=== PATIENT | male | born 1940 | race Caucasian/White ===

== ENCOUNTER → 2023-02-26 | Outpatient (CLI) | payer MEDICARE, SELFPAY ==
[2023-02-26 12:13] LABS: Absolute Lymphocyte Count 1.07 X10^3/uL (0.83-4.51); Absolute Neutrophil Count 5.6 X10^3/uL (2.0-7.7); Basophil# 0.02 X10^3/uL; Basophil% 0.3 % (0-1); Eosinophil# 0.11 X10^3/uL; Eosinophils% 1.5 % (0-5); Hematocrit 45.6 % (40-54); Hemoglobin 14.5 g/dL (13.0-16.5); Lymphocyte # 1.07 X10^3/ul (0.83-4.51); Lymphocyte % 14.2 % (19-41); Mean Corp Hgb Conc 31.8 g/dL (32-36); Mean Corpuscular Hgb 31.5 pg (27.0-32.0); Mean Corpuscular Volume 99.1 fL (80-94); Mean Platelet Vol. 10.2 fl (6.2-12.0); Monocyte# 0.78 X10^3/uL; Monocyte% 10.3 % (0-10); NRBC Flagged by Analyzer 0 % (0-5); Neutrophil # 5.55 X10^3/uL (2.7-7.7); Neutrophil % 73.4 % (47-70); POSITIVE COUNT YES; Platelet Count 98 K/mm3 (150-450); RBC Distribution Width CV 13.1 % (11.6-14.6); RBC Distribution Width SD 47.4 fl (35.1-43.9); White Blood Count 7.6 K/mm3 (4.4-11.0)
[2023-02-26 12:15] LABS: Differential Indicated SCAN CRITERIA MET
[2023-02-26 12:55] LABS: AST(SGOT) 17 U/L (15-37); Alanine Aminotransfer ALT/SGPT 24 U/L (16-61); Albumin, Serum 3.7 g/dL (3.2-5.0); Alkaline Phosphatase 75 U/L (45-117); Anion Gap 9 (5-15); BUN 17 mg/dL (7-18); BUN/Creat Ratio 13.1 RATIO (10-20); Calcium,Total 9.7 mg/dL (8.5-10.1); Chloride 105 mmol/L (98-107); Cholesterol 109 mg/dL (200); EST Glomerular Filtration Rate 56 mL/min (>60); Est Glom Filt Rate - Afr Amer 68 mL/min (>60); Globulin 3.6 g/dL (2.2-4.2); Glucose 128 mg/dL (74-106); High Density Lipoprotein 36 mg/dL; Potassium 3.7 mmol/L (3.5-5.1); Protein, Total 7.3 g/dL (6.4-8.2); Sodium Level 140 mmol/L (136-145); Thyroid Stim Hormone (TSH) 1.01 uIU/mL (0.358-3.74); Triglycerides 119 mg/dL; Very Low Density Lipoprotein 24 mg/dL (5-40)
[2023-02-26 13:26] LABS: Hemoglobin A1c 6.1 % (3.8-5.6)
[2023-02-26 13:35] LABS: Differential Comment SCANNED; Platelet Estimate MOD DEC (ADEQ)
== END | disposition home or self-care (01) ==
LOC: BIMLAB 08:33
PROVIDERS: PCP Internal Medicine; Referring Provider Nurse Practitioner; Visit Provider Nurse Practitioner
DX: E03.9 Hypothyroidism, unspecified (principal); E11.9 Type 2 diabetes mellitus without complications
CPT/HCPCS: 36415; 80053; 80061; 83036; 84443; 85025

== ENCOUNTER → 2023-04-12 | Outpatient (CLI) | payer MEDICARE, SELFPAY ==
[2023-04-12 15:08] LABS: Bacteria 0 SEEN /hpf (None Seen); Mucous, Urine 0 SEEN /hpf (<or=2+); Red Blood Cells-Urine 0 SEEN /hpf (0-5); Squamous Epithelial Cells - UA 0 SEEN /hpf (0-5)
[2023-04-12 16:53] LABS: Color, Urine Yellow (Yellow); Glucose, Dipstick Normal (Normal); Ketone-Dipstick 5 mg/dl (Negative); Leukocyte Esterase-Dipstick Negative /ul (Negative); Nitrite-Dipstick Negative (Negative); Occult Blood-Urine Negative /ul (Negative); Protein-Dipstick 30 mg/dl (Negative); Specific Gravity, Urine 1.025 (1.002-1.030); Urine Bilirubin Dipstick Negative (Negative); Urine Clarity Sl. Cloudy (Clear); Urine Urobilinogen 1 mg/dl (Normal)
[2023-04-12 17:14] LABS: White Blood Cells 0-5 SEEN /hpf (0-5)
== END | disposition home or self-care (01) ==
LOC: LABSPEC 15:07
PROVIDERS: PCP Internal Medicine; Visit Provider Internal Medicine
DX: E11.9 Type 2 diabetes mellitus without complications (principal)
CPT/HCPCS: 81001; 82043; 82570

== ENCOUNTER → 2023-05-24 | Outpatient (CLI) | payer MEDICARE, SELFPAY ==
[2023-05-24 15:25] LABS: Absolute Lymphocyte Count 1.12 X10^3/uL (0.83-4.51); Absolute Neutrophil Count 5.2 X10^3/uL (2.0-7.7); Basophil# 0.03 X10^3/uL; Basophil% 0.4 % (0-1); Eosinophil# 0.15 X10^3/uL; Hematocrit 43.7 % (40-54); Hemoglobin 14.2 g/dL (13.0-16.5); Lymphocyte # 1.12 X10^3/ul (0.83-4.51); Lymphocyte % 14.9 % (19-41); Mean Corp Hgb Conc 32.5 g/dL (32-36); Mean Corpuscular Hgb 31.5 pg (27.0-32.0); Mean Corpuscular Volume 96.9 fL (80-94); Mean Platelet Vol. 10.2 fl (6.2-12.0); Monocyte# 0.96 X10^3/uL; Monocyte% 12.7 % (0-10); NRBC Flagged by Analyzer 0 % (0-5); Neutrophil # 5.23 X10^3/uL (2.7-7.7); Neutrophil % 69.5 % (47-70); Platelet Count 115 K/mm3 (150-450); RBC Distribution Width CV 12.9 % (11.6-14.6); RBC Distribution Width SD 46.1 fl (35.1-43.9); Red Blood Count 4.51 M/mm3 (4.6-6.2); White Blood Count 7.5 K/mm3 (4.4-11.0)
[2023-05-24 15:41] LABS: Magnesium 1.8 mg/dL (1.6-2.6); PSA,Total- Diagnostic 6.69 ng/mL (0.0-4.0)
[2023-05-24 16:07] LABS: Vitamin D,25 Hydroxy 41.6 ng/mL
== END | disposition home or self-care (01) ==
LOC: BIMLAB 13:59
PROVIDERS: PCP Internal Medicine; Referring Provider Internal Medicine; Visit Provider Internal Medicine
DX: E55.9 Vitamin D deficiency, unspecified (principal); E11.9 Type 2 diabetes mellitus without complications; N40.0 Benign prostatic hyperplasia without lower urinary tract symptoms
CPT/HCPCS: 36415; 82306; 83735; 84153; 85025

== ENCOUNTER → 2023-08-23 | Outpatient (CLI) | payer MEDICARE, SELFPAY ==
[2023-08-23 15:11] LABS: PSA,Total- Diagnostic 6.91 ng/mL (0.0-4.0)
== END | disposition home or self-care (01) ==
LOC: BIMLAB 14:08
PROVIDERS: PCP Internal Medicine; Referring Provider Internal Medicine; Visit Provider Internal Medicine
DX: N40.0 Benign prostatic hyperplasia without lower urinary tract symptoms (principal)
CPT/HCPCS: 36415; 84153

== ENCOUNTER → 2023-11-24 | Outpatient (CLI) | payer MEDICARE, SELFPAY ==
[2023-11-24 15:16] LABS: Absolute Lymphocyte Count 0.87 X10^3/uL (0.83-4.51); Absolute Neutrophil Count 5.8 X10^3/uL (2.0-7.7); Basophil# 0.02 X10^3/uL; Basophil% 0.3 % (0-1); Eosinophil# 0.06 X10^3/uL; Eosinophils% 0.8 % (0-5); Hematocrit 45.1 % (40-54); Lymphocyte # 0.87 X10^3/ul (0.83-4.51); Lymphocyte % 11.3 % (19-41); Mean Corp Hgb Conc 33.3 g/dL (32-36); Mean Corpuscular Hgb 31.9 pg (27.0-32.0); Monocyte# 0.89 X10^3/uL; Monocyte% 11.6 % (0-10); NRBC Flagged by Analyzer 0 % (0-5); Neutrophil # 5.82 X10^3/uL (2.7-7.7); Neutrophil % 75.6 % (47-70); Platelet Count 109 K/mm3 (150-450); RBC Distribution Width CV 12.7 % (11.6-14.6); RBC Distribution Width SD 45.1 fl (35.1-43.9); White Blood Count 7.7 K/mm3 (4.4-11.0)
[2023-11-24 16:06] LABS: ALB/GLOB Ratio 1.1 RATIO (0.9-2.4); AST(SGOT) 14 U/L (15-37); Alanine Aminotransfer ALT/SGPT 20 U/L (16-61); Albumin, Serum 3.9 g/dL (3.2-5.0); Alkaline Phosphatase 69 U/L (45-117); Anion Gap 7 (5-15); BUN 18 mg/dL (7-18); BUN/Creat Ratio 14.5 RATIO (10-20); Calcium,Total 9.7 mg/dL (8.5-10.1); Chloride 105 mmol/L (98-107); Cholesterol 111 mg/dL (200); Creatinine, Serum 1.24 mg/dL (0.70-1.30); EST Glomerular Filtration Rate 59 mL/min (>60); Est Glom Filt Rate - Afr Amer 72 mL/min (>60); Globulin 3.4 g/dL (2.2-4.2); Glucose 113 mg/dL (74-106); High Density Lipoprotein 45 mg/dL; Potassium 4.3 mmol/L (3.5-5.1); Protein, Total 7.3 g/dL (6.4-8.2); Sodium Level 139 mmol/L (136-145); Triglycerides 109 mg/dL; Very Low Density Lipoprotein 22 mg/dL (5-40)
== END | disposition home or self-care (01) ==
LOC: BIMLAB 14:15
PROVIDERS: PCP Internal Medicine; Referring Provider Physician Assistant; Visit Provider Physician Assistant
DX: E11.9 Type 2 diabetes mellitus without complications (principal); E03.9 Hypothyroidism, unspecified
CPT/HCPCS: 36415; 80053; 80061; 84443; 85025

== ENCOUNTER → 2024-02-24 | Outpatient (CLI) | payer MEDICARE, SELFPAY ==
[2024-02-24 17:08] LABS: Hemoglobin A1c 6.4 % (3.8-5.6)
== END | disposition home or self-care (01) ==
LOC: BIMLAB 14:08
PROVIDERS: PCP Internal Medicine; Referring Provider Internal Medicine; Visit Provider Internal Medicine
DX: E11.9 Type 2 diabetes mellitus without complications (principal)
CPT/HCPCS: 36415; 83036; 84443

== ENCOUNTER → 2024-05-11 | Outpatient (CLI) | payer MEDICARE, SELFPAY ==
[2024-05-11 13:12] LABS: PSA,Total- Diagnostic 7.86 ng/mL (0.00-4.00)
== END | disposition home or self-care (01) ==
LOC: MTLAB 11:00
PROVIDERS: PCP Internal Medicine; Referring Provider Nurse Practitioner; Visit Provider Nurse Practitioner
DX: R97.20 Elevated prostate specific antigen [PSA] (principal)
CPT/HCPCS: 36415; 84153

== ENCOUNTER → 2024-05-24 | Outpatient (CLI) | payer MEDICARE, SELFPAY ==
[2024-05-24 17:08] LABS: Thyroid Stim Hormone (TSH) 0.369 uIU/mL (0.300-4.200)
== END | disposition home or self-care (01) ==
LOC: BIMLAB 14:36
PROVIDERS: PCP Internal Medicine; Referring Provider Internal Medicine; Visit Provider Internal Medicine
DX: E03.9 Hypothyroidism, unspecified (principal)
CPT/HCPCS: 36415; 84443

== ENCOUNTER → 2024-05-29 | Outpatient (CLI) | payer MEDICARE, SELFPAY ==
--- NOTE | 2024-05-29 13:00 | PROSBIL_PTH ---
PATIENT: DAMIAN BERMUDEZ LOC: [facility] U#:[id number] AGE/SX: 83/M ROOM: RE05/29/[address]: Dr. Uriel Harvey MD : 1940 BED: DIS: 05/29/2024 SPEC #: [id number] RECD: 05/29/24 16:04 STATUS: BRETT REMI #: [id number] BRITANY: 05/29/24 13:[address]: Uriel Harvey DEPT: SURGICAL PATHOLOGY RECD BY: Danny Harris ENTERED: 05/29/24 16:04 SP TYPE: PROST BX COLLIN DR: Dr. Loni Reeder MD Tissues: A - PROSTATE RIGHT B - PROSTATE RIGHT C - PROSTATE RIGHT D - PROSTATE LEFT E - PROSTATE LEFT F - PROSTATE LEFT Procedures: PROSTATE BX Immunohistochemical Stains HEADER OPERATION: Prostate biopsy PRE-OP DIAGNOSIS: Elevated PSA TISSUE SUBMITTED: A - Right apex, B - Right mid, C - Right base, D - Left apex, E - Left mid, F - Left base MICROSCOPIC DIAGNOSIS A. Prostate, right apex, biopsy: - Benign prostate tissue with atrophy. B. Prostate, right mid, biopsy: - Benign prostate tissue with atrophy C. 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 D. Prostate, left apex, biopsy: - Adenocarcinoma [place] 3+3=6, 1/1 core, involving 15% of the tissue - see Comment. E. Prostate, left mid, biopsy: - Benign prostate tissue with atrophy and mild acute inflammation - IHC for [id number] supports the diagnosis. F. Prostate, left base, biopsy: - Benign prostate tissue COMMENT C, D) The container and block/slide labeling was confirmed. MICROSCOPIC DESCRIPTION Slides are reviewed. All matched controls reacted appropriately. These tests were developed and their performance characteristics determined by [facility]. They may not have been cleared or approved by the [place]. Food and Drug Administration. The FDA has determined that such clearance or approval is not necessary. The above immunohistochemical/dualISH markers are ordered and reviewed by the Pathologist. GROSS DESCRIPTION A. Received in formalin in a container labeled with the patient's name, date of , and RA is a 0.6 x 0.1 cm white and wispy core biopsy of soft tissue. Submitted in toto in A1. B. Received in formalin in a container labeled with the patient's name, date of , and RM is a 1.0 x 0.1 cm white and wispy core biopsy of soft tissue. Submitted in toto in B1. C. Received in formalin in a container labeled with the patient's name, date of , and RB is a 0.7 x 0.1 cm white and wispy core biopsy of soft tissue. Submitted in toto in C1. D. Received in formalin in a container labeled with the patient's name, date of , and LA is a 0.7 x 0.1 cm white and wispy core biopsy of soft tissue. Submitted in toto in D1. E. Received in formalin in a container labeled with the patient's name, date of , and LM is a 1.5 x 0.1 cm white and wispy core biopsy of soft tissue. Submitted in toto in E1. F. Received in formalin in a container labeled with the patient's name, date of , and LB is a 1.7 x 0.1 cm white and wispy core biopsy of soft tissue. Submitted in toto in F1. [facility] 06/02/2024 CPT:[id number]
== END | disposition home or self-care (01) ==
LOC: LABSPEC 15:37
PROVIDERS: PCP Internal Medicine; Referring Provider Urology; Visit Provider Urology
DX: R97.20 Elevated prostate specific antigen [PSA] (principal)
CPT/HCPCS: 88305; 88342; G0416

== ENCOUNTER 2024-07-04 10:30 | Outpatient (RCR) | payer MEDICARE, SELFPAY ==
--- NOTE | 2024-06-06 14:23 | HP.PTEVAL_ITS ---
Patient's Visit Information Visit Information Visit Information: DAMIAN BERMUDEZ is a 83 year old M referred to Physical Therapy by Dr. Loni Reeder MD with a diagnosis of WEAKNESS , FALL. Date of Evaluation: 06/06/24 Physical Therapist: Israel Lobato, PT, Cert MDT, OCS Visit Plan Frequency: 2x /Week Duration: 4 Weeks Plan: OKAY TO USE W/C TO BRING BACK TO DEPT PT INTERVENTIONS BALANCE TRAINING ,GAIT TRAINING , ENDURANCE EX'S ,STRENGTHENING EX'S,AND FUNCTIONAL STRENGTHENING Subjective Subjective: This 83 y/o male presents to physical therapy with weakness and falls. Patient seen DR and recommended PT .Patient has multiple comorbities with h/o CVA last year and Alzheimer's . Patient also recently diagnosed with Prostate. Patient has dizziness but no recent falls. Patient walked backed and became weak thus needed w/c .Patient uses FWW at home. Patient has tub shower set up 2 story home 2 steps rails. Patient has assist with ADL's and bathing. Patient is able to dress self. Patient has some memory deficit. Patient denies paresthesia/tingling in legs. Patient condition affects QOL and function /gait. SOCIAL: Objective Objective: POSTURE: mild forward posture hips/knees /flexed GAIT : 2 point gait unsteady gait became ( stopped and gait w/c due to patient weak when walking back thus discussed with patient and spouse using w/c to come back to Dept) NEURO: denies paresthesia/tingling BALANCE: fair with cane FLEXABILITY: hamstrings min tight MMT: quads/hams 4/5 ,hip flexion 4-/5,ankle 4/5 Balance/Special Test Scores CATSIB Score (Max score 120 seconds): 53 Lower Extremity Functional Score: 16 Goals Goal 1:: Patient to be I with HEP for strengthening Goal Time Frame: 4-6 Weeks Goal 2:: Patient to improve CTSIBE by 5-10 points to improve balance Goal Time Frame: 4-6 Weeks Goal 3:: Patient to improve LFES score by 5 points to improve QOL Goal Time Frame: 4-6 Weeks Goal 4:: Patient be able to walk 150 ft with fww/cane to promote functional endurance Goal Time Frame: 4-6 Weeks Goal 5:: Patient jacob demonstrate 40 % improvement with function and agit Goal Time Frame: 4-6 Weeks Rehabilitation Potential Physical Therapy Diagnosis: This patient has multiple complexity issues with h/o CVA and Alzheimer's with weakness ,falls ,decrease balance impairs ADL and needs some assist at home thus will benefit from skilled PT Rehabilitation Potential: Good Anticipated Interventions Patient/Client Instruction: Educate patient on: Condition and Plan of Care For the Purpose of:: To decrease pain, To improve muscle performance and motor function, To improve ability to perform ADL's, To increase tolerance to activity/condition/position, To improve ability of physical actions for home/community/work/leisure, To improve gait and locomotor functions, To improve endurance, To improve balance, To improve safety with gait, To assume or resume ADL's, To reduce risk of recurrence and To improve tolerance to ADL's Therapeutic Exercise to Include: Strength training, Endurance training, Balance training, Gait and locomotor training and Active ROM Comment: QUADS/HAMS/HIP For the Purpose of:: To improve muscle performance and motor function, To improve ability to perform ADL's, To increase tolerance to activity/condition/position, To improve ability of physical actions for home/community/work/leisure, To improve gait and locomotor functions, To improve endurance, To improve balance, To reduce risk of recurrence and To improve tolerance to ADL's Text: Thank you for the opportunity to evaluate your patient. For Medicare and Medicare HMO plans, please review the plan of care and approve it. It will need to be FAXED BACK to us at [phone] for Medicare purposes. For Medicare only, by signing this I certify the plan of care. Please let me know if there are questions or concerns regarding this plan of care. Physician Signature:_ Date:
--- NOTE | 2024-10-23 16:29 | HP.PTDCNRP_ITS ---
Patient Information Patient Information: DAMIAN BERMUDEZ was seen in my office for initial evaluation on 06/06/24. The following Plan of Care was established for this patient: POC Established Initial Frequency: 2x /Week Initial Duration: 4 Weeks Anticipated Interventions Patient/Client Instruction: Educate patient on: Condition and Plan of Care For the Purpose of:: To decrease pain, To improve muscle performance and motor function, To improve ability to perform ADL's, To increase tolerance to activity/condition/position, To improve ability of physical actions for home/com munity/work/leisure, To improve gait and locomotor functions, To improve endurance, To improve balance, To improve safety with gait, To assume or resume ADL's, To reduce risk of recurrence and To improve tolerance to ADL's Therapeutic Exercise to Include: Strength training, Endurance training, Balance training, Gait and locomotor training and Active ROM For the Purpose of:: To improve muscle performance and motor function, To improve ability to perform ADL's, To increase tolerance to activity/condition/position, To improve ability of physical actions for home/community/work/leisure, To improve gait and locomotor functions, To improve endurance, To improve balance, To reduce risk of recurrence and To improve tolerance to ADL's Last Seen Last Seen: This patient was last seen in our office . Pertinent comments regarding their Physical therapy will appear below: Patient seen for PT for weakness and balance thus is d/c after 8 visits At this point I will be discontinuing this patient from physical therapy. I would be happy to see this patient again in the future if found appropriate by the physician. Thank you! Israel Lobato, PT, Cert MDT, OCS Balance/Gait/Functional tests Balance/Special Test Scores Functional Gait Assessment Score: 16 % Disability: 46.6700 CATSIB Score (Max score 120 seconds): 53 Lower Extremity Functional Score: 16 TUG Test Time Seconds: 11.21 Tug Test: <20 sec.=mostly independent 30 Second Chair Rise Test Seconds: 12
== END 2024-07-04 19:00 | disposition home or self-care (01) ==
LOC: PT 10:30
PROVIDERS: PCP Internal Medicine; Referring Provider Internal Medicine; Visit Provider Internal Medicine
DX: R53.1 Weakness (principal)
CPT/HCPCS: 97110; 97162; 97530

== ENCOUNTER 2024-08-13 12:15 | Inpatient (IN) | payer MEDICARE, SELFPAY ==
[2024-08-13 12:20] VITALS: BP 144/70; PULSE 46; RESP 16; TEMP 36.3; O2SAT 97
--- OUTSIDE RECORDS SUMMARY | 2024-08-13 12:24 | XMS RPT_ITS | CCD ---
Author Organization [facility] Care Team Providers Care Thread Trimmer Name Role Phone Naveen Rasmussen Unavailable Naveen Rasmussen Unavailable Naveen Rasmussen Unavailable Unavailable Naveen Rasmussen MD Primary Care Provider [phone] Naveen Rasmussen Yoseph Davis Unavailable Unavailable Naveen Rasmussen MD Primary Care Provider Naveen Rasmussen Primary Care Provider Grady, Dr. Naveen Griffiths Attending Unavaila ble Grady, Dr. Naveen Griffiths Primary Care Unavaila ble Luis Beasley Attending Unavaila ble Grady, Dr. Naveen Griffiths Primary Care Unavaila ble Luis Beasley Attending Unavaila ble Grady, Dr. Naveen Griffiths Primary Care Unavaila ble Grady, Dr. Naveen Griffiths Primary Care Unavaila ble Luis Beasley Attending Unavaila ble Grady, Dr. Naveen Griffiths Primary Care Unavaila ble Luis Beasley Attending Unavaila ble Grady, Dr. Naveen Griffiths Primary Care Unavaila ble Luis Beasley Attending Unavaila ble Grady, Dr. Naveen Griffiths Primary Care Unavaila ble Yoseph Davis Attending Unavailable Grady, Dr. Naveen Griffiths Primary Care Unavaila ble Luis Beasley Attending Unavaila ble Grady, Dr. Naveen Griffiths Primary Care Unavaila ble Luis Beasley Attending Unavaila ble Luis Beasley Attending Unavaila ble [place]luke, Dr. Naveen Griffiths Primary Care Unavaila ble Luis Beasley Attending Unavaila ble [place], Dr. Naveen Griffiths Primary Care Unavaila ble Luis Beasley Attending Unavaila ble [place], Dr. Naveen Griffiths Primary Care Unavailguillermina Rasmussen MD, Naveen Griffiths Primary Care Provider [phone] Naveen Rasmussen Primary Care Provider Arthur PAT, Moi Norwood Primary Care Provider Grady PAT, Naveen Griffiths Primary Care Provider [facility], [facility] Consulting Unav breann GIBSON, MOI NORWOOD Primary Care Unavailable KAMILAH RAMOS Referring Unavailable KAYLA, ELLEN BRADLEY Admitting Unavailable ISHAN, SARAH WALKER Attending Unavaillita ROSE, AZAM HANLEY Consulting Unavai itzel [facility]L ZHANG Attending Unavaillita GIBSON, MOI NORWOOD Primary Care Unavailable KEITH Mckee Attending Provider [phone] Dr. Moi Gibson Primary Care Provider Dr. Moi Gibson Attending Provider [phone] Dr. Moi Gibson Referring Provider [phone] KEITH Mckee Attending Provider [phone] Dr. Moi Gibson Primary Care Provider Dr. Moi Gibson Attending Provider [phone] Dr. Moi Gibson Referring Provider [phone] Moi Gibson Primary Care Provider [phone] [place] PharmD, Ellen Unavailable Shukri PAT, Juan Barnett Unavailable Dr. Moi Gibson MD Primary Care Provider [phone] Dr. Moi Gibson MD Attending Provider Dr. Moi Gibson MD Referring Provider Tammy Epstein Attending Provider Tammy Epstein Referring Provider Candice PAT, Dr. Uriel Dockery Attending Provider Candice PAT, Dr. Uriel Dockery Referring Provider Arthur PAT, Moi Mills Primary Care Provider COOPERRIDER II, SILVANA H Referring Unavailabl e COOPERRIDER II, SILVANA H Attending Unavailabl e Pierson, Moi Primary Care Unavailable Uriel Harvey Attending Unavailable CandiceUriel Referring Unavailable Arthur, Moi Attending Unavailable Arthur, Moi Referring Unavailable Pierson, Moi Primary Care Unavailable Pierson, Moi Primary Care Unavailable Pierson, Moi Attending Unavailable Arthur, Moi Referring Unavailable Arthur, Moi Primary Care Unavailable Marcio Gastelum Attending Unavailable Marcio Gastelum Referring Unavailable Arthur, Moi Attending Unavailable Pierson, Moi Referring Unavailable Arthur, Moi Primary Care Unavailable Arthur, Moi Attending Unavailable Pierson, Moi Referring Unavailable Arthur, Moi Primary Care Unavailable Pierson, Moi Primary Care Unavailable Arthur, Moi Attending Unavailable Pierson, Moi Referring Unavailable Arthur, Moi Primary Care Unavailable Marcio Gastelum Attending Unavailable Pierson, Moi Referring Unavailable Pierson, Moi Primary Care Unavailable Arthur, Moi Attending Unavailable Arthur, Moi Referring Unavailable Tammy Epstein Attending Unavailable [place] Referring Unavailable Arthur, Moi Primary Care Unavailable Arthur, Moi Primary Care Unavailable Arthur, Moi Attending Unavailable Pierson, Moi Referring Unavailable Pierson, Moi Attending Unavailable Pierson, Moi Referring Unavailable Arthur, Moi Primary Care Unavailable Arthur PAT, Moi Enma Primary Care Provider IRA RICCI Attending Unavailab le ARTHUR, MOI ENMA Primary Care Unavailable PENNIE GALVEZ Attending Unavailab le ARTHUR, MOI ENMA Primary Care Unavailable DAPHNE FISCHER Attending Unavailable ARTHUR, MOI ENMA Primary Care Unavailable MIKO COX Attending Unavailable ARTHUR, MOI NEMA Primary Care Unavailable NO, PHYSICIAN Primary Care Unavailable ALONZO AGUERO Attending Unavaila ble ARTHUR, MOI ENMA Primary Care Unavailable ASHLEY TOWNSEND Referring Unavailabl e ARTHUR, MOI ENMA Primary Care Unavailable PENNIE GALVEZ Attending Unavailab le MIKI, PENNIE BORDEN Referring Unavailab le ARTHUR, MOI ENMA Primary Care Unavailable URADU, VANDA CARTER Attending Unavailable URADU, VANDA CARTER Referring Unavailable ARTHUR, MOI ENMA Primary Care Unavailable URADU, VANDA CARTER Attending Unavailable URADU, VANDA CARTER Referring Unavailable [facility] Consulting Adelaide MCCARTNEYLAY, MOI ENMA Primary Care Unavailable TACO RAYMOND Attending Unavailable WARD CRUZ Admitting Unavailable Medications Current Medications Medication Drug Class(es) Dates Sig (Normalized) Sig (Original) amoxicillin 875 mg / clavulanate 125 mg oral tablet (1 source) Penicillin-class Antibacterial Start: 03-31-2021 End: 04-04-2021 take 1 tablet by mouth twice daily at mealtime amoxicillin-clavul anate 875 mg-125 mg oral tablet ; 1 tab(s) orally 2 times a day x 5 days . Take with food. Quantity: 10 Refills: 0 Ordered: 31-Mar-2021 Yoseph Davis Start: 31-Mar-2021 End: 04-Apr-2021 Generic Substitution Allowed Comments: Finish all this medication unless otherwise directed by prescriber.Take with food or milk. Comment on above: Finish all this medi cation unless otherwise directed by prescriber.Take with food or milk. azithromycin 250 mg oral tablet (1 source) Macrolide Antimicrobial Start: 03-31-2021 End: 04-04-2021 azithromycin 250 mg oral tablet ; 2 tab(s) orally once a day on day 1, then 1 tablet orally on days 2-5 Quantity: 1 Refills: 0 Ordered: 31-Mar-2021 Yoseph Davis Start: 31-Mar-2021 End: 04-Apr-2021 Generic Substitution Allowed Comments: Do not take dairy products, antacids, or iron preparations within one hour of this medication.Finish all this medication unless otherwise directed by prescriber. Comment on above: Do not take dairy pr oducts, antacids, or iron preparations within one hour of this medication.Finish all this medication unless otherwise directed by prescriber. benoxinate hydrochloride 4 mg/ml / fluorescein sodium 3 mg/ml ophthalmic solution (2 sources) Diagnostic Dye Start: 06-21-2024 End: 06-21-2024 fluorescein-benoxi jordan 0.3-0.4 % 1 drop (FLURESS) Start: 06-21-2024 End: 06-21-2024 1 drop, BOTH EYES, DIRECT ED, Starting on Wed06/21/24 at 1200, Until Wed06/21/24 at 2359, Administer for applanation tonometry. In the event of a Fluress shortage, administer [place]-Fluor 1 drop into both eyes as directed for applanation tonometry benzonatate 100 mg oral capsule (1 source) Non-narcotic Antitussive Start: 07-17-2024 End: 07-28-2024 take 1 capsule by mouth three times daily as needed for cough benzonatate (TESSALON) 100 MG capsule Take 1 (one) capsule (100 mg total) by mouth 3 (three) times a day as needed for cough . 20 capsule 07/17/2024 07/28/2024 Active dofetilide 0.25 mg oral capsule (20 sources) Antiarrhythmic Start: 02-26-2023 End: 02-24-2024 take 1 capsule by mouth every twelve hours dofetilide (TIKOSYN) 250 mcg capsule Take 1 capsule by mouth every 12 hours. 04/17/2023 Active Start: 02-26-2023 Dofetilide Act afia MCG PO February 26, 2023 1:00am Start: 01-15-2023 End: 01-25-2023 250 mcg, Oral, Every 12 hour s scheduled, First dose (after last modification) on Wed01/15/23 at 2100 If QTc is greater than 500 msec or CrCl is less than 20 mL/min, hold dofetilide and contact prescriber, unless otherwise directed. Provide Tikosyn Education Guide with first dose (see link). Ensure doses are at least 10 hours apart Select One: Continuation of Ongoing Treatment Ordering restricted to cardiology prescriber: OTHER Provide rationale for ordering outside of [facility] approved prescriber restrictions: Home medication for patient that was admitted to [facility] Start: 01-06-2023 End: 01-15-2023 250 mcg, Oral, Every 12 hour s scheduled, First dose on Wed01/06/23 at 1000 If QTc is greater than 500 msec or CrCl is less than 20 mL/min, hold dofetilide and contact prescriber, unless otherwise directed. Provide Tikosyn Education Guide with first dose (see link). Ensure doses are at least 10 hours apart Select One: Continuation of Ongoing Treatment Ordering restricted to cardiology prescriber: OTHER Provide rationale for ordering outside of [facility] approved prescriber restrictions: Home medication for patient that was admitted to [facility] Start: 06-25-2022 End: 01-21-2024 take 1 capsule by mouth every twelve hours dofetilide (TIKOSYN) 250 MCG capsule Take 1 (one) capsule (250 mcg total) by mouth every 12 (twelve) hours . 180 capsule 1 07/06/2023 01/21/2024 Discontinued Start: 03-30-2022 take 1 capsule by [facility] every twelve hours dofetilide (TIKOSYN) 250 MCG capsule Take 1 (one) capsule (250 mcg total) by mouth every 12 (twelve) hours . 180 capsule 1 03/30/2022 Active Start: 03-13-2022 End: 03-13-2022 take 1 capsule by mouth every twelve hours dofetilide (TIKOSYN) 250 MCG capsule Take 1 (one) capsule (250 mcg total) by mouth every 12 (twelve) hours . 180 capsule 1 03/13/2022 Active Start: 03-12-2022 End: 03-13-2022 dofetilide (TIKOSYN) capsule 250 mcg Start: 03-09-2022 End: 03-11-2022 dofetilide (TIKOSYN) capsule 500 mcg esomeprazole 40 mg delayed release oral capsule (20 sources) Proton Pump Inhibitor Start: 05-22-2023 take 1 capsule by mouth once esomeprazole (NEXIUM) 40 mg capsule Take 1 capsule by mouth every afternoon. 05/22/2023 Active Start: 02-26-2023 End: 05-25-2023 Esomeprazole Magnesium Disco ntinued MG PO February 26, 2023 1:00am May 25, 2023 10:53am Start: 02-26-2023 Esomeprazole M agnesium Active MG PO February 26, 2023 12:00am FLUoxetine 40 mg oral capsule (20 sources) Serotonin Reuptake Inhibitor Start: 05-24-2024 take 1 capsule by mouth once daily Fluoxetine 40 mg capsule Active 40 mg PO DAILY 90 May 24, 2024 1:52pm Start: 01-15-2023 End: 05-24-2024 take 1 capsule by mouth once daily FLUoxetine (PROZAC) 20 MG capsule Take 1 (one) capsule (20 mg total) by mouth daily Start: 01/26/23. 30 capsule 01/26/2023 Active furosemide 20 mg oral tablet (20 sources) Loop Diuretic Start: 12-29-2023 End: 03-28-2024 furosemide (Lasix) 20 MG tablet Indications: Leg swelling Take 1 (one) tablet (20 mg total) by mouth daily as needed Worsening leg swelling, weight gain of more than 5 pounds overnight, or shortness of breath . 90 tablet 12/29/2023 Active Start: 01-15-2023 End: 01-25-2023 take 20 mg by mouth once daily 20 mg, Oral, Daily, [facility] dose (after last modification) on 01/16/23 at 0900 Start: 01-07-2023 End: 01-14-2023 take 40 mg by mouth once daily 40 mg, Oral, Daily, [facility]ir [facility] dose on Susie 01/07/23 at 1130 Start: 03-10-2022 End: 03-13-2022 take 40 mg by mouth once daily 40 mg, Oral, Daily, [facility]ir [facility] dose on 03/10/22 at 0900 Start: 09-25-2021 End: 01-15-2023 take 2 tablets by mouth once daily furosemide (LASIX) 20 MG tablet Take 2 (two) tablets (40 mg total) by mouth daily . 60 tablet 2 09/25/2021 01/15/2023 Discontinued (Reorder (Suppress CancelRx Message to Pharmacy)) Start: 08-20-2016 furosemide (LA SIX) 20 mg tablet every 48 hours. 08/20/2016 Active take 1 tablet by tip th once daily furosemide (LASIX) 20 MG tablet Take 20 mg by mouth daily . 0 Active Comment on above: every 48 hours. lisinopril 10 mg oral tablet (20 sources) Angiotensin Converting Enzyme Inhibitor Start: 02-26-2023 Lisinopril Active MG PO February 26, 2023 1:00am Start: 01-07-2023 End: 01-15-2023 take 10 mg by mouth once daily at lunch 10 mg, Oral, Daily with lunch, First dose on Susie 01/07/23 at 1200 Start: 08-25-2021 End: 05-24-2024 take 1 tablet by mouth once lisinopril (ZESTRIL) 10 mg tablet Take 1 tablet by mouth every afternoon. 06/04/2023 Active magnesium oxide 400 mg oral tablet (20 sources) Start: 01-06-2023 End: 07-06-2023 take 1 tablet by mouth once daily magnesium oxide (MAG-OX) 400 mg (241.3 mg magnesium) tablet Take 1 (one) tablet (400 mg total) by mouth daily . 30 tablet 0 01/25/2023 02/24/2023 Active magoxide (3 sources) Start: 02-26-2023 magoxide Activ e PO February 26, 2023 1:00am Start: 02-26-2023 magoxide Activ e PO February 26, 2023 12:00am magoxide 400 mg (3 sources) Start: 02-26-2023 magoxide 400 m g Active PO February 26, 2023 1:00am mecobalamin 1 mg sublingual tablet (6 sources) Start: 02-26-2023 Mecobalamin (V itamin B12) 1,000 mcg tablet,disintegrating Active 1000 ug SL DAILY February 26, 2023 1:[address]am place tablet under tongue and allow to dissolve for at least30 secs before swallowing Start: 02-26-2023 Mecobalamin (V itamin B12) Active 1000 MCG SL DAILY February 26, 2023 1:[address]am place tablet under tongue and allow to dissolve for at least30 secs before swallowing 24 hr metFORMIN hydrochloride 500 mg extended release oral tablet (20 sources) Biguanide Start: 11-24-2023 End: 05-24-2024 take 1 tablet by mouth twice daily Metformin 500 mg tablet extended release 24 hr Active 500 mg PO TWICE A DAY 180 90 May 24, 2024 1:52pm Start: 02-26-2023 Metformin Acti ve MG PO February 26, 2023 1:00am Start: 07-01-2021 End: 01-06-2023 metFORMIN (GLUCOPHAGE) 500 M G tablet Take 1 (one) tablet (500 mg total) by mouth 2 (two) times a day with meals Hold until repeat chem 7 . 60 tablet 0 07/01/2021 01/06/2023 Discontinued (Error) Start: 10-21-2016 End: 11-24-2023 metFORMIN ER (GLUCOPHAGE XR) 500 mg 24 hr tablet 10/21/2016 Active End: 06-12-2021 take 1 tablet by mouth twice daily at mealtime metFORMIN (GLUCOPHAGE) 1000 MG tablet Take 1,000 mg by mouth 2 (two) times a day with meals . 0 06/12/2021 Discontinued Multivitamin (Daily Multi-Vitamin) tablet (6 sources) Start: 02-26-2023 Multivitamin ( Daily Multi-Vitamin) tablet Active 1 {tbl} PO DAILY February 26, 2023 1:00am Start: 02-26-2023 take 1 tablet by tip th once daily Multivitamin (Daily Multi-Vitamin) tablet Active 1 TABLET PO DAILY February 26, 2023 1:00am Start: 02-26-2023 take 1 tablet by tip th once daily Multivitamin (Daily Multi-Vitamin) tablet Active 1 TABLET PO DAILY February 26, 2023 12:00am 24 hr oxybutynin chloride 10 mg extended release oral tablet (7 sources) Cholinergic Muscarinic Antagonist Start: 11-24-2023 take 1 tablet by mouth once daily Oxybutynin Chloride 10 mg tablet extended release 24hr Active 10 mg PO daily November 24, 2023 12:00am Start: 09-27-2023 oxyBUTYnin (DI TROPAN-XL) 10 MG 24 hr tablet 09/27/2023 Active pantoprazole 40 mg delayed release oral tablet (20 sources) Proton Pump Inhibitor Start: 05-25-2023 End: 05-22-2024 take 1 tablet by mouth once daily pantoprazole DR (PROTONIX) 40 mg tablet Take 1 tablet by mouth once daily. 05/22/2024 Active Start: 01-07-2023 End: 01-25-2023 take 40 mg by mouth once daily 40 mg, Oral, Daily, Fir [facility] dose (after last modification) on 01/16/23 at 0900 DO NOT CRUSH OR CHEW. Start: 01-06-2023 End: 01-07-2023 pantoprazole (PROTONIX) inje ction 40 mg Start: 03-10-2022 End: 03-13-2022 take 40 mg by mouth once daily 40 mg, Oral, Daily, Fir st dose on Tu03/10/22 at 0900 DO NOT CRUSH OR CHEW. phenylephrine hydrochloride 25 mg/ml ophthalmic solution (1 source) alpha-1 Adrenergic Agonist Start: 05-07-2022 End: 05-07-2022 PHENYLephrine 2.5 % 1 Drop (AK-DILATE, MIRIAM-SYNEPHRINE) proparacaine hydrochloride 5 mg/ml ophthalmic solution (1 source) Local Anesthetic Start: 05-07-2022 End: 05-07-2022 proparacaine 0.5 % 1 Drop (ALCAINE) therapeutic multivitamin (THERAGRAN) tablet (20 sources) take 1 tablet by mouth once daily therapeutic multivitamin (THERAGRAN) tablet Take 1 (one) tablet by mouth daily . Active take 1 tablet by mouth once lily y therapeutic multivitamin (THERAGRAN) tablet Take 1 (one) tablet by mouth daily . 0 Suspended take 1 tablet by mouth once lily y therapeutic multivitamin (THERAGRAN) tablet Take 1 (one) tablet by mouth daily . 0 Active take 1 tablet by mouth once lily y therapeutic multivitamin (THERAGRAN) tablet Take 1 (one) tablet by mouth daily . 0 take 1 tablet by mouth once lily y therapeutic multivitamin (THERAGRAN) tablet Take 1 tablet by mouth daily . 0 Active tropicamide 10 mg/ml ophthalmic solution (3 sources) Anticholinergic Start: 06-21-2024 End: 06-21-2024 tropicamide 1 % 1 drop (MYDRIACYL) Start: 06-21-2024 End: 06-21-2024 1 drop, BOTH EYES, DIRECT ED, Starting on Wed06/21/24 at 1200, Until Wed06/21/24 at 2359, Administer for dilation Start: 05-07-2022 End: 05-07-2022 tropicamide 1 % 1 Drop (MYDR IACYL) Completed/Discontinued Medications Medication Drug Class(es) Dates Sig (Normalized) Sig (Original) acetaminophen 325 mg oral tablet (12 sources) Start: 01-15-2023 End: 01-25-2023 take 1 tablet by mouth every six hours as needed for pain and headache 975 mg, Oral, Every 6 hours PRN, mild pain, fever 100.4 F or greater, headaches, Starting on Wed01/15/23 at 1606 Start: 01-06-2023 End: 01-15-2023 take 1 tablet by mouth every four hours as needed for pain acetaminophen (TYLENOL) tablet 650 mg Start: 03-09-2022 End: 03-13-2022 take 1 tablet by mouth every four hours as needed for pain and headache acetaminophen (TYLENOL) tablet 650 mg Start: 08-24-2021 End: 03-09-2022 take 2 tablets by mouth every four hours as needed acetaminophen (TYLENOL) 325 MG tablet Take 2 (two) tablets (650 mg total) by mouth every 4 (four) hours as needed . 30 tablet 0 08/24/2021 03/09/2022 Discontinued (Error) albuterol 0.83 mg/ml inhalation solution (3 sources) beta2-Adrenergic Agonist Start: 01-15-2023 End: 01-25-2023 take 2.5 mg by inhalation every four hours as needed for wheezing 2.5 mg, Nebulization, Every 4 hours PRN (RT), wheezing, shortness of breath, Starting on Wed01/15/23 at 1604 Start: 01-06-2023 End: 01-15-2023 take 2.5 mg by inhalation every four hours as needed for wheezing albuterol (PROVENTIL) 2.5 mg /3 mL (0.083 %) nebulizer solution 2.5 mg Start: 03-31-2021 take 2 puff(s) by in halation twice daily as needed for cough albuterol 90 mcg/inh inhalation aerosol ; 2 puff(s) inhaled 2 times a day as needed for cough. PT STATES TAKES NEEDED. Quantity: 8.5 Refills: 0 Ordered: 31-Mar-2021 Yoseph Davis Start: 31-Mar-2021 Generic Substitution Allowed Comments: For inhalation only.It is very important that you take or use this exactly as directed. Do not skip doses or discontinue unless directed by your doctor.Obtain medical advice before taking any non-prescription drugs as some may affect the action of this medication.Shake well before use. Comment on above: For inhalation only. It is very important that you take or use this exactly as directed. Do not skip doses or discontinue unless directed by your doctor.Obtain medical advice before taking any non-prescription drugs as some may affect the action of this medication.Shake well before use. aluminum hydroxide 40 mg/ml / magnesium hydroxide 40 mg/ml / simethicone 4 mg/ml oral suspension (1 source) Start: 2022 End: 2022 take 30 mL by mouth three times daily as needed for gastroesophageal reflux disease 30 mL, Oral, 3 times daily PRN, heartburn, Starting on Wed01/15/23 at 1606 amiodarone hydrochloride 200 mg oral tablet (9 sources) Antiarrhythmic Start: 2021 End: 2022 take 1 tablet by mouth once daily amiodarone (CORDARONE) 200 MG tablet Take 1 (one) tablet (200 mg total) by mouth daily . 30 tablet 0 08/24/2021 03/09/2022 Discontinued (Error) amLODIPine 5 mg oral tablet (20 sources) Dihydropyridine Calcium Channel Fredy Start: 2023 End: 2024 take 1 tablet by mouth once daily Amlodipine 5 mg tablet Discontinued 5 mg PO DAILY 90 April 14, 2023 1:23pm May 24, 2024 2:17pm Start: 02-26-2023 End: 04-14-2023 Amlodipine Discontinued MG P O February 26, 2023 1:00am April 14, 2023 1:24pm Start: 01-06-2023 End: 01-25-2023 take 10 mg by mouth once daily 10 mg, Oral, Daily, Fir [facility] dose (after last modification) on 01/16/23 at 0900 Start: 03-10-2022 End: 03-13-2022 take 10 mg by mouth once daily 10 mg, Oral, Daily, Fir [facility] dose on 03/10/22 at 0900 Start: 08-25-2021 End: 02-07-2023 take 1 tablet by mouth once daily amLODIPine (NORVASC) 10 MG tablet Take 1 (one) tablet (10 mg total) by mouth daily . 30 tablet 01/08/2023 Active Start: 08-25-2021 End: 06-12-2021 take 1 tablet by mouth once daily amLODIPine (NORVASC) 10 MG tablet Take 1 (one) tablet (10 mg total) by mouth daily Start: 08/25/21. 30 tablet 1 08/25/2021 Active take 10 mg by mouth once daily A MLODIPINE BESYLATE (AMLODIPINE ORAL) Take 10 mg by mouth once daily. Active End: 08-24-2021 take 1 tablet by mouth once daily amLODIPine (NORVASC) 5 MG tablet Take 5 mg by mouth daily . 0 08/24/2021 Discontinued (Stop Taking at Discharge) Comment on above: Take 10 mg by mouth once daily. apixaban 5 mg oral tablet (20 sources) Factor Xa Inhibitor Start: 9 End: 5 take 1 tablet by mouth twice daily apixaban (ELIQUIS) 5 mg Tab Take 1 (one) tablet (5 mg total) by mouth 2 (two) times a day A fib . 60 tablet 01/25/2023 07/28/2024 Discontinued (Discontinued by another clinician) aspirin 81 mg delayed release oral tablet (20 sources) Platelet Aggregation Inhibitor, Nonsteroidal Anti-inflammatory Drug Start: 3 End: 3 take 1 tablet by mouth once daily aspirin 81 MG EC tablet Take 1 (one) tablet (81 mg total) by mouth daily for 2 doses Start: 01/09/23. 2 tablet 0 01/09/2023 01/15/2023 Discontinued (Stop Taking at Discharge) Start: 03-13-2022 End: 04-12-2022 aspirin 81 mg chewable table t Chew and Swallow 1 (one) tablet (81 mg total) daily . 30 tablet 0 03/13/2022 04/12/2022 Active Start: 08-25-2021 End: 03-13-2022 aspirin 81 mg chewable table t Chew and Swallow 2 (two) tablets (162 mg total) daily Start: 08/25/21. 60 tablet 3 08/25/2021 03/13/2022 Discontinued (Reorder (Suppress CancelRx Message to Pharmacy)) Start: 07-30-2021 End: 08-24-2021 take 1 tablet by mouth once daily aspirin 81 MG EC tablet Indications: Coronary artery disease involving [place] coronary artery of [place] heart, unspecified whether angina present Take 1 (one) tablet (81 mg total) by mouth daily . 30 tablet 1 07/30/2021 08/24/2021 Discontinued (Stop Taking at Discharge) take 1 tablet by tip th once daily Aspirin, Buffered 81 mg tab Take 1 tablet by mouth once daily. Active take 1 tablet by tip th once daily aspirin 325 MG tablet Take 325 mg by mouth daily . 0 Active aspirin 81 mg or al tablet Quantity: 0 Refills: 0 Ordered: 31-Mar-2021 Luz Maria Powell Generic Substitution Allowed Comment on above: Take 1 tablet by tip th once daily. atorvastatin 40 mg oral tablet (8 sources) HMG-CoA Reductase Inhibitor Start: 01-06-2023 End: 01-25-2023 take 40 mg by mouth once daily 40 mg, Oral, Nightly, First dose (after last modification) on Wed01/15/23 at 2100 Start: 03-10-2022 End: 03-13-2022 take 40 mg by mouth once daily 40 mg, Oral, Nightly, F irst dose on Wed03/10/22 at 2100 Start: 08-24-2021 End: 09-25-2021 take 1 tablet by mouth once daily atorvastatin (LIPITOR) 40 MG tablet Take 1 (one) tablet (40 mg total) by mouth nightly . 30 tablet 3 08/24/2021 09/25/2021 Discontinued (Discontinued by another clinician) barium sulfate (VARIBAR NECTAR) 40 % (w/v) oral suspension 1 Dose (1 source) Start: 01-06-2023 End: 01-06-2023 barium sulfate (VARIBAR NECTAR) 40 % (w/v) oral suspension 1 Dose barium sulfate (VARIBAR PUDDING) 40 % (w/v), 30% (w/w) oral paste 1 Dose (1 source) Start: 01-06-2023 End: 01-06-2023 barium sulfate (VARIBAR PUDDING) 40 % (w/v), 30% (w/w) oral paste 1 Dose barium sulfate (VARIBAR THIN LIQUID) 81 % (w/w) solution 1 Dose (1 source) Start: 01-06-2023 End: 01-06-2023 barium sulfate (VARIBAR THIN LIQUID) 81 % (w/w) solution 1 Dose bisacodyl 10 mg rectal suppository (1 source) Stimulant Laxative Start: 01-15-2023 End: 01-25-2023 take 10 mg rectal route once daily as needed for constipation 10 mg, Rectal, Daily PRN, constipation, 2nd line for constipation, if no Bowel movement within 48 hours, Starting on Wed01/15/23 at 1606 casirivimab 600 mg-imdevimab 600 mg (LISA-COV) 1200 mg total in sodium chloride 0.9% (NS) 110 mL IVPB (1 source) Start: 01-06-2021 End: 01-06-2021 casirivimab 600 mg-imdevimab 600 mg (LISA-COV) 1200 mg total in sodium chloride 0.9% (NS) 110 mL IVPB docusate sodium 50 mg / sennosides, half-way 8.6 mg oral tablet (2 sources) Start: 01-15-2023 End: 01-25-2023 take 1 tablet by mouth twice daily 1 tablet, Oral, 2 times daily, First dose (after last modification) on Wed01/15/23 at 2100 NOT for abdominal surgery patients. &nbs p;Hold for loose stools. Do Not Crush or Chew if administering orally due to bitter taste. May be crushed if given via tube. Start: 01-06-2023 End: 01-15-2023 senna-docusate (SENNA-S) 8.6 -50 mg per tablet 1 tablet Esomeprazole Magnesium 40 mg capsule,delayed release(DR/EC) (3 sources) Start: 02-26-2023 End: 05-25-2023 Esomeprazole Magnesium 40 mg capsule,delayed release(DR/EC) Discontinued mg PO February 26, 2023 1:00am May 25, 2023 10:53am 1 ml heparin sodium, porcine 5000 unt/ml injection (1 source) Unfractionated Heparin, Anti-coagulant Start: 01-07-2023 End: 01-10-2023 inject 5000 [IU] by subcutaneous injection every eight hours 5,000 Units, Subcutaneous, Every 8 hours scheduled, First dose on Susie 01/07/23 at 1400, For 11 doses Notify physician if patient refuses. hydrALAZINE hydrochloride 25 mg oral tablet (2 sources) Arteriolar Vasodilator Start: 01-15-2023 End: 01-25-2023 take 1 tablet by mouth every eight hours as needed 25 mg, Oral, Every 8 hours PRN, other, Systolic BP greater than 180, Starting on 01/15/23 at 1606 Hold if heart rate is greater than 95 Start: 01-06-2023 End: 01-15-2023 take 10 mg intravenously every two hours as needed hydrALAZINE (APRESOLINE) injection 10 mg 3 ml insulin glargine 100 unt/ml pen injector (20 sources) Insulin Analog Start: 02-26-2023 End: 02-26-2023 Insulin Glargine (Lantus Solostar U-100 Insulin) 100 unit/mL (3 mL) insulin pen Discontinued U SC February 26, 2023 1:00am February 26, 2023 8:35am Start: 02-26-2023 End: 02-26-2023 Insulin Glargine (Lantus Joy ostar U-100 Insulin) 100 unit/mL (3 mL) insulin pen Discontinued UNIT SC February 26, 2023 1:00am February 26, 2023 8:35am Start: 01-08-2023 End: 01-15-2023 inject 5 [IU] by subcutaneous injection once daily insulin glargine (Lantus Solostar U-100 Insulin) 100 unit/mL (3 mL) InPn Inject 5 (five) Units under the skin nightly . 1.5 mL 0 01/08/2023 01/15/2023 Discontinued (Stop Taking at Discharge) Start: 03-09-2022 End: 03-13-2022 inject 20 [IU] by subcutaneous injection once daily 20 Units, Subcutaneous, Nightly, First dose on 03/09/22 at 2100 Do not mix with other insulins in a syringe. Do NOT hold basal insulin without notifying physician Start: 08-24-2021 insulin glargi ne (Lantus Solostar U-100 Insulin) 100 unit/mL (3 mL) InPn Inject 22 (twenty two) Units under the skin daily with dinner . 6.6 mL 1 08/24/2021 Active Start: 08-24-2021 End: 01-08-2023 insulin glargine (Lantus Joy ostar U-100 Insulin) 100 unit/mL (3 mL) InPn Inject 22 (twenty two) Units under the skin daily with dinner . 6.6 mL 1 08/24/2021 01/08/2023 Discontinued (Reorder (Suppress CancelRx Message to Pharmacy)) insulin lispro 100 unt/ml injectable solution (11 sources) Insulin Analog Start: 01-15-2023 End: 01-25-2023 inject 1 dose by subcutaneous injection once daily 0-15 Units, Subcutaneous, At bedtime, First dose (after last modification) on Wed01/15/23 at 2100 Type 2 DM For Nightly Insulin Dose Coverage, use: CORRECTIVE (Only) for BG greater than 300 Nightly CORRECTIVE Dose Method: Specific Corrective Dose Nightly Specific CORRECTIVE dose (units of insulin): 2 For Downtime Calculator, use: Insulin SC NIGHTtime Start: 01-15-2023 End: 01-25-2023 inject 1 dose by subcutaneous injection three times daily before mealtime 0-30 Units, Subcutaneous, 3 times daily before meals, First dose (after last modification) on Wed01/15/23 at 1700 Type 2 DM Dose should be given 10-15 minutes before a meal. If poor oral intake, nausea or blood glucose value < 80 before meal, give of the dose (rounded up to nearest unit) immediately after meal completed. If patient skipping meal, hold base prandial dose and continue to use corrective insulin as ordered. Once diet resumed, total base prandial + corrective doses may be given. Prandial Insulin Dosing Method: NO Prandial Dose - Corrective Scale ONLY Corrective Insulin Regimen (select desired scale to cover BG result): Normal Sensitivity Scale For Downtime Calculator, use: Insulin SC MEALtime PREprandial Start: 01-06-2023 End: 01-15-2023 insulin lispro (AdmeLOG,Janice LOG) injection 0-15 Units Start: 03-09-2022 End: 03-13-2022 insulin lispro (AdmeLOG,Janice LOG) injection 0-15 Units Start: 08-24-2021 End: 09-25-2021 insulin lispro 100 unit/mL I nPn Humalog to be taken before each meal according to blood sugar reading before meal: 140-180:1 unit. 181-220:2 units. 221-260:3 units. 261-300:4 units. 301-340:5 units. 341-380:6 units. >381:7 units . 3 mL 1 08/24/2021 09/25/2021 Discontinued iopamidoL (ISOVUE-370) 370 mg iodine /mL (76 %) injection 75 mL (1 source) Start: 01-06-2023 End: 01-06-2023 iopamidoL (ISOVUE-370) 370 mg iodine /mL (76 %) injection 75 mL 4 ml labetalol hydrochloride 5 mg/ml cartridge (1 source) beta-Adrenerg ic Fredy Start: 01-06-2023 End: 01-15-2023 take 10 mg intravenously every two hours as needed labetaloL (NORMODYNE) injection 10 mg levothyroxine sodium 0.175 mg oral tablet (20 sources) l-Thyroxine Start: 02-26-2023 End: 10-05-2023 Levothyroxine 175 mcg tablet Discontinued ug PO February 26, 2023 1:00am October 05, 2023 2:54pm Start: 02-26-2023 Levothyroxine Active MCG PO February 26, 2023 1:00am Start: 01-16-2023 End: 01-25-2023 take 175 ug by mouth once daily 175 mcg, Oral, Daily, First dose (after last modification) on 01/16/23 at 0600 For patients on continuous tube feed: Hold TF from 1 hr before until 1 hr after each dose. TF rate may need adjustment to meet caloric needs. Start: 01-07-2023 End: 01-15-2023 take 175 ug by mouth once daily 175 mcg, Oral, Daily, First dose on Susie 01/07/23 at 1015 For patients on continuous tube feed: Hold TF from 1 hr before until 1 hr after each dose. TF rate may need adjustment to meet caloric needs. Start: 03-10-2022 End: 03-13-2022 take 175 ug by mouth once daily 175 mcg, Oral, Daily, First dose on 03/10/22 at 0600 For patients on continuous tube feed: Hold TF from 1 hr before until 1 hr after each dose. TF rate may need adjustment to meet caloric needs. Start: 01-06-2014 End: 03-21-2024 levothyroxine (SYNTHROID) 17 5 mcg tablet 1 tablet once daily. 01/06/2014 Active take 1 tablet by tip th once daily Levoxyl 175 mcg (0.175 mg) oral tablet ; 1 tab(s) orally once a day Quantity: 0 Refills: 0 Ordered: 31-Mar-2021 Luz Maria Powell Generic Substitution Allowed Comment on above: 1 tablet once daily. lidocaine hydrochloride 0.02 mg/mg topical gel (1 source) Antiarrhythmic, Amide Local Anesthetic Start: 01-16-20 End: 01-26-20 1 application., Topical, As needed, for isc, Starting on Wed01/15/23 at 1606 as needed for mild pain/discomfort associated with digital rectal stimulation, up to a maximum of 4 doses per day 50 ml magnesium sulfate 40 mg/ml injection (1 source) Start: 01-07-20 End: 01-07-20 take 2 g intravenously every four hours magnesium sulfate 2 g in sterile water (SW) 50 mL IVPB melatonin 5 mg oral tablet (2 sources) Start: 01-16-20 End: 01-26-20 melatonin Tab 5 mg Start: 03-09-2022 End: 03-13-2022 melatonin tablet 3 mg metoprolol tartrate 25 mg oral tablet (16 sources) beta-Adrenergic Fredy Start: 03-12-2022 End: 03-13-2022 metoprolol tartrate (LOPRESSOR) tablet 12.5 mg Start: 07-30-2021 End: 03-13-2022 take 0.5 tablet by mouth twice daily metoprolol tartrate (LOPRESSOR) 25 MG tablet Take 0.5 (one-half) tablet (12.5 mg total) by mouth 2 (two) times a day . 30 tablet 3 08/24/2021 03/13/2022 Discontinued (Stop Taking at Discharge) Start: 12-15-2013 metoprolol suc cinate XL, long acting, (TOPROL XL) 50 mg 24 hr tablet 1 tablet once daily. 12/15/2013 Active End: 08-30-2020 take 1 tablet by mouth once daily metoprolol succinate (TOPROL-XL) 25 MG 24 hr tablet Take 25 mg by mouth daily . 0 08/30/2020 Discontinued Comment on above: 1 tablet once daily. multivitamin (THERAGRAN) per tablet 1 tablet (3 sources) Start: 01-16-2023 End: 01-25-2023 take 1 tablet by mouth once daily 1 tablet, Oral, Daily, First dose (after last modification) on 01/16/23 at 0900 Start: 01-07-2023 End: 01-15-2023 take 1 tablet by mouth once daily 1 tablet, Oral, Lily y, First dose on Susie 01/07/23 at 1015 Start: 03-10-2022 End: 03-13-2022 take 1 tablet by mouth once daily 1 tablet, Oral, Lily y, First dose on 03/10/22 at 0900 naloxone (NARCAN) injection 0.1 mg (1 source) Start: 01-06-2023 End: 01-15-2023 naloxone (NARCAN) injection 0.1 mg nitroglycerin 0.4 mg sublingual tablet (20 sources) Nitrate Vasodilator End: 08-24-2021 nitroGLYCERIN (NITROSTAT) 0.[address] 0.4 mg under the tongue every 5 (five) minutes as needed for chest pain , if no relief after 3 doses call 911 . 0 08/24/2021 Discontinued (Stop Taking at Discharge) nystatin 173129 unt/ml oral suspension (1 source) Polyene Antifungal Start: 01-15-2023 End: 01-20-2023 nystatin (MYCOSTATIN) 100,000 unit/mL suspension 500,000 Units ondansetron 4 mg disintegrating oral tablet (2 sources) Serotonin-3 Receptor Antagonist Start: 01-15-2023 End: 01-25-2023 take 1 tablet by mouth every six hours as needed for nausea and vomiting 4 mg, Oral, Every 6 hours PRN, nausea, vomiting, Starting on 01/15/23 at 1606 Orally disintegrating tablet: Open blister pack and place tablet on the tongue; tablet is formulated to dissolve on the tongue without water; do not split tablet. Formul ation requires tablet remain in sealed package until immediately prior to dose being administered. Start: 01-06-2023 End: 01-15-2023 take 4 mg intravenously every six hours as needed for nausea and vomiting ondansetron (ZOFRAN) injection 4 mg ondansetron (ZOFRAN-ODT) disintegrating tablet 4 mg (1 source) Start: 03-09-2022 End: 03-13-2022 take 1 tablet by mouth every six hours as needed for nausea and vomiting ondansetron (ZOFRAN-ODT) disintegrating tablet 4 mg perflutren lipid microspheres (DEFINITY) 0.143 mg/mL solution 0-10 mL of mixture (1 source) Start: 01-06-2023 End: 01-06-2023 perflutren lipid microspheres (DEFINITY) 0.143 mg/mL solution 0-10 mL of mixture polyethylene glycol 3350 34516 mg powder for oral solution (4 sources) Osmotic Laxative Start: 01-16-2023 End: 01-25-2023 17 g, Oral, Daily, First dose (after last modification) on 01/16/23 at 0900 Start: 01-09-2023 End: 01-25-2023 17 g, Oral, 2 times daily MA N, constipation, 1st line for constipation, if no Bowel movement within 24 hours, Starting on 01/15/23 at 1606 microencapsulated potassium chloride 20 meq extended release oral tablet (20 sources) Start: 09-25-2021 End: 01-25-2023 take 1 tablet by mouth once daily potassium chloride SA (K-DUR,KLOR-CON) 20 MEQ tablet Take 1 (one) tablet (20 mEq total) by mouth daily . 30 tablet 0 01/15/2023 01/25/2023 Discontinued (Stop Taking at Discharge) End: 09-25-2021 potassium chloride (MICRO-K) 10 MEQ CR capsule Take 10 mEq by mouth every evening . 0 09/25/2021 Discontinued 10 ml propofol 10 mg/ml injection (1 source) General Anesthetic Start: 03-10-2022 End: 03-10-2022 propofoL (DIPRIVAN) injection rosuvastatin calcium 20 mg oral tablet (20 sources) HMG-CoA Reductase Inhibitor Start: 02-26-2023 Rosuvastatin Active MG PO February 26, 2023 1:00am Start: 10-21-2016 End: 05-24-2024 take 1 tablet by mouth once daily Rosuvastatin 20 mg tablet Discontinued 20 mg PO daily 90 May 22, 2024 8:29am May 24, 2024 2:17pm take 0.5 tablet by m outh once daily rosuvastatin (CRESTOR) 40 MG tablet Take 0.5 (one-half) tablet (20 mg total) by mouth daily . 0 Active take 1 tablet by tip th once daily rosuvastatin (CRESTOR) 40 MG tablet Take 40 mg by mouth daily . 0 Active sennosides, half-way 8.6 mg oral tablet (2 sources) Start: 01-10-2023 End: 01-15-2023 senna (SENOKOT) tablet 8.6 m g Start: 03-09-2022 End: 03-13-2022 senna (SENOKOT) tablet 8.6 m g Sodium Chloride (6 sources) Start: 01-15-2023 End: 01-25-2023 sodium chloride (PF) (NS) fl ush 5 mL Start: 01-14-2023 End: 01-15-2023 sodium chloride 0.9% (NS) Start: 01-06-2023 End: 01-07-2023 sodium chloride 0.9% (NS) Start: 01-06-2023 End: 01-15-2023 sodium chloride (PF) (NS) fl ush 5 mL Start: 03-09-2022 End: 03-13-2022 sodium chloride (PF) (NS) fl ush 5 mL Start: 01-06-2021 End: 01-06-2021 sodium chloride 0.9% (NS) tamsulosin hydrochloride 0.4 mg oral capsule (20 sources) alpha-Adrenergic Fredy Start: 05-25-2023 End: 05-24-2024 take 2 capsules by mouth once daily Tamsulosin 0.4 mg capsule Discontinued 0.8 mg PO DAILY 180 April 25, 2024 10:28am May 24, 2024 2:17pm Start: 05-25-2023 take 0.8 mg by mouth once lily y Tamsulosin Active 0.8 MG PO DAILY 180 May 25, 2023 10:53am Start: 12-04-2020 End: 05-25-2023 take 1 capsule by mouth once daily Tamsulosin 0.4 mg capsule Discontinued 0.4 mg PO DAILY February 26, 2023 1:00am May 25, 2023 10:53am Comment on above: TAKE 1 CAPSULE BY [facility] ONCE DAILY 1-2 HOURS FOLLOWING THE SAME MEAL EACH DAY traZODone hydrochloride 50 mg oral tablet (20 sources) Serotonin Reuptake Inhibitor Start: 10-05-2023 End: 05-24-2024 Trazodone 50 mg tablet Discontinued 25 mg PO AT BEDTIME as needed for insomnia 90 October 05, 2023 2:54pm May 24, 2024 1:38pm Start: 06-04-2023 End: 07-28-2024 take 0.5 tablet by mouth once daily at bedtime as needed traZODone (DESYREL) 50 mg tablet TAKE 1/2 (ONE-HALF) TABLET BY MOUTH EVERY DAY AT BEDTIME NEEDED 06/04/2023 Active Start: 02-26-2023 End: 10-05-2023 Trazodone 50 mg tablet Disco ntinued mg PO February 26, 2023 1:00am October 05, 2023 2:54pm Start: 02-26-2023 Trazodone Acti ve MG PO February 26, 2023 1:00am Start: 01-15-2023 End: 01-25-2023 take 50 mg by mouth once daily as needed for sleep 50 mg, Oral, Nightly PRN, sleep, Starting on Wed01/15/23 at 1606 To be administered 1 hour after melatonin if still awake, May repeat in 20 minutes if still awake Start: 03-09-2022 End: 03-13-2022 take 50 mg by mouth once daily as needed for sleep 50 mg, Oral, Nightly PRN, sleep, Starting on Wed03/09/22 at 1448 vitamin b12 1 mg oral tablet (20 sources) Vitamin B12 Start: 01-07-2023 End: 01-25-2023 take 1000 ug by mouth once daily 1,000 mcg, Oral, Daily, First dose (after last modification) on 01/16/23 at 0900 Start: 03-10-2022 End: 03-13-2022 take 1000 ug by mouth once daily 1,000 mcg, Oral, Lily y, First dose on Tu03/10/22 at 0900 warfarin sodium 5 mg oral tablet (18 sources) Vitamin K Antagonist Start: 02-26-2023 End: 04-12-2023 Warfarin 5 mg tablet Discontinued mg PO February 26, 2023 1:00am April 12, 2023 3:23pm Start: 02-26-2023 End: 04-12-2023 Warfarin Discontinued MG PO February 26, 2023 1:00am April 12, 2023 3:23pm Start: 03-13-2022 End: 03-13-2022 warfarin (COUMADIN) tablet 5 mg Start: 03-11-2022 End: 03-11-2022 warfarin (COUMADIN) tablet 5 mg Start: 03-10-2022 End: 03-10-2022 warfarin (COUMADIN) tablet 5 mg Start: 03-09-2022 End: 03-09-2022 warfarin (COUMADIN) tablet 5 mg Start: 11-29-2013 End: 04-15-2022 warfarin (COUMADIN) 5 mg tab let 5 mg once daily. 11/29/2013 Active Comment on above: 5 mg once daily. Problems Active Problems Problem Classification Problem Date Documented Date Episodic/Chronic Acute cerebrovascular disease (20 sources) Ischemic stroke; Translations: [Cerebral infarction, unspecified] Onset: 01-06-2023 01-06-2023 Chronic Administrative/social admission (11 sources) Repeated prescription; Translations: [Encounter for issue of repeat prescription] 02-26-2023 Episodic Anxiety disorders (8 sources) Anxiety disorder, unspecified; Translations: [Anxiety state, unspecified] 04-12-2023 Chronic Cardiac dysrhythmias (20 sources) Longstanding persistent atrial fibrillation; Translations: [Longstanding persistent atrial fibrillation] Onset: 08-30-2020 Chronic Cataract (10 sources) Bilateral pseudophakia; Translations: [Presence of intraocular lens] Onset: 02-21-2014 Resolved: 05-06-2020 03-10-2017 Chronic Coagulation and hemorrhagic disorders (8 sources) Thrombocytopenia, unspecified; Translations: [Thrombocytopenia, unspecified] 04-12-2023 Chronic Conditions associated with dizziness or vertigo (2 sources) Dizziness; Translations: [Dizziness and giddiness] Episodic Coronary atherosclerosis and other heart disease (20 sources) Atherosclerotic heart disease of [place] coronary artery without angina pectoris; Translations: [Coronary atherosclerosis of unspecified type of vessel, [place] or graft] Onset: 08-30-2020 Chronic Delirium, dementia, and amnestic and other cognitive disorders (9 sources) Alzheimer's disease; Translations: [Alzheimer's disease, unspecified] 02-01-2023 Chronic Diabetes mellitus with complications (1 source) Type 2 diabetes mellitus; Translations: [Type 2 diabetes mellitus with other specified complication] Chronic Diabetes mellitus without complication (20 sources) Diabetes mellitus; Translations: [Type 2 diabetes mellitus without complications] Onset: 03-10-2017 08-30-2020 Chronic Disorders of lipid metabolism (20 sources) Hyperlipidemia; Translations: [Hyperlipidemia, unspecified] Onset: 08-30-2020 Chronic E Codes: Fall (3 sources) Fall; Translations: [Unspecified fall, initial encounter] Onset: 07-04-2024 05-24-2024 Episodic E Codes: Fall (2 sources) Fall Essential hypertension (20 sources) Essential hypertension; Translations: [Essential (primary) hypertension] Onset: 09-16-2016 Chronic Heart valve disorders (20 sources) Aortic valve disorder; Translations: [Nonrheumatic aortic valve disorder, unspecified] Onset: 07-29-2021 Chronic Hyperplasia of prostate (18 sources) Benign prostatic hyperplasia; Translations: [Benign prostatic hyperplasia without lower urinary tract symptoms] Onset: 09-01-2023 02-26-2023 Chronic Inflammation; infection of eye (except that caused by tuberculosis or sexually transmitteddisease) (1 source) Ulcerative blepharitis; 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, upper and lower eyelids] 06-17-2023 Episodic Malaise and fatigue (9 sources) Other fatigue; Translations: [Fatigue] Onset: 03-31-2021 02-24-2024 Episodic Mood disorders (3 sources) Depressive disorder; Translations: [Depression] 12-09-2023 Chronic Other aftercare (2 sources) Patient encounter status; Translations: [Other shelter (current) drug therapy] Episodic Other circulatory disease (18 sources) History of cerebrovascular accident; Translations: [Personal history of transient ischemic attack (TIA), and cerebral infarction without residual deficits] Onset: 09-16-2016 09-16-2016 Episodic Other circulatory disease (1 source) Elevated blood pressure; Translations: [Elevated blood-pressure reading, without diagnosis of hypertension] 01-06-2023 Episodic Other circulatory disease (2 sources) Elevated blood-pressure reading, without diagnosis of hypertension; Translations: [Elevated blood-pressure reading, without diagnosis of hypertension] Onset: 01-06-2023 Episodic Other connective tissue disease (2 sources) Swelling of lower limb; Translations: [Other specified soft tissue disorders] 12-31-2023 Episodic Other eye disorders (7 sources) Bilateral vitreous floaters; Translations: [Other vitreous opacities, bilateral] Onset: 03-18-2016 03-18-2016 Chronic Other eye disorders (1 source) Other vitreous opacities, bilateral; Translations: [Vitreous floaters of both eyes] Onset: 03-18-2016 Chronic Other eye disorders (6 sources) Corneal scar; Translations: [Unspecified corneal scar and opacity] Onset: 10-05-2016 10-05-2016 Episodic Other lower respiratory disease (1 source) Dyspnea on exertion; Translations: [Shortness of breath] Episodic Other nervous system disorders (20 sources) Anomic aphasia; Translations: [Aphasia] Onset: 01-27-2023 01-27-2023 Chronic Other nervous system disorders (20 sources) Cognitive deficit in communication skills; Translations: [Cognitive communication deficit] Onset: 01-27-2023 01-27-2023 Chronic Other nervous system disorders (3 sources) Paresthesia of hand ; Translations: [Anesthesia of skin] 02-24-2024 Episodic Other screening for suspected conditions (not mental disorders or infectious disease) (1 source) Elevated prostate specific antigen [PSA]; Translations: [Elevated prostate specific antigen [PSA]] Onset: 06-02-2024 Episodic Other upper respiratory infections (2 sources) Acute upper respiratory infection, unspecified; Translations: [Acute upper respiratory infection, unspecified] Onset: 07-17-2024 Episodic Residual codes; unclassified (20 sources) Obstructive sleep apnea syndrome; Translations: [Obstructive sleep apnea (adult) (pediatric)] Onset: 08-30-2020 Chronic Residual codes; unclassified (8 sources) Obstructive sleep apnea (adult) (pediatric); Translations: [Obstructive sleep apnea (adult)(pediatric)] Onset: 08-30-2020 Chronic Spondylosis; intervertebral disc disorders; other back problems (3 sources) Chronic low back pain; Translations: [Chronic lumbosacral pain] 04-12-2023 Episodic Syncope (2 sources) Near syncope; Translations: [Syncope and collapse] Episodic Thyroid disorders (18 sources) Acquired hypothyroidism; Translations: [Hypothyroidism, unspecified] Onset: 05-29-2024 02-01-2023 Chronic Unclassified (2 sources) COUGH SORE THROAT SINUS 03-31-2021 Comment on above: COUGH SORE THROAT SI NUS Unclassified (3 sources) Cough, unspecified; Translations: [Cough, unspecified] Onset: 02-13-2022 Unclassified (2 sources) W19.XXXA - Unspecified fall, initial encounter,R53.1 - Weakness Viral infection (2 sources) COVID-19; Translations: [COVID-19] Onset: 01-05-2021 Past or Other Problems Problem Classification Problem Date Documented Da te Episodic/Chronic Blindness and vision defects (18 sources) Hypermetropia; Translations: [Hypermetropia, unspecified eye] Onset: 03-21-2015 03-21-2015 Episodic Coronary atherosclerosis and other heart disease (3 sources) Presence of aortocoronary bypass graft; Translations: [Presence of aortocoronary bypass graft] Onset: 10-10-2021 Episodic Fever of unknown origin (1 source) Fever, unspecified; Translations: [Fever, unspecified] Onset: 03-31-2021 Episodic Immunizations and screening for infectious disease (1 source) Encounter for immunization; Translations: [Encounter for immunization] Onset: 11-24-2023 Episodic Mood disorders (1 source) Mood disorders Onset: 01-25-2023 01-25-2023 Other aftercare (13 sources) Long-term current use of drug therapy; Translations: [Other shelter (current) drug therapy] Onset: 07-06-2023 01-04-2023 Episodic Other aftercare (4 sources) 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; Translations: [Other shelter (current) drug therapy] Onset: 07-06-2023 Episodic Other circulatory disease (5 sources) Personal history of transient ischemic attack (TIA), and cerebral infarction without residual deficits; Translations: [Personal history of transient ischemic attack (TIA), and cerebral infarction without residual deficits] Onset: 01-21-2024 04-12-2023 Episodic Other connective tissue disease (4 sources) Other specified soft tissue disorders; Translations: [Other specified soft tissue disorders] Onset: 12-29-2023 Episodic Other eye disorders (2 sources) Vitreous opacities; Translations: [Other vitreous opacities, unspecified eye] Onset: 02-21-2014 Resolved: 03-18-2016 03-18-2016 Chronic Other eye disorders (1 source) Unspecified corneal scar and opacity; Translations: [Corneal scarring] Onset: 10-05-2016 Episodic Other gastrointestinal disorders (20 sources) Oropharyngeal dysphagia; Translations: [Dysphagia, oropharyngeal phase] Onset: 01-27-2023 01-27-2023 Episodic Other nervous system disorders (20 sources) Unsteady when standing; Translations: [Unsteadiness on feet] Onset: 01-27-2023 01-27-2023 Episodic Other nervous system disorders (2 sources) Paresthesia of skin; Translations: [Paresthesia of skin] Onset: 02-24-2024 Episodic Other nervous system disorders (2 sources) Anesthesia of skin; Translations: [Anesthesia of skin] Onset: 02-24-2024 Episodic Other upper respiratory disease (1 source) Nasal congestion; Translations: [Nasal congestion] Onset: 03-31-2021 Episodic Pneumonia (except that caused by tuberculosis or sexually transmitted disease) (3 sources) Pneumonia; Translations: [Pneumonia, organism unspecified] Onset: 03-31-2021 03-31-2021 Episodic Residual codes; unclassified (20 sources) Memory impairment; Translations: [Other amnesia] Onset: 01-27-2023 01-27-2023 Episodic Residual codes; unclassified (20 sources) Activity of daily living (ADL) alteration; Translations: [Other specified health status] Onset: 01-27-2023 01-27-2023 Episodic Unclassified (1 source) Cough, unspecified; Translations: [Cough, unspecified] Onset: 02-13-2022 Unclassified (1 source) Aortic valve stenosis, severe 12-31-2023 Viral infection (20 sources) Disease caused by 2019-nCoV; Translations: [COVID-19] Onset: 01-05-2021 Episodic Results Test Name Value Interpretation Reference Range Facility APTT HEPARIN COVERAGEon 07-17 aPTT Coag (Bld) [Time] 91 s High 23-34 [facility] Comment on above: Order Comment: Thera peutic range for APTT's is 68 - 104 seconds Performed By: #### L [id number] #### [facility] [address] [address] Azam Pickering M.D. [id number] [facility] Glucose [Mass/Vol] 145 mg/dL High [address] [place] [address] Comment on above: Performed By: #### 4 [id number] #### LAB [address] [address] Azam Pickering M.D. [id number] Glucose [Mass/Vol] 166 mg/dL [address] Comment on above: Performed By: #### 4 5033 #### [facility] [address] [address] Azam Pickering M.D. [id number] Glucose [Mass/Vol] 133 mg/dL [address] Comment on above: Performed By: #### 4 5033 #### LAB [address] [address] Azam Pickering M.D. [id number] Glucose [Mass/Vol] 126 mg/dL [address] Comment on above: Performed By: #### 4 [id number] #### LAB [address] [address] Azam Pickering M.D. [id number] PT/INRon 08-12-2024 INR Coag (PPP) [Relative time] 2.1 {INR} High 0.8-1.1 [facility] Comment on above: Order Comment: Jesus mills the induction phase of oral anticoagulation, the INR may not reflect the anticoagulation status of the patient. Therapeutic ranges for INR's are: Most clinical situations: INR 2.0-3.0 Mechanical Prosthetic Valve: INR 2.5-3.5 Critical: INR >5.0 Performed By: #### 4 [id number] #### LAB [address] [address] Azam Pickering M.D. [id number] PT Coag (PPP) [Time] 23.8 s High 11.8-14.3 [facility] Comment on above: Order Comment: Jesus mills the induction phase of oral anticoagulation, the INR may not reflect the anticoagulation status of the patient. Therapeutic ranges for INR's are: Most clinical situations: INR 2.0-3.0 Mechanical Prosthetic Valve: INR 2.5-3.5 Critical: INR >5.0 Performed By: #### 4 [id number] #### LAB [address] [address] Azam Pickering M.D. [id number] APTT HEPARIN COVERAGE 07-17 aPTT Coag (Bld) [Time] 82 s High [facility]34 [facility] Comment on above: Order Comment: Hepar inTherapeutic range for APTT's is 68 - 104 seconds Performed By: #### L [id number] #### [facility] [address] [address] Azam Pickering M.D. [id number] aPTT Coag (Bld) [Time] 106 s High [address] [place] [address] Comment on above: Order Comment: Hepar in drawTherapeutic range for APTT's is 68 - 104 seconds Performed By: #### L [id number] #### [facility] LAB [address] [address] Azam Pickering M.D. [id number] POC GLUCOSE [facility] 025 Glucose [Mass/Vol] 121 mg/dL [address] Comment on above: Performed By: #### L [id number] #### LAB [address] [address] Azam Pickering M.D. [id number] Glucose [Mass/Vol] 125 mg/dL [address] Comment on above: Performed By: #### 4 5033 #### [facility] [address] [address] Azam Pickering M.D. [id number] Glucose [Mass/Vol] 136 mg/dL [address] Comment on above: Performed By: #### 4 6932 #### [facility] LAB [address] [address] Azam Pickering M.D. [id number] Glucose [Mass/Vol] 122 mg/dL High 65-99 [facility] Comment on above: Performed By: #### L [id number] #### LAB [address] [address] Azam Pickering M.D. [id number] PT/INRon 08-11-2024 INR Coag (PPP) [Relative time] 1.5 {INR} High 0.8-1.1 [facility] Comment on above: Order Comment: Jesus g the induction phase of oral anticoagulation, the INR may not reflect the anticoagulation status of the patient. Therapeutic ranges for INR's are:Most clinical situations: INR 2.0-3.0Mechanical Prosthetic Valve: INR 2.5-3.5Critical: INR >5.0 Performed By: #### L [id number] #### [facility] [address] [address] Azam Pickering M.D. [id number] PT Coag (PPP) [Time] 18.6 s High 11.8-14.3 [facility] Comment on above: Order Comment: Jesus mills the induction phase of oral anticoagulation, the INR may not reflect the anticoagulation status of the patient. Therapeutic ranges for INR's are:Most clinical situations: INR 2.0-3.0Mechanical Prosthetic Valve: INR 2.5-3.5Critical: INR >5.0 Performed By: #### L [id number] #### LAB [address] [address] Azam Pickering M.D. [id number] APTTon 08-10-2024 aPTT Coag (Bld) [Time] 71 s High 23-34 [facility] Comment on above: Order Comment: Thera peutic range for APTT's is 68 - 104 seconds Performed By: #### L [id number] #### [facility] [address] [address] Azam Pickering M.D. [id number] aPTT Coag (Bld) [Time] 44 s High 23-34 [facility] Comment on above: Order Comment: Thera peutic range for APTT's is 68 - 104 seconds Performed By: #### L [id number] #### [facility] [address] [address] Azam Pickering M.D. [id number] aPTT Coag (Bld) [Time] 160 s Off scale high 23-34 [facility] Comment on above: Order Comment: Thera peutic range for APTT's is 68 - 104 seconds Performed By: #### L [id number] #### [facility] [address] [address] Azam Pickering M.D. [id number] aPTT Coag (Bld) [Time] 100 s High 2334 [facility] Comment on above: Order Comment: hepar inTherapeutic range for APTT's is 68 - 104 seconds Performed By: #### L [id number] #### [facility] [address] [address] Azam Pickering M.D. [id number] BASIC METABOLIC PANEL - Anion gap [Moles/Vol] 12 mmol/L Normal 10-20 [facility] Comment on above: Order Comment: [facility] has implemented the eGFR calculation approach that does not have a coefficient for race that conforms to the NKF-ASN Task Force Recommendations. Performed By: #### L [id number] #### [facility] [address] [address] Azam Pickering M.D. [id number] Calcium [Mass/Vol] 9.2 mg/dL Normal 8.4-10.2 [facility] Comment on above: Order Comment: [facility] has implemented the eGFR calculation approach that does not have a coefficient for race that conforms to the NKF-ASN Task Force Recommendations. Performed By: #### L [id number] #### [facility] [address] [address] Azam Pickering M.D. [id number] Chloride [Moles/Vol] 109 mmol/L High 98-108 [facility] Comment on above: Order Comment: [facility] has implemented the eGFR calculation approach that does not have a coefficient for race that conforms to the NKF-ASN Task Force Recommendations. Performed By: #### L [id number] #### [facility] [address] [address] Azam Pickering M.D. [id number] Creatinine [Mass/Vol] 0.97 mg/dL Normal 0.80-1.30 [facility] Comment on above: Order Comment: [facility] has implemented the eGFR calculation approach that does not have a coefficient for race that conforms to the NKF-ASN Task Force Recommendations. Performed By: #### L [id number] #### [facility] [address] [address] Azam Pickering M.D. [id number] EGFR 78 mL/min/1.73 m2 Normal >=60 [facility] Comment on above: Order Comment: [facility] has implemented the eGFR calculation approach that does not have a coefficient for race that conforms to the NKF-ASN Task Force Recommendations. Result Comment: Isabell mated GFR was calculated using the 2020 CKD-EPI creatinine equation. Performed By: #### L [id number] #### [facility] [address] [address] Azam Pickering M.D. [id number] Glucose [Mass/Vol] 117 mg/dL High 65-99 [facility] Comment on above: Order Comment: [facility] has implemented the eGFR calculation approach that does not have a coefficient for race that conforms to the NKF-ASN Task Force Recommendations. Performed By: #### L [id number] #### [facility] [address] [address] Azam Pickering M.D. [id number] HCO3 (Bld) [Moles/Vol] 27 mmol/L Normal 21-32 [facility] Comment on above: Order Comment: [facility] has implemented the eGFR calculation approach that does not have a coefficient for race that conforms to the NKF-ASN Task Force Recommendations. Performed By: #### L [id number] #### [facility] [address] [address] Azam Pickering M.D. [id number] Potassium [Moles/Vol] 4.2 mmol/L Normal 3.5-5.1 [facility] Comment on above: Order Comment: [facility] has implemented the eGFR calculation approach that does not have a coefficient for race that conforms to the NKF-ASN Task Force Recommendations. Performed By: #### L [id number] #### [facility] [address] [address] Azam Pickering M.D. [id number] Sodium [Moles/Vol] 144 mmol/L Normal 135-145 [facility] Comment on above: Order Comment: [facility] has implemented the eGFR calculation approach that does not have a coefficient for race that conforms to the NKF-ASN Task Force Recommendations. Performed By: #### L [id number] #### [facility] [address] [address] Azam Pickering M.D. [id number] Urea nitrogen [Mass/Vol] 8 mg/dL Normal 8-25 [facility] Comment on above: Order Comment: [facility] has implemented the eGFR calculation approach that does not have a coefficient for race that conforms to the NKF-ASN Task Force Recommendations. Performed By: #### L [id number] #### [facility] [address] [address] Azam Pickering M.D. [id number] Urea nitrogen/Creatinine [Mass ratio] 8.2 mg/mg Low 10.0-20.0 [facility] Comment on above: Order Comment: [facility] has implemented the eGFR calculation approach that does not have a coefficient for race that conforms to the NKF-ASN Task Force Recommendations. Performed By: #### L [id number] #### [facility] [address] [address] Azam Pickering M.D. [id number] CBCon 08-10-2024 AUTO NRBC 0.3 % Normal [facility] Comment on above: Order Comment: While on heparin Performed By: #### L [id number] #### [facility] [address] [address] Azam Pickering M.D. [id number] AUTO NRBC ABS COUNT 0.02 K/mcL High 0.00-0.00 [facility] Comment on above: Order Comment: While on heparin Performed By: #### L [id number] #### LAB [address] [address] Azam Pickering M.D. [id number] Erythrocyte distribution width (RBC) [Ratio] 13.0 % Normal 11.6-14.8 [facility] Comment on above: Order Comment: While on heparin Performed By: #### L [id number] #### LAB [address] [address] Azam Pickering M.D. [id number] Hematocrit (Bld) [Volume fraction] 42.3 % Normal 41.0-53.0 [facility] Comment on above: Order Comment: While on heparin Performed By: #### L [id number] #### LAB [address] [address] Azam Pickering M.D. [id number] Hemoglobin (Bld) [Mass/Vol] 14.2 g/dL Normal 13.5-17.5 [facility] Comment on above: Order Comment: While on heparin Performed By: #### L [id number] #### LAB [address] [address] Azam Pickering M.D. [id number] MCH (RBC) [Entitic mass] 32.2 pg Normal 26.0-34.0 [facility] Comment on above: Order Comment: While on heparin Performed By: #### L [id number] #### LAB [address] [address] Azam Pickering M.D. [id number] MCV (RBC) [Entitic vol] 95.9 fL Normal 80.0-100.0 [facility] Comment on above: Order Comment: While on heparin Performed By: #### L [id number] #### LAB [address] [place] [address] Azam Pickering M.D. [id number] MEAN CORPUSCULAR HEMOGLOBIN CONC 33.6 g/dL Normal 31.0-37.0 [facility] Comment on above: Order Comment: While on heparin Performed By: #### L [id number] #### LAB [address] [address] Azam Pickering M.D. [id number] Platelet mean volume (Bld) [Entitic vol] 10.2 fL Normal 9.4-12.4 [facility] Comment on above: Order Comment: While on heparin Performed By: #### L [id number] #### LAB [address] [address] Azam Pickering M.D. [id number] Platelets (Bld) [#/Vol] 90 10*3/uL Low 150-400 [facility] Comment on above: Order Comment: While on heparin Performed By: #### L [id number] #### [facility] LAB [address] [address] Azam Pickering M.D. [id number] RBC (Bld) [#/Vol] 4.41 10*6/uL Low 4.50-5.90 [facility] Comment on above: Order Comment: While on heparin Performed By: #### L [id number] #### LAB [address] [address] Azam Pickering M.D. [id number] WBC (Bld) [#/Vol] 6.40 10*3/uL Normal 4.50-11.00 [facility] Comment on above: Order Comment: While on heparin Performed By: #### L [id number] #### [facility] [address] [address] Azam Pickering M.D. [id number] CBC WITH AUTO DIFFERENTIALon 08-10-2024 AUTO NRBC 0.0 % Normal [facility] Comment on above: Performed By: #### L [id number] #### [facility] [address] [place] [address] Azam Pickering M.D. [id number] AUTO NRBC ABS COUNT 0.00 K/mcL Normal 0.00-0.00 [facility] Comment on above: Performed By: #### L [id number] #### LAB [address] [address] Azam Pickering M.D. [id number] BASOPHILS ABSOLUTE COUNT 0.03 K/mcL Normal 0.00-0.30 [facility] Comment on above: Performed By: #### L [id number] #### LAB [address] [address] Azam Pickering M.D. [id number] Basophils/100 WBC (Bld) 0.5 % Normal [facility] Comment on above: Performed By: #### L [id number] #### LAB [address] [address] Azam Pickering M.D. [id number] Eosinophils (Bld) [#/Vol] 0.27 10*3/uL Normal 0.00-0.50 [facility] Comment on above: Performed By: #### L [id number] #### LAB [address] [place] [address] Azam Pickering M.D. [id number] Eosinophils/100 WBC (Bld) 4.1 % Normal [facility] Comment on above: Performed By: #### L [id number] #### LAB [address] [place] [address] Azam Pickering M.D. [id number] Erythrocyte distribution width (RBC) [Ratio] 12.8 % Normal 11.6-14.8 [facility] Comment on above: Performed By: #### L [id number] #### LAB [address] [address] Azam Pickering M.D. [id number] Hematocrit (Bld) [Volume fraction] 41.8 % Normal 41.0-53.0 [facility] Comment on above: Performed By: #### L [id number] #### LAB [address] [place] [address] Azam Pickering M.D. [id number] Hemoglobin (Bld) [Mass/Vol] 14.0 g/dL Normal 13.5-17.5 [facility] Comment on above: Performed By: #### L [id number] #### LAB [address] [address] Azam Pickering M.D. [id number] IG ABSOLUTE 0.04 K/mcL Normal 0.00-0.30 [facility] Comment on above: Performed By: #### L [id number] #### LAB [address] [address] Azam Pickering M.D. [id number] IG PERCENT 0.60 % Normal [facility] Comment on above: Result Comment: The IG parameter is the percentage of metamyelocytes, myelocytes and promyelocytes. An immature granulocyte count (IG) of 1% or more suggests the possibility of infection, an IG count of 3% is very likely related to an infection. Performed By: #### L [id number] #### LAB [address] [address] Azam Pickering M.D. [id number] Lymphocytes (Bld) [#/Vol] 0.73 10*3/uL Low 0.90-4.00 [facility] Comment on above: Performed By: #### L [id number] #### LAB [address] [address] Azam Pickering M.D. [id number] Lymphocytes/100 WBC (Bld) 11.0 % Normal [facility] Comment on above: Performed By: #### L [id number] #### LAB [address] [address] Azam Pickering M.D. [id number] MCH (RBC) [Entitic mass] 32.3 pg Normal 26.0-34.0 [facility] Comment on above: Performed By: #### L [id number] #### LAB [address] [address] Azam Pickering M.D. [id number] MCV (RBC) [Entitic vol] 96.5 fL Normal 80.0-100.0 [facility] Comment on above: Performed By: #### L [id number] #### LAB [address] [address] Azam Pickering M.D. [id number] MEAN CORPUSCULAR HEMOGLOBIN CONC 33.5 g/dL Normal 31.0-37.0 [facility] Comment on above: Performed By: #### L [id number] #### LAB [address] [address] Azam Pickering M.D. [id number] Monocytes (Bld) [#/Vol] 1.01 10*3/uL High 0.30-0.90 [facility] Comment on above: Performed By: #### L [id number] #### LAB [address] [address] Azam Pickering M.D. [id number] Monocytes/100 WBC (Bld) 15.2 % Normal [facility] Comment on above: Performed By: #### L [id number] #### LAB [address] [address] Azam Pickering M.D. [id number] NEUTROPHILS ABSOLUTE COUNT 4.56 K/mcL Normal 1.70-7.00 [facility] Comment on above: Performed By: #### L [id number] #### LAB [address] [place] [address] Azam Pickering M.D. [id number] Neutrophils/100 WBC (Bld) 68.6 % Normal [facility] Comment on above: Performed By: #### L [id number] #### [facility] [address] [address] Azam Pickering M.D. [id number] Platelet mean volume (Bld) [Entitic vol] 9.8 fL Normal 9.4-12.4 [facility] Comment on above: Performed By: #### L [id number] #### LAB [address] [place] [address] Azam Pickering M.D. [id number] Platelets (Bld) [#/Vol] 85 10*3/uL Low 150-400 [facility] Comment on above: Performed By: #### L [id number] #### [facility] LAB [address] [address] Azam Pickering M.D. [id number] RBC (Bld) [#/Vol] 4.33 10*6/uL Low 4.50-5.90 [facility] Comment on above: Performed By: #### L [id number] #### [facility] LAB [address] [address] Azam Pickering M.D. [id number] WBC (Bld) [#/Vol] 6.64 10*3/uL Normal 4.50-11.00 [facility] Comment on above: Performed By: #### L [id number] #### LAB [address] [address] Azam Pickering M.D. [id number] [facility] GLUCOSE [facility] 025 Glucose [Mass/Vol] 196 mg/dL [address] Comment on above: Performed By: #### [id number] #### [facility] [address] [address] Azam Pickering M.D. [id number] Glucose [Mass/Vol] 128 mg/dL [address] Comment on above: Performed By: #### 4 [id number] #### LAB [address] [address] Azam Pickering M.D. [id number] Glucose [Mass/Vol] 171 mg/dL [address] Comment on above: Performed By: #### 4 5033 #### [facility] [address] [address] Azam Pickering M.D. [id number] Glucose [Mass/Vol] 131 mg/dL [address] Comment on above: Performed By: #### 4 [id number] #### [facility] [address] [address] Azam Pickering M.D. [id number] PT/INRon 08-10-2024 INR Coag (PPP) [Relative time] 1.3 {INR} High 0.8-1.1 [facility] Comment on above: Order Comment: Jesus g the induction phase of oral anticoagulation, the INR may not reflect the anticoagulation status of the patient. Therapeutic ranges for INR's are:Most clinical situations: INR 2.0-3.0Mechanical Prosthetic Valve: INR 2.5-3.5Critical: INR >5.0 Performed By: #### L [id number] #### [facility] [address] [address] Azam Pickering M.D. [id number] PT Coag (PPP) [Time] 16.4 s High 11.8-14.3 [facility] Comment on above: Order Comment: Jesus g the induction phase of oral anticoagulation, the INR may not reflect the anticoagulation status of the patient. Therapeutic ranges for INR's are:Most clinical situations: INR 2.0-3.0Mechanical Prosthetic Valve: INR 2.5-3.5Critical: INR >5.0 Performed By: #### L [id number] #### [facility] [address] [address] Azam Pickering M.D. [id number] APTTon 08-09-2024 aPTT Coag (Bld) [Time] 64 s High 23-34 [facility] Comment on above: Order Comment: Thera peutic range for APTT's is 68 - 104 seconds Performed By: #### 4 [id number] #### [facility] LAB [address] [address] Azam Pickering M.D. [id number] aPTT Coag (Bld) [Time] 97 s High 23-34 [facility] Comment on above: Order Comment: Thera peutic range for APTT's is 68 - 104 seconds Performed By: #### L [id number] #### [facility] LAB [address] [place] [address] Azam Pickering M.D. [id number] aPTT Coag (Bld) [Time] 106 s High 23-34 [facility] Comment on above: Order Comment: Hepar in drawTherapeutic range for APTT's is 68 - 104 seconds Performed By: #### L [id number] #### [facility] LAB [address] [place], [place] [address] Azam Pickering M.D. [id number] BASIC METABOLIC PANELon 06-2 Anion gap [Moles/Vol] 12 mmol/L Normal 10-20 [facility] Comment on above: Order Comment: [facility] has implemented the eGFR calculation approach that does not have a coefficient for race that conforms to the NKF-ASN Task Force Recommendations. Performed By: #### L [id number] #### [facility] LAB [address] [place], [place] [address] Azam Pickering M.D. [id number] Calcium [Mass/Vol] 8.8 mg/dL Normal 8.4-10.2 [facility] Comment on above: Order Comment: [facility] has implemented the eGFR calculation approach that does not have a coefficient for race that conforms to the NKF-ASN Task Force Recommendations. Performed By: #### L [id number] #### [facility] LAB [address] [place], [place] [address] Azam Pickering M.D. [id number] Chloride [Moles/Vol] 106 mmol/L Normal 98-108 [facility] Comment on above: Order Comment: [facility] has implemented the eGFR calculation approach that does not have a coefficient for race that conforms to the NKF-ASN Task Force Recommendations. Performed By: #### L [id number] #### [facility] LAB [address] [place], [place] [address] Azam Pickering M.D. [id number] Creatinine [Mass/Vol] 1.03 mg/dL Normal 0.80-1.30 [facility] Comment on above: Order Comment: [facility] has implemented the eGFR calculation approach that does not have a coefficient for race that conforms to the NKF-ASN Task Force Recommendations. Performed By: #### L [id number] #### [facility] [address] [address] Azam Pickering M.D. [id number] EGFR 73 mL/min/1.73 m2 Normal >=60 [facility] Comment on above: Order Comment: [facility] has implemented the eGFR calculation approach that does not have a coefficient for race that conforms to the NKF-ASN Task Force Recommendations. Result Comment: Isabell mated GFR was calculated using the 2020 CKD-EPI creatinine equation. Performed By: #### L [id number] #### [facility] [address] [address] Azam Pickering M.D. [id number] Glucose [Mass/Vol] 117 mg/dL High 65-99 [facility] Comment on above: Order Comment: [facility] has implemented the eGFR calculation approach that does not have a coefficient for race that conforms to the NKF-ASN Task Force Recommendations. Performed By: #### L [id number] #### [facility] [address] [address] Azam Pickering M.D. [id number] HCO3 (Bld) [Moles/Vol] 25 mmol/L Normal 21-32 [facility] Comment on above: Order Comment: [facility] has implemented the eGFR calculation approach that does not have a coefficient for race that conforms to the NKF-ASN Task Force Recommendations. Performed By: #### L [id number] #### [facility] [address] [address] Azam Pickering M.D. [id number] Potassium [Moles/Vol] 4.0 mmol/L Normal 3.5-5.1 [facility] Comment on above: Order Comment: [facility] has implemented the eGFR calculation approach that does not have a coefficient for race that conforms to the NKF-ASN Task Force Recommendations. Performed By: #### L [id number] #### [facility] LAB [address] [place] [address] Azam Pickering M.D. [id number] Sodium [Moles/Vol] 139 mmol/L Normal 135-145 [facility] Comment on above: Order Comment: [facility] has implemented the eGFR calculation approach that does not have a coefficient for race that conforms to the NKF-ASN Task Force Recommendations. Performed By: #### L [id number] #### LAB [address] [place] [address] Azam Pickering M.D. [id number] Urea nitrogen [Mass/Vol] 10 mg/dL Normal 8- [facility] Comment on above: Order Comment: [facility] has implemented the eGFR calculation approach that does not have a coefficient for race that conforms to the NKF-ASN Task Force Recommendations. Performed By: #### L [id number] #### LAB [address] [place] [address] Azam Pickering M.D. [id number] Urea nitrogen/Creatinine [Mass ratio] 9.7 mg/mg Low 10.0-20.0 [facility] Comment on above: Order Comment: [facility] has implemented the eGFR calculation approach that does not have a coefficient for race that conforms to the NKF-ASN Task Force Recommendations. Performed By: #### L [id number] #### LAB [address] [place] [address] Azam Pickering M.D. [id number] CBC WITH AUTO DIFFERENTIALon 08-09-2024 AUTO NRBC 0.0 % Normal [facility] Comment on above: Performed By: #### L [id number] #### MH LAB [address] [place] [address] Azam Pickering M.D. [id number] AUTO NRBC ABS COUNT 0.00 K/mcL Normal 0.00-0.00 [facility] Comment on above: Performed By: #### L [id number] #### MH LAB [address] [place] [address] Azam Pickering M.D. [id number] BASOPHILS ABSOLUTE COUNT 0.02 K/mcL Normal 0.00-0.30 [facility] Comment on above: Performed By: #### L [id number] #### MH LAB [address] [place] [address] Azam Pickering M.D. [id number] Basophils/100 WBC (Bld) 0.3 % Normal [facility] Comment on above: Performed By: #### L [id number] #### LAB [address] [place] [address] Azam Pickering M.D. [id number] Eosinophils (Bld) [#/Vol] 0.24 10*3/uL Normal 0.00-0.50 [facility] Comment on above: Performed By: #### L [id number] #### LAB [address] [place] [address] Azam Pickering M.D. [id number] Eosinophils/100 WBC (Bld) 4.1 % Normal [facility] Comment on above: Performed By: #### L [id number] #### LAB [address] [place] [address] Azam Pickering M.D. [id number] Erythrocyte distribution width (RBC) [Ratio] 12.9 % Normal 11.6-14.8 [facility] Comment on above: Performed By: #### L [id number] #### LAB [address] [place] [address] Azam Pickering M.D. [id number] Hematocrit (Bld) [Volume fraction] 39.4 % Low 41.0-53.0 [facility] Comment on above: Performed By: #### L [id number] #### LAB [address] [place] [address] Azam Pickering M.D. [id number] Hemoglobin (Bld) [Mass/Vol] 13.2 g/dL Low 13.5-17.5 [facility] Comment on above: Performed By: #### L [id number] #### LAB [address] [place] [address] Azam Pickering M.D. [id number] IG ABSOLUTE 0.04 K/mcL Normal 0.00-0.30 [facility] Comment on above: Performed By: #### L [id number] #### MH LAB [address] [place] [address] Azam Pickering M.D. [id number] IG PERCENT 0.70 % [facility] Comment on above: Result Comment: The IG parameter is the percentage of metamyelocytes, myelocytes and promyelocytes. An immature granulocyte count (IG) of 1% or more suggests the possibility of infection, an IG count of 3% is very likely related to an infection. Performed By: #### L [id number] #### LAB [address] [place] [address] Azam Pickering M.D. [id number] Lymphocytes (Bld) [#/Vol] 0.58 10*3/uL Low 0.90-4.00 [facility] Comment on above: Performed By: #### L [id number] #### LAB [address] [place] [address] Azam Pickering M.D. [id number] Lymphocytes/100 WBC (Bld) 9.9 % Normal [facility] Comment on above: Performed By: #### L [id number] #### LAB [address] [place] [address] Azam Pickering M.D. [id number] MCH (RBC) [Entitic mass] 31.7 pg Normal 26.0-34.0 [facility] Comment on above: Performed By: #### L [id number] #### LAB [address] [place] [address] Azam Pickering M.D. [id number] MCV (RBC) [Entitic vol] 94.7 fL Normal 80.0-100.0 [facility] Comment on above: Performed By: #### L [id number] #### LAB [address] [place] [address] Azam Pickering M.D. [id number] MEAN CORPUSCULAR HEMOGLOBIN CONC 33.5 g/dL Normal 31.0-37.0 [facility] Comment on above: Performed By: #### L [id number] #### LAB [address] [place] [address] Azam Pickering M.D. [id number] Monocytes (Bld) [#/Vol] 0.85 10*3/uL Normal 0.30-0.90 [facility] Comment on above: Performed By: #### L [id number] #### LAB [address] [place] [address] Azam Pickering M.D. [id number] Monocytes/100 WBC (Bld) 14.6 % Normal [facility] Comment on above: Performed By: #### L [id number] #### LAB [address] [place] [address] Azam Pickering M.D. [id number] NEUTROPHILS ABSOLUTE COUNT 4.11 K/mcL Normal 1.70-7.00 [facility] Comment on above: Performed By: #### L [id number] #### LAB [address] [place] [address] Azam Pickering M.D. [id number] Neutrophils/100 WBC (Bld) 70.4 % Normal [facility] Comment on above: Performed By: #### L [id number] #### LAB [address] [place] [address] Azam Pickering M.D. [id number] Platelet mean volume (Bld) [Entitic vol] 9.7 fL Normal 9.4-12.4 [facility] Comment on above: Performed By: #### L [id number] #### LAB [address] [place] [address] Azam Pickering M.D. [id number] Platelets (Bld) [#/Vol] 82 10*3/uL Low 150-400 [facility] Comment on above: Performed By: #### L [id number] #### LAB [address] [place] [address] Azam Pickering M.D. [id number] RBC (Bld) [#/Vol] 4.16 10*6/uL Low 4.50-5.90 [facility] Comment on above: Performed By: #### L [id number] #### LAB [address] [place] [id number] Azam Pickering M.D. [id number] WBC (Bld) [#/Vol] 5.84 10*3/uL Normal 4.50-11.00 [facility] Comment on above: Performed By: #### L [id number] #### LAB [address] [place] [address] Azam Pickering M.D. [id number] [facility] Glucose [Mass/Vol] 133 mg/dL High [address] [place] [address] Comment on above: Performed By: #### 4 [id number] #### LAB [address] [place] [address] Azam Pickering M.D. [id number] Glucose [Mass/Vol] 121 mg/dL [address] Comment on above: Performed By: #### 4 [id number] #### LAB [address] [place] [address] Azam Pickering M.D. [id number] Glucose [Mass/Vol] 102 mg/dL [address] Comment on above: Performed By: #### 4 [id number] #### LAB [address] [place] [address] Azam Pickering M.D. [id number] PT/INRon 08-09-2024 INR Coag (PPP) [Relative time] 1.2 {INR} High 0.8-1.1 [facility] Comment on above: Order Comment: Jesus mills the induction phase of oral anticoagulation, the INR may not reflect the anticoagulation status of the patient. Therapeutic ranges for INR's are:Most clinical situations: INR 2.0-3.0Mechanical Prosthetic Valve: INR 2.5-3.5Critical: INR >5.0 Performed By: #### L [id number] #### LAB [address] [place] [address] Azam Pickering M.D. [id number] PT Coag (PPP) [Time] 15.8 s High 11.8-14.3 [facility] Comment on above: Order Comment: Jesus mills the induction phase of oral anticoagulation, the INR may not reflect the anticoagulation status of the patient. Therapeutic ranges for INR's are:Most clinical situations: INR 2.0-3.0Mechanical Prosthetic Valve: INR 2.5-3.5Critical: INR >5.0 Performed By: #### L [id number] #### LAB [address] [place] [address] Azam Pickering M.D. [id number] APTTon 08-08-2024 aPTT Coag (d) [Time] 59 s High 23-34 [facility] Comment on above: Order Comment: For gale meraz dripTherapeutic range for APTT's is 68 - 104 seconds Performed By: #### L [id number] #### IVONE LAB [address] [place] [address] Azam Pickering M.D. [id number] BASIC METABOLIC PANELon 07-17 Anion gap [Moles/Vol] 14 mmol/L Normal 10-20 [facility] Comment on above: Order Comment: [facility] has implemented the eGFR calculation approach that does not have a coefficient for race that conforms to the NKF-ASN Task Force Recommendations. Performed By: #### L [id number] #### LAB [address] [place] [address] Azam Pickering M.D. [id number] Calcium [Mass/Vol] 9.1 mg/dL Normal 8.4-10.2 [facility] Comment on above: Order Comment: [facility] has implemented the eGFR calculation approach that does not have a coefficient for race that conforms to the NKF-ASN Task Force Recommendations. Performed By: #### L [id number] #### LAB [address] [place] [address] Azam Pickering M.D. [id number] Chloride [Moles/Vol] 106 mmol/L Normal 98-108 [facility] Comment on above: Order Comment: [facility] has implemented the eGFR calculation approach that does not have a coefficient for race that conforms to the NKF-ASN Task Force Recommendations. Performed By: #### L [id number] #### MH LAB [address] [place] [address] Azam Pickering M.D. [id number] Creatinine [Mass/Vol] 1.12 mg/dL Normal 0.80-1.30 [facility] Comment on above: Order Comment: [facility] has implemented the eGFR calculation approach that does not have a coefficient for race that conforms to the NKF-ASN Task Force Recommendations. Performed By: #### L [id number] #### MH LAB [address] [place] [address] Azam Pickering M.D. [id number] EGFR 66 mL/min/1.73 m2 Normal >=60 [facility] Comment on above: Order Comment: [facility] has implemented the eGFR calculation approach that does not have a coefficient for race that conforms to the NKF-ASN Task Force Recommendations. Result Comment: Isabell mated GFR was calculated using the 2020 CKD-EPI creatinine equation. Performed By: #### L [id number] #### MH LAB [address] [place] [address] Azam Pickering M.D. [id number] Glucose [Mass/Vol] 125 mg/dL High 65-99 [facility] Comment on above: Order Comment: [facility] has implemented the eGFR calculation approach that does not have a coefficient for race that conforms to the NKF-ASN Task Force Recommendations. Performed By: #### L [id number] #### MH LAB [address] [place] [address] Azam Pickering M.D. [id number] HCO3 (Bld) [Moles/Vol] 25 mmol/L Normal 21-32 [facility] Comment on above: Order Comment: [facility] has implemented the eGFR calculation approach that does not have a coefficient for race that conforms to the NKF-ASN Task Force Recommendations. Performed By: #### L [id number] #### MH LAB [address] [place] [address] Azam Pickering M.D. [id number] Potassium [Moles/Vol] 3.8 mmol/L Normal 3.5-5.1 [facility] Comment on above: Order Comment: [facility] has implemented the eGFR calculation approach that does not have a coefficient for race that conforms to the NKF-ASN Task Force Recommendations. Performed By: #### L [id number] #### MH LAB [address] [place] [address] Azam Pickering M.D. [id number] Sodium [Moles/Vol] 141 mmol/L Normal 135-145 [facility] Comment on above: Order Comment: [facility] has implemented the eGFR calculation approach that does not have a coefficient for race that conforms to the NKF-ASN Task Force Recommendations. Performed By: #### L [id number] #### MH LAB [address] [place] [address] Azam Pickering M.D. [id number] Urea nitrogen [Mass/Vol] 14 mg/dL Normal 8-25 [facility] Comment on above: Order Comment: [facility] has implemented the eGFR calculation approach that does not have a coefficient for race that conforms to the NKF-ASN Task Force Recommendations. Performed By: #### L [id number] #### MH LAB [address] [place] [address] Azam Pickering M.D. [id number] Urea nitrogen/Creatinine [Mass ratio] 12.5 mg/mg Normal 10.0-20.0 [facility] Comment on above: Order Comment: [facility] has implemented the eGFR calculation approach that does not have a coefficient for race that conforms to the NKF-ASN Task Force Recommendations. Performed By: #### L [id number] #### MH LAB [address] [place] [address] Azam Pickering M.D. [id number] CBCon 08-08-2024 AUTO NRBC 0.0 % Normal [facility] Comment on above: Order Comment: While on heparin Performed By: #### L [id number] #### MH LAB [address] [place] [address] Azam Pickering M.D. [id number] AUTO NRBC ABS COUNT 0.00 K/mcL Normal 0.00-0.00 [facility] Comment on above: Order Comment: While on heparin Performed By: #### L [id number] #### LAB [address] [place] [address] Azam Pickering M.D. [id number] Erythrocyte distribution width (RBC) [Ratio] 12.9 % Normal 11.6-14.8 [facility] Comment on above: Order Comment: While on heparin Performed By: #### L [id number] #### IVONE LAB [address] [place] [address] Azam Pickering M.D. [id number] Hematocrit (Bld) [Volume fraction] 39.8 % Low 41.0-53.0 [facility] Comment on above: Order Comment: While on heparin Performed By: #### L [id number] #### LAB [address] [place] [address] Azam Pickering M.D. [id number] Hemoglobin (Bld) [Mass/Vol] 13.3 g/dL Low 13.5-17.5 [facility] Comment on above: Order Comment: While on heparin Performed By: #### L [id number] #### LAB [address] [place] [address] Azam Pickering M.D. [id number] MCH (RBC) [Entitic mass] 32.1 pg Normal 26.0-34.0 [facility] Comment on above: Order Comment: While on heparin Performed By: #### L [id number] #### LAB [address] [place] [address] Azam Pickering M.D. [id number] MCV (RBC) [Entitic vol] 96.1 fL Normal 80.0-100.0 [facility] Comment on above: Order Comment: While on heparin Performed By: #### L [id number] #### IVONE LAB [address] [place] [address] Azam Pickering M.D. [id number] MEAN CORPUSCULAR HEMOGLOBIN CONC 33.4 g/dL Normal 31.0-37.0 [facility] Comment on above: Order Comment: While on heparin Performed By: #### L [id number] #### LAB [address] [place] [address] Azam Pickering M.D. [id number] Platelet mean volume (Bld) [Entitic vol] 9.6 fL Normal 9.4-12.4 [facility] Comment on above: Order Comment: While on heparin Performed By: #### L [id number] #### MH LAB [address] [place] [address] Azam Pickering M.D. [id number] Platelets (Bld) [#/Vol] 78 10*3/uL Low 150-400 [facility] Comment on above: Order Comment: While on heparin Performed By: #### L [id number] #### MH LAB [address] [place] [address] Azam Pickering M.D. [id number] RBC (Bld) [#/Vol] 4.14 10*6/uL Low 4.50-5.90 [facility] Comment on above: Order Comment: While on heparin Performed By: #### L [id number] #### LAB [address] [place] [address] Azam Pickering M.D. [id number] WBC (Bld) [#/Vol] 5.58 10*3/uL Normal 4.50-11.00 [facility] Comment on above: Order Comment: While on heparin Performed By: #### L [id number] #### MH LAB [address] [place] [address] Azam Pickering M.D. [id number] CBC WITH AUTO DIFFERENTIALon 08-08-2024 AUTO NRBC 0.0 % Normal [facility] Comment on above: Performed By: #### L [id number] #### MH LAB [address] [place] [address] Azam Pickering M.D. [id number] AUTO NRBC ABS COUNT 0.00 K/mcL Normal 0.00-0.00 [facility] Comment on above: Performed By: #### L [id number] #### LAB [address] [place] [address] Azam Pickering M.D. [id number] BASOPHILS ABSOLUTE COUNT 0.03 K/mcL Normal 0.00-0.30 [facility] Comment on above: Performed By: #### L [id number] #### LAB [address] [place] [address] Azam Pickering M.D. [id number] Basophils/100 WBC (Bld) 0.5 % Normal [facility] Comment on above: Performed By: #### L [id number] #### LAB [address] [place] [address] Azam Pickering M.D. [id number] Eosinophils (Bld) [#/Vol] 0.12 10*3/uL Normal 0.00-0.50 [facility] Comment on above: Performed By: #### L CF2587 #### LAB [address] [place] [address] Azam Pickering M.D. [id number] Eosinophils/100 WBC (Bld) 2.1 % Normal [facility] Comment on above: Performed By: #### L [id number] #### LAB [address] [place] [address] Azam Pickering M.D. [id number] Erythrocyte distribution width (RBC) [Ratio] 12.8 % Normal 11.6-14.8 [facility] Comment on above: Performed By: #### L [id number] #### LAB [address] [place] [address] Azam Pickering M.D. [id number] Hematocrit (Bld) [Volume fraction] 41.4 % Normal 41.0-53.0 [facility] Comment on above: Performed By: #### L [id number] #### LAB [address] [place] [address] Azam Pickering M.D. [id number] Hemoglobin (Bld) [Mass/Vol] 13.7 g/dL Normal 13.5-17.5 [facility] Comment on above: Performed By: #### L [id number] #### LAB [address] [place] [address] Azam Pickering M.D. [id number] IG ABSOLUTE 0.02 K/mcL Normal 0.00-0.30 [facility] Comment on above: Performed By: #### L [id number] #### LAB [address] [place] [address] Azam Pickering M.D. [id number] IG PERCENT 0.30 % [facility] Comment on above: Result Comment: The IG parameter is the percentage of metamyelocytes, myelocytes and promyelocytes. An immature granulocyte count (IG) of 1% or more suggests the possibility of infection, an IG count of 3% is very likely related to an infection. Performed By: #### L [id number] #### LAB [address] [place] [address] Azam Pickering M.D. [id number] Lymphocytes (Bld) [#/Vol] 0.78 10*3/uL Low 0.90-4.00 [facility] Comment on above: Performed By: #### L [id number] #### LAB [address] [place] [address] Azam Pickering M.D. [id number] Lymphocytes/100 WBC (Bld) 13.4 % Normal [facility] Comment on above: Performed By: #### L [id number] #### LAB [address] [place] [address] Azam Pickering M.D. [id number] MCH (RBC) [Entitic mass] 32.2 pg Normal 26.0-34.0 [facility] Comment on above: Performed By: #### L BX9201 #### LAB [address] [place] [address] Azam Pickering M.D. [id number] MCV (RBC) [Entitic vol] 97.2 fL Normal 80.0-100.0 [facility] Comment on above: Performed By: #### L [id number] #### LAB [address] [place] [address] Azam Pickering M.D. [id number] MEAN CORPUSCULAR HEMOGLOBIN CONC 33.1 g/dL Normal 31.0-37.0 [facility] Comment on above: Performed By: #### L [id number] #### LAB [address] [place] [address] Azam Pickering M.D. [id number] Monocytes (Bld) [#/Vol] 0.88 10*3/uL Normal 0.30-0.90 [facility] Comment on above: Performed By: #### L XC5762 #### LAB [address] [place] [address] Azam Pickering M.D. [id number] Monocytes/100 WBC (Bld) 15.1 % Normal [facility] Comment on above: Performed By: #### L IJ1032 #### LAB [address] [place] [address] Azam Pickering M.D. [id number] NEUTROPHILS ABSOLUTE COUNT 4.01 K/mcL Normal 1.70-7.00 [facility] Comment on above: Performed By: #### L QV1204 #### LAB [address] [place] [address] Azam Pickering M.D. [id number] Neutrophils/100 WBC (Bld) 68.6 % Normal [facility] Comment on above: Performed By: #### L ZQ4106 #### LAB [address] [place] [address] Azam Pickering M.D. [id number] Platelet mean volume (Bld) [Entitic vol] 10.1 fL Normal 9.4-12.4 [facility] Comment on above: Performed By: #### L [id number] #### LAB [address] [place] [address] Azam Pickering M.D. [id number] Platelets (Bld) [#/Vol] 79 10*3/uL Low 150-400 [facility] Comment on above: Performed By: #### L ZT3025 #### MH LAB [address] [place], [place] [address] Azam Pickering M.D. [id number] RBC (Bld) [#/Vol] 4.26 10*6/uL Low 4.50-5.90 [facility] Comment on above: Performed By: #### L [id number] #### MH LAB [address] [place] [address] Azam Pickering M.D. [id number] WBC (Bld) [#/Vol] 5.84 10*3/uL Normal 4.50-11.00 [facility] Comment on above: Performed By: #### L [id number] #### MH LAB [address] [place], [place] [address] Azam Pickering M.D. 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 Patient's LKW was 2130 on 08/06. Neurology was consulted due to concern for stroke. MRI brain confirmed subacute infarction in right superior cerebellar hemisphere. CTA head/neck and echo are pending. Patient's vascular risk factors include hypertension, advanced age, atrial fibrillation, and untreated NAJMA. Patient's reports that she stopped Eliquis a month ago as it was too expensive, and someone from cardiology office told her that he needn't be on it. PLAN: - CTA head/neck and echo ordered - [employer] consulted for dysphagia - Patient stopped taking Eliquis a month ago as it was expensive. Continue home aspirin 81 mg daily. Checked with Dr. Cox who is okay with resuming anticoagulation, will do Coumadin instead of Eliquis due to cost. - Pharmacy consulted for assistance with Coumadin.Will bridge with heparin stroke nomogram, no boluses. - Continue Lipitor 40 mg daily - Target normotension as LKW was >24 hours ago - PT/OT consult - Outpatient sleep medicine referral for untreated NAJMA - Outpatient follow-up with stroke clinic Soren Mackenzie MD Staff Neurologist [facility] Admitted with these risk variables:Cerebral Infarction NIHSS = 4. Please see assessment and plan for further details. DIAGNOSTIC TESTING SUMMARY: Pending Lab and Radiology Results Order Current Status Lipid Panel In process Resulted Testing: (MRI/CT/XR, EEG, EMG, CSF, Cardiac, Labs) CBC-within normal limits CMP-within normal limits Urine drug screen-negative [id number] Lipid panel: LDL-48 MRI brain w/o contrast- Subacute infarction in right superior cerebellar hemisphere without any surrounding mass effect. Chronic infarction in right posterior frontal lobe and bilateral cerebellar hemispheres noted. SUBJECTIVE: Chief Complaint/Reason for Consult: Stroke Informant(s): Patient and History of Present Illness: Kevin White is a 83 y.o. 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 Patient's LKW was 2130 on 08/06. Neurology was consulted due to concern for stroke. Patient was reportedly in his usual state of health when he went to bed at 9:30 PM on 08/06. Patient woke up the next morning with generalized weakness where he felt like he could not walk. noticed that he was slurring his words and he also had trouble swallowing which prompted the hospital admission. He denies any associated numbness, vision loss, dizziness. 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 Review of Systems: All systems reviewed and negative except pertinent positives and negatives documented in the History of Present Illness (HPI). History: Past Medical History: Diagnosis Date Arthritis Back pain CHF (congestive heart failure) (HCC) COPD (chronic obstructive pulmonary disease) (HCC) Coronary artery disease Diabetes mellitus (HCC) Diabetes mellitus, type 2 (HCC) Disease of thyroid gland GERD (gastroesophageal reflux disease) Hernia of abdominal wall Hyperlipidemia Hypertension Myocardial infarction (HCC) Sleep apnea, obstructive refuses to use c-pap Stroke (HCC) Past Surgical History: Procedure Laterality Date CABG AVR W/ MAZE Bilateral 08/12/2021 Procedure: CORONARY ARTERY BYPASS GRAFT TIMES THREE (krueger-lad, svg-d1, svg-drca)WITH ENDOVEIN HARVEST, Aortic valve replacement (27mm Paul Inspiris), full LA MAZE (Encompass RFA box, RFA HEATHER, cryo RA caval and RAA line), LEFT ATRIAL APPENDAGE LIGATION (40mm AtriCLIP), TRANSESOPHAGEAL ECHOCARDIOGRAM; Surgeon: Luis Beasley MD; Location: [facility]; Service: Cardiothoracic CARDIAC CATHETERIZATION CARDIAC CATHETERIZATION Bilateral 07/01/2021 No intervention, right radial CARDIAC CATHETERIZATION N/A 07/01/2021 Procedure: Coronary Angiogram; Surgeon: Shmuel Villalpando MD; Location: [facility]; Service: Cardiovascular CARDIAC CATHETERIZATION N/A 07/01/2021 Procedure: Right Heart Cath; Surgeon: Shmuel Villalpando MD; Location: [facility]; Service: Cardiovascul (more content not included)... Normal [facility] CT ANGIOGRAM HEAD NECKon CT ANGIOGRAM HEAD NECK EXAMINATION: CT ANGIOGRAM HEAD NECK, 08/08/2024 1:55 pm TECHNIQUE: Routine protocol multiplanar reformatted axial CTA acquisition following uneventful intravenous administration of nonionic iodinated contrast media. MIP and 3D VR reconstructions. Source data reviewed on an independent 3-D workstation. Preliminary multiplanar reformatted noncontrast head CT. IOPAMIDOL 370 MG IODINE/ML (76 %) INTRAVENOUS SOLUTION - 75 mL, At least one of the following dose reduction techniques was utilized: Iterative reconstruction, and/or Automatic Exposure Control, and/or mA/kV adjustment based on body size. INDICATION: Stroke/TIA, determine embolic source Injury/Trauma or Illness?:Illness/Othe r How long have you had these symptoms (acute/chronic)?:Acut e Reason for exam?:dysphagia, ams, weakness Type of Exam?:Initial Additional signs and symptoms?:. I63.9 Cerebrovascular accident (CVA), unspecified mechanism (HCC) COMPARISON: 08/07/[address], 08/07/2024 brain MRI, 01/06/2023 craniocervical CTA FINDINGS: Head CT: Stable small acute superior right cerebellar cortical infarct. Small chronic right frontal opercular MCA territory infarct. Small chronic anterior superior right LILI territory infarct. Small chronic posterior cerebellar infarcts. Moderate generalized cerebral volume loss. Brain and CSF spaces are not otherwise remarkable. Cranial CTA: 1 no significant intracranial arterial occlusive change. No aneurysm or vascular malformation defined. Unremarkable intracranial venous opacification. Cervical CTA: Left aortic arch. Moderate calcific plaque burden at carotid bifurcations. Approximate 50% proximal and mid cervical left ICA stenosis by NASCET criteria. Dominant right vertebral artery. Moderate proximal right vertebral arterial stenosis.. Extracranial carotid and vertebral arterial course, caliber and luminal contour not otherwise remarkable. OTHER: Moderate C3-4 and C6-7 spondylosis. Notable left uncovertebral osteophyte foraminal encroachment. C3-4 posterior disc osteophyte appears to impinge upon ventral cord. Coarse reticulonodular posterior right upper lobe infiltrate. Few additional scattered left upper lobe nodular densities, + more likely postinflammatory. CABG. IMPRESSION: Stable small acute superior right cerebellar cortical infarct No emergent thrombotic large vessel occlusion See additional anatomic observations above Workstation ID: [id number] Dictated by: CEE SULLIVAN on WedAug 08, 2024 3:37:48 PM EDT Transcribed by: CEE SULLIVAN on WedAug 08, 2024 3:37:48 PM EDT Finalized by: CEE SULLIVAN on WedAug 08, 2024 3:37:48 PM EDT Normal [facility] Comment on above: Order Comment: Injur y/Trauma or Illness?:Illness/OtherHow long have you had these symptoms (acute/chronic)?:AcuteReason for exam?:dysphagia, ams, weaknessType of Exam?:InitialAdditional signs and symptoms?:. ECHOCARDIOGRAM COMPLETE W CO NTRASTon 08-08-2024 ECHOCARDIOGRAM COMPLETE W CONTRAST Patient Info Name: KEVIN WHITE Age: 83 years : 1940 Gender: Male Ht: 183 cm Wt: 88 kg BSA: 2.13 m2 HR: 73 bpm BP: 148 / 81 mmHg Heart Rhythm: Atrial Fibrillation Technical Quality: Fair Exam Date: 08/08/2024 10:21 AM Patient Status: Inpatient Upscale Security Officer: Asuncion Vieyra RDCS Exam Type: ECHOCARDIOGRAM COMPLETE W CONTRAST Study Info Indications G45.9 - Transient cerebral ischemic attack, unspecified Referring Physician: JAG Yu; [id number] BMI: 26.45 kg/m2 Summary 1. This study was technically limited, Definity IV contrast was used to enhance endocardial definition. 2. Left ventricular systolic function is mildly reduced with an ejection fraction by Biplane Method of Discs of 41 %. 3. There is moderate left ventricular concentric hypertrophy. 4. Normal RV size, reduced RV function. 5. Status post aortic valve replacement with a 27 mm Inspiris bioprosthetic. V-max 2.9 m/s, mean gradient of 22 mmHg. Dimensionless index of 0.3. Overall gradients are increased from previous echo, but leaflets appear freely mobile. AV acceleration time 91 ms not suggestive of severe prosthetic stenosis. . 6. There is mild tricuspid valve regurgitation. 7. There is no pulmonary hypertension, estimated right ventricle systolic pressure is 36 mmHg. History/Risk Factors Hypertension: Yes Dyslipidemia: Yes Diabetic Therapy: Oral Myocardial Infarction (TN): Yes Chronic Lung Disease: Yes Coronary Artery Disease (CAD) Yes Diabetes Mellitus: Yes COPD: Not Treated Tobacco Use: Never Cerebrovascular Disease: CVA Family History: Coronary Artery Disease Valve Disease - AV: Severe History/Risk Factors Obstructive sleep apnea. Patient has prior CABG on 08/12/2021. Prior Interventions PCI: Yes CABG: Yes Valve Surgery: Yes Type of Valve Surgery: AV Bioprosthetic Replacement Date of CAB08/12/2021 Most Recent Valve Surgery: 08/12/2021 Transcatheter Intervention: HEATHER Closure Replacement Valve Size: 27 mm Inspiris Replacement Valve Size: 40mm atriclip Procedure(s): Complete two-dimensional, color flow and Doppler transthoracic echocardiogram is performed with contrast. Definity explained to patient. Patient verbalizes understanding and agrees to proceed. Definity 1.3ml/8.7ml normal sterile saline 1 ml total given IV over 30-60 seconds. Left Ventricle Left ventricular chamber dimension is normal. Left ventricular systolic function is mildly reduced with an ejection fraction by Biplane Method of Discs of 41 %. There is moderate left ventricular concentric hypertrophy. Left ventricular segmental wall motion is normal. The left ventricular diastolic function is indeterminate. Right Ventricle Normal RV size, reduced RV function. Left Atria Left atrial chamber is severely enlarged with a left atrial volume index of 54 ml/m2 by BP MOD. Right Atria Right atrial chamber dimension is normal. Aortic Valve Status post aortic valve replacement with a 27 mm Inspiris bioprosthetic. V-max 2.9 m/s, mean gradient of 22 mmHg. Dimensionless index of 0.3. Overall gradients are increased from previous echo, but leaflets appear freely mobile. AV acceleration time 91 ms not suggestive of severe prosthetic stenosis. . There is no aortic valve regurgitation. Pulmonic Valve The pulmonic valve is normal. There is no pulmonic valve stenosis. There is no pulmonic regurgitation. Mitral Valve The mitral valve has normal leaflets and calcified annulus. There is no mitral valve stenosis. There is trace mitral valve regurgitation. Tricuspid Valve The tricuspid valve leaflets are normal. There is no significant tricuspid valve stenosis. There is mild tricuspid valve regurgitation. There is no pulmonary hypertension, estimated right ventricle systolic pressure is 36 mmHg. Pericardium/Pleural There is no pericardial effusion. Inferior Vena Cava Normal inferior vena cava with >50% collapse upon inspiration consistent with normal right atrial pressure. Aorta The aortic measurements are indexed to age and body surface area. The aortic root is normal measuring 3.6 cm with an index of 1.7 cm/m2. The proximal ascending aorta is normal measuring 3.5 cm with an index of 1.7 cm/m2. Wall Motion Scoring Wall Motion Scoring Index: 1.00 Left Ventricular Outflow Tract ------- Name Value Normal ------- LVOT 2D ------- LVOT Diameter 2.1 cm LVOT Doppler ------- LVOT Peak Velocity 0.9 m/s LVOT Peak Gradient 2 mmHg LVOT Mean Gradient 1 mmHg LVOT VTI 15 cm LVOT VTI/AV VTI Ratio 0.3 LVOT Stroke Volume 52 ml LVOT Stroke Index (more content not included)... Normal [facility] HEMOGLOBIN A1Con 08-08-2024 Glucose [Mass/Vol] 126 mg/dL High 74-114 [facility] Comment on above: Performed By: #### L [id number] #### [facility] [address] [address] Azam Pickering M.D. [id number] HbA1c (Bld) [Mass fraction] 6.0 % High 4.2-5.6 [facility] Comment on above: Performed By: #### L [id number] #### [facility] [address] [place], [place] [address] Azam Pickering M.D. [id number] LIPID PANELon 08-08-2024 Cholesterol [Mass/Vol] 106 mg/dL Normal 100-199 [facility] Comment on above: Order Comment: FASTI NG - patient should be NPO beginning 8pm night before lab draw Result Comment: [place] on[place] Cholesterol Education Program Guidelines: Cholesterol Desirable: <200 mg/dL Borderline High: 200-239 mg/dL High: greater than or equal to 240 mg/dL Performed By: #### L [id number] #### [facility] [address] [place], [place] [address] Azam Pickering M.D. [id number] Cholesterol in HDL [Mass/Vol] 35 mg/dL Low 40-59 [facility] Comment on above: Order Comment: FASTI NG - patient should be NPO beginning 8pm night before lab draw Performed By: #### L [id number] #### LAB [address] [place], [place] [address] Azam Pickering M.D. [id number] Cholesterol.total/Choles terol in HDL [Mass ratio] 3.0 {ratio} Normal [facility] Comment on above: Order Comment: FASTI NG - patient should be NPO beginning 8pm night before lab draw Result Comment: Male s Cholesterol/HDL Ratio: Average risk: 5.0 1/2 average risk: 3.4 2 x average risk: 9.6 Performed By: #### L [id number] #### [facility] [address] [place], [place] [address] Azam Pickering M.D. [id number] LDL CHOLESTEROL CALCULATED 48 mg/dL Normal 10-130 [facility] Comment on above: Order Comment: FASTI NG - patient should be NPO beginning 8pm night before lab draw Result Comment: [place] Cholesterol Education Program Guidelines: LDL Cholesterol Optimal: <100 mg/dL Near Optimal/above Optimal: 100-129 mg/dL Borderline High: 130-159 mg/dL High: 160-189 mg/dL Very High: greater than or equal to 190 mg/dL Performed By: #### L [id number] #### LAB [address] [place], [place] [address] Azam Pickering M.D. [id number] NON HDL CHOL 71 mg/dL Normal [facility] Comment on above: Order Comment: FASTI NG - patient should be NPO beginning 8pm night before lab draw Result Comment: [place] Cholesterol Education Program Guidelines: NON HDL Cholesterol Desirable: <130 mg/dL Borderline High: 130-159 mg/dL High: 160-189 mg/dL Very High: > or = 190 mg/dL Performed By: #### L [id number] #### [facility] [address] [place], [place] [address] Azam Pickering M.D. [id number] Triglyceride [Mass/Vol] 114 mg/dL Normal 30-150 [facility] Comment on above: Order Comment: FASTI NG - patient should be NPO beginning 8pm night before lab draw Result Comment: [place] Cholesterol Education Program Guidelines: Triglyceride Normal: <150 mg/dL Borderline High: 150-199 mg/dL High: 200-499 mg/dL Very High: greater than or equal to 500 mg/dL Performed By: #### L [id number] #### LAB [address] [address] Azam Pickering M.D. [id number] POC GLUCOSE - [facility] 025 Glucose [Mass/Vol] 121 mg/dL High [address] [place] [address] Comment on above: Performed By: #### [id number] #### [facility] [address] [place] [address] Azam Pickering M.D. [id number] Glucose [Mass/Vol] 155 mg/dL [address] Comment on above: Performed By: #### 4 [id number] #### LAB [address] [place] [address] Azam Pickering M.D. [id number] Glucose [Mass/Vol] 123 mg/dL [address] Comment on above: Performed By: #### [id number] #### LAB [address] [place] [address] Azam Pickering M.D. [id number] Glucose [Mass/Vol] 120 mg/dL [address] Comment on above: Performed By: #### 4 [id number] #### [facility] [address] [place] [address] Azam Pickering M.D. [id number] ALCOHOL, MEDICALon ALCOHOL MEDICAL < Normal <10.0 [facility] Comment on above: Result Comment: Alco hol cutoff: <10.00 mg/dL = None Detected Performed By: #### 4 [id number] #### [facility] [address] [address] Azam Pickering M.D. [id number] APTTon 08-07-2024 aPTT Coag (Bld) [Time] 22 s Low 23-34 [facility] Comment on above: Order Comment: Thera peutic range for APTT's is 68 - 104 seconds Performed By: #### L [id number] #### LAB [address] [place] [address] Azam Pickering M.D. [id number] CBC WITH AUTO DIFFERENTIALon 08-07-2024 AUTO NRBC 0.0 % Normal [facility] Comment on above: Performed By: #### L [id number] #### LAB [address] [address] Azam Pickering M.D. [id number] AUTO NRBC ABS COUNT 0.00 K/mcL Normal 0.00-0.00 [facility] Comment on above: Performed By: #### L [id number] #### LAB [address] [place] [address] Azam Pickering M.D. [id number] BASOPHILS ABSOLUTE COUNT 0.01 K/mcL Normal 0.00-0.30 [facility] Comment on above: Performed By: #### L [id number] #### LAB [address] [place] [address] Azam Pickering M.D. [id number] Basophils/100 WBC (Bld) 0.1 % Normal [facility] Comment on above: Performed By: #### L [id number] #### LAB [address] [place] [address] Azam Pickering M.D. [id number] Eosinophils (Bld) [#/Vol] 0.02 10*3/uL Normal 0.00-0.50 [facility] Comment on above: Performed By: #### L [id number] #### LAB [address] [place] [address] Azam Pickering M.D. [id number] Eosinophils/100 WBC (Bld) 0.2 % [facility] Comment on above: Performed By: #### L [id number] #### LAB [address] [place] [address] Azam Pickering M.D. [id number] Erythrocyte distribution width (RBC) [Ratio] 12.6 % Normal 11.6-14.8 [facility] Comment on above: Performed By: #### L [id number] #### LAB [address] [address] Azam Pickering M.D. [id number] Hematocrit (Bld) [Volume fraction] 43.3 % Normal 41.0-53.0 [facility] Comment on above: Performed By: #### L [id number] #### LAB [address] [address] Azam Pickering M.D. [id number] Hemoglobin (Bld) [Mass/Vol] 14.6 g/dL Normal 13.5-17.5 [facility] Comment on above: Performed By: #### L [id number] #### LAB [address] [place] [address] Azam Pickering M.D. [id number] IG ABSOLUTE 0.05 K/mcL Normal 0.00-0.30 [facility] Comment on above: Performed By: #### L [id number] #### LAB [address] [address] Azam Pickering M.D. [id number] IG PERCENT 0.50 % Normal [facility] Comment on above: Result Comment: The IG parameter is the percentage of metamyelocytes, myelocytes and promyelocytes. An immature granulocyte count (IG) of 1% or more suggests the possibility of infection, an IG count of 3% is very likely related to an infection. Performed By: #### L [id number] #### LAB [address] [place] [address] Azam Pickering M.D. [id number] Lymphocytes (Bld) [#/Vol] 0.59 10*3/uL Low 0.90-4.00 [facility] Comment on above: Performed By: #### L [id number] #### LAB [address] [place] [address] Azam Pickering M.D. [id number] Lymphocytes/100 WBC (Bld) 6.2 % Normal [facility] Comment on above: Performed By: #### L [id number] #### LAB [address] [address] Azam Pickering M.D. [id number] MCH (RBC) [Entitic mass] 31.9 pg Normal 26.0-34.0 [facility] Comment on above: Performed By: #### L [id number] #### LAB [address] [address] Azam Pickering M.D. [id number] MCV (RBC) [Entitic vol] 94.5 fL Normal 80.0-100.0 [facility] Comment on above: Performed By: #### L [id number] #### LAB [address] [address] Azam Pickering M.D. [id number] MEAN CORPUSCULAR HEMOGLOBIN CONC 33.7 g/dL Normal 31.0-37.0 [facility] Comment on above: Performed By: #### L [id number] #### LAB [address] [place] [address] Azam Pickering M.D. [id number] Monocytes (Bld) [#/Vol] 1.01 10*3/uL High 0.30-0.90 [facility] Comment on above: Performed By: #### L [id number] #### LAB [address] [address] Azam Pickering M.D. [id number] Monocytes/100 WBC (Bld) 10.5 % Normal [facility] Comment on above: Performed By: #### L [id number] #### [facility] [address] [address] Azam Pickering M.D. [id number] NEUTROPHILS ABSOLUTE COUNT 7.90 K/mcL High 1.70-7.00 [facility] Comment on above: Performed By: #### L [id number] #### LAB [address] [address] Azam Pickering M.D. [id number] Neutrophils/100 WBC (Bld) 82.5 % Normal [facility] Comment on above: Result Comment: Genie pheral smear reviewed manually Performed By: #### L [id number] #### [facility] [address] [address] Azam Pickering M.D. [id number] Platelet mean volume (Bld) [Entitic vol] 10.0 fL Normal 9.4-12.4 [facility] Comment on above: Performed By: #### L [id number] #### [facility] [address] [address] Azam Pickering M.D. [id number] Platelets (Bld) [#/Vol] 90 10*3/uL Low 150-400 [facility] Comment on above: Performed By: #### L [id number] #### [facility] [address] [address] Azam Pickering M.D. [id number] RBC (Bld) [#/Vol] 4.58 10*6/uL Normal 4.50-5.90 [facility] Comment on above: Performed By: #### L [id number] #### [facility] [address] [address] Azam Pickering M.D. [id number] WBC (Bld) [#/Vol] 9.58 10*3/uL Normal 4.50-11.00 [facility] Comment on above: Performed By: #### L [id number] #### LAB [address] [address] Azam Pickering M.D. [id number] COMPREHENSIVE METABOLIC PANE Juan Jose 08-07-2024 Albumin [Mass/Vol] 4.2 g/dL Normal 3.2-5.2 [facility] Comment on above: Order Comment: [facility] has implemented the eGFR calculation approach that does not have a coefficient for race that conforms to the NKF-ASN Task Force Recommendations. Performed By: #### L [id number] #### [facility] [address] [address] Azam Pickering M.D. [id number] ALP [Catalytic activity/Vol] 66 U/L Normal 40-150 [facility] Comment on above: Order Comment: [facility] has implemented the eGFR calculation approach that does not have a coefficient for race that conforms to the NKF-ASN Task Force Recommendations. Performed By: #### L [id number] #### LAB [address] [address] Azam Pickering M.D. [id number] ALT [Catalytic activity/Vol] 12 U/L Normal 0-50 U/L [facility] Comment on above: Order Comment: [facility] has implemented the eGFR calculation approach that does not have a coefficient for race that conforms to the NKF-ASN Task Force Recommendations. Performed By: #### L [id number] #### LAB [address] [address] Azam Pickering M.D. [id number] Anion gap [Moles/Vol] 15 mmol/L Normal 10-20 [facility] Comment on above: Order Comment: [facility] has implemented the eGFR calculation approach that does not have a coefficient for race that conforms to the NKF-ASN Task Force Recommendations. Performed By: #### L [id number] #### LAB [address] [address] Azam Pickering M.D. [id number] AST [Catalytic activity/Vol] 17 U/L Normal 0-50 U/L [facility] Comment on above: Order Comment: [facility] has implemented the eGFR calculation approach that does not have a coefficient for race that conforms to the NKF-ASN Task Force Recommendations. Performed By: #### L [id number] #### [facility] [address] [address] Azam Pickering M.D. [id number] Bilirubin [Mass/Vol] 0.7 mg/dL Normal 0.0-1.3 [facility] Comment on above: Order Comment: [facility] has implemented the eGFR calculation approach that does not have a coefficient for race that conforms to the NKF-ASN Task Force Recommendations. Performed By: #### L [id number] #### [facility] [address] [address] Azam Pickering M.D. [id number] Calcium [Mass/Vol] 9.4 mg/dL Normal 8.4-10.2 [facility] Comment on above: Order Comment: [facility] has implemented the eGFR calculation approach that does not have a coefficient for race that conforms to the NKF-ASN Task Force Recommendations. Performed By: #### L [id number] #### [facility] [address] [address] Azam Pickering M.D. [id number] Chloride [Moles/Vol] 102 mmol/L Normal 98-108 [facility] Comment on above: Order Comment: [facility] has implemented the eGFR calculation approach that does not have a coefficient for race that conforms to the NKF-ASN Task Force Recommendations. Performed By: #### L [id number] #### [facility] [address] [place] [address] Azam Pickering M.D. [id number] Creatinine [Mass/Vol] 1.10 mg/dL Normal 0.80-1.30 [facility] Comment on above: Order Comment: [facility] has implemented the eGFR calculation approach that does not have a coefficient for race that conforms to the NKF-ASN Task Force Recommendations. Performed By: #### L [id number] #### [facility] [address] [address] Azam Pickering M.D. [id number] EGFR 67 mL/min/1.73 m2 Normal >=60 [facility] Comment on above: Order Comment: [facility] has implemented the eGFR calculation approach that does not have a coefficient for race that conforms to the NKF-ASN Task Force Recommendations. Result Comment: Isabell mated GFR was calculated using the 2020 CKD-EPI creatinine equation. Performed By: #### L [id number] #### [facility] [address] [place] [address] Azam Pickering M.D. [id number] Glucose [Mass/Vol] 164 mg/dL High 65-99 [facility] Comment on above: Order Comment: [facility] has implemented the eGFR calculation approach that does not have a coefficient for race that conforms to the NKF-ASN Task Force Recommendations. Performed By: #### L [id number] #### [facility] [address] [address] Azam Pickering M.D. [id number] HCO3 (Bld) [Moles/Vol] 24 mmol/L Normal 21-32 [facility] Comment on above: Order Comment: [facility] has implemented the eGFR calculation approach that does not have a coefficient for race that conforms to the NKF-ASN Task Force Recommendations. Performed By: #### L [id number] #### [facility] [address] [address] Azam Pickering M.D. [id number] Potassium [Moles/Vol] 3.9 mmol/L Normal 3.5-5.1 [facility] Comment on above: Order Comment: [facility] has implemented the eGFR calculation approach that does not have a coefficient for race that conforms to the NKF-ASN Task Force Recommendations. Performed By: #### L [id number] #### [facility] [address] [address] Azam Pickering M.D. [id number] Protein [Mass/Vol] 6.3 g/dL Normal 6.0-8.0 [facility] Comment on above: Order Comment: [facility] has implemented the eGFR calculation approach that does not have a coefficient for race that conforms to the NKF-ASN Task Force Recommendations. Performed By: #### L [id number] #### [facility] [address] [address] Azam Pickering M.D. [id number] Sodium [Moles/Vol] 137 mmol/L Normal 135-145 [facility] Comment on above: Order Comment: [facility] has implemented the eGFR calculation approach that does not have a coefficient for race that conforms to the NKF-ASN Task Force Recommendations. Performed By: #### L [id number] #### LAB [address] [place], [place] [address] Azam Pickering M.D. [id number] Urea nitrogen [Mass/Vol] 17 mg/dL Normal 8-25 [facility] Comment on above: Order Comment: [facility] has implemented the eGFR calculation approach that does not have a coefficient for race that conforms to the NKF-ASN Task Force Recommendations. Performed By: #### L [id number] #### LAB [address] [address] Azam Pickering M.D. [id number] Urea nitrogen/Creatinine [Mass ratio] 15.5 mg/mg Normal 10.0-20.0 [facility] Center Comment on above: Order Comment: [facility] Laboratory Services has implemented the eGFR calculation approach that does not have a coefficient for race that conforms to the NKF-ASN Task Force Recommendations. Performed By: #### L [id number] #### LAB [address] [address] Azam Pickering M.D. [id number] CT HEAD WITHOUT CONTRAST (ST RO)on 08-07-2024 CT HEAD WITHOUT CONTRAST (STROKE) EXAMINATION: CT HEAD WITHOUT CONTRAST (STROKE) HISTORY: Injury/Trauma or Illness?:Illness/Othe r How long have you had these symptoms (acute/chronic)?:Acut e Reason for exam?:ams, dysphagia, weakness Type of Exam?:Initial Additional signs and symptoms?:NOT a stroke alert, ordering provider wants a stroke protocol COMPARISON: CT head 01/07/2023 TECHNIQUE: CT examination of the head without IV contrast. Total DLP: mGy.cm . Dose reduction techniques were achieved by using automated exposure control and/or adjustment of mA and/or kV according to patient size and/or use of iterative reconstruction technique. FINDINGS: Study Quality: Adequate. There is a prominence of the brain sulci and ventricle consistent with volume loss. There are patchy low-density changes in the periventricular deep white matter centrum semiovale which are nonspecific in appearance but likely represent chronic microvascular ischemic changes. There is a focal chronic infarction changes in the right frontal opercular associated with expected dilatation of the adjacent ventricle.. There is focal area of low-density changes with mild local mass effect in the right cerebellum superiorly concerning for acute infarction series 301 image 25. No other definite acute infarctions within limitations study. No definite other acute infarctions or intracranial hemorrhage within limitations study. Soft Tissues: No significant soft tissue swelling is present. Skull: There are no calvarial destructive lesions or fractures. Sinuses and Mastoids: The visualized portions of the paranasal sinuses and mastoid air cells are clear . IMPRESSION: 1. Focal acute infarction in the right cerebellum superiorly series 301, image 25. 2. 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 3. Cerebral volume loss with chronic microvascular ischemic changes. Workstation ID: [id number] Dictated by: CHLOE THOMAS on WedAug 07, 2024 12:35:50 PM EDT Transcribed by: CHLOE THOMAS on WedAug 07, 2024 12:35:50 PM EDT Finalized by: CHLOE THOMAS on WedAug 07, 2024 12:35:50 PM EDT Normal [facility] Comment on above: Order Comment: Injur y/Trauma or Illness?:Illness/OtherHow long have you had these symptoms (acute/chronic)?:AcuteReason for exam?:ams, dysphagia, weaknessType of Exam?:InitialAdditional signs and symptoms?:NOT a stroke alert, ordering provider wants a stroke protocol DRUGS OF ABUSE SCREEN, URINE on 08-07-2024 AMPHETAMINE SCREEN, URINE Not detected Normal None Detected [facility] Comment on above: Order Comment: Scree n results should be used for treatment purposes only. Result Comment: Urin e Amphetamine Cutoff: < 1000 ng/mL = None Detected Performed By: #### L [id number] #### MH LAB [address], [place] [address] Azam Pickering M.D. [id number] BARBITURATE SCREEN URINE Not detected Normal Non e Detected [facility] Comment on above: Order Comment: Scree n results should be used for treatment purposes only. Result Comment: Urin e Barbiturates Cutoff: < 200 ng/mL = None Detected Performed By: #### L [id number] #### MH LAB [address] [address] Azam Pickering M.D. [id number] BENZODIAZEPINE SCREEN, URINE Not detected Normal None Detected [facility] Comment on above: Order Comment: Scree n results should be used for treatment purposes only. Result Comment: Urin e Benzodiazepine Cutoff: < 200 ng/mL = None Detected Performed By: #### L [id number] #### LAB [address] [place] [address] Azam Pickering M.D. [id number] BUPRENORPHINE, URINE Not detected Normal None Detected [facility] Comment on above: Order Comment: Scree n results should be used for treatment purposes only. Result Comment: Urin e Buprenorphine Cutoff: < 5 ng/mL = None Detected Performed By: #### L [id number] #### LAB [address] [place] [address] Azam Pickering M.D. [id number] CANNABINOID SCREEN URINE Not detected Normal Non e Detected [facility] Comment on above: Order Comment: Scree n results should be used for treatment purposes only. Result Comment: Urin e Cannabinoids Cutoff: < 50 ng/mL = None Detected Performed By: #### L [id number] #### LAB [address] [place] [address] Azam Pickering M.D. [id number] COCAINE, SCREEN URINE Not detected Normal [facility] Detected [facility] Comment on above: Order Comment: Scree n results should be used for treatment purposes only. Result Comment: Urin e Cocaine Cutoff: < 300 ng/mL = None Detected Performed By: #### L [id number] #### LAB [address] [place] [address] Azam Pickering M.D. [id number] FENTANYL, URINE Not detected Normal None Detected [facility] Comment on above: Order Comment: Scree n results should be used for treatment purposes only. Result Comment: Urin e Fentanyl Cutoff: < 1 ng/mL = None Detected Performed By: #### L [id number] #### LAB [address] [place] [address] Azam Pickering M.D. [id number] METHADONE SCREEN, URINE Not detected Normal None Detected [facility] Comment on above: Order Comment: Scree n results should be used for treatment purposes only. Result Comment: Urin e Methadone Cutoff: < 300 ng/mL = None Detected Performed By: #### L [id number] #### MH LAB [address] [address] Azam Pickering M.D. [id number] OPIATE SCREEN URINE Not detected Normal None Detected [facility] Comment on above: Order Comment: Scree n results should be used for treatment purposes only. Result Comment: Urin e Opiates Cutoff: < 300 ng/mL = None Detected Performed By: #### L [id number] #### MH LAB [address] [address] Azam Pickering M.D. [id number] OXYCODONE SCREEN, URINE Not detected Normal None Detected [facility] Comment on above: Order Comment: Scree n results should be used for treatment purposes only. Result Comment: Urin e Oxycodone Cutoff: < 100 ng/mL = None Detected Performed By: #### L [id number] #### [facility] LAB [address] [address] Azam Pickering M.D. [id number] ED Prov Noteon 08-07-2024 ED Prov Note [facility] EMERGENCY DEPARTMENT - Emergency Medicine Attending Note: NAME: Kevin White 83 y.o. CSN: [id number] PCP: Moi Gibson MD History: Chief Complaint: Altered Mental Status, Dysphagia, and Weakness HPI: The history was obtained from the spouse. Kevin is a 83 y.o. male who presents with a chief complaint of Altered Mental Status, Dysphagia, and Weakness. Altered Mental Status This is an 83-year-old male, presenting today for evaluation of altered mentation. believes that the patient has had another TIA. Started yesterday, at around 8 AM. He has been having some trouble swallowing, and having some new onset generalized weakness. Of note as well, patient has new right facial droop that the patient's spouse stated also started yesterday at around 8 AM. Patient is having a lot of trouble with speech. ROS: Review of Systems Unable to perform ROS: Mental status change Positives and pertinent negatives as per HPI. All other systems were reviewed and are negative. Physical Exam: Patient Vitals for the past 24 hrs: BP Temp Temp src Pulse Resp SpO2 Height Weight 08/07/24 1330 (!) 158/83 -- -- 80 (!) 23 95 % -- -- 08/07/24 1230 (!) 194/98 -- -- 73 (!) 21 96 % -- -- 08/07/24 1200 (!) 153/86 -- -- 74 16 96 % -- -- 08/07/24 1121 136/67 98 degrees F (36.7 degrees C) Oral 67 18 94 % 6' 81.6 kg (180 lb) Physical Exam Constitutional: General: He is not in acute distress. Appearance: He is ill-appearing (Patient is ill-appearing, but in no acute distress.). He is not diaphoretic. HENT: Head: Normocephalic and atraumatic. Comments: Right-sided facial droop is noted. Right Ear: External ear normal. Left Ear: External ear normal. Eyes: General: No scleral icterus. Neck: Vascular: No JVD. Trachea: No tracheal deviation. Cardiovascular: Rate and Rhythm: Normal rate and regular rhythm. Pulses: Normal pulses. Heart sounds: Normal heart sounds. No murmur heard. No friction rub. No gallop. Pulmonary: Effort: Pulmonary effort is normal. No respiratory distress. Breath sounds: Normal breath sounds. No wheezing or rales. Chest: Chest wall: No tenderness. Abdominal: General: There is no distension. Palpations: Abdomen is soft. There is no mass. Tenderness: There is no abdominal tenderness. There is no rebound. Musculoskeletal: General: No deformity. Comments: All major muscle groups are tested in the upper and lower extremities, strength grossly 5/5 throughout. Neurological: Mental Status: He is alert. He is disoriented and confused. Psychiatric: Behavior: Behavior normal. Laboratory & Radiological Imaging (if done): Labs Reviewed COMPREHENSIVE METABOLIC PANEL - Abnormal; Notable for the following components: Result Value Glucose 164 (*) All other components within normal limits Narrative: [facility] Services has implemented the eGFR calculation approach that does not have a coefficient for race that conforms to the NKF-ASN Task Force Recommendations. TROPONIN (ONCE) - Abnormal; Notable for the following components: Troponin T 42 (*) All other components within normal limits PT/INR - Abnormal; Notable for the following components: Protime (PT) 14.7 (*) All other components within normal limits Narrative: During the induction phase of oral anticoagulation, the INR may not reflect the anticoagulation status of the patient. Therapeutic ranges for INR's are: Most clinical situations: INR 2.0-3.0 Mechanical Prosthetic Valve: INR 2.5-3.5 Critical: INR >5.0 APTT - Abnormal; Notable for the following components: APTT 22 (*) All other components within normal limits Narrative: Therapeutic range for APTT's is 68 - 104 seconds POC GLUCOSE - RALS - Abnormal; Notable for the following components: Glucose 151 (*) All other components within normal limits CBC WITH AUTO DIFFERENTIAL - Abnormal; Notable for the following components: Platelets 90 (*) Neutrophils Abs 7.90 (*) Lymphocytes Abs 0.59 (*) Monocytes Abs 1.01 (*) All other components within normal limits MORPHOLOGY - Abnormal; Notable for the following components: Platelet Estimate Decreased (*) All other components within normal limits ALCOHOL, MEDICAL - Normal CBC AND DIFFERENTIAL Narrative: The following orders were created for panel order CBC and Differential. Procedure Abnormality Status --------- ------ CBC Auto Differential[[id number]] Abnormal Final result CBC and Diff Morphology[[id number]] Abnormal Final result Please view results for these tests on the individual orders. DRUGS OF ABUSE SCREEN, URINE POC INR POC GLUCOSE CT Head Without Contrast (Stroke) Final Result 1. Focal acute infarction in the right cerebellum superiorly series 301, image 25. 2. 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 3. Cerebral volume loss with chronic microvascular ischemic change (more content not included)... Normal [facility] MORPHOLOGYon 08-07-2024 OVAL SCAN Few Normal [facility] Comment on above: Performed By: #### L [id number] #### MH LAB [address], [place] [address] Azam Pickering M.D. [id number] PLATELET ESTIMATE Decreased Abnormal Normal [facility] Comment on above: Performed By: #### L [id number] #### MH LAB [address], [place] [address] Azam Pickering M.D. [id number] POLY SCAN Few Normal [facility] Comment on above: Performed By: #### L [id number] #### MH LAB [address], [place] [address] Azam Pickering M.D. [id number] RBC MORPH SCAN See Comment Normal [facility] Comment on above: Result Comment: RBC Indices confirmed with manual peripheral smear review. Performed By: #### L [id number] #### MH LAB [address], [place] [address] Azam Pickering M.D. [id number] MR BRAIN WITHOUT CONTRASTon 08-07-2024 MR BRAIN WITHOUT CONTRAST EXAMINATION: MR BRAIN WITHOUT CONTRAST HISTORY: ORDERING SYSTEM PROVIDED HISTORY: Neuro deficit, acute, stroke suspected, TECHNOLOGIST PROVIDED HISTORY: Illness/Other Reason for exam: Dysphagia, and Weakness. Encounter Type: Initial Additional signs and symptoms: na ORDERING SYSTEM PROVIDED DIAGNOSIS CODES: I63.9 Cerebrovascular accident (CVA), unspecified mechanism (HCC) COMPARISON: CT head, 08/07/2024. TECHNIQUE: Multiplanar, multisequence MRI imaging of the brain without contrast. FINDINGS: The paranasal sinuses are clear. Mastoid air cells are clear. Nasopharynx normal. Professional Development Manager spaces are normal. Prior cataract surgery. Large amount of brain atrophy. No hydrocephalus. No subdural fluid collection. No mass effect. No shift of midline. There are multiple small chronic infarcts throughout the cerebellum. The diffusion images show diffusion restriction superiorly in the right cerebellar hemisphere, consistent with subacute infarction. This can be seen on the prior CT of the head. This measures approximately 2 cm. No mass effect or hemorrhage. No acute infarction in the cerebral hemispheres. There are areas of chronic infarction in the right superior frontal gyrus as well as posteriorly in the right frontal lobe. There are areas of chronic infarction in the left parietal lobe white matter. No evidence of acute hemorrhage. There is some hemosiderin staining posteriorly in the right frontal lobe from prior hemorrhagic infarction. IMPRESSION: 1. Subacute infarction with diffusion restriction superiorly in the right cerebellar hemisphere measures 2 cm. No mass effect or hemorrhage. 2. Multiple areas of chronic infarction in both cerebral hemispheres. 3. Brain atrophy. No hydrocephalus. 4. No masses. DMG/ads Workstation ID: [id number] Dictated by: BRIGIDO WETZEL on WedAug 07, 2024 4:54:12 PM EDT Transcribed by: JOSE FONTENOT on WedAug 07, 2024 5:22:24 PM EDT Finalized by: BRIGIDO WETZEL on WedAug 07, 2024 5:52:20 PM EDT Normal [facility] Comment on above: Order Comment: Repea tInjury/Trauma or Illness?:Illness/OtherHow long have you had these symptoms (acute/chronic)?:AcuteReason for exam?:Dysphagia, and Weakness.Type of Exam?:InitialAdditional signs and symptoms?:na POC GLUCOSE - [facility] 025 Glucose [Mass/Vol] 113 mg/dL [address] Comment on above: Performed By: #### [id number] #### MH LAB [address] [address] Azam Pickering M.D. [id number] Glucose [Mass/Vol] 114 mg/dL [address] Comment on above: Performed By: #### [id number] #### MH LAB [address] [address] Azam Pickering M.D. [id number] Glucose [Mass/Vol] 151 mg/dL [address] Comment on above: Performed By: #### 4 [id number] #### LAB [address] [address] Azam Pickering M.D. [id number] PT/INRon 08-07-2024 INR Coag (PPP) [Relative time] 1.1 {INR} Normal 0.8-1.1 [facility] Comment on above: Order Comment: Jesus g the induction phase of oral anticoagulation, the INR may not reflect the anticoagulation status of the patient. Therapeutic ranges for INR's are:Most clinical situations: INR 2.0-3.0Mechanical Prosthetic Valve: INR 2.5-3.5Critical: INR >5.0 Performed By: #### L [id number] #### MH LAB [address] [address] Azam Pickering M.D. [id number] PT Coag (PPP) [Time] 14.7 s High 11.8-14.3 [facility] Comment on above: Order Comment: Jesus mills the induction phase of oral anticoagulation, the INR may not reflect the anticoagulation status of the patient. Therapeutic ranges for INR's are:Most clinical situations: INR 2.0-3.0Mechanical Prosthetic Valve: INR 2.5-3.5Critical: INR >5.0 Performed By: #### L [id number] #### MH LAB [address], [place] [address] Azam Pickering M.D. [id number] TROPONIN (ONCE)on 08-07-2024 BASELINE TROPONIN T NG/L 42 ng/L Off scale high <=22 [facility] Comment on above: Performed By: #### L [id number] #### MH LAB [address], [place] [address] Azam Pickering M.D. [id number] TROPONIN T INTERPRETATION Possible acute cardiac injury. Normal [facility] Comment on above: Performed By: #### L [id number] #### MH LAB [address], [place] [address] Azam Pickering M.D. [id number] ED Prov Noteon 07-17-2024 ED Prov Note ED PROVIDER NOTE [facility] EMERGENCY [facility] NAME: Kevin White AGE: 83 y.o. : 1940 VISIT DATE: 07/17/[address] [facility]: [id number] PCP: Moi Gibson MD Chief Complaint Patient presents with Cough 83-year-old male patient presents for uncomplicated URI symptoms, patient endorsed cough congestion weakness for approximately a week, no fevers, no chest pain, no difficulty breathing. Past Medical History: Diagnosis Date Arthritis Back pain CHF (congestive heart failure) (HCC) COPD (chronic obstructive pulmonary disease) (HCC) Coronary artery disease Diabetes mellitus (HCC) Diabetes mellitus, type 2 (HCC) Disease of thyroid gland GERD (gastroesophageal reflux disease) Hernia of abdominal wall Hyperlipidemia Hypertension Myocardial infarction (HCC) Sleep apnea, obstructive refuses to use c-pap Stroke (HCC) Past Surgical History: Procedure Laterality Date CABG AVR W/ MAZE Bilateral 08/12/2021 Procedure: CORONARY ARTERY BYPASS GRAFT TIMES THREE (krueger-lad, svg-d1, svg-drca)WITH ENDOVEIN HARVEST, Aortic valve replacement (27mm Paul Inspiris), full LA MAZE ([employer]compass RFA box, RFA HEATHER, cryo RA caval and RAA line), LEFT ATRIAL APPENDAGE LIGATION (40mm AtriCLIP), TRANSESOPHAGEAL ECHOCARDIOGRAM; Surgeon: Luis Beasley MD; Location: [facility]; Service: Cardiothoracic CARDIAC CATHETERIZATION CARDIAC CATHETERIZATION Bilateral 07/01/2021 No intervention, right radial CARDIAC CATHETERIZATION N/A 07/01/2021 Procedure: Coronary Angiogram; Surgeon: Shmuel Villalpando MD; Location: [facility]; Service: Cardiovascular CARDIAC CATHETERIZATION N/A 07/01/2021 Procedure: Right Heart Cath; Surgeon: Shmuel Villalpando MD; Location: [facility]; Service: Cardiovascular CARDIAC CATHETERIZATION N/A 07/01/2021 Procedure: Left Ventriculogram; Surgeon: Shmuel Villalpando MD; Location: [facility]; Service: Cardiovascular CARDIAC CATHETERIZATION N/A 07/01/2021 Procedure: Left Heart Cath; Surgeon: Shmuel Villalpando MD; Location: [facility]; Service: Cardiovascular cataracts removed Bilateral CORONARY STENT PLACEMENT EP - INTERVENTION N/A 08/24/2021 Procedure: Cardioversion/CTA; Surgeon: Abhishek Lauren MD; Location: [facility] EP LAB; Service: Cardiovascular HERNIA REPAIR W/HYDROCELE Right Family History Problem Relation Age of Onset Heart disease Father Social History [1] Previous Medications Medication Sig amLODIPine (NORVASC) 10 MG tablet Take 1 (one) tablet (10 mg total) by mouth daily . apixaban (ELIQUIS) 5 mg Tab Take 1 (one) tablet (5 mg total) by mouth 2 (two) times a day A fib . cyanocobalamin (B-12) 1000 MCG tablet Take 1 (one) tablet (1,000 mcg total) by mouth daily . esomeprazole (NEXIUM) 40 MG capsule Take 1 (one) capsule (40 mg total) by mouth every morning before breakfast . FLUoxetine (PROZAC) 20 MG capsule Take 1 (one) capsule (20 mg total) by mouth daily Start: 01/26/23. furosemide (Lasix) 20 MG tablet Take 1 (one) tablet (20 mg total) by mouth daily as needed Worsening leg swelling, weight gain of more than 5 pounds overnight, or shortness of breath . levothyroxine (SYNTHROID, LEVOTHROID) 175 MCG tablet Take 1 (one) tablet (175 mcg total) by mouth daily . lisinopriL (PRINIVIL,ZESTRIL) 10 MG tablet Take 1 (one) tablet (10 mg total) by mouth daily with lunch Start: 08/25/21. metFORMIN (GLUCOPHAGE-XR) 500 MG 24 hr tablet Take 1 (one) tablet (500 mg total) by mouth 2 (two) times a day . oxyBUTYnin (DITROPAN-XL) 10 MG 24 hr tablet rosuvastatin (CRESTOR) 20 MG tablet Take 1 (one) tablet (20 mg total) by mouth nightly . tamsulosin (FLOMAX) 0.4 mg capsule Take 2 (two) capsules (0.8 mg total) by mouth daily . therapeutic multivitamin (THERAGRAN) tablet Take 1 (one) tablet by mouth daily . traZODone (DESYREL) 50 MG tablet Take 0.5 (one-half) tablet (25 mg total) by mouth nightly as needed . Allergies[2] Review of Systems All other systems reviewed and are negative. Patient Vitals for the past 24 hrs: BP Temp Temp src Pulse Resp SpO2 Weight 07/17/24 1223 (!) 154/73 99 degrees F (37.2 degrees C) Temporal 89 18 97 % 91.6 kg (202 lb) Physical Exam Vitals reviewed. Constitutional: Appearance: Normal appearance. HENT: Head: Normocephalic and atraumatic. Right Ear: Tympanic membrane and external ear normal. Left Ear: Tympanic membrane and external ear normal. Nose: Nose normal. Mouth/Throat: Mouth: Mucous membranes are moist. Pharynx: Oropharynx is clear. Eyes: Extraocular Movements: Extraocular movements intact. Pupils: Pupils are equal, round, and reactive to light. Cardiovascular: Rate and Rhythm: Normal rate and regular rhythm. Pulses: Normal pulses. Heart sounds: Normal heart sounds. Musculoskeletal: Cervical back: Normal range of motion and neck supple. Pulmonary: Effort: Pulmonary effort is normal. Breath so (more content not included)... Normal [facility] XR CHEST PA/APon 07-17-2024 XR CHEST PA/AP EXAMINATION: XR CHEST PA/AP 07/17/2024 12:36 pm HISTORY: ORDERING SYSTEM PROVIDED HISTORY: pna, TECHNOLOGIST PROVIDED HISTORY: Illness/Other Reason for exam: cough, phelgm Cancer History: unk Surgery, RadiationHistory: unk Encounter Type: Initial Additional signs and symptoms: n ORDERING SYSTEM PROVIDED DIAGNOSIS CODES: COMPARISON: 01/06/2023 FINDINGS: Heart is slightly enlarged. Valvular prosthesis and atrial appendage clip is noted. Vascularity is unremarkable. Lungs are free of focal infiltrates. There is slight elevation of the right hemidiaphragm when compared to left which is unchanged. Atherosclerotic changes of the thoracic aorta are noted. Median sternotomy sutures are noted. IMPRESSION: 1. Cardiac enlargement with valvular prosthesis and atrial appendage clip. 2. No infiltrates. 3. Mild elevation of the right hemidiaphragm which is chronic. Workstation ID: [id number] Dictated by: NAVEEN KIRBY on WedJul 17, 2024 12:49:01 PM EDT Transcribed by: NAVEEN KIRBY on WedJul 17, 2024 12:49:01 PM EDT Finalized by: NAVEEN KIRBY on WedJul 17, 2024 12:49:01 PM EDT [facility] Comment on above: Order Comment: Injur y/Trauma or Illness?:Illness/Other How long have you had these symptoms (acute/chronic)?:Acute Reason for exam?:cough, phelgm History of cancer?:unk Surgeries, chemotherapy, or radiation?:unk Type of Exam?:Initial Additional signs and symptoms?:n Inital Evaluation (1) - PTon 06-06-2024 Inital Evaluation (1) - PT [facility] [address] [place] [address]. [address] [place] [address] / REHABILITATION SERVICES INITIAL EVALUATION MR#: [id number] Acct: [id number] Name: KEVIN WHITE Rep #: [id number] : 1940 83 From: Raciel Lobato PT, Cert. T, OCS Referring Dr.: Dr. Moi Gibson MD Status: R EG RCR Insurance: [facility] 12/16/17 SELF PAY INSURANCE Patient's Visit Information Visit Information Visit Information: KEVIN WHITE is a 83 year old M referred to Physical Therapy by Dr. Moi Gibson MD with a diagnosis of WEAKNESS , FALL. Date of Evaluation: 06/06/24 Physical Therapist: Raciel Lobato, PT, Cert MDT, OCS Visit Plan Frequency: 2x /Week Duration: 4 Weeks Plan: OKAY TO USE W/C TO BRING BACK TO DEPT PT INTERVENTIONS BALANCE TRAINING ,GAIT TRAINING , ENDURANCE EX'S ,STRENGTHENING EX'S,AND FUNCTIONAL STRENGTHENING Subjective Subjective: This 83 y/o male presents to physical therapy with weakness and falls. Patient seen DR and recommended PT .Patient has multiple comorbities with h/o CVA last year and Alzheimer's . Patient also recently diagnosed with Prostate. Patient has dizziness but no recent falls. Patient walked backed and became weak thus needed w/c .Patient uses [facility] at home. Patient has tub shower set up 2 story home 2 steps rails. Patient has assist with ADL's and bathing. Patient is able to dress self. Patient has some memory deficit. Patient denies paresthesia/tingling in legs. Patient condition affects QOL and function /gait. SOCIAL: Objective Objective: POSTURE: mild forward posture hips/knees /flexed GAIT : 2 point gait unsteady gait became ( stopped and gait w/c due to patient weak when walking back thus discussed with patient and spouse using w/c to come back to Dept) NEURO: denies paresthesia/tingling BALANCE: fair with cane FLEXABILITY: hamstrings min tight MMT: quads/hams 4/5 ,hip flexion 4-/5,ankle 4/5 Balance/Special Test Scores CATSIB Score (Max score 120 seconds): 53 Lower Extremity Functional Score: 16 Goals Goal 1:: Patient to be I with HEP for strengthening Goal Time Frame: 4-6 Weeks Goal 2:: Patient to improve CTSIBE by 5-10 points to improve balance Goal Time Frame: 4-6 Weeks Goal 3:: Patient to improve LFES score by 5 points to improve QOL Goal Time Frame: 4-6 Weeks Goal 4:: Patient be able to walk 150 ft with fww/cane to promote functional endurance Goal Time Frame: 4-6 Weeks Goal 5:: Patient will demonstrate 40 % improvement with function and agit Goal Time Frame: 4-6 Weeks Rehabilitation Potential Physical Therapy Diagnosis: This patient has multiple complexity issues with h/o CVA and Alzheimer's with weakness ,falls ,decrease balance impairs ADL and needs some assist at home thus will benefit from skilled PT Rehabilitation Potential: Good Anticipated Interventions Patient/Client Instruction: Educate patient on: Condition and Plan of Care For the Purpose of:: To decrease pain, To improve muscle performance and motor function, To improve ability to perform ADL's, To increase tolerance to activity/condition/po sition, To improve ability of physical actions for home/community/work/l eisure, To improve gait and locomotor functions, To improve endurance, To improve balance, To improve safety with gait, To assume or resume ADL's, To reduce risk of recurrence and To improve tolerance to ADL's Therapeutic Exercise to Include: Strength training, Endurance training, Balance training, Gait and locomotor training and Active ROM Comment: QUADS/HAMS/HIP For the Purpose of:: To improve muscle performance and motor function, To improve ability to perform ADL's, To increase tolerance to activity/condition/po sition, To improve ability of physical actions for home/community/work/l eisure, To improve gait and locomotor functions, To improve endurance, To improve balance, To reduce risk of recurrence and To improve tolerance to ADL's Text: Thank you for the opportunity to evaluate your patient. For Medicare and Medicare HMO plans, please review the plan of care and approve it. It will need to be FAXED BACK to us at [phone] for Medicare purposes. For Medicare only, by signing this I certify the plan of care. Please let me know if there are questions or concerns regarding this plan of care. Physician Signature: Date : 06/07/24 1428 CC: Dr. Moi Gibson MD MATHEW Signed Normal [facility] Immunohistochemical Stainson 05-29-2024 Immunohistochemical Stains -------- Patient Age/Sex Location Account Attending Physician -------- KEVIN WHITE 83/M LABSPEC [id number] Dr. Uriel Harvey MD -------- Specimen: [id number] Received: 05/29/24 Status: BRETT Carjean claude Num: [id number] Spec Type: PROST BX Subm Dr: Dr. Uriel Harvey MD HEADER OPERATION: Prostate biopsy PRE-OP DIAGNOSIS: Elevated PSA TISSUE SUBMITTED: A - Right apex, B - Right mid, C - Right base, D - Left apex, E - Left mid, F - Left base -------- MICROSCOPIC DIAGNOSIS A. Prostate, right apex, biopsy: - Benign prostate tissue with atrophy. B. Prostate, right mid, biopsy: - Benign prostate tissue with atrophy C. 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 D. Prostate, left apex, biopsy: - Adenocarcinoma Keldron 3+3=6, 1/1 core, involving 15% of the tissue - see Comment. E. Prostate, left mid, biopsy: - Benign prostate tissue with atrophy and mild acute inflammation - IHC for [id number] supports the diagnosis. F. Prostate, left base, biopsy: - Benign prostate tissue COMMENT C, D) The container and block/slide labeling was confirmed. MICROSCOPIC DESCRIPTION Slides are reviewed. All matched controls reacted appropriately. These tests were developed and their performance characteristics determined by [facility]. They may not have been cleared or approved by the U.S. Food and Drug Administration. The FDA has determined that such clearance or approval is not necessary. The above immunohistochemical/d ualISH markers are ordered and reviewed by the Pathologist. -------- Patient Age/Sex Location Account Attending Physician -------- KEVIN WHITE 83/M LABSPEC [id number] Dr. Uriel Harvey MD -------- GROSS DESCRIPTION A. Received in formalin in a container labeled with the patient's name, date of , and RA is a 0.6 x 0.1 cm white and wispy core biopsy of soft tissue. Submitted in toto in A1. B. Received in formalin in a container labeled with the patient's name, date of , and RM is a 1.0 x 0.1 cm white and wispy core biopsy of soft tissue. Submitted in toto in B1. C. Received in formalin in a container labeled with the patient's name, date of , and RB is a 0.7 x 0.1 cm white and wispy core biopsy of soft tissue. Submitted in toto in C1. D. Received in formalin in a container labeled with the patient's name, date of , and LA is a 0.7 x 0.1 cm white and wispy core biopsy of soft tissue. Submitted in toto in D1. E. Received in formalin in a container labeled with the patient's name, date of , and LM is a 1.5 x 0.1 cm white and wispy core biopsy of soft tissue. Submitted in toto in E1. F. Received in formalin in a container labeled with the patient's name, date of , and LB is a 1.7 x 0.1 cm white and wispy core biopsy of soft tissue. Submitted in toto in F1. [facility] 06/02/2024 CPT:19220i6,97471 -------- Patient Age/Sex Location Account Attending Physician -------- KEVIN WHITE 83/M LABSPEC [id number] Dr. Uriel Harvey MD -------- Signed (signature on file) Dr. Padmaja Pereyra MD 06/02/24 1221 -------- Normal [facility] Comment on above: Performed By: #### P ESTRELLA ####[facility] [address] [place], [address] Laboratory - Hematology and Cell countsOrdered By: Moi Gibson on 05-24-2024 HbA1c (Bld) [Mass fraction] 6.2 % 4.2-6.3 [facility] TSH DL <= 0.005 mIU/L QnOrde red By: Moi Gibson on 05-24-2024 Thyroid Stimulating Hormone (TSH) 0.369 uIU/mL 0.300-4.200 [facility] Thyroid Stim Hormone (TSH)on 05-24-2024 TSH 0.369 uIU/mL Normal 0.300-4.200 [facility] Comment on above: Performed By: #### L [id number] #### [facility] [address] [place], [address] Internal Medicine Office Vis tammie 05-23-2024 Internal Medicine Office Visit [facility] [address] [place] [address] [place] [address] OFFICE VISIT Date of Service: 05/24/24 MR#: [id number] Acct: [id number] Name: KEVIN WHITE Rep #: [id number] : 1940 Provider: Dr. Moi santos MD Age/Sex: 83/M Location: [facility] [place].[facility] Status: Signed Intake Vital Signs 02/24/24 12:52 05/24/24 13:43 Height 6 ft 6 ft Weight: 202 lb BMI 27.3 BP 110/60 Blood Pressure Location Lt brachial Position Sitting Respiration 16 Pulse 80 Pulse Source Monitor Temp 98.7 F Temp Source Temporal Pulse Oximetry (%) 96 Oxygen Delivery Method room air Intake Visit Reasons: 3 M FU Chief Complaint: 3m fu [employer] Required: No Accompanied by: Is patient in pain?: No Allergies No Known Allergies Allergy (Unverified 05/24/24 13:21) Medications ???Medication ???Instructions ???Recorded ???Confirmed ???Type magoxide PO 02/26/23 05/24/24 History mecobalamin (vitamin B12) 1,000 1,000 mcg sublingual DAILY 4 05/24/24 History mcg disintegrating tablet,sublingual multivitamin (Daily Multi-Vitamin 1 tab PO DAILY 02/26/23 05/24/24 History tablet) oxybutynin chloride 10 mg 10 mg PO QDAY 11/24/23 05/24/24 Hi story tablet,extended release 24 hr apixaban 5 mg tablet (Eliquis) 5 mg PO BID #180 TABLETS 12/27/23 05/24/24 Rx levothyroxine 175 mcg tablet 175 mcg PO DAILY #90 tabs 03/21/24 05/24/24 Rx pantoprazole 40 mg tablet,delayed 40 mg PO DAILY #90 TABLETS 05/24/24 Rx release amlodipine 5 mg tablet 5 mg PO DAILY #90 tabs 05/24/24 Rx fluoxetine 40 mg capsule 40 mg PO DAILY #90 caps 05/24/24 0 05/24/24 Rx lisinopril 10 mg tablet 10 mg PO DAILY #90 tabs 05/24/24 0 05/24/24 Rx metformin 500 mg tablet,extended 500 mg PO BID 3 months #180 tabs 0 05/24/24 05/24/24 Rx release 24 hr rosuvastatin 20 mg tablet 20 mg PO QDAY #90 tabs 05/24/24 Rx tamsulosin 0.4 mg capsule 0.8 mg (2 x 0.4 mg) PO DAILY #180 05/24/24 05/24/24 Rx caps Have you fallen in the past year?: Yes (04/2024) Nurse's Note: needs fluoxetine,synthroid, lasix,norvasc,crestor ,metformin,and flomax refilled. Has a prostate biopsy scheduled for 05/29/24 for possible prostate CA. 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 1. Little interest or pleasure in doing things: nearly every day 2. Feeling down, depressed, or hopeless: not at all 3. Trouble falling or staying asleep, or sleeping too much: nearly every day 4. Feeling tired or having little energy: nearly every day 5. Poor appetite or overeating: nearly every day 6. Feeling bad about yourself - or that you are a failure or have let yourself and your family down: not at all 7. Trouble concentrating on things, such as reading the newspaper or watching television: nearly every day 8. Moving or speaking so slowly that other people could have noticed? - Or the opposite - being so fidgety or restless that you have been moving around a lot more than usual: several days 9. Thoughts that you would be better off or of hurting yourself in some way: not at all Total score: 16 If you checked off any problems, how difficult have these problems made it for you to do your work, take care of things at home, or get along with other people?: somewhat difficult Source: Developed by Drs. Abelino Mcgraw, Izabella Tobias, Mal Dill and colleagues, with an educational everardo from [employer]. THEODORE-7 BMS THEODORE-7 Feeling nervous, anxious, or on edge: 1 = Several days Not being able to stop or control worryin = Nearly every day Worrying too much about different things: 3 = Nearly every day Trouble relaxin (more content not included)... Normal [facility] Diagnostic total prostate sp ecific antigen (PSA) measurementOrdered By: Tammy Epstein on 05-11-2024 Prostate Specific Antigen Total 7.86 ng/mL High 0.00-4.00 [facility] Comment on above: This test was perfor med using the [employer] tPSA method. Measured values of a patient sample can vary depending on the testing procedure used. PSA values determined on patient samples by different testing procedures cannot be used interchangeably. If there is a change in PSA assays while monitoring therapy, sequential testing should be performed to confirm baseline values. PSA,Total- Diagnosticon 04-16 PSA, DIAGNOSTIC 7.86 ng/mL High 0.00-4.00 [facility] Comment on above: Result Comment: This test was performed using the [employer] tPSA method. Measured values of a patient??sample can vary depending on the testing procedure used. PSA values determined on patient samples by different testing procedures cannot be used interchangeably. If there is a change in PSA assays while monitoring therapy, sequential testing should be performed to confirm baseline values. Performed By: #### L 501.9940 #### [facility] [address] [place], [address] Hemoglobin A1con 02-24-2024 HbA1c (Bld) [Mass fraction] 6.4 % High 3.8-5.6 [facility] Comment on above: Result Comment: Norm al < 5.7 % Prediabetic 5.7 - 6.4 % Diabetic >or= 6.5 % Please note range changes. Performed By: #### L 501.9985, L501.9520 ####[facility] [address] [facility] [place], [address] Hemoglobin A1c percentageOrd ered By: Moi Gibson on 02-24-2024 HbA1c (Bld) [Mass fraction] 6.4 % High 3.8-5.6 [facility] Comment on above: Normal < 5.7 % Predi abetic 5.7 - 6.4 % Diabetic >or= 6.5 % Please note range changes. TSH QnOrdered By: Moi jimenez on 02-24-2024 Thyroid Stimulating Hormone (TSH) 0.280 uIU/mL Low 0.358-3.740 [facility] Thyroid Stim Hormone (TSH)on 02-24-2024 TSH 0.280 uIU/mL Low 0.358-3.740 [facility] Comment on above: Performed By: #### L 501.9985, L501.9520 ####[facility] [address] [place], [address] Internal Medicine Office Vis iton 02-23-2024 Internal Medicine Office Visit [facility] [address] [place], [place] [address] OFFICE VISIT Date of Service: 02/24/24 MR#: [id number] Acct: [id number] Name: KEVIN WHITE Rep #: [id number] : 1940 Provider: Dr. Moi santos MD Age/Sex: 83/M Location: [facility] [place].[facility] Status: Signed Intake Vital Signs 11/24/23 13:08 02/24/24 12:52 Height 6 ft 6 ft Weight: 210 lb BMI 28.5 BP 120/62 Blood Pressure Location Lt brachial Position Sitting Respiration 16 Pulse 70 Pulse Source Monitor Temp 98.0 F Temp Source Temporal Pulse Oximetry (%) 98 Oxygen Delivery Method room air Intake Visit Reasons: 3 M FU Chief Complaint: 3m fu [employer] Required: No Accompanied by: Is patient in pain?: No Allergies No Known Allergies Allergy (Unverified 02/24/24 12:44) Medications ???Medication ???Instructions ???Recorded ???Confirmed ???Type magoxide PO 02/26/23 02/24/24 History mecobalamin (vitamin B12) 1,000 1,000 mcg sublingual DAILY 02/26/23 02/24/24 History mcg disintegrating tablet,sublingual multivitamin (Daily Multi-Vitamin 1 tab PO DAILY 02/26/23 02/24/24 History tablet) amlodipine 5 mg tablet 5 mg PO DAILY #90 tabs 04/14/23 02/24/24 Rx trazodone 50 mg tablet 25 mg (1/2 x 50 mg) PO QHS PRN 10/05/23 02/24/24 Rx insomnia #90 tabs metformin 500 mg tablet,extended 500 mg PO BID 3 months #180 tabs 11/24/23 02/24/24 Rx release 24 hr oxybutynin chloride 10 mg 10 mg PO QDAY 11/24/23 02/24/24 History tablet,extended release 24 hr rosuvastatin 20 mg tablet 20 mg PO QDAY #90 tabs 11/24/23 02/24/24 Rx apixaban 5 mg tablet (Eliquis) 5 mg PO BID #180 TABLETS 12/27/23 02/24/24 Rx tamsulosin 0.4 mg capsule 0.8 mg (2 x 0.4 mg) PO DAILY #180 12/30/23 02/24/24 Rx caps levothyroxine 175 mcg tablet 175 mcg PO DAILY #90 tabs 01/03/24 02/24/24 Rx lisinopril 10 mg tablet 10 mg PO DAILY #90 tabs 01/03/24 02/24/24 Rx fluoxetine 20 mg capsule 20 mg PO DAILY #90 caps 01/31/24 02/24/24 Rx pantoprazole 40 mg tablet,delayed 40 mg PO DAILY #90 TABLETS 02/18/24 02/24/24 Rx release Have you fallen in the past year?: No PFSH Medical History Low calcium levels Hearing problem Cataract GERD (gastroesophageal reflux disease) Surgical History History of left heart catheterization H/O hernia repair Hx of chest tube placement H/O aortic valve replacement History of cardioversion Hx of CABG Family History Father Myocardial infarction Diabetes Mother Hypertension Myocardial infarction Brother Suicide Brother Diabetes Social History household members: spouse current occupational status: retired 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 He is due for a follow TSH and A1c. He is otherwise up to date on his labs and is up to date on his screening. He isn't due for any immunizations. He doesn't smoke and does not need refills. He reports he is eating healthy and isn't very active. He does check his blood pressure at home occasionally and when he does, it is similar to today's reading. He is taking his medication as prescribed without problems. He does try to monitor his salt intake. He has a history of CAD and Afib and follows with cardiology and saw them a couple of months ago. At that time, his dofetilide was discontinued. His reports they spoke about doing another cardioversion, but he declined as it wasn't helpful previously. He denies any current symptoms of chest pain or palpitations. He feels that his shortness of breath is about the same. He is taking his medication as prescribed without problems. He hasn't been checking his sugars at home recently. He is taking his medication as prescribed without problems. He does try to monitor his carbohydrate and sugar intake. He is up to date on his diabetic eye exam and does see podiatry, Dr. Villafana. He takes his synthroid with breakfast every day. He denies any problems with the medication. 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 He is taking his medications as prescribed without problems. He last saw neurology in June 2023 and was told no further follow up was needed. He denies any ongoing problems. Post CVA, the patient did develop some (more content not included)... Normal [facility] ECHOCARDIOGRAM COMPLETE W CO NTRASTon 02-01-2024 ECHOCARDIOGRAM COMPLETE W CONTRAST Patient Info Name: KEVIN WHITE Age: 83 years : 1940 Gender: Male Ht: 183 cm Wt: 96 kg BSA: 2.22 m2 HR: 81 bpm BP: 127 / 80 mmHg Heart Rhythm: Atrial Fibrillation Technical Quality: Technically difficult Exam Date: 02/01/2024 12:55 PM Patient Status: Outpatient [employer]ps[employer] Security Officer: Matilde Simpson, AIDE, RVT Exam Type: ECHOCARDIOGRAM COMPLETE W CONTRAST Study Info Indications - Valve disease/murmur - Dyspnea Attending Physician: PENNIE GALVEZ Referring Physician: PENNIE GALVEZ ; [id number] BMI: 28.62 kg/m2 Summary 1. Normal LV chamber size. There is moderate concentric left ventricular hypertrophy. Systolic function is normal with no regional wall motion abnormalities. Estimated ejection fraction of 55 to 60%. 2. Right ventricular chamber dimension is enlarged. Right ventricular systolic function is normal. 3. Status post aortic valve replacement with a 27 mm Inspiris bioprosthetic valve. The leaflets are thin and mobile. There is normal valve function with peak aortic valve velocity of 2.1 m/s, mean gradient of 9 mmHg, DVI of 0.45. There is no valvular or paravalvular regurgitation.. 4. There is no pulmonary hypertension, estimated right ventricle systolic pressure is 35 mmHg. History/Risk Factors Hypertension: Yes Dyslipidemia: Yes Diabetic Therapy: Oral Myocardial Infarction (TN): Yes Chronic Lung Disease: Yes Coronary Artery Disease (CAD) Yes Diabetes Mellitus: Yes COPD: Not Treated Tobacco Use: Never Cerebrovascular Disease: CVA Family History: Coronary Artery Disease Valve Disease - AV: Severe History/Risk Factors murmur, dyspnea, NAJMA. Patient has prior CABG on 08/12/2021. Prior Interventions Pacemaker: No PCI: Yes CABG: Yes Valve Surgery: Yes Type of Valve Surgery: AV Bioprosthetic Replacement ICD: No Date of CAB08/12/2021 Most Recent Valve Surgery: 08/12/2021 Transcatheter Intervention: HEATHER Closure Replacement Valve Size: 27 mm Inspiris Replacement Valve Size: 40mm atriclip Procedure(s): Complete two-dimensional, color flow and Doppler transthoracic echocardiogram is performed with contrast. Definity explained to patient. Patient verbalizes understanding and agrees to proceed. Definity 1.3ml/8.7ml normal sterile saline 1 ml total given IV over 30-60 seconds. Left Ventricle Normal LV chamber size. There is moderate concentric left ventricular hypertrophy. Systolic function is normal with no regional wall motion abnormalities. Estimated ejection fraction of 55 to 60%. The left ventricular diastolic function is indeterminate. Right Ventricle Right ventricular chamber dimension is enlarged. Right ventricular systolic function is normal. Left Atria Left atrial chamber is moderately enlarged with a left atrial volume index of 44 ml/m2 by BP MOD. Right Atria Right atrial chamber dimension is normal. Aortic Valve Status post aortic valve replacement with a 27 mm Inspiris bioprosthetic valve. The leaflets are thin and mobile. There is normal valve function with peak aortic valve velocity of 2.1 m/s, mean gradient of 9 mmHg, DVI of 0.45. There is no valvular or paravalvular regurgitation.. Pulmonic Valve The pulmonic valve is not well visualized. There is no pulmonic valve stenosis. There is trace pulmonic regurgitation. Mitral Valve The mitral valve has normal leaflets. There is no mitral valve stenosis. There is no mitral valve regurgitation. Tricuspid Valve The tricuspid valve leaflets are normal. There is no significant tricuspid valve stenosis. There is trace tricuspid valve regurgitation. There is no pulmonary hypertension, estimated right ventricle systolic pressure is 35 mmHg. Pericardium/Pleural There is no pericardial effusion. Inferior Vena Cava Normal inferior vena cava with >50% collapse upon inspiration consistent with normal right atrial pressure. Aorta The aortic measurements are indexed to age and body surface area. The aortic root is normal measuring 3.3 cm with an index of 1.5 cm/m2. The proximal ascending aorta is normal measuring 3.5 cm with an index of 1.6 cm/m2. Wall Motion Scoring Wall Motion Scoring Index: 1.00 Left Ventricular Outflow Tract ------- Name Value Normal ------- LVOT 2D ------- LVOT Diameter 2.2 cm LVOT Doppler ------- LVOT Peak Velocity 1.0 m/s LVOT Mean Gradient 2 mmHg LVOT VTI 15 cm LVOT VTI/AV VTI Ratio 0.5 LVOT Stroke Volume 59 ml LVOT Stroke Index 26.36 ml/m2 Pulmonic Valve ------- Name Value Normal - (more content not included)... Normal [facility] CBC W/Diff, Automatedon 10-0 Absolute Lymph 0.87 X10 3/uL Normal 0.83-4.51 [facility] Comment on above: Performed By: #### L 501.9520, L500.4050, L100.0100, L500.4100 #### [facility] [address] [place], [address] Absolute Neut 5.8 X10 3/uL Normal 2.0-7.7 [facility] Comment on above: Performed By: #### L [id number], L500.4050, L100.0100, L500.4100 #### [facility] [address] [place], [address] Basophils/100 WBC (Bld) 0.3 % Normal 0-1 [facility] Comment on above: Performed By: #### L 501.9520, L500.4050, L100.0100, L500.4100 #### [facility] [address] [place], [address] Eosinophils/100 WBC (Bld) 0.8 % Normal 0-5 [facility] Comment on above: Performed By: #### L 501.9520, L500.4050, L100.0100, L500.4100 #### [facility] [facility] [address] [place], [address] Erythrocyte distribution width (RBC) [Ratio] 12.7 % Normal 11.6-14.6 [facility] Comment on above: Performed By: #### L 501.9520, L500.4050, L100.0100, L500.4100 #### [facility] [address] [place], [address] Hematocrit (Bld) [Volume fraction] 45.1 % Normal 40-54 [facility] Comment on above: Performed By: #### L 501.9520, L500.4050, L100.0100, L500.4100 #### [facility] [address] [place], [address] Hemoglobin (Bld) [Mass/Vol] 15.0 g/dL Normal 13.0-16.5 [facility] Comment on above: Performed By: #### L 501.9520, L500.4050, L100.0100, L500.4100 #### [facility] [address] [place], [address] IG% 0.400 Normal 0.0-0.9 [facility] Comment on above: Result Comment: IG% - Immature Granulocytes (promyelocytes, myelocytes and metamyelocytes) > 1% indicates that a LEFT SHIFT is Present. Performed By: #### L 501.9520, L500.4050, L100.0100, L500.4100 #### [facility] [address] [place], [address] Lymphocytes/100 WBC (Bld) 11.3 % Low 19-41 [facility] Comment on above: Performed By: #### L 501.9520, L500.4050, L100.0100, L500.4100 #### [facility] [address] [place], [address] MCH (RBC) [Entitic mass] 31.9 pg Normal 27.0-32.0 [facility] Comment on above: Performed By: #### L 501.9520, L500.4050, L100.0100, L500.4100 #### [facility] [address] [place], [address] MCHC (RBC) [Mass/Vol] 33.3 g/dL Normal 32-36 [facility] Comment on above: Performed By: #### L 501.9520, L500.4050, L100.0100, L500.4100 #### [facility] [address] [place], [address] MCV (RBC) [Entitic vol] 96.0 fL High 80-94 [facility] Comment on above: Performed By: #### L 501.9520, L500.4050, L100.0100, L500.4100 #### [facility] [address] [place], [address] Monocytes/100 WBC (Bld) 11.6 % High 0-10 [facility] Comment on above: Performed By: #### L 501.9520, L500.4050, L100.0100, L500.4100 #### [facility] [address] [place], [address] Neutrophils/100 WBC (Bld) 75.6 % High 47-70 [facility] Comment on above: Performed By: #### L 501.9520, L500.4050, L100.0100, L500.4100 #### [facility] [address] [place], [address] Nucleated RBC (Bld) [#/Vol] 0 10*3/uL Normal 0-5 [facility] Comment on above: Performed By: #### L 501.9520, L500.4050, L100.0100, L500.4100 #### [facility] [address] [place], [address] Platelet mean volume (Bld) [Entitic vol] 10.0 fL Normal 6.2-12.0 [facility] Comment on above: Performed By: #### L 501.9520, L500.4050, L100.0100, L500.4100 #### [facility] [address] [place], [address] Platelets (Bld) [#/Vol] 109 10*3/uL Low 150-450 [facility] Comment on above: Performed By: #### L 501.9520, L500.4050, L100.0100, L500.4100 #### [facility] [address] [place], [address] RBC (Bld) [#/Vol] 4.70 10*6/uL Normal 4.6-6.2 [facility] Comment on above: Performed By: #### L 501.9520, L500.4050, L100.0100, L500.4100 #### [facility] [address] [place], [address] RDW SD 45.1 fl High 35.1-43.9 [facility] Comment on above: Performed By: #### L 501.9520, L500.4050, L100.0100, L500.4100 #### [facility] [address] [place], [address] WBC (Bld) [#/Vol] 7.7 10*3/uL Normal 4.4-11.0 [facility] Comment on above: Performed By: #### L 501.9520, L500.4050, L100.0100, L500.4100 #### [facility] [address] [place], [address] Comprehensive Metabolic [facility] 11-24-2023 Albumin [Mass/Vol] 3.9 g/dL Normal 3.2-5.0 [facility] Comment on above: Performed By: #### L 501.9520, L500.4050, L100.0100, L500.4100 #### [facility] [address] [place], [address] Albumin/Globulin [Mass ratio] 1.1 {ratio} Normal 0.9-2.4 [facility] Comment on above: Performed By: #### L 501.9520, L500.4050, L100.0100, L500.4100 #### [facility] [address] [place], [address] ALK P 69 U/L Normal 45-117 [facility] Comment on above: Performed By: #### L 501.9520, L500.4050, L100.0100, L500.4100 #### [facility] [address] [place], [address] ALT [Catalytic activity/Vol] 20 U/L Normal 16-61 [facility] Comment on above: Performed By: #### L 501.9520, L500.4050, L100.0100, L500.4100 #### [facility] [address] [place], [address] AST [Catalytic activity/Vol] 14 U/L Low 15-37 [facility] Comment on above: Performed By: #### L 501.9520, L500.4050, L100.0100, L500.4100 #### [facility] [address] [place], [address] Bilirubin [Mass/Vol] 0.50 mg/dL Normal 0.20-1.00 [facility] Comment on above: Result Comment: For patients on eltrombopag therapy, use of Dimension [place] TBIL is not recommended. Performed By: #### L 501.9520, L500.4050, L100.0100, L500.4100 #### [facility] [address] [place], [address] BUN/CRE 14.5 RATIO Normal 10-20 [facility] Comment on above: Performed By: #### L 501.9520, L500.4050, L100.0100, L500.4100 #### [facility] [address] [place], [address] CA,Total 9.7 mg/dL Normal 8.5-10.1 [facility] Comment on above: Performed By: #### L 501.9520, L500.4050, L100.0100, L500.4100 #### [facility] [address] [place], [address] Chloride [Moles/Vol] 105 mmol/L Normal 98-107 [facility] Comment on above: Performed By: #### L 501.9520, L500.4050, L100.0100, L500.4100 #### [facility] [address] [place], [address] CO2 [Moles/Vol] 28.0 mmol/L Normal 21.0-32.0 [facility] Comment on above: Performed By: #### L 501.9520, L500.4050, L100.0100, L500.4100 #### [facility] [address] [place], [address] Creatinine [Mass/Vol] 1.24 mg/dL Normal 0.70-1.30 [facility] Comment on above: Result Comment: The validity of the calculated GFR GFRAA in patients over 70 years has not been determined. Clinical correlation is essential. Performed By: #### L 501.9520, L500.4050, L100.0100, L500.4100 #### [facility] [address] [place], [address] EST GFR - AA 72 mL/min Normal >60 [facility] Comment on above: Result Comment: Afri can [place] GFR Calc Performed By: #### L 501.9520, L500.4050, L100.0100, L500.4100 #### [facility] [address] [place], [address] GAP 7 Normal 5-15 [facility] Comment on above: Performed By: #### L 501.9520, L500.4050, L100.0100, L500.4100 #### [facility] [address] [place], [address] GFR/1.73 sq M.predicted among non-blacks MDRD (S/P/Bld) [Vol rate/Area] 59 mL/min/{1.73_m2} Low >60 [facility] Comment on above: Result Comment: Non- GFR Calc Performed By: #### L 501.9520, L500.4050, L100.0100, L500.4100 #### [facility] [address] [place], [address] Globulin (S) [Mass/Vol] 3.4 g/dL Normal 2.2-4.2 [facility] Comment on above: Performed By: #### L 501.9520, L500.4050, L100.0100, L500.4100 #### [facility] [address] [place], [address] Glucose [Mass/Vol] 113 mg/dL High 74-106 [facility] Comment on above: Result Comment: Fast ing Glucose result from 100 to 125 mg/dL suggests IMPAIRED HOMEOSTASIS per A.D.A. criteria. Performed By: #### L 501.9520, L500.4050, L100.0100, L500.4100 #### [facility] [address] [place], [address] Potassium [Moles/Vol] 4.3 mmol/L Normal 3.5-5.1 [facility] Comment on above: Performed By: #### L 501.9520, L500.4050, L100.0100, L500.4100 #### [facility] [address] [place], [address] Sodium [Moles/Vol] 139 mmol/L Normal 136-145 [facility] Comment on above: Performed By: #### L 501.9520, L500.4050, L100.0100, L500.4100 #### [facility] [address] [place], [address] T PROT 7.3 g/dL Normal 6.4-8.2 [facility] Comment on above: Performed By: #### L 501.9520, L500.4050, L100.0100, L500.4100 #### [facility] [address] [place], [address] Urea nitrogen [Mass/Vol] 18 mg/dL Normal 7-18 [facility] Comment on above: Performed By: #### L 501.9520, L500.4050, L100.0100, L500.4100 #### [facility] [address] [place], [address] Internal Medicine Office Vis iton 11-24-2023 Internal Medicine Office Visit [facility] [address] [place], [place] [address] OFFICE VISIT Date of Service: 11/24/23 MR#: [id number] Acct: [id number] Name: KEVIN WHITE Rep #: [id number] : 1940 Provider: TIM Bright Age/Sex: 83/M Location: [facility] [place] Status: Signed Intake Vital Signs 08/23/23 13:13 11/24/23 13:08 Height 6 ft 6 ft Weight: 220 lb 213 lb BMI 29.8 28.8 BP 108/62 110/62 Blood Pressure Location Lt brachial Lt brachial Position Sitting Sitting Respiration 16 18 Pulse 75 56 L Pulse Source Monitor Monitor Temp 98.3 F 99.8 F H Temp Source Temporal Temporal Pulse Oximetry (%) 95 96 Oxygen Delivery Method room air room air Intake Visit Reasons: 3 M FU Chief Complaint: needs medication refills [employer] Required: No Is patient in pain?: No Allergies No Known Allergies Allergy (Unverified 11/24/23 12:45) Medications ???Medication ???Instructions ???Recorded ???Confirmed ???Type dofetilide 250 mcg capsule mcg PO 02/26/23 11/24/23 History magoxide PO 02/26/23 11/24/23 History mecobalamin (vitamin B12) 1,000 1,000 mcg sublingual DAILY 02/26/23 11/24/23 History mcg disintegrating tablet,sublingual multivitamin (Daily Multi-Vitamin 1 tab PO DAILY 01/12/24 10/09/24 History tablet) amlodipine 5 mg tablet 5 mg PO DAILY #90 tabs 04/14/23 11/24/23 Rx pantoprazole 40 mg tablet,delayed 40 mg PO DAILY #90 tabs 08/24/23 11/24/23 Rx release apixaban 5 mg tablet (Eliquis) 5 mg PO BID #180 TABLETS 10/05/23 11/24/23 Rx fluoxetine 20 mg capsule 20 mg PO DAILY #90 caps 10/05/23 11/24/23 Rx levothyroxine 175 mcg tablet 175 mcg PO DAILY #90 tabs 10/05/23 11/24/23 Rx lisinopril 10 mg tablet 10 mg PO DAILY #90 tabs 10/05/23 11/24/23 Rx tamsulosin 0.4 mg capsule 0.8 mg (2 x 0.4 mg) PO DAILY #180 10/05/23 11/24/23 Rx caps trazodone 50 mg tablet 25 mg (1/2 x 50 mg) PO QHS PRN 10/05/23 11/24/23 Rx insomnia #90 tabs metformin 500 mg tablet,extended 500 mg PO BID 3 months #180 tabs 11/24/23 11/24/23 Rx release 24 hr oxybutynin chloride 10 mg 10 mg PO QDAY 11/24/23 11/24/23 History tablet,extended release 24 hr rosuvastatin 20 mg tablet 20 mg PO QDAY #90 tabs 11/24/23 11/24/23 Rx Have you fallen in the past year?: No PFSH Medical History Low calcium levels Hearing problem Cataract GERD (gastroesophageal reflux disease) Surgical History History of left heart catheterization H/O hernia repair Hx of chest tube placement H/O aortic valve replacement History of cardioversion Hx of CABG Family History Father Myocardial infarction Diabetes Mother Hypertension Myocardial infarction Brother Suicide Brother Diabetes Social History household members: spouse current occupational status: retired 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 He takes metformin daily (his makes sure he gets it). She states that every time he stops it the sugars shoot way up. He does not check his sugars his occasionally will) He does see Nephrology every 6 months to manage his kidney disease. They state that they recently started him on another medication for his kidneys. He also manages his prostate medications (flomax and oxybutynin.) Patient also sees cardiology every 3 months for management of his A-fib and his CAD. No recent changes in medication or management. His doesn't check his blood pressure ever at home. When he does have it checked at his appointments, it is always very good. Patient does see eye doctor annually HE does see dentist annually (due for his annual) Patient has no concerns with his depression Patient states that his GERD is well controlled on the pantoprazole. He has no concerns or complaints at this time. ROS Const Constitutional: No body ache, chills, excessive sweating, fatigue, fever(s), frequent falls, headache(s), snoring, weakness, sleep problems or change in appetite Eyes Eyes: No blurry vision, change in vision, eye pain or Light sensitivity ENT ENT: No abnormal hearing, ear or mastoid pain, tinnitus, nasal congestion, headache(s), neck pain or (more content not included)... Normal [facility] Lipid Profileon 11-24-2023 Cholesterol [Mass/Vol] 111 mg/dL Normal 200 [facility] Comment on above: Result Comment: <200 mg/dL Desirable 200-240 mg/dL Borderline >240 mg/dL High Risk Performed By: #### L 501.8178, L500.4050, L100.0100, L500.4100 #### [facility] [address] [place], [address] Cholesterol in HDL [Mass/Vol] 45 mg/dL Normal [facility] Comment on above: Result Comment: The drugs N-Acetylcysteine and Metamizole may falsely depress this assay. Reference Range HDL <40 mg/dL Low HDL Cholesterol HDL >or= 60 mg/dL High HDL Cholesterol Performed By: #### L 501.9520, L500.4050, L100.0100, L500.4100 #### [facility] [address] [place], [address] Cholesterol in LDL [Mass/Vol] 44 mg/dL Normal 0-130 [facility] Comment on above: Performed By: #### L 501.9520, L500.4050, L100.0100, L500.4100 #### [facility] [address] [place], [address] Cholesterol in VLDL [Mass/Vol] 22 mg/dL Normal 5-40 [facility] Comment on above: Performed By: #### L 501.9520, L500.4050, L100.0100, L500.4100 #### [facility] [address] [place], [address] Triglyceride [Mass/Vol] 109 mg/dL Normal [facility] Comment on above: Result Comment: The drugs N-Acetylcysteine and Metamizole may falsely depress this assay. Serum Triglycerides Reference Interval Normal <150 mg/dL Borderline high 150 - 199 mg/dL High 200 - 499 mg/dL Very High > or = 500 mg/dL Performed By: #### L 501.9520, L500.4050, L100.0100, L500.4100 #### [facility] [address] [place], [address] Thyroid Stim Hormone (TSH)on 11-24-2023 TSH 0.240 uIU/mL Low 0.358-3.740 [facility] Comment on above: Performed By: #### L 501.9520, L500.4050, L100.0100, L500.4100 #### [facility] [address] [place], [address] CBC WITH AUTO DIFFERENTIALon 10-15-2023 AUTO NRBC 0.0 % Normal [facility] Comment on above: Performed By: #### L [id number] #### LAB [address] [address] Azam Pickering M.D. [id number] AUTO NRBC ABS COUNT 0.00 K/mcL Normal 0.00-0.00 [facility] Comment on above: Performed By: #### L [id number] #### LAB [address] [address] Azam Pickering M.D. [id number] BASOPHILS ABSOLUTE COUNT 0.02 K/mcL Normal 0.00-0.30 [facility] Comment on above: Performed By: #### L [id number] #### LAB [address] [address] Azam Pickering M.D. [id number] Basophils/100 WBC (Bld) 0.3 % Normal [facility] Comment on above: Performed By: #### L [id number] #### LAB [address] [address] Azam Pickering M.D. [id number] Eosinophils (Bld) [#/Vol] 0.15 10*3/uL Normal 0.00-0.50 [facility] Comment on above: Performed By: #### L [id number] #### LAB [address] [address] Azam Pickering M.D. [id number] Eosinophils/100 WBC (Bld) 2.0 % Normal [facility] Comment on above: Performed By: #### L [id number] #### LAB [address] [place] [address] Aazm Pickering M.D. [id number] Erythrocyte distribution width (RBC) [Ratio] 12.7 % Normal 11.6-14.8 [facility] Comment on above: Performed By: #### L [id number] #### LAB [address] [address] Azam Pickering M.D. [id number] Hematocrit (Bld) [Volume fraction] 41.3 % Normal 41.0-53.0 [facility] Comment on above: Performed By: #### L [id number] #### LAB [address] [address] Azam Pickering M.D. [id number] Hemoglobin (Bld) [Mass/Vol] 13.7 g/dL Normal 13.5-17.5 [facility] Comment on above: Performed By: #### L [id number] #### LAB [address] [address] Azam Pickering M.D. [id number] IG ABSOLUTE 0.03 K/mcL Normal 0.00-0.30 [facility] Comment on above: Performed By: #### L [id number] #### LAB [address] [place] [address] Azam Pickering M.D. [id number] IG PERCENT 0.40 % Normal [facility] Comment on above: Result Comment: The IG parameter is the percentage of metamyelocytes, myelocytes and promyelocytes. An immature granulocyte count (IG) of 1% or more suggests the possibility of infection, an IG count of 3% is very likely related to an infection. Performed By: #### L [id number] #### LAB [address] [place] [address] Azam Pickering M.D. [id number] Lymphocytes (Bld) [#/Vol] 0.77 10*3/uL Low 0.90-4.00 [facility] Comment on above: Performed By: #### L [id number] #### LAB [address] [place] [address] Azam Pickering M.D. [id number] Lymphocytes/100 WBC (Bld) 10.1 % [facility] Comment on above: Performed By: #### L [id number] #### LAB [address] [place] [address] Azam Pickering M.D. [id number] MCH (RBC) [Entitic mass] 32.0 pg Normal 26.0-34.0 [facility] Comment on above: Performed By: #### L [id number] #### LAB [address] [address] Azam Pickering M.D. [id number] MCV (RBC) [Entitic vol] 96.5 fL Normal 80.0-100.0 [facility] Comment on above: Performed By: #### L [id number] #### LAB [address] [address] Azam Pickering M.D. [id number] MEAN CORPUSCULAR HEMOGLOBIN CONC 33.2 g/dL Normal 31.0-37.0 [facility] Comment on above: Performed By: #### L [id number] #### LAB [address] [address] Azam Pickering M.D. [id number] Monocytes (Bld) [#/Vol] 0.91 10*3/uL High 0.30-0.90 [facility] Comment on above: Performed By: #### L [id number] #### LAB [address] [address] Azam Pickering M.D. [id number] Monocytes/100 WBC (Bld) 11.9 % Normal [facility] Comment on above: Performed By: #### L [id number] #### LAB [address] [address] Azam Pickering M.D. [id number] NEUTROPHILS ABSOLUTE COUNT 5.77 K/mcL Normal 1.70-7.00 [facility] Comment on above: Performed By: #### L [id number] #### [facility] [address] [address] Azam Pickering M.D. [id number] Neutrophils/100 WBC (Bld) 75.3 % Normal [facility] Comment on above: Performed By: #### L [id number] #### LAB [address] [address] Azam Pickering M.D. [id number] Platelet mean volume (Bld) [Entitic vol] 9.7 fL Normal 9.4-12.4 [facility] Comment on above: Performed By: #### L [id number] #### [facility] [address] [address] Azam Pickering M.D. [id number] Platelets (Bld) [#/Vol] 111 10*3/uL Low 150-400 [facility] Comment on above: Performed By: #### L [id number] #### [facility] [address] [address] Azam Pickering M.D. [id number] RBC (Bld) [#/Vol] 4.28 10*6/uL Low 4.50-5.90 [facility] Comment on above: Performed By: #### L [id number] #### [facility] [address] [address] Azam Pickering M.D. [id number] WBC (Bld) [#/Vol] 7.65 10*3/uL Normal 4.50-11.00 [facility] Comment on above: Performed By: #### L [id number] #### [facility] [address] [id number] Azam Pickering M.D. [id number] POC GLUCOSE - [facility] 024 Glucose [Mass/Vol] 135 mg/dL High 65-99 [facility] Comment on above: Performed By: #### [id number] #### [facility] [address] [address] Azam Pickering M.D. [id number] CT [facility] HEART (TAP BUILDER READ)on 10-13-2023 CT [facility]A HEART (TAP BUILDER READ) Cardiac Morphology CTA for Assessment of Left Atrial Appendage Patient Name: Kevin White Age: 83 y.o. Requesting Physician: Vanda Muir MD Interpreting Duplicating Machine Mechanic:Pily Schwartz MD Primary Care Physician: Moi Gibson Clinical Indication: Left atrial appendage assessment Gender: male Race/Ethnicity: White Procedure: Computed tomographic, heart with contrast for evaluation of cardiac structure and morphology and evaluation of venous structures. Second 25 sec delayed limited field of view obtained to evaluate for left atrial appendage thrombus. BMI: 30.5 kg/msq Acquisition mode: Prospectively ECG triggered Complications: None Image Quality: Good. No significant artifacts. Scanner: Dada DLP: 234.02 mGy Radiation dose reduction was achieved by using automated exposure control and or adjustments of mA and/or kV according to patient size and/or use of iterative reconstruction techniques. Contrast: 100 cc Isovue 370. Pulmonary Vein and Left Atrial Appendage Anatomy Pulmonary Veins: Normal pulmonary venous drainage. There are four pulmonary veins identified. Two on the right and two on the left. Left Atrial Appendage: S/P clipping. No residual left atrial appendage tissue noted. Left atrium: Left atrial size is Enlarged. Left Ventricle: The ventricular cavity size is within normal limits. There is no abnormal filling defects. Pericardium: Normal thickness with no significant effusion or calcification present. Cardiac valves: Well-seated bioprosthetic aortic valve. Mitral annular calcification. Aorta: Normal caliber thoracic aorta with the following measurements at the PA bifurcation: AAo 35 x 33 mm; Haily 32 x 31 mm. Mild calcification. PLEASE SEE SEPARATE RADIOLOGY REPORT FOR THE NONCARDIAC FINDINGS IMPRESSION S/P left atrial appendage clipping. No residual left atrial appendage tissue noted. Dictated by: PILY SCHWARTZ on WedOct 13, 2023 1:46:41 PM EDT Transcribed by: PILY SCHWARTZ on WedOct 13, 2023 1:46:41 PM EDT Finalized by: PILY SCHWARTZ on WedOct 13, 2023 1:46:41 PM EDT Normal [facility] CT PULMONARY VEIN WITH RECON STRUCTIONS 3Don 10-13-2023 CT PULMONARY VEIN WITH RECONSTRUCTIONS 3D EXAMINATION: CT PULMONARY VEIN WITH RECONSTRUCTIONS 3D HISTORY: ORDERING SYSTEM PROVIDED HISTORY: rule out HEATHER thrombus for DCCV, TECHNOLOGIST PROVIDED HISTORY: Illness/Other Reason for exam: f/u thrombus prior to DCCV. supplemental read Encounter Type: Initial Additional signs and symptoms: . ORDERING SYSTEM PROVIDED DIAGNOSIS CODES: I48.91 Atrial fibrillation, unspecified type (HCC) COMPARISON: CT TAVR 07/08/2021. TECHNIQUE: CT imaging from the base of the heart to the apex before and after the administration of intravenous contrast. CT pulmonary vein protocol was utilized. Duplicating Machine Mechanic will interpret the pulmonary vein portion of the examination. Radiologist will interpret the extracardiac portion of the examination. Dose reduction techniques were achieved by using automated exposure control and/or adjustment of mA and/or kV according to patient size and/or use of iterative reconstruction technique. CONTRAST: IOPAMIDOL 370 MG IODINE/ML (76 %) INTRAVENOUS SOLUTION - 100 mL, FINDINGS: MEDIASTINUM: Visualized airways are patent. Cardiomegaly. No pericardial effusion. Postoperative changes of median sternotomy, aortic valve replacement left atrial appendage ligation. The visualized thoracic aorta is normal in caliber without dissection. Mild atherosclerotic changes of the descending aorta. Main pulmonary artery is normal in caliber. No large central pulmonary embolus. Multiple prominent, partially calcified mediastinal and hilar lymph nodes. PLEURAL CAVITY: No pleural effusion. LUNGS: No focal airspace consolidation. Mild dependent atelectasis of the lower lobes. VISUALIZED UPPER ABDOMEN: No acute findings. BONES: No destructive lesions. Diffuse idiopathic skeletal hyperostosis. IMPRESSION: No focal airspace consolidation. Mildly enlarged mediastinal and hilar nodes with partial calcification, similar to 07/08/2021. Findings likely relate to sequela of prior healed granulomatous infection. Please refer to separate report for dedicated cardiac evaluation. /[facility] Workstation ID: [id number] Dictated by: REDD MACDONALD on WedOct 13, 2023 1:12:56 PM EDT Transcribed by: ARI BLUM on WedOct 13, 2023 1:20:43 PM EDT Finalized by: REDD MACDONALD on WedOct 13, 2023 4:44:59 PM EDT Normal [facility] Comment on above: Order Comment: Injur y/Trauma or Illness?:Illness/OtherHow long have you had these symptoms (acute/chronic)?:AcuteReason for exam?:f/u thrombus prior to DCCV. supplemental readType of Exam?:InitialAdditional signs and symptoms?:. BASIC METABOLIC PANELon 09-16 Anion gap [Moles/Vol] 17 mmol/L Normal -20 [facility] Comment on above: Order Comment: [facility] has implemented the eGFR calculation approach that does not have a coefficient for race that conforms to the NKF-ASN Task Force Recommendations. Performed By: #### L [id number] #### [facility] [address] [place], [place] [address] Azam Pickering M.D. [id number] Calcium [Mass/Vol] 9.2 mg/dL Normal 8.4-10.2 [facility] Comment on above: Order Comment: [facility] has implemented the eGFR calculation approach that does not have a coefficient for race that conforms to the NKF-ASN Task Force Recommendations. Performed By: #### L [id number] #### [facility] [address] [place] [id number] Azam Pickering M.D. [id number] Chloride [Moles/Vol] 102 mmol/L Normal 98-108 [facility] Comment on above: Order Comment: [facility] has implemented the eGFR calculation approach that does not have a coefficient for race that conforms to the NKF-ASN Task Force Recommendations. Performed By: #### L [id number] #### [facility] [address] [place] [address] Azam Pickering M.D. [id number] Creatinine [Mass/Vol] 1.21 mg/dL Normal 0.80-1.30 [facility] Comment on above: Order Comment: [facility] has implemented the eGFR calculation approach that does not have a coefficient for race that conforms to the NKF-ASN Task Force Recommendations. Performed By: #### L [id number] #### [facility] [address] [place] [address] Azam Pickering M.D. [id number] EGFR 60 mL/min/1.73 m2 Normal >=60 [facility] Comment on above: Order Comment: [facility] has implemented the eGFR calculation approach that does not have a coefficient for race that conforms to the NKF-ASN Task Force Recommendations. Result Comment: Isabell mated GFR was calculated using the 2020 CKD-EPI creatinine equation. Performed By: #### L [id number] #### [facility] [address] [place] [address] Azam Pickering M.D. [id number] Glucose [Mass/Vol] 174 mg/dL High 65-99 [facility] Comment on above: Order Comment: [facility] has implemented the eGFR calculation approach that does not have a coefficient for race that conforms to the NKF-ASN Task Force Recommendations. Performed By: #### L [id number] #### [facility] [address] [place], [place] [address] Azam Pickering M.D. [id number] HCO3 (Bld) [Moles/Vol] 24 mmol/L Normal 21-32 [facility] Comment on above: Order Comment: [facility] has implemented the eGFR calculation approach that does not have a coefficient for race that conforms to the NKF-ASN Task Force Recommendations. Performed By: #### L [id number] #### [facility] [address] [place] [address] Azam Pickering M.D. [id number] Potassium [Moles/Vol] 4.1 mmol/L Normal 3.5-5.1 [facility] Comment on above: Order Comment: [facility] has implemented the eGFR calculation approach that does not have a coefficient for race that conforms to the NKF-ASN Task Force Recommendations. Performed By: #### L [id number] #### [facility] [address] [place] [address] Azam Pickering M.D. [id number] Sodium [Moles/Vol] 139 mmol/L Normal 135-145 [facility] Comment on above: Order Comment: [facility] has implemented the eGFR calculation approach that does not have a coefficient for race that conforms to the NKF-ASN Task Force Recommendations. Performed By: #### L [id number] #### [facility] [address] [place], [place] [address] Azam Pickering M.D. [id number] Urea nitrogen [Mass/Vol] 19 mg/dL Normal 8-25 [facility] Comment on above: Order Comment: [facility] has implemented the eGFR calculation approach that does not have a coefficient for race that conforms to the NKF-ASN Task Force Recommendations. Performed By: #### L [id number] #### [facility] [address] [place], [place] [address] Azam Pickering M.D. [id number] Urea nitrogen/Creatinine [Mass ratio] 15.7 mg/mg Normal 10.0-20.0 [facility] Comment on above: Order Comment: [facility] has implemented the eGFR calculation approach that does not have a coefficient for race that conforms to the NKF-ASN Task Force Recommendations. Performed By: #### L [id number] #### [facility] [address] [place], [place] [address] Azam Pickering M.D. [id number] MAGNESIUM LEVELon 10-07-2023 Magnesium [Mass/Vol] 1.7 mg/dL Normal 1.6-2.4 [facility] Comment on above: Performed By: #### L [id number] #### LAB [address] [place], [place] [address] Azam Pickering M.D. [id number] PSA,Total- Diagnosticon 07-0 PSA, DIAGNOSTIC 6.91 ng/mL High 0.0-4.0 [facility] Comment on above: Result Comment: This test was performed using the TPSA assay method for the Joyride chemistry system. Values obtained with different assay methods cannot be used interchangably. When changing PSA assays in the course of monitoring a patient, additional sequential testing should be carried out to confirm baseline values. Performed By: #### L [id number] #### [facility] [address] [place], [address] Internal Medicine Office Vis iton 08-20-2023 Internal Medicine Office Visit [facility] [address] [place] [address] [place] [address] OFFICE VISIT Date of Service: 08/23/23 MR#: [id number] Acct: [id number] Name: KEVIN WHITE Rep #: [id number] : 1940 Provider: Dr. Moi santos MD Age/Sex: 82/M Location: [facility] [place] Status: Signed Intake Vital Signs 05/24/23 12:57 08/23/23 13:13 Height 6 ft 6 ft Weight: 220 lb BMI 29.8 BP 108/62 Blood Pressure Location Lt brachial Position Sitting Respiration 16 Pulse 75 Pulse Source Monitor Temp 98.3 F Temp Source Temporal Pulse Oximetry (%) 95 Oxygen Delivery Method room air Intake Visit Reasons: 3 M FU [employer] Required: No Is patient in pain?: No Allergies No Known Allergies Allergy (Unverified 08/23/23 13:05) Medications ???Medication ???Instructions ???Recorded ???Confirmed ???Type dofetilide 250 mcg capsule mcg PO 02/26/23 08/23/23 History levothyroxine 175 mcg tablet mcg PO 02/26/23 08/23/23 History lisinopril 10 mg tablet mg PO 02/26/23 08/23/23 History magoxide PO 02/26/23 08/23/23 History mecobalamin (vitamin B12) 1,000 1,000 mcg sublingual DAILY 02/26/23 08/23/23 History mcg disintegrating tablet,sublingual metformin 500 mg tablet,extended mg PO 02/26/23 08/23/23 History release 24 hr multivitamin (Daily Multi-Vitamin 1 tab PO DAILY 02/26/23 08/23/23 History tablet) rosuvastatin 20 mg tablet mg PO 02/26/23 08/23/23 History trazodone 50 mg tablet mg PO 02/26/23 08/23/23 History amlodipine 5 mg tablet 5 mg PO DAILY #90 tabs 04/14/23 08/23/23 Rx fluoxetine 20 mg capsule 20 mg PO DAILY #90 caps 04/14/23 08/23/23 Rx apixaban 5 mg tablet (Eliquis) 5 mg PO BID #180 tabs 05/24/23 08/23/23 Rx pantoprazole 40 mg tablet,delayed 40 mg PO DAILY #90 tabs 05/25/23 08/23/23 Rx release tamsulosin 0.4 mg capsule 0.8 mg (2 x 0.4 mg) PO DAILY #180 05/25/23 08/23/23 Rx caps Have you fallen in the past year?: No PFSH Medical History Cataract GERD (gastroesophageal reflux disease) Hearing problem Low calcium levels Surgical History H/O aortic valve replacement H/O hernia repair History of cardioversion History of left heart catheterization Hx of CABG Hx of chest tube placement Family History Father Myocardial infarction Diabetes Mother Hypertension Myocardial infarction Brother Suicide Brother Diabetes Social History household members: spouse current occupational status: retired current occupation: [employer] Smoking Status: Former smoker Electronic Cigarette Use: not used how long ago did patient quit smoking: smoked an occasional cigar more than 50 years ago alcohol intake: never substance use type: does not use what type of physical activity do you participate in: none do you feel safe at home: Yes HPI HPI Details: KEVIN WHITE, is a 82 M who presents to the office today for a follow up. He is up to date on his routine blood work and is up to date on his screening. He last had a colonoscopy last year and doesn't need any further. He isn't due for any immunizations. He doesn't smoke and does not need refills. He reports he is eating healthy and isn't very active. He does check his blood pressure at home occasionally and when he does, it is in normal range. He is taking his medication as prescribed without problems. He does try to monitor his salt intake. He has a history of CAD and Afib and follows with cardiology. He denies any current symptoms of chest pain or palpitations. He does think his shortness of breath has been doing better recently. He is taking his medication as prescribed without problems. He hasn't been checking his sugars at home recently. He is taking his medication as prescribed without problems. He does try to monitor his carbohydrate and sugar intake. He is up to date on his diabetic eye exam and does see podiatry, Dr. Villafana. He takes his synthroid first thing in the morning before anything else. He denies any problems with the medication. 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 He is taking his medications as prescribed without problems. He last saw neurology in June and was told no further follow up was needed. He denies any ongoing problems. Post CVA, the patient did develop some depression and anxiety due to his new limitations. He does feel his medications are helping without problems. He denies any thoughts of suicide. He has a history of NAJMA. He doesn't wear a CPAP stating he doesn't like it. He uses an adjustable bed and seems to do better with that. RADHA Pierce (more content not included)... Normal [facility] Absolute lymphocyte countOrd ered By: Moi Gibson on 05-24-2023 Lymphocytes Auto (Unsp spec) [#/Vol] 1.12 10*3/uL 0.83-4.51 [facility] Automated lymphocyte count a s percentage of total leukocytesOrdered By: Moi Gibson on 05-24-2023 Lymphocytes/100 WBC Auto (Unsp spec) 14.9 % 19-41 [facility] Basophil percentageOrdered B y: Moi Gibson on 05-24-2023 Basophil percentage 6.69 ng/mL 0.0-4.0 [facility] Comment on above: This test was perfor med using the TPSA assay method for theJoyride chemistry system. Values obtained with differentassay methods cannot be used interchangably.When changing PSA assays in the course of monitoring apatient, additional sequential testing should be carriedout to confirm baseline values. Basophils/100 WBC (Bld) 0.4 % 0-1 [facility] Eosinophils/100 WBC (Bld) 2.0 % 0-5 [facility] Hemoglobin (Bld) [Mass/Vol] 14.2 g/dL 13.0-16.5 [facility] Monocytes/100 WBC (Bld) 12.7 % 0-10 [facility] Neutrophils (Bld) [#/Vol] 5.2 10*3/uL 2.0-7.7 [facility] Neutrophils/100 WBC (Bld) 69.5 % 47-70 [facility] WBC (Bld) [#/Vol] 7.5 10*3/uL 4.4-11.0 [facility] Determination of erythrocyte mean corpuscular volume (MCV)Ordered By: Moi Gibson on 05-24-2023 MCV (RBC) [Entitic vol] 96.9 fL 80-94 [facility] Erythrocyte distribution wid th ratioOrdered By: Moi Gibson on 05-24-2023 Erythrocyte distribution width (RBC) [Ratio] 12.9 % 11.6-14.6 [facility] Erythrocyte distribution wid th standard deviationOrdered By: Moi Gibson on 05-24-2023 Erythrocyte distribution width (RBC) [Entitic vol] 46.1 fL 35.1-43.9 [facility] Hematocrit Auto (Bld) [Volum e fraction]Ordered By: Moi Gibson on 05-24-2023 Hematocrit (Bld) [Volume fraction] 43.7 % 40-54 [facility] Immature granulocytes/100 WB C Auto (Bld)Ordered By: Moi Gibson on 05-24-2023 Immature granulocytes/100 WBC (Bld) 0.500 % 0.0-0.9 [facility] Comment on above: IG% - Immature Granu locytes (promyelocytes, myelocytes and metamyelocytes) > 1% indicates that a LEFT SHIFT is Present. Laboratory - Chemistry and C hemistry - challengeOrdered By: Moi Gibson on 05-24-2023 Magnesium [Mass/Vol] 1.8 mg/dL 1.6-2.6 [facility] - Hematology and Cell countsOrdered By: Moi Gibson on 05-24-2023 MCH (RBC) [Entitic mass] 31.5 pg 27.0-32.0 [facility] MCHC (RBC) [Mass/Vol] 32.5 g/dL 32-36 [facility] Nucleated RBC/100 WBC (Bld) [Ratio] 0 % 0-5 [facility] Platelet mean volume (Bld) [Entitic vol] 10.2 fL 6.2-12.0 [facility] Platelets (Bld) [#/Vol] 115 10*3/uL 150-450 [facility] Laboratory - Hematology and Cell countson 05-24-2023 HbA1c (Bld) [Mass fraction] 6.4 % 4.2-6.3 [facility] No Panel InformationOrdered By: Moi Gibson on 05-24-2023 Vitamin D 25-Hydroxy 41.6 ng/mL [facility] Comment on above: Vitamin D 25(OH) Sta tus Range Deficiency <20 ng/mL (50nmol/L) Insufficiency 20 - 30 ng/mL (50 - 75 nmol/L) Sufficiency 30 - 100 ng/mL (75 - 250 nmol/L) Toxicity >100 ng/mL (>250 nmol/L) RBC Auto (Bld) [#/Vol]Ordere d By: Moi Mccartneylay on 05-24-2023 RBC (Bld) [#/Vol] 4.51 10*6/uL 4.6-6.2 [facility] Basic metabolic 2000 panelon 04-13-2023 Anion gap [Moles/Vol] 7 mmol/L Low 10 - 2 0 mmol/L [facility] Calcium [Mass/Vol] 9.4 mg/dL 8.4 - 10. 2 mg/dL [facility] Chloride [Moles/Vol] 108 mmol/L 98 - 10 8 mmol/L [facility] Creatinine [Mass/Vol] 1.10 mg/dL 0.80 - 1.30 mg/dL [facility] GFR/1.73 sq M.predicted CKD-EPI (S/P/Bld) [Vol rate/Area] 67 - PINF [facility] Comment on above: Estimated GFR was ca lculated using the 2020 CKD-EPI creatinine equation. Glucose [Mass/Vol] 120 mg/dL High 65 - 99 mg/dL [facility] HCO3 [Moles/Vol] 29 mmol/L 21 - 32 mmol/L [facility] Interpretation and review of laboratory results Abnormal [facility] Potassium [Moles/Vol] 4.1 mmol/L 3.5 - 5.1 mmol/L [facility] Sodium [Moles/Vol] 140 mmol/L 135 - 145 mmol/L [facility] Urea nitrogen [Mass/Vol] 16 mg/dL 8 - 25 mg/d L [facility] Urea nitrogen/Creatinine [Mass ratio] 14.5 mg/mg 10.0 - 20.0 [facility] has implemented the eGFR calculation approach that does not have a coefficient for race that conforms to the NKF-ASN Task Force Recommendations. [facility] Magnesium Levelon 04-13-2023 Magnesium [Mass/Vol] 1.8 mg/dL 1.6 - 2 .4 mg/dL [facility] Magnesium [Mass/Vol]on 02-27 -2024 Interpretation and review of laboratory results Normal [facility] No Panel Informationon 04-13 [facility] Basophil percentageOrdered B y: Moi Gibson on 04-12-2023 Basophil percentage 0-5 SEEN /hpf 0-5 [facility] Bilirubin Test strip Ql (U)O rdered By: Moi Gibson on 04-12-2023 Bilirubin Ql (U) Negative Negative [facility] Ketones Test strip Ql (U)Ord ered By: Moi Gibson on 04-12-2023 Ketones Ql (U) 5 mg/dl Negative [facility] Mucus LM Ql (Urine sed)Order ed By: Moi Gibson on 04-12-2023 Mucus Ql (Urine sed) 0 SEEN /hpf [facility] Nitrite Test strip Ql (U)Ord ered By: Moi Gibson on 04-12-2023 Nitrite Ql (U) Negative Negative [facility] No Panel InformationOrdered By: Moi Gibson on 04-12-2023 Urine Microalbumin/Creatinine Ratio 60.0 mg/g CRE <30 [facility] Urine RBC 0 SEEN /hpf 0-5 [facility] Protein Test strip Ql (U)Ord ered By: Moi Gibson on 04-12-2023 Protein Ql (U) 30 mg/dl Negative [facility] Squamous epithelial cells de tection in urine sediment by light microscopyOrdered By: Moi Gibson on 04-12-2023 Epithelial cells.squamous LM Ql (Urine sed) 0 SEEN /hpf 0-5 [facility] Thin prep Papanicolaou smear with manual screeningOrdered By: Moi Gibson on 04-12-2023 Thin prep Papanicolaou smear with manual screening 108.0 mg/L NO RANGE EST. [facility] Urine blood detectionOrdered By: Moi Gibson on 04-12-2023 RBC Ql (U) Negative Negative [facility] Urine clarityOrdered By: Al Gibson on 04-12-2023 Clarity (U) Sl. Cloudy Clear [facility] Urine color determinationOrd ered By: Moi Gibson on 04-12-2023 Color (U) Yellow Yellow [facility] Urine creatinine measurement (mass/volume)Ordered By: oMi Gibson on 04-12-2023 Creatinine (U) [Mass/Vol] 180.00 mg/dL NO RANGE EST. [facility] Urine glucose detectionOrder ed By: Moi Gibson on 04-12-2023 Glucose Ql (U) Normal mg/dl Normal [facility] Urine leukocyte esterase det ection by dipstickOrdered By: Moi Gibson on 04-12-2023 Leukocyte esterase Test strip Ql (U) Negative Negative [facility] Urine pHOrdered By: Moi F indrudy on 04-12-2023 pH (U) 5.0 [pH] 5.0 - 8.0 [facility] Urine sediment bacteria coun t by microscopy (number/high power field)Ordered By: Moi Gibson on 04-12-2023 Bacteria LM.HPF (Urine sed) [#/Area] 0 /[HPF] None Seen [facility] Urine specific gravity measu rementOrdered By: Moi Gibson on 04-12-2023 Specific gravity (U) [Rel density] 1.025 1.002-1.030 [facility] Urine urobilinogen measureme ntOrdered By: Moi Gibson on 04-12-2023 Urobilinogen Ql (U) 1 mg/dl Normal [facility] Absolute lymphocyte countOrd ered By: Daphne Rylee on 02-26-2023 Lymphocytes Auto (Unsp spec) [#/Vol] 1.07 10*3/uL 0.83-4.51 [facility] Basophil percentageOrdered B y: Daphne Rylee on 02-26-2023 Basophils/100 WBC (Bld) 0.3 % 0-1 [facility] Bilirubin [Mass/Vol] 0.60 mg/dL 0.20-1.00 [facility] Comment on above: For patients on eltr ombopag therapy, use of Dimension [place] TBIL is not recommended. Chloride [Moles/Vol] 105 mmol/L 98-107 [facility] Cholesterol [Mass/Vol] 109 mg/dL <200 [facility] Comment on above: <200 mg/dL Desirable 200-240 mg/dL Borderline >240 mg/dL High Risk Eosinophils/100 WBC (Bld) 1.5 % 0-5 [facility] Glucose [Mass/Vol] 128 mg/dL 74-106 [facility] Comment on above: Fasting Glucose resu lt greater than or equal to 126 mg/dL suggests DIABETES MELLITUS per A.D.A. criteria. Neutrophils (Bld) [#/Vol] 5.6 10*3/uL 2.0-7.7 [facility] Neutrophils/100 WBC (Bld) 73.4 % 47-70 [facility] Potassium [Moles/Vol] 3.7 mmol/L 3.5-5.1 [facility] Protein [Mass/Vol] 7.3 g/dL 6.4-8.2 [facility] Sodium [Moles/Vol] 140 mmol/L 136-145 [facility] Triglyceride [Mass/Vol] 119 mg/dL <199 [facility] Comment on above: The drugs N-Acetylcy steine and Metamizole may falsely depress this assay.Serum Triglycerides Reference Interval Normal <150 mg/dL Borderline high 150 - 199 mg/dL High 200 - 499 mg/dL Very High > or = 500 mg/dL WBC (Bld) [#/Vol] 7.6 10*3/uL 4.4-11.0 [facility] Blood erythrocytes count (nu mber/volume)Ordered By: Daphne Mckee on 02-26-2023 RBC (Bld) [#/Vol] 4.60 10*6/uL 4.6-6.2 [facility] Blood hemoglobin measurement (mass/volume)Ordered By: Daphne Mckee on 02-26-2023 Hemoglobin (Bld) [Mass/Vol] 14.5 g/dL 13.0-16.5 [facility] Blood lymphocytes/100 leukoc ytesOrdered By: Daphne Mckee on 02-26-2023 Lymphocytes/100 WBC (Bld) 14.2 % 19-41 [facility] Blood manual differential co mment interpretation (narrative result)Ordered By: Daphne Mckee on 02-26-2023 Manual differential comment Willem (Bld) [Interp] SCANNED [facility] Blood monocytes/100 leukocyt esOrdered By: Daphne Mckee on 02-26-2023 Monocytes/100 WBC (Bld) 10.3 % 0-10 [facility] Blood platelet adequacy dete ction by light microscopyOrdered By: Daphne Mckee on 02-26-2023 Platelets LM Ql (Bld) MOD DEC ADEQ [facility] Blood platelet mean volumeOr dered By: Daphne Mckee on 02-26-2023 Platelet mean volume (Bld) [Entitic vol] 10.2 fL 6.2-12.0 [facility] Determination of erythrocyte mean corpuscular volume (MCV)Ordered By: Daphne Mckee on 02-26-2023 MCV (RBC) [Entitic vol] 99.1 fL 80-94 [facility] Hematocrit Auto (Bld) [Volum e fraction]Ordered By: Daphne Mckee on 02-26-2023 Hematocrit (Bld) [Volume fraction] 45.6 % 40-54 [facility] Laboratory - Chemistry and C hemistry - challengeOrdered By: Daphne Mckee on 02-26-2023 ALP [Catalytic activity/Vol] 75 U/L 45-117 [facility] ALT [Catalytic activity/Vol] 24 U/L 16-61 [facility] CO2 [Moles/Vol] 26.0 mmol/L 21.0-32.0 [facility] Globulin (S) [Mass/Vol] 3.6 g/dL 2.2-4.2 [facility] Urea nitrogen/Creatinine [Mass ratio] 13.1 mg/mg 10-20 [facility] Laboratory - Hematology and Cell countsOrdered By: Daphne Mckee on 02-26-2023 Erythrocyte distribution width (RBC) [Entitic vol] 47.4 fL 35.1-43.9 [facility] Erythrocyte distribution width (RBC) [Ratio] 13.1 % 11.6-14.6 [facility] Immature granulocytes/100 WBC (Bld) 0.300 % 0.0-0.9 [facility] Comment on above: IG% - Immature Granu locytes (promyelocytes, myelocytes and metamyelocytes) > 1% indicates that a LEFT SHIFT is Present. MCH (RBC) [Entitic mass] 31.5 pg 27.0-32.0 [facility] Nucleated RBC/100 WBC (Bld) [Ratio] 0 % 0-5 [facility] MCHC Auto (RBC) [Mass/Vol]Or dered By: Daphne Mckee on 02-26-2023 MCHC (RBC) [Mass/Vol] 31.8 g/dL 32-36 [facility] No Panel InformationOrdered By: Daphne Mckee on 02-26-2023 Estimated GFR (MDRD) Amer 68 mL/min >60 [facility] Comment on above: GFR Calc Estimated GFR (MDRD) Non-Af Amer 56 mL/min >60 [facility] Comment on above: Non- GFR Calc Thyroid Stimulating Hormone (TSH) 1.01 uIU/mL 0.358-3.74 [facility] Platelets bldOrdered By: Aspen Mckee on 02-26-2023 Platelets (Bld) [#/Vol] 98 10*3/uL 150-450 [facility] Serum or plasma albumin pam urement (mass/volume)Ordered By: Daphne Mckee on 02-26-2023 Albumin [Mass/Vol] 3.7 g/dL 3.2-5.0 [facility] Serum or plasma albumin/glob ulin mass ratioOrdered By: Daphne Mckee on 02-26-2023 Albumin/Globulin [Mass ratio] 1.0 {ratio} 0.9-2.4 [facility] Serum or plasma calcium pam urement (mass/volume)Ordered By: Daphne Mckee on 02-26-2023 Calcium [Mass/Vol] 9.7 mg/dL 8.5-10.1 [facility] Serum or plasma cholesterol in HDL measurement (mass/volume)Ordered By: Daphne Mckee on 02-26-2023 Cholesterol in HDL [Mass/Vol] 36 mg/dL >40 [facility] Comment on above: The drugs N-Acetylcy steine and Metamizole may falsely depress this assay. Reference Range HDL <40 mg/dL Low HDL Cholesterol HDL >or= 60 mg/dL High HDL Cholesterol Serum or plasma cholesterol in VLDL measurement (mass/volume)Ordered By: Daphne Mckee on 02-26-2023 Cholesterol in VLDL [Mass/Vol] 24 mg/dL 5-40 [facility] Serum or plasma creatinine m easurement (mass/volume)Ordered By: Daphne Mckee on 02-26-2023 Creatinine [Mass/Vol] 1.30 mg/dL 0.70-1.30 [facility] Comment on above: The validity of the calculated GFR & GFRAA in patients over 70 years has not been determined. Clinical correlation is essential. Serum or plasma low density lipoprotein (LDL) cholesterol measurement (mass/volume)Ordered By: Daphne Mckee on 02-26-2023 Cholesterol in LDL [Mass/Vol] 49 mg/dL 0-130 [facility] Serum or plasma urea nitroge n measurement (mass/volume)Ordered By: Daphne Mckee on 02-26-2023 Urea nitrogen [Mass/Vol] 17 mg/dL 7-18 [facility] Thin prep Papanicolaou smear with manual screeningOrdered By: Daphne Mckee on 02-26-2023 Thin prep Papanicolaou smear with manual screening 17 U/L 15-37 [facility] Thin prep Papanicolaou smear with manual screening 9 5-15 [facility] Whole blood hemoglobin A1c/t otal hemoglobin ratio (mass fraction)Ordered By: Daphne Mckee on 02-26-2023 HbA1c (Bld) [Mass fraction] 6.1 % 3.8-5.6 [facility] Comment on above: Normal < 5.7 % Predi abetic 5.7 - 6.4 % Diabetic >or= 6.5 % Please note range changes. Basic metabolic 2000 panelon 01-25-2023 Anion gap [Moles/Vol] 8 mmol/L Low 10 - 2 0 mmol/L [facility] Calcium [Mass/Vol] 8.6 mg/dL 8.4 - 10. 2 mg/dL [facility] Chloride [Moles/Vol] 108 mmol/L 98 - 10 8 mmol/L [facility] Creatinine [Mass/Vol] 1.23 mg/dL 0.80 - 1.30 mg/dL [facility] GFR/1.73 sq M.predicted CKD-EPI (S/P/Bld) [Vol rate/Area] 59 Low - PINF [facility] Comment on above: Estimated GFR was ca lculated using the 2020 CKD-EPI creatinine equation. Glucose [Mass/Vol] 127 mg/dL High 65 - 99 mg/dL [facility] HCO3 [Moles/Vol] 26 mmol/L 21 - 32 mmol/L [facility] Interpretation and review of laboratory results Abnormal [facility] Potassium [Moles/Vol] 4.4 mmol/L 3.5 - 5.1 mmol/L [facility] Sodium [Moles/Vol] 138 mmol/L 135 - 145 mmol/L [facility] Urea nitrogen [Mass/Vol] 20 mg/dL 8 - 25 mg/d L [facility] Urea nitrogen/Creatinine [Mass ratio] 16.3 mg/mg 10.0 - 20.0 [facility] has implemented the eGFR calculation approach that does not have a coefficient for race that conforms to the NKF-ASN Task Force Recommendations. [facility] CBC panel Auto (Bld)on 01-25 Erythrocyte distribution width (RBC) [Entitic vol] 13.2 % 11.6 - 14.8 % [facility] Hematocrit (Bld) [Volume fraction] 39.4 % Low 41.0 - 53.0 % [facility] Hemoglobin (Bld) [Mass/Vol] 12.9 g/dL Low 13.5 - 17.5 g/dL [facility] Interpretation and review of laboratory results Abnormal [facility] MCH (RBC) [Entitic mass] 32.5 pg 26. 0 - 34.0 pg [facility] MCHC (RBC) [Mass/Vol] 32.7 g/dL 31.0 - 37.0 g/dL [facility] MCV (RBC) [Entitic vol] 99.2 fL 80.0 - 100.0 fL [facility] Nucleated RBC (Bld) [#/Vol] 0.00 10*3/uL [facility] Nucleated RBC/100 WBC (Bld) [Ratio] 0.0 % [facility] Platelet mean volume (Bld) [Entitic vol] 9.7 fL 9.4 - 12.4 fL [facility] Platelets (Bld) [#/Vol] 106 10*3/uL Low [facility] RBC (Bld) [#/Vol] 3.97 10*6/uL Low [facility] WBC (Bld) [#/Vol] 7.36 10*3/uL [facility] Glucose (Bld) [Mass/Vol]on 1 03-28-2022 Glucose [Mass/Vol] 184 mg/dL High 65 - 99 mg/dL [facility] Interpretation and review of laboratory results Abnormal [facility] Basic metabolic 1999 panelon 01-24-2023 Anion gap [Moles/Vol] 9 mmol/L Low 10 - 2 0 mmol/L [facility] Calcium [Mass/Vol] 8.8 mg/dL 8.4 - 10. 2 mg/dL [facility] Chloride [Moles/Vol] 107 mmol/L 98 - 10 8 mmol/L [facility] Creatinine [Mass/Vol] 1.39 mg/dL High 0.80 - 1.30 mg/dL [facility] GFR/1.73 sq M.predicted CKD-EPI (S/P/Bld) [Vol rate/Area] 51 Low - PINF [facility] Comment on above: Estimated GFR was ca lculated using the 2020 CKD-EPI creatinine equation. Glucose [Mass/Vol] 145 mg/dL High 65 - 99 mg/dL [facility] HCO3 [Moles/Vol] 26 mmol/L 21 - 32 mmol/L [facility] Interpretation and review of laboratory results Abnormal [facility] Potassium [Moles/Vol] 4.3 mmol/L 3.5 - 5.1 mmol/L [facility] Sodium [Moles/Vol] 138 mmol/L 135 - 145 mmol/L [facility] Urea nitrogen [Mass/Vol] 22 mg/dL 8 - 25 mg/d L [facility] Urea nitrogen/Creatinine [Mass ratio] 15.8 mg/mg 10.0 - 20.0 [facility] has implemented the eGFR calculation approach that does not have a coefficient for race that conforms to the NKF-ASN Task Force Recommendations. [facility] Glucose (Bld) [Mass/Vol]on 03-27-2022 Glucose [Mass/Vol] 203 mg/dL High 65 - 99 mg/dL [facility] Interpretation and review of laboratory results Abnormal [facility] Glucose [Mass/Vol] 100 mg/dL High 65 - 99 mg/dL [facility] Interpretation and review of laboratory results Abnormal [facility] Glucose [Mass/Vol] 182 mg/dL High 65 - 99 mg/dL [facility] Interpretation and review of laboratory results Abnormal [facility] Glucose [Mass/Vol] 130 mg/dL High 65 - 99 mg/dL [facility] Interpretation and review of laboratory results Abnormal [facility] Basic metabolic 1999 panelon 01-23-2023 Anion gap [Moles/Vol] 10 mmol/L 10 - 2 0 mmol/L [facility] Calcium [Mass/Vol] 8.6 mg/dL 8.4 - 10. 2 mg/dL [facility] Chloride [Moles/Vol] 105 mmol/L 98 - 10 8 mmol/L [facility] Creatinine [Mass/Vol] 1.32 mg/dL High 0.80 - 1.30 mg/dL [facility] GFR/1.73 sq M.predicted CKD-EPI (S/P/Bld) [Vol rate/Area] 54 Low - PINF [facility] Comment on above: Estimated GFR was ca lculated using the 2020 CKD-EPI creatinine equation. Glucose [Mass/Vol] 148 mg/dL High 65 - 99 mg/dL [facility] HCO3 [Moles/Vol] 28 mmol/L 21 - 32 mmol/L [facility] Interpretation and review of laboratory results Abnormal [facility] Potassium [Moles/Vol] 4.7 mmol/L 3.5 - 5.1 mmol/L [facility] Sodium [Moles/Vol] 138 mmol/L 135 - 145 mmol/L [facility] Urea nitrogen [Mass/Vol] 22 mg/dL 8 - 25 mg/d L [facility] Urea nitrogen/Creatinine [Mass ratio] 16.7 mg/mg 10.0 - 20.0 [facility] has implemented the eGFR calculation approach that does not have a coefficient for race that conforms to the NKF-ASN Task Force Recommendations. [facility] Glucose (Bld) [Mass/Vol]on 03-26-2022 Glucose [Mass/Vol] 204 mg/dL High 65 - 99 mg/dL [facility] Interpretation and review of laboratory results Abnormal [facility] Glucose [Mass/Vol] 125 mg/dL High 65 - 99 mg/dL [facility] Interpretation and review of laboratory results Abnormal [facility] Glucose [Mass/Vol] 187 mg/dL High 65 - 99 mg/dL [facility] Interpretation and review of laboratory results Abnormal [facility] Glucose [Mass/Vol] 142 mg/dL High 65 - 99 mg/dL [facility] Interpretation and review of laboratory results Abnormal [facility] Basic metabolic 2000 panelon 01-22-2023 Anion gap [Moles/Vol] 10 mmol/L 10 - 2 0 mmol/L [facility] Calcium [Mass/Vol] 8.7 mg/dL 8.4 - 10. 2 mg/dL [facility] Chloride [Moles/Vol] 106 mmol/L 98 - 10 8 mmol/L [facility] Creatinine [Mass/Vol] 1.47 mg/dL High 0.80 - 1.30 mg/dL [facility] GFR/1.73 sq M.predicted CKD-EPI (S/P/Bld) [Vol rate/Area] 48 Low - PINF [facility] Comment on above: Estimated GFR was ca lculated using the 2020 CKD-EPI creatinine equation. Glucose [Mass/Vol] 125 mg/dL High 65 - 99 mg/dL [facility] HCO3 [Moles/Vol] 26 mmol/L 21 - 32 mmol/L [facility] Interpretation and review of laboratory results Abnormal [facility] Potassium [Moles/Vol] 4.6 mmol/L 3.5 - 5.1 mmol/L [facility] Sodium [Moles/Vol] 137 mmol/L 135 - 145 mmol/L [facility] Urea nitrogen [Mass/Vol] 22 mg/dL 8 - 25 mg/d L [facility] Urea nitrogen/Creatinine [Mass ratio] 15.0 mg/mg 10.0 - 20.0 [facility] has implemented the eGFR calculation approach that does not have a coefficient for race that conforms to the NKF-ASN Task Force Recommendations. [facility] Glucose (Bld) [Mass/Vol]on 03-25-2022 Glucose [Mass/Vol] 144 mg/dL High 65 - 99 mg/dL [facility] Interpretation and review of laboratory results Abnormal [facility] Glucose [Mass/Vol] 125 mg/dL High 65 - 99 mg/dL [facility] Interpretation and review of laboratory results Abnormal [facility] Glucose [Mass/Vol] 132 mg/dL High 65 - 99 mg/dL [facility] Interpretation and review of laboratory results Abnormal [facility] Glucose [Mass/Vol] 123 mg/dL High 65 - 99 mg/dL [facility] Interpretation and review of laboratory results Abnormal [facility] Basic metabolic 2000 panelon 01-21-2023 Anion gap [Moles/Vol] 10 mmol/L 10 - 2 0 mmol/L [facility] Calcium [Mass/Vol] 8.8 mg/dL 8.4 - 10. 2 mg/dL [facility] Chloride [Moles/Vol] 107 mmol/L 98 - 10 8 mmol/L [facility] Creatinine [Mass/Vol] 1.37 mg/dL High 0.80 - 1.30 mg/dL [facility] GFR/1.73 sq M.predicted CKD-EPI (S/P/Bld) [Vol rate/Area] 52 Low - PINF [facility] Comment on above: Estimated GFR was ca lculated using the 2020 CKD-EPI creatinine equation. Glucose [Mass/Vol] 139 mg/dL High 65 - 99 mg/dL [facility] HCO3 [Moles/Vol] 27 mmol/L 21 - 32 mmol/L [facility] Interpretation and review of laboratory results Abnormal [facility] Potassium [Moles/Vol] 4.7 mmol/L 3.5 - 5.1 mmol/L [facility] Sodium [Moles/Vol] 139 mmol/L 135 - 145 mmol/L [facility] Urea nitrogen [Mass/Vol] 22 mg/dL 8 - 25 mg/d L [facility] Urea nitrogen/Creatinine [Mass ratio] 16.1 mg/mg 10.0 - 20.0 [facility] has implemented the eGFR calculation approach that does not have a coefficient for race that conforms to the NKF-ASN Task Force Recommendations. [facility] Glucose (Bld) [Mass/Vol]on 03-24-2022 Glucose [Mass/Vol] 154 mg/dL High 65 - 99 mg/dL [facility] Interpretation and review of laboratory results Abnormal [facility] Glucose [Mass/Vol] 118 mg/dL High 65 - 99 mg/dL [facility] Interpretation and review of laboratory results Abnormal [facility] Glucose [Mass/Vol] 162 mg/dL High 65 - 99 mg/dL [facility] Interpretation and review of laboratory results Abnormal [facility] Glucose [Mass/Vol] 150 mg/dL High 65 - 99 mg/dL [facility] Interpretation and review of laboratory results Abnormal [facility] Basic metabolic 2000 panelon 01-20-2023 Anion gap [Moles/Vol] 9 mmol/L Low 10 - 2 0 mmol/L [facility] Calcium [Mass/Vol] 8.5 mg/dL 8.4 - 10. 2 mg/dL [facility] Chloride [Moles/Vol] 106 mmol/L 98 - 10 8 mmol/L [facility] Creatinine [Mass/Vol] 1.55 mg/dL High 0.80 - 1.30 mg/dL [facility] GFR/1.73 sq M.predicted CKD-EPI (S/P/Bld) [Vol rate/Area] 45 Low - PINF [facility] Comment on above: Estimated GFR was ca lculated using the 2020 CKD-EPI creatinine equation. Glucose [Mass/Vol] 132 mg/dL High 65 - 99 mg/dL [facility] HCO3 [Moles/Vol] 27 mmol/L 21 - 32 mmol/L [facility] Interpretation and review of laboratory results Abnormal [facility] Potassium [Moles/Vol] 4.9 mmol/L 3.5 - 5.1 mmol/L [facility] Sodium [Moles/Vol] 137 mmol/L 135 - 145 mmol/L [facility] Urea nitrogen [Mass/Vol] 25 mg/dL 8 - 25 mg/d L [facility] Urea nitrogen/Creatinine [Mass ratio] 16.1 mg/mg 10.0 - 20.0 [facility] has implemented the eGFR calculation approach that does not have a coefficient for race that conforms to the NKF-ASN Task Force Recommendations. [facility] Glucose (Bld) [Mass/Vol]on 03-23-2022 Glucose [Mass/Vol] 172 mg/dL High 65 - 99 mg/dL [facility] Interpretation and review of laboratory results Abnormal [facility] Glucose [Mass/Vol] 105 mg/dL High 65 - 99 mg/dL [facility] Interpretation and review of laboratory results Abnormal [facility] Glucose [Mass/Vol] 174 mg/dL High 65 - 99 mg/dL [facility] Interpretation and review of laboratory results Abnormal [facility] Glucose [Mass/Vol] 156 mg/dL High 65 - 99 mg/dL [facility] Interpretation and review of laboratory results Abnormal [facility] Basic metabolic 2000 panelon 01-19-2023 Anion gap [Moles/Vol] 11 mmol/L 10 - 2 0 mmol/L [facility] Calcium [Mass/Vol] 9.0 mg/dL 8.4 - 10. 2 mg/dL [facility] Chloride [Moles/Vol] 104 mmol/L 98 - 10 8 mmol/L [facility] Creatinine [Mass/Vol] 1.60 mg/dL High 0.80 - 1.30 mg/dL [facility] GFR/1.73 sq M.predicted CKD-EPI (S/P/Bld) [Vol rate/Area] 43 Low - PINF [facility] Comment on above: Estimated GFR was ca lculated using the 2020 CKD-EPI creatinine equation. Glucose [Mass/Vol] 158 mg/dL High 65 - 99 mg/dL [facility] HCO3 [Moles/Vol] 26 mmol/L 21 - 32 mmol/L [facility] Interpretation and review of laboratory results Abnormal [facility] Potassium [Moles/Vol] 4.5 mmol/L 3.5 - 5.1 mmol/L [facility] Sodium [Moles/Vol] 136 mmol/L 135 - 145 mmol/L [facility] Urea nitrogen [Mass/Vol] 25 mg/dL 8 - 25 mg/d L [facility] Urea nitrogen/Creatinine [Mass ratio] 15.6 mg/mg 10.0 - 20.0 [facility] has implemented the eGFR calculation approach that does not have a coefficient for race that conforms to the NKF-ASN Task Force Recommendations. [facility] Glucose (Bld) [Mass/Vol]on 03-22-2022 Glucose [Mass/Vol] 198 mg/dL High 65 - 99 mg/dL [facility] Interpretation and review of laboratory results Abnormal [facility] Glucose [Mass/Vol] 91 mg/dL 65 - 99 mg/dL [facility] Interpretation and review of laboratory results Normal [facility] Glucose [Mass/Vol] 207 mg/dL High 65 - 99 mg/dL [facility] Interpretation and review of laboratory results Abnormal [facility] Glucose [Mass/Vol] 137 mg/dL High 65 - 99 mg/dL [facility] Interpretation and review of laboratory results Abnormal [facility] US Kidney - bilateral and Ur inary bladderon 01-19-2023 Left renal cyst but no acute renal finding or hydronephrosis. Bladder not fully distended limiting assessment. Ureteral jets could not be identified. Patient reported urgency to void despite bladder not being distended. Prevoid and postvoid calculated bladder volumes are essentially unchanged, approximately 8 mL. Workstation ID: [id number] [facility] [facility] EXAMINATION: US RENAL AND BLADDER HISTORY: ORDERING SYSTEM PROVIDED HISTORY: AJAY, TECHNOLOGIST PROVIDED HISTORY: Illness/Other Reason for exam: AJAY Cancer History: unk Surgery, RadiationHistory: unk Encounter Type: Subsequent/Follow-up Additional signs and symptoms: none ORDERING SYSTEM PROVIDED DIAGNOSIS CODES: COMPARISON: 01/06/2023 TECHNIQUE: Renal and bladder ultrasound FINDINGS: Right kidney 11 x 6 x 4.5 cm. No hydronephrosis or shadowing stone. Left kidney 10.7 x 6.5 x 5.1 cm. No hydronephrosis or shadowing stone. A 1.4 cm cyst. Bladder is not fully distended likely accounting for wall prominence. Ureteral jets could not be identified. Patient reported some urgency despite the bladder not being distended and the post void images show essentially unchanged bladder volume of 8 mL. Winston Carrizales MD - 01/19/2023 EXAMINATION: US RENAL AND BLADDER HISTORY: ORDERING SYSTEM PROVIDED HISTORY: AJAY, TECHNOLOGIST PROVIDED HISTORY: Illness/Other Reason for exam: AJAY Cancer History: unk Surgery, RadiationHistory: unk Encounter Type: Subsequent/Follow-up Additional signs and symptoms: none ORDERING SYSTEM PROVIDED DIAGNOSIS CODES: COMPARISON: 01/06/2023 TECHNIQUE: Renal and bladder ultrasound FINDINGS: Right kidney 11 x 6 x 4.5 cm. No hydronephrosis or shadowing stone. Left kidney 10.7 x 6.5 x 5.1 cm. No hydronephrosis or shadowing stone. A 1.4 cm cyst. Bladder is not fully distended likely accounting for wall prominence. Ureteral jets could not be identified. Patient reported some urgency despite the bladder not being distended and the post void images show essentially unchanged bladder volume of 8 mL. IMPRESSION: Left renal cyst but no acute renal finding or hydronephrosis. Bladder not fully distended limiting assessment. Ureteral jets could not be identified. Patient reported urgency to void despite bladder not being distended. Prevoid and postvoid calculated bladder volumes are essentially unchanged, approximately 8 mL. Workstation ID: [id number] [facility] Radiology Study observation (narrative) [facility] US Kidney - bilateral and Ur inary bladderOrdered By: Winston Levy on 01-19-2023 [facility] Work Phone: UrinalysisOrdered By: Carolina Robbins on 01-19-2023 Bacteria Auto Ql (U) None Seen None Se en /hpf [facility] Bilirubin Ql (U) Negative Negative [facility] Clarity Refractometry automated (U) Cloudy Abnormal Clear [facility] Color (U) Yellow Colorless, Yellow [facility] Crystals.amorphous Computer assisted (U) [#/Area] Few Abnormal None Seen, Rare /hpf [facility] Epithelial cells.squamous Auto (Urine sed) [#/Area] 3 [facility] Glucose Auto test strip (U) [Mass/Vol] 50 mg/dL Abnormal Negative [facility] Hemoglobin Auto test strip Ql (U) Negative Negative [facility] Hyaline casts Auto (Urine sed) [#/Area] 6-10 Abnormal [facility] Interpretation and review of laboratory results Abnormal [facility] Ketones (U) [Mass/Vol] Trace Abnormal Negat afia mg/dL [facility] Leukocyte esterase Auto test strip Ql (U) Negative Negative [facility] Mucus Auto (Urine sed) [#/Area] Rare None Seen, Rare /lpf [facility] Nitrite Auto test strip Ql (U) Negative Negative [facility] pH (U) 5.0 [pH] 5.0 - 7.0 [facility] Protein (U) [Mass/Vol] 30 mg/dL Abnormal Negative [facility] Comment on above: False positive resul ts may occur in urines with large amounts of hemoglobin, pH greater than 8.0, contrast medium, or disinfectants including ammonium compounds. RBC Auto (Urine sed) [#/Area] 7 High [facility] Specific gravity (U) [Rel density] 1.027 High 1.005 - 1.025 [facility] Transitional cells Computer assisted (U) [#/Area] 1 [facility] Urobilinogen (U) [Mass/Vol] 2.0 mg/dL Abnormal NINF - 2.0 mg/dL [facility] WBC Auto (Urine sed) [#/Area] 12 High [facility] Microscopic examination is performed on all urinalysis samples and only positive findings are reported. The test for blood on the chemical analytic portion of urinalysis may also be positive due to hemoglobinuria and myoglobinuria and if red blood cells are present they are quantified by microscopic examination. [facility] Basic metabolic 2000 panelon 01-18-2023 Anion gap [Moles/Vol] 9 mmol/L Low 10 - 2 0 mmol/L [facility] Calcium [Mass/Vol] 8.8 mg/dL 8.4 - 10. 2 mg/dL [facility] Chloride [Moles/Vol] 105 mmol/L 98 - 10 8 mmol/L [facility] Creatinine [Mass/Vol] 1.45 mg/dL High 0.80 - 1.30 mg/dL [facility] GFR/1.73 sq M.predicted CKD-EPI (S/P/Bld) [Vol rate/Area] 48 Low - PINF [facility] Comment on above: Estimated GFR was ca lculated using the 2020 CKD-EPI creatinine equation. Glucose [Mass/Vol] 134 mg/dL High 65 - 99 mg/dL [facility] HCO3 [Moles/Vol] 27 mmol/L 21 - 32 mmol/L [facility] Interpretation and review of laboratory results Abnormal [facility] Potassium [Moles/Vol] 4.8 mmol/L 3.5 - 5.1 mmol/L [facility] Sodium [Moles/Vol] 136 mmol/L 135 - 145 mmol/L [facility] Urea nitrogen [Mass/Vol] 22 mg/dL 8 - 25 mg/d L [facility] Urea nitrogen/Creatinine [Mass ratio] 15.2 mg/mg 10.0 - 20.0 [facility] has implemented the eGFR calculation approach that does not have a coefficient for race that conforms to the NKF-ASN Task Force Recommendations. [facility] CBC panel Auto (Bld)on 01-18 Erythrocyte distribution width (RBC) [Entitic vol] 13.2 % 11.6 - 14.8 % [facility] Hematocrit (Bld) [Volume fraction] 41.5 % 41.0 - 53.0 % [facility] Hemoglobin (Bld) [Mass/Vol] 13.4 g/dL Low 13.5 - 17.5 g/dL [facility] Interpretation and review of laboratory results Abnormal [facility] MCH (RBC) [Entitic mass] 32.3 pg 26. 0 - 34.0 pg [facility] MCHC (RBC) [Mass/Vol] 32.3 g/dL 31.0 - 37.0 g/dL [facility] MCV (RBC) [Entitic vol] 100.0 fL 80.0 - 100.0 fL [facility] Nucleated RBC (Bld) [#/Vol] 0.00 10*3/uL [facility] Nucleated RBC/100 WBC (Bld) [Ratio] 0.0 % [facility] Platelet mean volume (Bld) [Entitic vol] 9.4 fL 9.4 - 12.4 fL [facility] Platelets (Bld) [#/Vol] 172 10*3/uL [facility] RBC (Bld) [#/Vol] 4.15 10*6/uL Low [facility] WBC (Bld) [#/Vol] 6.08 10*3/uL [facility] Glucose (Bld) [Mass/Vol]on 1 03-21-2022 Glucose [Mass/Vol] 217 mg/dL High 65 - 99 mg/dL [facility] Interpretation and review of laboratory results Abnormal [facility] Glucose [Mass/Vol] 123 mg/dL High 65 - 99 mg/dL [facility] Interpretation and review of laboratory results Abnormal [facility] Glucose [Mass/Vol] 158 mg/dL High 65 - 99 mg/dL [facility] Interpretation and review of laboratory results Abnormal [facility] Glucose [Mass/Vol] 154 mg/dL High 65 - 99 mg/dL [facility] Interpretation and review of laboratory results Abnormal [facility] Bacteria identified Aer cx N om (Unsp spec)Ordered By: Daphne Estrada on 01-17-2023 [facility] Glucose (Bld) [Mass/Vol]on 1 03-20-2022 Glucose [Mass/Vol] 217 mg/dL High 65 - 99 mg/dL [facility] Interpretation and review of laboratory results Abnormal [facility] Glucose [Mass/Vol] 139 mg/dL High 65 - 99 mg/dL [facility] Interpretation and review of laboratory results Abnormal [facility] Glucose [Mass/Vol] 131 mg/dL High 65 - 99 mg/dL [facility] Interpretation and review of laboratory results Abnormal [facility] Glucose [Mass/Vol] 143 mg/dL High 65 - 99 mg/dL [facility] Interpretation and review of laboratory results Abnormal [facility] Urine Aerobic CultureOrdered By: Daphne Estrada on 01-17-2023 Bacteria identified Aer cx Nom (Unsp spec) < 10,000 CFU/mL of normal urogenital microbiota [facility] CBC panel Auto (Bld)on 01-16 Erythrocyte distribution width (RBC) [Entitic vol] 13.1 % 11.6 - 14.8 % [facility] Hematocrit (Bld) [Volume fraction] 40.5 % Low 41.0 - 53.0 % [facility] Hemoglobin (Bld) [Mass/Vol] 13.1 g/dL Low 13.5 - 17.5 g/dL [facility] Interpretation and review of laboratory results Abnormal [facility] MCH (RBC) [Entitic mass] 32.1 pg 26. 0 - 34.0 pg [facility] MCHC (RBC) [Mass/Vol] 32.3 g/dL 31.0 - 37.0 g/dL [facility] MCV (RBC) [Entitic vol] 99.3 fL 80.0 - 100.0 fL [facility] Nucleated RBC (Bld) [#/Vol] 0.00 10*3/uL [facility] Nucleated RBC/100 WBC (Bld) [Ratio] 0.0 % [facility] Platelet mean volume (Bld) [Entitic vol] 9.7 fL 9.4 - 12.4 fL [facility] Platelets (Bld) [#/Vol] 184 10*3/uL [facility] RBC (Bld) [#/Vol] 4.08 10*6/uL Low [facility] ealth WBC (Bld) [#/Vol] 6.83 10*3/uL [facility] Comprehensive metabolic 2000 panelOrdered By: Lulu Bennett on 01-16-2023 Albumin [Mass/Vol] 3.2 g/dL 3.2 - 5.2 g/dL [facility] ALP [Catalytic activity/Vol] 68 U/L 40 - 150 U/L [facility] ALT [Catalytic activity/Vol] 27 U/L 14 - 65 U/L [facility] Anion gap [Moles/Vol] 7 mmol/L Low 10 - 2 0 mmol/L [facility] AST [Catalytic activity/Vol] 18 U/L 0-50 U/L [facility] Bilirubin [Mass/Vol] 0.7 mg/dL 0.0 - 1 .3 mg/dL [facility] Calcium [Mass/Vol] 8.6 mg/dL 8.4 - 10. 2 mg/dL [facility] Chloride [Moles/Vol] 107 mmol/L 98 - 10 8 mmol/L [facility] Creatinine [Mass/Vol] 1.42 mg/dL High 0.80 - 1.30 mg/dL [facility] GFR/1.73 sq M.predicted CKD-EPI (S/P/Bld) [Vol rate/Area] 50 Low - PINF [facility] Comment on above: Estimated GFR was ca lculated using the 2020 CKD-EPI creatinine equation. Glucose [Mass/Vol] 135 mg/dL High 65 - 99 mg/dL [facility] HCO3 [Moles/Vol] 29 mmol/L 21 - 32 mmol/L [facility] Interpretation and review of laboratory results Abnormal [facility] Potassium [Moles/Vol] 5.0 mmol/L 3.5 - 5.1 mmol/L [facility] Protein [Mass/Vol] 6.4 g/dL 6.0 - 8.0 g/dL [facility] Sodium [Moles/Vol] 138 mmol/L 135 - 145 mmol/L [facility] Urea nitrogen [Mass/Vol] 23 mg/dL 8 - 25 mg/d L [facility] Urea nitrogen/Creatinine [Mass ratio] 16.2 mg/mg 10.0 - 20.0 [facility] has implemented the eGFR calculation approach that does not have a coefficient for race that conforms to the NKF-ASN Task Force Recommendations. [facility] Glucose (Bld) [Mass/Vol]on 1 03-19-2022 Glucose [Mass/Vol] 158 mg/dL High 65 - 99 mg/dL [facility] Interpretation and review of laboratory results Abnormal [facility] Glucose [Mass/Vol] 120 mg/dL High 65 - 99 mg/dL [facility] Interpretation and review of laboratory results Abnormal [facility] Glucose [Mass/Vol] 133 mg/dL High 65 - 99 mg/dL [facility] Interpretation and review of laboratory results Abnormal [facility] Glucose [Mass/Vol] 167 mg/dL High 65 - 99 mg/dL [facility] Interpretation and review of laboratory results Abnormal [facility] Vitamin D, Total, 25-OHon 25-hydroxyvitamin D [Mass/Vol] 42 ng/mL 30 - 100 ng/mL [facility] Comment on above: Vitamin D status: Deficiency: <20 ng/mL Insufficiency: 20-30 ng/mL Sufficiency: 30-100 ng/mL Toxicity: >100 ng/mL Please note that Fluorescein which is used in angiography has been shown to falsely elevate the results of Vitamin D with our current assay. Evidence suggests that patients undergoing fluorescein dye angiography can retain small amounts of fluorescein in the body for up to 48 to 72 hours post-treatment. In the cases of patients with renal insufficiency, retention could be much longer. Samples should be resubmitted post fluorescein clearance to ensure there is no interference with the Vitamin D test result. Interpretation and review of laboratory results Normal [facility] Assay performed rupali Milligan's chemiluminescence methodology. [facility] Basic metabolic 2000 panelon 01-15-2023 Anion gap [Moles/Vol] 13 mmol/L 10 - 2 0 mmol/L [facility] Calcium [Mass/Vol] 8.8 mg/dL 8.4 - 10. 2 mg/dL [facility] Chloride [Moles/Vol] 102 mmol/L 98 - 10 8 mmol/L [facility] Creatinine [Mass/Vol] 1.52 mg/dL High 0.80 - 1.30 mg/dL [facility] GFR/1.73 sq M.predicted CKD-EPI (S/P/Bld) [Vol rate/Area] 46 Low - PINF [facility] Comment on above: Estimated GFR was ca lculated using the 2020 CKD-EPI creatinine equation. Glucose [Mass/Vol] 143 mg/dL High 65 - 99 mg/dL [facility] HCO3 [Moles/Vol] 27 mmol/L 21 - 32 mmol/L [facility] Interpretation and review of laboratory results Abnormal [facility] Potassium [Moles/Vol] 4.8 mmol/L 3.5 - 5.1 mmol/L [facility] Sodium [Moles/Vol] 137 mmol/L 135 - 145 mmol/L [facility] Urea nitrogen [Mass/Vol] 33 mg/dL High 8 - 25 mg/d L [facility] Urea nitrogen/Creatinine [Mass ratio] 21.7 mg/mg High 10.0 - 20.0 [facility] has implemented the eGFR calculation approach that does not have a coefficient for race that conforms to the NKF-ASN Task Force Recommendations. [facility] Glucose (Bld) [Mass/Vol]on 03-18-2022 Glucose [Mass/Vol] 129 mg/dL High 65 - 99 mg/dL [facility] Interpretation and review of laboratory results Abnormal [facility] Glucose [Mass/Vol] 107 mg/dL High 65 - 99 mg/dL [facility] Interpretation and review of laboratory results Abnormal [facility] Glucose [Mass/Vol] 206 mg/dL High 65 - 99 mg/dL [facility] Interpretation and review of laboratory results Abnormal [facility] UrinalysisOrdered By: Cece santos on 01-15-2023 Bacteria Auto Ql (U) None Seen None Se en /hpf [facility] Bilirubin Ql (U) Negative Negative [facility] Clarity Refractometry automated (U) Clear Clear [facility] Color (U) Colorless Colorless, Yellow [facility] Epithelial cells.squamous Auto (Urine sed) [#/Area] [facility] Glucose Auto test strip (U) [Mass/Vol] Negative Negative mg/dL [facility] Hemoglobin Auto test strip Ql (U) Negative Negative [facility] Interpretation and review of laboratory results Normal [facility] Ketones (U) [Mass/Vol] Negative Negat afia mg/dL [facility] Leukocyte esterase Auto test strip Ql (U) Negative Negative [facility] Nitrite Auto test strip Ql (U) Negative Negative [facility] pH (U) 6.5 [pH] 5.0 - 7.0 [facility] Protein (U) [Mass/Vol] Negative Negat afia mg/dL [facility] RBC Auto (Urine sed) [#/Area] 1 [facility] Specific gravity (U) [Rel density] 1.010 1.005 - 1.025 [facility] Urobilinogen (U) [Mass/Vol] mg/dL NINF - 2.0 mg/dL [facility] WBC Auto (Urine sed) [#/Area] [facility] Microscopic examination is performed on all urinalysis samples and only positive findings are reported. The test for blood on the chemical analytic portion of urinalysis may also be positive due to hemoglobinuria and myoglobinuria and if red blood cells are present they are quantified by microscopic examination. [facility] Basic metabolic 1998 panelon 01-14-2023 Anion gap [Moles/Vol] 16 mmol/L 10 - 2 0 mmol/L [facility] Chloride [Moles/Vol] 101 mmol/L 98 - 10 8 mmol/L [facility] Creatinine [Mass/Vol] 1.60 mg/dL High 0.80 - 1.30 mg/dL [facility] GFR/1.73 sq M.predicted CKD-EPI (S/P/Bld) [Vol rate/Area] 43 Low - PINF [facility] Comment on above: Estimated GFR was ca lculated using the 2020 CKD-EPI creatinine equation. Glucose [Mass/Vol] 134 mg/dL High 65 - 99 mg/dL [facility] HCO3 [Moles/Vol] 27 mmol/L 21 - 32 mmol/L [facility] Interpretation and review of laboratory results Abnormal [facility] Potassium [Moles/Vol] 4.7 mmol/L 3.5 - 5.1 mmol/L [facility] Sodium [Moles/Vol] 139 mmol/L 135 - 145 mmol/L [facility] Urea nitrogen [Mass/Vol] 32 mg/dL High 8 - 25 mg/d L [facility] Urea nitrogen/Creatinine [Mass ratio] 20.0 mg/mg 10.0 - 20.0 [facility] has implemented the eGFR calculation approach that does not have a coefficient for race that conforms to the NKF-ASN Task Force Recommendations. [facility] Glucose (Bld) [Mass/Vol]on 03-16-2022 Glucose [Mass/Vol] 154 mg/dL High 65 - 99 mg/dL [facility] Interpretation and review of laboratory results Abnormal [facility] Glucose [Mass/Vol] 166 mg/dL High 65 - 99 mg/dL [facility] Interpretation and review of laboratory results Abnormal [facility] Glucose [Mass/Vol] 129 mg/dL High 65 - 99 mg/dL [facility] Interpretation and review of laboratory results Abnormal [facility] Glucose [Mass/Vol] 145 mg/dL High 65 - 99 mg/dL [facility] Interpretation and review of laboratory results Abnormal [facility] Basic metabolic 1998 panelon 01-13-2023 Anion gap [Moles/Vol] 16 mmol/L 10 - 2 0 mmol/L [facility] Chloride [Moles/Vol] 98 mmol/L 98 - 10 8 mmol/L [facility] Creatinine [Mass/Vol] 1.39 mg/dL High 0.80 - 1.30 mg/dL [facility] GFR/1.73 sq M.predicted CKD-EPI (S/P/Bld) [Vol rate/Area] 51 Low - PINF [facility] Comment on above: Estimated GFR was ca lculated using the 2020 CKD-EPI creatinine equation. Glucose [Mass/Vol] 179 mg/dL High 65 - 99 mg/dL [facility] HCO3 [Moles/Vol] 26 mmol/L 21 - 32 mmol/L [facility] Interpretation and review of laboratory results Abnormal [facility] Potassium [Moles/Vol] 5.0 mmol/L 3.5 - 5.1 mmol/L [facility] Sodium [Moles/Vol] 135 mmol/L 135 - 145 mmol/L [facility] Urea nitrogen [Mass/Vol] 25 mg/dL 8 - 25 mg/d L [facility] Urea nitrogen/Creatinine [Mass ratio] 18.0 mg/mg 10.0 - 20.0 [facility] has implemented the eGFR calculation approach that does not have a coefficient for race that conforms to the NKF-ASN Task Force Recommendations. [facility] Glucose (Bld) [Mass/Vol]on 03-15-2022 Glucose [Mass/Vol] 177 mg/dL High 65 - 99 mg/dL [facility] Interpretation and review of laboratory results Abnormal [facility] Glucose [Mass/Vol] 166 mg/dL High 65 - 99 mg/dL [facility] Interpretation and review of laboratory results Abnormal [facility] Glucose [Mass/Vol] 129 mg/dL High 65 - 99 mg/dL [facility] Interpretation and review of laboratory results Abnormal [facility] Glucose [Mass/Vol] 150 mg/dL High 65 - 99 mg/dL [facility] Interpretation and review of laboratory results Abnormal [facility] Magnesium Levelon 01-13-2023 Magnesium [Mass/Vol] 2.4 mg/dL 1.6 - 2 .4 mg/dL [facility] Magnesium [Mass/Vol]on 01-13 Interpretation and review of laboratory results Normal [facility] Glucose (Bld) [Mass/Vol]on 03-14-2022 Glucose [Mass/Vol] 140 mg/dL High 65 - 99 mg/dL [facility] Interpretation and review of laboratory results Abnormal [facility] Glucose [Mass/Vol] 124 mg/dL High 65 - 99 mg/dL [facility] Interpretation and review of laboratory results Abnormal [facility] Glucose [Mass/Vol] 142 mg/dL High 65 - 99 mg/dL [facility] Interpretation and review of laboratory results Abnormal [facility] Glucose [Mass/Vol] 131 mg/dL High 65 - 99 mg/dL [facility] Interpretation and review of laboratory results Abnormal [facility] Glucose [Mass/Vol] 121 mg/dL High 65 - 99 mg/dL [facility] Interpretation and review of laboratory results Abnormal [facility] Basic metabolic 1998 panelOr dered By: Rosa Elena Casey on 01-11-2023 Anion gap [Moles/Vol] 16 mmol/L 10 - 2 0 mmol/L [facility] Chloride [Moles/Vol] 99 mmol/L 98 - 10 8 mmol/L [facility] Creatinine [Mass/Vol] 1.06 mg/dL 0.80 - 1.30 mg/dL [facility] GFR/1.73 sq M.predicted CKD-EPI (S/P/Bld) [Vol rate/Area] 71 - PINF [facility] Comment on above: Estimated GFR was ca lculated using the 2020 CKD-EPI creatinine equation. Glucose [Mass/Vol] 163 mg/dL High 65 - 99 mg/dL [facility] HCO3 [Moles/Vol] 26 mmol/L 21 - 32 mmol/L [facility] Interpretation and review of laboratory results Abnormal [facility] Potassium [Moles/Vol] 5.0 mmol/L 3.5 - 5.1 mmol/L [facility] Comment on above: Slightly Hemolyzed Sodium [Moles/Vol] 136 mmol/L 135 - 145 mmol/L [facility] Urea nitrogen [Mass/Vol] 19 mg/dL 8 - 25 mg/d L [facility] Urea nitrogen/Creatinine [Mass ratio] 17.9 mg/mg 10.0 - 20.0 [facility] has implemented the eGFR calculation approach that does not have a coefficient for race that conforms to the NKF-ASN Task Force Recommendations. [facility] Glucose (Bld) [Mass/Vol]on 03-13-2022 Glucose [Mass/Vol] 147 mg/dL High 65 - 99 mg/dL [facility] Interpretation and review of laboratory results Abnormal [facility] Glucose [Mass/Vol] 145 mg/dL High 65 - 99 mg/dL [facility] Interpretation and review of laboratory results Abnormal [facility] Glucose [Mass/Vol] 126 mg/dL High 65 - 99 mg/dL [facility] Interpretation and review of laboratory results Abnormal [facility] Glucose [Mass/Vol] 190 mg/dL High 65 - 99 mg/dL [facility] Interpretation and review of laboratory results Abnormal [facility] Magnesium Levelon 01-11-2023 Magnesium [Mass/Vol] 2.3 mg/dL 1.6 - 2 .4 mg/dL [facility] Magnesium [Mass/Vol]on 01-11 Interpretation and review of laboratory results Normal [facility] Glucose (Bld) [Mass/Vol]on 03-12-2022 Glucose [Mass/Vol] 161 mg/dL High 65 - 99 mg/dL [facility] Interpretation and review of laboratory results Abnormal [facility] Glucose [Mass/Vol] 136 mg/dL High 65 - 99 mg/dL [facility] Interpretation and review of laboratory results Abnormal [facility] Glucose [Mass/Vol] 177 mg/dL High 65 - 99 mg/dL [facility] Interpretation and review of laboratory results Abnormal [facility] Glucose [Mass/Vol] 122 mg/dL High 65 - 99 mg/dL [facility] Interpretation and review of laboratory results Abnormal [facility] Basic metabolic 2000 panelOr dered By: Meka May on 01-09-2023 Anion gap [Moles/Vol] 11 mmol/L 10 - 2 0 mmol/L [facility] Calcium [Mass/Vol] 9.0 mg/dL 8.4 - 10. 2 mg/dL [facility] Chloride [Moles/Vol] 104 mmol/L 98 - 10 8 mmol/L [facility] Creatinine [Mass/Vol] 1.02 mg/dL 0.80 - 1.30 mg/dL [facility] GFR/1.73 sq M.predicted CKD-EPI (S/P/Bld) [Vol rate/Area] 74 - PINF [facility] Comment on above: Estimated GFR was ca lculated using the 2020 CKD-EPI creatinine equation. Glucose [Mass/Vol] 129 mg/dL High 65 - 99 mg/dL [facility] HCO3 [Moles/Vol] 28 mmol/L 21 - 32 mmol/L [facility] Interpretation and review of laboratory results Abnormal [facility] Potassium [Moles/Vol] 4.4 mmol/L 3.5 - 5.1 mmol/L [facility] Comment on above: Slightly Hemolyzed Sodium [Moles/Vol] 139 mmol/L 135 - 145 mmol/L [facility] Urea nitrogen [Mass/Vol] 20 mg/dL 8 - 25 mg/d L [facility] Urea nitrogen/Creatinine [Mass ratio] 19.6 mg/mg 10.0 - 20.0 [facility] has implemented the eGFR calculation approach that does not have a coefficient for race that conforms to the NKF-ASN Task Force Recommendations. [facility] CBC panel Auto (Bld)on 01-09 Erythrocyte distribution width (RBC) [Entitic vol] 12.7 % 11.6 - 14.8 % [facility] Hematocrit (Bld) [Volume fraction] 36.2 % Low 41.0 - 53.0 % [facility] Hemoglobin (Bld) [Mass/Vol] 12.2 g/dL Low 13.5 - 17.5 g/dL [facility] Interpretation and review of laboratory results Abnormal [facility] MCH (RBC) [Entitic mass] 31.1 pg 26. 0 - 34.0 pg [facility] MCHC (RBC) [Mass/Vol] 33.7 g/dL 31.0 - 37.0 g/dL [facility] MCV (RBC) [Entitic vol] 92.3 fL 80.0 - 100.0 fL [facility] Nucleated RBC (Bld) [#/Vol] 0.00 10*3/uL [facility] Nucleated RBC/100 WBC (Bld) [Ratio] 0.0 % [facility] Platelet mean volume (Bld) [Entitic vol] 10.2 fL 9.4 - 12.4 fL [facility] Platelets (Bld) [#/Vol] 134 10*3/uL Low [facility] RBC (Bld) [#/Vol] 3.92 10*6/uL Low [facility] WBC (Bld) [#/Vol] 7.49 10*3/uL [facility] Glucose (Bld) [Mass/Vol]on 03-11-2022 Glucose [Mass/Vol] 164 mg/dL High 65 - 99 mg/dL [facility] Interpretation and review of laboratory results Abnormal [facility] Glucose [Mass/Vol] 130 mg/dL High 65 - 99 mg/dL [facility] Interpretation and review of laboratory results Abnormal [facility] Glucose [Mass/Vol] 147 mg/dL High 65 - 99 mg/dL [facility] Interpretation and review of laboratory results Abnormal [facility] Glucose [Mass/Vol] 157 mg/dL High 65 - 99 mg/dL [facility] Interpretation and review of laboratory results Abnormal [facility] Basic metabolic 2000 panelon 01-08-2023 Anion gap [Moles/Vol] 9 mmol/L Low 10 - 2 0 mmol/L [facility] Calcium [Mass/Vol] 8.5 mg/dL 8.4 - 10. 2 mg/dL [facility] Chloride [Moles/Vol] 105 mmol/L 98 - 10 8 mmol/L [facility] Creatinine [Mass/Vol] 0.99 mg/dL 0.80 - 1.30 mg/dL [facility] GFR/1.73 sq M.predicted CKD-EPI (S/P/Bld) [Vol rate/Area] 77 - PINF [facility] Comment on above: Estimated GFR was ca lculated using the 2020 CKD-EPI creatinine equation. Glucose [Mass/Vol] 121 mg/dL High 65 - 99 mg/dL [facility] HCO3 [Moles/Vol] 28 mmol/L 21 - 32 mmol/L [facility] Interpretation and review of laboratory results Abnormal [facility] Potassium [Moles/Vol] 4.2 mmol/L 3.5 - 5.1 mmol/L [facility] Sodium [Moles/Vol] 138 mmol/L 135 - 145 mmol/L [facility] Urea nitrogen [Mass/Vol] 17 mg/dL 8 - 25 mg/d L [facility] Urea nitrogen/Creatinine [Mass ratio] 17.2 mg/mg 10.0 - 20.0 [facility] has implemented the eGFR calculation approach that does not have a coefficient for race that conforms to the NKF-ASN Task Force Recommendations. [facility] CBC panel Auto (Bld)on 01-08 Erythrocyte distribution width (RBC) [Entitic vol] 12.4 % 11.6 - 14.8 % [facility] Hematocrit (Bld) [Volume fraction] 35.7 % Low 41.0 - 53.0 % [facility] Hemoglobin (Bld) [Mass/Vol] 11.7 g/dL Low 13.5 - 17.5 g/dL [facility] Interpretation and review of laboratory results Abnormal [facility] MCH (RBC) [Entitic mass] 31.0 pg 26. 0 - 34.0 pg [facility] MCHC (RBC) [Mass/Vol] 32.8 g/dL 31.0 - 37.0 g/dL [facility] MCV (RBC) [Entitic vol] 94.7 fL 80.0 - 100.0 fL [facility] Nucleated RBC (Bld) [#/Vol] 0.00 10*3/uL [facility] Nucleated RBC/100 WBC (Bld) [Ratio] 0.0 % [facility] Platelet mean volume (Bld) [Entitic vol] 10.6 fL 9.4 - 12.4 fL [facility] Platelets (Bld) [#/Vol] 104 10*3/uL Low [facility] RBC (Bld) [#/Vol] 3.77 10*6/uL Low [facility] WBC (Bld) [#/Vol] 6.38 10*3/uL [facility] Glucose (Bld) [Mass/Vol]on 03-10-2022 Glucose [Mass/Vol] 125 mg/dL High 65 - 99 mg/dL [facility] Interpretation and review of laboratory results Abnormal [facility] Glucose [Mass/Vol] 153 mg/dL High 65 - 99 mg/dL [facility] Interpretation and review of laboratory results Abnormal [facility] Glucose [Mass/Vol] 121 mg/dL High 65 - 99 mg/dL [facility] Interpretation and review of laboratory results Abnormal [facility] Glucose [Mass/Vol] 133 mg/dL High 65 - 99 mg/dL [facility] Interpretation and review of laboratory results Abnormal [facility] Glucose [Mass/Vol] 131 mg/dL High 65 - 99 mg/dL [facility] Interpretation and review of laboratory results Abnormal [facility] Basic metabolic 2000 panelon 01-07-2023 Anion gap [Moles/Vol] 11 mmol/L 10 - 2 0 mmol/L [facility] Calcium [Mass/Vol] 8.6 mg/dL 8.4 - 10. 2 mg/dL [facility] Chloride [Moles/Vol] 110 mmol/L High 98 - 10 8 mmol/L [facility] Creatinine [Mass/Vol] 1.08 mg/dL 0.80 - 1.30 mg/dL [facility] GFR/1.73 sq M.predicted CKD-EPI (S/P/Bld) [Vol rate/Area] 69 - PINF [facility] Comment on above: Estimated GFR was ca lculated using the 2020 CKD-EPI creatinine equation. Glucose [Mass/Vol] 118 mg/dL High 65 - 99 mg/dL [facility] HCO3 [Moles/Vol] 26 mmol/L 21 - 32 mmol/L [facility] Interpretation and review of laboratory results Abnormal [facility] Potassium [Moles/Vol] 4.7 mmol/L 3.5 - 5.1 mmol/L [facility] Sodium [Moles/Vol] 142 mmol/L 135 - 145 mmol/L [facility] Urea nitrogen [Mass/Vol] 17 mg/dL 8 - 25 mg/d L [facility] Urea nitrogen/Creatinine [Mass ratio] 15.7 mg/mg 10.0 - 20.0 [facility] has implemented the eGFR calculation approach that does not have a coefficient for race that conforms to the NKF-ASN Task Force Recommendations. [facility] CBC panel Auto (Bld)on 01-07 Erythrocyte distribution width (RBC) [Entitic vol] 12.8 % 11.6 - 14.8 % [facility] Hematocrit (Bld) [Volume fraction] 35.3 % Low 41.0 - 53.0 % [facility] Hemoglobin (Bld) [Mass/Vol] 12.1 g/dL Low 13.5 - 17.5 g/dL [facility] Interpretation and review of laboratory results Abnormal [facility] MCH (RBC) [Entitic mass] 32.2 pg 26. 0 - 34.0 pg [facility] MCHC (RBC) [Mass/Vol] 34.3 g/dL 31.0 - 37.0 g/dL [facility] MCV (RBC) [Entitic vol] 93.9 fL 80.0 - 100.0 fL [facility] Nucleated RBC (Bld) [#/Vol] 0.00 10*3/uL [facility] Nucleated RBC/100 WBC (Bld) [Ratio] 0.0 % [facility] Platelet mean volume (Bld) [Entitic vol] 10.4 fL 9.4 - 12.4 fL [facility] Platelets (Bld) [#/Vol] 91 10*3/uL [facility] RBC (Bld) [#/Vol] 3.76 10*6/uL Low [facility] WBC (Bld) [#/Vol] 6.62 10*3/uL [facility] CT HEAD OR BRAIN WITHOUT CON TRASTon 01-07-2023 CT HEAD OR BRAIN WITHOUT CONTRAST EXAMINATION: CT HEAD OR BRAIN WITHOUT CONTRAST HISTORY: F/U stroke, ? petechial hemorrhage Injury/Trauma or Illness?:Illness/Othe r How long have you had these symptoms (acute/chronic)?:Acut e Reason for exam?:F/U stroke, ? petechial hemorrhage Type of Exam?:Subsequent/Foll ow-up Additional signs and symptoms?:F/U stroke, ? petechial hemorrhage I63.9 Acute ischemic stroke (HCC)Injury/Trauma or Illness?:Illness/Othe r How long have you had these symptoms (acute/chronic)?:Acut eF/U stroke, ? petechial hemorrhage COMPARISON: Head CT dated 01/06/2023 at 8:54 p.m.. CONTRAST: None. TECHNIQUE CT Head with axial, coronal and sagittal reformats. Dose reduction techniques were achieved by using automated exposure control and/or adjustment of mA and/or kV according to patient size and/or use of iterative reconstruction technique. FINDINGS: FINDINGS: POSTOPERATIVE CHANGES: None. BRAIN PARENCHYMA: There is low density now appreciated consistent with an evolving infarction in the region of the posterior right frontal lobe and associated operculum. There is subtle hyperdensity within the cortex consistent with petechial hemorrhage. This is consistent with laminar necrosis. No midline shift or herniation is seen. There is patchy low-density in the white matter consistent with small vessel ischemic change in old lacunar infarctions are present in the centrum semiovale bilaterally. VENTRICLES/EXTRA-AXIA L SPACES: Ventricles and extraventricular spaces are within normal limits for patient's age. VESSELS: No hyperdense intraluminal thrombus. Vascular SINUSES/MASTOIDS:Thic kening with cyst or polyp formation in the base of the left maxillary sinus. Erika bullosa bilaterally. S-shaped nasal septal deviation. Mastoids and middle ears are clear. MSK: No displaced or depressed calvarial fracture. OTHER: IMPRESSION: 1. Continued evolution of the area of infarction in the right posterior frontal and temporal lobe involving the operculum with findings consistent with petechial hemorrhage as noted on the prior examination consistent with laminar necrosis. A telephone call regarding the findings in the study was made to and acknowledged by Esha, the nurse practitioner, in the, in the [facility] at 6:20 a.m. on 01/07/2023. Workstation ID: [id number] Dictated by: SALAS GOLDSTEIN on WedJan 07, 2023 6:25:31 AM EST Transcribed by: SALAS GOLDSTEIN on WedJan 07, 2023 6:25:31 AM EST Finalized by: SALAS GOLDSTEIN on WedJan 07, 2023 6:25:31 AM EST Normal [facility] Comment on above: Order Comment: Injur y/Trauma or Illness?:Illness/Other How long have you had these symptoms (acute/chronic)?:Acute Reason for exam?:F/U stroke, ? petechial hemorrhage Type of Exam?:Subsequent/Follow-up Additional signs and symptoms?:F/U stroke, ? petechial hemorrhage CT Head WO contraston 2022 1. Continued evolution of the area of infarction in the right posterior frontal and temporal lobe involving the operculum with findings consistent with petechial hemorrhage as noted on the prior examination consistent with laminar necrosis. A telephone call regarding the findings in the study was made to and acknowledged by Esha the nurse practitioner, in the, in the [facility] at 6:20 a.m. on 01/07/2023. Workstation ID: [id number] [facility] EXAMINATION: CT HEAD OR BRAIN WITHOUT CONTRAST HISTORY: F/U stroke, ? petechial hemorrhage Injury/Trauma or Illness?:Illness/Othe r How long have you had these symptoms (acute/chronic)?:Acut e Reason for exam?:F/U stroke, ? petechial hemorrhage Type of Exam?:Subsequent/Foll ow-up Additional signs and symptoms?:F/U stroke, ? petechial hemorrhage I63.9 Acute ischemic stroke (HCC)Injury/Trauma or Illness?:Illness/Othe r How long have you had these symptoms (acute/chronic)?:Acut eF/U stroke, ? petechial hemorrhage COMPARISON: Head CT dated 01/06/2023 at 8:54 p.m.. CONTRAST: None. TECHNIQUE CT Head with axial, coronal and sagittal reformats. Dose reduction techniques were achieved by using automated exposure control and/or adjustment of mA and/or kV according to patient size and/or use of iterative reconstruction technique. FINDINGS: FINDINGS: POSTOPERATIVE CHANGES: None. BRAIN PARENCHYMA: There is low density now appreciated consistent with an evolving infarction in the region of the posterior right frontal lobe and associated operculum. There is subtle hyperdensity within the cortex consistent with petechial hemorrhage. This is consistent with laminar necrosis. No midline shift or herniation is seen. There is patchy low-density in the white matter consistent with small vessel ischemic change in old lacunar infarctions are present in the centrum semiovale bilaterally. VENTRICLES/EXTRA-AXIA L SPACES: Ventricles and extraventricular spaces are within normal limits for patient's age. VESSELS: No hyperdense intraluminal thrombus. Vascular SINUSES/MASTOIDS:Thic kening with cyst or polyp formation in the base of the left maxillary sinus. Erika bullosa bilaterally. S-shaped nasal septal deviation. Mastoids and middle ears are clear. MSK: No displaced or depressed calvarial fracture. OTHER: [facility] Salas Goldstein MD - 01/07/2023 EXAMINATION: CT HEAD OR BRAIN WITHOUT CONTRAST HISTORY: F/U stroke, ? petechial hemorrhage Injury/Trauma or Illness?:Illness/Othe r How long have you had these symptoms (acute/chronic)?:Acut e Reason for exam?:F/U stroke, ? petechial hemorrhage Type of Exam?:Subsequent/Foll ow-up Additional signs and symptoms?:F/U stroke, ? petechial hemorrhage I63.9 Acute ischemic stroke (HCC)Injury/Trauma or Illness?:Illness/Othe r How long have you had these symptoms (acute/chronic)?:Acut eF/U stroke, ? petechial hemorrhage COMPARISON: Head CT dated 01/06/2023 at 8:54 p.m.. CONTRAST: None. TECHNIQUE CT Head with axial, coronal and sagittal reformats. Dose reduction techniques were achieved by using automated exposure control and/or adjustment of mA and/or kV according to patient size and/or use of iterative reconstruction technique. FINDINGS: FINDINGS: POSTOPERATIVE CHANGES: None. BRAIN PARENCHYMA: There is low density now appreciated consistent with an evolving infarction in the region of the posterior right frontal lobe and associated operculum. There is subtle hyperdensity within the cortex consistent with petechial hemorrhage. This is consistent with laminar necrosis. No midline shift or herniation is seen. There is patchy low-density in the white matter consistent with small vessel ischemic change in old lacunar infarctions are present in the centrum semiovale bilaterally. VENTRICLES/EXTRA-AXIA L SPACES: Ventricles and extraventricular spaces are within normal limits for patient's age. VESSELS: No hyperdense intraluminal thrombus. Vascular SINUSES/MASTOIDS:Thic kening with cyst or polyp formation in the base of the left maxillary sinus. Erika bullosa bilaterally. S-shaped nasal septal deviation. Mastoids and middle ears are clear. MSK: No displaced or depressed calvarial fracture. OTHER: IMPRESSION: 1. Continued evolution of the area of infarction in the right posterior frontal and temporal lobe involving the operculum with findings consistent with petechial hemorrhage as noted on the prior examination consistent with laminar necrosis. A telephone call regarding the findings in the study was made to and acknowledged by Esha, the nurse practitioner, in the, in the [facility] at 6:20 a.m. on 01/07/2023. Workstation ID: [id number] [facility] Radiology Study observation (narrative) [facility] Glucose (Bld) [Mass/Vol]on 03-09-2022 Glucose [Mass/Vol] 123 mg/dL High 65 - 99 mg/dL [facility] Interpretation and review of laboratory results Abnormal [facility] Glucose [Mass/Vol] 185 mg/dL High 65 - 99 mg/dL [facility] Interpretation and review of laboratory results Abnormal [facility] Glucose [Mass/Vol] 125 mg/dL High 65 - 99 mg/dL [facility] Interpretation and review of laboratory results Abnormal [facility] Glucose [Mass/Vol] 163 mg/dL High 65 - 99 mg/dL [facility] Interpretation and review of laboratory results Abnormal [facility] Glucose [Mass/Vol] 121 mg/dL High 65 - 99 mg/dL [facility] Interpretation and review of laboratory results Abnormal [facility] Glucose [Mass/Vol] 114 mg/dL High 65 - 99 mg/dL [facility] Interpretation and review of laboratory results Abnormal [facility] Magnesium Levelon 01-07-2023 Magnesium [Mass/Vol] 2.5 mg/dL High 1.6 - 2 .4 mg/dL [facility] Magnesium [Mass/Vol]on 01-07 Interpretation and review of laboratory results Abnormal [facility] Phosphate [Mass/Vol]on 01-07 Interpretation and review of laboratory results Normal [facility] Phosphoruson 01-07-2023 Phosphate [Mass/Vol] 3.5 mg/dL 2.3 - 3 .7 mg/dL [facility] CT ANGIOGRAM BRAIN WITH PERF USIONon 01-06-2023 CT ANGIOGRAM BRAIN WITH PERFUSION EXAMINATION: CT ANGIOGRAM BRAIN WITH PERFUSION HISTORY: r mca syndrome Injury/Trauma or Illness?:Illness/Othe r How long have you had these symptoms (acute/chronic)?:Acut e Reason for exam?:r mca syndrome Type of Exam?:Initial Additional signs and symptoms?:r mca syndrome I63.9 Acute ischemic stroke (HCC)Injury/Trauma or Illness?:Illness/Othe r How long have you had these symptoms (acute/chronic)?:Acut er mca syndrome COMPARISON: Head CT and CT angiogram performed at [facility] dent dated 01/06/2023 at 2:[address] dated 01/06/2023 at 4:39 a.m.. TECHNIQUE: CT angiogram of the head was performed. Coronal, sagittal and 3-D reformats were created and reviewed. Dose reduction techniques were achieved by using automated exposure control and/or adjustment of mA and/or kV according to patient size and/or use of iterative reconstruction technique CONTRAST: Isovue 370 FINDINGS: BRAIN: Perfusion images demonstrate 0 mL volume of hypoperfusion with T-max greater than 6 seconds and 0 mL volume of core infarction with cerebral of flow less than 30%. ANTERIOR CIRCULATION:The intra petrous, intra cavernous, and supraclinoid ICA are patent. LILI patent bilaterally. MCA patent bilaterally. No large vessel occlusion or thrombus. No aneurysm. Distal distributions now appear symmetric. POSTERIOR CIRCULATION: Dominant right V4 segment demonstrates calcific plaque without flow-limiting stenosis. 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 No distal V4 segment is seen. This is hypoplastic or occluded. Basilar artery is patent. Basilar tip is patent. SCA and [employer] patent. Distal [employer] distributions are symmetric. 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 This is better visualized as compared to the prior study. OTHER: No pathologic enhancing lesions are seen. IMPRESSION: 1. Improvement in the appearance of the intracranial vessels. Previously noted abnormality in the M2 segment of the right MCA is no longer visualized with patent appearance of the MCA bilaterally. Distal distributions appear symmetric. 2. Better visualization of the posterior circulation. Dominant V4 on the right with calcific plaque without flow-limiting stenosis. 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 The distal V4 segment on the left is not visualized. A telephone call regarding the findings in the examination was made to and acknowledged by Dr. Baltazar from neurology at 5:30 a.m. on 01/06/2023. Workstation ID: [id number] Dictated by: SALAS GOLDSTEIN on WedJan 06, 2023 5:31:39 AM EST Transcribed by: SALAS GOLDSTEIN on WedJan 06, 2023 5:31:39 AM EST Finalized by: SALAS GOLDSTEIN on WedJan 06, 2023 5:31:39 AM EST Normal [facility] Comment on above: Order Comment: Injur y/Trauma or Illness?:Illness/Other How long have you had these symptoms (acute/chronic)?:Acute Reason for exam?:r mca syndrome Type of Exam?:Initial Additional signs and symptoms?:r mca syndrome CT HEAD OR BRAIN WITHOUT CON TRASTon 01-06-2023 CT HEAD OR BRAIN WITHOUT CONTRAST EXAMINATION: CT Head without Contrast HISTORY: Stroke, follow up ?? To be completed 18-30 hours after thrombolytic (alteplase, tenecteplase) initiated or intervention complete ?? Radiology to call Neurology on-call with critical results. COMPARISON: CT head, 01/06/2023 TECHNIQUE: Multiple axial noncontrast images of the brain were obtained and reformatted according to the standard protocol. QPP DOCUMENTATION: At least one of the following dose reduction techniques was utilized: Iterative reconstruction, and/or Automatic Exposure Control, and/or mA/kV adjustment based on body size. FINDINGS: Infarct/Vascular: There is a small area of evolving infarction within the posterolateral right frontal lobe and involving a portion of the posterior right insula. There is a small area of very subtle hyperdensity within the subinsular region which may represent a small area of petechial hemorrhage. Patchy areas of decreased attenuation throughout the supratentorial white matter are nonspecific but commonly associated chronic small vessel ischemic disease. Intracranial Mass: No evidence of intracranial mass. CSF Spaces: Mild generalized parenchymal atrophy. No change since prior exam. Calvarium and Scalp: Unremarkable. Mastoid Air Cells: Clear. Paranasal Sinuses and Orbits: Mild lobulated mucosal thickening along the alveolar recess of the left maxillary sinus. The orbits are unremarkable. IMPRESSION: There is a small evolving infarction within the posterolateral right frontal lobe and adjacent posterior right insula. There is very subtle hyperdensity within the subinsular region which may represent minimal petechial hemorrhage. Continued follow-up recommended. Workstation ID: [id number] Dictated by: RACIEL POLLARD on WedJan 06, 2023 11:16:08 PM EST Transcribed by: RACIEL POLLARD on WedJan 06, 2023 11:16:08 PM EST Finalized by: RACIEL POLLRAD on WedJan 06, 2023 11:16:08 PM EST Normal [facility] Comment on above: Order Comment: ?? To be completed 18-30 hours after thrombolytic (alteplase, tenecteplase) initiated or intervention complete ?? Radiology to call Neurology on-call with critical results. ?? NOTE: CT may not be nesessary if MRI of brain in previous 6 hours negative for intracranial hemorrhage. Injury/Trauma or Illness?:Illness/Other How long have you had these symptoms (acute/chronic)?:Acute Reason for exam?:Stroke, follow up Type of Exam?:Initial Additional signs and symptoms?:Stroke, follow up CT HEAD WITHOUT CONTRAST ([facility])on 01-06-2023 CT HEAD WITHOUT CONTRAST (STROKE) EXAMINATION: CT HEAD WITHOUT CONTRAST (STROKE) HISTORY: r mca syndrome Injury/Trauma or Illness?:Illness/Othe r How long have you had these symptoms (acute/chronic)?:Acut e Reason for exam?:r mca syndrome Type of Exam?:Initial Additional signs and symptoms?:r mca syndrome Injury/Trauma or Illness?:Illness/Othe r How long have you had these symptoms (acute/chronic)?:Acut er mca syndrome COMPARISON: Head CT dated 01/06/2023 at 1:[address] angiogram of the head and neck dated 01/06/2023 at 2:33 a.m.. CONTRAST: None. TECHNIQUE CT Head with axial, coronal and sagittal reformats. Dose reduction techniques were achieved by using automated exposure control and/or adjustment of mA and/or kV according to patient size and/or use of iterative reconstruction technique. FINDINGS: FINDINGS: POSTOPERATIVE CHANGES: None. BRAIN PARENCHYMA: There is very subtle hypodensity present within the llamas radiata on the right, image 31/series 7. No intraparenchymal or extra-axial hemorrhage. No mass effect. No midline shift or herniation. Patchy low-density in the white matter also noted consistent with small vessel ischemic change. VENTRICLES/EXTRA-AXIA L SPACES: Enlarged, consistent with atrophy. VESSELS: The subtle hyperdensity previously noted in the right MCA is less conspicuous, image 18/series 7. Vascular calcifications are noted. Please refer to the CT angiogram report. SINUSES/MASTOIDS:Visu alized sinuses are clear. Erika bullosa bilaterally. Nasal septal deviation to the right with spur formation. Mastoids and middle ears are clear. MSK: No displaced or depressed calvarial fracture. OTHER: IMPRESSION: 1. Subtle low-density within the llamas radiata on the right. Early area of infarction not excluded. 2. Hyperdensity within the distal right MCA not as conspicuous as on the prior study. 3. Small vessel ischemic changes. 4. Atrophy. Workstation ID: [id number] Dictated by: SALAS GOLDSTEIN on WedJan 06, 2023 5:10:12 AM EST Transcribed by: SALAS GOLDSTEIN on WedJan 06, 2023 5:10:12 AM EST Finalized by: SALAS GOLDSTEIN on WedJan 06, 2023 5:10:12 AM EST Normal [facility] Comment on above: Order Comment: Injur y/Trauma or Illness?:Illness/Other How long have you had these symptoms (acute/chronic)?:Acute Reason for exam?:r mca syndrome Type of Exam?:Initial Additional signs and symptoms?:r mca syndrome CT Head WO contraston 2022 There is a small evolving infarction within the posterolateral right frontal lobe and adjacent posterior right insula. There is very subtle hyperdensity within the subinsular region which may represent minimal petechial hemorrhage. Continued follow-up recommended. Workstation ID: [id number] [employer] EXAMINATION: CT Head without Contrast HISTORY: Stroke, follow up To be completed 18-30 hours after thrombolytic (alteplase, tenecteplase) initiated or intervention complete Radiology to call Neurology on-call with critical results. COMPARISON: CT head, 01/06/2023 TECHNIQUE: Multiple axial noncontrast images of the brain were obtained and reformatted according to the standard protocol. QPP DOCUMENTATION: At least one of the following dose reduction techniques was utilized: Iterative reconstruction, and/or Automatic Exposure Control, and/or mA/kV adjustment based on body size. FINDINGS: Infarct/Vascular: There is a small area of evolving infarction within the posterolateral right frontal lobe and involving a portion of the posterior right insula. There is a small area of very subtle hyperdensity within the subinsular region which may represent a small area of petechial hemorrhage. Patchy areas of decreased attenuation throughout the supratentorial white matter are nonspecific but commonly associated chronic small vessel ischemic disease. Intracranial Mass: No evidence of intracranial mass. CSF Spaces: Mild generalized parenchymal atrophy. No change since prior exam. Calvarium and Scalp: Unremarkable. Mastoid Air Cells: Clear. Paranasal Sinuses and Orbits: Mild lobulated mucosal thickening along the alveolar recess of the left maxillary sinus. The orbits are unremarkable. [employer] Raciel Pollard MD - 01/06/2023 EXAMINATION: CT Head without Contrast HISTORY: Stroke, follow up To be completed 18-30 hours after thrombolytic (alteplase, tenecteplase) initiated or intervention complete Radiology to call Neurology on-call with critical results. COMPARISON: CT head, 01/06/2023 TECHNIQUE: Multiple axial noncontrast images of the brain were obtained and reformatted according to the standard protocol. QPP DOCUMENTATION: At least one of the following dose reduction techniques was utilized: Iterative reconstruction, and/or Automatic Exposure Control, and/or mA/kV adjustment based on body size. FINDINGS: Infarct/Vascular: There is a small area of evolving infarction within the posterolateral right frontal lobe and involving a portion of the posterior right insula. There is a small area of very subtle hyperdensity within the subinsular region which may represent a small area of petechial hemorrhage. Patchy areas of decreased attenuation throughout the supratentorial white matter are nonspecific but commonly associated chronic small vessel ischemic disease. Intracranial Mass: No evidence of intracranial mass. CSF Spaces: Mild generalized parenchymal atrophy. No change since prior exam. Calvarium and Scalp: Unremarkable. Mastoid Air Cells: Clear. Paranasal Sinuses and Orbits: Mild lobulated mucosal thickening along the alveolar recess of the left maxillary sinus. The orbits are unremarkable. IMPRESSION: There is a small evolving infarction within the posterolateral right frontal lobe and adjacent posterior right insula. There is very subtle hyperdensity within the subinsular region which may represent minimal petechial hemorrhage. Continued follow-up recommended. Workstation ID: [id number] [facility] Radiology Study observation (narrative) [facility] 1. Subtle low-density within the llamas radiata on the right. Early area of infarction not excluded. 2. Hyperdensity within the distal right MCA not as conspicuous as on the prior study. 3. Small vessel ischemic changes. 4. Atrophy. Workstation ID: [id number] [facility] EXAMINATION: CT HEAD WITHOUT CONTRAST (STROKE) HISTORY: r mca syndrome Injury/Trauma or Illness?:Illness/Othe r How long have you had these symptoms (acute/chronic)?:Acut e Reason for exam?:r mca syndrome Type of Exam?:Initial Additional signs and symptoms?:r mca syndrome Injury/Trauma or Illness?:Illness/Othe r How long have you had these symptoms (acute/chronic)?:Acut er mca syndrome COMPARISON: Head CT dated 01/06/2023 at 1:[address] angiogram of the head and neck dated 01/06/2023 at 2:33 a.m.. CONTRAST: None. TECHNIQUE CT Head with axial, coronal and sagittal reformats. Dose reduction techniques were achieved by using automated exposure control and/or adjustment of mA and/or kV according to patient size and/or use of iterative reconstruction technique. FINDINGS: FINDINGS: POSTOPERATIVE CHANGES: None. BRAIN PARENCHYMA: There is very subtle hypodensity present within the llamas radiata on the right, image 31/series 7. No intraparenchymal or extra-axial hemorrhage. No mass effect. No midline shift or herniation. Patchy low-density in the white matter also noted consistent with small vessel ischemic change. VENTRICLES/EXTRA-AXIA L SPACES: Enlarged, consistent with atrophy. VESSELS: The subtle hyperdensity previously noted in the right MCA is less conspicuous, image 18/series 7. Vascular calcifications are noted. Please refer to the CT angiogram report. SINUSES/MASTOIDS:Visu alized sinuses are clear. Erika bullosa bilaterally. Nasal septal deviation to the right with spur formation. Mastoids and middle ears are clear. MSK: No displaced or depressed calvarial fracture. OTHER: Salas Prajapati MD - 01/06/2023 EXAMINATION: CT HEAD WITHOUT CONTRAST (STROKE) HISTORY: r mca syndrome Injury/Trauma or Illness?:Illness/Othe r How long have you had these symptoms (acute/chronic)?:Acut e Reason for exam?:r mca syndrome Type of Exam?:Initial Additional signs and symptoms?:r mca syndrome Injury/Trauma or Illness?:Illness/Othe r How long have you had these symptoms (acute/chronic)?:Acut er mca syndrome COMPARISON: Head CT dated 01/06/2023 at 1:[address] angiogram of the head and neck dated 01/06/2023 at 2:33 a.m.. CONTRAST: None. TECHNIQUE CT Head with axial, coronal and sagittal reformats. Dose reduction techniques were achieved by using automated exposure control and/or adjustment of mA and/or kV according to patient size and/or use of iterative reconstruction technique. FINDINGS: FINDINGS: POSTOPERATIVE CHANGES: None. BRAIN PARENCHYMA: There is very subtle hypodensity present within the llamas radiata on the right, image 31/series 7. No intraparenchymal or extra-axial hemorrhage. No mass effect. No midline shift or herniation. Patchy low-density in the white matter also noted consistent with small vessel ischemic change. VENTRICLES/EXTRA-AXIA L SPACES: Enlarged, consistent with atrophy. VESSELS: The subtle hyperdensity previously noted in the right MCA is less conspicuous, image 18/series 7. Vascular calcifications are noted. Please refer to the CT angiogram report. SINUSES/MASTOIDS:Visu alized sinuses are clear. Erika bullosa bilaterally. Nasal septal deviation to the right with spur formation. Mastoids and middle ears are clear. MSK: No displaced or depressed calvarial fracture. OTHER: IMPRESSION: 1. Subtle low-density within the llamas radiata on the right. Early area of infarction not excluded. 2. Hyperdensity within the distal right MCA not as conspicuous as on the prior study. 3. Small vessel ischemic changes. 4. Atrophy. Workstation ID: [id number] [facility] Radiology Study observation (narrative) CT Head WO contrastOrdered B y: Raciel Pollard on 01-06-2023 [facility] Work Phone: CT Head WO contrastOrdered B y: Salas Goldstein on 01-06-2023 [facility] Work Phone: CT Head WO contrast and CT B rain for perfusion W contrast IV and CT angiogram Head and neck vessels W contrast Coleen 01-06-2023 1. Improvement in the appearance of the intracranial vessels. Previously noted abnormality in the M2 segment of the right MCA is no longer visualized with patent appearance of the MCA bilaterally. Distal distributions appear symmetric. 2. Better visualization of the posterior circulation. Dominant V4 on the right with calcific plaque without flow-limiting stenosis. 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 The distal V4 segment on the left is not visualized. A telephone call regarding the findings in the examination was made to and acknowledged by Dr. Baltazar from neurology at 5:30 a.m. on 01/06/2023. Workstation ID: [id number] [facility] EXAMINATION: CT ANGIOGRAM BRAIN WITH PERFUSION HISTORY: r mca syndrome Injury/Trauma or Illness?:Illness/Othe r How long have you had these symptoms (acute/chronic)?:Acut e Reason for exam?:r mca syndrome Type of Exam?:Initial Additional signs and symptoms?:r mca syndrome I63.9 Acute ischemic stroke (HCC)Injury/Trauma or Illness?:Illness/Othe r How long have you had these symptoms (acute/chronic)?:Acut er mca syndrome COMPARISON: Head CT and CT angiogram performed at [facility] dated 01/06/2023 at 2:[address] dated 01/06/2023 at 4:39 a.m.. TECHNIQUE: CT angiogram of the head was performed. Coronal, sagittal and 3-D reformats were created and reviewed. Dose reduction techniques were achieved by using automated exposure control and/or adjustment of mA and/or kV according to patient size and/or use of iterative reconstruction technique CONTRAST: Isovue 370 FINDINGS: BRAIN: Perfusion images demonstrate 0 mL volume of hypoperfusion with T-max greater than 6 seconds and 0 mL volume of core infarction with cerebral of flow less than 30%. ANTERIOR CIRCULATION:The intra petrous, intra cavernous, and supraclinoid ICA are patent. LILI patent bilaterally. MCA patent bilaterally. No large vessel occlusion or thrombus. No aneurysm. Distal distributions now appear symmetric. POSTERIOR CIRCULATION: Dominant right V4 segment demonstrates calcific plaque without flow-limiting stenosis. 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 No distal V4 segment is seen. This is hypoplastic or occluded. Basilar artery is patent. Basilar tip is patent. SCA and [employer] patent. Distal [employer] distributions are symmetric. 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 This is better visualized as compared to the prior study. OTHER: No pathologic enhancing lesions are seen. [facility] Salas Goldstein MD - 01/06/2023 EXAMINATION: CT ANGIOGRAM BRAIN WITH PERFUSION HISTORY: r mca syndrome Injury/Trauma or Illness?:Illness/Othe r How long have you had these symptoms (acute/chronic)?:Acut e Reason for exam?:r mca syndrome Type of Exam?:Initial Additional signs and symptoms?:r mca syndrome I63.9 Acute ischemic stroke (HCC)Injury/Trauma or Illness?:Illness/Othe r How long have you had these symptoms (acute/chronic)?:Acut er mca syndrome COMPARISON: Head CT and CT angiogram performed at [facility] dent dated 01/06/2023 at 2:[address] dated 01/06/2023 at 4:39 a.m.. TECHNIQUE: CT angiogram of the head was performed. Coronal, sagittal and 3-D reformats were created and reviewed. Dose reduction techniques were achieved by using automated exposure control and/or adjustment of mA and/or kV according to patient size and/or use of iterative reconstruction technique CONTRAST: Isovue 370 FINDINGS: BRAIN: Perfusion images demonstrate 0 mL volume of hypoperfusion with T-max greater than 6 seconds and 0 mL volume of core infarction with cerebral of flow less than 30%. ANTERIOR CIRCULATION:The intra petrous, intra cavernous, and supraclinoid ICA are patent. LILI patent bilaterally. MCA patent bilaterally. No large vessel occlusion or thrombus. No aneurysm. Distal distributions now appear symmetric. POSTERIOR CIRCULATION: Dominant right V4 segment demonstrates calcific plaque without flow-limiting stenosis. 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 No distal V4 segment is seen. This is hypoplastic or occluded. Basilar artery is patent. Basilar tip is patent. SCA and [employer] patent. Distal [employer] distributions are symmetric. 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 This is better visualized as compared to the prior study. OTHER: No pathologic enhancing lesions are seen. IMPRESSION: 1. Improvement in the appearance of the intracranial vessels. Previously noted abnormality in the M2 segment of the right MCA is no longer visualized with patent appearance of the MCA bilaterally. Distal distributions appear symmetric. 2. Better visualization of the posterior circulation. Dominant V4 on the right with calcific plaque without flow-limiting stenosis. 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 The distal V4 segment on the left is not visualized. A telephone call regarding the findings in the examination was made to and acknowledged by Dr. Baltazar from neurology at 5:30 a.m. on 01/06/2023. Workstation ID: [id number] [facility] Radiology Study observation (narrative) [facility] Cal[facility], IonizedOrdered By: Nena Horn on 01-06-2023 Calcium.ionized [Mass/Vol] 4.9 mg/dL 4.5 - 5.3 mg/dL [facility] Calcium.ionized [Mass/Vol]Or dered By: Nena Horn on 01-06-2023 Interpretation and review of laboratory results Normal [facility] Critical Careon 01-06-2023 Jeffry Arreaga MD 01/06/2023 5:18 AM Critical Care Performed by: Jeffry Arreaga MD Authorized by: Jeffry Arreaga MD Total critical care time: 35 minutes Critical care time was exclusive of separately billable procedures and treating other patients and teaching time. 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 Critical care was time spent personally by me on the following activities: development of treatment plan with patient or surrogate, discussions with consultants, interpretation of cardiac output measurements, evaluation of patient's response to treatment, examination of patient, obtaining history from patient or surrogate, ordering and performing treatments and interventions, ordering and review of radiographic studies, pulse oximetry, re-evaluation of patient's condition and review of old charts. [facility] ECHOCARDIOGRAM COMPLETE W CO NTRASTon 01-06-2023 ECHOCARDIOGRAM COMPLETE W CONTRAST Patient Info Name: KEVIN WHITE Age: 82 years : 1940 Gender: Male Ht: 183 cm Wt: 112 kg BSA: 2.41 m2 HR: 69 bpm BP: 165 / 64 mmHg Technical Quality: Poor Exam Date: 01/06/2023 8:38 AM Patient Status: Inpatient Upscale Security Officer: Sheryl Smith RDCS, RVT Exam Type: ECHOCARDIOGRAM COMPLETE W CONTRAST Study Info Indications G45.9 - Transient cerebral ischemic attack, unspecified Attending Physician: ELLEN SOTO Referring Physician: KAMILAH RAMOS ; [id number] Primary Nurse: MINGLER OPERATOR BMI: 33.36 kg/m2 Summary 1. This study was technically limited, Definity IV contrast was used to enhance endocardial definition. 2. Left ventricular systolic function is normal with an ejection fraction by Biplane Method of Discs of 59 %. 3. And aortic bioprosthesis (27 mm Inspiris) appears well-seated, but is not well visualized. 4. There is no bioprosthetic aortic valve stenosis with a peak velocity of 2.1 m/s, mean gradient of 10 mmHg, and aortic valve area of 1.8 cm2. 5. Left atrial chamber is mildly enlarged with a left atrial volume index of 41 ml/m2 by BP MOD. 6. Compared to the prior study from 11/13/2021, there is no significant interval change. 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 Prior Interventions Pacemaker: No PCI: Yes CABG: Yes Valve Surgery: Yes Type of Valve Surgery: AV Bioprosthetic Replacement ICD: No Date of CAB08/12/2021 Most Recent Valve Surgery: 08/12/2021 Transcatheter Intervention: HEATHER Closure Replacement Valve Size: 27 mm Inspiris Replacement Valve Size: 40mm atriclip Procedure(s): Complete two-dimensional, color flow and Doppler transthoracic echocardiogram is performed with contrast. Definity explained to patient. Patient verbalizes understanding and agrees to proceed. Definity 1.3ml/8.7ml normal sterile saline 2 ml total given IV over 30-60 seconds. Left Ventricle Left ventricular chamber dimension is normal. Left ventricular systolic function is normal with an ejection fraction by Biplane Method of Discs of 59 %. Normal left ventricular mass. Left ventricular segmental wall motion is normal. There is normal diastolic function. E/e' average 11.9 is not elevated consistent with normal LA pressure. Right Ventricle Right ventricular chamber dimension is normal. Right ventricular systolic function is normal. Left Atria Left atrial chamber is mildly enlarged with a left atrial volume index of 41 ml/m2 by BP MOD. Right Atria Right atrial chamber dimension is normal. Aortic Valve And aortic bioprosthesis (27 mm Inspiris) appears well-seated, but is not well visualized. There is no sclerosis of the bioprosthetic aortic valve leaflets. There is no regurgitation of the bioprosthetic aortic valve. There is no bioprosthetic aortic valve stenosis with a peak velocity of 2.1 m/s, mean gradient of 10 mmHg, and aortic valve area of 1.8 cm2. Pulmonic Valve The pulmonic valve is normal. There is no pulmonic valve stenosis. There is trace pulmonic regurgitation. Mitral Valve The mitral valve has normal leaflets. There is no mitral valve stenosis. Moderate mitral annular calcification. There is trace mitral valve regurgitation. Tricuspid Valve The tricuspid valve leaflets are normal. There is no significant tricuspid valve stenosis. There is trace tricuspid valve regurgitation. There is no pulmonary hypertension, estimated right ventricle systolic pressure is 37 mmHg. Pericardium/Pleural The pericardium appears normal. There is no pericardial effusion. Inferior Vena Cava Normal inferior vena cava with >50% collapse upon inspiration consistent with normal right atrial pressure. Aorta The aortic measurements are indexed to age and body surface area. The aortic root is normal measuring 3.5 cm with an index of 1.4 cm/m2. The proximal ascending aorta is normal measuring 3.5 cm with an index of 1.4 cm/m2. Left Ventricular Outflow Tract ------- Name Value Normal ------- LVOT 2D ------- LVOT Diameter 2.2 cm LVOT Doppler ------- LVOT Peak Velocity 1.1 m/s LVOT Mean Gradient 1 mmHg LVOT VTI 20 cm LVOT VTI/AV VTI Ratio 0.5 LVOT Stroke Volume 78 ml LVOT Stroke Index 32.10 ml/m2 Pulmonic Valve - (more content not included)... Normal [facility] Echocardiogram complete w co ntrastOrdered By: Dara Hallal on 01-06-2023 Aortic valve area 1.7827 cm [facility] Work Phone: AV mean gradient 10 mmHg [facility] Work Phone: EF [phone] % [facility] Work Phone: [facility] Work Phone: Echocardiogram complete w co ntraston 01-06-2023 Patient Info Name: KEVIN WHITE Age: 82 years : 1940 Gender: Male Ht: 183 cm Wt: 112 kg BSA: 2.41 m2 HR: 69 bpm BP: 165 / 64 mmHg Technical Quality: Poor Exam Date: 01/06/2023 8:38 AM Patient Status: Inpatient Upscale Security Officer: Sheryl Smith RDCS, RVT Exam Type: ECHOCARDIOGRAM COMPLETE W CONTRAST Study Info Indications G45.9 - Transient cerebral ischemic attack, unspecified Attending Physician: ELLEN SOTO Referring Physician: KAMILAH RAMOS ; [id number] Primary Nurse: MINGLER OPERATOR BMI: 33.36 kg/m2 Summary 1. This study was technically limited, Definity IV contrast was used to enhance endocardial definition. 2. Left ventricular systolic function is normal with an ejection fraction by Biplane Method of Discs of 59 %. 3. And aortic bioprosthesis (27 mm Inspiris) appears well-seated, but is not well visualized. 4. There is no bioprosthetic aortic valve stenosis with a peak velocity of 2.1 m/s, mean gradient of 10 mmHg, and aortic valve area of 1.8 cm2. 5. Left atrial chamber is mildly enlarged with a left atrial volume index of 41 ml/m2 by BP MOD. 6. Compared to the prior study from 11/13/2021, there is no significant interval change. 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 Prior Interventions Pacemaker: No PCI: Yes CABG: Yes Valve Surgery: Yes Type of Valve Surgery: AV Bioprosthetic Replacement ICD: No Date of CAB08/12/2021 Most Recent Valve Surgery: 08/12/2021 Transcatheter Intervention: HEATHER Closure Replacement Valve Size: 27 mm Inspiris Replacement Valve Size: 40mm atriclip Procedure(s): Complete two-dimensional, color flow and Doppler transthoracic echocardiogram is performed with contrast. Definity explained to patient. Patient verbalizes understanding and agrees to proceed. Definity 1.3ml/8.7ml normal sterile saline 2 ml total given IV over 30-60 seconds. Left Ventricle Left ventricular chamber dimension is normal. Left ventricular systolic function is normal with an ejection fraction by Biplane Method of Discs of 59 %. Normal left ventricular mass. Left ventricular segmental wall motion is normal. There is normal diastolic function. E/e' average 11.9 is not elevated consistent with normal LA pressure. Right Ventricle Right ventricular chamber dimension is normal. Right ventricular systolic function is normal. Left Atria Left atrial chamber is mildly enlarged with a left atrial volume index of 41 ml/m2 by BP MOD. Right Atria Right atrial chamber dimension is normal. Aortic Valve And aortic bioprosthesis (27 mm Inspiris) appears well-seated, but is not well visualized. There is no sclerosis of the bioprosthetic aortic valve leaflets. There is no regurgitation of the bioprosthetic aortic valve. There is no bioprosthetic aortic valve stenosis with a peak velocity of 2.1 m/s, mean gradient of 10 mmHg, and aortic valve area of 1.8 cm2. Pulmonic Valve The pulmonic valve is normal. There is no pulmonic valve stenosis. There is trace pulmonic regurgitation. Mitral Valve The mitral valve has normal leaflets. There is no mitral valve stenosis. Moderate mitral annular calcification. There is trace mitral valve regurgitation. Tricuspid Valve The tricuspid valve leaflets are normal. There is no significant tricuspid valve stenosis. There is trace tricuspid valve regurgitation. There is no pulmonary hypertension, estimated right ventricle systolic pressure is 37 mmHg. Pericardium/Pleural The pericardium appears normal. There is no pericardial effusion. Inferior Vena Cava Normal inferior vena cava with >50% collapse upon inspiration consistent with normal right atrial pressure. Aorta The aortic measurements are indexed to age and body surface area. The aortic root is normal measuring 3.5 cm with an index of 1.4 cm/m2. The proximal ascending aorta is normal measuring 3.5 cm with an index of 1.4 cm/m2. Left Ventricular Outflow Tract ------- Name Value Normal ------- LVOT 2D ------- LVOT Diameter (more content not included)... FUJI SYNAPSE Dara Stanton MD - 01/06/2023 Patient Info Name: KEVIN WHITE Age: 82 years : 1940 Gender: Male Ht: 183 cm Wt: 112 kg BSA: 2.41 m2 HR: 69 bpm BP: 165 / 64 mmHg Technical Quality: Poor Exam Date: 01/06/2023 8:38 AM Patient Status: Inpatient Upscale Security Officer: Sheryl Smith RDCS, RVT Exam Type: ECHOCARDIOGRAM COMPLETE W CONTRAST Study Info Indications G45.9 - Transient cerebral ischemic attack, unspecified Attending Physician: ELLEN SOTO Referring Physician: KAMILAH RAMOS ; [id number] Primary Nurse: MINGLER OPERATOR BMI: 33.36 kg/m2 Summary 1. This study was technically limited, Definity IV contrast was used to enhance endocardial definition. 2. Left ventricular systolic function is normal with an ejection fraction by Biplane Method of Discs of 59 %. 3. And aortic bioprosthesis (27 mm Inspiris) appears well-seated, but is not well visualized. 4. There is no bioprosthetic aortic valve stenosis with a peak velocity of 2.1 m/s, mean gradient of 10 mmHg, and aortic valve area of 1.8 cm2. 5. Left atrial chamber is mildly enlarged with a left atrial volume index of 41 ml/m2 by BP MOD. 6. Compared to the prior study from 11/13/2021, there is no significant interval change. 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 Prior Interventions Pacemaker: No PCI: Yes CABG: Yes Valve Surgery: Yes Type of Valve Surgery: AV Bioprosthetic Replacement ICD: No Date of CAB08/12/2021 Most Recent Valve Surgery: 08/12/2021 Transcatheter Intervention: HEATHER Closure Replacement Valve Size: 27 mm Inspiris Replacement Valve Size: 40mm atriclip Procedure(s): Complete two-dimensional, color flow and Doppler transthoracic echocardiogram is performed with contrast. Definity explained to patient. Patient verbalizes understanding and agrees to proceed. Definity 1.3ml/8.7ml normal sterile saline 2 ml total given IV over 30-60 seconds. Left Ventricle Left ventricular chamber dimension is normal. Left ventricular systolic function is normal with an ejection fraction by Biplane Method of Discs of 59 %. Normal left ventricular mass. Left ventricular segmental wall motion is normal. There is normal diastolic function. E/e' average 11.9 is not elevated consistent with normal LA pressure. Right Ventricle Right ventricular chamber dimension is normal. Right ventricular systolic function is normal. Left Atria Left atrial chamber is mildly enlarged with a left atrial volume index of 41 ml/m2 by BP MOD. Right Atria Right atrial chamber dimension is normal. Aortic Valve And aortic bioprosthesis (27 mm Inspiris) appears well-seated, but is not well visualized. There is no sclerosis of the bioprosthetic aortic valve leaflets. There is no regurgitation of the bioprosthetic aortic valve. There is no bioprosthetic aortic valve stenosis with a peak velocity of 2.1 m/s, mean gradient of 10 mmHg, and aortic valve area of 1.8 cm2. Pulmonic Valve The pulmonic valve is normal. There is no pulmonic valve stenosis. There is trace pulmonic regurgitation. Mitral Valve The mitral valve has normal leaflets. There is no mitral valve stenosis. Moderate mitral annular calcification. There is trace mitral valve regurgitation. Tricuspid Valve The tricuspid valve leaflets are normal. There is no significant tricuspid valve stenosis. There is trace tricuspid valve regurgitation. There is no pulmonary hypertension, estimated right ventricle systolic pressure is 37 mmHg. Pericardium/Pleural The pericardium appears normal. There is no pericardial effusion. Inferior Vena Cava Normal inferior vena cava with >50% collapse upon inspiration consistent with normal right atrial pressure. Aorta The aortic measurements are indexed to age and body surface area. The aortic root is normal measuring 3.5 cm with an index of 1.4 cm/m2. The proximal ascending aorta is normal measuring 3.5 cm with an index of 1.4 cm/m2. Left Ventricular Outflow Tract ------- Name Value Normal ------- LVOT 2D ------- LVOT Diameter 2.2 cm LVOT Doppler ------- LVOT Peak Velocity 1.1 m/s LVOT Mean Gradient 1 mmHg LVOT VTI 20 cm LVOT VTI/AV VTI (more content not included)... [facility] Glucose (Bld) [Mass/Vol]on 03-08-2022 Glucose [Mass/Vol] 111 mg/dL High 65 - 99 mg/dL [facility] Interpretation and review of laboratory results Abnormal [facility] Glucose [Mass/Vol] 170 mg/dL High 65 - 99 mg/dL [facility] Interpretation and review of laboratory results Abnormal [facility] Glucose [Mass/Vol] 120 mg/dL High 65 - 99 mg/dL [facility] Interpretation and review of laboratory results Abnormal [facility] Glucose [Mass/Vol] 128 mg/dL High 65 - 99 mg/dL [facility] Interpretation and review of laboratory results Abnormal [facility] Glucose [Mass/Vol] 133 mg/dL High 65 - 99 mg/dL [facility] Interpretation and review of laboratory results Abnormal [facility] HbA1c (Bld) [Mass fraction]o n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 MCV (RBC) [Entitic vol] 95.8 fL 80.0 - 100.0 fL [facility] Nucleated RBC (Bld) [#/Vol] 0.00 10*3/uL [facility] Nucleated RBC/100 WBC (Bld) [Ratio] 0.0 % [facility] Platelet mean volume (Bld) [Entitic vol] 9.0 fL Low 9.4 - 12.4 fL [facility] Platelets (Bld) [#/Vol] 158 10*3/uL [facility] RBC (Bld) [#/Vol] 4.29 10*6/uL Low [facility] WBC (Bld) [#/Vol] 5.90 10*3/uL [facility] Comprehensive metabolic 2000 panelon 03-10-2022 Albumin [Mass/Vol] 3.4 g/dL 3.2 - 5.2 g/dL [facility] ALP [Catalytic activity/Vol] 64 U/L 40 - 150 U/L [facility] ALT [Catalytic activity/Vol] 23 U/L 14 - 65 U/L [facility] Anion gap [Moles/Vol] 10 mmol/L 10 - 2 0 mmol/L [facility] AST [Catalytic activity/Vol] 13 U/L 0 - 45 U/L [facility] Bilirubin [Mass/Vol] 0.5 mg/dL 0.0 - 1 .3 mg/dL [facility] Calcium [Mass/Vol] 8.6 mg/dL 8.4 - 10. 2 mg/dL [facility] Chloride [Moles/Vol] 106 mmol/L 98 - 10 8 mmol/L [facility] Creatinine [Mass/Vol] 1.01 mg/dL 0.80 - 1.30 mg/dL [facility] GFR/1.73 sq M.predicted CKD-EPI (S/P/Bld) [Vol rate/Area] 75 - PINF [facility] Comment on above: Estimated GFR was ca lculated using the 2020 CKD-EPI creatinine equation. Glucose [Mass/Vol] 102 mg/dL High 65 - 99 mg/dL [facility] HCO3 [Moles/Vol] 29 mmol/L 21 - 32 mmol/L [facility] Interpretation and review of laboratory results Abnormal [facility] Potassium [Moles/Vol] 4.2 mmol/L 3.5 - 5.1 mmol/L [facility] Protein [Mass/Vol] 6.2 g/dL 6.0 - 8.0 g/dL [facility] Sodium [Moles/Vol] 141 mmol/L 135 - 145 mmol/L [facility] Urea nitrogen [Mass/Vol] 23 mg/dL 8 - 25 mg/d L [facility] Urea nitrogen/Creatinine [Mass ratio] 22.8 mg/mg High 10.0 - 20.0 [facility] has implemented the eGFR calculation approach that does not have a coefficient for race that conforms to the NKF-ASN Task Force Recommendations. [facility] ECG 12 Leadon 03-10-2022 Atrial Rate 59 BPM [facility] P Winston 96 degrees [facility] P-R Interval 262 ms [facility] Q-T Interval 470 ms [facility] QRS Duration 98 ms [facility] QTC Calculation (Bezet) 465 ms [facility] R [place] 66 degrees [facility] T [place] 96 degrees [facility] Ventricular Rate 59 BPM [facility] Sinus bradycardia with 1st degree AV block with occasional Premature ventricular complexes Nonspecific T wave abnormality Abnormal ECG Confirmed by Raciel Loyola MD ([id number]) on 03/10/2022 4:09:37 PM MUSE [facility] Atrial Rate 500 BPM [facility] Q-T Interval 438 ms [facility] QRS Duration 98 ms [facility] QTC Calculation (Bezet) 438 ms [facility] R [place] 63 degrees [facility] T [place] 74 degrees [facility] Ventricular Rate 60 BPM [facility] Atrial fibrillation Abnormal ECG Confirmed by Raciel Loyola MD ([id number]) on 03/10/2022 7:17:23 AM MUSE [facility] Atrial Rate 84 BPM [facility] Q-T Interval 482 ms [facility] QRS Duration 96 ms [facility] QTC Calculation (Bezet) 448 ms [facility] R [place] 70 degrees [facility] T [place] 79 degrees [facility] Ventricular Rate 52 BPM [facility] Atrial fibrillation with slow ventricular response Nonspecific T wave abnormality Abnormal ECG Confirmed by Raciel Loyola MD ([id number]) on 03/10/2022 7:16:28 AM [facility] Glucose (Bld) [Mass/Vol]on 0 03-10-2022 Glucose [Mass/Vol] 152 mg/dL High 65 - 99 mg/dL [facility] Interpretation and review of laboratory results Abnormal [facility] Glucose [Mass/Vol] 121 mg/dL High 65 - 99 mg/dL [facility] Interpretation and review of laboratory results Abnormal [facility] Glucose [Mass/Vol] 103 mg/dL High 65 - 99 mg/dL [facility] Interpretation and review of laboratory results Abnormal [facility] Glucose [Mass/Vol] 96 mg/dL 65 - 99 mg/dL [facility] Interpretation and review of laboratory results Normal [facility] HbA1c (Bld) [Mass fraction]o n 03-10-2022 Average glucose Estimated from glycated hemoglobin (Bld) [Mass/Vol] 151 mg/dL High 68 - 114 mg/dL [facility] Interpretation and review of laboratory results Abnormal [facility] Normal: 4.0% - 5.6% Increased risk for diabetes: 5.7% - 6.4% Diabetes: >= 6.5% Pediatrics: No established reference range Estimated average glucose: 68-114 mg/dL [facility] Hemoglobin A1con 03-10-2022 HbA1c (Bld) [Mass fraction] 6.9 % High 4.0 - 5.6 % [facility] INR Coag (PPP) [Relative janet e]on 03-10-2022 Interpretation and review of laboratory results Abnormal [facility] PT Coag (PPP) [Time] 26.3 s High [facility] [place] During the induction phase of oral anticoagulation, the INR may not reflect the anticoagulation status of the patient. Therapeutic ranges for INR's are: Most clinical situations: INR 2.0-3.0 Mechanical Prosthetic Valve: INR 2.5-3.5 Critical: INR >5.0 [facility] Magnesium Levelon 03-10-2022 Magnesium [Mass/Vol] 2.2 mg/dL 1.6 - 2 .4 mg/dL [facility] Magnesium [Mass/Vol]on 03-10 Interpretation and review of laboratory results Normal [facility] PT/INRon 03-10-2022 INR Coag (PPP) [Relative time] 2.4 {INR} High 0.8 - 1.1 [facility] Basic metabolic 2000 panelon 03-09-2022 Anion gap [Moles/Vol] 12 mmol/L 10 - 2 0 mmol/L [facility] Calcium [Mass/Vol] 9.2 mg/dL 8.4 - 10. 2 mg/dL [facility] Chloride [Moles/Vol] 107 mmol/L 98 - 10 8 mmol/L [facility] Creatinine [Mass/Vol] 1.29 mg/dL 0.80 - 1.30 mg/dL [facility] GFR/1.73 sq M.predicted CKD-EPI (S/P/Bld) [Vol rate/Area] 56 Low - PINF [facility] Comment on above: Estimated GFR was ca lculated using the 2020 CKD-EPI creatinine equation. Glucose [Mass/Vol] 123 mg/dL High 65 - 99 mg/dL [facility] HCO3 [Moles/Vol] 25 mmol/L 21 - 32 mmol/L [facility] Interpretation and review of laboratory results Abnormal [facility] Potassium [Moles/Vol] 4.7 mmol/L 3.5 - 5.1 mmol/L [facility] Sodium [Moles/Vol] 139 mmol/L 135 - 145 mmol/L [facility] Urea nitrogen [Mass/Vol] 24 mg/dL 8 - 25 mg/d L [facility] Urea nitrogen/Creatinine [Mass ratio] 18.6 mg/mg 10.0 - 20.0 [facility] has implemented the eGFR calculation approach that does not have a coefficient for race that conforms to the NKF-ASN Task Force Recommendations. [facility] CBC panel Auto (Bld)on 03-09 Erythrocyte distribution width (RBC) [Entitic vol] 15.0 % High 11.6 - 14.8 % [facility] Hematocrit (Bld) [Volume fraction] 44.2 % 41.0 - 53.0 % [facility] Hemoglobin (Bld) [Mass/Vol] 14.5 g/dL 13.5 - 17.5 g/dL [facility] Interpretation and review of laboratory results Abnormal [facility] MCH (RBC) [Entitic mass] 31.7 pg 26. 0 - 34.0 pg [facility] MCHC (RBC) [Mass/Vol] 32.8 g/dL 31.0 - 37.0 g/dL [facility] MCV (RBC) [Entitic vol] 96.5 fL 80.0 - 100.0 fL [facility] Nucleated RBC (Bld) [#/Vol] 0.00 10*3/uL [facility] Nucleated RBC/100 WBC (Bld) [Ratio] 0.0 % [facility] Platelet mean volume (Bld) [Entitic vol] 9.3 fL Low 9.4 - 12.4 fL [facility] Platelets (Bld) [#/Vol] 160 10*3/uL [facility] RBC (Bld) [#/Vol] 4.58 10*6/uL [facility] ealth WBC (Bld) [#/Vol] 6.96 10*3/uL [facility], IonizedOrdered By: Anai Littlejohn on 03-09-2022 Calcium.ionized [Mass/Vol] 4.8 mg/dL 4.5 - 5.3 mg/dL [facility] Calcium.ionized [Mass/Vol]Or dered By: Anai Littlejohn on 03-09-2022 Interpretation and review of laboratory results Normal [facility] Glucose (Bld) [Mass/Vol]on 0 03-09-2022 Glucose [Mass/Vol] 133 mg/dL High 65 - 99 mg/dL [facility] Interpretation and review of laboratory results Abnormal [facility] Glucose [Mass/Vol] 108 mg/dL High 65 - 99 mg/dL [facility] Interpretation and review of laboratory results Abnormal [facility] Glucose [Mass/Vol] 112 mg/dL High 65 - 99 mg/dL [facility] Interpretation and review of laboratory results Abnormal [facility] INR Coag (PPP) [Relative janet e]on 03-09-2022 Interpretation and review of laboratory results Abnormal [facility] PT Coag (PPP) [Time] 24.4 s [facility] During the induction phase of oral anticoagulation, the INR may not reflect the anticoagulation status of the patient. Therapeutic ranges for INR's are: Most clinical situations: INR 2.0-3.0 Mechanical Prosthetic Valve: INR 2.5-3.5 Critical: INR >5.0 [facility] Magnesiumon 03-09-2022 Magnesium [Mass/Vol] 2.1 mg/dL 1.6 - 2 .4 mg/dL [facility] Magnesium [Mass/Vol]on 03-09 Interpretation and review of laboratory results Normal [facility] No Panel Informationon 03-09 Interpretation and review of laboratory results Normal [facility] PT/INRon 03-09-2022 INR Coag (PPP) [Relative time] 2.2 {INR} High 0.8 - 1.1 [facility] T4, Freeon 03-09-2022 Free T4 [Mass/Vol] 1.6 ng/dL 0.7 - 1.7 ng/dL [facility] [facility] TSH DL <= 0.005 mIU/L Qnon 0 03-09-2022 TSH Qn 0.85 m[IU]/L [facility] CHEST 2 VIEW PA AND LATon CHEST 2 VIEW PA AND LAT Patient Name: KEVIN WHITE STUDY: CHEST 2 VIEW PA AND LAT; 02/13/2022 3:46 pm INDICATION: COUGH, UNSPECIFIED. COMPARISON: 03/31/2021 ACCESSION NUMBER(S): [id number] ORDERING CLINICIAN: NAVEEN RASMUSSEN FINDINGS: PA and lateral views of the chest were obtained. Sternal wires and mediastinal surgical clips are present. Mild diffuse interstitial infiltrates are seen throughout the lungs bilaterally, and may represent fibrosis, edema and/or pneumonia. No pleural effusion or pneumothorax is identified. The cardiac silhouette is within normal limits for size. Foru-bj-qsgyxjsx discogenic degenerative changes are seen throughout the thoracic spine. IMPRESSION: Diffuse interstitial infiltrates bilaterally, as above. Clinical correlation and continued follow-up until clearing is recommended. Electronically signed by: AARON STARKS MD [facility] ECG 12 LeadOrdered By: Kulwinder Miller on 12-24-2021 Atrial Rate [facility] P [place] [facility] P-R Interval [facility] Q-T Interval [facility] Q-T Interval (corrected) [facility] QRS Duration [facility] QTC Calculation (Bezet) [facility] R [facility] T [place] [facility] Ventricular Rate [facility] ECG 12 Leadon 10-17-2021 Atrial Rate [facility] P [place] [facility] P-R Interval [facility] Q-T Interval [facility] Q-T Interval (corrected) [facility] QRS Duration [facility] QTC Calculation (Bezet) O [facility] [place] [facility] T Winston [facility] Ventricular Rate [facility] Comprehensive metabolic 2000 panelon 06-16-2021 Albumin [Mass/Vol] 4.0 g/dL 3.2 - 5.2 g/dL [facility] ALP [Catalytic activity/Vol] 93 U/L 40 - 150 U/L [facility] ALT [Catalytic activity/Vol] 35 U/L 14 - 65 U/L [facility] Anion gap [Moles/Vol] 13 mmol/L 10 - 2 0 mmol/L [facility] AST [Catalytic activity/Vol] 21 U/L 0 - 45 U/L [facility] Bilirubin [Mass/Vol] 0.5 mg/dL 0.0 - 1 .3 mg/dL [facility] Calcium [Mass/Vol] 9.5 mg/dL 8.4 - 10. 2 mg/dL [facility] Chloride [Moles/Vol] 105 mmol/L 98 - 10 8 mmol/L [facility] Creatinine [Mass/Vol] 0.98 mg/dL 0.80 - 1.30 [facility] GFR/1.73 sq M.predicted CKD-EPI (S/P/Bld) [Vol rate/Area] 73 >=60 mL/min/1.73 m2 [facility] Glucose [Mass/Vol] 171 mg/dL High 65 - 99 mg/dL [facility] HCO3 [Moles/Vol] 26 mmol/L 21 - 32 mmol/L [facility] Interpretation and review of laboratory results Abnormal [facility] Potassium [Moles/Vol] 4.0 mmol/L 3.5 - 5.1 mmol/L [facility] Protein [Mass/Vol] 7.4 g/dL 6.0 - 8.0 g/dL [facility] Sodium [Moles/Vol] 140 mmol/L 135 - 145 mmol/L [facility] Urea nitrogen [Mass/Vol] 18 mg/dL 8 - 25 mg/d L [facility] Urea nitrogen/Creatinine [Mass ratio] 18.4 mg/mg [facility] The eGFR should be used for monitoring renal function only and not for medication dosing. [facility] ECG 12 leadon 06-16-2021 Atrial Rate [facility] P [place] [facility] P-R Interval [facility] Q-T Interval [facility] Q-T Interval (corrected) [facility] QRS Duration [facility] QTC Calculation (Bezet) [facility] [place] [facility] T [place] [facility] Ventricular Rate [facility] ECG 12 leadOrdered By: Alejandra Shirley on 06-16-2021 Atrial Rate [facility] P [place] [facility] P-R Interval [facility] Q-T Interval [facility] Q-T Interval (corrected) [facility] QRS Duration [facility] QTC Calculation (Bezet) [facility] R [place] [facility] T [place] [facility] Ventricular Rate [facility] CHEST 2 VIEW PA AND LATon CHEST 2 VIEW PA AND LAT Patient Name: KEVIN WHITE STUDY: CHEST 2 VIEW PA AND LAT; 03/31/2021 3:17 pm INDICATION: shortness of breath and cough . COMPARISON: 05/12/2019 ACCESSION NUMBER(S): [id number] ORDERING CLINICIAN: YOSEPH DAVIS FINDINGS: PA and lateral views of the chest were obtained. Hazy airspace opacities are seen at the lung bases bilaterally, and may represent atelectasis and/or pneumonia. No pleural effusion or pneumothorax is identified. The cardiac silhouette is within normal limits for size. Vkvt-cb-pveamati discogenic degenerative changes are seen throughout the thoracic spine. IMPRESSION: Bibasilar airspace opacities, as above. Clinical correlation and continued follow-up until clearing is recommended. Electronically signed by: AARON STARKS MD [facility] Provider Note - ED v3on 03-18 Provider Note - ED v3 Provider Note: Chart Review: HISTORY OF PRESENTING ILLNESS KEVIN is a 80 year old Male and was seen by me at 31-Mar-2021 14:22. Triage Information: Most recent Vital Sign Value Date PAST MEDICAL HISTORY CURRENT OR FORMER SUBSTANCE USE: Tobacco/Nicotine Use: never smoker Alcohol Use: denies ALLERGIES/INTOLERANCE S: No Known Allergies HEALTH HISTORY: No documented data. OUTPATIENT MEDICATIONS: Home Medications Review Status for Reconciliation: Complete Med Status: Patient Currently Takes Medications Drug Name: Levoxyl 175 mcg (0.175 mg) oral tablet Instructions: 1 tab(s) orally once a day Drug Name: amLODIPine 10 mg oral tablet Instructions: 1 tab(s) orally once a day Drug Name: aspirin 81 mg oral tablet Instructions: null Drug Name: metFORMIN 1000 mg oral tablet Instructions: 1 tab(s) orally 2 times a day Drug Name: rosuvastatin 20 mg oral tablet Instructions: 1 tab(s) orally once a day Drug Name: Eliquis 5 mg oral tablet Instructions: 1 tab(s) orally 2 times a day Drug Name: tamsulosin 0.4 mg oral capsule Instructions: 1 cap(s) orally once a day Drug Name: esomeprazole 40 mg oral delayed release capsule Instructions: 1 cap(s) orally once a day Drug Name: azithromycin 250 mg oral tablet Instructions: 2 tab(s) orally once a day on day 1, then 1 tablet orally on days 2-5 Drug Name: amoxicillin-clavulana te 875 mg-125 mg oral tablet Instructions: 1 tab(s) orally 2 times a day x 5 days . Take with food. Drug Name: albuterol 90 mcg/inh inhalation aerosol Instructions: 2 puff(s) inhaled 2 times a day as needed for cough. PT STATES TAKES NEEDED. SIGNIFICANT EVENTS: No documented data. CRITICAL CARE RESULTS: Radiology Results: Xray Chest 2 View PA + Lateral [Mar 31 2021 3:25PM] FINAL REPORT Interpreted by: AARON STARKS CHRISTOPHER, MD 03/31/21 15:22 Facility: [facility] Patient Name: KEVIN WHITE STUDY: TH CHEST 2 VIEW PA AND LAT; 03/31/2021 3:17 pm INDICATION: shortness of breath and cough . COMPARISON: 05/12/2019 ACCESSION NUMBER(S): [id number] ORDERING CLINICIAN: YOSEPH DAVIS FINDINGS: PA and lateral views of the chest were obtained. Hazy airspace opacities are seen at the lung bases bilaterally, and may represent atelectasis and/or pneumonia. No pleural effusion or pneumothorax is identified. The cardiac silhouette is within normal limits for size. Rrqn-sh-smmzlrme discogenic degenerative changes are seen throughout the thoracic spine. IMPRESSION: Bibasilar airspace opacities, as above. Clinical correlation and continued follow-up until clearing is recommended. Transcribed By: Interface, User Electronically Signed By: AARON STARKS CHRISTOPHER 03/31/21 15:22 VITAL SIGNS: T PRBP SpO2O2(LPM) %FiO2 Method 31-Mar-2021 14:44:[id number]/ 84 95 MDM MDM/ED COURSE: This note was dictated using Dragon Dictation there may be errors in spelling, grammar, formatting, and misrecognization of what was dictated. Chief Complaint: ``congestion HPI: Historian Patient and States that symptoms started -3 days ago. Complains of see ROS. Denies see ROS Has tried taking tylenol, and otc cough medication, and albuterol inhaler- with some relief. Factors that aggravate symptoms include laying down. Patient was recently exposed to sick contact- has similar. symptoms Patient has had similar symptoms like this before-yearly with URI. Recent Travel Denies History of COVID infection: December 2020- Had MAB infusion Vaccination for COVID: x3 Review of Systems (+)=Complains of (-)= Denies General: : (+)Weakness, (+)Fatigue,(+)Headach e and (+)Fever (-) Chills (+) Loss of Taste (-) Loss of Smell Mouth/Throat: (+) Sore Throat, (+ )Hoarseness, (+)Post nasal drip Eyes:(-) Eye pain, (-)change in vision,( -)flashing lights. Neck:(-) Swollen Glands, (-)Stiffness, Nose/Sinuses:(+) Nasal Stuffiness, , (+)Discharge, (+)Sinus Pressure. Ears: (-) Pain, (-) Fullness (-)Discharge, (-)Ringing, (-) Dizziness. Skin: (-) itching,(-) change to hair and nails,( -)rash Pulmonary: (+) Cough(,productive), (+) Dyspnea, (+)Wheezing. Cardiac: (+ with coughing) Chest pain, (+) Chest Congestion, (-)Edema. Gastrointestinal: (-) Nausea,(-) Vomiting,( -)Diarrhea( -)Abdominal Pain. Psychological: (-) Anxiety, (-) Depression, (-) Thoughts of self-harm. PHYSICAL EXAM Patient in seated position. Appearance fatigue with shortness of breath audible wheezes from across the room well groomed, alert and orientated, cooperative Head: Normocephalic Ear: External pinna skin intact with no mases, lesions, or discharge. no tenderness with manipulation of tragus and pinna. no tenderness, erythema, or swelling over mastoid. Otoscopic: Landmarks external canals clear with no redness swelling, lesions, discharge. T (more content not included)... Normal [facility] ECG 12-LEADOrdered By: Vu Villalpando on 08-30-2020 Atrial Rate [facility] P [place] [facility] P-R Interval [facility] Q-T Interval [facility] Q-T Interval (corrected) [facility] QRS Duration [facility] QTC Calculation (Bezet) [facility] [place] [facility] T [place] [facility] DOPPLER CAROTIDOrdered By : Naveen Rasmussen on 08-30-2020 Patient Info Name: KEVIN WHITE Age: 79 years : 1940 Gender: Male Exam Date: 08/30/2020 1:38 PM Patient Status: Outpatient Cash Application Clerk: Erendira Fairchild RDMS, RVT Referring Physician: NAVEEN RASMUSSEN ; Indications R42 - Dizziness and giddiness Procedure Description 42744 Duplex examination using B-mode, color and spectral Doppler of extracranial arteries; complete bilateral study. NASCET criteria is used when performing imaging correlation with carotid duplex interpretation. Conclusions * Right. * Minimal (1-19%) stenosis in the right internal carotid artery. * No evidence of stenosis in the right common carotid, external carotid and subclavian arteries. * Right vertebral artery is patent with antegrade flow. * Left. * Mild (20-49%) stenosis in the left internal carotid artery. * No evidence of stenosis in the left common carotid, external carotid and subclavian arteries. * Left vertebral artery is patent with antegrade flow. Measurements ------- Name Value ------- Right PSV ------- Right Prox CCA PSV 88 cm/s Right Mid CCA PSV 107 cm/s Right Distal CCA PSV 75 cm/s Right Prox ICA PSV 75 cm/s Right Mid ICA PSV 64 cm/s Right Distal ICA PSV 68 cm/s Right ECA PSV 65 cm/s Right Vert PSV 55 cm/s Right Prox SCA PSV 97 cm/s Rt ICA/CCA Ratio 1.0 Measurements ------- Name Value ------- Right EDV ------- Right Prox CCA EDV 14 cm/s Right Mid CCA EDV 21 cm/s Right Distal CCA EDV 11 cm/s Right Prox ICA EDV 14 cm/s Right Mid ICA EDV 17 cm/s Right Distal ICA EDV 22 cm/s Right ECA EDV 11 cm/s Right Vert EDV 16 cm/s BC EDV 1 cm/s Right Prox SCA EDV 1 cm/s Measurements ------- Name Value ------- Left PSV ------- Left Prox CCA PSV 110 cm/s Left Mid CCA PSV 87 cm/s Left Distal CCA PSV 81 cm/s Left Prox ICA PSV 143 cm/s Left Mid ICA PSV 74 cm/s Left Distal ICA PSV 92 cm/s Left ECA PSV 59 cm/s Left Vert PSV 56 cm/s Left Prox SCA PSV 139 cm/s Lt ICA/CCA Ratio 1.8 Measurements ------- Name Value ------- Left EDV ------- Left Prox CCA EDV 21 cm/s Left Mid CCA EDV 18 cm/s Left Distal CCA EDV 16 cm/s Left Prox ICA EDV 24 cm/s Left Mid ICA EDV 25 cm/s Left Distal ICA EDV 24 cm/s Left ECA EDV 1 cm/s Left Vert EDV 8 cm/s Left Prox SCA EDV 1 cm/s Right Findings * No plaque noted in the right common carotid artery. * Calcific plaque noted in the right internal carotid artery. * Calcific plaque noted in the right external carotid artery. Left Findings * No plaque noted in the left common carotid artery. * Heterogeneous plaque noted in the left internal carotid artery. * Heterogeneous plaque noted in the left external carotid artery. Risk Factors Patient has a history of hypertension, hyperlipidemia, diabetes, CAD, obesity and stroke. . Report Signatures Finalized by Abelino Brannon MD, RPVI on 08/30/2020 02:42 PM [facility] Interface, Rad In [facility] - 08/30/2020 2:43 PM EDT Patient Info Name: KEVIN WHITE Age: 79 years : 1940 Gender: Male Exam Date: 08/30/2020 1:38 PM Patient Status: Outpatient Cash Application Clerk: Erendira Fairchild RDMS, T Referring Physician: NAVEEN RASMUSSEN ; Indications R42 - Dizziness and giddiness Procedure Description 59042 Duplex examination using B-mode, color and spectral Doppler of extracranial arteries; complete bilateral study. NASCET criteria is used when performing imaging correlation with carotid duplex interpretation. Conclusions * Right. * Minimal (1-19%) stenosis in the right internal carotid artery. * No evidence of stenosis in the right common carotid, external carotid and subclavian arteries. * Right vertebral artery is patent with antegrade flow. * Left. * Mild (20-49%) stenosis in the left internal carotid artery. * No evidence of stenosis in the left common carotid, external carotid and subclavian arteries. * Left vertebral artery is patent with antegrade flow. Measurements ------- Name Value ------- Right PSV ------- Right Prox CCA PSV 88 cm/s Right Mid CCA PSV 107 cm/s Right Distal CCA PSV 75 cm/s Right Prox ICA PSV 75 cm/s Right Mid ICA PSV 64 cm/s Right Distal ICA PSV 68 cm/s Right ECA PSV 65 cm/s Right Vert PSV 55 cm/s Right Prox SCA PSV 97 cm/s Rt ICA/CCA Ratio 1.0 Measurements ------- Name Value ------- Right EDV ------- Right Prox CCA EDV 14 cm/s Right Mid CCA EDV 21 cm/s Right Distal CCA EDV 11 cm/s Right Prox ICA EDV 14 cm/s Right Mid ICA EDV 17 cm/s Right Distal ICA EDV 22 cm/s Right ECA EDV 11 cm/s Right Vert EDV 16 cm/s BC EDV 1 cm/s Right Prox SCA EDV 1 cm/s Measurements ------- Name Value ------- Left PSV ------- Left Prox CCA PSV 110 cm/s Left Mid CCA PSV 87 cm/s Left Distal CCA PSV 81 cm/s Left Prox ICA PSV 143 cm/s Left Mid ICA PSV 74 cm/s Left Distal ICA PSV 92 cm/s Left ECA PSV 59 cm/s Left Vert PSV 56 cm/s Left Prox SCA PSV 139 cm/s Lt ICA/CCA Ratio 1.8 Measurements ------- Name Value ------- Left EDV ------- Left Prox CCA EDV 21 cm/s Left Mid CCA EDV 18 cm/s Left Distal CCA EDV 16 cm/s Left Prox ICA EDV 24 cm/s Left Mid ICA EDV 25 cm/s Left Distal ICA EDV 24 cm/s Left ECA EDV 1 cm/s Left Vert EDV 8 cm/s Left Prox SCA EDV 1 cm/s Right Findings * No plaque noted in the right common carotid artery. * Calcific plaque noted in the right internal carotid artery. * Calcific plaque noted in the right external carotid artery. Left Findings * No plaque noted in the left common carotid artery. * Heterogeneous plaque noted in the left internal carotid artery. * Heterogeneous plaque noted in the left external carotid artery. Risk Factors Patient has a history of hypertension, hyperlipidemia, diabetes, CAD, obesity and stroke. . Report Signatures Finalized by Abelino Brannon MD, RPVI on 08/30/2020 02:42 PM [facility]/INR Capillaryon 8 INR Coag RelTime (Bld) 1.6 {INR} High 1.0-1.2 [facility] Comment on above: Result Comment: Sour ce Capillary Performed By: #### 8 [id number] ####SUNIL POC [id number] [place] [address] PT POC 19.0 second(s) High 8.0-11.0 [facility] Comment on above: Performed By: #### 8 [id number] ####SUNIL POC [id number] [place] [address] PT/INR POC Orderon 8 INR Coag RelTime (Bld) Collected Normal [facility] Comment on above: Performed By: #### 8 [id number] ####SUNIL POC [id number] [place] [address] PT/INR POC Orderon 8 INR Coag RelTime (Bld) Collected Normal [facility] Comment on above: Performed By: #### 8 [id number] ####SUNIL POC [address] [place] [address] PT/INR Capillaryon 8 INR Coag RelTime (Bld) 1.9 {INR} High 1.0-1.2 [facility] Comment on above: Result Comment: Sour ce Capillary Performed By: #### 8 [id number] ####SUNIL POC [id number] [place] [address] PT POC 23.0 second(s) High 8.0-11.0 [facility] Comment on above: Performed By: #### 8 [id number] ####SUNIL POC [id number] [place] [address] PT/INR POC Orderon 8 INR Coag RelTime (Bld) Collected Normal [facility] Comment on above: Performed By: #### 8 [id number] ####SUNIL POC [address] [place] [address] PT/INR Capillaryon 8 INR Coag RelTime (Bld) 1.6 {INR} High 1.0-1.2 [facility] Comment on above: Result Comment: Sour ce Capillary Performed By: #### 8 [id number] ####SUNIL POC [address] [place] [address] PT POC 19.0 second(s) High 8.0-11.0 [facility] Comment on above: Performed By: #### 8 [id number] ####SUNIL POC [address] [place] [address] PT/INR Capillaryon 8 INR Coag RelTime (Bld) 2.5 {INR} High 1.0-1.2 [facility] Comment on above: Result Comment: Sour ce Capillary Performed By: #### 8 [id number] ####SUNIL POC [address] [place] [address] PT POC 28.0 second(s) High 8.0-11.0 [facility] Comment on above: Performed By: #### 8 [id number] ####SUNIL POC [address] [place] [address] PT/INR POC Orderon 8 INR Coag RelTime (Bld) Collected Normal [facility] Comment on above: Performed By: #### 8 [id number] ####SUNIL POC [address] [place] [address] PT/INR POC Orderon 8 INR Coag RelTime (Bld) Collected Normal [facility] Comment on above: Performed By: #### 8 [id number] ####SUNIL POC [address] [place] [address] PT/INR Capillaryon 8 INR Coag RelTime (Bld) 1.6 {INR} High 1.0-1.2 [facility] Comment on above: Result Comment: Sour ce Capillary Performed By: #### 8 [id number] ####SUNIL POC [address] [place] [address] PT POC 19.0 second(s) High 8.0-11.0 [facility] Comment on above: Performed By: #### 8 [id number] ####SUNIL POC [address] [place] [address] PTon 10-27-2017 INR Coag RelTime (PPP) 3.0 {INR} High 1.0-1.2 [facility] Comment on above: Result Comment: INR Recommended Therapeuptic Ranges: Prophylaxis/treatment of DVT and PE?2.0-3.0 Prevention of systemic embolism?.2.0-3.0 Mechanical prosthetic values?2.5-3.5 CRITICAL VALUES?.>4.0 Performed By: #### 2 [id number] ####SUNIL [facility] [address] [place] [address] Prothrombin time (PT) Coag time (PPP) 29.3 second(s) High 11.6-14.6 [facility] Comment on above: Performed By: #### 2 [id number] ####SUNIL [facility] [employer] [address] [place] [address] PTon 09-22-2017 INR Coag RelTime (PPP) 2.3 {INR} High 1.0-1.2 [facility] Comment on above: Result Comment: INR Recommended Therapeuptic Ranges: Prophylaxis/treatment of DVT and PE?2.0-3.0 Prevention of systemic embolism?.2.0-3.0 Mechanical prosthetic values?2.5-3.5 CRITICAL VALUES?.>4.0 Performed By: #### 2 [id number] ####SUNIL [facility] [employer] [address] [place] [address] Prothrombin time (PT) Coag time (PPP) 23.6 second(s) High 11.6-14.6 [facility] Comment on above: Performed By: #### 2 [id number] ####SUNIL [facility] [employer] [address] [place] [address] PT/INR Capillaryon 8 INR Coag RelTime (Bld) 2.2 {INR} High 1.0-1.2 [facility] Comment on above: Result Comment: Sour ce Capillary Performed By: #### 8 [id number] ####SUNIL POC [address] [place] [address] PT POC 25.0 second(s) High 8.0-11.0 [facility] Comment on above: Performed By: #### 8 [id number] ####SUNIL POC [address] [place] [address] PT/INR POC Orderon 8 INR Coag RelTime (Bld) Collected Normal [facility] Comment on above: Performed By: #### 8 [id number] ####SUNIL POC [address] [place] [address] PT/INR POCon 03-17-2017 INR Coag RelTime (Bld) 2.4 {INR} High 1.0-1.2 [facility] Comment on above: Performed By: #### 8 [id number] ####SUNIL POC [address] [place] [address] PT POC 28.0 second(s) High 8.0-11.0 [facility] Comment on above: Performed By: #### 8 [id number] ####SUNIL POC [address] [place] [address] PT/INR POC Orderon 8 INR Coag RelTime (Bld) Collected Normal [facility] Comment on above: Performed By: #### 8 [id number] ####SUNIL POC [address] [place] [address] PT/INR POCon 02-02-2017 INR Coag RelTime (Bld) 2.8 {INR} High 1.0-1.2 [facility] Comment on above: Performed By: #### 8 [id number] ####SUNIL POC [address] [place] [address] PT POC 32.0 second(s) High 8.0-11.0 [facility] Comment on above: Performed By: #### 8 [id number] ####SUNIL POC [address] [place] [address] PT/INR POC Orderon 7 INR Coag RelTime (Bld) Collected Normal [facility] Comment on above: Performed By: #### 8 [id number] ####SUNIL POC [address] [place] [address] Vital Signs Date Time Vital Sign Value Performing Clinician Facility 07-28-2024 12:13-0400 Body height 182.9 cm Miko Cox MD Work Phone: [facility] 07-28-2024 12:13-0400 Body mass index (BMI) [Ratio] 26.18 kg/m2 Miko Cox MD Work Phone: [facility] 07-28-2024 12:13-0400 Body weight 87.54 kg Miko Cox MD Work Phone: [facility] 07-28-2024 12:13-0400 Diastolic blood pressure 72 mm[Hg] Miko Cox MD Work Phone: [facility] 07-28-2024 12:13-0400 Heart rate 71 /min Miko Cox MD Work Phone: [facility] 07-28-2024 12:13-0400 SaO2% (BldA) [Mass fraction] 96 % Miko Cox MD Work Phone: [facility] 07-28-2024 12:13-0400 Systolic blood pressure 116 mm[Hg] Miko Cox MD Work Phone: [facility] 05-24-2024 13:43-0400 Body height 182.[address] Moi Gibson MD Work Phone: [facility] 05-24-2024 13:43-0400 Body mass index (BMI) [Ratio] 27.3 kg/m2 Dr. Moi Gibson MD Work Phone: [facility] 05-24-2024 13:43-0400 Body temperature 98.7 [degF] Dr. Moi Gibson MD Work Phone: [facility] 05-24-2024 13:43-0400 Body weight 91.[address] Moi Gibson MD Work Phone: [facility] 05-24-2024 13:43-0400 Diastolic blood pressure 60 mm[Hg] Dr. Moi Gibson MD Work Phone: [facility] 05-24-2024 13:43-0400 Heart rate 80 /min Dr. Moi Gibson MD Work Phone: [facility] 05-24-2024 13:43-0400 Respiratory rate 16 /min Dr. Moi Gibson MD Work Phone: [facility] 05-24-2024 13:43-0400 SaO2% (BldA) [Mass fraction] 96 % Dr. Moi Gibson MD Work Phone: [facility] 05-24-2024 13:43-0400 Systolic blood pressure 110 mm[Hg] Dr. Moi Gibson MD Work Phone: [facility] 02-24-2024 12:52-0500 Body height 182.[address] Moi Gibson MD Work Phone: [facility] 02-24-2024 12:52-0500 Body mass index (BMI) [Ratio] 28.5 kg/m2 Dr. Moi Gibson MD Work Phone: [facility] 02-24-2024 12:52-0500 Body temperature 98 [degF] Dr. Moi Gibson MD Work Phone: [facility] 02-24-2024 12:52-0500 Body weight 95.[address] Moi Gibson MD Work Phone: [facility] 02-24-2024 12:52-0500 Diastolic blood pressure 62 mm[Hg] Dr. Moi Gibson MD Work Phone: [facility] 02-24-2024 12:52-0500 Heart rate 70 /min Dr. Moi Gibson MD Work Phone: [facility] 02-24-2024 12:52-0500 Respiratory rate 16 /min Dr. Moi Gibson MD Work Phone: [facility] 02-24-2024 12:52-0500 SaO2% (BldA) [Mass fraction] 98 % Dr. Moi Gibson MD Work Phone: [facility] 02-24-2024 12:52-0500 Systolic blood pressure 120 mm[Hg] Dr. Moi Gibson MD Work Phone: [facility] 01-21-2024 08:06-0500 Body height 182.9 cm Iraenma Pearsoner [employer] Work Phone: [facility] 01-21-2024 08:06-0500 Body mass index (BMI) [Ratio] 28.62 kg/m2 Ira Keiry [employer] Work Phone: [facility] 01-21-2024 08:06-0500 Body weight 95.71 kg Ira Keiry [employer] Work Phone: [facility] 01-21-2024 08:06-0500 Diastolic blood pressure 80 mm[Hg] Ira Keiry [employer] Work Phone: [facility] 01-21-2024 08:06-0500 Heart rate 78 /min Ira Keiry [employer] Work Phone: [facility] 01-21-2024 08:06-0500 SaO2% (BldA) [Mass fraction] 96 % Ira Keiry [employer] Work Phone: [facility] 01-21-2024 08:06-0500 Systolic blood pressure 127 mm[Hg] Ira Keiry [employer] Work Phone: [facility] 12-29-2023 12:57-0500 Diastolic blood pressure 72 mm[Hg] Pennie Galvez [employer] Work Phone: [facility] 12-29-2023 12:57-0500 Systolic blood pressure 135 mm[Hg] Pennie Galvez [employer] Work Phone: [facility] 12-29-2023 12:53-0500 Body height 182.9 cm Pennie Galvez [employer] Work Phone: [facility] 12-29-2023 12:53-0500 Body mass index (BMI) [Ratio] 28.62 kg/m2 Pennie Galvez [employer] Work Phone: [facility] 12-29-2023 12:53-0500 Body weight 95.71 kg Pennie Galvez [employer] Work Phone: [facility] 12-29-2023 12:53-0500 Heart rate 72 /min Pennie Galvez [employer] Work Phone: [facility] 12-29-2023 12:53-0500 SaO2% (BldA) [Mass fraction] 98 % Pennie Galvez [employer] Work Phone: [facility] 07-22-2023 09:14-0400 Body height 182.9 cm Christina Branham [employer] Work Phone: [facility] 07-22-2023 09:14-0400 Body mass index (BMI) [Ratio] 30.45 kg/m2 Christina Branham [employer] Work Phone: [facility] 07-22-2023 09:14-0400 Body weight 101.83 kg Christina Branham [employer] Work Phone: [facility] 07-22-2023 09:14-0400 Diastolic blood pressure 79 mm[Hg] Christina Branham [employer] Work Phone: [facility] 07-22-2023 09:14-0400 Heart rate 80 /min Christinamatilde Branham [employer] Work Phone: [facility] 07-22-2023 09:14-0400 Respiratory rate 16 /min Christina Branham [employer] Work Phone: [facility] 06-06-2024 09:14-0400 SaO2% (BldA) [Mass fraction] 94 % Christina Branham [employer] Work Phone: [facility] 07-22-2023 09:14-0400 Systolic blood pressure 150 mm[Hg] Christina Branham [employer] Work Phone: [facility] 07-06-2023 15:30-0400 Diastolic blood pressure 79 mm[Hg] Ashley Ream [employer] Work Phone: [facility] 07-06-2023 15:30-0400 Heart rate 76 /min Ashley Ream [employer] Work Phone: [facility] 07-06-2023 15:30-0400 Systolic blood pressure 162 mm[Hg] Ashley Ream [employer] Work Phone: [facility] 07-06-2023 15:24-0400 Body height 182.9 cm Ashley Ream [employer] Work Phone: [facility] 07-06-2023 15:24-0400 Body mass index (BMI) [Ratio] 29.7 kg/m2 Ashley Ream [employer] Work Phone: [facility] 07-06-2023 15:24-0400 Body weight 99.34 kg Ashley Ream [employer] Work Phone: [facility] 07-06-2023 15:24-0400 SaO2% (BldA) [Mass fraction] 95 % Ashley Ream [employer] Work Phone: [facility] 05-24-2023 12:57-0400 Body height 182.[address] Moi Gibson Work Phone: [facility] 05-24-2023 12:57-0400 Body mass index (BMI) [Ratio] 29.9 kg/m2 Dr. Moi Gibson Work Phone: [facility] 05-24-2023 12:57-0400 Body temperature 99.3 [degF] Dr. Moi Gibson Work Phone: [facility] 05-24-2023 12:57-0400 Body weight 100.[address] Moi Gibson Work Phone: [facility] 05-24-2023 12:57-0400 Diastolic blood pressure 76 mm[Hg] Dr. Moi Gibson Work Phone: [facility] 05-24-2023 12:57-0400 Heart rate 73 /min Dr. Moi Gibson Work Phone: [facility] 05-24-2023 12:57-0400 Respiratory rate 14 /min Dr. Moi Gibson Work Phone: [facility] 05-24-2023 12:57-0400 SaO2% (BldA) [Mass fraction] 96 % Dr. Moi Gibson Work Phone: [facility] 05-24-2023 12:57-0400 Systolic blood pressure 124 mm[Hg] Dr. Moi Gibson Work Phone: [facility] 04-12-2023 13:37-0500 Body height 182.[address] Moi Gibson Work Phone: [facility] 04-12-2023 13:37-0500 Body mass index (BMI) [Ratio] 30.7 kg/m2 Dr. Moi Gibson Work Phone: [facility] 04-12-2023 13:37-0500 Body temperature 99.2 [degF] Dr. Moi Gibson Work Phone: [facility] 04-12-2023 13:37-0500 Body weight 102.[address] Moi Gibson Work Phone: [facility] 04-12-2023 13:37-0500 Diastolic blood pressure 72 mm[Hg] Dr. Moi Gibson Work Phone: [facility] 04-12-2023 13:37-0500 Heart rate 64 /min Dr. Moi Gibson Work Phone: [facility] 04-12-2023 13:37-0500 Respiratory rate 14 /min Dr. Moi Gibson Work Phone: [facility] 04-12-2023 13:37-0500 SaO2% (BldA) [Mass fraction] 97 % Dr. Moi Gibson Work Phone: [facility] 04-12-2023 13:37-0500 Systolic blood pressure 126 mm[Hg] Dr. Moi Gibson Work Phone: [facility] 02-26-2023 07:32-0500 Body temperature 97.6 [degF] COLLISION REPAIRER-C Daphne Ferullo Work Phone: [facility] 02-26-2023 07:32-0500 Body weight 103.98 kg [employer]LLISION REPAIRER-C Daphne Ferullo Work Phone: [facility] 02-26-2023 07:32-0500 Diastolic blood pressure 62 mm[Hg] COLLISION REPAIRER[employer]C Daphne Ferullo Work Phone: [facility] 02-26-2023 07:32-0500 Heart rate 83 /min COLLISION REPAIRER-C Daphne Ferullo Work Phone: [facility] 02-26-2023 07:32-0500 Respiratory rate 16 /min COLLISION REPAIRER[employer]C Daphne Ferullo Work Phone: [facility] 02-26-2023 07:32-0500 SaO2% (BldA) [Mass fraction] 96 % COLLISION REPAIRER-C Daphne Ferullo Work Phone: [facility] 02-26-2023 07:32-0500 Systolic blood pressure 118 mm[Hg] COLLISION REPAIRER-C Daphne Ferullo Work Phone: [facility] 02-01-2023 14:34-0500 Body height 182.9 cm Christina Branham CNP Work Phone: [facility] 02-01-2023 14:34-0500 Body mass index (BMI) [Ratio] 31.33 kg/m2 Christina Branham [employer] Work Phone: [facility] 02-01-2023 14:34-0500 Body weight 104.78 kg Christina Branham [employer] Work Phone: [facility] 02-01-2023 14:34-0500 Diastolic blood pressure 78 mm[Hg] Christina Branham [employer] Work Phone: [facility] 02-01-2023 14:34-0500 Heart rate 65 /min Christina rBanham [employer] Work Phone: [facility] 02-01-2023 14:34-0500 Respiratory rate 16 /min Christina Branham [employer] Work Phone: [facility] 02-01-2023 14:34-0500 SaO2% (BldA) [Mass fraction] 98 % Christina Branham [employer] Work Phone: [facility] 02-01-2023 14:34-0500 Systolic blood pressure 145 mm[Hg] Christina Branham [employer] Work Phone: [facility] 01-25-2023 11:36-0500 Body temperature 97.59 [degF] Shahrzad Stillwagon DO Work Phone: [facility] 01-25-2023 11:36-0500 Diastolic blood pressure 66 mm[Hg] Shahrzad Stillwagon DO Work Phone: [facility] 01-25-2023 11:36-0500 Heart rate 73 /min Shahrzad Stillwagon DO Work Phone: [facility] 01-25-2023 11:36-0500 Respiratory rate 16 /min Shahrzad Stillwagon DO Work Phone: [facility] 01-25-2023 11:36-0500 SaO2% (BldA) [Mass fraction] 94 % Shahrzad Stillwagon DO Work Phone: [facility] 01-25-2023 11:36-0500 Systolic blood pressure 136 mm[Hg] Shahrzad Stillwagon DO Work Phone: [facility] 01-25-2023 03:00-0500 Body mass index (BMI) [Ratio] 31.45 kg/m2 Shahrzad Stillwagon DO Work Phone: [facility] 01-25-2023 03:00-0500 Body weight 105.2 kg Shahrzad Lambn DO Work Phone: [facility] 01-15-2023 16:53-0500 Body height 182.9 cm Shahrzad Lambn DO Work Phone: [facility] 01-15-2023 11:21-0500 Body temperature 97.7 [degF] Sarah Ondecker DO Work Phone: [facility] 01-15-2023 11:21-0500 Diastolic blood pressure 72 mm[Hg] Sarah Ondecker DO Work Phone: [facility] 01-15-2023 11:21-0500 Heart rate 58 /min Sarah Ondecker DO Work Phone: [facility] 01-15-2023 11:21-0500 Respiratory rate 16 /min Sarah Ondecker DO Work Phone: [facility] 01-15-2023 11:21-0500 SaO2% (BldA) [Mass fraction] 95 % Sarah Ondecker DO Work Phone: [facility] 01-15-2023 11:21-0500 Systolic blood pressure 156 mm[Hg] Sarah Ondecker DO Work Phone: [facility] 01-12-2023 04:00-0500 Body mass index (BMI) [Ratio] 31.35 kg/m2 Sarah Ondecker DO Work Phone: [facility] 01-12-2023 04:00-0500 Body weight 107.8 kg Sarah Ondecker DO Work Phone: [facility] 01-06-2023 06:00-0500 Body height 185.4 cm Sarah Ondecker DO Work Phone: [facility] 01-05-2023 13:27-0500 Diastolic blood pressure 83 mm[Hg] Ira Ricci CNP Work Phone: [facility] 01-05-2023 13:27-0500 Heart rate 66 /min Ira Ricci CNP Work Phone: [facility] 01-05-2023 13:27-0500 Systolic blood pressure 154 mm[Hg] Ira Ricci CNP Work Phone: [facility] 01-05-2023 13:18-0500 Body height 182.9 cm Ira Ricci CNP Work Phone: [facility] 01-05-2023 13:18-0500 Body mass index (BMI) [Ratio] 33.36 kg/m2 Ira Ricci CNP Work Phone: [facility] 01-05-2023 13:18-0500 Body weight 111.58 kg Ira Ricci CNP Work Phone: [facility] 01-05-2023 13:18-0500 SaO2% (BldA) [Mass fraction] 95 % Ira Ricci CNP Work Phone: [facility] 04-15-2022 09:32-0500 Diastolic blood pressure 76 mm[Hg] Shmuel Villalpando MD Work Phone: [facility] 04-15-2022 09:32-0500 Systolic blood pressure 145 mm[Hg] Shmuel Villalpando MD Work Phone: [facility] 04-15-2022 09:29-0500 Body mass index (BMI) [Ratio] 34.42 kg/m2 Shmuel Villalpando MD Work Phone: [facility] 04-15-2022 09:29-0500 Body weight 115.12 kg Shmuel Villalpando MD Work Phone: [facility] 04-15-2022 09:29-0500 Heart rate 85 /min Shmuel Villalpando MD Work Phone: [facility] 04-15-2022 09:29-0500 SaO2% (BldA) [Mass fraction] 94 % Shmuel Villalpando MD Work Phone: [facility] 03-13-2022 07:54-0500 Body temperature 97.7 [degF] Young Eid MD Work Phone: [facility] 03-13-2022 07:54-0500 Diastolic blood pressure 88 mm[Hg] Young Eid MD Work Phone: [facility] 03-13-2022 07:54-0500 Heart rate 68 /min Young Eid MD Work Phone: [facility] 03-13-2022 07:54-0500 Respiratory rate 18 /min Young Eid MD Work Phone: [facility] 03-13-2022 07:54-0500 SaO2% (BldA) [Mass fraction] 96 % Young Eid MD Work Phone: [facility] 03-13-2022 07:54-0500 Systolic blood pressure 153 mm[Hg] Young Eid MD Work Phone: [facility] 03-09-2022 14:13-0500 Body height 182.9 cm Young Eid MD Work Phone: [facility] 03-09-2022 14:13-0500 Body mass index (BMI) [Ratio] 34.2 kg/m2 Young Eid MD Work Phone: [facility] 03-09-2022 14:13-0500 Body weight 114.4 kg Young Eid MD Work Phone: [facility] 12-24-2021 11:43-0500 Body height 182.9 cm Vanda Muir MD Work Phone: [facility] 12-24-2021 11:43-0500 Body mass index (BMI) [Ratio] 33.5 kg/m2 Vanda Muir MD Work Phone: [facility] 12-24-2021 11:43-0500 Body weight 112.04 kg Vanda Muir MD Work Phone: [facility] 12-24-2021 11:43-0500 Diastolic blood pressure 79 mm[Hg] Vanda Muir MD Work Phone: [facility] 12-24-2021 11:43-0500 Heart rate 50 /min Vanda Muir MD Work Phone: [facility] 12-24-2021 11:43-0500 SaO2% (BldA) [Mass fraction] 97 % Vanda Muir MD Work Phone: [facility] 12-24-2021 11:43-0500 Systolic blood pressure 130 mm[Hg] Vanda Muir MD Work Phone: [facility] 10-17-2021 09:29-0400 Diastolic blood pressure 75 mm[Hg] Shmuel Villalpando MD Work Phone: [facility] 10-17-2021 09:29-0400 Heart rate 60 /min Shmuel Villalpando MD Work Phone: [facility] 10-17-2021 09:29-0400 Systolic blood pressure 154 mm[Hg] Shmuel Villalpando MD Work Phone: [facility] 10-17-2021 09:18-0400 Body height 182.9 cm Shmuel Villalpando MD Work Phone: [facility] 10-17-2021 09:18-0400 Body mass index (BMI) [Ratio] 33.5 kg/m2 Shmuel Villalpando MD Work Phone: [facility] 10-17-2021 09:18-0400 Body weight 112.04 kg Shmuel Villalpando MD Work Phone: [facility] 10-17-2021 09:18-0400 SaO2% (BldA) [Mass fraction] 96 % Shmuel Villalpando MD Work Phone: [facility] 09-25-2021 12:34-0400 Body height 182.9 cm Ira Meyers [employer] Work Phone: [facility] 09-25-2021 12:34-0400 Body mass index (BMI) [Ratio] 33.77 kg/m2 Ira Meyers [employer] Work Phone: [facility] 09-25-2021 12:34-0400 Body temperature 98.1 [degF] Ira Meyers [employer] Work Phone: [facility] 09-25-2021 12:34-0400 Body weight 112.95 kg Ira Meyers [employer] Work Phone: [facility] 09-25-2021 12:34-0400 Diastolic blood pressure 67 mm[Hg] Ira Meyers [employer] Work Phone: [facility] 09-25-2021 12:34-0400 Heart rate 52 /min Ira Meyers [employer] Work Phone: [facility] 09-25-2021 12:34-0400 Respiratory rate 12 /min Ira Meyers [employer] Work Phone: [facility] 09-25-2021 12:34-0400 SaO2% (BldA) [Mass fraction] 95 % Ira Meyers [employer] Work Phone: [facility] 09-25-2021 12:34-0400 Systolic blood pressure 114 mm[Hg] Ira Meyers [employer] Work Phone: [facility] 09-02-2021 12:40-0400 Body mass index (BMI) [Ratio] 34.99 kg/m2 Ira Meyers [employer] Work Phone: [facility] 09-02-2021 12:40-0400 Body temperature 97.3 [degF] Ira Meyers [employer] Work Phone: [facility] 09-02-2021 12:40-0400 Body weight 117.03 kg Ira Meyers [employer] Work Phone: [facility] 09-02-2021 12:40-0400 Diastolic blood pressure 67 mm[Hg] Ira Meyers [employer] Work Phone: [facility] 09-02-2021 12:40-0400 Heart rate 59 /min Ira Meyers [employer] Work Phone: [facility] 09-02-2021 12:40-0400 SaO2% (BldA) [Mass fraction] 93 % Ira Meyers [employer] Work Phone: [facility] 09-02-2021 12:40-0400 Systolic blood pressure 123 mm[Hg] Ira Meyers [employer] Work Phone: [facility] 07-24-2021 09:58-0400 Body height 182.9 cm Luis Beasley MD Work Phone: [facility] 07-24-2021 09:58-0400 Body mass index (BMI) [Ratio] 34.86 kg/m2 Luis Beasley MD Work Phone: [facility] 07-24-2021 09:58-0400 Body temperature 97.81 [degF] Luis Beasley MD Work Phone: [facility] 07-24-2021 09:58-0400 Body weight 116.57 kg Luis Beasley MD Work Phone: [facility] 07-24-2021 09:58-0400 Diastolic blood pressure 87 mm[Hg] Luis Beasley MD Work Phone: [facility] 07-24-2021 09:58-0400 Heart rate 65 /min Luis Beasley MD Work Phone: [facility] 07-24-2021 09:58-0400 Respiratory rate 12 /min Luis Beasley MD Work Phone: [facility] 07-24-2021 09:58-0400 SaO2% (BldA) [Mass fraction] 94 % Luis Beasley MD Work Phone: [facility] 07-24-2021 09:58-0400 Systolic blood pressure 117 mm[Hg] Luis Beasley MD Work Phone: [facility] 07-07-2021 10:57-0400 Body height 182.9 cm Kyle Mccarthy MD Work Phone: [facility] 07-07-2021 10:57-0400 Body mass index (BMI) [Ratio] 34.86 kg/m2 Kyle Mccarthy MD Work Phone: [facility] 07-07-2021 10:57-0400 Body weight 116.57 kg Kyle Mccarthy MD Work Phone: [facility] Comment on above: [employer] 07-07-2021 10:57-0400 Diastolic blood pressure 77 mm[Hg] Kyle Mccarthy MD Work Phone: [facility] 07-07-2021 10:57-0400 Heart rate 69 /min Kyle Mccarthy MD Work Phone: [facility] 07-07-2021 10:57-0400 SaO2% (BldA) [Mass fraction] 96 % Kyle Mccarthy MD Work Phone: [facility] 07-07-2021 10:57-0400 Systolic blood pressure 134 mm[Hg] Kyle Mccarthy MD Work Phone: [facility] 06-16-2021 10:50-0400 Diastolic blood pressure 91 mm[Hg] Shmuel Villalpando MD Work Phone: [facility] 06-16-2021 10:50-0400 Heart rate 62 /min Shmuel Villalpando MD Work Phone: [facility] 06-16-2021 10:50-0400 Systolic blood pressure 155 mm[Hg] Shmuel Villalpando MD Work Phone: [facility] 06-16-2021 10:49-0400 Body mass index (BMI) [Ratio] 36.16 kg/m2 Shmuel Villalpando MD Work Phone: [facility] 06-16-2021 10:49-0400 Body weight 121.11 kg Shmuel Villalpando MD Work Phone: [facility] 06-16-2021 10:49-0400 SaO2% (BldA) [Mass fraction] 97 % Shmuel Villalpando MD Work Phone: [facility] 03-31-2021 16:44-0500 Body height 182.8 cm Naveen Rasmussen Other Phone: [facility] 03-31-2021 16:44-0500 Body temperature 99.14 [degF] Naveen Jangfamilia Other Phone: [facility] 03-31-2021 16:44-0500 Diastolic blood pressure 84 mm[Hg] Naveen Lainefamilia Other Phone: [facility] 03-31-2021 16:44-0500 Heart rate 86 /min Naveen Lainefamilia Other Phone: [facility] 03-31-2021 16:44-0500 Respiratory rate 16 /min Naveen Willluke Other Phone: [facility] 03-31-2021 16:44-0500 SaO2% (BldA) [Mass fraction] 95 % Naveen Solisluke Other Phone: [facility] 03-31-2021 16:44-0500 Systolic blood pressure 162 mm[Hg] Naveen Willluke Other Phone: [facility] 01-06-2021 16:17-0500 Body temperature 97.9 [degF] Chair Spec Inf [facility] 01-06-2021 16:17-0500 Diastolic blood pressure 92 mm[Hg] Chair [facility] Inf [facility] 01-06-2021 16:17-0500 Heart rate 76 /min Chair [facility] 01-06-2021 16:17-0500 SaO2% (BldA) [Mass fraction] 95 % [facility] 01-06-2021 16:17-0500 Systolic blood pressure 180 mm[Hg] Chair [facility] Inf [facility] 08-30-2020 14:27-0400 Diastolic blood pressure 78 mm[Hg] Shmuel Villalpando MD Work Phone: [facility] 08-30-2020 14:27-0400 Systolic blood pressure 140 mm[Hg] Shmuel Villalpando MD Work Phone: [facility] 08-30-2020 13:27-0400 Body weight 121.11 kg Shmuel Villalpando MD Work Phone: [facility] 08-30-2020 13:27-0400 Heart rate 56 /min Shmuel Villalpando MD Work Phone: [facility] 08-30-2020 13:27-0400 SaO2% (BldA) [Mass fraction] 94 % Shmuel Villalpando MD Work Phone: [facility] Encounters Encounter Date Encounter Type Care Provider Facility Start: 08-07-2024 Evaluation and management of inpatient [facility] Start: 07-28-2024 End: 07-28-2024 Office outpatient visit 25 minutes Miko Cox MD Work Phone: [facility] Comment on above: S/P AVR (aortic valv e replacement) (Primary Dx); PAF (paroxysmal atrial fibrillation) (HCC); History of CVA (cerebrovascular accident); Type 2 diabetes mellitus without complication, without long-term current use of insulin (HCC); Coronary artery disease involving [place] coronary artery of [place] heart, unspecified whether angina present Start: 07-28-2024 End: 07-28-2024 ambulatory MIKO COX [facility] Start: 07-17-2024 End: 07-17-2024 Emergency department patient visit PHYSICIAN [facility] Start: 07-04-2024 ambulatory Moi Gibson Facility :[facility] Start: 06-21-2024 End: 06-21-2024 ambulatory SILVANA CABALLERO II Facility:[facility] Start: 06-21-2024 End: 06-21-2024 Patient encounter procedure Silvana Caballero OD Work Phone: Optometry Comment on above: Type 2 diabetes tac[place] itus without retinopathy (HCC) (Primary Dx); Vitreous floaters of both eyes; Corneal scarring; Pseudophakia, both eyes; Hyperopia of both eyes; Regular astigmatism of both eyes; Presbyopia Start: 05-29-2024 End: 05-29-[address] Moi Gibson MD Work Phone: [facility] Work Phone: Start: 05-29-2024 End: 05-29-[address] Uriel Harvey MD -Laboratory, Specimen Work Phone: Start: 05-29-2024 End: 05-29-2024 ambulatory Moi Gibson Facility:[facility] Start: 05-24-2024 End: 05-24-[address] Moi Gibson MD Work Phone: [facility] Work Phone: Start: 05-24-2024 End: 05-24-[address] Moi Gibson MD -Laboratory, [facility] Start: 05-24-2024 End: 05-24-[address] Moi Gibson MD -[facility] Work Phone: Start: 05-24-2024 End: 05-24-2024 ambulatory Moi Gibson Facility:[facility] Start: 05-24-2024 End: 05-24-2024 ambulatory Moi Gibson Facility:[facility] Start: 05-11-2024 End: 05-11-[address] Moi Gibson MD Work Phone: [facility] Work Phone: Start: 05-11-2024 End: 05-11-2024 Patient encounter procedure Tammy Epstein -Laboratory, [place] Work Phone: Start: 05-11-2024 End: 05-11-2024 ambulatory Tammy Epstein Facility:[facility] Start: 04-19-2024 ambulatory Moi Gibson Facility :[facility] Start: 02-24-2024 End: 02-24-[address] Moi Gibson MD -Laboratory, [facility] Start: 02-24-2024 End: 02-24-[address] 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 Start: 01-21-2024 ambulatory IRA BUSTAMANTE KEIRY [facility] Start: 01-20-2024 End: 01-20-2024 Orders Only Vanda Muir MD Work Phone: [facility] Comment on above: Atrial fibrillation, unspecified type (HCC) (Primary Dx) Start: 12-29-2023 End: 12-29-2023 Office outpatient visit 25 minutes Pennie Galvez DRAFTER TOPOGRAPHICAL Work Phone: [facility] Comment on above: Leg swelling (Primar y Dx); Aortic valve stenosis, severe Start: 12-29-2023 End: 12-29-2023 ambulatory PENNIE GALVEZ [facility] [place] [facility] Start: 11-24-2023 End: 11-24-20[facility] Start: 11-24-2023 End: 11-24-2023 ambulatory Moi Pierson Facility:[facility] Start: 10-15-2023 End: 10-15-2023 ambulatory [facility] Start: 10-13-2023 End: 10-13-2023 ambulatory [facility] Start: 10-07-2023 End: 10-11-2023 ambulatory [facility] Start: 10-07-2023 End: 10-07-2023 Clinical Support Daphne Fischer RN [facility] Comment on above: Atrial fibrillation, unspecified type (HCC) (Primary Dx); 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 Start: 08-23-2023 End: 08-23-2023 ambulatory Moi Gibson Facility:[facility] Start: 08-23-2023 End: 08-23-2023 ambulatory Moi Gibson Facility:[facility] Start: 07-22-2023 End: 07-22-2023 Office outpatient visit 25 minutes Christina Branham DRAFTER TOPOGRAPHICAL Work Phone: [facility] Neurological Physicians Comment on above: Ischemic stroke (HCC ) (Primary Dx) Start: 07-06-2023 End: 07-06-2023 Office outpatient visit 15 minutes Ashley Townsend DRAFTER TOPOGRAPHICAL Work Phone: [facility] Comment on above: Paroxysmal atrial fi brillation (HCC) (Primary Dx); 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 Moi Gibson Work Phone: [facility] Work Phone: Start: 05-24-2023 End: 05-24-[address] Moi Gibson Work Phone: [facility], [facility] Start: 05-24-2023 End: 05-24-[address] Moi Gibson Work Phone: [facility] Work Phone: Start: 04-13-2023 End: 04-13-2023 Clinical Support Mireille Narvaez RN [facility] Comment on above: group home current us e of antiarrhythmic drug Start: 04-12-2023 End: 04-12-[address] Moi Gibson Work Phone: [facility] Work Phone: Start: 04-12-2023 End: 04-12-[address] [facility] Start: 04-12-2023 End: 04-12-[address] Moi Gibson Work Phone: [facility] Work Phone: Start: 02-26-2023 End: 02-26-2023 ambulatory COLLISION REPAIRER-C Daphne Mckee Work Phone: [facility] Work Phone: Start: 02-26-2023 End: 02-26-2023 Patient encounter procedure COLLISION REPAIRER-C Daphne Mckee [facility] Start: 02-26-2023 End: 02-26-2023 Patient encounter procedure COLLISION REPAIRER-C Daphnejose Tancarloso Work Phone: [facility] Work Phone: Start: 02-17-2023 Documentation procedure Constantin Ramirez PT [facility] Comment on above: Physical Therapy; Ne uro Start: 02-03-2023 End: 02-03-2023 ambulatory Vidhi Maldonado CREATIVE INTERN [facility] Comment on above: Acute cerebrovascula r accident (CVA) (HCC) (Primary Dx); 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); Anomic aphasia; Cognitive communication deficit; Memory deficit; Oropharyngeal dysphagia Start: 02-03-2023 End: 02-03-2023 Coordination of care plan Shahrzad Odom DO Work Phone: [facility] Comment on above: Ischemic stroke (HCC ) (Primary Dx); Lack of coordination due to acute cerebrovascular accident (CVA) (HCC); Unsteadiness on feet Lack of coordination due to acute cerebrovascular accident (CVA) (HCC) (Primary Dx); Unsteadiness on feet; Alteration in performance of activities of daily living Start: 02-02-2023 Documentation procedure Destin leonardo OT [facility] Occupational [facility] Comment on above: Occupational Therapy ; Neuro Start: 02-01-2023 End: 02-01-2023 Office outpatient visit 40 minutes Christina Branham CNP Work Phone: [facility]rological Phys[facility] Comment on above: Ischemic stroke (HCC ) (Primary Dx); Paroxysmal atrial fibrillation (HCC) Start: 01-27-2023 End: 01-27-2023 ambulatory Shahrzad Odom DO Work Phone: [facility] Speech Therapy Comment on above: Acute cerebrovascula r accident (CVA) (HCC) (Primary Dx); 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); Anomic aphasia; Cognitive communication deficit; Memory deficit; Oropharyngeal dysphagia Ischemic stroke (HCC ) (Primary Dx); Acute cerebrovascular accident (CVA) (HCC); Unsteadiness on feet Start: 01-27-2023 End: 01-27-2023 Coordination of care plan Shahrzad Odom DO Work Phone: [facility] Occupational Therapy Comment on above: Lack of coordination due to acute cerebrovascular accident (CVA) (HCC) (Primary Dx); Acute cerebrovascular accident (CVA) (HCC); Unsteadiness on feet; Alteration in performance of activities of daily living Start: 01-15-2023 End: 01-25-2023 Evaluation and management of inpatient Shahrzad Odom DO Work Phone: [facility] Start: 01-06-2023 ambulatory RAÚL BALTAZAR [facility] Start: 01-06-2023 End: 01-15-2023 Evaluation and management of inpatient [facility] Start: 01-06-2023 Critical care ill/injured patient init 30-74 min Jeffry Arreaga MD Work Phone: [facility] Work Phone: Start: 01-06-2023 End: 01-15-2023 Evaluation and management of inpatient Jeffry Arreaga MD Work Phone: [facility] Integrated Stroke [facility] Start: 01-05-2023 End: 01-05-2023 Office outpatient visit 15 minutes Ira Bustamante Keiry HALL Work Phone: [facility] Comment on above: Paroxysmal atrial fi brillation (HCC) Start: 01-04-2023 Orders Only Leonidas Nunes RN [facility] Comment on above: 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 (Primary Dx) Start: 10-01-2022 End: 10-01-2022 Clinical Support Leonidas Nunes RN [facility] Comment on above: PAF (paroxysmal atri al fibrillation) (HCC) group home current us e of antiarrhythmic drug (Primary Dx) Start: 05-07-2022 End: 05-07-2022 Patient encounter procedure Gerardo Roe MD Work Phone: Ophthalmology Comment on above: Type 2 diabetes tac[place] itus without retinopathy (HCC) (Primary Dx); Vitreous floaters of both eyes; Pseudophakia of both eyes Start: 04-15-2022 End: 04-15-2022 Office outpatient visit 25 minutes Shmuel Villalpando MD Work Phone: [facility] Comment on above: Paroxysmal atrial fi brillation (HCC) (Primary Dx); Primary hypertension; Hyperlipidemia, unspecified hyperlipidemia type; Coronary artery disease involving [place] coronary artery of [place] heart, unspecified whether angina present; Nonrheumatic aortic valve stenosis; Aortic stenosis, severe; Type 2 diabetes mellitus without complication, without long-term current use of insulin (HCC); NAJMA (obstructive sleep apnea); Visit for monitoring Tikosyn therapy Start: 03-13-2022 Refill Leonidas Nunes RN [facility] Comment on above: Medication Refill Start: 03-09-2022 End: 03-13-2022 Evaluation and management of inpatient Young Eid MD Work Phone: [facility] Intermediate Start: 02-13-[address] Naveen Rasmussen Facility:[id number] Start: 12-24-2021 End: 12-24-2021 Office outpatient visit 40 minutes Shmuel Villalpando MD Work Phone: [facility] Comment on above: Paroxysmal atrial fi brillation (HCC); PAF (paroxysmal atrial fibrillation) (HCC) Start: 12-22-2021 Orders Only Leonidas Nunes RN [facility] Comment on above: PAF (paroxysmal atri al fibrillation) (HCC) (Primary Dx) Start: 11-17-2021 Orders Only Juliana Bethea RN [facility] Phys[facility] Comment on above: Paroxysmal atrial fi brillation (HCC) (Primary Dx) Start: 11-05-[address] Naveen Rasmussen Facility:[id number] Start: 11-03-[address] Naveen Rasmussen Facility:[id number] Start: 10-31-[address] Naveen Rasmussen Facility:[id number] Start: 10-29-[address] Naveen Rasmussen Facility:[id number] Start: 10-27-[address] Naveen Rasmussen Facility:[id number] Start: 10-24-2021 ambulatory Luis Mort on Beasley Facility:[id number] Start: 10-22-2021 ambulatory Luis Mort on Beasley Facility:[id number] Start: 10-17-2021 End: 10-17-2021 Office outpatient visit 40 minutes Shmuel Villalpando MD Work Phone: [facility] Comment on above: Paroxysmal atrial fi brillation (HCC) (Primary Dx); S/P AVR; Coronary artery disease involving [place] coronary artery of [place] heart, unspecified whether angina present; Aortic stenosis, severe Start: 10-15-2021 ambulatory Luis Mort on Beasley Facility:[id number] Start: 10-13-2021 ambulatory Luis Mort on Beasley Facility:[id number] Start: 10-10-2021 ambulatory Luis Mort on Beasley Facility:[id number] Start: 09-25-2021 End: 09-25-2021 Postop follow up visit related to original px Ira Meyers CNP Work Phone: [facility] V[facility] Sur[facility] Comment on above: Aortic stenosis, sev ere (Primary Dx); Coronary artery disease involving [place] coronary artery of [place] heart, unspecified whether angina present; Type 2 diabetes mellitus without complication, without long-term current use of insulin (HCC) Start: 09-22-2021 Documentation procedure Jessica Daniel RN [facility] Pulmonary Rehab Comment on above: Phase II Cardiac Cecily ab Start: 09-02-2021 End: 09-02-2021 Postop follow up visit related to original px Ira Meyers DRAFTER TOPOGRAPHICAL Work Phone: [facility] Comment on above: Coronary artery dise ase involving [place] coronary artery of [place] heart, unspecified whether angina present (Primary Dx); Status post coronary artery bypass graft; S/P aortic valve replacement Start: 08-25-2021 Documentation procedure Rosa Robins [facility] Start: 08-25-2021 Patient encounter procedure Charan Russ Work Phone: [facility] Start: 08-25-2021 Progress Note Charan Russ Work Phone: [employer] Start: 08-18-2021 Refill Shmuel Villalpando MD Work Phone: [facility] Comment on above: Medication Refill Start: 07-29-2021 Orders Only Ashley Watkins RN [facility] Comment on above: Coronary artery dise ase involving [place] coronary artery of [place] heart, unspecified whether angina present (Primary Dx); Atrial fibrillation, unspecified type (HCC); Nonrheumatic aortic valve stenosis Start: 07-24-2021 Documentation procedure Ashley celis RN [facility] Start: 07-24-2021 End: 07-24-2021 Office outpatient new 45 minutes Luis Beasley MD Work Phone: [facility], [facility] Sur[facility] Comment on above: Coronary artery dise ase involving [place] coronary artery of [place] heart, unspecified whether angina present (Primary Dx); Aortic valve stenosis, etiology of cardiac valve disease unspecified; Longstanding persistent atrial fibrillation (HCC); Primary hypertension Start: 07-09-2021 Orders Only Mireya Randall RN [facility] Comment on above: Aortic valve stenosi s, etiology of cardiac valve disease unspecified (Primary Dx); Coronary artery disease involving [place] coronary artery of [place] heart, unspecified whether angina present Start: 07-07-2021 End: 07-07-2021 Office outpatient new 45 minutes Kyle Mccarthy MD Work Phone: [facility] Comment on above: Aortic valve stenosi s, etiology of cardiac valve disease unspecified Start: 06-27-2021 Orders Only Anastacia otero MD [facility] Start: 06-24-2021 Orders Only Mireya Randall RN [facility] Comment on above: Drug therapy (Primar y Dx) Start: 06-23-2021 Orders Only Mireya Randall RN [facility] Comment on above: Aortic valve stenosi s, etiology of cardiac valve disease unspecified (Primary Dx) Start: 06-16-2021 Orders Only Mireya Randall RN [facility] Comment on above: Aortic valve disease (Primary Dx); Aortic valve stenosis, etiology of cardiac valve disease unspecified Start: 06-16-2021 End: 06-16-2021 Office outpatient visit 40 minutes Shmuel Villalpando MD Work Phone: [facility] Comment on above: Aortic valve disease (Primary Dx) Start: 06-12-2021 Chart abstracting Jo Schrader MA [facility] Start: 06-12-2021 Documentation procedure Mireya son RN [facility] Start: 03-31-2021 End: 03-31-2021 Emergency department patient visit Yoseph Davis [facility] Start: 01-06-2021 End: 01-06-2021 ambulatory Naveen Rasmussen MD Work Phone: [facility] Comment on above: COVID-19 (Primary Dx ) Start: 01-05-2021 Evaluation and management of inpatient Cami Watkins [facility],PharmD [facility] Comment on above: COVID-19 Start: 08-30-2020 End: 08-30-2020 Office outpatient new 60 minutes Naveen Rasmussen MD Work Phone: [facility] Comment on above: SOB (shortness of br eath) on exertion (Primary Dx); Coronary artery disease, unspecified vessel or lesion type, unspecified whether angina present, unspecified whether [place] or transplanted heart; Dizziness; Essential hypertension; Hyperlipidemia, unspecified hyperlipidemia type; Coronary artery disease involving [place] coronary artery of [place] heart, unspecified whether angina present; Type 2 diabetes mellitus with other specified complication, unspecified whether shelter insulin use (HCC); Longstanding persistent atrial fibrillation (HCC); NAJMA (obstructive sleep apnea); Near syncope Start: 08-30-2020 End: 08-30-2020 Subsequent hospital visit by physician Shmuel Villalpando MD Work Phone: [facility] Comment on above: Arrived Start: 06-24-2017 Patient encounter procedure Naveen Rasmussen Facility:[facility] Procedures Date Procedure Procedure Detail Performing Clinician Start: 01-21-2024 Ecg routine ecg w/least 12 lds w/i&r Vanda Muir MD Work Phone: Start: 10-07-2023 Ecg routine ecg w/least 12 lds w/i&r Vanda Muir MD Work Phone: Start: 07-06-2023 Ecg routine ecg w/least 12 lds w/i&r Vanda Muir MD Work Phone: Start: 04-13-2023 Ecg routine ecg w/least 12 lds w/i&r Vanda Muir MD Work Phone: Start: 01-25-2023 Glucose measurement Shahrzad Stillwagon DO Work Phone: Start: 01-25-2023 Basic metabolic panel calcium total Asuncion Haile PA-C Work Phone: Start: 01-24-2023 Glucose measurement Shahrzad Stillwagon DO Work Phone: Start: 01-24-2023 Glucose measurement Shahrzad Stillwagon DO Work Phone: Start: 01-24-2023 Glucose measurement Shahrzad Stillwagon DO Work Phone: Start: 01-24-2023 Basic metabolic panel calcium total Asuncion Haile PA-C Work Phone: Start: 01-24-2023 Glucose measurement Shahrzad Stillwagon DO Work Phone: Start: 01-23-2023 Glucose measurement Shahrzad Stillwagon DO Work Phone: Start: 01-23-2023 Glucose measurement Shahrzad Stillwagon DO Work Phone: Start: 01-23-2023 Glucose measurement Shahrzad Stillwagon DO Work Phone: Start: 01-23-2023 Glucose measurement Shahrzad Stillwagon DO Work Phone: Start: 01-23-2023 Basic metabolic panel calcium total Asuncion Haile PA-C Work Phone: Start: 01-22-2023 Glucose measurement Shahrzad Stillwagon DO Work Phone: Start: 01-22-2023 Glucose measurement Shahrzad Stillwagon DO Work Phone: Start: 01-22-2023 Glucose measurement Shahrzad Stillwagon DO Work Phone: Start: 01-22-2023 Glucose measurement Shahrzad Stillwagon DO Work Phone: Start: 01-22-2023 Basic metabolic panel calcium total Asuncion DUMONT-Alaina Work Phone: Start: 01-21-2023 Glucose measurement Shahrzad Stillwagon DO Work Phone: Start: 01-21-2023 Glucose measurement Shahrzad Stillwagon DO Work Phone: Start: 01-21-2023 Glucose measurement Shahrzad Stillwagon DO Work Phone: Start: 01-21-2023 Glucose measurement Shahrzad Stillwagon DO Work Phone: Start: 01-21-2023 Basic metabolic panel calcium total Asuncion Haile PA-C Work Phone: Start: 01-20-2023 Glucose measurement Shahrzad Stillwagon DO Work Phone: Start: 01-20-2023 Glucose measurement Shahrzad Stillwagon DO Work Phone: Start: 01-20-2023 Glucose measurement Shahrzad Stillwagon DO Work Phone: Start: 01-20-2023 Glucose measurement Shahrzad Stillwagon DO Work Phone: Start: 01-20-2023 Basic metabolic panel calcium total Asuncion Haile PA-C Work Phone: Start: 01-19-2023 Glucose measurement Shahrzad Stillanikagon DO Work Phone: Start: 01-19-2023 Glucose measurement Shahrzad Doragon DO Work Phone: Start: 01-19-2023 Urnls dip stick/tablet reagent auto microscopy Asuncion Haile PA-C Work Phone: Start: 01-19-2023 Us retroperitoneal real time w/image complete Asuncion Haile PA-C Work Phone: Start: 01-19-2023 Glucose measurement Shahrzad Chengwagon DO Work Phone: Start: 01-19-2023 Glucose measurement Shahrzad Stillwagon DO Work Phone: Start: 01-19-2023 Basic metabolic panel calcium total Asuncion Haile PA-C Work Phone: Start: 01-19-2023 Adult depression screening assessment Cheyanne Domingo JAIN Start: 01-18-2023 Glucose measurement Shahrzad Stillwagon DO Work Phone: Start: 01-18-2023 Glucose measurement Shahrzad Stillwagon DO Work Phone: Start: 01-18-2023 End: 01-18-2023 Glucose measurement Shahrzad Stillwagon DO Work Phone: Start: 01-18-2023 Basic metabolic panel calcium total Shahrzad Doragon DO Work Phone: Start: 01-17-2023 Glucose measurement Shahrzad Stillwagon DO Work Phone: Start: 01-17-2023 Glucose measurement Shahrzad Stillwagon DO Work Phone: Start: 01-17-2023 Glucose measurement Shahrzad Stillwagon DO Work Phone: Start: 01-17-2023 Glucose measurement Shahrzad Stillwagon DO Work Phone: Start: 01-16-2023 Glucose measurement Shahrzad Doragon DO Work Phone: Start: 01-16-2023 Glucose measurement Shahrzad Chengwagon DO Work Phone: Start: 01-16-2023 Glucose measurement Shahrzad Doragon DO Work Phone: Start: 01-16-2023 Blood count complete automated Shahrzad Doragon DO Work Phone: Start: 01-16-2023 Glucose measurement Shahrzad Doragon DO Work Phone: Start: 01-16-2023 Comprehensive metabolic panel Shahrzad Doragon DO Work Phone: Start: 01-15-2023 Glucose measurement Shahrzad Doragon DO Work Phone: Start: 01-15-2023 End: 01-15-2023 Culture bacterial quanttative colony count urine Shahrzad Doragon DO Work Phone: Start: 01-15-2023 Glucose measurement Ellen Srinivasan Work Phone: Start: 01-15-2023 Glucose measurement [facility] Work Phone: Start: 01-15-2023 Basic metabolic panel calcium total Sarah Mabry DO Work Phone: Start: 01-14-2023 Glucose measurement [facility] Work Phone: Start: 01-14-2023 Glucose measurement [facility] Work Phone: Start: 01-14-2023 Glucose measurement [facility] Work Phone: Start: 01-14-2023 Glucose measurement [facility] Work Phone: Start: 01-14-2023 Glucose quantitative blood xcpt reagent strip Jonathon Dugan RPh,PharmD Start: 01-14-2023 Adult depression screening assessment Leonidas Nunes RN Start: 01-13-2023 Glucose measurement [facility] Work Phone: Start: 01-13-2023 Glucose measurement [facility] Work Phone: Start: 01-13-2023 Glucose measurement [facility] Work Phone: Start: 01-13-2023 Assay of magnesium Elijah Fairchild RPh, mD Start: 01-13-2023 Glucose measurement [facility] Work Phone: Start: 01-12-2023 Glucose measurement [facility] Work Phone: Start: 01-12-2023 Glucose measurement [facility] Work Phone: Start: 01-12-2023 Glucose measurement [facility] Work Phone: Start: 01-12-2023 End: 01-12-2023 Glucose measurement [facility] Work Phone: Start: 01-11-2023 Glucose measurement [facility] Work Phone: Start: 01-11-2023 Glucose measurement [facility] Work Phone: Start: 01-11-2023 Glucose measurement [facility] Work Phone: Start: 01-11-2023 Glucose measurement [facility] Work Phone: Start: 01-11-2023 Assay of magnesium Elijah Fairchild RPh, mD Start: 01-10-2023 Glucose measurement [facility] Work Phone: Start: 01-10-2023 Glucose measurement [facility] Work Phone: Start: 01-10-2023 Glucose measurement [facility] Work Phone: Start: 01-10-2023 Glucose measurement [facility] Work Phone: Start: 01-09-2023 Glucose measurement [facility] Work Phone: Start: 01-09-2023 Glucose measurement [facility] Work Phone: Start: 01-09-2023 Glucose measurement [facility] Work Phone: Start: 01-09-2023 Glucose measurement [facility] Work Phone: Start: 01-09-2023 Basic metabolic panel calcium total Sussy Newby PA-C Work Phone: Start: 01-08-2023 Glucose measurement [facility] Work Phone: Start: 01-08-2023 Glucose measurement [facility] Work Phone: Start: 01-08-2023 Glucose measurement [facility] Work Phone: Start: 01-08-2023 Glucose measurement [facility] Work Phone: Start: 01-08-2023 Basic metabolic panel calcium total Sussy DUMONT-Alaina Work Phone: Start: 01-08-2023 Glucose measurement [facility] Work Phone: Start: 01-07-2023 Glucose measurement [facility] Work Phone: Start: 01-07-2023 Glucose measurement [facility] Work Phone: Start: 01-07-2023 Glucose measurement [facility] Work Phone: Start: 01-07-2023 Glucose measurement Ellen Srinivasan Work Phone: Start: 01-07-2023 Glucose measurement Ellen Srinivasan Work Phone: Start: 01-07-2023 Ct head/brain w/o contrast material Blake Ackerman [employer] Work Phone: Start: 01-07-2023 Glucose measurement Ellen Srinivasan Work Phone: Start: 01-07-2023 Basic metabolic panel calcium total Sussy Newby PA-C Work Phone: Start: 01-06-2023 Glucose measurement Ellen Srinivasan Work Phone: Start: 01-06-2023 Ct head/brain w/o contrast material Vanda Ramos CNP Work Phone: Start: 01-06-2023 Glucose measurement Ellen Srinivasan Work Phone: Start: 01-06-2023 Glucose measurement Ellen Srinivasan Work Phone: Start: 01-06-2023 Radiologic exam swallow function contrast study Vanda Ramos [employer] Work Phone: Start: 01-06-2023 Glucose measurement Ellen Srinivasan Work Phone: Start: 01-06-2023 Us retroperitoneal real time w/image limited Mirtha Horton [employer] Work Phone: Start: 01-06-2023 TTE w or wo fol wcon,Doppler Vanda Ramos [employer] Work Phone: Start: 01-06-2023 Glucose measurement Ellen Srinivasan Work Phone: Start: 01-06-2023 Calcium ionized Sussy engel PA-C Work Phone: Start: 01-06-2023 MOON TOP Triage Protocol Emergency MD Start: 01-06-2023 LIGHT BLUE TOP Triage Protocol Emergency MD Start: 01-06-2023 LIGHT GREEN TOP Triage Protocol Emergency MD Start: 01-06-2023 Lipid panel Vanda Foley COLLISION REPAIRER Work Phone: Start: 01-06-2023 PINK TOP Triage Protocol Emergency MD Start: 01-06-2023 RAINBOW DRAW Triage Protocol Emergency MD Start: 01-06-[address] w/blood flow&volume Vanda Ramos [employer] Work Phone: Start: 01-06-2023 Ct head/brain w/o contrast material Vanda Ramos [employer] Work Phone: Start: 01-05-2023 Ecg routine ecg w/least 12 lds w/i&r Shmuel Villalpando MD Work Phone: Start: 10-01-2022 Ecg routine ecg w/least 12 lds w/i&r Vanda Muir MD Work Phone: Start: 04-15-2022 Ecg routine ecg w/least 12 lds w/i&r Shmuel Villalpando MD Work Phone: Start: 03-13-2022 Glucose measurement Adriano Hawley MD Work Phone: Start: 03-13-2022 Ecg routine ecg w/least 12 lds trcg only w/o i&r Ira Ricci [employer] Work Phone: Start: 03-13-2022 Glucose measurement Adriano Hawley MD Work Phone: Start: 03-13-2022 Comprehensive metabolic panel Adriano Hawley MD Work Phone: Start: 03-12-2022 Glucose measurement Adriano Hawley MD Work Phone: Start: 03-12-2022 Glucose measurement Adriano Hawley MD Work Phone: Start: 03-12-2022 Ecg routine ecg w/least 12 lds trcg only w/o i&r Ira Darren Ricci [employer] Work Phone: Start: 03-12-2022 Glucose measurement Adriano Hawley MD Work Phone: Start: 03-12-2022 Ecg routine ecg w/least 12 lds trcg only w/o i&r [facility] [employer] Work Phone: Start: 03-12-2022 Glucose measurement Adriano Hawley MD Work Phone: Start: 03-12-2022 Comprehensive metabolic panel Adriano Hawley MD Work Phone: Start: 03-11-2022 Ecg routine ecg w/least 12 lds trcg only w/o i&r [facility] Work Phone: Start: 03-11-2022 Glucose measurement Adriano Hawley MD Work Phone: Start: 03-11-2022 Glucose measurement Adriano Hawley MD Work Phone: Start: 03-11-2022 Glucose measurement Adriano Hawley MD Work Phone: Start: 03-11-2022 Ecg routine ecg w/least 12 lds trcg only w/o i&r [facility] Work Phone: Start: 03-11-2022 Glucose measurement Adriano Hawley MD Work Phone: Start: 03-11-2022 Comprehensive metabolic panel Adriano Hawley MD Work Phone: Start: 03-10-2022 Glucose measurement Adriano Hawley MD Work Phone: Start: 03-10-2022 Glucose measurement Adriano Hawley MD Work Phone: Start: 03-10-2022 Glucose measurement Adriano Hawley MD Work Phone: Start: 03-10-2022 Ecg routine ecg w/least 12 lds trcg only w/o i&r Ira Ricci [employer] Work Phone: Start: 03-10-2022 Glucose measurement Adriano Hawley MD Work Phone: Start: 03-10-2022 Comprehensive metabolic panel Adriano Hawley MD Work Phone: Start: 03-09-2022 Ecg routine ecg w/least 12 lds trcg only w/o i&r Ira Ricci [employer] Work Phone: Start: 03-09-2022 Glucose measurement Adriano Hawley MD Work Phone: Start: 03-09-2022 Glucose measurement Adriano Hawley MD Work Phone: Start: 03-09-2022 Ecg routine ecg w/least 12 lds trcg only w/o i&r Ira Ricci [employer] Work Phone: Start: 03-09-2022 End: 03-09-2022 Basic metabolic panel calcium total Ira Ricci [employer] Work Phone: Start: 03-09-2022 Glucose measurement Adriano Hawley MD Work Phone: Start: 12-24-2021 Ecg routine ecg w/least 12 lds w/i&r Vanda Muir MD Work Phone: Start: 10-17-2021 Ecg routine ecg w/least 12 lds w/i&r Shmuel Villalpando MD Work Phone: Start: 06-27-2021 CARDIOLOGY SCANS Anastacia Randle MD Start: 06-16-2021 Ecg routine ecg w/least 12 lds w/i&r Shmuel Villalpando MD Work Phone: Start: 06-16-2021 Ecg routine ecg w/least 12 lds w/i&r Shmuel Villalpando MD Work Phone: Start: 08-30-2020 Ecg routine ecg w/least 12 lds w/i&r Shmuel Villalpando MD Work Phone: Start: 08-30-2020 Referral to cardiology service External Transcribed Start: 08-30-2020 Duplex scan extracranial art compl bi study External Transcribed Start: 09-16-2016 Ophthalmic examination and evaluation Jo Watts MA History of coronary artery bypass grafting Status post coronary artery bypass graft Ira Meyers RAFAEL Work Phone: Plan of Treatment Date Care Activity Detail Author Start: 04-13-2026 Diabetes Screening Diabetes Screening [facility] Start: 06-27-2025 End: 06-27-2025 Patient encounter procedure 06/27/2025 1:30 PM EDT Office Visit [facility] [address] [place] [address] Silvana Caballero II, OD [address] [place] [address] Diabetic Eye exam/[facility] Comment on above: Diabetic Eye exam[facility] Start: 06-21-2025 Glaucoma screening Dilated Retinal Exam [facility] Start: 10-06-2024 eGFR Diabetes eGFR Diabetes [facility] Start: 10-06-2024 Urine screening for protein eGFR Diabetes [facility] Start: 08-28-2024 End: 08-28-2024 Patient encounter procedure 08/28/2024 9:20 AM EDT Office Visit [facility] [address] [place] [address] Simon Hardy, [address] [place] [address] [facility] Start: 08-23-2024 Hemoglobin A1c measurement A1C [facility] Start: 07-21-2024 CLASS III : EKG CLASS III : EKG [facility] Start: 07-21-2024 CLASS III : OFFICE VISIT CLASS III : OFFICE VISIT [facility] Start: 07-21-2024 End: 07-21-2024 Patient encounter procedure [facility] Start: 06-27-2024 CLASS III : OFFICE VISIT CLASS III : OFFICE VISIT [facility] Start: 06-21-2024 End: 06-21-2024 Patient encounter procedure 06/21/2024 11:00 AM EDT Office Visit [facility] [address] [place] [address] Silvana Caballero II, OD [address] [place] [address] Diabetic Eye exam Optometry Comment on above: Diabetic Eye exam Start: 06-16-2024 Glaucoma screening Diabetic Eye Exam [facility] Start: 05-24-2024 Patient referral [facility] Work Phone: Start: 04-30-2024 CLASS III : EKG CLASS III : EKG [facility] Start: 04-08-2024 CLASS III : EKG CLASS III : EKG [facility] Start: 02-23-2024 Hemoglobin A1c measurement A1C [facility] Start: 02-16-2024 Advance Directive Discussion Advance Directive Discussion [facility] Start: 02-01-2024 End: 02-01-2024 Patient encounter procedure 02/01/2024 1:00 PM EST Appointment [facility] [address] [place] [address] Pennie Galvez, RAFAEL [address] [place] [address] [facility] Start: 01-21-2024 CLASS III : OFFICE VISIT CLASS III : OFFICE VISIT [facility] Start: 01-21-2024 End: 01-21-2024 Patient encounter procedure 01/21/2024 8:00 AM EST Office Visit [facility] [address] 3[address] floor [place] [address] Ira Ricci, [employer]TER [employer]GRAPHICAL [address] [place] [address] [facility] Start: 01-20-2024 Depression screening using PHQ-9 (Patient Health Questionnaire 9) score [facility] Start: 01-15-2024 Depression screening using PHQ-9 (Patient Health Questionnaire 9) score Depression Screening (PHQ-2/9) [facility] Start: 01-07-2024 CLASS III : POTASSIUM CLASS III : POTASSIUM [facility] Start: 01-07-2024 Class III: Magnesium Class III: Magnesium [facility] Start: 01-07-2024 Creatinine measurement CLASS III : CREATININE [facility] Start: 01-07-2024 Hepatitis B surface antibody level LDL Cholesterol [facility] Start: 01-06-2024 CLASS III : EKG CLASS III : EKG [facility] Start: 01-06-2024 CLASS III : OFFICE VISIT CLASS III : OFFICE VISIT [facility] Start: 12-29-2023 End: 12-29-2023 Patient encounter procedure 12/29/2023 1:00 PM EST Office Visit [facility] [address] [facility] 3[address] [facility] Medical [place] [phone] Pennie Galvez CNP [address] [place] [address] [facility] Start: 10-17-2023 COVID-19 Vaccine ( season) COVID-19 Vaccine ( season) [facility] Start: 10-17-2023 Influenza vaccination Influenza Vaccine (#1) [facility] Start: 10-07-2023 End: 10-07-2023 Clinical Support 10/07/2023 1:30 PM EDT Clinical Support [facility] [address] [facility] Medical [place] [address] [facility] Start: 10-06-2023 CLASS III : POTASSIUM CLASS III : [facility]SIUM [facility] Start: 10-06-2023 Class III: Magnesium Class III: Magnesium [facility] Start: 10-06-2023 Creatinine measurement CLASS III : CREATININE [facility] Start: 08-03-2023 CLASS III : OFFICE VISIT CLASS III : OFFICE VISIT [facility] Start: 07-22-2023 End: 07-22-2023 Patient encounter procedure 07/22/2023 9:30 AM EDT Office Visit [facility] [address] [facility] Medical Office Building, 2nd [place] [address] Christina Branham, [employer] [address] [address] [facility] Start: 07-12-2023 CLASS III : POTASSIUM CLASS III : POTASSIUM [facility] Start: 07-12-2023 Class III: Magnesium Class III: Magnesium [facility] Start: 07-12-2023 Creatinine measurement CLASS III : CREATININE [facility] Start: 07-07-2023 Hemoglobin A1c measurement [facility] Start: 07-06-2023 End: 07-06-2023 Patient encounter procedure 07/06/2023 3:30 PM EDT Office Visit [facility] [address] [place] [address] [place] [address] Ashley Townsend, D[employer]TER [employer]GRAPHICAL [address] [place] [address] [facility] Start: 07-06-2023 CLASS III : OFFICE VISIT CLASS III : OFFICE VISIT [facility] Start: 05-08-2023 Glaucoma screening Diabetic Eye Exam [facility] Start: 05-08-2023 Hepatitis C antibody, confirmatory test DILATED RETINAL EXAM [facility] Start: 04-26-2023 Creatinine measurement CLASS III : CREATININE [facility] Start: 04-16-2023 Creatinine measurement CLASS III : CREATININE [facility] Start: 04-15-2023 Class III: Magnesium Class III: Magnesium [facility] Start: 04-13-2023 End: 04-13-2023 Clinical Support 04/13/2023 2:00 PM EST Clinical Support [facility] [address] [facility] [place] [phone] [facility] Start: 03-19-2023 End: 03-19-2023 Patient encounter procedure 03/19/2023 11:15 AM EST Office Visit [facility] [address] [place] [address] Juan Watt MD [address] [address] [facility] Start: 02-26-2023 Evaluation of diagnostic study results [facility] Start: 02-15-2023 Advance Directive Discussion Advance Directive Discussion [facility] Start: 02-15-2023 Behavioral Health Screening Behavioral Health Screening [facility] Start: 02-12-2023 End: 02-12-2023 ambulatory [facility] Start: 02-11-2023 End: 02-11-2023 ambulatory [facility] Start: 02-03-2023 End: 02-03-2023 ambulatory 02/03/2023 3:30 PM EST Treatment [facility] [address] [place] [phone] Shahrzad Odom DO [address] [place] [address] SLP [facility] Start: 02-01-2023 End: 02-01-2023 Patient encounter procedure 02/01/2023 2:30 PM EST Office Visit [facility] [address] [place] [address] Medical Office Building, 2nd [place] [address] Christina Branham CNP [address] [place] [address] [address] [place] [address] [facility] Start: 01-27-2023 End: 01-27-2023 ambulatory 01/27/2023 10:15 AM EST Evaluation [facility] [address] [place] [address] Shahrzad Odom DO [address] [place] [address] Mukesh Ramirez, LUZ [facility] Start: 01-27-2023 End: 01-27-2023 ambulatory [facility] Start: 01-18-2023 Evaluation and management of inpatient 01/18/2023 Hospital Encounter [facility] [address] [place] [address] Shahrzad Odom DO [address] [place] [address] [facility] Start: 01-18-2023 End: 01-18-2023 ambulatory 01/18/2023 11:15 AM EST Treatment [facility] [address] [place] [phone] Dorothy Quijano, PT [facility] Start: 01-18-2023 End: 01-18-2023 ambulatory [facility] Start: 01-16-2023 End: 01-16-2023 ambulatory [facility] Start: 01-16-2023 End: 01-16-2023 ambulatory 01/16/2023 7:30 AM EST Treatment [facility] [address] [place] [phone] Kassidy Pierre OT [facility] Start: 01-05-2023 End: 01-05-2023 Patient encounter procedure 01/05/2023 1:30 PM EST Office Visit [facility] [place] [address] Ira Ricci CNP [address] [place] [address] [facility] Start: 01-01-2023 Class III: Magnesium Class III: Magnesium [facility] Start: 01-01-2023 Creatinine measurement CLASS III : CREATININE [facility] Start: 12-26-2022 CLASS III : OFFICE VISIT CLASS III : OFFICE VISIT [facility] Start: 10-17-2022 CLASS III : OFFICE VISIT CLASS III : OFFICE VISIT [facility] Start: 10-16-2022 CLASS III : OFFICE VISIT CLASS III : OFFICE VISIT [facility] Start: 10-16-2022 COVID-19 Vaccine () COVID-19 Vaccine () [facility] Start: 10-16-2022 Influenza vaccination Sequential Influenza Vaccine (#1) [facility] Start: 10-08-2022 Administration of herpes zoster vaccine Zoster Vaccines (2 of 2) [facility] Start: 09-06-2022 Hemoglobin A1c measurement A1C [facility] Start: 09-06-2022 Hemoglobin A1c/Hemoglobin.total in Blood HBA1C [facility] Start: 07-24-2022 CLASS III : OFFICE VISIT CLASS III : OFFICE VISIT [facility] Start: 06-25-2022 End: 06-25-2022 Patient encounter procedure 06/25/2022 Office Visit Cardiology Ira Ricci CNP [address] [place] [address] [facility] Start: 06-23-2022 CLASS III : OFFICE VISIT CLASS III : OFFICE VISIT [facility] Start: 06-11-2022 Class III: Magnesium Class III: Magnesium [facility] Start: 06-11-2022 Creatinine measurement CLASS III : CREATININE [facility] Start: 04-24-2022 Hepatitis C antibody, confirmatory test DILATED RETINAL EXAM [facility] Start: 04-21-2022 History and physical examination, annual for health maintenance Wellness Visit [facility] Start: 04-21-2022 Medicare Wellness Visit Medicare Wellness Visit [facility] Start: 04-03-2022 End: 04-03-2022 Patient encounter procedure 04/03/2022 Office Visit Cardiology Shmuel Villalpando MD [address] [place] [address] [facility] Start: 03-26-2022 End: 03-26-2022 Patient encounter procedure 03/26/2022 Office Visit Cardiology Shmuel Villalpando MD [address] [place] [address] Vanda Muir MD [address] [place] [address] [facility] Start: 02-15-2022 ADVANCE DIRECTIVE DISCUSSION ADVANCE DIRECTIVE DISCUSSION [facility] Start: 02-15-2022 DEPRESSION ASSESSMENT DEPRESSION ASSESSMENT [facility] Start: 12-24-2021 End: 12-24-2021 Patient encounter procedure 12/24/2021 Office Visit Cardiology Shmuel Villalpando MD [address] [place] [address] Vanda Muir MD [address] [place] [address] [facility] Start: 11-13-2021 End: 11-13-2021 Patient encounter procedure 11/13/2021 Appointment Cardiology Shmuel Villalpando MD [address] [place] [address] [facility] Start: 11-11-2021 Hemoglobin A1c measurement A1C [facility] Start: 10-17-2021 End: 10-17-2021 Patient encounter procedure 10/17/2021 Office Visit Cardiology Shmuel Villalpando MD [address] [place] [address] [facility] Start: 10-16-2021 Influenza vaccination [facility] Start: 09-25-2021 End: 09-25-2021 Follow-up encounter 09/25/2021 Follow-Up Cardiothoracic Surgery Ira Meyers CNP [address] [place] [address] [facility] Start: 08-12-2021 End: 08-12-2021 Admission to same day surgery center 08/12/2021 Surgery Luis Beasley MD [address] [facility] [address] [place] [address] CORONARY ARTERY BYPASS GRAFT WITH ENDOVEIN HARVEST AND MAZE AND AORTIC VLAVE REPAIR / REPLACE AND ENCOMPASS CLAMP/ATRICURE REP [facility] Comment on above: CORONARY ARTERY BYPASS GRAFT WITH ENDOVE IN HARVEST AND MAZE AND AORTIC VLAVE REPAIR / REPLACE AND ENCOMPASS CLAMP/ATRICURE REP Start: 08-12-2021 End: 08-12-2021 CORONARY ARTERY BYPASS GRAFT WITH REPAIR/REPLACE AORTIC VALVE WITH MAZE CORONARY ARTERY BYPASS GRAFT WITH REPAIR/REPLACE AORTIC VALVE WITH MAZE Coronary artery disease involving [place] coronary artery of [place] heart, unspecified whether angina present Atrial fibrillation, unspecified type (HCC) Nonrheumatic aortic valve stenosis 08/12/2021 7:10 AM EDT [facility] Start: 08-12-2021 Subsequent hospital visit by physician 08/12/2021 Hospital Encounter Luis Beasley MD [address] [facility] [address] [place] [address] [facility] Start: 08-11-2021 End: 08-11-2021 Admission to establishment 08/11/2021 Clinical Support [facility] [facility] Preadmission Testing Start: 08-05-2021 End: 08-05-2021 Patient encounter procedure 08/05/2021 Appointment Pulmonology Luis Beasley MD [address] [facility] [address] [place] [address] [facility] Pulmonary Lab Start: 08-01-2021 End: 08-01-2021 Patient encounter procedure [facility] Pulmonary Lab Start: 07-31-2021 End: 07-31-2021 Patient encounter procedure 07/31/2021 Appointment Cardiology Luis Beasley MD [address] [facility] [address] [place] [address] [facility] Start: 07-10-2021 End: 06-24-2022 Creatinine [Mass/volume] in Serum or Plasma Creatinine, serum Lab Routine Drug therapy Expected: 07/10/2021, Expires: 06/24/2022 [facility] Comment on above: Expected: 07/10/2021, Expires: Start: 07-10-2021 End: 06-24-2022 Urea nitrogen [Mass/volume] in Serum or Plasma BUN Lab Routine Drug therapy Expected: 07/10/2021, Expires: 06/24/2022 [facility] Comment on above: Expected: 07/10/2021, Expires: 3 Start: 07-08-2021 End: 07-08-2021 Patient encounter procedure 07/08/2021 Appointment Radiology Shmuel Villalpando MD [address] [place] [address] [facility] CT Scan Start: 07-07-2021 End: 07-07-2021 Patient encounter procedure 07/07/2021 Initial consult Cardiology Kyle Mccarthy MD [address] [place] [address] [facility] Start: 07-03-2021 End: 06-24-2022 Creatinine [Mass/volume] in Serum or Plasma Creatinine, serum Lab Routine Drug therapy Expected: 07/03/2021, Expires: 06/24/2022 [facility] Comment on above: Expected: 07/03/2021, Expires: 3 Start: 07-03-2021 End: 06-24-2022 Urea nitrogen [Mass/volume] in Serum or Plasma BUN Lab Routine Drug therapy Expected: 07/03/2021, Expires: 06/24/2022 [facility] Work Phone: Comment on above: Expected: 07/03/2021, Expires: 3 Start: 07-01-2021 End: 07-01-2021 Admission to same day surgery center 07/01/2021 Surgery Cardiology Shmuel Villlapando MD [address] [place] [address] Left and Right Heart Cath [facility] Cardiovascular Lab Comment on above: Left and Right Heart Cath Start: 07-01-2021 Subsequent hospital visit by physician 07/01/2021 Hospital Encounter Cardiology Shmuel Villalpando MD [address] [place] [address] [facility] Procedural Care Unit Start: 06-19-2021 End: 08-16-2022 Transesophageal echocardiography Echocardiogram transesophageal Echocardiography Routine Aortic valve disease Aortic valve stenosis, etiology of cardiac valve disease unspecified Expected: 06/19/2021, Expires: 08/16/2022 [facility] Work Phone: Comment on above: Expected: 06/19/2021, Expires: Start: 06-19-2021 End: 06-19-2021 Patient encounter procedure 06/19/2021 Appointment Cardiology Shmuel Villalpando MD [address] [place] [address] [facility] Cardiac Non-Invasive Lab Start: 06-16-2021 End: 06-16-2021 Patient encounter procedure 06/16/2021 Office Visit Cardiology Shmuel Villalpando MD [address] [place] [address] [facility] Start: 05-27-2021 COVID-19 Vaccine (4 - Booster for Moderna series) COVID-19 Vaccine (4 - Booster for Moderna series) [facility] Start: 03-23-2021 COVID-19 Vaccine (4 - Booster for Moderna series) COVID-19 Vaccine (4 - Booster for Moderna series) [facility] Start: 02-15-2021 ADVANCE DIRECTIVE DISCUSSION ADVANCE DIRECTIVE DISCUSSION [facility] Start: 11-16-2020 COVID-19 Vaccine (3 - Booster for Moderna series) COVID-19 Vaccine (3 - Booster for Moderna series) [facility] Start: 10-16-2020 Influenza vaccination Sequential Influenza Vaccine (#1) [facility] Start: 10-21-2017 Pneumococcal Vaccine: 50+ (2 of 2 - PCV) Pneumococcal Vaccine: 50+ (2 of 2 - PCV) [facility] Start: 10-21-2017 Pneumococcal Vaccine: 65+ (2 of 2 - PCV) Pneumococcal Vaccine: 65+ (2 of 2 - PCV) [facility] Start: 10-21-2017 Pneumococcal Vaccine: Age 50+ (2 of 2 - PCV) Pneumococcal Vaccine: Age 50+ (2 of 2 - PCV) [facility] Start: 10-21-2017 Pneumococcal Vaccine: Age 65+ (2 - PCV) Pneumococcal Vaccine: Age 65+ (2 - PCV) [facility] Start: 10-21-2017 Pneumococcal Vaccine: Age 65+ (2 of 2 - PCV) Pneumococcal Vaccine: Age 65+ (2 of 2 - PCV) [facility] Start: 09-16-2017 Glaucoma screening [facility] Start: 09-16-2017 Ophthalmic examination and evaluation Ophthalmology Exam [facility] Start: 2016 Respiratory Syncytial Virus Immunization: Risk, 60-74 Risk, or 75+ (1 - 1-dose 75+ series) Respiratory Syncytial Virus Immunization: Risk, 60-74 Risk, or 75+ (1 - 1-dose 75+ series) [facility] Start: 2016 RSV Vaccine (1 - 1-dose 75+ series) RSV Vaccine (1 - 1-dose 75+ series) [facility] Start: 2006 Fall risk assessment Falls Risk Assessment [facility] Start: 2006 PNEUMOCOCCAL: 65+ (1 - PCV) PNEUMOCOCCAL: 65+ (1 - PCV) [facility] Start: 2001 RSV Vaccine (1 - 1-dose 60+ series) RSV Vaccine (1 - 1-dose 60+ series) [facility] Start: 10-03-1991 Administration of herpes zoster vaccine Zoster Vaccines (1 of 2) [facility] Start: 10-03-1991 SHINGRIX VACCINE (1 of 2) SHINGRIX VACCINE (1 of 2) [facility] Start: 1960 Urine microalbumin profile [facility] Start: 10-03-1959 ANNUAL PCP TEAM CHRONIC DISEASE VISIT ANNUAL PCP TEAM CHRONIC DISEASE VISIT [facility] Start: 10-03-1959 Anxiety Screening Anxiety Screening [facility] Start: 10-03-1959 BP CONTROLLED (<130/80) BP CONTROLLED (<130/80) [facility] Start: 10-03-1959 Depression Screening Depression Screening [facility] Start: 10-03-1959 Hepatitis B surface antibody level LDL CHOLESTEROL [facility] Start: 10-03-1959 Hepatitis C screening Hepatitis C Screening [facility] Start: 1953 Depression screening using PHQ-9 (Patient Health Questionnaire 9) score [facility] Start: 10-03-1951 3 comp foot exam completed DIABETIC FOOT EXAM [facility] Start: 10-03-1951 Diabetic foot examination [facility] Start: 10-03-1951 Hepatitis B screening URINE ALBUMIN:CREATININE RATIO [facility] Start: 10-03-1951 Microalbumin measurement, urine, quantitative Urine Microalbumin [facility] Start: 10-03-1951 Ophthalmic examination and evaluation Ophthalmology Exam [facility] Start: 10-03-1951 Urine screening for protein [facility] Start: 10-03-1947 Pneumococcal Vaccine: Age 65+ (1 - PCV) Pneumococcal Vaccine: Age 65+ (1 - PCV) [facility] Start: 10-03-1947 Pneumococcal Vaccine: Age 65+ (1 of 2 - PCV) Pneumococcal Vaccine: Age 65+ (1 of 2 - PCV) [facility] Start: 10-03-1947 Pneumococcal Vaccine: Age 65+ (1 of 2 - PPSV23) Pneumococcal Vaccine: Age 65+ (1 of 2 - PPSV23) [facility] Start: 10-03-1947 PNEUMOCOCCAL: 65+ (1 - PCV) PNEUMOCOCCAL: 65+ (1 - PCV) [facility] Start: 1946 Hemoglobin A1c/Hemoglobin.total in Blood HBA1C [facility] Start: 1944 History and physical examination, annual for health maintenance Wellness Visit [facility] Start: 1941 Alanine aminotransferase measurement CLASS III : ALT [facility] Start: 1941 CLASS III : ALT CLASS III : ALT [facility] Start: 1941 CLASS III : AST CLASS III : AST [facility] Start: 1941 CLASS III : CXR CLASS III : CXR [facility] Start: 1941 CLASS III : EKG CLASS III : EKG [facility] Start: 1941 CLASS III : PFT CLASS III : PFT [facility] Start: 1941 CLASS III : POTASSIUM CLASS III : POTASSIUM [facility] Start: 1941 Class III : TSH Class III : TSH [facility] Start: 1941 Hemoglobin A1c measurement A1C [facility] Start: 1941 Tetanus vaccination Tetanus: Every 10yrs [facility] Start: 1941 Thyroid stimulating hormone measurement Class III : TSH [facility] End: 12-23-2022 12 lead ECG ECG 12 Lead ECG Routine PAF (paroxysmal atrial fibrillation) (HCC) 15 Occurrences starting 12/22/2021 until 12/23/2022 [employer] Work Phone: Comment on above: 15 Occurrences starting 12/22/2021 until 12/23/2022 End: 04-16-2023 12 lead ECG ECG 12 Lead ECG Routine Paroxysmal atrial fibrillation (HCC) 1 Occurrences starting 04/15/2022 until 04/16/2023 [employer] Work Phone: Comment on above: 1 Occurrences starting 04/15/2022 until 04/16/2023 End: 01-05-2024 12 lead ECG [employer] Work Phone: Comment on above: 15 Occurrences starting 01/04/2023 until 01/05/2024 12 lead ECG ECG 12 Lead ECG Routine group home current use of antiarrhythmic drug 04/13/2023 2:09 PM EST [employer] Work Phone: 12 lead ECG ECG 12 Lead ECG 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 07/06/2023 3:22 PM EDT [employer] Work Phone: 12 lead ECG ECG 12 Lead ECG Routine group home current use of antiarrhythmic drug 10/07/2023 1:16 PM EDT [employer] Work Phone: End: 01-19-2025 12 lead ECG ECG 12 Lead ECG Routine Atrial fibrillation, unspecified type (HCC) 15 Occurrences starting 01/20/2024 until 01/19/2025 [employer] Work Phone: Comment on above: 15 Occurrences starting 01/20/2024 until 01/19/2025 End: 12-17-2022 24 Hour ECG Holter monitor- up to 48 hour Cardiac Services Routine Paroxysmal atrial fibrillation (HCC) 1 Occurrences starting 10/17/2021 until 12/17/2022 [employer] Comment on above: 1 Occurrences starting 10/17/2021 until 12/17/2022 End: 04-13-2024 Basic metabolic 2000 panel - Serum or Plasma Basic metabolic panel Lab Routine group home current use of antiarrhythmic drug 4 Occurrences starting 04/13/2023 until 04/13/2024, 1 completed [employer] Work Phone: Comment on above: 4 Occurrences starting 04/13/2023 until 04/13/2024, 1 completed End: 08-31-2021 Cardiac event recording Cardiac event monitor Cardiac Services Routine Near syncope 1 Occurrences starting 08/30/2020 until 08/31/2021 [facility] Comment on above: 1 Occurrences starting 08/30/2020 until 08/31/2021 End: 08-30-2020 Cardiac event recording Cardiac event monitor Cardiac Services Routine Near syncope Once for 1 Occurrences starting 08/30/2020 until 08/30/2020 [facility] Comment on above: Once for 1 Occurrences starting 08/31/19 21 until 08/30/2020 End: 09-23-2022 Carotid artery doppler assessment Carotid Duplex Vascular Ultrasound Routine Aortic valve stenosis, etiology of cardiac valve disease unspecified Coronary artery disease involving [place] coronary artery of [place] heart, unspecified whether angina present 1 Occurrences starting 07/24/2021 until 09/23/2022 [facility] Work Phone: Comment on above: 1 Occurrences starting 07/24/2021 until 09/23/2022 CBC W Auto Different ial panel - Blood [facility] End: 06-16-2022 Complete blood count with white cell differential, manual CBC and differential Lab Routine Aortic valve disease 1 Occurrences starting 06/16/2021 until 06/16/2022 [facility] Work Phone: Comment on above: 1 Occurrences starting 06/16/2021 until 06/16/2022 End: 06-16-2022 Comprehensive metabolic 2000 panel - Serum or Plasma Comprehensive metabolic panel Lab Routine Aortic valve disease 1 Occurrences starting 06/16/2021 until 06/16/2022 [facility] Comment on above: 1 Occurrences starting 06/16/2021 until 06/16/2022 End: 06-23-2022 CT TAVR Chest Abdomen Pelvis without hydration CT TAVR Chest Abdomen Pelvis without hydration Imaging Routine Aortic valve stenosis, etiology of cardiac valve disease unspecified 1 Occurrences starting 06/23/2021 until 06/23/2022 [facility] Work Phone: Comment on above: 1 Occurrences starting 06/23/2021 until 06/23/2022 End: 08-31-2021 Echocardiography Echocardiogram complete Echocardiography Routine SOB (shortness of breath) on exertion 1 Occurrences starting 08/30/2020 until 08/31/2021 [facility] Comment on above: 1 Occurrences starting 08/30/2020 until 08/31/2021 End: 10-18-2022 Echocardiography Echocardiogram complete Echocardiography Routine S/P AVR 1 Occurrences starting 10/17/2021 until 10/18/2022 [facility] Work Phone: Comment on above: 1 Occurrences starting 10/17/2021 until 10/18/2022 End: 02-27-2025 Echocardiography Echocardiogram complete Echocardiography Routine Leg swelling Aortic valve stenosis, severe 1 Occurrences starting 12/29/2023 until 02/27/2025 [facility] Work Phone: Comment on above: 1 Occurrences starting 12/29/2023 until 02/27/2025 End: 03-09-2022 External electrode cardioversion [facility] Work Phone: Comment on above: Once for 1 Occurrences starting 03/09/19 until 03/09/2022 LEFT AND RIGHT HEART CATH LEFT AND RIGHT HEART CATH severe [facility] End: 04-13-2024 Magnesium [Mass/volume] in Serum or Plasma Magnesium Level Lab Routine group home current use of antiarrhythmic drug 4 Occurrences starting 04/13/2023 until 04/13/2024, 1 completed [facility] Comment on above: 4 Occurrences starting 04/13/2023 until 04/13/2024, 1 completed Magnesium [Mass/volu me] in Serum or Plasma [facility] Patient referral [facility] Work Phone: Prostate specific antigen measurement [facility] End: 08-31-2021 Radionuclide myocardial perfusion study NM Myocardial Perfusion Multiple SPECT Imaging Routine SOB (shortness of breath) on exertion 1 Occurrences starting 08/30/2020 until 08/31/2021 [facility] Comment on above: 1 Occurrences starting 08/30/2020 until 08/31/2021 End: 07-24-2022 Spirometry PFT spirometry (only) PFT Routine Aortic valve stenosis, etiology of cardiac valve disease unspecified Coronary artery disease involving [place] coronary artery of [place] heart, unspecified whether angina present 1 Occurrences starting 07/24/2021 until 07/24/2022 [facility] Comment on above: 1 Occurrences starting 07/24/2021 until 07/24/2022 [facility] Immunizations Immunization Date Immunization Notes Care Provider [facility] 11-24-2023 Seasonal trivalent influenza vaccine, adjuvanted, preservative free Dr. Moi Gibson MD Work Phone: [facility] 11-13-2022 influenza, injectabl e, quadrivalent, preservative free Dr. Moi Gibson Work Phone: [facility] 11-13-[address] Moi Gibson Work Phone: [facility] 11-13-2022 influenza virus vacc ine, unspecified formulation Daphne Fischer RN [facility] 08-13-[address] Moi Gibson Work Phone: [facility] 06-07-2022 Covid Pfizer Bivalen t Booster Dr. Moi Gibson Work Phone: [facility] 11-25-2021 Influenza High-Dose Quadrivalent Dr. Moi Gibson Work Phone: [facility] 01-26-2021 Covid (Pfizer) Dr. Moi mendez Work Phone: [facility] 11-26-2020 influenza, injectabl e, quadrivalent, preservative free Dr. Moi Gibson Work Phone: [facility] 05-17-2020 Covid (Moderna) Dr. Moi kinsey Work Phone: [facility] 04-17-2020 Covid (Moderna) Dr. Moi kinsey Work Phone: [facility] 11-14-2019 influenza, injectabl e, quadrivalent, preservative free Dr. Moi Gibson Work Phone: [facility] 11-29-2018 influenza, injectabl e, quadrivalent, preservative free Dr. Moi Gibson Work Phone: [facility] 11-29-2017 influenza, injectabl e, quadrivalent, preservative free Dr. Moi Gibson Work Phone: [facility] 11-25-2016 influenza, injectabl e, quadrivalent, preservative free Dr. Moi Gibson Work Phone: [facility] 10-21-2016 pneumococcal polysaccharide vaccine, [address] Moi Gibson Work Phone: [facility] 12-11-2015 influenza, injectabl e, quadrivalent, preservative free Dr. Moi Gibson Work Phone: [facility] 12-12-2014 influenza, injectabl e, quadrivalent, preservative free Dr. Moi Gibson Work Phone: [facility] 11-23-2012 influenza, injectabl e, quadrivalent, preservative free Dr. Moi Gibson Work Phone: [facility] Payers Date Payer Category Payer Self-pay 2023 Medicare (Managed Care) [employer] [id number] 2023 Medicare [facility] [id number] 2018 Medicare [id number]. [id number] 2018 Medicare [id number]. [id number] 2017 Private Health Insurance 2011 Private Health Insurance [id number] 1941 Unknown [id number] 2.16.840.1.887210.3.579. 2.7 1941 Unknown [id number] 2.16.840.1.765471.3.579. 2.1068 1941 Unknown [id number] 2.16.840.1.698455.3.579. 2.1068 1941 Unknown [id number] 2.16.840.1.617454.3.579. 2.1068 1941 Unknown [id number] 2.16.840.1.671828.3.579. 2.1068 1941 Unknown [id number] 2.16.840.1.920203.3.579. 2.1068 1941 Unknown [id number] 2.16.840.1.336334.3.579. 2.1068 1941 Unknown [id number] 2.16.840.1.336939.3.579. 2.1068 1941 Unknown [id number] 2.16.840.1.780232.3.579. 2.1068 1941 Unknown [id number] 2.16.840.1.629723.3.579. 2.1068 1941 Unknown [id number] 2.16.840.1.362863.3.579. 2.1068 1941 Unknown [id number] 2.16.840.1.476576.3.579. 2.1069 1941 Unknown [id number] 2.16.840.1.028477.3.579. 2.1069 1941 Unknown [id number] 2.16.840.1.728497.3.579. 2.900 1941 Unknown [id number] 2.16.840.1.337853.3.579. 2.900 1941 Unknown [id number] 2.16.840.1.442039.3.579. 2.900 1941 Unknown [id number] 2.16.840.1.569294.3.579. 2.90 1941 Unknown [id number] 2.16.840.1.123769.3.579. 2. 1941 Unknown [id number] 2.16.840.1.267813.3.579. 2.90 1941 Unknown [id number] 2.16.840.1.766749.3.579. 2.90 1941 Unknown [id number] 2.16.840.1.189362.3.579. 2.902 1941 Unknown [id number] 2.16.840.1.244280.3.579. 2.90 1941 Unknown [id number] 2.16.840.1.079268.3.579. 2.90 1941 Unknown [id number] 2.16.840.1.072564.3.579. 2.90 1941 Unknown [id number] 2.16.840.1.941253.3.579. 2.903 1941 Unknown [id number] 2.16.840.1.577668.3.579. 2.903 Medicare [employer]ARE [employer] [place] [id number] Unknown Unknown [id number] 2.16.840.1.922710.3.579. 2.462 Unknown [id number] 2.16.840.1.816945.3.579. 2.462 Unknown [id number] 2.16.840.1.488212.3.579. 2.462 Unknown [id number] 2.16.840.1.228002.3.579. 2.462 Unknown [id number] 2.16.840.1.075809.3.579. 2.462 Unknown [id number] 2.16.840.1.585727.3.579. 2.462 Unknown [id number] 2.16.840.1.913698.3.579. 2.462 Unknown [id number] 2.16.840.1.961225.3.579. 2.462 Unknown [id number] 2.16.840.1.176647.3.579. 2.462 Unknown [id number] 2.16.840.1.843889.3.579. 2.462 Unknown [id number] 2.16.840.1.518208.3.579. 2.462 Unknown [id number] 2.16.840.1.467357.3.579. 2.462 Social History Date Type Detail Facility Start: 08-30-2020 End: 07-01-2021 Tobacco smoking status WIIS Never smoker [facility] Start: 08-30-2020 End: 07-01-2021 Tobacco use and exposure Never used [facility] Start: 08-30-2020 End: 07-28-2024 Alcohol intake Ex-drinker (finding) [facility] Start: 1940 Sex Assigned At Not on file [facility] Start: 05-23-2021 End: 04-15-2022 Exposure to SARS-CoV-2 (event) Not sure [facility] Start: 02-26-2023 End: 05-20-2023 Tobacco smoking consumption unknown [facility] Start: 08-30-2020 End: 01-25-2023 Cigarette pack-years [facility] Start: 05-06-2020 End: 06-21-2024 Alcohol intake Current non-drinker of alcohol (finding) [facility] Start: 06-25-2022 End: 01-25-2023 Tobacco use panel [facility] Start: 08-30-2020 Gender identity Identifies as male gender (finding) [facility] Start: 08-30-2020 Sexual orientation Heterosexual (finding) [facility] Adult Depression Screening Assessment 0 [facility] Start: 01-15-2023 Alcohol Comment beer occasionally [facility] Start: 1940 Sex Assigned At Male [facility] Start: 05-20-2023 Tobacco smoking status NHIS Ex-smoker (finding) [facility] Start: 05-16-2024 End: 06-02-2024 Sex Male (finding) [facility] Medical Equipment Procedure Code Equipment Code Equipment Origin al Text Equipment Identifier Dates Syringe 4ml Pre-Filled Sealant Preveleak - [id number] Start: 08-12-2021 Comment on above: Description: CHARGE ONLY System 40mm Heather Exclusion Flex Atriclip - [id number] Start: 08-12-2021 Inspiris - Aorti c Valve 27mm [id number] Start: 08-12-2021 Clinical Notes 02-21-2014 to 08-12-2024 Miko Cox MD - 07/28/2024 12:12 PM EDTPatient InstructionsPatient InstructionsCoSilvana cobb II, OD - 06/21/2024 11:59 AM EDT Note Date & Type Note Facility 08-12-2024 Note [facility] DISCHARGE [facility] -- [facility] Kevin White : 1940 Admitted: 08/07/2024 Discharge Date: 08/12/24 PCP Handoff Recommended Outpatient Testing None Results Pending At Discharge none Clinical Summary Kevin White is a 83 y.o. male patient of Moi Gibson MD with history of CVA, chronic heart failure preserved ejection fraction, coronary artery disease with CABG, atrial fibrillation, hyperlipidemia, hypothyroidism, diabetes mellitus presented to [facility] on 08/07/2024 with slurred speech, and dysphagia more than 24-hour before presentation, admitted for stroke rule out. Right superior cerebellar subacute infarction Presented with slurred speech, facial droop and dysphagia CT head no acute intracranial bleeding MRI brain with subacute infarction as mentioned above. Patient stopped taking Eliquis about a month ago as it was expensive. Neurology Dr. Mackenzie rechecked with Dr. Cox from cardiology and [place] with resuming anticoagulation. Aspirin, Coumadin, statin. A1c 6.0. [facility]charge to [facility]. Chronic diastolic heart failure Chronic Atrial fibrillation S/p MAZE/LA clipping 07/23/21 Coronary artery disease status post CABG x 3 in 2021 Hypertension, EKG reviewed in A-fib with normal rate. Discussed with Dr Mackenzie, who spoke with Dr Cox, will restart AC. Per neurology will switch to Coumadin. Telemetry reviewed remains in A-fib but rate controlled. Diabetes mellitus type 2 A1C6, on metformin. Sliding scale insulin NAJMA Not on CPAP GERD PPI. Discharge Medications Discharge Medications New Medications Details atorvastatin 40 MG tablet Commonly known as: LIPITOR Take 1 (one) tablet (40 mg total) by mouth nightly . Quantity: 30 tablet warfarin 2 MG tablet Commonly known as: COUMADIN Take 1 tablet daily . Quantity: 30 tablet Modified Medications Details amLODIPine 10 MG tablet Commonly known as: NORVASC What changed: Another medication with the same name was removed. Continue taking this medication, and follow the directions you see here. Take 1 (one) tablet (10 mg total) by mouth daily . Quantity: 30 tablet FLUoxetine 40 MG capsule Commonly known as: PROZAC What changed: Another medication with the same name was removed. Continue taking this medication, and follow the directions you see here. Take 1 (one) capsule (40 mg total) by mouth daily . lisinopriL 20 MG tablet Commonly known as: PRINIVIL,ZESTRIL What changed: medication strength how much to take Take 1 (one) tablet (20 mg total) by mouth daily with lunch . Quantity: 30 tablet Medications To Continue Details aspirin 81 MG EC tablet Take 1 (one) tablet (81 mg total) by mouth daily . cyanocobalamin 1000 MCG tablet Commonly known as: B-12 Take 1 (one) tablet (1,000 mcg total) by mouth daily . furosemide 20 MG tablet Commonly known as: Lasix Take 1 (one) tablet (20 mg total) by mouth daily as needed Worsening leg swelling, weight gain of more than 5 pounds overnight, or shortness of breath . Quantity: 90 tablet levothyroxine 175 MCG tablet Commonly known as: SYNTHROID, LEVOTHROID Take 1 (one) tablet (175 mcg total) by mouth daily . metFORMIN 500 MG 24 hr tablet Commonly known as: GLUCOPHAGE-XR Take 1 (one) tablet (500 mg total) by mouth 2 (two) times a day . oxyBUTYnin 10 MG 24 hr tablet Commonly known as: DITROPAN-XL pantoprazole 40 MG tablet Commonly known as: PROTONIX Take 1 (one) tablet (40 mg total) by mouth daily . tamsulosin 0.4 mg capsule Commonly known as: FLOMAX Take 2 (two) capsules (0.8 mg total) by mouth daily . therapeutic multivitamin tablet Commonly known as: THERAGRAN Take 1 (one) tablet by mouth daily . Stopped Medications amLODIPine 5 MG tablet Commonly known as: NORVASC You also have another medication with the same name that you need to continue taking as instructed. esomeprazole 40 MG capsule Commonly known as: NEXIUM FLUoxetine 20 MG capsule Commonly known as: PROZAC You also have another medication with the same name that you need to continue taking as instructed. rosuvastatin 20 MG tablet Commonly known as: CRESTOR Physician(s) Follow Up: Christina Branham, [employer] [address] [phone] Follow up You will receive a call to schedule an appointment Condition at Discharge: Stable Disposition: SNF I reviewed discharge recommendations with the patient in person. Patient instructions, including activity, were given to the patient/family at discharge. On day of discharge I saw Kevin White and spent: > 30 minutes on discharge. Completed by: Taco Raymond MD on 08/12/24, 11:40 AM AUTHENTICATED BY TACO RAYMOND, ON 08/12/2024 11:41:26 [facility] 08-11-2024 Note HMS PROGRESS NOTE Patient Name: Kevin White : 1940 Assessment and Plan Kevin White is a 83 y.o. male patient of Moi iGbson MD with history of CVA, chronic heart failure preserved ejection fraction, coronary artery disease with CABG, atrial fibrillation, hyperlipidemia, hypothyroidism, diabetes mellitus presented to [facility] on 08/07/2024 with slurred speech, and dysphagia more than 24-hour before presentation, admitted for stroke rule out. Right superior cerebellar subacute infarction Presented with slurred speech, facial droop and dysphagia CT head no acute intracranial bleeding MRI brain with subacute infarction as mentioned above. Patient stopped taking Eliquis about a month ago as it was expensive. Neurology Dr. Mackenzie rechecked with Dr. Cox from cardiology and okay with resuming anticoagulation. Aspirin, Coumadin, statin. A1c 6.0. 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 Case management for placement. Discussed with case management, had a surgery yesterday and could not get hold of her yesterday. Referrals have been sent to [facility] and then [facility] as her second choice. Chronic diastolic heart failure Chronic Atrial fibrillation S/p MAZE/LA clipping 07/23/21 Coronary artery disease status post CABG x 3 in 2021 Hypertension, EKG reviewed in A-fib with normal rate. Discussed with Dr Mackenzie, who spoke with Dr Cox, will restart AC. Per neurology will switch to Coumadin. Telemetry reviewed remains in A-fib but rate controlled. Diabetes mellitus type 2 A1C6 Sliding scale insulin NAJMA Not on CPAP Resolved acute medical issues Discharge Planning Patient Medically Ready for Discharge: no Patient requires continued hospitalization due to: Therapies Expected Date of Discharge: 2-3 days Expected Discharge Location: [facility] Quality Measures DVT Prophylaxis: lovenox Adame Catheter: absent Code Status Full Code Primary Contact Information Subjective Remains clinically stable. [facility] pending [facility]. Objective BP 136/81 Pulse 68 Temp 97.8 degrees F (36.6 degrees C) (Oral) Resp 18 Ht 6' Wt 88.5 kg (195 lb 1.7 oz) SpO2 94% BMI 26.46 kg/m Physical Examination General Appearance: alert; acute on chronically ill appearing; in mild acute distress HEENT: Head- normocephalic; Eyes- EOMI, sclera anicteric; Throat- mucous membranes moist Cardiovascular: regular rate and rhythm; normal S1, S2; no murmurs, rubs, clicks or gallops; peripheral edema absent Respiratory: lungs clear to auscultation; without wheezes, rales or rhonchi; on room air Abdomen: soft, non-tender, non-distended Neurological: oriented x 1; strength appears equal bilaterally. Minimal left-sided droop noted. Musculoskeletal: no significant deformity or tenderness to palpation Skin: normal coloration Psych: normal mood and affect AUTHENTICATED BY TACO RAYMOND, ON 08/11/2024 12:31:27 [facility] 08-10-2024 Note HMS PROGRESS NOTE Patient Name: Kevin White : 1940 Assessment and Plan Kevin White is a 83 y.o. male patient of Moi Gibson MD with history of CVA, chronic heart failure preserved ejection fraction, coronary artery disease with CABG, atrial fibrillation, hyperlipidemia, hypothyroidism, diabetes mellitus presented to [facility] on 08/07/2024 with slurred speech, and dysphagia more than 24-hour before presentation, admitted for stroke rule out. Right superior cerebellar subacute infarction Presented with slurred speech, facial droop and dysphagia CT head no acute intracranial bleeding MRI brain with subacute infarction as mentioned above. Patient stopped taking Eliquis about a month ago as it was expensive. Neurology Dr. Mackenzie rechecked with Dr. Cox from cardiology and stephenson with resuming anticoagulation. Aspirin, Coumadin, statin. A1c 6.0. 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 Case management for placement. Discussed with case management, had a surgery yesterday and could not get hold of her yesterday. Referrals have been sent to [facility] and then [facility] as her second choice. Chronic diastolic heart failure Chronic Atrial fibrillation S/p MAZE/LA clipping 07/23/21 Coronary artery disease status post CABG x 3 in 2021 Hypertension, EKG reviewed in A-fib with normal rate. Discussed with Dr Mackenzie, who spoke with Dr Cox, will restart AC. Per neurology will switch to Coumadin. Telemetry reviewed remains in A-fib today. Continue Aspirin. Diabetes mellitus type 2 A1C6 Sliding scale insulin NAJMA Not on CPAP Resolved acute medical issues Discharge Planning Patient Medically Ready for Discharge: no Patient requires continued hospitalization due to: Therapies Expected Date of Discharge: 2-3 days Expected Discharge Location: [facility] Quality Measures DVT Prophylaxis: lovenox Adame Catheter: absent Code Status Full Code Primary Contact Information Subjective Patient is feeling better eating breakfast. Oriented x 1. Speech is better. Objective BP 115/73 Pulse 67 Temp 98.2 degrees F (36.8 degrees C) (Oral) Resp 16 Ht 6' Wt 88.5 kg (195 lb 1.7 oz) SpO2 95% BMI 26.46 kg/m Physical Examination General Appearance: alert; acute on chronically ill appearing; in mild acute distress HEENT: Head- normocephalic; Eyes- EOMI, sclera anicteric; Throat- mucous membranes moist Cardiovascular: regular rate and rhythm; normal S1, S2; no murmurs, rubs, clicks or gallops; peripheral edema absent Respiratory: lungs clear to auscultation; without wheezes, rales or rhonchi; on room air Abdomen: soft, non-tender, non-distended Neurological: oriented x 1; strength appears equal bilaterally. Minimal left-sided droop noted. Musculoskeletal: no significant deformity or tenderness to palpation Skin: normal coloration Psych: normal mood and affect AUTHENTICATED BY TACO RAYMOND ON 08/10/2024 12:25:06 [facility] 08-09-2024 Note HMS PROGRESS NOTE Patient Name: Kevin White : 1940 Assessment and Plan Kevin White is a 83 y.o. male patient of Moi Gibson MD with history of CVA, chronic heart failure preserved ejection fraction, coronary artery disease with CABG, atrial fibrillation, hyperlipidemia, hypothyroidism, diabetes mellitus presented to [facility] on 08/07/2024 with slurred speech, and dysphagia more than 24-hour before presentation, admitted for stroke rule out. Right superior cerebellar subacute infarction Presented with slurred speech, facial droop and dysphagia CT head no acute intracranial bleeding MRI brain with subacute infarction as mentioned above. Patient stopped taking Eliquis about a month ago as it was expensive. Neurology Dr. Mackenzie rechecked with Dr. Cox from cardiology and okay with resuming anticoagulation. Aspirin, Coumadin, statin. A1c 6.0. 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 Case management for placement. Chronic diastolic heart failure Chronic Atrial fibrillation S/p MAZE/LA clipping 07/23/21 Coronary artery disease status post CABG x 3 in 2021 Hypertension, Remains in A-fib. Has not been on anticoagulation according to his . Outpatient cardiology note still mentioning continue Eliquis? EKG reviewed in A-fib with normal rate. Discussed with Dr Mackenzie, who spoke with Dr Cox, will restart AC. Per neurology will switch to Coumadin. Continue Aspirin. Diabetes mellitus type 2 A1C6 Sliding scale insulin NAJMA Not on CPAP Resolved acute medical issues Discharge Planning Patient Medically Ready for Discharge: no Patient requires continued hospitalization due to: Therapies Expected Date of Discharge: 2-3 days Expected Discharge Location: [facility] Quality Measures DVT Prophylaxis: lovenox Adame Catheter: absent Code Status Full Code Primary Contact Information Subjective Eating breakfast. Has no complaints today. Objective BP (!) 175/92 Pulse 60 Temp 97.6 degrees F (36.4 degrees C) (Oral) Resp 16 Ht 6' Wt 88.5 kg (195 lb 1.7 oz) SpO2 95% BMI 26.46 kg/m Physical Examination General Appearance: alert; acute on chronically ill appearing; in mild acute distress HEENT: Head- normocephalic; Eyes- EOMI, sclera anicteric; Throat- mucous membranes moist Cardiovascular: regular rate and rhythm; normal S1, S2; no murmurs, rubs, clicks or gallops; peripheral edema absent Respiratory: lungs clear to auscultation; without wheezes, rales or rhonchi; on room air Abdomen: soft, non-tender, non-distended Neurological: oriented x 1; strength appears equal bilaterally. Minimal left-sided droop noted. Musculoskeletal: no significant deformity or tenderness to palpation Skin: normal coloration Psych: normal mood and affect AUTHENTICATED BY TACO RAYMOND ON 08/09/2024 12:30:56 [facility] 08-09-2024 Note Neurology Inpatient Follow-up [facility] 08/09/2024 Patient: Kevin White Date of : 1940 (83 y.o.) Referring Provider: Refer to consult order in electronic medical record PCP: Moi Gibson MD ASSESSMENT: Right superior cerebellar subacute infarction Atrial fibrillation s/p MAZE procedure Hypertension Hyperlipidemia DM-II NAJMA, not compliant with CPAP 83 y.o. 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 Patient's LKW was 2130 on 08/06. Neurology was consulted due to concern for stroke. MRI brain confirmed subacute infarction in right superior cerebellar hemisphere. Etiology of stroke is likely embolic in etiology. Patient's reports that he stopped Eliquis a month ago as it was too expensive, and someone from cardiology office told her that he needn't be on it. Patient's other vascular risk factors include hypertension, advanced age, and untreated NAJMA. PLAN: - Continue home aspirin 81 mg daily. - Patient stopped taking Eliquis a month ago as it was expensive. Checked with Dr. Cox who is okay with resuming anticoagulation, will do Coumadin instead of Eliquis due to cost. - Pharmacy consulted for assistance with Coumadin. Will bridge with heparin stroke nomogram, no boluses. - Continue Lipitor 40 mg daily - Target normotension - PT/OT/ACADEMIC SERVICES PROFESSIONAL consult - Recommend outpatient sleep medicine referral for untreated NAJMA - Outpatient follow-up with stroke clinic, referral sent I will keep following up on results of INR. No further inpatient workup. Please contact if you have any questions or concerns. Soren Mackenzie MD Staff Neurologist [facility] Admitted with these risk variables:Cerebral Infarction NIHSS = 4. Please see assessment and plan for further details. DIAGNOSTIC TESTING SUMMARY: Resulted Testing: (MRI/CT/XR, EEG, EMG, CSF, Cardiac, Labs) CBC-within normal limits CMP-within normal limits Urine drug screen-negative [id number] Lipid panel: LDL-48 CTA head/neck- No LVO, proximal right VA stenosis, Echo- EF of 41%, mild TVR, severely enlarged LA, 50% mid cervical left ICA stenosis. MRI brain w/o contrast- Subacute infarction in right superior cerebellar hemisphere without any surrounding mass effect. Chronic infarction in right posterior frontal lobe and bilateral cerebellar hemispheres noted. SUBJECTIVE: Chief Complaint/Reason for Consult: Stroke Informant(s): Patient and History of Present Illness: Kevin White is a 83 y.o. 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 Patient's LKW was 2130 on 08/06. Neurology was consulted due to concern for stroke. Patient was reportedly in his usual state of health when he went to bed at 9:30 PM on 08/06. Patient woke up the next morning with generalized weakness where he felt like he could not walk. noticed that he was slurring his words and he also had trouble swallowing which prompted the hospital admission. He denies any associated numbness, vision loss, dizziness. 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 Interval History 08/09: No acute events overnight. Patient denies any new neurological deficits. INR today is 1.2 Review of Systems: All systems reviewed and negative except pertinent positives and negatives documented in the History of Present Illness (HPI). History: Past Medical History: Diagnosis Date Arthritis Back pain CHF (congestive heart failure) (HCC) COPD (chronic obstructive pulmonary disease) (HCC) Coronary artery disease Diabetes mellitus (HCC) Diabetes mellitus, type 2 (HCC) Disease of thyroid gland GERD (gastroesophageal reflux disease) Hernia of abdominal wall Hyperlipidemia Hypertension Myocardial infarction (HCC) Sleep apnea, obstructive refuses to use c-pap Stroke (HCC) Past Surgical History: Procedure Laterality Date CABG AVR W/ MAZE Bilateral 08/12/2021 Procedure: CORONARY ARTERY BYPASS GRAFT TIMES THREE (krueger-lad, svg-d1, svg-drca)WITH ENDOVEIN HARVEST, Aortic valve replacement (27mm Paul Inspiris), full LA MAZE ([employer]compass RFA box, RFA HEATHER, cryo RA caval and RAA line), LEFT ATRIAL APPENDAGE LIGATION (40mm AtriCLIP), TRANSESOPHAGEAL ECHOCARDIOGRAM; Surgeon: Luis Beasley MD; Location: [facility]; Service: Cardiothoracic CARDIAC CATHETERIZATION CARDIAC CATHETERIZATION Bilateral 07/01/2021 No intervention, right radial CARDIAC CATHETERIZATION N/A 07/01/2021 Procedure: Coronary Angiogram; Vital (more content not included)... [facility] 08-08-2024 [place] [facility] Patient Name: Kevin White : 1940 Assessment and Plan Kevin White is a 83 y.o. male patient of Moi Gibson MD with history of CVA, chronic heart failure preserved ejection fraction, coronary artery disease with CABG, atrial fibrillation, hyperlipidemia, hypothyroidism, diabetes mellitus presented to [facility] on 08/07/2024 with slurred speech, and dysphagia more than 24-hour before presentation, admitted for stroke rule out. Right superior cerebellar subacute infarction Presented with slurred speech, facial droop and dysphagia CT head no acute intracranial bleeding MRI brain with subacute infarction as mentioned above. 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 Aspirin. Coumadin as below. Statin. A1c 6.0. Neurology evaluation. Likely needs placement. Case management following. Chronic diastolic heart failure Chronic Atrial fibrillation S/p MAZE/LA clipping 07/23/21 Coronary artery disease status post CABG x 3 in 2021 Hypertension, Remains in A-fib. Has not been on anticoagulation according to his . Outpatient cardiology note still mentioning continue Eliquis? EKG reviewed in A-fib with normal rate. Discussed with Dr Mackenzie, who spoke with Dr Cox, will restart AC. Per neurology will switch to Coumadin. Continue Aspirin. Diabetes mellitus type 2 A1C6 Sliding scale insulin NAJMA Not on CPAP Resolved acute medical issues Discharge Planning Patient Medically Ready for Discharge: no Patient requires continued hospitalization due to: Therapies Expected Date of Discharge: 2-3 days Expected Discharge Location: [facility] Quality Measures DVT Prophylaxis: lovenox Adame Catheter: absent Code Status Full Code Primary Contact Information Subjective Patient oriented to person only. Objective BP (!) 168/79 (BP Location: Right arm, Patient Position: Lying) Pulse 63 Temp 97.7 degrees F (36.5 degrees C) (Oral) Resp 18 Ht 6' Wt 88.5 kg (195 lb 1.7 oz) SpO2 95% BMI 26.46 kg/m Physical Examination General Appearance: alert; acute on chronically ill appearing; in mild acute distress HEENT: Head- normocephalic; Eyes- EOMI, sclera anicteric; Throat- mucous membranes moist Cardiovascular: regular rate and rhythm; normal S1, S2; no murmurs, rubs, clicks or gallops; peripheral edema absent Respiratory: lungs clear to auscultation; without wheezes, rales or rhonchi; on room air Abdomen: soft, non-tender, non-distended Neurological: oriented x 1; strength appears equal bilaterally. Minimal left-sided droop noted. Musculoskeletal: no significant deformity or tenderness to palpation Skin: normal coloration Psych: normal mood and affect AUTHENTICATED BY TACO RAYMOND, ON 08/08/2024 15:37:40 [facility] 08-07-2024 Note HMS HISTORY AND PHYS ICAL -- [facility] Patient Name: Kevin White : 1940 MR #: [id number] Admit Date: 08/07/2024 Physicians: Moi Gibson MD (Family); No ref. provider found (Referring) Kevin White is a 83 y.o. male patient of Moi Gibson MD with history of CVA, chronic heart failure preserved ejection fraction, coronary artery disease with CABG, atrial fibrillation, hyperlipidemia, hypothyroidism, diabetes mellitus presented to [facility] on 08/07/2024 with slurred speech, and dysphagia more than 24-hour before presentation, admitted for stroke rule out. Slurred speech, facial droop and dysphagia Stroke ruled out Presenting more than [address] head no acute intracranial bleeding Keep n.p.o. given high risk for aspiration Aspirin rectal Speech evaluation, PT/OT Lipid panel, A1c Brain MRI Permissive hypertension Neurology consult Chronic diastolic heart failure Atrial fibrillation S/p MAZE/LA clipping 07/23/21 Coronary artery disease status post CABG x 3 in 2021 Hypertension, hold antihypertensive medications Diabetes mellitus type 2 Hemoglobin A1c morning Sliding scale insulin Residence prior to admission: house or apartment Was patient transferred from outlying hospital or ED no Quality Measures DVT Prophylaxis: lovenox Adame Catheter: absent Medication Reconciliation: Verified Admitted with these risk variables:Hypovolemia and Encephalopathy structural. Please see assessment and plan for further details. Estimated Date of Discharge greater than 2 midnights Code Status Full Code; code status verified on 08/07/2024 with next of kin Chief Complaint dysphagia, slurred speech History of Present Illness Kevin White is a 83 y.o. male patient of Moi Gibson MD with history of CVA, chronic heart failure preserved ejection fraction, coronary artery disease with CABG, atrial fibrillation, hyperlipidemia, hypothyroidism, diabetes mellitus presented to [facility] on 08/07/2024 with slurred speech, and dysphagia more than 24-hour before presentation, admitted for stroke rule out. Symptoms started on Wednesday, patient had imbalance and weakness previously able to walk independently, on Wednesday patient developed facial droop, slurred speech and was not able to eat anything, he had progressive dysphagia, he denies upper extremity weakness, no facial numbness or tingling, no seizure-like activity. Past Medical History Past Medical History: Diagnosis Date Arthritis Back pain CHF (congestive heart failure) (HCC) COPD (chronic obstructive pulmonary disease) (HCC) Coronary artery disease Diabetes mellitus (HCC) Diabetes mellitus, type 2 (HCC) Disease of thyroid gland GERD (gastroesophageal reflux disease) Hernia of abdominal wall Hyperlipidemia Hypertension Myocardial infarction (HCC) Sleep apnea, obstructive refuses to use c-pap Stroke (HCC) Past Surgical History Past Surgical History: Procedure Laterality Date CABG AVR W/ MAZE Bilateral 08/12/2021 Procedure: CORONARY ARTERY BYPASS GRAFT TIMES THREE (krueger-lad, svg-d1, svg-drca)WITH ENDOVEIN HARVEST, Aortic valve replacement (27mm Paul Inspiris), full LA MAZE ([employer] RFA box, RFA HEATHER, cryo RA caval and RAA line), LEFT ATRIAL APPENDAGE LIGATION (40mm AtriCLIP), TRANSESOPHAGEAL ECHOCARDIOGRAM; Surgeon: Luis Beasley MD; Location: [facility]; Service: Cardiothoracic CARDIAC CATHETERIZATION CARDIAC CATHETERIZATION Bilateral 07/01/2021 No intervention, right radial CARDIAC CATHETERIZATION N/A 07/01/2021 Procedure: Coronary Angiogram; Surgeon: Shmuel Villalpando MD; Location: [facility]; Service: Cardiovascular CARDIAC CATHETERIZATION N/A 07/01/2021 Procedure: Right Heart Cath; Surgeon: Shmuel Villalpando MD; Location: [facility]; Service: Cardiovascular CARDIAC CATHETERIZATION N/A 07/01/2021 Procedure: Left Ventriculogram; Surgeon: Shmuel Villalpando MD; Location: [facility]; Service: Cardiovascular CARDIAC CATHETERIZATION N/A 07/01/2021 Procedure: Left Heart Cath; Surgeon: Shmuel Villalpando MD; Location: [facility]; Service: Cardiovascular cataracts removed Bilateral CORONARY STENT PLACEMENT EP - INTERVENTION N/A 08/24/2021 Procedure: Cardioversion/CTA; Surgeon: Abhishek Lauren MD; Location: [facility]; Service: Cardiovascular HERNIA REPAIR W/HYDROCELE Right Family History Family History Problem Relation Age of Onset Heart disease Father Social History Tobacco Use History[1] Social History Substance and Sexual Activity Alcohol Use Not Currently Comment: beer occasionally Social History Substance and Sexual Activity Drug Use Never Allergy Information I have reviewed the patient's allergies. Patient has no known allergies. Home Medications Home medications were reviewed. Review Of Systems All releva (more content not included)... [facility] 07-28-2024 Note Interventional cardi ology Returning Patient Clinic Visit [facility], Heart & Vascular 07/28/2024 Miko Cox MD [address], 3rd Floor Medical Office Building [facility] [id number] [facility], physician's office 07/28/2024 Patient: Kevin White Date of : 1940 (83 y.o.) Referring Provider: No ref. provider found PCP: No, Physician Chief Complaint: No chief complaint on file. Date of Service: 07/28/2024 Assessment and Plan: 1. CAD status post three-vessel CABG (KRUEGER to LAD, SVG to D1, SVG to distal RCA) with full HEATHER maze, left atrial appendage ligation/atrial clip, denies chest pain, continue aspirin, statin, LEANDRA 2. Severe aortic stenosis status post aortic valve replacement with 27 mm Inspiris valve, no stenosis on last echo RAMON 1.8 cm December 2022 3. Paroxysmal A-fib, currently normal sinus rhythm, continue Tikosyn, [id number] over 2, continue Eliquis 4. Hypertension, blood pressure currently controlled, continue norvasc, lisinopril, low-sodium diet 5. Hyperlipidemia, continue statin 6. 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 Diabetes, managed per PCP, recommend keep hemoglobin A1c below 7 Plan Continue amlodipine 10 mg daily lisinopril 10 mg daily for blood pressure control Continue aspirin 81 mg daily Continue Crestor 20 mg daily Follow-up: No follow-ups on file. ------ History of Present Illness: Kevin White is a 83 y.o. man with a past medical history of CAD status post CABG (KRUEGER to LAD, SVG to first diagonal, SVG to distal right conduit) July 2021, aortic valve replacement for severe with 27 mm Paul Inspiris pericardial valve, paroxysmal A-fib status post left atrial maze with an encompass RF box lesion, RF left atrial appendage lesion, cryo right atrial Dianelys lesion, and cryo R atrial appendage line/ligation left atrial pended with 40 mm atrial clip with Dr. 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 Since last in the clinic has been stable overall. Denies any anginal chest pain or shortness of breath. No orthopnea no PND no leg swelling. No history of palpitations presyncope syncope. Main complaints to be his fatigue and tiredness and tendency to fall. He was in rehab for some time which really helped him but when he came back home he continues to have issues with his walking and falling. Still his keeps him active try to make him walk more often as much as he could Previous cardiac testing, recent cardiology notes, PCP notes, and labs reviewed. Objective Review of Systems: All systems were reviewed and noted to be negative unless otherwise stated in HPI. Past Medical History: Diagnosis Date Arthritis Back pain CHF (congestive heart failure) (HCC) COPD (chronic obstructive pulmonary disease) (HCC) Coronary artery disease Diabetes mellitus (HCC) Diabetes mellitus, type 2 (HCC) Disease of thyroid gland GERD (gastroesophageal reflux disease) Hernia of abdominal wall Hyperlipidemia Hypertension Myocardial infarction (HCC) Sleep apnea, obstructive refuses to use c-pap Stroke (HCC) Past Surgical History: Procedure Laterality Date CABG AVR W/ MAZE Bilateral 08/12/2021 Procedure: CORONARY ARTERY BYPASS GRAFT TIMES THREE (krueger-lad, svg-d1, svg-drca)WITH ENDOVEIN HARVEST, Aortic valve replacement (27mm Paul Inspiris), full LA MAZE (Encompass RFA box, RFA HEATHER, cryo RA caval and RAA line), LEFT ATRIAL APPENDAGE LIGATION (40mm AtriCLIP), TRANSESOPHAGEAL ECHOCARDIOGRAM; Surgeon: Luis Beasley MD; Location: [facility]; Service: Cardiothoracic CARDIAC CATHETERIZATION CARDIAC CATHETERIZATION Bilateral 07/01/2021 No intervention, right radial CARDIAC CATHETERIZATION N/A 07/01/2021 Procedure: Coronary Angiogram; Surgeon: Shmuel Villalpando MD; Location: [facility]; Service: Cardiovascular CARDIAC CATHETERIZATION N/A 07/01/2021 Procedure: Right Heart Cath; Surgeon: Shmuel Villalpando MD; [facility]; Service: Cardiovascular CARDIAC CATHETERIZATION N/A 07/01/2021 Procedure: Left Ventriculogram; Surgeon: Shmuel Villalpando MD; Location: [facility]; Service: Cardiovascular CARDIAC CATHETERIZATION N/A 07/01/2021 Procedure: Left Heart Cath; Surgeon: Shmuel Villalpando MD; Location: [facility]; Service: Cardiovascular cataracts removed Bilateral CORONARY STENT PLACEMENT EP - INTERVENTION N/A 08/24/2021 Procedure: Cardioversion/CTA; Surgeon: Abhishek Lauren MD; Location: [facility]; Service: Cardiovascular HERNIA REPAIR W/HYDROCELE Right Family History Problem Relation Age of Onset Heart disease Father Social History Tobacco Use Smoking Status Never Smokeless Tobacco Never Al (more content not included)... [facility] 07-28-2024 History of Present illness Narrative Images from the original note were not included. Interventional cardiology Returning Patient Clinic Visit [facility] Heart [facility] Vascular 07/28/2024 Miko Cox MD [facility] [address], 3rd Floor Medical Office [facility] [phone] [facility], physician's office 07/28/2024 Patient: Kevin White Date of : 1940 (83 y.o.) Referring Provider: No ref. provider found PCP: No, Physician Chief Complaint: No chief complaint on file. Date of Service: 07/28/2024 Assessment and Plan: 1. CAD status post three-vessel CABG (KRUEGER to LAD, SVG to D1, SVG to distal RCA) with full HEATHER maze, left atrial appendage ligation/atrial clip, denies chest pain, continue aspirin, statin, LEANDRA 2. Severe aortic stenosis status post aortic valve replacement with 27 mm Inspiris valve, no stenosis on last echo RAMON 1.8 cm December 2022 3. Paroxysmal A-fib, currently normal sinus rhythm, continue Tikosyn, [id number] over 2, continue Eliquis 4. Hypertension, blood pressure currently controlled, continue norvasc, lisinopril, low-sodium diet 5. Hyperlipidemia, continue statin 6. 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 Diabetes, managed per PCP, recommend keep hemoglobin A1c below 7 Plan Continue amlodipine 10 mg daily lisinopril 10 mg daily for blood pressure control Continue aspirin 81 mg daily Continue Crestor 20 mg daily Follow-up: No follow-ups on file. History of Present Illness: Kevin White is a 83 y.o. man with a past medical history of CAD status post CABG (KRUEGER to LAD, SVG to first diagonal, SVG to distal right conduit) July 2021, aortic valve replacement for severe with 27 mm Paul Inspiris pericardial valve, paroxysmal A-fib status post left atrial maze with an encompass RF box lesion, RF left atrial appendage lesion, cryo right atrial Dianelys lesion, and cryo R atrial appendage line/ligation left atrial pended with 40 [address] clip [address] Dr. 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 Since last in the clinic has been stable overall. Denies any anginal chest pain or shortness of breath. No orthopnea no PND no leg swelling. No history of palpitations presyncope syncope. Main complaints to be his fatigue and tiredness and tendency to fall. He was in rehab for some time which really helped him but when he came back home he continues to have issues with his walking and falling. Still his keeps him active try to make him walk more often as much as he could Previous cardiac testing, recent cardiology notes, PCP notes, and labs reviewed. Objective Review of Systems: All systems were reviewed and noted to be negative unless otherwise stated in HPI. Past Medical History: Diagnosis Date Arthritis Back pain CHF (congestive heart failure) (HCC) COPD (chronic obstructive pulmonary disease) (HCC) Coronary artery disease Diabetes mellitus (HCC) Diabetes mellitus, type 2 (HCC) Disease of thyroid gland GERD (gastroesophageal reflux disease) Hernia of abdominal wall Hyperlipidemia Hypertension Myocardial infarction (HCC) Sleep apnea, obstructive refuses to use c-pap Stroke (HCC) Past Surgical History: Procedure Laterality Date CABG AVR W/ MAZE Bilateral 08/12/2021 Procedure: CORONARY ARTERY BYPASS GRAFT TIMES THREE (krueger-lad, svg-d1, svg-drca)WITH ENDOVEIN HARVEST, Aortic valve replacement (27mm Paul Inspiris), full LA MAZE (Encompass RFA box, RFA HEATHER, cryo RA caval and RAA line), LEFT ATRIAL APPENDAGE LIGATION (40mm AtriCLIP), TRANSESOPHAGEAL ECHOCARDIOGRAM; Surgeon: Luis Beasley MD; Location: [facility]; Service: Cardiothoracic CARDIAC CATHETERIZATION CARDIAC CATHETERIZATION Bilateral 07/01/2021 No intervention, right radial CARDIAC CATHETERIZATION N/A 07/01/2021 Procedure: Coronary Angiogram; Surgeon: Shmuel Villalpando MD; Location: [facility]; Service: Cardiovascular CARDIAC CATHETERIZATION N/A 07/01/2021 Procedure: Right Heart Cath; Surgeon: Shmuel Villalpando MD; Location: [facility]; Service: Cardiovascular CARDIAC CATHETERIZATION N/A 07/01/2021 Procedure: Left Ventriculogram; Surgeon: Shmuel Villalpando MD; Location: [facility]; Service: Cardiovascular CARDIAC CATHETERIZATION N/A 07/01/2021 Procedure: Left Heart Cath; Surgeon: Shmuel Villalpando MD; Location: [facility]; Service: Cardiovascular cataracts removed Bilateral CORONARY STENT PLACEMENT EP - INTERVENTION N/A 08/24/2021 Procedure: Cardioversion/CTA; Surgeon: Abhishek Lauren MD; Location: [facility]; Service: Cardiovascular HERNIA REPAIR W/HYDROCELE Right Family History Problem Relation Age of Onset Heart disease Father Social History Tobacco Use Smoking Status Never Smokeless Tobacco Never Allergies: Patient has no known allergies. All of the above information has been reviewed at today's visit and modified if necessary. Home Medications: Current Outpatient Medications: amLODIPine (NORVASC) 10 MG tablet, Take 1 (one) tablet (10 mg total) by mouth daily ., Disp: 30 tablet, Rfl: 0 aspirin 81 MG EC tablet, Take 1 (one) tablet (81 mg total) by mouth daily ., Disp: , Rfl: esomeprazole (NEXIUM) 40 MG capsule, Take 1 (one) capsule (40 mg total) by mouth every morning before breakfast ., Disp: , Rfl: FLUoxetine (PROZAC) 20 MG capsule, Take 1 (one) capsule (20 mg total) by mouth daily Start: 01/26/23., Disp: 30 capsule, Rfl: 0 levothyroxine (SYNTHROID, LEVOTHROID) 175 MCG tablet, Take 1 (one) tablet (175 mcg total) by mouth daily ., Disp: , Rfl: lisinopriL (PRINIVIL,ZESTRIL) 10 MG tablet, Take 1 (one) tablet (10 mg total) by mouth daily with lunch Start: 08/25/21., Disp: 30 tablet, Rfl: 3 metFORMIN (GLUCOPHAGE-XR) 500 MG 24 hr tablet, Take 1 (one) tablet (500 mg total) by mouth 2 (two) times a day ., Disp: , Rfl: oxyBUTYnin (DITROPAN-XL) 10 MG 24 hr tablet, , Disp: , Rfl: rosuvastatin (CRESTOR) 20 MG tablet, Take 1 (one) tablet (20 mg total) by mouth nightly ., Disp: , Rfl: tamsulosin (FLOMAX) 0.4 mg capsule, Take 2 (two) capsules (0.8 mg total) by mouth daily ., Disp: , Rfl: cyanocobalamin (B-12) 1000 MCG tablet, Take 1 (one) tablet (1,000 mcg total) by mouth daily ., Disp: , Rfl: furosemide (Lasix) 20 MG tablet, Take 1 (one) tablet (20 mg total) by mouth daily as needed Worsening leg swelling, weight gain of more than 5 pounds overnight, or shortness of breath ., Disp: 90 tablet, Rfl: 0 therapeutic multivitamin (THERAGRAN) tablet, Take 1 (one) tablet by mouth daily ., Disp: , Rfl: Physical Exam: There were no vitals taken for this visit. Constitutional: Alert, no acute distress Eyes: Conjunctivae are normal, no discharge noted Respiratory: Lungs clear to auscultation bilaterally Cardiovascular: Controlled rate and regular rhythm, + murmurs appreciated on today's exam, normal S1 and S2, no rubs or gallops Musculoskeletal: Moves all extremities. No cyanosis. Mild ankle edema bilaterally Abdomen: Soft, bowel sounds positive Neurological: Alert and oriented x 3 Skin: Skin is warm and dry Psychiatric: Normal mood and affect, appropriate conversation Cardiovascular Studies: EKG September 2023 A-fib with slow ventricular response, nonspecific ST probably, heart rate 55 CCTA September 2023 Pulmonary Vein and Left Atrial Appendage Anatomy Pulmonary Veins: Normal pulmonary venous drainage. There are four pulmonary veins identified. Two on the right and two on the left. Left Atrial Appendage: S/P clipping. No residual left atrial appendage tissue noted. Left atrium: Left atrial size is Enlarged. Left Ventricle: The ventricular cavity size is within normal limits. There is no abnormal filling defects. Pericardium: Normal thickness with no significant effusion or calcification present. Cardiac valves: Well-seated bioprosthetic aortic valve. Mitral annular calcification. Aorta: Normal caliber thoracic aorta with the following measurements at the PA bifurcation: AAo 35 x 33 mm; Haily 32 x 31 mm. Mild calcification. PLEASE SEE SEPARATE RADIOLOGY REPORT FOR THE NONCARDIAC FINDINGS IMPRESSION S/P left atrial appendage clipping. No residual left atrial appendage tissue noted. Echo December 2022 Summary 1. This study was technically limited, Definity IV contrast was used to enhance endocardial definition. 2. Left ventricular systolic function is normal with an ejection fraction by Biplane Method of Discs of 59 %. 3. And aortic bioprosthesis (27 mm Inspiris) appears well-seated, but is not well visualized. 4. There is no bioprosthetic aortic valve stenosis with a peak velocity of 2.1 m/s, mean gradient of 10 mmHg, and aortic valve area of 1.8 cm2. 5. Left atrial chamber is mildly enlarged with a left atrial volume index of 41 ml/m2 by BP MOD. 6. Compared to the prior study from 11/13/2021, there is no significant interval change. [facility] November 2021 [facility] REPORT INDICATIONS: PAROXYSMAL ATRIAL FIBRILLATION Summary: Baseline atrial fibrillation, average heart rate 56 bpm No patient triggered events Cardiac cath June 2021 Impression: Normal left ventricular systolic function with an estimated LV ejection fraction of 65%. 2. Normal left ventricular end-diastolic pressure 3. Severe aortic valve stenosis with a calculated valve area 0.83 cm 4. Normal resting right heart pressures with no shunting by oximetry 5. Severe triple-vessel coronary disease Recommendations: Target LDL<70 mg/dL with a high-intensity statin Optimal lifestyle habits including smoking cessation, adopting a Mediterranean diet, and regular moderate-intensity exercise (>3 hours weekly) Optimal BP <120/80 mm Hg Patient will be reviewed at the structural heart team meeting for shared decision making regarding transcatheter versus surgical aortic valve replacement and coronary revascularization. Right Heart Catheterization The right heart filling pressure was normal and Baseline: RA mean 2. RV 28/2. PA 26/6 with a mean of 9. Wedge mean 4. Oxygen saturations(%): Ao 96. PA 68. RV 67. RA 68. Predicted O2 consumption to 68 mL/min SVR 1958 PVR 169. Normal cardiac output/index by Summer. Estimated Summer cardiac output 4.25 L/min Cardiac index 1.8 L/min/m The pulmonary artery pressure index was normal. Coronary Findings Diagnostic Dominance: Right Left Main Mid LM lesion is 50% stenosed. IGOR flow is 3. The lesion is not complex (non high-C). Left Anterior Descending Ost LAD lesion is 80% stenosed. IGOR flow is 3. The lesion is type C, eccentric and serial. The lesion is moderately calcified. Dist LAD lesion is 60% stenosed. IGOR flow is 3. The lesion is not complex (non high-C). Left Circumflex Ost Cx lesion is 80% stenosed. IGOR flow is 3. The lesion is type C. The lesion is moderately calcified. Mid Cx lesion is 40% stenosed. IGOR flow is 3. The lesion is not complex (non high-C). The lesion was previously treated using a drug-eluting stent. Previous treatment took place >2 years ago. The lesion has no restenosis. First Obtuse Marginal Branch 1st Mrg lesion is 70% stenosed. IGOR flow is 3. The lesion is not complex (non high-C). Small caliber vessel Right Coronary Artery The vessel is severely calcified. Ost RCA lesion is 70% stenosed. IGOR flow is 3. The lesion is type C and eccentric. The lesion is severely calcified. Angiographically hazy Prox RCA lesion is 70% stenosed. IGOR flow is 3. The lesion is type C. The lesion is moderately calcified. Prox RCA to Mid RCA lesion is 40% stenosed. IGOR flow is 3. The lesion is not complex (non high-C). The lesion was previously treated using a drug-eluting stent. Previous treatment took place >2 years ago. The lesion has no restenosis. Intervention No interventions have been documented. Wall Motion Left Heart Findings Left Ventricle Ejection Fraction: 65%.The left ventricular size is normal. The left ventricular systolic function is normal. LV systolic pressure is normal. Baseline aortic pressure 150/70 LV end diastolic pressure is elevated/hypertensive. Based on LV pressure 190/10 There are no wall motion abnormalities in the left ventricle. Aortic Valve There is severe aortic valve stenosis. Aortic valve area 0.83 cm Aortic valve area index 0.35 cm /m2 Peak to peak gradient 40 Mean gradient 32 The aortic valve is calcified. NM myocardial perfusion multi SPECT September 2020 Summary 1. Abnormal stress nuclear perfusion study consistent with small inferolateral infarct. Ischemia is not demonstrated. 2. Ventricular couplets and triplets with stress. 3. Nondiagnostic ECG portion of stress nuclear perfusion study. Resting ST segment changes. Adequate workload achieved. No chest discomfort. Normal hemodynamic response to exercise. 4. Average exercise tolerance for age. 5. Overall left ventricular systolic function was normal without regional wall motion abnormalities. Gated SPECT imaging reveals normal myocardial wall thickening. Post stress left ventricular ejection fraction is normal, 66 %. Resting left ventricular ejection fraction is normal, 66 %. Left ventricular cavity size is normal. Labs: Lab Results Component Value Date GLUCOSE 174 (H) 10/07/2023 CALCIUM 9.2 10/07/2023 NA 139 10/07/2023 K 4.1 10/07/2023 CL 102 10/07/2023 BUN 19 10/07/2023 CREATININE 1.21 10/07/2023 Lab Results Component Value Date ALT 27 01/16/2023 AST 18 01/16/2023 ALKPHOS 68 01/16/2023 BILITOT 0.7 01/16/2023 Lab Results Component Value Date WBC 7.65 10/15/2023 HGB 13.7 10/15/2023 HCT 41.3 10/15/2023 MCV 96.5 10/15/2023 PLT 111 (L) 10/15/2023 RBC 4.28 (L) 10/15/2023 Lab Results Component Value Date CHOL 125 01/06/2023 LDLCALC 66 01/06/2023 TRIG 110 01/06/2023 HDL 37 (L) 01/06/2023 Lab Results Component Value Date HGBA1C 6.6 (H) 01/06/2023 Lab Results Component Value Date ALT 27 01/16/2023 AST 18 01/16/2023 ALKPHOS 68 01/16/2023 BILITOT 0.7 01/16/2023 The ASCVD Risk score (Sonia DK, et al., 2019) failed to calculate for the following reasons: The 2019 ASCVD risk score is only valid for ages 40 to 79 Risk score cannot be calculated because patient has a medical history suggesting prior/existing ASCVD Please excuse any typographical errors as dictation software was used documented in this encounter [facility] 07-21-2024 Instructions Catarino Colby RN - 07/21/2024 11:58 AM EDT Summary of today's visit with us: Please call if you have any questions. A recall has been placed for your next appointment to alert the Scheduling team to reach out to you- If you have not received a call please reach out to us. No changes in plan of care today. How to contact your Care Team: Provider: Miko Cox MD Nurse: DHIRAJ DouglasN RN Intramural Director: Isaura Hanley MA In case of an emergency please call 911. REFILLS: When in need for refills please call your care team or the office at [phone]. Please include medication name, pharmacy name, and specify 30-day or 90-day supply. Please check with your pharmacy within 24 hours of request for your refill. You must follow up as directed to continue current refills. Thank you! Please note: If you had bloodwork completed today, we will only call you with abnormal results. Please let us know if you would like to be notified otherwise. documented in this encounter [facility] 06-21-2024 Instructions Silvana Caballero II, OD - 06/21/2024 12:01 PM EDT Assessment and Plan E11.9 Type 2 diabetes mellitus without retinopathy (HCC) (primary encounter diagnosis) Comment: Examination shows no ocular diabetic complications today. Discussed need for optimal diabetes control to minimize chance of ocular complications. Advise patient to immediately report worsening in status or additional symptoms. Continue yearly dilated eye examinations. H43.393 Vitreous floaters of both eyes Comment: Vitreal floaters stable both eyes. Retinas flat and intact with no apparent retinal tear or traction. Monitor yearly. 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 Monitor. Z96.1 Pseudophakia, both eyes Comment: Posterior chamber intraocular lenses are well positioned and clear. H52.03 Hyperopia of both eyes H52.223 Regular astigmatism of both eyes H52.4 Presbyopia Comment: Patient happy with vision without glasses at distance and near since cataract surgery. I have confirmed and edited as necessary the relevant HPI, ophthalmic history, ROS, and the neuro exam findings as obtained by others. I have seen and examined Kevin White. I have discussed the case and the management of this patient's care with the Resident/Fellow, if applicable. I also have reviewed and agree with the assessment and plan as stated above and agree with all of its relevant components. documented in this encounter [facility] 06-21-2024 Note HNO ID: [id number] Author: SILVANA CABALLERO II, OD Service: ? Author Type: SWEAT BOX ATTENDANT Type: Progress Notes Filed: 06/21/2024 17:04 Note Text: Assessment and Plan E11.9 Type 2 diabetes mellitus without retinopathy (HCC) (primary encounter diagnosis) Comment: Examination shows no ocular diabetic complications today. Discussed need for optimal diabetes control to minimize chance of ocular complications. Advise patient to immediately report worsening in status or additional symptoms. Continue yearly dilated eye examinations. H43.393 Vitreous floaters of both eyes Comment: Vitreal floaters stable both eyes. Retinas flat and intact with no apparent retinal tear or traction. Monitor yearly. 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 Monitor. Z96.1 Pseudophakia, both eyes Comment: Posterior chamber intraocular lenses are well positioned and clear. H52.03 Hyperopia of both eyes H52.223 Regular astigmatism of both eyes H52.4 Presbyopia Comment: Patient happy with vision without glasses at distance and near since cataract surgery. I have confirmed and edited as necessary the relevant HPI, ophthalmic history, ROS, and the neuro exam findings as obtained by others. I have seen and examined Kvein White. I have discussed the case and the management of this patient's care with the Resident/Fellow, if applicable. I also have reviewed and agree with the assessment and plan as stated above and agree with all of its relevant components. [facility] 06-21-2024 History of Present illness Narrative Assessment and Plan E11.9 Type 2 diabetes mellitus without retinopathy (HCC) (primary encounter diagnosis) Comment: Examination shows no ocular diabetic complications today. Discussed need for optimal diabetes control to minimize chance of ocular complications. Advise patient to immediately report worsening in status or additional symptoms. Continue yearly dilated eye examinations. H43.393 Vitreous floaters of both eyes Comment: Vitreal floaters stable both eyes. Retinas flat and intact with no apparent retinal tear or traction. Monitor yearly. 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 Monitor. Z96.1 Pseudophakia, both eyes Comment: Posterior chamber intraocular lenses are well positioned and clear. H52.03 Hyperopia of both eyes H52.223 Regular astigmatism of both eyes H52.4 Presbyopia Comment: Patient happy with vision without glasses at distance and near since cataract surgery. I have confirmed and edited as necessary the relevant HPI, ophthalmic history, ROS, and the neuro exam findings as obtained by others. I have seen and examined Kevin Vignesh White. I have discussed the case and the management of this patient's care with the Resident/Fellow, if applicable. I also have reviewed and agree with the assessment and plan as stated above and agree with all of its relevant components. documented in this encounter [facility] 02-24-2024 Evaluation note Diagnosis Onset Date Resolution Acquired hypothyroidism acute J anuary 2024 12:43pm BPH (benign prostatic hyperplasia) acute February 23 12:43pm CAD (coronary artery disease) acute February 23 12:43pm Essential hypertension acute [facility] 2024 12:43pm History of CVA (cerebrovascular accident) acute February 23 12:43pm Obstructive sleep apnea acute J anuary 2024 12:43pm Type 2 diabetes mellitus acute February 24, 2024 12:43pm Chronic atrial fibrillation chronic February 23 12:43pm Fatigue noneactive February 23 12:43pm Low platelet count noneactive 2024 12:43pm Anxiety and depression noneactive [facility] 2024 12:43pm Numbness and tingling in left hand noneactive February 23 12:43pm [facility] Work Phone: 1(320) 635-595501-09-2025 Evaluation note* Diagnosis Onset Date Resolution Status Admit Date Acquired hypothyroidism acute J anuary 2024 12:43pm BPH (benign prostatic hyperplasia) acute February 23 12:43pm CAD (coronary artery disease) acute February 24, 2024 12:43pm Essential hypertension acute [facility] 2024 12:43pm History of CVA (cerebrovascular accident) acute 2024 12:43pm Obstructive sleep apnea acute J anuary 2024 12:43pm Type 2 diabetes mellitus acute February 24, 2024 12:43pm Chronic atrial fibrillation chronic February 24, 2024 12:43pm Fatigue noneactive February 23 025 12:43pm Low platelet count noneactive Manan mcdermott 2024 12:43pm Anxiety and depression noneactive Ricardo daugherty 2024 12:43pm Numbness and tingling in lef t hand noneactive February 23 12:43pm Acquired hypothyroidism acute A pril 2024 1:13pm BPH (benign prostatic hyperplasia) acute May 24, 2024 1:13pm CAD (coronary artery disease) acute May 24, 2024 1:13pm Essential hypertension acute Ap ril 2024 1:13pm History of CVA (cerebrovascular accident) acute May 24, 2024 1:13pm Obstructive sleep apnea acute A pril 2024 1:13pm Type 2 diabetes mellitus acute May 24, 2024 1:13pm Chronic atrial fibrillation chronic May 24, 2024 1:13pm Fatigue noneactive May 24 1:13pm Low platelet count noneactive May 24, 2024 1:13pm Anxiety and depression noneactive Ap ril 2024 1:13pm Fall noneactive May 24 1:13pm [facility] Work Phone: [phone]) 950-766212-06-2024 History of Present illness Narrative* Ira Ricci CNP - 01/21/2024 8:00 AM EST Electrophysiology Clinic Note Patient Name: Kevin White MR #: [id number] : 1940 Physicians: Moi Gibson MD (Family); No ref. provider found (Referring) Assessment/Problem List: Atrial fibrillation History of amiodarone use, discontinued 12/2021. Initiated on dofetilide 12/2022, remains on 250 mcg every 12 hours Underwent DCCV 02/2022, 08/2021, most recently 09/2023 S\p of full left atrial maze with an encompass RF box lesion, RF left atrial appendage lesion, cryoright atrial caval lesion, and cryo R atrial appendage line/ligation left atrial appendage with [address] Beasley 6/8/22 CCTA obtained 09/2023 shows no residual HEATHER appendage tissue LA mildly enlarged 2. History of Mobitz I during sleep hours 3. Atrial valve repair 4. CAD s\p CABG 5. History of TIA Plan: Patient is unfortunately in atrial fibrillation today. He was in AF over the summer at his last nurse visit for class III antiarrhythmic monitoring and underwent DCCV September 2023. He reports being asymptomatic however does report he is fatigued. He is rate controlled. Given Tikosyn is clearly not working for him, I discussed pursuing PVI with him today. Patient and decline I did discuss it does not make sense to continue dofetilide since it is not working so will discontinue today. He will continue on rate control plan for now. Heart rate 78 today. Encouraged him if hebecomes symptomatic or has issues, changes his mind about rhythm control to please notify our office. He continues to take Eliquis on a daily basis. He does have an atrial clip that was placed in 2021 and a CCTA obtained September of this year shows no residual HEATHER appendage tissue. He had a CVA in December 2022 and has never followed up with neurology afterwards. Will place a neurology referral and see if he needs to continue Eliquis long-term for CVA prevention. Will see him back in 6 months to assess his symptoms being in AF Chief complaint/reason for visit: AF History of Present Illness: Kevin White is a 83 y.o. y/o male who presents today for follow up regarding AF. Today, patient reports he is doing well. He is mostly quiet and is at bedside speaking for him. She reports he has been fatigued but denies dyspnea. EKG: Atrial fibrillation heart rate 73 bpm QRS 116 ms QTc 468 ms Cardiac studies: Reviewed History: Past Medical History: Diagnosis Date Arthritis Back pain CHF (congestive heart failure) (HCC) COPD (chronic obstructive pulmonary disease) (HCC) Coronary artery disease Diabetes mellitus (HCC) Diabetes mellitus, type 2 (HCC) Disease of thyroid gland GERD (gastroesophageal reflux disease) Hernia of abdominal wall Hyperlipidemia Hypertension Myocardial infarction (HCC) Sleep apnea, obstructive refuses to use c-pap Stroke (HCC) Past Surgical History: Procedure Laterality Date CABG AVR W/ MAZE Bilateral 08/12/2021 Procedure: CORONARY ARTERY BYPASS GRAFT TIMES THREE (krueger-lad, svg-d1, svg- drca)WITH ENDOVEIN HARVEST, Aortic valve replacement (27mm Paul Inspiris), full LA MAZE (Encompass RFA box, RFA HEATHER, cryoRA caval and RAA line), LEFT ATRIAL APPENDAGE LIGATION (40mm AtriCLIP), TRANSESOPHAGEAL ECHOCARDIOGRAM; Surgeon: Luis Beasley MD; Location: [facility]; Service: Cardiothoracic CARDIAC CATHETERIZATION CARDIAC CATHETERIZATION Bilateral 07/01/2021 No intervention, right radial CARDIAC CATHETERIZATION N/A 07/01/2021 Procedure: Coronary Angiogram; Surgeon: Shmuel Villalpando MD; [facility]; Service: Cardiovascular CARDIAC CATHETERIZATION N/A 07/01/2021 Procedure: Right Heart Cath; Surgeon: Shmuel Villalpando MD; Location[facility]; Service: Cardiovascular CARDIAC CATHETERIZATION N/A 07/01/2021 Procedure: Left Ventriculogram; Surgeon: Shmuel Villalpando MD; [facility]; Service: Cardiovascular CARDIAC CATHETERIZATION N/A 07/01/2021 Procedure: Left Heart Cath; Surgeon: Shmuel Villalpando MD; Location: [facility]; Service: Cardiovascular cataracts removed Bilateral CORONARY STENT PLACEMENT EP - INTERVENTION N/A 08/24/2021 Procedure: Cardioversion/CTA; Surgeon: Abhishek Lauren MD; Location: [facility]; Service: Cardiovascular HERNIA REPAIR W/HYDROCELE Right Family History Problem Relation Age of Onset Heart disease Father Social History Socioeconomic History Marital status: Spouse name: Antonella Occupational History Employer: OTHER- Occupation: Retired from [employer] Tobacco Use Smoking status: Never Smokeless tobacco: Never Vaping Use Vaping status: Never Used Substance and Sexual Activity Alcohol use: Not Currently Comment: beer occasionally Drug use: Never Sexual activity: Not Currently Social Drivers of Health Transportation Needs: No Transportation Needs (01/25/2023) PRAPARE - Transportation Lack of Transportation (Medical): No Lack of Transportation (Non-Medical): No Allergy Information I have reviewed the patient's allergies. Patient has no known allergies. Home Medications: Outpatient Medications as of 01/21/2024 Medication Sig amLODIPine (NORVASC) 10 MG tablet Take 1 (one) tablet (10 mg total) by mouth daily . apixaban (ELIQUIS) 5 mg Tab Take 1 (one) tablet (5 mg total) by mouth 2 (two) times a day A fib . cyanocobalamin (B-12) 1000 MCG tablet Take 1 (one) tablet (1,000 mcg total) by mouth daily . esomeprazole (NEXIUM) 40 MG capsule Take 1 (one) capsule (40 mg total) by mouth every morning before breakfast . FLUoxetine (PROZAC) 20 MG capsule Take 1 (one) capsule (20 mg total) by mouth daily Start: 01/26/23. furosemide (Lasix) 20 MG tablet Take 1 (one) tablet (20 mg total) by mouth daily as needed Worsening leg swelling, weight gain of more than 5 pounds overnight, or shortness of breath . levothyroxine (SYNTHROID, LEVOTHROID) 175 MCG tablet Take 1 (one) tablet (175 mcg total) by mouth daily . lisinopriL (PRINIVIL,ZESTRIL) 10 MG tablet Take 1 (one) tablet (10 mg total) by mouth daily with lunch Start: 08/25/21. metFORMIN (GLUCOPHAGE-XR) 500 MG 24 hr tablet Take 1 (one) tablet (500 mg total) by mouth 2 (two) times a day . oxyBUTYnin (DITROPAN-XL) 10 MG 24 hr tablet rosuvastatin (CRESTOR) 20 MG tablet Take 1 (one) tablet (20 mg total) by mouth nightly . tamsulosin (FLOMAX) 0.4 mg capsule Take 2 (two) capsules (0.8 mg total) by mouth daily . therapeutic multivitamin (THERAGRAN) tablet Take 1 (one) tablet by mouth daily . traZODone (DESYREL) 50 MG tablet Take 0.5 (one-half) tablet (25 mg total) by mouth nightly as needed . Review of Systems All system(s) were reviewed. Pertinent positive and negative findings are noted in the HPI. All system negative unless otherwise noted in the HPI Physical Examination: Vital Signs: BP 127/80 (BP Location: Left arm, Patient Position: Sitting) Pulse 78 Ht 6' Wt 95.7 kg (211 lb) SpO2 96% BMI 28.62 kg/m Physical Exam: General: No acute distress, alert, and oriented x3. HEENT: Normocephalic Cardiovascular: Irregular rate and rhythm. Respiratory: Regular rate, non labored breathing. Abdominal: Soft, nontender, non distended. Extremities : No peripheral edema noted. Skin: Intact, no rashes noted. Psych: Normal mood and affect. Ira Ricci, [place], [employer] documented in this [id number] NoteElectrophysiology Clinic Note Patient Name: Kevin White MR #: [id number] : 1940 Physicians: Moi Gibson MD (Family); No ref. provider found (Referring) Assessment/Problem List: Atrial fibrillation History of amiodarone use, discontinued 12/2021. Initiated on dofetilide 12/2022, remains on 250 mcg every 12 hours Underwent DCCV 02/2022, 08/2021, most recently 09/2023 S\p of full left atrial maze with an encompass RF box lesion, RF left atrial appendage lesion, cryo right atrial caval lesion, and cryo R atrial appendage line/ligation left atrial appendage with [address] Beasley 07/23/21 CCTA obtained 09/2023 shows no residual HEATHER appendage tissue LA mildly enlarged 2. History of Mobitz I during sleep hours 3. Atrial valve repair 4. CAD s\p CABG 5. History of TIA Plan: Patient is unfortunately in atrial fibrillation today. He was in AF over the summer at his last nurse visit for class III antiarrhythmic monitoring and underwent DCCV September 2023. He reports being asymptomatic however does report he is fatigued. He is rate controlled. Given Tikosyn is clearly not working for him, I discussed pursuing PVI with him today. Patient and decline I did discuss it does not make sense to continue dofetilide since it is not working so will discontinue today. He will continue on rate control plan for now. Heart rate 78 today. Encouraged him if he becomes symptomatic or has issues, changes his mind about rhythm control to please notify our office. He continues to take Eliquis on a daily basis. He does have an atrial clip that was placed in 2021 and a CCTA obtained September of this year shows no residual HEATHER appendage tissue. He had a CVA in December 2022 and has never followed up with neurology afterwards. Will place a neurology referral and see if he needs to continue Eliquis long-term for CVA prevention. Will see him back in 6 months to assess his symptoms being in AF Chief complaint/reason for visit: AF History of Present Illness: Kevin White is a 83 y.o. y/o male who presents today for follow up regarding AF. Today, patient reports he is doing well. He is mostly quiet and is at bedside speaking for him. She reports he has been fatigued but denies dyspnea. EKG: Atrial fibrillation heart rate 73 bpm QRS 116 ms QTc 468 ms Cardiac studies: Reviewed History: Past Medical History: Diagnosis Date Arthritis Back pain CHF (congestive heart failure) (HCC) COPD (chronic obstructive pulmonary disease) (HCC) Coronary artery disease Diabetes mellitus (HCC) Diabetes mellitus, type 2 (HCC) Disease of thyroid gland GERD (gastroesophageal reflux disease) Hernia of abdominal wall Hyperlipidemia Hypertension Myocardial infarction (HCC) Sleep apnea, obstructive refuses to use c-pap Stroke (HCC) Past Surgical History: Procedure Laterality Date CABG AVR W/ MAZE Bilateral 08/12/2021 Procedure: CORONARY ARTERY BYPASS GRAFT TIMES THREE (krueger-lad, svg-d1, svg-drca)WITH ENDOVEIN HARVEST, Aortic valve replacement (27mm Paul Inspiris), full LA MAZE (Encompass RFA box, RFA HEATHER, cryo RA caval and RAA line), LEFT ATRIAL APPENDAGE LIGATION (40mm AtriCLIP), TRANSESOPHAGEAL ECHOCARDIOGRAM; Surgeon: Luis Beasley MD; Location: [facility]; Service: Cardiothoracic CARDIAC CATHETERIZATION CARDIAC CATHETERIZATION Bilateral 07/01/2021 No intervention, right radial CARDIAC CATHETERIZATION N/A 07/01/2021 Procedure: Coronary Angiogram; Surgeon: Shmuel Villalpando MD; Location: [facility]; Service: Cardiovascular CARDIAC CATHETERIZATION N/A 07/01/2021 Procedure: Right Heart Cath; Surgeon: Shmuel Villalpando MD; Location: [facility]; Service: Cardiovascular CARDIAC CATHETERIZATION N/A 07/01/2021 Procedure: Left Ventriculogram; Surgeon: Shmuel Villalpando MD; Location: [facility]; Service: Cardiovascular CARDIAC CATHETERIZATION N/A 07/01/2021 Procedure: Left Heart Cath; Surgeon: Shmuel Villalpando MD; Location: [facility]; Service: Cardiovascular cataracts removed Bilateral CORONARY STENT PLACEMENT EP - INTERVENTION N/A 08/24/2021 Procedure: Cardioversion/CTA; Surgeon: Abhishek Lauern MD; Location: [facility]; Service: Cardiovascular HERNIA REPAIR W/HYDROCELE Right Family History Problem Relation Age of Onset Heart disease Father Social History Socioeconomic History Marital status: Spouse name: Antonella Occupational History Employer: OTHER- Occupation: Retired from [employer] Tobacco Use Smoking status: Never Smokeless tobacco: Never Vaping Use Vaping status: Never Used Substance and Sexual Activity Alcohol use: Not Currently Comment: beer occasionally Drug use: Never Sexual activity: Not Currently Social Drivers of Health Transportation Needs: No Transportation Needs (01/25/2023) PRAPARE - Transportation Lack of Transp (more content not included)...[facility]11-20-2024 Instructions* Patient Instructions* Lauren Reynoso MA - 01/05/2024 2:33 PM EST It was our pleasure to see you in EP Clinic today. Please contact: TAI Smart at [phone] TAI Hurd at [phone] MICHELLE Grande RMA with questions, concerns, or if you need prescription refills before your next appointment. documented in this [id number] NoteGeneral Cardiology Returning Patient Clinic Visit [facility] Heart & Vascular 12/29/2023 Pennie Galvez, [employer]TER [employer]OGRAPHICAL [address] [facility], 3rd Floor Medical Office [facility] [address] [facility]ician [facility], physician's office 12/29/2023 Patient: Kevin White Date of : 1940 (83 y.o.) Referring Provider: No ref. provider found PCP: Moi Gibson MD Chief Complaint: Follow-up (Overdue/ DR. Villalpando ) Date of Service: 12/29/2023 Assessment and Plan: 1. CAD status post three-vessel CABG (KRUEGER to LAD, SVG to D1, SVG to distal RCA) with full HEATHER maze, left atrial appendage ligation/atrial clip, denies chest pain, continue aspirin, statin, LEANDRA 2. Severe aortic stenosis status post aortic valve replacement with 27 mm Inspiris valve, no stenosis on last echo RAMON 1.8 cm December 2022 3. Paroxysmal A-fib, currently normal sinus rhythm, continue Tikosyn, [id number] over 2, continue Eliquis 4. Hypertension, blood pressure currently controlled, continue norvasc, lisinopril, low-sodium diet 5. Hyperlipidemia, continue statin 6. 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 Diabetes, managed per PCP, recommend keep hemoglobin A1c below 7 Plan -Add Lasix 20 mg as needed for leg swelling -Update echo -low sodium diet and moderate exercise encouraged -Update lipid panel, patient planning on getting that with PCP It has been a pleasure caring for this patient. Please don't hesitate to reach out to my office directly with any questions or concerns. Follow-up: Return in about 6 months (around 06/27/2024) for Dr. Cox . Pennie Galvez CNP [facility] P:[phone] F:[phone] History of Present Illness: Kevin White is a 83 y.o. man with a past medical history of CAD status post CABG (KRUEGER to LAD, SVG to first diagonal, SVG to distal right conduit) July 2021, aortic valve replacement for severe with 27 mm Paul Inspiris pericardial valve, paroxysmal A-fib status post left atrial maze with an encompass RF box lesion, RF left atrial appendage lesion, cryo right atrial Dianelys lesion, and cryo R atrial appendage line/ligation left atrial pended with [address] 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 Patient accompanied by and uses a cane. Previous patient of Dr. Villalpando. Patient reports episode of dizziness that lastedabout 10 minutes and resolved on its own, he reports that he was at rest, denies syncope. He denies recurrence. He reports intermittent lower extremity swelling around the ankles especially over the last several months, denies other cardiac symptoms. He reports They have eaten out quite a bit recently. Counseled on low sodium diet. He denies chest pain, SOB, syncope. Previous cardiac testing, recent cardiology notes, PCP notes, and labs reviewed. Objective Review of Systems: All systems were reviewed and noted to be negative unless otherwise stated in HPI. Past Medical History: Diagnosis Date Arthritis Back pain CHF (congestive heart failure) (HCC) COPD (chronic obstructive pulmonary disease) (HCC) Coronary artery disease Diabetes mellitus (HCC) Diabetes mellitus, type 2 (HCC) Disease of thyroid gland GERD (gastroesophageal reflux disease) Hernia of abdominal wall Hyperlipidemia Hypertension Myocardial infarction (HCC) Sleep apnea, obstructive refuses to use c-pap Stroke (HCC) Past Surgical History: Procedure Laterality Date CABG AVR W/ MAZE Bilateral 08/12/2021 Procedure: CORONARY ARTERY BYPASS GRAFT TIMES THREE (krueger-lad, svg-d1, svg-drca)WITH ENDOVEIN HARVEST, Aortic valve replacement (27mm Paul Inspiris), full LA MAZE (Encompass RFA box, RFA HEATHER, cryo RA caval and RAA line), LEFT ATRIAL APPENDAGE LIGATION (40mm AtriCLIP), TRANSESOPHAGEAL ECHOCARDIOGRAM; Surgeon: Luis Beasley MD; Location: [facility]; Service: Cardiothoracic CARDIAC CATHETERIZATION CARDIAC CATHETERIZATION Bilateral 07/01/2021 No intervention, right radial CARDIAC CATHETERIZATION N/A 07/01/2021 Procedure: Coronary Angiogram; Surgeon: Shmuel Villalpando MD; Location: [facility]; Service: Cardiovascular CARDIAC CATHETERIZATION N/A 07/01/2021 Procedure: Right Heart Cath; Surgeon: Shmuel Villalpando MD; Location: [facility]; Service: Cardiovascular CARDIAC CATHETERIZATION N/A 07/01/2021 Procedure: Left Ventriculogram; Surgeon: Shmuel Villalpando MD; Location: [facility]; Service: Cardiovascular CARDIAC CATHETERIZATION N/A 07/01/2021 Procedure: Left Heart Cath; Surgeon: Shmuel Villalpando MD; Location: [facility]; Service: Cardiovascular cataracts removed Bilateral CORONARY STENT P (more content not included)...[facility] [id number] History of Present illness Narrative* Pennie Galvez CNP - 12/29/2023 12:48 PM EST Images from the original note were not included. General Cardiology Returning Patient Clinic Visit [facility], Heart [facility] Vascular 12/29/2023 Pennie Galvez CNP [address] [facility], 3rd Floor Medical Office Building [facility] [address] [facility]ician Group, physician's office 12/29/2023 Patient: Kevin White Date of : 1940 (83 y.o.) Referring Provider: No ref. provider found PCP: Moi Gibson MD Chief Complaint: Follow-up (Overdue/ DR. Villalpando ) Date of Service: 12/29/2023 Assessment and Plan: 1. CAD status post three-vessel CABG (KRUEGER to LAD, SVG to D1, SVG to distal RCA) with full HEATHER maze, left atrial appendage ligation/atrial clip, denies chest pain, continue aspirin, statin, LEANDRA 2. Severe aortic stenosis status post aortic valve replacement with 27 mm Inspiris valve, no stenosis on last echo RAMON 1.8 cm December 2022 3. Paroxysmal A-fib, currently normal sinus rhythm, continue Tikosyn, [id number] VASc over 2, continueEliquis 4. Hypertension, blood pressure currently controlled, continue norvasc, lisinopril, low-sodium diet 5. Hyperlipidemia, continue statin 6. 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 Diabetes, managed per PCP, recommend keep hemoglobin A1c below 7 Plan -Add Lasix 20 mg as needed for leg swelling -Update echo -low sodium diet and moderate exercise encouraged -Update lipid panel, patient planning on getting that with PCP It has been a pleasure caring for this patient. Please don't hesitate to reach out to my office directly with any questions or concerns. Follow-up: Return in about 6 months (around 06/27/2024) for Dr. Cox . Pennie Galvez CNP [facility] P:[phone] F:[phone] History of Present Illness: Kevin White is a 83 y.o. man with a past medical history of CAD status post CABG (KRUEGER to LAD, SVG to first diagonal, SVG to distal right conduit) July 2021, aortic valve replacement for severe with 27 mm Paul Inspiris pericardial valve, paroxysmal A-fib status post left atrial maze with an encompass RF box lesion, RF left atrial appendage lesion, cryo right atrial Dianelys lesion, and cryo R atrial appendage line/ligation left atrial pended with 40 mm atrial clip [address] Dr. 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 Patient accompanied by and uses a cane. Previous patient of Dr. Villalpando. Patient reports episode of dizziness that lasted about 10 minutes and resolved on its own, he reports that he was at rest, denies syncope. He denies recurrence. He reports intermittent lower extremity swelling around the ankles especially over the last several months, denies other cardiac symptoms. He reports They have eaten out quite a bit recently. Counseled on low sodium diet. He denies chest pain, SOB, syncope. Previous cardiac testing, recent cardiology notes, PCP notes, and labs reviewed. Objective Review of Systems: All systems were reviewed and noted to be negative unless otherwise stated in HPI. Past Medical History: Diagnosis Date Arthritis Back pain CHF (congestive heart failure) (HCC) COPD (chronic obstructive pulmonary disease) (HCC) Coronary artery disease Diabetes mellitus (HCC) Diabetes mellitus, type 2 (HCC) Disease of thyroid gland GERD (gastroesophageal reflux disease) Hernia of abdominal wall Hyperlipidemia Hypertension Myocardial infarction (HCC) Sleep apnea, obstructive refuses to use c-pap Stroke ([facility]) Past Surgical History: Procedure Laterality Date CABG AVR W/ MAZE Bilateral 08/12/2021 Procedure: CORONARY ARTERY BYPASS GRAFT TIMES THREE (krueger-lad, svg-d1, svg- drca)WITH ENDOVEIN HARVEST, Aortic valve replacement (27mm Paul Inspiris), full LA MAZE (Encompass RFA box, RFA HEATHER, cryoRA caval and RAA line), LEFT ATRIAL APPENDAGE LIGATION (40mm AtriCLIP), TRANSESOPHAGEAL ECHOCARDIOGRAM; Surgeon: Luis Beasley MD; Location: [facility] OR; Service: Cardiothoracic CARDIAC CATHETERIZATION CARDIAC CATHETERIZATION Bilateral 07/01/2021 No intervention, right radial CARDIAC CATHETERIZATION N/A 07/01/2021 Procedure: Coronary Angiogram; Surgeon: Shmuel Villalpando MD; Location: [facility]; Service: Cardiovascular CARDIAC CATHETERIZATION N/A 07/01/2021 Procedure: Right Heart Cath; Surgeon: Shmuel Villalpando MD; Location: [facility]; Service: Cardiovascular CARDIAC CATHETERIZATION N/A 07/01/2021 Procedure: Left Ventriculogram; Surgeon: Shmuel Villalpando MD; Location: [facility]; Service: Cardiovascular CARDIAC CATHETERIZATION N/A 07/01/2021 Procedure: Left Heart Cath; Surgeon: Shmuel Villalpando MD; Location: [facility]; Service: Cardiovascular cataracts removed Bilateral CORONARY STENT PLACEMENT EP - INTERVENTION N/A 08/24/2021 Procedure: Cardioversion/CTA; Surgeon: Abhishek Lauren MD; Location: [facility] EP LAB; Service: Cardiovascular HERNIA REPAIR W/HYDROCELE Right Family History Problem Relation Age of Onset Heart disease Father Social History Tobacco Use Smoking Status Never Smokeless Tobacco Never Allergies: Patient has no known allergies. All of the above information has been reviewed at today's visit and modified if necessary. Home Medications: Current Outpatient Medications: amLODIPine (NORVASC) 10 MG tablet, Take 1 (one) tablet (10 mg total) by mouth daily ., Disp: 30 tablet, Rfl: 0 apixaban (ELIQUIS) 5 mg Tab, Take 1 (one) tablet (5 mg total) by mouth 2 (two) times a day A fib .,Disp: 60 tablet, Rfl: 0 cyanocobalamin (B-12) 1000 MCG tablet, Take 1 (one) tablet (1,000 mcg total) by mouth daily ., Disp: , Rfl: dofetilide (TIKOSYN) 250 MCG capsule, Take 1 (one) capsule (250 mcg total) by mouth every 12 (twelve) hours ., Disp: 180 capsule, Rfl: 1 esomeprazole (NEXIUM) 40 MG capsule, Take 1 (one) capsule (40 mg total) by mouth every morning before breakfast ., Disp: , Rfl: FLUoxetine (PROZAC) 20 MG capsule, Take 1 (one) capsule (20 mg total) by mouth daily Start: 01/26/23., Disp: 30 capsule, Rfl: 0 levothyroxine (SYNTHROID, LEVOTHROID) 175 MCG tablet, Take 1 (one) tablet (175 mcg total) by mouth daily ., Disp: , Rfl: lisinopriL (PRINIVIL,ZESTRIL) 10 MG tablet, Take 1 (one) tablet (10 mg total) by mouth daily with lunch Start: 08/25/21., Disp: 30 tablet, Rfl: 3 metFORMIN (GLUCOPHAGE-XR) 500 MG 24 hr tablet, Take 1 (one) tablet (500 mg total) by mouth 2 (two) times a day ., Disp: , Rfl: oxyBUTYnin (DITROPAN-XL) 10 MG 24 hr tablet, , Disp: , Rfl: pantoprazole (PROTONIX) 40 MG tablet, Take 1 (one) tablet (40 mg total) by mouth Not taking ., Disp: , Rfl: rosuvastatin (CRESTOR) 20 MG tablet, Take 1 (one) tablet (20 mg total) by mouth nightly ., Disp: , Rfl: tamsulosin (FLOMAX) 0.4 mg capsule, Take 2 (two) capsules (0.8 mg total) by mouth daily ., Disp: , Rfl: therapeutic multivitamin (THERAGRAN) tablet, Take 1 (one) tablet by mouth daily ., Disp: , Rfl: traZODone (DESYREL) 50 MG tablet, Take 0.5 (one-half) tablet (25 mg total) by mouth nightly as needed ., Disp: , Rfl: furosemide (Lasix) 20 MG tablet, Take 1 (one) tablet (20 mg total) by mouth daily as needed Worsening leg swelling, weight gain of more than 5 pounds overnight, or shortness of breath ., Disp: 90 tablet, Rfl: 0 Physical Exam: BP 135/72 (BP Location: Left arm) Pulse 72 Ht 6' Wt 95.7 kg (211 lb) SpO2 98% BMI 28.62 kg/m Constitutional: Alert, no acute distress Eyes: Conjunctivae are normal, no discharge noted Respiratory: Lungs clear to auscultation bilaterally Cardiovascular: Controlled rate and regular rhythm, + murmurs appreciated on today's exam, normal S1 and S2, no rubs or gallops Musculoskeletal: Moves all extremities. No cyanosis. Mild ankle edema bilaterally Abdomen: Soft, bowel sounds positive Neurological: Alert and oriented x 3 Skin: Skin is warm and dry Psychiatric: Normal mood and affect, appropriate conversation Cardiovascular Studies: EKG September 2023 A-fib with slow ventricular response, nonspecific ST probably, heart rate 55 CCTA September 2023 Pulmonary Vein and Left Atrial Appendage Anatomy Pulmonary Veins: Normal pulmonary venous drainage. There are four pulmonary veins identified. Two on the right and two on the left. Left Atrial Appendage: S/P clipping. No residual left atrial appendage tissue noted. Left atrium: Left atrial size is Enlarged. Left Ventricle: The ventricular cavity size is within normal limits. There is no abnormal filling defects. Pericardium: Normal thickness with no significant effusion or calcification present. Cardiac valves: Well-seated bioprosthetic aortic valve. Mitral annular calcification. Aorta: Normal caliber thoracic aorta with the following measurements at the PA bifurcation: AAo 35 x 33 mm; Haily 32 x 31 mm. Mild calcification. PLEASE SEE SEPARATE RADIOLOGY REPORT FOR THE NONCARDIAC FINDINGS IMPRESSION S/P left atrial appendage clipping. No residual left atrial appendage tissue noted. Echo December 2022 Summary 1. This study was technically limited, Definity IV contrast was used to enhance endocardial definition. 2. Left ventricular systolic function is normal with an ejection fraction by Biplane Method of Discs of 59 %. 3. And aortic bioprosthesis (27 mm Inspiris) appears well-seated, but is not well visualized. 4. There is no bioprosthetic aortic valve stenosis with a peak velocity of 2.1 m/s, mean gradient of 10 mmHg, and aortic valve area of 1.8 cm2. 5. Left atrial chamber is mildly enlarged with a left atrial volume index of 41 ml/m2 by BP MOD. 6. Compared to the prior study from 11/13/2021, there is no significant interval change. [facility] November 2021 [place] REPORT INDICATIONS: PAROXYSMAL ATRIAL FIBRILLATION Summary: Baseline atrial fibrillation, average heart rate 56 bpm No patient triggered events Cardiac cath June 2021 Impression: Normal left ventricular systolic function with an estimated LV ejection fraction of 65%. 2. Normal left ventricular end-diastolic pressure 3. Severe aortic valve stenosis with a calculated valve area 0.83 cm 4. Normal resting right heart pressures with no shunting by oximetry 5. Severe triple-vessel coronary disease Recommendations: Target LDL<70 mg/dL with a high-intensity statin Optimal lifestyle habits including smoking cessation, adopting a Mediterranean diet, and regular moderate-intensity exercise (>3 hours weekly) Optimal BP <120/80 mm Hg Patient will be reviewed at the structural heart team meeting for shared decision making regarding transcatheter versus surgical aortic valve replacement and coronary revascularization. Right Heart Catheterization The right heart filling pressure was normal and Baseline: RA mean 2. RV 28/2. PA 26/6 with a mean of 9. Wedge mean 4. Oxygen saturations(%): Ao 96. PA 68. RV 67. RA 68. Predicted O2 consumption to 68 mL/min SVR 1958 PVR 169. Normal cardiac output/index by Summer. Estimated Summer cardiac output 4.25 L/min Cardiac index 1.8 L/min/m The pulmonary artery pressure index was normal. Coronary Findings Diagnostic Dominance: Right Left Main Mid LM lesion is 50% stenosed. IGOR flow is 3. The lesion is not complex (non high-C). Left Anterior Descending Ost LAD lesion is 80% stenosed. IGOR flow is 3. The lesion is type C, eccentric and serial. The lesion is moderately calcified. Dist LAD lesion is 60% stenosed. IGOR flow is 3. The lesion is not complex (non high-C). Left Circumflex Ost Cx lesion is 80% stenosed. IGOR flow is 3. The lesion is type C. The lesion is moderately calcified. Mid Cx lesion is 40% stenosed. IGOR flow is 3. The lesion is not complex (non high-C). The lesion was previously treated using a drug-eluting stent. Previous treatment took place >2 years ago. Thelesion has no restenosis. First Obtuse Marginal Branch 1st Mrg lesion is 70% stenosed. IGOR flow is 3. The lesion is not complex (non high-C). Small caliber vessel Right Coronary Artery The vessel is severely calcified. Ost RCA lesion is 70% stenosed. IGOR flow is 3. The lesion is type C and eccentric. The lesion is severely calcified. Angiographically hazy Prox RCA lesion is 70% stenosed. IGOR flow is 3. The lesion is type C. The lesion is moderately calcified. Prox RCA to Mid RCA lesion is 40% stenosed. IGOR flow is 3. The lesion is not complex (non high-C).The lesion was previously treated using a drug-eluting stent. Previous treatment took place >2 years ago. The lesion has no restenosis. Intervention No interventions have been documented. Wall Motion Left Heart Findings Left Ventricle Ejection Fraction: 65%.The left ventricular size is normal. The left ventricular systolic function is normal. LV systolic pressure is normal. Baseline aortic pressure 150/70 LV end diastolic pressure is elevated/hypertensive. Based on LV pressure 190/10 There are no wall motion abnormalities in the left ventricle. Aortic Valve There is severe aortic valve stenosis. Aortic valve area 0.83 cm Aortic valve area index 0.35 cm /m2 Peak to peak gradient 40 Mean gradient 32 The aortic valve is calcified. NM myocardial perfusion multi SPECT September 2020 Summary 1. Abnormal stress nuclear perfusion study consistent with small inferolateral infarct. Ischemia is not demonstrated. 2. Ventricular couplets and triplets with stress. 3. Nondiagnostic ECG portion of stress nuclear perfusion study. Resting ST segment changes. Adequate workload achieved. No chest discomfort. Normal hemodynamic response to exercise. 4. Average exercise tolerance for age. 5. Overall left ventricular systolic function was normal without regional wall motion abnormalities. Gated SPECT imaging reveals normal myocardial wall thickening. Post stress left ventricular ejection fraction is normal, 66 %. Resting left ventricular ejection fraction is normal, 66 %. Left ventricular cavity size is normal. Labs: Lab Results Component Value Date GLUCOSE 174 (H) 10/07/2023 CALCIUM 9.2 10/07/2023 NA 139 10/07/2023 K 4.1 10/07/2023 CL 102 10/07/2023 BUN 19 10/07/2023 CREATININE 1.21 10/07/2023 Lab Results Component Value Date ALT 27 01/16/2023 AST 18 01/16/2023 ALKPHOS 68 01/16/2023 BILITOT 0.7 01/16/2023 Lab Results Component Value Date WBC 7.65 10/15/2023 HGB 13.7 10/15/2023 HCT 41.3 10/15/2023 MCV 96.5 10/15/2023 PLT 111 (L) 10/15/2023 RBC 4.28 (L) 10/15/2023 Lab Results Component Value Date CHOL 125 01/06/2023 LDLCALC 66 01/06/2023 TRIG 110 01/06/2023 HDL 37 (L) 01/06/2023 Lab Results Component Value Date HGBA1C 6.6 (H) 01/06/2023 Lab Results Component Value Date ALT 27 01/16/2023 AST 18 01/16/2023 ALKPHOS 68 01/16/2023 BILITOT 0.7 01/16/2023 The ASCVD Risk score (Sonia ROSALES, et al., 2019) failed to calculate for the following reasons: The 2019 ASCVD risk score is only valid for ages 40 to 79 Risk score cannot be calculated because patient has a medical history suggesting prior/existing ASCVD Please excuse any typographical errors as dictation software was used documented in this [id number] History of Present illness Narrative* Daphne Fischer RN - 10/07/2023 1:54 PM EDT Patient here for a nurse visit. EKG shows atrial fibrillation, Qtc <500. Unfortunately, patient reports being more fatigued and short of breath over the past few days. Reports he missed 2 doses ofEliquis on Wednesday 10/04. Let him know that I would need to discuss with Dr. Muir and call him withher recommendations. Sent to the lab to get lab work drawn. Patient verbalizes understanding and has no further questions at this time. documented in this [id number] Instructions* Patient Instructions* Lauren Reynoso MA - 09/09/2023 10:01 AM EDT It was our pleasure to see you in EP Clinic today. Please contact: TAI Kendrick at [phone] TAI Smart at [phone] TAI Hurd [employer]IED [employer] with questions, concerns, or if you need prescription refills before your next appointment. documented in this [id number] Evaluation + Plan note* Assessment & Plan Note - Christina Branham CNP - 07/22/2023 1:17 PM EDT Associated Problem(s): Ischemic stroke (HCC) Stable since previous follow-up with no new issues or concerns from a stroke standpoint. 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 TPA given in [place] and transferred to [place] with updated imaging at that time showing recanalization of M2 occlusion. Not a candidate for thrombectomy and exam continued to improve. Discharged from [facility] on 01/25/2023. Previously on Coumadin for atrial fibrillation but was off for 1.5 years following cardioversion and LA clipping. CONTINUE Eliquis 5 mg BID. Also continue aspirin 81 mg daily and Lipitor 40 mg daily for CAD and stroke prevention. Blood pressure is mildly elevated today. BP goal less than 130/80. Encouraged to continue to monitor closely at home. Hemoglobin A1c 01/06/2023: 6.6% Lipid panel 01/06/2023: Cholesterol 125, Triglycerides 110, HDL 37, and LDL 66. Continue with therapy and therapy exercises at home as well. Encouraged to keep mentally and physically active. Monitor for changes in memory or mood. Stroke signs and symptoms discussed along with lifestyle changes with stroke education placed in AVS. All questions were answered prior to completion of OV today. Follow-up as needed. [id number] Miscellaneous Notes* Assessment & Plan Note - Christina Branham CNP - 07/22/2023 1:17 PM EDTAssociated Problem(s): Ischemic stroke (HCC) Stable since previous follow-up with no new issues or concerns from a stroke standpoint. 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 TPA given in [place] and transferred to [place] with updated imaging at that time showing recanalization of M2 occlusion. Not a candidate for thrombectomy and exam continued to improve. Discharged from [facility] on 01/25/2023. Previously on Coumadin for atrial fibrillation but was off for 1.5 years following cardioversion and LA clipping. CONTINUE Eliquis 5 mg BID. Also continue aspirin 81 mg daily and Lipitor 40 mg daily for CAD and stroke prevention. Blood pressure is mildly elevated today. BP goal less than 130/80. Encouraged to continue to monitor closely at home. Hemoglobin A1c 01/06/2023: 6.6% Lipid panel 01/06/2023: Cholesterol 125, Triglycerides 110, HDL 37, and LDL 66. Continue with therapy and therapy exercises at home as well. Encouraged to keep mentally and physically active. Monitor for changes in memory or mood. Stroke signs and symptoms discussed along with lifestyle changes with stroke education placed in AVS. All questions were answered prior to completion of OV today. Follow-up as needed. documented in this [id number] Instructions* Patient Instructions* Christina Branham CNP - 07/22/2023 9:34 AM EDT Continue Eliquis and aspirin 81 mg daily Continue Lipitor 40 mg daily. Continue to monitor blood pressure at home. Goal blood pressure less than 130/80. Keep mentally and physically active. Continue to do therapy exercises at home. Be cautious with any falls or injuries where you hit your head due to being on a blood thinner. Call with any further questions, concerns, or new changes. Follow-up as needed. Stroke Signs and Symptoms - FAST: Facial drooping, arm weakness, speech difficulty, and time to call 911. - Weakness or numbness in the face, arms, or legs; especially when it is on one side of the body. - Confusion, trouble speaking or understanding. - Changes in vision such as blurry vision or partial or complete loss of vision in one or both eyes. - Trouble walking, dizziness, loss of balance, or coordination. - Severe headache with no reason or explanation. Stroke Lifestyle Changes - Stop smoking, if you smoke. - Get regular exercise. At least 30 minutes a day on most days of the week is recommended. - Lose weight, if you are overweight. - Mediterranean diet is recommended. This diet is rich in fruits, vegetables, and low-fat dairy products. Low amounts of meat, sweets, and refined grains (such as white bread or white rice) should beconsumed. - Monitor sodium intake. Do no add salt to foods. Read food labels, canned foods and processed foods are high in sodium and should be avoided. - Limit alcohol consumption documented in this [id number] History of Present illness Narrative* Christina Branham CNP - 07/22/2023 9:29 AM EDT Patient ID: Kevin White is a 82 y.o. male. Assessment/Plan: Problem List Ischemic stroke (HCC) - Primary Stable since previous follow-up with no new issues or concerns from a stroke standpoint. 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 TPA given in [place] and transferred to [place] with updated imaging at that time showing recanalization of M2 occlusion. Not a candidate for thrombectomy and exam continued to improve. Discharged from [facility] on 01/25/2023. Previously on Coumadin for atrial fibrillation but was off for 1.5 years following cardioversion and LA clipping. CONTINUE Eliquis 5 mg BID. Also continue aspirin 81 mg daily and Lipitor 40 mg daily for CAD and stroke prevention. Blood pressure is mildly elevated today. BP goal less than 130/80. Encouraged to continue to monitor closely at home. Hemoglobin A1c 01/06/2023: 6.6% Lipid panel 01/06/2023: Cholesterol 125, Triglycerides 110, HDL 37, and LDL 66. Continue with therapy and therapy exercises at home as well. Encouraged to keep mentally and physically active. Monitor for changes in memory or mood. Stroke signs and symptoms discussed along with lifestyle changes with stroke education placed in AVS. All questions were answered prior to completion of OV today. Follow-up as needed. Follow-up as needed. Time statement: A total of 30 minutes were spent on this encounter, which includes the time reviewing the patient's diagnostic tests, seeing the patient, speaking with nursing staff, and documenting in the record. Christina Branham, [place], [employer] [facility] Neurology Subjective HPI Update 07/22/2023: Patient returns for stroke follow-up accompanied by . He reports things are going well. He states he had a slight dizzy spell last night. states he gets these on occasion and feels this occurs when he has had too much sugar. She states last night he had a little too much ice cream. They do not routinely check blood sugars at home. He is going to be getting a hearing aid soon. No concerns with memory or confusion. He reports one fall a few weeks ago when he was walking out to feed the birds. He states the uneven ground and getting his feet tangled up lead him to fall. He does not use assistive device. He is compliant with Eliquis, aspirin, and Lipitor 40 mg daily for stroke prevention. Blood pressure was initially elevated today but recheck was within normal limits. Denies any concerns regarding anxiety or depression. No further issues or concerns reported at this time. Office visit 02/01/2023: Kevin White is an 82 year old male who is here for follow-up on his hospitalization for stroke. He fell going to the restroom on 01/06/2023 and was found on his knees by his with noted confusion and left sided weakness. He has a history of HTN, CAD, DM, and atrial fibrillation but had not been on anticoagulation s/p cardioversions and LA clipping. He was on Coumadin prior to those procedures. He was given tPA and transferred to [facility] from [facility] for possible thrombectomy. Imaging prior to transfer showed distal right [facility] occlusion[facility] and his exam was improving upon arrival to [place]. He was not considered a candidate for YOVANY due to lack of vascular target and previously noted occlusion recanalized on the imaging. Atrial fibrillation was considered for possible etiology of stroke. He was started on anticoagulation with Eliquis 5 mg BID on 01/11/2023. He also continues Lipitor 40 mg daily and aspirin 81 mg daily for CAD and stroke. He is continuing to do outpatient therapy and states he is doing well since discharge. He was discharged from [facility] on 01/25/2023. No further issues with memory or confusion. He still has some weakness in his left arm and left leg but this is improving. He has a slight left facial droop and reports he will drool out of the left side of his mouth on occasion. Occasionally he will stumble over his words and speech will slur but this is all still improving. He denies any fall or injuries since discharge. He denies any issues or concerns with anxiety or depression. No further issues or concerns reported at this time. Review of patients current medication list along with allergies, past medical history, surgical history, family history, and social history was reviewed and updated as appropriate. Review of Systems Constitutional: Negative for activity change, appetite change, chills, fatigue, fever and unexpected weight change. HENT: Negative for trouble swallowing. Eyes: Negative for visual disturbance. Respiratory: Negative for cough, shortness of breath and wheezing. Cardiovascular: Negative for chest pain and palpitations. Gastrointestinal: Negative for abdominal pain, nausea and vomiting. Endocrine: Negative for polydipsia, polyphagia and polyuria. Genitourinary: Negative for difficulty urinating. Musculoskeletal: Negative for arthralgias, back pain and neck pain. Skin: Negative for rash. Neurological: Positive for facial asymmetry (left facial droop), speech difficulty and weakness (left arm and left leg). Negative for dizziness, tremors, seizures, syncope, light-headedness and headaches. Psychiatric/Behavioral: Negative for confusion, decreased concentration, dysphoric mood and sleep disturbance. The patient is not nervous/anxious. Objective BP (P) 117/76 (BP Location: Left arm, Patient Position: Sitting, BP Cuff Size: X-large Adult) Pulse (P) 60 Resp 16 Ht 6' Wt 101.8 kg (224 lb 8 oz) SpO2 94% BMI 30.45 kg/m Neurologic Exam Mental Status Oriented to person, place, and time. Attention: normal. Concentration: normal. Speech: slurred (Mild slurring of speech but overall speech is clear and fluent.) Level of consciousness: alert Knowledge: good. Cranial Nerves Cranial nerves II through XII intact. CN III, IV, Pupils are equal, round, and reactive to light. Extraocular motions are normal. Right pupil: Size: 2 mm. Consensual response: intact. Accommodation: intact. Left pupil: Size: 2 mm. Consensual response: intact. Accommodation: intact. CN III: no CN III palsy CN : no CN palsy Nystagmus: none Diplopia: none Ophthalmoparesis: none Upgaze: normal Downgaze: normal Conjugate gaze: present CN VII Left facial weakness: peripheral (left facial droop) Motor Exam Muscle bulk: normal Overall muscle tone: normal Right arm pronator drift: absent Left arm pronator drift: absent Strength Strength 5/5 except as noted. Slight weakness noted to left arm and left leg in comparison to rightside. Sensory Exam Light touch normal. Gait, Coordination, and Reflexes Gait Gait: (Gait is relatively steady. Ambulates without assistive device.) Coordination Finger to nose coordination: normal Tandem walking coordination: normal Tremor Resting tremor: absent Intention tremor: absent Action tremor: absent Reflexes Reflexes 2+ except as noted. Physical Exam Vitals and nursing note reviewed. Constitutional: Appearance: He is well-developed. Comments: Patient is very pleasant and cooperative for exam. He is well groomed and dressed appropriate for season. HENT: Head: Normocephalic and atraumatic. Eyes: Extraocular Movements: EOM normal. Pupils: Pupils are equal, round, and reactive to light. Cardiovascular: Rate and Rhythm: Normal rate and regular rhythm. Heart sounds: No murmur heard. Pulmonary: Effort: Pulmonary effort is normal. No respiratory distress. Breath sounds: Normal breath sounds. No wheezing. Abdominal: General: Bowel sounds are normal. There is no distension. Palpations: Abdomen is soft. Musculoskeletal: General: Normal range of motion. Cervical back: Normal range of motion and neck supple. Skin: General: Skin is warm and dry. Findings: No rash. Neurological: Mental Status: He is alert and oriented to person, place, and time. Cranial Nerves: Cranial nerves 2-12 are intact. No cranial nerve deficit. Coordination: Bmrskr-Furj-Zmbvzf Test normal. Gait: Tandem walk normal. Deep Tendon Reflexes: Reflexes are normal and symmetric. Psychiatric: Speech: Speech is slurred. Behavior: Behavior normal. Thought Content: Thought content normal. Judgment: Judgment normal. documented in this [id number] History of Present illness Narrative* Ashley Townsend CNP - 07/06/2023 3:30 PM EDT Electrophysiology Clinic Follow up Heart & Vascular [facility] 07/06/2023 Ashley Townsend, DRAFTER TOPOGRAPHICAL [address] [facility] Medical Office [facility] [address] Patient: Kevin White Date of : 1940 (82 y.o.) PCP: Moi Gibson MD Chief Complaint: Tikosyn follow up History of Present Illness: Kevin White is a 82 y.o. male with a past medical history of atrial fibrillation on Tikosyn, AVR, CAD status post CABG, TIA who is being seen today for follow- up in regards to his A-fib management. Today in the office patient presents alone reports doing fairly well from cardiovascular standpoint. Denies lightheadedness/dizziness, syncope, palpitations or tachycardia. Spouse reports patient at times seems to have chest pain for he grabs his left chest and has become increasingly SOB lately. No edema on exam. Assessment & Plan Atrial fibrillation Previous antiarrhythmic drugs: Amiodarone, discontinued December 2021. Started on Tikosyn February 2022, remains on 250 mcg every 12 hours Previous cardioversions: 03/10/22, 08/24/21 Previous ablations: History of full left atrial maze with an encompass RF box lesion, RF left atrial appendage lesion, cryo right atrial caval lesion, and cryo R atrial appendage line/ligation left atrial appendage with [address] Beasley 07/23/21 [id number] score: 7 (see above, has Atriclip), CCTA 08/23/21 shows appropriate appendage occlusion LA Size: Severely enlarged per echo October 2021 EKG today reviewed and shows normal sinus rhythm with PVC heart rate 72 bpm, QTc 441 MS Other: +Mobitz I during sleep hours +s\p AVR +CAD s\p CABG +TIA +EF 59% per latest ECHO Plan 07/06/23: -QTC today remains less than 500 MS -Will update BMP + Mag level today. -Continue Tikosyn 250 mcg p.o. twice daily -Continue Eliquis 5 mg p.o. twice daily -Given patient concerns of increased SOB and occasional CP encouraged follow up with general cardiology for possible need to update testing. Last SPECT 2020. ECHO Dec 2022 stable. EKG without acute ischemic changes -Follow up with EP RN in 3 months for EKG & lab work. Follow up with EP provider in 6 months. Review of Systems: All systems reviewed and are negative except for the pertinent positives stated above Physical Examination: BP (!) 162/79 (BP Location: Left arm, Patient Position: Sitting) Pulse 76 Ht 6' Wt 99.3 kg (219 lb) SpO2 95% BMI 29.70 kg/m Constitutional: Alert in no distress Head: Normocephalic and atraumatic. Eyes: Conjunctivae and EOM are normal. No scleral icterus. Neck: Normal range of motion. Cardiovascular: Normal rate and regular rhythm. No peripheral edema Pulmonary/Chest: Effort normal and breath sounds diminished no wheezes or rhonchi Abdominal: Soft Musculoskeletal: Normal range of motion. Neurological: AOx3, moving all ext. Skin: Skin is warm and dry. No rash noted. Psychiatric: Normal mood and affect. Past Medical History: Diagnosis Date Arthritis Back pain CHF (congestive heart failure) (HCC) COPD (chronic obstructive pulmonary disease) (HCC) Coronary artery disease Diabetes mellitus (HCC) Diabetes mellitus, type 2 (HCC) Disease of thyroid gland GERD (gastroesophageal reflux disease) Hernia of abdominal wall Hyperlipidemia Hypertension Myocardial infarction (HCC) Sleep apnea, obstructive refuses to use c-pap Stroke (HCC) Past Surgical History: Procedure Laterality Date CABG AVR W/ MAZE Bilateral 08/12/2021 Procedure: CORONARY ARTERY BYPASS GRAFT TIMES THREE (krueger-lad, svg-d1, svg- drca)WITH ENDOVEIN HARVEST, Aortic valve replacement (27mm Paul Inspiris), full LA MAZE ([employer]compass RFA box, RFA HEATHER, cryoRA caval and RAA line), LEFT ATRIAL APPENDAGE LIGATION (40mm AtriCLIP), TRANSESOPHAGEAL ECHOCARDIOGRAM; Surgeon: Luis Beasley MD; Location: [facility]; Service: Cardiothoracic CARDIAC CATHETERIZATION CARDIAC CATHETERIZATION Bilateral 07/01/2021 No intervention, right radial CARDIAC CATHETERIZATION N/A 07/01/2021 Procedure: Coronary Angiogram; Surgeon: Shmuel Villalpando MD; Location: [facility]; Service: Cardiovascular CARDIAC CATHETERIZATION N/A 07/01/2021 Procedure: Right Heart Cath; Surgeon: Shmuel Villalpando MD; Location: [facility]; Service: Cardiovascular CARDIAC CATHETERIZATION N/A 07/01/2021 Procedure: Left Ventriculogram; Surgeon: Shmuel Villalpando MD; Location: [facility]; Service: Cardiovascular CARDIAC CATHETERIZATION N/A 07/01/2021 Procedure: Left Heart Cath; Surgeon: Shmuel Villalpando MD; Location: [facility]; Service: Cardiovascular cataracts removed Bilateral CORONARY STENT PLACEMENT EP - INTERVENTION N/A 08/24/2021 Procedure: Cardioversion/CTA; Surgeon: Abhishek Lauren MD; Location: [facility] EP LAB; Service: Cardiovascular HERNIA REPAIR W/HYDROCELE Right Family History Problem Relation Age of Onset Heart disease Father Social History Tobacco Use Smoking Status Never Smokeless Tobacco Never Allergies: Patient has no known allergies. HOME Medications: Current Outpatient Medications on File Prior to Visit Medication Sig amLODIPine (NORVASC) 10 MG tablet Take 1 (one) tablet (10 mg total) by mouth daily . apixaban (ELIQUIS) 5 mg Tab Take 1 (one) tablet (5 mg total) by mouth 2 (two) times a day A fib . cyanocobalamin (B-12) 1000 MCG tablet Take 1 (one) tablet (1,000 mcg total) by mouth daily . esomeprazole (NEXIUM) 40 MG capsule Take 1 (one) capsule (40 mg total) by mouth every morning before breakfast . FLUoxetine (PROZAC) 20 MG capsule Take 1 (one) capsule (20 mg total) by mouth daily Start: 01/26/23. levothyroxine (SYNTHROID, LEVOTHROID) 175 MCG tablet Take 1 (one) tablet (175 mcg total) by mouth daily . lisinopriL (PRINIVIL,ZESTRIL) 10 MG tablet Take 1 (one) tablet (10 mg total) by mouth daily with lunch Start: 08/25/21. metFORMIN (GLUCOPHAGE-XR) 500 MG 24 hr tablet Take 1 (one) tablet (500 mg total) by mouth 2 (two) times a day . rosuvastatin (CRESTOR) 20 MG tablet Take 1 (one) tablet (20 mg total) by mouth nightly . tamsulosin (FLOMAX) 0.4 mg capsule Take 2 (two) capsules (0.8 mg total) by mouth daily . therapeutic multivitamin (THERAGRAN) tablet Take 1 (one) tablet by mouth daily . traZODone (DESYREL) 50 MG tablet Take 0.5 (one-half) tablet (25 mg total) by mouth nightly as needed . [DISCONTINUED] dofetilide (TIKOSYN) 250 MCG capsule Take 1 (one) capsule (250 mcg total) by mouth every 12 (twelve) hours . [DISCONTINUED] magnesium oxide (MAG-OX) 400 mg (241.3 mg magnesium) tablet Take 1 (one) tablet (400mg total) by mouth daily . No current facility-administered medications on file prior to visit. documented in this [id number] Instructions* Patient Instructions* Christiane Puckett MA - 06/25/2023 2:13 PM EDT It was our pleasure to see you in EP Clinic today. Please contact: TAI Kendrick at [phone] TAI Lauren at [phone] TAI Smart at [phone] with questions, concerns, or if you need prescription refills before your next appointment. documented in this [id number] Instructions* Patient Instructions* Silvana Caballero II, OD - 06/17/2023 12:12 PM EDT Assessment and Plan E11.9 Type 2 diabetes mellitus without retinopathy (HCC) (primary encounter diagnosis) Comment: Examination shows no ocular diabetic complications today. Discussed need for optimal diabetes control to minimize chance of ocular complications. Advise patient to immediately report worsening in status or additional symptoms. Continue yearly dilated eye examinations. Z96.1 Pseudophakia, both eyes Comment: Posterior chamber intraocular lenses are well positioned and clear. 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 Monitor. H43.393 Vitreous floaters of both eyes Comment: Vitreal floaters stable both eyes. Retinas flat and intact with no apparent retinal tear or traction. Monitor yearly. 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 Comment: Ocusoft lid wipes daily recommended. Monitor C/D left eye for enlargement at next yearly exam. I have confirmed and edited as necessary the relevant HPI, ophthalmic history, ROS, and the neuro exam findings as obtained by others. I have seen and examined Kevin White. I have discussed the case and the management of this patient's care with the Resident/Fellow, if applicable. I also have reviewed and agree with the assessment and plan as stated above and agree withall of its relevant components. [facility] History of Present illness Narrative* Silvana Caballero II, OD - 06/17/2023 12:10 PM EDT Assessment and Plan E11.9 Type 2 diabetes mellitus without retinopathy (HCC) (primary encounter diagnosis) Comment: Examination shows no ocular diabetic complications today. Discussed need for optimal diabetes control to minimize chance of ocular complications. Advise patient to immediately report worsening in status or additional symptoms. Continue yearly dilated eye examinations. Z96.1 Pseudophakia, both eyes Comment: Posterior chamber intraocular lenses are well positioned and clear. 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 Monitor. H43.393 Vitreous floaters of both eyes Comment: Vitreal floaters stable both eyes. Retinas flat and intact with no apparent retinal tear or traction. Monitor yearly. 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 Comment: Ocusoft lid wipes daily recommended. Monitor C/D left eye for enlargement at next yearly exam. I have confirmed and edited as necessary the relevant HPI, ophthalmic history, ROS, and the neuro exam findings as obtained by others. I have seen and examined Kevin White. I have discussed the case and the management of this patient's care with the Resident/Fellow, if applicable. I also have reviewed and agree with the assessment and plan as stated above and agree withall of its relevant components. documented in this [facility] History of Present illness Narrative* Mireille Narvaez RN - 04/13/2023 2:23 PM EST Patient here for a nurse visit. EKG shows Sinus Qtc<500. Patient states doing well on tikosyn. Sent to the lab to get lab work drawn. Patient verbalizes understanding and has no further questions at this time. documented in this [id number] Instructions* Patient Instructions* Christiane Puckett MA - 04/01/2023 9:11 AM EST It was our pleasure to see you in EP Clinic today. Please contact: Mireille RN at [phone] Leonidas RN at [phone] TAI Smart with questions, concerns, or if you need prescription refills before your next appointment. documented in this [id number] Evaluation + Plan note* Assessment & Plan Note - Christina Branham CNP - 02/18/2023 9:34 AM EST Associated Problem(s): Ischemic stroke (HCC) RIGHT MCA stroke with distal right MCA occlusion. TPA given in [place] and transferred to [place] with updated imaging at that time showing recanalization of M2 occlusion. Not a candidate for thrombectomy and exam continued to improve. Discharged from [facility] on 01/25/2023. Previously on Coumadin for atrial fibrillation but was off for 1.5 years following cardioversion and LA clipping. CONTINUE Eliquis 5 mg BID. Also continue aspirin 81 mg daily and Lipitor 40 mg daily for CAD and stroke prevention. Blood pressure is mildly elevated today. BP goal less than 130/80. Encouraged to continue to monitor closely at home. Hemoglobin A1c 01/06/2023: 6.6% Lipid panel 01/06/2023: Cholesterol 125, Triglycerides 110, HDL 37, and LDL 66. Continue with therapy and therapy exercises at home as well. Encouraged to keep mentally and physically active. Monitor for changes in memory or mood. Stroke signs and symptoms discussed along with lifestyle changes with stroke education placed in AVS. All questions were answered prior to completion of OV today. Follow-up in 6 months, or sooner as needed. [id number] Miscellaneous Notes* Assessment & Plan Note - Christina Branham CNP - 02/18/2023 9:34 AM ESTAssociated Problem(s): Ischemic stroke (HCC) RIGHT MCA stroke with distal right MCA occlusion. TPA given in [place] and transferred to [place] with updated imaging at that time showing recanalization of M2 occlusion. Not a candidate for thrombectomy and exam continued to improve. Discharged from [facility] on 01/25/2023. Previously on Coumadin for atrial fibrillation but was off for 1.5 years following cardioversion and LA clipping. CONTINUE Eliquis 5 mg BID. Also continue aspirin 81 mg daily and Lipitor 40 mg daily for CAD and stroke prevention. Blood pressure is mildly elevated today. BP goal less than 130/80. Encouraged to continue to monitor closely at home. Hemoglobin A1c 01/06/2023: 6.6% Lipid panel 01/06/2023: Cholesterol 125, Triglycerides 110, HDL 37, and LDL 66. Continue with therapy and therapy exercises at home as well. Encouraged to keep mentally and physically active. Monitor for changes in memory or mood. Stroke signs and symptoms discussed along with lifestyle changes with stroke education placed in AVS. All questions were answered prior to completion of OV today. Follow-up in 6 months, or sooner as needed. * Assessment & Plan Note - Christina Branham CNP - 02/18/2023 9:26 AM EST Associated Problem(s): Atrial fibrillation (HCC) On Coumadin in the past. Continue Eliquis 5 mg BID. Fall precautions and bleeding precautions discussed. No fall or injuries reported. documented in this [id number] Evaluation + Plan note* Assessment & Plan Note - Christina Branham CNP - 02/18/2023 9:26 AM EST Associated Problem(s): Atrial fibrillation (HCC) On Coumadin in the past. Continue Eliquis 5 mg BID. Fall precautions and bleeding precautions discussed. No fall or injuries reported. [id number] History of Present illness Narrative* Mukesh Ramirez PT - 02/17/2023 3:02 PM EST DC summary written documented in this [id number] History of Present illness Narrative* Cheyanne Lane SLP - 02/03/2023 3:30 PM EST [facility] DAILY TREATMENT NOTE Today's Date 02/03/2023 Patient Name: Kevin White Date of : 1940 Current Visit #: 2 Authorized Visits: 11 Case Name: ST-CVA History: Pre-Treatment Pain Scale: 0 Symptoms: stabilized Functional Diagnosis: 1. Acute cerebrovascular accident (CVA) (HCC) 2. 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 Cognitive communication deficit 5. Memory deficit 6. Oropharyngeal dysphagia Clinical Information: Subjective: Patient pleasant during the session. No new medical changes reported. Objective Goal Targeted Task % Correct Cues needed 4 Oral motor exercises Labial suction via straw with occlusion for 30 second duration to target labial strengthening- x5 Speech production with vowels to target labial ROM x10 Mod verbal cues 3 Picking item that belongs to a category Naming additional item in a category 80% 70% 100% Ind. Ind. Min verbal cues 5 Over articulation at the word level 80% Ind. More difficulty with multi syllabic words Goals: Speech Therapy: Comprehension: LTG 1: Patient will demonstrate functional expressive and receptive language skills for improved communication with known and unknown listeners and completion of daily tasks/hobbies by 04/27/2023. 1. Patient will read basic word to phrase level text and answer questions with 80% accuracy to improve functional reading ability during word searches, ads, etc. Expression: 2. Patient will be instructed on word finding compensatory strategies and be able to utilize for improved word retrieval at the conversational level without cues. 3. Patient will complete a variety of expressive language tasks targeting word- finding with 80% of opportunities and independence. (BL: generative namin items, responsive naming 80%, confrontational namin%) Motor Speech: LTG 2: Patient will produce conversational speech with 90% intelligibility or greaterwith no cues for improved communication with use of strategies by 04/27/2023. 4. Patient will complete oral motor exercises with no cues, including but not limited to IOPI for improved lingual and labial strengthening and ROM. 5. Patient will overarticulate consistently initial and final syllables/consonants with no cues. Cognition: LTG 3: Patient will demonstrate improved cognitive skills for recall of functional information with use of strategies by 04/27/2023. 6. Patient will be educated to implement memory strategies to improve recall of functional information with independence and 80% accuracy. Swallowing: LTG 4:Patient will utilize designated swallow strategies during consumption of least restrictive diet with no cues with no overt s/s of aspiration by 04/27/2023. 7. Patient will complete tongue strength/endurance training with use of IOPI device to maximize tongue strength/endurance for swallow and airway protection with no cues to follow evidence based protocol guidelines at a target pressure 80% of max kpa for 10-15 second duration over series of trials. 8. Patient to improve laryngeal elevation/strength/movement and pharyngeal constriction to facilitate increased oropharyngeal transfer and bolus control via therapeutic exercises. Patient Education: Verbal HEP with patient verbalized understanding. Post-Treatment Pain Scale: 0 Assessment: Patient had an expected response to treatment. Skilled Intervention demonstrated by modifications of treatment per exercise log including assessment of patient's response and modalities as indicated and safety interventions per exercise log. Progress towards goals as expected. Plan for Next Visit: Treatment Visit with focus on speech intelligibility, word finding, and memorystrategies. [id number] documented in this [id number] History of Present illness Narrative* Destin Christiansen OT - 02/03/2023 2:45 PM EST [facility] DAILY TREATMENT NOTE Today's Date 02/03/2023 Patient Name: Kevin White Date of : 1940 Current Visit #: 2 Authorized Visits: 11 Case Name: OT-CVA History: Pre-Treatment Pain Scale: 0 Symptoms: stabilized Functional Diagnosis: 1. Lack of coordination due to acute cerebrovascular accident (CVA) (HCC) 2. Unsteadiness on feet 3. Alteration in performance of activities of daily living Clinical Information: Subjective: No new changes reported since previous session. Objective Treatments: Occupational Therapy Exercise Log - 02/03/23 1706 OTHER Precautions/Contraindications OT visit 2 Notes Total treatment time: 1329-8763. LTG 1 and 3 addressed during the session with both goals ongoing. Therapeutic Exercise (08828) Intervention Review of Thera-Band HEP determine accuracy of retained information and to address reaction time and functional strengthening of LUE. OT Treatment Times Therex Total Time 40 Direct Treatment Time 40 Total Treatment Time 40 Goals: Occupational Therapy Neuro goals: 1. Actively participate in upper body home exercise program to help increase activity tolerance, core stability and UB functional strengthening and pt will demonstrate understanding by completing this program without verbal cues. 2. Improve fine motor skills of left UE to resume dominant hand skills with left UE to resume writing, feeding and grooming skills as demonstrated by an improvement in the 9 hole peg test of at least20%. 3. Improve speed and efficiency for left UE object transporting functions as demonstrated by improvement on the box and blocks test by at least 20%. 4. Tolerate up to 12-15 minutes of sustained dynamic standing/functional mobility incorporating functional reaching/carrying while engaged in ADL/therapeutic activities/exercises with modified independence in preparation for ADL's. Patient Education: Quality of movement, Written HEP, and Diagnosis and recovery specific education with patient written information provided . Post-Treatment Pain Scale: 0 Assessment: Patient had an unexpected response to treatment due to Higher than anticipated complexity. Skilled Intervention demonstrated by modifications of treatment per exercise log including increased cueing and increased assistance and safety interventions per exercise log. Progress towards goals unexpected due to higher than anticipated complexity. Plan for Next Visit: Treatment Visit with focus on Theraputty HEP education to address left hand strengthening and FMC. Destin Christiansen, OTR/L STATE LICENSE, [id number] documented in this [id number] History of Present illness Narrative* Vidhi Maldonado PTA - 02/03/2023 2:00 PM EST [facility] DAILY TREATMENT NOTE Today's Date 02/03/2023 Patient Name: Kevin White Date of : 1940 Current Visit #: 2 Authorized Visits: 11 Case Name: PT-CVA History: Pre-Treatment Pain Scale: 0 Symptoms: gradually improved Functional Diagnosis: 1. Ischemic stroke (HCC) 2. Lack of coordination due to acute cerebrovascular accident (CVA) (HCC) 3. Unsteadiness on feet Clinical Information: Subjective: Pt. And ([facility]) states that they would like to see patient be less wobbly upon initially standing up out of a chair. Pt. states pt. Does not do much activity at home and is usually sitting. Denies any recent falls since being home from the hospital. Pt. Often uses an electric cart when grocery shopping. Objective Treatments: Physical Therapy Exercise Log - 02/03/23 1400 OTHER Precautions/Contraindications CVA Notes Visit 2: 14:00-14:40 Vitals Eval: 01/27. POC 2x wk x 8 wks (16 visits) PN due on 02/26 or by 10th visit Therapeutic Exercise (62750) Intervention Access Code: [email or web address] URL: [email or web address] Date: 02/03/2023 Prepared by: Vidhi Maldonado Exercises - Standing March with Counter Support - 2 x daily - 7 x weekly - 1 sets - 15 reps - Standing Hip Abduction with Unilateral Counter Support - 2 x daily - 7 x weekly - 1 sets - 15reps - Standing Knee Flexion with Unilateral Counter Support - 2 x daily - 7 x weekly - 1 sets - 15reps - Heel Toe Raises with Unilateral Counter Support - 2 x daily - 7 x weekly - 1 sets - 15 reps - Standing Hip Extension with Unilateral Counter Support - 2 x daily - 7 x weekly - 1 sets - 15 reps- Standing Partial Squat - 2 x daily - 7 x weekly - 1 sets - 15 reps - Standing Hip Flexion with Counter Support - 2 x daily - 7 x weekly - 1 sets - 15 reps - Sideways Step Touch - 2 x daily - 7 x weekly - 1 sets - 15 reps - Forward Step Touch - 2 x daily - 7 x weekly - 1 sets - 15 reps Neuro Re-Ed (39453) Intervention -- Additional Exercises Add more exercises? Yes Gait Training (40509) Intervention Ambulation 170 ft/170 ft cues for increased LE foot clearance and arm swing to increase safe and functional gait pattern. PT Treatment Times Therex Total Time 30 Gait Training Total Time 10 Direct Treatment Time 40 Total Treatment Time 40 Goals: Physical Therapy Neuro Goals: Patient will achieve unlimited community ambulator status: with ability to independently navigate firm terrain, uneven terrain, thresholds and curbs using no AD with independence in 8 weeks. Patient will ascend/descend 6 steps with reciprocal pattern and outdoor curb with no AD in 6 weeks. Pt will ambulate with minimal imbalance or path deviation in gait over level surfaces for >200 feet including direction changes and turns in 4 weeks. Pt will ambulate demonstrating ability to scan environment during gait over even and uneven terrainwith maintenance of adequate speed, and no path deviations or LOB in 4 weeks. Patient will be able to achieve distance on 2 minute walk test to >300 feet to show improved functional endurance and promote return to community ambulation in 4 weeks. Patient will be able to participate in and achieve distance on 6 minute walk test to >1500 feet to show improved functional endurance and promote return to community ambulation in 8 weeks. Patient will be able to improve TUG score to <10 seconds to demonstrate improved dynamic gait and balance and demonstrate decreased risk for falls in 4 weeks. Patient will be able to perform 5-time [id number]-ty-[id number] test in <12 sec to demonstrate improved functional LE strength in 4 weeks. The patient will safely, correctly, and independently demonstrate the ability to perform a progressive HEP to assist with the rehabilitation program in 2 weeks. The patient will increase LE strength by one-third manual muscle grade in deficit areas to improve elevating from multiple surfaces and ambulation without compensations in 4 weeks. Patient Education: Quality of movement with patient demonstrated understanding and verbalized understanding. Post-Treatment Pain Scale: 0 Assessment: Patient had an expected response to treatment. Skilled Intervention demonstrated by modifications of treatment per exercise log including increased load, increased intensity, and assessment of patient's response and safety interventions per exercise log. Progress towards goals as expected. Plan for Next Visit: Treatment Visit with focus on increasing balance reactions with standing dot taps, use of air ex mat, and continued education for proper gait pattern with arm swing Vidhi Maldonado PTA State License, [id number] documented in this [id number] History of Present illness Narrative* Destin Christiansen OT - 02/02/2023 11:59 PM EST This note is to serve as documentation for today's session cancellation. Information obtained through outpatient registration staff. Per report, Patient's spouse called to cancel due to inclement weather conditions affecting travel. documented in this [id number] Instructions* Patient Instructions* Christina Branham CNP - 02/01/2023 2:49 PM EST Continue Eliquis and aspirin 81 mg daily Continue Lipitor 40 mg daily. Continue to monitor blood pressure at home. Goal blood pressure less than 130/80. Keep mentally and physically active. Continue to do therapy exercises at home. Be cautious with any falls or injuries where you hit your head due to being on a blood thinner. Call with any further questions, concerns, or new changes. Follow-up in 6 months or sooner as needed. Stroke Signs and Symptoms - FAST: Facial drooping, arm weakness, speech difficulty, and time to call 911. - Weakness or numbness in the face, arms, or legs; especially when it is on one side of the body. - Confusion, trouble speaking or understanding. - Changes in vision such as blurry vision or partial or complete loss of vision in one or both eyes. - Trouble walking, dizziness, loss of balance, or coordination. - Severe headache with no reason or explanation. Stroke Lifestyle Changes - Stop smoking, if you smoke. - Get regular exercise. At least 30 minutes a day on most days of the week is recommended. - Lose weight, if you are overweight. - Mediterranean diet is recommended. This diet is rich in fruits, vegetables, and low-fat dairy products. Low amounts of meat, sweets, and refined grains (such as white bread or white rice) should beconsumed. - Monitor sodium intake. Do no add salt to foods. Read food labels, canned foods and processed foods are high in sodium and should be avoided. - Limit alcohol consumption documented in this [id number] History of Present illness Narrative* Christina Branham CNP - 02/01/2023 2:39 PM EST Patient ID: Kevin White is a 82 y.o. male. Assessment/Plan: Problem List Ischemic stroke (HCC) - Primary RIGHT MCA stroke with distal right MCA occlusion. TPA given in [place] and transferred to [place] with updated imaging at that time showing recanalization of M2 occlusion. Not a candidate for thrombectomy and exam continued to improve. Discharged from [facility] on 01/25/2023. Previously on Coumadin for atrial fibrillation but was off for 1.5 years following cardioversion and LA clipping. CONTINUE Eliquis 5 mg BID. Also continue aspirin 81 mg daily and Lipitor 40 mg daily for CAD and stroke prevention. Blood pressure is mildly elevated today. BP goal less than 130/80. Encouraged to continue to monitor closely at home. Hemoglobin A1c 01/06/2023: 6.6% Lipid panel 01/06/2023: Cholesterol 125, Triglycerides 110, HDL 37, and LDL 66. Continue with therapy and therapy exercises at home as well. Encouraged to keep mentally and physically active. Monitor for changes in memory or mood. Stroke signs and symptoms discussed along with lifestyle changes with stroke education placed in AVS. All questions were answered prior to completion of OV today. Follow-up in 6 months, or sooner as needed. Atrial fibrillation (HCC) On Coumadin in the past. Continue Eliquis 5 mg BID. Fall precautions and bleeding precautions discussed. No fall or injuries reported. Follow-up in 6 months, or sooner as needed. Time statement: A total of 40 minutes were spent on this encounter, which includes the time reviewing the patient's diagnostic tests, seeing the patient, speaking with nursing staff, and documenting in the record. Christina Branham, [place], DRAFTER [employer] [facility] Neurology Subjective HPI Kevin White is an 82 year old male who is here for follow-up on his hospitalization for stroke. He fell going to the restroom on 01/06/2023 and was found on his knees by his with noted confusionand left sided weakness. He has a history of HTN, CAD, DM, and atrial fibrillation but had not beenon anticoagulation s/p cardioversions and LA clipping. He was on Coumadin prior to those procedures. He was given tPA and transferred to [facility] from [facility] for possible thrombectomy. Imaging prior to transfer showed distal right MCA occlusion. CTA at [place] showed recanalization of right M2 occlusion and his exam was improving upon arrival to [place]. He was not considered a candidate for YOVANY due to lack of vascular target and previously noted occlusion recanalized on the imaging. Atrial fibrillation was considered for possible etiology of stroke. He was started on anticoagulation with Eliquis 5 mg BID on 01/11/2023. He also continues Lipitor 40 mg daily and aspirin 81 mg daily for CAD and stroke. He is continuing to do outpatient therapy and states he is doing well since discharge. He was discharged from [facility] on 01/25/2023. No further issues with memory or confusion. He still has some weakness in his left arm and left leg but this is improving. He has a slight left facial droop and reports he will drool out of the left side of his mouth on occasion. Occasionally he will stumble over his words and speech will slur but this is all still improving. He denies any fall or injuries since discharge. He denies any issues or concerns with anxiety or depression. No further issues or concerns reported at this time. Review of patients current medication list along with allergies, past medical history, surgical history, family history, and social history was reviewed and updated as appropriate. Review of Systems Constitutional: Negative for activity change, appetite change, chills, fatigue, fever and unexpected weight change. HENT: Negative for trouble swallowing. Eyes: Negative for visual disturbance. Respiratory: Negative for cough, shortness of breath and wheezing. Cardiovascular: Negative for chest pain and palpitations. Gastrointestinal: Negative for abdominal pain, nausea and vomiting. Endocrine: Negative for polydipsia, polyphagia and polyuria. Genitourinary: Negative for difficulty urinating. Musculoskeletal: Negative for arthralgias, back pain and neck pain. Skin: Negative for rash. Neurological: Positive for facial asymmetry (left facial droop), speech difficulty and weakness (left arm and left leg). Negative for dizziness, tremors, seizures, syncope, light-headedness and headaches. Psychiatric/Behavioral: Negative for confusion, decreased concentration, dysphoric mood and sleep disturbance. The patient is not nervous/anxious. Objective BP (!) 145/78 (BP Location: Right arm, Patient Position: Sitting, BP Cuff Size: Adult) Pulse 65 Resp 16 Ht 6' Wt 104.8 kg (231 lb) SpO2 98% BMI 31.33 kg/m Neurologic Exam Mental Status Oriented to person, place, and time. Attention: normal. Concentration: normal. Speech: slurred (Mild slurring of speech but overall speech is clear and fluent.) Level of consciousness: alert Knowledge: good. Cranial Nerves Cranial nerves II through XII intact. CN III, IV, Pupils are equal, round, and reactive to light. Extraocular motions are normal. Right pupil: Size: 2 mm. Consensual response: intact. Accommodation: intact. Left pupil: Size: 2 mm. Consensual response: intact. Accommodation: intact. CN III: no CN III palsy CN : no CN palsy Nystagmus: none Diplopia: none Ophthalmoparesis: none Upgaze: normal Downgaze: normal Conjugate gaze: present CN VII Left facial weakness: peripheral (left facial droop) Motor Exam Muscle bulk: normal Overall muscle tone: normal Right arm pronator drift: absent Left arm pronator drift: absent Strength Strength 5/5 except as noted. Slight weakness noted to left arm and left leg in comparison to rightside. Sensory Exam Light touch normal. Gait, Coordination, and Reflexes Gait Gait: (Gait is relatively steady. Ambulates without assistive device.) Coordination Finger to nose coordination: normal Tandem walking coordination: normal Tremor Resting tremor: absent Intention tremor: absent Action tremor: absent Reflexes Reflexes 2+ except as noted. Physical Exam Vitals and nursing note reviewed. Constitutional: Appearance: He is well-developed. Comments: Patient is very pleasant and cooperative for exam. He is well groomed and dressed appropriate for season. HENT: Head: Normocephalic and atraumatic. Eyes: Extraocular Movements: EOM normal. Pupils: Pupils are equal, round, and reactive to light. Cardiovascular: Rate and Rhythm: Normal rate and regular rhythm. Heart sounds: No murmur heard. Pulmonary: Effort: Pulmonary effort is normal. No respiratory distress. Breath sounds: Normal breath sounds. No wheezing. Abdominal: General: Bowel sounds are normal. There is no distension. Palpations: Abdomen is soft. Musculoskeletal: General: Normal range of motion. Cervical back: Normal range of motion and neck supple. Skin: General: Skin is warm and dry. Findings: No rash. Neurological: Mental Status: He is alert and oriented to person, place, and time. Cranial Nerves: Cranial nerves 2-12 are intact. No cranial nerve deficit. Coordination: Skneyo-Gvak-Ithesz Test normal. Gait: Tandem walk normal. Deep Tendon Reflexes: Reflexes are normal and symmetric. Psychiatric: Speech: Speech is slurred. Behavior: Behavior normal. Thought Content: Thought content normal. Judgment: Judgment normal. documented in this [id number] History of Present illness Narrative* Cheyanne Lane, SUSY - 01/27/2023 9:30 AM EST Images from the original note were not included. [facility] Speech Therapy Evaluation Today's Date 01/27/2023 Patient Name: Kevin White Date of : 1940 Case Name: ST-CVA Functional Diagnosis: 1. Acute cerebrovascular accident (CVA) (HCC) 2. 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 Cognitive communication deficit 5. Memory deficit 6. Oropharyngeal dysphagia Clinical Information: Subjective Referring Diagnosis: R MCA CVA Follow-up with physician: 02/01/2023 Patient accompanied by: spouse (Anamaria) History of Present Illness Date of Onset: 01/05/2023 Contemporary Medical History: [facility] [place] 01/06, Oral Preparation/Oral Phase Oral Phase: Moderate Lipseal: Anterior leak left, Profuse spillage Lingual Control: Bolus to floor of mouth Lingual Coordination: Slow A-P transit Lingual Strength: Oral stasis, Diffuse Residue Clearance: Cued repeat swallow, Iiquid rinse needed, Partial clearance Mastication: Extended time Pharyngeal Phase: Pharyngeal Phase: Mild-Moderate (per CARLOS) Delay Swallow Inititated at: Pyriforms Tongue Base Retraction: Mild, Moderate, Partial epiglottic movement, Valleculae residue Vallecular Residue Flow to Pyriforms: Stasis flow to Pyriforms, Cued repeat swallow, Complete clearance Laryngeal Elevation: Mild, Partial epiglottic movement Supraglottic Closure: Penetration during Swallow, Laryngeal vestibule residue Vocal Cord Closure: Aspiration During Swallow Pharyngeal Sensation: Delayed pharyngeal swallow Laryngeal Sensation: Silent aspiration Aspiration of thin continuous cup, penetration of thin continuous cup, nectar cup and nectar straw. Recommendations PO Recommendations: Pureed, Thin liquid, NO STRAWS, SMALL SIPS Strategies: Check pocketing left Food Presentation: Small bites, Food placement right Liquid Presentation: No straws, Small sips, Liquids by cup Medication Presentation: Whole in puree Subjective History: Patient is a 82 y/o male referred by Dr. Odom d/t R [facility] CVA. Patient received skilled speech therapy on [facility] from 01/16 to 01/26.Reported changes impact the patient's ability to effectively communicate, complete daily tasks and hobbies. Changes began in January 05, 2023. P lashaunient's relevant medical history includes: HTN, CAD, CVA. Patient's chief complaint is: pocketing food on left side and labial spillage, word finding and slurred speech. Patient states, tongue feels swollen. Patient and spouse report difficulty reading and spelling at baseline. Patient enjoys completing word searches. Patient's prior level of function: Patient is retired and enjoys wood working and word searches. Patient lives at home with spouse who manages most IADL's at baseline. Previous Treatment for this condition: Yes Therapy type: inpatient rehab and acute care Patient reports status as: improving Pain Scale Average Pain: 0/10 Social Support: Patient lives with others. Additional Social Support: lives with spouse Activities of Daily Living: independent with all Instrumental Activities of Daily Living Medication management: spouse assists with recalling when to take pills. Meal Preparation - Low Complexity: does not perform Meal Preparation - Moderate Complexity: does not perform Meal Preparation - High Complexity: does not perform Yardwork: Mowing: was completing at baseline. Basic Stock Speculator: does not perform (spouse manages) Complex Stock Speculator: does not perform Reading: difficult at baseline. 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 Prior Avocational Participation (community involvement, hobbies, volunteer): word searches, work working Red Flags: None Comments: Barriers to Care: None Cognitive Evaluation Orientation: Oriented to time: Mild (75-95%) Oriented to self: WFL Oriented to situation: WFL Oriented to place: WFL Memory Immediate Verbal memory: WFL Short-term verbal memory: Moderate (50-74%) (1/3) Assisted Memory: WFL Verbal Expression Verbal Expression Impression - Severity: Mild and Moderate Expressing Basic Needs/ Wants: WFL Expressing Complex wants/needs: Mild (75-95%) Confrontational naming: Mild (75-95%) (85%, with min cues 100%) Divergent Naming - [place]: Moderate (50-74%) Responsive naming: Mild (75-95%) (80%) Picture Description: Mild (75-95%) and Moderate (50-74%) Auditory Comprehension Auditory Comprehension Impression - Severity Scale: WFL Yes/No Questions: Within Functional Limits Basic Questions: Independent/WFL Complex Questions: Mod ind/ ext time One Step Basic Commands: Independent/WFL Two Step Basic Commands: Independent/WFL Paragraph Comprehension: Mod assist 50-74% (suspect exacerbated by memory changes) Written Expression Dominant Hand: Left Tracing/ Copying: spelling difficult at baseline, returned to baseline Reading Comprehension Reading Comprehension Impression - Severity: Mild (reading was difficult at baseline) Motor Speech Method of assessment: Informal measures Dysarthria: Yes Type and Severity: Flaccid, Mild and Moderate Characterized by:: decreased intelligibility, decreased breath support, phonation/respiration incoordination and imprecise articulation Words Intelligibility: 80% % Conversation Intelligibility: 70-80% % Bedside Swallow Eval - 01/27/23 0944 Prior Function Dysphagia Onset 01/05/2023 Patient Complaint Yes Date of Previous MBS 01/06/2023 Results of Previous MBS mild-moderate oropharyngeal dysphagia , penetration of thin continuous cup,nectar cup and nectar straw, aspiration of thin continuous cup Baseline Assessment Respiratory Status Room air Behavior/Cognition Alert;Cooperative;Pleasant mood Dentition Permanent Vision Functional for self-feeding Patient Positioning Upright in chair Baseline Vocal Quality Normal now a lower pitch Volitional Cough Weak;Dry Baseline Cough Dry Volitional Swallow Present Oral/Motor Oral Motor Impression-Severity Scale Mild Labial ROM Reduced left Labial Symmetry at Rest Abnormal symmetry left Lingual ROM Reduced left Lingual Strength Reduced Velum WFL Mandible WFL Facial ROM Reduced left Facial Symmetry at Rest Left lower paresis Facial Sensation WFL Apraxia None present Consistencies Assessed Consistencies Assessed NDD Diet Risk for Aspiration Yes Puree Presentation [employer] fed Oral WFL Pharyngeal WFL usually left labial escape Thin Presentation Cup Oral WFL Pharyngeal WFL Soft Presentation Self Fed Oral Pocketing Left;Spillage Left Pharyngeal Multiple swallows per bolus;WFL Impressions-Severity Oral Severity Scale Mild Per MBS Pharyngeal Severity Scale Suspect mild Per MBS Recommendations Recommendations Dysphagia treatment;Other (Comment) repeat MBS as warranted Diet Solids Recommendation General consistency Solids Presentation Small Bites Diet Liquids Recommendations Thin Liquid Presentation Small sips;Cup Compensatory Swallowing Strategies Upright as possible for all oral intake;Remain upright for 20-30minutes after meals;Lingual sweep;Alternate solids and liquids Medication Presentation Whole;With liquid;With puree per patient preference Amount of Supervision Not required Treatment Plan: Frequency of Visits: twice per week Duration: 10 weeks Interventions: cognitive training (initial/ additional) ([id number]), complex speech treatment (34359), and swallow/ oral function complex treatment (80094) Rehab Potential: good Goals: Speech Therapy: Comprehension: LTG 1: Patient will demonstrate functional expressive and receptive language skills for improved communication with known and unknown listeners and completion of daily tasks/hobbies by 04/27/2023. 1. Patient will read basic word to phrase level text and answer questions with 80% accuracy to improve functional reading ability during word searches, ads, etc. Expression: 2. Patient will be instructed on word finding compensatory strategies and be able to utilize for improved word retrieval at the conversational level without cues. 3. Patient will complete a variety of expressive language tasks targeting word- finding with 80% of opportunities and independence. (BL: generative namin items, responsive naming 80%, confrontational namin%) Motor Speech: LTG 2: Patient will produce conversational speech with 90% intelligibility or greaterwith no cues for improved communication with use of strategies by 04/27/2023. 4. Patient will complete oral motor exercises with no cues, including but not limited to IOPI for improved lingual and labial strengthening and ROM. 5. Patient will overarticulate consistently initial and final syllables/consonants with no cues. Cognition: LTG 3: Patient will demonstrate improved cognitive skills for recall of functional information with use of strategies by 04/27/2023. 6. Patient will be educated to implement memory strategies to improve recall of functional information with independence and 80% accuracy. Swallowing: LTG 4:Patient will utilize designated swallow strategies during consumption of least restrictive diet with no cues with no overt s/s of aspiration by 04/27/2023. 7. Patient will complete tongue strength/endurance training with use of IOPI device to maximize tongue strength/endurance for swallow and airway protection with no cues to follow evidence based protocol guidelines at a target pressure 80% of max kpa for 10-15 second duration over series of trials. 8. Patient to improve laryngeal elevation/strength/movement and pharyngeal constriction to facilitate increased oropharyngeal transfer and bolus control via therapeutic exercises. Patient Education provided: Discussed Plan of care frequency and duration, treatment plan, importance of attendance for recovery, team concept, and diagnosis/pathophysiology/prognosis. Pt is in agreement with plan, and all questions at this time were answered. Clinical Impression: Kevin White presents to [facility] outpatient neurological rehab services on01/27/2023 for a clinical dysphagia evaluation and an informal speech language cognitive evaluations/p CVA. Pt's chief complaints include: slurred speech, word finding, pocketing food on left cheek,memory changes. Upon assessment, pt exhibited mild to moderate cognitive-linguistic impairments in the areas of delayed visual recall, delayed verbal recall, and language. Per patient and patient's spouse, patient had difficulties with reading and spelling at baseline, with patient reading only functional items such as scanning ads and completing word searches. Patient reports reading is mildly more difficult now but spelling abilities remain the same. Patient's auditory comprehension is relatively intact. Patient demonstrates cognitive deficits in areas of memory. Patient reports baseline memory changes, however, now has increased difficulty, as evidenced by short term recall of word list and paragraph. In addition, patient presents with expressive language deficits characterized by 2-3 word utterances,frequent pauses, word finding difficulty. Patient presents with aphasia most consistent with anomicaphasia. Upon speech evaluation, patient presents with mild-moderate flaccid dysarthria characterized by reduced respiratory control for speech, imprecise articulation, and frequent consonant errors resulting in repetition. Clinical dysphagia evaluation completed this date. Trials assessed included: thin liquid via cup, puree via teaspoon, and regular consistency. Mild to moderate oral phase dysphagia characterized by anterior spillage of the bolus, prolonged mastication, pocketing left, poor bolus formation, spillageleft, impaired bolus control, and oral residue. Suspect mild pharyngeal phase dysphagia characterized by reduced hyolaryngeal elevation via manual palpation. Pt exhibited no overt s/s of aspiration noted with trials this date. Per MBS on 01/06, oral phase characterized by left anterior leakage, reduced lingual control, coordination, strength, extended mastication and diffuse oral residue. Pharyngeal phase characterized by mildly reduced base of tongue retraction, epiglottic inversion, supraglottic closure, and laryngeal elevation. PO Recommendations: regular/softer diet with thin liquids, Strategies: lingual sweep, alternate solids and liquids, Posture: upright by 90 degrees, Food Presentation: small bites/sips, Liquid Presentation: small sips via cup, no straws, Medication Presentation: whole with liquids or puree, and Amount of Supervision: set up assistance as needed. The documented impairments result in the following functional limitations: return to driving, medication management, quality of life, increase caregiver support, reduced intelligibility, increase risk of aspiration, reduced ability to communicate complex wants/needs, and social isolation. Potential barriers to rehab include: none. The patient would benefit from skilled ST services focused on the above listed impairments and limitations in order to safely progress patient to desired level of function. and achieve the goals as noted above. Plan of care to be revised as needed based on response to therapeutic intervention. Thank you for allowing me to participate in this patient's care. Please contact me with any questions at the above number. Cheyanne Lane, ACADEMIC SERVICES PROFESSIONAL State License, [phone] This co-signature is to electronically certify that the above named patient, who is under my care, requires skilled therapy services as described in the above treatment plan. I further certify that the services outlined in this plan are skilled and medically necessary. I have reviewed this plan of care for rehabilitation services and recommend that these services continue from 01/27/2023 to 04/27/2023. documented in this [id number] History of Present illness Narrative* Destin Christiansen, OT - 01/27/2023 8:45 AM EST Images from the original note were not included. [facility] Occupational Therapy Evaluation Today's Date 01/27/2023 Patient Name: Kevin White Date of : 1940 Case Name: OT-CVA Functional Diagnosis: 1. Lack of coordination due to acute cerebrovascular accident (CVA) (HCC) 2. Acute cerebrovascular accident (CVA) (HCC) 3. Unsteadiness on feet 4. Alteration in performance of activities of daily living Clinical Information: Subjective Referring Diagnosis: I63.9 (ICD-10-CM) - Acute cerebrovascular accident (CVA) (HCC) Patient accompanied by: spouse History of Present Illness Date of Onset: 01/06/2023 Contemporary Medical History: Past Medical History: Diagnosis Date Arthritis Back pain CHF (congestive heart failure) (HCC) COPD (chronic obstructive pulmonary disease) (HCC) Coronary artery disease Diabetes mellitus (HCC) Diabetes mellitus, type 2 (HCC) Disease of thyroid gland GERD (gastroesophageal reflux disease) Hernia of abdominal wall Hyperlipidemia Hypertension Myocardial infarction (HCC) Sleep apnea, obstructive refuses to use c-pap Stroke (HCC) Past Surgical History: Procedure Laterality Date CABG AVR W/ MAZE Bilateral 08/12/2021 Procedure: CORONARY ARTERY BYPASS GRAFT TIMES THREE (krueger-lad, svg-d1, svg- drca)WITH ENDOVEIN HARVEST, Aortic valve replacement (27mm Paul Inspiris), full LA MAZE (Encompass RFA box, RFA HEATHER, cryoRA caval and RAA line), LEFT ATRIAL APPENDAGE LIGATION (40mm AtriCLIP), TRANSESOPHAGEAL ECHOCARDIOGRAM; Surgeon: Luis Beasley MD; Location: [facility]; Service: Cardiothoracic CARDIAC CATHETERIZATION CARDIAC CATHETERIZATION Bilateral 07/01/2021 No intervention, right radial CARDIAC CATHETERIZATION N/A 07/01/2021 Procedure: Coronary Angiogram; Surgeon: Shmuel Villalpando MD; Location: [facility]; Service: Cardiovascular CARDIAC CATHETERIZATION N/A 07/01/2021 Procedure: Right Heart Cath; Surgeon: Shmuel Villalpando MD; Location: [facility]; Service: Cardiovascular CARDIAC CATHETERIZATION N/A 07/01/2021 Procedure: Left Ventriculogram; Surgeon: Shmuel Villalpando MD; Location: [facility]; Service: Cardiovascular CARDIAC CATHETERIZATION N/A 07/01/2021 Procedure: Left Heart Cath; Surgeon: Shmuel Villalpando MD; Location: [facility]; Service: Cardiovascular cataracts removed Bilateral CORONARY STENT PLACEMENT EP - INTERVENTION N/A 08/24/2021 Procedure: Cardioversion/CTA; Surgeon: Abhishek Lauren MD; Location: [facility] EP LAB; Service: Cardiovascular HERNIA REPAIR W/HYDROCELE Right Subjective History: Pt present this date w/ his spouse for an OP OT evaluation following his recentIPR LOS to address deficits from his recent CVA. Per report, patient presented to [facility] on 01/06/2023from [facility] with left sided weakness and garbled speech, s/p OL tPA. Admitted to [facility] & found to have acute R MCA CVA. Patient was able to receive OT/PT/ST in his acute care setting and was able to transfer to [facility]PR program on 01/15/2023. Patient was able to successfully complete program and was discharged home on 01/25/2023 with his spouse. Currently, both patient and spouse sharethat he has been able to complete his own self-care close to baseline level. However, patient is cur rently having difficulty managing 5 steps to get into the home, has ongoing speech concerns, and isdisplaying difficulty with managing secretions during the session. Patient also displaying notable deficits in rate of performance of his left (dominant) side affecting efficiency of ADL performance. Previous Treatment for this condition: Yes Therapy type: inpatient rehab Patient reports status as: improving Hand dominance: left Pain Scale Pain location: No pain reported Average Pain: 0/10 Personal Goals: Both patient and his spouse shared that they are focused on his speech concerns currently. Functional Mobility Status patient reported and caregiver reported Recent change in functional mobility status: No Current Mobility Status: Home: no device Community: no device Bed Transfer: modified independent Toilet Transfer: modified independent Shower/Tub: modified independent Car Transfer: modified independent Comments: Both the patient and his spouse's report vacillated on patient's current difficulty with dynamic balance. Patient completing functional mobility and OT treatment area without AD but with wide-based shuffling pattern. The patient spouse also shared that patient has been having difficulty managing the 5 steps to get into their home. Current Activity Level: sedentary Premorbid Activity Level: low active Prior to this incident, patient was independent with all B ADLs/IADLs, which included driving. Patient also enjoyed doing word searches, crossword's, attending yazdanism, and making a lot of things inhis basement, such as model cars/trucks/semi-'s. Social Support: Patient lives with others. Additional Social Support: Patient lives in a single-story home with his spouse and son. Zoroastrian, social, or cultural considerations to be made aware of before starting treatment: No Home Environment Current Home Environment: unchanged Setup: single story house First floor: bedroom and full bath Animals in the home: no Anticipated Home Environment at Discharge: unchanged Do you feel safe at home? Yes Activities of Daily Living: patient reported, caregiver reported and independent with all Instrumental Activities of Daily Livingpatient reported, caregiver reported and to be assessed Sleep Assessment Sleep disturbance: no Sleep Disturbance Red Flags: None Comments: Barriers to Care: Cognition Fall risk screening Fallen 2 or more times in the last 12 months: No Injured as a result of a fall in the last 12 months: No Zoroastrian, social, or cultural considerations to be made aware of before starting treatment: No Objective General Observations: Box and Blocks Test: R: 45 completions (29% IMP), L: 38 completions (38% IMP); Nine Hole Peg Test: R: 31 seconds (20% IMP), L: 42 seconds (62% IMP.) Lateral Pinch: R: 15 lbs, L:15 lbs. Saroj Jaw Pinch: R: 18 lbs, L: 17 lbs. Hand dominance: left Affected side: left Cognition/ Mental Status Oriented X 4 TBA: Difficult to accurately assess due to communication deficits. Follows commands: 1-step Attention: Therapist observation :Intact: Benefited from min verbal redirection for sustained attention to task in quiet environment. Sequencing: Therapist observation :Intact: Inconsistent with sequencing 2-3 steps. Problem solving simple: Therapist observation : intact Problem solving complex: Therapist observation : impaired Safety & Judgement/Insight: Therapist observation : impaired Intact: Difficult to accurately assess at this time due to communication deficits. Vision/ Perceptual Skills Subjective symptoms: Patient not reporting any changes in functional vision at this time. However, patient displaying potential visual spatial changes during functional ability due to drifting towards door frames and wall while walking in OT area. Visual Juarez: Pass Shoulder Right Shoulder Range of Motion: WFL Left Shoulder Range of Motion: WFL Elbow Right Elbow WFL Left Elbow Range of Motion: WFL Grasping and Prehension Skill Gross Grasp Right: intact Left: intact Gross Extension Right: intact Left: intact Skilled prehensions Right: partial Left: partial Rapid Drum Sprayer Strength - 01/27/23 0907 Right Rapid Drum Sprayer Strength Drum Sprayer #1: 74.52 Average: 0% IMP #2: 76.67 #3: 53.1 Average: 68.1 Left Rapid Drum Sprayer Strength: Drum Sprayer #1: 65.95 Average: 0% IMP #2: 63.1 #3: 65.71 Average: 64.92 Treatment Plan: Frequency of Visits: twice per week Duration: 4 weeks Interventions: Therapeutic Exercise (11241), Neuromuscular Re-Education (17716), Therapeutic/ Functional Activities (93372), and Self Care (99946) Rehab Potential: fair Occupational Therapy Neuro goals: 1. Actively participate in upper body home exercise program to help increase activity tolerance, core stability and UB functional strengthening and pt will demonstrate understanding by completing this program without verbal cues. 2. Improve fine motor skills of left UE to resume dominant hand skills with left UE to resume writing, feeding and grooming skills as demonstrated by an improvement in the 9 hole peg test of at least20%. 3. Improve speed and efficiency for left UE object transporting functions as demonstrated by improvement on the box and blocks test by at least 20%. 4. Tolerate up to 12-15 minutes of sustained dynamic standing/functional mobility incorporating functional reaching/carrying while engaged in ADL/therapeutic activities/exercises with modified independence in preparation for ADL's. Patient Education provided: Discussed Plan of care frequency and duration, treatment plan, importance of attendance for recovery, team concept, and diagnosis/pathophysiology/prognosis. Pt is in agreement with plan, and all questions at this time were answered Occupational Profile/Client History High Complexity - Occupational Profile and medical history includes review history of medical and/or therapy records and includes extensive additional review of physical, cognitive, or psychosocial history. Patient Assessment: Number of performance deficits causing inability to complete activities due to the lack of skills relating to physical, cognitive, or psychosocial skills) Performance deficits include: Balance impairments, Mobility impairments, Endurance impairments, Fine motor coordination impairments, and Gross motor coordination impairments 3-5 (Moderate) performance deficits identified which result in limitations and/or participation restriction. Clinical Decision Making: Moderate Complexity - moderate complexity of clinical decision making including occupational profile/data from detailed assessments; consideration of several treatment options; may present with comorbidities that affect occupation performance; minimal or moderate modification of tasks or assistance is required.. Patients comorbidities affecting occupational performance include: cardiac history Clinical Impression: Kevin White presents to [facility] on 01/27/2023 for an occupational therapy assessment with c/o Communication concerns. Upon assessment Patient displaying deficits in left hand coordination, dynamic balance, activity tolerance, sustained attention, and active problem-solving. These performance deficits impact Kevin White's ability to participate in the following performance in areas of ADLs/IADLs, functional mobility, stairs, carrying, reaching, and FMC tasks. Potential barriers to rehabilitation include chronicity or severity of the current condition. The patient would benefit from skilled Occupational Therapy services focused on the above listed performance deficits in order to achieve the goals as noted. Plan of care to be revised as needed based on response to therapeutic intervention. Thank you for allowing me to participate in this patient's care. Please contact me with any questions at the above number. XAVI Simpson/Vignesh STATE LICENSE, [id number] documented in this [id number] Miscellaneous Notes* Plan of Care - Kassidy Pierre OT - 01/25/2023 1:27 PM EST [facility] Occupational Therapy Notes Problem: Self-care Deficit Goal: OT- LTG feeding Description: OT - Patient will complete self-feeding with modified independence to improve self care function. Outcome: Met Goal: OT- LTG grooming Description: OT - Patient will complete grooming standing at the sink with modified independence toimprove self care function. Outcome: Partially Met Note: Cues for L side scanning/attention, standing at sink with Mod Ind. Goal: OT- LTG UB dressing Description: OT - Patient will complete UB/LB dressing, which would include gathering clothing fromcloset, with modified independence to improve self care function. Outcome: Partially Met Note: Supervision/setup Goal: OT- LTG UB bathing Description: OT - Patient will complete UB/LB showering with modified independence to improve self care function. Outcome: Partially Met Note: Supervision/setup with minimal cues Goal: OT- LTG home management Description: OT - Patient will tolerate at least 8-10 minutes of static standing to complete home management with modified independence to improve self care function. Outcome: Not Addressed Note: Spouse and family will assist with all IADL's at home. Problem: Mobility - Impaired Goal: OT- LTG toilet transfer Description: OT - Patient will complete toileting and toilet transfer with modified independence inpreparation for ADL's. Outcome: Partially Met Note: SBA Goal: OT- LTG tub transfer Description: OT - Patient will complete shower transfer with modified independence in preparation for ADL's. Outcome: Partially Met Note: SBA Problem: Impaired Strength Goal: OT- LTG Strength Other Description: OT- Patient will tolerate at least 5-8 minutes of sustained UB AROM/ strengthening therapeutic exercises seated/standing to improve functional strength for safe DME management and ADL performance. Outcome: Met Problem: Cognition - Impaired Goal: OT- LTG sequencing Description: OT - Patient will sequence 3 or more step task with modified independence in preparation for ADL's. Outcome: Partially Met Note: Supervision Problem: Impaired Neurologic Function Goal: OT- LTG dynamic sitting balance Description: OT - Patient will complete sustained dynamic sitting balance activity for at least 15 minutes with modified independence in preparation for ADL's. Outcome: Met Goal: OT- LTG dynamic standing balance Description: OT - Patient will tolerate at least 8-10 minutes of sustained dynamic standing/functional mobility while engaged in ADL/therapeutic activities/exercises with modified independence in preparation for ADL's. Outcome: Partially Met Note: CGA-Min A for dynamic standing balance depending on task, standing for up to 9 minutes Goal: OT- LTG in-hand manipulation/coordination Description: OT - Patient will participate in various neuromuscular reeducation/therapeutic activity/exercises to improve bimanual coordination which would include reaction time and functional strength to improve efficiency with ADL performance as evidenced by at least making 10% improvement in hand function outcome measures. Outcome: Partially Met * Plan of Care - Anisa Luther SLP - 01/25/2023 1:27 PM [facility] Notes Problem: Communication - Impaired Goal: ST- STG Expressive- verbal description Description: ST Expressive - Patient will describe object function, pictures, and tasks with 90% accuracy and minimal cues. Outcome: Partially Met Note: Pt completed expressive language task via identifying letters in words with 90% accuracy independently. Pt benefited from larger print to increase accuracy. Pt able to read 50% of words in wordbank this date independently. Pt copied written message with 100% accuracy for letter identification and 75% accuracy for word identification. Pt noted with 3-4 word utterances. Pt reporting increased difficulty with word finding this date, however no anomia or circumlocution observed in unstructured conversation. Pt does benefit from increased processing time. Goal: ST- STG Motor speech- speech intelligibility strategies Description: ST Motor Speech - Patient will use speech intelligibility strategies at conversation level with 90% accuracy and minimal cues. Outcome: Partially Met Note: Reviewed SOS strategies this date. Pt noted with low intensity speech throughout session and benefited from mod verbal reminders to speak up. Pt endorsing naturally quiet at baseline, however voiced awareness of need to speak up. Pt remained 100% intelligible in unstructured conversation. Goal: ST- STG Voice- strengthening/breath support Description: ST Voice - Patient will perform breath support exercises for improved functional phonation with 90% accuracy and minimal cues. Outcome: Partially Met Note: Educated to use of diaphragmatic breathing vs clavicular breathing. Pt completed diaphragmatic breathing x7 with visual model and tactile cue of hands of diaphragm to feel expansion and contraction. Goal: ST- G Motor speech- speech intelligibility strategies Description: ST Motor Speech - Patient will use speech intelligibility strategies at conversation level with no cues. Outcome: Partially Met Problem: Swallowing - Impaired Goal: ST- STG Oral Swallowing- oral motor function Description: ST Oral Swallowing - Patient will perform oral motor exercises to improve strength, coordination and function of oral musculature x 15 repetitions with minimal cues. Outcome: Partially Met Note: Pt completed oral motor exercises via alternating smile/pucker x15 with visual model. Pt benefited from use of mirror for visual feedback. Goal: ST- STG Oral Swallowing- lingual strength Description: ST Swallowing - Patient will complete isometric lingual strengthening exercises x 15 repetitions with minimal cues. Outcome: Partially Met Note: Pt completed isometric lingual strengthening exercises to target lingual strengthening x15. Pt benefited from visual model and mod verbal cues for tongue placement. Goal: ST- STG Swallow Strategies/Postures- safe swallowing strategies Description: ST Swallow Strategies/Postures - Patient will demonstrate use of safe swallowing strategies with minimal cues. Outcome: Partially Met Note: Educated pt to use of lingual sweep following bites given continued pocketing on left. Pt verbalized understanding and demonstrated lingual sweep without bolus. Pt accepted po trials of thin liquids via large bore straw with no overt signs/symptoms concerning for laryngeal penetration or aspiration. Goal: ST- STG Diet Tolerance- tolerate upgraded solids Description: ST - Diet Tolerance - Patient will tolerate upgrade of solid trials to NDD4 without overt or clinical signs or symptoms of aspiration via clinical assessment. Outcome: Not Addressed Goal: ST- LTG Swallow Strategies/Postures- safe swallowing strategies Description: ST Swallow Strategies/Postures - Patient will tolerate least restrictive diet with no overt signs/symptoms concerning for laryngeal penetration or aspiration or change in pulmonary status. Outcome: Partially Met Problem: Cognition - Impaired Goal: - STG O-Log Description: ST O-Log - Patient will score a 25 or above on two separate administrations of the O-Log. Outcome: Partially Met Note: The Orientation Log (O-Log) is designed to be a quick quantitative measure of orientational status for use at bedside with rehabilitation inpatients. Place, time, and situational (Etiology/Event + Pathology/Deficits) domains are assessed. Patient responses are scored according to the following criteria: 3 = correct spontaneously or upon first free recall attempt; 2 = correct upon logical cueing (e.g., That was yesterday, so today must be ); 1 = correct upon multiple choice or phonemic cuing; and 0 = incorrect despite cueing, inappropriate response, or unable to respond. Patient /30 this date with deficits in day of the week and date and benefited from logical cueing to incre ase accuracy. Goal: - [facility] Memory- memory strategies Description: ST Memory - Patient will complete memory tasks with the use of memory strategies with 90% accuracy and minimal cues. Outcome: Partially Met Note: Educated pt to use of WRAP-G memory strategies and use of a calendar to keep track of important doctors appointments following discharge, however pt report his will manage all of that. Goal: [facility] Problem Solving- verbal problem solving Description: ST Problem Solving - Patient will complete basic progressing to complex verbal problemsolving and tasks with 90% accuracy and minimal cues. Outcome: Partially Met Note: Pt completed basic problem solving via identifying problems in pictures with 20% accuracy independently. Pt benefited from logical, semantic, and multiple choice cues to increase accuracy to 60%. Pt identified solutions for stated problems with 40% accuracy give mod I. Goal: ST- STG Executive Function- sequencing/organization/planning Description: ST Executive Function - Patient will complete basic sequencing, organizing, and planning tasks with 90% accuracy and minimal cues. Outcome: Partially Met Note: Pt completed sequencing, organizing, planning, and visual scanning task via word search with 90% accuracy with mod I. Pt benefited from logical cues to scan from left to right. Pt noted to [place] extra letters x2 and benefited from logical cues to cross words out from word bank. Pt additionally benefited from increased processing time and logical cues for start of word. Problem: Cognition - Impaired Goal: ST- LTG Executive Function- sequencing/organization/planning Description: ST Executive Function - Patient will demonstrate baseline cognitive linguistic abilities to aid in safe return to independence w/ADLs/iADLs and return to prior level of function. Outcome: Partially Met * Quick Note - Kiana Rodriguez RN - 01/25/2023 1:26 PM EST Patient discharged home with . * Plan of Care - Dorothy Quijano, PT - 01/25/2023 11:13 AM EST [facility] Physical Therapy Notes Problem: Mobility - Impaired Goal: PT- LTG bed mobility Description: PT - Patient will perform bed mobility with modified independence to improve functional mobility and safety. Outcome: Met Note: TN with or without HR. Pt with increased safety with HR Goal: PT- LTG sit to stand transfer Description: PT - Patient will perform sit to/from stand transfer with modified independence to improve functional mobility and safety. Outcome: Partially Met Note: SBA with RW Goal: PT- LTG stand-pivot transfer Description: PT - Patient will perform stand-pivot transfer with modified independence , supervision with or without appropriate device to improve functional mobility and safety. Outcome: Met Note: Pt is supervision with RW Goal: PT- LTG car transfer Description: PT - Patient will perform car transfer with modified independence , supervision to improve functional mobility and safety. Outcome: Met Note: SBA with RW and safety cues Goal: PT- LTG dynamic balance Description: PT - Patient will improve MARSHALL score from 31/56 to >45/56 to improve functional mobility and safety and decrease fall risk. Outcome: Partially Met Goal: PT- LTG ambulation Description: PT - Patient will ambulate 300 feet with or without appropriate device with modified independence , supervision to improve functional mobility and safety. Outcome: Met Note: Pt can walk up to 300 ft with RW on multiple surfaces Goal: PT- LTG stair climbing Description: PT - Patient will ascend and descend 7 stairs with reciprocal technique with 2 rails with supervision to improve functional mobility and safety. Outcome: Met Note: 12 with 2 HR and SBA Goal: PT- LTG mobility other Description: PT- Patient will be able to complete TUG in < 12 seconds with supervision/ modifiedindependence with or without appropriate device to decrease fall risk with functional mobility. Outcome: Met Problem: Impaired Strength Goal: PT- STG strengthening Description: PT - Patient will complete left hip knee ankle home strengthening exercise program independently in preparation for function. Outcome: Met Note: Pt can perform indp in seated for LE HEP Problem: Mobility - Impaired Goal: PT- LTG wheelchair management Description: PT - Patient will propel and manage wheelchair 150 feet on even and uneven surfaces with independence to improve functional mobility and safety. Outcome: Met * Plan of Care - Kiana Rodriguez RN - 01/25/2023 10:28 AM EST [facility] Nurse Notes Problem: Actual or potential alteration in health Goal: Absence of healthcare acquired conditions Outcome: Completed Goal: Knowledge of Interdisciplinary Plan of Care Outcome: Completed Goal: Knowledge of Enviroment Outcome: Completed Problem: Pressure Ulcer - Risk of Goal: Absence of pressure ulcer Outcome: Completed Problem: Pain Goal: Manage acute pain Outcome: Completed Goal: Manage chronic pain Outcome: Completed Goal: Reduced pain sensation Outcome: Completed Goal: Achievement of comfort function goal Outcome: Completed Problem: Falls, Risk of Goal: Absence of falls Outcome: Completed No falls to date. Fall precautions implemented and maintained. * Plan of Care - Marissa Glasgow RN - 01/25/2023 2:25 AM EST [facility] Nurse Notes Problem: Actual or potential alteration in health Goal: Absence of healthcare acquired conditions Outcome: Partially Met Goal: Knowledge of Interdisciplinary Plan of Care Outcome: Partially Met Goal: Knowledge of Enviroment Outcome: Partially Met Problem: Pressure Ulcer - Risk of Goal: Absence of pressure ulcer Outcome: Partially Met Problem: Pain Goal: Manage acute pain Outcome: Partially Met Goal: Manage chronic pain Outcome: Partially Met Goal: Reduced pain sensation Outcome: Partially Met Goal: Achievement of comfort function goal Outcome: Partially Met Problem: Falls, Risk of Goal: Absence of falls Outcome: Partially Met * Plan of Care - Ludin Stock RN - 01/23/2023 11:06 PM EST Problem: Actual or potential alteration in health Goal: Absence of healthcare acquired conditions Outcome: Partially Met Goal: Knowledge of Interdisciplinary Plan of Care Outcome: Partially Met Goal: Knowledge of Enviroment Outcome: Partially Met Problem: Pressure Ulcer - Risk of Goal: Absence of pressure ulcer Outcome: Partially Met Problem: Pain Goal: Manage acute pain Outcome: Partially Met Goal: Manage chronic pain Outcome: Partially Met Goal: Reduced pain sensation Outcome: Partially Met Goal: Achievement of comfort function goal Outcome: Partially Met Problem: Falls, Risk of Goal: Absence of falls Outcome: Partially Met * Plan of Care - Ludin Stock RN - 01/23/2023 2:00 AM EST Problem: Actual or potential alteration in health Goal: Absence of healthcare acquired conditions Outcome: Partially Met Goal: Knowledge of Interdisciplinary Plan of Care Outcome: Partially Met Goal: Knowledge of Enviroment Outcome: Partially Met Problem: Pressure Ulcer - Risk of Goal: Absence of pressure ulcer Outcome: Partially Met Problem: Pain Goal: Manage acute pain Outcome: Partially Met Goal: Manage chronic pain Outcome: Partially Met Goal: Reduced pain sensation Outcome: Partially Met Goal: Achievement of comfort function goal Outcome: Partially Met Problem: Falls, Risk of Goal: Absence of falls Outcome: Partially Met * Plan of Care - Kiana Rodriguez RN - 01/21/2023 1:41 PM EST [facility] Nurse Notes Problem: Actual or potential alteration in health Goal: Absence of healthcare acquired conditions Outcome: Partially Met Goal: Knowledge of Interdisciplinary Plan of Care Outcome: Partially Met Goal: Knowledge of Enviroment Outcome: Partially Met Problem: Pressure Ulcer - Risk of Goal: Absence of pressure ulcer Outcome: Partially Met Problem: Pain Goal: Manage acute pain Outcome: Partially Met Goal: Manage chronic pain Outcome: Partially Met Goal: Reduced pain sensation Outcome: Partially Met Goal: Achievement of comfort function goal Outcome: Partially Met Problem: Falls, Risk of Goal: Absence of falls Outcome: Partially Met * Plan of Care - Izabella Powell RN - 01/21/2023 1:49 AM EST [facility] Nurse Notes Problem: Actual or potential alteration in health Goal: Absence of healthcare acquired conditions Outcome: Partially Met Goal: Knowledge of Interdisciplinary Plan of Care Outcome: Partially Met Goal: Knowledge of Enviroment Outcome: Partially Met Problem: Pressure Ulcer - Risk of Goal: Absence of pressure ulcer Outcome: Partially Met Problem: Pain Goal: Manage acute pain Outcome: Partially Met Goal: Manage chronic pain Outcome: Partially Met Goal: Reduced pain sensation Outcome: Partially Met Goal: Achievement of comfort function goal Outcome: Partially Met Problem: Falls, Risk of Goal: Absence of falls Outcome: Partially Met * Plan of Care - Chelo Riddle RN - 01/19/2023 10:55 PM EST Problem: Actual or potential alteration in health Goal: Absence of healthcare acquired conditions Outcome: Partially Met Goal: Knowledge of Interdisciplinary Plan of Care Outcome: Partially Met Goal: Knowledge of Enviroment Outcome: Partially Met Problem: Pressure Ulcer - Risk of Goal: Absence of pressure ulcer Outcome: Partially Met Problem: Pain Goal: Manage acute pain Outcome: Partially Met Goal: Manage chronic pain Outcome: Partially Met Goal: Reduced pain sensation Outcome: Partially Met Goal: Achievement of comfort function goal Outcome: Partially Met Problem: Falls, Risk of Goal: Absence of falls Outcome: Partially Met * Plan of Care - Marissa Glasgow RN - 01/19/2023 2:14 AM EST [facility] Nurse Notes Problem: Actual or potential alteration in health Goal: Absence of healthcare acquired conditions Outcome: Partially Met Goal: Knowledge of Interdisciplinary Plan of Care Outcome: Partially Met Goal: Knowledge of Enviroment Outcome: Partially Met Problem: Pressure Ulcer - Risk of Goal: Absence of pressure ulcer Outcome: Partially Met Problem: Pain Goal: Manage acute pain Outcome: Partially Met Goal: Manage chronic pain Outcome: Partially Met Goal: Reduced pain sensation Outcome: Partially Met Goal: Achievement of comfort function goal Outcome: Partially Met * Plan of Care - Dorothy Quijano PT - 01/18/2023 4:26 PM EST [facility] Physical Therapy Notes Problem: Mobility - Impaired Goal: PT- LTG bed mobility Description: PT - Patient will perform bed mobility with modified independence to improve functional mobility and safety. Outcome: Not Met Note: Supervision with cues Goal: PT- LTG stand-pivot transfer Description: PT - Patient will perform stand-pivot transfer with modified independence , supervision with or without appropriate device to improve functional mobility and safety. Outcome: Partially Met Note: SBA/CGA with rollator or RW with cues for hand placement and safety with rollator brakes Goal: PT- LTG car transfer Description: PT - Patient will perform car transfer with modified independence , supervision to improve functional mobility and safety. Outcome: Not Met Note: Superviison/ CGA Goal: PT- LTG dynamic balance Description: PT - Patient will improve MARSHALL score from 31/56 to >45/56 to improve functional mobility and safety and decrease fall risk. Outcome: Not Addressed Note: NT since eval Goal: PT- LTG ambulation Description: PT - Patient will ambulate 300 feet with or without appropriate device with modified independence , supervision to improve functional mobility and safety. Outcome: Not Met Note: 270 ft with RW and SBA/CGA with RW/ rollator with increased cues for technique Goal: PT- LTG stair climbing Description: PT - Patient will ascend and descend 7 stairs with reciprocal technique with 2 rails with supervision to improve functional mobility and safety. Outcome: Not Met Note: 12 steps with 1-2 HR and CGA and cues for safety. Goal: PT- LTG mobility other Description: PT- Patient will be able to complete TUG in < 12 seconds with supervision/ modifiedindependence with or without appropriate device to decrease fall risk with functional mobility. Outcome: Not Addressed Problem: Impaired Strength Goal: PT- STG strengthening Description: PT - Patient will complete left hip knee ankle home strengthening exercise program independently in preparation for function. Outcome: Partially Met Note: Pt with supervision and cues for technique. Problem: Mobility - Impaired Goal: PT- LTG wheelchair management Description: PT - Patient will propel and manage wheelchair 150 feet on even and uneven surfaces with independence to improve functional mobility and safety. Outcome: Not Addressed Note: NT since eval going 252 ft with supervision. Pt has made minimal progress towards his goals due to just being evaluated, but is partially meeting them. he has gained strength and independence in all areas of mobility. Pt is limited at this timedue to pain, strength, and endurance. he will need to work more on his stairs for home going. Family/caregiver training will need completed. he will need to also work on his standing balance for tasks at home. Cont with PT POC. * Plan of Care - Kassidy Pierre OT - 01/18/2023 4:01 PM EST [facility] Occupational Therapy Notes Problem: Self-care Deficit Goal: OT- LTG feeding Description: OT - Patient will complete self-feeding with modified independence to improve self care function. Outcome: Not Addressed Goal: OT- LTG grooming Description: OT - Patient will complete grooming standing at the sink with modified independence toimprove self care function. Outcome: Not Addressed Goal: OT- LTG UB dressing Description: OT - Patient will complete UB/LB dressing, which would include gathering clothing fromcloset, with modified independence to improve self care function. Outcome: Partially Met Note: SBA for UBD, CGA for LBD Goal: OT- LTG UB bathing Description: OT - Patient will complete UB/LB showering with modified independence to improve self care function. Outcome: Not Addressed Goal: OT- LTG home management Description: OT - Patient will tolerate at least 8-10 minutes of static standing to complete home management with modified independence to improve self care function. Outcome: Not Addressed Problem: Impaired Strength Goal: OT- LTG Strength Other Description: OT- Patient will tolerate at least 5-8 minutes of sustained UB AROM/ strengthening therapeutic exercises seated/standing to improve functional strength for safe DME management and ADL performance. Outcome: Partially Met Note: Theraband exercises Problem: Cognition - Impaired Goal: OT- LTG sequencing Description: OT - Patient will sequence 3 or more step task with modified independence in preparation for ADL's. Outcome: Partially Met Problem: Impaired Neurologic Function Goal: OT- LTG dynamic sitting balance Description: OT - Patient will complete sustained dynamic sitting balance activity for at least 15 minutes with modified independence in preparation for ADL's. Outcome: Partially Met Goal: OT- LTG dynamic standing balance Description: OT - Patient will tolerate at least 8-10 minutes of sustained dynamic standing/functional mobility while engaged in ADL/therapeutic activities/exercises with modified independence in preparation for ADL's. Outcome: Partially Met Note: 5 minutes with CGA for static standing balance Goal: OT- LTG in-hand manipulation/coordination Description: OT - Patient will participate in various neuromuscular reeducation/therapeutic activity/exercises to improve bimanual coordination which would include reaction time and functional strength to improve efficiency with ADL performance as evidenced by at least making 10% improvement in hand function outcome measures. Outcome: Not Met Summary: Pt is making fair progress towards OT goals. Pt has demonstrated improvements in ADL's andtransfers. Barriers to discharge include balance deficits. Plan to address caregiver training priorto date of discharge for improved safety at home. Also need to prioritize balance and IADL's in therapy sessions. Continue to address goals in POC. * Plan of Care - Cesia Poon SLP - 01/18/2023 3:[address] [facility] Speech Language Pathology Notes Problem: Communication - Impaired Goal: ST- STG Expressive- verbal description Description: ST Expressive - Patient will describe object function, pictures, and tasks with 90% accuracy and minimal cues. Outcome: Not Addressed Goal: ST- STG Motor speech- speech intelligibility strategies Description: ST Motor Speech - Patient will use speech intelligibility strategies at conversation level with 90% accuracy and minimal cues. Outcome: Not Addressed Goal: ST- STG Voice- strengthening/breath support Description: ST Voice - Patient will perform breath support exercises for improved functional phonation with 90% accuracy and minimal cues. Outcome: Not Addressed Goal: ST- LTG Motor speech- speech intelligibility strategies Description: ST Motor Speech - Patient will use speech intelligibility strategies at conversation level with no cues. Outcome: Not Addressed Problem: Swallowing - Impaired Goal: ST- STG Oral Swallowing- oral motor function Description: ST Oral Swallowing - Patient will perform oral motor exercises to improve strength, coordination and function of oral musculature x 15 repetitions with minimal cues. Outcome: Not Addressed Goal: ST- STG Oral Swallowing- lingual strength Description: ST Swallowing - Patient will complete isometric lingual strengthening exercises x 15 repetitions with minimal cues. Outcome: Not Addressed Goal: ST- STG Swallow Strategies/Postures- safe swallowing strategies Description: ST Swallow Strategies/Postures - Patient will demonstrate use of safe swallowing strategies with minimal cues. Outcome: Not Addressed Goal: ST- STG Diet Tolerance- tolerate upgraded solids Description: ST - Diet Tolerance - Patient will tolerate upgrade of solid trials to NDD4 without overt or clinical signs or symptoms of aspiration via clinical assessment. Outcome: Not Addressed Goal: ST- LTG Swallow Strategies/Postures- safe swallowing strategies Description: ST Swallow Strategies/Postures - Patient will tolerate least restrictive diet with no overt signs/symptoms concerning for laryngeal penetration or aspiration or change in pulmonary status. Outcome: Not Addressed Problem: Cognition - Impaired Goal: ST- STG O-Log Description: ST O-Log - Patient will score a 25 or above on two separate administrations of the O-Log. Outcome: Partially Met Note: Patient scored 25/30 with noted difficulty in the areas of orientation to place, date, JESSICA, time and was noted to benefit from semantic and MC cues. Goal: ST- STG Memory- memory strategies Description: ST Memory - Patient will complete memory tasks with the use of memory strategies with 90% accuracy and minimal cues. Outcome: Not Addressed Goal: ST- STG Problem Solving- verbal problem solving Description: ST Problem Solving - Patient will complete basic progressing to complex verbal problemsolving and tasks with 90% accuracy and minimal cues. Outcome: Not Addressed Goal: ST- STG Executive Function- sequencing/organization/planning Description: ST Executive Function - Patient will complete basic sequencing, organizing, and planning tasks with 90% accuracy and minimal cues. Outcome: Partially Met Note: Pt completed sequencing, reasoning, attention and organizing via sequencing 4 step written tasks w/25% acc w/mod I and benefited from min-mod A semantic and logical cueing to increase acc to 100% * Plan of Care - Ludin Stock RN - 01/18/2023 12:22 AM EST Problem: Actual or potential alteration in health Goal: Absence of healthcare acquired conditions 01/18/202321 by Ludin Stock RN Outcome: Partially Met 01/18/202310 by Ludin Stock RN Outcome: Partially Met Goal: Knowledge of Interdisciplinary Plan of Care 01/18/202321 by Ludin Stock RN Outcome: Partially Met 01/18/202310 by Ludin Stock RN Outcome: Partially Met Goal: Knowledge of Enviroment 01/18/202321 by Ludin Stock RN Outcome: Partially Met 01/18/202310 by Ludin Stock RN Outcome: Partially Met Problem: Pressure Ulcer - Risk of Goal: Absence of pressure ulcer 01/18/202321 by Ludin Stock RN Outcome: Partially Met 01/18/202310 by Ludin Stock RN Outcome: Partially Met Problem: Pain Goal: Manage acute pain 01/18/202321 by Ludin Stock RN Outcome: Partially Met 01/18/202310 by Ludin Stock RN Outcome: Partially Met Goal: Manage chronic pain 01/18/202321 by Ludin Stock RN Outcome: Partially Met 01/18/202310 by Ludin Stock RN Outcome: Partially Met Goal: Reduced pain sensation 01/18/2023 002 by Ludin Stock RN Outcome: Partially Met 01/18/202310 by Ludin Stock RN Outcome: Partially Met Goal: Achievement of comfort function goal 01/18/2023 002 by Ludin Stock RN Outcome: Partially Met 01/18/202310 by Ludin Stock RN Outcome: Partially Met * Plan of Care - Ludin Stock RN - 01/18/2023 12:11 AM EST Problem: Actual or potential alteration in health Goal: Absence of healthcare acquired conditions Outcome: Partially Met Goal: Knowledge of Interdisciplinary Plan of Care Outcome: Partially Met Goal: Knowledge of Enviroment Outcome: Partially Met Problem: Pressure Ulcer - Risk of Goal: Absence of pressure ulcer Outcome: Partially Met Problem: Pain Goal: Manage acute pain Outcome: Partially Met Goal: Manage chronic pain Outcome: Partially Met Goal: Reduced pain sensation Outcome: Partially Met Goal: Achievement of comfort function goal Outcome: Partially Met * Plan of Care - Mayra Hogue RN - 01/17/2023 11:16 AM EST [facility] Nurse Notes Problem: Actual or potential alteration in health Goal: Absence of healthcare acquired conditions Outcome: Partially Met Goal: Knowledge of Interdisciplinary Plan of Care Outcome: Partially Met Goal: Knowledge of Enviroment Outcome: Partially Met Problem: Pressure Ulcer - Risk of Goal: Absence of pressure ulcer Outcome: Partially Met Problem: Pain Goal: Manage acute pain Outcome: Partially Met Goal: Manage chronic pain Outcome: Partially Met Goal: Reduced pain sensation Outcome: Partially Met Goal: Achievement of comfort function goal Outcome: Partially Met * Plan of Care - Ludin Stock RN - 01/17/2023 3:10 AM EST Problem: Actual or potential alteration in health Goal: Absence of healthcare acquired conditions Outcome: Partially Met Goal: Knowledge of Interdisciplinary Plan of Care Outcome: Partially Met Goal: Knowledge of Enviroment Outcome: Partially Met Problem: Pressure Ulcer - Risk of Goal: Absence of pressure ulcer Outcome: Partially Met Problem: Pain Goal: Manage acute pain Outcome: Partially Met Goal: Manage chronic pain Outcome: Partially Met Goal: Reduced pain sensation Outcome: Partially Met Goal: Achievement of comfort function goal Outcome: Partially Met * Plan of Care - Mayra Hogue RN - 01/16/2023 10:13 AM EST [facility] Nurse Notes Problem: Actual or potential alteration in health Goal: Absence of healthcare acquired conditions Outcome: Partially Met Goal: Knowledge of Interdisciplinary Plan of Care Outcome: Partially Met Goal: Knowledge of Enviroment Outcome: Partially Met Problem: Pressure Ulcer - Risk of Goal: Absence of pressure ulcer Outcome: Partially Met Problem: Pain Goal: Manage acute pain Outcome: Partially Met Goal: Manage chronic pain Outcome: Partially Met Goal: Reduced pain sensation Outcome: Partially Met Goal: Achievement of comfort function goal Outcome: Partially Met * Plan of Care - Christin Mendez PT - 01/16/2023 9:33 AM EST [facility] Physical Therapy Notes Problem: Mobility - Impaired Goal: PT- LTG bed mobility Description: PT - Patient will perform bed mobility with modified independence to improve functional mobility and safety. Outcome: Not Addressed Goal: PT- LTG sit to stand transfer Description: PT - Patient will perform sit to/from stand transfer with modified independence to improve functional mobility and safety. Outcome: Not Addressed Goal: PT- LTG stand-pivot transfer Description: PT - Patient will perform stand-pivot transfer with modified independence , supervision with or without appropriate device to improve functional mobility and safety. Outcome: Not Addressed Goal: PT- LTG car transfer Description: PT - Patient will perform car transfer with modified independence , supervision to improve functional mobility and safety. Outcome: Not Addressed Goal: PT- LTG dynamic balance Description: PT - Patient will improve MARSHALL score from 31/56 to >45/56 to improve functional mobility and safety and decrease fall risk. Outcome: Not Addressed Goal: PT- LTG ambulation Description: PT - Patient will ambulate 300 feet with or without appropriate device with modified independence , supervision to improve functional mobility and safety. Outcome: Not Addressed Goal: PT- LTG stair climbing Description: PT - Patient will ascend and descend 7 stairs with reciprocal technique with 2 rails with supervision to improve functional mobility and safety. Outcome: Not Addressed Goal: PT- LTG mobility other Description: PT- Patient will be able to complete TUG in < 12 seconds with supervision/ modifiedindependence with or without appropriate device to decrease fall risk with functional mobility. Outcome: Not Addressed Problem: Impaired Strength Goal: PT- STG strengthening Description: PT - Patient will complete left hip knee ankle home strengthening exercise program independently in preparation for function. Outcome: Not Addressed Problem: Mobility - Impaired Goal: PT- LTG wheelchair management Description: PT - Patient will propel and manage wheelchair 150 feet on even and uneven surfaces with independence to improve functional mobility and safety. Outcome: Not Addressed * Plan of Care - Anisa Luther SLP - 01/16/2023 9:[address] [facility] Speech Language Pathology Notes Problem: Communication - Impaired Goal: ST- STG Expressive- verbal description Description: ST Expressive - Patient will describe object function, pictures, and tasks with 90% accuracy and minimal cues. Outcome: Not Addressed Goal: ST- STG Motor speech- speech intelligibility strategies Description: ST Motor Speech - Patient will use speech intelligibility strategies at conversation level with 90% accuracy and minimal cues. Outcome: Not Addressed Goal: ST- STG Voice- strengthening/breath support Description: ST Voice - Patient will perform breath support exercises for improved functional phonation with 90% accuracy and minimal cues. Outcome: Not Addressed Goal: ST- LTG Motor speech- speech intelligibility strategies Description: ST Motor Speech - Patient will use speech intelligibility strategies at conversation level with no cues. Outcome: Not Addressed Problem: Swallowing - Impaired Goal: ST- STG Oral Swallowing- oral motor function Description: ST Oral Swallowing - Patient will perform oral motor exercises to improve strength, coordination and function of oral musculature x 15 repetitions with minimal cues. Outcome: Not Addressed Goal: ST- STG Oral Swallowing- lingual strength Description: Patient will complete isometric lingual strengthening exercises x 15 repetitions with minimal cues. Outcome: Not Addressed Goal: ST- STG Swallow Strategies/Postures- safe swallowing strategies Description: ST Swallow Strategies/Postures - Patient will demonstrate use of safe swallowing strategies with minimal cues. Outcome: Not Addressed Goal: ST- STG Diet Tolerance- tolerate upgraded solids Description: ST - Diet Tolerance - Patient will tolerate upgrade of solid trials to NDD4 without overt or clinical signs or symptoms of aspiration via clinical assessment. Outcome: Not Addressed Goal: ST- LTG Swallow Strategies/Postures- safe swallowing strategies Description: ST Swallow Strategies/Postures - Patient will tolerate least restrictive diet with no overt signs/symptoms concerning for laryngeal penetration or aspiration or change in pulmonary status. Outcome: Not Addressed Problem: Cognition - Impaired Goal: ST- STG O-Log Description: ST O-Log - Patient will score a 25 or above on two separate administrations of the O-Log. Outcome: Not Addressed Goal: ST- STG Memory- memory strategies Description: ST Memory - Patient will complete memory tasks with the use of memory strategies with 90% accuracy and minimal cues. Outcome: Not Addressed Goal: ST- STG Problem Solving- verbal problem solving Description: ST Problem Solving - Patient will complete basic progressing to complex verbal problemsolving and tasks with 90% accuracy and minimal cues. Outcome: Not Addressed Goal: ST- STG Executive Function- sequencing/organization/planning Description: ST Executive Function - Patient will complete basic sequencing, organizing, and planning tasks with 90% accuracy and minimal cues. Outcome: Not Addressed Problem: Cognition - Impaired Goal: ST- LTG Executive Function- sequencing/organization/planning Description: ST Executive Function - Patient will demonstrate baseline cognitive linguistic abilities to aid in safe return to independence w/ADLs/iADLs and return to prior level of function. Outcome: Not Addressed * Plan of Care - Destin Christiansen OT - 01/16/2023 7:34 AM EST [facility] Occupational Therapy Notes Problem: Self-care Deficit Goal: OT- LTG feeding Description: OT - Patient will complete self-feeding with modified independence to improve self care function. Outcome: Not Met Goal: OT- LTG grooming Description: OT - Patient will complete grooming standing at the sink with modified independence toimprove self care function. Outcome: Not Met Goal: OT- LTG UB dressing Description: OT - Patient will complete UB/LB dressing, which would include gathering clothing fromcloset, with modified independence to improve self care function. Outcome: Not Met Goal: OT- LTG UB bathing Description: OT - Patient will complete UB/LB showering with modified independence to improve self care function. Outcome: Not Met Goal: OT- LTG home management Description: OT - Patient will tolerate at least 8-10 minutes of static standing to complete home management with modified independence to improve self care function. Outcome: Not Met Problem: Mobility - Impaired Goal: OT- LTG toilet transfer Description: OT - Patient will complete toileting and toilet transfer with modified independence inpreparation for ADL's. Outcome: Not Met Goal: OT- LTG tub transfer Description: OT - Patient will complete shower transfer with modified independence in preparation for ADL's. Outcome: Not Met Problem: Impaired Strength Goal: OT- LTG Strength Other Description: OT- Patient will tolerate at least 5-8 minutes of sustained UB AROM/ strengthening therapeutic exercises seated/standing to improve functional strength for safe DME management and ADL performance. Outcome: Not Met Problem: Cognition - Impaired Goal: OT- LTG sequencing Description: OT - Patient will sequence 3 or more step task with modified independence in preparation for ADL's. Outcome: Not Met Problem: Impaired Neurologic Function Goal: OT- LTG dynamic sitting balance Description: OT - Patient will complete sustained dynamic sitting balance activity for at least 15 minutes with modified independence in preparation for ADL's. Outcome: Not Met Goal: OT- LTG dynamic standing balance Description: OT - Patient will tolerate at least 8-10 minutes of sustained dynamic standing/functional mobility while engaged in ADL/therapeutic activities/exercises with modified independence in preparation for ADL's. Outcome: Not Met Goal: OT- LTG in-hand manipulation/coordination Description: OT - Patient will participate in various neuromuscular reeducation/therapeutic activity/exercises to improve bimanual coordination which would include reaction time and functional strength to improve efficiency with ADL performance as evidenced by at least making 10% improvement in hand function outcome measures. Outcome: Not Met documented in this [id number] Note* Plan of Care - Kassidy Pierre OT - 01/25/2023 1:27 PM EST [facility] Occupational Therapy Notes Problem: Self-care Deficit Goal: OT- LTG feeding Description: OT - Patient will complete self-feeding with modified independence to improve self care function. Outcome: Met Goal: OT- LTG grooming Description: OT - Patient will complete grooming standing at the sink with modified independence toimprove self care function. Outcome: Partially Met Note: Cues for L side scanning/attention, standing at sink with Mod Ind. Goal: OT- LTG UB dressing Description: OT - Patient will complete UB/LB dressing, which would include gathering clothing fromcloset, with modified independence to improve self care function. Outcome: Partially Met Note: Supervision/setup Goal: OT- LTG UB bathing Description: OT - Patient will complete UB/LB showering with modified independence to improve self care function. Outcome: Partially Met Note: Supervision/setup with minimal cues Goal: OT- LTG home management Description: OT - Patient will tolerate at least 8-10 minutes of static standing to complete home management with modified independence to improve self care function. Outcome: Not Addressed Note: Spouse and family will assist with all IADL's at home. Problem: Mobility - Impaired Goal: OT- LTG toilet transfer Description: OT - Patient will complete toileting and toilet transfer with modified independence inpreparation for ADL's. Outcome: Partially Met Note: SBA Goal: OT- LTG tub transfer Description: OT - Patient will complete shower transfer with modified independence in preparation for ADL's. Outcome: Partially Met Note: SBA Problem: Impaired Strength Goal: OT- LTG Strength Other Description: OT- Patient will tolerate at least 5-8 minutes of sustained UB AROM/ strengthening therapeutic exercises seated/standing to improve functional strength for safe DME management and ADL performance. Outcome: Met Problem: Cognition - Impaired Goal: OT- LTG sequencing Description: OT - Patient will sequence 3 or more step task with modified independence in preparation for ADL's. Outcome: Partially Met Note: Supervision Problem: Impaired Neurologic Function Goal: OT- LTG dynamic sitting balance Description: OT - Patient will complete sustained dynamic sitting balance activity for at least 15 minutes with modified independence in preparation for ADL's. Outcome: Met Goal: OT- LTG dynamic standing balance Description: OT - Patient will tolerate at least 8-10 minutes of sustained dynamic standing/functional mobility while engaged in ADL/therapeutic activities/exercises with modified independence in preparation for ADL's. Outcome: Partially Met Note: CGA-Min A for dynamic standing balance depending on task, standing for up to 9 minutes Goal: OT- LTG in-hand manipulation/coordination Description: OT - Patient will participate in various neuromuscular reeducation/therapeutic activity/exercises to improve bimanual coordination which would include reaction time and functional strength to improve efficiency with ADL performance as evidenced by at least making 10% improvement in hand function outcome measures. Outcome: Partially Met [id number] Note* Plan of Care - Anisa Luther SLP - 01/25/2023 1:[address] [facility] Speech Language Pathology Notes Problem: Communication - Impaired Goal: ST- STG Expressive- verbal description Description: ST Expressive - Patient will describe object function, pictures, and tasks with 90% accuracy and minimal cues. Outcome: Partially Met Note: Pt completed expressive language task via identifying letters in words with 90% accuracy independently. Pt benefited from larger print to increase accuracy. Pt able to read 50% of words in wordbank this date independently. Pt copied written message with 100% accuracy for letter identification and 75% accuracy for word identification. Pt noted with 3-4 word utterances. Pt reporting increased difficulty with word finding this date, however no anomia or circumlocution observed in unstructured conversation. Pt does benefit from increased processing time. Goal: ST- STG Motor speech- speech intelligibility strategies Description: ST Motor Speech - Patient will use speech intelligibility strategies at conversation level with 90% accuracy and minimal cues. Outcome: Partially Met Note: Reviewed SOS strategies this date. Pt noted with low intensity speech throughout session and benefited from mod verbal reminders to speak up. Pt endorsing naturally quiet at baseline, however voiced awareness of need to speak up. Pt remained 100% intelligible in unstructured conversation. Goal: ST- STG Voice- strengthening/breath support Description: ST Voice - Patient will perform breath support exercises for improved functional phonation with 90% accuracy and minimal cues. Outcome: Partially Met Note: Educated to use of diaphragmatic breathing vs clavicular breathing. Pt completed diaphragmatic breathing x7 with visual model and tactile cue of hands of diaphragm to feel expansion and contraction. Goal: ST- LTG Motor speech- speech intelligibility strategies Description: ST Motor Speech - Patient will use speech intelligibility strategies at conversation level with no cues. Outcome: Partially Met Problem: Swallowing - Impaired Goal: ST- STG Oral Swallowing- oral motor function Description: ST Oral Swallowing - Patient will perform oral motor exercises to improve strength, coordination and function of oral musculature x 15 repetitions with minimal cues. Outcome: Partially Met Note: Pt completed oral motor exercises via alternating smile/pucker x15 with visual model. Pt benefited from use of mirror for visual feedback. Goal: ST- STG Oral Swallowing- lingual strength Description: ST Swallowing - Patient will complete isometric lingual strengthening exercises x 15 repetitions with minimal cues. Outcome: Partially Met Note: Pt completed isometric lingual strengthening exercises to target lingual strengthening x15. Pt benefited from visual model and mod verbal cues for tongue placement. Goal: ST- STG Swallow Strategies/Postures- safe swallowing strategies Description: ST Swallow Strategies/Postures - Patient will demonstrate use of safe swallowing strategies with minimal cues. Outcome: Partially Met Note: Educated pt to use of lingual sweep following bites given continued pocketing on left. Pt verbalized understanding and demonstrated lingual sweep without bolus. Pt accepted po trials of thin liquids via large bore straw with no overt signs/symptoms concerning for laryngeal penetration or aspiration. Goal: ST- STG Diet Tolerance- tolerate upgraded solids Description: ST - Diet Tolerance - Patient will tolerate upgrade of solid trials to NDD4 without overt or clinical signs or symptoms of aspiration via clinical assessment. Outcome: Not Addressed Goal: ST- LTG Swallow Strategies/Postures- safe swallowing strategies Description: ST Swallow Strategies/Postures - Patient will tolerate least restrictive diet with no overt signs/symptoms concerning for laryngeal penetration or aspiration or change in pulmonary status. Outcome: Partially Met Problem: Cognition - Impaired Goal: ST- STG O-Log Description: ST O-Log - Patient will score a 25 or above on two separate administrations of the O-Log. Outcome: Partially Met Note: The Orientation Log (O-Log) is designed to be a quick quantitative measure of orientational status for use at bedside with rehabilitation inpatients. Place, time, and situational (Etiology/Event + Pathology/Deficits) domains are assessed. Patient responses are scored according to the following criteria: 3 = correct spontaneously or upon first free recall attempt; 2 = correct upon logical cueing (e.g., That was yesterday, so today must be ); 1 = correct upon multiple choice or phonemic cuing; and 0 = incorrect despite cueing, inappropriate response, or unable to respond. Patient [id number] this date with deficits in day of the week and date and benefited from logical cueing to incre ase accuracy. Goal: ST- STG Memory- memory strategies Description: ST Memory - Patient will complete memory tasks with the use of memory strategies with 90% accuracy and minimal cues. Outcome: Partially Met Note: Educated pt to use of WRAP-G memory strategies and use of a calendar to keep track of important doctors appointments following discharge, however pt report his will manage all of that. Goal: ST- STG Problem Solving- verbal problem solving Description: ST Problem Solving - Patient will complete basic progressing to complex verbal problemsolving and tasks with 90% accuracy and minimal cues. Outcome: Partially Met Note: Pt completed basic problem solving via identifying problems in pictures with 20% accuracy independently. Pt benefited from logical, semantic, and multiple choice cues to increase accuracy to 60%. Pt identified solutions for stated problems with 40% accuracy give mod I. Goal: ST- STG Executive Function- sequencing/organization/planning Description: ST Executive Function - Patient will complete basic sequencing, organizing, and planning tasks with 90% accuracy and minimal cues. Outcome: Partially Met Note: Pt completed sequencing, organizing, planning, and visual scanning task via word search with 90% accuracy with mod I. Pt benefited from logical cues to scan from left to right. Pt noted to [place] extra letters x2 and benefited from logical cues to cross words out from word bank. Pt additionally benefited from increased processing time and logical cues for start of word. Problem: Cognition - Impaired Goal: ST- LTG Executive Function- sequencing/organization/planning Description: ST Executive Function - Patient will demonstrate baseline cognitive linguistic abilities to aid in safe return to independence w/ADLs/iADLs and return to prior level of function. Outcome: Partially Met [id number]* Quick Note - Kiana Rodriguez RN - 01/25/2023 1:26 PM EST Patient discharged home with . [id number] Note* Plan of Care - Dorothy Quijano, PT - 01/25/2023 11:13 AM EST [facility] Physical Therapy Notes Problem: Mobility - Impaired Goal: PT- LTG bed mobility Description: PT - Patient will perform bed mobility with modified independence to improve functional mobility and safety. Outcome: Met Note: TN with or without HR. Pt with increased safety with HR Goal: PT- LTG sit to stand transfer Description: PT - Patient will perform sit to/from stand transfer with modified independence to improve functional mobility and safety. Outcome: Partially Met Note: SBA with RW Goal: PT- LTG stand-pivot transfer Description: PT - Patient will perform stand-pivot transfer with modified independence , supervision with or without appropriate device to improve functional mobility and safety. Outcome: Met Note: Pt is supervision with RW Goal: PT- LTG car transfer Description: PT - Patient will perform car transfer with modified independence , supervision to improve functional mobility and safety. Outcome: Met Note: SBA with RW and safety cues Goal: PT- LTG dynamic balance Description: PT - Patient will improve MARSHALL score from 31/56 to >45/56 to improve functional mobility and safety and decrease fall risk. Outcome: Partially Met Goal: PT- LTG ambulation Description: PT - Patient will ambulate 300 feet with or without appropriate device with modified independence , supervision to improve functional mobility and safety. Outcome: Met Note: Pt can walk up to 300 ft with RW on multiple surfaces Goal: PT- LTG stair climbing Description: PT - Patient will ascend and descend 7 stairs with reciprocal technique with 2 rails with supervision to improve functional mobility and safety. Outcome: Met Note: 12 with 2 HR and SBA Goal: PT- LTG mobility other Description: PT- Patient will be able to complete TUG in < 12 seconds with supervision/ modifiedindependence with or without appropriate device to decrease fall risk with functional mobility. Outcome: Met Problem: Impaired Strength Goal: PT- STG strengthening Description: PT - Patient will complete left hip knee ankle home strengthening exercise program independently in preparation for function. Outcome: Met Note: Pt can perform indp in seated for LE HEP Problem: Mobility - Impaired Goal: PT- LTG wheelchair management Description: PT - Patient will propel and manage wheelchair 150 feet on even and uneven surfaces with independence to improve functional mobility and safety. Outcome: Met [id number] Note* Plan of Care - Kiana Rodriguez RN - 01/25/2023 10:28 AM EST [facility] Nurse Notes Problem: Actual or potential alteration in health Goal: Absence of healthcare acquired conditions Outcome: Completed Goal: Knowledge of Interdisciplinary Plan of Care Outcome: Completed Goal: Knowledge of Enviroment Outcome: Completed Problem: Pressure Ulcer - Risk of Goal: Absence of pressure ulcer Outcome: Completed Problem: Pain Goal: Manage acute pain Outcome: Completed Goal: Manage chronic pain Outcome: Completed Goal: Reduced pain sensation Outcome: Completed Goal: Achievement of comfort function goal Outcome: Completed Problem: Falls, Risk of Goal: Absence of falls Outcome: Completed No falls to date. Fall precautions implemented and maintained. [place] [id number] History of Present illness Narrative* Katie Cuellar RN - 01/25/2023 10:22 AM EST Care Management Progress Note Date: 01/25/2023 Time: 10:23 AM Patient Name: Kevin White Date of : 1940 Discharge Plan: D/C Disposition: Home Agency/Destination: [facility] [place] Out-Patient Rehabilitation Post-Acute Patient Choice 1: OP therapy - [facility] How did you provide the Post Acute Choices: (verbal discussion) Options Reviewed: Possible expense, Explained services/benefits Reason for Choice: Patient/Family preference Regulatory Documentation: Medicare IM (copy of letter given) Regulatory Documentation Status: Certified Discharging Transportation Plan: Transportation Type: Auto () Discharge Plan Status: complete Plan for pt to dc to home today with his . Pt has attended therapy sessions with pt for family training/teaching. Recommendations for continued skilled services/ therapies & home going HME discussed with pt , referrals have been madeas discussed & recommended HME will be provided at [place] ( or delivered if applicable ). Follow up appointments ( including referral if applicable) scheduled for pt. Spoke with pt about need for a new PCP has his previous provider office had closed. Pt is agreeableto becoming established at a new office. Will make appointment as discussed No other needs identified, case will close at [place]. * Dorothy Quijano, PT - 01/25/2023 10:15 AM EST Inpatient Rehab Physical Therapy Discharge Summary PT Time Calculation: Start time: 1014 Stop time: 1114 Time calculation: 60 PT Individual Minutes: 60 min Discharge Destination: home with Date of Discharge: 01-25-23 Marshall Balance Index Sit to Stand: Able to stand without using hands and stabilize independently Standing Unsupported: Able to stand safely for 2 minutes Sitting Unsupported But Feet Supported on Floor or Stool: Able to sit safely and securely for 2 minutes Standing to Sitting: Sits safely with minimal use of hands Transfers: Able to transfer safely with minor use of hands Standing Unsupported With Eyes Closed: Able to stand 10 seconds with supervision Standing Unsupported With Feet Together: Able to place feet together independently and stand 1 minute with supervision Reaching Forward with Outstretched Arms while Standing: Can reach forward 5 inches Forensic Nurse Object From The Floor From a Standing Position: Able to mushroom picker object but needs supervision Turning to Look Behind Over Left and Right Shoulders While Standing: Looks behind from both sides and weight shifts well Turn 360 Degrees: Needs close supervision or verbal cuing Place Alternate Foot on Step or Stool While Standing Unsupported: Able to complete greater than 2 steps needs minimal assist Standing Unsupported One Foot Infront: Needs help to step but can hold 15 seconds Standing on One Leg: Tries to lift leg unable to hold 3 seconds but remaints standing independently Marshall Balance Scale Score: 40 Out of a Possible 56 Sit Stand Walk Up Go Timed Up and Go: 14 Seconds (with RW and SBA) Therapy Precautions Orthotic Devices: No Weight Bearing Status: WFL General Rehab Precautions: Fall risk (aspiration precautions) Balance Sitting Balance - Static: Modified independent Sitting Balance - Dynamic: Modified independent Standing Balance - Static: Modified independent Documentation Nurse - Standing Static: wheeled walker Standing Balance - Dynamic: Supervision Documentation Nurse - Standing Dynamic: wheeled walker Skilled Intervention: maker up folding object: SBA with maintenance groundman and 1 UE support on RW. Bed Mobility Rolling: Modified independent, Head of bed flat Supine to Sit: Modified independent, Head of bed flat Sit to Supine: Modified independent, Head of bed flat Documentation Nurse: (none) Skilled Intervention Provided: monitoring patient response with activity For: LE management, LE positioning, energy conservation Resulting in: improved activity tolerance, improved balance, improved functional independence, improved performance Transfers Transfers Sit to Stand: Supervision Bed to Chair: Supervision Stand Pivot Transfers: Supervision Documentation Nurse: wheeled walker Skilled Intervention Provided: verbal cues, facilitation, graded task by elevating height of sitting surface For: LE management, LE positioning, controlled descent Resulting in: improved activity tolerance, improved balance, improved safety, improved functional independence Skilled Intervention: safety cues to not pull up on walker Functional Transfers Car Transfers: Supervision Documentation Nurse: wheeled walker Skilled Intervention Provided: verbal cues, facilitation, graded task by elevating height of sitting surface For: LE management, LE positioning, controlled descent Resulting in: improved activity tolerance, improved balance, improved functional independence, improved safety, improved performance Gait/Locomotion Gait Assistance: Stand by assist Assistive Device: wheeled walker Distance: 250 Feet (on even surfaces with 2 turns, 10 ft over carpeting, another 150 ft with with 2turns.) Rest Breaks: Yes Rest Break Position: seated Rest Break Duration: 3 minutes Additional Gait Trial 2: Yes Gait Assistance Trial 2: Stand by assist, Contact guard assist Assistive Device Trial 2: (none) Distance Trial 2: 175 (x 2) Rest Breaks Trial 2: Yes Rest Break Position Trial 2: seated Rest Break Duration Trial 2: 4 minutes Pattern: step through, R impaired heel strike, L impaired heel strike, R decreased step length, L decreased step length, narrow base of support, over reliance on upper extremities, forward flexed, shuffle Gait Loss(es) of Balance: intermittent, with dual tasks or distractions Stair Management Technique: two rails, step-to pattern, alternating pattern Stair Management Assistance: Stand by assist Number of Stairs: 12 (6 inch) Wheelchair Mobility: (NT due to pt ambulatory) Skilled Intervention Provided: verbal cues, monitoring patient response with activity For: attention to task, device management and safe use of device, gait technique, improved posture Resulting in: improved activity tolerance, improved functional independence, increased insight intodeficits Exercise Seated Exercises: x 20 reps for bilat LEs exercises with review of HEP. pt can perform INPD. Skilled Intervention Provided: instruction on proper technique/alignment, written instructions/handout provided and reviewed, monitoring patient response with exercise For: achieving full ROM as tolerated, fall prevention, frequency of exercise(s) Resulting in: efficient movement, improved attention, improved awareness Home Living Obtained Home Living and PLOF info from: Patient, Review of patient s medical record Unable to obtain Home Living and PLOF info on initial eval: Patient is a questionable historian Lives With: Spouse, Son (son works 5 days a week and is unable to assist pt when working. pt reports in good health and can assist pt with needs after discharge.) Type of Home: House Home Layout: One level, Full bath on main level, Bed on main level, Stairs between floors, Work area in basement (laundry on main. house has basement and 1st floor. 1/2 bath in basement) Rails on inside stairs: 2 rails Number of stairs inside home: 7 Steps to enter home: Yes Rails to enter home: 2 rails Number of stairs to enter home: 5 Bathroom Shower/Tub: Walk-in shower, Main level Bathroom Toilet: Standard Bathroom Equipment: Grab bars in shower, Shower chair, Hand-held showerhead, Grab bars around toilet Bathroom Accessibility: Accessible via walker Mobility Equipment: Wheeled walker Additional Objective Details - Home Living: Pt reports that he likes to make lots of things in the basement ( model cars/trucks/semi's). Pt with expressive aphasia. Pt inconsistant with responses provided during PT evaluation versus previous consult. Pt is questionable historian. Prior Level of Function Receives Help From: Family ( and son ( son assists when not at work, as needed).) Level of Bishop - Transfers/Ambulation/Mobility: Independent with functional transfers, Independent with household ambulation, Independent with community ambulation (no device utilized) Level of Bishop - ADLs: Independent Level of Bishop - Homemaking: Independent Driving: Patient drives Vocational: Retired Leisure: Patient enjoys word Badge, [employer], and is a consistent churchgoer. Goals: Problem: Mobility - Impaired Goal: PT- LTG bed mobility Description: PT - Patient will perform bed mobility with modified independence to improve functional mobility and safety. Outcome: Met Note: TN with or without HR. Pt with increased safety with HR Goal: PT- LTG sit to stand transfer Description: PT - Patient will perform sit to/from stand transfer with modified independence to improve functional mobility and safety. Outcome: Partially Met Note: SBA with RW Goal: PT- LTG stand-pivot transfer Description: PT - Patient will perform stand-pivot transfer with modified independence , supervision with or without appropriate device to improve functional mobility and safety. Outcome: Met Note: Pt is supervision with RW Goal: PT- LTG car transfer Description: PT - Patient will perform car transfer with modified independence , supervision to improve functional mobility and safety. Outcome: Met Note: SBA with RW and safety cues Goal: PT- LTG dynamic balance Description: PT - Patient will improve MARSHALL score from 31/56 to >45/56 to improve functional mobility and safety and decrease fall risk. Outcome: Partially Met pt scored 40/56 Goal: PT- LTG ambulation Description: PT - Patient will ambulate 300 feet with or without appropriate device with modified independence , supervision to improve functional mobility and safety. Outcome: Met Note: Pt can walk up to 300 ft with RW on multiple surfaces Goal: PT- LTG stair climbing Description: PT - Patient will ascend and descend 7 stairs with reciprocal technique with 2 rails with supervision to improve functional mobility and safety. Outcome: Met Note: 12 with 2 HR and SBA Goal: PT- LTG mobility other Description: PT- Patient will be able to complete TUG in < 12 seconds with supervision/ modifiedindependence with or without appropriate device to decrease fall risk with functional mobility. Outcome: Partially met pt scored 14 sec with RW and Supervision Problem: Impaired Strength Goal: PT- STG strengthening Description: PT - Patient will complete left hip knee ankle home strengthening exercise program independently in preparation for function. Outcome: Met Note: Pt can perform indp in seated for LE HEP Problem: Mobility - Impaired Goal: PT- LTG wheelchair management Description: PT - Patient will propel and manage wheelchair 150 feet on even and uneven surfaces with independence to improve functional mobility and safety. Outcome: Met Pt progressed well towards all goals and met or partially met them with increasing independence in all areas of mobility. Pt will need to use RW as main mode of mobility. He will need at least supervision for all mobility especially stairs. Pt's caregiver has been in for training for transfers, gait and stairs, and was able to state and provide cues independently. Recommend 24 hour assist available and continued PT to continue to work on strengthening and balance for home and community mobility. Skilled Therapy Needs After Discharge Are Skilled Therapy Services Needed After Discharge: Yes Intensity of Skilled Therapy: 2-3 days per week DME Recommendation: Wheeled Walker (bed transfer assist bar) DME Rationale: Patient's condition prevents him/her from accomplishing ADL without recommended equipment, Patient's condition creates an increased risk of safety hazard without recommended equipment,Unreasonable time frame to complete ADL without recommended equipment, Patient will require increased level of care without recommended equipment Rehab Potential: Good I have collaborated with the CREATIVE INTERN regarding the patient s progess towards goals and response to treatment. Pt then developed the required changes to the POC and determined justification or continuation of therapy. For complete objective data, detailed plan of care and patient education refer to: PT EVALUATION flow sheet, PT TREATMENT flow sheet, patient Plan of Care, Plan of Care progress note, and Patient Education. Handoff given to primary RN. Exit Protocol Followed: Yes * Anisa Luther SLP - 01/25/2023 9:16 AM EST Inpatient Rehab Speech Pathology Daily Note [facility] [employer] Time Calculation: Start time: 915 Stop time: 1015 Time calculation: 60 [employer] [employer] Individual Minutes: 60 min Recommendations: Recommendations PO Recommendations: NDD diet NDD diet recommendation: Chopped/ NDD3, chopped meats, Thin liquids Barriers Returning to Prior Level of Function: Body Structure and Function: Neurologic impairment Explain Impairments: R MCA CVA Activities and Participation: Communication limitation, Swallowing limitation, Executive function limitation Explain Limitations: dysarthria, dysphagia, cognitive deficits Environmental Factors: Home situation, Family/caregiver support Explain Environmental Factors: lives at home with spouse Skilled Therapy Needs: Skilled Therapy Needs: Are Skilled Therapy Services Needed After Discharge: Yes Functional Limitations: communication deficits, decreased sequencing, decreased problem solving, impaired memory, decreased attention, dysphagia Intensity of Skilled Therapy: 2-3 days per week Anticipated Duration of Skilled Therapy: Duration 10 - 30 days Subjective Pt participated in skilled speech and cognitive tx this date (60 min). Pt was seen sitting upright in wheelchair in the speech office, pt was cooperative and pleasant throughout session, no family/friends present Objective Please see Plan of Care for current status of patient goals 1. ST Expressive - Patient will describe object function, pictures, and tasks with 90% accuracy andminimal cues 2. ST Motor Speech - Patient will use speech intelligibility strategies at conversation level with 90% accuracy and minimal cues. 3. ST Voice - Patient will perform breath support exercises for improved functional phonation with 90% accuracy and minimal cues 4. ST Oral Swallowing - Patient will perform oral motor exercises to improve strength, coordinationand function of oral musculature x 15 repetitions with minimal cues. 5. ST Swallowing - Patient will complete isometric lingual strengthening exercises x 15 repetitionswith minimal cues. 6. ST Swallow Strategies/Postures - Patient will demonstrate use of safe swallowing strategies withminimal cues. 7. ST - Diet Tolerance - Patient will tolerate upgrade of solid trials to NDD4 without overt or clinical signs or symptoms of aspiration via clinical assessment. 8. ST O-Log - Patient will score a 25 or above on two separate administrations of the O-Log. 9. ST Memory - Patient will complete memory tasks with the use of memory strategies with 90% accuracy and minimal cues. 10. ST Problem Solving - Patient will complete basic progressing to complex verbal problem solving and tasks with 90% accuracy and minimal cues. 11. ST Executive Function - Patient will complete basic sequencing, organizing, and planning tasks with 90% accuracy and minimal cues. Assessment 1. Pt completed expressive language task via identifying letters in words with 90% accuracy independently. Pt benefited from larger print to increase accuracy. Pt able to read 50% of words in word bank this date independently. Pt copied written message with 100% accuracy for letter identification and 75% accuracy for word identification. Pt noted with 3-4 word utterances. Pt reporting increased difficulty with word finding this date, however no anomia or circumlocution observed in unstructured conversation. Pt does benefit from increased processing time. 2. Reviewed SOS strategies this date. Pt noted with low intensity speech throughout session and benefited from mod verbal reminders to speak up. Pt endorsing naturally quiet at baseline, however voiced awareness of need to speak up. Pt remained 100% intelligible in unstructured conversation. 3. Educated to use of diaphragmatic breathing vs clavicular breathing. Pt completed diaphragmatic breathing x7 with visual model and tactile cue of hands of diaphragm to feel expansion and contraction. 4. Pt completed oral motor exercises via alternating smile/pucker x15 with visual model. Pt benefited from use of mirror for visual feedback. 5. Pt completed isometric lingual strengthening exercises to target lingual strengthening x15. Pt benefited from visual model and mod verbal cues for tongue placement. 6. Educated pt to use of lingual sweep following bites given continued pocketing on left. Pt verbalized understanding and demonstrated lingual sweep without bolus. Pt accepted po trials of thin liquids via large bore straw with no overt signs/symptoms concerning for laryngeal penetration or aspiration. 8. The Orientation Log (O-Log) is designed to be a quick quantitative measure of orientational status for use at bedside with rehabilitation inpatients. Place, time, and situational (Etiology/Event +Pathology/Deficits) domains are assessed. Patient responses are scored according to the following criteria: 3 = correct spontaneously or upon first free recall attempt; 2 = correct upon logical cueing (e.g., That was yesterday, so today must be ); 1 = correct upon multiple choice or phonemic cuing; and 0 = incorrect despite cueing, inappropriate response, or unable to respond. Patient scored / this date with deficits in day of the week and date and benefited from logical cueing to increase accuracy. 9. Educated pt to use of WRAP-G memory strategies and use of a calendar to keep track of important doctors appointments following discharge, however pt report his will manage all of that. 11. Pt completed sequencing, organizing, planning, and visual scanning task via word search with 90% accuracy with mod I. Pt benefited from logical cues to scan from left to right. Pt noted to circleextra letters x2 and benefited from logical cues to cross words out from word bank. Pt additionallybenefited from increased processing time and logical cues for start of word. Plan Continue per POC Handoff given to primary RN. [facility]ESSIONAL Visit [facility] Visit Date: 01/25/23 Exit Protocol Followed: Yes Anisa Luther M.Ed [facility] * Anisa Luther SLP - 01/25/2023 9:16 AM EST Inpatient Rehab Speech Language Pathology Discharge Summary Discharge Destination: home Date of Discharge: 01/25/2023 functional skills tutor Goals: Problem: Communication - Impaired Goal: ST- STG Expressive- verbal description Description: ST Expressive - Patient will describe object function, pictures, and tasks with 90% accuracy and minimal cues. Outcome: Partially Met Note: Pt completed expressive language task via identifying letters in words with 90% accuracy independently. Pt benefited from larger print to increase accuracy. Pt able to read 50% of words in wordbank this date independently. Pt copied written message with 100% accuracy for letter identification and 75% accuracy for word identification. Pt noted with 3-4 word utterances. Pt reporting increased difficulty with word finding this date, however no anomia or circumlocution observed in unstructured conversation. Pt does benefit from increased processing time. Goal: ST- STG Motor speech- speech intelligibility strategies Description: ST Motor Speech - Patient will use speech intelligibility strategies at conversation level with 90% accuracy and minimal cues. Outcome: Partially Met Note: Reviewed SOS strategies this date. Pt noted with low intensity speech throughout session and benefited from mod verbal reminders to speak up. Pt endorsing naturally quiet at baseline, however voiced awareness of need to speak up. Pt remained 100% intelligible in unstructured conversation. Goal: ST- STG Voice- strengthening/breath support Description: ST Voice - Patient will perform breath support exercises for improved functional phonation with 90% accuracy and minimal cues. Outcome: Partially Met Note: Educated to use of diaphragmatic breathing vs clavicular breathing. Pt completed diaphragmatic breathing x7 with visual model and tactile cue of hands of diaphragm to feel expansion and contraction. Goal: ST- LTG Motor speech- speech intelligibility strategies Description: ST Motor Speech - Patient will use speech intelligibility strategies at conversation level with no cues. Outcome: Partially Met Problem: Swallowing - Impaired Goal: ST- STG Oral Swallowing- oral motor function Description: ST Oral Swallowing - Patient will perform oral motor exercises to improve strength, coordination and function of oral musculature x 15 repetitions with minimal cues. Outcome: Partially Met Note: Pt completed oral motor exercises via alternating smile/pucker x15 with visual model. Pt benefited from use of mirror for visual feedback. Goal: ST- STG Oral Swallowing- lingual strength Description: ST Swallowing - Patient will complete isometric lingual strengthening exercises x 15 repetitions with minimal cues. Outcome: Partially Met Note: Pt completed isometric lingual strengthening exercises to target lingual strengthening x15. Pt benefited from visual model and mod verbal cues for tongue placement. Goal: ST- STG Swallow Strategies/Postures- safe swallowing strategies Description: ST Swallow Strategies/Postures - Patient will demonstrate use of safe swallowing strategies with minimal cues. Outcome: Partially Met Note: Educated pt to use of lingual sweep following bites given continued pocketing on left. Pt verbalized understanding and demonstrated lingual sweep without bolus. Pt accepted po trials of thin liquids via large bore straw with no overt signs/symptoms concerning for laryngeal penetration or aspiration. Goal: ST- STG Diet Tolerance- tolerate upgraded solids Description: ST - Diet Tolerance - Patient will tolerate upgrade of solid trials to NDD4 without overt or clinical signs or symptoms of aspiration via clinical assessment. Outcome: Not Addressed Goal: ST- LTG Swallow Strategies/Postures- safe swallowing strategies Description: ST Swallow Strategies/Postures - Patient will tolerate least restrictive diet with no overt signs/symptoms concerning for laryngeal penetration or aspiration or change in pulmonary status. Outcome: Partially Met Problem: Cognition - Impaired Goal: ST- STG O-Log Description: ST O-Log - Patient will score a 25 or above on two separate administrations of the O-Log. Outcome: Partially Met Note: The Orientation Log (O-Log) is designed to be a quick quantitative measure of orientational status for use at bedside with rehabilitation inpatients. Place, time, and situational (Etiology/Event + Pathology/Deficits) domains are assessed. Patient responses are scored according to the following criteria: 3 = correct spontaneously or upon first free recall attempt; 2 = correct upon logical cueing (e.g., That was yesterday, so today must be ); 1 = correct upon multiple choice or phonemic cuing; and 0 = incorrect despite cueing, inappropriate response, or unable to respond. Patient [id number]/30 this date with deficits in day of the week and date and benefited from logical cueing to incre ase accuracy. Goal: ST- STG Memory- memory strategies Description: ST Memory - Patient will complete memory tasks with the use of memory strategies with 90% accuracy and minimal cues. Outcome: Partially Met Note: Educated pt to use of WRAP-G memory strategies and use of a calendar to keep track of important doctors appointments following discharge, however pt report his will manage all of that. Goal: ST- STG Problem Solving- verbal problem solving Description: ST Problem Solving - Patient will complete basic progressing to complex verbal problemsolving and tasks with 90% accuracy and minimal cues. Outcome: Partially Met Note: Pt completed basic problem solving via identifying problems in pictures with 20% accuracy independently. Pt benefited from logical, semantic, and multiple choice cues to increase accuracy to 60%. Pt identified solutions for stated problems with 40% accuracy give mod I. Goal: ST- STG Executive Function- sequencing/organization/planning Description: ST Executive Function - Patient will complete basic sequencing, organizing, and planning tasks with 90% accuracy and minimal cues. Outcome: Partially Met Note: Pt completed sequencing, organizing, planning, and visual scanning task via word search with 90% accuracy with mod I. Pt benefited from logical cues to scan from left to right. Pt noted to [place] extra letters x2 and benefited from logical cues to cross words out from word bank. Pt additionally benefited from increased processing time and logical cues for start of word. Problem: Cognition - Impaired Goal: ST- LTG Executive Function- sequencing/organization/planning Description: ST Executive Function - Patient will demonstrate baseline cognitive linguistic abilities to aid in safe return to independence w/ADLs/iADLs and return to prior level of function. Outcome: Partially Met Note: Pt admitted to [facility] s/p CVA. Pt participated in skilled speech, cognitive, dysphagia, and voice tx throughout admission. At DC, pt presents w/expressive aphasia, dysphagia, and cognitive deficits. At [place], rx intermittent supervision, max and total assist w/meds/finances, refrain from driving, and continuation of skilled speech, cognitive, and dysphagia therapy to address ongoing deficits via [facility] oroutpatient services. QI CARE Score - Eatin CARE Score - Oral Hygiene: 4 Past Medical History: Diagnosis Date Arthritis Back pain CHF (congestive heart failure) (HCC) COPD (chronic obstructive pulmonary disease) (HCC) Coronary artery disease Diabetes mellitus (HCC) Diabetes mellitus, type 2 (HCC) Disease of thyroid gland GERD (gastroesophageal reflux disease) Hernia of abdominal wall Hyperlipidemia Hypertension Myocardial infarction (HCC) Sleep apnea, obstructive refuses to use c-pap Stroke (HCC) Past Surgical History: Procedure Laterality Date CABG AVR W/ MAZE Bilateral 08/12/2021 Procedure: CORONARY ARTERY BYPASS GRAFT TIMES THREE (krueger-lad, svg-d1, svg- drca)WITH ENDOVEIN HARVEST, Aortic valve replacement (27mm Paul Inspiris), full LA MAZE ([employer] RFA box, RFA HEATHER, cryoRA caval and RAA line), LEFT ATRIAL APPENDAGE LIGATION (40mm AtriCLIP), TRANSESOPHAGEAL ECHOCARDIOGRAM; Surgeon: Luis Beasley MD; Location: [facility]; Service: Cardiothoracic CARDIAC CATHETERIZATION CARDIAC CATHETERIZATION Bilateral 07/01/2021 No intervention, right radial CARDIAC CATHETERIZATION N/A 07/01/2021 Procedure: Coronary Angiogram; Surgeon: Shmuel Villalpando MD; Location: [facility]; Service: Cardiovascular CARDIAC CATHETERIZATION N/A 07/01/2021 Procedure: Right Heart Cath; Surgeon: Shmuel Villalpando MD; Location: [facility]; Service: Cardiovascular CARDIAC CATHETERIZATION N/A 07/01/2021 Procedure: Left Ventriculogram; Surgeon: Shmuel Villalpando MD; Location: [facility]; Service: Cardiovascular CARDIAC CATHETERIZATION N/A 07/01/2021 Procedure: Left Heart Cath; Surgeon: Shmuel Villalpando MD; Location: [facility]; Service: Cardiovascular cataracts removed Bilateral CORONARY STENT PLACEMENT EP - INTERVENTION N/A 08/24/2021 Procedure: Cardioversion/CTA; Surgeon: Abhishek Lauren MD; Location: [facility] EP LAB; Service: Cardiovascular HERNIA REPAIR W/HYDROCELE Right For complete objective data, detailed plan of care, and education refer to: Speech Comm/COG flow sheets, Bedside Study Evaluation flow sheets, [facility] Navigator, as well as patient Plan of Care and Education documentation. * Kassidy Pierre OT - 01/25/2023 7:05 AM EST IP REHAB OCCUPATIONAL THERAPY DISCHARGE SUMMARY OT Time Calculation: Start time: 7:05 Stop time: 7:50 Time calculation: 45 OT Individual Minutes: 45 min Discharge Destination: home with spouse Date of Discharge: 01/25/23 Skilled Therapy Needs After Discharge Are Skilled Therapy Services Needed After Discharge: Yes Intensity of Skilled Therapy: 2-3 days per week Anticipated Duration of Skilled Therapy: Duration 10 - 30 days DME Recommendation: (already has AE at home) Rehab Potential: Good Therapy Precautions Orthotic Devices: No Weight Bearing Status: WFL General Rehab Precautions: Fall risk (aspiration precautions) Cognition Overall Cognitive Status: Impaired Arousal/Alertness: Delayed responses to stimuli Orientation Level: Oriented X4 Executive functioning: Insight, Min impairment Safety Judgment: Decreased awareness of need for safety, Decreased awareness of need for assistance Problem Solving: Assistance required to identify errors made Attention: Attends to quiet environment Hearing Status: Hard of hearing Social Interaction: Expressive deficit, Cooperative ADL Feeding: Modified independent Grooming: Supervision (standing) Grooming - Skilled Intervention Provided: monitored patient's safety and tolerance Grooming - For: fall prevention, visual scanning Grooming - Resulting In: improved functional independence, improved initiation Upper Body Bathing: Stand by assist, Use of adaptive equipment (seated) Upper Body Bathing - Skilled Intervention Provided: monitored patient's safety & tolerance, verbal cues Upper Body Bathing - For: efficient movement, safe bathing techniques Upper Body Bathing - Resulting In: improved functional independence Lower Body Bathing: Stand by assist, Use of adaptive equipment (seated) Lower Body Bathing - Skilled Intervention Provided: monitored patient's safety & tolerance, verbal cues Lower Body Bathing - For: efficient movement, safe bathing techniques Lower Body Bathing - Resulting In: improved functional independence Upper Body Dressing: Set-up Upper Body Dressing - Skilled Intervention Provided: monitored patient's safety & tolerance Upper Body Dressing - For: efficient movement Upper Body Dressing - Resulting In: improved functional independence Lower Body Dressing: Stand by assist Lower Body Dressing - Skilled Intervention Provided: monitored patient's safety & tolerance Lower Body Dressing - For: fall prevention Lower Body Dressing - Resulting In: improved functional independence Toileting: Stand by assist Toileting - Skilled Intervention Provided: monitored patient's safety and tolerance Toileting - For: fall prevention Toileting - Resulting In: improved functional independence Functional Mobility: Stand by assist (no AD) Functional Mobility - Skilled Intervention Provided: monitoring patient response with activity Functional Mobility - For: fall prevention, safety during functional task(s), increased participation in mobility task, initiation of task Functional Mobility - Resulting In: improved performance, improved balance, improved functional independence Footwear: Setup for socks and shoes Skilled Intervention: Pt participated in ADL's for OT session. Cues for L side attention, task initiation/sequencing, safety, and attention during all ADL's. Increased time for bathing while seated. Pt stood at toilet for toileting. Pt was able to perform figure 4 technique for LB dressing/footwear. No assist to tie shoelaces. Standing at sink for oral hygiene and shaving. Pt performed functionalmobility without an AD in room, no LOB. No c/o pain. Bed Mobility Supine to Sit: Supervision Documentation Nurse: bedrails Skilled Intervention Provided: monitoring patient response with activity For: efficient movement Resulting In: improved functional independence Functional Transfers Sit to Stand: Stand by assist Bed to Chair Transfers: Stand by assist Toilet Transfers: Stand by assist, to/from toilet Shower Transfers: Stand by assist, Grab bars, Adaptive equipment Documentation Nurse: (none) Skilled Intervention Provided: monitoring patient response with activity, verbal cues For: fall prevention, safety during functional task(s) Resulting In: improved performance, improved balance, improved activity tolerance Skilled Intervention: SBA for cues/safety. Interventions Education on DC recommendations. Home Living Obtained Home Living and PLOF info from: Patient, Review of patient s medical record Unable to obtain Home Living and PLOF info on initial eval: Patient is a questionable historian Lives With: Spouse, Son (son works 5 days a week and is unable to assist pt when working. pt reports in good health and can assist pt with needs after discharge.) Type of Home: House Home Layout: One level, Full bath on main level, Bed on main level, Stairs between floors, Work area in basement (laundry on main. house has basement and 1st floor. 1/2 bath in basement) Rails on inside stairs: 2 rails Number of stairs inside home: 7 Steps to enter home: Yes Rails to enter home: 2 rails Number of stairs to enter home: 5 Bathroom Shower/Tub: Walk-in shower, Main level Bathroom Toilet: Standard Bathroom Equipment: Grab bars in shower, Shower chair, Hand-held showerhead, Grab bars around toilet Bathroom Accessibility: Accessible via walker Mobility Equipment: Wheeled walker Additional Objective Details - Home Living: Pt reports that he likes to make lots of things in the basement ( model cars/trucks/semi's). Pt with expressive aphasia. Pt inconsistant with responses provided during PT evaluation versus previous consult. Pt is questionable historian. Prior Level of Function Receives Help From: Family ( and son ( son assists when not at work, as needed).) Level of Bishop - Transfers/Ambulation/Mobility: Independent with functional transfers, Independent with household ambulation, Independent with community ambulation (no device utilized) Level of Bishop - ADLs: Independent Level of Bishop - Homemaking: Independent Driving: Patient drives Vocational: Retired Leisure: Patient enjoys word searches, [employer], and is a consistent churchgoer. LTGs: Problem: Self-care Deficit Goal: OT- LTG feeding Description: OT - Patient will complete self-feeding with modified independence to improve self care function. Outcome: Met Goal: OT- LTG grooming Description: OT - Patient will complete grooming standing at the sink with modified independence toimprove self care function. Outcome: Partially Met Note: Cues for L side scanning/attention, standing at sink with Mod Ind. Goal: OT- LTG UB dressing Description: OT - Patient will complete UB/LB dressing, which would include gathering clothing fromcloset, with modified independence to improve self care function. Outcome: Partially Met Note: Supervision/setup Goal: OT- LTG UB bathing Description: OT - Patient will complete UB/LB showering with modified independence to improve self care function. Outcome: Partially Met Note: Supervision/setup with minimal cues Goal: OT- LTG home management Description: OT - Patient will tolerate at least 8-10 minutes of static standing to complete home management with modified independence to improve self care function. Outcome: Not Addressed Note: Spouse and family will assist with all IADL's at home. Problem: Mobility - Impaired Goal: OT- LTG toilet transfer Description: OT - Patient will complete toileting and toilet transfer with modified independence inpreparation for ADL's. Outcome: Partially Met Note: SBA Goal: OT- LTG tub transfer Description: OT - Patient will complete shower transfer with modified independence in preparation for ADL's. Outcome: Partially Met Note: SBA Problem: Impaired Strength Goal: OT- LTG Strength Other Description: OT- Patient will tolerate at least 5-8 minutes of sustained UB AROM/ strengthening therapeutic exercises seated/standing to improve functional strength for safe DME management and ADL performance. Outcome: Met Problem: Cognition - Impaired Goal: OT- LTG sequencing Description: OT - Patient will sequence 3 or more step task with modified independence in preparation for ADL's. Outcome: Partially Met Note: Supervision Problem: Impaired Neurologic Function Goal: OT- LTG dynamic sitting balance Description: OT - Patient will complete sustained dynamic sitting balance activity for at least 15 minutes with modified independence in preparation for ADL's. Outcome: Met Goal: OT- LTG dynamic standing balance Description: OT - Patient will tolerate at least 8-10 minutes of sustained dynamic standing/functional mobility while engaged in ADL/therapeutic activities/exercises with modified independence in preparation for ADL's. Outcome: Partially Met Note: CGA-Min A for dynamic standing balance depending on task, standing for up to 9 minutes Goal: OT- LTG in-hand manipulation/coordination Description: OT - Patient will participate in various neuromuscular reeducation/therapeutic activity/exercises to improve bimanual coordination which would include reaction time and functional strength to improve efficiency with ADL performance as evidenced by at least making 10% improvement in hand function outcome measures. Outcome: Partially Met Summary: Pt has demo'ed good progress towards all OT goals. Pt is at SBA level for all ADL's and functional mobility/transfers. Pt has been educated regarding HEP, AE, safety, fall prevention, and returning to driving. Family were not present for family education. Recommend 24/7 supervision upon D/C to home. Pt will continue with C or OP therapy 2-3x/week. Discharge recommendations: Recommend 24/7 supervision upon D/C to home initially. Supervision levelassistance for ADLs, IADLs, and functional mobility. No driving. Continue with UE exercises daily. Exit Protocol Followed: Yes For complete objective data, detailed plan of care and patient education refer to: OT EVALUATION flow sheet, OT TREATMENT flow sheet, patient Plan of Care, Plan of Care progress note, and Patient Education. * Katie Cuellar RN - 01/22/2023 1:30 PM EST Care Management Progress Note Date: 01/22/2023 Time: 1330 Patient Name: Kevin White Date of : 1940 Discharge Plan: D/C Disposition: Home Agency/Destination: [facility] [place] [facility] Post-Acute Patient Choice 1: OP therapy - [facility] How did you provide the Post Acute Choices: (verbal discussion) Options Reviewed: Possible expense, Explained services/benefits Reason for Choice: Patient/Family preference Discharging Transportation Plan: Transportation Type: Auto () Discharge Plan Status: in progress Call made to pt , as discussed with pt . This RN spoke with rehab staff related to home going recommendations for pt. as part of the discharge planning process. Discussed recommendations to continue skilled services upon discharge to home with the pt. Options explained HHC vs OP, information given on what both services would provide upon discharge. Provider list offered. Pt / would like OP for skilled services upon dc, list declined, they would like [facility] as provider . Will make referral as discussed. No voiced concern for dc to home , my or pt. * Munir Shabazz CREATIVE INTERN - 01/22/2023 1:00 PM EST PHYSICAL THERAPY Daily Progress Note PT Time Calculation: Start time: 1300 Stop time: 1400 Time calculation: 60 PT Individual Minutes: 60 min Therapy Precautions Therapy Precautions Orthotic Devices: No Weight Bearing Status: WFL General Rehab Precautions: Fall risk (aspiration) Balance Balance Treatment Standing Balance - Static: Stand by assist, Contact guard assist Documentation Nurse - Standing Static: (None) Standing Balance - Dynamic: Contact guard assist, Minimal assist Documentation Nurse - Standing Dynamic: (None) Loss of Balance- Standing Dynamic: intermittent Skilled Intervention Provided: neuromuscular re-education For: balance recovery, fall prevention Resulting in: improved activity tolerance, improved balance reactions Skilled Intervention: Pt ambulates w/o AD to chellenge dynamic standing balance. Pt is more unsteady w/o device needing CGA-min for balance. Pt performs backwards walking w/o AD to challenge dynamic standing balance. Pt needing intermittent min for balance with backwards walking. Pt performs alt cone taps to improve SLS balance. Min needed for balance with cone taps. Pt performs alt step ups on AIREX to improve negotiation of unstable surface. Pt needing frequent min for balance recovery with AIREX step ups. Verbal cues for increae step height to clear 3 inch rise on AIREX. Transfers Transfers Sit to Stand: Stand by assist Documentation Nurse: wheeled walker Skilled Intervention Provided: verbal cues For: controlled descent, safety during functional tasks Resulting in: improved activity tolerance, improved performance, improved functional independence Skilled Intervention: Verbal cues for slow descent with stand to sit transfers for safety. Gait/Locomotion Gait / Locomotion Gait Assistance: Stand by assist Assistive Device: wheeled walker Distance: (200+ feet) Pattern: R impaired heel strike, L impaired heel strike, R decreased step length, L decreased step length Gait Loss(es) of Balance: intermittent Environment/Terrain: open/community environment, multiple distractions Skilled Intervention Provided: verbal cues For: gait technique, improved posture Resulting in: improved activity tolerance, improved functional independence, improved performance Skilled Intervention: Verbal cues for posture and step length with gait training. Exercise Exercises Standing Exercises: Heel raises, toe raises, marching, hip abd/add, hip flex/ext, HS curls, and mini squats x15 reps each to increase LE strength. Pt has miryam UE support for exercises. Pt takes x2 seated rest breaks. Skilled Intervention Provided: verbal cues, instruction on proper technique/alignment For: achieving full ROM as tolerated, frequency of exercise(s), muscle activation, number of repetitions Resulting in: improved activity tolerance, improved functional strength/ROM Skilled Intervention: Recumbent bike for 10 min on level 1 resistance to improve LE strength, LE reciprocal motion, and functional activity tolerance. Home Living Home Living Obtained Home Living and PLOF info from: Patient, Review of patient s medical record Unable to obtain Home Living and PLOF info on initial eval: Patient is a questionable historian Lives With: Spouse, Son (son works 5 days a week and is unable to assist pt when working. pt reports in good health and can assist pt with needs after discharge.) Type of Home: House Home Layout: One level, Full bath on main level, Bed on main level, Stairs between floors, Work area in basement (laundry on main. house has basement and 1st floor. 1/2 bath in basement) Rails on inside stairs: 2 rails Number of stairs inside home: 7 Steps to enter home: Yes Rails to enter home: 2 rails Number of stairs to enter home: 5 Bathroom Shower/Tub: Walk-in shower, Main level Bathroom Toilet: Standard Bathroom Equipment: Grab bars in shower, Shower chair, Hand-held showerhead, Grab bars around toilet Bathroom Accessibility: Accessible via walker Mobility Equipment: Wheeled walker Additional Objective Details - Home Living: Pt reports that he likes to make lots of things in the basement ( model cars/trucks/semi's). Pt with expressive aphasia. Pt inconsistant with responses provided during PT evaluation versus previous consult. Pt is questionable historian. Prior Level of Function Receives Help From: Family ( and son ( son assists when not at work, as needed).) Level of Bishop - Transfers/Ambulation/Mobility: Independent with functional transfers, Independent with household ambulation, Independent with community ambulation (no device utilized) Level of Bishop - ADLs: Independent Level of Bishop - Homemaking: Independent Driving: Patient drives Vocational: Retired Leisure: Patient enjoys word searches, [employer]'s, and is a consistent churchgoer. Exit Protocol Followed: Yes For complete objective data, detailed plan of care and patient education refer to: PT EVALUATION flow sheet, PT TREATMENT flow sheet, patient Plan of Care, Plan of Care progress note, and Patient Education. * Danny Boo OTA - 01/22/2023 11:15 AM EST OCCUPATIONAL THERAPY Daily Progress Note OT Time Calculation: Start time: 1115 Stop time: 1215 Time calculation: 60 OT Individual Minutes: 60 min Therapy Precautions Orthotic Devices: No Weight Bearing Status: WFL General Rehab Precautions: Fall risk (aspiration) Cognition Overall Cognitive Status: Within Functional Limits Arousal/Alertness: Delayed responses to stimuli Orientation Level: Oriented X4 Executive functioning: Insight Safety Judgment: Decreased awareness of need for assistance Problem Solving: Assistance required to identify errors made Attention: Attends to quiet environment Hearing Status: WFL Social Interaction: Expressive deficit ADL Toileting: Contact guard assist (Standing to urinate, with CGA for clothing management and balance with unilateral support on grab bar.) Toileting - Skilled Intervention Provided: verbal cues, facilitation Toileting - For: efficient movement, fall prevention Toileting - Resulting In: improved activity tolerance Functional Mobility: Contact guard assist (CGA w/ use of FWW from room to therapy gym) Functional Mobility - Skilled Intervention Provided: facilitation, monitoring patient response withactivity Functional Mobility - For: efficient movement, fall prevention Functional Mobility - Resulting In: improved activity tolerance, increased initiation/participationin mobility task(s), improved performance Bed Mobility Supine to Sit: Supervision Skilled Intervention Provided: verbal cues, facilitation, monitoring patient response with activity For: efficient movement, fall prevention Resulting In: improved activity tolerance, improved performance Functional Transfers Sit to Stand: Contact guard assist Stand Pivot Transfers: Contact guard assist (<> EOM) Documentation Nurse: wheeled walker Skilled Intervention Provided: verbal cues, facilitation, monitoring patient response with activity For: efficient movement, fall prevention Resulting In: improved activity tolerance, increased initiation/participation in mobility task(s), improved performance Exercise Seated Exercises: Pt. sat unsupported on EOM, provided patient with UE HEP with moderate resistancetheraband x15 in shoulder flexion, abduction/adduction, elbow flexion/extension, tricep extension, and chest press. Pt. completed at a slow pace with moderate cueing for UE placement to improve overall technqiue with fair carryover. Patient reports low back pain following completion of exercises secondary to sitting unsupported. Patient reports that he had back pain before hospital stay. Skilled intervention provided: verbal cues, facilitation, instruction on proper technique/alignment For: achieving full ROM as tolerated, efficient movement, fall prevention Resulting In: efficient movement, improved functional strength/ROM Interventions Visual/Perceptual Training: Eye-hand coordination Skilled Intervention Provided: verbal cues, facilitation, monitoring patient response with activity For: efficient movement, increased participation Resulting In: improved activity tolerance, increased initiation/participation in mobility task(s), improved performance Skilled Intervention: Static standing- standing at elevated table top to engage in coordination task by placing PVC pipe in a sequence while following a pictorial guide and handout with moderate assistance with increased amount of time. Patient required cueing to rotate pieces and utilized correct pieces with ~50% accuracy. Pt. tolerated standing for 11:07 first attempt and 2:07 second attempt with seated RB secondary to low back pain and overall fatigue. Home Living Obtained Home Living and PLOF info from: Patient, Review of patient s medical record Unable to obtain Home Living and PLOF info on initial eval: Patient is a questionable historian Lives With: Spouse, Son (son works 5 days a week and is unable to assist pt when working. pt reports in good health and can assist pt with needs after discharge.) Type of Home: House Home Layout: One level, Full bath on main level, Bed on main level, Stairs between floors, Work area in basement (laundry on main. house has basement and 1st floor. 1/2 bath in basement) Rails on inside stairs: 2 rails Number of stairs inside home: 7 Steps to enter home: Yes Rails to enter home: 2 rails Number of stairs to enter home: 5 Bathroom Shower/Tub: Walk-in shower, Main level Bathroom Toilet: Standard Bathroom Equipment: Grab bars in shower, Shower chair, Hand-held showerhead, Grab bars around toilet Bathroom Accessibility: Accessible via walker Mobility Equipment: Wheeled walker Additional Objective Details - Home Living: Pt reports that he likes to make lots of things in the basement ( model cars/trucks/semi's). Pt with expressive aphasia. Pt inconsistant with responses provided during PT evaluation versus previous consult. Pt is questionable historian. Prior Level of Function Receives Help From: Family ( and son ( son assists when not at work, as needed).) Level of Bishop - Transfers/Ambulation/Mobility: Independent with functional transfers, Independent with household ambulation, Independent with community ambulation (no device utilized) Level of Bishop - ADLs: Independent Level of Bishop - Homemaking: Independent Driving: Patient drives Vocational: Retired Leisure: Patient enjoys word searches, [employer]'s, and is a consistent churchgoer. Handoff given to primary RN. Exit Protocol Followed: Yes For complete objective data, detailed plan of care and patient education refer to: OT EVALUATION flow sheet, OT TREATMENT flow sheet, patient Plan of Care, Plan of Care progress note, and Patient Education. 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 -01/06 VIANEY: normal EF 59%, well-seated AVR, LA dilation. -01/07 CTH: evolution of acute R MCA CVA with petechial hemorrhage -LDL 66, A1c 6.6 -Neurology followed on medical floor -Started ASA and transitioned to eliquis 01/11/23 -Transferred to [facility] on 01/15/23 -Atorvastatin 40mg daily -Eliquis 5mg BID - Eliquis covered with a $47/month copay. Pharm can get first month free . 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 Fibrillation s/p cardioversion/MAZE/LA clipping -Norvasc 10mg daily -Eliquis 5mg BID -Tikosyn 250mcg q12 -Lasix 20mg daily -Lisinopril 10mg daily -01/19 Hospitalist team: Dc'd Lasix. Hyperlipidemia -Home med: Crestor 20mg daily -Atorvastatin 40mg daily Hypothyroidism -Levothyroxine 175mcg daily Type 2 DM with hyperglycemia -Home med: Glucophage XR 500mg BID -A1c 6.6 -Carb controlled diet -Accuchecks QID -Insulin SSI for coverage AJAY on CKD -Unclear stage. Admission on medical floor C 1.4 ->0.9 -01/14 Cr 1.6. s/p gentle hydration -01/19 Renal US: Right kidney 11 x 6 x 4.5 cm. No hydronephrosis or shadowing stone. Left kidney 10.7 x 6.5 x 5.1 cm. No hydronephrosis or shadowing stone. A 1.4 cm cyst. Prevoid and postvoid calculated bladder volumes are essentially unchanged, approximately 8 mL. -01/20 Nephrology signed off. Avoid NSAIDs. No need for diuretics; appears euvolemic. Follow up in [place]. Thrombocytopenia -Baseline plts low-normal ~150 -01/07 Plts 91 -Bleeding risk Pain management -PRN Tylenol Bladder BPH -Admission UA/cx: Neg -Bladder scans and ISC if indicated. Scans 48,33,6. -Flomax 0.4mg daily Bowels -Monitor for regular BMS -Senna-s 1 tab BID -Miralax daily H/o NAJMA -Refuses CPAP DVT prophylaxis -Eliquis 5mg BID GI prophylaxis GERD -Home med: Nexium 40mg daily -Protonix 40mg daily Nutrition -Mag Ox 400mg daily -B-12 1000mcg daily -MVI daily -Vit D 42 Obesity -BMI: 31.69 -Encourage diet modification, active lifestyle, and weight reduction. Follow-ups - [facility] - Nephrology - PCP ELOS: 01/25/2023 Equipment: Walker, rollator Time spent on counseling/coordination of care: 25 minutes Time spent with the patient: 10 minutes SUBJECTIVE: Patient denies any acute overnight events. Pt doing well. No acute issues. Sleeping well. Eating fair. No CP, SOB, N/V. Denies pain VSS Labs reviewed No recent imaging LBM 01/20 Bladder: continent Scheduled meds last 24hrs: All meds taken PRN meds last 24hrs: None Temp: [97.4 F (36.3 C)-97.7 F (36.5 C)] 97.4 F (36.3 C) Heart Rate: [55-63] 60 Resp: [14-16] 16 BP: (136-154)/(68-79) 154/79 Physical Exam: General Appearance: In no apparent distress, well nourished L facial asymmetry HEENT: AT/NC EOMI Respiratory: No labored breathing. Cardiovascular: Well perfused. Abdomen: Nontender, nondistended. Soft Musculoskeletal: No acute injury or gross deformity Skin: No rashes visualized Psychiatric: Normal mood. Flat affect Therapy Assessments: Home Living RETIRED Type of Home: (not recorded) Home Layout: One level, Full bath on main level, Bed on main level, Stairs between floors, Work area in basement (laundry on main. house has basement and 1st floor. 1/2 bath in basement) (01/16/23 1292) RETIRED Bathroom Shower/Tub: (not recorded) RETIRED Bathroom Toilet: (not recorded) Bathroom Equipment: Grab bars in shower, Shower chair, Hand-held showerhead, Grab bars around toilet (01/16/23932) Bathroom Accessibility: Accessible via walker (01/16/23932) Mobility Equipment: Wheeled walker (01/16/23932) Additional Objective Details - Home Living: Pt reports that he likes to make lots of things in the basement ( model cars/trucks/semi's). Pt with expressive aphasia. Pt inconsistant with responses provided during PT evaluation versus previous consult. Pt is questionable historian. (01/16/23932) Prior Level of Function Level of Bishop - Transfers/Ambulation/Mobility: Independent with functional transfers, Independent with household ambulation, Independent with community ambulation (no device utilized) (01/16/23932) Lives With: Spouse, Son (son works 5 days a week and is unable to assist pt when working. pt reports in good health and can assist pt with needs after discharge.) (01/16/23932) Receives Help From: Family ( and son ( son assists when not at work, as needed).) (01/16/23932) Level of Bishop - Homemaking: Independent (01/16/23932) Retired: Vocational: (not recorded) RETIRED Leisure: (not recorded) Subjective Impression - Prior Function: Pt denies any falls in last 6 months. (01/16/23932) Current Level of Function Balance: RETIRED Sitting Balance - Static: (not recorded) RETIRED Sitting Balance - Dynamic: (not recorded) RETIRED Standing Balance - Static: (not recorded) RETIRED Standing Balance - Dynamic: (not recorded) Bed Mobility: Rolling: Modified independent, Head of bed flat (01/20/23 1020) Supine to Sit: Modified independent, Head of bed flat (01/20/23 1020) Sit to Supine: Modified independent, Head of bed flat (01/20/23 1020) Transfers: Sit to Stand: Stand by assist (01/21/23 1405) Bed to Chair: Contact guard assist (01/16/23932) Stand Pivot Transfers: Stand by assist, Contact guard assist (01/21/23 1405) Squat Pivot Transfers: (not recorded) Documentation Nurse: wheeled walker (and no AD) (01/21/23 1405) Gait/Locomotion: Gait Assistance: Stand by assist (01/21/231404) Assistive Device: wheeled walker (01/21/231404) Distance: 150 Feet (then another 180ft on even surfaces with 2 turns, 20 ft over carpeting) (01/21/23 140) Pattern: step through, R impaired heel strike, L impaired heel strike, forward flexed, shuffle (01/21/231404) Weight Bearing Status: able to maintain (01/16/23932) ADL & IADL Feeding: Set-up (01/16/23729) Meal Prep: (not recorded) Grooming: Set-up, Stand by assist (Benefiting from verbal cues to locate items.) (01/16/23729) Upper Body Bathing: Stand by assist (01/16/23729) Lower Body Bathing: Stand by assist (Patient incontinent of bowel during showering. Nursing informed.) (01/16/23729) Upper Body Dressing: Stand by assist, Set-up (SBA to don overhead shirt, after set up seated at chair level.) (01/18/23732) Lower Body Dressing: Contact guard assist (SBA to thread brief and elastic pants seated with figurefour technique. CGA to stand to manage over hips with unilateral support on FWW.) (01/18/23732) Toileting: Contact guard assist (CGA standing to urinate, CGA for clothing management.) (01/19/23 130) Speech Therapy Speech Functional Diagnosis: CVA: (not recorded) Speech/Language (Unrelated to CVA): (not recorded) Cognition (Unrelated to CVA): (not recorded) Dysphagia (Unrelated to CVA): (not recorded) Voice (Unrelated to CVA): (not recorded) * Caty Lancaster RD - 01/22/2023 8:49 AM EST Nutrition Care Follow Up Monitoring and Evaluation: PO intake was 50% or greater at most meals Nutrition Diagnosis: Predicted inadequate energy intake related to pt report of decreased appetite as evidenced by assume intakes will not meet EEN's. Resolving, appetite appears improved. Nutrition Intervention/Prescription: Continue Medical Food Supplement Diet: CHO consistent 75gm CHO/meal, Per ST- Chopped/NDD3 Oral nutrition supplement: NSA Mighty Shakes TID (vary flavors) Nutrition Goals: PO intake > 75% most meals, supplements Start Date:01/22/2023 Expected End Date:01/28/2023 Nutrition Education: No needs at this time Assessment: Pertinent clinical information: continues in IPR s/p CVA Current weight: 102.2 kg (225 lb 6.4 oz) Body mass index is 30.57 kg/m . Weight: was 233#, 01/18/23 Current diet order: GUILLERMO 75 gm/meal, NDD3/chopped Recent intake: 50-100%. Current intake Likely does not meet estimated needs. 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 Labs: Recent Labs 01/22/23 0542 NA 137 K 4.6 BICARB 26 CL 106 GLUCOSE 125* BUN 22 CREATININE 1.47* Scheduled Meds: amLODIPine 10 mg Oral Daily apixaban 5 mg Oral BID atorvastatin 40 mg Oral Nightly cyanocobalamin 1,000 mcg Oral Daily dofetilide 250 mcg Oral Q12H GENIE FLUoxetine 20 mg Oral Daily lispro insulin 0-15 Units Subcutaneous at bedtime insulin lispro 0-30 Units Subcutaneous TID AC levothyroxine 175 mcg Oral Daily lisinopriL 10 mg Oral Daily with lunch magnesium oxide 400 mg Oral Daily melatonin 5 mg Oral Nightly multivitamin 1 tablet Oral Daily pantoprazole 40 mg Oral Daily polyethylene glycol 17 g Oral Daily senna-docusate 1 tablet Oral BID sodium chloride (PF) 5 mL Intravenous Q8H GENIE tamsulosin 0.4 mg Oral After evening meal Continuous Infusions: sodium chloride 0.9 % Estimated Energy Needs Total Energy Estimated Needs: 2300kcals Method for Estimating Needs: (25kcals/kg). adjbw Total Protein Estimated Needs: 90gms Method for Estimating Needs: (1gm/kg). adjbw Will follow-up , as needed while in-house. Caty Lancaster RDN, LD Office [phone] * Anisa Luther, SUSY - 01/22/2023 7:30 AM EST Inpatient Rehab Speech Pathology Daily Note AC[employer]IC SERVICES PROFESSIONAL Time Calculation: Start time: 729 Stop time: 829 Time calculation: 60 ACADEMIC SERVICES PROFESSIONAL Individual Minutes: 60 min Recommendations: Recommendations PO Recommendations: NDD diet NDD diet recommendation: Chopped/ NDD3, chopped meats, Thin liquids Barriers Returning to Prior Level of Function: Body Structure and Function: Neurologic impairment Explain Impairments: R MCA CVA Activities and Participation: Communication limitation, Swallowing limitation, Executive function limitation Explain Limitations: dysarthria, dysphagia, cognitive deficits Environmental Factors: Home situation, Family/caregiver support Explain Environmental Factors: lives at home with spouse Skilled Therapy Needs: Skilled Therapy Needs: Are Skilled Therapy Services Needed After Discharge: Yes Functional Limitations: communication deficits, decreased sequencing, decreased problem solving, impaired memory, decreased attention, dysphagia Intensity of Skilled Therapy: 2-3 days per week Anticipated Duration of Skilled Therapy: Duration 10 - 30 days Subjective Pt participated in skilled speech and cognitive tx this date (60 min). Pt was seen sitting upright in chair at bedside, pt was cooperative and pleasant throughout session, no family/friends present Objective Please see Plan of Care for current status of patient goals 1. ST Expressive - Patient will describe object function, pictures, and tasks with 90% accuracy andminimal cues 2. ST Motor Speech - Patient will use speech intelligibility strategies at conversation level with 90% accuracy and minimal cues. 3. ST Voice - Patient will perform breath support exercises for improved functional phonation with 90% accuracy and minimal cues 4. ST Oral Swallowing - Patient will perform oral motor exercises to improve strength, coordinationand function of oral musculature x 15 repetitions with minimal cues. 5. ST Swallowing - Patient will complete isometric lingual strengthening exercises x 15 repetitionswith minimal cues. 6. ST Swallow Strategies/Postures - Patient will demonstrate use of safe swallowing strategies withminimal cues. 7. ST - Diet Tolerance - Patient will tolerate upgrade of solid trials to NDD4 without overt or clinical signs or symptoms of aspiration via clinical assessment. 8. ST O-Log - Patient will score a 25 or above on two separate administrations of the O-Log. 9. ST Memory - Patient will complete memory tasks with the use of memory strategies with 90% accuracy and minimal cues. 10. ST Problem Solving - Patient will complete basic progressing to complex verbal problem solving and tasks with 90% accuracy and minimal cues. 11. ST Executive Function - Patient will complete basic sequencing, organizing, and planning tasks with 90% accuracy and minimal cues. Assessment 1. Pt completed expressive language task via identifying letters in words with 90% accuracy independently. Pt benefited from larger print to increase accuracy. Pt read [facility] words with 69% accuracy independently. Pt with 100% accuracy in spelling remaining words aloud, however unable to produce letter sounds in isolation or blend words. Pt unable to read words in word search bank and benefited frommax A. Pt completed object description task via describing object function with 75% accuracy and benefited from mod semantic and logical cueing to increase accuracy to 85%. Pt completed expressive language task via sentence completion (ie. Up and __?) with 79% accuracy independently and benefited from mod semantic and logical cueing to increase accuracy to 96%. 2. Educated pt to use of SOS strategies this date. Pt noted with low intensity speech throughout session and benefited from mod verbal reminders to speak up. 11. Pt completed sequencing, organizing, planning, and visual scanning task via word search with 90% accuracy with mod I. Pt benefited from logical cues to scan from left to right. Pt endorsing feeling scrambled and disorganized this morning. He was noted to [place] extra letters for two words andthe wrong sequence of letters for one word. Pt benefited from verbal cues and directional cues to increase accuracy and word finding. Plan Continue per POC Handoff given to primary RN. ACADEMIC SERVICES PROFESSIONAL Visit ACAD[employer]IC SERVICES PROFESSIONAL Visit Date: 01/22/23 Exit Protocol Followed: Yes Anisa Luther M.Ed CCC-ACADEMIC SERVICES PROFESSIONAL * Katie Cuellar RN - 01/21/2023 3:30 PM EST Spoke with in his room, his was gone for the day, he states he felt his therapy session went well his attended. Pt thinks he will want [facility] [place] for skilled services. He is unsure if his is coming in again tomorrow. Will contact his in the am , if she does not come into visit. * Dorothy Quijano, PT - 01/21/2023 2:05 PM EST PHYSICAL THERAPY Daily Progress Note PT Time Calculation: Start time: 1405 Stop time: 1305 Time calculation: 60 PT Individual Minutes: 60 min , Anamaria, here for observation/training this date. She will be able to provide safety cues for transfers, gait and stairs. Therapy Precautions Therapy Precautions Orthotic Devices: No Weight Bearing Status: WFL General Rehab Precautions: Fall risk (aspiration) Balance Balance Treatment Standing Balance - Static: Stand by assist Documentation Nurse - Standing Static: wheeled walker Standing Balance - Dynamic: Contact guard assist, Minimal assist Documentation Nurse - Standing Dynamic: (none) Skilled Intervention Provided: verbal cues, tactile cues, facilitation, neuromuscular re-education For: LE management, LE positioning, attention to affected UE/LE, balance recovery Resulting in: improved activity tolerance, improved awareness, improved balance reactions, improvedcaregiver/family awareness Skilled Intervention: Pt worked on standing ring toss while standing on blue airex pad and CGA/min assist with cues for more upright posture. Pt then worked on walking over red floor mat with moving objects under it with RW and min assist. Pt then worked on walking around cones without AD and CGA with cues for foot placement. He also worked on stepping over 6 inch hurdles going forwards and sidestepping with CGA to min assist. Bed Mobility Bed Mobility Skilled Intervention: PT went over with spouse that pt does better with use of bed transfer assist bar for increased safety and independence. stated that she was going to get an adjustable bed for pt's breathing for home. Transfers Transfers Sit to Stand: Stand by assist Stand Pivot Transfers: Stand by assist, Contact guard assist Documentation Nurse: wheeled walker (and no AD) Skilled Intervention Provided: verbal cues, tactile cues, facilitation, graded task by elevating height of sitting surface For: LE management, LE positioning, controlled descent, energy conservation Resulting in: improved activity tolerance, improved balance, improved caregiver/family awareness, improved functional independence, improved safety Skilled Intervention: PT went over with spouse pt's cues needed for hand placement for trnsfers. Spouse able to provide cues for technique well. Functional Transfers Car Transfers: Stand by assist, Contact guard assist Documentation Nurse: wheeled walker Skilled Intervention Provided: verbal cues, tactile cues, facilitation, monitoring patient responsewith activity For: LE management, LE positioning, controlled descent Resulting in: improved activity tolerance, improved balance, improved caregiver/family awareness, improved caregiver/family safety Gait/Locomotion Gait / Locomotion Gait Assistance: Stand by assist Assistive Device: wheeled walker Distance: 150 Feet (then another 180ft on even surfaces with 2 turns, 20 ft over carpeting) Rest Breaks: Yes Rest Break Position: seated Rest Break Duration: 3 minutes Additional Gait Trial 2: Yes Pattern: step through, R impaired heel strike, L impaired heel strike, forward flexed, shuffle Gait Loss(es) of Balance: intermittent, with dual tasks or distractions Stair Management Technique: two rails, alternating pattern, step-to pattern Stair Management Assistance: Stand by assist, Contact guard assist Number of Stairs: 12 (6 inch) Skilled Intervention Provided: verbal cues, tactile cues, facilitation, monitoring patient responsewith activity For: attention to task, device management and safe use of device, fall prevention, gait sequence, stairs sequence/technique Resulting in: improved activity tolerance, improved caregiver/family awareness, improved caregiver/family safety Exercise Exercises Skilled Intervention Provided: verbal cues, monitoring patient response with exercise For: achieving full ROM as tolerated, energy conservation, efficient movement, frequency of exercise(s) Resulting in: efficient movement, improved awareness, improved functional strength/ROM, improved independence with HEP Skilled Intervention: recumbent bike for 8 minutes on level 1 with bilat UEs and LEs. PT went over with spouse that he has a seated LE HEP that he can perform with inpd at home. Home Living Home Living Obtained Home Living and PLOF info from: Patient, Review of patient s medical record Unable to obtain Home Living and PLOF info on initial eval: Patient is a questionable historian Lives With: Spouse, Son (son works 5 days a week and is unable to assist pt when working. pt reports in good health and can assist pt with needs after discharge.) Type of Home: House Home Layout: One level, Full bath on main level, Bed on main level, Stairs between floors, Work area in basement (laundry on main. house has basement and 1st floor. 1/2 bath in basement) Rails on inside stairs: 2 rails Number of stairs inside home: 7 Steps to enter home: Yes Rails to enter home: 2 rails Number of stairs to enter home: 5 Bathroom Shower/Tub: Walk-in shower, Main level Bathroom Toilet: Standard Bathroom Equipment: Grab bars in shower, Shower chair, Hand-held showerhead, Grab bars around toilet Bathroom Accessibility: Accessible via walker Mobility Equipment: Wheeled walker Additional Objective Details - Home Living: Pt reports that he likes to make lots of things in the basement ( model cars/trucks/semi's). Pt with expressive aphasia. Pt inconsistant with responses provided during PT evaluation versus previous consult. Pt is questionable historian. Prior Level of Function Receives Help From: Family ( and son ( son assists when not at work, as needed).) Level of Bishop - Transfers/Ambulation/Mobility: Independent with functional transfers, Independent with household ambulation, Independent with community ambulation (no device utilized) Level of Bishop - ADLs: Independent Level of Bishop - Homemaking: Independent Driving: Patient drives Vocational: Retired Leisure: Patient enjoys word searches, crossword's, and is a consistent churchgoer. Handoff given to primary RN. Exit Protocol Followed: Yes For complete objective data, detailed plan of care and patient education refer to: PT EVALUATION flow sheet, PT TREATMENT flow sheet, patient Plan of Care, Plan of Care progress note, and Patient Education. 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 -01/06 VIANEY: normal EF 59%, well-seated AVR, LA dilation. -01/07 CTH: evolution of acute R MCA CVA with petechial hemorrhage -LDL 66, A1c 6.6 -Neurology followed on medical floor -Started ASA and transitioned to eliquis 01/11/23 -Transferred to [facility] on 01/15/23 -Atorvastatin 40mg daily -Eliquis 5mg BID - Eliquis covered with a $47/month copay. Pharm can get first month free . 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 Fibrillation s/p cardioversion/MAZE/LA clipping -Norvasc 10mg daily -Eliquis 5mg BID -Tikosyn 250mcg q12 -Lasix 20mg daily -Lisinopril 10mg daily -01/19 Hospitalist team: Dc'd Lasix. Hyperlipidemia -Home med: Crestor 20mg daily -Atorvastatin 40mg daily Hypothyroidism -Levothyroxine 175mcg daily Type 2 DM with hyperglycemia -Home med: Glucophage XR 500mg BID -A1c 6.6 -Carb controlled diet -Accuchecks QID -Insulin SSI for coverage AJAY on CKD -Unclear stage. Admission on medical floor C 1.4 ->0.9 -01/14 Cr 1.6. s/p gentle hydration -01/19 Renal US: Right kidney 11 x 6 x 4.5 cm. No hydronephrosis or shadowing stone. Left kidney 10.7 x 6.5 x 5.1 cm. No hydronephrosis or shadowing stone. A 1.4 cm cyst. Prevoid and postvoid calculated bladder volumes are essentially unchanged, approximately 8 mL. -01/20 Nephrology signed off. Avoid NSAIDs. No need for diuretics; appears euvolemic. Follow up in [place]. Thrombocytopenia -Baseline plts low-normal ~150 -01/07 Plts 91 -Bleeding risk Pain management -PRN Tylenol Bladder BPH -Admission UA/cx: Neg -Bladder scans and ISC if indicated. Scans 48,33,6. -Flomax 0.4mg daily Bowels -Monitor for regular BMS -Senna-s 1 tab BID -Miralax daily H/o NAJMA -Refuses CPAP DVT prophylaxis -Eliquis 5mg BID GI prophylaxis GERD -Home med: Nexium 40mg daily -Protonix 40mg daily Nutrition -Mag Ox 400mg daily -B-12 1000mcg daily -MVI daily -Vit D 42 Obesity -BMI: 31.69 -Encourage diet modification, active lifestyle, and weight reduction. Follow-ups - [facility] - Nephrology - PCP ELOS: 01/25/2023 Equipment: Walker, rollator Time spent on counseling/coordination of care: 25 minutes Time spent with the patient: 10 minutes SUBJECTIVE: Patient denies any acute overnight events. Pt seen in therapy. Family member present for session. Pt was working in walking on uneven surfaceswith WW. He did well. No LOB. Needs reminders to slow down especially when sitting. No pain, RAMSEY, change in vision, CP, SOB, N/V VSS Labs reviewed No recent imaging LBM 12 Bladder: continent Scheduled meds last 24hrs: Refused Miralax. Remaining meds taken PRN meds last 24hrs: None Temp: [97.4 F (36.3 C)-97.9 F (36.6 C)] 97.4 F (36.3 C) Heart Rate: [63-68] 63 Resp: [14-16] 16 BP: (148-157)/(71-77) 148/71 Physical Exam: General Appearance: NAD L facial asymmetry HEENT: EOMI Respiratory: On room air, no respiratory distress Cardiovascular: Well perfused. Abdomen: Nontender, nondistended. Soft Musculoskeletal: No acute injury or gross deformity Skin: No rashes visualized Psychiatric: Normal mood. Flat affect Therapy Assessments: Home Living RETIRED Type of Home: (not recorded) Home Layout: One level, Full bath on main level, Bed on main level, Stairs between floors, Work area in basement (laundry on main. house has basement and 1st floor. 1/2 bath in basement) (01/16/23932) RETIRED Bathroom Shower/Tub: (not recorded) RETIRED Bathroom Toilet: (not recorded) Bathroom Equipment: Grab bars in shower, Shower chair, Hand-held showerhead, Grab bars around toilet (01/16/23932) Bathroom Accessibility: Accessible via walker (01/16/23932) Mobility Equipment: Wheeled walker (01/16/23932) Additional Objective Details - Home Living: Pt reports that he likes to make lots of things in the basement ( model cars/trucks/semi's). Pt with expressive aphasia. Pt inconsistant with responses provided during PT evaluation versus previous consult. Pt is questionable historian. (01/16/23932) Prior Level of Function Level of Bishop - Transfers/Ambulation/Mobility: Independent with functional transfers, Independent with household ambulation, Independent with community ambulation (no device utilized) (01/16/23932) Lives With: Spouse, Son (son works 5 days a week and is unable to assist pt when working. pt reports in good health and can assist pt with needs after discharge.) (01/16/23932) Receives Help From: Family ( and son ( son assists when not at work, as needed).) (01/16/23932) Level of Bishop - Homemaking: Independent (01/16/23932) Retired: Vocational: (not recorded) RETIRED Leisure: (not recorded) Subjective Impression - Prior Function: Pt denies any falls in last 6 months. (01/16/23932) Current Level of Function Balance: RETIRED Sitting Balance - Static: (not recorded) RETIRED Sitting Balance - Dynamic: (not recorded) RETIRED Standing Balance - Static: (not recorded) RETIRED Standing Balance - Dynamic: (not recorded) Bed Mobility: Rolling: Modified independent, Head of bed flat (01/20/23 1020) Supine to Sit: Modified independent, Head of bed flat (01/20/23 1020) Sit to Supine: Modified independent, Head of bed flat (01/20/23 1020) Transfers: Sit to Stand: Stand by assist (01/20/23 1020) Bed to Chair: Contact guard assist (01/16/23932) Stand Pivot Transfers: Stand by assist, Contact guard assist (01/20/23 102) Squat Pivot Transfers: (not recorded) Documentation Nurse: (none) (01/20/23 102) Gait/Locomotion: Gait Assistance: Contact guard assist (01/20/23 102) Assistive Device: (none) (01/20/23 102) Distance: 200 Feet (x2 on even surfaces with 2 turns.) (01/20/23 102) Pattern: step to, step through, R impaired heel strike, L impaired heel strike, R decreased step length, L decreased step length, over reliance on upper extremities, forward flexed, shuffle, R flexedknee, L flexed knee (01/20/231019) Weight Bearing Status: able to maintain (01/16/23932) ADL & IADL Feeding: Set-up (01/16/23729) Meal Prep: (not recorded) Grooming: Set-up, Stand by assist (Benefiting from verbal cues to locate items.) (01/16/23729) Upper Body Bathing: Stand by assist (01/16/23729) Lower Body Bathing: Stand by assist (Patient incontinent of bowel during showering. Nursing informed.) (01/16/23729) Upper Body Dressing: Stand by assist, Set-up (SBA to don overhead shirt, after set up seated at chair level.) (01/18/23732) Lower Body Dressing: Contact guard assist (SBA to thread brief and elastic pants seated with figurefour technique. CGA to stand to manage over hips with unilateral support on FWW.) (01/18/23732) Toileting: Contact guard assist (CGA standing to urinate, CGA for clothing management.) (01/19/23 1301) Speech Therapy Speech Functional Diagnosis: CVA: (not recorded) Speech/Language (Unrelated to CVA): (not recorded) Cognition (Unrelated to CVA): (not recorded) Dysphagia (Unrelated to CVA): (not recorded) Voice (Unrelated to CVA): (not recorded) Katie George RN - 01/21/2023 12:00 PM EST Care Management Progress Note Date: 01/21/2023 Time: 1200 Patient Name: Kevin White Date of : 1940 Discharge Plan: Home with Discharging Transportation Plan: TBD Discharge Plan Status: in progress Spoke with pt when she arrived to unit, taken to OT area, pt already has his sister & nephew present for therapies with him. Explained role of CM, discharge planning process , target dc date of 01/25/23 discussed & encouraged family involvement in rehab process. DC date to be written on white board in pt room Therapy scheduling /times explained to pt , she is agreeable to stay for pt 2 pm therapy session today. Reviewed importance of attending therapies so that family/visitor can see the amount of assistance pt needs & will be able to confirm that this support can be given at home upon dc. Discussed at this time it is anticipate pt will be recommended to have 24/ supervision/assistance available initially upon dc. Discussed with pt continued therapies at dc are recommended HHC vs OP, will discuss further after she goes to therapies with pt. Will continue to follow & assist to develop appropriate discharge plan to meet patient needs asIP Rehab admit progresses. * Abida Guzman COTA - 01/21/2023 11:15 AM EST OCCUPATIONAL THERAPY Daily Progress Note OT Time Calculation: Start time: 1115 Stop time: 1215 Time calculation: 60 OT Individual Minutes: 60 min Therapy Precautions Orthotic Devices: No Weight Bearing Status: WFL General Rehab Precautions: Fall risk (aspiration) Cognition Overall Cognitive Status: Within Functional Limits Arousal/Alertness: Delayed responses to stimuli Orientation Level: Oriented X4 Executive functioning: Insight Safety Judgment: Decreased awareness of need for assistance Problem Solving: Assistance required to identify errors made Attention: Attends to quiet environment, Attends to distracted environment Hearing Status: WFL Social Interaction: Expressive deficit, Cooperative ADL Functional Mobility: Contact guard assist (gate belt, no AE with no LOB in perez) Functional Mobility - Skilled Intervention Provided: verbal cues, facilitation, monitoring patient response with activity Functional Mobility - For: efficient movement, fall prevention, increased participation in mobilitytask Functional Mobility - Resulting In: improved activity tolerance, increased initiation/participationin mobility task(s), increased upright tolerance for functional task(s) Functional Transfers Sit to Stand: Contact guard assist Bed to Chair Transfers: Contact guard assist Documentation Nurse: wheeled walker Skilled Intervention Provided: verbal cues, facilitation, monitoring patient response with activity For: LE positioning, UE positioning, efficient movement, fall prevention Resulting In: improved activity tolerance, increased initiation/participation in mobility task(s), increased upright tolerance for functional task(s) Skilled Intervention: Pt continues to benefit from cues for UE placement with transfers Exercise Seated Exercises: Pt engages in B UE exercises using 2# dowel tyler to address UE strength, ROM, and activity tolerance for increased safety and performance with ADL tasks and functional transfers. Pt completes x5 exercises, [id number] reps each with rest prn. Demo provided and vcs for counting reps as pt has difficulty multi-tasking. Skilled intervention provided: verbal cues, instruction on proper technique/alignment, patient education For: achieving full ROM as tolerated, efficient movement, fall prevention Resulting In: efficient movement, improved activity tolerance, improved performance, improved safety Interventions Skilled Intervention: Static/dynamic standing balance and visual motor: BITS Single target, user paced 3 min 96.32% accuracy 1.37 sec reaction time 131 hits Complex array, sequence results Uppercase Letters A-Z 3:24 min 78.79% accuracy 7.84 sec reaction time Vcs for sequencing as pt becomes confused after first 6 letters. With therapist providing prompts for next letter, pt able to select correct letter for 24/26 letters (unsure of 'Q' and 'X') Complex array, verbal results Words 4:09 min 20 words 80% accuracy 12.46 sec reaction time Mod cues for scanning and selecting correct word. Pt attempts to spell out words and frequently stops at wrong word and asks is this it? Figure ground find the bells 2:55 min 26 correct, 9 missed 0 distractor hits Home Living Obtained Home Living and PLOF info from: Patient, Review of patient s medical record Unable to obtain Home Living and PLOF info on initial eval: Patient is a questionable historian Lives With: Spouse, Son (son works 5 days a week and is unable to assist pt when working. pt reports in good health and can assist pt with needs after discharge.) Type of Home: House Home Layout: One level, Full bath on main level, Bed on main level, Stairs between floors, Work area in basement (laundry on main. house has basement and 1st floor. 1/2 bath in basement) Rails on inside stairs: 2 rails Number of stairs inside home: 7 Steps to enter home: Yes Rails to enter home: 2 rails Number of stairs to enter home: 5 Bathroom Shower/Tub: Walk-in shower, Main level Bathroom Toilet: Standard Bathroom Equipment: Grab bars in shower, Shower chair, Hand-held showerhead, Grab bars around toilet Bathroom Accessibility: Accessible via walker Mobility Equipment: Wheeled walker Additional Objective Details - Home Living: Pt reports that he likes to make lots of things in the basement ( model cars/trucks/semi's). Pt with expressive aphasia. Pt inconsistant with responses provided during PT evaluation versus previous consult. Pt is questionable historian. Prior Level of Function Receives Help From: Family ( and son ( son assists when not at work, as needed).) Level of Bishop - Transfers/Ambulation/Mobility: Independent with functional transfers, Independent with household ambulation, Independent with community ambulation (no device utilized) Level of Bishop - ADLs: Independent Level of Bishop - Homemaking: Independent Driving: Patient drives Vocational: Retired Leisure: Patient enjoys word searches, crossword's, and is a consistent churchgoer. Handoff given to primary RN. Exit Protocol Followed: Yes For complete objective data, detailed plan of care and patient education refer to: OT EVALUATION flow sheet, OT TREATMENT flow sheet, patient Plan of Care, Plan of Care progress note, and Patient Education. * Anisa Luther SLP - 01/21/2023 7:31 AM EST Inpatient Rehab Speech Pathology Daily Note [employer] Time Calculation: Start time: 730 Stop time: 830 Time calculation: 60 [employer]IC SERVICES PROFESSIONAL Individual Minutes: 60 min Recommendations: Recommendations PO Recommendations: NDD diet NDD diet recommendation: Chopped/ NDD3, chopped meats, Thin liquids Barriers Returning to Prior Level of Function: Body Structure and Function: Neurologic impairment Explain Impairments: R MCA CVA Activities and Participation: Communication limitation, Swallowing limitation, Executive function limitation Explain Limitations: dysarthria, dysphagia, cognitive deficits Environmental Factors: Home situation, Family/caregiver support Explain Environmental Factors: lives at home with spouse Skilled Therapy Needs: Skilled Therapy Needs: Are Skilled Therapy Services Needed After Discharge: Yes Functional Limitations: communication deficits, decreased sequencing, decreased problem solving, impaired memory, decreased attention, dysphagia Intensity of Skilled Therapy: 2-3 days per week Anticipated Duration of Skilled Therapy: Duration 10 - 30 days Subjective Pt participated in skilled speech and cognitive tx this date (60 min). Pt was seen sitting upright in chair at bedside, pt was cooperative and pleasant throughout session, no family/friends present Objective Please see Plan of Care for current status of patient goals 1. ST Expressive - Patient will describe object function, pictures, and tasks with 90% accuracy andminimal cues 2. ST Motor Speech - Patient will use speech intelligibility strategies at conversation level with 90% accuracy and minimal cues. 3. ST Voice - Patient will perform breath support exercises for improved functional phonation with 90% accuracy and minimal cues 4. ST Oral Swallowing - Patient will perform oral motor exercises to improve strength, coordinationand function of oral musculature x 15 repetitions with minimal cues. 5. ST Swallowing - Patient will complete isometric lingual strengthening exercises x 15 repetitionswith minimal cues. 6. ST Swallow Strategies/Postures - Patient will demonstrate use of safe swallowing strategies withminimal cues. 7. ST - Diet Tolerance - Patient will tolerate upgrade of solid trials to NDD4 without overt or clinical signs or symptoms of aspiration via clinical assessment. 8. ST O-Log - Patient will score a 25 or above on two separate administrations of the O-Log. 9. ST Memory - Patient will complete memory tasks with the use of memory strategies with 90% accuracy and minimal cues. 10. ST Problem Solving - Patient will complete basic progressing to complex verbal problem solving and tasks with 90% accuracy and minimal cues. 11. ST Executive Function - Patient will complete basic sequencing, organizing, and planning tasks with 90% accuracy and minimal cues. Assessment 1. Pt completed expressive language task via identifying letters in isolation with 100% accuracy independently. Pt wrote letters in isolation with 81% accuracy given mod I. Pt benefited from visual aid of written alphabet. Pt able to read 40% of words in word search word bank independently. Pt noted to state letters individually prior to reading whole word. Pt benefited from mod-max verbal and semantic cues to increase reading accuracy at word level to 60%. Pt noted with increase in word finding difficulties this date characterized by semantic paraphasias in conversation. Pt noted with 1-3 word utterances this date. 10. Pt completed basic problem solving via identifying problems in pictures with 20% accuracy independently. Pt benefited from logical, semantic, and multiple choice cues to increase accuracy to 60%.Pt identified solutions for stated problems with 40% accuracy give mod I. 11. Pt completed sequencing, organizing, planning, and visual scanning task via word search with 80% accuracy given mod-max A. Pt benefited from logical cues to scan from left to right, however pt noted to be perseverative on specific letter locations. Pt did not benefit from verbal cues ie. The a in x word is the beginning of x word. Plan Continue per POC Handoff given to primary RN. 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 -01/06 VIANEY: normal EF 59%, well-seated AVR, LA dilation. -01/07 CTH: evolution of acute R MCA CVA with petechial hemorrhage -LDL 66, A1c 6.6 -Neurology followed on medical floor -Started ASA and transitioned to eliquis 01/11/23 -Transferred to [facility] on 01/15/23 -Atorvastatin 40mg daily -Eliquis 5mg BID - Eliquis covered with a $47/month copay. Pharm can get first month free . 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 Fibrillation s/p cardioversion/MAZE/LA clipping -Norvasc 10mg daily -Eliquis 5mg BID -Tikosyn 250mcg q12 -Lasix 20mg daily -Lisinopril 10mg daily -01/19 Hospitalist team: Dc'd Lasix. Hyperlipidemia -Home med: Crestor 20mg daily -Atorvastatin 40mg daily Hypothyroidism -Levothyroxine 175mcg daily Type 2 DM with hyperglycemia -Home med: Glucophage XR 500mg BID -A1c 6.6 -Carb controlled diet -Accuchecks QID -Insulin SSI for coverage AJAY on CKD -Unclear stage. Admission on medical floor C 1.4 ->0.9 -01/14 Cr 1.6. s/p gentle hydration -01/19 Renal US: Right kidney 11 x 6 x 4.5 cm. No hydronephrosis or shadowing stone. Left kidney 10.7 x 6.5 x 5.1 cm. No hydronephrosis or shadowing stone. A 1.4 cm cyst. Prevoid and postvoid calculated bladder volumes are essentially unchanged, approximately 8 mL. -01/20 Nephrology signed off. Avoid NSAIDs. No need for diuretics; appears euvolemic. Follow up in [place]. Thrombocytopenia -Baseline plts low-normal ~150 -01/07 Plts 91 -Bleeding risk Pain management -PRN Tylenol Bladder BPH -Admission UA/cx: Neg -Bladder scans and ISC if indicated. Scans 48,33,6. -Flomax 0.4mg daily Bowels -Monitor for regular BMS -Senna-s 1 tab BID -Miralax daily H/o NAJMA -Refuses CPAP DVT prophylaxis -Eliquis 5mg BID GI prophylaxis GERD -Home med: Nexium 40mg daily -Protonix 40mg daily Nutrition -Mag Ox 400mg daily -B-12 1000mcg daily -MVI daily -Vit D 42 Obesity -BMI: 31.69 -Encourage diet modification, active lifestyle, and weight reduction. Follow-ups - [facility] - Nephrology - PCP ELOS: 01/25/2023 Equipment: Walker, rollator Time spent on counseling/coordination of care: 25 minutes Time spent with the patient: 10 minutes SUBJECTIVE: Patient denies any acute overnight events. Pt doing well. No acute issues. Eating and sleeping well. Denies pain. Therapies are going well. VSS Labs reviewed No recent imaging LBM 01/19 Bladder: continent Scheduled meds last 24hrs: Refused Miralax. Refused senna-s last night. Remaining meds taken PRN meds last 24hrs: Tylenol Temp: [97.2 F (36.2 C)-97.9 F (36.6 C)] 97.9 F (36.6 C) Heart Rate: [65-81] 81 Resp: [12-16] 16 BP: (132-147)/(54-74) 147/54 Physical Exam: General Appearance: In no apparent distress, well nourished + dysarthria. L facial asymmetry HEENT: EOMI Respiratory: No labored breathing Cardiovascular: Well perfused. Abdomen: Nontender, nondistended. Soft Musculoskeletal: No acute injury or gross deformity Skin: No rashes visualized Psychiatric: Normal mood and affect Therapy Assessments: Home Living RETIRED Type of Home: (not recorded) Home Layout: One level, Full bath on main level, Bed on main level, Stairs between floors, Work area in basement (laundry on main. house has basement and 1st floor. 1/2 bath in basement) (01/16/23932) RETIRED Bathroom Shower/Tub: (not recorded) RETIRED Bathroom Toilet: (not recorded) Bathroom Equipment: Grab bars in shower, Shower chair, Hand-held showerhead, Grab bars around toilet (01/16/23932) Bathroom Accessibility: Accessible via walker (01/16/23932) Mobility Equipment: Wheeled walker (01/16/23932) Additional Objective Details - Home Living: Pt reports that he likes to make lots of things in the basement ( model cars/trucks/semi's). Pt with expressive aphasia. Pt inconsistant with responses provided during PT evaluation versus previous consult. Pt is questionable historian. (01/16/23932) Prior Level of Function Level of Bishop - Transfers/Ambulation/Mobility: Independent with functional transfers, Independent with household ambulation, Independent with community ambulation (no device utilized) (01/16/23932) Lives With: Spouse, Son (son works 5 days a week and is unable to assist pt when working. pt reports in good health and can assist pt with needs after discharge.) (01/16/23932) Receives Help From: Family ( and son ( son assists when not at work, as needed).) (01/16/23932) Level of Bishop - Homemaking: Independent (01/16/23932) Retired: Vocational: (not recorded) RETIRED Leisure: (not recorded) Subjective Impression - Prior Function: Pt denies any falls in last 6 months. (01/16/23932) Current Level of Function Balance: RETIRED Sitting Balance - Static: (not recorded) RETIRED Sitting Balance - Dynamic: (not recorded) RETIRED Standing Balance - Static: (not recorded) RETIRED Standing Balance - Dynamic: (not recorded) Bed Mobility: Rolling: Modified independent, Head of bed flat (01/20/23 102) Supine to Sit: Modified independent, Head of bed flat (01/20/23 102) Sit to Supine: Modified independent, Head of bed flat (01/20/23 102) Transfers: Sit to Stand: Stand by assist (01/20/23 102) Bed to Chair: Contact guard assist (01/16/23932) Stand Pivot Transfers: Stand by assist, Contact guard assist (01/20/231019) Squat Pivot Transfers: (not recorded) Documentation Nurse: (none) (01/20/23 102) Gait/Locomotion: Gait Assistance: Contact guard assist (01/20/23 102) Assistive Device: (none) (01/20/231019) Distance: 200 Feet (x2 on even surfaces with 2 turns.) (01/20/231019) Pattern: step to, step through, R impaired heel strike, L impaired heel strike, R decreased step length, L decreased step length, over reliance on upper extremities, forward flexed, shuffle, R flexedknee, L flexed knee (01/20/23 1020) Weight Bearing Status: able to maintain (01/16/23932) ADL & IADL Feeding: Set-up (01/16/23729) Meal Prep: (not recorded) Grooming: Set-up, Stand by assist (Benefiting from verbal cues to locate items.) (01/16/23729) Upper Body Bathing: Stand by assist (01/16/23729) Lower Body Bathing: Stand by assist (Patient incontinent of bowel during showering. Nursing informed.) (01/16/23729) Upper Body Dressing: Stand by assist, Set-up (SBA to don overhead shirt, after set up seated at chair level.) (01/18/23732) Lower Body Dressing: Contact guard assist (SBA to thread brief and elastic pants seated with figurefour technique. CGA to stand to manage over hips with unilateral support on FWW.) (01/18/23732) Toileting: Contact guard assist (CGA standing to urinate, CGA for clothing management.) (01/19/23 1301) Speech Therapy Speech Functional Diagnosis: CVA: (not recorded) Speech/Language (Unrelated to CVA): (not recorded) Cognition (Unrelated to CVA): (not recorded) Dysphagia (Unrelated to CVA): (not recorded) Voice (Unrelated to CVA): (not recorded) * Asuncion Haile PA-C - 01/20/2023 10:32 AM EST [facility] [place] Assessment and Plan Kevin White is a 82 y.o. male patient of Moi Gibson MD with history of arthritis, back pain, CHF, COPD, coronary artery disease, diabetes, thyroid disease, GERD, anemia, hyperlipidemia, hypertension, myocardial infarction, sleep apnea, stroke. Patient initially presented with stroke likesymptoms 01/06/23, was transferred to [facility] found to have had an acute R MCACVA. Patient presented on 01/15/2023 to inpatient rehab with debility and decreased ability to complete ADLs following prolonged hospitalization. [facility] [place] by Shahrzad Odom DO for medical management. Debility Decreased ability to complete ADLs Dysphagia PT/OT/ST eval and treat Management per primary team Care management consult for discharge planning Acute R MCA CVA s/p TPA Evaluated and treated at [facility], s/p TPA Neurology recommending BP goals less than 130/80, avoid hypotension, Eliquis 5 mg BID, Lipitor 40 mg, follow up with Neurology 02/01/23 Hypertension CAD Atrial fibrillation Chronic HFpEF S/p Cardioversion 03/06/22 Continue Norvasc, lisinopril, Tikosyn, Eliquis Resume Lasix as able NIDDM2 Hemoglobin A1c 6.6 on 01/06/2023 Continue Lantus Sliding scale insulin as needed Anemia Baseline hemoglobin normal Hemoglobin currently stable at 13.4 No need for transfusion at this time, transfuse if hemoglobin drops below 8 Impaired renal function Worsened over last ~10 days, appears that kidney function was normal prior to this Unremarkable renal bladder US Holding Lasix for now Consult Nephrology BPH Continue Flomax Code Status: Full Code - Unverified Quality Measures DVT Prophylaxis: - apixaban (ELIQUIS) tablet 5 mg Adame Catheter: No Subjective No acute events noted overnight. Afebrile. Saturating well on room air. Denies complaints or needs. Review of Systems All relevant systems have been reviewed and are negative except as noted in HPI or below Objective BP 137/69 Pulse 65 Temp 97.9 F (36.6 C) (Oral) Resp 16 Ht 6' Wt 107.4 kg (236 lb 12.4 oz) SpO2 95% BMI 32.11 kg/m Physical Examination General Appearance: alert; well appearing; in no acute distress HEENT: Head- normocephalic; Eyes- EOMI, sclera anicteric; Ears- hearing intact; Nose- no nasal discharge; Throat- mucous membranes moist Cardiovascular: irregular rate and rhythm Respiratory: respirations are unlabored, on room air Neurological: normal speech; no focal findings or movement disorder noted Musculoskeletal: no significant deformity or tenderness to palpation Skin: normal coloration; no obvious rashes, lesions or skin breakdown Psych: normal mood and affect Results/Medications Reviewed 01/20/2023 10:32 AM Laboratory, Microbiology, Radiology, Cardiology, Medications, and Transcriptions * Dorothy Quijano, PT - 01/20/2023 10:20 AM EST PHYSICAL THERAPY Daily Progress Note PT Time Calculation: Start time: 1020 Stop time: 1120 Time calculation: 60 PT Individual Minutes: 60 min Therapy Precautions Therapy Precautions Orthotic Devices: No Weight Bearing Status: WFL General Rehab Precautions: Fall risk (aspiration) Balance Balance Treatment Standing Balance - Static: Stand by assist, Contact guard assist Documentation Nurse - Standing Static: (none) Standing Balance - Dynamic: Contact guard assist, Minimal assist Documentation Nurse - Standing Dynamic: (none to 1 UE support) Skilled Intervention Provided: verbal cues, tactile cues, facilitation, neuromuscular re-education For: LE management, LE positioning, attention to affected UE/LE, balance recovery Resulting in: improved activity tolerance, improved attention, improved awareness Skilled Intervention: Pt worked on stepping over 6 inch hurdles with 1-0 UE support with CGA to occasional min assist. Pt went forwards and sidestepping. pt with increased difficulty with righting reactions with higher obstacles this date. Bed Mobility Bed Mobility Rolling: Modified independent, Head of bed flat Supine to Sit: Modified independent, Head of bed flat Sit to Supine: Modified independent, Head of bed flat Documentation Nurse: bedrails Skilled Intervention Provided: monitoring patient response with activity For: LE management, LE positioning, efficient movement Resulting in: improved activity tolerance, improved balance, improved awareness Skilled Intervention: pt was also tested on moveo tilt table Transfers Transfers Sit to Stand: Stand by assist Stand Pivot Transfers: Stand by assist, Contact guard assist Documentation Nurse: (none) Skilled Intervention Provided: verbal cues, tactile cues, facilitation For: LE management, LE positioning, controlled descent Resulting in: improved activity tolerance, improved balance, improved functional independence, improved performance Functional Transfers Car Transfers: Stand by assist, Contact guard assist Skilled Intervention Provided: verbal cues, tactile cues For: LE management, LE positioning, controlled descent Resulting in: improved activity tolerance, improved balance, improved functional independence, improved performance Skilled Intervention: pt steps into vehicle Gait/Locomotion Gait / Locomotion Gait Assistance: Contact guard assist Assistive Device: (none) Distance: 200 Feet (x2 on even surfaces with 2 turns.) Rest Breaks: Yes Rest Break Position: seated Rest Break Duration: 3 minutes Additional Gait Trial 2: Yes Pattern: step to, step through, R impaired heel strike, L impaired heel strike, R decreased step length, L decreased step length, over reliance on upper extremities, forward flexed, shuffle, R flexedknee, L flexed knee Gait Loss(es) of Balance: intermittent, with dual tasks or distractions Skilled Intervention Provided: verbal cues, tactile cues, facilitation, monitoring patient responsewith activity For: attention to task, gait sequence, fall prevention Resulting in: improved activity tolerance, improved functional independence, increased insight intodeficits Exercise Exercises Skilled Intervention Provided: verbal cues, facilitation, instruction on proper technique/alignment For: achieving full ROM as tolerated, fall prevention, frequency of exercise(s) Resulting in: efficient movement, improved awareness Skilled Intervention: moveo tilt table at 15 degrees x 20 reps x 3 with bilat LEs with 2 minute restbreaks. Home Living Home Living Obtained Home Living and PLOF info from: Patient, Review of patient s medical record Unable to obtain Home Living and PLOF info on initial eval: Patient is a questionable historian Lives With: Spouse, Son (son works 5 days a week and is unable to assist pt when working. pt reports in good health and can assist pt with needs after discharge.) Type of Home: House Home Layout: One level, Full bath on main level, Bed on main level, Stairs between floors, Work area in basement (laundry on main. house has basement and 1st floor. 1/2 bath in basement) Rails on inside stairs: 2 rails Number of stairs inside home: 7 Steps to enter home: Yes Rails to enter home: 2 rails Number of stairs to enter home: 5 Bathroom Shower/Tub: Walk-in shower, Main level Bathroom Toilet: Standard Bathroom Equipment: Grab bars in shower, Shower chair, Hand-held showerhead, Grab bars around toilet Bathroom Accessibility: Accessible via walker Mobility Equipment: Wheeled walker Additional Objective Details - Home Living: Pt reports that he likes to make lots of things in the basement ( model cars/trucks/semi's). Pt with expressive aphasia. Pt inconsistant with responses provided during PT evaluation versus previous consult. Pt is questionable historian. Prior Level of Function Receives Help From: Family ( and son ( son assists when not at work, as needed).) Level of Bishop - Transfers/Ambulation/Mobility: Independent with functional transfers, Independent with household ambulation, Independent with community ambulation (no device utilized) Level of Bishop - ADLs: Independent Level of Bishop - Homemaking: Independent Driving: Patient drives Vocational: Retired Leisure: Patient enjoys word searches, [employer], and is a consistent churchgoer. Handoff given to primary RN. Exit Protocol Followed: Yes For complete objective data, detailed plan of care and patient education refer to: PT EVALUATION flow sheet, PT TREATMENT flow sheet, patient Plan of Care, Plan of Care progress note, and Patient Education. * Ani Monsivais OTA - 01/20/2023 9:15 AM EST OCCUPATIONAL THERAPY Daily Progress Note OT Time Calculation: Start time: 915 Stop time: 1015 Time calculation: 60 OT Individual Minutes: 60 min Therapy Precautions Orthotic Devices: No Weight Bearing Status: WFL General Rehab Precautions: Fall risk (aspiration) Cognition Overall Cognitive Status: Within Functional Limits Arousal/Alertness: Delayed responses to stimuli Orientation Level: Oriented X4 Executive functioning: Insight Safety Judgment: Decreased awareness of need for assistance Problem Solving: Assistance required to identify errors made Attention: Attends to quiet environment Hearing Status: WFL Social Interaction: Expressive deficit, Cooperative Functional Transfers Sit to Stand: Contact guard assist Stand Pivot Transfers: Contact guard assist (<> EOM) Documentation Nurse: wheeled walker Skilled Intervention Provided: verbal cues, facilitation, monitoring patient response with activity For: LE management, UE positioning, efficient movement, fall prevention Resulting In: improved activity tolerance, improved performance Skilled Intervention: Cues for UE placement to increase safety awareness with transfers Exercise Seated Exercises: Seated EOB with back unsupported to engage in BUE exercises with use of red theraband x15-20 reps each to increase strength and activity tolerance for ease with ADLs and functional mobility. Pt completes shoulder flexion, chest press, elbow flexion, horizontal abduciton/adduction and shoulder diagonals. Pt benefits from short rest breaks. Skilled intervention provided: verbal cues, instruction on proper technique/alignment, monitoring patient response with exercise For: achieving full ROM as tolerated, proper positioning of extremity Resulting In: efficient movement, improved functional strength/ROM Interventions Visual/Perceptual Training: Eye-hand coordination Fine Motor Training: Manipulating objects Skilled Intervention Provided: verbal cues, monitoring patient response with activity For: efficient movement, safe use of AD and/or equipment Resulting In: improved activity tolerance, improved performance Skilled Intervention: Static standing: Pt stands at raised table top with unilateral UE support to complete placing small pegs into holes to increase coordination in LUE and overall standing tolerance. Pt tolerates standing for 6:21 minutes and another 5:42 minutes. Pt picks up pegs with RUE and places with LUE with min droppage noted but overall good control with pegs. Dynamic standing: Pt stood to engage in balloon bat activity with unilateral support on fww and CGA-min A for balance. Pt tolerated standing for 1:47 and 2:05 minutes with minor LOB but CGA-Min A to correct. Pt reaches across midline and outside REGAN with poor safety awareness but benefits from verbal cues for safety with fair carryover. Home Living Obtained Home Living and PLOF info from: Patient, Review of patient s medical record Unable to obtain Home Living and PLOF info on initial eval: Patient is a questionable historian Lives With: Spouse, Son (son works 5 days a week and is unable to assist pt when working. pt reports in good health and can assist pt with needs after discharge.) Type of Home: House Home Layout: One level, Full bath on main level, Bed on main level, Stairs between floors, Work area in basement (laundry on main. house has basement and 1st floor. 1/2 bath in basement) Rails on inside stairs: 2 rails Number of stairs inside home: 7 Steps to enter home: Yes Rails to enter home: 2 rails Number of stairs to enter home: 5 Bathroom Shower/Tub: Walk-in shower, Main level Bathroom Toilet: Standard Bathroom Equipment: Grab bars in shower, Shower chair, Hand-held showerhead, Grab bars around toilet Bathroom Accessibility: Accessible via walker Mobility Equipment: Wheeled walker Additional Objective Details - Home Living: Pt reports that he likes to make lots of things in the basement ( model cars/trucks/semi's). Pt with expressive aphasia. Pt inconsistant with responses provided during PT evaluation versus previous consult. Pt is questionable historian. Prior Level of Function Receives Help From: Family ( and son ( son assists when not at work, as needed).) Level of Bishop - Transfers/Ambulation/Mobility: Independent with functional transfers, Independent with household ambulation, Independent with community ambulation (no device utilized) Level of Bishop - ADLs: Independent Level of Bishop - Homemaking: Independent Driving: Patient drives Vocational: Retired Leisure: Patient enjoys word searches, [employer], and is a consistent churchgoer. Handoff given to primary RN. Exit Protocol Followed: Yes For complete objective data, detailed plan of care and patient education refer to: OT EVALUATION flow sheet, OT TREATMENT flow sheet, patient Plan of Care, Plan of Care progress note, and Patient Education. * Anisa Luther, SUSY - 01/20/2023 7:30 AM EST Inpatient Rehab Speech Pathology Daily Note ACADEMIC SERVICES PROFESSIONAL Time Calculation: Start time: 729 Stop time: 829 Time calculation: 60 ACADEMIC SERVICES PROFESSIONAL Individual Minutes: 60 min Recommendations: Recommendations PO Recommendations: NDD diet NDD diet recommendation: Chopped/ NDD3, chopped meats, Thin liquids Barriers Returning to Prior Level of Function: Body Structure and Function: Neurologic impairment Explain Impairments: R MCA CVA Activities and Participation: Communication limitation, Swallowing limitation, Executive function limitation Explain Limitations: dysarthria, dysphagia, cognitive deficits Environmental Factors: Home situation, Family/caregiver support Explain Environmental Factors: lives at home with spouse Skilled Therapy Needs: Skilled Therapy Needs: Are Skilled Therapy Services Needed After Discharge: Yes Functional Limitations: communication deficits, decreased sequencing, decreased problem solving, impaired memory, decreased attention, dysphagia Intensity of Skilled Therapy: 2-3 days per week Anticipated Duration of Skilled Therapy: Duration 10 - 30 days Subjective Pt participated in skilled speech tx this date (60 min). Pt was seen sitting upright in chair at bedside, pt was cooperative and pleasant throughout session, no family/friends present. Objective Please see Plan of Care for current status of patient goals 1. ST Expressive - Patient will describe object function, pictures, and tasks with 90% accuracy andminimal cues 2. ST Motor Speech - Patient will use speech intelligibility strategies at conversation level with 90% accuracy and minimal cues. 3. ST Voice - Patient will perform breath support exercises for improved functional phonation with 90% accuracy and minimal cues 4. ST Oral Swallowing - Patient will perform oral motor exercises to improve strength, coordinationand function of oral musculature x 15 repetitions with minimal cues. 5. ST Swallowing - Patient will complete isometric lingual strengthening exercises x 15 repetitionswith minimal cues. 6. ST Swallow Strategies/Postures - Patient will demonstrate use of safe swallowing strategies withminimal cues. 7. ST - Diet Tolerance - Patient will tolerate upgrade of solid trials to NDD4 without overt or clinical signs or symptoms of aspiration via clinical assessment. 8. ST O-Log - Patient will score a 25 or above on two separate administrations of the O-Log. 9. ST Memory - Patient will complete memory tasks with the use of memory strategies with 90% accuracy and minimal cues. 10. ST Problem Solving - Patient will complete basic progressing to complex verbal problem solving and tasks with 90% accuracy and minimal cues. 11. ST Executive Function - Patient will complete basic sequencing, organizing, and planning tasks with 90% accuracy and minimal cues. Assessment 1. Pt completed expressive language task via writing the alphabet with 73% accuracy given max A. Ptnoted with backwards letters for D, J, P, and Z, and noted with upside down letter for V, and switched order of M and N. Pt benefited from visual cue of ACADEMIC SERVICES PROFESSIONAL written alphabet. Pt able to state names of letters with 50% accuracy and unable to identify sounds in isolation. Pt wrote name independently.Pt wrote CVC words with 80% accuracy given max verbal cues for spelling. Pt errors characterized bybackwards letters and incorrect vowels. Pt read CVC words in isolation with 100% accuracy independently, however pt unable to read 3-4 word sentences with same CVC words despite max A. Pt noted to spell words vs read them. Pt described object function with 100% accuracy given mod I and benefited from cues for elaboration and logical cueing. Pt completed divergent naming task via naming three items per category with 86% accuracy independently. Pt benefited from semantic cueing to increase accuracy to 100%. Plan Continue per POC Handoff given to primary RN. ACADEMIC SERVICES PROFESSIONAL Visit AC[employer] SERVICES PROFESSIONAL Visit Date: 01/20/23 Exit Protocol Followed: Yes Anisa Luther M.Ed [facility]-[employer] [employer] PROFESSION[facility] * Katie Cuellar RN - 01/19/2023 5:30 PM EST Spoke with pt at bedside, no family present. Pt sates it is ok to call his Anamaria to discuss dc planning. He confirms he lives home withhis , who drives and with his son Phoenix, who does work day shift - 5 hr shifts. He states his son will help as needed when he is not working. Encouraged pt to have family come in for therapies with him if [possible , prior to his planned dc date of 01/25/23. * Katie Cuellar RN - 01/19/2023 1:58 PM EST To to room to speak with pt about dc planning. Pt currently out of the room, no family present Target dc date of 01/25/23 written on white board in pt room * Danny Boo OTA - 01/19/2023 1:01 PM EST OCCUPATIONAL THERAPY Daily Progress Note OT Time Calculation: Start time: 1301 Stop time: 1401 Time calculation: 60 OT Individual Minutes: 60 min Therapy Precautions Orthotic Devices: No Weight Bearing Status: WFL General Rehab Precautions: Fall risk (aspiration) Cognition Overall Cognitive Status: Within Functional Limits Arousal/Alertness: Delayed responses to stimuli Orientation Level: Oriented X4 Executive functioning: Insight Safety Judgment: Decreased awareness of need for assistance Problem Solving: Assistance required to identify errors made Attention: Attends to quiet environment Hearing Status: WFL Social Interaction: Expressive deficit ADL Toileting: Contact guard assist (CGA standing to urinate, CGA for clothing management.) Toileting - Skilled Intervention Provided: facilitation, monitored patient's safety and tolerance Toileting - For: efficient movement, fall prevention Toileting - Resulting In: improved activity tolerance, improved overall self care Functional Mobility: Contact guard assist (CGA w/ use of FWW with no LOB.) Functional Mobility - Skilled Intervention Provided: facilitation, monitoring patient response withactivity Functional Mobility - For: efficient movement, fall prevention Functional Mobility - Resulting In: improved activity tolerance, increased initiation/participationin mobility task(s), improved performance Bed Mobility Sit to Supine: Stand by assist, Head of bed elevated Skilled Intervention Provided: verbal cues, facilitation For: efficient movement, fall prevention Resulting In: improved activity tolerance, improved performance Functional Transfers Sit to Stand: Contact guard assist Bed to Chair Transfers: Contact guard assist Stand Pivot Transfers: Contact guard assist Documentation Nurse: wheeled walker Skilled Intervention Provided: verbal cues, facilitation For: efficient movement, fall prevention Resulting In: improved activity tolerance, increased initiation/participation in mobility task(s), improved performance Interventions Visual/Perceptual Training: Scanning / Tracking Fine Motor Training: Manipulating objects Skilled Intervention Provided: verbal cues, facilitation For: efficient movement, increased participation Resulting In: improved activity tolerance, improved performance Skilled Intervention: Static standing- Bionees BITS Visual scanning; single target- user paced results with 87. 84% accuracy, with 1.38 reaction time, standing for 3 minutes. Second attempt- pt. completed visual scanning; complex array- sequencing numbers 1-65 with 92.86% accuracy, with 10.93 reaction time, standing for 8:57 minutes and then 3:09 minutes with CGA without UE support with prolong seated RB in between each attempt. Pt. reports low back pain/fatigue following prolong standing. Static standing- Static standing at elevated table top to engage in functional card game while sequencing cards by alternating from red to black in order with increased amount of time to increase independence with ADL's. Pt. Completed with increased time with ~50% accuracy. Pt. Tolerated standing for 10:42 minutes with SBA with no LOB with moderate fatigue noted. Home Living Obtained Home Living and PLOF info from: Patient, Review of patient s medical record Unable to obtain Home Living and PLOF info on initial eval: Patient is a questionable historian Lives With: Spouse, Son (son works 5 days a week and is unable to assist pt when working. pt reports in good health and can assist pt with needs after discharge.) Type of Home: House Home Layout: One level, Full bath on main level, Bed on main level, Stairs between floors, Work area in basement (laundry on main. house has basement and 1st floor. 1/2 bath in basement) Rails on inside stairs: 2 rails Number of stairs inside home: 7 Steps to enter home: Yes Rails to enter home: 2 rails Number of stairs to enter home: 5 Bathroom Shower/Tub: Walk-in shower, Main level Bathroom Toilet: Standard Bathroom Equipment: Grab bars in shower, Shower chair, Hand-held showerhead, Grab bars around toilet Bathroom Accessibility: Accessible via walker Mobility Equipment: Wheeled walker Additional Objective Details - Home Living: Pt reports that he likes to make lots of things in the basement ( model cars/trucks/semi's). Pt with expressive aphasia. Pt inconsistant with responses provided during PT evaluation versus previous consult. Pt is questionable historian. Prior Level of Function Receives Help From: Family ( and son ( son assists when not at work, as needed).) Level of Bishop - Transfers/Ambulation/Mobility: Independent with functional transfers, Independent with household ambulation, Independent with community ambulation (no device utilized) Level of Bishop - ADLs: Independent Level of Bishop - Homemaking: Independent Driving: Patient drives Vocational: Retired Leisure: Patient enjoys word searches, [employer], and is a consistent churchgoer. Handoff given to primary RN. Exit Protocol Followed: Yes For complete objective data, detailed plan of care and patient education refer to: OT EVALUATION flow sheet, OT TREATMENT flow sheet, patient Plan of Care, Plan of Care progress note, and Patient Education. 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 -01/06 VIANEY: normal EF 59%, well-seated AVR, LA dilation. -01/07 CTH: evolution of acute R MCA CVA with petechial hemorrhage -LDL 66, A1c 6.6 -Neurology followed on medical floor -Started ASA and transitioned to eliquis 01/11/23 -Transferred to [facility] on 01/15/23 -Atorvastatin 40mg daily -Eliquis 5mg BID - Eliquis covered with a $47/month copay. Pharm can get first month free . 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 Fibrillation s/p cardioversion/MAZE/LA clipping -Norvasc 10mg daily -Eliquis 5mg BID -Tikosyn 250mcg q12 -Lasix 20mg daily -Lisinopril 10mg daily -01/19 Hospitalist team: Guevara'michael Lasix. Hyperlipidemia -Home med: Crestor 20mg daily -Atorvastatin 40mg daily Hypothyroidism -Levothyroxine 175mcg daily Type 2 DM with hyperglycemia -Home med: Glucophage XR 500mg BID -A1c 6.6 -Carb controlled diet -Accuchecks QID -Insulin SSI for coverage AJAY on CKD -Unclear stage. Admission on medical floor C 1.4 ->0.9 -01/14 Cr 1.6. s/p gentle hydration -01/19 Renal US: Right kidney 11 x 6 x 4.5 cm. No hydronephrosis or shadowing stone. Left kidney 10.7 x 6.5 x 5.1 cm. No hydronephrosis or shadowing stone. A 1.4 cm cyst. Prevoid and postvoid calculated bladder volumes are essentially unchanged, approximately 8 mL. Thrombocytopenia -Baseline plts low-normal ~150 -01/07 Plts 91 -Bleeding risk Pain management -PRN Tylenol Bladder BPH -Admission UA/cx: Neg -Bladder scans and ISC if indicated. Scans 48,33,6. -Flomax 0.4mg daily Bowels -Monitor for regular BMS -Senna-s 1 tab BID -Miralax daily H/o NAJMA -Refuses CPAP DVT prophylaxis -Eliquis 5mg BID GI prophylaxis GERD -Home med: Nexium 40mg daily -Protonix 40mg daily Nutrition -Mag Ox 400mg daily -B-12 1000mcg daily -MVI daily -Vit D 42 Obesity -BMI: 31.69 -Encourage diet modification, active lifestyle, and weight reduction. ELOS: 01/25/2023 Equipment: Walker, rollator Time spent on counseling/coordination of care: 25 minutes Time spent with the patient: 10 minutes SUBJECTIVE: Patient denies any acute overnight events. VSS Labs reviewed No recent imaging LBM 01/17- incontinent Bladder: Scans 48,33,6. continent Scheduled meds last 24hrs: All meds taken PRN meds last 24hrs: Tylenol Team Conference today PT: Bed mobility standby assist. Transfers standby assist to contact-guard. Try to wear later but had issues with break management. Prefer regular walker. Ambulated 270 feet with standby to contact-guard assist. OT: Standby assist to contact-guard for self-care. Transfers contact-guard assist. More issues withbalance and safety. Speech: Hard time with writing. Continues on chopped meats with thin liquids. Tends to pocket food. RN: Continent of bowel and bladder Medical: See above CM: Discussed DC plan and date ELOS: 01/25/2023 Equipment: Walker, rollator Temp: [97.3 F (36.3 C)-97.8 F (36.6 C)] 97.8 F (36.6 C) Heart Rate: [55-76] 76 Resp: [16] 16 BP: (121-163)/(67-78) 121/70 Physical Exam: General Appearance: NAD HEENT: Normocephalic, atraumatic, EOMI Respiratory: On room air, no respiratory distress Cardiovascular: Well perfused. No BLE edema Abdomen: Nontender, nondistended. Soft Musculoskeletal: No acute injury or gross deformity Skin: No rashes visualized Psychiatric: Normal mood and affect Therapy Assessments: Home Living RETIRED Type of Home: (not recorded) Home Layout: One level, Full bath on main level, Bed on main level, Stairs between floors, Work area in basement (laundry on main. house has basement and 1st floor. 1/2 bath in basement) (01/16/23 0538) RETIRED Bathroom Shower/Tub: (not recorded) RETIRED Bathroom Toilet: (not recorded) Bathroom Equipment: Grab bars in shower, Shower chair, Hand-held showerhead, Grab bars around toilet (01/16/23932) Bathroom Accessibility: Accessible via walker (01/16/23932) Mobility Equipment: Wheeled walker (01/16/23932) Additional Objective Details - Home Living: Pt reports that he likes to make lots of things in the basement ( model cars/trucks/semi's). Pt with expressive aphasia. Pt inconsistant with responses provided during PT evaluation versus previous consult. Pt is questionable historian. (01/16/23932) Prior Level of Function Level of Bishop - Transfers/Ambulation/Mobility: Independent with functional transfers, Independent with household ambulation, Independent with community ambulation (no device utilized) (01/16/23932) Lives With: Spouse, Son (son works 5 days a week and is unable to assist pt when working. pt reports in good health and can assist pt with needs after discharge.) (01/16/23932) Receives Help From: Family ( and son ( son assists when not at work, as needed).) (01/16/23932) Level of Bishop - Homemaking: Independent (01/16/23932) Retired: Vocational: (not recorded) RETIRED Leisure: (not recorded) Subjective Impression - Prior Function: Pt denies any falls in last 6 months. (01/16/23932) Current Level of Function Balance: RETIRED Sitting Balance - Static: (not recorded) RETIRED Sitting Balance - Dynamic: (not recorded) RETIRED Standing Balance - Static: (not recorded) RETIRED Standing Balance - Dynamic: (not recorded) Bed Mobility: Rolling: Supervision, Head of bed flat (01/16/23932) Supine to Sit: Supervision, Head of bed flat (01/16/23932) Sit to Supine: Supervision, Head of bed flat (01/16/23932) Transfers: Sit to Stand: Stand by assist (01/19/23 102) Bed to Chair: Contact guard assist (01/16/23932) Stand Pivot Transfers: Stand by assist (01/19/23 102) Squat Pivot Transfers: (not recorded) Documentation Nurse: wheeled walker (and no AD) (01/19/23 102) Gait/Locomotion: Gait Assistance: Contact guard assist (01/19/231021) Assistive Device: (none) (01/19/231021) Distance: 200 Feet (x 2) (01/19/23 102) Pattern: step to, step through, L decreased stance time (01/19/231021) Weight Bearing Status: able to maintain (01/16/23932) ADL & IADL Feeding: Set-up (01/16/23729) Meal Prep: (not recorded) Grooming: Set-up, Stand by assist (Benefiting from verbal cues to locate items.) (01/16/23729) Upper Body Bathing: Stand by assist (01/16/23729) Lower Body Bathing: Stand by assist (Patient incontinent of bowel during showering. Nursing informed.) (01/16/23729) Upper Body Dressing: Stand by assist, Set-up (SBA to don overhead shirt, after set up seated at chair level.) (01/18/23732) Lower Body Dressing: Contact guard assist (SBA to thread brief and elastic pants seated with figurefour technique. CGA to stand to manage over hips with unilateral support on FWW.) (01/18/23732) Toileting: Contact guard assist (CGA to stand to urinate with unilateral support on grab bar, CGA for clothing management.) (01/18/23732) Speech Therapy Speech Functional Diagnosis: CVA: (not recorded) Speech/Language (Unrelated to CVA): (not recorded) Cognition (Unrelated to CVA): (not recorded) Dysphagia (Unrelated to CVA): (not recorded) Voice (Unrelated to CVA): (not recorded) * Dorothy Quijano, PT - 01/19/2023 10:22 AM EST PHYSICAL THERAPY Daily Progress Note PT Time Calculation: Start time: 1022 Stop time: 1122 Time calculation: 60 PT Individual Minutes: 60 min Therapy Precautions Therapy Precautions Orthotic Devices: No Weight Bearing Status: WFL General Rehab Precautions: Fall risk (aspiration) Balance Balance Treatment Standing Balance - Dynamic: Contact guard assist, Minimal assist Documentation Nurse - Standing Dynamic: (none) Skilled Intervention Provided: verbal cues, neuromuscular re-education For: LE management, LE positioning, balance recovery, attention to affected UE/LE Resulting in: improved activity tolerance, improved balance reactions, improved awareness, improvedfunctional independence Skilled Intervention: Pt stood for 3 minute intervals for ring toss with no UE support with good reaching in REGAN. Pt then worked on stepping over 1 inch hurdles with min assist with LOB multiple directions going forwards and sidestepping. Pt with increased LOB going sideways. Pt then worked on standing ball bounce with large ball with static stance and then performed with alternating LEs while bouncing ball. Pt worked on cone taps with min assist with 1-0 UE support with difficulty with left LE. Bed Mobility Bed Mobility Sit to Supine: Supervision, Head of bed elevated Documentation Nurse: (none) Skilled Intervention Provided: verbal cues, facilitation, monitoring patient response with activity For: LE management, LE positioning, energy conservation Resulting in: improved performance, improved awareness, improved balance, improved safety Skilled Intervention: pt needed back in bed for bladder scan Transfers Transfers Sit to Stand: Stand by assist Stand Pivot Transfers: Stand by assist Documentation Nurse: wheeled walker (and no AD) Skilled Intervention Provided: verbal cues, tactile cues For: LE management, LE positioning, controlled descent Resulting in: improved awareness, improved balance Skilled Intervention: cues to get close to chair before sitting and for hand placement. Pt tries topull up on walker Gait/Locomotion Gait / Locomotion Gait Assistance: Contact guard assist Assistive Device: (none) Distance: 200 Feet (x 2) Rest Breaks: Yes Rest Break Position: seated Rest Break Duration: 2 minutes Pattern: step to, step through, L decreased stance time Gait Loss(es) of Balance: intermittent, with dual tasks or distractions, multidirectional Skilled Intervention Provided: verbal cues, tactile cues, facilitation, monitoring patient responsewith activity For: attention to task, device management and safe use of device, gait technique, improved posture,weight shifting Resulting in: improved activity tolerance, improved functional independence Exercise Exercises Skilled Intervention Provided: verbal cues, instruction on proper technique/alignment For: achieving full ROM as tolerated, compensatory strategies, frequency of exercise(s) Resulting in: efficient movement, improved awareness, improved attention Skilled Intervention: Pt was on recumbent bike for 2 minutes and needed to go back to room for test. Home Living Home Living Obtained Home Living and PLOF info from: Patient, Review of patient s medical record Unable to obtain Home Living and PLOF info on initial eval: Patient is a questionable historian Lives With: Spouse, Son (son works 5 days a week and is unable to assist pt when working. pt reports in good health and can assist pt with needs after discharge.) Type of Home: House Home Layout: One level, Full bath on main level, Bed on main level, Stairs between floors, Work area in basement (laundry on main. house has basement and 1st floor. 1/2 bath in basement) Rails on inside stairs: 2 rails Number of stairs inside home: 7 Steps to enter home: Yes Rails to enter home: 2 rails Number of stairs to enter home: 5 Bathroom Shower/Tub: Walk-in shower, Main level Bathroom Toilet: Standard Bathroom Equipment: Grab bars in shower, Shower chair, Hand-held showerhead, Grab bars around toilet Bathroom Accessibility: Accessible via walker Mobility Equipment: Wheeled walker Additional Objective Details - Home Living: Pt reports that he likes to make lots of things in the basement ( model cars/trucks/semi's). Pt with expressive aphasia. Pt inconsistant with responses provided during PT evaluation versus previous consult. Pt is questionable historian. Prior Level of Function Receives Help From: Family ( and son ( son assists when not at work, as needed).) Level of Bishop - Transfers/Ambulation/Mobility: Independent with functional transfers, Independent with household ambulation, Independent with community ambulation (no device utilized) Level of Bishop - ADLs: Independent Level of Bishop - Homemaking: Independent Driving: Patient drives Vocational: Retired Leisure: Patient enjoys word searches, [employer], and is a consistent churchgoer. Handoff given to primary RN. Exit Protocol Followed: Yes For complete objective data, detailed plan of care and patient education refer to: PT EVALUATION flow sheet, PT TREATMENT flow sheet, patient Plan of Care, Plan of Care progress note, and Patient Education. * Asuncion Haile PA-C - 01/19/2023 10:12 AM EST [facility] [place] Assessment and Plan Kevin White is a 82 y.o. male patient of Moi Gibson MD with history of arthritis, back pain, CHF, COPD, coronary artery disease, diabetes, thyroid disease, GERD, anemia, hyperlipidemia, hypertension, myocardial infarction, sleep apnea, stroke. Patient initially presented with stroke likesymptoms 01/06/23, was transferred to [facility] found to have had an acute R MCACVA. Patient presented on 01/15/2023 to inpatient rehab with debility and decreased ability to complete ADLs following prolonged hospitalization. [facility] [place] by Shahrzad Odom DO for medical management. Debility Decreased ability to complete ADLs Dysphagia PT/OT/ST eval and treat Management per primary team Care management consult for discharge planning Acute R MCA CVA s/p TPA Evaluated and treated at [facility], s/p TPA Neurology recommending BP goals less than 130/80, avoid hypotension, ASA 81 mg daily, Eliquis 5 mg BID, Lipitor 40 mg, follow up with Neurology 02/01/23 Hypertension CAD Atrial fibrillation Chronic HFpEF S/p Cardioversion 03/06/22 Continue Norvasc, Lasix, lisinopril, Tikosyn, Eliquis Will send order to pharmacy at [place] to verify coverage of Eliquis Diabetes Hemoglobin A1c 6.6 on 01/06/2023 Continue Lantus Sliding scale insulin as needed Anemia Baseline hemoglobin normal Hemoglobin currently stable at 13.4 No need for transfusion at this time, transfuse if hemoglobin drops below 8 Impaired renal function Worsened over last ~10 days, appears that kidney function was normal prior to this Check renal/bladder US and urinalysis Continue to trend Hold Lasix today Consider Nephrology consult if worsening BPH Continue Flomax Code Status: Full Code - Unverified Quality Measures DVT Prophylaxis: - apixaban (ELIQUIS) tablet 5 mg Adame Catheter: No Subjective No acute events noted overnight. Afebrile. Saturating well on room air. Denies complaints or needs. Review of Systems All relevant systems have been reviewed and are negative except as noted in HPI or below Objective BP 121/70 Pulse 76 Temp 97.8 F (36.6 C) (Oral) Resp 16 Ht 6' Wt 106 kg (233 lb 11 oz) SpO2 95% BMI 31.69 kg/m Physical Examination General Appearance: alert; well appearing; in no acute distress HEENT: Head- normocephalic; Eyes- EOMI, sclera anicteric; Ears- hearing intact; Nose- no nasal discharge; Throat- mucous membranes moist Cardiovascular: irregular rate and rhythm Respiratory: lungs clear to auscultation; without wheezes, rales or rhonchi; on room air Neurological: normal speech; no focal findings or movement disorder noted Musculoskeletal: no significant deformity or tenderness to palpation Skin: normal coloration Psych: normal mood and affect Results/Medications Reviewed 01/19/2023 10:12 AM Laboratory, Microbiology, Radiology, Cardiology, Medications, and Transcriptions * Anisa Luther SLP - 01/19/2023 9:15 AM EST Inpatient Rehab Speech Pathology Daily Note [employer]IC SERVICES [employer]ESSIONAL Time Calculation: Start time: 914 Stop time: 1020 Time calculation: 65 AC[employer]IC SERVICES PROFESSIONAL Individual Minutes: 65 min Recommendations: Recommendations PO Recommendations: NDD diet NDD diet recommendation: Chopped/ NDD3, chopped meats, Thin liquids Barriers Returning to Prior Level of Function: Body Structure and Function: Neurologic impairment Explain Impairments: R MCA CVA Activities and Participation: Communication limitation, Swallowing limitation, Executive function limitation Explain Limitations: dysarthria, dysphagia, cognitive deficits Environmental Factors: Home situation, Family/caregiver support Explain Environmental Factors: lives at home with spouse Skilled Therapy Needs: Skilled Therapy Needs: Are Skilled Therapy Services Needed After Discharge: Yes Functional Limitations: communication deficits, decreased sequencing, decreased problem solving, impaired memory, decreased attention, dysphagia Intensity of Skilled Therapy: 2-3 days per week Anticipated Duration of Skilled Therapy: Duration 10 - 30 days Subjective Pt participated in skilled speech, dysphagia, and cognitive tx this date (60 min). Pt was seen sitting upright in chair at bedside, pt was cooperative and pleasant throughout session, no family/friends present. Objective Please see Plan of Care for current status of patient goals 1. ST Expressive - Patient will describe object function, pictures, and tasks with 90% accuracy andminimal cues 2. ST Motor Speech - Patient will use speech intelligibility strategies at conversation level with 90% accuracy and minimal cues. 3. ST Voice - Patient will perform breath support exercises for improved functional phonation with 90% accuracy and minimal cues 4. ST Oral Swallowing - Patient will perform oral motor exercises to improve strength, coordinationand function of oral musculature x 15 repetitions with minimal cues. 5. ST Swallowing - Patient will complete isometric lingual strengthening exercises x 15 repetitionswith minimal cues. 6. ST Swallow Strategies/Postures - Patient will demonstrate use of safe swallowing strategies withminimal cues. 7. ST - Diet Tolerance - Patient will tolerate upgrade of solid trials to NDD4 without overt or clinical signs or symptoms of aspiration via clinical assessment. 8. ST O-Log - Patient will score a 25 or above on two separate administrations of the O-Log. 9. ST Memory - Patient will complete memory tasks with the use of memory strategies with 90% accuracy and minimal cues. 10. ST Problem Solving - Patient will complete basic progressing to complex verbal problem solving and tasks with 90% accuracy and minimal cues. 11. ST Executive Function - Patient will complete basic sequencing, organizing, and planning tasks with 90% accuracy and minimal cues. Assessment 1. Pt completed verbal expression task via writing name and names of family members with 100% accuracy given max A. Pt benefited from verbal cues of written letters and cues for spelling of names. Ptnoted with difficulty identifying letters individually, but able to identify letters in words. 6. Pt seen with breakfast tray this date. Pt noted with pocketing on L of chopped solids and benefited from cue for lingual sweep to clear residue. Pt with no overt signs/symptoms concerning for laryngeal penetration or aspiration with thin liquids via single or consecutive sips. Pt accepted pills whole, one at a time with pudding with no overt signs/symptoms concerning for laryngeal penetration or aspiration. Pt noted with increased anterior loss of secretions this date as compared to date of evaluation. 11. Pt completed organization tasks via organizing grouping words into 6 categories with 25% given mod I. Pt benefited from max logical and multiple choice cues to increase accuracy to 75% accuracy. Pt noted with difficulty reading ~50% of words, however pt reporting he does not wear glasses. Pt able to verbally identify category and category member with 75% accuracy, however noted with difficulty identifying and locating category on paper. Pt demonstrated difficulty writing category member in correct location and used an x instead. Pt completed visual scanning task with 100% accuracy independently. Pt completed sequencing, planning, and organizing via transfer from chair to toilet and shantel let to chair with 100% accuracy given mod I and benefited from cues for foot placement and hand placement on chair. Plan Continue per POC Handoff given to primary RN. ACADEMIC SERVICES PROFESSIONAL Visit AC[employer]IC SERVICES PROFESSIONAL Visit Date: 01/19/23 Exit Protocol Followed: Yes Anisa Luther M.Ed [facility]-ACADEMIC SERVICES PROFESSIONAL * Cesia Poon SLP - 01/18/2023 3:32 PM EST Inpatient Rehab Speech Language Pathology Weekly Note Week Endin01/21/23 Justification of Medical Necessity and Intensity of Service: Pt admitted to Inpatient Rehab status post CVA. Intensive speech therapy is warranted to address deficits in the areas of cognition, dysphagia, communication to aid in return to independence with ADL's upon discharge. Speech Language Pathology Care Plan Goals: Problem: Communication - Impaired Goal: ST- STG Expressive- verbal description Description: ST Expressive - Patient will describe object function, pictures, and tasks with 90% accuracy and minimal cues. Outcome: Not Addressed Goal: ST- STG Motor speech- speech intelligibility strategies Description: ST Motor Speech - Patient will use speech intelligibility strategies at conversation level with 90% accuracy and minimal cues. Outcome: Not Addressed Goal: ST- STG Voice- strengthening/breath support Description: ST Voice - Patient will perform breath support exercises for improved functional phonation with 90% accuracy and minimal cues. Outcome: Not Addressed Goal: ST- LTG Motor speech- speech intelligibility strategies Description: ST Motor Speech - Patient will use speech intelligibility strategies at conversation level with no cues. Outcome: Not Addressed Problem: Swallowing - Impaired Goal: ST- STG Oral Swallowing- oral motor function Description: ST Oral Swallowing - Patient will perform oral motor exercises to improve strength, coordination and function of oral musculature x 15 repetitions with minimal cues. Outcome: Not Addressed Goal: ST- STG Oral Swallowing- lingual strength Description: ST Swallowing - Patient will complete isometric lingual strengthening exercises x 15 repetitions with minimal cues. Outcome: Not Addressed Goal: ST- STG Swallow Strategies/Postures- safe swallowing strategies Description: ST Swallow Strategies/Postures - Patient will demonstrate use of safe swallowing strategies with minimal cues. Outcome: Not Addressed Goal: ST- STG Diet Tolerance- tolerate upgraded solids Description: ST - Diet Tolerance - Patient will tolerate upgrade of solid trials to NDD4 without overt or clinical signs or symptoms of aspiration via clinical assessment. Outcome: Not Addressed Goal: ST- LTG Swallow Strategies/Postures- safe swallowing strategies Description: ST Swallow Strategies/Postures - Patient will tolerate least restrictive diet with no overt signs/symptoms concerning for laryngeal penetration or aspiration or change in pulmonary status. Outcome: Not Addressed Problem: Cognition - Impaired Goal: ST- STG O-Log Description: ST O-Log - Patient will score a 25 or above on two separate administrations of the O-Log. Outcome: Partially Met Note: Patient scored 25/30 with noted difficulty in the areas of orientation to place, date, JESSICA, time and was noted to benefit from semantic and MC cues. Goal: ST- STG Memory- memory strategies Description: ST Memory - Patient will complete memory tasks with the use of memory strategies with 90% accuracy and minimal cues. Outcome: Not Addressed Goal: ST- STG Problem Solving- verbal problem solving Description: ST Problem Solving - Patient will complete basic progressing to complex verbal problemsolving and tasks with 90% accuracy and minimal cues. Outcome: Not Addressed Goal: ST- STG Executive Function- sequencing/organization/planning Description: ST Executive Function - Patient will complete basic sequencing, organizing, and planning tasks with 90% accuracy and minimal cues. Outcome: Partially Met Note: Pt completed sequencing, reasoning, attention and organizing via sequencing 4 step written tasks w/25% acc w/mod I and benefited from min-mod A semantic and logical cueing to increase acc to 100% Will continue per POC Cesia Poon MA CCC-ACADEMIC SERVICES PROFESSIONAL * Shahrzad Odom DO - 01/18/2023 2:10 PM EST PM&R Progress note ASSESSMENT/PLAN: A: Kevin White continues to demonstrate impairments and medical need appropriate for comprehensive acute inpt rehab Debility 2/2 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 -01/06 VIANEY: normal EF 59%, well-seated AVR, LA dilation. -01/07 CTH: evolution of acute R MCA CVA with petechial hemorrhage -LDL 66, A1c 6.6 -Neurology followed on medical floor -Started ASA and transitioned to eliquis 01/11/23 -Transferred to [facility] on 01/15/23 -Atorvastatin 40mg daily -Eliquis 5mg BID - Eliquis covered with a $47/month copay. Pharm can get first month free . 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 Fibrillation s/p cardioversion/MAZE/LA clipping -Norvasc 10mg daily -Eliquis 5mg BID -Tikosyn 250mcg q12 -Lasix 20mg daily -Lisinopril 10mg daily Hyperlipidemia -Home med: Crestor 20mg daily -Atorvastatin 40mg daily Hypothyroidism -Levothyroxine 175mcg daily Type 2 DM with hyperglycemia -Home med: Glucophage XR 500mg BID -A1c 6.6 -Carb controlled diet -Accuchecks QID -Insulin SSI for coverage AJAY on CKD -Unclear stage. Admission on medical floor C 1.4 ->0.9 -01/14 Cr 1.6. s/p gentle hydration -Continue to monitor Thrombocytopenia -Baseline plts low-normal ~150 -01/07 Plts 91 -Bleeding risk Pain management -PRN Tylenol Bladder BPH -Admission UA/cx: Neg -Bladder scans and ISC if indicated. Scans 48,33,6. -Flomax 0.4mg daily Bowels -Monitor for regular BMS -Senna-s 1 tab BID -Miralax daily H/o NAJMA -Refuses CPAP DVT prophylaxis -Eliquis 5mg BID GI prophylaxis GERD -Home med: Nexium 40mg daily -Protonix 40mg daily Nutrition -Mag Ox 400mg daily -B-12 1000mcg daily -MVI daily -Vit D 42 Obesity -BMI: 31.69 -Encourage diet modification, active lifestyle, and weight reduction. Time spent on counseling/coordination of care: 25 minutes Time spent with the patient: 10 minutes SUBJECTIVE: Patient denies any acute overnight events. Pt is doing well. No complaints. Denies RAMSEY, CP, SOB, N/V. States decrease appetite. Sleeping well. Reports therapies went well today and over the weekend. VSS Labs reviewed No recent imaging LBM 12- incontinent Bladder: Scans 48,33,6. continent Scheduled meds last 24hrs: Refused Miralax yesterday. Remaining meds taken PRN meds last 24hrs: Tylenol Temp: [97.3 F (36.3 C)-98.4 F (36.9 C)] 97.8 F (36.6 C) Heart Rate: [59-67] 67 Resp: [16] 16 BP: (116-138)/(60-67) 138/67 Physical Exam: General Appearance: NAD HEENT: Normocephalic, atraumatic, EOMI Respiratory: On room air, no respiratory distress Cardiovascular: Well perfused. No BLE edema Abdomen: Nontender, nondistended. Soft Musculoskeletal: No acute injury or gross deformity Skin: No rashes visualized Psychiatric: Normal mood and affect Therapy Assessments: Home Living RETIRED Type of Home: (not recorded) Home Layout: One level, Full bath on main level, Bed on main level, Stairs between floors, Work area in basement (laundry on main. house has basement and 1st floor. 1/2 bath in basement) (01/16/23932) RETIRED Bathroom Shower/Tub: (not recorded) RETIRED Bathroom Toilet: (not recorded) Bathroom Equipment: Grab bars in shower, Shower chair, Hand-held showerhead, Grab bars around toilet (01/16/23932) Bathroom Accessibility: Accessible via walker (01/16/23932) Mobility Equipment: Wheeled walker (01/16/23932) Additional Objective Details - Home Living: Pt reports that he likes to make lots of things in the basement ( model cars/trucks/semi's). Pt with expressive aphasia. Pt inconsistant with responses provided during PT evaluation versus previous consult. Pt is questionable historian. (01/16/23932) Prior Level of Function Level of Bishop - Transfers/Ambulation/Mobility: Independent with functional transfers, Independent with household ambulation, Independent with community ambulation (no device utilized) (01/16/23932) Lives With: Spouse, Son (son works 5 days a week and is unable to assist pt when working. pt reports in good health and can assist pt with needs after discharge.) (01/16/23932) Receives Help From: Family ( and son ( son assists when not at work, as needed).) (01/16/23932) Level of Bishop - Homemaking: Independent (01/16/23932) Retired: Vocational: (not recorded) RETIRED Leisure: (not recorded) Subjective Impression - Prior Function: Pt denies any falls in last 6 months. (01/16/23932) Current Level of Function Balance: RETIRED Sitting Balance - Static: (not recorded) RETIRED Sitting Balance - Dynamic: (not recorded) RETIRED Standing Balance - Static: (not recorded) RETIRED Standing Balance - Dynamic: (not recorded) Bed Mobility: Rolling: Supervision, Head of bed flat (01/16/23932) Supine to Sit: Supervision, Head of bed flat (01/16/23932) Sit to Supine: Supervision, Head of bed flat (01/16/23932) Transfers: Sit to Stand: Contact guard assist (01/16/23932) Bed to Chair: Contact guard assist (01/16/23932) Stand Pivot Transfers: Contact guard assist (01/16/23932) Squat Pivot Transfers: (not recorded) Documentation Nurse: (gait belt) (01/16/23932) Gait/Locomotion: Gait Assistance: Contact guard assist (01/18/231121) Assistive Device: wheeled walker (01/18/231121) Distance: 270 Feet (on even surfaces with 2 turns.) (01/18/231121) Pattern: R decreased step length, L decreased step length, L impaired heel strike, decreased arm swing, trendelenburg (intermittant shuffling to left le) (01/16/23932) Weight Bearing Status: able to maintain (01/16/23932) ADL & IADL Feeding: Set-up (01/16/23729) Meal Prep: (not recorded) Grooming: Set-up, Stand by assist (Benefiting from verbal cues to locate items.) (01/16/23729) Upper Body Bathing: Stand by assist (01/16/23729) Lower Body Bathing: Stand by assist (Patient incontinent of bowel during showering. Nursing informed.) (01/16/23729) Upper Body Dressing: Stand by assist, Set-up (SBA to don overhead shirt, after set up seated at chair level.) (01/18/23732) Lower Body Dressing: Contact guard assist (SBA to thread brief and elastic pants seated with figurefour technique. CGA to stand to manage over hips with unilateral support on FWW.) (01/18/23732) Toileting: Contact guard assist (CGA to stand to urinate with unilateral support on grab bar, CGA for clothing management.) (01/18/23732) Speech Therapy Speech Functional Diagnosis: CVA: (not recorded) Speech/Language (Unrelated to CVA): (not recorded) Cognition (Unrelated to CVA): (not recorded) Dysphagia (Unrelated to CVA): (not recorded) Voice (Unrelated to CVA): (not recorded) * Cesia Poon, SUSY - 01/18/2023 1:00 PM EST Inpatient Rehab Speech Pathology Daily Note [employer]IC SERVICES PROFESSIONAL Time Calculation: Start time: 1300 Stop time: 1400 Time calculation: 60 ACADEMIC SERVICES PROFESSIONAL Individual Minutes: 60 min Recommendations: Recommendations PO Recommendations: NDD diet NDD diet recommendation: Chopped/ NDD3, chopped meats, Thin liquids Barriers Returning to Prior Level of Function: Body Structure and Function: Neurologic impairment Explain Impairments: R MCA CVA Activities and Participation: Communication limitation, Swallowing limitation, Executive function limitation Explain Limitations: dysarthria, dysphagia, cognitive deficits Environmental Factors: Home situation, Family/caregiver support Explain Environmental Factors: lives at home with spouse Skilled Therapy Needs: Skilled Therapy Needs: Are Skilled Therapy Services Needed After Discharge: Yes Functional Limitations: communication deficits, decreased sequencing, decreased problem solving, impaired memory, decreased attention, dysphagia Intensity of Skilled Therapy: 2-3 days per week Anticipated Duration of Skilled Therapy: Duration 10 - 30 days Subjective Pt participated in skilled cognitive tx this date (60 min). Pt was seen sitting upright in WC in the speech room, pt was cooperative and pleasant throughout session, no family/friends present. Objective Please see Plan of Care for current status of patient goals 1. ST Expressive - Patient will describe object function, pictures, and tasks with 90% accuracy andminimal cues 2. ST Motor Speech - Patient will use speech intelligibility strategies at conversation level with 90% accuracy and minimal cues. 3. ST Voice - Patient will perform breath support exercises for improved functional phonation with 90% accuracy and minimal cues 4. ST Oral Swallowing - Patient will perform oral motor exercises to improve strength, coordinationand function of oral musculature x 15 repetitions with minimal cues. 5. ST Swallowing - Patient will complete isometric lingual strengthening exercises x 15 repetitionswith minimal cues. 6. ST Swallow Strategies/Postures - Patient will demonstrate use of safe swallowing strategies withminimal cues. 7. ST - Diet Tolerance - Patient will tolerate upgrade of solid trials to NDD4 without overt or clinical signs or symptoms of aspiration via clinical assessment. 8. ST O-Log - Patient will score a 25 or above on two separate administrations of the O-Log. 9. ST Memory - Patient will complete memory tasks with the use of memory strategies with 90% accuracy and minimal cues. 10. ST Problem Solving - Patient will complete basic progressing to complex verbal problem solving and tasks with 90% accuracy and minimal cues. 11. ST Executive Function - Patient will complete basic sequencing, organizing, and planning tasks with 90% accuracy and minimal cues. Assessment 8. The Cognitive Log (Cog-Log) is designed to be a quick quantitative measure of cognition for use at bedside with rehabilitation patients. It is intended for individuals who have achieved consistentaccurate orientation, such as measured by the Orientation Log (O-Log). The Cog-Log can be used to document cognitive progress on a daily basis, in the areas of immediate memory, reasoning, thought organization and attention. All items are scored from 0 to 3 for a total possible score of 30, which can be graphed for quick reference. Patient scored 25/30 this date. Patient with noted difficulty in the areas of orientation to place, date, JESSICA, time and was noted to benefit from semantic and MC cues. 11. Pt completed sequencing, reasoning, attention and organizing via sequencing 4 step written tasks w/25% acc w/mod I and benefited from min-mod A semantic and logical cueing to increase acc to 100% Remainder of CLQT completed, results are as follows: The Cognitive Linguistic Quick Test (CLQT) assesses the relative status of five cognitive domains, (attention, memory, language, executive functions, and visuospatial skills in adults with known or suspected neurological dysfunction. The CLQT provide an overall measure of cognitive-linguistic function and may be used to identify an individual's cognitive strengths and weaknesses. The tests yieldsinformation that can identify domain-specific strengths that may be used to compensate for compromised cognitive areas. Attention: score 54/215, severity rating Moderate Memory: score 95/185, severity rating Moderate Executive Functioning: score 8/40, severity rating Moderate Language: score 22/37, severity rating Moderate Visuospatial Skills: score 24/105, severity rating Moderate Clock Drawing: score 11/13, severity rating WFL Composite Severity Score: score 2.4/4.0, severity rating Moderate Plan Will continue per POC Handoff given to primary RN. ACADEMIC SERVICES PROFESSIONAL Visit AC[employer]IC SERVICES PROFESSIONAL Visit Date: 01/16/23 Exit Protocol Followed: Yes Cesia Poon MA [facility]-ACADEMIC SERVICES PROFESSIONAL * Asuncion Haile PA-C - 01/18/2023 11:43 AM EST [facility] [place] Assessment and Plan Kevin White is a 82 y.o. male patient of Moi Gibson MD with history of arthritis, back pain, CHF, COPD, coronary artery disease, diabetes, thyroid disease, GERD, anemia, hyperlipidemia, hypertension, myocardial infarction, sleep apnea, stroke. Patient initially presented with stroke likesymptoms 01/06/23, was transferred to [facility] found to have had an acute R MCACVA. Patient presented on 01/15/2023 to inpatient rehab with debility and decreased ability to complete ADLs following prolonged hospitalization. [facility] [place] by Shahrzad Odom DO for medical management. Debility Decreased ability to complete ADLs Dysphagia PT/OT/ST eval and treat Management per primary team Care management consult for discharge planning Acute R MCA CVA s/p TPA Evaluated and treated at [facility], s/p TPA Neurology recommending BP goals less than 130/80, avoid hypotension, ASA 81 mg daily, Eliquis 5 mg BID, Lipitor 40 mg, follow up with Neurology 02/01/23 Hypertension CAD Atrial fibrillation Chronic HFpEF S/p Cardioversion 03/06/22 Continue Norvasc, Lasix, lisinopril, Tikosyn, Eliquis Will send order to pharmacy at [place] to verify coverage of Eliquis Diabetes Hemoglobin A1c 6.6 on 01/06/2023 Continue Lantus Sliding scale insulin as needed Anemia Baseline hemoglobin normal Hemoglobin currently stable at 13.4 No need for transfusion at this time, transfuse if hemoglobin drops below 8 CKD Baseline creatinine around 1.4 Currently at baseline BPH Continue Flomax Code Status: Full Code - Unverified Quality Measures DVT Prophylaxis: - apixaban (ELIQUIS) tablet 5 mg Adame Catheter: No Subjective No acute events noted overnight. Afebrile. Saturating well on room air. Denies complaints or needs. Review of Systems All relevant systems have been reviewed and are negative except as noted in HPI or below Objective BP 138/67 Pulse 67 Temp 97.8 F (36.6 C) (Oral) Resp 16 Ht 6' Wt 106 kg (233 lb 11 oz) SpO2 96% BMI 31.69 kg/m Physical Examination General Appearance: alert; well appearing; in no acute distress HEENT: Head- normocephalic; Eyes- EOMI, sclera anicteric; Ears- hearing intact; Nose- no nasal discharge; Throat- mucous membranes moist Cardiovascular: regular rate and rhythm Respiratory: lungs clear to auscultation; without wheezes, rales or rhonchi; on room air Abdomen: soft, non-tender, non-distended; positive bowel sounds Neurological: normal speech; no focal findings or movement disorder noted Musculoskeletal: no significant deformity or tenderness to palpation Skin: normal coloration; left elbow wound Psych: normal mood and affect Results/Medications Reviewed 01/18/2023 11:43 AM Laboratory, Microbiology, Radiology, Cardiology, Medications, and Transcriptions * Dorothy Quijano, PT - 01/18/2023 11:22 AM EST PHYSICAL THERAPY Weekly Progress Note PT Time Calculation: Start time: 1122 Stop time: 1222 Time calculation: 60 PT Individual Minutes: 60 min Goals: Problem: Mobility - Impaired Goal: PT- LTG bed mobility Description: PT - Patient will perform bed mobility with modified independence to improve functional mobility and safety. Outcome: Not Met Note: Supervision with cues Goal: PT- LTG stand-pivot transfer Description: PT - Patient will perform stand-pivot transfer with modified independence , supervision with or without appropriate device to improve functional mobility and safety. Outcome: Partially Met Note: SBA/CGA with rollator or RW with cues for hand placement and safety with rollator brakes Goal: PT- LTG car transfer Description: PT - Patient will perform car transfer with modified independence , supervision to improve functional mobility and safety. Outcome: Not Met Note: Superviison/ CGA Goal: PT- LTG dynamic balance Description: PT - Patient will improve MARSHALL score from 31/56 to >45/56 to improve functional mobility and safety and decrease fall risk. Outcome: Not Addressed Note: NT since eval Goal: PT- LTG ambulation Description: PT - Patient will ambulate 300 feet with or without appropriate device with modified independence , supervision to improve functional mobility and safety. Outcome: Not Met Note: 270 ft with RW and SBA/CGA with RW/ rollator with increased cues for technique Goal: PT- LTG stair climbing Description: PT - Patient will ascend and descend 7 stairs with reciprocal technique with 2 rails with supervision to improve functional mobility and safety. Outcome: Not Met Note: 12 steps with 1-2 HR and CGA and cues for safety. Goal: PT- LTG mobility other Description: PT- Patient will be able to complete TUG in < 12 seconds with supervision/ modifiedindependence with or without appropriate device to decrease fall risk with functional mobility. Outcome: Not Addressed Problem: Impaired Strength Goal: PT- STG strengthening Description: PT - Patient will complete left hip knee ankle home strengthening exercise program independently in preparation for function. Outcome: Partially Met Note: Pt with supervision and cues for technique. Problem: Mobility - Impaired Goal: PT- LTG wheelchair management Description: PT - Patient will propel and manage wheelchair 150 feet on even and uneven surfaces with independence to improve functional mobility and safety. Outcome: Not Addressed Note: NT since eval going 252 ft with supervision. Pt has made minimal progress towards his goals due to just being evaluated, but is partially meeting them. he has gained strength and independence in all areas of mobility. Pt is limited at this timedue to pain, strength, and endurance. he will need to work more on his stairs for home going. Family/caregiver training will need completed. he will need to also work on his standing balance for tasks at home. Cont with PT POC. Therapy Precautions Therapy Precautions Orthotic Devices: No Weight Bearing Status: WFL General Rehab Precautions: Fall risk (aspiration) Balance Bed Mobility Transfers Transfers Sit to Stand: Stand by assist, Contact guard assist Stand Pivot Transfers: Stand by assist, Contact guard assist Documentation Nurse: wheeled walker Skilled Intervention Provided: verbal cues, tactile cues, facilitation, graded task by elevating height of sitting surface For: LE management, LE positioning, controlled descent Resulting in: improved activity tolerance, improved balance, improved functional independence, improved performance Gait/Locomotion Gait / Locomotion Gait Assistance: Contact guard assist Assistive Device: wheeled walker Distance: 270 Feet (on even surfaces with 2 turns.) Rest Breaks: Yes Rest Break Position: seated Rest Break Duration: 2 minutes Additional Gait Trial 2: Yes Gait Assistance Trial 2: Contact guard assist, Minimal assist Assistive Device Trial 2: (none) Distance Trial 2: 100 Rest Breaks Trial 2: Yes Rest Break Position Trial 2: seated Additional Gait Trial 3: Yes Gait Assistance Trial 3: Stand by assist, Contact guard assist Assistive Device Trial 3: rollator Distance Trial 3: 200 Stair Management Technique: two rails, L rail up/R rail down, step-to pattern, forwards Stair Management Assistance: Contact guard assist Number of Stairs: 12 (6 inch) Skilled Intervention Provided: verbal cues, tactile cues, monitoring patient response with activity, facilitation For: attention to task, device management and safe use of device, fall prevention, gait sequence, improved posture Resulting in: improved activity tolerance, improved functional independence, increased insight intodeficits Skilled Intervention: Pt was 98% on room after walk without AD Exercise Exercises Seated Exercises: x 20 reps with 2# and use of green T-band with review of HEP. pictorial HEP given. pt will need supervision for these Skilled Intervention Provided: tactile cues, verbal cues, facilitation, instruction on proper technique/alignment For: achieving full ROM as tolerated, fall prevention, frequency of exercise(s) Resulting in: efficient movement, improved awareness, improved functional strength/ROM, improved independence with HEP Home Living Home Living Obtained Home Living and PLOF info from: Patient, Review of patient s medical record Unable to obtain Home Living and PLOF info on initial eval: Patient is a questionable historian Lives With: Spouse, Son (son works 5 days a week and is unable to assist pt when working. pt reports in good health and can assist pt with needs after discharge.) Type of Home: House Home Layout: One level, Full bath on main level, Bed on main level, Stairs between floors, Work area in basement (laundry on main. house has basement and 1st floor. 1/2 bath in basement) Rails on inside stairs: 2 rails Number of stairs inside home: 7 Steps to enter home: Yes Rails to enter home: 2 rails Number of stairs to enter home: 5 Bathroom Shower/Tub: Walk-in shower, Main level Bathroom Toilet: Standard Bathroom Equipment: Grab bars in shower, Shower chair, Hand-held showerhead, Grab bars around toilet Bathroom Accessibility: Accessible via walker Mobility Equipment: Wheeled walker Additional Objective Details - Home Living: Pt reports that he likes to make lots of things in the basement ( model cars/trucks/semi's). Pt with expressive aphasia. Pt inconsistant with responses provided during PT evaluation versus previous consult. Pt is questionable historian. Prior Level of Function Receives Help From: Family ( and son ( son assists when not at work, as needed).) Level of Bishop - Transfers/Ambulation/Mobility: Independent with functional transfers, Independent with household ambulation, Independent with community ambulation (no device utilized) Level of Bishop - ADLs: Independent Level of Bishop - Homemaking: Independent Driving: Patient drives Vocational: Retired Leisure: Patient enjoys word searches, [employer]'s, and is a consistent churchgoer. Handoff given to primary RN. Exit Protocol Followed: Yes For complete objective data, detailed plan of care and patient education refer to: PT EVALUATION flow sheet, PT TREATMENT flow sheet, patient Plan of Care, Plan of Care progress note, and Patient Education. * Aaron Jailene Veronica, RD - 01/18/2023 10:54 AM EST Nutrition Care Initial Assessment Reason for visit: Nursing Referral for decreased po intakes Nutrition Diagnosis: Predicted inadequate energy intake related to pt report of decreased appetite as evidenced by assume intakes will not meet EEN's. Nutrition Intervention/Prescription: Continue Diet Modify Oral Nutrition Supplement Diet: CHO consistent 75gm CHO/meal, Per ST- Chopped/NDD3 Oral nutrition supplement: NSA Mighty Shakes TID (vary flavors) Nutrition Goals: PO intake > 75% most meals x next 6 days Nutrition Education: RDN encouraged po Assessment: Admit dx/Pertinent clinical information: Pt admitted to [facility]. [facility]. Past Medical History: Diagnosis Date Arthritis Back pain CHF (congestive heart failure) (HCC) COPD (chronic obstructive pulmonary disease) (HCC) Coronary artery disease Diabetes mellitus (HCC) Diabetes mellitus, type 2 (HCC) Disease of thyroid gland GERD (gastroesophageal reflux disease) Hernia of abdominal wall Hyperlipidemia Hypertension Myocardial infarction (HCC) Sleep apnea, obstructive refuses to use c-pap Stroke (HCC) Height: 6' Current weight: 106 kg (233 lb 11 oz) BMI Body mass index is 31.69 kg/m . Edema (documented by nursing): non-pitting generalized and B/L LE Weight hx: Pt thinks has lost 3# recently. Wt Readings from Last 5 Encounters: 01/17/23 106 kg (233 lb 11 oz) 01/12/23 107.8 kg (237 lb 10.5 oz) 01/05/23 111.6 kg (246 lb) 06/25/22 112.9 kg (249 lb) 04/15/22 115.1 kg (253 lb 12.8 oz) Current diet order: CHO consistent 75gm CHO/meal, Per ST- Chopped/NDD3 Current oral nutrition supplement: NSA Mighty Shakes once daily (vanilla) Recent intake: fair/good overall. Current intake Likely does not meet estimated needs. Patient/family comments: Per pt- does not have a good appetite, is not hungry. Likes the supplement, agrees to receive TID. Difficulty Chewing/Swallowing: Speech following Skin Integrity: wound on elbow GI Function: LBM 01/17 Physical Appearance: no signs or symptoms of malnutrition Labs: Recent Labs 01/18/23 0718 NA 136 K 4.8 BICARB 27 CL 105 GLUCOSE 134* BUN 22 CREATININE 1.45* A1C 6.6 this month Scheduled Meds: amLODIPine 10 mg Oral Daily apixaban 5 mg Oral BID atorvastatin 40 mg Oral Nightly cyanocobalamin 1,000 mcg Oral Daily dofetilide 250 mcg Oral Q12H GENIE FLUoxetine 20 mg Oral Daily furosemide 20 mg Oral Daily lispro insulin 0-15 Units Subcutaneous at bedtime insulin lispro 0-30 Units Subcutaneous TID AC levothyroxine 175 mcg Oral Daily lisinopriL 10 mg Oral Daily with lunch magnesium oxide 400 mg Oral Daily melatonin 5 mg Oral Nightly multivitamin 1 tablet Oral Daily nystatin 500,000 Units Oral 4x daily pantoprazole 40 mg Oral Daily polyethylene glycol 17 g Oral Daily senna-docusate 1 tablet Oral BID sodium chloride (PF) 5 mL Intravenous Q8H GENIE tamsulosin 0.4 mg Oral After evening meal Continuous Infusions: sodium chloride 0.9 % Needs- 2300kcals (25kcals/kg). adjbw Protein- 90gms (1gm/kg). adjbw Will continue to follow. Jailene Walker RDN, LD Dietitian's Office [phone] * Danny Boo OTA - 01/18/2023 7:33 AM EST OCCUPATIONAL THERAPY weekly Progress Note OT Time Calculation: Start time: 732 Stop time: 832 Time calculation: 60 OT Individual Minutes: 60 min Therapy Precautions Orthotic Devices: No Weight Bearing Status: WFL General Rehab Precautions: Fall risk (aspiration) Cognition Overall Cognitive Status: Within Functional Limits Arousal/Alertness: Delayed responses to stimuli Orientation Level: Oriented X4 Executive functioning: Insight Safety Judgment: Decreased awareness of need for assistance Problem Solving: Assistance required to identify errors made Attention: Attends to quiet environment Hearing Status: WFL Social Interaction: Expressive deficit ADL Upper Body Dressing: Stand by assist, Set-up (SBA to don overhead shirt, after set up seated at chair level.) Upper Body Dressing - Skilled Intervention Provided: verbal cues, facilitation, monitored patient'ssafety & tolerance Upper Body Dressing - For: efficient movement, fall prevention Upper Body Dressing - Resulting In: improved activity tolerance, improved overall self care Lower Body Dressing: Contact guard assist (SBA to thread brief and elastic pants seated with figurefour technique. CGA to stand to manage over hips with unilateral support on FWW.) Lower Body Dressing - Skilled Intervention Provided: verbal cues, facilitation, monitored patient'ssafety & tolerance Lower Body Dressing - For: efficient movement, fall prevention Lower Body Dressing - Resulting In: improved activity tolerance, improved overall self care Toileting: Contact guard assist (CGA to stand to urinate with unilateral support on grab bar, CGA for clothing management.) Toileting - Skilled Intervention Provided: facilitation, monitored patient's safety and tolerance Toileting - For: efficient movement, fall prevention Toileting - Resulting In: improved activity tolerance, improved participation in ADL task Functional Mobility: Contact guard assist (CGA within a short household distance with use of FWW kayley fast pace with cueing to decrease pace to improve safety awareness.) Functional Mobility - Skilled Intervention Provided: facilitation, monitoring patient response withactivity Functional Mobility - For: efficient movement, fall prevention Functional Mobility - Resulting In: improved activity tolerance, improved performance Skilled Intervention: Footwear: SBA to don/doff bilateral socks with increased time with figure four technique. Functional Transfers Sit to Stand: Contact guard assist Stand Pivot Transfers: Contact guard assist (<> EOM) Documentation Nurse: wheeled walker Skilled Intervention Provided: verbal cues, facilitation For: efficient movement, fall prevention Resulting In: improved activity tolerance, increased initiation/participation in mobility task(s), improved performance Skilled Intervention: Cueing for UE placement to increase safety awareness. Exercise Seated Exercises: Patient sat unsupported on EOM to engage in BUE strengthening exercises with moderate (red) theraband x10 in shoulder flexion, abduction/adduction, elbow flexion/extension, tricep extension and chest press. Pt. required mod-max verbal and visual cueing to complete each exericses to ensure proper technique with poor carryover. Will provide patient with HEP at a later date. Skilled intervention provided: verbal cues, facilitation For: efficient movement, fall prevention Resulting In: efficient movement, improved functional strength/ROM Interventions Fine Motor Training: Manipulating objects Skilled Intervention Provided: verbal cues, facilitation, monitoring patient response with activity For: efficient movement, increased participation Resulting In: improved activity tolerance, increased initiation/participation in mobility task(s), improved performance Skilled Intervention: Static standing- static standing at elevated table top to engage in functional coordination task, bilaterally engage in nut/bolt activity with increased time secondary to difficulty sequencing task. Pt. Tolerated standing for 5:26 minutes with CGA with no LOB, pt. Does report minimal low back fatigue/pain following prolong standing. Home Living Obtained Home Living and PLOF info from: Patient, Review of patient s medical record Unable to obtain Home Living and PLOF info on initial eval: Patient is a questionable historian Lives With: Spouse, Son (son works 5 days a week and is unable to assist pt when working. pt reports in good health and can assist pt with needs after discharge.) Type of Home: House Home Layout: One level, Full bath on main level, Bed on main level, Stairs between floors, Work area in basement (laundry on main. house has basement and 1st floor. 1/2 bath in basement) Rails on inside stairs: 2 rails Number of stairs inside home: 7 Steps to enter home: Yes Rails to enter home: 2 rails Number of stairs to enter home: 5 Bathroom Shower/Tub: Walk-in shower, Main level Bathroom Toilet: Standard Bathroom Equipment: Grab bars in shower, Shower chair, Hand-held showerhead, Grab bars around toilet Bathroom Accessibility: Accessible via walker Mobility Equipment: Wheeled walker Additional Objective Details - Home Living: Pt reports that he likes to make lots of things in the basement ( model cars/trucks/semi's). Pt with expressive aphasia. Pt inconsistant with responses provided during PT evaluation versus previous consult. Pt is questionable historian. Prior Level of Function Receives Help From: Family ( and son ( son assists when not at work, as needed).) Level of Bishop - Transfers/Ambulation/Mobility: Independent with functional transfers, Independent with household ambulation, Independent with community ambulation (no device utilized) Level of Bishop - ADLs: Independent Level of Bishop - Homemaking: Independent Driving: Patient drives Vocational: Retired Leisure: Patient enjoys word searches, crossword's, and is a consistent churchgoer. Justification of Medical Necessity and Intensity of Service: Pt would benefit from skilled OT services in this inpatient rehabilitation facility with a multidisciplinary team approach to address the above-listed deficits/education needs in order to maximize independence with ADLs/IADLs upon discharge home. Pt wants to return home with family assist and has good potential for success in this environment to increase independence, safety, and quality of life after participating in intense OT. Handoff given to primary RN. Exit Protocol Followed: Yes For complete objective data, detailed plan of care and patient education refer to: OT EVALUATION flow sheet, OT TREATMENT flow sheet, patient Plan of Care, Plan of Care progress note, and Patient Education. Associated attestation - Kassidy Pierre OT - 01/18/2023 4:05 PM EST Goals Problem: Self-care Deficit Goal: OT- LTG feeding Description: OT - Patient will complete self-feeding with modified independence to improve self care function. Outcome: Not Addressed Goal: OT- LTG grooming Description: OT - Patient will complete grooming standing at the sink with modified independence toimprove self care function. Outcome: Not Addressed Goal: OT- LTG UB dressing Description: OT - Patient will complete UB/LB dressing, which would include gathering clothing fromcloset, with modified independence to improve self care function. Outcome: Partially Met Note: SBA for UBD, CGA for LBD Goal: OT- LTG UB bathing Description: OT - Patient will complete UB/LB showering with modified independence to improve self care function. Outcome: Not Addressed Goal: OT- LTG home management Description: OT - Patient will tolerate at least 8-10 minutes of static standing to complete home management with modified independence to improve self care function. Outcome: Not Addressed Problem: Impaired Strength Goal: OT- LTG Strength Other Description: OT- Patient will tolerate at least 5-8 minutes of sustained UB AROM/ strengthening therapeutic exercises seated/standing to improve functional strength for safe DME management and ADL performance. Outcome: Partially Met Note: Theraband exercises Problem: Cognition - Impaired Goal: OT- LTG sequencing Description: OT - Patient will sequence 3 or more step task with modified independence in preparation for ADL's. Outcome: Partially Met Problem: Impaired Neurologic Function Goal: OT- LTG dynamic sitting balance Description: OT - Patient will complete sustained dynamic sitting balance activity for at least 15 minutes with modified independence in preparation for ADL's. Outcome: Partially Met Goal: OT- LTG dynamic standing balance Description: OT - Patient will tolerate at least 8-10 minutes of sustained dynamic standing/functional mobility while engaged in ADL/therapeutic activities/exercises with modified independence in preparation for ADL's. Outcome: Partially Met Note: 5 minutes with CGA for static standing balance Goal: OT- LTG in-hand manipulation/coordination Description: OT - Patient will participate in various neuromuscular reeducation/therapeutic activity/exercises to improve bimanual coordination which would include reaction time and functional strength to improve efficiency with ADL performance as evidenced by at least making 10% improvement in hand function outcome measures. Outcome: Not Met Summary: Pt is making fair progress towards OT goals. Pt has demonstrated improvements in ADL's andtransfers. Barriers to discharge include balance deficits. Plan to address caregiver training priorto date of discharge for improved safety at home. Also need to prioritize balance and IADL's in therapy sessions. Continue to address goals in POC. * Tammy Cadena, DRAFTER TOPOGRAPHICAL - 01/17/2023 11:16 AM EST [facility] Assessment and Plan Kevin White is a 82 y.o. male patient of Moi Gibson MD with history of arthritis, back pain, CHF, COPD, coronary artery disease, diabetes, thyroid disease, GERD, anemia, hyperlipidemia, hypertension, myocardial infarction, sleep apnea, stroke. Patient initially presented with stroke likesymptoms 01/06/23, was transferred to [facility] found to have had an acute R MCACVA. Patient presented on 01/15/2023 to inpatient rehab with debility and decreased ability to complete ADLs following prolonged hospitalization. [facility] by Shahrzad Odom DO for medical management. Debility Decreased ability to complete ADLs Dysphagia PT/OT/ST eval and treat Management per primary team Care management consult for discharge planning Acute R MCA CVA s/p TPA Evaluated and treated at [facility], s/p TPA Neurology recommending BP goals less than 130/80, avoid hypotension, ASA 81 mg daily, Eliquis 5 mg BID, Lipitor 40 mg, follow up with Neurology 02/01/23 Hypertension CAD Atrial fibrillation Chronic HFpEF S/p Cardioversion 03/06/22 Continue Norvasc, Lasix, lisinopril, Tikosyn, Eliquis Will need order sent to pharmacy Wednesday to verify coverage of Eliquis Diabetes Hemoglobin A1c 6.6 on 01/06/2023 Continue Lantus Sliding scale insulin as needed Anemia Baseline hemoglobin normal Hemoglobin currently stable at 13.1 No need for transfusion at this time, transfuse if hemoglobin drops below 8 CKD Baseline creatinine around 1.4 Currently at baseline BPH Continue Flomax Quality Measures DVT Prophylaxis: eliquis Adame Catheter: absent Subjective Patient reports some mild shortness of breath. Denies any cough, oxygen saturations 95% on room air. Objective BP (!) 117/49 Pulse 61 Temp 98.2 F (36.8 C) Resp 14 Ht 6' Wt 106 kg (233 lb 11 oz) BnI842% BMI 31.69 kg/m Physical Examination General Appearance: alert; chronically ill appearing; in no acute distress HEENT: Head- normocephalic; Eyes- EOMI, sclera anicteric; Throat- mucous membranes moist Cardiovascular: regular rate and rhythm; normal S1, S2; no murmurs, rubs, clicks or gallops; peripheral edema present Respiratory: lungs clear to auscultation; without wheezes, rales or rhonchi; on room air Abdomen: soft, non-tender, non-distended Neurological: oriented x 3; normal speech; no focal findings or movement disorder noted Musculoskeletal: no significant deformity or tenderness to palpation Skin: normal coloration Psych: normal mood and affect Daisy France 01/17/2023 10:03 AM EST Spiritual Care Progress Note Completed by: Daisy Rivers Person(s) Present During this Visit: Patient Time Spent in Direct Patient Care: 15 Narrative: Follow-up visit. Met with the ptKevin Souza. Introduced self and role. He did not express any emotional/spiritual needs at this time but appreciated business analysis consultant support. This business analysis consultant provided information about Pastoral Care services and how to contact a business analysis consultant. Pastoral Care team will remain availableto support patient and family PRN. 01/17/23 1003 Visit Background Visit With Patient Visit By Staff Broadcast Maintenance Engineer Visit Progression Follow-Up Visit Requested By Broadcast Maintenance Engineer Initiated Visit Source Broadcast Maintenance Engineer Initiated (Handoff list) Visit Type Inpatient Visit Circumstances and Events Routine Visit Visit Length (minutes) 15 Patient's Response to Pastoral Care Appeared to be well-engaged;Expressed Gratitude for Visit Visit Planning PRN;Pt aware to contact Broadcast Maintenance Engineer as needed Spiritual Assessment Not assessed during visit Zoroastrian Assessment Not assessed during this visit Family assessment provided? Unable to asess during this visit Signature: Daisy Rivers MDiv Staff Broadcast Maintenance Engineer [facility] 24hr On-Call /Reji On-Call Broadcast Maintenance Engineer She/Her/Hers NEE * Jordyn Kearns 01/16/2023 7:31 PM EST Spiritual Care Progress Note Completed by: Jordyn Kearns Person(s) Present During this Visit: Patient Time Spent in Direct Patient Care: 30 Narrative: EPIC referral for patient who is a little bit depressed. He is up watching football this evening. He is proud of his 55 year marriage. His spouse is at home. He is unable to express himself well but able to answer questions and say a few words fluently. He is slightly labile and tearing while business analysis consultant ask him about his mood. Broadcast Maintenance Engineer watched the end of the football game with him which seemed to please him. Blessings and compassionate words were well received and imitated back to business analysis consultant. Pastoral care will follow for emotional/spiritual support. For a requested pastoral care follow-up please, reji On-call day business analysis consultant or call . Thank you, for your collaborative care. Patients Response to Pastoral Care: Appeared to be well-engaged Planning for Future Visits: PRN, Pt aware to contact Broadcast Maintenance Engineer as needed 01/16/23 1900 Visit Background Visit With Patient Visit By Staff Broadcast Maintenance Engineer Visit Progression Introduction Visit Requested By Nurse Visit Source EPIC Consult Visit Type Inpatient Visit Circumstances and Events Emotional/Spiritual Assessment Visit Length (minutes) 30 Patient's Response to Pastoral Care Appeared to be well-engaged Visit Planning PRN;Pt aware to contact Broadcast Maintenance Engineer as needed Spiritual Assessment Not assessed during visit Zoroastrian Assessment Not assessed during this visit Family assessment provided? Unable to asess during this visit Jordyn Kearns MDiv. Broadcast Maintenance Engineer [address] [address] Office: * Jackie Patterson RN - 01/15/2023 10:28 AM EST Images from the original note were not included. Inpatient Rehabilitation Pre-Admission Screen Patient Name:Kevin White Date of : 1940 Patient Location: Room/bed info not found Gender:male Age: 82 y.o. 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 Professional needed: Address: [address] [place] [address] Demographics Is the patient of , /a, or Luxembourgish origin?: No, not of , /a, or Spanishorigin What is the patient's race?: White Pre Hospital Living Setting: Home Pre-Hospital Lives With: Family/Relatives Pre-Hospital Vocation Category: Retired for Age Pre-Hospital Activity Status: Driving Support System Family/Caregiver Contact Information Family/Caregiver Contact: Anamaria Santa Relationship: spouse Contact Support Support System: Spouse Type of Support Available: 07/09 Patient/Family Rehab Goal: Home No Zoroastrian Preference Referral/Payer Payer/Plan Subscriber Name Rel Member # Group # [employer] MA[employer]ED [employer]* KEVIN WHITE [id number] [address] [id number] Referral Date of Referral: 01/11/23 Referring Source Information: [facility] Referral Source: [facility] Referring Facility Admit Date: 01/06/23 Contact Name: [facility] Referring Facility Contact's Number: alan gonzalez Referring Physician: Lisbeth Referring Physician Contact Number: rosa gonzalez Current Status Current Status Rehab Impairement Code (ANTOINE): Stroke Stroke IGC: .1 - Left Body Involvement (Right Brain) Primary Dx (ICD): I63.9 Onset Date: 01/06/23 Hx Present Illness: 82 y.o. male with a history of CAD, AFIB s/p cardioversion/MAZE/LA clipping, CHF, IDDM type 2, who presented to [facility] 01/06/2023 from [facility] with left sided weakness and garbled speech, s/p [facility] tPA. Admitted to [facility] & found to have acute R MCA CVA. Hospital Course : Acute R MCA CVA s/p TPA Musculoskeletal impairments: Strength, Functional Endurance Neurologic Impairments: Coordination, Balance, Cognition Cardiopulmonary Impairments: Activity Tolerance. These impairments result in limitations of Gait, Functional Transfers, Stair-Climbing, Activity Tolerance, Insight, Safety Awareness. These impairments result in restrictions of Household mobility, Community mobility, Leisure activities. Will require neuro therapy from PT OT ST rehab nursing and PM&R forabove mentioned deficits . Dysphagia NDD diet recommendation: Chopped/ NDD3, chopped meats, Thin liquids Compensatory Strategies: Eat/feed slowly, Alternate solids and liquids, Lingual sweep, Check for pocketing of food on the left Postures: Sit as upright as possible for all oral intake Food Presentation: Small bites Liquid Presentation: Average sips Medication Presentation: Whole with thins, Whole in puree Amount of Supervision: Nursing staff supervision, Intermittent Treatment Techniques: Train swallowing strategies, continued training and education with patient and family from ST rehab nursing and PM&R Nutrition Diagnosis: Predicted inadequate energy intake related to dysphagia, neuro deficits as evidenced by need for modified diet. Rehab nursing to monitor and record intakes, PM&R and medicineto monitor , manage and consult nutrition if needed. Hypertension Rehab nursing to assess an monitor ,PM&R and medicine to monitor manage and adjustmedications as needed. Cognitive - Communication Mild to mod , O-Log 17 out of 30 Will need continued cognitive therapy from ST rehab nursing and PM&R while in rehab A Fib Rehab nursing to assess an monitor .PM&R and medicine to monitor manage and adjust medications as needed. AJAY on CKD .PM&R and medicine to monitor ,manage , consult Nephrology if needed. Chronic HFpEF: Rehab nursing to assess an monitor , daily weight check and education to patient andfamily on CHF , PM&R and medicine to monitor manage and adjust medications as needed. Diabetic A1c 6.6 Rehab nursing for diabetic education review with patient and family, including skin checks, diet, blood sugar monitoring and medication administration. PM&R and medicine to monitor , manage , adjust medications,and consult Endocrinology if needed. Bowel Last documented bowel movement 01/12 will benefit from bowel program from rehab nursing and PM&R Bladder Will benefit from bladder program for rehab nursing and PM&R including post void bladder scans for check post void retention Pain May benefit from pain management from PM&R and rehab nursing to manage for best benefit from intensive therapies Skin Patient has wound on left elbow and abrasions , rehab nursing to assess and monitor skin for signs of infection or bleeding, dressing changes to be completed per orders, PM&R and medicine tomonitor and manage sites. Abnormal labs PM&R and medicine to monitor and manage Thrombocytopenia: baseline plts low-normal ~150, Plts 91 on 01/07/23. PM&R and medicine to monitor and manage Home Living Obtained Home Living and PLOF info from: Patient Lives With: Spouse Type of Home: House Home Layout: Two level, Bed and full bath upstairs, 1/2 bath on main level Steps to enter home: Yes Rails to enter home: 2 rails Number of stairs to enter home: 5 Bathroom Shower/Tub: Walk-in shower Bathroom Toilet: Standard Bathroom Equipment: Shower chair, Grab bars in shower Mobility Equipment: Wheeled walker, Cane Additional Objective Details - Home Livin) AD used at baseline Prior Level of Function Level of Bishop - Transfers/Ambulation/Mobility: Independent with functional transfers, Independent with household ambulation, Independent with community ambulation Level of Bishop - ADLs: Independent Level of Bishop - Homemaking: Independent Driving: Patient drives Barriers to discharge home: Patient unable to navigate stairs to enter home, Patient needs assistance with functional mobility, Patient needs assistance with IADLs, Patient needs assistance with medication management, Lack of supervision necessary to mitigate fall risk, Assistance needed to ensure precautions are maintained, Cognitive impairments that impact safety, Unsafe home environment given patient's current status Supporting Factors (would benefit from skilled therapy services): Patient status is anticipated to be appropriate to tolerate inpatient rehab therapy requirements at time of discharge from acute care, Impaired functional status, Decreased strength, Impaired balance, Decreased endurance necessitating skilled therapy services, but able to tolerate therapy requirements for inpatient rehab, Impaired self-care abilities, Fall risk, Patient has appropriate assistance and setup at home for ultimate discharge to home once patient has progressed functionally following inpatient rehab Patient is High Risk For: Falls, Skin breakdown, Dehydration and malnourishment, Atelectasis, Bleeding, Constipation/ileus, Urinary retention with acute kidney injury, Hypotension/hypertension, DVT/PE, infection, acute neurological decline, and Cardiac or Pulmonary Event Discharge Barriers: Functional deficits and medical stability Requires rehab nursing for neuro, bowel and bladder, dysphagia, weakness, cardiac and respiratory monitoring. Will need close monitoring in these areas especially during intensive rehab. Requires Close Medical Supervision for brain hemorrhage, cardiac (a-fib and bradycardia) monitoring, pain management, dysphagia, and bowel and bladder assessment. It has been determined that he can tolerate 3 hours therapy per day/minimum 5 days per week and he has the ability to meet his goals in a timely manner. Discharge plan: home with the assistance of his family. He is willing to participate in the program. Discharge needs: FU with neurology , PCP, Cardiology, Electrophysiology. HHC vs Outpatient therapies, DME to be determined in rehab. Rehabilitation nursing to ensure and prevent skin breakdown, promote progressive independence whileensuring safety, ensure adequate pain control, and provide education regarding medications and management of bowel and bladder function. Past Medical History: Diagnosis Date Arthritis Back pain CHF (congestive heart failure) (HCC) COPD (chronic obstructive pulmonary disease) (HCC) Coronary artery disease Diabetes mellitus (HCC) Diabetes mellitus, type 2 (HCC) Disease of thyroid gland GERD (gastroesophageal reflux disease) Hernia of abdominal wall Hyperlipidemia Hypertension Myocardial infarction (HCC) Sleep apnea, obstructive refuses to use c-pap Stroke ([facility]) Past Surgical History: Procedure Laterality Date CABG AVR W/ MAZE Bilateral 08/12/2021 Procedure: CORONARY ARTERY BYPASS GRAFT TIMES THREE (krueger-lad, svg-d1, svg- drca)WITH ENDOVEIN HARVEST, Aortic valve replacement (27mm Paul Inspiris), full LA MAZE ([employer] RFA box, RFA HEATHER, cryoRA caval and RAA line), LEFT ATRIAL APPENDAGE LIGATION (40mm AtriCLIP), TRANSESOPHAGEAL ECHOCARDIOGRAM; Surgeon: Luis Beasley MD; Location: [facility] NEURO OR; Service: Cardiothoracic CARDIAC CATHETERIZATION CARDIAC CATHETERIZATION Bilateral 07/01/2021 No intervention, right radial CARDIAC CATHETERIZATION N/A 07/01/2021 Procedure: Coronary Angiogram; Surgeon: Shmuel Villalpando MD; Location: [facility]; Service: Cardiovascular CARDIAC CATHETERIZATION N/A 07/01/2021 Procedure: Right Heart Cath; Surgeon: Shmuel Villalpando MD; Location: [facility]; Service: Cardiovascular CARDIAC CATHETERIZATION N/A 07/01/2021 Procedure: Left Ventriculogram; Surgeon: Shmuel Villalpando MD; Location: [facility]; Service: Cardiovascular CARDIAC CATHETERIZATION N/A 07/01/2021 Procedure: Left Heart Cath; Surgeon: Shmuel Villalpando MD; Location: [facility]; Service: Cardiovascular cataracts removed Bilateral CORONARY STENT PLACEMENT EP - INTERVENTION N/A 08/24/2021 Procedure: Cardioversion/CTA; Surgeon: Abhishek Lauren MD; Location: [facility] EP LAB; Service: Cardiovascular HERNIA REPAIR W/HYDROCELE Right Medications: acetaminophen (TYLENOL) tablet 650 mg 650 mg Oral Q4H PRN Or acetaminophen (TYLENOL) suppository 650 mg 650 mg Rectal Q4H PRN Or acetaminophen (TYLENOL) solution 650 mg 650 mg Tube Q4H PRN albuterol (PROVENTIL) 2.5 mg /3 mL (0.083 %) nebulizer solution 2.5 mg 2.5 mg Nebulization Q4H PRN amLODIPine (NORVASC) tablet 10 mg 10 mg Oral Daily apixaban (ELIQUIS) tablet 5 mg 5 mg Oral BID atorvastatin (LIPITOR) tablet 40 mg 40 mg Oral Nightly cyanocobalamin (B-12) tablet 1,000 mcg 1,000 mcg Oral Daily dofetilide (TIKOSYN) capsule 250 mcg 250 mcg Oral Q12H GENIE furosemide (LASIX) tablet 20 mg 20 mg Oral Daily hydrALAZINE (APRESOLINE) injection 10 mg 10 mg Intravenous Q2H PRN insulin lispro (AdmeLOG,HumaLOG) injection 0-15 Units 0-15 Units Subcutaneous at bedtime insulin lispro (AdmeLOG,HumaLOG) injection 0-30 Units 0-30 Units Subcutaneous TID AC labetaloL (NORMODYNE) injection 10 mg 10 mg Intravenous Q2H PRN levothyroxine (SYNTHROID, LEVOTHROID) tablet 175 mcg 175 mcg Oral Daily lisinopriL (PRINIVIL,ZESTRIL) tablet 10 mg 10 mg Oral Daily with lunch magnesium oxide (MAG-OX) tablet 400 mg 400 mg Oral Daily multivitamin (THERAGRAN) per tablet 1 tablet 1 tablet Oral Daily naloxone (NARCAN) injection 0.1 mg 0.1 mg Intravenous PRN And naloxone (NARCAN) injection 0.4 mg 0.4 mg Intravenous PRN ondansetron (ZOFRAN) injection 4 mg 4 mg Intravenous Q6H PRN pantoprazole (PROTONIX) EC tablet 40 mg 40 mg Oral Daily polyethylene glycol (MIRALAX) powder 17 g 17 g Oral Daily polyethylene glycol (MIRALAX) powder 17 g 17 g Oral Daily PRN senna (SENOKOT) tablet 8.6 mg 1 tablet Oral Daily PRN senna-docusate (SENNA-S) 8.6-50 mg per tablet 1 tablet 1 tablet Oral BID sodium chloride (PF) (NS) flush 5 mL 5 mL Intravenous PRN And sodium chloride (PF) (NS) flush 5 mL 5 mL Intravenous Q8H GENIE And sodium chloride 0.9% (NS) 0-150 mL/hr Intravenous PRN tamsulosin (FLOMAX) 24 hr capsule 0.4 mg 0.4 mg Oral After evening meal Immunization History Administered Date(s) Administered Moderna SARS-CoV-2 Vaccination 04/17/2020, 05/17/2020 PFIZER-BIONTECH COVID-19 VACCINE BIVALENT BOOSTER (12+) 06/07/2022 Pfizer SARS-CoV-2 Vaccination 01/26/2021 Immunizations from Immunization Registries [facility] Immunizations as of 01/07/2023 at 5:19 AM Administered On COVID-19, mRNA, LNP-S, PF, 100 mcg/0.5mL dose or 50 mcg/0.25mL dose (Moderna SARS-CoV-2 Vaccination) 05/17/2020, 04/17/2020 COVID-19, mRNA, LNP-S, PF, 30 mcg/0.3 mL dose (Pfizer SARS-CoV-2 Vaccination) 01/26/2021 COVID-19, mRNA, LNP-S, bivalent, PF, 30 mcg/0.3 mL dose (PFIZER-BIONTECH COVID- 19 VACCINE BIVALENT BOOSTER (12+)) 06/07/2022 Influenza vaccine, quadrivalent, adjuvanted (INFLUENZA IIV4 FLUAD [id number]) 11/13/2022 Influenza, seasonal, injectable 12/12/2014, 11/23/2012 influenza, high-dose, quadrivalent (Influenza IIV4 high dose 65 and Older) 11/25/2021 influenza, injectable, quadrivalent 12/11/2015 influenza, injectable, quadrivalent, preservative free 11/26/2020, 11/14/2019, 11/29/2018, 11/29/2017, 11/25/2016 pneumococcal polysaccharide PPV23 (Pneumococcal Polysaccharide (Pneumovax 23)) 10/21/2016 zoster recombinant (Zoster (Shingrix)) 11/13/2022, 08/13/2022 Recommended immunizations as of 01/07/2023 at 5:19 AM The following recommendations are calculated by the immunization registry and might not match your organization's recommended schedule. Recommended Due Date TDAP 1947 HepB (Hep B, Unspecified) 02/15/1985 HepA (Hep A, Unspecified) 02/15/1995 FLU (Influenza, Unspecified) 08/16/2023 PneumoPCV (Pneumococcal Conjugate 13-Valent (Prevnar 13)) 08/16/2023 Required Medicare Questions Major surgery during 100 days prior to adm: No Has the patient had two or more falls in the past year or any fall with injury in the past year?: Unknown Vitals Date Measured: 01/15/23 Height: 6' 1 Weight: 107.8 kg (237 lb 10.5 oz) Blood Pressure: 127/77 Temperature: 97.4 Pulse: 61 Respirations: 15 O2 Sat: 96 Pain Scale: None Food and Nutrition Special Diet: Diabetic National Dysphagia Diets: NDD III (advanced) Liquid Specific Limitations: Thin Liquids Infection Current Infection: No MRSA/Site: no C-Diff: no VRE: no Other/Site: no IV Antibiotics: no Current Acute Care Therapy Therapy: Physical, Occupational, Speech Review of Systems No Known Allergies Review of Systems Vision: Negative Hearing: Negative Cardiovascular: Edema (CHF A Fib) Pulmonary: diminihed Gastrointestional: Negative Genitourinary: WNL Musculoskeletal: limited all etrm Integumentary: Wound (wound to left elbow, abrasions) Psychosocial: Negative Renal Function: abnormal labs Endocrine: Diabetes Precautions: Aspiration, Falls Isolation Precautions: no Bariatric Needs: no Dialysis: no Oxygen: no Special Equipment: TBD on rehab Weight Bearing Status: full Neuro Cognitive: Alert (with cues and choices) Motor: Follows 1 or 2 Step Directions Verbal: Appropriate Labs Blood Work/Labs Lab Results Component Value Date ALBUMIN 3.7 01/06/2023 ALT 21 01/06/2023 AST 20 01/06/2023 BUN 33 (H) 01/15/2023 CALCIUM 8.8 01/15/2023 CL 102 01/15/2023 CHOL 125 01/06/2023 CREATININE 1.52 (H) 01/15/2023 GLUCOSE 143 (H) 01/15/2023 HDL 37 (L) 01/06/2023 HCT 36.2 (L) 01/09/2023 HGB 12.2 (L) 01/09/2023 HGBA1C 6.6 (H) 01/06/2023 MG 2.4 01/13/2023 PHOS 3.5 01/07/2023 PLT 134 (L) 01/09/2023 K 4.8 01/15/2023 NA 137 01/15/2023 TRIG 110 01/06/2023 WBC 7.49 01/09/2023 Recent MRI & CT Studies: No orders to display Radiology Results (last 7 days) No results found for the last 168 hours. Functional Assessment Bladder Continence Pre-Hospital Bladder Continence: (presumed continent) Current Bladder Continence: (presumed ontinent) Medication: Yes Medication Type: Flomax Bowel Continence Date of Last BM: 01/12/23 Pre-Hospital Bowel Continence: (presumed continent) Current Bowel Continence: (presumed Coninent) Bowel Medication: Yes Medication Type: Miralax, Senna S Prior Functioning Everyday Activities Self Care: 3 - Independent Indoor Mobility (Ambulation): 3 - Independent Stairs: 3 - Independent Functional Cognition: 3 - Independent Prior Device Use Manual W/C: No Motorized W/C or Scooter: No Mechanical Lift: No Walker: No Orthotics/Prosthetics: No Functional Issues Balance: sitting static and dynamic - supervision , standing static SB dynamic CG Strength: moderate Range of Motion: limited all ectrm Non-FIM Functional Assessment Eating Pre-Morb: Independent Now: Min. Assist/Contact Guard Goal: Independent Grooming/Hygiene Pre-Morb: Independent Now: Min Assist/Contact Guard Goal: Independent Upper Ext Dressing Pre-Morb: Independent Now: Not Evaluated Goal: Independent Lower Ext Dressing Pre-Morb: Independent Now: Min Assist/Contact Guard Goal: Independent Bladder Management Pre-Morb: Independent Now: Min Assist/Contact Guard Goal: Independent Bowel Management Pre-Morb: Independent Now: Min Assist/Contact Guard Goal: Independent Bed Mobility Pre-Morb: Independent Now: Supervision (hand rails) Goal: Independent Supine-Sit Pre-Morb: Independent Now: Supervision (hand rails) Goal: Independent Sit-Stand Pre-Morb: Independent Now: Min Assist/Contact Guard Goal: Independent Transfer Pre-Morb: Independent Now: Min Assist/Contact Guard Goal: Independent Toilet Transfer Pre-Morb: Independent Now: Min Assist/Contact Guard Goal: Independent Ambulation Pre-Morb: Independent Now: Min Assist/Contact Guard Goal: Independent Expression Pre-Morb: Independent Now: Independent Goal: Independent Memory Pre-Morb: Independent Now: Min Assist/Contact Guard Goal: Independent Completed Therapy Evaluations Therapy: PT, OT, ACADEMIC SERVICES PROFESSIONAL Admission Justification Date/Time: 01/15/23 11:27 AM Sisal Picker: Jackie Patterson RN Screening Method: Through a review of the patient's acute care hospital medical records Screening Recommendations: 1. Rehabilitation Admission: Yes 2. Therapy assessment projects patient able to tolerate relatively intense therapy: Yes 3. Rehabilitation Prognosis: good 4. Patient is willing to participate in an intensive rehabilitation program: Yes ELOS 7-10 Days Anticipated Discharge Setting: Home Jackie Patterson Physician Admission Justification Patient demonstrates potential for significant practical improvement and there is a reasonable expectation for measurable improvement of functional capacity or adaptation to impairments as demonstrated by: Sufficiently Stable: Yes Patient's condition is sufficiently stable at the time of admission to allow the patient to actively participate in an intensive rehabilitation program. Intensive Rehabilitation Nursing: The patient demonstrates the need for 24-hour rehabilitation nursing care for active management of the following medical and functional deficits: ADLs, Bladder Mgmt., Bowel Mgmt., Cognition, Communication, Diabetes Mgmt., Disease Mgmt., Family Training/Edu., Medications Admin., Nutritional Deficits, Pain Mgmt., Patient Education, Positioning, Safety, Skin Integrity, Nutri., and Transfers Appropriate Therapy Needs: The patient requires the active and ongoing therapeutic intervention of at least two therapy disciplines (physical therapy, occupational therapy, speech- language pathology, or prosthetics/orthotics therapy), one of which must be physical or occupational therapy. Requires 2 or more therapies: PT, OT, and ACADEMIC SERVICES PROFESSIONAL Intensive Therapy: Yes Patient requires and is reasonably expected to actively participate in at least 3 hours of therapy per day at least 5 days per week, and be expected to make measurable improvement that will be of practical value to improve the patient's functional capacity or adaptation to impairments. In addition,therapy treatments will begin within 36 hours from midnight of the day of the patient's admission to the IRF. Expected duration and frequency of therapy: 180 minutes/day, 5 days/week Interdisciplinary Team: Patient demonstrated the need for an interdisciplinary team for active management of the following medical and functional deficits: Balance, Cognition, Disease Management, Elimination, Endurance, Family Training/Education, Independent ADLs, Pain Management, Precautions, ROM,Safety, Skin Care / Wound Mgmt., Speech, Strength, Swallowing, and Transfers Associated attestation - Shahrzad Odom DO - 01/15/2023 11:31 AM EST Patient would benefit from 3 hours of therapy 5 days a week for strengthening, balance training, gait training, ADL training, motor skills training, cognitive remediation and family training. Pt would benefit from interdisciplinary rehab to adapt to this new impairments and improve functional independence in the home environment. Shahrzad Odom DO 01/15/2023 documented in this [id number] Hospital course Narrative* Shahrzad Odom DO - 01/25/2023 10:16 AM EST DISCHARGE SUMMARY Physical Medicine & Rehabilitation [facility] Acute Inpatient Rehabilitation 01/25/2023 Patient Name: Kevin White Date of : 1940 (82 y.o.) Primary Care Physician: Moi Gibson MD Date of Admission: 01/15/2023 Discharge Date & Time 01/25/23 Disposition Home with family Condition Good Discharge Diet Diet Orders (From admission, onward) Start Ordered 01/15/23 1605 Diet Special; Diabetic, Food Consistency, Liquid Consistency; Carbohydrate [id number]/meal (>2000 kCal equivalent); Chopped/NDD3 (chopped meats); Thin Liquids Diet effective now 01/15/23 1609 Discharge Diagnoses & Plan Principal Problem: Acute cerebrovascular accident (CVA) (HCC) Debility 2/2 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 -01/06 VIANEY: normal EF 59%, well-seated AVR, LA dilation. -01/07 CTH: evolution of acute R MCA CVA with petechial hemorrhage -LDL 66, A1c 6.6 -Neurology followed on medical floor -Started ASA and transitioned to eliquis 01/11/23 -Transferred to [facility] on 01/15/23 -Atorvastatin 40mg daily -Eliquis 5mg BID - Eliquis covered with a $47/month copay. Pharm can get first month free . Pt stated he was on Eliquis CREATIVE INTERN -Completed comprehensive rehab plan to include PT/OT/ACADEMIC SERVICES PROFESSIONAL -Discharged with outpatient PT, OT, Speech. 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 Fibrillation s/p cardioversion/MAZE/LA clipping -Norvasc 10mg daily -Eliquis 5mg BID -Tikosyn 250mcg q12 -Lasix 20mg daily -Lisinopril 10mg daily -01/19 Hospitalist team: Dc'd Lasix. -At discharge continue Norvasc 10mg daily, Eliquis 5mg BID, Tikosyn 250mcg q12 and Lisinopril 10mg daily Hyperlipidemia -Home med: Crestor 20mg daily -Atorvastatin 40mg daily -At discharge restart Crestor 20mg daily Hypothyroidism -Levothyroxine 175mcg daily - continue at discharge Type 2 DM with hyperglycemia -Home med: Glucophage XR 500mg BID -A1c 6.6 -Carb controlled diet -Accuchecks QID -Insulin SSI for coverage -At discharge resume Metformin XR 500mg BID AJAY on CKD -Unclear stage. Admission on medical floor C 1.4 ->0.9 -01/14 Cr 1.6. s/p gentle hydration -01/19 Renal US: Right kidney 11 x 6 x 4.5 cm. No hydronephrosis or shadowing stone. Left kidney 10.7 x 6.5 x 5.1 cm. No hydronephrosis or shadowing stone. A 1.4 cm cyst. Prevoid and postvoid calculated bladder volumes are essentially unchanged, approximately 8 mL. -01/20 Nephrology signed off. Avoid NSAIDs. No need for diuretics; appears euvolemic. Follow up in [place]. Thrombocytopenia -Baseline plts low-normal ~150 -01/07 Plts 91 -Bleeding risk -01/25 Plts 106 -Stable on dc. Pain management -PRN Tylenol Bladder BPH -Admission UA/cx: Neg -Bladder scans and ISC if indicated. Scans 48,33,6. -Continent of bladder -Flomax 0.4mg daily - continue at discharge Bowels -Monitor for regular BMS -Senna-s 1 tab BID -Miralax daily -Continent of bladder H/o NAJMA -Refuses CPAP DVT prophylaxis -Eliquis 5mg BID GI prophylaxis GERD -Home med: Nexium 40mg daily -Protonix 40mg daily -At discharge resume Nexium 40mg daily Nutrition -Mag Ox 400mg daily - continue at discharge -B-12 1000mcg daily - continue at discharge -MVI daily - continue at discharge -Vit D 42 Obesity -BMI: 31.69 -Encourage diet modification, active lifestyle, and weight reduction. Follow-ups - Stroke [facility] - Nephrology - PCP Of note, this patient was admitted to the acute inpatient rehab program following the declaration of a National State of Emergency due to the COVID-19 pandemic, as issued by the containers sales representative on 04/28/2019. No medication issues were identified since admission. Discharge Medications Current Discharge Medication List CONTINUE these medications which have NOT CHANGED Details amLODIPine (NORVASC) 10 MG tablet Take 1 (one) tablet (10 mg total) by mouth daily . Qty: 30 tablet, Refills: 0 apixaban (ELIQUIS) 5 mg Tab Take 1 (one) tablet (5 mg total) by mouth 2 (two) times a day . Qty: 60 tablet, Refills: 0 cyanocobalamin (B-12) 1000 MCG tablet Take 1 (one) tablet (1,000 mcg total) by mouth daily . dofetilide (TIKOSYN) 250 MCG capsule Take 1 (one) capsule (250 mcg total) by mouth every 12 (twelve) hours . Qty: 180 capsule, Refills: 1 esomeprazole (NEXIUM) 40 MG capsule Take 1 (one) capsule (40 mg total) by mouth every morning before breakfast . furosemide (LASIX) 20 MG tablet Take 1 (one) tablet (20 mg total) by mouth daily . Qty: 30 tablet, Refills: 0 levothyroxine (SYNTHROID, LEVOTHROID) 175 MCG tablet Take 1 (one) tablet (175 mcg total) by mouth daily . lisinopriL (PRINIVIL,ZESTRIL) 10 MG tablet Take 1 (one) tablet (10 mg total) by mouth daily with lunch Start: 08/25/21. Qty: 30 tablet, Refills: 3 magnesium oxide (MAG-OX) 400 mg (241.3 mg magnesium) tablet Take 1 (one) tablet (400 mg total) by mouth daily Start: 01/09/23. Qty: 30 tablet, Refills: 0 metFORMIN (GLUCOPHAGE-XR) 500 MG 24 hr tablet Take 1 (one) tablet (500 mg total) by mouth 2 (two) times a day . potassium chloride SA (K-DUR,KLOR-CON) 20 MEQ tablet Take 1 (one) tablet (20 mEq total) by mouth daily . Qty: 30 tablet, Refills: 0 rosuvastatin (CRESTOR) 20 MG tablet Take 1 (one) tablet (20 mg total) by mouth nightly . tamsulosin (FLOMAX) 0.4 mg capsule Take 1 (one) capsule (0.4 mg total) by mouth daily . therapeutic multivitamin (THERAGRAN) tablet Take 1 (one) tablet by mouth daily . traZODone (DESYREL) 50 MG tablet Take 0.5 (one-half) tablet (25 mg total) by mouth nightly as needed . Allergies Patient has no known allergies. Physical Exam BP (!) 164/80 Pulse 60 Temp 98 F (36.7 C) (Oral) Resp 16 Ht 6' Wt 105.2 kg (231 lb 14.8 oz) SpO2 96% BMI 31.45 kg/m General Appearance: Alert, well appearing, and in no acute distress. HEENT: Head - Normocephalic, atraumatic. Eyes - EOMI. Ears - normal external appearance, hearing intact. Nose - normal, no erythema. Neck: Trachea midline. Cardiovascular: Well perfused. No significant pedal edema. Respiratory: On room air, no respiratory distress Abdomen: Soft, non-tender, non-distended, no masses or organomegaly appreciated. Neurological: Grossly normal motor and sensory exam. No focal deficits.+ Dysarthria Musculoskeletal: No joint tenderness, deformity or swelling. Skin: No rashes. Psych: Alert, oriented x 3. Normal mood. Flat affect. Laboratory and Additional Data Reviewed: Results/Medications Reviewed 01/25/23 10:16 AM: Results from last 7 days Lab Units 01/25/23 0651 01/24/23 0809 01/23/23 0634 SODIUM mmol/L 138 138 138 POTASSIUM mmol/L 4.4 4.3 4.7 CHLORIDE mmol/L 108 107 105 BUN mg/dL 20 22 22 CREATININE mg/dL 1.23 1.39* 1.32* GLUCOSE mg/dL 127* 145* 148* CALCIUM mg/dL 8.6 8.8 8.6 Results from last 7 days Lab Units 01/25/23 0651 WBC K/mcL 7.36 HGB g/dL 12.9* HCT % 39.4* PLT K/mcL 106* Invalid input(s): LABALBU Functional History Therapy Assessments: Home Living RETIRED Type of Home: (not recorded) Home Layout: One level, Full bath on main level, Bed on main level, Stairs between floors, Work area in basement (laundry on main. house has basement and 1st floor. 1/2 bath in basement) (01/16/23932) RETIRED Bathroom Shower/Tub: (not recorded) RETIRED Bathroom Toilet: (not recorded) Bathroom Equipment: Grab bars in shower, Shower chair, Hand-held showerhead, Grab bars around toilet (01/16/23932) Bathroom Accessibility: Accessible via walker (01/16/23932) Mobility Equipment: Wheeled walker (01/16/23932) Additional Objective Details - Home Living: Pt reports that he likes to make lots of things in the basement ( model cars/trucks/semi's). Pt with expressive aphasia. Pt inconsistant with responses provided during PT evaluation versus previous consult. Pt is questionable historian. (01/16/23932) Prior Level of Function Level of Bishop - Transfers/Ambulation/Mobility: Independent with functional transfers, Independent with household ambulation, Independent with community ambulation (no device utilized) (01/16/23932) Lives With: Spouse, Son (son works 5 days a week and is unable to assist pt when working. pt reports in good health and can assist pt with needs after discharge.) (01/16/23932) Receives Help From: Family ( and son ( son assists when not at work, as needed).) (01/16/23932) Level of Bishop - Homemaking: Independent (01/16/23932) Retired: Vocational: (not recorded) RETIRED Leisure: (not recorded) Subjective Impression - Prior Function: Pt denies any falls in last 6 months. (01/16/23932) Current Level of Function Balance: RETIRED Sitting Balance - Static: (not recorded) RETIRED Sitting Balance - Dynamic: (not recorded) RETIRED Standing Balance - Static: (not recorded) RETIRED Standing Balance - Dynamic: (not recorded) Bed Mobility: Rolling: Modified independent, Head of bed flat (01/20/23 1020) Supine to Sit: Modified independent, Head of bed flat (01/20/23 1020) Sit to Supine: Modified independent, Head of bed flat (01/20/23 1020) Transfers: Sit to Stand: Stand by assist (01/22/23 1300) Bed to Chair: Contact guard assist (01/16/23932) Stand Pivot Transfers: Stand by assist, Contact guard assist (01/21/23 1405) Squat Pivot Transfers: (not recorded) Documentation Nurse: wheeled walker (01/22/23 1300) Gait/Locomotion: Gait Assistance: Stand by assist (01/22/23 1300) Assistive Device: wheeled walker (01/22/23 1300) Distance: (200+ feet) (01/22/23 1300) Pattern: R impaired heel strike, L impaired heel strike, R decreased step length, L decreased step length (01/22/23 1300) Weight Bearing Status: able to maintain (01/16/23 0933) ADL & IADL Feeding: Modified independent (01/25/23704) Meal Prep: (not recorded) Grooming: Supervision (standing) (01/25/23704) Upper Body Bathing: Stand by assist, Use of adaptive equipment (seated) (01/25/23704) Lower Body Bathing: Stand by assist, Use of adaptive equipment (seated) (01/25/23704) Upper Body Dressing: Set-up (01/25/23704) Lower Body Dressing: Stand by assist (01/25/23704) Toileting: Stand by assist (01/25/23704) Speech Therapy Speech Functional Diagnosis: CVA: (not recorded) Speech/Language (Unrelated to CVA): (not recorded) Cognition (Unrelated to CVA): (not recorded) Dysphagia (Unrelated to CVA): (not recorded) Voice (Unrelated to CVA): (not recorded) Consults: Procedures Inpatient consult to Hospitalist Inpatient consult to Care Management Inpatient consult to Spiritual Care Inpatient consult to Nephrology Procedures: None US Renal and Bladder Result Date: 01/19/2023 EXAMINATION: US RENAL AND BLADDER HISTORY: ORDERING SYSTEM PROVIDED HISTORY: AJAY, TECHNOLOGIST PROVIDED HISTORY: Illness/Other Reason for exam: AJAY Cancer History: unk Surgery, RadiationHistory: unk Encounter Type: Subsequent/Follow-up Additional signs and symptoms: none ORDERING SYSTEM PROVIDED DIAGNOSIS CODES: COMPARISON: 01/06/2023 TECHNIQUE: Renal and bladder ultrasound FINDINGS: Right [id number] x 6 x 4.5 cm. No hydronephrosis or shadowing stone. Left kidney 10.7 x 6.5 x 5.1 cm. No hydronephrosis or shadowing stone. A 1.4 cm cyst. Bladder is not fully distended likely accounting for wall prominence. Ureteral jets could not be identified. Patient reported some urgency despite the bladdernot being distended and the post void images show essentially unchanged bladder volume of 8 mL. Left renal cyst but no acute renal finding or hydronephrosis. Bladder not fully distended limiting assessment. Ureteral jets could not be identified. Patient reported urgency to void despite bladder not being distended. Prevoid and postvoid calculated bladder volumes are essentially unchanged, approximately 8 mL. Workstation ID: [id number] ECG 12 Lead Result Date: 01/11/2023 Sinus rhythm with 1st degree AV block with occasional Premature ventricular complexes and Prematureatrial complexes Nonspecific ST abnormality Prolonged QT Abnormal ECG ECG Cart Interpretation - seephysician note for interpretation. Confirmed by Mahnaz Morales ([id number]) on 01/11/2023 3:04:[address] Head Or Brain Without Contrast Result Date: 01/07/2023 EXAMINATION: CT HEAD OR BRAIN WITHOUT CONTRAST HISTORY: F/U stroke, ? petechial hemorrhage Injury/Trauma or Illness?:Illness/Other How long have you had these symptoms (acute/chronic)?:Acute Reason for exam?:F/U stroke, ? petechial hemorrhage Type of Exam?:Subsequent/Follow-up Additional signs and symptoms?:F/U stroke, ? petechial hemorrhage I63.9 Acute ischemic stroke (HCC)Injury/Trauma or Illness?:Illness/Other How long have you had these symptoms (acute/chronic)?:AcuteF/U stroke, ? petechialhemorrhage COMPARISON: Head CT dated 01/06/2023 at 8:54 p.m.. CONTRAST: None. TECHNIQUE CT Head with axial, coronal and sagittal reformats. Dose reduction techniques were achieved by using automated exposure control and/or adjustment of mA and/or kV according to patient size and/or use of iterativereconstruction technique. FINDINGS: FINDINGS: POSTOPERATIVE CHANGES: None. BRAIN PARENCHYMA: There is low density now appreciated consistent with an evolving infarction in the region of the posteriorright frontal lobe and associated operculum. There is subtle hyperdensity within the cortex consistent with petechial hemorrhage. This is consistent with laminar necrosis. No midline shift or herniation is seen. There is patchy low-density in the white matter consistent with small vessel ischemic change in old lacunar infarctions are present in the centrum semiovale bilaterally. VENTRICLES/EXTRA-AXIAL SPACES: Ventricles and extraventricular spaces are within normal limits for patient's age. VESSELS: No hyperdense intraluminal thrombus. Vascular SINUSES/MASTOIDS:Thickening with cyst or polyp formation in the base of the left maxillary sinus. Erika bullosa bilaterally. S-shaped nasal septal deviation. Mastoids and middle ears are clear. MSK: No displaced or depressed calvarial fracture. OTHER: 1. Continued evolution of the area of infarction in the right posterior frontal and temporal lobe involving the operculum with findings consistent with petechial hemorrhage as noted on the prior examination consistent with laminar necrosis. A telephone call regarding the findings in the study was made to and acknowledged by Esha, the nurse practitioner, in the, in the [facility] at 6:20 a.m. on 01/07/2023. Workstation ID: [id number] CT Head Or Brain Without Contrast Result Date: 01/06/2023 EXAMINATION: CT Head without Contrast HISTORY: Stroke, follow up To be completed 18-30 hours after thrombolytic (alteplase, tenecteplase) initiated or intervention complete Radiology to call Neurology on-call with critical results. COMPARISON: CT head, 01/06/2023 TECHNIQUE: Multiple axial noncontrast images of the brain were obtained and reformatted according to the standard protocol. QPP DOCUMENTATION: At least one of the following dose reduction techniques was utilized: Iterative reconstruction, and/or Automatic Exposure Control, and/or mA/kV adjustment based on body size. FINDINGS: Infarct/Vascular: There is a small area of evolving infarction within the posterolateral right frontal lobe and involving a portion of the posterior right insula. There is a small area of very subtle hyperdensity within the subinsular region which may represent a small area of petechial hemorrhage. Patchy areas of decreased attenuation throughout the supratentorial white matter are nonspecific but commonly associated chronic small vessel ischemic disease. Intracranial Mass: No evidence of intracranial mass. CSF Spaces: Mild generalized parenchymal atrophy. No change since prior exam. Calvarium and Scalp: Unremarkable. Mastoid Air Cells: Clear. Paranasal Sinuses and Orbits: Mild lobulated mucosal thickening along the alveolar recess of the left maxillary sinus. The orbits are unremarkable. There is a small evolving infarction within the posterolateral right frontal lobe and adjacent posterior right insula. There is very subtle hyperdensity within the subinsular region which may represent minimal petechial hemorrhage. Continued follow-up recommended. Workstation ID: [id number] XR Modifed Barium Swallow Result Date: 01/06/2023 EXAMINATION: XR MODIFIED BARIUM SWALLOW HISTORY: dysphagia Dx: I63.9 (Acute ischemic stroke (HCC)) Injury/Trauma or Illness?:Illness/Other How long have you had these symptoms (acute/chronic)?:Unknown CONTRAST: BARIUM SULFATE 40 % (W/V), 30% (W/W) ORAL PASTE - 1 Dose, BARIUM SULFATE 40 % (W/V), 30 % (W/W) ORAL SUSPENSION - 1 Dose, BARIUM SULFATE 81 % (W/W) ORAL POWDER - 1 Dose, FLUOROSCOPY DOSE: Ka,r mGy: Fluoro dose in Ka,r mGy: 4.41 TECHNIQUE: Modified barium swallow performed with speech therapy. 372 fluoroscopic images obtained. FINDINGS: The prevertebral soft tissues are normal. Oral phase: Moderately impaired. Pharyngeal phase: Mild to moderately impaired. Penetration: During swallowing with thin liquid and nectar. Aspiration: Aspiration occurred during swallowing with thin liquid. Mild to moderately impaired pharyngeal phase of swallowing with penetration and aspiration of thin liquid. Please see speech therapy recommendations Workstation ID: [id number] US Renal Only Result Date: 01/06/2023 EXAMINATION: RENAL ULTRASOUND, 01/06/2023 HISTORY: Dx: I63.9 (Acute ischemic stroke (HCC)) Injury/Trauma or Illness?:Illness/Other How long have you had these symptoms (acute/chronic)?:Unknown eval, CKD COMPARISON FILMS: None. FINDINGS: Static images from real-time examination using grayscale, color Doppler sonography are provided. The study overall is slightly limited due to overlying bowel gas.The kidneys measure as follows: Right kidney: 11.5 x 6.2 x 5.7 cm, volume 213.0 mL. Left kidney: 12.4 x 7.2 x 5.5 cm, volume 256.3 mL. There is an anechoic lesion in the upper pole of the right kidney measuring 0.9 x 1.2 x 1.0 cm. There is an anechoic lesion in the mid pole of the left kidney measuring 1.4 x 1.4 x 1.4 cm. These have thin cedeño, good through transmission. No other mass, hydronephrosis, nephrolithiasis or perinephric fluid collections. 1. Except for a simple cyst in the right as well as left kidney no acute process such as hydronephrosis. The kidneys are essentially normal. LACHELLE/libiak Workstation ID: [id number] Echocardiogram complete w contrast Result Date: 01/06/2023 Patient Info Name: KEVIN WHITE Age: 82 years : 1940 Gender: Male Ht: 183 cm Wt: 112 kg BSA: 2.41 m2 HR: 69 bpm BP: 165 / 64 mmHg Technical Quality: Poor Exam Date: 01/06/2023 8:38 AM Patient Status: Inpatient Upscale Security Officer: Sheryl Smith RDCS, RVTExam Type: ECHOCARDIOGRAM COMPLETE W CONTRAST Study Info Indications G45.9 - Transient cerebral ischemic attack, unspecified Attending Physician: ELLEN SOTO Referring Physician: BRUCEG. GASTON ; [id number] Primary Nurse: MINGLER OPERATOR BMI: 33.36 kg/m2 Summary 1. This study was technically limited, Definity IV contrast was used to enhance endocardial definition. 2. Left ventricular systolic func tion is normal with an ejection fraction by Biplane Method of Discs of 59 %. 3. And aortic bioprosthesis (27 mm Inspiris) appears well-seated, but is not well visualized. 4. There is no bioprostheticaortic valve stenosis with a peak velocity of 2.1 m/s, mean gradient of 10 mmHg, and aortic valve area of 1.8 cm2. 5. Left atrial chamber is mildly enlarged with a left atrial volume index of 41 ml/m2 by BP MOD. 6. Compared to the prior study from 11/13/2021, there is no significant interval change.History/Risk Factors Hypertension: Yes Dyslipidemia: Yes Diabetic Therapy: Oral Myocardial Infarction (TN): Yes Chronic Lung Disease: Yes Coronary Artery Disease (CAD) Yes Diabetes Mellitus: Yes COPD: Not Treated Tobacco Use: Never Cerebrovascular Disease: CVA Family History: Coronary Artery Disease Valve Disease - AV: Severe History/Risk Factors Patient has prior CABG on 08/12/2021. Prior Interventions Pacemaker: No PCI: Yes CABG: Yes Valve Surgery: Yes Type of Valve Surgery: AV Bioprosthetic Replacement ICD: No Date of CAB08/12/2021 Most Recent Valve Surgery: 08/12/2021 Transcatheter Intervention: HEATHER Closure Replacement Valve Size: 27 mm Inspiris Replacement Valve Size: 40mm atriclip Procedure(s): Complete two-dimensional, color flow and Doppler transthoracic echocardiogram is performed with contrast. Definity explained to patient. Patient verbalizes understanding and agrees to proceed. Definity 1.3ml/8.7ml normal sterile saline 2 ml total given IV over 30-60 seconds. Left Ventricle Left ventricular chamber dimension is normal. Left ventricular systolic function is normal with anejection fraction by Biplane Method of Discs of 59 %. Normal left ventricular mass. Left ventricular segmental wall motion is normal. There is normal diastolic function. E/e' average 11.9 is not elevated consistent with normal LA pressure. Right Ventricle Right ventricular chamber dimension is normal. Right ventricular systolic function is normal. Left Atria Left atrial chamber is mildly enlargedwith a left atrial volume index of 41 ml/m2 by BP MOD. Right Atria Right atrial chamber dimension is normal. Aortic Valve And aortic bioprosthesis (27 mm Inspiris) appears well-seated, but is not well visualized. There is no sclerosis of the bioprosthetic aortic valve leaflets. There is no regurgitation of the bioprosthetic aortic valve. There is no bioprosthetic aortic valve stenosis with a peakvelocity of 2.1 m/s, mean gradient of 10 mmHg, and aortic valve area of 1.8 cm2. Pulmonic Valve Thepulmonic valve is normal. There is no pulmonic valve stenosis. There is trace pulmonic regurgitation. Mitral Valve The mitral valve has normal leaflets. There is no mitral valve stenosis. Moderate mitral annular calcification. There is trace mitral valve regurgitation. Tricuspid Valve The tricuspidvalve leaflets are normal. There is no significant tricuspid valve stenosis. There is trace tricuspid valve regurgitation. There is no pulmonary hypertension, estimated right ventricle systolic pressure is 37 mmHg. Pericardium/Pleural The pericardium appears normal. There is no pericardial effusion. Inferior Vena Cava Normal inferior vena cava with >50% collapse upon inspiration consistent with normal right atrial pressure. Aorta The aortic measurements are indexed to age and body surface area. The aortic root is normal measuring 3.5 cm with an index of 1.4 cm/m2. The proximal ascending aorta is normal measuring 3.5 cm with an index of 1.4 cm/m2. Left Ventricular Outflow Tract Name Value Normal LVOT 2D LVOT Diameter 2.2 cm LVOT Doppler LVOT Peak Velocity 1.1 m/s LVOT Mean Gradient 1 mmHg LVOT VTI 20 cm LVOT VTI/AV VTI Ratio 0.5 LVOT Stroke Volume 78 ml LVOT Stroke Index 32.10 ml/m2 Pulmonic Valve --- Name Value Normal PV 2D RVOT Diameter (2D) 2.7 cm 1.7-2.7 PV Regurgitation Doppler ------- MA Peak Velocity 92.60 cm/s Mitral Valve Name Value Normal ------ MV Doppler MV Decel [place] 643 cm/s2 MV PHT 43 ms MV Area (PHT) 5.2 cm2 4.0-5.0 MV Diastolic Function MV E Peak Velocity 0.95 m/s MV A Peak Velocity 0.85 m/s MV E/A 1.1 MV Decel Time 147 ms MV Annular TDI MV Septal e' Velocity 6.7 cm/s >=8.0 MV E/e' (Septal) 14.1 <=8.0 MV Lateral e' Velocity 9.8 cm/s >=10.0 MV E/e' (Lateral) 9.7 <=8.0 MV e' Average 8.25 cm/s MV E/e' (Average) 11.9 Tricuspid Valve Name Value Normal TV Regurgitation Doppler TR Peak Velocity 2.90 m/s TR Peak Gradient 34 mmHg Estimated PAP/RSVP RA Pressure 3mmHg <=5 PA Systolic Pressure 37 mmHg <=36 RV Systolic Pressure 37 mmHg <36 Aorta --------- Name Value Normal Ascending Aorta Ao Root Diameter (2D) 3.5 cm 3.1-3.7 Ao Root Diam Index (2D) 1.4 cm/m2 1.5-1.9 Prox Asc Ao Diameter 3.5 cm 2.6-3.4 Prox Asc Ao Diameter Index 1.4 cm/m2 1.3-1.7 Venous Name Value Normal ------ IVC/SVC IVC Diameter (Exp 2D) 2.0 cm <=2.1 Aortic Valve ----- Name Value Normal AV Doppler AV Peak Velocity 2.1 m/s AV Mean Gradient 10 mmHg AV VTI 44 cmAV Area (Cont Eq VTI) 1.8 cm2 AV Area Index (Cont Eq VTI) 1 cm2/m2 AV Area (Cont Eq Clemente) 1.9 cm2 AVArea Index (Cont Eq Clemente) 1 cm2/m2 LVOT Vmax/AV Vmax 0.50 LVOT VTI/AV VTI Ratio 0.5 AV [id number] LVOT Area 3.8 cm2 Ventricles Name Value Normal -------- LV Dimensions 2D/MM IVS Diastolic Thickness (2D) 1.8 cm 0.6-1.0 LVID Diastole (2D) 4.9 cm 4.2-5.8 LVIW Diastolic Thickness (2D) 1.3 cm 0.6-1.0 LVID Systole (2D) 4.0 cm 2.5-4.0 LVOT Diameter 2.2 cm LV Mass (2D Cubed) 328.70 g 88.00-224.00 LV Mass Index (2D Cubed) 136 g/m2 49-115 Relative Wall Thickness (2D) 0.53 <=0.42 LV Fractional Shortening/Ejection [id number]/MM LV Fractional Shortening (2D) 18 % 25-43 LV EF (2D Teicholz) 38 % 52-72 LV Diastolic Volume (4C MOD) 142 ml LV Systolic Volume (4C MOD) 61 ml LV EF (4C MOD) 57 % LV Diastolic Volume (2C MOD) 130 ml LV Systolic Volume (2C MOD) 50 ml LV EF (2C MOD) 61 % LV Diastolic Volume (BP MOD) 141 ml 62-150 LV Diastolic Volume Index (BP MOD) 58 ml/m2 34-74 LV Systolic Volume (BP MOD) 58 ml 21-61 LV Systolic Volume Index (BP MOD) 24 ml/m2 11-31 LV EF (BP MOD) 59 % 55-70 LV Diastolic Length (4C) 8.7 cm LV Systolic Length (4C) 7.9 cmLV End Diastolic Volume (BP A-L) 140 ml LV End Systolic Volume (BP A-L) 58 ml LV EF (BP A-L) 59 % LV Stroke Volume (4C MOD) 81 ml LV SI (4C MOD) 33.58 ml/m2 RV Dimensions 2D/MM RV Basal Diastolic Dimension 3.8 cm 2.5-4.1 RV Mid-Cavity Diastolic Dimension 3.4 cm 1.9- 3.5 RV Systolic Function RV s' Velocity 0.09 m/s 0.10-0.19 Atria Name Value Normal LA Dimensions LA Dimension (2D) 3.9 cm 3.0-4.1 LA Dimen Index (2D) 1.6 cm/m2 LA Area (4C) 29.1 c m2 LA Length (4C) 7.3 cm LA Area (2C) 24.7 cm2 LA Length (2C) 5.9 cm LA Volume (4C MOD) 95 ml LA Volume (2C MOD) 82 ml LA Volume (4C A-L) 98 ml LA Volume (2C A-L) 88 ml LA Volume (BP A-L) 103 ml LA Volume Index (BP A-L) 43 ml/m2 <=34 LA Volume (BP MOD) 98 ml LA Volume Index (BP MOD) 41 ml/m2 16-34 RA Dimensions RA Systolic Major Winston Length (4C) 5.93 cm <=5.30 RA Area (4C) 23.0 cm2 <=18.0 RA Area (4C) Index 10 cm2/m2 RA ESV (4C MOD) 71 ml 18-32 RA ESV Index (4C MOD) 29 ml/m2 <=32 Report Signatures Finalized by Radha Lawler MD on 01/06/2023 10:39 AM LA Pressure: normal CT Angiogram Brain With Perfusion Result Date: 01/06/2023 EXAMINATION: CT ANGIOGRAM BRAIN WITH PERFUSION HISTORY: r mca syndrome Injury/Trauma or Illness?:Illness/Other How long have you had these symptoms (acute/chronic)?:Acute Reason for exam?:r mca syndrome Type of Exam?:Initial Additional signs and symptoms?:r mca syndrome I63.9 Acute ischemic stroke ( HCC)Injury/Trauma or Illness?:Illness/Other How long have you had these symptoms (acute/chronic)?:Acuter mca syndrome COMPARISON: Head CT and CT angiogram performed at [facility] dent dated 01/06/2023 at 2:[address] dated 01/06/2023 at 4:39 a.m.. TECHNIQUE: CT angiogram of the head was performed. Coronal, sagittal and 3-D reformats were created and reviewed. Dose reduction techniques were achieved by using automated exposure control and/or adjustment of mA and/or kV according to patient size and/or use of iterative reconstruction technique CONTRAST: Isovue 370 FINDINGS: BRAIN: Perfusion images demonstrate 0 mL volume of hypoperfusion with T-max greater than 6 seconds and 0 mLvolume of core infarction with cerebral of flow less than 30%. ANTERIOR CIRCULATION:The intra petrous, intra cavernous, and supraclinoid ICA are patent. LILI patent bilaterally. MCA patent bilaterally. No large vessel occlusion or thrombus. No aneurysm. Distal distributions now appear symmetric. POSTERIOR CIRCULATION: Dominant right V4 segment demonstrates calcific plaque without flow-limiting stenosis. 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 No distal V4 segment is seen. This is hypoplastic or occluded. Basilar artery is patent. Basilar tip is patent. SCA and [employer] patent. Distal [employer] distributions are symmetric. 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 This is better visualized as compared to the prior study. OTHER: No pathologic enhancing lesions are seen. 1. Improvement in the appearance of the intracranial vessels. Previously noted abnormality in the M2 segment of the right MCA is no longer visualized with patent appearance of the MCA bilaterally. Distal distributions appear symmetric. 2. Better visualization of the posterior circulation. Dominant V4 on the right with calcific plaque without flow-limiting stenosis. 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 The distal V4 segment on the left is not visualized. A telephone call regarding the findings in the examination was made to and acknowledged by Dr. Baltazar from neurology at 5:30 a.m. on 01/06/2023. Workstation ID: [id number] CT Head Without Contrast (Stroke) Result Date: 01/06/2023 EXAMINATION: CT HEAD WITHOUT CONTRAST (STROKE) HISTORY: r mca syndrome Injury/Trauma or Illness?:Illness/Other How long have you had these symptoms (acute/chronic)?:Acute Reason for exam?:r mca syndrome Type of Exam?:Initial Additional signs and symptoms?:r mca syndrome Injury/Trauma or Illness?:Ill ness/Other How long have you had these symptoms (acute/chronic)?:Acuter mca syndrome COMPARISON: Head CT dated 01/06/2023 at 1:[address] angiogram of the head and neck dated 01/06/2023 at 2:33 a.m.. CONTRAST: None. TECHNIQUE CT Head with axial, coronal and sagittal reformats. Dose reduction techniques were achieved by using automated exposure control and/or adjustment of mA and/or kV according to patient size and/or use of iterative reconstruction technique. FINDINGS: FINDINGS: POSTOPERATIVE CHANGES: None. BRAIN PARENCHYMA: There is very subtle hypodensity present within the llamas radiata on the right, image 31/series 7. No intraparenchymal or extra-axial hemorrhage. No mass effect. No midline shift or herniation. Patchy low-density in the white matter also noted consistent with small vessel ischemic change. VENTRICLES/EXTRA-AXIAL SPACES: Enlarged, consistent with atrophy. VESSELS: The subtle hyperdensity previously noted in the right MCA is less conspicuous, image 18/series 7. Vascular calcifications are noted. Please refer to the CT angiogram report. SINUSES/MASTOIDS:Visualizedsinuses are clear. Erika bullosa bilaterally. Nasal septal deviation to the right with spur formation. Mastoids and middle ears are clear. MSK: No displaced or depressed calvarial fracture. OTHER: 1. Subtle low-density within the llamas radiata on the right. Early area of infarction not excluded. 2. Hyperdensity within the distal right MCA not as conspicuous as on the prior study. 3. Small vessel ischemic changes. 4. Atrophy. Workstation ID: [id number] XR Chest 1 View Result Date: 01/06/2023 EXAMINATION: XR CHEST PA/AP HISTORY: ORDERING SYSTEM PROVIDED HISTORY: Large stroke, mechanical fall, TECHNOLOGIST PROVIDED HISTORY: Illness/Other Reason for exam: stroke, mechanical fall Cancer History: u Surgery, RadiationHistory: u Encounter Type: Initial Additional signs and symptoms: . ORDERING SYSTEM PROVIDED DIAGNOSIS CODES: I63.9 Acute ischemic stroke (HCC) N28.9 Renal insufficiency COMPARISON: PA and lateral views of the chest dated 09/25/2021. TECHNIQUE: AP semi-erect portable chest radiograph performed. FINDINGS: Stable median sternotomy wires, mediastinal surgical clips, valve replacement and left atrial appendage clip. The trachea is midline. Stable mild prominence of the cardiomediastinal silhouette and stable mild atheromatous calcification at the aortic arch. Mild elevation of the right hemidiaphragm. There is no consolidation or infiltrates. There is no pleural effusionor pulmonary vascular congestion. There is no pneumothorax. The bony structures are osteopenic. There is no acute osseous abnormality. There is no acute cardiopulmonary process. Workstation ID: [id number] CT Angiogram Head Neck (STROKE) Result Date: 01/06/2023 EXAMINATION: CT ANGIOGRAM HEAD NECK (STROKE) HISTORY: LAMS of 5, appears to have a large clot. Toldby the stroke neurologist Dr. Raúl Baltazar to proceed with CTA at this time since there is a delay for ground transportation.; stroke alert, LAMS=5 Injury/Trauma or Illness?:Illness/Other How long have you had these symptoms (acute/chronic)?:Acute Reason for exam?:stroke alert, LAMS=5 Type of Exam?:Initial Additional signs and symptoms?:LKW: 0000 01/06/23 I63.9 Acute ischemic stroke (HCC)Injury/Trauma or Illness?:Illness/Other How long have you had these symptoms (acute/chronic)?:AcuteLAMS of5, appears to have a large clot. Told by the stroke neurologist Dr. Raúl Baltazar to proceed with CTA at this time since there is a delay for ground transportation.; stroke alert, LAMS=5 COMPARISON:Head CT dated 01/06/2023 at 1:46 a.m.. TECHNIQUE: CT angiogram of the head and neck was performed. Coronal, sagittal and 3-D reformats were created and reviewed. Carotid stenosis measurements were made according to the NASCET criteria. Dose reduction techniques were achieved by using automated exposure control and/or adjustment of mA and/or kV according to patient size and/or use of iterative reconstruction technique CONTRAST: 75 mL of Isovue 370 FINDINGS: NECK: AORTIC ARCH: Calcific plaque in the aortic arch. Allowing for streak artifacts, the origins the great vessels are patent. ANTERIOR CIRCULATION:Common carotid arteries are patent. There is calcific plaque in the carotid bifurcations.No flow-limiting stenosis is present on the right. On the left, there is approximately 45-50% stenosis. Cervical ICA are patent up to the skull base allowing for artifacts from dental work. POSTERIORCIRCULATION: There is diffuse calcific plaque noted in the origin, V1, and V2 segments of the right vertebral artery. There is moderate to severe stenosis present. The right vertebral artery is the dominant vessel. 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 DEVELOPMENTAL ANOMALIES: None. OTHER: No thyroid nodule or adenopathy. HEAD BRAIN: Please see the separate dictation of the head CT. ANTERIOR CIRCULATION: The intra petrous, intra cavernous, and supraclinoid ICA are patent with calcific plaque associated with mild to moderate stenosis in the intra cavernous and supraclinoid portions. Intracranial termini are patent. ACApatent bilaterally. Left MCA is patent. On the right, there is occlusion of the distal V2 segment of the superior division right MCA, image 54/series 12 and image 79/series 13. This is partially obscured on the axial images but appears to be present on image 40/series 14. Distal distributions appear symmetric. No large vessel occlusion or aneurysm. POSTERIOR CIRCULATION: Calcific plaque in the V4 segment of the right vertebral artery with short segment high-grade stenosis of the junction of V3 and V4 segments on the right. Calcific plaque is seen beyond the stenosis. Origin of the PICA is patent on the right. Left vertebral artery is occluded at the junction of V3 and V4 segments. Contrast is seen within the PICA on the right with fate contrast seen on the left. Basilar artery is patent. SCA patent. [employer] patent. Distal [employer] distributions are symmetric. No large vessel occlusion is seen involving the [employer]. There is mild stenosis in the P1 segment on the left. DEVELOPMENTAL ANOMALIES: None. OTHER: No pathologic enhancing lesions are seen. This study is not optimized for evaluation of theintracranial veins. 1. Calcific plaque in the carotid bifurcations bilaterally, worse on the left than the right. Thereis approximately 40-50% stenosis in the left carotid bifurcation. 2. Distal right MCA superior division occlusion as described above. 3. Right vertebral artery is dominant demonstrates diffuse calcific plaque with moderate to severe stenosis throughout the V1 and V2 segments. Additional high- grade stenosis with soft plaque is also seen in the proximal V4 segment. The left vertebral artery is diffusely hypoplastic. V4 segment on the left is occluded. There is faint contrast seen within the left PICA. A telephone call regarding the findings examination was made to and acknowledged by Dr. Baltazar from neurology at 3:20 a.m. on 01/06/2023. Workstation ID: [id number] CT Cervical Spine Without Contrast Result Date: 01/06/2023 EXAMINATION: CT CERVICAL SPINE WITHOUT CONTRAST HISTORY: Patient with unwitnessed mechanical fall into the bathtub. No complains of neck pain but elderly and with large stroke. Injury/Trauma or Illness?:Injury/Trauma How long have you had these symptoms (acute/chronic)?:Acute Reason for exam?:denies neck pain, fall from standing into bathtub Type of Exam?:Initial Mechanism of injury?:fall I63.9 Acute ischemic stroke (HCC)Injury/Trauma or Illness?:Injury/Trauma How long have you had these symptoms (acute/chronic)?:AcutePatient with unwitnessed mechanical fall into the bathtub. No complains of neck pain but elderly and with large stroke. COMPARISON: None available at time of dictation. TECHNIQUE: CT imaging of the cervical spine was performed. The patient is suboptimally positioned. Dose reduction techniques were achieved by using automated exposure control and/or adjustment of mA and/or kV according to patient size and/or use of iterative reconstruction technique. CONTRAST: None. FINDINGS: COMPRESSION FRACTURES: No fracture or vertebral body collapse. No bony displacement. No asymmetric widening of the facets. There is nonspecific straightening of the normal cervical curve. PREVERTEBRAL SOFT TISSUES: Normal. CRANIOCERVICAL JUNCTION:There is a normal relationship of the occipital condyles, lateral masses of C1, and articular surfaces of C2. The base of the dens and body of C2 are intact. There is narrowing of the predental space with sclerosis and spurring arising from the anterior arch of C1 and the dens. POSTERIOR FOSSA: Cerebellar tonsils are above the foramen magnum. Disc levels: C2-C3: No disc herniation. No spinal canal or foraminal narrowing. C3- C4: Disc space narrowing. Central disc osteophyte complex with moderate central canal stenosis. Uncovertebral joint degeneration and facet degeneration. Moderate bilateral foraminal stenosis. C4-C5: Disc space narrowing posteriorly. Central disc osteophyte complex. Mild central canal stenosis. Neural foramina patent. C5-C6: No focal disc herniation or bulging. Bilateral facet degeneration with uncovertebral joint degeneration worse on the left than the right. Moderate left foraminal stenosis. C6-C7: Disc space narrowing. Central and left- sided disc osteophyte complex with mild to moderate central canal stenosis. M oderate bilateral foraminal stenosis. C7-T1: Beam hardening artifacts. Bony canal is patent. There is subtle loss of height in concave appearance of the superior endplate of T1. No cortical disruption is seen. This is consistent with a indeterminate age mild superior endplate compression fracture. Correlation with MRI would be recommended. Central canal patent. Neural foramina patent. UPPER THORACIC SPINE: At T1-T2, central canal and neural foramina patent. Beam hardening artifacts are present.OTHER: No thyroid nodule or adenopathy. There is dense calcific plaque noted throughout the visualized portion of the right vertebral artery. 1. Examination limited by patient positioning. 2. No gross evidence of fracture. 3. Multilevel cervical spondylosis. 4. Dense calcific plaque with stenosis in the visualized portion of the right vertebral artery. Workstation ID: [id number] CT Head Without Contrast (Stroke) Result Date: 01/06/2023 EXAMINATION: CT HEAD WITHOUT CONTRAST (STROKE) HISTORY: ORDERING SYSTEM PROVIDED HISTORY: Acute ischemic stroke (HCC), TECHNOLOGIST PROVIDED HISTORY: Illness/Other Reason for exam: left facial droop,left arm weakness Encounter Type: Initial Additional signs and symptoms: LKW: 0000 01/06/23 ORDERING SYSTEM PROVIDED DIAGNOSIS CODES: I63.9 Acute ischemic stroke (HCC) COMPARISON: None TECHNIQUE: CT examination of the head without IV contrast. Dose reduction techniques were achieved by using automated exposure control and/or adjustment of mA and/or kV according to patient size and/or use of iterative reconstruction technique. FINDINGS: Hyperattenuation is noted in the M2 segment of the right MCA, suspicious for thrombus. The ventricles, sulci, and basilar cisterns are mildly prominent, consistent with mild generalized cerebral volume loss/atrophy, appropriate for the patient's age. Mild hypoattenuation is noted in the periventricular white matter of the frontal lobes, consistent with chronic small vessel ischemic changes. A couple of small old lacunar infarcts are also suspected in the bilateral centrum semiovale white matter (axial series 5, image 37). The brain parenchyma appears otherwise normal. Atherosclerotic calcifications are noted in the distal internal carotid arteries. Nointracranial hemorrhage, abnormal mass effect, or definite CT signs of acute infarct. The visualized paranasal sinuses and mastoid air cells are clear. No acute fracture is seen. The impression was called to Dr. Kamilah Ramos at the time dictation on 01/06/2023 at 2:01 a.m. 1. Hyperattenuation in the M2 segment of the right MCA, suspicious for thrombus. 2. No other acute intracranial abnormality is seen. MRI is more sensitive than CT for the detection of acute infarct. 3. Mild chronic small vessel ischemic changes in the periventricular white matter, and a couple small old lacunar infarcts. Workstation ID: [id number] Follow-Ups: Christina Branham, DRAFTER [employer]OGR[employer] [address] [address] Go on 02/01/2023 Office Visit with Vignesh Branham CNP Wednesday 2:30 PM [facility] [address] Medical Office [facility] [phone] Go on 04/13/2023 Nurse Visit Wednesday 2:00 PM [facility] [address] [place] [id number] Schedule an appointment as soon as possible for a visit in 1 week(s) The office will be making a follow up appointment for you If you are not contacted,please call to schedule. Attestation: Patient was appropriate to participate in an inpatient rehabilitation program. A multidisciplinary team approach was necessary including rehab physician, consulting physicians, rehab nursing, PT OT, ACADEMIC SERVICES PROFESSIONAL, TR and social work for medication management, bowel and bladder care, skin care, respiratory care, strengthening, endurance, mobility, ROM, gait and balance training, ADLs, patient and family training, cognition, swallow evaluation and therapy, coping, community re-entry, functional skills retraining, and other services to maximize functional independence that was best served with acute inpatient rehabilitation as opposed to lower level of care. Rehabilitation goals were met. Patient instructions, including activity, were given to the patient/family at discharge. Please seethe After Visit Summary in the electronic medical record for details. Time spent on discharge: > 30 minutes, I reviewed the medication list at length with the patient, including indications for medications, duration of treatment, and potential side effects, as well as the various upcoming follow-up appointments. Signed: Shahrzad Odom DO Physical Medicine & Rehabilitation documented in this [id number] Hospital Discharge instructions * Discharge Instr - Care Coordination* Katie Cuellar RN - 01/25/2023 8:36 AM EST If you have any question related to Payment concerns or Financial aide applications you can call Financial Assistance at [facility] : Contact phone numbers : [phone] To apply Free Copies of the Financial Assistance Policy and Applications for Financial Assistance may be obtained by: Visiting an [facility] main registration or emergency department desk. Calling [facility] s Customer Call Centers Downloading it from [email or web address] ce/ Mail completed applications to address on page or deliver it to the main registration desk at an [facility]. Questions regarding the Financial Assistance Policy or the Application form (including assistance completing the form) may be addressed by calling or going to one of the [facility] financial counselor s office . It is important for you to keep all of the follow up appointments as scheduled. If you have a conflict or are unable to keep the appointment you will need to call to reschedule . Recommended to continue skilled services upon discharge : Physical Therapy , Occupational Therapy Speech Therapy Out patient therapy has been scheduled to start on 01/27/2023 starting at 845 for PT/OT/ST at [facility] . Please arrive 15 mins prior to scheduled start time , you will need to go to patient registration (front desk receptionist can give directions) prior to going to therapy area , you will only have to do this for the first visit. Recommend: 24 hour supervision/assistance available initially upon discharge to home , assist with medications Recommended : No driving, use of firearms, drinking or drug use. Refrain from driving/operating equipment/machinery and returning to work at this time( if applicable) . May/Will : Need assistance with ADL's (activities of daily living) dressing , grooming/hygiene & bathroom care ( toileting) May/Will : Need cues/reminders to complete task/sequences for safety ,for daily activities & tomaintain any precautions or restrictions you may have. May/Will need reminders related to neglect /weakness on affected side & to promote weak side awareness. Support weak side/neglect side arm with pillow while in bed and or with an arm tray while in wheelchair Kitchen safety -recommend to preform activities in kitchen with assist for safety initially. Recommended diabetic diet, chopped meat Ambulation/mobility/transfers: Use assistive device recommended by therapy staff at discharge. Can be at a wheelchair /chair/bed level when assistance is not available for mobility/tasks. Recommended to initially have a caregiver at your side to help reduce risk of falls. Caregiver should use gait belt being sent home with you, will need to have a hand on you when stand/transfer/walk initially. Caregiver should stay close by your side during mobility due to weakness/fatigue/balance . Recommend first floor set up for bedroom/bathroom to avoid stairs in home. Will need assistance on steps to go up & down, should not attempt alone. Should not attempt steps or curb step alone Install handrails / grab bars on stairs if not already in place. ( inside home & to enter home ) Do not attempt steps for laundry if located off main floor or in basement area at this time, recommended you have family member do laundry for you. Use caution when ambulating , going up & down stairs or on uneven surfaces , your balance has not yet returned to normal and you are still at risk for falls Nonskid foot wear when up. Always have shoes or non skid socks on before you start walking. Sit at edge of bed to make sure you are not dizzy before getting up to stand/transfer/walk May fatigue easily/quickly with actives/mobility and require frequent rest breaks due to weakness/fatigue. Recommended: Monitor Blood glucose at home as instructed. Keep a log of recordings to share with your Primary care doctor at follow up appointment. Shift position every 20 minutes when sitting in chair and every 2 hours when in bed to prevent pressure wounds (bed sores). Monitor skin daily for signs of redness or breakdown. Keep skin clean & dry. Monitor skin to Buttock ( sacrum /coccyx ) skin folds, elbows & heels daily for redness or breakdown . May use barrier cream or protective barrier dressing if needed. Reposition every 2 hrs and as needed. Offload bilateral heels at all times as tolerated. Monitor incisions/wounds; Left elbow- open to air Notify doctor : If you have symptoms of infection, such as: Increased pain, swelling, warmth, or redness around the area Red streaks leading from the area Pus/drainage from the area A fever. * Attachments The following attachments cannot be sent through Care Everywhere. * Direct Oral Anticoagulants: Non-Vitamin K Antagonist (Sol[place] Islander) * Fall Prevention ([place] Islander) documented in this [id number] Note* Plan of Care - Marissa Glasgow RN - 01/25/2023 2:25 AM EST [facility] Nurse Notes Problem: Actual or potential alteration in health Goal: Absence of healthcare acquired conditions Outcome: Partially Met Goal: Knowledge of Interdisciplinary Plan of Care Outcome: Partially Met Goal: Knowledge of Enviroment Outcome: Partially Met Problem: Pressure Ulcer - Risk of Goal: Absence of pressure ulcer Outcome: Partially Met Problem: Pain Goal: Manage acute pain Outcome: Partially Met Goal: Manage chronic pain Outcome: Partially Met Goal: Reduced pain sensation Outcome: Partially Met Goal: Achievement of comfort function goal Outcome: Partially Met Problem: Falls, Risk of Goal: Absence of falls Outcome: Partially Met [id number] Note* Plan of Care - Ludin Stock RN - 01/23/2023 11:06 PM EST Problem: Actual or potential alteration in health Goal: Absence of healthcare acquired conditions Outcome: Partially Met Goal: Knowledge of Interdisciplinary Plan of Care Outcome: Partially Met Goal: Knowledge of Enviroment Outcome: Partially Met Problem: Pressure Ulcer - Risk of Goal: Absence of pressure ulcer Outcome: Partially Met Problem: Pain Goal: Manage acute pain Outcome: Partially Met Goal: Manage chronic pain Outcome: Partially Met Goal: Reduced pain sensation Outcome: Partially Met Goal: Achievement of comfort function goal Outcome: Partially Met Problem: Falls, Risk of Goal: Absence of falls Outcome: Partially Met [id number] Note* Plan of Care - Ludin Stock RN - 01/23/2023 2:00 AM EST Problem: Actual or potential alteration in health Goal: Absence of healthcare acquired conditions Outcome: Partially Met Goal: Knowledge of Interdisciplinary Plan of Care Outcome: Partially Met Goal: Knowledge of Enviroment Outcome: Partially Met Problem: Pressure Ulcer - Risk of Goal: Absence of pressure ulcer Outcome: Partially Met Problem: Pain Goal: Manage acute pain Outcome: Partially Met Goal: Manage chronic pain Outcome: Partially Met Goal: Reduced pain sensation Outcome: Partially Met Goal: Achievement of comfort function goal Outcome: Partially Met Problem: Falls, Risk of Goal: Absence of falls Outcome: Partially Met [place] [id number] Note* Plan of Care - Kiana Rodriguez RN - 01/21/2023 1:41 PM EST [facility] Nurse Notes Problem: Actual or potential alteration in health Goal: Absence of healthcare acquired conditions Outcome: Partially Met Goal: Knowledge of Interdisciplinary Plan of Care Outcome: Partially Met Goal: Knowledge of Enviroment Outcome: Partially Met Problem: Pressure Ulcer - Risk of Goal: Absence of pressure ulcer Outcome: Partially Met Problem: Pain Goal: Manage acute pain Outcome: Partially Met Goal: Manage chronic pain Outcome: Partially Met Goal: Reduced pain sensation Outcome: Partially Met Goal: Achievement of comfort function goal Outcome: Partially Met Problem: Falls, Risk of Goal: Absence of falls Outcome: Partially Met [place] [id number] Note* Plan of Care - Izabella Powell RN - 01/21/2023 1:49 AM EST [facility] Nurse Notes Problem: Actual or potential alteration in health Goal: Absence of healthcare acquired conditions Outcome: Partially Met Goal: Knowledge of Interdisciplinary Plan of Care Outcome: Partially Met Goal: Knowledge of Enviroment Outcome: Partially Met Problem: Pressure Ulcer - Risk of Goal: Absence of pressure ulcer Outcome: Partially Met Problem: Pain Goal: Manage acute pain Outcome: Partially Met Goal: Manage chronic pain Outcome: Partially Met Goal: Reduced pain sensation Outcome: Partially Met Goal: Achievement of comfort function goal Outcome: Partially Met Problem: Falls, Risk of Goal: Absence of falls Outcome: Partially Met [place] [id number] Consult note* Kishore Ventura MD - 01/20/2023 5:02 PM EST NEPHROLOGY CONSULTATION NOTE [facility] Patient Name: Kevin White [facility] [id number] [id number] 1940 Requesting physician: Hospitalist Reason for consult: AJAY vs CKD Impression/Plan : Acute kidney injury due to hemodynamic mediated changes in the setting of renal hypoperfusion; has had hospitalization from 01/06-01/15 due to stroke. UA showed 30mg protein and Hyaline casts. -renal US showed no hydronephrosis. Showed simple cyst. -creatinine 1.6mg/dL. not far from baseline which is ~1.1-1.3mg/dL -likely has CKD stage III with baseline creatinine as noted above due to hypertension, CAD, long standing diabetes, and microvascular disease. -Avoid NSAIDs. No need for diuretics; appears euvolemic -We will sign off at this time. We will set up follow up with our office in [place]. 2. S/p MCA CVA s/p TPA -hospitalized at [facility] 01/06-01/15 -currently in Inpatient rehab -on aspirin and eliquis 3. Hypertension: Blood pressures stable 4. Afib: -on tikosyn History of Presenting Illness: Kevin White is a 82 y.o. 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 CKD stage II/III with baseline creatinine ~1.1-1.3mg/dL presented to the inpatient rehab from [facility] after experiencing a stroke where he was hospitalized from 01/06/23-01/15/23. He was admitted to [facility] and found to haveacute right MCA CVA s/p TPA. He was started on ASA and elquis in [facility]. -We are being consulted for creatinine of 1.3-1.6mg/dL. -appears over review that baseline creatinine is ~1.1-1.3mg/dL. He has never followed with nephrology in the past. Renal US showed right kidney 11x6x4.5cm no hydronephrosis, left kidney 10.7x6.5x5.1cm no hydronephrosis.. a 1.4cm cyst is noted. -UA showed cloudy appearance, 30mg protein, 6-10 hyaline casts. -echo showed EF 59%, aortic bioprosthesis appears well-seated not well visualized. -left atrial chamber mildly enlarged with a left atrium. History: Past Medical History: Diagnosis Date Arthritis Back pain CHF (congestive heart failure) (HCC) COPD (chronic obstructive pulmonary disease) (HCC) Coronary artery disease Diabetes mellitus (HCC) Diabetes mellitus, type 2 (HCC) Disease of thyroid gland GERD (gastroesophageal reflux disease) Hernia of abdominal wall Hyperlipidemia Hypertension Myocardial infarction (HCC) Sleep apnea, obstructive refuses to use c-pap Stroke (HCC) Past Surgical History: Procedure Laterality Date CABG AVR W/ MAZE Bilateral 08/12/2021 Procedure: CORONARY ARTERY BYPASS GRAFT TIMES THREE (krueger-lad, svg-d1, svg- drca)WITH ENDOVEIN HARVEST, Aortic valve replacement (27mm Paul Inspiris), full LA MAZE (Encompass RFA box, RFA HEATHER, cryoRA caval and RAA line), LEFT ATRIAL APPENDAGE LIGATION (40mm AtriCLIP), TRANSESOPHAGEAL ECHOCARDIOGRAM; Surgeon: Luis Beasley MD; Location: [facility]; Service: Cardiothoracic CARDIAC CATHETERIZATION CARDIAC CATHETERIZATION Bilateral 07/01/2021 No intervention, right radial CARDIAC CATHETERIZATION N/A 07/01/2021 Procedure: Coronary Angiogram; Surgeon: Shmuel Villalpando MD; Location: [facility]; Service: Cardiovascular CARDIAC CATHETERIZATION N/A 07/01/2021 Procedure: Right Heart Cath; Surgeon: Shmuel Villalpando MD; Location: [facility]; Service: Cardiovascular CARDIAC CATHETERIZATION N/A 07/01/2021 Procedure: Left Ventriculogram; Surgeon: Shmuel Villalpando MD; Location: [facility]; Service: Cardiovascular CARDIAC CATHETERIZATION N/A 07/01/2021 Procedure: Left Heart Cath; Surgeon: Shmuel Villalpando MD; Location: [facility]; Service: Cardiovascular cataracts removed Bilateral CORONARY STENT PLACEMENT EP - INTERVENTION N/A 08/24/2021 Procedure: Cardioversion/CTA; Surgeon: Abhishek Lauren MD; Location: [facility] EP LAB; Service: Cardiovascular HERNIA REPAIR W/HYDROCELE Right Family History: Family History Problem Relation Age of Onset Heart disease Father [] Unable to obtain due to ventilated and/or neurologic status Social History Socioeconomic History Marital status: Spouse name: Antonella Occupational History Employer: OTHER- Occupation: Retired from [employer] Tobacco Use Smoking status: Never Smokeless tobacco: Never Vaping Use Vaping Use: Never used Substance and Sexual Activity Alcohol use: Not Currently Comment: beer occasionally Drug use: Never Sexual activity: Not Currently Social Determinants of Health Transportation Needs: No Transportation Needs (01/16/2023) PRAPARE - Transportation Lack of Transportation (Medical): No Lack of Transportation (Non-Medical): No [] Unable to obtain due to ventilated and/or neurologic status Living Arrangements: Spouse/significant other Support Systems: Spouse/significant other, Children, Family members Home Medications: Outpatient Medications as of 01/20/2023 Medication Sig amLODIPine (NORVASC) 10 MG tablet Take 1 (one) tablet (10 mg total) by mouth daily . apixaban (ELIQUIS) 5 mg Tab Take 1 (one) tablet (5 mg total) by mouth 2 (two) times a day . furosemide (LASIX) 20 MG tablet Take 1 (one) tablet (20 mg total) by mouth daily . magnesium oxide (MAG-OX) 400 mg (241.3 mg magnesium) tablet Take 1 (one) tablet (400 mg total) by mouth daily Start: 01/09/23. potassium chloride SA (K-DUR,KLOR-CON) 20 MEQ tablet Take 1 (one) tablet (20 mEq total) by mouth daily . Current Hospital Medications: Scheduled Meds: amLODIPine 10 mg Oral Daily apixaban 5 mg Oral BID atorvastatin 40 mg Oral Nightly cyanocobalamin 1,000 mcg Oral Daily dofetilide 250 mcg Oral Q12H GENIE FLUoxetine 20 mg Oral Daily lispro insulin 0-15 Units Subcutaneous at bedtime insulin lispro 0-30 Units Subcutaneous TID AC levothyroxine 175 mcg Oral Daily lisinopriL 10 mg Oral Daily with lunch magnesium oxide 400 mg Oral Daily melatonin 5 mg Oral Nightly multivitamin 1 tablet Oral Daily pantoprazole 40 mg Oral Daily polyethylene glycol 17 g Oral Daily senna-docusate 1 tablet Oral BID sodium chloride (PF) 5 mL Intravenous Q8H GENIE tamsulosin 0.4 mg Oral After evening meal Continuous Infusions: sodium chloride 0.9 % PRN Meds:.acetaminophen, albuterol, aluminum-magnesium hydroxide-simethicone, bisacodyL, hydrALAZINE, lidocaine HCL, ondansetron, polyethylene glycol, Saline lock IV AND sodium chloride (PF) AND sodium chloride (PF) AND sodium chloride 0.9 %, traZODone sodium chloride 0.9 % Allergies: I have reviewed the patient's allergies. Patient has no known allergies. Review of Systems: [x] CV, Resp, GI, Neuro, and all other systems reviewed and negative other than listed in HPI. [] Unable to obtain due to intubation and/or neurologic status. Objective Findings: Vitals:BP (!) 147/54 Pulse 81 Temp 97.9 F (36.6 C) (Oral) Resp 16 Ht 6' Wt 107.4 kg (236 lb 12.4 oz) SpO2 95% BMI 32.11 kg/m Intake/Output last 3 shifts: Intake/Output Summary (Last 24 hours) at 01/20/2023 1702 Last data filed at 01/20/2023 1324 Gross per 24 hour Intake 960 ml Output -- Net 960 ml I/O last 3 completed shifts: In: 720 [P.O.:720] Out: 253 [Urine:253] Physical Examination: General: Age appropriate, NAD. HEENT: Normocephalic, no scleral icterus. Neck: No JVD. Heart: Regular, no murmur, no rub/gallop. Lungs: Clear to ascultation, no rales/wheezing/rhonchi. Abdomen: Soft, nontender, no supra-public fullness or tenderness. Extremities: No clubbing/cyanosis, no edema. Skin: Warm, dry, normal turgor, no rash, no bruise, no petichiae. Neuro: No myoclonus or tremor. Psych: Normal affect. : [] Adame present [x] Adame not present Results/Medications Reviewed: 01/20/23 5:02 PM: Laboratory, Microbiology, Pathology, Radiology, Cardiology, Medications and Transcriptions Laboratory: Results from last 7 days Lab Units 01/18/23 0718 01/16/23 0921 WBC K/mcL 6.08 6.83 HGB g/dL 13.4* 13.1* HCT % 41.5 40.5* PLT K/mcL 172 184 Results from last 7 days Lab Units 01/20/23 0600 01/19/23 0703 01/18/23 0718 SODIUM mmol/L 137 136 136 POTASSIUM mmol/L 4.9 4.5 4.8 CHLORIDE mmol/L 106 104 105 BICARB mmol/L 27 26 27 BUN mg/dL 25 25 22 CREATININE mg/dL 1.55* 1.60* 1.45* EGFR mL/min/1.73 m2 45* 43* 48* GLUCOSE mg/dL 132* 158* 134* CALCIUM mg/dL 8.5 9.0 8.8 Urinalysis Results from last 7 days Lab Units 01/19/23 1154 COLOR, UR Yellow CLARITY, UR Cloudy* SPEC GRAV 1.027* PH, UR 5.0 GLUCOSE, UR mg/dL 50* KETONES, UR mg/dL Trace* BILIRUBIN, UR Negative UROBILINOGEN, UR mg/dL 2.0* BLOOD, UR Negative NITRITE, UR Negative LEUK RAFAELA, UR Negative MUCUS, UR /lpf Rare WBC, UR /hpf 12* BACTERIA, UR /hpf None Seen HYALINE CASTS /lpf 6-10* Comments: Thank you for allowing us to participate in the care of this patient. We will continue to follow. Please call if questions or concerns arise. [employer] Work Phone: [phone] 295-192012-06-2023 Consult note* Kishore Ventura MD - 01/20/2023 5:02 PM EST NEPHROLOGY CONSULTATION NOTE [facility] Patient Name: Kevin White MR #: [id number] : 1940 Requesting physician: Hospitalist Reason for consult: AJAY vs CKD Impression/Plan : Acute kidney injury due to hemodynamic mediated changes in the setting of renal hypoperfusion; has had hospitalization from 01/06-01/15 due to stroke. UA showed 30mg protein and Hyaline casts. -renal US showed no hydronephrosis. Showed simple cyst. -creatinine 1.6mg/dL. not far from baseline which is ~1.1-1.3mg/dL -likely has CKD stage III with baseline creatinine as noted above due to hypertension, CAD, long standing diabetes, and microvascular disease. -Avoid NSAIDs. No need for diuretics; appears euvolemic -We will sign off at this time. We will set up follow up with our office in [place]. 2. S/p MCA CVA s/p TPA -hospitalized at [facility] 01/06-01/15 -currently in Inpatient rehab -on aspirin and eliquis 3. Hypertension: Blood pressures stable 4. Afib: -on tikosyn History of Presenting Illness: Kevin White is a 82 y.o. 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 CKD stage II/III with baseline creatinine ~1.1-1.3mg/dL presented to the inpatient rehab from [facility] after experiencing a stroke where he was hospitalized from 01/06/23-01/15/23. He was admitted to [facility] and found to haveacute right MCA CVA s/p TPA. He was started on ASA and elquis in [facility]. -We are being consulted for creatinine of 1.3-1.6mg/dL. -appears over review that baseline creatinine is ~1.1-1.3mg/dL. He has never followed with nephrology in the past. Renal US showed right kidney 11x6x4.5cm no hydronephrosis, left kidney 10.7x6.5x5.1cm no hydronephrosis.. a 1.4cm cyst is noted. -UA showed cloudy appearance, 30mg protein, 6-10 hyaline casts. -echo showed EF 59%, aortic bioprosthesis appears well-seated not well visualized. -left atrial chamber mildly enlarged with a left atrium. History: Past Medical History: Diagnosis Date Arthritis Back pain CHF (congestive heart failure) (HCC) COPD (chronic obstructive pulmonary disease) (HCC) Coronary artery disease Diabetes mellitus (HCC) Diabetes mellitus, type 2 (HCC) Disease of thyroid gland GERD (gastroesophageal reflux disease) Hernia of abdominal wall Hyperlipidemia Hypertension Myocardial infarction (HCC) Sleep apnea, obstructive refuses to use c-pap Stroke (HCC) Past Surgical History: Procedure Laterality Date CABG AVR W/ MAZE Bilateral 08/12/2021 Procedure: CORONARY ARTERY BYPASS GRAFT TIMES THREE (krueger-lad, svg-d1, svg- drca)WITH ENDOVEIN HARVEST, Aortic valve replacement (27mm Paul Inspiris), full LA MAZE (Encompass RFA box, RFA HEATHER, cryoRA caval and RAA line), LEFT ATRIAL APPENDAGE LIGATION (40mm AtriCLIP), TRANSESOPHAGEAL ECHOCARDIOGRAM; Surgeon: Luis Beasley MD; Location: [facility]; Service: Cardiothoracic CARDIAC CATHETERIZATION CARDIAC CATHETERIZATION Bilateral 07/01/2021 No intervention, right radial CARDIAC CATHETERIZATION N/A 07/01/2021 Procedure: Coronary Angiogram; Surgeon: Shmuel Villalpando MD; Location: [facility]; Service: Cardiovascular CARDIAC CATHETERIZATION N/A 07/01/2021 Procedure: Right Heart Cath; Surgeon: Shmuel Villalpando MD; Location: [facility]; Service: Cardiovascular CARDIAC CATHETERIZATION N/A 07/01/2021 Procedure: Left Ventriculogram; Surgeon: Shmuel Villalpando MD; Location: [facility]; Service: Cardiovascular CARDIAC CATHETERIZATION N/A 07/01/2021 Procedure: Left Heart Cath; Surgeon: Shmuel Villalpando MD; Location: [facility]; Service: Cardiovascular cataracts removed Bilateral CORONARY STENT PLACEMENT EP - INTERVENTION N/A 08/24/2021 Procedure: Cardioversion/CTA; Surgeon: Abhishek Lauren MD; Location: [facility]; Service: Cardiovascular HERNIA REPAIR W/HYDROCELE Right Family History: Family History Problem Relation Age of Onset Heart disease Father [] Unable to obtain due to ventilated and/or neurologic status Social History Socioeconomic History Marital status: Spouse name: Antonella Occupational History Employer: OTHER- Occupation: Retired from [employer] Tobacco Use Smoking status: Never Smokeless tobacco: Never Vaping Use Vaping Use: Never used Substance and Sexual Activity Alcohol use: Not Currently Comment: beer occasionally Drug use: Never Sexual activity: Not Currently Social Determinants of Health Transportation Needs: No Transportation Needs (01/16/2023) PRAPARE - Transportation Lack of Transportation (Medical): No Lack of Transportation (Non-Medical): No [] Unable to obtain due to ventilated and/or neurologic status Living Arrangements: Spouse/significant other Support Systems: Spouse/significant other, Children, Family members Home Medications: Outpatient Medications as of 01/20/2023 Medication Sig amLODIPine (NORVASC) 10 MG tablet Take 1 (one) tablet (10 mg total) by mouth daily . apixaban (ELIQUIS) 5 mg Tab Take 1 (one) tablet (5 mg total) by mouth 2 (two) times a day . furosemide (LASIX) 20 MG tablet Take 1 (one) tablet (20 mg total) by mouth daily . magnesium oxide (MAG-OX) 400 mg (241.3 mg magnesium) tablet Take 1 (one) tablet (400 mg total) by mouth daily Start: 01/09/23. potassium chloride SA (K-DUR,KLOR-CON) 20 MEQ tablet Take 1 (one) tablet (20 mEq total) by mouth daily . Current Hospital Medications: Scheduled Meds: amLODIPine 10 mg Oral Daily apixaban 5 mg Oral BID atorvastatin 40 mg Oral Nightly cyanocobalamin 1,000 mcg Oral Daily dofetilide 250 mcg Oral Q12H GENIE FLUoxetine 20 mg Oral Daily lispro insulin 0-15 Units Subcutaneous at bedtime insulin lispro 0-30 Units Subcutaneous TID AC levothyroxine 175 mcg Oral Daily lisinopriL 10 mg Oral Daily with lunch magnesium oxide 400 mg Oral Daily melatonin 5 mg Oral Nightly multivitamin 1 tablet Oral Daily pantoprazole 40 mg Oral Daily polyethylene glycol 17 g Oral Daily senna-docusate 1 tablet Oral BID sodium chloride (PF) 5 mL Intravenous Q8H GENIE tamsulosin 0.4 mg Oral After evening meal Continuous Infusions: sodium chloride 0.9 % PRN Meds:.acetaminophen, albuterol, aluminum-magnesium hydroxide-simethicone, bisacodyL, hydrALAZINE, lidocaine HCL, ondansetron, polyethylene glycol, Saline lock IV AND sodium chloride (PF) AND sodium chloride (PF) AND sodium chloride 0.9 %, traZODone sodium chloride 0.9 % Allergies: I have reviewed the patient's allergies. Patient has no known allergies. Review of Systems: [x] CV, Resp, GI, Neuro, and all other systems reviewed and negative other than listed in HPI. [] Unable to obtain due to intubation and/or neurologic status. Objective Findings: Vitals:BP (!) 147/54 Pulse 81 Temp 97.9 F (36.6 C) (Oral) Resp 16 Ht 6' Wt 107.4 kg (236 lb 12.4 oz) SpO2 95% BMI 32.11 kg/m Intake/Output last 3 shifts: Intake/Output Summary (Last 24 hours) at 01/20/2023 1702 Last data filed at 01/20/2023 1324 Gross per 24 hour Intake 960 ml Output -- Net 960 ml I/O last 3 completed shifts: In: 720 [P.O.:720] Out: 253 [Urine:253] Physical Examination: General: Age appropriate, NAD. HEENT: Normocephalic, no scleral icterus. Neck: No JVD. Heart: Regular, no murmur, no rub/gallop. Lungs: Clear to ascultation, no rales/wheezing/rhonchi. Abdomen: Soft, nontender, no supra-public fullness or tenderness. Extremities: No clubbing/cyanosis, no edema. Skin: Warm, dry, normal turgor, no rash, no bruise, no petichiae. Neuro: No myoclonus or tremor. Psych: Normal affect. : [] Adame present [x] Adame not present Results/Medications Reviewed: 01/20/23 5:02 PM: Laboratory, Microbiology, Pathology, Radiology, Cardiology, Medications and Transcriptions Laboratory: Results from last 7 days Lab Units 01/18/23 0718 01/16/23 0921 WBC K/mcL 6.08 6.83 HGB g/dL 13.4* 13.1* HCT % 41.5 40.5* PLT K/mcL 172 184 Results from last 7 days Lab Units 01/20/23 0600 01/19/23 0703 01/18/23 0718 SODIUM mmol/L 137 136 136 POTASSIUM mmol/L 4.9 4.5 4.8 CHLORIDE mmol/L 106 104 105 BICARB mmol/L 27 26 27 BUN mg/dL 25 25 22 CREATININE mg/dL 1.55* 1.60* 1.45* EGFR mL/min/1.73 m2 45* 43* 48* GLUCOSE mg/dL 132* 158* 134* CALCIUM mg/dL 8.5 9.0 8.8 Urinalysis Results from last 7 days Lab Units 01/19/23 1154 COLOR, UR Yellow CLARITY, UR Cloudy* SPEC GRAV 1.027* PH, UR 5.0 GLUCOSE, UR mg/dL 50* KETONES, UR mg/dL Trace* BILIRUBIN, UR Negative UROBILINOGEN, UR mg/dL 2.0* BLOOD, UR Negative NITRITE, UR Negative LEUK RAFAELA, UR Negative MUCUS, UR /lpf Rare WBC, UR /hpf 12* BACTERIA, UR /hpf None Seen HYALINE CASTS /lpf 6-10* Comments: Thank you for allowing us to participate in the care of this patient. We will continue to follow. Please call if questions or concerns arise. * Bethany Marroquin CNP - 01/20/2023 11:13 AM ESTAssociated Order(s): IP CONSULT TO NEPHROLOGY NEPHROLOGY CONSULTATION NOTE [facility] Patient Name: Kevin White MR #: [id number] : 1940 Requesting physician: Hospitalist Reason for consult: AJAY vs CKD Impression/Plan : Acute kidney injury due to hemodynamic mediated changes in the setting of renal hypoperfusion; has had hospitalization from 01/06-01/15 due to stroke. UA showed 30mg protein and Hyaline casts. -renal US showed no hydronephrosis. Showed simple cyst. -creatinine 1.6mg/dL. not far from baseline which is ~1.1-1.3mg/dL -likely has CKD stage III with baseline creatinine as noted above due to hypertension, CAD, long standing diabetes, and microvascular disease. -Avoid NSAIDs. No need for diuretics; appears euvolemic -We will sign off at this time. We will set up follow up with our office in [place]. 2. S/p MCA CVA s/p TPA -hospitalized at [facility] 01/06-01/15 -currently in Inpatient rehab -on aspirin and eliquis 3. Hypertension: Blood pressures stable 4. Afib: -on tikosyn History of Presenting Illness: Kevin White is a 82 y.o. 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 CKD stage II/III with baseline creatinine ~1.1-1.3mg/dL presented to the inpatient rehab from [facility] after experiencing a stroke where he was hospitalized from 01/06/23-01/15/23. He was admitted to [facility] and found to haveacute right MCA CVA s/p TPA. He was started on ASA and elquis in [facility]. -We are being consulted for creatinine of 1.3-1.6mg/dL. -appears over review that baseline creatinine is ~1.1-1.3mg/dL. He has never followed with nephrology in the past. Renal US showed right kidney 11x6x4.5cm no hydronephrosis, left kidney 10.7x6.5x5.1cm no hydronephrosis.. a 1.4cm cyst is noted. -UA showed cloudy appearance, 30mg protein, 6-10 hyaline casts. -echo showed EF 59%, aortic bioprosthesis appears well-seated not well visualized. -left atrial chamber mildly enlarged with a left atrium. History: Past Medical History: Diagnosis Date Arthritis Back pain CHF (congestive heart failure) (HCC) COPD (chronic obstructive pulmonary disease) (HCC) Coronary artery disease Diabetes mellitus (HCC) Diabetes mellitus, type 2 (HCC) Disease of thyroid gland GERD (gastroesophageal reflux disease) Hernia of abdominal wall Hyperlipidemia Hypertension Myocardial infarction (HCC) Sleep apnea, obstructive refuses to use c-pap Stroke (HCC) Past Surgical History: Procedure Laterality Date CABG AVR W/ MAZE Bilateral 08/12/2021 Procedure: CORONARY ARTERY BYPASS GRAFT TIMES THREE (krueger-lad, svg-d1, svg- drca)WITH ENDOVEIN HARVEST, Aortic valve replacement (27mm Paul Inspiris), full LA MAZE (Encompass RFA box, RFA HEATHER, cryoRA caval and RAA line), LEFT ATRIAL APPENDAGE LIGATION (40mm AtriCLIP), TRANSESOPHAGEAL ECHOCARDIOGRAM; Surgeon: Luis Beasley MD; Location: [facility]; Service: Cardiothoracic CARDIAC CATHETERIZATION CARDIAC CATHETERIZATION Bilateral 07/01/2021 No intervention, right radial CARDIAC CATHETERIZATION N/A 07/01/2021 Procedure: Coronary Angiogram; Surgeon: Shmuel Villalpando MD; Location: [facility]; Service: Cardiovascular CARDIAC CATHETERIZATION N/A 07/01/2021 Procedure: Right Heart Cath; Surgeon: Shmuel Villalpando MD; Location: [facility]; Service: Cardiovascular CARDIAC CATHETERIZATION N/A 07/01/2021 Procedure: Left Ventriculogram; Surgeon: Shmuel Villalpando MD; Location: [facility]; Service: Cardiovascular CARDIAC CATHETERIZATION N/A 07/01/2021 Procedure: Left Heart Cath; Surgeon: Shmuel Villalpando MD; Location: [facility]; Service: Cardiovascular cataracts removed Bilateral CORONARY STENT PLACEMENT EP - INTERVENTION N/A 08/24/2021 Procedure: Cardioversion/CTA; Surgeon: Abhishek Lauren MD; Location: [facility] EP LAB; Service: Cardiovascular HERNIA REPAIR W/HYDROCELE Right Family History: Family History Problem Relation Age of Onset Heart disease Father [] Unable to obtain due to ventilated and/or neurologic status Social History Socioeconomic History Marital status: Spouse name: Antonella Occupational History Employer: OTHER- Occupation: Retired from [employer] Tobacco Use Smoking status: Never Smokeless tobacco: Never Vaping Use Vaping Use: Never used Substance and Sexual Activity Alcohol use: Not Currently Comment: beer occasionally Drug use: Never Sexual activity: Not Currently Social Determinants of Health Transportation Needs: No Transportation Needs (01/16/2023) PRAPARE - Transportation Lack of Transportation (Medical): No Lack of Transportation (Non-Medical): No [] Unable to obtain due to ventilated and/or neurologic status Living Arrangements: Spouse/significant other Support Systems: Spouse/significant other, Children, Family members Home Medications: Outpatient Medications as of 01/20/2023 Medication Sig amLODIPine (NORVASC) 10 MG tablet Take 1 (one) tablet (10 mg total) by mouth daily . apixaban (ELIQUIS) 5 mg Tab Take 1 (one) tablet (5 mg total) by mouth 2 (two) times a day . furosemide (LASIX) 20 MG tablet Take 1 (one) tablet (20 mg total) by mouth daily . magnesium oxide (MAG-OX) 400 mg (241.3 mg magnesium) tablet Take 1 (one) tablet (400 mg total) by mouth daily Start: 01/09/23. potassium chloride SA (K-DUR,KLOR-CON) 20 MEQ tablet Take 1 (one) tablet (20 mEq total) by mouth daily . Current Hospital Medications: Scheduled Meds: amLODIPine 10 mg Oral Daily apixaban 5 mg Oral BID atorvastatin 40 mg Oral Nightly cyanocobalamin 1,000 mcg Oral Daily dofetilide 250 mcg Oral Q12H GENIE FLUoxetine 20 mg Oral Daily lispro insulin 0-15 Units Subcutaneous at bedtime insulin lispro 0-30 Units Subcutaneous TID AC levothyroxine 175 mcg Oral Daily lisinopriL 10 mg Oral Daily with lunch magnesium oxide 400 mg Oral Daily melatonin 5 mg Oral Nightly multivitamin 1 tablet Oral Daily nystatin 500,000 Units Oral 4x daily pantoprazole 40 mg Oral Daily polyethylene glycol 17 g Oral Daily senna-docusate 1 tablet Oral BID sodium chloride (PF) 5 mL Intravenous Q8H GENIE tamsulosin 0.4 mg Oral After evening meal Continuous Infusions: sodium chloride 0.9 % PRN Meds:.acetaminophen, albuterol, aluminum-magnesium hydroxide-simethicone, bisacodyL, hydrALAZINE, lidocaine HCL, ondansetron, polyethylene glycol, Saline lock IV AND sodium chloride (PF) AND sodium chloride (PF) AND sodium chloride 0.9 %, traZODone sodium chloride 0.9 % Allergies: I have reviewed the patient's allergies. Patient has no known allergies. Review of Systems: [x] CV, Resp, GI, Neuro, and all other systems reviewed and negative other than listed in HPI. [] Unable to obtain due to intubation and/or neurologic status. Objective Findings: Vitals:BP 137/69 Pulse 65 Temp 97.9 F (36.6 C) (Oral) Resp 16 Ht 6' Wt 107.4 kg (236 lb 12.4 oz) SpO2 95% BMI 32.11 kg/m Intake/Output last 3 shifts: Intake/Output Summary (Last 24 hours) at 01/20/2023 1113 Last data filed at 01/20/2023 0940 Gross per 24 hour Intake 840 ml Output 250 ml Net 590 ml I/O last 3 completed shifts: In: 720 [P.O.:720] Out: 253 [Urine:253] Physical Examination: General: Age appropriate, NAD. HEENT: Normocephalic, no scleral icterus. Neck: No JVD. Heart: Regular, no murmur, no rub/gallop. Lungs: Clear to ascultation, no rales/wheezing/rhonchi. Abdomen: Soft, nontender, no supra-public fullness or tenderness. Extremities: No clubbing/cyanosis, no edema. Skin: Warm, dry, normal turgor, no rash, no bruise, no petichiae. Neuro: No myoclonus or tremor. Psych: Normal affect. : [] Adame present [x] Adame not present Results/Medications Reviewed: 01/20/23 11:13 AM: Laboratory, Microbiology, Pathology, Radiology, Cardiology, Medications and Transcriptions Laboratory: Results from last 7 days Lab Units 01/18/23 0718 01/16/23 0921 WBC K/mcL 6.08 6.83 HGB g/dL 13.4* 13.1* HCT % 41.5 40.5* PLT K/mcL 172 184 Results from last 7 days Lab Units 01/20/23 0600 01/19/23 0703 01/18/23 0718 SODIUM mmol/L 137 136 136 POTASSIUM mmol/L 4.9 4.5 4.8 CHLORIDE mmol/L 106 104 105 BICARB mmol/L 27 26 27 BUN mg/dL 25 25 22 CREATININE mg/dL 1.55* 1.60* 1.45* EGFR mL/min/1.73 m2 45* 43* 48* GLUCOSE mg/dL 132* 158* 134* CALCIUM mg/dL 8.5 9.0 8.8 Urinalysis Results from last 7 days Lab Units 01/19/23 1154 COLOR, UR Yellow CLARITY, UR Cloudy* SPEC GRAV 1.027* PH, UR 5.0 GLUCOSE, UR mg/dL 50* KETONES, UR mg/dL Trace* BILIRUBIN, UR Negative UROBILINOGEN, UR mg/dL 2.0* BLOOD, UR Negative NITRITE, UR Negative LEUK RAFAELA, UR Negative MUCUS, UR /lpf Rare WBC, UR /hpf 12* BACTERIA, UR /hpf None Seen HYALINE CASTS /lpf 6-10* Comments: Thank you for allowing us to participate in the care of this patient. We will continue to follow. Please call if questions or concerns arise. * Tammy Cadena CNP - 01/16/2023 11:51 AM ESTAssociated Order(s): IP CONSULT TO [facility] [facility] [place] Patient Name: Kevin White : 1940 MR #: [id number] Admit Date: 01/15/2023 Physicians: Moi Gibson MD (Family); No ref. provider found (Referring) Kevin White is a 82 y.o. male patient of Moi Gibson MD with history of arthritis, back pain, CHF, COPD, coronary artery disease, diabetes, thyroid disease, GERD, anemia, hyperlipidemia, hypertension, myocardial infarction, sleep apnea, stroke. Patient initially presented with stroke likesymptoms 01/06/23, was transferred to [facility] found to have had an acute R MCACVA. Patient presented on 01/15/2023 to inpatient rehab with debility and decreased ability to complete ADLs following prolonged hospitalization. [facility] [place] Shahrzad Odom DO for medical management. Debility Decreased ability to complete ADLs Dysphagia PT/OT/ST eval and treat Management per primary team Care management consult for discharge planning Acute R MCA CVA s/p TPA Evaluated and treated at [facility], s/p TPA Neurology recommending BP goals less than 130/80, avoid hypotension, ASA 81 mg daily, Eliquis 5 mg BID, Lipitor 40 mg, follow up with Neurology 02/01/23 Hypertension CAD Atrial fibrillation Chronic HFpEF S/p Cardioversion 03/06/22 Continue Norvasc, Lasix, lisinopril, Tikosyn, Eliquis Will need order sent to pharmacy Wednesday to verify coverage of Eliquis Diabetes Hemoglobin A1c 6.6 on 01/06/2023 Continue Lantus Sliding scale insulin as needed Anemia Baseline hemoglobin normal Hemoglobin currently stable at 13.1 No need for transfusion at this time, transfuse if hemoglobin drops below 8 CKD Baseline creatinine around 1.4 Currently at baseline BPH Continue Flomax Quality Measures DVT Prophylaxis: eliquis Adame Catheter: absent Medication Reconciliation: Verified Chief Complaint debility and decreased ability to complete ADLs History of Present Illness Kevin White is a 82 y.o. male patient of Moi Gibson MD with history of arthritis, back pain, CHF, COPD, coronary artery disease, diabetes, thyroid disease, GERD, anemia, hyperlipidemia, hypertension, myocardial infarction, sleep apnea, stroke. Patient initially presented with stroke likesymptoms 01/06/23, was transferred to [facility] found to have had an acute R MCACVA. Patient presented on 01/15/2023 to inpatient rehab with debility and decreased ability to complete ADLs following prolonged hospitalization. [facility] [place] by hSahrzad Odom DO for medical management. Past Medical History Past Medical History: Diagnosis Date Arthritis Back pain CHF (congestive heart failure) (HCC) COPD (chronic obstructive pulmonary disease) (HCC) Coronary artery disease Diabetes mellitus (HCC) Diabetes mellitus, type 2 (HCC) Disease of thyroid gland GERD (gastroesophageal reflux disease) Hernia of abdominal wall Hyperlipidemia Hypertension Myocardial infarction (HCC) Sleep apnea, obstructive refuses to use c-pap Stroke (HCC) Past Surgical History Past Surgical History: Procedure Laterality Date CABG AVR W/ MAZE Bilateral 08/12/2021 Procedure: CORONARY ARTERY BYPASS GRAFT TIMES THREE (krueger-lad, svg-d1, svg- drca)WITH ENDOVEIN HARVEST, Aortic valve replacement (27mm Paul Inspiris), full LA MAZE ([employer]compass RFA box, RFA HEATHER, cryoRA caval and RAA line), LEFT ATRIAL APPENDAGE LIGATION (40mm AtriCLIP), TRANSESOPHAGEAL ECHOCARDIOGRAM; Surgeon: Luis Beasley MD; Location: [facility]; Service: Cardiothoracic CARDIAC CATHETERIZATION CARDIAC CATHETERIZATION Bilateral 07/01/2021 No intervention, right radial CARDIAC CATHETERIZATION N/A 07/01/2021 Procedure: Coronary Angiogram; Surgeon: Shmuel Villalpando MD; Location: [facility]; Service: Cardiovascular CARDIAC CATHETERIZATION N/A 07/01/2021 Procedure: Right Heart Cath; Surgeon: Shmuel Villalpando MD; Location: [facility]; Service: Cardiovascular CARDIAC CATHETERIZATION N/A 07/01/2021 Procedure: Left Ventriculogram; Surgeon: Shmuel Villalpando MD; Location: [facility]; Service: Cardiovascular CARDIAC CATHETERIZATION N/A 07/01/2021 Procedure: Left Heart Cath; Surgeon: Shmuel Villalpando MD; Location: [facility]; Service: Cardiovascular cataracts removed Bilateral CORONARY STENT PLACEMENT EP - INTERVENTION N/A 08/24/2021 Procedure: Cardioversion/CTA; Surgeon: Abhishek Lauren MD; Location: [facility] EP [facility]; Service: Cardiovascular HERNIA REPAIR W/HYDROCELE Right Family History Family History Problem Relation Age of Onset Heart disease Father Social History Social History Tobacco Use Smoking Status Never Smokeless Tobacco Never Social History Substance and Sexual Activity Alcohol Use Not Currently Comment: beer occasionally Social History Substance and Sexual Activity Drug Use Never Allergy Information I have reviewed the patient's allergies. Patient has no known allergies. Home Medications Home medications were reviewed. Review Of Systems All relevant systems have been reviewed and are negative except as noted in HPI or below Physical Examination BP (!) 152/94 Pulse 77 Temp 97.5 F (36.4 C) (Oral) Resp 16 Ht 6' Wt 84.6 kg (186 lb 8.2 oz) SpO2 95% BMI 25.30 kg/m Physical Examination General Appearance: alert; chronically ill appearing; in no acute distress HEENT: Head- normocephalic; Eyes- EOMI, sclera anicteric; Throat- mucous membranes moist Cardiovascular: regular rate and rhythm; normal S1, S2; no murmurs, rubs, clicks or gallops; peripheral edema present Respiratory: lungs clear to auscultation; without wheezes, rales or rhonchi; on room air Abdomen: soft, non-tender, non-distended Neurological: oriented x 3; normal speech; no focal findings or movement disorder noted Musculoskeletal: no significant deformity or tenderness to palpation Skin: normal coloration Psych: normal mood and affect Associated attestation - Taco Raymond MD - 01/16/2023 1:34 PM EST Patient seen, evaluated and managed by [facility] [employer] independently. I was not involved in the care of this patient, but was readily available for consultation if needed by [facility] [employer]. * Christin Mendez, PT - 01/16/2023 9:33 AM EST PHYSICAL THERAPY EVALUATION NOTE PT Time Calculation: Start time: 9:33 am Stop time: 11:00am Time calculation: 87 PT Individual Minutes: 87 min Dx: 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 CT of head01/07 with evolution of R MCA CVA with petechial hemorrhage Hx: left atrial appendage occlusion, recurrent cardioembolic event Pt denies having hearing aids. Unsure of delay in responses due in some part to both [id number] and cognitive processing delays. Pt with left facial droop and drooling out of left side of mouth noted to increase as pt fatigued. Pt with left neglect as he often requires cues for utilizing left ue for transfer safety and wc propulsion. Pt with much right left confusion and questions is that right? When asked to utilizes specific leg for task performance or for directional changes. Pt incorrect with left/right choice 75% of trials this date. Pt very motivated and cooperative in participation of therapy interventions and assessment. Problem List / Diagnosis Patient Active Problem List Diagnosis Hypertension Hyperlipidemia CAD (coronary artery disease) Type 2 diabetes mellitus without complication, without long-term current use of insulin (HCC) Atrial fibrillation (HCC) NAJMA (obstructive sleep apnea) COVID-19 Nonrheumatic aortic valve stenosis Aortic stenosis, severe A-fib (HCC) Ischemic stroke (HCC) Acute cerebrovascular accident (CVA) ([facility]) Marshall Balance Index Sit to Stand: Able to stand using hands after several tries Standing Unsupported: Able to stand 2 minutes with supervision Sitting Unsupported But Feet Supported on Floor or Stool: Able to sit safely and securely for 2 minutes Standing to Sitting: Controls descent by using hands Transfers: Able to transfer safely definite need of hands Standing Unsupported With Eyes Closed: Able to stand 10 seconds with supervision Standing Unsupported With Feet Together: Needs help to attain position but able to stand 15 secondsfeet together Reaching Forward with Outstretched Arms while Standing: Can reach forward 5 inches Forensic Nurse Object From The Floor From a Standing Position: Able to mushroom picker object but needs supervision Turning to Look Behind Over Left and Right Shoulders While Standing: Looks behind from both sides and weight shifts well Turn 360 Degrees: Needs close supervision or verbal cuing Place Alternate Foot on Step or Stool While Standing Unsupported: Able to complete greater than 2 steps needs minimal assist Standing Unsupported One Foot Infront: Loses balance while stepping or standing Standing on One Leg: Unable to try or needs assist to prevent fall Marshall Balance Scale Score: 31 Out of a Possible 56 TU.8sec; cga no device, gait belt Physical Therapy Assessment History: The following factors influence the patient's participation in the PT plan of care: Personal factors: decreased insight and impulsive behavior Environmental factors: steps to enter home and likes to work in basement building models - 7 steps with miryam rail The following co-morbidities (from this admission or prior) influence the patient's participation in this plan of care: See H & P Number of History elements affecting this patient's PT plan of care: 3 or more Examination of Body Systems: The patient presents with impairments of strength, functional endurance, coordination, balance, sensation, perception/neglect, cognition, activity tolerance. These impairments result in limitations of gait, functional transfers, stair- climbing, safety, safety awareness, activity tolerance, and insight. These impairments result in restrictions of household mobility, community mobility, and leisure activities. Number of Body Systems elements affecting this patient's PT plan of care: 3 or more Clinical Presentation: The patient's clinical presentation for this PT evaluation is evolving as evidenced by current PT documentation. Therapy Precautions Orthotic Devices: No Weight Bearing Status: WFL General Rehab Precautions: Fall risk (aspiration) Strength Assessment Strength RLE R Hip Flexion: 4+/5 R Knee Flexion: 4+/5 R Knee Extension: 4+/5 R Ankle Dorsiflexion: 4+/5 R Ankle Plantar Flexion: 4+/5 Strength LLE L Hip Flexion: 4/5 L Knee Flexion: 4/5 L Knee Extension: 4+/5 L Ankle Dorsiflexion: 4/5 L Ankle Plantar Flexion: 4/5 Vision Vision-Basic Assessment Current Vision: (pt reports that he has not noticed any visual changes since stroke.) Coordination Coordination RLE Assessment: X supine heel on jaquez: normal performance DADA (Rapid Alternating Movement)-reciprocal toe tapping on floor: normal performance LLE Assessment: X supine heel on jaquez: slight difficulty with movement accomplished DADA (Rapid Alternating Movement)-reciprocal toe tapping on floor: slight difficulty with movement accomplished Balance Balance Assessment Sitting Balance - Static: Supervision Sitting Balance - Dynamic: Stand by assist (due to impaired safety awareness) Standing Balance - Static: Stand by assist, without UE support Documentation Nurse - Standing Static: (gait belt) Loss of Balance- Standing Static: (mild postural sway with prolonged standing) Standing Balance - Dynamic: Contact guard assist, without UE support Documentation Nurse - Standing Dynamic: (gait belt) Loss of Balance- Standing Dynamic: intermittent Skilled Intervention: SHIRT CREASER BLOCK: cga for safety when picking up item at ground level from standing position, x4 trials due to impulsivity, and impaired safety awareness. Mild unsteadiness noted with grasping item from floor with left hand with item positioned on left side requiring more left weight shifting. cga for balance recovery. MARSHALL/56 indicating increased risk for fall without use of assistive device for functional mobility. TUG : 15.8, cga without device with mild impulsivity with directional change and mild unsteadiness; indicates increase fall risk Bed Mobility Bed Mobility Rolling: Supervision, Head of bed flat Supine to Sit: Supervision, Head of bed flat Sit to Supine: Supervision, Head of bed flat Documentation Nurse: (no rails) Skilled Intervention: Pt denies dizziness with positional changes. Pt does report mild SOB with bedmobility - SpO2 93% on RA. Transfers Transfers Sit to Stand: Contact guard assist Bed to Chair: Contact guard assist Stand Pivot Transfers: Contact guard assist Documentation Nurse: (gait belt) Skilled Intervention: X5 STS from EOB without ue support performed in 26.59 seconds with cga for safety as pt mildly impulsive with movements. X3 LOB posterior with initial stand from sit , improved with cues for pt to slow transitional movements. Pt does utilizes posterior aspect of miryam le's for vital pport on bed for balance. Pt able to complete consecutive 11 reps STS without ue support from EOB before requesting seated rest due to fatigue. Pt reports modified JAQUI of 5/10. Pt often requires cues for improving awereness to utilize left ue for support during transfers and to reach back prior tositting to better control stand to sit transfer, for safety. Functional Transfers Car Transfers: Contact guard assist, Supervision (CGA for STS; sba for mobilizing miryam le's in/out of car. on 2nd trial, pt does require x2 attempts to get left le into car) Documentation Nurse: BUE Skilled Intervention: Pt impulsive with movement, attempting to enter car before properly positioned at car seat for safety. Requires cues for proper hand placement for controlled transfer. Gait/Locomotion Gait / Locomotion Gait Assistance: Contact guard assist Assistive Device: (gait belt) Distance: 270 Feet (; 150 with mulitple turns; 12 ft on carpet with x1 turn) Rest Breaks: Yes Rest Break Position: seated Rest Break Duration: 1-2 min (between distance trials) Pattern: R decreased step length, L decreased step length, L impaired heel strike, decreased arm swing, trendelenburg (intermittant shuffling to left le) Weight Bearing Status: able to maintain Gait Loss(es) of Balance: intermittent (unsteadiness with directional changes and head movements during ambulation) Environment/Terrain: open/community environment, multiple distractions Stair Management Technique: two rails, step-to pattern, alternating pattern, forwards Stair Management Assistance: Contact guard assist Number of Stairs: 12 (6 inch steps) Wheelchair Mobility: Supervision Wheelchair distance: 252 Feet Wheelchair Environment/Terrain: open/community environment, multiple distractions Skilled Intervention: Pt demonstrates much left/ right confusion with cues provided for ascending steps with right le and descend leading with left le, as well as difficulting dicerning right and left during directional changes, requiring multiple cues for correct determination. Assistive device most likely to improve safety and stability of functional mobility. Home Living Obtained Home Living and PLOF info from: Patient, Review of patient s medical record Unable to obtain Home Living and PLOF info on initial eval: Patient is a questionable historian Lives With: Spouse, Son (son works 5 days a week and is unable to assist pt when working. pt reports in good health and can assist pt with needs after discharge.) Type of Home: House Home Layout: One level, Full bath on main level, Bed on main level, Stairs between floors, Work area in basement (laundry on main. house has basement and 1st floor. 1/2 bath in basement) Rails on inside stairs: 1 rail Number of stairs inside home: 7 Steps to enter home: Yes Rails to enter home: 2 rails Number of stairs to enter home: 5 Bathroom Shower/Tub: Walk-in shower, Main level Bathroom Toilet: Standard Bathroom Equipment: Grab bars in shower, Shower chair, Hand-held showerhead, Grab bars around toilet Bathroom Accessibility: Accessible via walker Mobility Equipment: Wheeled walker Additional Objective Details - Home Living: Pt reports that he likes to make lots of things in the basement ( model cars/trucks/semi's). Pt with expressive aphasia. Pt inconsistant with responses provided during PT evaluation versus previous consult. Pt is questionable historian. Prior Level of Function Receives Help From: Family ( and son ( son assists when not at work, as needed).) Level of Bishop - Transfers/Ambulation/Mobility: Independent with functional transfers, Independent with household ambulation, Independent with community ambulation (no device utilized) Level of Bishop - ADLs: Independent Level of Bishop - Homemaking: Independent Driving: Patient drives Vocational: Retired Leisure: Patient enjoys word searches, crossword's, and is a consistent churchgoer. Physical Therapy Goals Problem: Mobility - Impaired Goal: PT- LTG bed mobility Description: PT - Patient will perform bed mobility with modified independence to improve functional mobility and safety. Outcome: Not Addressed Goal: PT- LTG sit to stand transfer Description: PT - Patient will perform sit to/from stand transfer with modified independence to improve functional mobility and safety. Outcome: Not Addressed Goal: PT- LTG stand-pivot transfer Description: PT - Patient will perform stand-pivot transfer with modified independence , supervision with or without appropriate device to improve functional mobility and safety. Outcome: Not Addressed Goal: PT- LTG car transfer Description: PT - Patient will perform car transfer with modified independence , supervision to improve functional mobility and safety. Outcome: Not Addressed Goal: PT- LTG dynamic balance Description: PT - Patient will improve MARSHALL score from 31/56 to >45/56 to improve functional mobility and safety and decrease fall risk. Outcome: Not Addressed Goal: PT- LTG ambulation Description: PT - Patient will ambulate 300 feet with or without appropriate device with modified independence , supervision to improve functional mobility and safety. Outcome: Not Addressed Goal: PT- LTG stair climbing Description: PT - Patient will ascend and descend 7 stairs with reciprocal technique with 2 rails with supervision to improve functional mobility and safety. Outcome: Not Addressed Goal: PT- LTG mobility other Description: PT- Patient will be able to complete TUG in < 12 seconds with supervision/ modifiedindependence with or without appropriate device to decrease fall risk with functional mobility. Outcome: Not Addressed Problem: Impaired Strength Goal: PT- STG strengthening Description: PT - Patient will complete left hip knee ankle home strengthening exercise program independently in preparation for function. Outcome: Not Addressed Problem: Mobility - Impaired Goal: PT- LTG wheelchair management Description: PT - Patient will propel and manage wheelchair 150 feet on even and uneven surfaces with independence to improve functional mobility and safety. Outcome: Not Addressed Signs and symptoms of abuse / neglect: No Describe: Justification of medical necessity and intensity of service: Pt will need PT to increase strength and endurance to safely complete transfers and ambulate longerdistances. Pt also lacks sufficient balance to carry out ADLs and mobility and to be safe with ambulation and transfers to be able to return to their PLOF. Pt has decreased sitting and standing balance which puts pt at high fall risk. Pt is somewhat impulsive at times putting pt at higher fall risk and needs cues for safety. PT will also work on core strengthening to assist with trunk support andoverall activity tolerance. Pt is limited by weakness of bilateral UE and LE that interferes with independence with bed mobility, transfers, gait, and overall daily tasks due to CVA. Staff will also be monitoring vitals and skin integrity risks due to decreased mobility. Pt will need to be able to increase their activity tolerance and mobility to return to PLOF. Pt is expected to need at least three hours per day, at least five days a week of physical and occupational therapy and will be seen, by social service for discharge planning and coordination of family meetings and by recreational therapy for leisure needs and to increase endurance. Pt has decreased strength, balance, decreased transfers, and decreased gait abilities. They lack safety awareness into their deficits. Status is evolving requiring a moderate complexity PT eval. Handoff given to primary RN. Exit Protocol Followed: Yes Past Medical History: Diagnosis Date Arthritis Back pain CHF (congestive heart failure) (HCC) COPD (chronic obstructive pulmonary disease) (HCC) Coronary artery disease Diabetes mellitus (HCC) Diabetes mellitus, type 2 (HCC) Disease of thyroid gland GERD (gastroesophageal reflux disease) Hernia of abdominal wall Hyperlipidemia Hypertension Myocardial infarction (HCC) Sleep apnea, obstructive refuses to use c-pap Stroke (HCC) Past Surgical History: Procedure Laterality Date CABG AVR W/ MAZE Bilateral 08/12/2021 Procedure: CORONARY ARTERY BYPASS GRAFT TIMES THREE (krueger-lad, svg-d1, svg- drca)WITH ENDOVEIN HARVEST, Aortic valve replacement (27mm Paul Inspiris), full LA MAZE (Encompass RFA box, RFA HEATHER, cryoRA caval and RAA line), LEFT ATRIAL APPENDAGE LIGATION (40mm AtriCLIP), TRANSESOPHAGEAL ECHOCARDIOGRAM; Surgeon: Luis Beasley MD; Location: [facility]; Service: Cardiothoracic CARDIAC CATHETERIZATION CARDIAC CATHETERIZATION Bilateral 07/01/2021 No intervention, right radial CARDIAC CATHETERIZATION N/A 07/01/2021 Procedure: Coronary Angiogram; Surgeon: Shmuel Villalpando MD; [facility]; Service: Cardiovascular CARDIAC CATHETERIZATION N/A 07/01/2021 Procedure: Right Heart Cath; Surgeon: Shmuel Villalpando MD; [facility]; Service: Cardiovascular CARDIAC CATHETERIZATION N/A 07/01/2021 Procedure: Left Ventriculogram; Surgeon: Shmuel Villalpando MD; [facility]: [facility]; Service: Cardiovascular CARDIAC CATHETERIZATION N/A 07/01/2021 Procedure: Left Heart Cath; Surgeon: Shmuel Villalpando MD; Location: [facility]; Service: Cardiovascular cataracts removed Bilateral CORONARY STENT PLACEMENT EP - INTERVENTION N/A 08/24/2021 Procedure: Cardioversion/CTA; Surgeon: Abhishek Lauren MD; Location: [facility]; Service: Cardiovascular HERNIA REPAIR W/HYDROCELE Right For complete objective data, detailed plan of care and patient education refer to: PT EVALUATION flow sheet, PT TREATMENT flow sheet, patient Plan of Care, Plan of Care progress note, and Patient Education. * Anisa Luther ACADEMIC SERVICES PROFESSIONAL - 01/16/2023 8:57 AM EST Speech Pathology Communication / Cognition Eval Note ACADEMIC SERVICES PROFESSIONAL Time Calculation: Start time: 856 Stop time: 931 Time calculation: 35 ACADEMIC SERVICES PROFESSIONAL Individual Minutes: 35 Discharge Recommendations: Factors for Returning to Prior Level of Function Body Structure and Function: Neurologic impairment Explain Impairments: R MCA CVA Activities and Participation: Communication limitation, Swallowing limitation, Executive function limitation Explain Limitations: dysarthria, dysphagia, cognitive deficits Environmental Factors: Home situation, Family/caregiver support Explain Environmental Factors: lives at home with spouse Skilled Therapy Needs: Are Skilled Therapy Services Needed After Discharge: Yes Functional Limitations: dysphagia, communication deficits, decreased environmental safety awareness, impaired insight Intensity of Skilled Therapy: 2-3 days per week Anticipated Duration of Skilled Therapy: Duration 10 - 30 days Impressions: Kevinviv White was admitted to [facility] s/p R MCA CVA. Per H&P: Kevin White is a 82 y.o. male witha history of CAD, AFIB s/p cardioversion/MAZE/LA clipping, CHF, IDDM type 2, who presented to [facility] 01/06/2023 from [facility] with left sided weakness and garbled speech, s/p [facility] tPA. Admitted to [facility] & found to have acuteR MCA CVA. . Pt's chief complaints include: decreased strength and slurred speech. an informal speech language cognitive evaluation was completed this date to determine need for skilled speech services while in [facility]. Pt completed O-Log and CLQT+, results are as follows: The Orientation Log (O-Log) is designed to be a quick quantitative measure of orientational status for use at bedside with rehabilitation inpatients. Place, time, and situational (Etiology/Event + Pathology/Deficits) domains are assessed. Patient responses are scored according to the following criteria: 3 = correct spontaneously or upon first free recall attempt; 2 = correct upon logical cueing (e.g., That was yesterday, so today must be ); 1 = correct upon multiple choice or phonemic cuing; and 0 = incorrect despite cueing, inappropriate response, or unable to respond. Patient scored this date with deficits in the areas of city, type of place, month, date, day of the week, and etiologies and was noted to benefit from logical and semantic cues. The Cognitive Linguistic Quick Test (CLQT) was developed for the use with [place] Islander or Luxembourgish speaking adults with aquired neurological dysfunction, ages 18-89. The test is criterion- referenced and yields severity ratings for five cognitive domains, A Total Composite Severity Rating, and a Clock Drawing Severity Rating. All ratings are provided for two age categories: ages 18-69 and 70-89 years. The CLQT quickly assesses the relative status of five cognitive domains. Task Patient's scores Criterion Cut- off scores 70-89 Personal Facts 8 8 Symbol Cancellation 3 10 Confrontation Naming 10 10 Clock Drawing 11 11 Story Retelling 5 Symbol Trails 6 Generative Naming 4 Design Memory 4 Mazes 4 Design Generation 5 Cognitive Domain Ages 70-89 scores: Attention: (Normal range 215-160) Memory: (Normal range 185-141) Executive Function: ( Normal range 40-19) Language: (Normal 37-28) Visuospatial: (Normal 105-62) Clock Drawing: (Normal 13-11) Composite Severity Rating: Composite Severity Rating Range: Unable to complete CLQT+ due to time restraints. Will plan to complete during next treatment session with additional goals added as clinically indicated. Pt presents w/mild-moderate expressive language deficits characterized by dysarthria with imprecisearticulation, low intensity of speech, poor breath support, impairments in sentence completion, andword finding in conversation. Pt presents w/supervision receptive language deficits characterized by impairments with multi step commands, complex yes/no questions, and conversation, however suspect related to conversation vs true receptive aphasia. Pt presents w/moderate cognitive linguistic deficits characterized by impairments in orientation, attention, insight to deficits, memory, sequencing, and organization. Full cognitive evaluation not completed due to time restraints. The documented impairments result in the following functional limitations: ADLS/IADLS, performance while driving, return to driving, communication skills, safety awareness, quality of life, householdchores, increase caregiver support, reduced intelligibility, increase risk of aspiration, and reduced independence. Potential barriers to rehab include: cognitive endurance, cognitive limitations, and reduced insight. The patient would benefit from skilled ST services focused on the above listed impairments and limitations in order to safely progress patient to desired level of function., safely progress patientto desired level of function, to safely eat least restrictive diet without s/s of aspiration or pulmonary compromise and while maintaining adequate nutrition/hydration., improve receptive/expressive language skills for ability to communicate basic needs, wants, and ideas for increased safety, independence, and enjoyment of activities of daily living., and improve speech precision, respiratory support and vocal loudness for improved speech communication skills, and fluency enhancement for improved speech performance for social interaction needs. Oral/Motor: Oral Motor Impression-Severity Scale: Moderate Labial ROM: Reduced left Labial Symmetry at Rest: Abnormal symmetry left Labial Strength: Reduced Lingual ROM: Reduced coordination Lingual Symmetry: Deviates to Right Lingual Strength: Reduced Velum: Within Functional Limits Mandible: Reduced Strength Facial ROM: Reduced left Facial Symmetry at Rest: Left lower paresis, Left upper paresis Facial Sensation: Reduced Left Apraxia: None present Auditory Comprehension: Auditory Comp Impression-Severity Scale: 90-100% (Supervision, Occasional Cues) Commands: Exceptions to WFL One Step Basic Commands: No Impairment Two Step Basic Commands: 90-100% (Supervision, Occasional Assist) Identification Tasks: Within Functional Limits Yes/No Questions: Within Functional Limits Conversational Speech: Exceptions to WFL Simple Conversation: 75-90% (Mild) Hearing: Hard of hearing/hearing concerns Interfering Components: Hearing, Auditory Processing Difficulty Recommended Auditory Comprehension Strategies: Increase your volume, Rephrase, Repeat questions/requests, Allow for increased response time Visual Recognition: Visual Perception: No acute visual changes Reading Comprehension: Reading Comp Impression-Severity: Requires further assessment Expressive Language: Expressive Language Impression-Severity: 90-100% (Supervision, Occasional Cues) Primary Mode of Expression: Verbal Repetition: WFL Automatic Speech: Exceptions to WFL Counting: No Impairment Days of the week: No Impairment Months of the year: 75-90% (Mild) Sentence Completion: Exceptions to WFL Simple sentence completion: 75-90% (Mild) Naming: Exceptions to WFL Confrontational: 90-100% (Supervision, Occasional Assist) Narrative: Exceptions to WFL Conversation: 75-90% (Mild) Written Expression: Written Expression Impression-Severity: Requires further assessment Dominant Hand: Left Interfering Components: Upper extremity mobility limitations Speech Cognition: Speech Cognition Impression-Severity: 50-75% (Moderate) Orientation Level: Oriented to time, Oriented to person Attention: Exceptions to WFL Sustained Attention: 75-90% (Mild) Selective Attention: 75-90% (Mild) Memory: Unable to assess Verbal Problem Solving: Exceptions to WFL Simple Functional Tasks: 50-75% (Moderate) Verbal Reasoning Skills: 50-75% (Moderate) Safety/Judgement: Exceptions to WFL Behavioral Observations: fall risk Insight: Decreased awareness of impairment, Decreased insight into impact of injury/deficits Task Initiation: Delayed initiation Flexibility of Thought: Reduced flexibility Auditory Processing Difficulty: Min delay, Mod delay Pragmatics: No overt deficits Recommended general cognitive strategies: Limit background environmental noise, Gain and re-gain attention, Allow for increased response time, Repeat questions/requests, Clear/concise statements Prior Level of Function: Prior Function Reason for Referral: Stroke / neuro Primary Language: [place] Islander Employment Status: Retired Education Level: High school grad or equivalent Living Situation: With others Prior Speech Deficit: Dysarthria, Prior Speech Therapy services (from acute care) Prior Language Deficit: Word-finding, Per patient report, Prior Speech Therapy services (from acute) Prior Cognitive Deficit: Suspected cognitive deficits, Prior Speech Therapy services (from acute) Other pertinent diagnoses affecting cog/comm/voice: CVA QI CARE Score - Eatin CARE Score - Oral Hygiene: 4 Past Medical History: Diagnosis Date Arthritis Back pain CHF (congestive heart failure) (HCC) COPD (chronic obstructive pulmonary disease) (HCC) Coronary artery disease Diabetes mellitus (HCC) Diabetes mellitus, type 2 (HCC) Disease of thyroid gland GERD (gastroesophageal reflux disease) Hernia of abdominal wall Hyperlipidemia Hypertension Myocardial infarction (HCC) Sleep apnea, obstructive refuses to use c-pap Stroke (HCC) Past Surgical History: Procedure Laterality Date CABG AVR W/ MAZE Bilateral 08/12/2021 Procedure: CORONARY ARTERY BYPASS GRAFT TIMES THREE (krueger-lad, svg-d1, svg- drca)WITH ENDOVEIN HARVEST, Aortic valve replacement (27mm Paul Inspiris), full LA MAZE (Encompass RFA box, RFA HEATHER, cryoRA caval and RAA line), LEFT ATRIAL APPENDAGE LIGATION (40mm AtriCLIP), TRANSESOPHAGEAL ECHOCARDIOGRAM; Surgeon: Luis Beasley MD; Location: [facility]; Service: Cardiothoracic CARDIAC CATHETERIZATION CARDIAC CATHETERIZATION Bilateral 07/01/2021 No intervention, right radial CARDIAC CATHETERIZATION N/A 07/01/2021 Procedure: Coronary Angiogram; Surgeon: Shmuel Villalpando MD; Location: [facility]; Service: Cardiovascular CARDIAC CATHETERIZATION N/A 07/01/2021 Procedure: Right Heart Cath; Surgeon: Shmuel Villalpando MD; Location: [facility]; Service: Cardiovascular CARDIAC CATHETERIZATION N/A 07/01/2021 Procedure: Left Ventriculogram; Surgeon: Shmuel Villalpando MD; Location: [facility]; Service: Cardiovascular CARDIAC CATHETERIZATION N/A 07/01/2021 Procedure: Left Heart Cath; Surgeon: Shmuel Villalpando MD; Location: [facility]; Service: Cardiovascular cataracts removed Bilateral CORONARY STENT PLACEMENT EP - INTERVENTION N/A 08/24/2021 Procedure: Cardioversion/CTA; Surgeon: Abhishek Lauren MD; Location: [facility]; Service: Cardiovascular HERNIA REPAIR W/HYDROCELE Right For complete objective data, detailed plan of care, and education refer to: Speech Comm/Cog Eval flow sheet, as well as patient Plan of Care and Education documentation. This note stands as the current Discharge Summary upon patient discharge from the hospital or completion of Speech Pathology Plan of Care * Anisa Luther SLP - 01/16/2023 8:32 AM EST Speech Pathology Bedside Swallow Evaluation ACADEMIC SERVICES PROFESSIONAL Time Calculation: Start time: 831 Stop time: 856 Time calculation: 25 ACADEMIC SERVICES PROFESSIONAL Individual Minutes: 25 min Recommendations: PO Recommendations: NDD diet NDD diet recommendation: Chopped/ NDD3, chopped meats, Thin liquids Compensatory Strategies: Eat/feed slowly, Alternate solids and liquids, Check for pocketing of foodon the left, Lingual sweep Postures: Sit as upright as possible for all oral intake Food Presentation: Small bites Liquid Presentation: Average sips Medication Presentation: Whole with thins, Whole in puree, Per Patient Preference Amount of Supervision: Nursing staff supervision, Set up assistance with tray Treatment Techniques: Train swallowing strategies Further Recommendations: Oral care TID, Assess for diet tolerance, Assess for diet upgrade Discharge Recommendations: Skilled Therapy Needs: Are Skilled Therapy Services Needed After Discharge: Yes Functional Limitations: dysphagia, communication deficits, decreased environmental safety awareness, impaired insight Intensity of Skilled Therapy: 2-3 days per week Anticipated Duration of Skilled Therapy: Duration 10 - 30 days Prior Function: Reason for Referral: Stroke / neuro Prior Swallow Deficit: Per chart review (pt seen on acute) Swallow Complaint: Pocketing food (pt endorses continued L sided weakness) Previous instrumental date: 01/06/23 Previous BSE date : 01/06/23 Other Pertinent Diagnoses Affecting Swallow: CVA Diet Prior to BSE: Chopped/mechanical, Thin liquid Primary Language: Solomon Islander Baseline Assessment: Subjective Impression: Alert, Cooperative, Pleasant Mood Respiratory Status: Room air Dentition: Permanent, Some missing teeth Self-Feeding Barriers: Functional for self-feeding Patient Positioning: Upright in chair Volitional Cough: Strong Baseline Cough: Dry Secretion Management: Adequate Volitional Swallow: Present Oral Motor: Oral Motor Impression-Severity Scale: Moderate Labial ROM: Reduced left Labial Symmetry at Rest: Abnormal symmetry left Labial Strength: Reduced Lingual ROM: Reduced coordination Lingual Symmetry: Deviates to Right Lingual Strength: Reduced Velum: Within Functional Limits Mandible: Reduced Strength Facial ROM: Reduced left Facial Symmetry at Rest: Left lower paresis, Left upper paresis Facial Sensation: Reduced Left Apraxia: None present Voice: Breath Support: WFL Vocal Quality: Weak Vocal Intensity: Mildly decreased, Moderately decreased Consistencies Assessed: CONSISTENCY PRESENTATION ORAL (SIGNS / SYMPTOMS) PHARYNGEAL (SIGNS / SYMPTOMS) ICE THIN Cup, Self Fed, Continuous drinks Spillage Left (no overt signs/symptoms concerning for laryngeal penetration/aspiration) NECTAR HONEY PUREE Self fed, Spoon Spillage Left (no overt signs/symptoms concerning for laryngeal penetration/aspiration) SOFT Self Fed Pocketing Left, Increased Anterior to Posterior Transit, Poor bolus formation (no overt signs/symptoms concerning for laryngeal penetration/aspiration) SOLID Per chart review, Kevin White is a 82 y.o. male with a history of CAD, AFIB s/p cardioversion/MAZE/LA clipping, CHF, IDDM type 2, who presented to [facility] 01/06/2023 from [facility] with left sided weakness and garbled speech, s/p OL tPA. Admitted to [facility] & found to have acute R MCA CVA. Kevin White presents with known oropharyngeal dysphagia per [facility] completed 01/06/23 which revealedsilent aspiration of thin liquids with continuous cup sip. Pt continues to endorse difficulty with mastication and pocketing on left. He does recall lingual sweep to ensure complete clearance. Pt additionally endorsing anterior loss of bolus on L. [facility] Pt seen with breakfast tray this date. He accepted po trials of thin liquids via single and consecutive cup sip with no overt signs/symptoms concerning for laryngeal penetration or aspiration, however unable to rule out silent aspiration seen on imaging. Pt accepted po trials of puree with adequate oral transit and clearance. Pt noted with L pocketing with trials of soft solids, however independently utilized lingual sweep and liquid wash to clear. Pt with anterior loss of bolus on L with all trials. Given above, recommend continuing with chopped solids, thin liquids, and medications perpt preference (preferred with applesauce on date of evaluation). Pt does benefit from cues to slow down and single sips. Impressions-Severity Level: Oral Severity Scale: Mild, Moderate Pharyngeal Severity Scale: (known impairments from [facility] completed 01/06) Factors for Returning to PLOF: Body Structure and Function: Neurologic impairment Explain Impairments: R MCA CVA Activities and Participation: Communication limitation, Swallowing limitation, Executive function limitation Explain Limitations: dysarthria, dysphagia, cognitive deficits Environmental Factors: Home situation, Family/caregiver support Explain Environmental Factors: lives at home with spouse Speech Plan: Role of ST Discussed: With patient Risk/Benefits of ST Discussed: With patient Patient Goal for Treatment: To go home Rehab Potential: Good For complete objective data, detailed plan of care, and education refer to: Speech Bedside Swallow Evaluation flow sheet, as well as patient Plan of Care and Education documentation. This note stands as the current Discharge Summary upon patient discharge from the hospital or completion of Speech Pathology Plan of Care. * Destin Christiansen OT - 01/16/2023 7:30 AM EST OCCUPATIONAL THERAPY EVALUATION NOTE OT Time Calculation: Start time: 07:30 Stop time: 08:30 Time calculation: 60 OT Individual Minutes: 60 min Problem List / Diagnosis Patient Active Problem List Diagnosis Hypertension Hyperlipidemia CAD (coronary artery disease) Type 2 diabetes mellitus without complication, without long-term current use of insulin (HCC) Atrial fibrillation (HCC) NAJMA (obstructive sleep apnea) COVID-19 Nonrheumatic aortic valve stenosis Aortic stenosis, severe A-fib (HCC) Ischemic stroke (HCC) Acute cerebrovascular accident (CVA) ([facility]) Occupational Therapy Assessment The patient presents with neurological impairment(s) in generalized debility left upper extremity which create performance deficits including strength, balance, dexterity, coordination, and activity tolerance, initiation, problem solving, sequencing, attention, insight, and safety, and knowledge deficit. These performance impairments limit participation in feeding, grooming, UE dressing, LE dressing, bathing, toileting, medication management, home management, and functional mobility in the chosen occupational roles of premorbid level individual, parent, and spouse. The patient's co morbidities do affect patient performance in the above activities and roles. 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 The patient's awareness of own capacity and performance is a barrier to return to prior level of function. During the assessment, minimal to moderate modification of task was required and several treatment options were identified in the plan of care. This consultation required extensive review of the medical and therapy history. Therapy Precautions Orthotic Devices: No Weight Bearing Status: WFL General Rehab Precautions: Fall risk (aspiration) UE Functioning RUE Assessment RUE Assessment: Exceptions to WFL RUE Strength RUE Overall Strength: 4+/5 LUE Assessment LUE Assessment: Exceptions to WFL LUE Strength LUE Overall Strength: 4/5 Vision Vision-Basic Assessment Current Vision: (Would benefit from further screening of functional vision due to observable behaviors suggestive of potential VFD.) Coordination Coordination RUE Assessment: (Benefiting from additional time for bimanual coordination task.) LUE Assessment: (Mild periods of decreased coordination on left side compared to right.) Box and Blocks Test: R: 50 completions (37% IMP), L: 39 completions (36% IMP); Nine Hole Peg Test: R: 33 seconds (28% IMP), L: 41 seconds (58% IMP.) Cognition Arousal/Alertness: Appropriate responses to stimuli Orientation Level: Oriented X4 Executive functioning: Insight, Sequencing, Planning / Organizing, Min impairment Safety Judgment: Decreased awareness of need for safety, Decreased awareness of need for assistance Problem Solving: Assistance required to identify errors made Attention: Attends to quiet environment Hearing Status: [facility] Social Interaction: Dysarthric, Flat affect, Cooperative Comments: Patient pleasant and controlled throughout the session. Acute care documentation from OT reported periods of tearfulness during treatment sessions, but patient did not display this behaviorduring this OT evaluation. Patient benefited from min verbal cues for problem solving and location of ADL items to complete showering and dressing as well as for initiation of task. ADL Feeding: Set-up Grooming: Set-up, Stand by assist (Benefiting from verbal cues to locate items.) Upper Body Bathing: Stand by assist Lower Body Bathing: Stand by assist (Patient incontinent of bowel during showering. Nursing informed.) Upper Body Dressing: Stand by assist (Increased difficulty with managing buttons. Moderate verbal cues for sequencing of task and initiation of task.) Lower Body Dressing: Stand by assist, Increased time to complete (SBA while standing to manage clothing.) Toileting: Stand by assist (Verbal cues for hygiene.) Functional Mobility: Contact guard assist IADL Bed Mobility Rolling: Modified independent Supine to Sit: Stand by assist, Head of bed flat Functional Transfers Sit to Stand: Contact guard assist Bed to Chair Transfers: Contact guard assist (Periods of instability with direction changes.) Toilet Transfers: Contact guard assist (Periods of instability with direction changes.) Shower Transfers: Contact guard assist Documentation Nurse: (Perform functional mobility without AD) Exercise Interventions Home Living Obtained Home Living and PLOF info from: Patient, Review of patient s medical record Unable to obtain Home Living and PLOF info on initial eval: Patient is a questionable historian Lives With: Spouse, Son (son works 5 days a week and is unable to assist pt when working. pt reports in good health and can assist pt with needs after discharge.) Type of Home: House Home Layout: One level, Full bath on main level, Bed on main level, Stairs between floors, Work area in basement (laundry on main. house has basement and 1st floor. 1/2 bath in basement) Rails on inside stairs: 1 rail Number of stairs inside home: 7 Steps to enter home: Yes Rails to enter home: 2 rails Number of stairs to enter home: 5 Bathroom Shower/Tub: Walk-in shower, Main level Bathroom Toilet: Standard Bathroom Equipment: Grab bars in shower, Shower chair, Hand-held showerhead, Grab bars around toilet Bathroom Accessibility: Accessible via walker Mobility Equipment: Wheeled walker Additional Objective Details - Home Living: Pt reports that he likes to make lots of things in the basement ( model cars/trucks/semi's). Pt with expressive aphasia. Pt inconsistant with responses provided during PT evaluation versus previous consult. Pt is questionable historian. Prior Level of Function Receives Help From: Spouse, Family Level of Bishop - Transfers/Ambulation/Mobility: Independent with community ambulation Level of Bishop - ADLs: Independent Level of Bishop - Homemaking: Independent Driving: Patient drives Vocational: Retired Leisure: Patient enjoys word searches, [employer], and is a consistent churchgoer. Subjective Impression - Prior Function: Prior to this incident, patient was independent with all BADLs/IADLs. The patient stated that his son works from home and would be available to help during theday if needed. Patient had a significant cardiac event in February of this year, but comments that he was able to recover to independent ADL status. Occupational Therapy Goals Problem: Self-care Deficit Goal: OT- LTG feeding Description: OT - Patient will complete self-feeding with modified independence to improve self care function. Outcome: Not Met Goal: OT- LTG grooming Description: OT - Patient will complete grooming standing at the sink with modified independence toimprove self care function. Outcome: Not Met Goal: OT- LTG UB dressing Description: OT - Patient will complete UB/LB dressing, which would include gathering clothing fromcloset, with modified independence to improve self care function. Outcome: Not Met Goal: OT- LTG UB bathing Description: OT - Patient will complete UB/LB showering with modified independence to improve self care function. Outcome: Not Met Goal: OT- LTG home management Description: OT - Patient will tolerate at least 8-10 minutes of static standing to complete home management with modified independence to improve self care function. Outcome: Not Met Problem: Mobility - Impaired Goal: OT- LTG toilet transfer Description: OT - Patient will complete toileting and toilet transfer with modified independence inpreparation for ADL's. Outcome: Not Met Goal: OT- LTG tub transfer Description: OT - Patient will complete shower transfer with modified independence in preparation for ADL's. Outcome: Not Met Problem: Impaired Strength Goal: OT- LTG Strength Other Description: OT- Patient will tolerate at least 5-8 minutes of sustained UB AROM/ strengthening therapeutic exercises seated/standing to improve functional strength for safe DME management and ADL performance. Outcome: Not Met Problem: Cognition - Impaired Goal: OT- LTG sequencing Description: OT - Patient will sequence 3 or more step task with modified independence in preparation for ADL's. Outcome: Not Met Problem: Impaired Neurologic Function Goal: OT- LTG dynamic sitting balance Description: OT - Patient will complete sustained dynamic sitting balance activity for at least 15 minutes with modified independence in preparation for ADL's. Outcome: Not Met Goal: OT- LTG dynamic standing balance Description: OT - Patient will tolerate at least 8-10 minutes of sustained dynamic standing/functional mobility while engaged in ADL/therapeutic activities/exercises with modified independence in preparation for ADL's. Outcome: Not Met Goal: OT- LTG in-hand manipulation/coordination Description: OT - Patient will participate in various neuromuscular reeducation/therapeutic activity/exercises to improve bimanual coordination which would include reaction time and functional strength to improve efficiency with ADL performance as evidenced by at least making 10% improvement in hand function outcome measures. Outcome: Not Met Justification of Medical Necessity and Intensity of Service: Pt would benefit from skilled OT services in this inpatient rehabilitation facility with a multidisciplinary team approach to address the above-listed deficits/education needs in order to maximize independence with ADLs/IADLs upon discharge home. Pt wants to return home with family assist and has good potential for success in this environment to increase independence, safety, and quality of life after participating in intense OT. Signs and symptoms of abuse / neglect: No Describe: Past Medical History: Diagnosis Date Arthritis Back pain CHF (congestive heart failure) (HCC) COPD (chronic obstructive pulmonary disease) (HCC) Coronary artery disease Diabetes mellitus (HCC) Diabetes mellitus, type 2 (HCC) Disease of thyroid gland GERD (gastroesophageal reflux disease) Hernia of abdominal wall Hyperlipidemia Hypertension Myocardial infarction (HCC) Sleep apnea, obstructive refuses to use c-pap Stroke (HCC) Past Surgical History: Procedure Laterality Date CABG AVR W/ MAZE Bilateral 08/12/2021 Procedure: CORONARY ARTERY BYPASS GRAFT TIMES THREE (krueger-lad, svg-d1, svg- drca)WITH ENDOVEIN HARVEST, Aortic valve replacement (27mm Paul Inspiris), full LA MAZE (Encompass RFA box, RFA HEATHER, cryoRA caval and RAA line), LEFT ATRIAL APPENDAGE LIGATION (40mm AtriCLIP), TRANSESOPHAGEAL ECHOCARDIOGRAM; Surgeon: Luis Beasley MD; Location: [facility]; Service: Cardiothoracic CARDIAC CATHETERIZATION CARDIAC CATHETERIZATION Bilateral 07/01/2021 No intervention, right radial CARDIAC CATHETERIZATION N/A 07/01/2021 Procedure: Coronary Angiogram; Surgeon: Shmuel Villalpando MD; Location: [facility]; Service: Cardiovascular CARDIAC CATHETERIZATION N/A 07/01/2021 Procedure: Right Heart Cath; Surgeon: Shmuel Villalpando MD; [facility]: [facility]; Service: Cardiovascular CARDIAC CATHETERIZATION N/A 07/01/2021 Procedure: Left Ventriculogram; Surgeon: Shmuel Villalpando MD; [facility]: [facility]; Service: Cardiovascular CARDIAC CATHETERIZATION N/A 07/01/2021 Procedure: Left Heart Cath; Surgeon: Shmuel Villalpando MD; Location: [facility]; Service: Cardiovascular cataracts removed Bilateral CORONARY STENT PLACEMENT EP - INTERVENTION N/A 08/24/2021 Procedure: Cardioversion/CTA; Surgeon: Abhishek Lauren MD; Location: [facility]; Service: Cardiovascular HERNIA REPAIR W/HYDROCELE Right Handoff given to primary RN. Exit Protocol Followed: Yes For complete objective data, detailed plan of care and patient education refer to: OT EVALUATION flow sheet, OT TREATMENT flow sheet, patient Plan of Care, Plan of Care progress note, and Patient Education. * Katie Cuellra RN - 01/15/2023 5:59 PM ESTAssociated Order(s): IP CONSULT TO CARE MANAGEMENT Care Management Consult Note Date: 01/15/2023 Time: 5:59 PM Patient Name: Kevin White Date of : 1940 Reason for Consult: Discharge Needs Community, Mental Health, Additional Resources Discharge Plan: Home with spouse Discharging Transportation Plan: TBD Discharge Plan Status: in progress Assessment and Background Information: Living Arrangements: Spouse/significant other Support Systems: Spouse/significant other, Children, Family members Assistance Needed: yes (indpt CREATIVE INTERN) Type of Residence: Private residence, Multi-level (stairs) (2 level home 5-8 MADI, 2 hR Bed /bath 2nd floor, 1/2 bath on main floor Walk in shower) Prior to Admission Home Care Services: No Patient expects to be discharged to:: home Does the patient need discharge transport arranged?: (TBD) Current Home Equipment: Wheeled walker, Cane, Tub/Shower chair Holistic Assessment Medication adherence problem:: No History of falls in last 6 months:: (!) Yes Family aware of the patient's advance care planning wishes:: Yes (has ACP doc on file) Do you have any cultural/spiritual connections or beliefs that would impact how we deliver your care?: No Chronic pain:: (!) Yes Location of chronic pain:: Back Care Management , assessment Chart has been reviewed, see H&P for relevant medical history. will see pt to complete face to face assessment at later time Living Arrangements & listed support systems as: per chart : Lives With: Spouse Type of Home: House Home Layout: Two level, Bed and full bath upstairs, 1/2 bath on main level Steps to enter home: Yes Rails to enter home: 2 rails Number of stairs to enter home: 5 Bathroom Shower/Tub: Walk-in shower Bathroom Toilet: Standard Bathroom Equipment: Shower chair, Grab bars in shower Mobility Equipment: Wheeled walker, Cane Level of function prior to admit: per chart : Level of Bishop - Transfers/Ambulation/Mobility: Independent with functional transfers, Independent with household ambulation, Independent with community ambulation Level of Bishop - ADLs: Independent Level of Bishop - Homemaking: Independent Driving: Patient drives Will continue to follow & assist to develop appropriate discharge plan to meet patient needs asIP Rehab admit progresses. documented in this [id number] Consult note* Bethany Marroquin CNP - 01/20/2023 11:13 AM ESTAssociated Order(s): IP CONSULT TO NEPHROLOGY NEPHROLOGY CONSULTATION NOTE [facility] Patient Name: Kevin White MR #: [id number] : 1940 Requesting physician: Hospitalist Reason for consult: AJAY vs CKD Impression/Plan : Acute kidney injury due to hemodynamic mediated changes in the setting of renal hypoperfusion; has had hospitalization from 01/06-01/15 due to stroke. UA showed 30mg protein and Hyaline casts. -renal US showed no hydronephrosis. Showed simple cyst. -creatinine 1.6mg/dL. not far from baseline which is ~1.1-1.3mg/dL -likely has CKD stage III with baseline creatinine as noted above due to hypertension, CAD, long standing diabetes, and microvascular disease. -Avoid NSAIDs. No need for diuretics; appears euvolemic -We will sign off at this time. We will set up follow up with our office in [place]. 2. S/p MCA CVA s/p TPA -hospitalized at [facility] 01/06-01/15 -currently in Inpatient rehab -on aspirin and eliquis 3. Hypertension: Blood pressures stable 4. Afib: -on tikosyn History of Presenting Illness: Kevin White is a 82 y.o. 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 CKD stage II/III with baseline creatinine ~1.1-1.3mg/dL presented to the inpatient rehab from [facility] after experiencing a stroke where he was hospitalized from 01/06/23-01/15/23. He was admitted to [facility] and found to haveacute right MCA CVA s/p TPA. He was started on ASA and elquis in [facility]. -We are being consulted for creatinine of 1.3-1.6mg/dL. -appears over review that baseline creatinine is ~1.1-1.3mg/dL. He has never followed with nephrology in the past. Renal US showed right kidney 11x6x4.5cm no hydronephrosis, left kidney 10.7x6.5x5.1cm no hydronephrosis.. a 1.4cm cyst is noted. -UA showed cloudy appearance, 30mg protein, 6-10 hyaline casts. -echo showed EF 59%, aortic bioprosthesis appears well-seated not well visualized. -left atrial chamber mildly enlarged with a left atrium. History: Past Medical History: Diagnosis Date Arthritis Back pain CHF (congestive heart failure) (HCC) COPD (chronic obstructive pulmonary disease) (HCC) Coronary artery disease Diabetes mellitus (HCC) Diabetes mellitus, type 2 (HCC) Disease of thyroid gland GERD (gastroesophageal reflux disease) Hernia of abdominal wall Hyperlipidemia Hypertension Myocardial infarction (HCC) Sleep apnea, obstructive refuses to use c-pap Stroke (HCC) Past Surgical History: Procedure Laterality Date CABG AVR W/ MAZE Bilateral 08/12/2021 Procedure: CORONARY ARTERY BYPASS GRAFT TIMES THREE (krueger-lad, svg-d1, svg- drca)WITH ENDOVEIN HARVEST, Aortic valve replacement (27mm Paul Inspiris), full LA MAZE (Encompass RFA box, RFA HEATHER, cryoRA caval and RAA line), LEFT ATRIAL APPENDAGE LIGATION (40mm AtriCLIP), TRANSESOPHAGEAL ECHOCARDIOGRAM; Surgeon: Luis Beasley MD; Location: [facility]; Service: Cardiothoracic CARDIAC CATHETERIZATION CARDIAC CATHETERIZATION Bilateral 07/01/2021 No intervention, right radial CARDIAC CATHETERIZATION N/A 07/01/2021 Procedure: Coronary Angiogram; Surgeon: Shmuel Villalpando MD; Location: [facility]; Service: Cardiovascular CARDIAC CATHETERIZATION N/A 07/01/2021 Procedure: Right Heart Cath; Surgeon: Shmuel Villalpando MD; Location: [facility]; Service: Cardiovascular CARDIAC CATHETERIZATION N/A 07/01/2021 Procedure: Left Ventriculogram; Surgeon: Shmuel Villalpando MD; Location: [facility]; Service: Cardiovascular CARDIAC CATHETERIZATION N/A 07/01/2021 Procedure: Left Heart Cath; Surgeon: Shmuel Villalpando MD; Location: [facility]; Service: Cardiovascular cataracts removed Bilateral CORONARY STENT PLACEMENT EP - INTERVENTION N/A 08/24/2021 Procedure: Cardioversion/CTA; Surgeon: Abhishek Lauren MD; Location: [facility]; Service: Cardiovascular HERNIA REPAIR W/HYDROCELE Right Family History: Family History Problem Relation Age of Onset Heart disease Father [] Unable to obtain due to ventilated and/or neurologic status Social History Socioeconomic History Marital status: Spouse name: Antonella Occupational History Employer: OTHER- Occupation: Retired from [employer] Tobacco Use Smoking status: Never Smokeless tobacco: Never Vaping Use Vaping Use: Never used Substance and Sexual Activity Alcohol use: Not Currently Comment: beer occasionally Drug use: Never Sexual activity: Not Currently Social Determinants of Health Transportation Needs: No Transportation Needs (01/16/2023) PRAPARE - Transportation Lack of Transportation (Medical): No Lack of Transportation (Non-Medical): No [] Unable to obtain due to ventilated and/or neurologic status Living Arrangements: Spouse/significant other Support Systems: Spouse/significant other, Children, Family members Home Medications: Outpatient Medications as of 01/20/2023 Medication Sig amLODIPine (NORVASC) 10 MG tablet Take 1 (one) tablet (10 mg total) by mouth daily . apixaban (ELIQUIS) 5 mg Tab Take 1 (one) tablet (5 mg total) by mouth 2 (two) times a day . furosemide (LASIX) 20 MG tablet Take 1 (one) tablet (20 mg total) by mouth daily . magnesium oxide (MAG-OX) 400 mg (241.3 mg magnesium) tablet Take 1 (one) tablet (400 mg total) by mouth daily Start: 01/09/23. potassium chloride SA (K-DUR,KLOR-CON) 20 MEQ tablet Take 1 (one) tablet (20 mEq total) by mouth daily . Current Hospital Medications: Scheduled Meds: amLODIPine 10 mg Oral Daily apixaban 5 mg Oral BID atorvastatin 40 mg Oral Nightly cyanocobalamin 1,000 mcg Oral Daily dofetilide 250 mcg Oral Q12H GENIE FLUoxetine 20 mg Oral Daily lispro insulin 0-15 Units Subcutaneous at bedtime insulin lispro 0-30 Units Subcutaneous TID AC levothyroxine 175 mcg Oral Daily lisinopriL 10 mg Oral Daily with lunch magnesium oxide 400 mg Oral Daily melatonin 5 mg Oral Nightly multivitamin 1 tablet Oral Daily nystatin 500,000 Units Oral 4x daily pantoprazole 40 mg Oral Daily polyethylene glycol 17 g Oral Daily senna-docusate 1 tablet Oral BID sodium chloride (PF) 5 mL Intravenous Q8H GENIE tamsulosin 0.4 mg Oral After evening meal Continuous Infusions: sodium chloride 0.9 % PRN Meds:.acetaminophen, albuterol, aluminum-magnesium hydroxide-simethicone, bisacodyL, hydrALAZINE, lidocaine HCL, ondansetron, polyethylene glycol, Saline lock IV AND sodium chloride (PF) AND sodium chloride (PF) AND sodium chloride 0.9 %, traZODone sodium chloride 0.9 % Allergies: I have reviewed the patient's allergies. Patient has no known allergies. Review of Systems: [x] CV, Resp, GI, Neuro, and all other systems reviewed and negative other than listed in HPI. [] Unable to obtain due to intubation and/or neurologic status. Objective Findings: Vitals:BP 137/69 Pulse 65 Temp 97.9 F (36.6 C) (Oral) Resp 16 Ht 6' Wt 107.4 kg (236 lb 12.4 oz) SpO2 95% BMI 32.11 kg/m Intake/Output last 3 shifts: Intake/Output Summary (Last 24 hours) at 01/20/2023 1113 Last data filed at 01/20/2023 0940 Gross per 24 hour Intake 840 ml Output 250 ml Net 590 ml I/O last 3 completed shifts: In: 720 [P.O.:720] Out: 253 [Urine:253] Physical Examination: General: Age appropriate, NAD. HEENT: Normocephalic, no scleral icterus. Neck: No JVD. Heart: Regular, no murmur, no rub/gallop. Lungs: Clear to ascultation, no rales/wheezing/rhonchi. Abdomen: Soft, nontender, no supra-public fullness or tenderness. Extremities: No clubbing/cyanosis, no edema. Skin: Warm, dry, normal turgor, no rash, no bruise, no petichiae. Neuro: No myoclonus or tremor. Psych: Normal affect. : [] Adame present [x] Adame not present Results/Medications Reviewed: 01/20/23 11:13 AM: Laboratory, Microbiology, Pathology, Radiology, Cardiology, Medications and Transcriptions Laboratory: Results from last 7 days Lab Units 01/18/23 0718 01/16/23 0921 WBC K/mcL 6.08 6.83 HGB g/dL 13.4* 13.1* HCT % 41.5 40.5* PLT K/mcL 172 184 Results from last 7 days Lab Units 01/20/23 0600 01/19/23 0703 01/18/23 0718 SODIUM mmol/L 137 136 136 POTASSIUM mmol/L 4.9 4.5 4.8 CHLORIDE mmol/L 106 104 105 BICARB mmol/L 27 26 27 BUN mg/dL 25 25 22 CREATININE mg/dL 1.55* 1.60* 1.45* EGFR mL/min/1.73 m2 45* 43* 48* GLUCOSE mg/dL 132* 158* 134* CALCIUM mg/dL 8.5 9.0 8.8 Urinalysis Results from last 7 days Lab Units 01/19/23 1154 COLOR, UR Yellow CLARITY, UR Cloudy* SPEC GRAV 1.027* PH, UR 5.0 GLUCOSE, UR mg/dL 50* KETONES, UR mg/dL Trace* BILIRUBIN, UR Negative UROBILINOGEN, UR mg/dL 2.0* BLOOD, UR Negative NITRITE, UR Negative LEUK RAFAELA, UR Negative MUCUS, UR /lpf Rare WBC, UR /hpf 12* BACTERIA, UR /hpf None Seen HYALINE CASTS /lpf 6-10* Comments: Thank you for allowing us to participate in the care of this patient. We will continue to follow. Please call if questions or concerns arise. [facility] [employer] Work Phone: [phone] 595-811812-05-2023 Note* Plan of Care - Prochaska, Chelo A, RN - 01/19/2023 10:55 PM EST Problem: Actual or potential alteration in health Goal: Absence of healthcare acquired conditions Outcome: Partially Met Goal: Knowledge of Interdisciplinary Plan of Care Outcome: Partially Met Goal: Knowledge of Enviroment Outcome: Partially Met Problem: Pressure Ulcer - Risk of Goal: Absence of pressure ulcer Outcome: Partially Met Problem: Pain Goal: Manage acute pain Outcome: Partially Met Goal: Manage chronic pain Outcome: Partially Met Goal: Reduced pain sensation Outcome: Partially Met Goal: Achievement of comfort function goal Outcome: Partially Met Problem: Falls, Risk of Goal: Absence of falls Outcome: Partially Met [id number]* Plan of Care - Marissa Glasgwo RN - 01/19/2023 2:14 AM EST [facility] Nurse Notes Problem: Actual or potential alteration in health Goal: Absence of healthcare acquired conditions Outcome: Partially Met Goal: Knowledge of Interdisciplinary Plan of Care Outcome: Partially Met Goal: Knowledge of Enviroment Outcome: Partially Met Problem: Pressure Ulcer - Risk of Goal: Absence of pressure ulcer Outcome: Partially Met Problem: Pain Goal: Manage acute pain Outcome: Partially Met Goal: Manage chronic pain Outcome: Partially Met Goal: Reduced pain sensation Outcome: Partially Met Goal: Achievement of comfort function goal Outcome: Partially Met [id number] Note* Plan of Care - Dorothy Quijano PT - 01/18/2023 4:26 PM EST [facility] Physical Therapy Notes Problem: Mobility - Impaired Goal: PT- LTG bed mobility Description: PT - Patient will perform bed mobility with modified independence to improve functional mobility and safety. Outcome: Not Met Note: Supervision with cues Goal: PT- LTG stand-pivot transfer Description: PT - Patient will perform stand-pivot transfer with modified independence , supervision with or without appropriate device to improve functional mobility and safety. Outcome: Partially Met Note: SBA/CGA with rollator or RW with cues for hand placement and safety with rollator brakes Goal: PT- LTG car transfer Description: PT - Patient will perform car transfer with modified independence , supervision to improve functional mobility and safety. Outcome: Not Met Note: Superviison/ CGA Goal: PT- LTG dynamic balance Description: PT - Patient will improve MARSHALL score from 31/56 to >45/56 to improve functional mobility and safety and decrease fall risk. Outcome: Not Addressed Note: NT since eval Goal: PT- LTG ambulation Description: PT - Patient will ambulate 300 feet with or without appropriate device with modified independence , supervision to improve functional mobility and safety. Outcome: Not Met Note: 270 ft with RW and SBA/CGA with RW/ rollator with increased cues for technique Goal: PT- LTG stair climbing Description: PT - Patient will ascend and descend 7 stairs with reciprocal technique with 2 rails with supervision to improve functional mobility and safety. Outcome: Not Met Note: 12 steps with 1-2 HR and CGA and cues for safety. Goal: PT- LTG mobility other Description: PT- Patient will be able to complete TUG in < 12 seconds with supervision/ modifiedindependence with or without appropriate device to decrease fall risk with functional mobility. Outcome: Not Addressed Problem: Impaired Strength Goal: PT- STG strengthening Description: PT - Patient will complete left hip knee ankle home strengthening exercise program independently in preparation for function. Outcome: Partially Met Note: Pt with supervision and cues for technique. Problem: Mobility - Impaired Goal: PT- LTG wheelchair management Description: PT - Patient will propel and manage wheelchair 150 feet on even and uneven surfaces with independence to improve functional mobility and safety. Outcome: Not Addressed Note: NT since eval going 252 ft with supervision. Pt has made minimal progress towards his goals due to just being evaluated, but is partially meeting them. he has gained strength and independence in all areas of mobility. Pt is limited at this timedue to pain, strength, and endurance. he will need to work more on his stairs for home going. Family/caregiver training will need completed. he will need to also work on his standing balance for tasks at home. Cont with PT POC. [id number] Note* Plan of Care - Kassidy Pierre OT - 01/18/2023 4:01 PM EST [facility] Occupational Therapy Notes Problem: Self-care Deficit Goal: OT- LTG feeding Description: OT - Patient will complete self-feeding with modified independence to improve self care function. Outcome: Not Addressed Goal: OT- LTG grooming Description: OT - Patient will complete grooming standing at the sink with modified independence toimprove self care function. Outcome: Not Addressed Goal: OT- LTG UB dressing Description: OT - Patient will complete UB/LB dressing, which would include gathering clothing fromcloset, with modified independence to improve self care function. Outcome: Partially Met Note: SBA for UBD, CGA for LBD Goal: OT- LTG UB bathing Description: OT - Patient will complete UB/LB showering with modified independence to improve self care function. Outcome: Not Addressed Goal: OT- LTG home management Description: OT - Patient will tolerate at least 8-10 minutes of static standing to complete home management with modified independence to improve self care function. Outcome: Not Addressed Problem: Impaired Strength Goal: OT- LTG Strength Other Description: OT- Patient will tolerate at least 5-8 minutes of sustained UB AROM/ strengthening therapeutic exercises seated/standing to improve functional strength for safe DME management and ADL performance. Outcome: Partially Met Note: Theraband exercises Problem: Cognition - Impaired Goal: OT- LTG sequencing Description: OT - Patient will sequence 3 or more step task with modified independence in preparation for ADL's. Outcome: Partially Met Problem: Impaired Neurologic Function Goal: OT- LTG dynamic sitting balance Description: OT - Patient will complete sustained dynamic sitting balance activity for at least 15 minutes with modified independence in preparation for ADL's. Outcome: Partially Met Goal: OT- LTG dynamic standing balance Description: OT - Patient will tolerate at least 8-10 minutes of sustained dynamic standing/functional mobility while engaged in ADL/therapeutic activities/exercises with modified independence in preparation for ADL's. Outcome: Partially Met Note: 5 minutes with CGA for static standing balance Goal: OT- LTG in-hand manipulation/coordination Description: OT - Patient will participate in various neuromuscular reeducation/therapeutic activity/exercises to improve bimanual coordination which would include reaction time and functional strength to improve efficiency with ADL performance as evidenced by at least making 10% improvement in hand function outcome measures. Outcome: Not Met Summary: Pt is making fair progress towards OT goals. Pt has demonstrated improvements in ADL's andtransfers. Barriers to discharge include balance deficits. Plan to address caregiver training priorto date of discharge for improved safety at home. Also need to prioritize balance and IADL's in therapy sessions. Continue to address goals in POC. [id number] Note* Plan of Care - Cesia Poon, ACADEMIC SERVICES PROFESSIONAL - 01/18/2023 3:[address] [facility] Speech Language Pathology Notes Problem: Communication - Impaired Goal: ST- STG Expressive- verbal description Description: ST Expressive - Patient will describe object function, pictures, and tasks with 90% accuracy and minimal cues. Outcome: Not Addressed Goal: ST- STG Motor speech- speech intelligibility strategies Description: ST Motor Speech - Patient will use speech intelligibility strategies at conversation level with 90% accuracy and minimal cues. Outcome: Not Addressed Goal: ST- STG Voice- strengthening/breath support Description: ST Voice - Patient will perform breath support exercises for improved functional phonation with 90% accuracy and minimal cues. Outcome: Not Addressed Goal: ST- LTG Motor speech- speech intelligibility strategies Description: ST Motor Speech - Patient will use speech intelligibility strategies at conversation level with no cues. Outcome: Not Addressed Problem: Swallowing - Impaired Goal: ST- STG Oral Swallowing- oral motor function Description: ST Oral Swallowing - Patient will perform oral motor exercises to improve strength, coordination and function of oral musculature x 15 repetitions with minimal cues. Outcome: Not Addressed Goal: ST- STG Oral Swallowing- lingual strength Description: ST Swallowing - Patient will complete isometric lingual strengthening exercises x 15 repetitions with minimal cues. Outcome: Not Addressed Goal: ST- STG Swallow Strategies/Postures- safe swallowing strategies Description: ST Swallow Strategies/Postures - Patient will demonstrate use of safe swallowing strategies with minimal cues. Outcome: Not Addressed Goal: ST- STG Diet Tolerance- tolerate upgraded solids Description: ST - Diet Tolerance - Patient will tolerate upgrade of solid trials to NDD4 without overt or clinical signs or symptoms of aspiration via clinical assessment. Outcome: Not Addressed Goal: ST- LTG Swallow Strategies/Postures- safe swallowing strategies Description: ST Swallow Strategies/Postures - Patient will tolerate least restrictive diet with no overt signs/symptoms concerning for laryngeal penetration or aspiration or change in pulmonary status. Outcome: Not Addressed Problem: Cognition - Impaired Goal: ST- STG O-Log Description: ST O-Log - Patient will score a 25 or above on two separate administrations of the O-Log. Outcome: Partially Met Note: Patient scored 25/30 with noted difficulty in the areas of orientation to place, date, JESSICA, time and was noted to benefit from semantic and MC cues. Goal: ST- STG Memory- memory strategies Description: ST Memory - Patient will complete memory tasks with the use of memory strategies with 90% accuracy and minimal cues. Outcome: Not Addressed Goal: ST- STG Problem Solving- verbal problem solving Description: ST Problem Solving - Patient will complete basic progressing to complex verbal problemsolving and tasks with 90% accuracy and minimal cues. Outcome: Not Addressed Goal: ST- STG Executive Function- sequencing/organization/planning Description: ST Executive Function - Patient will complete basic sequencing, organizing, and planning tasks with 90% accuracy and minimal cues. Outcome: Partially Met Note: Pt completed sequencing, reasoning, attention and organizing via sequencing 4 step written tasks w/25% acc w/mod I and benefited from min-mod A semantic and logical cueing to increase acc to 100% [id number] Note* Plan of Care - Ludin Stock RN - 01/18/2023 12:22 AM EST Problem: Actual or potential alteration in health Goal: Absence of healthcare acquired conditions 01/18/202321 by Ludin Stock RN Outcome: Partially Met 01/18/202310 by Ludin Stock, RN Outcome: Partially Met Goal: Knowledge of Interdisciplinary Plan of Care 01/18/202321 by Ludin Stock RN Outcome: Partially Met 01/18/202310 by Ludin Stock, RN Outcome: Partially Met Goal: Knowledge of Enviroment 01/18/202321 by Ludin Stock, RN Outcome: Partially Met 01/18/202310 by Ludin Stock, RN Outcome: Partially Met Problem: Pressure Ulcer - Risk of Goal: Absence of pressure ulcer 01/18/202321 by Ludin Stock RN Outcome: Partially Met 01/18/202310 by Ludin Stock RN Outcome: Partially Met Problem: Pain Goal: Manage acute pain 01/18/202321 by Ludin Stock RN Outcome: Partially Met 01/18/202310 by Ludin Stock RN Outcome: Partially Met Goal: Manage chronic pain 01/18/202321 by Ludin Stock RN Outcome: Partially Met 01/18/202310 by Ludin Stock RN Outcome: Partially Met Goal: Reduced pain sensation 01/18/202321 by Ludin Stock RN Outcome: Partially Met 01/18/202310 by Ludin Stock RN Outcome: Partially Met Goal: Achievement of comfort function goal 01/18/202321 by Ludin Stock RN Outcome: Partially Met 01/18/202310 by Ludin Stock RN Outcome: Partially Met [id number] Note* Plan of Care - Ludin Stock RN - 01/18/2023 12:11 AM EST Problem: Actual or potential alteration in health Goal: Absence of healthcare acquired conditions Outcome: Partially Met Goal: Knowledge of Interdisciplinary Plan of Care Outcome: Partially Met Goal: Knowledge of Enviroment Outcome: Partially Met Problem: Pressure Ulcer - Risk of Goal: Absence of pressure ulcer Outcome: Partially Met Problem: Pain Goal: Manage acute pain Outcome: Partially Met Goal: Manage chronic pain Outcome: Partially Met Goal: Reduced pain sensation Outcome: Partially Met Goal: Achievement of comfort function goal Outcome: Partially Met [place] [id number] Note* Plan of Care - Mayra Hgoue RN - 01/17/2023 11:16 AM EST [facility] Nurse Notes Problem: Actual or potential alteration in health Goal: Absence of healthcare acquired conditions Outcome: Partially Met Goal: Knowledge of Interdisciplinary Plan of Care Outcome: Partially Met Goal: Knowledge of Enviroment Outcome: Partially Met Problem: Pressure Ulcer - Risk of Goal: Absence of pressure ulcer Outcome: Partially Met Problem: Pain Goal: Manage acute pain Outcome: Partially Met Goal: Manage chronic pain Outcome: Partially Met Goal: Reduced pain sensation Outcome: Partially Met Goal: Achievement of comfort function goal Outcome: Partially Met [place] [id number] Note* Plan of Care - Ludin Stock RN - 01/17/2023 3:10 AM EST Problem: Actual or potential alteration in health Goal: Absence of healthcare acquired conditions Outcome: Partially Met Goal: Knowledge of Interdisciplinary Plan of Care Outcome: Partially Met Goal: Knowledge of Enviroment Outcome: Partially Met Problem: Pressure Ulcer - Risk of Goal: Absence of pressure ulcer Outcome: Partially Met Problem: Pain Goal: Manage acute pain Outcome: Partially Met Goal: Manage chronic pain Outcome: Partially Met Goal: Reduced pain sensation Outcome: Partially Met Goal: Achievement of comfort function goal Outcome: Partially Met [place] [id number] Consult note* Tammy Cadena CNP - 01/16/2023 11:51 AM ESTAssociated Order(s): [place] [facility] Patient Name: Kevin White : 1940 MR #: [id number] Admit Date: 01/15/2023 Physicians: Moi Gibson MD (Family); No ref. provider found (Referring) Kevin White is a 82 y.o. male patient of Moi Gibson MD with history of arthritis, back pain, CHF, COPD, coronary artery disease, diabetes, thyroid disease, GERD, anemia, hyperlipidemia, hypertension, myocardial infarction, sleep apnea, stroke. Patient initially presented with stroke likesymptoms 01/06/23, was transferred to [facility] found to have had an acute R MCACVA. Patient presented on 01/15/2023 to inpatient rehab with debility and decreased ability to complete ADLs following prolonged hospitalization. [facility] Shahrzad Odom DO for medical management. Debility Decreased ability to complete ADLs Dysphagia PT/OT/ST eval and treat Management per primary team Care management consult for discharge planning Acute R MCA CVA s/p TPA Evaluated and treated at [facility], s/p TPA Neurology recommending BP goals less than 130/80, avoid hypotension, ASA 81 mg daily, Eliquis 5 mg BID, Lipitor 40 mg, follow up with Neurology 02/01/23 Hypertension CAD Atrial fibrillation Chronic HFpEF S/p Cardioversion 03/06/22 Continue Norvasc, Lasix, lisinopril, Tikosyn, Eliquis Will need order sent to pharmacy Wednesday to verify coverage of Eliquis Diabetes Hemoglobin A1c 6.6 on 01/06/2023 Continue Lantus Sliding scale insulin as needed Anemia Baseline hemoglobin normal Hemoglobin currently stable at 13.1 No need for transfusion at this time, transfuse if hemoglobin drops below 8 CKD Baseline creatinine around 1.4 Currently at baseline BPH Continue Flomax Quality Measures DVT Prophylaxis: eliquis Adame Catheter: absent Medication Reconciliation: Verified Chief Complaint debility and decreased ability to complete ADLs History of Present Illness Kevin White is a 82 y.o. male patient of Moi Gibson MD with history of arthritis, back pain, CHF, COPD, coronary artery disease, diabetes, thyroid disease, GERD, anemia, hyperlipidemia, hypertension, myocardial infarction, sleep apnea, stroke. Patient initially presented with stroke likesymptoms 01/06/23, was transferred to [facility] found to have had an acute R MCACVA. Patient presented on 01/15/2023 to inpatient rehab with debility and decreased ability to complete ADLs following prolonged hospitalization. [facility] [place] Shahrzad Odom DO for medical management. Past Medical History Past Medical History: Diagnosis Date Arthritis Back pain CHF (congestive heart failure) (HCC) COPD (chronic obstructive pulmonary disease) (HCC) Coronary artery disease Diabetes mellitus (HCC) Diabetes mellitus, type 2 (HCC) Disease of thyroid gland GERD (gastroesophageal reflux disease) Hernia of abdominal wall Hyperlipidemia Hypertension Myocardial infarction (HCC) Sleep apnea, obstructive refuses to use c-pap Stroke (HCC) Past Surgical History Past Surgical History: Procedure Laterality Date CABG AVR W/ MAZE Bilateral 08/12/2021 Procedure: CORONARY ARTERY BYPASS GRAFT TIMES THREE (krueger-lad, svg-d1, svg- drca)WITH ENDOVEIN HARVEST, Aortic valve replacement (27mm Paul Inspiris), full LA MAZE ([employer] RFA box, RFA HEATHER, cryoRA caval and RAA line), LEFT ATRIAL APPENDAGE LIGATION (40mm AtriCLIP), TRANSESOPHAGEAL ECHOCARDIOGRAM; Surgeon: Luis Beasley MD; Location: [facility]; Service: Cardiothoracic CARDIAC CATHETERIZATION CARDIAC CATHETERIZATION Bilateral 07/01/2021 No intervention, right radial CARDIAC CATHETERIZATION N/A 07/01/2021 Procedure: Coronary Angiogram; Surgeon: Shmuel Villalpando MD; Location: [facility]; Service: Cardiovascular CARDIAC CATHETERIZATION N/A 07/01/2021 Procedure: Right Heart Cath; Surgeon: Shmuel Villalpando MD; Location: [facility]; Service: Cardiovascular CARDIAC CATHETERIZATION N/A 07/01/2021 Procedure: Left Ventriculogram; Surgeon: Shmuel Villalpando MD; Location: [facility]; Service: Cardiovascular CARDIAC CATHETERIZATION N/A 07/01/2021 Procedure: Left Heart Cath; Surgeon: Shmuel Villalpando MD; Location: [facility]; Service: Cardiovascular cataracts removed Bilateral CORONARY STENT PLACEMENT EP - INTERVENTION N/A 08/24/2021 Procedure: Cardioversion/CTA; Surgeon: Abhishek Lauren MD; Location: [facility] EP LAB; Service: Cardiovascular HERNIA REPAIR W/HYDROCELE Right Family History Family History Problem Relation Age of Onset Heart disease Father Social History Social History Tobacco Use Smoking Status Never Smokeless Tobacco Never Social History Substance and Sexual Activity Alcohol Use Not Currently Comment: beer occasionally Social History Substance and Sexual Activity Drug Use Never Allergy Information I have reviewed the patient's allergies. Patient has no known allergies. Home Medications Home medications were reviewed. Review Of Systems All relevant systems have been reviewed and are negative except as noted in HPI or below Physical Examination BP (!) 152/94 Pulse 77 Temp 97.5 F (36.4 C) (Oral) Resp 16 Ht 6' Wt 84.6 kg (186 lb 8.2 oz) SpO2 95% BMI 25.30 kg/m Physical Examination General Appearance: alert; chronically ill appearing; in no acute distress HEENT: Head- normocephalic; Eyes- EOMI, sclera anicteric; Throat- mucous membranes moist Cardiovascular: regular rate and rhythm; normal S1, S2; no murmurs, rubs, clicks or gallops; peripheral edema present Respiratory: lungs clear to auscultation; without wheezes, rales or rhonchi; on room air Abdomen: soft, non-tender, non-distended Neurological: oriented x 3; normal speech; no focal findings or movement disorder noted Musculoskeletal: no significant deformity or tenderness to palpation Skin: normal coloration Psych: normal mood and affect Associated attestation - Taco Raymond MD - 01/16/2023 1:34 PM EST Patient seen, evaluated and managed by [employer] independently. I was not involved in the care of this patient, but was readily available for consultation if needed by [employer]. [id number] Note* Plan of Care - Mayra Hogue RN - 01/16/2023 10:13 AM EST [facility] Nurse Notes Problem: Actual or potential alteration in health Goal: Absence of healthcare acquired conditions Outcome: Partially Met Goal: Knowledge of Interdisciplinary Plan of Care Outcome: Partially Met Goal: Knowledge of Enviroment Outcome: Partially Met Problem: Pressure Ulcer - Risk of Goal: Absence of pressure ulcer Outcome: Partially Met Problem: Pain Goal: Manage acute pain Outcome: Partially Met Goal: Manage chronic pain Outcome: Partially Met Goal: Reduced pain sensation Outcome: Partially Met Goal: Achievement of comfort function goal Outcome: Partially Met [id number] Consult note* Christin Mendez, PT - 01/16/2023 9:33 AM EST PHYSICAL THERAPY EVALUATION NOTE PT Time Calculation: Start time: 9:33 am Stop time: 11:00am Time calculation: 87 PT Individual Minutes: 87 min Dx: 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 CT of head01/07 with evolution of R MCA CVA with petechial hemorrhage Hx: left atrial appendage occlusion, recurrent cardioembolic event Pt denies having hearing aids. Unsure of delay in responses due in some part to both EWIIAAPAAYP and cognitive processing delays. Pt with left facial droop and drooling out of left side of mouth noted to increase as pt fatigued. Pt with left neglect as he often requires cues for utilizing left ue for transfer safety and wc propulsion. Pt with much right left confusion and questions is that right? When asked to utilizes specific leg for task performance or for directional changes. Pt incorrect with left/right choice 75% of trials this date. Pt very motivated and cooperative in participation of therapy interventions and assessment. Problem List / Diagnosis Patient Active Problem List Diagnosis Hypertension Hyperlipidemia CAD (coronary artery disease) Type 2 diabetes mellitus without complication, without long-term current use of insulin (HCC) Atrial fibrillation (HCC) NAJMA (obstructive sleep apnea) COVID-19 Nonrheumatic aortic valve stenosis Aortic stenosis, severe A-fib (HCC) Ischemic stroke (HCC) Acute cerebrovascular accident (CVA) (HCC) Marshall Balance Index Sit to Stand: Able to stand using hands after several tries Standing Unsupported: Able to stand 2 minutes with supervision Sitting Unsupported But Feet Supported on Floor or Stool: Able to sit safely and securely for 2 minutes Standing to Sitting: Controls descent by using hands Transfers: Able to transfer safely definite need of hands Standing Unsupported With Eyes Closed: Able to stand 10 seconds with supervision Standing Unsupported With Feet Together: Needs help to attain position but able to stand 15 secondsfeet together Reaching Forward with Outstretched Arms while Standing: Can reach forward 5 inches Forensic Nurse Object From The Floor From a Standing Position: Able to mushroom picker object but needs supervision Turning to Look Behind Over Left and Right Shoulders While Standing: Looks behind from both sides and weight shifts well Turn 360 Degrees: Needs close supervision or verbal cuing Place Alternate Foot on Step or Stool While Standing Unsupported: Able to complete greater than 2 steps needs minimal assist Standing Unsupported One Foot Infront: Loses balance while stepping or standing Standing on One Leg: Unable to try or needs assist to prevent fall Marshlal Balance Scale Score: 31 Out of a Possible 56 TU.8sec; cga no device, gait belt Physical Therapy Assessment History: The following factors influence the patient's participation in the PT plan of care: Personal factors: decreased insight and impulsive behavior Environmental factors: steps to enter home and likes to work in basement building models - 7 steps with miryam rail The following co-morbidities (from this admission or prior) influence the patient's participation in this plan of care: See H & P Number of History elements affecting this patient's PT plan of care: 3 or more Examination of Body Systems: The patient presents with impairments of strength, functional endurance, coordination, balance, sensation, perception/neglect, cognition, activity tolerance. These impairments result in limitations of gait, functional transfers, stair- climbing, safety, safety awareness, activity tolerance, and insight. These impairments result in restrictions of household mobility, community mobility, and leisure activities. Number of Body Systems elements affecting this patient's PT plan of care: 3 or more Clinical Presentation: The patient's clinical presentation for this PT evaluation is evolving as evidenced by current PT documentation. Therapy Precautions Orthotic Devices: No Weight Bearing Status: WFL General Rehab Precautions: Fall risk (aspiration) Strength Assessment Strength RLE R Hip Flexion: 4+/5 R Knee Flexion: 4+/5 R Knee Extension: 4+/5 R Ankle Dorsiflexion: 4+/5 R Ankle Plantar Flexion: 4+/5 Strength LLE L Hip Flexion: 4/5 L Knee Flexion: 4/5 L Knee Extension: 4+/5 L Ankle Dorsiflexion: 4/5 L Ankle Plantar Flexion: 4/5 Vision Vision-Basic Assessment Current Vision: (pt reports that he has not noticed any visual changes since stroke.) Coordination Coordination RLE Assessment: X supine heel on jaquez: normal performance DADA (Rapid Alternating Movement)-reciprocal toe tapping on floor: normal performance LLE Assessment: X supine heel on jaquez: slight difficulty with movement accomplished DADA (Rapid Alternating Movement)-reciprocal toe tapping on floor: slight difficulty with movement accomplished Balance Balance Assessment Sitting Balance - Static: Supervision Sitting Balance - Dynamic: Stand by assist (due to impaired safety awareness) Standing Balance - Static: Stand by assist, without UE support Documentation Nurse - Standing Static: (gait belt) Loss of Balance- Standing Static: (mild postural sway with prolonged standing) Standing Balance - Dynamic: Contact guard assist, without UE support Documentation Nurse - Standing Dynamic: (gait belt) Loss of Balance- Standing Dynamic: intermittent Skilled Intervention: SHIRT CREASER BLOCK: cga for safety when picking up item at ground level from standing position, x4 trials due to impulsivity, and impaired safety awareness. Mild unsteadiness noted with grasping item from floor with left hand with item positioned on left side requiring more left weight shifting. cga for balance recovery. MARSHALL/56 indicating increased risk for fall without use of assistive device for functional mobility. TUG : 15.8, cga without device with mild impulsivity with directional change and mild unsteadiness; indicates increase fall risk Bed Mobility Bed Mobility Rolling: Supervision, Head of bed flat Supine to Sit: Supervision, Head of bed flat Sit to Supine: Supervision, Head of bed flat Documentation Nurse: (no rails) Skilled Intervention: Pt denies dizziness with positional changes. Pt does report mild SOB with bedmobility - SpO2 93% on RA. Transfers Transfers Sit to Stand: Contact guard assist Bed to Chair: Contact guard assist Stand Pivot Transfers: Contact guard assist Documentation Nurse: (gait belt) Skilled Intervention: X5 STS from EOB without ue support performed in 26.59 seconds with cga for safety as pt mildly impulsive with movements. X3 LOB posterior with initial stand from sit , improved with cues for pt to slow transitional movements. Pt does utilizes posterior aspect of miryam le's for vital pport on bed for balance. Pt able to complete consecutive 11 reps STS without ue support from EOB before requesting seated rest due to fatigue. Pt reports modified JAQUI of 5/10. Pt often requires cues for improving awereness to utilize left ue for support during transfers and to reach back prior tositting to better control stand to sit transfer, for safety. Functional Transfers Car Transfers: Contact guard assist, Supervision (CGA for STS; sba for mobilizing miryam le's in/out of car. on 2nd trial, pt does require x2 attempts to get left le into car) Documentation Nurse: BUE Skilled Intervention: Pt impulsive with movement, attempting to enter car before properly positioned at car seat for safety. Requires cues for proper hand placement for controlled transfer. Gait/Locomotion Gait / Locomotion Gait Assistance: Contact guard assist Assistive Device: (gait belt) Distance: 270 Feet (; 150 with mulitple turns; 12 ft on carpet with x1 turn) Rest Breaks: Yes Rest Break Position: seated Rest Break Duration: 1-2 min (between distance trials) Pattern: R decreased step length, L decreased step length, L impaired heel strike, decreased arm swing, trendelenburg (intermittant shuffling to left le) Weight Bearing Status: able to maintain Gait Loss(es) of Balance: intermittent (unsteadiness with directional changes and head movements during ambulation) Environment/Terrain: open/community environment, multiple distractions Stair Management Technique: two rails, step-to pattern, alternating pattern, forwards Stair Management Assistance: Contact guard assist Number of Stairs: 12 (6 inch steps) Wheelchair Mobility: Supervision Wheelchair distance: 252 Feet Wheelchair Environment/Terrain: open/community environment, multiple distractions Skilled Intervention: Pt demonstrates much left/ right confusion with cues provided for ascending steps with right le and descend leading with left le, as well as difficulting dicerning right and left during directional changes, requiring multiple cues for correct determination. Assistive device most likely to improve safety and stability of functional mobility. Home Living Obtained Home Living and PLOF info from: Patient, Review of patient s medical record Unable to obtain Home Living and PLOF info on initial eval: Patient is a questionable historian Lives With: Spouse, Son (son works 5 days a week and is unable to assist pt when working. pt reports in good health and can assist pt with needs after discharge.) Type of Home: House Home Layout: One level, Full bath on main level, Bed on main level, Stairs between floors, Work area in basement (laundry on main. house has basement and 1st floor. 1/2 bath in basement) Rails on inside stairs: 1 rail Number of stairs inside home: 7 Steps to enter home: Yes Rails to enter home: 2 rails Number of stairs to enter home: 5 Bathroom Shower/Tub: Walk-in shower, Main level Bathroom Toilet: Standard Bathroom Equipment: Grab bars in shower, Shower chair, Hand-held showerhead, Grab bars around toilet Bathroom Accessibility: Accessible via walker Mobility Equipment: Wheeled walker Additional Objective Details - Home Living: Pt reports that he likes to make lots of things in the basement ( model cars/trucks/semi's). Pt with expressive aphasia. Pt inconsistant with responses provided during PT evaluation versus previous consult. Pt is questionable historian. Prior Level of Function Receives Help From: Family ( and son ( son assists when not at work, as needed).) Level of Bishop - Transfers/Ambulation/Mobility: Independent with functional transfers, Independent with household ambulation, Independent with community ambulation (no device utilized) Level of Bishop - ADLs: Independent Level of Bishop - Homemaking: Independent Driving: Patient drives Vocational: Retired Leisure: Patient enjoys word searches, crossword's, and is a consistent churchgoer. Physical Therapy Goals Problem: Mobility - Impaired Goal: PT- LTG bed mobility Description: PT - Patient will perform bed mobility with modified independence to improve functional mobility and safety. Outcome: Not Addressed Goal: PT- LTG sit to stand transfer Description: PT - Patient will perform sit to/from stand transfer with modified independence to improve functional mobility and safety. Outcome: Not Addressed Goal: PT- LTG stand-pivot transfer Description: PT - Patient will perform stand-pivot transfer with modified independence , supervision with or without appropriate device to improve functional mobility and safety. Outcome: Not Addressed Goal: PT- LTG car transfer Description: PT - Patient will perform car transfer with modified independence , supervision to improve functional mobility and safety. Outcome: Not Addressed Goal: PT- LTG dynamic balance Description: PT - Patient will improve MARSHALL score from 31/56 to >45/56 to improve functional mobility and safety and decrease fall risk. Outcome: Not Addressed Goal: PT- LTG ambulation Description: PT - Patient will ambulate 300 feet with or without appropriate device with modified independence , supervision to improve functional mobility and safety. Outcome: Not Addressed Goal: PT- LTG stair climbing Description: PT - Patient will ascend and descend 7 stairs with reciprocal technique with 2 rails with supervision to improve functional mobility and safety. Outcome: Not Addressed Goal: PT- LTG mobility other Description: PT- Patient will be able to complete TUG in < 12 seconds with supervision/ modifiedindependence with or without appropriate device to decrease fall risk with functional mobility. Outcome: Not Addressed Problem: Impaired Strength Goal: PT- STG strengthening Description: PT - Patient will complete left hip knee ankle home strengthening exercise program independently in preparation for function. Outcome: Not Addressed Problem: Mobility - Impaired Goal: PT- LTG wheelchair management Description: PT - Patient will propel and manage wheelchair 150 feet on even and uneven surfaces with independence to improve functional mobility and safety. Outcome: Not Addressed Signs and symptoms of abuse / neglect: No Describe: Justification of medical necessity and intensity of service: Pt will need PT to increase strength and endurance to safely complete transfers and ambulate longerdistances. Pt also lacks sufficient balance to carry out ADLs and mobility and to be safe with ambulation and transfers to be able to return to their PLOF. Pt has decreased sitting and standing balance which puts pt at high fall risk. Pt is somewhat impulsive at times putting pt at higher fall risk and needs cues for safety. PT will also work on core strengthening to assist with trunk support andoverall activity tolerance. Pt is limited by weakness of bilateral UE and LE that interferes with independence with bed mobility, transfers, gait, and overall daily tasks due to CVA. Staff will also be monitoring vitals and skin integrity risks due to decreased mobility. Pt will need to be able to increase their activity tolerance and mobility to return to PLOF. Pt is expected to need at least three hours per day, at least five days a week of physical and occupational therapy and will be seen, by social service for discharge planning and coordination of family meetings and by recreational therapy for leisure needs and to increase endurance. Pt has decreased strength, balance, decreased transfers, and decreased gait abilities. They lack safety awareness into their deficits. Status is evolving requiring a moderate complexity PT eval. Handoff given to primary RN. Exit Protocol Followed: Yes Past Medical History: Diagnosis Date Arthritis Back pain CHF (congestive heart failure) (HCC) COPD (chronic obstructive pulmonary disease) (HCC) Coronary artery disease Diabetes mellitus (HCC) Diabetes mellitus, type 2 (HCC) Disease of thyroid gland GERD (gastroesophageal reflux disease) Hernia of abdominal wall Hyperlipidemia Hypertension Myocardial infarction (HCC) Sleep apnea, obstructive refuses to use c-pap Stroke (HCC) Past Surgical History: Procedure Laterality Date CABG AVR W/ MAZE Bilateral 08/12/2021 Procedure: CORONARY ARTERY BYPASS GRAFT TIMES THREE (krueger-lad, svg-d1, svg- drca)WITH ENDOVEIN HARVEST, Aortic valve replacement (27mm Paul [employer] Mediairis), full LA MAZE ([employer] RFA box, RFA HEATHER, cryoRA caval and RAA line), LEFT ATRIAL APPENDAGE LIGATION (40mm AtriCLIP), TRANSESOPHAGEAL ECHOCARDIOGRAM; Surgeon: Luis Beasley MD; Location: [facility]; Service: Cardiothoracic CARDIAC CATHETERIZATION CARDIAC CATHETERIZATION Bilateral 07/01/2021 No intervention, right radial CARDIAC CATHETERIZATION N/A 07/01/2021 Procedure: Coronary Angiogram; Surgeon: Shmuel Villalpando MD; Location[facility]; Service: Cardiovascular CARDIAC CATHETERIZATION N/A 07/01/2021 Procedure: Right Heart Cath; Surgeon: Shmuel Villalpando MD; Location: [facility]; Service: Cardiovascular CARDIAC CATHETERIZATION N/A 07/01/2021 Procedure: Left Ventriculogram; Surgeon: Shmuel Villalpando MD; Location: [facility]; Service: Cardiovascular CARDIAC CATHETERIZATION N/A 07/01/2021 Procedure: Left Heart Cath; Surgeon: Shmuel Villalpando MD; Location: [facility]; Service: Cardiovascular cataracts removed Bilateral CORONARY STENT PLACEMENT EP - INTERVENTION N/A 08/24/2021 Procedure: Cardioversion/CTA; Surgeon: Abhishek Lauren MD; Location: [facility]; Service: Cardiovascular HERNIA REPAIR W/HYDROCELE Right For complete objective data, detailed plan of care and patient education refer to: PT EVALUATION flow sheet, PT TREATMENT flow sheet, patient Plan of Care, Plan of Care progress note, and Patient Education. [id number] Note* Plan of Care - Christin Mendez PT - 01/16/2023 9:33 AM EST [facility] Physical Therapy Notes Problem: Mobility - Impaired Goal: PT- LTG bed mobility Description: PT - Patient will perform bed mobility with modified independence to improve functional mobility and safety. Outcome: Not Addressed Goal: PT- LTG sit to stand transfer Description: PT - Patient will perform sit to/from stand transfer with modified independence to improve functional mobility and safety. Outcome: Not Addressed Goal: PT- LTG stand-pivot transfer Description: PT - Patient will perform stand-pivot transfer with modified independence , supervision with or without appropriate device to improve functional mobility and safety. Outcome: Not Addressed Goal: PT- LTG car transfer Description: PT - Patient will perform car transfer with modified independence , supervision to improve functional mobility and safety. Outcome: Not Addressed Goal: PT- LTG dynamic balance Description: PT - Patient will improve MARSHALL score from 31/56 to >45/56 to improve functional mobility and safety and decrease fall risk. Outcome: Not Addressed Goal: PT- LTG ambulation Description: PT - Patient will ambulate 300 feet with or without appropriate device with modified independence , supervision to improve functional mobility and safety. Outcome: Not Addressed Goal: PT- LTG stair climbing Description: PT - Patient will ascend and descend 7 stairs with reciprocal technique with 2 rails with supervision to improve functional mobility and safety. Outcome: Not Addressed Goal: PT- LTG mobility other Description: PT- Patient will be able to complete TUG in < 12 seconds with supervision/ modifiedindependence with or without appropriate device to decrease fall risk with functional mobility. Outcome: Not Addressed Problem: Impaired Strength Goal: PT- STG strengthening Description: PT - Patient will complete left hip knee ankle home strengthening exercise program independently in preparation for function. Outcome: Not Addressed Problem: Mobility - Impaired Goal: PT- LTG wheelchair management Description: PT - Patient will propel and manage wheelchair 150 feet on even and uneven surfaces with independence to improve functional mobility and safety. Outcome: Not Addressed [id number] Note* Plan of Care - Anisa Luther SLP - 01/16/2023 9:[address] [facility] Speech Language Pathology Notes Problem: Communication - Impaired Goal: ST- STG Expressive- verbal description Description: ST Expressive - Patient will describe object function, pictures, and tasks with 90% accuracy and minimal cues. Outcome: Not Addressed Goal: ST- STG Motor speech- speech intelligibility strategies Description: ST Motor Speech - Patient will use speech intelligibility strategies at conversation level with 90% accuracy and minimal cues. Outcome: Not Addressed Goal: ST- STG Voice- strengthening/breath support Description: ST Voice - Patient will perform breath support exercises for improved functional phonation with 90% accuracy and minimal cues. Outcome: Not Addressed Goal: ST- LTG Motor speech- speech intelligibility strategies Description: ST Motor Speech - Patient will use speech intelligibility strategies at conversation level with no cues. Outcome: Not Addressed Problem: Swallowing - Impaired Goal: ST- STG Oral Swallowing- oral motor function Description: ST Oral Swallowing - Patient will perform oral motor exercises to improve strength, coordination and function of oral musculature x 15 repetitions with minimal cues. Outcome: Not Addressed Goal: ST- STG Oral Swallowing- lingual strength Description: Patient will complete isometric lingual strengthening exercises x 15 repetitions with minimal cues. Outcome: Not Addressed Goal: ST- STG Swallow Strategies/Postures- safe swallowing strategies Description: ST Swallow Strategies/Postures - Patient will demonstrate use of safe swallowing strategies with minimal cues. Outcome: Not Addressed Goal: ST- STG Diet Tolerance- tolerate upgraded solids Description: ST - Diet Tolerance - Patient will tolerate upgrade of solid trials to NDD4 without overt or clinical signs or symptoms of aspiration via clinical assessment. Outcome: Not Addressed Goal: ST- LTG Swallow Strategies/Postures- safe swallowing strategies Description: ST Swallow Strategies/Postures - Patient will tolerate least restrictive diet with no overt signs/symptoms concerning for laryngeal penetration or aspiration or change in pulmonary status. Outcome: Not Addressed Problem: Cognition - Impaired Goal: ST- STG O-Log Description: ST O-Log - Patient will score a 25 or above on two separate administrations of the O-Log. Outcome: Not Addressed Goal: ST- STG Memory- memory strategies Description: ST Memory - Patient will complete memory tasks with the use of memory strategies with 90% accuracy and minimal cues. Outcome: Not Addressed Goal: ST- STG Problem Solving- verbal problem solving Description: ST Problem Solving - Patient will complete basic progressing to complex verbal problemsolving and tasks with 90% accuracy and minimal cues. Outcome: Not Addressed Goal: ST- STG Executive Function- sequencing/organization/planning Description: ST Executive Function - Patient will complete basic sequencing, organizing, and planning tasks with 90% accuracy and minimal cues. Outcome: Not Addressed Problem: Cognition - Impaired Goal: ST- LTG Executive Function- sequencing/organization/planning Description: ST Executive Function - Patient will demonstrate baseline cognitive linguistic abilities to aid in safe return to independence w/ADLs/iADLs and return to prior level of function. Outcome: Not Addressed [id number] Consult note* Anisa Luther SLP - 01/16/2023 8:57 AM EST Speech Pathology Communication / Cognition Eval Note [employer] Time Calculation: Start time: 856 Stop time: 931 Time calculation: 35 [employer]ESSION[employer] Individual Minutes: 35 Discharge Recommendations: Factors for Returning to Prior Level of Function Body Structure and Function: Neurologic impairment Explain Impairments: R MCA CVA Activities and Participation: Communication limitation, Swallowing limitation, Executive function limitation Explain Limitations: dysarthria, dysphagia, cognitive deficits Environmental Factors: Home situation, Family/caregiver support Explain Environmental Factors: lives at home with spouse Skilled Therapy Needs: Are Skilled Therapy Services Needed After Discharge: Yes Functional Limitations: dysphagia, communication deficits, decreased environmental safety awareness, impaired insight Intensity of Skilled Therapy: 2-3 days per week Anticipated Duration of Skilled Therapy: Duration 10 - 30 days Impressions: Kevin White was admitted to [facility] s/p R MCA CVA. Per H&P: Kevin White is a 82 y.o. male witha history of CAD, AFIB s/p cardioversion/MAZE/LA clipping, CHF, IDDM type 2, who presented to [facility] 01/06/2023 from [facility] with left sided weakness and garbled speech, s/p [facility] tPA. Admitted to [facility] & found to have acuteR MCA CVA. . Pt's chief complaints include: decreased strength and slurred speech. an informal speech language cognitive evaluation was completed this date to determine need for skilled speech services while in [facility]. Pt completed O-Log and CLQT+, results are as follows: The Orientation Log (O-Log) is designed to be a quick quantitative measure of orientational status for use at bedside with rehabilitation inpatients. Place, time, and situational (Etiology/Event + Pathology/Deficits) domains are assessed. Patient responses are scored according to the following criteria: 3 = correct spontaneously or upon first free recall attempt; 2 = correct upon logical cueing (e.g., That was yesterday, so today must be ); 1 = correct upon multiple choice or phonemic cuing; and 0 = incorrect despite cueing, inappropriate response, or unable to respond. Patient scored this date with deficits in the areas of city, type of place, month, date, day of the week, and etiologies and was noted to benefit from logical and semantic cues. The Cognitive Linguistic Quick Test (CLQT) was developed for the use with [place] Islander or Luxembourgish speaking adults with aquired neurological dysfunction, ages 18-89. The test is criterion- referenced and yields severity ratings for five cognitive domains, A Total Composite Severity Rating, and a Clock Drawing Severity Rating. All ratings are provided for two age categories: ages 18-69 and 70-89 years. The CLQT quickly assesses the relative status of five cognitive domains. Task Patient's scores Criterion Cut- off scores 70-89 Personal Facts 8 8 Symbol Cancellation 3 10 Confrontation Naming 10 10 Clock Drawing 11 11 Story Retelling 5 Symbol Trails 6 Generative Naming 4 Design Memory 4 Mazes 4 Design Generation 5 Cognitive Domain Ages 70-89 scores: Attention: (Normal range 215-160) Memory: (Normal range 185-141) Executive Function: ( Normal range 40-19) Language: (Normal 37-28) Visuospatial: (Normal 105-62) Clock Drawing: (Normal 13-11) Composite Severity Rating: Composite Severity Rating Range: Unable to complete CLQT+ due to time restraints. Will plan to complete during next treatment session with additional goals added as clinically indicated. Pt presents w/mild-moderate expressive language deficits characterized by dysarthria with imprecisearticulation, low intensity of speech, poor breath support, impairments in sentence completion, andword finding in conversation. Pt presents w/supervision receptive language deficits characterized by impairments with multi step commands, complex yes/no questions, and conversation, however suspect related to conversation vs true receptive aphasia. Pt presents w/moderate cognitive linguistic deficits characterized by impairments in orientation, attention, insight to deficits, memory, sequencing, and organization. Full cognitive evaluation not completed due to time restraints. The documented impairments result in the following functional limitations: ADLS/IADLS, performance while driving, return to driving, communication skills, safety awareness, quality of life, householdchores, increase caregiver support, reduced intelligibility, increase risk of aspiration, and reduced independence. Potential barriers to rehab include: cognitive endurance, cognitive limitations, and reduced insight. The patient would benefit from skilled ST services focused on the above listed impairments and limitations in order to safely progress patient to desired level of function., safely progress patientto desired level of function, to safely eat least restrictive diet without s/s of aspiration or pulmonary compromise and while maintaining adequate nutrition/hydration., improve receptive/expressive language skills for ability to communicate basic needs, wants, and ideas for increased safety, independence, and enjoyment of activities of daily living., and improve speech precision, respiratory support and vocal loudness for improved speech communication skills, and fluency enhancement for improved speech performance for social interaction needs. Oral/Motor: Oral Motor Impression-Severity Scale: Moderate Labial ROM: Reduced left Labial Symmetry at Rest: Abnormal symmetry left Labial Strength: Reduced Lingual ROM: Reduced coordination Lingual Symmetry: Deviates to Right Lingual Strength: Reduced Velum: Within Functional Limits Mandible: Reduced Strength Facial ROM: Reduced left Facial Symmetry at Rest: Left lower paresis, Left upper paresis Facial Sensation: Reduced Left Apraxia: None present Auditory Comprehension: Auditory Comp Impression-Severity Scale: 90-100% (Supervision, Occasional Cues) Commands: Exceptions to WFL One Step Basic Commands: No Impairment Two Step Basic Commands: 90-100% (Supervision, Occasional Assist) Identification Tasks: Within Functional Limits Yes/No Questions: Within Functional Limits Conversational Speech: Exceptions to WFL Simple Conversation: 75-90% (Mild) Hearing: Hard of hearing/hearing concerns Interfering Components: Hearing, Auditory Processing Difficulty Recommended Auditory Comprehension Strategies: Increase your volume, Rephrase, Repeat questions/requests, Allow for increased response time Visual Recognition: Visual Perception: No acute visual changes Reading Comprehension: Reading Comp Impression-Severity: Requires further assessment Expressive Language: Expressive Language Impression-Severity: 90-100% (Supervision, Occasional Cues) Primary Mode of Expression: Verbal Repetition: WFL Automatic Speech: Exceptions to WFL Counting: No Impairment Days of the week: No Impairment Months of the year: 75-90% (Mild) Sentence Completion: Exceptions to WFL Simple sentence completion: 75-90% (Mild) Naming: Exceptions to WFL Confrontational: 90-100% (Supervision, Occasional Assist) Narrative: Exceptions to WFL Conversation: 75-90% (Mild) Written Expression: Written Expression Impression-Severity: Requires further assessment Dominant Hand: Left Interfering Components: Upper extremity mobility limitations Speech Cognition: Speech Cognition Impression-Severity: 50-75% (Moderate) Orientation Level: Oriented to time, Oriented to person Attention: Exceptions to WFL Sustained Attention: 75-90% (Mild) Selective Attention: 75-90% (Mild) Memory: Unable to assess Verbal Problem Solving: Exceptions to WFL Simple Functional Tasks: 50-75% (Moderate) Verbal Reasoning Skills: 50-75% (Moderate) Safety/Judgement: Exceptions to WFL Behavioral Observations: fall risk Insight: Decreased awareness of impairment, Decreased insight into impact of injury/deficits Task Initiation: Delayed initiation Flexibility of Thought: Reduced flexibility Auditory Processing Difficulty: Min delay, Mod delay Pragmatics: No overt deficits Recommended general cognitive strategies: Limit background environmental noise, Gain and re-gain attention, Allow for increased response time, Repeat questions/requests, Clear/concise statements Prior Level of Function: Prior Function Reason for Referral: Stroke / neuro Primary Language: [place] Islander Employment Status: Retired Education Level: High school grad or equivalent Living Situation: With others Prior Speech Deficit: Dysarthria, Prior Speech Therapy services (from acute care) Prior Language Deficit: Word-finding, Per patient report, Prior Speech Therapy services (from acute) Prior Cognitive Deficit: Suspected cognitive deficits, Prior Speech Therapy services (from acute) Other pertinent diagnoses affecting cog/comm/voice: CVA QI CARE Score - Eatin CARE Score - Oral Hygiene: 4 Past Medical History: Diagnosis Date Arthritis Back pain CHF (congestive heart failure) (HCC) COPD (chronic obstructive pulmonary disease) (HCC) Coronary artery disease Diabetes mellitus (HCC) Diabetes mellitus, type 2 (HCC) Disease of thyroid gland GERD (gastroesophageal reflux disease) Hernia of abdominal wall Hyperlipidemia Hypertension Myocardial infarction (HCC) Sleep apnea, obstructive refuses to use c-pap Stroke (HCC) Past Surgical History: Procedure Laterality Date CABG AVR W/ MAZE Bilateral 08/12/2021 Procedure: CORONARY ARTERY BYPASS GRAFT TIMES THREE (krueger-lad, svg-d1, svg- drca)WITH ENDOVEIN HARVEST, Aortic valve replacement (27mm Paul Inspiris), full LA MAZE (Encompass RFA box, RFA HEATHER, cryoRA caval and RAA line), LEFT ATRIAL APPENDAGE LIGATION (40mm AtriCLIP), TRANSESOPHAGEAL ECHOCARDIOGRAM; Surgeon: Luis Beasley MD; Location: [facility] NEURO OR; Service: Cardiothoracic CARDIAC CATHETERIZATION CARDIAC CATHETERIZATION Bilateral 07/01/2021 No intervention, right radial CARDIAC CATHETERIZATION N/A 07/01/2021 Procedure: Coronary Angiogram; Surgeon: Shmuel Villalpando MD; Location: [facility]; Service: Cardiovascular CARDIAC CATHETERIZATION N/A 07/01/2021 Procedure: Right Heart Cath; Surgeon: Shmuel Villalpando MD; Location: [facility]; Service: Cardiovascular CARDIAC CATHETERIZATION N/A 07/01/2021 Procedure: Left Ventriculogram; Surgeon: Shmuel Villalpando MD; Location: [facility]; Service: Cardiovascular CARDIAC CATHETERIZATION N/A 07/01/2021 Procedure: Left Heart Cath; Surgeon: Shmuel Villalpando MD; Location: [facility]; Service: Cardiovascular cataracts removed Bilateral CORONARY STENT PLACEMENT EP - INTERVENTION N/A 08/24/2021 Procedure: Cardioversion/CTA; Surgeon: Abhishek Lauren MD; Location: [facility] EP LAB; Service: Cardiovascular HERNIA REPAIR W/HYDROCELE Right For complete objective data, detailed plan of care, and education refer to: Speech Comm/Cog Eval flow sheet, as well as patient Plan of Care and Education documentation. This note stands as the current Discharge Summary upon patient discharge from the hospital or completion of Speech Pathology Plan of Care [id number] Consult note* Anisa Luther SLP - 01/16/2023 8:32 AM EST Speech Pathology Bedside Swallow Evaluation [employer] Time Calculation: Start time: 08 Stop time: 08 Time calculation: 25 [employer] PROFESSIONAL Individual Minutes: 25 min Recommendations: PO Recommendations: NDD diet NDD diet recommendation: Chopped/ NDD3, chopped meats, Thin liquids Compensatory Strategies: Eat/feed slowly, Alternate solids and liquids, Check for pocketing of foodon the left, Lingual sweep Postures: Sit as upright as possible for all oral intake Food Presentation: Small bites Liquid Presentation: Average sips Medication Presentation: Whole with thins, Whole in puree, Per Patient Preference Amount of Supervision: Nursing staff supervision, Set up assistance with tray Treatment Techniques: Train swallowing strategies Further Recommendations: Oral care TID, Assess for diet tolerance, Assess for diet upgrade Discharge Recommendations: Skilled Therapy Needs: Are Skilled Therapy Services Needed After Discharge: Yes Functional Limitations: dysphagia, communication deficits, decreased environmental safety awareness, impaired insight Intensity of Skilled Therapy: 2-3 days per week Anticipated Duration of Skilled Therapy: Duration 10 - 30 days Prior Function: Reason for Referral: Stroke / neuro Prior Swallow Deficit: Per chart review (pt seen on acute) Swallow Complaint: Pocketing food (pt endorses continued L sided weakness) Previous instrumental date: 01/06/23 Previous BSE date : 01/06/23 Other Pertinent Diagnoses Affecting Swallow: CVA Diet Prior to BSE: Chopped/mechanical, Thin liquid Primary Language: [place]er Baseline Assessment: Subjective Impression: Alert, Cooperative, Pleasant Mood Respiratory Status: Room air Dentition: Permanent, Some missing teeth Self-Feeding Barriers: Functional for self-feeding Patient Positioning: Upright in chair Volitional Cough: Strong Baseline Cough: Dry Secretion Management: Adequate Volitional Swallow: Present Oral Motor: Oral Motor Impression-Severity Scale: Moderate Labial ROM: Reduced left Labial Symmetry at Rest: Abnormal symmetry left Labial Strength: Reduced Lingual ROM: Reduced coordination Lingual Symmetry: Deviates to Right Lingual Strength: Reduced Velum: Within Functional Limits Mandible: Reduced Strength Facial ROM: Reduced left Facial Symmetry at Rest: Left lower paresis, Left upper paresis Facial Sensation: Reduced Left Apraxia: None present Voice: Breath Support: WFL Vocal Quality: Weak Vocal Intensity: Mildly decreased, Moderately decreased Consistencies Assessed: CONSISTENCY PRESENTATION ORAL (SIGNS / SYMPTOMS) PHARYNGEAL (SIGNS / SYMPTOMS) ICE THIN Cup, Self Fed, Continuous drinks Spillage Left (no overt signs/symptoms concerning for laryngeal penetration/aspiration) NECTAR HONEY PUREE Self fed, Spoon Spillage Left (no overt signs/symptoms concerning for laryngeal penetration/aspiration) SOFT Self Fed Pocketing Left, Increased Anterior to Posterior Transit, Poor bolus formation (no overt signs/symptoms concerning for laryngeal penetration/aspiration) SOLID Per chart review, Kevin White is a 82 y.o. male with a history of CAD, AFIB s/p cardioversion/MAZE/LA clipping, CHF, IDDM type 2, who presented to [facility] 01/06/2023 from [facility] with left sided weakness and garbled speech, s/p [facility] tPA. Admitted to [facility] & found to have acute R MCA CVA. Kevin White presents with known oropharyngeal dysphagia per MBS completed 01/06/23 which revealedsilent aspiration of thin liquids with continuous cup sip. Pt continues to endorse difficulty with mastication and pocketing on left. He does recall lingual sweep to ensure complete clearance. Pt additionally endorsing anterior loss of bolus on L. [facility] Pt seen with breakfast tray this date. He accepted po trials of thin liquids via single and consecutive cup sip with no overt signs/symptoms concerning for laryngeal penetration or aspiration, however unable to rule out silent aspiration seen on imaging. Pt accepted po trials of puree with adequate oral transit and clearance. Pt noted with L pocketing with trials of soft solids, however independently utilized lingual sweep and liquid wash to clear. Pt with anterior loss of bolus on L with all trials. Given above, recommend continuing with chopped solids, thin liquids, and medications perpt preference (preferred with applesauce on date of evaluation). Pt does benefit from cues to slow down and single sips. Impressions-Severity Level: Oral Severity Scale: Mild, Moderate Pharyngeal Severity Scale: (known impairments from MBS completed 01/06) Factors for Returning to PLOF: Body Structure and Function: Neurologic impairment Explain Impairments: R MCA CVA Activities and Participation: Communication limitation, Swallowing limitation, Executive function limitation Explain Limitations: dysarthria, dysphagia, cognitive deficits Environmental Factors: Home situation, Family/caregiver support Explain Environmental Factors: lives at home with spouse Speech Plan: Role of ST Discussed: With patient Risk/Benefits of ST Discussed: With patient Patient Goal for Treatment: To go home Rehab Potential: Good For complete objective data, detailed plan of care, and education refer to: Speech Bedside Swallow Evaluation flow sheet, as well as patient Plan of Care and Education documentation. This note stands as the current Discharge Summary upon patient discharge from the hospital or completion of Speech Pathology Plan of Care. [id number] Note* Plan of Care - Destin Christiansen OT - 01/16/2023 7:34 AM EST [facility] Occupational Therapy Notes Problem: Self-care Deficit Goal: OT- LTG feeding Description: OT - Patient will complete self-feeding with modified independence to improve self care function. Outcome: Not Met Goal: OT- LTG grooming Description: OT - Patient will complete grooming standing at the sink with modified independence toimprove self care function. Outcome: Not Met Goal: OT- LTG UB dressing Description: OT - Patient will complete UB/LB dressing, which would include gathering clothing fromcloset, with modified independence to improve self care function. Outcome: Not Met Goal: OT- LTG UB bathing Description: OT - Patient will complete UB/LB showering with modified independence to improve self care function. Outcome: Not Met Goal: OT- LTG home management Description: OT - Patient will tolerate at least 8-10 minutes of static standing to complete home management with modified independence to improve self care function. Outcome: Not Met Problem: Mobility - Impaired Goal: OT- LTG toilet transfer Description: OT - Patient will complete toileting and toilet transfer with modified independence inpreparation for ADL's. Outcome: Not Met Goal: OT- LTG tub transfer Description: OT - Patient will complete shower transfer with modified independence in preparation for ADL's. Outcome: Not Met Problem: Impaired Strength Goal: OT- LTG Strength Other Description: OT- Patient will tolerate at least 5-8 minutes of sustained UB AROM/ strengthening therapeutic exercises seated/standing to improve functional strength for safe DME management and ADL performance. Outcome: Not Met Problem: Cognition - Impaired Goal: OT- LTG sequencing Description: OT - Patient will sequence 3 or more step task with modified independence in preparation for ADL's. Outcome: Not Met Problem: Impaired Neurologic Function Goal: OT- LTG dynamic sitting balance Description: OT - Patient will complete sustained dynamic sitting balance activity for at least 15 minutes with modified independence in preparation for ADL's. Outcome: Not Met Goal: OT- LTG dynamic standing balance Description: OT - Patient will tolerate at least 8-10 minutes of sustained dynamic standing/functional mobility while engaged in ADL/therapeutic activities/exercises with modified independence in preparation for ADL's. Outcome: Not Met Goal: OT- LTG in-hand manipulation/coordination Description: OT - Patient will participate in various neuromuscular reeducation/therapeutic activity/exercises to improve bimanual coordination which would include reaction time and functional strength to improve efficiency with ADL performance as evidenced by at least making 10% improvement in hand function outcome measures. Outcome: Not Met [id number] Consult note* Destin Christiansen OT - 01/16/2023 7:30 AM EST OCCUPATIONAL THERAPY EVALUATION NOTE OT Time Calculation: Start time: 07:30 Stop time: 08:30 Time calculation: 60 OT Individual Minutes: 60 min Problem List / Diagnosis Patient Active Problem List Diagnosis Hypertension Hyperlipidemia CAD (coronary artery disease) Type 2 diabetes mellitus without complication, without long-term current use of insulin (HCC) Atrial fibrillation ([facility]) NAJMA (obstructive sleep apnea) COVID-19 Nonrheumatic aortic valve stenosis Aortic stenosis, severe A-fib ([facility]) Ischemic stroke ([facility]) Acute cerebrovascular accident (CVA) ([facility]) Occupational Therapy Assessment The patient presents with neurological impairment(s) in generalized debility left upper extremity which create performance deficits including strength, balance, dexterity, coordination, and activity tolerance, initiation, problem solving, sequencing, attention, insight, and safety, and knowledge deficit. These performance impairments limit participation in feeding, grooming, UE dressing, LE dressing, bathing, toileting, medication management, home management, and functional mobility in the chosen occupational roles of premorbid level individual, parent, and spouse. The patient's co morbidities do affect patient performance in the above activities and roles. 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 The patient's awareness of own capacity and performance is a barrier to return to prior level of function. During the assessment, minimal to moderate modification of task was required and several treatment options were identified in the plan of care. This consultation required extensive review of the medical and therapy history. Therapy Precautions Orthotic Devices: No Weight Bearing Status: WFL General Rehab Precautions: Fall risk (aspiration) UE Functioning RUE Assessment RUE Assessment: Exceptions to WFL RUE Strength RUE Overall Strength: 4+/5 LUE Assessment LUE Assessment: Exceptions to WFL LUE Strength LUE Overall Strength: 4/5 Vision Vision-Basic Assessment Current Vision: (Would benefit from further screening of functional vision due to observable behaviors suggestive of potential VFD.) Coordination Coordination RUE Assessment: (Benefiting from additional time for bimanual coordination task.) LUE Assessment: (Mild periods of decreased coordination on left side compared to right.) Box and Blocks Test: R: 50 completions (37% IMP), L: 39 completions (36% IMP); Nine Hole Peg Test: R: 33 seconds (28% IMP), L: 41 seconds (58% IMP.) Cognition Arousal/Alertness: Appropriate responses to stimuli Orientation Level: Oriented X4 Executive functioning: Insight, Sequencing, Planning / Organizing, Min impairment Safety Judgment: Decreased awareness of need for safety, Decreased awareness of need for assistance Problem Solving: Assistance required to identify errors made Attention: Attends to quiet environment Hearing Status: WFL Social Interaction: Dysarthric, Flat affect, Cooperative Comments: Patient pleasant and controlled throughout the session. Acute care documentation from OT reported periods of tearfulness during treatment sessions, but patient did not display this behaviorduring this OT evaluation. Patient benefited from min verbal cues for problem solving and location of ADL items to complete showering and dressing as well as for initiation of task. ADL Feeding: Set-up Grooming: Set-up, Stand by assist (Benefiting from verbal cues to locate items.) Upper Body Bathing: Stand by assist Lower Body Bathing: Stand by assist (Patient incontinent of bowel during showering. Nursing informed.) Upper Body Dressing: Stand by assist (Increased difficulty with managing buttons. Moderate verbal cues for sequencing of task and initiation of task.) Lower Body Dressing: Stand by assist, Increased time to complete (SBA while standing to manage clothing.) Toileting: Stand by assist (Verbal cues for hygiene.) Functional Mobility: Contact guard assist IADL Bed Mobility Rolling: Modified independent Supine to Sit: Stand by assist, Head of bed flat Functional Transfers Sit to Stand: Contact guard assist Bed to Chair Transfers: Contact guard assist (Periods of instability with direction changes.) Toilet Transfers: Contact guard assist (Periods of instability with direction changes.) Shower Transfers: Contact guard assist Documentation Nurse: (Perform functional mobility without AD) Exercise Interventions Home Living Obtained Home Living and PLOF info from: Patient, Review of patient s medical record Unable to obtain Home Living and PLOF info on initial eval: Patient is a questionable historian Lives With: Spouse, Son (son works 5 days a week and is unable to assist pt when working. pt reports in good health and can assist pt with needs after discharge.) Type of Home: House Home Layout: One level, Full bath on main level, Bed on main level, Stairs between floors, Work area in basement (laundry on main. house has basement and 1st floor. 1/2 bath in basement) Rails on inside stairs: 1 rail Number of stairs inside home: 7 Steps to enter home: Yes Rails to enter home: 2 rails Number of stairs to enter home: 5 Bathroom Shower/Tub: Walk-in shower, Main level Bathroom Toilet: Standard Bathroom Equipment: Grab bars in shower, Shower chair, Hand-held showerhead, Grab bars around toilet Bathroom Accessibility: Accessible via walker Mobility Equipment: Wheeled walker Additional Objective Details - Home Living: Pt reports that he likes to make lots of things in the basement ( model cars/trucks/semi's). Pt with expressive aphasia. Pt inconsistant with responses provided during PT evaluation versus previous consult. Pt is questionable historian. Prior Level of Function Receives Help From: Spouse, Family Level of Bishop - Transfers/Ambulation/Mobility: Independent with community ambulation Level of Bishop - ADLs: Independent Level of Bishop - Homemaking: Independent Driving: Patient drives Vocational: Retired Leisure: Patient enjoys word searches, crossword's, and is a consistent churchgoer. Subjective Impression - Prior Function: Prior to this incident, patient was independent with all BADLs/IADLs. The patient stated that his son works from home and would be available to help during theday if needed. Patient had a significant cardiac event in February of this year, but comments that he was able to recover to independent ADL status. Occupational Therapy Goals Problem: Self-care Deficit Goal: OT- LTG feeding Description: OT - Patient will complete self-feeding with modified independence to improve self care function. Outcome: Not Met Goal: OT- LTG grooming Description: OT - Patient will complete grooming standing at the sink with modified independence toimprove self care function. Outcome: Not Met Goal: OT- LTG UB dressing Description: OT - Patient will complete UB/LB dressing, which would include gathering clothing fromcloset, with modified independence to improve self care function. Outcome: Not Met Goal: OT- LTG UB bathing Description: OT - Patient will complete UB/LB showering with modified independence to improve self care function. Outcome: Not Met Goal: OT- LTG home management Description: OT - Patient will tolerate at least 8-10 minutes of static standing to complete home management with modified independence to improve self care function. Outcome: Not Met Problem: Mobility - Impaired Goal: OT- LTG toilet transfer Description: OT - Patient will complete toileting and toilet transfer with modified independence inpreparation for ADL's. Outcome: Not Met Goal: OT- LTG tub transfer Description: OT - Patient will complete shower transfer with modified independence in preparation for ADL's. Outcome: Not Met Problem: Impaired Strength Goal: OT- LTG Strength Other Description: OT- Patient will tolerate at least 5-8 minutes of sustained UB AROM/ strengthening therapeutic exercises seated/standing to improve functional strength for safe DME management and ADL performance. Outcome: Not Met Problem: Cognition - Impaired Goal: OT- LTG sequencing Description: OT - Patient will sequence 3 or more step task with modified independence in preparation for ADL's. Outcome: Not Met Problem: Impaired Neurologic Function Goal: OT- LTG dynamic sitting balance Description: OT - Patient will complete sustained dynamic sitting balance activity for at least 15 minutes with modified independence in preparation for ADL's. Outcome: Not Met Goal: OT- LTG dynamic standing balance Description: OT - Patient will tolerate at least 8-10 minutes of sustained dynamic standing/functional mobility while engaged in ADL/therapeutic activities/exercises with modified independence in preparation for ADL's. Outcome: Not Met Goal: OT- LTG in-hand manipulation/coordination Description: OT - Patient will participate in various neuromuscular reeducation/therapeutic activity/exercises to improve bimanual coordination which would include reaction time and functional strength to improve efficiency with ADL performance as evidenced by at least making 10% improvement in hand function outcome measures. Outcome: Not Met Justification of Medical Necessity and Intensity of Service: Pt would benefit from skilled OT services in this inpatient rehabilitation facility with a multidisciplinary team approach to address the above-listed deficits/education needs in order to maximize independence with ADLs/IADLs upon discharge home. Pt wants to return home with family assist and has good potential for success in this environment to increase independence, safety, and quality of life after participating in intense OT. Signs and symptoms of abuse / neglect: No Describe: Past Medical History: Diagnosis Date Arthritis Back pain CHF (congestive heart failure) (HCC) COPD (chronic obstructive pulmonary disease) (HCC) Coronary artery disease Diabetes mellitus (HCC) Diabetes mellitus, type 2 (HCC) Disease of thyroid gland GERD (gastroesophageal reflux disease) Hernia of abdominal wall Hyperlipidemia Hypertension Myocardial infarction (HCC) Sleep apnea, obstructive refuses to use c-pap Stroke (HCC) Past Surgical History: Procedure Laterality Date CABG AVR W/ MAZE Bilateral 08/12/2021 Procedure: CORONARY ARTERY BYPASS GRAFT TIMES THREE (krueger-lad, svg-d1, svg- drca)WITH ENDOVEIN HARVEST, Aortic valve replacement (27mm Paul [employer] Mediair[employer]), full LA MAZE (Encompass RFA box, RFA HEATHER, cryoRA caval and RAA line), LEFT ATRIAL APPENDAGE LIGATION (40mm AtriCLIP), TRANSESOPHAGEAL ECHOCARDIOGRAM; Surgeon: Luis Beasley MD; Location: [facility]; Service: Cardiothoracic CARDIAC CATHETERIZATION CARDIAC CATHETERIZATION Bilateral 07/01/2021 No intervention, right radial CARDIAC CATHETERIZATION N/A 07/01/2021 Procedure: Coronary Angiogram; Surgeon: Shmuel Villalpando MD; [facility]; Service: Cardiovascular CARDIAC CATHETERIZATION N/A 07/01/2021 Procedure: Right Heart Cath; Surgeon: Shmuel Villalpando MD; Location: [facility]; Service: Cardiovascular CARDIAC CATHETERIZATION N/A 07/01/2021 Procedure: Left Ventriculogram; Surgeon: Shmuel Villalpando MD; Location: [facility]; Service: Cardiovascular CARDIAC CATHETERIZATION N/A 07/01/2021 Procedure: Left Heart Cath; Surgeon: Shmuel Villalpando MD; Location: [facility]; Service: Cardiovascular cataracts removed Bilateral CORONARY STENT PLACEMENT EP - INTERVENTION N/A 08/24/2021 Procedure: Cardioversion/CTA; Surgeon: Abhishek Lauren MD; Location: [facility] EP [facility]; Service: Cardiovascular HERNIA REPAIR W/HYDROCELE Right Handoff given to primary RN. Exit Protocol Followed: Yes For complete objective data, detailed plan of care and patient education refer to: OT EVALUATION flow sheet, OT TREATMENT flow sheet, patient Plan of Care, Plan of Care progress note, and Patient Education. [id number] History and physical note* Shahrzad Odom DO - 01/15/2023 10:22 PM EST HISTORY & PHYSICAL Physical Medicine & Rehabilitation [facility] Acute Inpatient Rehabilitation H&P 01/18/2023 Patient Name: Kevin White Date of : 1940 (82 y.o.) Primary Care Physician: Moi Gibson MD Date of Admission: 01/15/2023 Assessment & Plan Debility 2/2 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 -01/06 VIANEY: normal EF 59%, well-seated AVR, LA dilation. -01/07 CTH: evolution of acute R MCA CVA with petechial hemorrhage -LDL 66, A1c 6.6 -Neurology followed on medical floor -Started ASA and transitioned to eliquis 01/11/23 -Transferred to [facility] on 01/15/23 -Atorvastatin 40mg daily -Eliquis 5mg BID -Initiate comprehensive rehab plan to include PT/OT/ACADEMIC SERVICES PROFESSIONAL Situational depression -01/15 Started Prozac 20mg daily titrate as tolerated Dysphagia -Chopped/ NDD3, chopped meats, Thin liquids -MBS when appropriate -Speech following Oral candidiasis -Nystatin swish and swallow Chronic HFpEF CAD s/p CABG x3 (07/2021) Hypertension A. Fibrillation s/p cardioversion/MAZE/LA clipping -Norvasc 10mg daily -Eliquis 5mg BID -Tikosyn 250mcg q12 -Lasix 20mg daily -Lisinopril 10mg daily Hyperlipidemia -Home med: Crestor 20mg daily -Atorvastatin 40mg daily Hypothyroidism -Levothyroxine 175mcg daily Type 2 DM with hyperglycemia -Home med: Glucophage XR 500mg BID -A1c 6.6 -Carb controlled diet -Accuchecks QID -Insulin SSI for coverage AJAY on CKD -Unclear stage. Admission on medical floor C 1.4 ->0.9 -01/14 Cr 1.6. s/p gentle hydration -Continue to monitor Thrombocytopenia -Baseline plts low-normal ~150 -01/07 Plts 91 -Bleeding risk Pain management -PRN Tylenol Bladder BPH -Admission UA/cx -Bladder scans and ISC if indicated -Flomax 0.4mg daily Bowels -Monitor for regular BMS -Senna-s 1 tab BID -Miralax daily H/o NAJMA -Refuses CPAP DVT prophylaxis -Eliquis 5mg BID GI prophylaxis GERD -Home med: Nexium 40mg daily -Protonix 40mg daily Nutrition -Mag Ox 400mg daily -B-12 1000mcg daily -MVI daily Obesity -BMI: 31.69 -Encourage diet modification, active lifestyle, and weight reduction. Discharge Barriers: Mobility, ADL, Self Care Impairment: Intensive PT/OT Decreased Endurance: Intensive PT/OT Skin: Turn every 2 hours, monitor for skin breakdown per rehabilitation nursing Nutritional Status: Nutrition Consult Pulmonary Rehabilitation: Encourage incentives spirometry and deep breathing exercises Left Hemiparesis: Intensive PT/OT Dysphagia, Dysarthria, Aphasia, and Cognitive Deficits: Speech evaluation Diet - The patient is asked to make an attempt to improve diet and exercise patterns to aid in medical management of this problem. DVT prophylaxis - Eliquis Precautions - fall, aspiration Follow-ups - Stroke Prevention Clinic - PCP Consulted internal medicine to monitor co-morbidities during rehab. Patient requires frequent management by consulting physicians not available in a lower level of care and frequent lab monitoring. On admission, I (inpatient rehabilitation facility physician) completed the medication reconciliation, and no issues were found. Description of Current Medical Status: Medical/Functional Exam: Please see below Rehabilitation Diagnosis: As above Current & Prior Comorbid Conditions: Please see problem list above Current and Prior Level of Function: Please see below Status Compared to Pre-Admission: There are no clinically significant differences between the patient's current medical and functional status as documented in the preadmission screen. Please see current functional status and hospital course/medical management. Treatment Plan: Disciplines Required: Physical Therapy, Occupational Therapy, Speech Therapy, Case Management/Social Work, and Nursing Specialized in Rehabilitation Intensity of Services: At least 3 hours per day, 5 days a week Functional Goals: improve independence with regard to mobility, ADLs, cognition, communication, andswallowing Medical Goals: Medically stable for home discharge Special/Safety Considerations: Fall risk and Bleeding precautions There are no special or safety considerations that would likely preclude immediate implementation of an intensive rehabilitation program (intensity as stated above) or substantially influence plan ofcare. Risk of Complications: Patient is High Risk For: Falls, Skin breakdown, Dehydration and malnourishment, Atelectasis, Bleeding, Constipation/ileus, Urinary retention with acute kidney injury, Hypotension/hypertension, DVT/PE, and Cardiac Event Discharge Barriers: Functional deficits and medical stability Patient requires medical monitoring and management of comorbidities and/or hospital complications Patient requires Nursing Specialized in Rehabilitation to Monitor: Bowel and Bladder Care, Neurologic Assessment, and Frequent Pain or Palliative Assessment Psychosocial Considerations: Safe home discharge plan Attestation: Considering all of the information above, it is my best judgment that this patient requires an intensive rehabilitation multidisciplinary program as previously described due to the necessity of medical management, rehabilitation needs, and complexity of nursing care under the supervision of a rehabilitation physician (patient requires at least 3 rehab physician visits per week). It can be reasonably expected that patient will participate in and benefit from a multidisciplinary team approach to maximize functional independence that is best served with acute inpatient rehabilitation as opposed to lower level of care. The teams needed are: Rehabilitation Nursing for medication management, bowel/bladder care, skin care, and respiratory care Physical Therapy for strengthening, endurance, mobility, gait and balance training, ROM, ADL's, andpatient/family training Occupational Therapy for strengthening, endurance, mobility, gait and balance training, ROM, ADL's,and patient/family training Speech Therapy for cognition, swallow evaluation and therapy, and communication Social Work for integrated social support and discharge planning Estimated Length of Stay: 10-14 days Discharge Destination: home Rehab Prognosis: Good Chief Complaint Weakness History of Present Illness Date of Admission: 01/15/2023 Informant(s): Patient, Care Team / Chart History of Present Illness: Kevin White is a 82 y.o. male with PMH of CAD, AFIB s/p cardioversion/MAZE/LA clipping, CHF, IDDM type 2, who presented to [facility] on 01/06/2023 from [facility] with left sided weakness and garbled speech, s/p OLH tPA. Admitted to [facility] & found to have acute R MCA CVA. 01/06 CTA H/N: distal R MCA occlusion s/p TPA. CT brain perfusion after TPA with improved perfusion, noted hypoplastic L V4. 12/17 2 VIANEY: normal EF 59%, well-seated AVR, LA dilation. 01/07 CTH: evolution of acute R MCA CVA with petechial hemorrhage. LDL 66, A1c 6.6 . Speech followed pt and rec Chopped/ NDD3, chopped meats, Thin liquids. Noted to have AJAY on CKD. Unclear stage. Admission on medical floor C 1.4 ->0.9.01/14 Cr1.6. s/p gentle hydration. Started ASA and transitioned to eliquis 01/11/23. Seen by PT, OT, Speechwho recommended IPR level rehab. Transferred to [facility] on 01/15/23 PT reports doing well. +Dysarthria but intelligible. Denies RAMSEY, change in vision, CP, SOB, N/V. He became tearful discussing deficits from CVA. Reports having a difficult time sleeping. Eating fair. Review of Systems General: - fever, - chills HEENT: - headache, - vision changes Resp: - shortness of breath, - cough Cardiac: - chest pain, - leg swelling GI: - constipation, - nausea : - urinary retention, - urinary incontinence MSK: - joint pain, - joint swelling Neuro: - confusion,+weakness Psychological: - depression, - anxiety Skin: - rashes, - wounds Allergies I have reviewed the patient's allergies. Patient has no known allergies. Medications I have reviewed the patient's medication list and performed a complete reconciliation. Home Medications: Prior to Admission medications Medication Sig Start Date End Date Taking? Authorizing Provider amLODIPine (NORVASC) 10 MG tablet Take 1 (one) tablet (10 mg total) by mouth daily . 01/08/23 02/07/23 Elier Mejia MD apixaban (ELIQUIS) 5 mg Tab Take 1 (one) tablet (5 mg total) by mouth 2 (two) times a day . 01/08/23 Elier Mejia MD cyanocobalamin (B-12) 1000 MCG tablet Take 1 (one) tablet (1,000 mcg total) by mouth daily . Anastacia Randle MD dofetilide (TIKOSYN) 250 MCG capsule Take 1 (one) capsule (250 mcg total) by mouth every 12 (twelve) hours . 01/05/23 Ira Ricci CNP esomeprazole (NEXIUM) 40 MG capsule Take 1 (one) capsule (40 mg total) by mouth every morning before breakfast . Anastacia Randle MD furosemide (LASIX) 20 MG tablet Take 1 (one) tablet (20 mg total) by mouth daily . 01/15/23 Sarah Mabry DO levothyroxine (SYNTHROID, LEVOTHROID) 175 MCG tablet Take 1 (one) tablet (175 mcg total) by mouth daily . Anastacia Randle MD lisinopriL (PRINIVIL,ZESTRIL) 10 MG tablet Take 1 (one) tablet (10 mg total) by mouth daily with lunch Start: 08/25/21. 08/25/21 Mary Monaco CNP magnesium oxide (MAG-OX) 400 mg (241.3 mg magnesium) tablet Take 1 (one) tablet (400 mg total) by mouth daily Start: 01/09/23. 01/09/23 02/08/23 Elier Mejia MD metFORMIN (GLUCOPHAGE-XR) 500 MG 24 hr tablet Take 1 (one) tablet (500 mg total) by mouth 2 (two) times a day . Anastacia Randle MD potassium chloride SA (K-DUR,KLOR-CON) 20 MEQ tablet Take 1 (one) tablet (20 mEq total) by mouth daily . 01/15/23 Sarah Mabry DO rosuvastatin (CRESTOR) 20 MG tablet Take 1 (one) tablet (20 mg total) by mouth nightly . Anastacia Randle MD tamsulosin (FLOMAX) 0.4 mg capsule Take 1 (one) capsule (0.4 mg total) by mouth daily . Anastacia Randle MD therapeutic multivitamin (THERAGRAN) tablet Take 1 (one) tablet by mouth daily . Anastacia Randle MD traZODone (DESYREL) 50 MG tablet Take 0.5 (one-half) tablet (25 mg total) by mouth nightly as needed . Aanstacia Randle MD aspirin 81 MG EC tablet Take 1 (one) tablet (81 mg total) by mouth daily for 2 doses Start: 01/09/23. 01/09/23 01/15/23 Elier Mejia MD atorvastatin (LIPITOR) 40 MG tablet Take 1 (one) tablet (40 mg total) by mouth nightly . 01/08/23 01/15/23 Elier Mejia MD furosemide (LASIX) 20 MG tablet Take 2 (two) tablets (40 mg total) by mouth daily . 09/25/21 01/15/23Ira Meyers CNP insulin glargine (Lantus Solostar U-100 Insulin) 100 unit/mL (3 mL) InPn Inject 5 (five) Units under the skin nightly . 01/08/23 01/15/23 Elier Mejia MD potassium chloride SA (K-DUR,KLOR-CON) 20 MEQ tablet Take 1 (one) tablet (20 mEq total) by mouth daily . 09/25/21 01/15/23 Ira Meyers CNP Current HOSPITAL Medications: Scheduled Meds: Continuous Infusions: PRN Meds: Past Medical History Past Medical History: Diagnosis Date Arthritis Back pain CHF (congestive heart failure) (HCC) COPD (chronic obstructive pulmonary disease) (HCC) Coronary artery disease Diabetes mellitus (HCC) Diabetes mellitus, type 2 (HCC) Disease of thyroid gland GERD (gastroesophageal reflux disease) Hernia of abdominal wall Hyperlipidemia Hypertension Myocardial infarction (HCC) Sleep apnea, obstructive refuses to use c-pap Stroke (HCC) Past Surgical History Past Surgical History: Procedure Laterality Date CABG AVR W/ MAZE Bilateral 08/12/2021 Procedure: CORONARY ARTERY BYPASS GRAFT TIMES THREE (krueger-lad, svg-d1, svg- drca)WITH ENDOVEIN HARVEST, Aortic valve replacement (27mm Paul Inspiris), full LA MAZE (Encompass RFA box, RFA HEATHER, cryoRA caval and RAA line), LEFT ATRIAL APPENDAGE LIGATION (40mm AtriCLIP), TRANSESOPHAGEAL ECHOCARDIOGRAM; Surgeon: Luis Beasley MD; Location: [facility]; Service: Cardiothoracic CARDIAC CATHETERIZATION CARDIAC CATHETERIZATION Bilateral 07/01/2021 No intervention, right radial CARDIAC CATHETERIZATION N/A 07/01/2021 Procedure: Coronary Angiogram; Surgeon: Shmuel Villalpando MD; Location: [facility]; Service: Cardiovascular CARDIAC CATHETERIZATION N/A 07/01/2021 Procedure: Right Heart Cath; Surgeon: Shmuel Villalpando MD; Location: [facility]; Service: Cardiovascular CARDIAC CATHETERIZATION N/A 07/01/2021 Procedure: Left Ventriculogram; Surgeon: Shmuel Villalpando MD; Location: [facility]; Service: Cardiovascular CARDIAC CATHETERIZATION N/A 07/01/2021 Procedure: Left Heart Cath; Surgeon: Shmuel Villalpando MD; Location: [facility]; Service: Cardiovascular cataracts removed Bilateral CORONARY STENT PLACEMENT EP - INTERVENTION N/A 08/24/2021 Procedure: Cardioversion/CTA; Surgeon: Abhishek Lauren MD; Location: [facility]; Service: Cardiovascular HERNIA REPAIR W/HYDROCELE Right Family History Family History Problem Relation Age of Onset Heart disease Father Social History Social History: Home Living Obtained Home Living and PLOF info from: Patient Lives With: Spouse Type of Home: House Home Layout: Two level, Bed and full bath upstairs, 1/2 bath on main level Steps to enter home: Yes Rails to enter home: 2 rails Number of stairs to enter home: 5 Bathroom Shower/Tub: Walk-in shower Bathroom Toilet: Standard Bathroom Equipment: Shower chair, Grab bars in shower Mobility Equipment: Wheeled walker, Cane Additional Objective Details - Home Livin) AD used at baseline Prior Level of Function Level of Bishop - Transfers/Ambulation/Mobility: Independent with functional transfers, Independent with household ambulation, Independent with community ambulation Level of Bishop - ADLs: Independent Level of Bishop - Homemaking: Independent Driving: Patient drives Functional History: Functional Assessment Bladder Continence Pre-Hospital Bladder Continence: (presumed continent) Current Bladder Continence: (presumed ontinent) Medication: Yes Medication Type: Flomax Bowel Continence Date of Last BM: 01/12/23 Pre-Hospital Bowel Continence: (presumed continent) Current Bowel Continence: (presumed Coninent) Bowel Medication: Yes Medication Type: Miralax, Senna S Prior Functioning Everyday Activities Self Care: 3 - Independent Indoor Mobility (Ambulation): 3 - Independent Stairs: 3 - Independent Functional Cognition: 3 - Independent Prior Device Use Manual W/C: No Motorized W/C or Scooter: No Mechanical Lift: No Walker: No Orthotics/Prosthetics: No Functional Issues Balance: sitting static and dynamic - supervision , standing static SB dynamic CG Strength: moderate Range of Motion: limited all ectrm Non-FIM Functional Assessment Eating Pre-Morb: Independent Now: Min. Assist/Contact Guard Goal: Independent Grooming/Hygiene Pre-Morb: Independent Now: Min Assist/Contact Guard Goal: Independent Upper Ext Dressing Pre-Morb: Independent Now: Not Evaluated Goal: Independent Lower Ext Dressing Pre-Morb: Independent Now: Min Assist/Contact Guard Goal: Independent Bladder Management Pre-Morb: Independent Now: Min Assist/Contact Guard Goal: Independent Bowel Management Pre-Morb: Independent Now: Min Assist/Contact Guard Goal: Independent Bed Mobility Pre-Morb: Independent Now: Supervision (hand rails) Goal: Independent Supine-Sit Pre-Morb: Independent Now: Supervision (hand rails) Goal: Independent Sit-Stand Pre-Morb: Independent Now: Min Assist/Contact Guard Goal: Independent Transfer Pre-Morb: Independent Now: Min Assist/Contact Guard Goal: Independent Toilet Transfer Pre-Morb: Independent Now: Min Assist/Contact Guard Goal: Independent Ambulation Pre-Morb: Independent Now: Min Assist/Contact Guard Goal: Independent Expression Pre-Morb: Independent Now: Independent Goal: Independent Memory Pre-Morb: Independent Now: Min Assist/Contact Guard Goal: Independent Completed Therapy Evaluations Therapy: PT, OT, ACADEMIC SERVICES PROFESSIONAL Physical Exam BP 116/60 Pulse (!) 59 Temp 98.4 F (36.9 C) (Oral) Resp 16 Ht 6' Wt 106 kg (233 lb 11 oz) SpO2 93% BMI 31.69 kg/m General: no acute distress, awake, conversant. + Dysarthria. Mild left facial droop HEENT: EOMI grossly, normal hearing Respiratory: normal respiratory effort, no respiratory distress Cardiovascular: extremities well-perfused Abdomen: non-tender, non-distended. Soft Musculoskeletal: No joint swelling Neuro: alert, Dysarthria & comprehensible, L hemiparesis Left side 4-4+/5. Right side 5/5. No ankle clonus Psychiatric: pleasant, cooperative. Tearful at times Skin: no rashes visualized MENTAL STATUS: Alertness, Attention & Concentration: Normal Communication: Normal Orientation: Normal Memory, Recent & Remote: Normal CRANIAL NERVES: II, III: Pupils: PER III, IV, : Eye Movements: Normal (EOMI, No ptosis, No nystagmus) V - Facial Sensation: Normal VII: Face Symmetry & Strength: Mild facial droop VIII - Hearing: Normal IX, X - Palate:: Normal XI - Shoulder Shrug: Normal XII - Tongue Protrusion: Normal GAIT: Unable to walk due to no assistance to safely evaluate Tone: Normal SENSATION: Light Touch: Normal Laboratory Data I have reviewed the patient's relevant labs. Lab Results Component Value Date ALBUMIN 3.2 01/16/2023 ALT 27 01/16/2023 AST 18 01/16/2023 BUN 22 01/18/2023 CALCIUM 8.8 01/18/2023 CL 105 01/18/2023 CHOL 125 01/06/2023 CREATININE 1.45 (H) 01/18/2023 GLUCOSE 134 (H) 01/18/2023 HDL 37 (L) 01/06/2023 HCT 41.5 01/18/2023 HGB 13.4 (L) 01/18/2023 HGBA1C 6.6 (H) 01/06/2023 MG 2.4 01/13/2023 PHOS 3.5 01/07/2023 PLT 172 01/18/2023 K 4.8 01/18/2023 NA 136 01/18/2023 TRIG 110 01/06/2023 WBC 6.08 01/18/2023 Diagnostic Studies I have reviewed the patient's relevant imaging. MRI & CT Studies: (last 6 months) CT Head Or Brain Without Contrast Final Result by Salas Goldstein MD (01/07/2023 0665) 1. Continued evolution of the area of infarction in the right posterior frontal and temporal lobe involving the operculum with findings consistent with petechial hemorrhage as noted on the prior examination consistent with laminar necrosis. A telephone call regarding the findings in the study was made to and acknowledged by Esha, the nurse practitioner, in the, in the [facility] at 6:20 a.m. on 01/07/2023. Workstation ID: [id number] CT Angiogram Brain With Perfusion Final Result by Salas Goldstein MD (01/06/2023 8131) 1. Improvement in the appearance of the intracranial vessels. Previously noted abnormality in the M2 segment of the right MCA is no longer visualized with patent appearance of the MCA bilaterally. Distal distributions appear symmetric. 2. Better visualization of the posterior circulation. Dominant V4 on the right with calcific plaquewithout flow-limiting stenosis. 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 The distal V4 segment on the left is not visualized. A telephone call regarding the findings in the examination was made to and acknowledged by Dr. Baltazar from neurology at 5:30 a.m. on 01/06/2023. Workstation ID: [id number] CT Head Without Contrast (Stroke) Final Result by Salas Goldstein MD (01/06/2023 3725) 1. Subtle low-density within the llamas radiata on the right. Early area of infarction not excluded. 2. Hyperdensity within the distal right MCA not as conspicuous as on the prior study. 3. Small vessel ischemic changes. 4. Atrophy. Workstation ID: [id number] CT Angiogram Head Neck (STROKE) Final Result by Salas Goldstein MD (01/06/2023 0327) 1. Calcific plaque in the carotid bifurcations bilaterally, worse on the left than the right. Thereis approximately 40-50% stenosis in the left carotid bifurcation. 2. Distal right MCA superior division occlusion as described above. 3. Right vertebral artery is dominant demonstrates diffuse calcific plaque with moderate to severe stenosis throughout the V1 and V2 segments. Additional high-grade stenosis with soft plaque is also seen in the proximal V4 segment.The left vertebral artery is diffusely hypoplastic. V4 segment on the left is occluded. There is faint contrast seen within the left PICA. A telephone call regarding the findings examination was made to and acknowledged by Dr. Baltazar from neurology at 3:20 a.m. on 01/06/2023. Workstation ID: [id number] CT Cervical Spine Without Contrast Final Result by Salas Goldstein MD (01/06/2023 0239) 1. Examination limited by patient positioning. 2. No gross evidence of fracture. 3. Multilevel cervical spondylosis. 4. Dense calcific plaque with stenosis in the visualized portion of the right vertebral artery. Workstation ID: [id number] ECG 12 Lead Result Date: 01/11/2023 Sinus rhythm with 1st degree AV block with occasional Premature ventricular complexes and Prematureatrial complexes Nonspecific ST abnormality Prolonged QT Abnormal ECG ECG Cart Interpretation - seephysician note for interpretation. Confirmed by Mahnaz Morales ([id number]) on 01/11/2023 3:04:[address] Head Or Brain Without Contrast Result Date: 01/07/2023 EXAMINATION: CT HEAD OR BRAIN WITHOUT CONTRAST HISTORY: F/U stroke, ? petechial hemorrhage Injury/Trauma or Illness?:Illness/Other How long have you had these symptoms (acute/chronic)?:Acute Reason for exam?:F/U stroke, ? petechial hemorrhage Type of Exam?:Subsequent/Follow-up Additional signs and symptoms?:F/U stroke, ? petechial hemorrhage I63.9 Acute ischemic stroke (HCC)Injury/Trauma or Illness?:Illness/Other How long have you had these symptoms (acute/chronic)?:AcuteF/U stroke, ? petechialhemorrhage COMPARISON: Head CT dated 01/06/2023 at 8:54 p.m.. CONTRAST: None. TECHNIQUE CT Head with axial, coronal and sagittal reformats. Dose reduction techniques were achieved by using automated exposure control and/or adjustment of mA and/or kV according to patient size and/or use of iterativereconstruction technique. FINDINGS: FINDINGS: POSTOPERATIVE CHANGES: None. BRAIN PARENCHYMA: There is low density now appreciated consistent with an evolving infarction in the region of the posteriorright frontal lobe and associated operculum. There is subtle hyperdensity within the cortex consistent with petechial hemorrhage. This is consistent with laminar necrosis. No midline shift or herniation is seen. There is patchy low-density in the white matter consistent with small vessel ischemic change in old lacunar infarctions are present in the centrum semiovale bilaterally. VENTRICLES/EXTRA-AXIAL SPACES: Ventricles and extraventricular spaces are within normal limits for patient's age. VESSELS: No hyperdense intraluminal thrombus. Vascular SINUSES/MASTOIDS:Thickening with cyst or polyp formation in the base of the left maxillary sinus. Erika bullosa bilaterally. S-shaped nasal septal deviation. Mastoids and middle ears are clear. MSK: No displaced or depressed calvarial fracture. OTHER: 1. Continued evolution of the area of infarction in the right posterior frontal and temporal lobe involving the operculum with findings consistent with petechial hemorrhage as noted on the prior examination consistent with laminar necrosis. A telephone call regarding the findings in the study was made to and acknowledged by Esha the nurse practitioner, in the, in the [facility] at 6:20 a.m. on 01/07/2023. Workstation ID: [id number] CT Head Or Brain Without Contrast Result Date: 01/06/2023 EXAMINATION: CT Head without Contrast HISTORY: Stroke, follow up To be completed 18-30 hours after thrombolytic (alteplase, tenecteplase) initiated or intervention complete Radiology to call Neurology on-call with critical results. COMPARISON: CT head, 01/06/2023 TECHNIQUE: Multiple axial noncontrast images of the brain were obtained and reformatted according to the standard protocol. Q DOCUMENTATION: At least one of the following dose reduction techniques was utilized: Iterative reconstruction, and/or Automatic Exposure Control, and/or mA/kV adjustment based on body size. FINDINGS: Infarct/Vascular: There is a small area of evolving infarction within the posterolateral right frontal lobe and involving a portion of the posterior right insula. There is a small area of very subtle hyperdensity within the subinsular region which may represent a small area of petechial hemorrhage. Patchy areas of decreased attenuation throughout the supratentorial white matter are nonspecific but commonly associated chronic small vessel ischemic disease. Intracranial Mass: No evidence of intracranial mass. CSF Spaces: Mild generalized parenchymal atrophy. No change since prior exam. Calvarium and Scalp: Unremarkable. Mastoid Air Cells: Clear. Paranasal Sinuses and Orbits: Mild lobulated mucosal thickening along the alveolar recess of the left maxillary sinus. The orbits are unremarkable. There is a small evolving infarction within the posterolateral right frontal lobe and adjacent posterior right insula. There is very subtle hyperdensity within the subinsular region which may represent minimal petechial hemorrhage. Continued follow-up recommended. Workstation ID: [id number] XR Modifed Barium Swallow Result Date: 01/06/2023 EXAMINATION: XR MODIFIED BARIUM SWALLOW HISTORY: dysphagia Dx: I63.9 (Acute ischemic stroke (HCC)) Injury/Trauma or Illness?:Illness/Other How long have you had these symptoms (acute/chronic)?:Unknown CONTRAST: BARIUM SULFATE 40 % (W/V), 30% (W/W) ORAL PASTE - 1 Dose, BARIUM SULFATE 40 % (W/V), 30 % (W/W) ORAL SUSPENSION - 1 Dose, BARIUM SULFATE 81 % (W/W) ORAL POWDER - 1 Dose, FLUOROSCOPY DOSE: Ka,r mGy: Fluoro dose in Ka,r mGy: 4.41 TECHNIQUE: Modified barium swallow performed with speech therapy. 372 fluoroscopic images obtained. FINDINGS: The prevertebral soft tissues are normal. Oral phase: Moderately impaired. Pharyngeal phase: Mild to moderately impaired. Penetration: During swallowing with thin liquid and nectar. Aspiration: Aspiration occurred during swallowing with thin liquid. Mild to moderately impaired pharyngeal phase of swallowing with penetration and aspiration of thin liquid. Please see speech therapy recommendations Workstation ID: [id number] US Renal Only Result Date: 01/06/2023 EXAMINATION: RENAL ULTRASOUND, 01/06/2023 HISTORY: Dx: I63.9 (Acute ischemic stroke (HCC)) Injury/Trauma or Illness?:Illness/Other How long have you had these symptoms (acute/chronic)?:Unknown eval, CKD COMPARISON FILMS: None. FINDINGS: Static images from real-time examination using grayscale, color Doppler sonography are provided. The study overall is slightly limited due to overlying bowel gas.The kidneys measure as follows: Right kidney: 11.5 x 6.2 x 5.7 cm, volume 213.0 mL. Left kidney: 12.4 x 7.2 x 5.5 cm, volume 256.3 mL. There is an anechoic lesion in the upper pole of the right kidney measuring 0.9 x 1.2 x 1.0 cm. There is an anechoic lesion in the mid pole of the left kidney measuring 1.4 x 1.4 x 1.4 cm. These have thin cedeño, good through transmission. No other mass, hydronephrosis, nephrolithiasis or perinephric fluid collections. 1. Except for a simple cyst in the right as well as left kidney no acute process such as hydronephrosis. The kidneys are essentially normal. [employer] Workstation ID: [id number] Echocardiogram complete w contrast Result Date: 01/06/2023 Patient Info Name: KEVIN WHITE Age: 82 years : 1940 Gender: Male Ht: 183 cm Wt: 112 kg BSA: 2.41 m2 HR: 69 bpm BP: 165 / 64 mmHg Technical Quality: Poor Exam Date: 01/06/2023 8:38 AM Patient Status: Inpatient Upscale Security Officer: Sheryl Smith [facility], RVTExam Type: ECHOCARDIOGRAM COMPLETE W CONTRAST Study Info Indications G45.9 - Transient cerebral ischemic attack, unspecified Attending Physician: ELLEN SOTO Referring Physician: BRUCEG. GASTON ; [id number] Primary Nurse: MINGLER OPERATOR BMI: 33.36 kg/m2 Summary 1. This study was technically limited, Definity IV contrast was used to enhance endocardial definition. 2. Left ventricular systolic func tion is normal with an ejection fraction by Biplane Method of Discs of 59 %. 3. And aortic bioprosthesis (27 mm Inspiris) appears well-seated, but is not well visualized. 4. There is no bioprostheticaortic valve stenosis with a peak velocity of 2.1 m/s, mean gradient of 10 mmHg, and aortic valve area of 1.8 cm2. 5. Left atrial chamber is mildly enlarged with a left atrial volume index of 41 ml/m2 by BP MOD. 6. Compared to the prior study from 11/13/2021, there is no significant interval change.History/Risk Factors Hypertension: Yes Dyslipidemia: Yes Diabetic Therapy: Oral Myocardial Infarction (TN): Yes Chronic Lung Disease: Yes Coronary Artery Disease (CAD) Yes Diabetes Mellitus: Yes COPD: Not Treated Tobacco Use: Never Cerebrovascular Disease: CVA Family History: Coronary Artery Disease Valve Disease - AV: Severe History/Risk Factors Patient has prior CABG on 08/12/2021. Prior Interventions Pacemaker: No PCI: Yes CABG: Yes Valve Surgery: Yes Type of Valve Surgery: AV Bioprosthetic Replacement ICD: No Date of CAB08/12/2021 Most Recent Valve Surgery: 08/12/2021 Transcatheter Intervention: HEATHER Closure Replacement Valve Size: 27 mm Inspiris Replacement Valve Size: 40mm atriclip Procedure(s): Complete two-dimensional, color flow and Doppler transthoracic echocardiogram is performed with contrast. Definity explained to patient. Patient verbalizes understanding and agrees to proceed. Definity 1.3ml/8.7ml normal sterile saline 2 ml total given IV over 30-60 seconds. Left Ventricle Left ventricular chamber dimension is normal. Left ventricular systolic function is normal with anejection fraction by Biplane Method of Discs of 59 %. Normal left ventricular mass. Left ventricular segmental wall motion is normal. There is normal diastolic function. E/e' average 11.9 is not elevated consistent with normal LA pressure. Right Ventricle Right ventricular chamber dimension is normal. Right ventricular systolic function is normal. Left Atria Left atrial chamber is mildly enlargedwith a left atrial volume index of 41 ml/m2 by BP MOD. Right Atria Right atrial chamber dimension is normal. Aortic Valve And aortic bioprosthesis (27 mm Inspiris) appears well-seated, but is not well visualized. There is no sclerosis of the bioprosthetic aortic valve leaflets. There is no regurgitation of the bioprosthetic aortic valve. There is no bioprosthetic aortic valve stenosis with a peakvelocity of 2.1 m/s, mean gradient of 10 mmHg, and aortic valve area of 1.8 cm2. Pulmonic Valve Thepulmonic valve is normal. There is no pulmonic valve stenosis. There is trace pulmonic regurgitation. Mitral Valve The mitral valve has normal leaflets. There is no mitral valve stenosis. Moderate mitral annular calcification. There is trace mitral valve regurgitation. Tricuspid Valve The tricuspidvalve leaflets are normal. There is no significant tricuspid valve stenosis. There is trace tricuspid valve regurgitation. There is no pulmonary hypertension, estimated right ventricle systolic pressure is 37 mmHg. Pericardium/Pleural The pericardium appears normal. There is no pericardial effusion. Inferior Vena Cava Normal inferior vena cava with >50% collapse upon inspiration consistent with normal right atrial pressure. Aorta The aortic measurements are indexed to age and body surface area. The aortic root is normal measuring 3.5 cm with an index of 1.4 cm/m2. The proximal ascending aorta is normal measuring 3.5 cm with an index of 1.4 cm/m2. Left Ventricular Outflow Tract Name Value Normal LVOT 2D LVOT Diameter 2.2 cm LVOT Doppler LVOT Peak Velocity 1.1 m/s LVOT Mean Gradient 1 mmHg LVOT VTI 20 cm LVOT VTI/AV VTI Ratio 0.5 LVOT Stroke Volume 78 ml LVOT Stroke Index 32.10 ml/m2 Pulmonic Valve --- Name Value Normal PV 2D RVOT Diameter (2D) 2.7 cm 1.7-2.7 PV Regurgitation Doppler ------- MA Peak Velocity 92.60 cm/s Mitral Valve Name Value Normal ------ MV Doppler MV Decel [place] 643 cm/s2 MV PHT 43 ms MV Area (PHT) 5.2 cm2 4.0-5.0 MV Diastolic Function MV E Peak Velocity 0.95 m/s MV A Peak Velocity 0.85 m/s MV E/A 1.1 MV Decel Time 147 ms MV Annular TDI MV Septal e' Velocity 6.7 cm/s >=8.0 MV E/e' (Septal) 14.1 <=8.0 MV Lateral e' Velocity 9.8 cm/s >=10.0 MV E/e' (Lateral) 9.7 <=8.0 MV e' Average 8.25 cm/s MV E/e' (Average) 11.9 Tricuspid Valve Name Value Normal TV Regurgitation Doppler TR Peak Velocity 2.90 m/s TR Peak Gradient 34 mmHg Estimated PAP/RSVP RA Pressure 3mmHg <=5 PA Systolic Pressure 37 mmHg <=36 RV Systolic Pressure 37 mmHg <36 Aorta --------- Name Value Normal Ascending Aorta Ao Root Diameter (2D) 3.5 cm 3.1-3.7 Ao Root Diam Index (2D) 1.4 cm/m2 1.5-1.9 Prox Asc Ao Diameter 3.5 cm 2.6-3.4 Prox Asc Ao Diameter Index 1.4 cm/m2 1.3-1.7 Venous Name Value Normal ------ IVC/SVC IVC Diameter (Exp 2D) 2.0 cm <=2.1 Aortic Valve ----- Name Value Normal AV Doppler AV Peak Velocity 2.1 m/s AV Mean Gradient 10 mmHg AV VTI 44 cmAV Area (Cont Eq VTI) 1.8 cm2 AV Area Index (Cont Eq VTI) 1 cm2/m2 AV Area (Cont Eq Clemente) 1.9 cm2 AVArea Index (Cont Eq Clemente) 1 cm2/m2 LVOT Vmax/AV Vmax 0.50 LVOT VTI/AV VTI Ratio 0.5 AV [id number] LVOT Area 3.8 cm2 Ventricles Name Value Normal -------- LV Dimensions 2D/MM IVS Diastolic Thickness (2D) 1.8 cm 0.6-1.0 LVID Diastole (2D) 4.9 cm 4.2-5.8 LVIW Diastolic Thickness (2D) 1.3 cm 0.6-1.0 LVID Systole (2D) 4.0 cm 2.5-4.0 LVOT Diameter 2.2 cm LV Mass (2D Cubed) 328.70 g 88.00-224.00 LV Mass Index (2D Cubed) 136 g/m2 49-115 Relative Wall Thickness (2D) 0.53 <=0.42 LV Fractional Shortening/Ejection [id number] LV Fractional Shortening (2D) 18 % 25-43 LV EF (2D Teicholz) 38 % 52-72 LV Diastolic Volume (4C MOD) 142 ml LV Systolic Volume (4C MOD) 61 ml LV EF (4C MOD) 57 % LV Diastolic Volume (2C MOD) 130 ml LV Systolic Volume (2C MOD) 50 ml LV EF (2C MOD) 61 % LV Diastolic Volume (BP MOD) 141 ml 62-150 LV Diastolic Volume Index (BP MOD) 58 ml/m2 34-74 LV Systolic Volume (BP MOD) 58 ml 21-61 LV Systolic Volume Index (BP MOD) 24 ml/m2 11-31 LV EF (BP MOD) 59 % 55-70 LV Diastolic Length (4C) 8.7 cm LV Systolic Length (4C) 7.9 cmLV End Diastolic Volume (BP A-L) 140 ml LV End Systolic Volume (BP A-L) 58 ml LV EF (BP A-L) 59 % LV Stroke Volume (4C MOD) 81 ml LV SI (4C MOD) 33.58 ml/m2 RV Dimensions 2D/MM RV Basal Diastolic Dimension 3.8 cm 2.5-4.1 RV Mid-Cavity Diastolic Dimension 3.4 cm 1.9- 3.5 RV Systolic Function RV s' Velocity 0.09 m/s 0.10-0.19 Atria Name Value Normal LA Dimensions LA Dimension (2D) 3.9 cm 3.0-4.1 LA Dimen Index (2D) 1.6 cm/m2 LA Area (4C) 29.1 c m2 LA Length (4C) 7.3 cm LA Area (2C) 24.7 cm2 LA Length (2C) 5.9 cm LA Volume (4C MOD) 95 ml LA Volume (2C MOD) 82 ml LA Volume (4C A-L) 98 ml LA Volume (2C A-L) 88 ml LA Volume (BP A-L) 103 ml LA Volume Index (BP A-L) 43 ml/m2 <=34 LA Volume (BP MOD) 98 ml LA Volume Index (BP MOD) 41 ml/m2 16-34 RA Dimensions RA Systolic Major Winston Length (4C) 5.93 cm <=5.30 RA Area (4C) 23.0 cm2 <=18.0 RA Area (4C) Index 10 cm2/m2 RA ESV (4C MOD) 71 ml 18-32 RA ESV Index (4C MOD) 29 ml/m2 <=32 Report Signatures Finalized by Radha Lawler MD on 01/06/2023 10:39 AM LA Pressure: normal CT Angiogram Brain With Perfusion Result Date: 01/06/2023 EXAMINATION: CT ANGIOGRAM BRAIN WITH PERFUSION HISTORY: r mca syndrome Injury/Trauma or Illness?:Illness/Other How long have you had these symptoms (acute/chronic)?:Acute Reason for exam?:r mca syndrome Type of Exam?:Initial Additional signs and symptoms?:r mca syndrome I63.9 Acute ischemic stroke ( HCC)Injury/Trauma or Illness?:Illness/Other How long have you had these symptoms (acute/chronic)?:Acuter mca syndrome COMPARISON: Head CT and CT angiogram performed at [facility] dent dated 01/06/2023 at 2:[address] dated 01/06/2023 at 4:39 a.m.. TECHNIQUE: CT angiogram of the head was performed. Coronal, sagittal and 3-D reformats were created and reviewed. Dose reduction techniques were achieved by using automated exposure control and/or adjustment of mA and/or kV according to patient size and/or use of iterative reconstruction technique CONTRAST: Isovue 370 FINDINGS: BRAIN: Perfusion images demonstrate 0 mL volume of hypoperfusion with T-max greater than 6 seconds and 0 mLvolume of core infarction with cerebral of flow less than 30%. ANTERIOR CIRCULATION:The intra petrous, intra cavernous, and supraclinoid ICA are patent. LILI patent bilaterally. MCA patent bilaterally. No large vessel occlusion or thrombus. No aneurysm. Distal distributions now appear symmetric. POSTERIOR CIRCULATION: Dominant right V4 segment demonstrates calcific plaque without flow-limiting stenosis. 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 No distal V4 segment is seen. This is hypoplastic or occluded. Basilar artery is patent. Basilar tip is patent. SCA and [employer] patent. Distal [employer] distributions are symmetric. 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 This is better visualized as compared to the prior study. OTHER: No pathologic enhancing lesions are seen. 1. Improvement in the appearance of the intracranial vessels. Previously noted abnormality in the M2 segment of the right MCA is no longer visualized with patent appearance of the MCA bilaterally. Distal distributions appear symmetric. 2. Better visualization of the posterior circulation. Dominant V4 on the right with calcific plaque without flow-limiting stenosis. 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 The distal V4 segment on the left is not visualized. A telephone call regarding the findings in the examination was made to and acknowledged by Dr. Baltazar from neurology at 5:30 a.m. on 01/06/2023. Workstation ID: [id number] CT Head Without Contrast (Stroke) Result Date: 01/06/2023 EXAMINATION: CT HEAD WITHOUT CONTRAST (STROKE) HISTORY: r mca syndrome Injury/Trauma or Illness?:Illness/Other How long have you had these symptoms (acute/chronic)?:Acute Reason for exam?:r mca syndrome Type of Exam?:Initial Additional signs and symptoms?:r mca syndrome Injury/Trauma or Illness?:Ill ness/Other How long have you had these symptoms (acute/chronic)?:Acuter mca syndrome COMPARISON: Head CT dated 01/06/2023 at 1:[address] angiogram of the head and neck dated 01/06/2023 at 2:33 a.m.. CONTRAST: None. TECHNIQUE CT Head with axial, coronal and sagittal reformats. Dose reduction techniques were achieved by using automated exposure control and/or adjustment of mA and/or kV according to patient size and/or use of iterative reconstruction technique. FINDINGS: FINDINGS: POSTOPERATIVE CHANGES: None. BRAIN PARENCHYMA: There is very subtle hypodensity present within the llamas radiata on the right, image 31/series 7. No intraparenchymal or extra-axial hemorrhage. No mass effect. No midline shift or herniation. Patchy low-density in the white matter also noted consistent with small vessel ischemic change. VENTRICLES/EXTRA-AXIAL SPACES: Enlarged, consistent with atrophy. VESSELS: The subtle hyperdensity previously noted in the right MCA is less conspicuous, image 18/series 7. Vascular calcifications are noted. Please refer to the CT angiogram report. SINUSES/MASTOIDS:Visualizedsinuses are clear. Erika bullosa bilaterally. Nasal septal deviation to the right with spur formation. Mastoids and middle ears are clear. MSK: No displaced or depressed calvarial fracture. OTHER: 1. Subtle low-density within the llamas radiata on the right. Early area of infarction not excluded. 2. Hyperdensity within the distal right MCA not as conspicuous as on the prior study. 3. Small vessel ischemic changes. 4. Atrophy. Workstation ID: [id number] XR Chest 1 View Result Date: 01/06/2023 EXAMINATION: XR CHEST PA/AP HISTORY: ORDERING SYSTEM PROVIDED HISTORY: Large stroke, mechanical fall, TECHNOLOGIST PROVIDED HISTORY: Illness/Other Reason for exam: stroke, mechanical fall Cancer History: u Surgery, RadiationHistory: u Encounter Type: Initial Additional signs and symptoms: . ORDERING SYSTEM PROVIDED DIAGNOSIS CODES: I63.9 Acute ischemic stroke (HCC) N28.9 Renal insufficiency COMPARISON: PA and lateral views of the chest dated 09/25/2021. TECHNIQUE: AP semi-erect portable chest radiograph performed. FINDINGS: Stable median sternotomy wires, mediastinal surgical clips, valve replacement and left atrial appendage clip. The trachea is midline. Stable mild prominence of the cardiomediastinal silhouette and stable mild atheromatous calcification at the aortic arch. Mild elevation of the right hemidiaphragm. There is no consolidation or infiltrates. There is no pleural effusionor pulmonary vascular congestion. There is no pneumothorax. The bony structures are osteopenic. There is no acute osseous abnormality. There is no acute cardiopulmonary process. Workstation ID: [id number] CT Angiogram Head Neck (STROKE) Result Date: 01/06/2023 EXAMINATION: CT ANGIOGRAM HEAD NECK (STROKE) HISTORY: LAMS of 5, appears to have a large clot. Toldby the stroke neurologist Dr. Raúl Baltazar to proceed with CTA at this time since there is a delay for ground transportation.; stroke alert, LAMS=5 Injury/Trauma or Illness?:Illness/Other How long have you had these symptoms (acute/chronic)?:Acute Reason for exam?:stroke alert, LAMS=5 Type of Exam?:Initial Additional signs and symptoms?:LKW: 0000 01/06/23 I63.9 Acute ischemic stroke (HCC)Injury/Trauma or Illness?:Illness/Other How long have you had these symptoms (acute/chronic)?:AcuteLAMS of5, appears to have a large clot. Told by the stroke neurologist Dr. Raúl Baltazar to proceed with CTA at this time since there is a delay for ground transportation.; stroke alert, LAMS=5 COMPARISON:Head CT dated 01/06/2023 at 1:46 a.m.. TECHNIQUE: CT angiogram of the head and neck was performed. Coronal, sagittal and 3-D reformats were created and reviewed. Carotid stenosis measurements were made according to the NASCET criteria. Dose reduction techniques were achieved by using automated exposure control and/or adjustment of mA and/or kV according to patient size and/or use of iterative reconstruction technique CONTRAST: 75 mL of Isovue 370 FINDINGS: NECK: AORTIC ARCH: Calcific plaque in the aortic arch. Allowing for streak artifacts, the origins the great vessels are patent. ANTERIOR CIRCULATION:Common carotid arteries are patent. There is calcific plaque in the carotid bifurcations.No flow-limiting stenosis is present on the right. On the left, there is approximately 45-50% stenosis. Cervical IC (more content not included)... [id number] History and physical note* Shahrzad Odom DO - 01/15/2023 10:22 PM EST HISTORY & PHYSICAL Physical Medicine & Rehabilitation [facility] Acute Inpatient Rehabilitation H&P 01/18/2023 Patient Name: Kevin White Date of : 1940 (82 y.o.) Primary Care Physician: Moi Gibson MD Date of Admission: 01/15/2023 Assessment & Plan Debility 2/2 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 -01/06 VIANEY: normal EF 59%, well-seated AVR, LA dilation. -01/07 CTH: evolution of acute R MCA CVA with petechial hemorrhage -LDL 66, A1c 6.6 -Neurology followed on medical floor -Started ASA and transitioned to eliquis 01/11/23 -Transferred to [facility] on 01/15/23 -Atorvastatin 40mg daily -Eliquis 5mg BID -Initiate comprehensive rehab plan to include PT/OT/ACADEMIC SERVICES PROFESSIONAL Situational depression -01/15 Started Prozac 20mg daily titrate as tolerated Dysphagia -Chopped/ NDD3, chopped meats, Thin liquids -MBS when appropriate -Speech following Oral candidiasis -Nystatin swish and swallow Chronic HFpEF CAD s/p CABG x3 (07/2021) Hypertension A. Fibrillation s/p cardioversion/MAZE/LA clipping -Norvasc 10mg daily -Eliquis 5mg BID -Tikosyn 250mcg q12 -Lasix 20mg daily -Lisinopril 10mg daily Hyperlipidemia -Home med: Crestor 20mg daily -Atorvastatin 40mg daily Hypothyroidism -Levothyroxine 175mcg daily Type 2 DM with hyperglycemia -Home med: Glucophage XR 500mg BID -A1c 6.6 -Carb controlled diet -Accuchecks QID -Insulin SSI for coverage AJAY on CKD -Unclear stage. Admission on medical floor C 1.4 ->0.9 -01/14 Cr 1.6. s/p gentle hydration -Continue to monitor Thrombocytopenia -Baseline plts low-normal ~150 -01/07 Plts 91 -Bleeding risk Pain management -PRN Tylenol Bladder BPH -Admission UA/cx -Bladder scans and ISC if indicated -Flomax 0.4mg daily Bowels -Monitor for regular BMS -Senna-s 1 tab BID -Miralax daily H/o NAJMA -Refuses CPAP DVT prophylaxis -Eliquis 5mg BID GI prophylaxis GERD -Home med: Nexium 40mg daily -Protonix 40mg daily Nutrition -Mag Ox 400mg daily -B-12 1000mcg daily -MVI daily Obesity -BMI: 31.69 -Encourage diet modification, active lifestyle, and weight reduction. Discharge Barriers: Mobility, ADL, Self Care Impairment: Intensive PT/OT Decreased Endurance: Intensive PT/OT Skin: Turn every 2 hours, monitor for skin breakdown per rehabilitation nursing Nutritional Status: Nutrition Consult Pulmonary Rehabilitation: Encourage incentives spirometry and deep breathing exercises Left Hemiparesis: Intensive PT/OT Dysphagia, Dysarthria, Aphasia, and Cognitive Deficits: Speech evaluation Diet - The patient is asked to make an attempt to improve diet and exercise patterns to aid in medical management of this problem. DVT prophylaxis - Eliquis Precautions - fall, aspiration Follow-ups - Stroke Prevention Clinic - PCP Consulted internal medicine to monitor co-morbidities during rehab. Patient requires frequent management by consulting physicians not available in a lower level of care and frequent lab monitoring. On admission, I (inpatient rehabilitation facility physician) completed the medication reconciliation, and no issues were found. Description of Current Medical Status: Medical/Functional Exam: Please see below Rehabilitation Diagnosis: As above Current & Prior Comorbid Conditions: Please see problem list above Current and Prior Level of Function: Please see below Status Compared to Pre-Admission: There are no clinically significant differences between the patient's current medical and functional status as documented in the preadmission screen. Please see current functional status and hospital course/medical management. Treatment Plan: Disciplines Required: Physical Therapy, Occupational Therapy, Speech Therapy, Case Management/Social Work, and Nursing Specialized in Rehabilitation Intensity of Services: At least 3 hours per day, 5 days a week Functional Goals: improve independence with regard to mobility, ADLs, cognition, communication, andswallowing Medical Goals: Medically stable for home discharge Special/Safety Considerations: Fall risk and Bleeding precautions There are no special or safety considerations that would likely preclude immediate implementation of an intensive rehabilitation program (intensity as stated above) or substantially influence plan ofcare. Risk of Complications: Patient is High Risk For: Falls, Skin breakdown, Dehydration and malnourishment, Atelectasis, Bleeding, Constipation/ileus, Urinary retention with acute kidney injury, Hypotension/hypertension, DVT/PE, and Cardiac Event Discharge Barriers: Functional deficits and medical stability Patient requires medical monitoring and management of comorbidities and/or hospital complications Patient requires Nursing Specialized in Rehabilitation to Monitor: Bowel and Bladder Care, Neurologic Assessment, and Frequent Pain or Palliative Assessment Psychosocial Considerations: Safe home discharge plan Attestation: Considering all of the information above, it is my best judgment that this patient requires an intensive rehabilitation multidisciplinary program as previously described due to the necessity of medical management, rehabilitation needs, and complexity of nursing care under the supervision of a rehabilitation physician (patient requires at least 3 rehab physician visits per week). It can be reasonably expected that patient will participate in and benefit from a multidisciplinary team approach to maximize functional independence that is best served with acute inpatient rehabilitation as opposed to lower level of care. The teams needed are: Rehabilitation Nursing for medication management, bowel/bladder care, skin care, and respiratory care Physical Therapy for strengthening, endurance, mobility, gait and balance training, ROM, ADL's, andpatient/family training Occupational Therapy for strengthening, endurance, mobility, gait and balance training, ROM, ADL's,and patient/family training Speech Therapy for cognition, swallow evaluation and therapy, and communication Social Work for integrated social support and discharge planning Estimated Length of Stay: 10-14 days Discharge Destination: home Rehab Prognosis: Good Chief Complaint Weakness History of Present Illness Date of Admission: 01/15/2023 Informant(s): Patient, Care Team / Chart History of Present Illness: Kevin White is a 82 y.o. male with PMH of CAD, AFIB s/p cardioversion/MAZE/LA clipping, CHF, IDDM type 2, who presented to [facility] on 01/06/2023 from [facility] with left sided weakness and garbled speech, s/p OLH tPA. Admitted to [facility] & found to have acute R MCA CVA. 01/06 CTA H/N: distal R MCA occlusion s/p TPA. CT brain perfusion after TPA with improved perfusion, noted hypoplastic L V4. 12/17 VIANEY: normal EF 59%, well-seated AVR, LA dilation. 01/07 CTH: evolution of acute R MCA CVA with petechial hemorrhage. LDL 66, A1c 6.6 . Speech followed pt and rec Chopped/ NDD3, chopped meats, Thin liquids. Noted to have AJAY on CKD. Unclear stage. Admission on medical floor C 1.4 ->0.9.01/14 Cr1.6. s/p gentle hydration. Started ASA and transitioned to eliquis 01/11/23. Seen by PT, OT, Speechwho recommended [facility] level rehab. Transferred to [facility] on 01/15/23 PT reports doing well. +Dysarthria but intelligible. Denies RAMSEY, change in vision, CP, SOB, N/V. He became tearful discussing deficits from CVA. Reports having a difficult time sleeping. Eating fair. Review of Systems General: - fever, - chills HEENT: - headache, - vision changes Resp: - shortness of breath, - cough Cardiac: - chest pain, - leg swelling GI: - constipation, - nausea : - urinary retention, - urinary incontinence MSK: - joint pain, - joint swelling Neuro: - confusion,+weakness Psychological: - depression, - anxiety Skin: - rashes, - wounds Allergies I have reviewed the patient's allergies. Patient has no known allergies. Medications I have reviewed the patient's medication list and performed a complete reconciliation. Home Medications: Prior to Admission medications Medication Sig Start Date End Date Taking? Authorizing Provider amLODIPine (NORVASC) 10 MG tablet Take 1 (one) tablet (10 mg total) by mouth daily . 01/08/23 02/07/23 Elier Mejia MD apixaban (ELIQUIS) 5 mg Tab Take 1 (one) tablet (5 mg total) by mouth 2 (two) times a day . 01/08/23 Elier Mejia MD cyanocobalamin (B-12) 1000 MCG tablet Take 1 (one) tablet (1,000 mcg total) by mouth daily . Provider, MD Anastacia dofetilide (TIKOSYN) 250 MCG capsule Take 1 (one) capsule (250 mcg total) by mouth every 12 (twelve) hours . 01/05/23 Ira Ricci CNP esomeprazole (NEXIUM) 40 MG capsule Take 1 (one) capsule (40 mg total) by mouth every morning before breakfast . Anastacia Randle MD furosemide (LASIX) 20 MG tablet Take 1 (one) tablet (20 mg total) by mouth daily . 01/15/23 Sarah Mabry DO levothyroxine (SYNTHROID, LEVOTHROID) 175 MCG tablet Take 1 (one) tablet (175 mcg total) by mouth daily . Anastacia Randle MD lisinopriL (PRINIVIL,ZESTRIL) 10 MG tablet Take 1 (one) tablet (10 mg total) by mouth daily with lunch Start: 08/25/21. 08/25/21 Mary Monaco CNP magnesium oxide (MAG-OX) 400 mg (241.3 mg magnesium) tablet Take 1 (one) tablet (400 mg total) by mouth daily Start: 01/09/23. 01/09/23 02/08/23 Elier Mejia MD metFORMIN (GLUCOPHAGE-XR) 500 MG 24 hr tablet Take 1 (one) tablet (500 mg total) by mouth 2 (two) times a day . Anastacia Randle MD potassium chloride SA (K-DUR,KLOR-CON) 20 MEQ tablet Take 1 (one) tablet (20 mEq total) by mouth daily . 01/15/23 Sarah Mabry DO rosuvastatin (CRESTOR) 20 MG tablet Take 1 (one) tablet (20 mg total) by mouth nightly . Anastacia Randle MD tamsulosin (FLOMAX) 0.4 mg capsule Take 1 (one) capsule (0.4 mg total) by mouth daily . Anastacia Randle MD therapeutic multivitamin (THERAGRAN) tablet Take 1 (one) tablet by mouth daily . Anastacia Randle MD traZODone (DESYREL) 50 MG tablet Take 0.5 (one-half) tablet (25 mg total) by mouth nightly as needed . Anastacia Randle MD aspirin 81 MG EC tablet Take 1 (one) tablet (81 mg total) by mouth daily for 2 doses Start: 01/09/23. 01/09/23 01/15/23 Elier Mejia MD atorvastatin (LIPITOR) 40 MG tablet Take 1 (one) tablet (40 mg total) by mouth nightly . 01/08/23 01/15/23 Elier Mejia MD furosemide (LASIX) 20 MG tablet Take 2 (two) tablets (40 mg total) by mouth daily . 09/25/21 01/15/23Ira Meyers CNP insulin glargine (Lantus Solostar U-100 Insulin) 100 unit/mL (3 mL) InPn Inject 5 (five) Units under the skin nightly . 01/08/23 01/15/23 Elier Mejia MD potassium chloride SA (K-DUR,KLOR-CON) 20 MEQ tablet Take 1 (one) tablet (20 mEq total) by mouth daily . 09/25/21 01/15/23 Ira Meyers CNP Current HOSPITAL Medications: Scheduled Meds: Continuous Infusions: PRN Meds: Past Medical History Past Medical History: Diagnosis Date Arthritis Back pain CHF (congestive heart failure) (HCC) COPD (chronic obstructive pulmonary disease) (HCC) Coronary artery disease Diabetes mellitus (HCC) Diabetes mellitus, type 2 (HCC) Disease of thyroid gland GERD (gastroesophageal reflux disease) Hernia of abdominal wall Hyperlipidemia Hypertension Myocardial infarction (HCC) Sleep apnea, obstructive refuses to use c-pap Stroke (HCC) Past Surgical History Past Surgical History: Procedure Laterality Date CABG AVR W/ MAZE Bilateral 08/12/2021 Procedure: CORONARY ARTERY BYPASS GRAFT TIMES THREE (krueger-lad, svg-d1, svg- drca)WITH ENDOVEIN HARVEST, Aortic valve replacement (27mm Paul Inspiris), full LA MAZE ([employer]compass RFA box, RFA HEATHER, cryoRA caval and RAA line), LEFT ATRIAL APPENDAGE LIGATION (40mm AtriCLIP), TRANSESOPHAGEAL ECHOCARDIOGRAM; Surgeon: Luis Beasley MD; Location: [facility] NEURO OR; Service: Cardiothoracic CARDIAC CATHETERIZATION CARDIAC CATHETERIZATION Bilateral 07/01/2021 No intervention, right radial CARDIAC CATHETERIZATION N/A 07/01/2021 Procedure: Coronary Angiogram; Surgeon: Shmuel Villaplando MD; Location: [facility]; Service: Cardiovascular CARDIAC CATHETERIZATION N/A 07/01/2021 Procedure: Right Heart Cath; Surgeon: Shmuel Villalpando MD; Location: [facility]; Service: Cardiovascular CARDIAC CATHETERIZATION N/A 07/01/2021 Procedure: Left Ventriculogram; Surgeon: Shmuel Villalpando MD; Location: [facility]; Service: Cardiovascular CARDIAC CATHETERIZATION N/A 07/01/2021 Procedure: Left Heart Cath; Surgeon: Shmuel Villalpando MD; Location: [facility]; Service: Cardiovascular cataracts removed Bilateral CORONARY STENT PLACEMENT EP - INTERVENTION N/A 08/24/2021 Procedure: Cardioversion/CTA; Surgeon: Abhishek Lauren MD; Location: [facility] EP LAB; Service: Cardiovascular HERNIA REPAIR W/HYDROCELE Right Family History Family History Problem Relation Age of Onset Heart disease Father Social History Social History: Home Living Obtained Home Living and PLOF info from: Patient Lives With: Spouse Type of Home: House Home Layout: Two level, Bed and full bath upstairs, 1/2 bath on main level Steps to enter home: Yes Rails to enter home: 2 rails Number of stairs to enter home: 5 Bathroom Shower/Tub: Walk-in shower Bathroom Toilet: Standard Bathroom Equipment: Shower chair, Grab bars in shower Mobility Equipment: Wheeled walker, Cane Additional Objective Details - Home Livin) AD used at baseline Prior Level of Function Level of Bishop - Transfers/Ambulation/Mobility: Independent with functional transfers, Independent with household ambulation, Independent with community ambulation Level of Bishop - ADLs: Independent Level of Bishop - Homemaking: Independent Driving: Patient drives Functional History: Functional Assessment Bladder Continence Pre-Hospital Bladder Continence: (presumed continent) Current Bladder Continence: (presumed ontinent) Medication: Yes Medication Type: Flomax Bowel Continence Date of Last BM: 01/12/23 Pre-Hospital Bowel Continence: (presumed continent) Current Bowel Continence: (presumed Coninent) Bowel Medication: Yes Medication Type: Miralax, Senna S Prior Functioning Everyday Activities Self Care: 3 - Independent Indoor Mobility (Ambulation): 3 - Independent Stairs: 3 - Independent Functional Cognition: 3 - Independent Prior Device Use Manual W/C: No Motorized W/C or Scooter: No Mechanical Lift: No Walker: No Orthotics/Prosthetics: No Functional Issues Balance: sitting static and dynamic - supervision , standing static SB dynamic CG Strength: moderate Range of Motion: limited all ectrm Non-FIM Functional Assessment Eating Pre-Morb: Independent Now: Min. Assist/Contact Guard Goal: Independent Grooming/Hygiene Pre-Morb: Independent Now: Min Assist/Contact Guard Goal: Independent Upper Ext Dressing Pre-Morb: Independent Now: Not Evaluated Goal: Independent Lower Ext Dressing Pre-Morb: Independent Now: Min Assist/Contact Guard Goal: Independent Bladder Management Pre-Morb: Independent Now: Min Assist/Contact Guard Goal: Independent Bowel Management Pre-Morb: Independent Now: Min Assist/Contact Guard Goal: Independent Bed Mobility Pre-Morb: Independent Now: Supervision (hand rails) Goal: Independent Supine-Sit Pre-Morb: Independent Now: Supervision (hand rails) Goal: Independent Sit-Stand Pre-Morb: Independent Now: Min Assist/Contact Guard Goal: Independent Transfer Pre-Morb: Independent Now: Min Assist/Contact Guard Goal: Independent Toilet Transfer Pre-Morb: Independent Now: Min Assist/Contact Guard Goal: Independent Ambulation Pre-Morb: Independent Now: Min Assist/Contact Guard Goal: Independent Expression Pre-Morb: Independent Now: Independent Goal: Independent Memory Pre-Morb: Independent Now: Min Assist/Contact Guard Goal: Independent Completed Therapy Evaluations Therapy: PT, OT, ACADEMIC SERVICES PROFESSIONAL Physical Exam BP 116/60 Pulse (!) 59 Temp 98.4 F (36.9 C) (Oral) Resp 16 Ht 6' Wt 106 kg (233 lb 11 oz) SpO2 93% BMI 31.69 kg/m General: no acute distress, awake, conversant. + Dysarthria. Mild left facial droop HEENT: EOMI grossly, normal hearing Respiratory: normal respiratory effort, no respiratory distress Cardiovascular: extremities well-perfused Abdomen: non-tender, non-distended. Soft Musculoskeletal: No joint swelling Neuro: alert, Dysarthria & comprehensible, L hemiparesis Left side 4-4+/5. Right side 5/5. No ankle clonus Psychiatric: pleasant, cooperative. Tearful at times Skin: no rashes visualized MENTAL STATUS: Alertness, Attention & Concentration: Normal Communication: Normal Orientation: Normal Memory, Recent & Remote: Normal CRANIAL NERVES: II, III: Pupils: PER III, IV, : Eye Movements: Normal (EOMI, No ptosis, No nystagmus) V - Facial Sensation: Normal VII: Face Symmetry & Strength: Mild facial droop VIII - Hearing: Normal IX, X - Palate:: Normal XI - Shoulder Shrug: Normal XII - Tongue Protrusion: Normal GAIT: Unable to walk due to no assistance to safely evaluate Tone: Normal SENSATION: Light Touch: Normal Laboratory Data I have reviewed the patient's relevant labs. Lab Results Component Value Date ALBUMIN 3.2 01/16/2023 ALT 27 01/16/2023 AST 18 01/16/2023 BUN 22 01/18/2023 CALCIUM 8.8 01/18/2023 CL 105 01/18/2023 CHOL 125 01/06/2023 CREATININE 1.45 (H) 01/18/2023 GLUCOSE 134 (H) 01/18/2023 HDL 37 (L) 01/06/2023 HCT 41.5 01/18/2023 HGB 13.4 (L) 01/18/2023 HGBA1C 6.6 (H) 01/06/2023 MG 2.4 01/13/2023 PHOS 3.5 01/07/2023 PLT 172 01/18/2023 K 4.8 01/18/2023 NA 136 01/18/2023 TRIG 110 01/06/2023 WBC 6.08 01/18/2023 Diagnostic Studies I have reviewed the patient's relevant imaging. MRI & CT Studies: (last 6 months) CT Head Or Brain Without Contrast Final Result by Salas Goldstein MD (01/07/2023 [id number]) 1. Continued evolution of the area of infarction in the right posterior frontal and temporal lobe involving the operculum with findings consistent with petechial hemorrhage as noted on the prior examination consistent with laminar necrosis. A telephone call regarding the findings in the study was made to and acknowledged by Esha, the nurse practitioner, in the, in the [facility] at 6:20 a.m. on 01/07/2023. Workstation ID: [id number] CT Angiogram Brain With Perfusion Final Result by Salas Goldstein MD (01/06/2023 [id number]) 1. Improvement in the appearance of the intracranial vessels. Previously noted abnormality in the M2 segment of the right MCA is no longer visualized with patent appearance of the MCA bilaterally. Distal distributions appear symmetric. 2. Better visualization of the posterior circulation. Dominant V4 on the right with calcific plaquewithout flow-limiting stenosis. 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 The distal V4 segment on the left is not visualized. A telephone call regarding the findings in the examination was made to and acknowledged by Dr. Baltazar from neurology at 5:30 a.m. on 01/06/2023. Workstation ID: [id number] CT Head Without Contrast (Stroke) Final Result by Salas Goldstein MD (01/06/2023 [id number]) 1. Subtle low-density within the llamas radiata on the right. Early area of infarction not excluded. 2. Hyperdensity within the distal right MCA not as conspicuous as on the prior study. 3. Small vessel ischemic changes. 4. Atrophy. Workstation ID: [id number] CT Angiogram Head Neck (STROKE) Final Result by Salas Goldstein MD (01/06/2023 [id number]) 1. Calcific plaque in the carotid bifurcations bilaterally, worse on the left than the right. Thereis approximately 40-50% stenosis in the left carotid bifurcation. 2. Distal right MCA superior division occlusion as described above. 3. Right vertebral artery is dominant demonstrates diffuse calcific plaque with moderate to severe stenosis throughout the V1 and V2 segments. Additional high-grade stenosis with soft plaque is also seen in the proximal V4 segment.The left vertebral artery is diffusely hypoplastic. V4 segment on the left is occluded. There is faint contrast seen within the left PICA. A telephone call regarding the findings examination was made to and acknowledged by Dr. Baltazar from neurology at 3:20 a.m. on 01/06/2023. Workstation ID: [id number] CT Cervical Spine Without Contrast Final Result by Salas Goldstein MD (01/06/2023 [id number]) 1. Examination limited by patient positioning. 2. No gross evidence of fracture. 3. Multilevel cervical spondylosis. 4. Dense calcific plaque with stenosis in the visualized portion of the right vertebral artery. Workstation ID: [id number] ECG 12 Lead Result Date: 01/11/2023 Sinus rhythm with 1st degree AV block with occasional Premature ventricular complexes and Prematureatrial complexes Nonspecific ST abnormality Prolonged QT Abnormal ECG ECG Cart Interpretation - seephysician note for interpretation. Confirmed by Mahnaz Morales ([id number]) on 01/11/2023 3:04:[address] Head Or Brain Without Contrast Result Date: 01/07/2023 EXAMINATION: CT HEAD OR BRAIN WITHOUT CONTRAST HISTORY: F/U stroke, ? petechial hemorrhage Injury/Trauma or Illness?:Illness/Other How long have you had these symptoms (acute/chronic)?:Acute Reason for exam?:F/U stroke, ? petechial hemorrhage Type of Exam?:Subsequent/Follow-up Additional signs and symptoms?:F/U stroke, ? petechial hemorrhage I63.9 Acute ischemic stroke (HCC)Injury/Trauma or Illness?:Illness/Other How long have you had these symptoms (acute/chronic)?:AcuteF/U stroke, ? petechialhemorrhage COMPARISON: Head CT dated 01/06/2023 at 8:54 p.m.. CONTRAST: None. TECHNIQUE CT Head with axial, coronal and sagittal reformats. Dose reduction techniques were achieved by using automated exposure control and/or adjustment of mA and/or kV according to patient size and/or use of iterativereconstruction technique. FINDINGS: FINDINGS: POSTOPERATIVE CHANGES: None. BRAIN PARENCHYMA: There is low density now appreciated consistent with an evolving infarction in the region of the posteriorright frontal lobe and associated operculum. There is subtle hyperdensity within the cortex consistent with petechial hemorrhage. This is consistent with laminar necrosis. No midline shift or herniation is seen. There is patchy low-density in the white matter consistent with small vessel ischemic change in old lacunar infarctions are present in the centrum semiovale bilaterally. VENTRICLES/EXTRA-AXIAL SPACES: Ventricles and extraventricular spaces are within normal limits for patient's age. VESSELS: No hyperdense intraluminal thrombus. Vascular SINUSES/MASTOIDS:Thickening with cyst or polyp formation in the base of the left maxillary sinus. Erika bullosa bilaterally. S-shaped nasal septal deviation. Mastoids and middle ears are clear. MSK: No displaced or depressed calvarial fracture. OTHER: 1. Continued evolution of the area of infarction in the right posterior frontal and temporal lobe involving the operculum with findings consistent with petechial hemorrhage as noted on the prior examination consistent with laminar necrosis. A telephone call regarding the findings in the study was made to and acknowledged by Esha, the nurse practitioner, in the, in the [facility] at 6:20 a.m. on 01/07/2023. Workstation ID: [id number] CT Head Or Brain Without Contrast Result Date: 01/06/2023 EXAMINATION: CT Head without Contrast HISTORY: Stroke, follow up To be completed 18-30 hours after thrombolytic (alteplase, tenecteplase) initiated or intervention complete Radiology to call Neurology on-call with critical results. COMPARISON: CT head, 01/06/2023 TECHNIQUE: Multiple axial noncontrast images of the brain were obtained and reformatted according to the standard protocol. [facility] DOCUMENTATION: At least one of the following dose reduction techniques was utilized: Iterative reconstruction, and/or Automatic Exposure Control, and/or mA/kV adjustment based on body size. FINDINGS: Infarct/Vascular: There is a small area of evolving infarction within the posterolateral right frontal lobe and involving a portion of the posterior right insula. There is a small area of very subtle hyperdensity within the subinsular region which may represent a small area of petechial hemorrhage. Patchy areas of decreased attenuation throughout the supratentorial white matter are nonspecific but commonly associated chronic small vessel ischemic disease. Intracranial Mass: No evidence of intracranial mass. CSF Spaces: Mild generalized parenchymal atrophy. No change since prior exam. Calvarium and Scalp: Unremarkable. Mastoid Air Cells: Clear. Paranasal Sinuses and Orbits: Mild lobulated mucosal thickening along the alveolar recess of the left maxillary sinus. The orbits are unremarkable. There is a small evolving infarction within the posterolateral right frontal lobe and adjacent posterior right insula. There is very subtle hyperdensity within the subinsular region which may represent minimal petechial hemorrhage. Continued follow-up recommended. Workstation ID: [id number] XR Modifed Barium Swallow Result Date: 01/06/2023 EXAMINATION: XR MODIFIED BARIUM SWALLOW HISTORY: dysphagia Dx: I63.9 (Acute ischemic stroke (HCC)) Injury/Trauma or Illness?:Illness/Other How long have you had these symptoms (acute/chronic)?:Unknown CONTRAST: BARIUM SULFATE 40 % (W/V), 30% (W/W) ORAL PASTE - 1 Dose, BARIUM SULFATE 40 % (W/V), 30 % (W/W) ORAL SUSPENSION - 1 Dose, BARIUM SULFATE 81 % (W/W) ORAL POWDER - 1 Dose, FLUOROSCOPY DOSE: Ka,r mGy: Fluoro dose in Ka,r mGy: 4.41 TECHNIQUE: Modified barium swallow performed with speech therapy. 372 fluoroscopic images obtained. FINDINGS: The prevertebral soft tissues are normal. Oral phase: Moderately impaired. Pharyngeal phase: Mild to moderately impaired. Penetration: During swallowing with thin liquid and nectar. Aspiration: Aspiration occurred during swallowing with thin liquid. Mild to moderately impaired pharyngeal phase of swallowing with penetration and aspiration of thin liquid. Please see speech therapy recommendations Workstation ID: [id number] US Renal Only Result Date: 01/06/2023 EXAMINATION: RENAL ULTRASOUND, 01/06/2023 HISTORY: Dx: I63.9 (Acute ischemic stroke (HCC)) Injury/Trauma or Illness?:Illness/Other How long have you had these symptoms (acute/chronic)?:Unknown eval, CKD COMPARISON FILMS: None. FINDINGS: Static images from real-time examination using grayscale, color Doppler sonography are provided. The study overall is slightly limited due to overlying bowel gas.The kidneys measure as follows: Right kidney: 11.5 x 6.2 x 5.7 cm, volume 213.0 mL. Left kidney: 12.4 x 7.2 x 5.5 cm, volume 256.3 mL. There is an anechoic lesion in the upper pole of the right kidney measuring 0.9 x 1.2 x 1.0 cm. There is an anechoic lesion in the mid pole of the left kidney measuring 1.4 x 1.4 x 1.4 cm. These have thin cedeño, good through transmission. No other mass, hydronephrosis, nephrolithiasis or perinephric fluid collections. 1. Except for a simple cyst in the right as well as left kidney no acute process such as hydronephrosis. The kidneys are essentially normal. LACHELLE/rush Workstation ID: [id number] Echocardiogram complete w contrast Result Date: 01/06/2023 Patient Info Name: KEVIN WHITE Age: 82 years : 1940 Gender: Male Ht: 183 cm Wt: 112 kg BSA: 2.41 m2 HR: 69 bpm BP: 165 / 64 mmHg Technical Quality: Poor Exam Date: 01/06/2023 8:38 AM Patient Status: Inpatient Upscale Security Officer: Luis Sheryl RDCS, RVTExam Type: ECHOCARDIOGRAM COMPLETE W CONTRAST Study Info Indications G45.9 - Transient cerebral ischemic attack, unspecified Attending Physician: ELLEN SOTO Referring Physician: XOCHITL ARMOS. ; [id number] Primary Nurse: MINGLER OPERATOR BMI: 33.36 kg/m2 Summary 1. This study was technically limited, Definity IV contrast was used to enhance endocardial definition. 2. Left ventricular systolic func tion is normal with an ejection fraction by Biplane Method of Discs of 59 %. 3. And aortic bioprosthesis (27 mm Inspiris) appears well-seated, but is not well visualized. 4. There is no bioprostheticaortic valve stenosis with a peak velocity of 2.1 m/s, mean gradient of 10 mmHg, and aortic valve area of 1.8 cm2. 5. Left atrial chamber is mildly enlarged with a left atrial volume index of 41 ml/m2 by BP MOD. 6. Compared to the prior study from 11/13/2021, there is no significant interval change.History/Risk Factors Hypertension: Yes Dyslipidemia: Yes Diabetic Therapy: Oral Myocardial Infarction (TN): Yes Chronic Lung Disease: Yes Coronary Artery Disease (CAD) Yes Diabetes Mellitus: Yes COPD: Not Treated Tobacco Use: Never Cerebrovascular Disease: CVA Family History: Coronary Artery Disease Valve Disease - AV: Severe History/Risk Factors Patient has prior CABG on 08/12/2021. Prior Interventions Pacemaker: No PCI: Yes CABG: Yes Valve Surgery: Yes Type of Valve Surgery: AV Bioprosthetic Replacement ICD: No Date of CAB08/12/2021 Most Recent Valve Surgery: 08/12/2021 Transcatheter Intervention: HEATHER Closure Replacement Valve Size: 27 mm Inspiris Replacement Valve Size: 40mm atriclip Procedure(s): Complete two-dimensional, color flow and Doppler transthoracic echocardiogram is performed with contrast. Definity explained to patient. Patient verbalizes understanding and agrees to proceed. Definity 1.3ml/8.7ml normal sterile saline 2 ml total given IV over 30-60 seconds. Left Ventricle Left ventricular chamber dimension is normal. Left ventricular systolic function is normal with anejection fraction by Biplane Method of Discs of 59 %. Normal left ventricular mass. Left ventricular segmental wall motion is normal. There is normal diastolic function. E/e' average 11.9 is not elevated consistent with normal LA pressure. Right Ventricle Right ventricular chamber dimension is normal. Right ventricular systolic function is normal. Left Atria Left atrial chamber is mildly enlargedwith a left atrial volume index of 41 ml/m2 by BP MOD. Right Atria Right atrial chamber dimension is normal. Aortic Valve And aortic bioprosthesis (27 mm Inspiris) appears well-seated, but is not well visualized. There is no sclerosis of the bioprosthetic aortic valve leaflets. There is no regurgitation of the bioprosthetic aortic valve. There is no bioprosthetic aortic valve stenosis with a peakvelocity of 2.1 m/s, mean gradient of 10 mmHg, and aortic valve area of 1.8 cm2. Pulmonic Valve Thepulmonic valve is normal. There is no pulmonic valve stenosis. There is trace pulmonic regurgitation. Mitral Valve The mitral valve has normal leaflets. There is no mitral valve stenosis. Moderate mitral annular calcification. There is trace mitral valve regurgitation. Tricuspid Valve The tricuspidvalve leaflets are normal. There is no significant tricuspid valve stenosis. There is trace tricuspid valve regurgitation. There is no pulmonary hypertension, estimated right ventricle systolic pressure is 37 mmHg. Pericardium/Pleural The pericardium appears normal. There is no pericardial effusion. Inferior Vena Cava Normal inferior vena cava with >50% collapse upon inspiration consistent with normal right atrial pressure. Aorta The aortic measurements are indexed to age and body surface area. The aortic root is normal measuring 3.5 cm with an index of 1.4 cm/m2. The proximal ascending aorta is normal measuring 3.5 cm with an index of 1.4 cm/m2. Left Ventricular Outflow Tract Name Value Normal LVOT 2D LVOT Diameter 2.2 cm LVOT Doppler LVOT Peak Velocity 1.1 m/s LVOT Mean Gradient 1 mmHg LVOT VTI 20 cm LVOT VTI/AV VTI Ratio 0.5 LVOT Stroke Volume 78 ml LVOT Stroke Index 32.10 ml/m2 Pulmonic Valve --- Name Value Normal PV 2D RVOT Diameter (2D) 2.7 cm 1.7-2.7 PV Regurgitation Doppler ------- MA Peak Velocity 92.60 cm/s Mitral Valve Name Value Normal ------ MV Doppler MV Decel [place] 643 cm/s2 MV PHT 43 ms MV Area (PHT) 5.2 cm2 4.0-5.0 MV Diastolic Function MV E Peak Velocity 0.95 m/s MV A Peak Velocity 0.85 m/s MV E/A 1.1 MV Decel Time 147 ms MV Annular TDI MV Septal e' Velocity 6.7 cm/s >=8.0 MV E/e' (Septal) 14.1 <=8.0 MV Lateral e' Velocity 9.8 cm/s >=10.0 MV E/e' (Lateral) 9.7 <=8.0 MV e' Average 8.25 cm/s MV E/e' (Average) 11.9 Tricuspid Valve Name Value Normal TV Regurgitation Doppler TR Peak Velocity 2.90 m/s TR Peak Gradient 34 mmHg Estimated PAP/RSVP RA Pressure 3mmHg <=5 PA Systolic Pressure 37 mmHg <=36 RV Systolic Pressure 37 mmHg <36 Aorta --------- Name Value Normal Ascending Aorta Ao Root Diameter (2D) 3.5 cm 3.1-3.7 Ao Root Diam Index (2D) 1.4 cm/m2 1.5-1.9 Prox Asc Ao Diameter 3.5 cm 2.6-3.4 Prox Asc Ao Diameter Index 1.4 cm/m2 1.3-1.7 Venous Name Value Normal ------ IVC/SVC IVC Diameter (Exp 2D) 2.0 cm <=2.1 Aortic Valve ----- Name Value Normal AV Doppler AV Peak Velocity 2.1 m/s AV Mean Gradient 10 mmHg AV VTI 44 cmAV Area (Cont Eq VTI) 1.8 cm2 AV Area Index (Cont Eq VTI) 1 cm2/m2 AV Area (Cont Eq Clemente) 1.9 cm2 AVArea Index (Cont Eq Clemente) 1 cm2/m2 LVOT Vmax/AV Vmax 0.50 LVOT VTI/AV VTI Ratio 0.5 AV [id number] LVOT Area 3.8 cm2 Ventricles Name Value Normal -------- LV Dimensions 2D/MM IVS Diastolic Thickness (2D) 1.8 cm 0.6-1.0 LVID Diastole (2D) 4.9 cm 4.2-5.8 LVIW Diastolic Thickness (2D) 1.3 cm 0.6-1.0 LVID Systole (2D) 4.0 cm 2.5-4.0 LVOT Diameter 2.2 cm LV Mass (2D Cubed) 328.70 g 88.00-224.00 LV Mass Index (2D Cubed) 136 g/m2 49-115 Relative Wall Thickness (2D) 0.53 <=0.42 LV Fractional Shortening/Ejection [id number]/MM LV Fractional Shortening (2D) 18 % 25-43 LV EF (2D Teicholz) 38 % 52-72 LV Diastolic Volume (4C MOD) 142 ml LV Systolic Volume (4C MOD) 61 ml LV EF (4C MOD) 57 % LV Diastolic Volume (2C MOD) 130 ml LV Systolic Volume (2C MOD) 50 ml LV EF (2C MOD) 61 % LV Diastolic Volume (BP MOD) 141 ml 62-150 LV Diastolic Volume Index (BP MOD) 58 ml/m2 34-74 LV Systolic Volume (BP MOD) 58 ml 21-61 LV Systolic Volume Index (BP MOD) 24 ml/m2 11-31 LV EF (BP MOD) 59 % 55-70 LV Diastolic Length (4C) 8.7 cm LV Systolic Length (4C) 7.9 cmLV End Diastolic Volume (BP A-L) 140 ml LV End Systolic Volume (BP A-L) 58 ml LV EF (BP A-L) 59 % LV Stroke Volume (4C MOD) 81 ml LV SI (4C MOD) 33.58 ml/m2 RV Dimensions 2D/MM RV Basal Diastolic Dimension 3.8 cm 2.5-4.1 RV Mid-Cavity Diastolic Dimension 3.4 cm 1.9- 3.5 RV Systolic Function RV s' Velocity 0.09 m/s 0.10-0.19 Atria Name Value Normal LA Dimensions LA Dimension (2D) 3.9 cm 3.0-4.1 LA Dimen Index (2D) 1.6 cm/m2 LA Area (4C) 29.1 c m2 LA Length (4C) 7.3 cm LA Area (2C) 24.7 cm2 LA Length (2C) 5.9 cm LA Volume (4C MOD) 95 ml LA Volume (2C MOD) 82 ml LA Volume (4C A-L) 98 ml LA Volume (2C A-L) 88 ml LA Volume (BP A-L) 103 ml LA Volume Index (BP A-L) 43 ml/m2 <=34 LA Volume (BP MOD) 98 ml LA Volume Index (BP MOD) 41 ml/m2 16-34 RA Dimensions RA Systolic Major Winston Length (4C) 5.93 cm <=5.30 RA Area (4C) 23.0 cm2 <=18.0 RA Area (4C) Index 10 cm2/m2 RA ESV (4C MOD) 71 ml 18-32 RA ESV Index (4C MOD) 29 ml/m2 <=32 Report Signatures Finalized by Radha Lawler MD on 01/06/2023 10:39 AM LA Pressure: normal CT Angiogram Brain With Perfusion Result Date: 01/06/2023 EXAMINATION: CT ANGIOGRAM BRAIN WITH PERFUSION HISTORY: r mca syndrome Injury/Trauma or Illness?:Illness/Other How long have you had these symptoms (acute/chronic)?:Acute Reason for exam?:r mca syndrome Type of Exam?:Initial Additional signs and symptoms?:r mca syndrome I63.9 Acute ischemic stroke ( HCC)Injury/Trauma or Illness?:Illness/Other How long have you had these symptoms (acute/chronic)?:Acuter mca syndrome COMPARISON: Head CT and CT angiogram performed at [facility] dent dated 01/06/2023 at 2:[address] dated 01/06/2023 at 4:39 a.m.. TECHNIQUE: CT angiogram of the head was performed. Coronal, sagittal and 3-D reformats were created and reviewed. Dose reduction techniques were achieved by using automated exposure control and/or adjustment of mA and/or kV according to patient size and/or use of iterative reconstruction technique CONTRAST: Isovue 370 FINDINGS: BRAIN: Perfusion images demonstrate 0 mL volume of hypoperfusion with T-max greater than 6 seconds and 0 mLvolume of core infarction with cerebral of flow less than 30%. ANTERIOR CIRCULATION:The intra petrous, intra cavernous, and supraclinoid ICA are patent. LILI patent bilaterally. MCA patent bilaterally. No large vessel occlusion or thrombus. No aneurysm. Distal distributions now appear symmetric. POSTERIOR CIRCULATION: Dominant right V4 segment demonstrates calcific plaque without flow-limiting stenosis. 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 No distal V4 segment is seen. This is hypoplastic or occluded. Basilar artery is patent. Basilar tip is patent. SCA and [employer] patent. Distal [employer] distributions are symmetric. 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 This is better visualized as compared to the prior study. OTHER: No pathologic enhancing lesions are seen. 1. Improvement in the appearance of the intracranial vessels. Previously noted abnormality in the M2 segment of the right MCA is no longer visualized with patent appearance of the MCA bilaterally. Distal distributions appear symmetric. 2. Better visualization of the posterior circulation. Dominant V4 on the right with calcific plaque without flow-limiting stenosis. 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 The distal V4 segment on the left is not visualized. A telephone call regarding the findings in the examination was made to and acknowledged by Dr. Baltazar from neurology at 5:30 a.m. on 01/06/2023. Workstation ID: [id number] CT Head Without Contrast (Stroke) Result Date: 01/06/2023 EXAMINATION: CT HEAD WITHOUT CONTRAST (STROKE) HISTORY: r mca syndrome Injury/Trauma or Illness?:Illness/Other How long have you had these symptoms (acute/chronic)?:Acute Reason for exam?:r mca syndrome Type of Exam?:Initial Additional signs and symptoms?:r mca syndrome Injury/Trauma or Illness?:Ill ness/Other How long have you had these symptoms (acute/chronic)?:Acuter mca syndrome COMPARISON: Head CT dated 01/06/2023 at 1:[address] angiogram of the head and neck dated 01/06/2023 at 2:33 a.m.. CONTRAST: None. TECHNIQUE CT Head with axial, coronal and sagittal reformats. Dose reduction techniques were achieved by using automated exposure control and/or adjustment of mA and/or kV according to patient size and/or use of iterative reconstruction technique. FINDINGS: FINDINGS: POSTOPERATIVE CHANGES: None. BRAIN PARENCHYMA: There is very subtle hypodensity present within the llamas radiata on the right, image 31/series 7. No intraparenchymal or extra-axial hemorrhage. No mass effect. No midline shift or herniation. Patchy low-density in the white matter also noted consistent with small vessel ischemic change. VENTRICLES/EXTRA-AXIAL SPACES: Enlarged, consistent with atrophy. VESSELS: The subtle hyperdensity previously noted in the right MCA is less conspicuous, image 18/series 7. Vascular calcifications are noted. Please refer to the CT angiogram report. SINUSES/MASTOIDS:Visualizedsinuses are clear. Erika bullosa bilaterally. Nasal septal deviation to the right with spur formation. Mastoids and middle ears are clear. MSK: No displaced or depressed calvarial fracture. OTHER: 1. Subtle low-density within the llamas radiata on the right. Early area of infarction not excluded. 2. Hyperdensity within the distal right MCA not as conspicuous as on the prior study. 3. Small vessel ischemic changes. 4. Atrophy. Workstation ID: [id number] XR Chest 1 View Result Date: 01/06/2023 EXAMINATION: XR CHEST PA/AP HISTORY: ORDERING SYSTEM PROVIDED HISTORY: Large stroke, mechanical fall, TECHNOLOGIST PROVIDED HISTORY: Illness/Other Reason for exam: stroke, mechanical fall Cancer History: u Surgery, RadiationHistory: u Encounter Type: Initial Additional signs and symptoms: . ORDERING SYSTEM PROVIDED DIAGNOSIS CODES: I63.9 Acute ischemic stroke (HCC) N28.9 Renal insufficiency COMPARISON: PA and lateral views of the chest dated 09/25/2021. TECHNIQUE: AP semi-erect portable chest radiograph performed. FINDINGS: Stable median sternotomy wires, mediastinal surgical clips, valve replacement and left atrial appendage clip. The trachea is midline. Stable mild prominence of the cardiomediastinal silhouette and stable mild atheromatous calcification at the aortic arch. Mild elevation of the right hemidiaphragm. There is no consolidation or infiltrates. There is no pleural effusionor pulmonary vascular congestion. There is no pneumothorax. The bony structures are osteopenic. There is no acute osseous abnormality. There is no acute cardiopulmonary process. Workstation ID: [id number] CT Angiogram Head Neck (STROKE) Result Date: 01/06/2023 EXAMINATION: CT ANGIOGRAM HEAD NECK (STROKE) HISTORY: LAMS of 5, appears to have a large clot. Toldby the stroke neurologist Dr. Raúl Baltazar to proceed with CTA at this time since there is a delay for ground transportation.; stroke alert, LAMS=5 Injury/Trauma or Illness?:Illness/Other How long have you had these symptoms (acute/chronic)?:Acute Reason for exam?:stroke alert, LAMS=5 Type of Exam?:Initial Additional signs and symptoms?:LKW: 0000 01/06/23 I63.9 Acute ischemic stroke (HCC)Injury/Trauma or Illness?:Illness/Other How long have you had these symptoms (acute/chronic)?:AcuteLAMS of5, appears to have a large clot. Told by the stroke neurologist Dr. Raúl Baltazar to proceed with CTA at this time since there is a delay for ground transportation.; stroke alert, LAMS=5 COMPARISON:Head CT dated 01/06/2023 at 1:46 a.m.. TECHNIQUE: CT angiogram of the head and neck was performed. Coronal, sagittal and 3-D reformats were created and reviewed. Carotid stenosis measurements were made according to the NASCET criteria. Dose reduction techniques were achieved by using automated exposure control and/or adjustment of mA and/or kV according to patient size and/or use of iterative reconstruction technique CONTRAST: 75 mL of Isovue 370 FINDINGS: NECK: AORTIC ARCH: Calcific plaque in the aortic arch. Allowing for streak artifacts, the origins the great vessels are patent. ANTERIOR CIRCULATION:Common carotid arteries are patent. There is calcific plaque in the carotid bifurcations.No flow-limiting stenosis is present on the right. On the left, there is approximately 45-50% stenosis. Cervical ICA are patent up to the skull base allowing for artifacts from dental work. POSTERIORCIRCULATION: There is diffuse calcific plaque noted in the origin, V1, and V2 segments of the right vertebral artery. There is moderate to severe stenosis present. The right vertebral artery is the dominant vessel. 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 DEVELOPMENTAL ANOMALIES: None. OTHER: No thyroid nodule or adenopathy. HEAD BRAIN: Please see the separate dictation of the head CT. ANTERIOR CIRCULATION: The intra petrous, intra cavernous, and supraclinoid ICA are patent with calcific plaque associated with mild to moderate stenosis in the intra cavernous and supraclinoid portions. Intracranial termini are patent. ACApatent bilaterally. Left MCA is patent. On the right, there is occlusion of the distal V2 segment of the superior division right MCA, image 54/series 12 and image 79/series 13. This is partially obscured on the axial images but appears to be present on image 40/series 14. Distal distributions appear symmetric. No large vessel occlusion or aneurysm. POSTERIOR CIRCULATION: Calcific plaque in the V4 segment of the right vertebral artery with short segment high-grade stenosis of the junction of V3 and V4 segments on the right. Calcific plaque is seen beyond the stenosis. Origin of the PICA is patent on the right. Left vertebral artery is occluded at the junction of V3 and V4 segments. Contrast is seen within the PICA on the right with fate contrast seen on the left. Basilar artery is patent. SCA patent. [employer] patent. Distal [employer] distributions are symmetric. No large vessel occlusion is seen involving the [employer]. There is mild stenosis in the P1 segment on the left. DEVELOPMENTAL ANOMALIES: None. OTHER: No pathologic enhancing lesions are seen. This study is not optimized for evaluation of theintracranial veins. 1. Calcific plaque in the carotid bifurcations bilaterally, worse on the left than the right. Thereis approximately 40-50% stenosis in the left carotid bifurcation. 2. Distal right MCA superior division occlusion as described above. 3. Right vertebral artery is dominant demonstrates diffuse calcific plaque with moderate to severe stenosis throughout the V1 and V2 segments. Additional high- grade stenosis with soft plaque is also seen in the proximal V4 segment. The left vertebral artery is diffusely hypoplastic. V4 segment on the left is occluded. There is faint contrast seen within the left PICA. A telephone call regarding the findings examination was made to and acknowledged by Dr. Baltazar from neurology at 3:20 a.m. on 01/06/2023. Workstation ID: [id number] CT Cervical Spine Without Contrast Result Date: 01/06/2023 EXAMINATION: CT CERVICAL SPINE WITHOUT CONTRAST HISTORY: Patient with unwitnessed mechanical fall into the bathtub. No complains of neck pain but elderly and with large stroke. Injury/Trauma or Illness?:Injury/Trauma How long have you had these symptoms (acute/chronic)?:Acute Reason for exam?:denies neck pain, fall from standing into bathtub Type of Exam?:Initial Mechanism of injury?:fall I63.9 Acute ischemic stroke (HCC)Injury/Trauma or Illness?:Injury/Trauma How long have you had these symptoms (acute/chronic)?:AcutePatient with unwitnessed mechanical fall into the bathtub. No complains of neck pain but elderly and with large stroke. COMPARISON: None available at time of dictation. TECHNIQUE: CT imaging of the cervical spine was performed. The patient is suboptimally positioned. Dose reduction techniques were achieved by using automated exposure control and/or adjustment of mA and/or kV according to patient size and/or use of iterative reconstruction technique. CONTRAST: None. FINDINGS: COMPRESSION FRACTURES: No fracture or vertebral body collapse. No bony displacement. No asymmetric widening of the facets. There is nonspecific straightening of the normal cervical curve. PREVERTEBRAL SOFT TISSUES: Normal. CRANIOCERVICAL JUNCTION:There is a normal relationship of the occipital condyles, lateral masses of C1, and articular surfaces of C2. The base of the dens and body of C2 are intact. There is narrowing of the predental space with sclerosis and spurring arising from the anterior arch of C1 and the dens. POSTERIOR FOSSA: Cerebellar tonsils are above the foramen magnum. Disc levels: C2-C3: No disc herniation. No spinal canal or foraminal narrowing. C3- C4: Disc space narrowing. Central disc osteophyte complex with moderate central canal stenosis. Uncovertebral joint degeneration and facet degeneration. Moderate bilateral foraminal stenosis. C4-C5: Disc space narrowing posteriorly. Central disc osteophyte complex. Mild central canal stenosis. Neural foramina patent. C5-C6: No focal disc herniation or bulging. Bilateral facet degeneration with uncovertebral joint degeneration worse on the left than the right. Moderate left foraminal stenosis. C6-C7: Disc space narrowing. Central and left- sided disc osteophyte complex with mild to moderate central canal stenosis. M oderate bilateral foraminal stenosis. C7-T1: Beam hardening artifacts. Bony canal is patent. There is subtle loss of height in concave appearance of the superior endplate of T1. No cortical disruption is seen. This is consistent with a indeterminate age mild superior endplate compression fracture. Correlation with MRI would be recommended. Central canal patent. Neural foramina patent. UPPER THORACIC SPINE: At T1-T2, central canal and neural foramina patent. Beam hardening artifacts are present.OTHER: No thyroid nodule or adenopathy. There is dense calcific plaque noted throughout the visualized portion of the right vertebral artery. 1. Examination limited by patient positioning. 2. No gross evidence of fracture. 3. Multilevel cervical spondylosis. 4. Dense calcific plaque with stenosis in the visualized portion of the right vertebral artery. Workstation ID: [id number] CT Head Without Contrast (Stroke) Result Date: 01/06/2023 EXAMINATION: CT HEAD WITHOUT CONTRAST (STROKE) HISTORY: ORDERING SYSTEM PROVIDED HISTORY: Acute ischemic stroke (HCC), TECHNOLOGIST PROVIDED HISTORY: Illness/Other Reason for exam: left facial droop,left arm weakness Encounter Type: Initial Additional signs and symptoms: LKW: 0000 01/06/23 ORDERING SYSTEM PROVIDED DIAGNOSIS CODES: I63.9 Acute ischemic stroke (HCC) COMPARISON: None TECHNIQUE: CT examination of the head without IV contrast. Dose reduction techniques were achieved by using automated exposure control and/or adjustment of mA and/or kV according to patient size and/or use of iterative reconstruction technique. FINDINGS: Hyperattenuation is noted in the M2 segment of the right MCA, suspicious for thrombus. The ventricles, sulci, and basilar cisterns are mildly prominent, consistent with mild generalized cerebral volume loss/atrophy, appropriate for the patient's age. Mild hypoattenuation is noted in the periventricular white matter of the frontal lobes, consistent with chronic small vessel ischemic changes. A couple of small old lacunar infarcts are also suspected in the bilateral centrum semiovale white matter (axial series 5, image 37). The brain parenchyma appears otherwise normal. Atherosclerotic calcifications are noted in the distal internal carotid arteries. Nointracranial hemorrhage, abnormal mass effect, or definite CT signs of acute infarct. The visualized paranasal sinuses and mastoid air cells are clear. No acute fracture is seen. The impression was called to Dr. Kamilah Ramos at the time dictation on 01/06/2023 at 2:01 a.m. 1. Hyperattenuation in the M2 segment of the right MCA, suspicious for thrombus. 2. No other acute intracranial abnormality is seen. MRI is more sensitive than CT for the detection of acute infarct. 3. Mild chronic small vessel ischemic changes in the periventricular white matter, and a couple small old lacunar infarcts. Workstation ID: [id number] Signed: Shahrzad Odom DO Physical Medicine & Rehabilitation * Shahrzad Odom DO - 01/15/2023 4:02 PM EST HISTORY & PHYSICAL Physical Medicine & Rehabilitation [facility] Acute Inpatient Rehabilitation H&P 01/15/2023 Patient Name: Kevin White Date of : 1940 (82 y.o.) Primary Care Physician: Moi Gibson MD Date of Admission: 01/15/2023 Assessment & Plan Debility 2/2 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 -01/06 VIANEY: normal EF 59%, well-seated AVR, LA dilation. -01/07 CTH: evolution of acute R MCA CVA with petechial hemorrhage -LDL 66, A1c 6.6 -Neurology followed on medical floor -Started ASA and transitioned to eliquis 01/11/23 -Transferred to [facility] on 01/15/23 -Atorvastatin 40mg daily -Eliquis 5mg BID -Initiate comprehensive rehab plan to include PT/OT/ACADEMIC SERVICES PROFESSIONAL Situational depression -01/15 Started Prozac 20mg daily titrate as tolerated Dysphagia -Chopped/ NDD3, chopped meats, Thin liquids -MBS when appropriate -Speech following Oral candidiasis -Nystatin swish and swallow Chronic HFpEF CAD s/p CABG x3 (07/2021) Hypertension A. Fibrillation s/p cardioversion/MAZE/LA clipping -Norvasc 10mg daily -Eliquis 5mg BID -Tikosyn 250mcg q12 -Lasix 20mg daily -Lisinopril 10mg daily Hypothyroidism -Levothyroxine 175mcg daily Type 2 DM with hyperglycemia -A1c 6.6 -Carb controlled diet -Accuchecks QID -Insulin SSI for coverage AJAY on CKD -Unclear stage. Admission on medical floor C 1.4 ->0.9 -01/14 Cr 1.6. s/p gentle hydration -Continue to monitor Thrombocytopenia -Baseline plts low-normal ~150 -01/07 Plts 91 -Bleeding risk Pain management -PRN Tylenol Bladder BPH -Admission UA/cx -Bladder scans and ISC if indicated -Flomax 0.4mg daily Bowels -Monitor for regular BMS -Senna-s 1 tab BID -Miralax daily DVT prophylaxis -Eliquis 5mg BID GI prophylaxis -Protonix 40mg daily Nutrition -Mag Ox 400mg daily -B-12 1000mcg daily -MVI daily Obesity -BMI: 31.69 -Encourage diet modification, active lifestyle, and weight reduction. Discharge Barriers: Mobility, ADL, Self Care Impairment: Intensive PT/OT Decreased Endurance: Intensive PT/OT Skin: Turn every 2 hours, monitor for skin breakdown per rehabilitation nursing Nutritional Status: Nutrition Consult Pulmonary Rehabilitation: Encourage incentives spirometry and deep breathing exercises Left Hemiparesis: Intensive PT/OT Dysphagia, Dysarthria, Aphasia, and Cognitive Deficits: Speech evaluation Diet - The patient is asked to make an attempt to improve diet and exercise patterns to aid in medical management of this problem. DVT prophylaxis - Eliquis Precautions - fall, aspiration Follow-ups - Stroke Prevention Clinic - PCP Consulted internal medicine to monitor co-morbidities during rehab. Patient requires frequent management by consulting physicians not available in a lower level of care and frequent lab monitoring. On admission, I (inpatient rehabilitation facility physician) completed the medication reconciliation, and no issues were found. Description of Current Medical Status: Medical/Functional Exam: Please see below Rehabilitation Diagnosis: As above Current & Prior Comorbid Conditions: Please see problem list above Current and Prior Level of Function: Please see below Status Compared to Pre-Admission: There are no clinically significant differences between the patient's current medical and functional status as documented in the preadmission screen. Please see current functional status and hospital course/medical management. Treatment Plan: Disciplines Required: Physical Therapy, Occupational Therapy, Speech Therapy, Case Management/Social Work, and Nursing Specialized in Rehabilitation Intensity of Services: At least 3 hours per day, 5 days a week Functional Goals: improve independence with regard to mobility, ADLs, cognition, communication, andswallowing Medical Goals: Medically stable for home discharge Special/Safety Considerations: Fall risk and Bleeding precautions There are no special or safety considerations that would likely preclude immediate implementation of an intensive rehabilitation program (intensity as stated above) or substantially influence plan ofcare. Risk of Complications: Patient is High Risk For: Falls, Skin breakdown, Dehydration and malnourishment, Atelectasis, Bleeding, Constipation/ileus, Urinary retention with acute kidney injury, Hypotension/hypertension, DVT/PE, and Cardiac Event Discharge Barriers: Functional deficits and medical stability Patient requires medical monitoring and management of comorbidities and/or hospital complications Patient requires Nursing Specialized in Rehabilitation to Monitor: Bowel and Bladder Care, Neurologic Assessment, and Frequent Pain or Palliative Assessment Psychosocial Considerations: Safe home discharge plan Attestation: Considering all of the information above, it is my best judgment that this patient requires an intensive rehabilitation multidisciplinary program as previously described due to the necessity of medical management, rehabilitation needs, and complexity of nursing care under the supervision of a rehabilitation physician (patient requires at least 3 rehab physician visits per week). It can be reasonably expected that patient will participate in and benefit from a multidisciplinary team approach to maximize functional independence that is best served with acute inpatient rehabilitation as opposed to lower level of care. The teams needed are: Rehabilitation Nursing for medication management, bowel/bladder care, skin care, and respiratory care Physical Therapy for strengthening, endurance, mobility, gait and balance training, ROM, ADL's, andpatient/family training Occupational Therapy for strengthening, endurance, mobility, gait and balance training, ROM, ADL's,and patient/family training Speech Therapy for cognition, swallow evaluation and therapy, and communication Social Work for integrated social support and discharge planning Estimated Length of Stay: 10-14 days Discharge Destination: home Rehab Prognosis: Good Chief Complaint Weakness History of Present Illness Date of Admission: 01/15/2023 Informant(s): Patient, Care Team / Chart History of Present Illness: Kevin White is a 82 y.o. male with PMH of CAD, AFIB s/p cardioversion/MAZE/LA clipping, CHF, IDDM type 2, who presented to [facility] on 01/06/2023 from [facility] with left sided weakness and garbled speech, s/p OL tPA. Admitted to [facility] & found to have acute R MCA CVA. 01/06 CTA H/N: distal R MCA occlusion s/p TPA. CT brain perfusion after TPA with improved perfusion, noted hypoplastic L V4. 12/17 2 VIANEY: normal EF 59%, well-seated AVR, LA dilation. 01/07 CTH: evolution of acute R MCA CVA with petechial hemorrhage. LDL 66, A1c 6.6 . Speech followed pt and rec Chopped/ NDD3, chopped meats, Thin liquids. Noted to have AJAY on CKD. Unclear stage. Admission on medical floor C 1.4 ->0.9.01/14 Cr1.6. s/p gentle hydration. Started ASA and transitioned to eliquis 01/11/23. Seen by PT, OT, Speechwho recommended IPR level rehab. Transferred to [facility] on 01/15/23 PT reports doing well. +Dysarthria but intelligible. Denies RAMSEY, change in vision, CP, SOB, N/V. He became tearful discussing deficits from CVA. Reports having a difficult time sleeping. Eating fair. Review of Systems General: - fever, - chills HEENT: - headache, - vision changes Resp: - shortness of breath, - cough Cardiac: - chest pain, - leg swelling GI: - constipation, - nausea : - urinary retention, - urinary incontinence MSK: - joint pain, - joint swelling Neuro: - confusion,+weakness Psychological: - depression, - anxiety Skin: - rashes, - wounds Allergies I have reviewed the patient's allergies. Patient has no known allergies. Medications I have reviewed the patient's medication list and performed a complete reconciliation. Home Medications: Prior to Admission medications Medication Sig Start Date End Date Taking? Authorizing Provider amLODIPine (NORVASC) 10 MG tablet Take 1 (one) tablet (10 mg total) by mouth daily . 01/08/23 02/07/23 Elier Mejia MD apixaban (ELIQUIS) 5 mg Tab Take 1 (one) tablet (5 mg total) by mouth 2 (two) times a day . 01/08/23 Elier Mejia MD cyanocobalamin (B-12) 1000 MCG tablet Take 1 (one) tablet (1,000 mcg total) by mouth daily . ProviderAnastacia MD dofetilide (TIKOSYN) 250 MCG capsule Take 1 (one) capsule (250 mcg total) by mouth every 12 (twelve) hours . 01/05/23 Ira Ricci, RAFAEL esomeprazole (NEXIUM) 40 MG capsule Take 1 (one) capsule (40 mg total) by mouth every morning before breakfast . ProviderAnastacia MD furosemide (LASIX) 20 MG tablet Take 1 (one) tablet (20 mg total) by mouth daily . 01/15/23 Sarah Mabry, levothyroxine (SYNTHROID, LEVOTHROID) 175 MCG tablet Take 1 (one) tablet (175 mcg total) by mouth daily . Anastacia Randle MD lisinopriL (PRINIVIL,ZESTRIL) 10 MG tablet Take 1 (one) tablet (10 mg total) by mouth daily with lunch Start: 08/25/21. 08/25/21 Mary Monaco CNP magnesium oxide (MAG-OX) 400 mg (241.3 mg magnesium) tablet Take 1 (one) tablet (400 mg total) by mouth daily Start: 01/09/23. 01/09/23 02/08/23 Elier Mejia MD metFORMIN (GLUCOPHAGE-XR) 500 MG 24 hr tablet Take 1 (one) tablet (500 mg total) by mouth 2 (two) times a day . Anastacia Randle MD potassium chloride SA (K-DUR,KLOR-CON) 20 MEQ tablet Take 1 (one) tablet (20 mEq total) by mouth daily . 01/15/23 Sarah Mabry DO rosuvastatin (CRESTOR) 20 MG tablet Take 1 (one) tablet (20 mg total) by mouth nightly . Anastacia Randle MD tamsulosin (FLOMAX) 0.4 mg capsule Take 1 (one) capsule (0.4 mg total) by mouth daily . Anastacia Randle MD therapeutic multivitamin (THERAGRAN) tablet Take 1 (one) tablet by mouth daily . Anastacia Randle MD traZODone (DESYREL) 50 MG tablet Take 0.5 (one-half) tablet (25 mg total) by mouth nightly as needed . Anastacia Randle MD aspirin 81 MG EC tablet Take 1 (one) tablet (81 mg total) by mouth daily for 2 doses Start: 01/09/23. 01/09/23 01/15/23 Elier Mejia MD atorvastatin (LIPITOR) 40 MG tablet Take 1 (one) tablet (40 mg total) by mouth nightly . 01/08/23 01/15/23 Elier Mejia MD furosemide (LASIX) 20 MG tablet Take 2 (two) tablets (40 mg total) by mouth daily . 09/25/21 01/15/23Ira Meyers CNP insulin glargine (Lantus Solostar U-100 Insulin) 100 unit/mL (3 mL) InPn Inject 5 (five) Units under the skin nightly . 01/08/23 01/15/23 Elier Mejia MD potassium chloride SA (K-DUR,KLOR-CON) 20 MEQ tablet Take 1 (one) tablet (20 mEq total) by mouth daily . 09/25/21 01/15/23 Ira Meyers CNP Current HOSPITAL Medications: Scheduled Meds: Continuous Infusions: PRN Meds: Past Medical History Past Medical History: Diagnosis Date Arthritis Back pain CHF (congestive heart failure) (HCC) COPD (chronic obstructive pulmonary disease) (HCC) Coronary artery disease Diabetes mellitus (HCC) Diabetes mellitus, type 2 (HCC) Disease of thyroid gland GERD (gastroesophageal reflux disease) Hernia of abdominal wall Hyperlipidemia Hypertension Myocardial infarction (HCC) Sleep apnea, obstructive refuses to use c-pap Stroke (HCC) Past Surgical History Past Surgical History: Procedure Laterality Date CABG AVR W/ MAZE Bilateral 08/12/2021 Procedure: CORONARY ARTERY BYPASS GRAFT TIMES THREE (krueger-lad, svg-d1, svg- drca)WITH ENDOVEIN HARVEST, Aortic valve replacement (27mm Paul Inspiris), full LA MAZE ([employer]compass RFA box, RFA HEATHER, cryoRA caval and RAA line), LEFT ATRIAL APPENDAGE LIGATION (40mm AtriCLIP), TRANSESOPHAGEAL ECHOCARDIOGRAM; Surgeon: Luis Beasley MD; Location: [facility] NEURO OR; Service: Cardiothoracic CARDIAC CATHETERIZATION CARDIAC CATHETERIZATION Bilateral 07/01/2021 No intervention, right radial CARDIAC CATHETERIZATION N/A 07/01/2021 Procedure: Coronary Angiogram; Surgeon: Shmuel Villalpando MD; Location: [facility]; Service: Cardiovascular CARDIAC CATHETERIZATION N/A 07/01/2021 Procedure: Right Heart Cath; Surgeon: Shmuel Villalpando MD; Location: [facility]; Service: Cardiovascular CARDIAC CATHETERIZATION N/A 07/01/2021 Procedure: Left Ventriculogram; Surgeon: Shmuel Villalpando MD; Location: [facility]; Service: Cardiovascular CARDIAC CATHETERIZATION N/A 07/01/2021 Procedure: Left Heart Cath; Surgeon: Shmuel Villalpando MD; Location: [facility]; Service: Cardiovascular cataracts removed Bilateral CORONARY STENT PLACEMENT EP - INTERVENTION N/A 08/24/2021 Procedure: Cardioversion/CTA; Surgeon: Abhishek Lauren MD; Location: [facility] EP LAB; Service: Cardiovascular HERNIA REPAIR W/HYDROCELE Right Family History Family History Problem Relation Age of Onset Heart disease Father Social History Social History: Home Living Obtained Home Living and PLOF info from: Patient Lives With: Spouse Type of Home: House Home Layout: Two level, Bed and full bath upstairs, 1/2 bath on main level Steps to enter home: Yes Rails to enter home: 2 rails Number of stairs to enter home: 5 Bathroom Shower/Tub: Walk-in shower Bathroom Toilet: Standard Bathroom Equipment: Shower chair, Grab bars in shower Mobility Equipment: Wheeled walker, Cane Additional Objective Details - Home Livin) AD used at baseline Prior Level of Function Level of Bishop - Transfers/Ambulation/Mobility: Independent with functional transfers, Independent with household ambulation, Independent with community ambulation Level of Bishop - ADLs: Independent Level of Bishop - Homemaking: Independent Driving: Patient drives Functional History: Functional Assessment Bladder Continence Pre-Hospital Bladder Continence: (presumed continent) Current Bladder Continence: (presumed ontinent) Medication: Yes Medication Type: Flomax Bowel Continence Date of Last BM: 01/12/23 Pre-Hospital Bowel Continence: (presumed continent) Current Bowel Continence: (presumed Coninent) Bowel Medication: Yes Medication Type: Miralax, Senna S Prior Functioning Everyday Activities Self Care: 3 - Independent Indoor Mobility (Ambulation): 3 - Independent Stairs: 3 - Independent Functional Cognition: 3 - Independent Prior Device Use Manual W/C: No Motorized W/C or Scooter: No Mechanical Lift: No Walker: No Orthotics/Prosthetics: No Functional Issues Balance: sitting static and dynamic - supervision , standing static SB dynamic CG Strength: moderate Range of Motion: limited all ectrm Non-FIM Functional Assessment Eating Pre-Morb: Independent Now: Min. Assist/Contact Guard Goal: Independent Grooming/Hygiene Pre-Morb: Independent Now: Min Assist/Contact Guard Goal: Independent Upper Ext Dressing Pre-Morb: Independent Now: Not Evaluated Goal: Independent Lower Ext Dressing Pre-Morb: Independent Now: Min Assist/Contact Guard Goal: Independent Bladder Management Pre-Morb: Independent Now: Min Assist/Contact Guard Goal: Independent Bowel Management Pre-Morb: Independent Now: Min Assist/Contact Guard Goal: Independent Bed Mobility Pre-Morb: Independent Now: Supervision (hand rails) Goal: Independent Supine-Sit Pre-Morb: Independent Now: Supervision (hand rails) Goal: Independent Sit-Stand Pre-Morb: Independent Now: Min Assist/Contact Guard Goal: Independent Transfer Pre-Morb: Independent Now: Min Assist/Contact Guard Goal: Independent Toilet Transfer Pre-Morb: Independent Now: Min Assist/Contact Guard Goal: Independent Ambulation Pre-Morb: Independent Now: Min Assist/Contact Guard Goal: Independent Expression Pre-Morb: Independent Now: Independent Goal: Independent Memory Pre-Morb: Independent Now: Min Assist/Contact Guard Goal: Independent Completed Therapy Evaluations Therapy: PT, OT, ACADEMIC SERVICES PROFESSIONAL Physical Exam There were no vitals taken for this visit. General: no acute distress, awake, conversant. + Dysarthria. Mild left facial droop HEENT: EOMI grossly, normal hearing Respiratory: normal respiratory effort, no respiratory distress Cardiovascular: extremities well-perfused Abdomen: non-tender, non-distended. Soft Musculoskeletal: No joint swelling Neuro: alert, Dysarthria & comprehensible, L hemiparesis Left side 4-4+/5. Right side 5/5. No ankle clonus Psychiatric: pleasant, cooperative. Tearful at times Skin: no rashes visualized MENTAL STATUS: Alertness, Attention & Concentration: Normal Communication: Normal Orientation: Normal Memory, Recent & Remote: Normal CRANIAL NERVES: II, III: Pupils: PER III, IV, : Eye Movements: Normal (EOMI, No ptosis, No nystagmus) V - Facial Sensation: Normal VII: Face Symmetry & Strength: Mild facial droop VIII - Hearing: Normal IX, X - Palate:: Normal XI - Shoulder Shrug: Normal XII - Tongue Protrusion: Normal GAIT: Unable to walk due to no assistance to safely evaluate Tone: Normal SENSATION: Light Touch: Normal Laboratory Data I have reviewed the patient's relevant labs. Lab Results Component Value Date ALBUMIN 3.7 01/06/2023 ALT 21 01/06/2023 AST 20 01/06/2023 BUN 33 (H) 01/15/2023 CALCIUM 8.8 01/15/2023 CL 102 01/15/2023 CHOL 125 01/06/2023 CREATININE 1.52 (H) 01/15/2023 GLUCOSE 143 (H) 01/15/2023 HDL 37 (L) 01/06/2023 HCT 36.2 (L) 01/09/2023 HGB 12.2 (L) 01/09/2023 HGBA1C 6.6 (H) 01/06/2023 MG 2.4 01/13/2023 PHOS 3.5 01/07/2023 PLT 134 (L) 01/09/2023 K 4.8 01/15/2023 NA 137 01/15/2023 TRIG 110 01/06/2023 WBC 7.49 01/09/2023 Diagnostic Studies I have reviewed the patient's relevant imaging. MRI & CT Studies: (last 6 months) CT Head Or Brain Without Contrast Final Result by Salas Goldstein MD (01/07/2023 0609) 1. Continued evolution of the area of infarction in the right posterior frontal and temporal lobe involving the operculum with findings consistent with petechial hemorrhage as noted on the prior examination consistent with laminar necrosis. A telephone call regarding the findings in the study was made to and acknowledged by Esha, the nurse practitioner, in the, in the [facility] at 6:20 a.m. on 01/07/2023. Workstation ID: [id number] CT Angiogram Brain With Perfusion Final Result by Salas Goldstein MD (01/06/2023 8031) 1. Improvement in the appearance of the intracranial vessels. Previously noted abnormality in the M2 segment of the right MCA is no longer visualized with patent appearance of the MCA bilaterally. Distal distributions appear symmetric. 2. Better visualization of the posterior circulation. Dominant V4 on the right with calcific plaquewithout flow-limiting stenosis. 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 The distal V4 segment on the left is not visualized. A telephone call regarding the findings in the examination was made to and acknowledged by Dr. Baltazar from neurology at 5:30 a.m. on 01/06/2023. Workstation ID: [id number] CT Head Without Contrast (Stroke) Final Result by Salas Goldstein MD (01/06/2023 0549) 1. Subtle low-density within the llamas radiata on the right. Early area of infarction not excluded. 2. Hyperdensity within the distal right MCA not as conspicuous as on the prior study. 3. Small vessel ischemic changes. 4. Atrophy. Workstation ID: [id number] CT Angiogram Head Neck (STROKE) Final Result by Salas Goldstein MD (01/06/2023 0327) 1. Calcific plaque in the carotid bifurcations bilaterally, worse on the left than the right. Thereis approximately 40-50% stenosis in the left carotid bifurcation. 2. Distal right MCA superior division occlusion as described above. 3. Right vertebral artery is dominant demonstrates diffuse calcific plaque with moderate to severe stenosis throughout the V1 and V2 segments. Additional high-grade stenosis with soft plaque is also seen in the proximal V4 segment.The left vertebral artery is diffusely hypoplastic. V4 segment on the left is occluded. There is faint contrast seen within the left PICA. A telephone call regarding the findings examination was made to and acknowledged by Dr. Baltazar from neurology at 3:20 a.m. on 01/06/2023. Workstation ID: [id number] CT Cervical Spine Without Contrast Final Result by Salas Goldstein MD (01/06/2023 0239) 1. Examination limited by patient positioning. 2. No gross evidence of fracture. 3. Multilevel cervical spondylosis. 4. Dense calcific plaque with stenosis in the visualized portion of the right vertebral artery. Workstation ID: [id number] ECG 12 Lead Result Date: 01/11/2023 Sinus rhythm with 1st degree AV block with occasional Premature ventricular complexes and Prematureatrial complexes Nonspecific ST abnormality Prolonged QT Abnormal ECG ECG Cart Interpretation - seephysician note for interpretation. Confirmed by Mahnaz Morales ([id number]) on 01/11/2023 3:04:[address] Head Or Brain Without Contrast Result Date: 01/07/2023 EXAMINATION: CT HEAD OR BRAIN WITHOUT CONTRAST HISTORY: F/U stroke, ? petechial hemorrhage Injury/Trauma or Illness?:Illness/Other How long have you had these symptoms (acute/chronic)?:Acute Reason for exam?:F/U stroke, ? petechial hemorrhage Type of Exam?:Subsequent/Follow-up Additional signs and symptoms?:F/U stroke, ? petechial hemorrhage I63.9 Acute ischemic stroke (HCC)Injury/Trauma or Illness?:Illness/Other How long have you had these symptoms (acute/chronic)?:AcuteF/U stroke, ? petechialhemorrhage COMPARISON: Head CT dated 01/06/2023 at 8:54 p.m.. CONTRAST: None. TECHNIQUE CT Head with axial, coronal and sagittal reformats. Dose reduction techniques were achieved by using automated exposure control and/or adjustment of mA and/or kV according to patient size and/or use of iterativereconstruction technique. FINDINGS: FINDINGS: POSTOPERATIVE CHANGES: None. BRAIN PARENCHYMA: There is low density now appreciated consistent with an evolving infarction in the region of the posteriorright frontal lobe and associated operculum. There is subtle hyperdensity within the cortex consistent with petechial hemorrhage. This is consistent with laminar necrosis. No midline shift or herniation is seen. There is patchy low-density in the white matter consistent with small vessel ischemic change in old lacunar infarctions are present in the centrum semiovale bilaterally. VENTRICLES/EXTRA-AXIAL SPACES: Ventricles and extraventricular spaces are within normal limits for patient's age. VESSELS: No hyperdense intraluminal thrombus. Vascular SINUSES/MASTOIDS:Thickening with cyst or polyp formation in the base of the left maxillary sinus. Erika bullosa bilaterally. S-shaped nasal septal deviation. Mastoids and middle ears are clear. MSK: No displaced or depressed calvarial fracture. OTHER: 1. Continued evolution of the area of infarction in the right posterior frontal and temporal lobe involving the operculum with findings consistent with petechial hemorrhage as noted on the prior examination consistent with laminar necrosis. A telephone call regarding the findings in the study was made to and acknowledged by Esha the nurse practitioner, in the, in the [facility] at 6:20 a.m. on 01/07/2023. Workstation ID: [id number] CT Head Or Brain Without Contrast Result Date: 01/06/2023 EXAMINATION: CT Head without Contrast HISTORY: Stroke, follow up To be completed 18-30 hours after thrombolytic (alteplase, tenecteplase) initiated or intervention complete Radiology to call Neurology on-call with critical results. COMPARISON: CT head, 01/06/2023 TECHNIQUE: Multiple axial noncontrast images of the brain were obtained and reformatted according to the standard protocol. Q DOCUMENTATION: At least one of the following dose reduction techniques was utilized: Iterative reconstruction, and/or Automatic Exposure Control, and/or mA/kV adjustment based on body size. FINDINGS: Infarct/Vascular: There is a small area of evolving infarction within the posterolateral right frontal lobe and involving a portion of the posterior right insula. There is a small area of very subtle hyperdensity within the subinsular region which may represent a small area of petechial hemorrhage. Patchy areas of decreased attenuation throughout the supratentorial white matter are nonspecific but commonly associated chronic small vessel ischemic disease. Intracranial Mass: No evidence of intracranial mass. CSF Spaces: Mild generalized parenchymal atrophy. No change since prior exam. Calvarium and Scalp: Unremarkable. Mastoid Air Cells: Clear. Paranasal Sinuses and Orbits: Mild lobulated mucosal thickening along the alveolar recess of the left maxillary sinus. The orbits are unremarkable. There is a small evolving infarction within the posterolateral right frontal lobe and adjacent posterior right insula. There is very subtle hyperdensity within the subinsular region which may represent minimal petechial hemorrhage. Continued follow-up recommended. Workstation ID: [id number] XR Modifed Barium Swallow Result Date: 01/06/2023 EXAMINATION: XR MODIFIED BARIUM SWALLOW HISTORY: dysphagia Dx: I63.9 (Acute ischemic stroke (HCC)) Injury/Trauma or Illness?:Illness/Other How long have you had these symptoms (acute/chronic)?:Unknown CONTRAST: BARIUM SULFATE 40 % (W/V), 30% (W/W) ORAL PASTE - 1 Dose, BARIUM SULFATE 40 % (W/V), 30 % (W/W) ORAL SUSPENSION - 1 Dose, BARIUM SULFATE 81 % (W/W) ORAL POWDER - 1 Dose, FLUOROSCOPY DOSE: Ka,r mGy: Fluoro dose in Ka,r mGy: 4.41 TECHNIQUE: Modified barium swallow performed with speech therapy. 372 fluoroscopic images obtained. FINDINGS: The prevertebral soft tissues are normal. Oral phase: Moderately impaired. Pharyngeal phase: Mild to moderately impaired. Penetration: During swallowing with thin liquid and nectar. Aspiration: Aspiration occurred during swallowing with thin liquid. Mild to moderately impaired pharyngeal phase of swallowing with penetration and aspiration of thin liquid. Please see speech therapy recommendations Workstation ID: [id number] US Renal Only Result Date: 01/06/2023 EXAMINATION: RENAL ULTRASOUND, 01/06/2023 HISTORY: Dx: I63.9 (Acute ischemic stroke (HCC)) Injury/Trauma or Illness?:Illness/Other How long have you had these symptoms (acute/chronic)?:Unknown eval, CKD COMPARISON FILMS: None. FINDINGS: Static images from real-time examination using grayscale, color Doppler sonography are provided. The study overall is slightly limited due to overlying bowel gas.The kidneys measure as follows: Right kidney: 11.5 x 6.2 x 5.7 cm, volume 213.0 mL. Left kidney: 12.4 x 7.2 x 5.5 cm, volume 256.3 mL. There is an anechoic lesion in the upper pole of the right kidney measuring 0.9 x 1.2 x 1.0 cm. There is an anechoic lesion in the mid pole of the left kidney measuring 1.4 x 1.4 x 1.4 cm. These have thin cedeño, good through transmission. No other mass, hydronephrosis, nephrolithiasis or perinephric fluid collections. 1. Except for a simple cyst in the right as well as left kidney no acute process such as hydronephrosis. The kidneys are essentially normal. [employer] Workstation ID: [id number] Echocardiogram complete w contrast Result Date: 01/06/2023 Patient Info Name: KEVIN WHITE Age: 82 years : 1940 Gender: Male Ht: 183 cm Wt: 112 kg BSA: 2.41 m2 HR: 69 bpm BP: 165 / 64 mmHg Technical Quality: Poor Exam Date: 01/06/2023 8:38 AM Patient Status: Inpatient Upscale Security Officer: Sheryl Smith CS, RVTExam Type: ECHOCARDIOGRAM COMPLETE W CONTRAST Study Info Indications G45.9 - Transient cerebral ischemic attack, unspecified Attending Physician: ELLEN SOTO Referring Physician: XOCHITL RAMOS. ; [phone] Primary Nurse: MINGLER OPERATOR BMI: 33.36 kg/m2 Summary 1. This study was technically limited, Definity IV contrast was used to enhance endocardial definition. 2. Left ventricular systolic func tion is normal with an ejection fraction by Biplane Method of Discs of 59 %. 3. And aortic bioprosthesis (27 mm Inspiris) appears well-seated, but is not well visualized. 4. There is no bioprostheticaortic valve stenosis with a peak velocity of 2.1 m/s, mean gradient of 10 mmHg, and aortic valve area of 1.8 cm2. 5. Left atrial chamber is mildly enlarged with a left atrial volume index of 41 ml/m2 by BP MOD. 6. Compared to the prior study from 11/13/2021, there is no significant interval change.History/Risk Factors Hypertension: Yes Dyslipidemia: Yes Diabetic Therapy: Oral Myocardial Infarction (TN): Yes Chronic Lung Disease: Yes Coronary Artery Disease (CAD) Yes Diabetes Mellitus: Yes COPD: Not Treated Tobacco Use: Never Cerebrovascular Disease: CVA Family History: Coronary Artery Disease Valve Disease - AV: Severe History/Risk Factors Patient has prior CABG on 08/12/2021. Prior Interventions Pacemaker: No PCI: Yes CABG: Yes Valve Surgery: Yes Type of Valve Surgery: AV Bioprosthetic Replacement ICD: No Date of CAB08/12/2021 Most Recent Valve Surgery: 08/12/2021 Transcatheter Intervention: HEATHER Closure Replacement Valve Size: 27 mm Inspiris Replacement Valve Size: 40mm atriclip Procedure(s): Complete two-dimensional, color flow and Doppler transthoracic echocardiogram is performed with contrast. Definity explained to patient. Patient verbalizes understanding and agrees to proceed. Definity 1.3ml/8.7ml normal sterile saline 2 ml total given IV over 30-60 seconds. Left Ventricle Left ventricular chamber dimension is normal. Left ventricular systolic function is normal with anejection fraction by Biplane Method of Discs of 59 %. Normal left ventricular mass. Left ventricular segmental wall motion is normal. There is normal diastolic function. E/e' average 11.9 is not elevated consistent with normal LA pressure. Right Ventricle Right ventricular chamber dimension is normal. Right ventricular systolic function is normal. Left Atria Left atrial chamber is mildly enlargedwith a left atrial volume index of 41 ml/m2 by BP MOD. Right Atria Right atrial chamber dimension is normal. Aortic Valve And aortic bioprosthesis (27 mm Inspiris) appears well-seated, but is not well visualized. There is no sclerosis of the bioprosthetic aortic valve leaflets. There is no regurgitation of the bioprosthetic aortic valve. There is no bioprosthetic aortic valve stenosis with a peakvelocity of 2.1 m/s, mean gradient of 10 mmHg, and aortic valve area of 1.8 cm2. Pulmonic Valve Thepulmonic valve is normal. There is no pulmonic valve stenosis. There is trace pulmonic regurgitation. Mitral Valve The mitral valve has normal leaflets. There is no mitral valve stenosis. Moderate mitral annular calcification. There is trace mitral valve regurgitation. Tricuspid Valve The tricuspidvalve leaflets are normal. There is no significant tricuspid valve stenosis. There is trace tricuspid valve regurgitation. There is no pulmonary hypertension, estimated right ventricle systolic pressure is 37 mmHg. Pericardium/Pleural The pericardium appears normal. There is no pericardial effusion. Inferior Vena Cava Normal inferior vena cava with >50% collapse upon inspiration consistent with normal right atrial pressure. Aorta The aortic measurements are indexed to age and body surface area. The aortic root is normal measuring 3.5 cm with an index of 1.4 cm/m2. The proximal ascending aorta is normal measuring 3.5 cm with an index of 1.4 cm/m2. Left Ventricular Outflow Tract Name Value Normal LVOT 2D LVOT Diameter 2.2 cm LVOT Doppler LVOT Peak Velocity 1.1 m/s LVOT Mean Gradient 1 mmHg LVOT VTI 20 cm LVOT VTI/AV VTI Ratio 0.5 LVOT Stroke Volume 78 ml LVOT Stroke Index 32.10 ml/m2 Pulmonic Valve --- Name Value Normal PV 2D RVOT Diameter (2D) 2.7 cm 1.7-2.7 PV Regurgitation Doppler ------- MA Peak Velocity 92.60 cm/s Mitral Valve Name Value Normal ------ MV Doppler MV Decel [place] 643 cm/s2 MV PHT 43 ms MV Area (PHT) 5.2 cm2 4.0-5.0 MV Diastolic Function MV E Peak Velocity 0.95 m/s MV A Peak Velocity 0.85 m/s MV E/A 1.1 MV Decel Time 147 ms MV Annular TDI MV Septal e' Velocity 6.7 cm/s >=8.0 MV E/e' (Septal) 14.1 <=8.0 MV Lateral e' Velocity 9.8 cm/s >=10.0 MV E/e' (Lateral) 9.7 <=8.0 MV e' Average 8.25 cm/s MV E/e' (Average) 11.9 Tricuspid Valve Name Value Normal TV Regurgitation Doppler TR Peak Velocity 2.90 m/s TR Peak Gradient 34 mmHg Estimated PAP/RSVP RA Pressure 3mmHg <=5 PA Systolic Pressure 37 mmHg <=36 RV Systolic Pressure 37 mmHg <36 Aorta --------- Name Value Normal Ascending Aorta Ao Root Diameter (2D) 3.5 cm 3.1-3.7 Ao Root Diam Index (2D) 1.4 cm/m2 1.5-1.9 Prox Asc Ao Diameter 3.5 cm 2.6-3.4 Prox Asc Ao Diameter Index 1.4 cm/m2 1.3-1.7 Venous Name Value Normal ------ IVC/SVC IVC Diameter (Exp 2D) 2.0 cm <=2.1 Aortic Valve ----- Name Value Normal AV Doppler AV Peak Velocity 2.1 m/s AV Mean Gradient 10 mmHg AV VTI 44 cmAV Area (Cont Eq VTI) 1.8 cm2 AV Area Index (Cont Eq VTI) 1 cm2/m2 AV Area (Cont Eq Clemente) 1.9 cm2 AVArea Index (Cont Eq Clemente) 1 cm2/m2 LVOT Vmax/AV Vmax 0.50 LVOT VTI/AV VTI Ratio 0.5 AV [id number] LVOT Area 3.8 cm2 Ventricles Name Value Normal -------- LV Dimensions 2D/MM IVS Diastolic Thickness (2D) 1.8 cm 0.6-1.0 LVID Diastole (2D) 4.9 cm 4.2-5.8 LVIW Diastolic Thickness (2D) 1.3 cm 0.6-1.0 LVID Systole (2D) 4.0 cm 2.5-4.0 LVOT Diameter 2.2 cm LV Mass (2D Cubed) 328.70 g 88.00-224.00 LV Mass Index (2D Cubed) 136 g/m2 49-115 Relative Wall Thickness (2D) 0.53 <=0.42 LV Fractional Shortening/Ejection [id number] LV Fractional Shortening (2D) 18 % 25-43 LV EF (2D Teicholz) 38 % 52-72 LV Diastolic Volume (4C MOD) 142 ml LV Systolic Volume (4C MOD) 61 ml LV EF (4C MOD) 57 % LV Diastolic Volume (2C MOD) 130 ml LV Systolic Volume (2C MOD) 50 ml LV EF (2C MOD) 61 % LV Diastolic Volume (BP MOD) 141 ml 62-150 LV Diastolic Volume Index (BP MOD) 58 ml/m2 34-74 LV Systolic Volume (BP MOD) 58 ml 21-61 LV Systolic Volume Index (BP MOD) 24 ml/m2 11-31 LV EF (BP MOD) 59 % 55-70 LV Diastolic Length (4C) 8.7 cm LV Systolic Length (4C) 7.9 cmLV End Diastolic Volume (BP A-L) 140 ml LV End Systolic Volume (BP A-L) 58 ml LV EF (BP A-L) 59 % LV Stroke Volume (4C MOD) 81 ml LV SI (4C MOD) 33.58 ml/m2 RV Dimensions 2D/MM RV Basal Diastolic Dimension 3.8 cm 2.5-4.1 RV Mid-Cavity Diastolic Dimension 3.4 cm 1.9- 3.5 RV Systolic Function RV s' Velocity 0.09 m/s 0.10-0.19 Atria Name Value Normal LA Dimensions LA Dimension (2D) 3.9 cm 3.0-4.1 LA Dimen Index (2D) 1.6 cm/m2 LA Area (4C) 29.1 c m2 LA Length (4C) 7.3 cm LA Area (2C) 24.7 cm2 LA Length (2C) 5.9 cm LA Volume (4C MOD) 95 ml LA Volume (2C MOD) 82 ml LA Volume (4C A-L) 98 ml LA Volume (2C A-L) 88 ml LA Volume (BP A-L) 103 ml LA Volume Index (BP A-L) 43 ml/m2 <=34 LA Volume (BP MOD) 98 ml LA Volume Index (BP MOD) 41 ml/m2 16-34 RA Dimensions RA Systolic Major Winston Length (4C) 5.93 cm <=5.30 RA Area (4C) 23.0 cm2 <=18.0 RA Area (4C) Index 10 cm2/m2 RA ESV (4C MOD) 71 ml 18-32 RA ESV Index (4C MOD) 29 ml/m2 <=32 Report Signatures Finalized by Radha Lawler MD on 01/06/2023 10:39 AM LA Pressure: normal CT Angiogram Brain With Perfusion Result Date: 01/06/2023 EXAMINATION: CT ANGIOGRAM BRAIN WITH PERFUSION HISTORY: r mca syndrome Injury/Trauma or Illness?:Illness/Other How long have you had these symptoms (acute/chronic)?:Acute Reason for exam?:r mca syndrome Type of Exam?:Initial Additional signs and symptoms?:r mca syndrome I63.9 Acute ischemic stroke ( HCC)Injury/Trauma or Illness?:Illness/Other How long have you had these symptoms (acute/chronic)?:Acuter mca syndrome COMPARISON: Head CT and CT angiogram performed at [facility] dent dated 01/06/2023 at 2:[address] dated 01/06/2023 at 4:39 a.m.. TECHNIQUE: CT angiogram of the head was performed. Coronal, sagittal and 3-D reformats were created and reviewed. Dose reduction techniques were achieved by using automated exposure control and/or adjustment of mA and/or kV according to patient size and/or use of iterative reconstruction technique CONTRAST: Isovue 370 FINDINGS: BRAIN: Perfusion images demonstrate 0 mL volume of hypoperfusion with T-max greater than 6 seconds and 0 mLvolume of core infarction with cerebral of flow less than 30%. ANTERIOR CIRCULATION:The intra petrous, intra cavernous, and supraclinoid ICA are patent. LILI patent bilaterally. MCA patent bilaterally. No large vessel occlusion or thrombus. No aneurysm. Distal distributions now appear symmetric. POSTERIOR CIRCULATION: Dominant right V4 segment demonstrates calcific plaque without flow-limiting stenosis. 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 No distal V4 segment is seen. This is hypoplastic or occluded. Basilar artery is patent. Basilar tip is patent. SCA and [employer] patent. Distal [employer] distributions are symmetric. 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 This is better visualized as compared to the prior study. OTHER: No pathologic enhancing lesions are seen. 1. Improvement in the appearance of the intracranial vessels. Previously noted abnormality in the M2 segment of the right MCA is no longer visualized with patent appearance of the MCA bilaterally. Distal distributions appear symmetric. 2. Better visualization of the posterior circulation. Dominant V4 on the right with calcific plaque without flow-limiting stenosis. 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 The distal V4 segment on the left is not visualized. A telephone call regarding the findings in the examination was made to and acknowledged by Dr. Baltazar from neurology at 5:30 a.m. on 01/06/2023. Workstation ID: [id number] CT Head Without Contrast (Stroke) Result Date: 01/06/2023 EXAMINATION: CT HEAD WITHOUT CONTRAST (STROKE) HISTORY: r mca syndrome Injury/Trauma or Illness?:Illness/Other How long have you had these symptoms (acute/chronic)?:Acute Reason for exam?:r mca syndrome Type of Exam?:Initial Additional signs and symptoms?:r mca syndrome Injury/Trauma or Illness?:Ill ness/Other How long have you had these symptoms (acute/chronic)?:Acuter mca syndrome COMPARISON: Head CT dated 01/06/2023 at 1:[address] angiogram of the head and neck dated 01/06/2023 at 2:33 a.m.. CONTRAST: None. TECHNIQUE CT Head with axial, coronal and sagittal reformats. Dose reduction techniques were achieved by using automated exposure control and/or adjustment of mA and/or kV according to patient size and/or use of iterative reconstruction technique. FINDINGS: FINDINGS: POSTOPERATIVE CHANGES: None. BRAIN PARENCHYMA: There is very subtle hypodensity present within the llamas radiata on the right, image 31/series 7. No intraparenchymal or extra-axial hemorrhage. No mass effect. No midline shift or herniation. Patchy low-density in the white matter also noted consistent with small vessel ischemic change. VENTRICLES/EXTRA-AXIAL SPACES: Enlarged, consistent with atrophy. VESSELS: The subtle hyperdensity previously noted in the right MCA is less conspicuous, image 18/series 7. Vascular calcifications are noted. Please refer to the CT angiogram report. SINUSES/MASTOIDS:Visualizedsinuses are clear. Erika bullosa bilaterally. Nasal septal deviation to the right with spur formation. Mastoids and middle ears are clear. MSK: No displaced or depressed calvarial fracture. OTHER: 1. Subtle low-density within the llamas radiata on the right. Early area of infarction not excluded. 2. Hyperdensity within the distal right MCA not as conspicuous as on the prior study. 3. Small vessel ischemic changes. 4. Atrophy. Workstation ID: [id number] XR Chest 1 View Result Date: 01/06/2023 EXAMINATION: XR CHEST PA/AP HISTORY: ORDERING SYSTEM PROVIDED HISTORY: Large stroke, mechanical fall, TECHNOLOGIST PROVIDED HISTORY: Illness/Other Reason for exam: stroke, mechanical fall Cancer History: u Surgery, RadiationHistory: u Encounter Type: Initial Additional signs and symptoms: . ORDERING SYSTEM PROVIDED DIAGNOSIS CODES: I63.9 Acute ischemic stroke (HCC) N28.9 Renal insufficiency COMPARISON: PA and lateral views of the chest dated 09/25/2021. TECHNIQUE: AP semi-erect portable chest radiograph performed. FINDINGS: Stable median sternotomy wires, mediastinal surgical clips, valve replacement and left atrial appendage clip. The trachea is midline. Stable mild prominence of the cardiomediastinal silhouette and stable mild atheromatous calcification at the aortic arch. Mild elevation of the right hemidiaphragm. There is no consolidation or infiltrates. There is no pleural effusionor pulmonary vascular congestion. There is no pneumothorax. The bony structures are osteopenic. There is no acute osseous abnormality. There is no acute cardiopulmonary process. Workstation ID: [id number] CT Angiogram Head Neck (STROKE) Result Date: 01/06/2023 EXAMINATION: CT ANGIOGRAM HEAD NECK (STROKE) HISTORY: LAMS of 5, appears to have a large clot. Toldby the stroke neurologist Dr. Raúl Baltazar to proceed with CTA at this time since there is a delay for ground transportation.; stroke alert, LAMS=5 Injury/Trauma or Illness?:Illness/Other How long have you had these symptoms (acute/chronic)?:Acute Reason for exam?:stroke alert, LAMS=5 Type of Exam?:Initial Additional signs and symptoms?:LKW: 0000 01/06/23 I63.9 Acute ischemic stroke (HCC)Injury/Trauma or Illness?:Illness/Other How long have you had these symptoms (acute/chronic)?:AcuteLAMS of5, appears to have a large clot. Told by the stroke neurologist Dr. Raúl Baltazar to proceed with CTA at this time since there is a delay for ground transportation.; stroke alert, LAMS=5 COMPARISON:Head CT dated 01/06/2023 at 1:46 a.m.. TECHNIQUE: CT angiogram of the head and neck was performed. Coronal, sagittal and 3-D reformats were created and reviewed. Carotid stenosis measurements were made according to the NASCET criteria. Dose reduction techniques were achieved by using automated exposure control and/or adjustment of mA and/or kV according to patient size and/or use of iterative reconstruction technique CONTRAST: 75 mL of Isovue 370 FINDINGS: NECK: AORTIC ARCH: Calcific plaque in the aortic arch. Allowing for streak artifacts, the origins the great vessels are patent. ANTERIOR CIRCULATION:Common carotid arteries are patent. There is calcific plaque in the carotid bifurcations.No flow-limiting stenosis is present on the right. On the left, there is approximately 45-50% stenosis. Cervical ICA are patent up to the skull base allowing for artifacts from dental work. POSTERIORCIRCULATION: There is diffuse calcific plaque noted in the origin, V1, and V2 segments of the right vertebral artery. There is moderate to severe stenosis present. The right vertebral artery is the dominant vessel. 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 DEVELOPMENTAL ANOMALIES: None. OTHER: No thyroid nodule or adenopathy. HEAD BRAIN: Please see the separate dictation of the head CT. ANTERIOR CIRCULATION: The intra petrous, intra cavernous, and supraclinoid ICA are patent with calcific plaque associated with mild to moderate stenosis in the intra cavernous and supraclinoid portions. Intracranial termini are patent. ACApatent bilaterally. Left MCA is patent. On the right, there is occlusion of the distal V2 segment of the superior division right MCA, image 54/series 12 and image 79/series 13. This is partially obscured on the axial images but appears to be present on image 40/series 14. Distal distributions appear symmetric. No large vessel occlusion or aneurysm. POSTERIOR CIRCULATION: Calcific plaque in the V4 segment of the right vertebral artery with short segment high-grade stenosis of the junction of V3 and V4 segments on the right. Calcific plaque is seen beyond the stenosis. Origin of the PICA is patent on the right. Left vertebral artery is occluded at the junction of V3 and V4 segments. Contrast is seen within the PICA on the right with fate contrast seen on the left. Basilar artery is patent. SCA patent. [employer] patent. Distal [employer] distributions are symmetric. No large vessel occlusion is seen involving the [employer]. There is mild stenosis in the P1 segment on the left. DEVELOPMENTAL ANOMALIES: None. OTHER: No pathologic enhancing lesions are seen. This study is not optimized for evaluation of theintracranial veins. 1. Calcific plaque in the carotid bifurcations bilaterally, worse on the left than the right. Thereis approximately 40-50% stenosis in the left carotid bifurcation. 2. Distal right MCA superior division occlusion as described above. 3. Right vertebral artery is dominant demonstrates diffuse calcific plaque with moderate to severe stenosis throughout the V1 and V2 segments. Additional high- grade stenosis with soft plaque is also seen in the proximal V4 segment. The left vertebral artery is diffusely hypoplastic. V4 segment on the left is occluded. There is faint contrast seen within the left PICA. A telephone call regarding the findings examination was made to and acknowledged by Dr. Baltazar from neurology at 3:20 a.m. on 01/06/2023. Workstation ID: [id number] CT Cervical Spine Without Contrast Result Date: 01/06/2023 EXAMINATION: CT CERVICAL SPINE WITHOUT CONTRAST HISTORY: Patient with unwitnessed mechanical fall into the bathtub. No complains of neck pain but elderly and with large stroke. Injury/Trauma or Illness?:Injury/Trauma How long have you had these symptoms (acute/chronic)?:Acute Reason for exam?:denies neck pain, fall from standing into bathtub Type of Exam?:Initial Mechanism of injury?:fall I63.9 Acute ischemic stroke (HCC)Injury/Trauma or Illness?:Injury/Trauma How long have you had these symptoms (acute/chronic)?:AcutePatient with unwitnessed mechanical fall into the bathtub. No complains of neck pain but elderly and with large stroke. COMPARISON: None available at time of dictation. TECHNIQUE: CT imaging of the cervical spine was performed. The patient is suboptimally positioned. Dose reduction techniques were achieved by using automated exposure control and/or adjustment of mA and/or kV according to patient size and/or use of iterative reconstruction technique. CONTRAST: None. FINDINGS: COMPRESSION FRACTURES: No fracture or vertebral body collapse. No bony displacement. No asymmetric widening of the facets. There is nonspecific straightening of the normal cervical curve. PREVERTEBRAL SOFT TISSUES: Normal. CRANIOCERVICAL JUNCTION:There is a normal relationship of the occipital condyles, lateral masses of C1, and articular surfaces of C2. The base of the dens and body of C2 are intact. There is narrowing of the predental space with sclerosis and spurring arising from the anterior arch of C1 and the dens. POSTERIOR FOSSA: Cerebellar tonsils are above the foramen magnum. Disc levels: C2-C3: No disc herniation. No spinal canal or foraminal narrowing. C3- C4: Disc space narrowing. Central disc osteophyte complex with moderate central canal stenosis. Uncovertebral joint degeneration and facet degeneration. Moderate bilateral foraminal stenosis. C4-C5: Disc space narrowing posteriorly. Central disc osteophyte complex. Mild central canal stenosis. Neural foramina patent. C5-C6: No focal disc herniation or bulging. Bilateral facet degeneration with uncovertebral joint degeneration worse on the left than the right. Moderate left foraminal stenosis. C6-C7: Disc space narrowing. Central and left- sided disc osteophyte complex with mild to moderate central canal stenosis. M oderate bilateral foraminal stenosis. C7-T1: Beam hardening artifacts. Bony canal is patent. There is subtle loss of height in concave appearance of the superior endplate of T1. No cortical disruption is seen. This is consistent with a indeterminate age mild superior endplate compression fracture. Correlation with MRI would be recommended. Central canal patent. Neural foramina patent. UPPER THORACIC SPINE: At T1-T2, central canal and neural foramina patent. Beam hardening artifacts are present.OTHER: No thyroid nodule or adenopathy. There is dense calcific plaque noted throughout the visualized portion of the right vertebral artery. 1. Examination limited by patient positioning. 2. No gross evidence of fracture. 3. Multilevel cervical spondylosis. 4. Dense calcific plaque with stenosis in the visualized portion of the right vertebral artery. Workstation ID: [id number] CT Head Without Contrast (Stroke) Result Date: 01/06/2023 EXAMINATION: CT HEAD WITHOUT CONTRAST (STROKE) HISTORY: ORDERING SYSTEM PROVIDED HISTORY: Acute ischemic stroke (HCC), TECHNOLOGIST PROVIDED HISTORY: Illness/Other Reason for exam: left facial droop,left arm weakness Encounter Type: Initial Additional signs and symptoms: LKW: 0000 01/06/23 ORDERING SYSTEM PROVIDED DIAGNOSIS CODES: I63.9 Acute ischemic stroke (HCC) COMPARISON: None TECHNIQUE: CT examination of the head without IV contrast. Dose reduction techniques were achieved by using automated exposure control and/or adjustment of mA and/or kV according to patient size and/or use of iterative reconstruction technique. FINDINGS: Hyperattenuation is noted in the M2 segment of the right MCA, suspicious for thrombus. The ventricles, sulci, and basilar cisterns are mildly prominent, consistent with mild generalized cerebral volume loss/atrophy, appropriate for the patient's age. Mild hypoattenuation is noted in the periventricular white matter of the frontal lobes, consistent with chronic small vessel ischemic changes. A couple of small old lacunar infarcts are also suspected in the bilateral centrum semiovale white matter (axial series 5, image 37). The brain parenchyma appears otherwise normal. Atherosclerotic calcifications are noted in the distal internal carotid arteries. Nointracranial hemorrhage, abnormal mass effect, or definite CT signs of acute infarct. The visualized paranasal sinuses and mastoid air cells are clear. No acute fracture is seen. The impression was called to Dr. Kamilah Ramos at the time dictation on 01/06/2023 at 2:01 a.m. 1. Hyperattenuation in the M2 segment of the right MCA, suspicious for thrombus. 2. No other acute intracranial abnormality is seen. MRI is more sensitive than CT for the detection of acute infarct. 3. Mild chronic small vessel ischemic changes in the periventricular white matter, and a couple small old lacunar infarcts. Workstation ID: [id number] Signed: Shahrzad Odom DO Physical Medicine & Rehabilitation documented in this [id number] Consult note* Katie Cuellar RN - 01/15/2023 5:59 PM ESTAssociated Order(s): IP CONSULT TO CARE MANAGEMENT Care Management Consult Note Date: 01/15/2023 Time: 5:59 PM Patient Name: Kevin White Date of : 1940 Reason for Consult: Discharge Needs Community, Mental Health, Additional Resources Discharge Plan: Home with spouse Discharging Transportation Plan: TBD Discharge Plan Status: in progress Assessment and Background Information: Living Arrangements: Spouse/significant other Support Systems: Spouse/significant other, Children, Family members Assistance Needed: yes (indpt CREATIVE INTERN) Type of Residence: Private residence, Multi-level (stairs) (2 level home 5-8 MADI, 2 hR Bed /bath 2nd floor, 1/2 bath on main floor Walk in shower) Prior to Admission Home Care Services: No Patient expects to be discharged to:: home Does the patient need discharge transport arranged?: (TBD) Current Home Equipment: Wheeled walker, Cane, Tub/Shower chair Holistic Assessment Medication adherence problem:: No History of falls in last 6 months:: (!) Yes Family aware of the patient's advance care planning wishes:: Yes (has ACP doc on file) Do you have any cultural/spiritual connections or beliefs that would impact how we deliver your care?: No Chronic pain:: (!) Yes Location of chronic pain:: Back Care Management , assessment Chart has been reviewed, see H&P for relevant medical history. will see pt to complete face to face assessment at later time Living Arrangements & listed support systems as: per chart : Lives With: Spouse Type of Home: House Home Layout: Two level, Bed and full bath upstairs, 1/2 bath on main level Steps to enter home: Yes Rails to enter home: 2 rails Number of stairs to enter home: 5 Bathroom Shower/Tub: Walk-in shower Bathroom Toilet: Standard Bathroom Equipment: Shower chair, Grab bars in shower Mobility Equipment: Wheeled walker, Cane Level of function prior to admit: per chart : Level of Bishop - Transfers/Ambulation/Mobility: Independent with functional transfers, Independent with household ambulation, Independent with community ambulation Level of Bishop - ADLs: Independent Level of Bishop - Homemaking: Independent Driving: Patient drives Will continue to follow & assist to develop appropriate discharge plan to meet patient needs asIP Rehab admit progresses. [id number] History and physical note* Shahrzad Odom DO - 01/15/2023 4:02 PM EST HISTORY & PHYSICAL Physical Medicine & Rehabilitation [facility] Acute Inpatient Rehabilitation H&P 01/15/2023 Patient Name: Kevin White Date of : 1940 (82 y.o.) Primary Care Physician: Moi Gibson MD Date of Admission: 01/15/2023 Assessment & Plan Debility 2/2 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 -01/06 VIANEY: normal EF 59%, well-seated AVR, LA dilation. -01/07 CTH: evolution of acute R MCA CVA with petechial hemorrhage -LDL 66, A1c 6.6 -Neurology followed on medical floor -Started ASA and transitioned to eliquis 01/11/23 -Transferred to [facility] on 01/15/23 -Atorvastatin 40mg daily -Eliquis 5mg BID -Initiate comprehensive rehab plan to include PT/OT/ACADEMIC SERVICES PROFESSIONAL Situational depression -01/15 Started Prozac 20mg daily titrate as tolerated Dysphagia -Chopped/ NDD3, chopped meats, Thin liquids -MBS when appropriate -Speech following Oral candidiasis -Nystatin swish and swallow Chronic HFpEF CAD s/p CABG x3 (07/2021) Hypertension A. Fibrillation s/p cardioversion/MAZE/LA clipping -Norvasc 10mg daily -Eliquis 5mg BID -Tikosyn 250mcg q12 -Lasix 20mg daily -Lisinopril 10mg daily Hypothyroidism -Levothyroxine 175mcg daily Type 2 DM with hyperglycemia -A1c 6.6 -Carb controlled diet -Accuchecks QID -Insulin SSI for coverage AJAY on CKD -Unclear stage. Admission on medical floor C 1.4 ->0.9 -01/14 Cr 1.6. s/p gentle hydration -Continue to monitor Thrombocytopenia -Baseline plts low-normal ~150 -01/07 Plts 91 -Bleeding risk Pain management -PRN Tylenol Bladder BPH -Admission UA/cx -Bladder scans and ISC if indicated -Flomax 0.4mg daily Bowels -Monitor for regular BMS -Senna-s 1 tab BID -Miralax daily DVT prophylaxis -Eliquis 5mg BID GI prophylaxis -Protonix 40mg daily Nutrition -Mag Ox 400mg daily -B-12 1000mcg daily -MVI daily Obesity -BMI: 31.69 -Encourage diet modification, active lifestyle, and weight reduction. Discharge Barriers: Mobility, ADL, Self Care Impairment: Intensive PT/OT Decreased Endurance: Intensive PT/OT Skin: Turn every 2 hours, monitor for skin breakdown per rehabilitation nursing Nutritional Status: Nutrition Consult Pulmonary Rehabilitation: Encourage incentives spirometry and deep breathing exercises Left Hemiparesis: Intensive PT/OT Dysphagia, Dysarthria, Aphasia, and Cognitive Deficits: Speech evaluation Diet - The patient is asked to make an attempt to improve diet and exercise patterns to aid in medical management of this problem. DVT prophylaxis - Eliquis Precautions - fall, aspiration Follow-ups - Stroke Prevention Clinic - PCP Consulted internal medicine to monitor co-morbidities during rehab. Patient requires frequent management by consulting physicians not available in a lower level of care and frequent lab monitoring. On admission, I (inpatient rehabilitation facility physician) completed the medication reconciliation, and no issues were found. Description of Current Medical Status: Medical/Functional Exam: Please see below Rehabilitation Diagnosis: As above Current & Prior Comorbid Conditions: Please see problem list above Current and Prior Level of Function: Please see below Status Compared to Pre-Admission: There are no clinically significant differences between the patient's current medical and functional status as documented in the preadmission screen. Please see current functional status and hospital course/medical management. Treatment Plan: Disciplines Required: Physical Therapy, Occupational Therapy, Speech Therapy, Case Management/Social Work, and Nursing Specialized in Rehabilitation Intensity of Services: At least 3 hours per day, 5 days a week Functional Goals: improve independence with regard to mobility, ADLs, cognition, communication, andswallowing Medical Goals: Medically stable for home discharge Special/Safety Considerations: Fall risk and Bleeding precautions There are no special or safety considerations that would likely preclude immediate implementation of an intensive rehabilitation program (intensity as stated above) or substantially influence plan ofcare. Risk of Complications: Patient is High Risk For: Falls, Skin breakdown, Dehydration and malnourishment, Atelectasis, Bleeding, Constipation/ileus, Urinary retention with acute kidney injury, Hypotension/hypertension, DVT/PE, and Cardiac Event Discharge Barriers: Functional deficits and medical stability Patient requires medical monitoring and management of comorbidities and/or hospital complications Patient requires Nursing Specialized in Rehabilitation to Monitor: Bowel and Bladder Care, Neurologic Assessment, and Frequent Pain or Palliative Assessment Psychosocial Considerations: Safe home discharge plan Attestation: Considering all of the information above, it is my best judgment that this patient requires an intensive rehabilitation multidisciplinary program as previously described due to the necessity of medical management, rehabilitation needs, and complexity of nursing care under the supervision of a rehabilitation physician (patient requires at least 3 rehab physician visits per week). It can be reasonably expected that patient will participate in and benefit from a multidisciplinary team approach to maximize functional independence that is best served with acute inpatient rehabilitation as opposed to lower level of care. The teams needed are: Rehabilitation Nursing for medication management, bowel/bladder care, skin care, and respiratory care Physical Therapy for strengthening, endurance, mobility, gait and balance training, ROM, ADL's, andpatient/family training Occupational Therapy for strengthening, endurance, mobility, gait and balance training, ROM, ADL's,and patient/family training Speech Therapy for cognition, swallow evaluation and therapy, and communication Social Work for integrated social support and discharge planning Estimated Length of Stay: 10-14 days Discharge Destination: home Rehab Prognosis: Good Chief Complaint Weakness History of Present Illness Date of Admission: 01/15/2023 Informant(s): Patient, Care Team / Chart History of Present Illness: Kevin White is a 82 y.o. male with PMH of CAD, AFIB s/p cardioversion/MAZE/LA clipping, CHF, IDDM type 2, who presented to [facility] on 01/06/2023 from [facility] with left sided weakness and garbled speech, s/p [facility] tPA. Admitted to [facility] & found to have acute R MCA CVA. 01/06 CTA H/N: distal R MCA occlusion s/p TPA. CT brain perfusion after TPA with improved perfusion, noted hypoplastic L V4. 12/17 2 VIANEY: normal EF 59%, well-seated AVR, LA dilation. 01/07 CTH: evolution of acute R MCA CVA with petechial hemorrhage. LDL 66, A1c 6.6 . Speech followed pt and rec Chopped/ NDD3, chopped meats, Thin liquids. Noted to have AJAY on CKD. Unclear stage. Admission on medical floor C 1.4 ->0.9.01/14 Cr1.6. s/p gentle hydration. Started ASA and transitioned to eliquis 01/11/23. Seen by PT, OT, Speechwho recommended IPR level rehab. Transferred to [facility] on 01/15/23 PT reports doing well. +Dysarthria but intelligible. Denies RAMSEY, change in vision, CP, SOB, N/V. He became tearful discussing deficits from CVA. Reports having a difficult time sleeping. Eating fair. Review of Systems General: - fever, - chills HEENT: - headache, - vision changes Resp: - shortness of breath, - cough Cardiac: - chest pain, - leg swelling GI: - constipation, - nausea : - urinary retention, - urinary incontinence MSK: - joint pain, - joint swelling Neuro: - confusion,+weakness Psychological: - depression, - anxiety Skin: - rashes, - wounds Allergies I have reviewed the patient's allergies. Patient has no known allergies. Medications I have reviewed the patient's medication list and performed a complete reconciliation. Home Medications: Prior to Admission medications Medication Sig Start Date End Date Taking? Authorizing Provider amLODIPine (NORVASC) 10 MG tablet Take 1 (one) tablet (10 mg total) by mouth daily . 01/08/23 02/07/23 Elier Mejia MD apixaban (ELIQUIS) 5 mg Tab Take 1 (one) tablet (5 mg total) by mouth 2 (two) times a day . 01/08/23 Elier Mejia MD cyanocobalamin (B-12) 1000 MCG tablet Take 1 (one) tablet (1,000 mcg total) by mouth daily . Anastacia Randle MD dofetilide (TIKOSYN) 250 MCG capsule Take 1 (one) capsule (250 mcg total) by mouth every 12 (twelve) hours . 01/05/23 Ira Ricci CNP esomeprazole (NEXIUM) 40 MG capsule Take 1 (one) capsule (40 mg total) by mouth every morning before breakfast . Anastacia Randle MD furosemide (LASIX) 20 MG tablet Take 1 (one) tablet (20 mg total) by mouth daily . 01/15/23 Sarah Mabry DO levothyroxine (SYNTHROID, LEVOTHROID) 175 MCG tablet Take 1 (one) tablet (175 mcg total) by mouth daily . Anastacia Randle MD lisinopriL (PRINIVIL,ZESTRIL) 10 MG tablet Take 1 (one) tablet (10 mg total) by mouth daily with lunch Start: 08/25/21. 08/25/21 Mary Monaco CNP magnesium oxide (MAG-OX) 400 mg (241.3 mg magnesium) tablet Take 1 (one) tablet (400 mg total) by mouth daily Start: 01/09/23. 01/09/23 02/08/23 Elier Mejia MD metFORMIN (GLUCOPHAGE-XR) 500 MG 24 hr tablet Take 1 (one) tablet (500 mg total) by mouth 2 (two) times a day . Anastacia Randle MD potassium chloride SA (K-DUR,KLOR-CON) 20 MEQ tablet Take 1 (one) tablet (20 mEq total) by mouth daily . 01/15/23 Sarah Mabry DO rosuvastatin (CRESTOR) 20 MG tablet Take 1 (one) tablet (20 mg total) by mouth nightly . Anastacia Randle MD tamsulosin (FLOMAX) 0.4 mg capsule Take 1 (one) capsule (0.4 mg total) by mouth daily . Anastacia Randle MD therapeutic multivitamin (THERAGRAN) tablet Take 1 (one) tablet by mouth daily . Anastacia Randle MD traZODone (DESYREL) 50 MG tablet Take 0.5 (one-half) tablet (25 mg total) by mouth nightly as needed . Anastacia Randle MD aspirin 81 MG EC tablet Take 1 (one) tablet (81 mg total) by mouth daily for 2 doses Start: 01/09/23. 01/09/23 01/15/23 Elier Mejia MD atorvastatin (LIPITOR) 40 MG tablet Take 1 (one) tablet (40 mg total) by mouth nightly . 01/08/23 01/15/23 Elier Mejia MD furosemide (LASIX) 20 MG tablet Take 2 (two) tablets (40 mg total) by mouth daily . 09/25/21 01/15/23Ira Meyers CNP insulin glargine (Lantus Solostar U-100 Insulin) 100 unit/mL (3 mL) InPn Inject 5 (five) Units under the skin nightly . 01/08/23 01/15/23 Elier Mejia MD potassium chloride SA (K-DUR,KLOR-CON) 20 MEQ tablet Take 1 (one) tablet (20 mEq total) by mouth daily . 09/25/21 01/15/23 Ira Meyers CNP Current HOSPITAL Medications: Scheduled Meds: Continuous Infusions: PRN Meds: Past Medical History Past Medical History: Diagnosis Date Arthritis Back pain CHF (congestive heart failure) (HCC) COPD (chronic obstructive pulmonary disease) (HCC) Coronary artery disease Diabetes mellitus (HCC) Diabetes mellitus, type 2 (HCC) Disease of thyroid gland GERD (gastroesophageal reflux disease) Hernia of abdominal wall Hyperlipidemia Hypertension Myocardial infarction (HCC) Sleep apnea, obstructive refuses to use c-pap Stroke (HCC) Past Surgical History Past Surgical History: Procedure Laterality Date CABG AVR W/ MAZE Bilateral 08/12/2021 Procedure: CORONARY ARTERY BYPASS GRAFT TIMES THREE (krueger-lad, svg-d1, svg- drca)WITH ENDOVEIN HARVEST, Aortic valve replacement (27mm Paul Inspiris), full LA MAZE ([employer]compass RFA box, RFA HEATHER, cryoRA caval and RAA line), LEFT ATRIAL APPENDAGE LIGATION (40mm AtriCLIP), TRANSESOPHAGEAL ECHOCARDIOGRAM; Surgeon: Luis Beasley MD; Location: [facility] NEURO OR; Service: Cardiothoracic CARDIAC CATHETERIZATION CARDIAC CATHETERIZATION Bilateral 07/01/2021 No intervention, right radial CARDIAC CATHETERIZATION N/A 07/01/2021 Procedure: Coronary Angiogram; Surgeon: Shmuel Villalpando MD; Location: [facility]; Service: Cardiovascular CARDIAC CATHETERIZATION N/A 07/01/2021 Procedure: Right Heart Cath; Surgeon: Shmuel Villalpando MD; Location: [facility]; Service: Cardiovascular CARDIAC CATHETERIZATION N/A 07/01/2021 Procedure: Left Ventriculogram; Surgeon: Shmuel Villalpando MD; Location: [facility]; Service: Cardiovascular CARDIAC CATHETERIZATION N/A 07/01/2021 Procedure: Left Heart Cath; Surgeon: Shmuel Villalpando MD; Location: [facility]; Service: Cardiovascular cataracts removed Bilateral CORONARY STENT PLACEMENT EP - INTERVENTION N/A 08/24/2021 Procedure: Cardioversion/CTA; Surgeon: Abhishek Lauren MD; Location: [facility] EP LAB; Service: Cardiovascular HERNIA REPAIR W/HYDROCELE Right Family History Family History Problem Relation Age of Onset Heart disease Father Social History Social History: Home Living Obtained Home Living and PLOF info from: Patient Lives With: Spouse Type of Home: House Home Layout: Two level, Bed and full bath upstairs, 1/2 bath on main level Steps to enter home: Yes Rails to enter home: 2 rails Number of stairs to enter home: 5 Bathroom Shower/Tub: Walk-in shower Bathroom Toilet: Standard Bathroom Equipment: Shower chair, Grab bars in shower Mobility Equipment: Wheeled walker, Cane Additional Objective Details - Home Livin) AD used at baseline Prior Level of Function Level of Bishop - Transfers/Ambulation/Mobility: Independent with functional transfers, Independent with household ambulation, Independent with community ambulation Level of Bishop - ADLs: Independent Level of Bishop - Homemaking: Independent Driving: Patient drives Functional History: Functional Assessment Bladder Continence Pre-Hospital Bladder Continence: (presumed continent) Current Bladder Continence: (presumed ontinent) Medication: Yes Medication Type: Flomax Bowel Continence Date of Last BM: 01/12/23 Pre-Hospital Bowel Continence: (presumed continent) Current Bowel Continence: (presumed Coninent) Bowel Medication: Yes Medication Type: Miralax, Senna S Prior Functioning Everyday Activities Self Care: 3 - Independent Indoor Mobility (Ambulation): 3 - Independent Stairs: 3 - Independent Functional Cognition: 3 - Independent Prior Device Use Manual W/C: No Motorized W/C or Scooter: No Mechanical Lift: No Walker: No Orthotics/Prosthetics: No Functional Issues Balance: sitting static and dynamic - supervision , standing static SB dynamic CG Strength: moderate Range of Motion: limited all ectrm Non-FIM Functional Assessment Eating Pre-Morb: Independent Now: Min. Assist/Contact Guard Goal: Independent Grooming/Hygiene Pre-Morb: Independent Now: Min Assist/Contact Guard Goal: Independent Upper Ext Dressing Pre-Morb: Independent Now: Not Evaluated Goal: Independent Lower Ext Dressing Pre-Morb: Independent Now: Min Assist/Contact Guard Goal: Independent Bladder Management Pre-Morb: Independent Now: Min Assist/Contact Guard Goal: Independent Bowel Management Pre-Morb: Independent Now: Min Assist/Contact Guard Goal: Independent Bed Mobility Pre-Morb: Independent Now: Supervision (hand rails) Goal: Independent Supine-Sit Pre-Morb: Independent Now: Supervision (hand rails) Goal: Independent Sit-Stand Pre-Morb: Independent Now: Min Assist/Contact Guard Goal: Independent Transfer Pre-Morb: Independent Now: Min Assist/Contact Guard Goal: Independent Toilet Transfer Pre-Morb: Independent Now: Min Assist/Contact Guard Goal: Independent Ambulation Pre-Morb: Independent Now: Min Assist/Contact Guard Goal: Independent Expression Pre-Morb: Independent Now: Independent Goal: Independent Memory Pre-Morb: Independent Now: Min Assist/Contact Guard Goal: Independent Completed Therapy Evaluations Therapy: PT, OT, ACADEMIC SERVICES PROFESSIONAL Physical Exam There were no vitals taken for this visit. General: no acute distress, awake, conversant. + Dysarthria. Mild left facial droop HEENT: EOMI grossly, normal hearing Respiratory: normal respiratory effort, no respiratory distress Cardiovascular: extremities well-perfused Abdomen: non-tender, non-distended. Soft Musculoskeletal: No joint swelling Neuro: alert, Dysarthria & comprehensible, L hemiparesis Left side 4-4+/5. Right side 5/5. No ankle clonus Psychiatric: pleasant, cooperative. Tearful at times Skin: no rashes visualized MENTAL STATUS: Alertness, Attention & Concentration: Normal Communication: Normal Orientation: Normal Memory, Recent & Remote: Normal CRANIAL NERVES: II, III: Pupils: PER III, IV, : Eye Movements: Normal (EOMI, No ptosis, No nystagmus) V - Facial Sensation: Normal VII: Face Symmetry & Strength: Mild facial droop VIII - Hearing: Normal IX, X - Palate:: Normal XI - Shoulder Shrug: Normal XII - Tongue Protrusion: Normal GAIT: Unable to walk due to no assistance to safely evaluate Tone: Normal SENSATION: Light Touch: Normal Laboratory Data I have reviewed the patient's relevant labs. Lab Results Component Value Date ALBUMIN 3.7 01/06/2023 ALT 21 01/06/2023 AST 20 01/06/2023 BUN 33 (H) 01/15/2023 CALCIUM 8.8 01/15/2023 CL 102 01/15/2023 CHOL 125 01/06/2023 CREATININE 1.52 (H) 01/15/2023 GLUCOSE 143 (H) 01/15/2023 HDL 37 (L) 01/06/2023 HCT 36.2 (L) 01/09/2023 HGB 12.2 (L) 01/09/2023 HGBA1C 6.6 (H) 01/06/2023 MG 2.4 01/13/2023 PHOS 3.5 01/07/2023 PLT 134 (L) 01/09/2023 K 4.8 01/15/2023 NA 137 01/15/2023 TRIG 110 01/06/2023 WBC 7.49 01/09/2023 Diagnostic Studies I have reviewed the patient's relevant imaging. MRI & CT Studies: (last 6 months) CT Head Or Brain Without Contrast Final Result by Salas Goldstein MD (01/07/2023 0661) 1. Continued evolution of the area of infarction in the right posterior frontal and temporal lobe involving the operculum with findings consistent with petechial hemorrhage as noted on the prior examination consistent with laminar necrosis. A telephone call regarding the findings in the study was made to and acknowledged by Esha, the nurse practitioner, in the, in the [facility] at 6:20 a.m. on 01/07/2023. Workstation ID: [id number] CT Angiogram Brain With Perfusion Final Result by Salas Goldstein MD (01/06/2023 0531) 1. Improvement in the appearance of the intracranial vessels. Previously noted abnormality in the M2 segment of the right MCA is no longer visualized with patent appearance of the MCA bilaterally. Distal distributions appear symmetric. 2. Better visualization of the posterior circulation. Dominant V4 on the right with calcific plaquewithout flow-limiting stenosis. 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 The distal V4 segment on the left is not visualized. A telephone call regarding the findings in the examination was made to and acknowledged by Dr. Baltazar from neurology at 5:30 a.m. on 01/06/2023. Workstation ID: [id number] CT Head Without Contrast (Stroke) Final Result by Salas Goldstein MD (01/06/2023 0510) 1. Subtle low-density within the llamas radiata on the right. Early area of infarction not excluded. 2. Hyperdensity within the distal right MCA not as conspicuous as on the prior study. 3. Small vessel ischemic changes. 4. Atrophy. Workstation ID: [id number] CT Angiogram Head Neck (STROKE) Final Result by Salas Goldstein MD (01/06/2023 7123) 1. Calcific plaque in the carotid bifurcations bilaterally, worse on the left than the right. Thereis approximately 40-50% stenosis in the left carotid bifurcation. 2. Distal right MCA superior division occlusion as described above. 3. Right vertebral artery is dominant demonstrates diffuse calcific plaque with moderate to severe stenosis throughout the V1 and V2 segments. Additional high-grade stenosis with soft plaque is also seen in the proximal V4 segment.The left vertebral artery is diffusely hypoplastic. V4 segment on the left is occluded. There is faint contrast seen within the left PICA. A telephone call regarding the findings examination was made to and acknowledged by Dr. Baltazar from neurology at 3:20 a.m. on 01/06/2023. Workstation ID: [id number] CT Cervical Spine Without Contrast Final Result by Salas Goldstein MD (01/06/2023 0239) 1. Examination limited by patient positioning. 2. No gross evidence of fracture. 3. Multilevel cervical spondylosis. 4. Dense calcific plaque with stenosis in the visualized portion of the right vertebral artery. Workstation ID: [id number] ECG 12 Lead Result Date: 01/11/2023 Sinus rhythm with 1st degree AV block with occasional Premature ventricular complexes and Prematureatrial complexes Nonspecific ST abnormality Prolonged QT Abnormal ECG ECG Cart Interpretation - seephysician note for interpretation. Confirmed by Mahnaz Morales ([id number]) on 01/11/2023 3:04:[address] Head Or Brain Without Contrast Result Date: 01/07/2023 EXAMINATION: CT HEAD OR BRAIN WITHOUT CONTRAST HISTORY: F/U stroke, ? petechial hemorrhage Injury/Trauma or Illness?:Illness/Other How long have you had these symptoms (acute/chronic)?:Acute Reason for exam?:F/U stroke, ? petechial hemorrhage Type of Exam?:Subsequent/Follow-up Additional signs and symptoms?:F/U stroke, ? petechial hemorrhage I63.9 Acute ischemic stroke (HCC)Injury/Trauma or Illness?:Illness/Other How long have you had these symptoms (acute/chronic)?:AcuteF/U stroke, ? petechialhemorrhage COMPARISON: Head CT dated 01/06/2023 at 8:54 p.m.. CONTRAST: None. TECHNIQUE CT Head with axial, coronal and sagittal reformats. Dose reduction techniques were achieved by using automated exposure control and/or adjustment of mA and/or kV according to patient size and/or use of iterativereconstruction technique. FINDINGS: FINDINGS: POSTOPERATIVE CHANGES: None. BRAIN PARENCHYMA: There is low density now appreciated consistent with an evolving infarction in the region of the posteriorright frontal lobe and associated operculum. There is subtle hyperdensity within the cortex consistent with petechial hemorrhage. This is consistent with laminar necrosis. No midline shift or herniation is seen. There is patchy low-density in the white matter consistent with small vessel ischemic change in old lacunar infarctions are present in the centrum semiovale bilaterally. VENTRICLES/EXTRA-AXIAL SPACES: Ventricles and extraventricular spaces are within normal limits for patient's age. VESSELS: No hyperdense intraluminal thrombus. Vascular SINUSES/MASTOIDS:Thickening with cyst or polyp formation in the base of the left maxillary sinus. Erika bullosa bilaterally. S-shaped nasal septal deviation. Mastoids and middle ears are clear. MSK: No displaced or depressed calvarial fracture. OTHER: 1. Continued evolution of the area of infarction in the right posterior frontal and temporal lobe involving the operculum with findings consistent with petechial hemorrhage as noted on the prior examination consistent with laminar necrosis. A telephone call regarding the findings in the study was made to and acknowledged by Esha the nurse practitioner, in the, in the [facility] at 6:20 a.m. on 01/07/2023. Workstation ID: [id number] CT Head Or Brain Without Contrast Result Date: 01/06/2023 EXAMINATION: CT Head without Contrast HISTORY: Stroke, follow up To be completed 18-30 hours after thrombolytic (alteplase, tenecteplase) initiated or intervention complete Radiology to call Neurology on-call with critical results. COMPARISON: CT head, 01/06/2023 TECHNIQUE: Multiple axial noncontrast images of the brain were obtained and reformatted according to the standard protocol. Q DOCUMENTATION: At least one of the following dose reduction techniques was utilized: Iterative reconstruction, and/or Automatic Exposure Control, and/or mA/kV adjustment based on body size. FINDINGS: Infarct/Vascular: There is a small area of evolving infarction within the posterolateral right frontal lobe and involving a portion of the posterior right insula. There is a small area of very subtle hyperdensity within the subinsular region which may represent a small area of petechial hemorrhage. Patchy areas of decreased attenuation throughout the supratentorial white matter are nonspecific but commonly associated chronic small vessel ischemic disease. Intracranial Mass: No evidence of intracranial mass. CSF Spaces: Mild generalized parenchymal atrophy. No change since prior exam. Calvarium and Scalp: Unremarkable. Mastoid Air Cells: Clear. Paranasal Sinuses and Orbits: Mild lobulated mucosal thickening along the alveolar recess of the left maxillary sinus. The orbits are unremarkable. There is a small evolving infarction within the posterolateral right frontal lobe and adjacent posterior right insula. There is very subtle hyperdensity within the subinsular region which may represent minimal petechial hemorrhage. Continued follow-up recommended. Workstation ID: [id number] XR Modifed Barium Swallow Result Date: 01/06/2023 EXAMINATION: XR MODIFIED BARIUM SWALLOW HISTORY: dysphagia Dx: I63.9 (Acute ischemic stroke (HCC)) Injury/Trauma or Illness?:Illness/Other How long have you had these symptoms (acute/chronic)?:Unknown CONTRAST: BARIUM SULFATE 40 % (W/V), 30% (W/W) ORAL PASTE - 1 Dose, BARIUM SULFATE 40 % (W/V), 30 % (W/W) ORAL SUSPENSION - 1 Dose, BARIUM SULFATE 81 % (W/W) ORAL POWDER - 1 Dose, FLUOROSCOPY DOSE: Ka,r mGy: Fluoro dose in Ka,r mGy: 4.41 TECHNIQUE: Modified barium swallow performed with speech therapy. 372 fluoroscopic images obtained. FINDINGS: The prevertebral soft tissues are normal. Oral phase: Moderately impaired. Pharyngeal phase: Mild to moderately impaired. Penetration: During swallowing with thin liquid and nectar. Aspiration: Aspiration occurred during swallowing with thin liquid. Mild to moderately impaired pharyngeal phase of swallowing with penetration and aspiration of thin liquid. Please see speech therapy recommendations Workstation ID: [id number] US Renal Only Result Date: 01/06/2023 EXAMINATION: RENAL ULTRASOUND, 01/06/2023 HISTORY: Dx: I63.9 (Acute ischemic stroke (HCC)) Injury/Trauma or Illness?:Illness/Other How long have you had these symptoms (acute/chronic)?:Unknown eval, CKD COMPARISON FILMS: None. FINDINGS: Static images from real-time examination using grayscale, color Doppler sonography are provided. The study overall is slightly limited due to overlying bowel gas.The kidneys measure as follows: Right kidney: 11.5 x 6.2 x 5.7 cm, volume 213.0 mL. Left kidney: 12.4 x 7.2 x 5.5 cm, volume 256.3 mL. There is an anechoic lesion in the upper pole of the right kidney measuring 0.9 x 1.2 x 1.0 cm. There is an anechoic lesion in the mid pole of the left kidney measuring 1.4 x 1.4 x 1.4 cm. These have thin cedeño, good through transmission. No other mass, hydronephrosis, nephrolithiasis or perinephric fluid collections. 1. Except for a simple cyst in the right as well as left kidney no acute process such as hydronephrosis. The kidneys are essentially normal. KKV/sjk Workstation ID: [id number] Echocardiogram complete w contrast Result Date: 01/06/2023 Patient Info Name: KEVIN WHITE Age: 82 years : 1940 Gender: Male Ht: 183 cm Wt: 112 kg BSA: 2.41 m2 HR: 69 bpm BP: 165 / 64 mmHg Technical Quality: Poor Exam Date: 01/06/2023 8:38 AM Patient Status: Inpatient Upscale Security Officer: Sheryl Smith RDCS, RVTExam Type: ECHOCARDIOGRAM COMPLETE W CONTRAST Study Info Indications G45.9 - Transient cerebral ischemic attack, unspecified Attending Physician: ELLEN SOTO Referring Physician: XOCHITL RAMOS. ; [id number] Primary Nurse: MINGLER OPERATOR BMI: 33.36 kg/m2 Summary 1. This study was technically limited, Definity IV contrast was used to enhance endocardial definition. 2. Left ventricular systolic func tion is normal with an ejection fraction by Biplane Method of Discs of 59 %. 3. And aortic bioprosthesis (27 mm Inspiris) appears well-seated, but is not well visualized. 4. There is no bioprostheticaortic valve stenosis with a peak velocity of 2.1 m/s, mean gradient of 10 mmHg, and aortic valve area of 1.8 cm2. 5. Left atrial chamber is mildly enlarged with a left atrial volume index of 41 ml/m2 by BP MOD. 6. Compared to the prior study from 11/13/2021, there is no significant interval change.History/Risk Factors Hypertension: Yes Dyslipidemia: Yes Diabetic Therapy: Oral Myocardial Infarction (TN): Yes Chronic Lung Disease: Yes Coronary Artery Disease (CAD) Yes Diabetes Mellitus: Yes COPD: Not Treated Tobacco Use: Never Cerebrovascular Disease: CVA Family History: Coronary Artery Disease Valve Disease - AV: Severe History/Risk Factors Patient has prior CABG on 08/12/2021. Prior Interventions Pacemaker: No PCI: Yes CABG: Yes Valve Surgery: Yes Type of Valve Surgery: AV Bioprosthetic Replacement ICD: No Date of CAB08/12/2021 Most Recent Valve Surgery: 08/12/2021 Transcatheter Intervention: HEATHER Closure Replacement Valve Size: 27 mm Inspiris Replacement Valve Size: 40mm atriclip Procedure(s): Complete two-dimensional, color flow and Doppler transthoracic echocardiogram is performed with contrast. Definity explained to patient. Patient verbalizes understanding and agrees to proceed. Definity 1.3ml/8.7ml normal sterile saline 2 ml total given IV over 30-60 seconds. Left Ventricle Left ventricular chamber dimension is normal. Left ventricular systolic function is normal with anejection fraction by Biplane Method of Discs of 59 %. Normal left ventricular mass. Left ventricular segmental wall motion is normal. There is normal diastolic function. E/e' average 11.9 is not elevated consistent with normal LA pressure. Right Ventricle Right ventricular chamber dimension is normal. Right ventricular systolic function is normal. Left Atria Left atrial chamber is mildly enlargedwith a left atrial volume index of 41 ml/m2 by BP MOD. Right Atria Right atrial chamber dimension is normal. Aortic Valve And aortic bioprosthesis (27 mm Inspiris) appears well-seated, but is not well visualized. There is no sclerosis of the bioprosthetic aortic valve leaflets. There is no regurgitation of the bioprosthetic aortic valve. There is no bioprosthetic aortic valve stenosis with a peakvelocity of 2.1 m/s, mean gradient of 10 mmHg, and aortic valve area of 1.8 cm2. Pulmonic Valve Thepulmonic valve is normal. There is no pulmonic valve stenosis. There is trace pulmonic regurgitation. Mitral Valve The mitral valve has normal leaflets. There is no mitral valve stenosis. Moderate mitral annular calcification. There is trace mitral valve regurgitation. Tricuspid Valve The tricuspidvalve leaflets are normal. There is no significant tricuspid valve stenosis. There is trace tricuspid valve regurgitation. There is no pulmonary hypertension, estimated right ventricle systolic pressure is 37 mmHg. Pericardium/Pleural The pericardium appears normal. There is no pericardial effusion. Inferior Vena Cava Normal inferior vena cava with >50% collapse upon inspiration consistent with normal right atrial pressure. Aorta The aortic measurements are indexed to age and body surface area. The aortic root is normal measuring 3.5 cm with an index of 1.4 cm/m2. The proximal ascending aorta is normal measuring 3.5 cm with an index of 1.4 cm/m2. Left Ventricular Outflow Tract Name Value Normal LVOT 2D LVOT Diameter 2.2 cm LVOT Doppler LVOT Peak Velocity 1.1 m/s LVOT Mean Gradient 1 mmHg LVOT VTI 20 cm LVOT VTI/AV VTI Ratio 0.5 LVOT Stroke Volume 78 ml LVOT Stroke Index 32.10 ml/m2 Pulmonic Valve --- Name Value Normal PV 2D RVOT Diameter (2D) 2.7 cm 1.7-2.7 PV Regurgitation Doppler ------- MA Peak Velocity 92.60 cm/s Mitral Valve Name Value Normal ------ MV Doppler MV Decel [place] 643 cm/s2 MV PHT 43 ms MV Area (PHT) 5.2 cm2 4.0-5.0 MV Diastolic Function MV E Peak Velocity 0.95 m/s MV A Peak Velocity 0.85 m/s MV E/A 1.1 MV Decel Time 147 ms MV Annular TDI MV Septal e' Velocity 6.7 cm/s >=8.0 MV E/e' (Septal) 14.1 <=8.0 MV Lateral e' Velocity 9.8 cm/s >=10.0 MV E/e' (Lateral) 9.7 <=8.0 MV e' Average 8.25 cm/s MV E/e' (Average) 11.9 Tricuspid Valve Name Value Normal TV Regurgitation Doppler TR Peak Velocity 2.90 m/s TR Peak Gradient 34 mmHg Estimated PAP/RSVP RA Pressure 3mmHg <=5 PA Systolic Pressure 37 mmHg <=36 RV Systolic Pressure 37 mmHg <36 Aorta --------- Name Value Normal Ascending Aorta Ao Root Diameter (2D) 3.5 cm 3.1-3.7 Ao Root Diam Index (2D) 1.4 cm/m2 1.5-1.9 Prox Asc Ao Diameter 3.5 cm 2.6-3.4 Prox Asc Ao Diameter Index 1.4 cm/m2 1.3-1.7 Venous Name Value Normal ------ IVC/SVC IVC Diameter (Exp 2D) 2.0 cm <=2.1 Aortic Valve ----- Name Value Normal AV Doppler AV Peak Velocity 2.1 m/s AV Mean Gradient 10 mmHg AV VTI 44 cmAV Area (Cont Eq VTI) 1.8 cm2 AV Area Index (Cont Eq VTI) 1 cm2/m2 AV Area (Cont Eq Clemente) 1.9 cm2 AVArea Index (Cont Eq Clemente) 1 cm2/m2 LVOT Vmax/AV Vmax 0.50 LVOT VTI/AV VTI Ratio 0.5 AV [id number] LVOT Area 3.8 cm2 Ventricles Name Value Normal -------- LV Dimensions 2D/MM IVS Diastolic Thickness (2D) 1.8 cm 0.6-1.0 LVID Diastole (2D) 4.9 cm 4.2-5.8 LVIW Diastolic Thickness (2D) 1.3 cm 0.6-1.0 LVID Systole (2D) 4.0 cm 2.5-4.0 LVOT Diameter 2.2 cm LV Mass (2D Cubed) 328.70 g 88.00-224.00 LV Mass Index (2D Cubed) 136 g/m2 49-115 Relative Wall Thickness (2D) 0.53 <=0.42 LV Fractional Shortening/Ejection [id number] LV Fractional Shortening (2D) 18 % 25-43 LV EF (2D Teicholz) 38 % 52-72 LV Diastolic Volume (4C MOD) 142 ml LV Systolic Volume (4C MOD) 61 ml LV EF (4C MOD) 57 % LV Diastolic Volume (2C MOD) 130 ml LV Systolic Volume (2C MOD) 50 ml LV EF (2C MOD) 61 % LV Diastolic Volume (BP MOD) 141 ml 62-150 LV Diastolic Volume Index (BP MOD) 58 ml/m2 34-74 LV Systolic Volume (BP MOD) 58 ml 21-61 LV Systolic Volume Index (BP MOD) 24 ml/m2 11-31 LV EF (BP MOD) 59 % 55-70 LV Diastolic Length (4C) 8.7 cm LV Systolic Length (4C) 7.9 cmLV End Diastolic Volume (BP A-L) 140 ml LV End Systolic Volume (BP A-L) 58 ml LV EF (BP A-L) 59 % LV Stroke Volume (4C MOD) 81 ml LV SI (4C MOD) 33.58 ml/m2 RV Dimensions 2D/MM RV Basal Diastolic Dimension 3.8 cm 2.5-4.1 RV Mid-Cavity Diastolic Dimension 3.4 cm 1.9- 3.5 RV Systolic Function RV s' Velocity 0.09 m/s 0.10-0.19 Atria Name Value Normal LA Dimensions LA Dimension (2D) 3.9 cm 3.0-4.1 LA Dimen Index (2D) 1.6 cm/m2 LA Area (4C) 29.1 c m2 LA Length (4C) 7.3 cm LA Area (2C) 24.7 cm2 LA Length (2C) 5.9 cm LA Volume (4C MOD) 95 ml LA Volume (2C MOD) 82 ml LA Volume (4C A-L) 98 ml LA Volume (2C A-L) 88 ml LA Volume (BP A-L) 103 ml LA Volume Index (BP A-L) 43 ml/m2 <=34 LA Volume (BP MOD) 98 ml LA Volume Index (BP MOD) 41 ml/m2 16-34 RA Dimensions RA Systolic Major Winston Length (4C) 5.93 cm <=5.30 RA Area (4C) 23.0 cm2 <=18.0 RA Area (4C) Index 10 cm2/m2 RA ESV (4C MOD) 71 ml 18-32 RA ESV Index (4C MOD) 29 ml/m2 <=32 Report Signatures Finalized by Radha Lawler MD on 01/06/2023 10:39 AM LA Pressure: normal CT Angiogram Brain With Perfusion Result Date: 01/06/2023 EXAMINATION: CT ANGIOGRAM BRAIN WITH PERFUSION HISTORY: r mca syndrome Injury/Trauma or Illness?:Illness/Other How long have you had these symptoms (acute/chronic)?:Acute Reason for exam?:r mca syndrome Type of Exam?:Initial Additional signs and symptoms?:r mca syndrome I63.9 Acute ischemic stroke ( HCC)Injury/Trauma or Illness?:Illness/Other How long have you had these symptoms (acute/chronic)?:Acuter mca syndrome COMPARISON: Head CT and CT angiogram performed at [facility] dent dated 01/06/2023 at 2:[address] dated 01/06/2023 at 4:39 a.m.. TECHNIQUE: CT angiogram of the head was performed. Coronal, sagittal and 3-D reformats were created and reviewed. Dose reduction techniques were achieved by using automated exposure control and/or adjustment of mA and/or kV according to patient size and/or use of iterative reconstruction technique CONTRAST: Isovue 370 FINDINGS: BRAIN: Perfusion images demonstrate 0 mL volume of hypoperfusion with T-max greater than 6 seconds and 0 mLvolume of core infarction with cerebral of flow less than 30%. ANTERIOR CIRCULATION:The intra petrous, intra cavernous, and supraclinoid ICA are patent. LILI patent bilaterally. MCA patent bilaterally. No large vessel occlusion or thrombus. No aneurysm. Distal distributions now appear symmetric. POSTERIOR CIRCULATION: Dominant right V4 segment demonstrates calcific plaque without flow-limiting stenosis. 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 No distal V4 segment is seen. This is hypoplastic or occluded. Basilar artery is patent. Basilar tip is patent. SCA and [employer] patent. Distal [employer] distributions are symmetric. 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 This is better visualized as compared to the prior study. OTHER: No pathologic enhancing lesions are seen. 1. Improvement in the appearance of the intracranial vessels. Previously noted abnormality in the M2 segment of the right MCA is no longer visualized with patent appearance of the MCA bilaterally. Distal distributions appear symmetric. 2. Better visualization of the posterior circulation. Dominant V4 on the right with calcific plaque without flow-limiting stenosis. 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 The distal V4 segment on the left is not visualized. A telephone call regarding the findings in the examination was made to and acknowledged by Dr. Baltazar from neurology at 5:30 a.m. on 01/06/2023. Workstation ID: [id number] CT Head Without Contrast (Stroke) Result Date: 01/06/2023 EXAMINATION: CT HEAD WITHOUT CONTRAST (STROKE) HISTORY: r mca syndrome Injury/Trauma or Illness?:Illness/Other How long have you had these symptoms (acute/chronic)?:Acute Reason for exam?:r mca syndrome Type of Exam?:Initial Additional signs and symptoms?:r mca syndrome Injury/Trauma or Illness?:Ill ness/Other How long have you had these symptoms (acute/chronic)?:Acuter mca syndrome COMPARISON: Head CT dated 01/06/2023 at 1:[address] angiogram of the head and neck dated 01/06/2023 at 2:33 a.m.. CONTRAST: None. TECHNIQUE CT Head with axial, coronal and sagittal reformats. Dose reduction techniques were achieved by using automated exposure control and/or adjustment of mA and/or kV according to patient size and/or use of iterative reconstruction technique. FINDINGS: FINDINGS: POSTOPERATIVE CHANGES: None. BRAIN PARENCHYMA: There is very subtle hypodensity present within the llamas radiata on the right, image 31/series 7. No intraparenchymal or extra-axial hemorrhage. No mass effect. No midline shift or herniation. Patchy low-density in the white matter also noted consistent with small vessel ischemic change. VENTRICLES/EXTRA-AXIAL SPACES: Enlarged, consistent with atrophy. VESSELS: The subtle hyperdensity previously noted in the right MCA is less conspicuous, image 18/series 7. Vascular calcifications are noted. Please refer to the CT angiogram report. SINUSES/MASTOIDS:Visualizedsinuses are clear. Erika bullosa bilaterally. Nasal septal deviation to the right with spur formation. Mastoids and middle ears are clear. MSK: No displaced or depressed calvarial fracture. OTHER: 1. Subtle low-density within the llamas radiata on the right. Early area of infarction not excluded. 2. Hyperdensity within the distal right MCA not as conspicuous as on the prior study. 3. Small vessel ischemic changes. 4. Atrophy. Workstation ID: [id number] XR Chest 1 View Result Date: 01/06/2023 EXAMINATION: XR CHEST PA/AP HISTORY: ORDERING SYSTEM PROVIDED HISTORY: Large stroke, mechanical fall, TECHNOLOGIST PROVIDED HISTORY: Illness/Other Reason for exam: stroke, mechanical fall Cancer History: u Surgery, RadiationHistory: u Encounter Type: Initial Additional signs and symptoms: . ORDERING SYSTEM PROVIDED DIAGNOSIS CODES: I63.9 Acute ischemic stroke (HCC) N28.9 Renal insufficiency COMPARISON: PA and lateral views of the chest dated 09/25/2021. TECHNIQUE: AP semi-erect portable chest radiograph performed. FINDINGS: Stable median sternotomy wires, mediastinal surgical clips, valve replacement and left atrial appendage clip. The trachea is midline. Stable mild prominence of the cardiomediastinal silhouette and stable mild atheromatous calcification at the aortic arch. Mild elevation of the right hemidiaphragm. There is no consolidation or infiltrates. There is no pleural effusionor pulmonary vascular congestion. There is no pneumothorax. The bony structures are osteopenic. There is no acute osseous abnormality. There is no acute cardiopulmonary process. Workstation ID: [id number] CT Angiogram Head Neck (STROKE) Result Date: 01/06/2023 EXAMINATION: CT ANGIOGRAM HEAD NECK (STROKE) HISTORY: LAMS of 5, appears to have a large clot. Toldby the stroke neurologist Dr. Raúl Baltazar to proceed with CTA at this time since there is a delay for ground transportation.; stroke alert, LAMS=5 Injury/Trauma or Illness?:Illness/Other How long have you had these symptoms (acute/chronic)?:Acute Reason for exam?:stroke alert, LAMS=5 Type of Exam?:Initial Additional signs and symptoms?:LKW: 0000 01/06/23 I63.9 Acute ischemic stroke (HCC)Injury/Trauma or Illness?:Illness/Other How long have you had these symptoms (acute/chronic)?:AcuteLAMS of5, appears to have a large clot. Told by the stroke neurologist Dr. Raúl Baltazar to proceed with CTA at this time since there is a delay for ground transportation.; stroke alert, LAMS=5 COMPARISON:Head CT dated 01/06/2023 at 1:46 a.m.. TECHNIQUE: CT angiogram of the head and neck was performed. Coronal, sagittal and 3-D reformats were created and reviewed. Carotid stenosis measurements were made according to the NASCET criteria. Dose reduction techniques were achieved by using automated exposure control and/or adjustment of mA and/or kV according to patient size and/or use of iterative reconstruction technique CONTRAST: 75 mL of Isovue 370 FINDINGS: NECK: AORTIC ARCH: Calcific plaque in the aortic arch. Allowing for streak artifacts, the origins the great vessels are patent. ANTERIOR CIRCULATION:Common carotid arteries are patent. There is calcific plaque in the carotid bifurcations.No flow-limiting stenosis is present on the right. On the left, there is approximately 45-50% stenosis. Cervical ICA are patent up to the skull base allowing for artifacts from dental work. POSTERIORCIRCULATION: There is diffuse calcific plaque noted in the origin, V1, and V2 segments of the right vertebral artery. There is moderate to severe stenosis present. The right vertebral artery is the dominant vessel. There is a hypoplasti (more content not included)... [id number] Hospital Discharge instructions* Discharge Instr - AVS First Page* Sarah Mabry DO - 01/15/2023 10:40 AM EST Repeat BMP in 2-3 days to check Cr documented in this [id number] Hospital course Narrative* Sarah Mabry DO - 01/15/2023 10:37 AM EST [facility] DISCHARGE SUMMARY Kevin White Account: [id number] Admitted: 01/06/2023 Discharge Date/Time: 01/15/23 10:38 AM Handoff to PCP PCP to address the following Repeat BMP DM management- insulin stopped Clinical Summary Kevin White is a 82 y.o. male with a history of CAD, AFIB s/p cardioversion/MAZE/LA clipping, CHF, IDDM type 2, who presented to [facility] 01/06/2023 from [facility] with left sided weakness and garbled speech, s/p [facility] tPA. Admitted to [facility] & found to have [facility]. Course prolonged due to precert. Acute R MCA CVA s/p TPA: CTA H/N 01/06/23 with distal R MCA occlusion s/p TPA. CT brain perfusion after TPA with improved perfusion, noted hypoplastic L V4. CTH 01/07/23 with evolution of acute R MCACVA with petechial hemorrhage, monitor for mental status changes. LDL 66, A1c 6.6 on 01/06/23. TTE 01/06/23 with normal EF 59%, well-seated AVR, LA dilation. Started ASA and transitioned to eliquis 01/11/23. Neurology, [facility] followed Dysphagia: due to above. [employer] followed. Improving on modified diet. HTN: home ACEi, lasix, norvasc. CAD: s/p CABG x3 in 07/[address] Beasley ([facility]). Taken off AC in 04/2022 after discussion with his laboratory secretary Dr. Villalpando, unclear if put on ASA at that time (not on home med list). Home statin ordered. Thrombocytopenia: baseline plts low-normal ~150, have dropped during prior CABG 2021 with neg PF4 then. Plts 91 on 01/07/23. Monitor. AFIB: s/p cardioversions 02/2022 & 08/2021. Followed with EP RACIEL Umm. Admit EKG NSR with 1st degree AVB, PVCs, PACs, QTc 481. S/p MAZE/LA clipping 07/23/21. Continued home Tikosyn. Eliquis as above. AAJY on CKD: unclear stage, 1.4 on admission and trended to 0.9. Renal US 01/06/23 neg. Cr up to 1.6103/16/22. Gentle hydration and trend. Chronic HFpEF: TTE noted. Lasix continued. IDDM2: held home oral. A1c 6.6 on admit. Did not continue lantus at discharge. Discharge Medications Discharge Medications New Medications Details apixaban 5 mg Tab Commonly known as: ELIQUIS Take 1 (one) tablet (5 mg total) by mouth 2 (two) times a day . Quantity: 60 tablet magnesium oxide 400 mg (241.3 mg magnesium) tablet Commonly known as: MAG-OX Take 1 (one) tablet (400 mg total) by mouth daily Start: 01/09/23. Quantity: 30 tablet Modified Medications Details furosemide 20 MG tablet Commonly known as: LASIX What changed: how much to take Take 1 (one) tablet (20 mg total) by mouth daily . Quantity: 30 tablet Medications To Continue Details amLODIPine 10 MG tablet Commonly known as: NORVASC Take 1 (one) tablet (10 mg total) by mouth daily . Quantity: 30 tablet cyanocobalamin 1000 MCG tablet Commonly known as: B-12 Take 1 (one) tablet (1,000 mcg total) by mouth daily . dofetilide 250 MCG capsule Commonly known as: TIKOSYN Take 1 (one) capsule (250 mcg total) by mouth every 12 (twelve) hours . Quantity: 180 capsule esomeprazole 40 MG capsule Commonly known as: NEXIUM Take 1 (one) capsule (40 mg total) by mouth every morning before breakfast . levothyroxine 175 MCG tablet Commonly known as: SYNTHROID, LEVOTHROID Take 1 (one) tablet (175 mcg total) by mouth daily . lisinopriL 10 MG tablet Commonly known as: PRINIVIL,ZESTRIL Take 1 (one) tablet (10 mg total) by mouth daily with lunch Start: 08/25/21. Quantity: 30 tablet metFORMIN 500 MG 24 hr tablet Commonly known as: GLUCOPHAGE-XR Take 1 (one) tablet (500 mg total) by mouth 2 (two) times a day . potassium chloride SA 20 MEQ tablet Commonly known as: K-DUR,KLOR-CON Take 1 (one) tablet (20 mEq total) by mouth daily . Quantity: 30 tablet rosuvastatin 20 MG tablet Commonly known as: CRESTOR Take 1 (one) tablet (20 mg total) by mouth nightly . tamsulosin 0.4 mg capsule Commonly known as: FLOMAX Take 1 (one) capsule (0.4 mg total) by mouth daily . therapeutic multivitamin tablet Commonly known as: THERAGRAN Take 1 (one) tablet by mouth daily . traZODone 50 MG tablet Commonly known as: DESYREL Take 0.5 (one-half) tablet (25 mg total) by mouth nightly as needed . Stopped Medications insulin glargine 100 unit/mL (3 mL) Inpn Commonly known as: Lantus Solostar U-100 Insulin Physician(s) Family: Moi Gibson MD, , Address: [address] [place] [address] [facility] [id number] Follow Up: Christina Branham, [employer] [address] [facility] [address] [place] [phone] Go on 02/01/2023 [facility] Address: [place] [address] Servicing Counties: [phone] Moi Gibson MD [address] [facility] [id number] Follow up Additional Information: Patient seen and examined day of discharge. For more information regarding patient's care, including complete radiology reports, please contact [place] [facility] at Patient instructions, including activity, were given to the patient/family at discharge. Please seethe After Visit Summary in the medical record for details. Time spent on discharge: > 30 minutes Completed by: Sarah Mabry on 01/15/23, 10:38 AM documented in this [id number] History of Present illness Narrative* Giovanna Lott LISW - 01/15/2023 9:33 AM EST Care Management Progress Note Date: 01/15/2023 Time: 9:33 AM Patient Name: Kevin White Date of : 1940 Discharge Plan: D/C Disposition: Rehab Facility Agency/Destination: [facility] Post-Acute Patient Choice 1: [facility] Discharging Transportation Plan: Transportation Type: Auto Discharge Plan Status: DEVELOPMENT AND HOUSING DIRECTOR received notification that precert was approved for [facility] admission today.DEVELOPMENT AND HOUSING DIRECTOR called pt's , who will arrive between 3-4pm to transport to [facility]. Med team, family, and facility updated. * Jackie Patterson RN - 01/15/2023 9:11 AM EST Insurance approval, patient may admit to [facility] * Sheryl Mahmood PTA - 01/15/2023 8:43 AM EST Physical Therapy PHYSICAL THERAPY TREATMENT NOTE Skilled Therapy Needs After Discharge Anticipate Resolution of Current Assessment Limitations Including: Mechanical Barriers Are Skilled Therapy Services Needed After Discharge: Yes Intensity of Skilled Therapy: 5 to 7 days per week Anticipated Duration of Skilled Therapy: Duration 7 - 10 days DME Recommendation: To be determined at next level of care Rehab Potential: Good, For goals Outcomes Measures Prior Function - Basic Mobility Raw Score: 24 Points Prior Function - Basic Mobility % Impaired: 0% AM-PAC Basic Mobility Raw Score: 17 Points AM-PAC Basic Mobility % Impaired: 43.83% Therapy Precautions Orthotic Devices: No Weight Bearing Status: WFL General Rehab Precautions: Fall risk Balance Sitting Balance - Static: Supervision Sitting Balance - Dynamic: Supervision Standing Balance - Static: Stand by assist, without UE support Standing Balance - Dynamic: Contact guard assist, without UE support Standing Balance Treatment: reaching across midline, reaching outside base of support, weight shifting left, weight shifting right, weight shifting anterior, narrow base of support, stepping forward,stepping backward, side stepping, retro walking Skilled Intervention Provided: patient education, verbal cues, visual cues, demonstration For: LE positioning, LE management, sequencing of movement, weight shifting, efficient movement, balance recovery Resulting in: improved balance reactions, improved activity tolerance, improved performance, improved safety, decreased assistance required, decreased fall risk Bed Mobility Rolling: Supervision Supine to Sit: Supervision Sit to Supine: (Pt sitting up in chair at the end of today's session; chair alarm in place) Documentation Nurse: bedrails Skilled Intervention Provided: patient education, verbal cues For: sequencing of movement, efficient movement Resulting in: improved performance, improved functional independence Transfers Sit to Stand: Contact guard assist (x6 trials total throughout session) Documentation Nurse: (no AD) Skilled Intervention Provided: patient education, verbal cues For: proper body mechanics, safety during functional tasks, controlled descent Resulting in: improved balance, improved functional independence Gait/Locomotion Gait Assistance: Contact guard assist Assistive Device: (no AD) Distance: 160 Feet (x2 trials) Rest Breaks: Yes Rest Break Position: seated (seated rest break following each trial) Pattern: step through, R impaired heel strike, L impaired heel strike, R decreased step length, L decreased step length, wide base of support, decreased trunk rotation, decreased arm swing, decreasedcadence (steps per minute) Skilled Intervention Provided: patient education, verbal cues, visual cues For: gait technique, gait sequence, LE positioning, efficient movement, energy conservation techniques, proper body mechanics Resulting in: improved activity tolerance, improved awareness of gait impairments, decreased gait impairments, decreased assistance required, increased upright tolerance for functional tasks, improved safety Home Living Obtained Home Living and PLOF info from: Patient Lives With: Spouse Type of Home: House Home Layout: Two level, Bed and full bath upstairs, 1/2 bath on main level Steps to enter home: Yes Rails to enter home: 2 rails Number of stairs to enter home: 5 Bathroom Shower/Tub: Walk-in shower Bathroom Toilet: Standard Bathroom Equipment: Shower chair, Grab bars in shower Mobility Equipment: Wheeled walker, Cane Additional Objective Details - Home Livin) AD used at baseline Prior Level of Function Level of Bishop - Transfers/Ambulation/Mobility: Independent with functional transfers, Independent with household ambulation, Independent with community ambulation Level of Bishop - ADLs: Independent Level of Bishop - Homemaking: Independent Driving: Patient drives For complete objective data, detailed plan of care and patient education refer to: PT Evaluation flowsheet, PT Evaluation and Treatment flowsheet, PT Treatment flowsheet, patient Plan of Care, Plan of Care progress note, and Patient Education. This note stands as the current Discharge Summary upon patient discharge from the hospital or completion of Physical Therapy Plan of Care. * Amita Nava, OT - 01/14/2023 11:43 AM EST Occupational Therapy OCCUPATIONAL THERAPY TREATMENT NOTE Skilled Therapy Needs After Discharge Are Skilled Therapy Services Needed After Discharge: Yes Intensity of Skilled Therapy: 5 to 7 days per week Anticipated Duration of Skilled Therapy: Duration 7 - 10 days DME Recommendation: (will continue to assess) Outcomes Measures Prior Function Daily Activity Raw Score: 24 Prior Function Daily Activity % Impaired: 0% AM-PAC Daily Activity Raw Score: 18 AM-PAC Daily Activity % Impaired: 46.65% Therapy Precautions Orthotic Devices: No Weight Bearing Status: WFL General Rehab Precautions: Fall risk Cognition Orientation Level: Oriented X4 Executive functioning: Min impairment, Insight Problem Solving: (min impaired) Social Interaction: Dysarthric, Labile (intermittently tearful) Comments: awake, alert, pleasant. +left facial weakness with slurred speech ADL Upper Body Dressing: Minimal assist Lower Body Dressing: Minimal assist Lower Body Dressing - Skilled Intervention Provided: facilitation, patient education, neuromuscularre-education Lower Body Dressing - For: LE positioning, LE management, compensatory strategies, fall prevention Lower Body Dressing - Resulting In: improved activity tolerance, improved performance with ADLs, improved safety Functional Transfers Sit to Stand: Contact guard assist Bed to Chair Transfers: Contact guard assist Balance Treatment Standing Balance - Static: Stand by assist Standing Balance - Dynamic: Contact guard assist, Minimal assist Standing Balance Treatment: picking up object, obstacle avoidance Skilled Intervention Provided: demonstration, facilitation, neuromuscular re- education, patient education For: balance recovery, compensatory strategies Resulting in: improved activity tolerance, improved performance, improved trunk stability Interventions Fine Motor Training: Manipulating objects (snapping, unsnapping, tying, managing food item containers on tray) Skilled Intervention Provided: facilitation, neuromuscular re-education For: compensatory strategies (neuro re-education) Resulting In: improved performance Additional Treatment Details pt with persistent diminished sensation lue, mild weakness distally and mild coordination impairment. challenged pt to participate in various fine motor and dexterity tasks with consistent use of dominant lue. pt instructed in and performed balance tasks for reaching out of base of support and above/below waist to gather adl's supplies from around room. provided cues for engaging core for imrpoved trunk stability and educated in modifications/compensatory strategies for improved safety. pt tolerated well. 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 provided education and encouragement. Home Living Obtained Home Living and PLOF info from: Patient Lives With: Spouse Type of Home: House Home Layout: Two level, Bed and full bath upstairs, 1/2 bath on main level Steps to enter home: Yes Rails to enter home: 2 rails Number of stairs to enter home: 5 Bathroom Shower/Tub: Walk-in shower Bathroom Toilet: Standard Bathroom Equipment: Shower chair, Grab bars in shower Mobility Equipment: Wheeled walker, Cane Additional Objective Details - Home Livin) AD used at baseline Prior Level of Function Level of Bishop - Transfers/Ambulation/Mobility: Independent with functional transfers, Independent with household ambulation, Independent with community ambulation Level of Bishop - ADLs: Independent Level of Bishop - Homemaking: Independent Driving: Patient drives For complete objective data, detailed plan of care and patient education refer to: OT Evaluation flowsheet, OT Evaluation and Treatment flowsheet, OT Treatment flowsheet, patient Plan of Care, Plan of Care progress note, and Patient Education. This note stands as the current Discharge Summary upon patient discharge from the hospital or completion of Occupational Therapy Plan of Care. * Sihra Bates RN - 01/14/2023 10:19 AM EST Care Management Progress Note Date: 01/14/2023 Time: 10:19 AM Patient Name: Kevin White Date of : 1940 Discharge Plan: D/C Disposition: Rehab Facility Agency/Destination: [facility] Post-Ac[facility] Patient Choice 1: [place] [facility] Discharging Transportation Plan: Transportation Type: Auto Discharge Plan Status: Ongoing Per Irina with [facility], precert remains pending at this time. Care Management continues to follow. * Sheryl Mahmood PTA - 01/14/2023 9:43 AM EST Physical Therapy PHYSICAL THERAPY TREATMENT NOTE Skilled Therapy Needs After Discharge Anticipate Resolution of Current Assessment Limitations Including: Mechanical Barriers Are Skilled Therapy Services Needed After Discharge: Yes Intensity of Skilled Therapy: 5 to 7 days per week Anticipated Duration of Skilled Therapy: Duration 7 - 10 days DME Recommendation: To be determined at next level of care Rehab Potential: Good, For goals Outcomes Measures Prior Function - Basic Mobility Raw Score: 24 Points Prior Function - Basic Mobility % Impaired: 0% AM-PAC Basic Mobility Raw Score: 17 Points AM-PAC Basic Mobility % Impaired: 43.83% Therapy Precautions Orthotic Devices: No Weight Bearing Status: WFL General Rehab Precautions: Fall risk Balance Sitting Balance - Static: Supervision Sitting Balance - Dynamic: Supervision Standing Balance - Static: Contact guard assist, without UE support Standing Balance - Dynamic: Contact guard assist, Minimal assist, without UE support Standing Balance Treatment: weight shifting left, weight shifting right, maintaining midline, postural re-education, tandem stance, stepping forward, stepping backward, marching in place Skilled Intervention Provided: patient education, verbal cues, tactile cues, visual cues For: sequencing of movement, efficient movement, LE positioning, balance recovery, weight shifting Resulting in: improved performance, improved safety, decreased fall risk, increased upright tolerance for functional tasks, improved balance reactions Transfers Sit to Stand: Contact guard assist Additional Transfer Trial 2: Yes Sit to Stand Trial 2: Stand by assist (x3 trials) Skilled Intervention Provided: patient education, verbal cues For: proper body mechanics, sequencing of movement, UE positioning, controlled descent Resulting in: improved balance, improved performance, improved functional independence Gait/Locomotion Gait Assistance: Contact guard assist Distance: 120 Feet Rest Breaks: Yes Rest Break Position: seated Additional Gait Trial 2: Yes Gait Assistance Trial 2: Contact guard assist Distance Trial 2: 120 Rest Breaks Trial 2: Yes Rest Break Position Trial 2: seated Pattern: step through, R decreased step length, L decreased step length, R impaired heel strike, L impaired heel strike, decreased trunk rotation, decreased arm swing, decreased moses (steps per minute) Skilled Intervention Provided: patient education, verbal cues, visual cues For: gait technique, gait sequence, efficient movement, proper body mechanics, energy conservation techniques, self-monitoring during activity Resulting in: improved activity tolerance, improved efficiency, improved awareness of gait impairments, decreased gait impairments, improved safety Home Living Obtained Home Living and PLOF info from: Patient Lives With: Spouse Type of Home: House Home Layout: Two level, Bed and full bath upstairs, 1/2 bath on main level Steps to enter home: Yes Rails to enter home: 2 rails Number of stairs to enter home: 5 Bathroom Shower/Tub: Walk-in shower Bathroom Toilet: Standard Bathroom Equipment: Shower chair, Grab bars in shower Mobility Equipment: Wheeled walker, Cane Additional Objective Details - Home Livin) AD used at baseline Prior Level of Function Level of Bishop - Transfers/Ambulation/Mobility: Independent with functional transfers, Independent with household ambulation, Independent with community ambulation Level of Bishop - ADLs: Independent Level of Bishop - Homemaking: Independent Driving: Patient drives For complete objective data, detailed plan of care and patient education refer to: PT Evaluation flowsheet, PT Evaluation and Treatment flowsheet, PT Treatment flowsheet, patient Plan of Care, Plan of Care progress note, and Patient Education. This note stands as the current Discharge Summary upon patient discharge from the hospital or completion of Physical Therapy Plan of Care. * Sarah Mabry, - 01/14/2023 7:33 AM EST [facility] Kevin White 1940 [id number] Assessment/Plan: Kevin White is a 82 y.o. male with a history of CAD, AFIB s/p cardioversion/MAZE/LA clipping, CHF, IDDM type 2, who presented to [facility] 01/06/2023 from [facility] with left sided weakness and garbled speech, s/p [facility] tPA. Admitted to [facility] & found to have acute R MCA CVA. Lisbeth consulted for eventual transfer of care. Course prolonged due to precert. Acute R MCA CVA s/p TPA: CTA H/N 01/06/23 with distal R MCA occlusion s/p TPA. CT brain perfusion after TPA with improved perfusion, noted hypoplastic L V4. CTH 01/07/23 with evolution of acute R MCACVA with petechial hemorrhage, monitor for mental status changes. LDL 66, A1c 6.6 on 01/06/23. TTE 01/06/23 with normal EF 59%, well-seated AVR, LA dilation. Started ASA and transitioned to eliquis 01/11/23. Neurology, [facility] followed Dysphagia: due to above. [employer] following. Improving on modified diet. HTN: home ACEi, lasix, norvasc. CAD: s/p CABG x3 in 07/[address] Beasley ([facility]). Taken off AC in 04/2022 after discussion with his laboratory secretary Dr. Villalpando, unclear if put on ASA at that time (not on home med list). Home statin ordered. Thrombocytopenia: baseline plts low-normal ~150, have dropped during prior CABG 2021 with neg PF4 then. Plts 91 on 01/07/23. Monitor. AFIB: s/p cardioversions 02/2022 & 08/2021. Followed with EP RACIEL Umm. Admit EKG NSR with 1st degree AVB, PVCs, PACs, QTc 481. S/p MAZE/LA clipping 07/23/21. Continued home Tikosyn. Eliquis as above. AJAY on CKD: unclear stage, 1.4 on admission and trended to 0.9. Renal US 01/06/23 neg. Cr up to 1.6103/16/22. Gentle hydration and trend. Chronic HFpEF: TTE noted. Lasix continued. IDDM2: held home oral. A1c 6.6 on admit. Would not continued lantus at discharge. SSI DVT Prophylaxis: eliquis Current living situation: home Expected disposition: IPR Estimated discharge date: pending precert Subjective: No acute events overnight. Patient feels well. No complaints. Cr up to 1.6 today. Lasix reduced andgiven gentle hydration. Discussed with pharmacist- if Cr does not improve, will need to adjust eliquis. Physical Exam: BP 132/76 (BP Location: Left arm, Patient Position: Lying) Pulse 60 Temp 97.5 F (36.4 C) (Oral) Resp (!) 20 Ht 6' 1 Wt 107.8 kg (237 lb 10.5 oz) SpO2 96% BMI 31.35 kg/m General: NAD Eyes: EOMI ENT: neck supple Cardiovascular: Regular rate. Respiratory: Clear to auscultation Gastrointestinal: Soft, non tender, BS+ Musculoskeletal: No edema. Skin: warm, dry Neuro: Alert, L facial droop, oriented x3, LS 4/5, RS 5/5 Psych: Mood appropriate. Current Medications: amLODIPine 10 mg Oral Daily apixaban 5 mg Oral BID atorvastatin 40 mg Oral Nightly cyanocobalamin 1,000 mcg Oral Daily dofetilide 250 mcg Oral Q12H GENIE furosemide 40 mg Oral Daily lispro insulin 0-15 Units Subcutaneous at bedtime insulin lispro 0-30 Units Subcutaneous TID AC levothyroxine 175 mcg Oral Daily lisinopriL 10 mg Oral Daily with lunch magnesium oxide 400 mg Oral Daily multivitamin 1 tablet Oral Daily pantoprazole 40 mg Oral Daily polyethylene glycol 17 g Oral Daily senna-docusate 1 tablet Oral BID sodium chloride (PF) 5 mL Intravenous Q8H GENIE tamsulosin 0.4 mg Oral After evening meal Labs, Imaging and Studies reviewed: Results from last 7 days Lab Units 01/09/23 0427 01/08/23 0751 WBC K/mcL 7.49 6.38 HGB g/dL 12.2* 11.7* HCT % 36.2* 35.7* PLT K/mcL 134* 104* Results from last 7 days Lab Units 01/13/23 0833 01/11/23 0836 01/09/23 0427 01/08/23 0751 SODIUM mmol/L 135 136 139 138 POTASSIUM mmol/L 5.0 5.0 4.4 4.2 CHLORIDE mmol/L 98 99 104 105 BICARB mmol/L 26 26 28 28 BUN mg/dL 25 19 20 17 CREATININE mg/dL 1.39* 1.06 1.02 0.99 EGFR mL/min/1.73 m2 51* 71 74 77 GLUCOSE mg/dL 179* 163* 129* 121* CALCIUM mg/dL -- -- 9.0 8.5 * Zaida Musa RN - 01/13/2023 11:04 PM EST Deterioration Index score is 30 * Giovanna Lott LISW - 01/13/2023 10:58 AM EST Care Management Progress Note Date: 01/13/2023 Time: 10:58 AM Patient Name: Kevin White Date of : 1940 Discharge Plan: D/C Disposition: Rehab Facility Agency/Destination: [facility] Post-Acute Patient Choice 1: [facility] Discharging Transportation Plan: Transportation Type: Auto Discharge Plan Status: DEVELOPMENT AND HOUSING DIRECTOR received phone call from pt's requesting updates. DEVELOPMENT AND HOUSING DIRECTOR informed wifethat precert is still pending. DEVELOPMENT AND HOUSING DIRECTOR called gabbie [facility] - precert still pending. * Sri Galindo PT - 01/13/2023 8:32 AM EST Physical Therapy PHYSICAL THERAPY TREATMENT NOTE Skilled Therapy Needs After Discharge Anticipate Resolution of Current Assessment Limitations Including: Mechanical Barriers Are Skilled Therapy Services Needed After Discharge: Yes Intensity of Skilled Therapy: 5 to 7 days per week Anticipated Duration of Skilled Therapy: Duration 7 - 10 days DME Recommendation: To be determined at next level of care Rehab Potential: Good, For goals Outcomes Measures Prior Function - Basic Mobility Raw Score: 24 Points Prior Function - Basic Mobility % Impaired: 0% AM-PAC Basic Mobility Raw Score: 17 Points AM-PAC Basic Mobility % Impaired: 43.83% Activity Tolerance Activity Tolerance: Tolerates 30 min acitivty with multiple rests Therapy Precautions Orthotic Devices: No Weight Bearing Status: WFL General Rehab Precautions: Fall risk Balance Sitting Balance - Static: Supervision Sitting Balance - Dynamic: Supervision Standing Balance - Static: Stand by assist Standing Balance - Dynamic: Contact guard assist, Minimal assist Standing Balance Treatment: tandem stance, narrow base of support, decreased UE support Skilled Intervention Provided: verbal cues, tactile cues, patient education, neuromuscular re-education For: LE positioning, UE positioning, fall prevention Resulting in: improved activity tolerance, improved safety Bed Mobility Supine to Sit: (Seated in chair at start and end of session) Transfers Sit to Stand: Stand by assist (x 3 non consecutive trials) Skilled Intervention Provided: verbal cues, provided step by step instructions, patient education For: controlled descent, efficient movement, fall prevention, self-monitoring during activity Resulting in: improved activity tolerance, improved performance, improved safety Gait/Locomotion Gait Assistance: Contact guard assist Distance: 100 Feet Rest Breaks: Yes Rest Break Position: seated Rest Break Duration: ~2 minutes Additional Gait Trial 2: Yes Gait Assistance Trial 2: Contact guard assist Distance Trial 2: 100 Pattern: step through, R impaired heel strike, L impaired heel strike, R decreased step length, L decreased step length, decreased moses (steps per minute), shuffle, decreased arm swing Environment/Terrain: open/community environment, multiple distractions Skilled Intervention Provided: verbal cues, demonstration, patient education For: fall prevention, gait sequence, gait technique, self-monitoring during activity Resulting in: improved activity tolerance, improved awareness of gait impairments, increased insight into deficits, improved safety Exercise Standing Exercises: Dynamic standing exercise performed with use of puzzles on tray table - patientstands with normal REGAN, narrow REGAN, and tandem stance changing positions as instructed over a 10 minute activity while performing cognitive task. One bout of LOB with transition from narrow REGAN to tandem stance with min assist to prevent LOB Skilled Intervention Provided: verbal cues, patient education, neuromuscular intervention For: fall prevention, hold duration, self-monitoring during activity Resulting in: efficient movement, improved activity tolerance, improved safety, improved performance Home Living Obtained Home Living and PLOF info from: Patient Lives With: Spouse Type of Home: House Home Layout: Two level, Bed and full bath upstairs, 1/2 bath on main level Steps to enter home: Yes Rails to enter home: 2 rails Number of stairs to enter home: 5 Bathroom Shower/Tub: Walk-in shower Bathroom Toilet: Standard Bathroom Equipment: Shower chair, Grab bars in shower Mobility Equipment: Wheeled walker, Cane Additional Objective Details - Home Livin) AD used at baseline Prior Level of Function Level of Bishop - Transfers/Ambulation/Mobility: Independent with functional transfers, Independent with household ambulation, Independent with community ambulation Level of Bishop - ADLs: Independent Level of Bishop - Homemaking: Independent Driving: Patient drives For complete objective data, detailed plan of care and patient education refer to: PT Evaluation flowsheet, PT Evaluation and Treatment flowsheet, PT Treatment flowsheet, patient Plan of Care, Plan of Care progress note, and Patient Education. This note stands as the current Discharge Summary upon patient discharge from the hospital or completion of Physical Therapy Plan of Care. * Sarah Mabry DO - 01/13/2023 7:17 AM EST [facility] Inpatient Progress Note 01/13/2023 Kevin White 1940 [id number] Assessment/Plan: Kevin White is a 82 y.o. male with a history of CAD, AFIB s/p cardioversion/MAZE/LA clipping, CHF, IDDM type 2, who presented to [facility] 01/06/2023 from [facility] with left sided weakness and garbled speech, s/p OL tPA. Admitted to [facility] & found to have acute R MCA CVA. [facility] consulted for eventual transfer of care. Acute R MCA CVA s/p TPA: CTA H/N 01/06/23 with distal R MCA occlusion s/p TPA. CT brain perfusion after TPA with improved perfusion, noted hypoplastic L V4. CTH 01/07/23 with evolution of acute R MCACVA with petechial hemorrhage, monitor for mental status changes. LDL 66, A1c 6.6 on 01/06/23. TTE 01/06/23 with normal EF 59%, well-seated AVR, LA dilation. Started ASA until 01/11/23 and transitioned to eliquis. Neurology, NCC followed Dysphagia: due to above. [employer]ESSION[employer] following. Improving on modified diet. HTN: home ACEi, lasix, norvasc. CAD: s/p CABG x3 in 07/[address] Beasley ([facility]). Taken off AC in 04/2022 after discussion with his laboratory secretary Dr. Villalpando, unclear if put on ASA at that time (not on home med list). Home statin ordered. Thrombocytopenia: baseline plts low-normal ~150, have dropped during prior CABG 2021 with neg PF4 then. Plts 91 on 01/07/23. Monitor. AFIB: s/p cardioversions 02/2022 & 08/2021. Followed with EP RACI[facility] Umm. Admit EKG NSR with 1st degree AVB, PVCs, PACs, QTc 481. S/p MAZE/LA clipping 07/23/21. Continued home Tikosyn. Eliquis as above. AAJY on CKD: unclear stage, 1.4 on admission and trended to 0.9. Renal US 01/06/23 neg. Chronic HFpEF: TTE noted. Lasix continued. IDDM2: held home oral. A1c 6.6 on admit. Would not continued lantus at discharge. SSI DVT Prophylaxis: eliquis Current living situation: home Expected disposition: IPR Estimated discharge date: pending precert Subjective: No acute events overnight. Patient feels well. Eager for discharge. Discussed with SW- precert still pending. Physical Exam: BP 108/69 (BP Location: Right arm, Patient Position: Lying) Pulse 63 Temp 97.7 F (36.5 C) (Oral) Resp 16 Ht 6' 1 Wt 107.8 kg (237 lb 10.5 oz) SpO2 95% BMI 31.35 kg/m General: NAD Eyes: EOMI ENT: neck supple Cardiovascular: Regular rate. Respiratory: Clear to auscultation Gastrointestinal: Soft, non tender, BS+ Musculoskeletal: No edema. Skin: warm, dry Neuro: Alert, L facial droop, oriented x3, LS 4/5, RS 5/5 Psych: Mood appropriate. Current Medications: amLODIPine 10 mg Oral Daily apixaban 5 mg Oral BID atorvastatin 40 mg Oral Nightly cyanocobalamin 1,000 mcg Oral Daily dofetilide 250 mcg Oral Q12H GENIE furosemide 40 mg Oral Daily lispro insulin 0-15 Units Subcutaneous at bedtime insulin lispro 0-30 Units Subcutaneous TID AC levothyroxine 175 mcg Oral Daily lisinopriL 10 mg Oral Daily with lunch magnesium oxide 400 mg Oral Daily multivitamin 1 tablet Oral Daily pantoprazole 40 mg Oral Daily polyethylene glycol 17 g Oral Daily senna-docusate 1 tablet Oral BID sodium chloride (PF) 5 mL Intravenous Q8H GENIE tamsulosin 0.4 mg Oral After evening meal Labs, Imaging and Studies reviewed: Results from last 7 days Lab Units 01/09/23 0427 01/08/23 0751 01/07/23 0309 WBC K/mcL 7.49 6.38 6.62 HGB g/dL 12.2* 11.7* 12.1* HCT % 36.2* 35.7* 35.3* PLT K/mcL 134* 104* 91* Results from last 7 days Lab Units 01/11/23 0836 01/09/23 0427 01/08/23 0751 01/07/23 0309 SODIUM mmol/L 136 139 138 142 POTASSIUM mmol/L 5.0 4.4 4.2 4.7 CHLORIDE mmol/L 99 104 105 110* BICARB mmol/L 26 28 28 26 BUN mg/dL 19 20 17 17 CREATININE mg/dL 1.06 1.02 0.99 1.08 EGFR mL/min/1.73 m2 71 74 77 69 GLUCOSE mg/dL 163* 129* 121* 118* CALCIUM mg/dL -- 9.0 8.5 8.6 PHOSPHORUS mg/dL -- -- -- 3.5 * Cora Ram, SUSY - 01/12/2023 4:42 PM EST Speech Pathology Daily Note Dysphagia and Communication/Cognition Treatment Recommendations: NDD diet recommendation: Chopped/ NDD3, chopped meats, Thin liquids Compensatory Strategies: Eat/feed slowly, Alternate solids and liquids, Lingual sweep, Check for pocketing of food on the left Postures: Sit as upright as possible for all oral intake Food Presentation: Small bites Liquid Presentation: Average sips Medication Presentation: Whole with thins, Whole in puree Amount of Supervision: Nursing staff supervision, Intermittent Treatment Techniques: Train swallowing strategies, Therapeutic trial feedings with ACADEMIC SERVICES PROFESSIONAL only Further Recommendations: Assess for diet tolerance, Oral care TID Skilled therapy needs: Skilled Therapy Needs: Are Skilled Therapy Services Needed After Discharge: Yes Functional Limitations: dysphagia, decreased problem solving Intensity of Skilled Therapy: Up to 5 days per week Anticipated Duration of Skilled Therapy: Duration 10 - 30 days Speech Plan: Further acute Speech Therapy services indicated: Yes Patient Goal for Treatment: To go home, Advance to oral diet Rehab Potential: Good, for established goals Factors for returning to Prior Level of Function: Factors for Returning to Prior Level of Function Body Structure and Function: Neurologic impairment Explain Impairments: R MCA CVA Activities and Participation: Swallowing limitation, Communication limitation Explain Limitations: Aphasia, moderate oral and mild-moderate pharyngeal dysphagia Environmental Factors: Home situation Explain Environmental Factors: from home with Personal Factors: Awareness of own capacity and performance Explain Personal Factors: decreased [employer] SERVICES PROFESSIONAL Caregiver Readiness: AC[employer]IC SERVICES PROFESSIONAL Caregiver Readiness [employer]ESSION[employer] Caregiver Training: Caregiver not available [employer]IC SERVICES PROFESSIONAL Assessments [employer]IC SERVICES PROFESSIONAL Assessments Subjective Impression: Alert, Cooperative Respiratory Status: Room air Dentition: Some missing teeth Self-Feeding Barriers: Functional for self-feeding Patient Positioning: Upright in chair Volitional Cough: Strong Baseline Cough: Dry Secretion Management: Adequate Oral Care: Patient performed Volitional Swallow: Present Dysphagia Treatment Skilled Interventions and Response to Interventions: Swallowing Strategies Swallowing Strategies: Patient education/training Swallowing Strategies - Patient Education / Training: verbalized comprehension of presented information, improved ability to understand / adhere to precautions, return demonstration independently BSE/MBS/FEES BSE/MBS/FEES: Patient education/training BSE/MBS/FEES - Patient education/training: verbalized comprehension of presented information, improved ability to understand / adhere to precautions, return demonstration independently Therapeutic Trials Therapeutic Trials: Regular solids/NDD4, Thin liquids Therapeutic Trials - Regular solids/NDD4: increased bolus manipulation, prolonged mastication, no overt s/sx penetration/aspiration Therapeutic Trials - Thin Liquids: adequate oral clearing, no overt s/sx penetration/aspiration Communication/Cognitive Treatment Cognitive-Communication Status: Cognitive-Communication Status Cognitive Status: Exception Cognitive-Communication: Cognitive-Communication Speech Cognition Impression-Severity: 75-90% (Mild), 50-75% (Moderate) Orientation Level: Oriented x4, With choices, With cues Attention: Exceptions to WFL Sustained Attention: 75-90% (Mild) Memory: Exceptions to WFL Immediate recall: 75-90% (Mild) Verbal Problem Solving: Exceptions to WFL Simple Functional Tasks: 75-90% (Mild) Verbal Reasoning Skills: 75-90% (Mild) Safety/Judgement: Exceptions to WFL Behavioral Observations: fall risk Insight: Good awareness of impairment, Decreased insight into impact of injury/deficits Flexibility of Thought: Reduced flexibility Patient O-Log (Orientation Log) Score - Cut off score 25 or better on two separate administrations: Orientation-Log Orientation-log: Yes City: [address]: 1 Name of Hospital: 1 Month: 3 Date: 2 Year: 2 Day of Week: 2 Clock Time: 2 Etiology / Event: 1 Pathology Deficits: 1 Orientation Log Total Score (out of 30): 17 Past Medical History: Diagnosis Date Arthritis Back pain CHF (congestive heart failure) (HCC) COPD (chronic obstructive pulmonary disease) (HCC) Coronary artery disease Diabetes mellitus (HCC) Diabetes mellitus, type 2 (HCC) Disease of thyroid gland GERD (gastroesophageal reflux disease) Hernia of abdominal wall Hyperlipidemia Hypertension Myocardial infarction (HCC) Sleep apnea, obstructive refuses to use c-pap Stroke (HCC) Past Surgical History: Procedure Laterality Date CABG AVR W/ MAZE Bilateral 08/12/2021 Procedure: CORONARY ARTERY BYPASS GRAFT TIMES THREE (krueger-lad, svg-d1, svg- drca)WITH ENDOVEIN HARVEST, Aortic valve replacement (27mm Paul Inspiris), full LA MAZE (Encompass RFA box, RFA HEATHER, cryoRA caval and RAA line), LEFT ATRIAL APPENDAGE LIGATION (40mm AtriCLIP), TRANSESOPHAGEAL ECHOCARDIOGRAM; Surgeon: Luis Beasley MD; Location: [facility] NEURO OR; Service: Cardiothoracic CARDIAC CATHETERIZATION CARDIAC CATHETERIZATION Bilateral 07/01/2021 No intervention, right radial CARDIAC CATHETERIZATION N/A 07/01/2021 Procedure: Coronary Angiogram; Surgeon: Shmuel Villalpando MD; Location: [facility]; Service: Cardiovascular CARDIAC CATHETERIZATION N/A 07/01/2021 Procedure: Right Heart Cath; Surgeon: Shmuel Villalpando MD; Location: [facility]; Service: Cardiovascular CARDIAC CATHETERIZATION N/A 07/01/2021 Procedure: Left Ventriculogram; Surgeon: Shmuel Villalpando MD; Location: [facility]; Service: Cardiovascular CARDIAC CATHETERIZATION N/A 07/01/2021 Procedure: Left Heart Cath; Surgeon: Shmuel Villalpando MD; Location: [facility]; Service: Cardiovascular cataracts removed Bilateral CORONARY STENT PLACEMENT EP - INTERVENTION N/A 08/24/2021 Procedure: Cardioversion/CTA; Surgeon: Abhishek Lauren MD; Location: [facility] EP LAB; Service: Cardiovascular HERNIA REPAIR W/HYDROCELE Right For complete objective data, detailed plan of care, and education refer to: Speech Comm/Cog Eval, Speech Bedside Swallow Evaluation, and [employer] SERVICES PROFESSIONAL Daily flowsheet, as well as patient Plan of Care and Education documentation. This note stands as the current Discharge Summary upon patient discharge from the hospital or completion of Speech Pathology Plan of Care * Nathalia Lanza LISW - 01/12/2023 1:33 PM EST Care Management Progress Note Date: 01/12/2023 Time: 1:33 PM Patient Name: Kevin White Date of : 1940 Discharge Plan: D/C Disposition: Rehab Facility Agency/Destination: [facility] Re[facility] Unit Post-Acute Patient Choice 1: [facility] Discharging Transportation Plan: Transportation Type: Auto Discharge Plan Status: DEVELOPMENT AND HOUSING DIRECTOR notified by RN this morning that pt's called as she had received a call from insurance provider advising that pt's precert was approved. DEVELOPMENT AND HOUSING DIRECTOR contacted Jackie at [facility], they have not received any notifications from insurance. Jackie called and confirmedwith insurance that precert remains pending. DEVELOPMENT AND HOUSING DIRECTOR updated pt's via phone. Will continue to jony tay * Mirtha Palacio, PT - 01/12/2023 12:44 PM EST Physical Therapy PHYSICAL THERAPY TREATMENT NOTE Skilled Therapy Needs After Discharge Anticipate Resolution of Current Assessment Limitations Including: Mechanical Barriers Are Skilled Therapy Services Needed After Discharge: Yes Intensity of Skilled Therapy: 5 to 7 days per week Anticipated Duration of Skilled Therapy: Duration 10 - 30 days DME Recommendation: To be determined at next level of care Rehab Potential: Good, For goals Outcomes Measures Prior Function - Basic Mobility Raw Score: 24 Points Prior Function - Basic Mobility % Impaired: 0% AM-PAC Basic Mobility Raw Score: 17 Points AM-PAC Basic Mobility % Impaired: 43.83% Activity Tolerance Activity Tolerance: Tolerates 30 min acitivty with multiple rests Therapy Precautions Orthotic Devices: No Weight Bearing Status: WFL General Rehab Precautions: Fall risk Balance Sitting Balance - Static: Supervision Sitting Balance - Dynamic: Supervision Standing Balance - Static: Stand by assist (no device) Standing Balance - Dynamic: Contact guard assist Documentation Nurse - Standing Dynamic: (no device) Standing Balance Treatment: weight shifting left, weight shifting right, reaching within base of support, reaching across midline Skilled Intervention Provided: verbal cues, tactile cues, visual cues, patient education For: attention to affected UE/LE, fall prevention Resulting in: improved activity tolerance, improved performance, improved safety Bed Mobility Rolling: (not observed. up in chair before and after session) Transfers Sit to Stand: Contact guard assist Stand Pivot Transfers: Contact guard assist Documentation Nurse: (no device) Skilled Intervention Provided: verbal cues, tactile cues, patient education For: safety during functional tasks Resulting in: improved activity tolerance, improved performance, improved safety Gait/Locomotion Gait Assistance: Contact guard assist Assistive Device: (no device) Distance: 75 Feet (x2) Rest Break Position: seated Rest Break Duration: ~1 min Pattern: L impaired heel strike, shuffle, decreased moses (steps per minute) (decreased L push off, decreased endurance) Skilled Intervention Provided: verbal cues, tactile cues, visual cues, patient education For: gait technique Resulting in: improved activity tolerance, improved performance, improved safety Exercise Seated Exercises: L ankle pumps and circles Skilled Intervention Provided: verbal cues, tactile cues, visual cues, neuromuscular intervention, patient education For: achieving full ROM as tolerated Resulting in: improved functional strength/ROM, improved awareness Home Living Obtained Home Living and PLOF info from: Patient Lives With: Spouse Type of Home: House Home Layout: Two level, Bed and full bath upstairs, 1/2 bath on main level Steps to enter home: Yes Rails to enter home: 2 rails Number of stairs to enter home: 5 Bathroom Shower/Tub: Walk-in shower Bathroom Toilet: Standard Bathroom Equipment: Shower chair, Grab bars in shower Mobility Equipment: Wheeled walker, Cane Additional Objective Details - Home Livin) AD used at baseline Prior Level of Function Level of Bishop - Transfers/Ambulation/Mobility: Independent with functional transfers, Independent with household ambulation, Independent with community ambulation Level of Bishop - ADLs: Independent Level of Bishop - Homemaking: Independent Driving: Patient drives For complete objective data, detailed plan of care and patient education refer to: PT Evaluation flowsheet, PT Evaluation and Treatment flowsheet, PT Treatment flowsheet, patient Plan of Care, Plan of Care progress note, and Patient Education. This note stands as the current Discharge Summary upon patient discharge from the hospital or completion of Physical Therapy Plan of Care. * Sarah Mabry, DO - 01/12/2023 7:16 AM EST [facility] In[facility] Progress Note 01/12/2023 Kevin White 1940 [id number] Assessment/Plan: Kevin White is a 82 y.o. male with a history of CAD, AFIB s/p cardioversion/MAZE/LA clipping, CHF, IDDM type 2, who presented to [facility] 01/06/2023 from [facility] with left sided weakness and garbled speech, s/p [facility] tPA. Admitted to [facility] & found to have acute R MCA CVA. [facility] consulted for eventual transfer of care. Acute R MCA CVA s/p TPA: CTA H/N 01/06/23 with distal R MCA occlusion s/p TPA. CT brain perfusion after TPA with improved perfusion, noted hypoplastic L V4. CTH 01/07/23 with evolution of acute R MCACVA with petechial hemorrhage, monitor for mental status changes. LDL 66, A1c 6.6 on 01/06/23. TTE 01/06/23 with normal EF 59%, well-seated AVR, LA dilation. Started ASA until 01/11/23 and transitioned to eliquis. Neurology, NCC followed Dysphagia: pureed foods, thin liquid per ST, following. HTN: home ACEi, lasix, norvasc. CAD: s/p CABG x3 in 07/[address] Beasley ([facility]). Taken off AC in 04/2022 after discussion with his laboratory secretary Dr. Villalpando, unclear if put on ASA at that time (not on home med list). Home statin ordered. Thrombocytopenia: baseline plts low-normal ~150, have dropped during prior CABG 2021 with neg PF4 then. Plts 91 on 01/07/23. Monitor. AFIB: s/p cardioversions 02/2022 & 08/2021. Followed with EP R[facility] Umm. Admit EKG NSR with 1st degree AVB, PVCs, PACs, QTc 481. S/p MAZE/LA clipping 07/23/21. Continued home Tikosyn. Eliquis as above. AJAY on CKD: unclear stage, 1.4 on admission and trended to 0.9. Renal US 01/06/23 neg. Chronic HFpEF: TTE noted. Lasix continued. COPD: No admit AE. IDDM2: held home oral. SSI DVT Prophylaxis: eliquis to begin 01/11/23 Current living situation: home Expected disposition: IPR Estimated discharge date: pending precert Subjective: Patient new to me today. Feels well. Slept ok. Eating and having BM. Feels like he is improving. Agreeable to IPR. Discussed with SW- precert still pending. Physical Exam: BP (!) 158/75 (Patient Position: Lying) Pulse 66 Temp 97.8 F (36.6 C) (Oral) Resp 16 Ht 6' 1 Wt 107.8 kg (237 lb 10.5 oz) SpO2 96% BMI 31.35 kg/m General: NAD Eyes: EOMI ENT: neck supple Cardiovascular: Regular rate. Respiratory: Clear to auscultation Gastrointestinal: Soft, non tender, BS+ Musculoskeletal: No edema. Skin: warm, dry Neuro: Alert, L facial droop, oriented x3, LS 4/5, RS 5/5 Psych: Mood appropriate. Current Medications: amLODIPine 10 mg Oral Daily apixaban 5 mg Oral BID atorvastatin 40 mg Oral Nightly cyanocobalamin 1,000 mcg Oral Daily dofetilide 250 mcg Oral Q12H GENIE furosemide 40 mg Oral Daily lispro insulin 0-15 Units Subcutaneous at bedtime insulin lispro 0-30 Units Subcutaneous TID AC levothyroxine 175 mcg Oral Daily lisinopriL 10 mg Oral Daily with lunch magnesium oxide 400 mg Oral Daily multivitamin 1 tablet Oral Daily pantoprazole 40 mg Oral Daily polyethylene glycol 17 g Oral Daily senna-docusate 1 tablet Oral BID sodium chloride (PF) 5 mL Intravenous Q8H GENIE tamsulosin 0.4 mg Oral After evening meal Labs, Imaging and Studies reviewed: Results from last 7 days Lab Units 01/09/2342601/08/2375001/07/23 030 WBC K/mcL 7.49 6.38 6.62 HGB g/dL 12.2* 11.7* 12.1* HCT % 36.2* 35.7* 35.3* PLT K/mcL 134* 104* 91* Results from last 7 days Lab Units 01/11/23 0836 01/09/23 0427 01/08/23 0751 01/07/23 0309 01/06/23 0547 SODIUM mmol/L 136 139 138 142 -- POTASSIUM mmol/L 5.0 4.4 4.2 4.7 -- CHLORIDE mmol/L 99 104 105 110* -- BICARB mmol/L 26 28 28 26 -- BUN mg/dL 19 20 17 17 -- CREATININE mg/dL 1.06 1.02 0.99 1.08 -- EGFR mL/min/1.73 m2 71 74 77 69 -- GLUCOSE mg/dL 163* 129* 121* 118* -- CALCIUM mg/dL -- 9.0 8.5 8.6 -- PHOSPHORUS mg/dL -- -- -- 3.5 3.7 Results from last 7 days Lab Units 01/06/23 013 ALTR U/L 21 AST U/L 20 ALK PHOS U/L 79 BILIRUBIN TOTAL mg/dL 0.4 Results from last 7 days Lab Units 01/06/23 013 INR 1.1 * Jackie Patterson RN - 01/11/2023 1:[address] Carlos has reviewed the chart the patient may admit to [facility] when medially ready pending insurance approval, * Sri Galindo, PT - 01/11/2023 11:51 AM EST Physical Therapy PHYSICAL THERAPY TREATMENT NOTE Skilled Therapy Needs After Discharge Anticipate Resolution of Current Assessment Limitations Including: Mechanical Barriers Are Skilled Therapy Services Needed After Discharge: Yes Intensity of Skilled Therapy: 5 to 7 days per week Anticipated Duration of Skilled Therapy: Duration 10 - 30 days DME Recommendation: To be determined at next level of care Rehab Potential: Good, For goals Outcomes Measures Prior Function - Basic Mobility Raw Score: 24 Points Prior Function - Basic Mobility % Impaired: 0% AM-PAC Basic Mobility Raw Score: 16 Points AM-PAC Basic Mobility % Impaired: 47.12% Activity Tolerance Activity Tolerance: Tolerates 30 min acitivty with multiple rests Therapy Precautions Orthotic Devices: No Weight Bearing Status: WFL General Rehab Precautions: Fall risk Balance Sitting Balance - Static: Supervision Sitting Balance - Dynamic: Supervision Standing Balance - Static: Stand by assist Standing Balance - Dynamic: Stand by assist, Contact guard assist Standing Balance Treatment: weight shifting anterior, weight shifting posterior, weight shifting left, weight shifting right, decreased UE support, reaching outside base of support, reaching within base of support, postural re-education, tandem stance, tap ups on cone(s), single leg stance, eyes closed Skilled Intervention Provided: verbal cues, tactile cues, patient education, neuromuscular re-education For: fall prevention, self-monitoring during activity, sequencing of movement Resulting in: improved activity tolerance, improved safety, improved performance Bed Mobility Supine to Sit: Supervision Sit to Supine: Supervision Additional Bed Mobility Trial 2: Yes Rolling Trial 2: Supervision Skilled Intervention Provided: verbal cues, patient education For: fall prevention Resulting in: improved performance, improved safety Transfers Sit to Stand: Contact guard assist Additional Transfer Trial 2: Yes Sit to Stand Trial 2: Contact guard assist Additional Transfer Trial 3: Yes Sit to Stand Trial 3: Stand by assist Skilled Intervention Provided: verbal cues, patient education, provided step by step instructions For: controlled descent, fall prevention Resulting in: improved performance, improved safety, improved functional independence Gait/Locomotion Gait Assistance: Minimal assist Distance: 75 Feet Rest Breaks: Yes Rest Break Position: seated Rest Break Duration: ~1 minute Additional Gait Trial 2: Yes Gait Assistance Trial 2: Contact guard assist, Minimal assist Distance Trial 2: 90 Pattern: step through, R impaired heel strike, L impaired heel strike, R decreased step length, L decreased step length, decreased moses (steps per minute), path deviation, decreased arm swing, decreased trunk rotation Gait Loss(es) of Balance: intermittent Environment/Terrain: open/community environment, multiple distractions Skilled Intervention Provided: verbal cues, patient education For: fall prevention, gait sequence, gait technique, self-monitoring during activity, prevention ofneurologic fatigue Resulting in: improved activity tolerance, increased insight into deficits, improved performance, improved safety Exercise Standing Exercises: Performance of dynamic standing tasks including tandem stance 2 x 30 seconds bilaterally, eyes closed with narrow REGAN 3 x 15 seconds, tapping alternating 2 x 10 reps bilaterlly, marching with BUE 3 second holds x 10 reps x 2 sets and mini squats x 10 reps Skilled Intervention Provided: verbal cues, patient education, neuromuscular intervention For: frequency of exercise(s), fall prevention, hold duration, number of repetitions, postural alignment, self-monitoring during activity Resulting in: efficient movement, improved ability to understand / adhere to precautions, improved activity tolerance, improved independence with HEP, improved safety Additional Treatment Details Patient continues to demonstrate weakness of left UE. Patient has impaired balance and generalized LE strength. Session focused on functional mobility, gait training without AD, and balance exercises. CGA,min assist for most functional mobility tasks. Seated with chair alarm donned eating lunch at end of session. Staff aware. Home Living Obtained Home Living and PLOF info from: Patient Lives With: Spouse Type of Home: House Home Layout: Two level, Bed and full bath upstairs, 1/2 bath on main level Steps to enter home: Yes Rails to enter home: 2 rails Number of stairs to enter home: 5 Bathroom Shower/Tub: Walk-in shower Bathroom Toilet: Standard Bathroom Equipment: Shower chair, Grab bars in shower Mobility Equipment: Wheeled walker, Cane Additional Objective Details - Home Livin) AD used at baseline Prior Level of Function Level of Bishop - Transfers/Ambulation/Mobility: Independent with functional transfers, Independent with household ambulation, Independent with community ambulation Level of Bishop - ADLs: Independent Level of Bishop - Homemaking: Independent Driving: Patient drives For complete objective data, detailed plan of care and patient education refer to: PT Evaluation flowsheet, PT Evaluation and Treatment flowsheet, PT Treatment flowsheet, patient Plan of Care, Plan of Care progress note, and Patient Education. This note stands as the current Discharge Summary upon patient discharge from the hospital or completion of Physical Therapy Plan of Care. * Jackie Patterson RN - 01/11/2023 11:27 AM EST Consult received to [facility] , in review thank you for the consult * Nathalia Lanza LISW - 01/11/2023 9:45 AM EST Care Management Progress Note Date: 01/11/2023 Time: 9:45 AM Patient Name: Kevin White Date of : 1940 Discharge Plan: D/C Disposition: Rehab Facility Agency/Destination: Other Post-Acute Patient Choice 1: [facility] Discharging Transportation Plan: Transportation Type: (TBD) Discharge Plan Status: DEVELOPMENT AND HOUSING DIRECTOR called [facility], spoke with Jackie. She plans to review pt's referral today and will update DEVELOPMENT AND HOUSING DIRECTOR when completed regarding acceptance. Pt will need precert for placement. ADDENDUM 12:45- DEVELOPMENT AND HOUSING DIRECTOR called pt's , provided update on status of [facility] placement. ADDENDUM 14:05- DEVELOPMENT AND HOUSING DIRECTOR notified by Jackie at [facility] that pt is clinically accepted and will start precert today. Will continue to follow. ADDENDUM 20:50- DEVELOPMENT AND HOUSING DIRECTOR called pt's this evening to update on status of placement. She confirms that she and her son are able to transport pt to [facility] if this remains appropriate. DEVELOPMENT AND HOUSING DIRECTOR to notify of precert outcome and then coordinate transfer to [facility]. * Elier Mejia MD - 01/11/2023 8:19 AM EST [facility] Inpatient Progress Note 01/11/2023 Kevin White 1940 [id number] Assessment/Plan: Kevin White is a 82 y.o. male with a history of HTN, CAD, AFIB s/p cardioversion/MAZE/LA clipping, CHF, COPD, IDDM type 2, hypothyroidism who presented to [facility] 01/06/2023 from [facility] with left sided weakness and garbled speech, s/p [facility] tPA. Admitted to [facility] & found to have acute R MCA CVA. Imaging at [facility] showed no LVO. [facility] consulted for eventual transfer of care. Acute R MCA CVA s/p TPA: CTA H/N 01/06/23 with distal R MCA occlusion s/p TPA. CT brain perfusion after TPA with improved perfusion, noted hypoplastic L V4. CTH 01/07/23 with evolution of acute R MCACVA with petechial hemorrhage, monitor for mental status changes. LDL 66, A1c 6.6 on 01/06/23. TTE 01/06/23 with normal EF 59%, well-seated AVR, LA dilation. started ASA until 01/11/23 and transitioned to eliquis. Neurology, [facility] followed Dysphagia: pureed foods, thin liquid per ST, following. HTN: home ACEi, lasix, norvasc. CAD: s/p CABG x3 in 07/[address] Beasley ([facility]). Taken off AC in 04/2022 after discussion with his laboratory secretary Dr. Villalpando, unclear if put on ASA at that time (not on home med list). Home statin ordered. Thrombocytopenia: baseline plts low-normal ~150, have dropped during prior CABG 2021 with neg PF4 then. Plts 91 on 01/07/23. Monitor. AFIB: s/p cardioversions 02/2022 & 08/2021. Followed with EP RACIEL Umm. Admit EKG NSR with 1st degree AVB, PVCs, PACs, QTc 481. S/p MAZE/LA clipping 07/23/21. Continued home Tikosyn. AJAY on CKD: unclear stage, 1.4 on admission and trended to 0.9. Renal US 01/06/23 neg. Chronic HFpEF: TTE noted. Lasix continued. COPD: No admit AE. IDDM2: held home oral. SSI DVT Prophylaxis: eliquis to begin 01/11/23 Current living situation: home Expected disposition: IPR Estimated discharge date: pending acceptance/ precert Subjective: Patient seen and examined at bedside. No new conplaints. Stable overall. Discussed with RN and no major events overnight. Discussed with sicial worker - no accepting facility yet and will need placement Physical Exam: BP (!) 150/82 (BP Location: Left arm, Patient Position: Lying) Pulse 62 Temp 97.4 F (36.3 C) (Oral) Resp (!) 21 Ht 6' 1 Wt 109.2 kg (240 lb 11.9 oz) SpO2 97% BMI 31.76 kg/m General: NAD Eyes: EOMI ENT: neck supple Cardiovascular: Regular rate. Respiratory: Clear to auscultation Gastrointestinal: Soft, non tender, BS+ Musculoskeletal: No edema. Skin: warm, dry Neuro: Alert, L facial droop, oriented x3, LS 4/5, RS 5/5 Psych: Mood appropriate. Current Medications: amLODIPine 10 mg Oral Daily apixaban 5 mg Oral BID atorvastatin 40 mg Oral Nightly cyanocobalamin 1,000 mcg Oral Daily dofetilide 250 mcg Oral Q12H GENIE furosemide 40 mg Oral Daily lispro insulin 0-15 Units Subcutaneous at bedtime insulin lispro 0-30 Units Subcutaneous TID AC levothyroxine 175 mcg Oral Daily lisinopriL 10 mg Oral Daily with lunch magnesium oxide 400 mg Oral Daily multivitamin 1 tablet Oral Daily pantoprazole 40 mg Oral Daily polyethylene glycol 17 g Oral Daily senna-docusate 1 tablet Oral BID sodium chloride (PF) 5 mL Intravenous Q8H GENIE tamsulosin 0.4 mg Oral After evening meal Labs, Imaging and Studies reviewed: Results from last 7 days Lab Units 01/09/23 0427 01/08/23 0751 01/07/23 0309 WBC K/mcL 7.49 6.38 6.62 HGB g/dL 12.2* 11.7* 12.1* HCT % 36.2* 35.7* 35.3* PLT K/mcL 134* 104* 91* Results from last 7 days Lab Units 01/09/23 0427 01/08/23 0751 01/07/23 0309 01/06/23 0547 SODIUM mmol/L 139 138 142 -- POTASSIUM mmol/L 4.4 4.2 4.7 -- CHLORIDE mmol/L 104 105 110* -- BICARB mmol/L 28 28 26 -- BUN mg/dL 20 17 17 -- CREATININE mg/dL 1.02 0.99 1.08 -- EGFR mL/min/1.73 m2 74 77 69 -- GLUCOSE mg/dL 129* 121* 118* -- CALCIUM mg/dL 9.0 8.5 8.6 -- PHOSPHORUS mg/dL -- -- 3.5 3.7 Results from last 7 days Lab Units 01/06/23 0139 ALTR U/L 21 AST U/L 20 ALK PHOS U/L 79 BILIRUBIN TOTAL mg/dL 0.4 Results from last 7 days Lab Units 01/06/23 0139 INR 1.1 * Sandi Acuna OT - 01/11/2023 8:07 AM EST Occupational Therapy OCCUPATIONAL THERAPY TREATMENT NOTE Skilled Therapy Needs After Discharge Anticipate Resolution of Current Assessment Limitations Including: Mechanical Barriers Are Skilled Therapy Services Needed After Discharge: Yes Intensity of Skilled Therapy: 5 to 7 days per week Anticipated Duration of Skilled Therapy: Duration 7 - 10 days DME Recommendation: To be determined at next level of care OT Caregiver Readiness Who was trained?: (no caregiver present) Outcomes Measures Prior Function Daily Activity Raw Score: 24 Prior Function Daily Activity % Impaired: 0% AM-PAC Daily Activity Raw Score: 19 AM-PAC Daily Activity % Impaired: 42.80% Mini-Cog Mini-Cog Screen performed: Word Recall: 3 Clock Draw: 1 Mini-Cog Screen total score = 4/5 (A score of < 3 indicates a cognitive impairment and need for further testing) Activity Tolerance Activity Tolerance: Tolerates 30 min acitivty with multiple rests Therapy Precautions Orthotic Devices: No Weight Bearing Status: [facility] General Rehab Precautions: Fall risk Cognition Overall Cognitive Status: Within Functional Limits (grossly) Arousal/Alertness: Appropriate responses to stimuli Orientation Level: Oriented to situation, Oriented to person, Oriented to time, Oriented to place, With cues Executive functioning: Min impairment, Insight, Planning / Organizing, Processing delay Safety Judgment: Decreased awareness of need for assistance, Decreased awareness of need for safety Problem Solving: Assistance required to identify errors made, Assistance required to generate solutions Attention: Attends to quiet environment Hearing Status: [facility] Social Interaction: Cooperative, Appropriate, Expressive deficit Comments: Pt follows one step commands appropriately. Skilled cues for processing functional tasks.Pt required min cues for safe use of WW Skilled Intervention Provided: verbal cues, tactile cues, environmental setup/modification, facilitation, task breakdown/simplification, patient education For: attention regulation, increased awareness of the environment, increased self-awareness, preparing for self-care tasks Resulting In: improved activity tolerance, improved awareness of self/environment, increased insight into deficits, increased safety awareness ADL Feeding: Set-up (eating EOB on arrival) Grooming: Set-up (standing oral care and facial/hand hygiene) Lower Body Dressing: Contact guard assist (donning socks EOB) Toileting: Stand by assist (genie care after use of toilet) Functional Mobility: Stand by assist, Contact guard assist Overall ADL Performance - Skilled Intervention Provided: verbal cues, tactile cues, facilitation, environmental setup/modification, monitoring patient response with activity, patient education Overall ADL Performance - For: compensatory strategies, increased participation in mobility task, safety during functional task(s), task simplification/modification Overall ADL Performance - Resulting In: improved activity tolerance, improved ADL performance, improved participation in ADL task(s), increased insight into deficits Bed Mobility Supine to Sit: (not observed, Pt sitting EOB on arrival and in recliner on exit) Functional Transfers Sit to Stand: Stand by assist Bed to Chair Transfers: Stand by assist Toilet Transfers: Contact guard assist, Minimal assist, to/from toilet (min A for safe descent ontotoilet) Documentation Nurse: wheeled walker Skilled Intervention Provided: verbal cues, environmental setup/modification, facilitation, monitoring patient response with activity For: efficient movement, initiation of task, increased participation in mobility task, safety during functional task(s) Resulting In: improved activity tolerance, improved awareness, increased insight into deficits Balance Treatment Sitting Balance - Static: Independent Sitting Balance - Dynamic: Stand by assist Standing Balance - Static: Stand by assist Documentation Nurse - Standing Static: wheeled walker Standing Balance - Dynamic: Stand by assist, Contact guard assist Documentation Nurse - Standing Dynamic: same school health aide used for static standing tasks Interventions Visual/Perceptual Training: Scanning / Tracking (scanning to find correct letters on the board, no deficits or cues provided for correct identification of letters in all visual juarez.) Skilled Intervention Provided: facilitation, monitoring patient response with activity, patient education For: attention to task, visual awareness, visual scanning Resulting In: improved activity tolerance, improved awareness, improved balance Additional Treatment Details Pt educated on energy conservation techniques and safety techniques throughout session. Pt with good integration of BUE in functional tasks. Mini cog completed this session. Pt up in chair with bed alarm and all needs met at end of session. Home Living Obtained Home Living and PLOF info from: Patient Lives With: Spouse Type of Home: House Home Layout: Two level, Bed and full bath upstairs, 1/2 bath on main level Steps to enter home: Yes Rails to enter home: 2 rails Number of stairs to enter home: 5 Bathroom Shower/Tub: Walk-in shower Bathroom Toilet: Standard Bathroom Equipment: Shower chair, Grab bars in shower Mobility Equipment: Wheeled walker, Cane Additional Objective Details - Home Livin) AD used at baseline Prior Level of Function Level of Bishop - Transfers/Ambulation/Mobility: Independent with functional transfers, Independent with household ambulation, Independent with community ambulation Level of Bishop - ADLs: Independent Level of Bishop - Homemaking: Independent Driving: Patient drives For complete objective data, detailed plan of care and patient education refer to: OT Evaluation flowsheet, OT Evaluation and Treatment flowsheet, OT Treatment flowsheet, patient Plan of Care, Plan of Care progress note, and Patient Education. This note stands as the current Discharge Summary upon patient discharge from the hospital or completion of Occupational Therapy Plan of Care. * Nathalia Lanza LISW - 01/10/2023 6:59 PM EST Care Management Progress Note Date: 01/10/2023 Time: 6:59 PM Patient Name: Kevin White Date of : 1940 Discharge Plan: D/C Disposition: Rehab Facility Agency/Destination: Other Post-Acute Patient Choice 1: [facility] Discharging Transportation Plan: Transportation Type: (TBD) Discharge Plan Status: DEVELOPMENT AND HOUSING DIRECTOR notified that pt is medically stable for transfer to [facility] when arranged. DEVELOPMENT AND HOUSING DIRECTOR sent message to Jackie at [facility] to update and requested that update be provided regarding status of referral. [facility] will follow up tomorrow. * Elier Mejia MD - 01/10/2023 8:50 AM EST [facility] Inpatient Progress Note 01/10/2023 Kevin White 1940 [id number] Assessment/Plan: Kevin White is a 82 y.o. male with a history of HTN, CAD, AFIB s/p cardioversion/MAZE/LA clipping, CHF, COPD, IDDM type 2, hypothyroidism who presented to [facility] 01/06/2023 from [facility] with left sided weakness and garbled speech, s/p [facility] tPA. Admitted to [facility] & found to have acute R MCA CVA. Imaging at [facility] showed no LVO. [facility] consulted for eventual transfer of care. Acute R MCA CVA s/p TPA: CTA H/N 01/06/23 with distal R MCA occlusion s/p TPA. CT brain perfusion after TPA with improved perfusion, noted hypoplastic L V4. CTH 01/07/23 with evolution of acute R MCACVA with petechial hemorrhage, monitor for mental status changes. LDL 66, A1c 6.6 on 01/06/23. TTE 01/06/23 with normal EF 59%, well-seated AVR, LA dilation. Planned ASA until 01/11/23 and transitionto eliquis. Neurology, [facility] followed Dysphagia: pureed foods, thin liquid per ST, following. HTN: home ACEi, lasix, norvasc. CAD: s/p CABG x3 in 07/[address] Beasley ([facility]). Taken off AC in 04/2022 after discussion with his laboratory secretary Dr. Villalpando, unclear if put on ASA at that time (not on home med list). Home statin ordered. Thrombocytopenia: baseline plts low-normal ~150, have dropped during prior CABG 2021 with neg PF4 then. Plts 91 on 01/07/23. Monitor. AFIB: s/p cardioversions 02/2022 & 08/2021. Followed with EP RACIEL Umm. Admit EKG NSR with 1st degree AVB, PVCs, PACs, QTc 481. S/p MAZE/LA clipping 07/23/21. Continued home Tikosyn. AJAY on CKD: unclear stage, 1.4 on admission and trended to 0.9. Renal US 01/06/23 neg. Chronic HFpEF: TTE noted. Lasix continued. COPD: No admit AE. IDDM2: held home oral. SSI DVT Prophylaxis: eliquis to begin 01/11/23 Current living situation: home Expected disposition: IPR Estimated discharge date: pending precert Subjective: Patient seen and examined at bedside. No new complaints. Feels okay. Tolerating diet. disucssed with social welfare research worker - precert pending Physical Exam: BP (!) 153/80 Pulse 62 Temp 97.8 F (36.6 C) (Oral) Resp 18 Ht 6' 1 Wt 110.2 kg (242 lb 15.2 oz) SpO2 93% BMI 32.05 kg/m General: NAD Eyes: EOMI ENT: neck supple Cardiovascular: Regular rate. Respiratory: Clear to auscultation Gastrointestinal: Soft, non tender, BS+ Musculoskeletal: No edema. Skin: warm, dry Neuro: Alert, L facial droop, oriented x3, LS 4/5, RS 5/5 Psych: Mood appropriate. Current Medications: amLODIPine 10 mg Oral Daily [START ON 01/11/2023] apixaban 5 mg Oral BID aspirin 81 mg Oral Daily atorvastatin 40 mg Oral Nightly cyanocobalamin 1,000 mcg Oral Daily dofetilide 250 mcg Oral Q12H GENIE furosemide 40 mg Oral Daily heparin (porcine) 5,000 Units Subcutaneous Q8H GENIE lispro insulin 0-15 Units Subcutaneous at bedtime insulin lispro 0-30 Units Subcutaneous TID AC levothyroxine 175 mcg Oral Daily lisinopriL 10 mg Oral Daily with lunch magnesium oxide 400 mg Oral Daily multivitamin 1 tablet Oral Daily pantoprazole 40 mg Oral Daily polyethylene glycol 17 g Oral Daily senna-docusate 1 tablet Oral BID sodium chloride (PF) 5 mL Intravenous Q8H GENIE tamsulosin 0.4 mg Oral After evening meal Labs, Imaging and Studies reviewed: Results from last 7 days Lab Units 01/09/2342601/08/2375001/07/23308 WBC K/mcL 7.49 6.38 6.62 HGB g/dL 12.2* 11.7* 12.1* HCT % 36.2* 35.7* 35.3* PLT K/mcL 134* 104* 91* Results from last 7 days Lab Units 01/09/2342601/08/2375001/07/2330801/06/23 0547 SODIUM mmol/L 139 138 142 -- POTASSIUM mmol/L 4.4 4.2 4.7 -- CHLORIDE mmol/L 104 105 110* -- BICARB mmol/L 28 28 26 -- BUN mg/dL 20 17 17 -- CREATININE mg/dL 1.02 0.99 1.08 -- EGFR mL/min/1.73 m2 74 77 69 -- GLUCOSE mg/dL 129* 121* 118* -- CALCIUM mg/dL 9.0 8.5 8.6 -- PHOSPHORUS mg/dL -- -- 3.5 3.7 Results from last 7 days Lab Units 01/06/23 0139 ALTR U/L 21 AST U/L 20 ALK PHOS U/L 79 BILIRUBIN TOTAL mg/dL 0.4 Results from last 7 days Lab Units 01/06/23 0139 INR 1.1 * Elier Mejia MD - 01/09/2023 7:49 AM EST [facility] Inpatient Progress Note 01/09/2023 Kevin White 1940 [id number] Assessment/Plan: Kevin White is a 82 y.o. male with a history of HTN, CAD, AFIB s/p cardioversion/MAZE/LA clipping, CHF, COPD, IDDM type 2, hypothyroidism who presented to [facility] 01/06/2023 from [facility] with left sided weakness and garbled speech, s/p [facility] tPA. Admitted to [facility] & found to have acute R MCA CVA. Imaging at [facility] showed no LVO. [facility] consulted for eventual transfer of care. Acute R MCA CVA s/p TPA: CTA H/N 01/06/23 with distal R MCA occlusion s/p TPA. CT brain perfusion after TPA with improved perfusion, noted hypoplastic L V4. CTH 01/07/23 with evolution of acute R MCACVA with petechial hemorrhage, monitor for mental status changes. LDL 66, A1c 6.6 on 01/06/23. TTE 01/06/23 with normal EF 59%, well-seated AVR, LA dilation. Planned ASA until 01/11/23 and transition to eliquis. Neurology, [facility] followed Dysphagia: pureed foods, thin liquid per ST, following. HTN: home ACEi, lasix, norvasc. CAD: s/p CABG x3 in 07/[address] [facility] [facility]). Taken off AC in 04/2022 after discussion with his laboratory secretary Dr. Villalpando, unclear if put on ASA at that time (not on home med list). Home statin ordered. Thrombocytopenia: baseline plts low-normal ~150, have dropped during prior CABG 2021 with neg PF4 then. Plts 91 on 01/07/23. Monitor. AFIB: s/p cardioversions 02/2022 & 08/2021. Followed with EP RACIEL Umm. Admit EKG NSR with 1st degree AVB, PVCs, PACs, QTc 481. S/p MAZE/LA clipping 07/23/21. Continued home Tikosyn. Prolonged QTc: 481 as noted, intermittently prolonged at baseline. Avoid further prolonging meds asable. AJAY on CKD: unclear stage, 1.4 on admission and trended to 0.9. Renal US 01/06/23 neg. Chronic HFpEF: TTE noted. Lasix continued. COPD: No admit AE. IDDM2: held home oral. SSI DVT Prophylaxis: eliquis to begin 01/11/23 Current living situation: home Expected disposition: IPR Estimated discharge date: pending precert Subjective: Patient seen and examined at bedside. No new complaints. Denies any headache, chest pain or other symptoms. Understands awaiting precert. Noted BP slightly above goal, will allow gradual reduction. No changes made today Physical Exam: BP (!) 152/68 Pulse 63 Temp 98 F (36.7 C) (Oral) Resp 17 Ht 6' 1 Wt 86.4 kg (190 lb 7.6 oz) SpO2 93% BMI 25.13 kg/m General: NAD Eyes: EOMI ENT: neck supple Cardiovascular: Regular rate. Respiratory: Clear to auscultation Gastrointestinal: Soft, non tender, BS+ Musculoskeletal: No edema. Skin: warm, dry Neuro: Alert, L facial droop, oriented x3, LS 4/5, RS 5/5 Psych: Mood appropriate. Current Medications: amLODIPine 10 mg Oral Daily [START ON 01/11/2023] apixaban 5 mg Oral BID aspirin 81 mg Oral Daily atorvastatin 40 mg Oral Nightly cyanocobalamin 1,000 mcg Oral Daily dofetilide 250 mcg Oral Q12H GENIE furosemide 40 mg Oral Daily heparin (porcine) 5,000 Units Subcutaneous Q8H GENIE lispro insulin 0-15 Units Subcutaneous at bedtime insulin lispro 0-30 Units Subcutaneous TID AC levothyroxine 175 mcg Oral Daily lisinopriL 10 mg Oral Daily with lunch magnesium oxide 400 mg Oral Daily multivitamin 1 tablet Oral Daily pantoprazole 40 mg Oral Daily senna-docusate 1 tablet Oral BID sodium chloride (PF) 5 mL Intravenous Q8H GENIE tamsulosin 0.4 mg Oral After evening meal Labs, Imaging and Studies reviewed: Results from last 7 days Lab Units 01/09/2342601/08/2375001/07/23 0309 WBC K/mcL 7.49 6.38 6.62 HGB g/dL 12.2* 11.7* 12.1* HCT % 36.2* 35.7* 35.3* PLT K/mcL 134* 104* 91* Results from last 7 days Lab Units 01/09/2342601/08/2375001/07/23 0309 01/06/23 0547 SODIUM mmol/L 139 138 142 -- POTASSIUM mmol/L 4.4 4.2 4.7 -- CHLORIDE mmol/L 104 105 110* -- BICARB mmol/L 28 28 26 -- BUN mg/dL 20 17 17 -- CREATININE mg/dL 1.02 0.99 1.08 -- EGFR mL/min/1.73 m2 74 77 69 -- GLUCOSE mg/dL 129* 121* 118* -- CALCIUM mg/dL 9.0 8.5 8.6 -- PHOSPHORUS mg/dL -- -- 3.5 3.7 Results from last 7 days Lab Units 01/06/23 0139 ALTR U/L 21 AST U/L 20 ALK PHOS U/L 79 BILIRUBIN TOTAL mg/dL 0.4 Results from last 7 days Lab Units 01/06/23 0139 INR 1.1 * Giovanna Lott LISW - 01/08/2023 10:12 AM EST Care Management Progress Note Date: 01/08/2023 Time: 10:12 AM Patient Name: Kevin White Date of : 1940 Discharge Plan: D/C Disposition: (TBD) Discharging Transportation Plan: Transportation Type: (TBD) Discharge Plan Status: OT recs: 5-7; PT recs pending. [facility] Jessy Nieto, to introduce [facility] to pt/family for consideration this afternoon. DEVELOPMENT AND HOUSING DIRECTOR following. ADDENDUM 1346 DEVELOPMENT AND HOUSING DIRECTOR received call from [facility] Jessy Nieto. Jessy stated that she spoke w pt's , who would like referral to [facility] for pt. DEVELOPMENT AND HOUSING DIRECTOR called pt's to confirm plan. DEVELOPMENT AND HOUSING DIRECTOR faxed referral to [facility] and sent secure chat to admissions (Irina). Precert will be necessary prior to admission. * Elier Mejia MD - 01/08/2023 9:43 AM EST [facility]08[facility]23 Kevin White 1940 [id number] Assessment/Plan: Kevin White is a 82 y.o. male with a history of HTN, CAD, AFIB s/p cardioversion/MAZE/LA clipping, CHF, COPD, IDDM type 2, hypothyroidism who presented to [facility] 01/06/2023 from [facility] with left sided weakness and garbled speech, s/p OL tPA. Admitted to [facility] & found to have acute R MCA CVA. Imaging at [facility] showed no LVO. [facility] consulted for eventual transfer of care. Acute R MCA CVA s/p TPA: CTA H/N 01/06/23 with distal R MCA occlusion s/p TPA. CT brain perfusion after TPA with improved perfusion, noted hypoplastic L V4. CTH 01/07/23 with evolution of acute R MCACVA with petechial hemorrhage, monitor for mental status changes. LDL 66, A1c 6.6 on 01/06/23. TTE 01/06/23 with normal EF 59%, well-seated AVR, LA dilation. Planned ASA until 01/11/23 and transition to eliquis. Neurology, [facility] followed Dysphagia: pureed foods, thin liquid per ST, following. HTN: home ACEi, lasix, norvasc. CAD: s/p CABG x3 in 07/[address] Beasley ([facility]). Taken off AC in 04/2022 after discussion with his laboratory secretary Dr. Villalpando, unclear if put on ASA at that time (not on home med list). Home statin ordered. Thrombocytopenia: baseline plts low-normal ~150, have dropped during prior CABG 2021 with neg PF4 then. Plts 91 on 01/07/23. Monitor. AFIB: s/p cardioversions 02/2022 & 08/2021. Followed with EP RACIEL Umm. Admit EKG NSR with 1st degree AVB, PVCs, PACs, QTc 481. S/p MAZE/LA clipping 07/23/21. Continued home Tikosyn. Prolonged QTc: 481 as noted, intermittently prolonged at baseline. Avoid further prolonging meds asable. AJAY on CKD: unclear stage, 1.4 on admission and trended to 0.9. Renal US 01/06/23 neg. Chronic HFpEF: TTE noted. Lasix continued. COPD: No admit AE. IDDM2: held home oral. SSI DVT Prophylaxis: eliquis to begin 01/11/23 Current living situation: home Expected disposition: IPR Estimated discharge date: pending acceptance and precert Subjective: Patient seen and examined at bedside. States he feels okay. No new complaints. Agreeable for IPR. Discussed with social welfare research worker, referral send and acceptance pending. Will need precert Physical Exam: BP (!) 149/65 (BP Location: Right arm, Patient Position: Lying) Pulse (!) 58 Temp 97.8 F (36.6 C) (Oral) Resp (!) 20 Ht 6' 1 Wt 86.4 kg (190 lb 7.6 oz) SpO2 96% BMI 25.13 kg/m General: NAD Eyes: EOMI ENT: neck supple Cardiovascular: Regular rate. Respiratory: Clear to auscultation Gastrointestinal: Soft, non tender, BS+ Musculoskeletal: No edema. Skin: warm, dry Neuro: Alert, L facial droop, oriented x3, LS 4/5, RS 5/5 Psych: Mood appropriate. Current Medications: amLODIPine 10 mg Oral Daily [START ON 01/11/2023] apixaban 5 mg Oral BID aspirin 81 mg Oral Daily atorvastatin 40 mg Oral Nightly cyanocobalamin 1,000 mcg Oral Daily dofetilide 250 mcg Oral Q12H GENIE furosemide 40 mg Oral Daily heparin (porcine) 5,000 Units Subcutaneous Q8H GENIE insulin lispro 0-30 Units Subcutaneous Q4H GENIE levothyroxine 175 mcg Oral Daily lisinopriL 10 mg Oral Daily with lunch magnesium oxide 400 mg Oral Daily multivitamin 1 tablet Oral Daily pantoprazole 40 mg Oral Daily senna-docusate 1 tablet Oral BID sodium chloride (PF) 5 mL Intravenous Q8H GENIE tamsulosin 0.4 mg Oral After evening meal Labs, Imaging and Studies reviewed: Results from last 7 days Lab Units 01/08/23 0751 01/07/23 0309 01/06/23 0155 01/06/23 0139 WBC K/mcL 6.38 6.62 -- 8.58 HGB g/dL 11.7* 12.1* -- 14.0 HEMOGLOBIN BG g/dL -- -- 14.9 -- HEMATOCRIT, CALCULATED % -- -- 45.6 -- HCT % 35.7* 35.3* -- 42.7 PLT K/mcL 104* 91* -- 83* Results from last 7 days Lab Units 01/08/23 0751 01/07/23 0309 01/06/23 0547 01/06/23 0155 01/06/23 0139 SODIUM mmol/L 138 142 -- 143 141 POTASSIUM mmol/L 4.2 4.7 -- 4.0 4.0 CHLORIDE mmol/L 105 110* -- 103 108 BICARB mmol/L 28 26 -- -- 32 BUN mg/dL 17 17 -- -- 24 CREATININE mg/dL 0.99 1.08 -- -- 1.43* EGFR mL/min/1.73 m2 77 69 -- -- 49* GLUCOSE mg/dL 121* 118* -- 125* 138* CALCIUM mg/dL 8.5 8.6 -- -- 9.4 PHOSPHORUS mg/dL -- 3.5 3.7 -- -- Results from last 7 days Lab Units 01/06/23 0139 ALTR U/L 21 AST U/L 20 ALK PHOS U/L 79 BILIRUBIN TOTAL mg/dL 0.4 Results from last 7 days Lab Units 01/06/23 0139 INR 1.1 * Esha Verdin CNP - 01/07/2023 8:53 AM EST Neurocritical Care Progress Note Kevin White is a 82 y.o. male with a PMH of HTN, CAD, AFIB s/p cardioversion/MAZE/LA clipping, CHF, COPD, IDDM type 2, hypothyroidism presented to [place] 01/06/2023 as a transfer from an [facility] after been found down with left sided weakness and garbled speech. He received tPA at [facility] but imaging upon arrival to [facility] showed no LVO. Assessment and Plan TRANSFER SUMMARY Significant Procedures: - 01/06 tPA at 0200 Stop Dates for Current Temporary Therapies: - Stop ASA once AC started on Thursday 01/11 Medication Instructions: - Initiate ASA 01/07 and then stop on 01/11 when AC initiated on transfer Consultative follow-up needed at outpatient: - Stroke clinic NEUROLOGIC Right MCA CVA - Unclear etiology possibly related to Afib, however, in sinus rhythm. Possibly also related to cerebral athero - Family denies history of previous stroke - LKW 01/06 at 0000 - Found by with left sided weakness and garbled speech - Administered tPA at [facility] @ 0203 - CTA H/N at [facility]: Distal right MCA superior division occlusion, multiple areas with plaque including bilateral carotid bifurcations L>R - CT brain with perfusion at [facility]: previous M2 abnormality no longer seen, 0ml of hypoperfusion - Initial NIHSS at [facility]: 17, NIHSS on arrival to [facility] 7 - post tPA CTH noted to have evolving infarct and petechial hemorrhage which has been confirmed as stable - HgbA1c 6.6, LDL 66 - Continue statin and ASA - Plan for full anticoagulation on Thursday 01/11-TBD by neurology - Neurology consulted - Appropriate for transfer from [facility] CARDIOVASCULAR Afib - Known history - Has undergone multiple procedures including cardioversion, a MAZE procedure, and ultimately LA clipping 07/2021 - Continue home Tikosyn - EKG with sinus rhythm CAD - Known history - continue Statin and ASA HFpEF - Known history - TTE 11/13: EF 60% - TTE 01/06/2023: EF 59%, left atrial chamber is mildly enlarged - No evidence of fluid overload - Hold home lasix for now Rhythm and BP stable. PULMONARY COPD without exacerbation - Known history-family reports secondary to previous job not due to smoking - reports increase use of PRN nebulizer secondary to cold - Denies use of O2 at home or scheduled inhalers - PRN albuterol ordered - Oxygenating appropriately on RA - Protecting airway RENAL CKD unclear stage - No reported history - In review of chart, since 02/2022 sCR has ranged 1.3-1.4 previously 0.9-1.2 - On admission sCR 1.43 - 01/07 sCR 1.08 - Strict I/Os - Renal ultrasound: no acute process - Avoid nephrotoxic meds - Trend daily HEMATOLOGIC Hgb 12.1 / HCT 35.3, Plt 91, INR 1.1. ID Afebrile Tm < 99.5, WBC 6.62. ENDOCRINE IDDM type 2 - Known history - HgbA1c 6.6 - Hold home metformin and Lantus at this time - Continue SSI - Goal BGL 80-180 Hypothyroidism - Known history - Continue home synthroid GI / HEPATIC Dysphagia - Secondary to CVA - Speech therapy consulted - MBS completed and modified diet ordered - Bowel regimen PROPHYLAXIS SCDs, Home PPI, and SQH PT/OT: Ok for therapy SW: consulted CELESTE: TBD CODE STATUS / FAMILY - Full Code Plan discussed with [facility] attending Dr. Soto. [facility] to be the accepting service upon transfer from [facility]. Esha Verdin CNP Neurocritical Care Subjective / Events: No acute events reported overnight. Patient evaluated during rounds with Dr. Soto. Patient is sitting up in bed in no distress. He reports feeling tired. Denies chest pain, SOB, N/V Review of Systems: [x] CV, Resp, GI, Neuro, and all other systems reviewed and negative other than listed above. [] Unable to obtain review of systems due to intubation, critically ill condition, and/or neurologic status. Exam Vital Signs: Temp: [97.6 F (36.4 C)-98.3 F (36.8 C)] 97.7 F (36.5 C) Heart Rate: [55-71] 62 Resp: [10-26] 17 BP: (127-169)/(60-86) 156/82 I/O last 3 completed shifts: In: 1708 [P.O.:240; I.V.:1367.9; IV Piggyback:100.1] Out: 1395 [Urine:1395] General: Drowsy wakes readily to voice, no distress Head/Neck: Head - Normocephalic. Eyes - Sclerae anicteric. Ears - External ears normal. Nose: Normal. Mouth - Duarte, moist. Neck - trachea is midline. Cardiovascular: Regular rate and rhythm. No clicks, rubs, murmurs, or gallops noted. Peripheral extremity pulses are palpable. Respiratory: Respiratory effort unlabored without accessory muscle use. Lung sounds clear to ascultation bilaterally without wheezes, rales, or rhonchi. Abdominal: Soft, nondistended, nontender, decreased bowel sounds. Musculoskeletal: No obvious long bone deformity. Extremities: Well perfused. No clubbing, cyanosis, or edema noted. Neurological: Drowsy, wakes readily to voice. oriented to name, place, and time. Gaze conjugate, Left lateral field cut. Left facial droop with dysarthria. Motor strength 5/5 RUE/RLE and LLE. LUE slightly weaker compared to right but no drift noted on any extremity. Skin: Normal turgor, well-hydrated, no diffuse rash appreciated. Clinical Data: [x] Lab, Micro data reviewed. [x] Most recent imaging reviewed. NIH Stroke Scale Time: 12:31 PM Person Administering Scale: Esha Verdin Administer stroke scale items in the order listed. Record performance in each category after each subscale exam. Do not go back and change scores. Follow directions provided for each exam technique. Scores should reflect what the patient does, not what the clinician thinks the patient can do. The clinician should record answers while administering the exam and work quickly. Except where indicated, the patient should not be coached (i.e., repeated requests to patient to make a special effort). 1a Level of consciousness: 0=alert; keenly responsive 1b. LOC questions: 0=Performs both tasks correctly 1c. LOC commands: 0=Performs both tasks correctly 2. Best Gaze: 0=normal 3. Visual: 1=Partial hemianopia 4. Facial Palsy: 2=Partial paralysis (total or near total paralysis of the lower face) 5a. Motor left arm: 0=No drift, limb holds 90 (or 45) degrees for full 10 seconds 5b. Motor right arm: 0=No drift, limb holds 90 (or 45) degrees for full 10 seconds 6a. motor left le=No drift, limb holds 90 (or 45) degrees for full 10 seconds 6b Motor right le=No drift, limb holds 90 (or 45) degrees for full 10 seconds 7. Limb Ataxia: 0=Absent 8. Sensory: 0=Normal; no sensory loss 9. Best Language: 0=No aphasia, normal 10. Dysarthria: 1=Mild to moderate, patient slurs at least some words and at worst, can be understood with some difficulty 11. Extinction and Inattention: 0=No abnormality Total: 4 Recent Labs 01/06/23 0139 01/06/23 0155 01/07/23 0309 WBC 8.58 -- 6.62 HGB 14.0 14.9 12.1* PLT 83* -- 91* Recent Labs 01/05/23 1352 01/06/23 0139 01/06/23 0155 01/06/23 0547 01/07/23 0309 NA 142 141 143 -- 142 K 4.2 4.0 4.0 -- 4.7 CL 108 108 103 -- 110* BICARB 32 32 -- -- 26 BUN 21 24 -- -- 17 CREATININE 1.46* 1.43* -- -- 1.08 GLUCOSE 114* 138* 125* -- 118* PHOS -- -- -- 3.7 3.5 MG 1.6 -- -- -- 2.5* TWYLA -- -- 4.9 4.9 -- CALCIUM 9.3 9.4 -- -- 8.6 BILITOT -- 0.4 -- -- -- ALKPHOS -- 79 -- -- -- ALT -- 21 -- -- -- AST -- 20 -- -- -- PROT -- 7.1 -- -- -- ALBUMIN -- 3.7 -- -- -- Lab Results Component Value Date LACTICACID 1.6 01/06/2023 LACTICACID 1.9 08/13/2021 Recent Labs 01/06/23 0139 INR 1.1 PTT 24 Labs Last Refreshed: CBC - 01/07/2023, BMP - 01/07/2023, CMP - - -, Coag - 01/06/2023 Associated attestation - Ellen Soto MD - 01/07/2023 4:42 PM EST I have independently examined and reviewed this case and discussed the assessment and plan of care with the RACIEL. The RACIEL completed the initial history taking and physical examination. The assessment and plan were coordinated with myself and I independently completed a separate history and physical examination in a face to face encounter. I agree with the assessment and plan as provided in the note with clarifications/exceptions noted below. Patient seen and examined on rounds today. 82M h/o afib on no AC a/w left sided weakness s/p tNK, no thrombectomy. 24H scan with concern for mild petechial hemorrhage vs laminar necrosis. Exam: A/ox4, mild dysarthria no aphasia, PERRL, full EOM, VF intact to FC, left facial droop, midline tongue. 5/5 strength except mild LUE pronator drift with decreased fine motor skills. SILT. A/P RMCA stroke, ?petechial hemorrhage, facial droop, LUE hemiparesis - Etiology likely cardioembolic. Start aspirin 81 mg daily now, transition to AC on Wednesday. Statin for secondary stroke prevention. TTE no thrombus or shunt. EF 59%. Afib - continue home tikosyn. Plan to start AC on Wednesday. CAD - asa/statin HFpEF - resume home lasix 40 mg daily HTN - resume home norvasc 10 mg daily, lisinopril 10 mg daily COPD - PRN nebs, on RA CKD? - Cr improved, avoid nephrotoxic agents. Hypothyroidism - continue home synthroid 175 mcg daily DVT ppx SCDs, SQH until start eliquis on Wednesday GI ppx - home protonix OK for transfer to floor. Ellen Soto MD Neurocritical Care 01/07/23 4:36 PM * Zoraida Barney - 01/07/2023 8:25 AM EST Spiritual Care Progress Note Completed by: Zoraida Barney Person(s) Present During this Visit: Patient Not Available Time Spent in Direct Patient Care: 5 Narrative: Pastoral care visit attempt. Patient not available. Pastoral Care team will remain available to support patient and family PRN. Patients Response to Pastoral Care: Timing of Visit Not Optimal. Visit Rescheduled Planning for Future Visits: PRN 01/07/23 0825 Visit Background Visit With Patient Not Available Visit By Staff Broadcast Maintenance Engineer Visit Progression Attempt Visit Requested By Broadcast Maintenance Engineer Initiated Visit Source Broadcast Maintenance Engineer Initiated Visit Type Rounding Visit Circumstances and Events Emotional/Spiritual Assessment Visit Length (minutes) 5 Patient's Response to Pastoral Care Timing of Visit Not Optimal. Visit Rescheduled Visit Planning PRN Spiritual Assessment Unable to Assess during this visit Zoroastrian Assessment Unable to Assess during this visit Family assessment provided? Unable to asess during this visit Zoraida Barney MA Staff Broadcast Maintenance Engineer, Pastoral Care [facility] [phone] * Antonieta Palacio CNP - 01/07/2023 7:29 AM EST Images from the original note were not included. Neurology Inpatient Follow up [facility] 01/07/2023 Antonieta Palacio CNP [facility] Patient: Kevin White Date of : 1940 (82 y.o. male) Referring Provider: Refer to consult order in electronic medical record PCP: Moi Gibson MD ASSESSMENT: 82 y.o. male with history of 82 y.o. male with history of HTN, HLD, NAJMA, DM, and Afib no longer on AC after cardioversion and LA clipping > 1 year ago. [facility] from [place] [facility] with a right MCA stroke syndrome,. [facility] imaging with distal right MCA occlusion. Patient treated with IV alteplase. CTA/P at [facility] showing recanalization ofright M2 occlusion. Despite the fact that this patient has had left atrial appendage occlusion, recurrent cardioembolic event is suggestive of need for ongoing anticoagulation. PLAN: ADDENDUM: Case discussed with Dr. Ruffin. OK to begin ASA 81 mg daily today. OK to start Eliquis 5 mg BID on 01/11/23, then discontinue ASA once AC is started - orders placed. No further neurologic recommendations at this time. Please call with questions. Antonieta Palacio CNP 01/07/2023 10:51 AM Acute right MCA Stroke (Ischemic Infarct) with petechial hemorrhage S/p TNK Etiology: Cardioembolic related to atrial fibrillation although note is made of LA clipping Testing: None Labs: None Cardiac Rhythm: History of a-fib Anti-thrombotic: Will review timing with Dr Ruffin given petechial hemorrhage on follow up CT scan. Hewill require a DOAC such as Eliquis given his history of a-fib. Anti-lipid Agent: Lipitor (atorvastatin) 40 mg BP Goal: Less than 180/105 for initial 24 hrs of admit/onset of stroke-like symptoms, then gradual steady reduction to normotension; AVOID hypotension; Attending Service to manage Therapy (Assessed for Rehab): Pending evaluation DVT Prophylaxis: DVT prophylaxis per Attending Service. Eventual Outpatient Follow-up: In Stroke [facility] Answered questions and rediscussed plan at length with Patient. Covering neurologist: Dr. Ruffin. DIAGNOSTIC TESTING SUMMARY: Resulted Testing: (MRI/CT/XR, EEG, EMG, CSF, Cardiac, Labs) I independently reviewed the CT images and agree with the interpretation(s) with the following comments: CT head 01/07: Continued evolution of the area of infarction in the right posterior frontal and temporal lobe involving the operculum with findings consistent with petechial hemorrhage as noted on the prior examination consistent with laminar necrosis. [facility] CT head: Hypoattenuation within the right M2 segment, suspicion for thrombus. [facility] CTA head/neck 01/06: Distal right MCA superior division occlusion. Dominant right vertebral artery with mod-severe stenosis throughout V1-V2, and V4 segments. Left vertebral artery diffusely hypoplastic. Left V4 segment occlusion with faint contrast seen in the left PICA. Calcified plaque to bilateral carotid bifurcations, left > right. Approximately 40-50% within the left carotid bifurcation. [facility] CT head: Subtle hypodense area involving the right llamas radiate. Previous seen hyperdensity within the distal R MCA branch not as conspicuous. CTA brain perfusion 01/06: Recanalization of previous noted right MCA occlusion. Perfusion imaging without defect. TTE: EF 59%. aortic bioprosthesis (27 mm Inspiris) appears well-seated, but is not well visualized.. There is no bioprosthetic aortic valve stenosis with a peak velocity of 2.1 m/s, mean gradient of 10 mmHg, and aortic valve area of 1.8 cm2. 5. Left atrial chamber is mildly enlarged with a left atrial volume index of 41 ml/m2 by BP MOD. Lab Results Component Value Date HGBA1C 6.6 (H) 01/06/2023 LDLCALC 66 01/06/2023 SUBJECTIVE: Chief Complaint/Reason for Consult: R MCA Stroke Informant(s): Patient, Care Team/Chart History of Present Illness: Nursing reports no acute changes. Ongoin moderate dysarthria. Patient reports his left side weakness is significantly improved. Review of Systems: All systems reviewed and negative except pertinent positives and negatives documented in the History of Present Illness (HPI). OBJECTIVE: Physical Examination: BP (!) 152/85 Pulse 65 Temp 98.2 F (36.8 C) (Axillary) Resp (!) 10 Ht 6' 1 Wt 86.4 kg (190 lb 7.6 oz) SpO2 (!) 76% BMI 25.13 kg/m MCCLOUD: DNFC: Does Not Follow Commands COOPER: Unable to Assess GENERAL: General Appearance: In NAD and otherwise well, non-toxic appearing Eyes: See pupils below Ears: See hearing below Neck: Supple Respiratory Effort: Normal Extremities: No edema Skin: No rashes visualized MENTAL STATUS: Alertness, Attention Span & Concentration: Normal Language: Normal Speech: Moderate dysarthria Orientation: Oriented to name, place, time (age), time (month), situation CRANIAL NERVES: II - Visual Juarez: Normal II, III - Pupils: PERRL III, IV, - Eye Movements: Right gaze preference, can overcome fully with encouragement V - Facial Sensation: Normal VII - Face Symmetry and Strength: Left lower facial droop VIII - Hearing: Normal IX, X - Palate: Normal XI - Shoulder Shrug: Normal XII - Tongue Protrusion: Normal COORDINATION & GROSS MOTOR: Abnormal Movements: None Coordination Ubpawh-[id number]-Omno: Normal Coordination: [id number]-[id number]-[id number]:Normal Drift: Left upper limb - trace pronator drift only Tone: Normal Bulk: Normal MOTOR - MUSCLE STRENGTH: Muscle Strength Right Left 5 Shoulder Abduction (Deltoid) 4+ 5 Elbow Flexion (Biceps) 4+ 5 Elbow Extension (Triceps) 4+ 5 Finger Abduction (Interossei) 5 5 Hip Flexion (Iliopsoas) 5 5 Knee Extension (Quads) 5 5 Knee Flexion (Hamstrings) 5 5 Dorsiflexion (Anterior Tibialis) 5 MOTOR MCCLOUD: 5 Normal (Normal Power) 4 Mild Weakness (Movement against moderate resistance over a full range of motion) 3 Moderate Weakness (Movement against gravity over almost full range of motion) 2 Severe Weakness (Movement with gravity eliminated over almost full range of motion) 1 Trace Movement (flicker of contraction visible or palpable) 0 No Movement (No contraction visible or palpable) COOPER Unable to Assess SENSATION: Fine Touch: Decreased left upper extremity Double Simultaneous Stim: Normal OTHER: Stroke Assessment - 01/07/23 0749 NIH Stroke Scale Interval Other (Comment) Level of Consciousness (1a.) 0 LOC Questions (1b.) 0 LOC Commands (1c.) 0 Best Gaze (2.) 1 Visual (3.) 0 Facial Palsy (4.) 2 Motor Arm, Left (5a.) 1 trace pronator drift Motor Arm, Right (5b.) 0 Motor Leg, Left (6a.) 0 Motor Leg, Right (6b.) 0 Limb Ataxia (7.) 0 Sensory (8.) 0 Best Language (9.) 0 Dysarthria (10.) 1 Extinction and Inattention (11.) (Formerly Neglect) 0 Total 5 Modified Cira Scale 0 No Symptoms at all 1 No Signficant disability despite symptoms. Able to carry out all usual duties and activities 2 Slight disability. Unable to carry out all previous activities, but able to look after own affairs without assistance 3 Moderate disability. Requiring some help, but able to walk without assistance 4 Moderately severe disability. Unable to walk without assistance. Unable to attend all bodily needs without assistance. 5 Severe disability. Bedridden, incontinent, and requiring constant nursing care and attention 6 Modified Glidden Score: 0 documented in this [id number] Note* Plan of Care - Zaida Musa RN - 01/14/2023 2:16 AM EST Problem: Actual or potential alteration in health Goal: Absence of healthcare acquired conditions Outcome: Met Goal: Knowledge of Interdisciplinary Plan of Care Outcome: Met Goal: Knowledge of Enviroment Outcome: Met Problem: Pressure Ulcer - Risk of Goal: Absence of pressure ulcer Outcome: Met Problem: Pain Goal: Manage acute pain Outcome: Met Goal: Manage chronic pain Outcome: Met Goal: Reduced pain sensation Outcome: Met Goal: Achievement of comfort function goal Outcome: Met Problem: Falls, Risk of Goal: Absence of falls Outcome: Met Problem: Stroke - Ischemic - Required Education Goal: Knowledge of care transition plan Outcome: Met Problem: Aspiration, Risk of Goal: Absence of aspiration Outcome: Met Goal: Safe intake of nutrition, fluids, and medications Outcome: Met Problem: Activity Intolerance Goal: Improved activity tolerance Outcome: Met Goal: Able to participate in acute rehabilitation Outcome: Met Goal: Knowledge of prescribed activities Outcome: Met Problem: Bleeding, Risk of Goal: Absence of impaired coagulation signs and symptoms Outcome: Met Problem: Cognitive-Perceptual Pattern - Impaired Goal: Able to achieve maximum level of cognitive ability Outcome: Met Problem: Mobility - Impaired Goal: Able to achieve maximum mobility level Outcome: Met Problem: Mood - Altered Goal: Mood stable Outcome: Met Problem: Self-care Deficit Goal: Able to perform ADL Outcome: Met Goal: Able to communicate ADL needs Outcome: Met Goal: Able to use self-care assistive device appropriately Outcome: Met Problem: Tissue Perfusion, Cerebral - Altered Goal: Absence of continued neurologic deterioration signs and symptoms Outcome: Met Problem: Venous Thromboembolism, Risk of Goal: Absence of venous thromboembolism Outcome: Met Problem: Verbal Communication - Impaired Goal: Effective communication Outcome: Met Problem: Plan for Discharge Goal: Knowledge of discharge plan and instructions Outcome: Met Goal: Knowledge of personal stroke risk factors Outcome: Met Goal: Knowledge of stroke warning signs Outcome: Met [id number] Miscellaneous Notes* Plan of Care - Zaida Musa RN - 01/14/2023 2:16 AM EST Problem: Actual or potential alteration in health Goal: Absence of healthcare acquired conditions Outcome: Met Goal: Knowledge of Interdisciplinary Plan of Care Outcome: Met Goal: Knowledge of Enviroment Outcome: Met Problem: Pressure Ulcer - Risk of Goal: Absence of pressure ulcer Outcome: Met Problem: Pain Goal: Manage acute pain Outcome: Met Goal: Manage chronic pain Outcome: Met Goal: Reduced pain sensation Outcome: Met Goal: Achievement of comfort function goal Outcome: Met Problem: Falls, Risk of Goal: Absence of falls Outcome: Met Problem: Stroke - Ischemic - Required Education Goal: Knowledge of care transition plan Outcome: Met Problem: Aspiration, Risk of Goal: Absence of aspiration Outcome: Met Goal: Safe intake of nutrition, fluids, and medications Outcome: Met Problem: Activity Intolerance Goal: Improved activity tolerance Outcome: Met Goal: Able to participate in acute rehabilitation Outcome: Met Goal: Knowledge of prescribed activities Outcome: Met Problem: Bleeding, Risk of Goal: Absence of impaired coagulation signs and symptoms Outcome: Met Problem: Cognitive-Perceptual Pattern - Impaired Goal: Able to achieve maximum level of cognitive ability Outcome: Met Problem: Mobility - Impaired Goal: Able to achieve maximum mobility level Outcome: Met Problem: Mood - Altered Goal: Mood stable Outcome: Met Problem: Self-care Deficit Goal: Able to perform ADL Outcome: Met Goal: Able to communicate ADL needs Outcome: Met Goal: Able to use self-care assistive device appropriately Outcome: Met Problem: Tissue Perfusion, Cerebral - Altered Goal: Absence of continued neurologic deterioration signs and symptoms Outcome: Met Problem: Venous Thromboembolism, Risk of Goal: Absence of venous thromboembolism Outcome: Met Problem: Verbal Communication - Impaired Goal: Effective communication Outcome: Met Problem: Plan for Discharge Goal: Knowledge of discharge plan and instructions Outcome: Met Goal: Knowledge of personal stroke risk factors Outcome: Met Goal: Knowledge of stroke warning signs Outcome: Met * Initial Assessments - Irene Cervantes RD - 01/13/2023 3:31 PM EST Nutrition Care Initial Assessment Reason for visit: Dietitian Screen for LOS Nutrition Diagnosis: Predicted inadequate energy intake related to dysphagia, neuro deficits as evidenced by need for modified diet. Nutrition Intervention: Continue Meal and Snacks, Initiate Oral Nutrition Supplements Diet texture/consistency per [employer] recommendations Nutrition Prescription: Diet: Diabetic (75 gm CHO/meal), Chopped, Thin Liquids Oral nutrition supplement: Vanilla NSA mighty shakes once daily at dinner Nutrition Goals: PO intake > 50-75% most meals and ONS Start Date:01/13/2023 Expected End Date:01/19/2023 Nutrition Education: No needs at this time Assessment: Pertinent clinical information: 82 yo male with hx of CAD, a fib s/p cardopversion/MAZE/LA clipping, CHF, IDDM2 admitted from [facility] with acute R MCA CVA s/p TPA. MBS 01/06-Pureed, Thin Liquids. Advanced to Chopped, Thin Liquids on 01/12. PO intakes good per nursing documentation. Precert lorie vasquez for IPR. Past Medical History: Diagnosis Date Arthritis Back pain CHF (congestive heart failure) (HCC) COPD (chronic obstructive pulmonary disease) (HCC) Coronary artery disease Diabetes mellitus (HCC) Diabetes mellitus, type 2 (HCC) Disease of thyroid gland GERD (gastroesophageal reflux disease) Hernia of abdominal wall Hyperlipidemia Hypertension Myocardial infarction (HCC) Sleep apnea, obstructive refuses to use c-pap Stroke (HCC) Current ht:6' 1 Current wt:.107.8 kg (237 lb 10.5 oz) Body mass index is 31.35 kg/m . BMI Classification: Class I Obesity (30-34.9) Wt hx: Wt Readings from Last 5 Encounters: 01/12/23 107.8 kg (237 lb 10.5 oz) 01/05/23 111.6 kg (246 lb) 06/25/22 112.9 kg (249 lb) 04/15/22 115.1 kg (253 lb 12.8 oz) 03/09/22 114.4 kg (252 lb 3.2 oz) Weight change: suspect weight on 01/05 was stated. If so, -5% in 6 months, -6% in 10 months. Clinically insignificant but important to note. Current diet order: Diabetic, Chopped Recent intake: 50-75%, 75-100% Current intake Likely meets estimated needs. Patient/family comments: spoke with pt at bedside. Reports he was eating well at home with no issues prior to this incident. Says he is doing okay with eating now. Tries to eat at least half of his meals. Had a vanilla ice cream as a snack which he very much enjoyed. Would be open to have a vanillamilkshake to help intake. Difficulty Chewing/Swallowing: Speech following Skin Integrity: wound to L elbow Edema: WDL GI Function: LBM 01/12 Nutrition Focus Physical Exam Type: no overt signs/symptoms of malnutrition per visual exam Labs: Recent Labs 01/11/23 0836 01/13/23 0833 NA 136 135 K 5.0 5.0 BICARB 26 26 CL 99 98 GLUCOSE 163* 179* BUN 19 25 CREATININE 1.06 1.39* MG 2.3 2.4 Lab Results Component Value Date HGBA1C 6.6 (H) 01/06/2023 HGBA1C 6.9 (H) 03/09/2022 HGBA1C 7.6 (H) 08/11/2021 Scheduled Meds: amLODIPine 10 mg Oral Daily apixaban 5 mg Oral BID atorvastatin 40 mg Oral Nightly cyanocobalamin 1,000 mcg Oral Daily dofetilide 250 mcg Oral Q12H GENIE furosemide 40 mg Oral Daily lispro insulin 0-15 Units Subcutaneous at bedtime insulin lispro 0-30 Units Subcutaneous TID AC levothyroxine 175 mcg Oral Daily lisinopriL 10 mg Oral Daily with lunch magnesium oxide 400 mg Oral Daily multivitamin 1 tablet Oral Daily pantoprazole 40 mg Oral Daily polyethylene glycol 17 g Oral Daily senna-docusate 1 tablet Oral BID sodium chloride (PF) 5 mL Intravenous Q8H GENIE tamsulosin 0.4 mg Oral After evening meal Estimated Needs: Estimated Energy Needs Total Energy Estimated Needs: 4108-6311 kcal Method for Estimating Needs: 22-25 kcal/kg IBW BMI 24.9 (86 kg) Total Protein Estimated Needs: 95-112 gm Method for Estimating Needs: 1.1-1.3 gm/kg IBW BMI 24.[address], LD, CNSC * Plan of Care - Zaida Musa RN - 01/13/2023 3:01 AM EST Problem: Actual or potential alteration in health Goal: Absence of healthcare acquired conditions 01/13/2023300 by Zaida Musa RN Outcome: Met 01/13/2023258 by Zaida Musa RN Outcome: Met Goal: Knowledge of Interdisciplinary Plan of Care 01/13/2023300 by Zaida Musa RN Outcome: Met 01/13/2023258 by Zaida Musa RN Outcome: Met Goal: Knowledge of Enviroment 01/13/2023300 by Zaida Musa RN Outcome: Met 01/13/2023258 by Zaida Musa RN Outcome: Met Problem: Pressure Ulcer - Risk of Goal: Absence of pressure ulcer 01/13/2023300 by Zaida Musa RN Outcome: Met 01/13/2023258 by Zaida Musa RN Outcome: Met Problem: Pain Goal: Manage acute pain 01/13/2023300 by Zaida Musa RN Outcome: Met 01/13/2023258 by Zaida Musa RN Outcome: Met Goal: Manage chronic pain 01/13/2023300 by Zaida Musa RN Outcome: Met 01/13/2023258 by Zaida Musa RN Outcome: Met Goal: Reduced pain sensation 01/13/2023300 by Zaida Musa RN Outcome: Met 01/13/2023258 by Zaida Musa RN Outcome: Met Goal: Achievement of comfort function goal 01/13/2023300 by Zaida Musa RN Outcome: Met 01/13/2023258 by Ziada Musa RN Outcome: Met Problem: Falls, Risk of Goal: Absence of falls 01/13/2023300 by Zaida Musa RN Outcome: Met 01/13/2023258 by Zaida Musa RN Outcome: Met Problem: Stroke - Ischemic - Required Education Goal: Knowledge of care transition plan 01/13/2023300 by Zaida Musa RN Outcome: Met 01/13/2023258 by Zaida Musa RN Outcome: Met Problem: Aspiration, Risk of Goal: Absence of aspiration 01/13/2023300 by Zaida Musa RN Outcome: Met 01/13/2023258 by Zaida Musa RN Outcome: Met Goal: Safe intake of nutrition, fluids, and medications 01/13/2023300 by Zaida Musa RN Outcome: Met 01/13/2023258 by Zaida Musa RN Outcome: Met Problem: Activity Intolerance Goal: Improved activity tolerance 01/13/2023300 by Zaida Musa RN Outcome: Met 01/13/2023258 by Zaida Musa RN Outcome: Met Goal: Able to participate in acute rehabilitation 01/13/2023300 by Zaida Musa RN Outcome: Met 01/13/2023258 by Zaida Musa RN Outcome: Met Goal: Knowledge of prescribed activities 01/13/2023300 by Zaida Musa RN Outcome: Met 01/13/2023258 by Zaida Musa RN Outcome: Met Problem: Bleeding, Risk of Goal: Absence of impaired coagulation signs and symptoms 01/13/2023300 by Zaida Musa RN Outcome: Met 01/13/2023 0259 by Zaida Musa RN Outcome: Met Problem: Cognitive-Perceptual Pattern - Impaired Goal: Able to achieve maximum level of cognitive ability 01/13/2023 030 by Zaida Musa RN Outcome: Met 01/13/2023 025 by Zaida Musa RN Outcome: Met Problem: Mobility - Impaired Goal: Able to achieve maximum mobility level 01/13/2023 030 by Zaida Musa RN Outcome: Met 01/13/2023 025 by Zaida Musa RN Outcome: Met Problem: Mood - Altered Goal: Mood stable 01/13/2023 030 by Zaida Musa RN Outcome: Met 01/13/2023258 by Zaida Musa RN Outcome: Met Problem: Self-care Deficit Goal: Able to perform ADL 01/13/2023300 by Zaida Musa RN Outcome: Met 01/13/2023258 by Zaida Musa RN Outcome: Met Goal: Able to communicate ADL needs 01/13/2023300 by Zaida Musa RN Outcome: Met 01/13/2023258 by Zaida Musa RN Outcome: Met Goal: Able to use self-care assistive device appropriately 01/13/2023300 by Zaida Musa RN Outcome: Met 01/13/2023258 by Zaida Musa RN Outcome: Met Problem: Tissue Perfusion, Cerebral - Altered Goal: Absence of continued neurologic deterioration signs and symptoms 01/13/2023300 by Zaida Musa RN Outcome: Met 01/13/2023 025 by Zaida Musa RN Outcome: Met Problem: Venous Thromboembolism, Risk of Goal: Absence of venous thromboembolism 01/13/2023300 by Zaida Musa RN Outcome: Met 01/13/2023258 by Zaida Musa RN Outcome: Met Problem: Verbal Communication - Impaired Goal: Effective communication 01/13/2023300 by Zaida Musa RN Outcome: Met 01/13/2023 025 by Dimple, Shonbrica, RN Outcome: Met Problem: Plan for Discharge Goal: Knowledge of discharge plan and instructions 01/13/2023300 by Zaida Musa RN Outcome: Met 01/13/2023258 by Zaida Musa RN Outcome: Met Goal: Knowledge of personal stroke risk factors 01/13/2023300 by Zaida Musa RN Outcome: Met 01/13/2023258 by Zaida Musa RN Outcome: Met Goal: Knowledge of stroke warning signs 01/13/2023300 by Zaida Musa RN Outcome: Met 01/13/2023258 by Zaida Musa RN Outcome: Met Problem: Urinary Elimination - Impaired Goal: Urinary elimination within specified parameters 01/13/2023299 by Zaida Musa RN Outcome: Completed 01/13/2023258 by Zaida Musa RN Outcome: Met Goal: Absence of postvoid residual 01/13/2023 030 by Zaida Musa RN Outcome: Completed 01/13/2023258 by Zaida Musa RN Outcome: Met Goal: Absence of urinary incontinence 01/13/2023299 by Zaida Musa RN Outcome: Completed 01/13/2023258 by Zaida Musa RN Outcome: Met Goal: Decrease in number of episodes of urinary incontinence 01/13/2023299 by Zaida Musa RN Outcome: Completed 01/13/2023258 by Zaida Musa RN Outcome: Met * Plan of Care - Zaida Musa RN - 01/12/2023 3:34 AM EST Problem: Actual or potential alteration in health Goal: Absence of healthcare acquired conditions Outcome: Met Goal: Knowledge of Interdisciplinary Plan of Care Outcome: Met Goal: Knowledge of Enviroment Outcome: Met Problem: Pressure Ulcer - Risk of Goal: Absence of pressure ulcer Outcome: Met Problem: Pain Goal: Manage acute pain Outcome: Met Goal: Manage chronic pain Outcome: Met Goal: Reduced pain sensation Outcome: Met Goal: Achievement of comfort function goal Outcome: Met Problem: Falls, Risk of Goal: Absence of falls Outcome: Met Problem: Stroke - Ischemic - Required Education Goal: Knowledge of care transition plan Outcome: Met Problem: Aspiration, Risk of Goal: Absence of aspiration Outcome: Met Goal: Safe intake of nutrition, fluids, and medications Outcome: Met Problem: Activity Intolerance Goal: Improved activity tolerance Outcome: Met Goal: Able to participate in acute rehabilitation Outcome: Met Goal: Knowledge of prescribed activities Outcome: Met Problem: Bleeding, Risk of Goal: Absence of impaired coagulation signs and symptoms Outcome: Met Problem: Cognitive-Perceptual Pattern - Impaired Goal: Able to achieve maximum level of cognitive ability Outcome: Met Problem: Mobility - Impaired Goal: Able to achieve maximum mobility level Outcome: Met Problem: Mood - Altered Goal: Mood stable Outcome: Met Problem: Self-care Deficit Goal: Able to perform ADL Outcome: Met Goal: Able to communicate ADL needs Outcome: Met Goal: Able to use self-care assistive device appropriately Outcome: Met Problem: Tissue Perfusion, Cerebral - Altered Goal: Absence of continued neurologic deterioration signs and symptoms Outcome: Met Problem: Urinary Elimination - Impaired Goal: Urinary elimination within specified parameters Outcome: Met Goal: Absence of postvoid residual Outcome: Met Goal: Absence of urinary incontinence Outcome: Met Goal: Decrease in number of episodes of urinary incontinence Outcome: Met Problem: Venous Thromboembolism, Risk of Goal: Absence of venous thromboembolism Outcome: Met Problem: Verbal Communication - Impaired Goal: Effective communication Outcome: Met Problem: Plan for Discharge Goal: Knowledge of discharge plan and instructions Outcome: Met Goal: Knowledge of personal stroke risk factors Outcome: Met Goal: Knowledge of stroke warning signs Outcome: Met * Plan of Care - Renea Goyal RN - 01/10/2023 6:30 AM EST Problem: Actual or potential alteration in health Goal: Absence of healthcare acquired conditions Outcome: Met Goal: Knowledge of Enviroment Outcome: Met Problem: Pressure Ulcer - Risk of Goal: Absence of pressure ulcer Outcome: Met Problem: Pain Goal: Manage acute pain Outcome: Met Goal: Manage chronic pain Outcome: Met Goal: Reduced pain sensation Outcome: Met Problem: Falls, Risk of Goal: Absence of falls Outcome: Met Problem: Bleeding, Risk of Goal: Absence of impaired coagulation signs and symptoms Outcome: Met Problem: Mood - Altered Goal: Mood stable Outcome: Met * Quick Note - Alison Thomas RN - 01/09/2023 1:[address] Ruffin approve for patient to do stroke prevention follow up in [place] at [facility] [address] [place] [address] Medical Office Building, 2nd Floor [facility] [id number] Patient follow up appointment scheduled with Christina Branham CNP on Wednesday 2:30 PM, with arrival time of 2:00 PM. Appointment details added to AVS and Neurology Navigator met with patient to review details for follow up appointment. Neurology Navigator reviewed with patient the Understanding Stroke booklet including the signs and symptoms of stroke, when to call 911 for stroke symptoms, importance of follow-up appointment with listed providers and individual stroke risk factors of atrial fibrillation, diabetes mellitus, hyperlipidemia, hypertension, and obstructive sleep apnea. Written material provided, appointment scheduling questions answered. Please contact Neurology Navigator at [phone] if you have additional questions or needs. * Plan of Care - Savannah Jaquez RN - 01/09/2023 12:17 AM EST Problem: Actual or potential alteration in health Goal: Absence of healthcare acquired conditions Outcome: Partially Met Goal: Knowledge of Interdisciplinary Plan of Care Outcome: Partially Met Goal: Knowledge of Enviroment Outcome: Partially Met Problem: Pressure Ulcer - Risk of Goal: Absence of pressure ulcer Outcome: Partially Met Problem: Pain Goal: Manage acute pain Outcome: Partially Met Goal: Manage chronic pain Outcome: Partially Met Goal: Reduced pain sensation Outcome: Partially Met Goal: Achievement of comfort function goal Outcome: Partially Met Problem: Falls, Risk of Goal: Absence of falls Outcome: Partially Met Problem: Stroke - Ischemic - Required Education Goal: Knowledge of care transition plan Outcome: Partially Met Problem: Aspiration, Risk of Goal: Absence of aspiration Outcome: Partially Met Goal: Safe intake of nutrition, fluids, and medications Outcome: Partially Met Problem: Activity Intolerance Goal: Improved activity tolerance Outcome: Partially Met Goal: Able to participate in acute rehabilitation Outcome: Partially Met Goal: Knowledge of prescribed activities Outcome: Partially Met Problem: Bleeding, Risk of Goal: Absence of impaired coagulation signs and symptoms Outcome: Partially Met Problem: Cognitive-Perceptual Pattern - Impaired Goal: Able to achieve maximum level of cognitive ability Outcome: Partially Met Problem: Mobility - Impaired Goal: Able to achieve maximum mobility level Outcome: Partially Met Problem: Mood - Altered Goal: Mood stable Outcome: Partially Met Problem: Self-care Deficit Goal: Able to perform ADL Outcome: Partially Met Goal: Able to communicate ADL needs Outcome: Partially Met Goal: Able to use self-care assistive device appropriately Outcome: Partially Met Problem: Tissue Perfusion, Cerebral - Altered Goal: Absence of continued neurologic deterioration signs and symptoms Outcome: Partially Met Problem: Urinary Elimination - Impaired Goal: Urinary elimination within specified parameters Outcome: Partially Met Goal: Absence of postvoid residual Outcome: Partially Met Goal: Absence of urinary incontinence Outcome: Partially Met Goal: Decrease in number of episodes of urinary incontinence Outcome: Partially Met Problem: Venous Thromboembolism, Risk of Goal: Absence of venous thromboembolism Outcome: Partially Met Problem: Verbal Communication - Impaired Goal: Effective communication Outcome: Partially Met Problem: Plan for Discharge Goal: Knowledge of discharge plan and instructions Outcome: Partially Met Goal: Knowledge of personal stroke risk factors Outcome: Partially Met Goal: Knowledge of stroke warning signs Outcome: Partially Met * CDI Query - Elier Mejia MD - 01/08/2023 10:23 AM EST Noted monitoring of creatinine. Clinical Indicators: NOTE: 01/05/23 Cr result from OSH 01/05/23 13:52 01/06/23 01:39 01/07/23 03:09 01/08/23 07:51 Creatinine 1.46 (H) 1.43 (H) 1.08 0.99 Transfer with Rt MCA Stroke (ischemic) s/p Alteplase at OSH Hospitalist Consult - since 02/2022 sCR has ranged 1.3-1.4 previously 0.9-1.2 - On admission sCR 1.43 - PMH includes CKD3 and HTN Please document the corresponding diagnosis reflective of the creatinine. Please include the present on admission status if applicable. For Example: AJAY, POA resolved Elevated creatinine is clinically undetermined Other (please specify) Unable to determine Thank you Ashley Salgado RN, CCDS Clinical Documentation Deposition Operator After business hours you may contact Janine Swartz at [phone] (Weekdays until 10 PM and weekends 8 AM -10 PM) * Sign Off Note - Antonieta Palacio CNP - 01/07/2023 12:27 PM EST Neurology Neurovascular Sign-Off Diagnosis: Acute right MCA stroke Associated Large Vessel Lesion: None Neurovascular Etiology: AFib Risk Factor Labs: Lab Results Component Value Date LDLCALC 66 01/06/2023 Lab Results Component Value Date HGBA1C 6.6 (H) 01/06/2023 Procedures & Acute Interventions: Thrombolytic - tPA Demographics/Scores: Age & Sex: 82 y.o. male Ethnicity: Not or [* Zip: [id number] NIHSS Admission Total: 7 NIHSS at Sign Off Total: 5 [id number] Score: HTN = 1, Diabetes= 1, Stroke/Tia= 2, and Sex ( Female) =1 Support System: Family PENDING Procedures: None AFib surveillance at Discharge: None needed Blood pressure goals at Discharge: Less than 130/80; AVOID hypotension; Attending Service to manage Anti-thrombotic at Discharge: ASA 81 mg daily until 01/11/23 (once AC starts) Eliquis 5 mg BID to begin 01/11/23 Anti-hyperlipidemic at Discharge: Lipitor (atorvastatin) 40 mg Other treatments at Discharge: None Anticipated disposition at Discharge: Unknown at this time Follow-up Appointment: In Stroke Prevention [facility]. See Discharge Tab/AVS for details. Recall: If questions. If worsening neurologic exam. Non-Urgent Questions or Reconsultation ([facility]): Call Neurology space systems operations superintendent [phone] Urgent Questions: Use [facility] On-call Directory to contact Physician * Quick Note - Sandi Vincent RN - 01/07/2023 10:40 AM EST Patient transferred out of unit to room 5517 with shoes, belt, long caro, flannel shirt, sweatshirt. Verified with second associateMoses RN * [facility] - Erendira Chin PT - 01/06/2023 3:35 PM EST PHYSICAL THERAPY VISIT VARIANCE NOTE Attempted to see patient at this time, but unable secondary to: Awaiting Medical Clearance (comment) (Awaiting post 24 hour tPA protocol - tPA administered 01/06 at 2:03AM). Will follow up as appropriate. * Plan of Care - Nancy Vasquez RN - 01/06/2023 7:57 AM EST patient is able to verbalize understanding but will require reinforcement as he is not able to repeat back teachings * Quick Note - Nola Aldridge RN - 01/06/2023 6:13 AM EST Patient arrives on unit with no belongings. Verified with second Lucinda heath RN Skin assessment completed upon admission to unit. Verified by note author and TAI Jane. Left upper arm skin tear. Preventative Mepilex applied to sacrum and heels. * Quick Note - Raúl Baltazar DO - 01/06/2023 4:44 AM EST Please see my other note from [facility] for full details. In brief, pt arrives from [facility] as transfer for RIGHT MCA syndrome, NIHSS 17 s/p TPA at OSH. Pt.'s exam is much improved. PT arrives. SBP 158/71. On exam, NIH Stroke Scale Level of Consciousness (1a.): Alert, keenly responsive LOC Questions (1b.): Answers one question correctly LOC Commands (1c.): Performs both tasks correctly Best Gaze (2.): Normal Visual (3.): No visual loss Facial Palsy (4.): Partial paralysis Motor Arm, Left (5a.): Drift Motor Arm, Right (5b.): No drift Motor Leg, Left (6a.): No drift Motor Leg, Right (6b.): No drift Limb Ataxia (7.): Absent Sensory (8.): Pbyo-vp-wokvbzza sensory loss, patient feels pinprick is less sharp or is dull on theaffected side, or there is a loss of superficial pain with pinprick, but patient is aware of being touched Best Language (9.): Eyws-ju-nmldvayy aphasia Dysarthria (10.): Ckwg-iy-pufcxxsj dysarthria, patient slurs at least some words and, at worst, canbe understood with some difficulty Extinction and Inattention (11.) (Formerly Neglect): No abnormality Total: 7 CTH: no acute stroke or hemorrhage. CTAP: no perfusion deficits, M2 occlusion has recanalized A/P: Pt with RIGHT MCA stroke in setting of AF, not on AC, however, pt has LA clip in place. -NCC for post thrombolytic are. -Formal neurology consult -CTH at 18-24H s/p TPA -TTE & Telemetry monitoring -Hold antiplatelet/anticoagulant for 24 hours and resume once repeat imaging shows no hemorrhage. -Check fasting lipid profile, and initiate or increase statin regimen depending on LDL for secondary stroke prevention. - HbA1c goal < 7. -BP goals: Systolic not to exceed 180 post thrombolytic, Diastolic not to exceed 105 post thrombolytic. -PT/OT/speech therapy Raúl Baltazar D.O., ABPN Vascular Neurologist [facility] documented in this [id number] Initial evaluation note* Initial Assessments - Irene Cervantes RD - 01/13/2023 3:31 PM EST Nutrition Care Initial Assessment Reason for visit: Dietitian Screen for LOS Nutrition Diagnosis: Predicted inadequate energy intake related to dysphagia, neuro deficits as evidenced by need for modified diet. Nutrition Intervention: Continue Meal and Snacks, Initiate Oral Nutrition Supplements Diet texture/consistency per [employer] recommendations Nutrition Prescription: Diet: Diabetic (75 gm CHO/meal), Chopped, Thin Liquids Oral nutrition supplement: Vanilla NSA mighty shakes once daily at dinner Nutrition Goals: PO intake > 50-75% most meals and ONS Start Date:01/13/2023 Expected End Date:01/19/2023 Nutrition Education: No needs at this time Assessment: Pertinent clinical information: 82 yo male with hx of CAD, a fib s/p cardopversion/MAZE/LA clipping, CHF, IDDM2 admitted from [facility] with acute R MCA CVA s/p TPA. MBS 01/06-Pureed, Thin Liquids. Advanced to Chopped, Thin Liquids on 01/12. PO intakes good per nursing documentation. Precert lorie vasquez for IPR. Past Medical History: Diagnosis Date Arthritis Back pain CHF (congestive heart failure) (HCC) COPD (chronic obstructive pulmonary disease) (HCC) Coronary artery disease Diabetes mellitus (HCC) Diabetes mellitus, type 2 (HCC) Disease of thyroid gland GERD (gastroesophageal reflux disease) Hernia of abdominal wall Hyperlipidemia Hypertension Myocardial infarction (HCC) Sleep apnea, obstructive refuses to use c-pap Stroke (HCC) Current ht:6' 1 Current wt:.107.8 kg (237 lb 10.5 oz) Body mass index is 31.35 kg/m . BMI Classification: Class I Obesity (30-34.9) Wt hx: Wt Readings from Last 5 Encounters: 01/12/23 107.8 kg (237 lb 10.5 oz) 01/05/23 111.6 kg (246 lb) 06/25/22 112.9 kg (249 lb) 04/15/22 115.1 kg (253 lb 12.8 oz) 03/09/22 114.4 kg (252 lb 3.2 oz) Weight change: suspect weight on 01/05 was stated. If so, -5% in 6 months, -6% in 10 months. Clinically insignificant but important to note. Current diet order: Diabetic, Chopped Recent intake: 50-75%, 75-100% Current intake Likely meets estimated needs. Patient/family comments: spoke with pt at bedside. Reports he was eating well at home with no issues prior to this incident. Says he is doing okay with eating now. Tries to eat at least half of his meals. Had a vanilla ice cream as a snack which he very much enjoyed. Would be open to have a vanillamilkshake to help intake. Difficulty Chewing/Swallowing: Speech following Skin Integrity: wound to L elbow Edema: WDL GI Function: LBM 01/12 Nutrition Focus Physical Exam Type: no overt signs/symptoms of malnutrition per visual exam Labs: Recent Labs 01/11/23 0836 01/13/23 0833 NA 136 135 K 5.0 5.0 BICARB 26 26 CL 99 98 GLUCOSE 163* 179* BUN 19 25 CREATININE 1.06 1.39* MG 2.3 2.4 Lab Results Component Value Date HGBA1C 6.6 (H) 01/06/2023 HGBA1C 6.9 (H) 03/09/2022 HGBA1C 7.6 (H) 08/11/2021 Scheduled Meds: amLODIPine 10 mg Oral Daily apixaban 5 mg Oral BID atorvastatin 40 mg Oral Nightly cyanocobalamin 1,000 mcg Oral Daily dofetilide 250 mcg Oral Q12H GENIE furosemide 40 mg Oral Daily lispro insulin 0-15 Units Subcutaneous at bedtime insulin lispro 0-30 Units Subcutaneous TID AC levothyroxine 175 mcg Oral Daily lisinopriL 10 mg Oral Daily with lunch magnesium oxide 400 mg Oral Daily multivitamin 1 tablet Oral Daily pantoprazole 40 mg Oral Daily polyethylene glycol 17 g Oral Daily senna-docusate 1 tablet Oral BID sodium chloride (PF) 5 mL Intravenous Q8H GENIE tamsulosin 0.4 mg Oral After evening meal Estimated Needs: Estimated Energy Needs Total Energy Estimated Needs: 1953-1107 kcal Method for Estimating Needs: 22-25 kcal/kg IBW BMI 24.9 (86 kg) Total Protein Estimated Needs: 95-112 gm Method for Estimating Needs: 1.1-1.3 gm/kg IBW BMI 24.[address], LD, CNSC [id number] Note* Plan of Care - Zaida Musa RN - 01/13/2023 3:01 AM EST Problem: Actual or potential alteration in health Goal: Absence of healthcare acquired conditions 01/13/2023 030 by Zaida Musa RN Outcome: Met 01/13/2023 025 by Zaida Musa RN Outcome: Met Goal: Knowledge of Interdisciplinary Plan of Care 01/13/2023300 by Zaida Musa RN Outcome: Met 01/13/2023258 by Zaida Musa RN Outcome: Met Goal: Knowledge of Enviroment 01/13/2023300 by Zaida Musa RN Outcome: Met 01/13/2023258 by Zaida Musa RN Outcome: Met Problem: Pressure Ulcer - Risk of Goal: Absence of pressure ulcer 01/13/2023300 by Zaida Musa RN Outcome: Met 01/13/2023 025 by Zaida Musa RN Outcome: Met Problem: Pain Goal: Manage acute pain 01/13/2023300 by Zaida Musa RN Outcome: Met 01/13/2023 025 by Zaida Musa RN Outcome: Met Goal: Manage chronic pain 01/13/2023300 by Zaida Musa RN Outcome: Met 01/13/2023 025 by Zaida Musa RN Outcome: Met Goal: Reduced pain sensation 01/13/2023300 by Zaida Musa RN Outcome: Met 01/13/2023 025 by Zaida Musa RN Outcome: Met Goal: Achievement of comfort function goal 01/13/2023300 by Zaida Musa RN Outcome: Met 01/13/2023 025 by Zaida Musa RN Outcome: Met Problem: Falls, Risk of Goal: Absence of falls 01/13/2023300 by Zaida Musa RN Outcome: Met 01/13/2023 0259 by Zaida Musa RN Outcome: Met Problem: Stroke - Ischemic - Required Education Goal: Knowledge of care transition plan 01/13/2023300 by Zaida Musa RN Outcome: Met 01/13/2023258 by Zaida Musa RN Outcome: Met Problem: Aspiration, Risk of Goal: Absence of aspiration 01/13/2023300 by Zaida Musa RN Outcome: Met 01/13/2023258 by Zaida Musa RN Outcome: Met Goal: Safe intake of nutrition, fluids, and medications 01/13/2023300 by Zaida Musa RN Outcome: Met 01/13/2023258 by Zaida Musa RN Outcome: Met Problem: Activity Intolerance Goal: Improved activity tolerance 01/13/2023300 by Zaida Musa RN Outcome: Met 01/13/2023258 by Zaida Musa RN Outcome: Met Goal: Able to participate in acute rehabilitation 01/13/2023300 by Zaida Musa RN Outcome: Met 01/13/2023258 by Zaida Musa RN Outcome: Met Goal: Knowledge of prescribed activities 01/13/2023300 by Zaida Musa RN Outcome: Met 01/13/2023258 by Zaida Musa RN Outcome: Met Problem: Bleeding, Risk of Goal: Absence of impaired coagulation signs and symptoms 01/13/2023300 by Zaida Musa RN Outcome: Met 01/13/2023258 by Zaida Musa RN Outcome: Met Problem: Cognitive-Perceptual Pattern - Impaired Goal: Able to achieve maximum level of cognitive ability 01/13/2023300 by Zaida Musa RN Outcome: Met 01/13/2023258 by Zaida Musa RN Outcome: Met Problem: Mobility - Impaired Goal: Able to achieve maximum mobility level 01/13/2023300 by Zaida Musa RN Outcome: Met 01/13/2023258 by Zaida Musa RN Outcome: Met Problem: Mood - Altered Goal: Mood stable 01/13/2023300 by Zaida Musa RN Outcome: Met 01/13/2023 025 by Zaida Musa RN Outcome: Met Problem: Self-care Deficit Goal: Able to perform ADL 01/13/2023300 by Zaida Musa RN Outcome: Met 01/13/2023258 by Zaida Musa RN Outcome: Met Goal: Able to communicate ADL needs 01/13/2023300 by Zaida Musa RN Outcome: Met 01/13/2023258 by Zaida Musa RN Outcome: Met Goal: Able to use self-care assistive device appropriately 01/13/2023300 by Zaida Musa RN Outcome: Met 01/13/2023258 by Zaida Musa RN Outcome: Met Problem: Tissue Perfusion, Cerebral - Altered Goal: Absence of continued neurologic deterioration signs and symptoms 01/13/2023300 by Zaida Musa RN Outcome: Met 01/13/2023258 by Zaida Musa RN Outcome: Met Problem: Venous Thromboembolism, Risk of Goal: Absence of venous thromboembolism 01/13/2023300 by Zaida Musa RN Outcome: Met 01/13/2023258 by Zaida Musa RN Outcome: Met Problem: Verbal Communication - Impaired Goal: Effective communication 01/13/2023300 by Zaida Musa RN Outcome: Met 01/13/2023258 by Zaida Musa RN Outcome: Met Problem: Plan for Discharge Goal: Knowledge of discharge plan and instructions 01/13/2023300 by Zaida Musa RN Outcome: Met 01/13/2023258 by Zaida Musa RN Outcome: Met Goal: Knowledge of personal stroke risk factors 01/13/2023300 by Zaida Musa RN Outcome: Met 01/13/2023258 by Zaida Musa RN Outcome: Met Goal: Knowledge of stroke warning signs 01/13/2023300 by Zaida Musa RN Outcome: Met 01/13/2023 0259 by Zaida Musa RN Outcome: Met Problem: Urinary Elimination - Impaired Goal: Urinary elimination within specified parameters 01/13/2023 0300 by Zaida Musa RN Outcome: Completed 01/13/2023 025 by Zaida Musa RN Outcome: Met Goal: Absence of postvoid residual 01/13/2023 0300 by Zaida Musa RN Outcome: Completed 01/13/2023 025 by Zaida Musa RN Outcome: Met Goal: Absence of urinary incontinence 01/13/2023 0300 by Zaida Musa RN Outcome: Completed 01/13/2023 025 by Zaida Musa RN Outcome: Met Goal: Decrease in number of episodes of urinary incontinence 01/13/2023 0300 by Zaida Musa RN Outcome: Completed 01/13/2023258 by Zaida Musa RN Outcome: Met [id number] Note* Plan of Care - Zaida Musa RN - 01/12/2023 3:34 AM EST Problem: Actual or potential alteration in health Goal: Absence of healthcare acquired conditions Outcome: Met Goal: Knowledge of Interdisciplinary Plan of Care Outcome: Met Goal: Knowledge of Enviroment Outcome: Met Problem: Pressure Ulcer - Risk of Goal: Absence of pressure ulcer Outcome: Met Problem: Pain Goal: Manage acute pain Outcome: Met Goal: Manage chronic pain Outcome: Met Goal: Reduced pain sensation Outcome: Met Goal: Achievement of comfort function goal Outcome: Met Problem: Falls, Risk of Goal: Absence of falls Outcome: Met Problem: Stroke - Ischemic - Required Education Goal: Knowledge of care transition plan Outcome: Met Problem: Aspiration, Risk of Goal: Absence of aspiration Outcome: Met Goal: Safe intake of nutrition, fluids, and medications Outcome: Met Problem: Activity Intolerance Goal: Improved activity tolerance Outcome: Met Goal: Able to participate in acute rehabilitation Outcome: Met Goal: Knowledge of prescribed activities Outcome: Met Problem: Bleeding, Risk of Goal: Absence of impaired coagulation signs and symptoms Outcome: Met Problem: Cognitive-Perceptual Pattern - Impaired Goal: Able to achieve maximum level of cognitive ability Outcome: Met Problem: Mobility - Impaired Goal: Able to achieve maximum mobility level Outcome: Met Problem: Mood - Altered Goal: Mood stable Outcome: Met Problem: Self-care Deficit Goal: Able to perform ADL Outcome: Met Goal: Able to communicate ADL needs Outcome: Met Goal: Able to use self-care assistive device appropriately Outcome: Met Problem: Tissue Perfusion, Cerebral - Altered Goal: Absence of continued neurologic deterioration signs and symptoms Outcome: Met Problem: Urinary Elimination - Impaired Goal: Urinary elimination within specified parameters Outcome: Met Goal: Absence of postvoid residual Outcome: Met Goal: Absence of urinary incontinence Outcome: Met Goal: Decrease in number of episodes of urinary incontinence Outcome: Met Problem: Venous Thromboembolism, Risk of Goal: Absence of venous thromboembolism Outcome: Met Problem: Verbal Communication - Impaired Goal: Effective communication Outcome: Met Problem: Plan for Discharge Goal: Knowledge of discharge plan and instructions Outcome: Met Goal: Knowledge of personal stroke risk factors Outcome: Met Goal: Knowledge of stroke warning signs Outcome: Met [id number] Note* Plan of Care - Renea Goyal RN - 01/10/2023 6:30 AM EST Problem: Actual or potential alteration in health Goal: Absence of healthcare acquired conditions Outcome: Met Goal: Knowledge of Enviroment Outcome: Met Problem: Pressure Ulcer - Risk of Goal: Absence of pressure ulcer Outcome: Met Problem: Pain Goal: Manage acute pain Outcome: Met Goal: Manage chronic pain Outcome: Met Goal: Reduced pain sensation Outcome: Met Problem: Falls, Risk of Goal: Absence of falls Outcome: Met Problem: Bleeding, Risk of Goal: Absence of impaired coagulation signs and symptoms Outcome: Met Problem: Mood - Altered Goal: Mood stable Outcome: Met [id number] Note* Quick Note - Alison Thomas RN - 01/09/2023 1:[address] Ruffin approve for patient to do stroke prevention follow up in [place] at [facility] [address] [facility] [id number] Patient follow up appointment scheduled with Christina Branham CNP on Wednesday 2:30 PM, with arrival time of 2:00 PM. Appointment details added to AVS and Neurology Navigator met with patient to review details for follow up appointment. Neurology Navigator reviewed with patient the Understanding Stroke booklet including the signs and symptoms of stroke, when to call 911 for stroke symptoms, importance of follow-up appointment with listed providers and individual stroke risk factors of atrial fibrillation, diabetes mellitus, hyperlipidemia, hypertension, and obstructive sleep apnea. Written material provided, appointment scheduling questions answered. Please contact Neurology Navigator at [phone] if you have additional questions or needs. [id number] Consult note* Delilah Seals, PT - 01/09/2023 8:02 AM EST Physical Therapy PHYSICAL THERAPY EVALUATION and TREATMENT NOTE PHYSICAL THERAPY EVALUATION Skilled Therapy Needs After Discharge Anticipate Resolution of Current Assessment Limitations Including: Mechanical Barriers Are Skilled Therapy Services Needed After Discharge: Yes Intensity of Skilled Therapy: 5 to 7 days per week Anticipated Duration of Skilled Therapy: Duration 10 - 30 days DME Recommendation: To be determined at next level of care Rehab Potential: Good, For goals Outcomes Measures Prior Function - Basic Mobility Raw Score: 24 Points Prior Function - Basic Mobility % Impaired: 0% AM-PAC Basic Mobility Raw Score: 15 Points AM-PAC Basic Mobility % Impaired: 50.40% Physical Therapy Assessment History: The following factors influence the patient's participation in the PT plan of care: Personal Factors: Decreased Insight, Age, Social Barriers Environmental Factors: Bedroom/bathroom on 2nd floor, Multi-level home, Steps to enter home The following co-morbidities (from this admission or prior) influence the patient's participation in this plan of care: Pt admitted with R MCA with TPA administered, CTH 01/07 with evolution of R MCACVA with petechial hemorrhage. PMH: HTN, CAD, A-Fib s/p Cardioversion/MAZE/LA clipping, CHF, COPD, IDDM type 2, hypothyroidism, GERD, Arthritis, CVA Number of History elements affecting this patient's PT plan of care: 3 or more Examination of Body Systems: The patient presents with: Musculoskeletal impairments: Strength, Functional Endurance Neurologic Impairments: Coordination, Balance, Cognition Cardiopulmonary Impairments: Activity Tolerance. These impairments result in limitations of Gait, Functional Transfers, Stair- Climbing, Activity Tolerance, Insight, Safety Awareness. These impairments result in restrictions of Household mobility, Community mobility, Leisure activities. Number of Body Systems elements affecting this patient's PT plan of care: 4 or more. Clinical Presentation: The patient's clinical presentation for this PT evaluation is evolving with changing characteristics as evidenced by current PT documentation. Activity Tolerance Activity Tolerance: Tolerates 30 min acitivty with multiple rests Therapy Precautions Orthotic Devices: No General Rehab Precautions: Fall risk Balance Assessment Sitting Balance - Static: Supervision Sitting Balance - Dynamic: Stand by assist, Contact guard assist Loss of Balance - Sitting Dynamic: posterior, intermittent Standing Balance - Static: Contact guard assist, without UE support Documentation Nurse - Standing Static: (gait belt) Standing Balance - Dynamic: Minimal assist Documentation Nurse - Standing Dynamic: (gait belt) Bed Mobility Supine to Sit: Stand by assist (with allowance for increased time) Sit to Supine: (Not observed, seated OOB x 1 alarm at end of session) Documentation Nurse: bedrails, patient slide sheet / friction-reducing device Transfers Sit to Stand: Minimal assist Stand Pivot Transfers: Minimal assist Documentation Nurse: (gait belt) Gait/Locomotion Gait Assistance: Minimal assist Assistive Device: (gait belt) Distance: 25 Feet Pattern: decreased moses (steps per minute), L impaired heel strike, decreased arm swing, decreased trunk rotation, L decreased stance time (decreased L foot clearance during swing phase) Home Living Obtained Home Living and PLOF info from: Patient Lives With: Spouse Type of Home: House Home Layout: Two level, Bed and full bath upstairs, 1/2 bath on main level Steps to enter home: Yes Rails to enter home: 2 rails Number of stairs to enter home: 5 Bathroom Shower/Tub: Walk-in shower Bathroom Toilet: Standard Bathroom Equipment: Shower chair, Grab bars in shower Mobility Equipment: Wheeled walker, Cane Additional Objective Details - Home Livin) AD used at baseline Prior Level of Function Level of Bishop - Transfers/Ambulation/Mobility: Independent with functional transfers, Independent with household ambulation, Independent with community ambulation Level of Bishop - ADLs: Independent Level of Bishop - Homemaking: Independent Driving: Patient drives PHYSICAL THERAPY TREATMENT NOTE Total Treatment Time (Total Session Time): 51 Minutes Total Timed Code Treatment Minutes: 23 Minutes Neuromuscular Reeducation Sitting Balance Treatment: weight shifting anterior, maintaining midline orientation, postural re-education Skilled Intervention Provided: verbal cues, tactile cues For: midline orientation, postural alignment, weight shifting, balance recovery Resulting in: improved activity tolerance, improved performance, improved safety, increased insightinto deficits Standing Balance Treatment: weight shifting left, weight shifting right, maintaining midline, postural re-education, marching in place (Marshall Balance Scale- see flowsheet for details) Skilled Intervention Provided: verbal cues, tactile cues, patient education, neuromuscular re-education For: LE positioning, balance recovery, weight shifting Resulting in: improved performance, improved safety, increased insight into deficits Gait Training Skilled Intervention Provided: verbal cues, tactile cues, patient education, provided step by step instructions For: gait sequence, gait technique Resulting in: decreased gait impairments, increased upright tolerance for functional tasks, increased insight into deficits, improved awareness of gait impairments Therapeutic Activities Bed Mobility Skilled Intervention Provided: verbal cues, tactile cues, provided step by step instructions, patient education For: safe use of bedrails and/or equipment, safety during functional tasks, self-monitoring during activity, sequencing of movement Resulting in: improved performance, improved safety Transfers Skilled Intervention Provided: verbal cues, tactile cues, patient education, provided step by step instructions For: LE positioning, UE positioning, safety during functional tasks, controlled descent Resulting in: improved performance, improved safety Additional Treatment Details Upon evaluation, Pt presents with impaired LUE/LLE coordination, impaired dynamic standing balance and mild gait dysfunction. Pt scored 38/56 on Marshall Balance Scale correlating with high risk of fallsin patients who have had a stroke. Pt educated on deficits noted during Eval and Marshall Balance scoreand correlation to high risk of falls. Pt will grealty benefit from continued intense PT at DC to promote increased safety and independence with all mobility and functional activities prior to DC home. Past Medical History: Diagnosis Date Arthritis Back pain CHF (congestive heart failure) (HCC) COPD (chronic obstructive pulmonary disease) (HCC) Coronary artery disease Diabetes mellitus (HCC) Diabetes mellitus, type 2 (HCC) Disease of thyroid gland GERD (gastroesophageal reflux disease) Hernia of abdominal wall Hyperlipidemia Hypertension Myocardial infarction (HCC) Sleep apnea, obstructive refuses to use c-pap Stroke (HCC) Past Surgical History: Procedure Laterality Date CABG AVR W/ MAZE Bilateral 08/12/2021 Procedure: CORONARY ARTERY BYPASS GRAFT TIMES THREE (krueger-lad, svg-d1, svg- drca)WITH ENDOVEIN HARVEST, Aortic valve replacement (27mm Paul Inspiris), full LA MAZE ([employer] RFA box, RFA HEATHER, cryoRA caval and RAA line), LEFT ATRIAL APPENDAGE LIGATION (40mm AtriCLIP), TRANSESOPHAGEAL ECHOCARDIOGRAM; Surgeon: Luis Beasley MD; Location: [facility]; Service: Cardiothoracic CARDIAC CATHETERIZATION CARDIAC CATHETERIZATION Bilateral 07/01/2021 No intervention, right radial CARDIAC CATHETERIZATION N/A 07/01/2021 Procedure: Coronary Angiogram; Surgeon: Shmuel Villalpando MD; Location: [facility]; Service: Cardiovascular CARDIAC CATHETERIZATION N/A 07/01/2021 Procedure: Right Heart Cath; Surgeon: Shmuel Villalpando MD; Location: [facility]; Service: Cardiovascular CARDIAC CATHETERIZATION N/A 07/01/2021 Procedure: Left Ventriculogram; Surgeon: Shmuel Villalpando MD; Location: [facility]; Service: Cardiovascular CARDIAC CATHETERIZATION N/A 07/01/2021 Procedure: Left Heart Cath; Surgeon: Shmuel Villalpando MD; Location: [facility]; Service: Cardiovascular cataracts removed Bilateral CORONARY STENT PLACEMENT EP - INTERVENTION N/A 08/24/2021 Procedure: Cardioversion/CTA; Surgeon: Abhishek Lauren MD; Location: [facility] EP [facility]; Service: Cardiovascular HERNIA REPAIR W/HYDROCELE Right For complete objective data, detailed plan of care and patient education refer to: PT Evaluation flowsheet, PT Evaluation and Treatment flowsheet, PT Treatment flowsheet, patient Plan of Care, Plan of Care progress note, and Patient Education. This note stands as the current Discharge Summary upon patient discharge from the hospital or completion of Physical Therapy Plan. [id number] Consult note* Delilah Saels, PT - 01/09/2023 8:02 AM EST Physical Therapy PHYSICAL THERAPY EVALUATION and TREATMENT NOTE PHYSICAL THERAPY EVALUATION Skilled Therapy Needs After Discharge Anticipate Resolution of Current Assessment Limitations Including: Mechanical Barriers Are Skilled Therapy Services Needed After Discharge: Yes Intensity of Skilled Therapy: 5 to 7 days per week Anticipated Duration of Skilled Therapy: Duration 10 - 30 days DME Recommendation: To be determined at next level of care Rehab Potential: Good, For goals Outcomes Measures Prior Function - Basic Mobility Raw Score: 24 Points Prior Function - Basic Mobility % Impaired: 0% AM-PAC Basic Mobility Raw Score: 15 Points AM-PAC Basic Mobility % Impaired: 50.40% Physical Therapy Assessment History: The following factors influence the patient's participation in the PT plan of care: Personal Factors: Decreased Insight, Age, Social Barriers Environmental Factors: Bedroom/bathroom on 2nd floor, Multi-level home, Steps to enter home The following co-morbidities (from this admission or prior) influence the patient's participation in this plan of care: Pt admitted with R MCA with TPA administered, CTH 01/07 with evolution of R MCACVA with petechial hemorrhage. PMH: HTN, CAD, A-Fib s/p Cardioversion/MAZE/LA clipping, CHF, COPD, IDDM type 2, hypothyroidism, GERD, Arthritis, CVA Number of History elements affecting this patient's PT plan of care: 3 or more Examination of Body Systems: The patient presents with: Musculoskeletal impairments: Strength, Functional Endurance Neurologic Impairments: Coordination, Balance, Cognition Cardiopulmonary Impairments: Activity Tolerance. These impairments result in limitations of Gait, Functional Transfers, Stair- Climbing, Activity Tolerance, Insight, Safety Awareness. These impairments result in restrictions of Household mobility, Community mobility, Leisure activities. Number of Body Systems elements affecting this patient's PT plan of care: 4 or more. Clinical Presentation: The patient's clinical presentation for this PT evaluation is evolving with changing characteristics as evidenced by current PT documentation. Activity Tolerance Activity Tolerance: Tolerates 30 min acitivty with multiple rests Therapy Precautions Orthotic Devices: No General Rehab Precautions: Fall risk Balance Assessment Sitting Balance - Static: Supervision Sitting Balance - Dynamic: Stand by assist, Contact guard assist Loss of Balance - Sitting Dynamic: posterior, intermittent Standing Balance - Static: Contact guard assist, without UE support Documentation Nurse - Standing Static: (gait belt) Standing Balance - Dynamic: Minimal assist Documentation Nurse - Standing Dynamic: (gait belt) Bed Mobility Supine to Sit: Stand by assist (with allowance for increased time) Sit to Supine: (Not observed, seated OOB x 1 alarm at end of session) Documentation Nurse: bedrails, patient slide sheet / friction-reducing device Transfers Sit to Stand: Minimal assist Stand Pivot Transfers: Minimal assist Documentation Nurse: (gait belt) Gait/Locomotion Gait Assistance: Minimal assist Assistive Device: (gait belt) Distance: 25 Feet Pattern: decreased moses (steps per minute), L impaired heel strike, decreased arm swing, decreased trunk rotation, L decreased stance time (decreased L foot clearance during swing phase) Home Living Obtained Home Living and PLOF info from: Patient Lives With: Spouse Type of Home: House Home Layout: Two level, Bed and full bath upstairs, 1/2 bath on main level Steps to enter home: Yes Rails to enter home: 2 rails Number of stairs to enter home: 5 Bathroom Shower/Tub: Walk-in shower Bathroom Toilet: Standard Bathroom Equipment: Shower chair, Grab bars in shower Mobility Equipment: Wheeled walker, Cane Additional Objective Details - Home Livin) AD used at baseline Prior Level of Function Level of Bishop - Transfers/Ambulation/Mobility: Independent with functional transfers, Independent with household ambulation, Independent with community ambulation Level of Bishop - ADLs: Independent Level of Bishop - Homemaking: Independent Driving: Patient drives PHYSICAL THERAPY TREATMENT NOTE Total Treatment Time (Total Session Time): 51 Minutes Total Timed Code Treatment Minutes: 23 Minutes Neuromuscular Reeducation Sitting Balance Treatment: weight shifting anterior, maintaining midline orientation, postural re-education Skilled Intervention Provided: verbal cues, tactile cues For: midline orientation, postural alignment, weight shifting, balance recovery Resulting in: improved activity tolerance, improved performance, improved safety, increased insightinto deficits Standing Balance Treatment: weight shifting left, weight shifting right, maintaining midline, postural re-education, marching in place (Marshall Balance Scale- see flowsheet for details) Skilled Intervention Provided: verbal cues, tactile cues, patient education, neuromuscular re-education For: LE positioning, balance recovery, weight shifting Resulting in: improved performance, improved safety, increased insight into deficits Gait Training Skilled Intervention Provided: verbal cues, tactile cues, patient education, provided step by step instructions For: gait sequence, gait technique Resulting in: decreased gait impairments, increased upright tolerance for functional tasks, increased insight into deficits, improved awareness of gait impairments Therapeutic Activities Bed Mobility Skilled Intervention Provided: verbal cues, tactile cues, provided step by step instructions, patient education For: safe use of bedrails and/or equipment, safety during functional tasks, self-monitoring during activity, sequencing of movement Resulting in: improved performance, improved safety Transfers Skilled Intervention Provided: verbal cues, tactile cues, patient education, provided step by step instructions For: LE positioning, UE positioning, safety during functional tasks, controlled descent Resulting in: improved performance, improved safety Additional Treatment Details Upon evaluation, Pt presents with impaired LUE/LLE coordination, impaired dynamic standing balance and mild gait dysfunction. Pt scored 38/56 on Marshall Balance Scale correlating with high risk of fallsin patients who have had a stroke. Pt educated on deficits noted during Eval and Marshall Balance scoreand correlation to high risk of falls. Pt will grealty benefit from continued intense PT at DC to promote increased safety and independence with all mobility and functional activities prior to DC home. Past Medical History: Diagnosis Date Arthritis Back pain CHF (congestive heart failure) (HCC) COPD (chronic obstructive pulmonary disease) (HCC) Coronary artery disease Diabetes mellitus (HCC) Diabetes mellitus, type 2 (HCC) Disease of thyroid gland GERD (gastroesophageal reflux disease) Hernia of abdominal wall Hyperlipidemia Hypertension Myocardial infarction (HCC) Sleep apnea, obstructive refuses to use c-pap Stroke (HCC) Past Surgical History: Procedure Laterality Date CABG AVR W/ MAZE Bilateral 08/12/2021 Procedure: CORONARY ARTERY BYPASS GRAFT TIMES THREE (krueger-lad, svg-d1, svg- drca)WITH ENDOVEIN HARVEST, Aortic valve replacement (27mm Paul Inspiris), full LA MAZE (Encompass RFA box, RFA HEATHER, cryoRA caval and RAA line), LEFT ATRIAL APPENDAGE LIGATION (40mm AtriCLIP), TRANSESOPHAGEAL ECHOCARDIOGRAM; Surgeon: Luis Beasley MD; Location: [facility]; Service: Cardiothoracic CARDIAC CATHETERIZATION CARDIAC CATHETERIZATION Bilateral 07/01/2021 No intervention, right radial CARDIAC CATHETERIZATION N/A 07/01/2021 Procedure: Coronary Angiogram; Surgeon: Shmuel Villalpando MD; Location: [facility]; Service: Cardiovascular CARDIAC CATHETERIZATION N/A 07/01/2021 Procedure: Right Heart Cath; Surgeon: Shmuel Villalpando MD; Location: [facility]; Service: Cardiovascular CARDIAC CATHETERIZATION N/A 07/01/2021 Procedure: Left Ventriculogram; Surgeon: Shmuel Villalpando MD; Location: [facility]; Service: Cardiovascular CARDIAC CATHETERIZATION N/A 07/01/2021 Procedure: Left Heart Cath; Surgeon: Shmuel Villalpando MD; Location: [facility]; Service: Cardiovascular cataracts removed Bilateral CORONARY STENT PLACEMENT EP - INTERVENTION N/A 08/24/2021 Procedure: Cardioversion/CTA; Surgeon: Abhishek Lauren MD; Location: [facility]; Service: Cardiovascular HERNIA REPAIR W/HYDROCELE Right For complete objective data, detailed plan of care and patient education refer to: PT Evaluation flowsheet, PT Evaluation and Treatment flowsheet, PT Treatment flowsheet, patient Plan of Care, Plan of Care progress note, and Patient Education. This note stands as the current Discharge Summary upon patient discharge from the hospital or completion of Physical Therapy Plan. * Panchito Hdez CNP - 01/07/2023 2:17 PM ESTAssociated Order(s): IP CONSULT TO HOSPITALIST [facility] Consult Note 01/07/23 Kevin White [id number] Assessment/Plan: Kevin White is a 82 y.o. male with a history of HTN, CAD, AFIB s/p cardioversion/MAZE/LA clipping, CHF, COPD, IDDM type 2, hypothyroidism who presented to [facility] 01/06/2023 from [facility] with left sided weakness and garbled speech, s/p OL tPA. Admitted to [facility] & found to have acute R MCA CVA. Imaging at [facility] showed no LVO. [facility] consulted for eventual transfer of care. Acute R MCA CVA s/p TPA: CTA H/N 01/06/23 with distal R MCA occlusion s/p TPA. CT brain perfusion after TPA with improved perfusion, noted hypoplastic L V4. CTH 01/07/23 with evolution of acute R MCACVA with petechial hemorrhage, monitor for mental status changes. LDL 66, A1c 6.6 on 01/06/23. TTE 01/06/23 with normal EF 59%, well-seated AVR, LA dilation. Stroke neuro followed. PT/OT/ST, neurochecks. ASA until 01/11/23 at which point eliquis will start. 24h goal SBP was <180/105, now with slow reduction to <130/80. Dysphagia: pureed foods, thin liquid per ST, following. HTN: home ACEi, lasix, norvasc. CAD: s/p CABG x3 in 07/[address] Beasley ([facility]). Taken off AC in 04/2022 after discussion with his laboratory secretary Dr. Villalpando, unclear if put on ASA at that time (not on home med list). Home statin ordered. Thrombocytopenia: baseline plts low-normal ~150, have dropped during prior CABG 2021 with neg PF4 then. Plts 91 on 01/07/23. Monitor. AFIB: s/p cardioversions 02/2022 & 08/2021. Followed with EP RACIEL Umm. Admit EKG NSR with 1st degree AVB, PVCs, PACs, QTc 481. S/p MAZE/LA clipping 07/23/21. Continued home Tikosyn. Prolonged QTc: 481 as noted, intermittently prolonged at baseline. Avoid further prolonging meds asable. CKD: unclear stage, since 02/2022 sCR has ranged 1.3-1.4. Renal US 01/06/23 neg. Stable. Monitor. Chronic HFpEF: TTE noted. Lasix continued. COPD: No admit AE. IDDM2: held home oral. SSI DVT Prophylaxis: eliquis to begin 01/11/23 Thank you for allowing us to participate in the care of your patient. Do not hesitate to contact uswith questions. Before 6 pm, please contact the provider listed in the treatment team. After 6 pm, please contact [phone] for any questions or concerns. Current living situation: home Expected disposition: TBD, OT recs 5-7d, PT recs pending Estimated discharge date: TBD Chief Complaint / Reason for Consult: Eventual transfer of care History of Present Illness: Kevin White is a 82 y.o. male with a history of HTN, CAD, AFIB s/p cardioversion/MAZE/LA clipping, CHF, COPD, IDDM type 2, hypothyroidism who presented to [facility] 01/06/2023 from [facility] with left sided weakness and garbled speech, s/p [facility] tPA. Admitted to [facility]. Imaging at [facility] showed no LVO. [facility] consulted for eventual transfer of care. No chest pain, SOB, vomiting, or other pain. Working on getting stronger. Today I personally did a review of recommendations from consultants &/or other medical providers, and have summarized my findings the assessment and plan. Today I also reviewed the patient's mostrecent labs; findings noted in the lab review section of this document. ROS: 10 systems were reviewed and negative, except as noted above. Past Medical, Surgical, Social, Family History: Past Medical History: Diagnosis Date Arthritis Back pain CHF (congestive heart failure) (HCC) COPD (chronic obstructive pulmonary disease) (HCC) Coronary artery disease Diabetes mellitus (HCC) Diabetes mellitus, type 2 (HCC) Disease of thyroid gland GERD (gastroesophageal reflux disease) Hernia of abdominal wall Hyperlipidemia Hypertension Myocardial infarction (HCC) Sleep apnea, obstructive refuses to use c-pap Stroke (HCC) Past Surgical History: Procedure Laterality Date CABG AVR W/ MAZE Bilateral 08/12/2021 Procedure: CORONARY ARTERY BYPASS GRAFT TIMES THREE (krueger-lad, svg-d1, svg- drca)WITH ENDOVEIN HARVEST, Aortic valve replacement (27mm Paul Inspiris), full LA MAZE (Encompass RFA box, RFA HEATHER, cryoRA caval and RAA line), LEFT ATRIAL APPENDAGE LIGATION (40mm AtriCLIP), TRANSESOPHAGEAL ECHOCARDIOGRAM; Surgeon: Luis Beasley MD; Location: [facility]; Service: Cardiothoracic CARDIAC CATHETERIZATION CARDIAC CATHETERIZATION Bilateral 07/01/2021 No intervention, right radial CARDIAC CATHETERIZATION N/A 07/01/2021 Procedure: Coronary Angiogram; Surgeon: Shmuel Villalpando MD; Location: [facility]; Service: Cardiovascular CARDIAC CATHETERIZATION N/A 07/01/2021 Procedure: Right Heart Cath; Surgeon: Shmuel Villalpando MD; Location: [facility]; Service: Cardiovascular CARDIAC CATHETERIZATION N/A 07/01/2021 Procedure: Left Ventriculogram; Surgeon: Shmuel Villalpando MD; Location: [facility]; Service: Cardiovascular CARDIAC CATHETERIZATION N/A 07/01/2021 Procedure: Left Heart Cath; Surgeon: Shmuel Villalpando MD; Location: [facility]; Service: Cardiovascular cataracts removed Bilateral CORONARY STENT PLACEMENT EP - INTERVENTION N/A 08/24/2021 Procedure: Cardioversion/CTA; Surgeon: Abhishek Lauren MD; Location: [facility]; Service: Cardiovascular HERNIA REPAIR W/HYDROCELE Right Social History Socioeconomic History Marital status: Spouse name: Antonella Occupational History Employer: OTHER- Occupation: Retired from [employer] Tobacco Use Smoking status: Never Smokeless tobacco: Never Vaping Use Vaping Use: Never used Substance and Sexual Activity Alcohol use: Not Currently Drug use: Never Family History Problem Relation Age of Onset Heart disease Father Home Medications: Outpatient Medications as of 01/07/2023 Medication Sig amLODIPine (NORVASC) 10 MG tablet Take 1 (one) tablet (10 mg total) by mouth daily Start: 08/25/21.(Patient taking differently: Take 0.5 (one-half) tablet (5 mg total) by mouth daily .) cyanocobalamin (B-12) 1000 MCG tablet Take 1 (one) tablet (1,000 mcg total) by mouth daily . dofetilide (TIKOSYN) 250 MCG capsule Take 1 (one) capsule (250 mcg total) by mouth every 12 (twelve) hours . esomeprazole (NEXIUM) 40 MG capsule Take 1 (one) capsule (40 mg total) by mouth every morning before breakfast . furosemide (LASIX) 20 MG tablet Take 2 (two) tablets (40 mg total) by mouth daily . insulin glargine (Lantus Solostar U-100 Insulin) 100 unit/mL (3 mL) InPn Inject 22 (twenty two) Units under the skin daily with dinner . levothyroxine (SYNTHROID, LEVOTHROID) 175 MCG tablet Take 1 (one) tablet (175 mcg total) by mouth daily . lisinopriL (PRINIVIL,ZESTRIL) 10 MG tablet Take 1 (one) tablet (10 mg total) by mouth daily with lunch Start: 08/25/21. rosuvastatin (CRESTOR) 20 MG tablet Take 1 (one) tablet (20 mg total) by mouth nightly . tamsulosin (FLOMAX) 0.4 mg capsule Take 1 (one) capsule (0.4 mg total) by mouth daily . therapeutic multivitamin (THERAGRAN) tablet Take 1 (one) tablet by mouth daily . traZODone (DESYREL) 50 MG tablet Take 0.5 (one-half) tablet (25 mg total) by mouth nightly as needed . Physical Exam: BP (!) 149/73 (BP Location: Left arm, Patient Position: Lying) Pulse 69 Temp 97.5 F (36.4 C) (Oral) Resp (!) 20 Ht 6' 1 Wt 86.4 kg (190 lb 7.6 oz) SpO2 94% BMI 25.13 kg/m General: NAD Eyes: gaze conjugate, tracks ENT: MMM Cardiovascular: Regular rate. Respiratory: Clear to auscultation, no wheezes or accessory muscle use Gastrointestinal: Soft, non tender, positive bowel sounds Mskt/extremities: Major joints without edema Skin: Warm, dry. Neuro: Alert, L facial droop, oriented x3, LS 4/5, RS 5/5 Psych: Appropriate Labs, Imaging, and Studies reviewed: Lab Results Component Value Date GLUCOSE 118 (H) 01/07/2023 CALCIUM 8.6 01/07/2023 NA 142 01/07/2023 K 4.7 01/07/2023 CL 110 (H) 01/07/2023 BUN 17 01/07/2023 CREATININE 1.08 01/07/2023 Lab Results Component Value Date WBC 6.62 01/07/2023 HGB 12.1 (L) 01/07/2023 HCT 35.3 (L) 01/07/2023 MCV 93.9 01/07/2023 PLT 91 (L) 01/07/2023 Lab Results Component Value Date ALT 21 01/06/2023 AST 20 01/06/2023 ALKPHOS 79 01/06/2023 BILITOT 0.4 01/06/2023 Lab Results Component Value Date INR 1.1 01/06/2023 Associated attestation - Ju Bradley MD - 01/07/2023 8:00 PM EST I have personally performed a xinm-ey-xeuc diagnostic evaluation of this patient on 01/07/2023. Patient seen independently. Labs and imaging personally reviewed. I personally completed a substantive exam as detailed below. Agree with plan as detailed in the note below by Pnachito Hdez CNP with the following additions: 82 y.o. male hx CKD3, HTN, HLD, CAD, PAFib (s/p cardioversion/MAZE/LA clipping), CHF, COPD, IDDM2, presented to [facility] 01/06/2023 from [place] w/ L sided weakness, garbled speech, received tPA at [facility] for acute R MCA CVA, admitted to [facility]. [facility] consulted 01/07/23 for eventual transfer of care. On 01/07/23: CTH continued evolution of area of infarction R posterior frontal and temporal lobe, and findings consistent w/ petechial hemorrhage. Tele tracing NSR 64 bpm. PLT 91. Acute Right MCA CVA: s/p TPA at [facility]. CTA H/N 01/06/23 distal R MCA occlusion. CTA brain 01/06/23 after TPA w/ improved perfusion. CTH 01/07/23 as above. Neuro signed off 01/07/23. PT/OT/ACADEMIC SERVICES PROFESSIONAL/SW. Follow tele, neurochecks. Continue home meds Norvasc, Lasix, ACEi, statin. Started new ASA until 01/11/23, at which point Eliquis will start, and stop ASA. Acute Thrombocytopenia: baseline PLT's low-normal ~150. PLT's 91 on 01/07/23. Monitor closely with new blood thinners. Physical Exam: BP (!) 167/80 (BP Location: Left arm, Patient Position: Lying) Pulse 64 Temp 97.3 F (36.3 C) (Oral) Resp 15 Ht 6' 1 Wt 86.4 kg (190 lb 7.6 oz) SpO2 95% BMI 25.13 kg/m General: No acute distress Eyes: EOMI, no scleral icterus ENT: neck supple, no mass, full range of motion Cardiovascular: Regular rate and rhythm. Respiratory: Clear to auscultation bilaterally, no respiratory distress Gastrointestinal: Soft, non-tender, non-distended Genitourinary: no suprapubic tenderness Musculoskeletal: No edema in bilateral lower extremities; No large joint deformities. Skin: warm, dry, without rash Neuro: Alert, oriented, L facial droop, LUE 4/5, while LLE/RUE/RLE all normal 5/5 Psych: Mood appropriate, affect appropriate to clinical situation * Jamil eD Anda, OT - 01/07/2023 12:55 PM EST Occupational Therapy OCCUPATIONAL THERAPY EVALUATION AND TREATMENT NOTE OCCUPATIONAL THERAPY EVALUATION Skilled Therapy Needs After Discharge Anticipate Resolution of Current Assessment Limitations Including: Mechanical Barriers Are Skilled Therapy Services Needed After Discharge: Yes Intensity of Skilled Therapy: 5 to 7 days per week Anticipated Duration of Skilled Therapy: Duration 7 - 10 days Outcomes Measures Prior Function Daily Activity Raw Score: 24 Prior Function Daily Activity % Impaired: 0% AM-PAC Daily Activity Raw Score: 15 AM-PAC Daily Activity % Impaired: 56.46% Occupational Therapy Assessment The patient's current functional participation deficits are feeding, grooming, UE dressing, LE dressing, bathing, toileting, home management, meal preparation, functional mobility. This reduced independence will limit their life roles of premorbid level individual, spouse. The patient's co morbidities do significantly affect patient performance in the above activities and roles. The performance deficits are a result of neurological impairment(s) in generalized debility, left, hemibody includingstrength, balance, acitvity tolerance, insight, safety, and (none). The patient's home setup is a barrier, family / caregiver support is a retail salesperson for return to prior level of function. The patient's compliance is a retail salesperson, awareness of own capacity and performance is a barrier to return to prior level of function. During the assessment, significant modification of task was required and multiple treatment optionswere identified in the plan of care. This consultation required extensive review of the medical and therapy history. Activity Tolerance Activity Tolerance: Tolerates 10 - 20 min activity with multiple rests Therapy Precautions Orthotic Devices: No Weight Bearing Status: WFL General Rehab Precautions: Fall risk Cognition Overall Cognitive Status: Within Functional Limits Arousal/Alertness: Appropriate responses to stimuli Orientation Level: Oriented X4, With cues (for specific date) Executive functioning: Min impairment, Insight, Processing delay Safety Judgment: Decreased awareness of need for safety Problem Solving: Assistance required to generate solutions Attention: Attends to quiet environment Hearing Status: WFL Social Interaction: Cooperative, Expressive deficit Comments: Pt cooperative/participative. Pleasant. No family present. Follows all 1 step commands appropriately. ADL Feeding: Minimal assist, Set-up Lower Body Dressing: Maximal assist Functional Mobility: Minimal assist (short household distance in hallway environment) Bed Mobility Supine to Sit: Contact guard assist, Head of bed elevated Sit to Supine: (not observed, seated in bedside chair w/nurse call light and chair alarm on at end of session) Functional Transfers Sit to Stand: Contact guard assist (x2 trials from EOB) Home Living Obtained Home Living and PLOF info from: Patient Lives With: Spouse Type of Home: House Home Layout: Two level, Bed and full bath upstairs, 1/2 bath on main level Steps to enter home: Yes Rails to enter home: 2 rails Number of stairs to enter home: 5 Bathroom Shower/Tub: Walk-in shower Bathroom Toilet: Standard Bathroom Equipment: Shower chair, Grab bars in shower Mobility Equipment: Wheeled walker, Cane Additional Objective Details - Home Livin) AD used at baseline Prior Level of Function Level of Bishop - Transfers/Ambulation/Mobility: Independent with functional transfers, Independent with household ambulation, Independent with community ambulation Level of Bishop - ADLs: Independent Level of Bishop - Homemaking: Independent Driving: Patient drives OCCUPATIONAL THERAPY TREATMENT NOTE Total Treatment Time (Total Session Time): 25 Minutes Total Timed Code Treatment Minutes: 10 Minutes Self-Care / ADL Feeding - Skilled Intervention Provided: verbal cues, [id number] instructions, facilitation Feeding - For: efficient movement, task simplification/modification Feeding - Resulting In: improved participation in ADL task, improved performance with ADLs, improved safety Lower Body Dressing - Skilled Intervention Provided: verbal cues, tactile cues, facilitation, [id number] instructions Lower Body Dressing - For: LE management, efficient movement, task simplification/modification, sequencing of movement Lower Body Dressing - Resulting In: improved functional independence, improved participation in ADLtask, improved performance with ADLs Functional Mobility - Skilled Intervention Provided: verbal cues, tactile cues, provided step by step instructions, patient education, facilitation Functional Mobility - For: efficient movement, fall prevention, midline orientation, postural alignment, proper body mechanics, safety during functional task(s) Functional Mobility - Resulting In: improved functional independence, increased initiation/participation in mobility task(s), improved performance, improved safety, decreasing fall risk Therapeutic Activities Bed Mobility Skilled Intervention Provided: verbal cues, tactile cues, provided step by step instructions, patient education, facilitation For: efficient movement, postural alignment, proper body mechanics, safety during functional task(s) Resulting In: improved functional independence, improved performance Functional Transfers Skilled Intervention Provided: verbal cues, tactile cues, provided step by step instructions, patient education For: efficient movement, postural alignment, proper body mechanics, safety during functional task(s) Resulting In: improved functional independence, improved performance, improved safety Past Medical History: Diagnosis Date Arthritis Back pain CHF (congestive heart failure) (HCC) COPD (chronic obstructive pulmonary disease) (HCC) Coronary artery disease Diabetes mellitus (HCC) Diabetes mellitus, type 2 (HCC) Disease of thyroid gland GERD (gastroesophageal reflux disease) Hernia of abdominal wall Hyperlipidemia Hypertension Myocardial infarction (HCC) Sleep apnea, obstructive refuses to use c-pap Stroke ([facility]) Past Surgical History: Procedure Laterality Date CABG AVR W/ MAZE Bilateral 08/12/2021 Procedure: CORONARY ARTERY BYPASS GRAFT TIMES THREE (krueger-lad, svg-d1, svg- drca)WITH ENDOVEIN HARVEST, Aortic valve replacement (27mm Paul Inspiris), full LA MAZE (Encompass RFA box, RFA HEATHER, cryoRA caval and RAA line), LEFT ATRIAL APPENDAGE LIGATION (40mm AtriCLIP), TRANSESOPHAGEAL ECHOCARDIOGRAM; Surgeon: Luis Beasley MD; Location: [facility]; Service: Cardiothoracic CARDIAC CATHETERIZATION CARDIAC CATHETERIZATION Bilateral 07/01/2021 No intervention, right radial CARDIAC CATHETERIZATION N/A 07/01/2021 Procedure: Coronary Angiogram; Surgeon: Shmuel Villalpando MD; Location: [facility]; Service: Cardiovascular CARDIAC CATHETERIZATION N/A 07/01/2021 Procedure: Right Heart Cath; Surgeon: Shmuel Villalpando MD; Location: [facility]; Service: Cardiovascular CARDIAC CATHETERIZATION N/A 07/01/2021 Procedure: Left Ventriculogram; Surgeon: Shmuel Villalpando MD; Location: [facility]; Service: Cardiovascular CARDIAC CATHETERIZATION N/A 07/01/2021 Procedure: Left Heart Cath; Surgeon: Shmuel Villalpando MD; Location: [facility]; Service: Cardiovascular cataracts removed Bilateral CORONARY STENT PLACEMENT EP - INTERVENTION N/A 08/24/2021 Procedure: Cardioversion/CTA; Surgeon: Abhishek Lauren MD; Location: [facility] EP LAB; Service: Cardiovascular HERNIA REPAIR W/HYDROCELE Right For complete objective data, detailed plan of care and patient education refer to: OT Evaluation flowsheet, OT Evaluation and Treatment flowsheet, OT Treatment flowsheet, patient Plan of Care, Plan of Care progress note, and Patient Education. This note stands as the current Discharge Summary upon patient discharge from the hospital or completion of Occupational Therapy Plan of Care. * Cami Vaz LSW - 01/06/2023 11:16 AM ESTAssociated Order(s): IP CONSULT TO CARE MANAGEMENT Care Management Consult Note Date: 01/06/2023 Time: 11:39 AM Patient Name: Kevin White Date of : 1940 Reason for Consult: Transition of Care Discharge Plan: Pending medical progression and therapy recs. Discharging Transportation Plan: Discharge Plan Status: CC Consulted- stroke alert from [facility] ED Consult received and chart reviewed. Per ED notes, pt presents to [facility] as a transfer from [facility] ED due to stroke alert. Pt's PMH includes, arthritis, back pain, CHF, COPD (HCC), coronary artery disease, Diabetes mellitus, GERD, HTN, Sleep Apnea (refuses to use c-pap) and stroke (for more see attending note) Pt is A&Ox3 (person, place and time with cues and choices). Pt has ACP docs on file. POA/LNOK and Medical-Decision Maker: Anamaria White (Spouse, Power of Att) [phone] (H) [phone] (M) Initial and Holistic Assessment completed with pt's spouse Anamaria. Results are reflected in narrative and flowsheets below. Pt's main supports are: spouse,family. Pt lives with his spouse and oldest son Ludin in a single story home with 8 short steps to enter the home. At baseline, the pt typicallydoes not use an assistive device to ambulate. Current HME/DME includes: wheeled walker, cane. Pt does not wear oxygen at baseline. Pt has no reported history of therapy. Address: [address] [place] [address] PCP: Moi Gibson MD; P#: [phone] Insurance: [employer] MANAGED MEDICARE/[employer] [facility] ADVANTAGE CHOICE PPO Pt with therapy recs pending. Pt/family instructed that [facility] will continue to follow as further needs arise and assist with safe discharge planning as able. Assessment and Background Information: Living Arrangements: Spouse/significant other Support Systems: Spouse/significant other Assistance Needed: n/a Type of Residence: Private residence Prior to Admission Home Care Services: No Holistic Assessment Medication adherence problem:: No History of falls in last 6 months:: (!) Yes Family aware of the patient's advance care planning wishes:: Yes Do you have any cultural/spiritual connections or beliefs that would impact how we deliver your care?: No Chronic pain:: (!) Yes Location of chronic pain:: Back * Steve Ruffin MD - 01/06/2023 11:15 AM ESTAssociated Order(s): IP CONSULT TO NEUROLOGY I saw and evaluated this patient today. Please see attestation to stroke response consult note. * Fatoumata Patten SLP - 01/06/2023 8:48 AM EST Speech Pathology General Cognition / Communication Eval Note Auditory Comprehension Severity ratin-90% (Mild) Expressive Language Severity ratin-90% (Mild), 50-75% (Moderate) Motor Speech Severity ratin-75% (Moderate) Cognition Severity ratin-50% (Severe) Factors for returning to Prior Level of Function: Factors for Returning to Prior Level of Function Body Structure and Function: Neurologic impairment Explain Impairments: R MCA CVA Activities and Participation: Swallowing limitation Explain Limitations: suspect dysphagia Environmental Factors: Home situation Explain Environmental Factors: from home Personal Factors: Awareness of own capacity and performance Explain Personal Factors: decreased Skilled therapy needs: Skilled Therapy Needs: Are Skilled Therapy Services Needed After Discharge: Yes Functional Limitations: dysphagia, communication deficits Intensity of Skilled Therapy: 5 to 7 days per week Anticipated Duration of Skilled Therapy: Duration 10 - 30 days Prior function: Prior Function Reason for Referral: Stroke / neuro Primary Language: Solomon Islander Employment Status: Retired Education Level: High school grad or equivalent Living Situation: With others Prior Speech Deficit: No known previous deficits Prior Language Deficit: No known previous deficits Prior Cognitive Deficit: No known previous deficits Baseline Assessment Subjective Impression: Alert, Cooperative, Pleasant Mood, Aphasic Respiratory Status: Room air Oral motor: Oral/Motor Oral Motor Impression-Severity Scale: Moderate Labial ROM: Reduced left Labial Symmetry at Rest: Abnormal symmetry left Labial Strength: Reduced Facial ROM: Reduced left Facial Symmetry at Rest: Left lower paresis Auditory Comprehension: Auditory Comp Impression-Severity Scale: 75-90% (Mild) Commands: Exceptions to WFL One Step Basic Commands: No Impairment Two Step Basic Commands: 75-90% (Mild) Yes/No Questions: Within Functional Limits Conversational Speech: Exceptions to WFL Simple Conversation: 75-90% (Mild) Hearing: Hard of hearing/hearing concerns Reading Comprehension: Reading Comp Impression-Severity: Requires further assessment Expressive Language: Expressive Language Impression-Severity: 75-90% (Mild), 50-75% (Moderate) Primary Mode of Expression: Verbal, Basic conversation level Naming: Exceptions to WFL Confrontational: 75-90% (Mild) [place] Divergent: 50-75% (Moderate) Narrative: Exceptions to WFL Conversation: 75-90% (Mild), 50-75% (Moderate) Motor Speech: Motor Speech Impression Severity: 50-75% (Moderate) Speech Intelligibility: Exceptions to WFL Word: 75-90% (Mild) Sentence: 50-75% (Moderate) Dysarthria Characteristics: Imprecise articulation, Poor breath support for speech, Low intensity Recommended Motor speech strategies: Increase volume, Slow speech rate, Stress mccloud words, Over-articulation, Schlater utterances Cognitive-Communication: Speech Cognition Impression-Severity: 25-50% (Severe) Orientation Level: Oriented to person, Disoriented to time, Disoriented to situation, Oriented to place, With choices Memory: Unable to assess Verbal Problem Solving: Exceptions to WFL Simple Functional Tasks: 50-75% (Moderate) Safety/Judgement: Exceptions to WFL Behavioral Observations: bed alarm, fall risk Insight: Decreased awareness of impairment, Decreased insight into impact of injury/deficits Task Initiation: Delayed initiation Flexibility of Thought: Reduced flexibility Pragmatics: No overt deficits Patient O-Log (Orientation Log) Score - Cut off score 25 or better on two separate administrations: Orientation-Log Orientation-log: Yes City: [address]: 3 Name of [facility]: 1 Month: 3 Date: 2 Year: 2 Day of Week: 2 Clock Time: 3 Etiology / Event: 1 Pathology Deficits: 1 Orientation Log Total Score (out of 30): 18 Orientation Log Impression - ACADEMIC SERVICES PROFESSIONAL: Will continue the O-Log based on the score today. Repeat Orientation-Log: Yes Patient Cog-Log (Cognitive Log) Score - Cut off score 25 or better: Cognitive-Log Cognitive-log: No Variance - Cognitive Log: Unable to administer test due to cognitive or communication deficits ACADEMIC SERVICES PROFESSIONAL Caregiver Readiness: ACADEMIC SERVICES PROFESSIONAL Caregiver Readiness Working toward discharge home: Yes ACADEMIC SERVICES PROFESSIONAL Caregiver Training: Caregiver not available Speech Plan: Further acute Speech Therapy services indicated: Yes Role of ST Discussed: With patient Risk/Benefits of ST Discussed: With patient Patient Goal for Treatment: Advance to oral diet Rehab Potential: Good Further Recommendations: MBS Past Medical History: Diagnosis Date Arthritis Back pain CHF (congestive heart failure) (HCC) COPD (chronic obstructive pulmonary disease) (HCC) Coronary artery disease Diabetes mellitus (HCC) Diabetes mellitus, type 2 (HCC) Disease of thyroid gland GERD (gastroesophageal reflux disease) Hernia of abdominal wall Hyperlipidemia Hypertension Myocardial infarction (HCC) Sleep apnea, obstructive refuses to use c-pap Stroke (HCC) Past Surgical History: Procedure Laterality Date CABG AVR W/ MAZE Bilateral 08/12/2021 Procedure: CORONARY ARTERY BYPASS GRAFT TIMES THREE (krueger-lad, svg-d1, svg- drca)WITH ENDOVEIN HARVEST, Aortic valve replacement (27mm Paul Inspiris), full LA MAZE (Encompass RFA box, RFA HEATHER, cryoRA caval and RAA line), LEFT ATRIAL APPENDAGE LIGATION (40mm AtriCLIP), TRANSESOPHAGEAL ECHOCARDIOGRAM; Surgeon: Luis Beasley MD; Location: [facility]; Service: Cardiothoracic CARDIAC CATHETERIZATION CARDIAC CATHETERIZATION Bilateral 07/01/2021 No intervention, right radial CARDIAC CATHETERIZATION N/A 07/01/2021 Procedure: Coronary Angiogram; Surgeon: Shmuel Villalpando MD; Location: [facility]; Service: Cardiovascular CARDIAC CATHETERIZATION N/A 07/01/2021 Procedure: Right Heart Cath; Surgeon: Shmuel Villalpando MD; Location: [facility]; Service: Cardiovascular CARDIAC CATHETERIZATION N/A 07/01/2021 Procedure: Left Ventriculogram; Surgeon: Shmuel Villalpando MD; Location: [facility]; Service: Cardiovascular CARDIAC CATHETERIZATION N/A 07/01/2021 Procedure: Left Heart Cath; Surgeon: Shmuel Villalpando MD; Location: [facility]; Service: Cardiovascular cataracts removed Bilateral CORONARY STENT PLACEMENT EP - INTERVENTION N/A 08/24/2021 Procedure: Cardioversion/CTA; Surgeon: Abhishek Lauren MD; Location: [facility] EP [facility]; Service: Cardiovascular HERNIA REPAIR W/HYDROCELE Right Speech Pathology General Cognition / Communication Treatment Note Total Treatment Time (Total Session Time): 30 Minutes Skilled Interventions and Response to Interventions: Auditory Comprehension: Skilled intervention/treatment - Commands: Min verbal cues, Min visual cues, Patient education/training Patient Response to Intervention - Commands: Return demonstration independently Skilled intervention/treatment - Conv Speech: Min verbal cues, Patient education/training Patient Response to Intervention - Conv Speech: Return demonstration only in presence of cues Expressive Language: Skilled intervention/treatment - Naming: Mod verbal cues, Patient education/training Patient Response to Intervention - Naming: Return demonstration only in presence of cues Skilled intervention/treatment - Narrative: Mod verbal cues, Patient education/training Patient Response to Intervention - Narrative: Return demonstration only in presence of cues Motor Speech: Skilled Intervention/treatment: Mod verbal cues, Patient education/training Patient Response to Intervention: Neutral response to intervention For complete objective data, detailed plan of care, and education refer to: Speech Comm/Cog Eval flow sheet, as well as patient Plan of Care and Education documentation. This note stands as the current Discharge Summary upon patient discharge from the hospital or completion of Speech Pathology Plan of Care * Fatoumata Patten SLP - 01/06/2023 8:34 AM EST Speech Pathology Bedside Swallow Evaluation Recommendations: Further Eval Rxs: MBS NPO Recommendations: No trial feed, Until re-assess, Except ice chips following oral care, Except medication with puree Postures: Sit as upright as possible for all oral intake Medication Presentation: Crushed in puree Amount of Supervision: Nursing staff supervision, Physical assistance required, Constant Treatment Techniques: Therapeutic trial feedings with ACADEMIC SERVICES PROFESSIONAL only Further Recommendations: Oral care TID, Perform/Repeat instrumental assessment prior to diet advancement Discharge Recommendations: Skilled Therapy Needs: Are Skilled Therapy Services Needed After Discharge: Yes Functional Limitations: dysphagia, communication deficits Intensity of Skilled Therapy: 5 to 7 days per week Anticipated Duration of Skilled Therapy: Duration 10 - 30 days Prior Function: Reason for Referral: Stroke / neuro Prior Swallow Deficit: No known previous deficits Diet Prior to BSE: NPO Primary Language: Solomon Islander Baseline Assessment: Subjective Impression: Alert, Cooperative, Pleasant Mood, Aphasic Respiratory Status: Room air Self-Feeding Barriers: Impaired for self-feeding, Physical Patient Positioning: Upright in bed Secretion Management: Adequate Volitional Swallow: Present Oral Motor: Oral Motor Impression-Severity Scale: Moderate Labial ROM: Reduced left Labial Symmetry at Rest: Abnormal symmetry left Labial Strength: Reduced Facial ROM: Reduced left Facial Symmetry at Rest: Left lower paresis Voice: Breath Support: WFL Vocal Quality: Weak Vocal Intensity: Mildly decreased, Moderately decreased Consistencies Assessed: CONSISTENCY PRESENTATION ORAL (SIGNS / SYMPTOMS) PHARYNGEAL (SIGNS / SYMPTOMS) ICE Spoon, ACADEMIC SERVICES PROFESSIONAL fed Within functional limits Within Functional Limits THIN Cup, Straw, ACADEMIC SERVICES PROFESSIONAL fed Spillage Left Suspect delayed swallow, Suspect decreased laryngeal elevation, Cough - delayed, Wet vocal quality PUREE ACADEMIC SERVICES PROFESSIONAL fed, Spoon Within functional limits Within Functional Limits Impressions-Severity Level: Oral Severity Scale: Moderate Pharyngeal Severity Scale: Suspect impaired Factors for Returning to PLOF: Body Structure and Function: Neurologic impairment Explain Impairments: R MCA CVA Activities and Participation: Swallowing limitation Explain Limitations: suspect dysphagia Environmental Factors: Home situation Explain Environmental Factors: from home Personal Factors: Awareness of own capacity and performance Explain Personal Factors: decreased ACADEMIC SERVICES PROFESSIONAL Caregiver Readiness: ACADEMIC SERVICES PROFESSIONAL Caregiver Readiness Working toward discharge home: Yes ACADEMIC SERVICES PROFESSIONAL Caregiver Training: Caregiver not available Speech Plan: Further acute Speech Therapy services indicated: Yes Role of ST Discussed: With patient Risk/Benefits of ST Discussed: With patient Patient Goal for Treatment: Advance to oral diet Rehab Potential: Good Further Recommendations: MBS Speech Pathology Bedside Swallow Treatment Note Total Treatment Time (Total Session Time): 30 Minutes Skilled Interventions and Response to Interventions: BSE Skilled Intervention Patient education / training Oral Care verbalized comprehension of presented information Risk of Aspiration neutral response to intervention BSE/MBS/FEES neutral response to intervention, increased insight into deficits For complete objective data, detailed plan of care, and education refer to: Speech Bedside Swallow Evaluation flow sheet, as well as patient Plan of Care and Education documentation. This note stands as the current Discharge Summary upon patient discharge from the hospital or completion of Speech Pathology Plan of Care. * Bia Ramires MSW LSW - 01/06/2023 4:41 AM ESTAssociated Order(s): ED CONSULT TO MEDICAL - TICKET WORKER ORDER TAKERS SUPERVISOR STROKE ALERT NOTE Date: 01/06/2023 Time: 4:41 AM Patient Name: Kevin White Date of : 1940 Sex: Male Admitted: 01/06/2023 4:38 AM PATIENT INFORMATION: Patient into ED from [facility]. Patient information obtained from [employer]. FAMILY NOTIFICATION: Per medic, patient's spouse will be coming to [facility] later this morning. Spouse is Anamaria White (P: [phone]). ADDITIONAL INFORMATION: SHARRI will assist as needed. * Vanda Ramos CNP - 01/06/2023 4:16 AM EST Stroke Team RACIEL Initial Triage Note [facility] 01/06/2023 Vanda Ramos CNP [facility] Patient: Kevin White Date of : 1940 (82 y.o. male) Referring Provider: Refer to consult order in electronic medical record PCP: Moi Gibson MD ASSESSMENT: 82 y.o. male with history of 82 y.o. male with history of HTN, HLD, NAJMA, DM, and Afib no longer on AC after cardioversion and LA clipping > 1 year ago. [facility] with a right MCA stroke syndrome, NIHSS 15. [facility] imaging with distal right MCA occlusion. Patient treated with IV alteplase, then transported to [facility] for thrombectomy evaluation. CTA/P at [facility] showing recanalization of right M2 occlusion. Exam improved upon arrival to [facility], NIHSS 7. BP 158/71 PLAN: R MCA Stroke Etiology: Uncertain IV thrombolytic treatment with alteplase (tPA), bolus documented at 0203. Not a candidate for YOVANY due to lack of vascular target. Previous noted right M2 occlusion recanalized on repeat CTA imaging. Attending Service will need to electronically order a Neurology consult for ongoing inpatient Neurology care. Disposition: To be determined by ED Attending, NCC Attending and YOVANY Attending collaboration. Admission Order Set: To be completed by ED Attending, NCC Attending and YOVANY Attending collaboration. Other Order Sets: Acute Ischemic Stroke s/p Thrombolytic/Vascular Intervention orders completed. Testing: CT head 18-30 hr post procedure safety scan timed for 2100 on 01/06 Echo Labs: A1c, Lipid panel (Fasting) Anti-thrombotic: NONE for now. NO anti-platelet, pharmacologic DVT prophylaxis or anticoagulation x24 hours post procedure. Anti-lipid Agent: Lipitor (atorvastatin) 40 mg (substitute for home dose Crestor 20 mg) BP goal: BP goal: Less than 180/105. Glucose Goal: Normoglycemia/ A1c less than 6.5. Attending Service to manage. Tobacco: Counseled to not smoke/use tobacco. Attending Service to manage. Therapy: PT, OT evaluation. ST evaluation for swallow and speech/language/cognition. DVT Prophylaxis: SCDs and TEDs can be started immediately. NO pharmacologic DVT prophylaxis x 24 hours post procedure. Admitted with these risk variables:Cerebral Infarction NIHSS = 7. Please see assessment and plan for further details. Answered questions and rediscussed plan at length with Patient. Discussed and formulated plan with collaborating neurologist, Dr. Baltazar. Discussed plan with other teams' providers, specifically ED Attending, Dr. Arreaga. Critical Care Time Statement: I spent a total of at least 30 minutes providing critical care to this patient, either in the patient's room or on the patient's hospital unit. Refer to HPI, assessment and plan for relevant details. DIAGNOSTIC TESTING SUMMARY: Resulted Testing: (MRI/CT/XR, EEG, EMG, CSF, Cardiac, Labs) I independently reviewed the CT images and agree with the interpretation(s) with the following comments: [facility] CT head: Hypoattenuation within the right M2 segment, suspicion for thrombus. [facility] CTA head/neck: Distal right MCA superior division occlusion. Dominant right vertebral artery with mod-severe stenosis throughout V1-V2, and V4 segments. Left vertebral artery diffusely hypoplastic. Left V4 segment occlusion with faint contrast seen in the left PICA. Calcified plaque to bilateral carotid bifurcations, left > right. Approximately 40-50% within the left carotid bifurcation. [facility] CT head: Subtle hypodense area involving the right llamas radiate. Previous seen hyperdensity within the distal R MCA branch not as conspicuous. CTA brain perfusion: Recanalization of previous noted right MCA occlusion. Perfusion imaging without defect. Lab Results Component Value Date HGBA1C 6.9 (H) 03/09/2022 SUBJECTIVE: Chief Complaint/Reason for Consult: R MCA Stroke Informant(s): Patient, Care Team/Chart History of Present Illness: Kevin White is a 82 y.o. male with past medical history of HTN, HLD, NAJMA, DM, and Afib no longer on AC after cardioversion and LA clipping > 1 year ago. He presented to [facility] on 01/06/2023 as a transfer from [facility] with a right MCA stroke syndrome. LKW approximately 12AM this morning, (01/06). About 30 minutes he went into the restroom when his heard him fall. She discovered him just outside of the restroom, on his knees, confused, with left sided weakness. Denied hitting his head or LOC. EMS was called, he was taken to [facility] ED where he was evaluated via tele-stroke network by Neurologist, Dr. Baltazar. Presentation consistent with R MCA stroke syndrome, NIHSS 15. BP 177/88, glucose 152. After discussion with patient and , the decision was made to treat with IV thrombolytics. [facility] imaging showing distal right MCA occlusion.Patient STAT transfer to [facility] for thrombectomy consideration. Upon arrival to [facility], neurological exam significantly improved, NIHSS 7. Patient alert, oriented to himself, age, , and situation. Continued left facial asymmetry, left arm drift but does not hit bed, moderate dysarthria, mild-mod aphasia, and sensory deficit to LUE. BP 168/73. Patient denies headache or nausea. Repeat imaging without LVO. Patient being admitted for post thrombolytic care and further stroke workup. Times: Last known well (date & time): 0000, 01/06 Stroke Alert called: [id number] Stroke Team RACIEL at bedside: CREATIVE INTERN Patient arrival: 0438 Treatments: See A&P Review of Systems: All systems reviewed and negative except pertinent positives and negatives documented in the History of Present Illness (HPI). History: Past Medical History: Diagnosis Date Arthritis Back pain CHF (congestive heart failure) (HCC) COPD (chronic obstructive pulmonary disease) (HCC) Coronary artery disease Diabetes mellitus (HCC) Diabetes mellitus, type 2 (HCC) Disease of thyroid gland GERD (gastroesophageal reflux disease) Hernia of abdominal wall Hyperlipidemia Hypertension Myocardial infarction (HCC) Sleep apnea, obstructive refuses to use c-pap Stroke (HCC) Past Surgical History: Procedure Laterality Date CABG AVR W/ MAZE Bilateral 08/12/2021 Procedure: CORONARY ARTERY BYPASS GRAFT TIMES THREE (krueger-lad, svg-d1, svg- drca)WITH ENDOVEIN HARVEST, Aortic valve replacement (27mm Paul Inspiris), full LA MAZE (Encompass RFA box, RFA HEATHER, cryoRA caval and RAA line), LEFT ATRIAL APPENDAGE LIGATION (40mm AtriCLIP), TRANSESOPHAGEAL ECHOCARDIOGRAM; Surgeon: Luis Beasley MD; Location: [facility]; Service: Cardiothoracic CARDIAC CATHETERIZATION CARDIAC CATHETERIZATION Bilateral 07/01/2021 No intervention, right radial CARDIAC CATHETERIZATION N/A 07/01/2021 Procedure: Coronary Angiogram; Surgeon: Shmuel Villalpando MD; Location: [facility]; Service: Cardiovascular CARDIAC CATHETERIZATION N/A 07/01/2021 Procedure: Right Heart Cath; Surgeon: Shmuel Villalpando MD; Location: [facility]; Service: Cardiovascular CARDIAC CATHETERIZATION N/A 07/01/2021 Procedure: Left Ventriculogram; Surgeon: Shmuel Villalpando MD; Location: [facility]; Service: Cardiovascular CARDIAC CATHETERIZATION N/A 07/01/2021 Procedure: Left Heart Cath; Surgeon: Shmuel Villalpando MD; Location: [facility]; Service: Cardiovascular cataracts removed Bilateral CORONARY STENT PLACEMENT EP - INTERVENTION N/A 08/24/2021 Procedure: Cardioversion/CTA; Surgeon: Abhishek Lauren MD; Location: [facility] EP LAB; Service: Cardiovascular HERNIA REPAIR W/HYDROCELE Right Social History: reports that he has never smoked. He has never used smokeless tobacco. He reports that he does not currently use alcohol. He reports that he does not use drugs. Family History Problem Relation Age of Onset Heart disease Father Additional History Comments: I was unable to obtain and update history details due to patient's altered mental status and there was no knowledgeable family available. Allergies: Patient has no known allergies. HOME Medications: No outpatient medications have been marked as taking for the 01/06/23 encounter (Hospital Encounter). HOSPITAL Infusions: HOSPITAL Scheduled Medications: HOSPITAL PRN Medications: OBJECTIVE: Physical Examination: BP (!) 156/91 Pulse 77 Temp 98.1 F (36.7 C) (Oral) Resp 18 SpO2 98% MCCLOUD: DNFC: Does Not Follow Commands COOPER: Unable to Assess GENERAL: General Appearance: In NAD Eyes: See pupils below Ears: See hearing below Neck: Supple Respiratory Effort: Normal Extremities: No edema Skin: No rashes visualized MENTAL STATUS: Alertness, Attention Span & Concentration: Normal Language: Moderate aphasia Speech: Moderate dysarthria Orientation: Oriented to name, place, time (age), not oriented to date (month/year). Memory, Recent & Remote: Impaired Fund of Knowledge: Impaired CRANIAL NERVES: II - Visual Juarez: Normal II, III - Pupils: PERRL III, IV, - Eye Movements: EOMI, left eye ptosis. V - Facial Sensation: Normal VII - Face Symmetry and Strength: Left lower facial droop VIII - Hearing: Normal IX, X - Palate: Normal XI - Shoulder Shrug: DNFC XII - Tongue Protrusion: Left deviation COORDINATION & GROSS MOTOR: Abnormal Movements: None Coordination Ruqxke-ja-Xuyw: Left upper limb decreased in proportion to weakness Coordination: Ieau-Btgd-Mhyy:DNFC Rapid Alternating Movements: Decreased left upper limb Drift: Left upper limb Tone: Normal Bulk: Normal MOTOR - MUSCLE STRENGTH: Patient with difficulty understanding instructions for assessing knee extension/flexion Muscle Strength Right Left 5 Elbow Flexion (Biceps) 4+ 5 Elbow Extension (Triceps) 4- 5 Hip Flexion (Iliopsoas) 5 COOPER Knee Extension (Quads) COOPER COOPER Knee Flexion (Hamstrings) COOPER 5 Dorsiflexion (Anterior Tibialis) 4 MOTOR MCCLOUD: 5 Normal (Normal Power) 4 Mild Weakness (Movement against moderate resistance over a full range of motion) 3 Moderate Weakness (Movement against gravity over almost full range of motion) 2 Severe Weakness (Movement with gravity eliminated over almost full range of motion) 1 Trace Movement (flicker of contraction visible or palpable) 0 No Movement (No contraction visible or palpable) COOPER Unable to Assess SENSATION: Fine Touch: Decreased left upper extremity OTHER: Stroke Assessment - 01/06/23 0443 NIH Stroke Scale Level of Consciousness (1a.) 0 LOC Questions (1b.) 1 LOC Commands (1c.) 0 Best Gaze (2.) 0 Visual (3.) 0 Facial Palsy (4.) 2 Motor Arm, Left (5a.) 1 Motor Arm, Right (5b.) 0 Motor Leg, Left (6a.) 0 Motor Leg, Right (6b.) 0 Limb Ataxia (7.) 0 Sensory (8.) 1 Best Language (9.) 1 Dysarthria (10.) 1 Extinction and Inattention (11.) (Formerly Neglect) 0 Total 7 Modified Glidden Scale 0 No Symptoms at all 1 No Signficant disability despite symptoms. Able to carry out all usual duties and activities 2 Slight disability. Unable to carry out all previous activities, but able to look after own affairs without assistance 3 Moderate disability. Requiring some help, but able to walk without assistance 4 Moderately severe disability. Unable to walk without assistance. Unable to attend all bodily needs without assistance. 5 Severe disability. Bedridden, incontinent, and requiring constant nursing care and attention 6 Modified Cira Score: 0 Associated attestation - Steve Ruffin MD - 01/06/2023 11:15 AM EST I saw and evaluated this patient today with advanced practice provider and agree with the documented assessment and plan except/and as noted below. 82-year-old male is admitted to hospital after diagnosis of right MCA stroke that was treated with thrombolysis with alteplase. There was a right M2 occlusion that was identified but on subsequent scans this had recanalized. Patient reports significant improvement in symptoms but continues to be weak and numb on left side. Neurological examination demonstrates alert and oriented male with no aphasia. There is mild to moderately severe dysarthria. There is no gaze deviation there is no hemianopia. There is left facial weakness upper motor neuron type which is fairly prominent. Left hand shows minimal movements but he is able to hold left upper extremity against gravity without any significant drift. There is no drift in left leg. There is sensory loss to touch and pain on left. There is Babinski on left. There is no ataxia. NIH Stroke Scale Interval: Other (Comment) (NCC admission) Level of Consciousness (1a.): Alert, keenly responsive LOC Questions (1b.): Answers both questions correctly LOC Commands (1c.): Performs both tasks correctly Best Gaze (2.): Normal Visual (3.): No visual loss Facial Palsy (4.): Partial paralysis Motor Arm, Left (5a.): Drift Motor Arm, Right (5b.): No drift Motor Leg, Left (6a.): No drift Motor Leg, Right (6b.): No drift Limb Ataxia (7.): Absent Sensory (8.): Osva-am-jfwczbqa sensory loss, patient feels pinprick is less sharp or is dull on theaffected side, or there is a loss of superficial pain with pinprick, but patient is aware of being touched Best Language (9.): No aphasia Dysarthria (10.): Bqmb-om-guispiyk dysarthria, patient slurs at least some words and, at worst, canbe understood with some difficulty Extinction and Inattention (11.) (Formerly Neglect): No abnormality Total: 5 I reviewed the images of CT head, CT angiography of head neck and CT perfusion brain and agree withthe documented interpretation below. Assessment and plan 82-year-old male with acute ischemic right MCA territory stroke treated with IV thrombolysis Etiology: Cardioembolic related to atrial fibrillation although note is made of LA clipping. No antithrombotic agents for 24 hours after IV thrombolysis Obtain CT head at 18 to 30 hours post thrombectomy Despite the fact that this patient has had left atrial appendage occlusion, recurrent cardioembolicevent is suggestive of need for ongoing anticoagulation. Given the findings of his echocardiogram today, he will be a candidate for anticoagulation with DOAC such as Eliquis. Timing will be decided based on findings of follow-up CT head. Rest of the management strategies as below. We will follow documented in this [id number] Note* Plan of Care - Savannah Jaquez RN - 01/09/2023 12:17 AM EST Problem: Actual or potential alteration in health Goal: Absence of healthcare acquired conditions Outcome: Partially Met Goal: Knowledge of Interdisciplinary Plan of Care Outcome: Partially Met Goal: Knowledge of Enviroment Outcome: Partially Met Problem: Pressure Ulcer - Risk of Goal: Absence of pressure ulcer Outcome: Partially Met Problem: Pain Goal: Manage acute pain Outcome: Partially Met Goal: Manage chronic pain Outcome: Partially Met Goal: Reduced pain sensation Outcome: Partially Met Goal: Achievement of comfort function goal Outcome: Partially Met Problem: Falls, Risk of Goal: Absence of falls Outcome: Partially Met Problem: Stroke - Ischemic - Required Education Goal: Knowledge of care transition plan Outcome: Partially Met Problem: Aspiration, Risk of Goal: Absence of aspiration Outcome: Partially Met Goal: Safe intake of nutrition, fluids, and medications Outcome: Partially Met Problem: Activity Intolerance Goal: Improved activity tolerance Outcome: Partially Met Goal: Able to participate in acute rehabilitation Outcome: Partially Met Goal: Knowledge of prescribed activities Outcome: Partially Met Problem: Bleeding, Risk of Goal: Absence of impaired coagulation signs and symptoms Outcome: Partially Met Problem: Cognitive-Perceptual Pattern - Impaired Goal: Able to achieve maximum level of cognitive ability Outcome: Partially Met Problem: Mobility - Impaired Goal: Able to achieve maximum mobility level Outcome: Partially Met Problem: Mood - Altered Goal: Mood stable Outcome: Partially Met Problem: Self-care Deficit Goal: Able to perform ADL Outcome: Partially Met Goal: Able to communicate ADL needs Outcome: Partially Met Goal: Able to use self-care assistive device appropriately Outcome: Partially Met Problem: Tissue Perfusion, Cerebral - Altered Goal: Absence of continued neurologic deterioration signs and symptoms Outcome: Partially Met Problem: Urinary Elimination - Impaired Goal: Urinary elimination within specified parameters Outcome: Partially Met Goal: Absence of postvoid residual Outcome: Partially Met Goal: Absence of urinary incontinence Outcome: Partially Met Goal: Decrease in number of episodes of urinary incontinence Outcome: Partially Met Problem: Venous Thromboembolism, Risk of Goal: Absence of venous thromboembolism Outcome: Partially Met Problem: Verbal Communication - Impaired Goal: Effective communication Outcome: Partially Met Problem: Plan for Discharge Goal: Knowledge of discharge plan and instructions Outcome: Partially Met Goal: Knowledge of personal stroke risk factors Outcome: Partially Met Goal: Knowledge of stroke warning signs Outcome: Partially Met [id number] Note* CDI Query - Elier Mejia MD - 01/08/2023 10:23 AM EST Noted monitoring of creatinine. Clinical Indicators: NOTE: 01/05/23 Cr result from OSH 01/05/23 13:52 01/06/23 01:39 01/07/23 03:09 01/08/23 07:51 Creatinine 1.46 (H) 1.43 (H) 1.08 0.99 Transfer with Rt MCA Stroke (ischemic) s/p Alteplase at OSH Hospitalist Consult - since 02/2022 sCR has ranged 1.3-1.4 previously 0.9-1.2 - On admission sCR 1.43 - PMH includes CKD3 and HTN Please document the corresponding diagnosis reflective of the creatinine. Please include the present on admission status if applicable. For Example: AJAY, POA resolved Elevated creatinine is clinically undetermined Other (please specify) Unable to determine Thank you Ashley Salgado RN, CCDS Clinical Documentation Deposition Operator After business hours you may contact Janine Mac at [phone] (Weekdays until 10 PM and weekends 8 AM -10 PM) [id number] Consult note* Panchito Hdez CNP - 01/07/2023 2:17 PM ESTAssociated Order(s): IP CONSULT TO [facility]23 Kevin White 1940 [id number] Assessment/Plan: Kevin White is a 82 y.o. male with a history of HTN, CAD, AFIB s/p cardioversion/MAZE/LA clipping, CHF, COPD, IDDM type 2, hypothyroidism who presented to [facility] 01/06/2023 from [facility] with left sided weakness and garbled speech, s/p [facility] tPA. Admitted to [facility] & found to have acute R MCA CVA. Imaging at [facility] showed no LVO. [facility] consulted for eventual transfer of care. Acute R MCA CVA s/p TPA: CTA H/N 01/06/23 with distal R MCA occlusion s/p TPA. CT brain perfusion after TPA with improved perfusion, noted hypoplastic L V4. CTH 01/07/23 with evolution of acute R MCACVA with petechial hemorrhage, monitor for mental status changes. LDL 66, A1c 6.6 on 01/06/23. TTE 01/06/23 with normal EF 59%, well-seated AVR, LA dilation. Stroke neuro followed. PT/OT/ST, neurochecks. ASA until 01/11/23 at which point eliquis will start. 24h goal SBP was <180/105, now with slow reduction to <130/80. Dysphagia: pureed foods, thin liquid per ST, following. HTN: home ACEi, lasix, norvasc. CAD: s/p CABG x3 in 07/[address] Beasley ([facility]). Taken off AC in 04/2022 after discussion with his laboratory secretary Dr. Villalpando, unclear if put on ASA at that time (not on home med list). Home statin ordered. Thrombocytopenia: baseline plts low-normal ~150, have dropped during prior CABG 2021 with neg PF4 then. Plts 91 on 01/07/23. Monitor. AFIB: s/p cardioversions 02/2022 & 08/2021. Followed with EP RACIEL Umm. Admit EKG NSR with 1st degree AVB, PVCs, PACs, QTc 481. S/p MAZE/LA clipping 07/23/21. Continued home Tikosyn. Prolonged QTc: 481 as noted, intermittently prolonged at baseline. Avoid further prolonging meds asable. CKD: unclear stage, since 02/2022 sCR has ranged 1.3-1.4. Renal US 01/06/23 neg. Stable. Monitor. Chronic HFpEF: TTE noted. Lasix continued. COPD: No admit AE. IDDM2: held home oral. SSI DVT Prophylaxis: eliquis to begin 01/11/23 Thank you for allowing us to participate in the care of your patient. Do not hesitate to contact uswith questions. Before 6 pm, please contact the provider listed in the treatment team. After 6 pm, please contact [phone] for any questions or concerns. Current living situation: home Expected disposition: TBD, OT recs 5-7d, PT recs pending Estimated discharge date: TBD Chief Complaint / Reason for Consult: Eventual transfer of care History of Present Illness: Kevin White is a 82 y.o. male with a history of HTN, CAD, AFIB s/p cardioversion/MAZE/LA clipping, CHF, COPD, IDDM type 2, hypothyroidism who presented to [facility] 01/06/2023 from [facility] with left sided weakness and garbled speech, s/p [facility] tPA. Admitted to [facility]. Imaging at [facility] showed no LVO. [facility] consulted for eventual transfer of care. No chest pain, SOB, vomiting, or other pain. Working on getting stronger. Today I personally did a review of recommendations from consultants &/or other medical providers, and have summarized my findings the assessment and plan. Today I also reviewed the patient's mostrecent labs; findings noted in the lab review section of this document. ROS: 10 systems were reviewed and negative, except as noted above. Past Medical, Surgical, Social, Family History: Past Medical History: Diagnosis Date Arthritis Back pain CHF (congestive heart failure) (HCC) COPD (chronic obstructive pulmonary disease) (HCC) Coronary artery disease Diabetes mellitus (HCC) Diabetes mellitus, type 2 (HCC) Disease of thyroid gland GERD (gastroesophageal reflux disease) Hernia of abdominal wall Hyperlipidemia Hypertension Myocardial infarction (HCC) Sleep apnea, obstructive refuses to use c-pap Stroke (HCC) Past Surgical History: Procedure Laterality Date CABG AVR W/ MAZE Bilateral 08/12/2021 Procedure: CORONARY ARTERY BYPASS GRAFT TIMES THREE (krueger-lad, svg-d1, svg- drca)WITH ENDOVEIN HARVEST, Aortic valve replacement (27mm Paul Inspiris), full LA MAZE (Encompass RFA box, RFA HEATHER, cryoRA caval and RAA line), LEFT ATRIAL APPENDAGE LIGATION (40mm AtriCLIP), TRANSESOPHAGEAL ECHOCARDIOGRAM; Surgeon: Luis Beasley MD; Location: [facility]; Service: Cardiothoracic CARDIAC CATHETERIZATION CARDIAC CATHETERIZATION Bilateral 07/01/2021 No intervention, right radial CARDIAC CATHETERIZATION N/A 07/01/2021 Procedure: Coronary Angiogram; Surgeon: Shmuel Villalpando MD; Location: [facility]; Service: Cardiovascular CARDIAC CATHETERIZATION N/A 07/01/2021 Procedure: Right Heart Cath; Surgeon: Shmuel Villalpando MD; Location: [facility]; Service: Cardiovascular CARDIAC CATHETERIZATION N/A 07/01/2021 Procedure: Left Ventriculogram; Surgeon: Shmuel Villalpando MD; Location: [facility]; Service: Cardiovascular CARDIAC CATHETERIZATION N/A 07/01/2021 Procedure: Left Heart Cath; Surgeon: Shmuel Villalpando MD; Location: [facility]; Service: Cardiovascular cataracts removed Bilateral CORONARY STENT PLACEMENT EP - INTERVENTION N/A 08/24/2021 Procedure: Cardioversion/CTA; Surgeon: Abhishek Lauren MD; Location: [facility] EP LAB; Service: Cardiovascular HERNIA REPAIR W/HYDROCELE Right Social History Socioeconomic History Marital status: Spouse name: Antonella Occupational History Employer: OTHER- Occupation: Retired from [employer] Tobacco Use Smoking status: Never Smokeless tobacco: Never Vaping Use Vaping Use: Never used Substance and Sexual Activity Alcohol use: Not Currently Drug use: Never Family History Problem Relation Age of Onset Heart disease Father Home Medications: Outpatient Medications as of 01/07/2023 Medication Sig amLODIPine (NORVASC) 10 MG tablet Take 1 (one) tablet (10 mg total) by mouth daily Start: 08/25/21.(Patient taking differently: Take 0.5 (one-half) tablet (5 mg total) by mouth daily .) cyanocobalamin (B-12) 1000 MCG tablet Take 1 (one) tablet (1,000 mcg total) by mouth daily . dofetilide (TIKOSYN) 250 MCG capsule Take 1 (one) capsule (250 mcg total) by mouth every 12 (twelve) hours . esomeprazole (NEXIUM) 40 MG capsule Take 1 (one) capsule (40 mg total) by mouth every morning before breakfast . furosemide (LASIX) 20 MG tablet Take 2 (two) tablets (40 mg total) by mouth daily . insulin glargine (Lantus Solostar U-100 Insulin) 100 unit/mL (3 mL) InPn Inject 22 (twenty two) Units under the skin daily with dinner . levothyroxine (SYNTHROID, LEVOTHROID) 175 MCG tablet Take 1 (one) tablet (175 mcg total) by mouth daily . lisinopriL (PRINIVIL,ZESTRIL) 10 MG tablet Take 1 (one) tablet (10 mg total) by mouth daily with lunch Start: 08/25/21. rosuvastatin (CRESTOR) 20 MG tablet Take 1 (one) tablet (20 mg total) by mouth nightly . tamsulosin (FLOMAX) 0.4 mg capsule Take 1 (one) capsule (0.4 mg total) by mouth daily . therapeutic multivitamin (THERAGRAN) tablet Take 1 (one) tablet by mouth daily . traZODone (DESYREL) 50 MG tablet Take 0.5 (one-half) tablet (25 mg total) by mouth nightly as needed . Physical Exam: BP (!) 149/73 (BP Location: Left arm, Patient Position: Lying) Pulse 69 Temp 97.5 F (36.4 C) (Oral) Resp (!) 20 Ht 6' 1 Wt 86.4 kg (190 lb 7.6 oz) SpO2 94% BMI 25.13 kg/m General: NAD Eyes: gaze conjugate, tracks ENT: MMM Cardiovascular: Regular rate. Respiratory: Clear to auscultation, no wheezes or accessory muscle use Gastrointestinal: Soft, non tender, positive bowel sounds Mskt/extremities: Major joints without edema Skin: Warm, dry. Neuro: Alert, L facial droop, oriented x3, LS 4/5, RS 5/5 Psych: Appropriate Labs, Imaging, and Studies reviewed: Lab Results Component Value Date GLUCOSE 118 (H) 01/07/2023 CALCIUM 8.6 01/07/2023 NA 142 01/07/2023 K 4.7 01/07/2023 CL 110 (H) 01/07/2023 BUN 17 01/07/2023 CREATININE 1.08 01/07/2023 Lab Results Component Value Date WBC 6.62 01/07/2023 HGB 12.1 (L) 01/07/2023 HCT 35.3 (L) 01/07/2023 MCV 93.9 01/07/2023 PLT 91 (L) 01/07/2023 Lab Results Component Value Date ALT 21 01/06/2023 AST 20 01/06/2023 ALKPHOS 79 01/06/2023 BILITOT 0.4 01/06/2023 Lab Results Component Value Date INR 1.1 01/06/2023 Associated attestation - Ju Bradley MD - 01/07/2023 8:00 PM EST I have personally performed a hpre-lq-enjg diagnostic evaluation of this patient on 01/07/2023. Patient seen independently. Labs and imaging personally reviewed. I personally completed a substantive exam as detailed below. Agree with plan as detailed in the note below by Panchito Hdez CNP with the following additions: 82 y.o. male hx CKD3, HTN, HLD, CAD, PAFib (s/p cardioversion/MAZE/LA clipping), CHF, COPD, IDDM2, presented to [facility] 01/06/2023 from [place] w/ L sided weakness, garbled speech, received tPA at [facility] for acute R MCA CVA, admitted to [facility]. [facility] consulted 01/07/23 for eventual transfer of care. On 01/07/23: CTH continued evolution of area of infarction R posterior frontal and temporal lobe, and findings consistent w/ petechial hemorrhage. Tele tracing NSR 64 bpm. PLT 91. Acute Right MCA CVA: s/p TPA at [facility]. CTA H/N 01/06/23 distal R MCA occlusion. CTA brain 01/06/23 after TPA w/ improved perfusion. CTH 01/07/23 as above. Neuro signed off 01/07/23. PT/OT/ACADEMIC SERVICES PROFESSIONAL/SW. Follow tele, neurochecks. Continue home meds Norvasc, Lasix, ACEi, statin. Started new ASA until 01/11/23, at which point Eliquis will start, and stop ASA. Acute Thrombocytopenia: baseline PLT's low-normal ~150. PLT's 91 on 01/07/23. Monitor closely with new blood thinners. Physical Exam: BP (!) 167/80 (BP Location: Left arm, Patient Position: Lying) Pulse 64 Temp 97.3 F (36.3 C) (Oral) Resp 15 Ht 6' 1 Wt 86.4 kg (190 lb 7.6 oz) SpO2 95% BMI 25.13 kg/m General: No acute distress Eyes: EOMI, no scleral icterus ENT: neck supple, no mass, full range of motion Cardiovascular: Regular rate and rhythm. Respiratory: Clear to auscultation bilaterally, no respiratory distress Gastrointestinal: Soft, non-tender, non-distended Genitourinary: no suprapubic tenderness Musculoskeletal: No edema in bilateral lower extremities; No large joint deformities. Skin: warm, dry, without rash Neuro: Alert, oriented, L facial droop, LUE 4/5, while LLE/RUE/RLE all normal 5/5 Psych: Mood appropriate, affect appropriate to clinical situation [employer] Work Phone: [phone] 335-774311-23-2023 Consult note* Jamil De Anda, OT - 01/07/2023 12:55 PM EST Occupational Therapy OCCUPATIONAL THERAPY EVALUATION AND TREATMENT NOTE OCCUPATIONAL THERAPY EVALUATION Skilled Therapy Needs After Discharge Anticipate Resolution of Current Assessment Limitations Including: Mechanical Barriers Are Skilled Therapy Services Needed After Discharge: Yes Intensity of Skilled Therapy: 5 to 7 days per week Anticipated Duration of Skilled Therapy: Duration 7 - 10 days Outcomes Measures Prior Function Daily Activity Raw Score: 24 Prior Function Daily Activity % Impaired: 0% AM-PAC Daily Activity Raw Score: 15 AM-PAC Daily Activity % Impaired: 56.46% Occupational Therapy Assessment The patient's current functional participation deficits are feeding, grooming, UE dressing, LE dressing, bathing, toileting, home management, meal preparation, functional mobility. This reduced independence will limit their life roles of premorbid level individual, spouse. The patient's co morbidities do significantly affect patient performance in the above activities and roles. The performance deficits are a result of neurological impairment(s) in generalized debility, left, hemibody includingstrength, balance, acitvity tolerance, insight, safety, and (none). The patient's home setup is a barrier, family / caregiver support is a retail salesperson for return to prior level of function. The patient's compliance is a retail salesperson, awareness of own capacity and performance is a barrier to return to prior level of function. During the assessment, significant modification of task was required and multiple treatment optionswere identified in the plan of care. This consultation required extensive review of the medical and therapy history. Activity Tolerance Activity Tolerance: Tolerates 10 - 20 min activity with multiple rests Therapy Precautions Orthotic Devices: No Weight Bearing Status: [facility] General Rehab Precautions: Fall risk Cognition Overall Cognitive Status: Within Functional Limits Arousal/Alertness: Appropriate responses to stimuli Orientation Level: Oriented X4, With cues (for specific date) Executive functioning: Min impairment, Insight, Processing delay Safety Judgment: Decreased awareness of need for safety Problem Solving: Assistance required to generate solutions Attention: Attends to quiet environment Hearing Status: WFL Social Interaction: Cooperative, Expressive deficit Comments: Pt cooperative/participative. Pleasant. No family present. Follows all 1 step commands appropriately. ADL Feeding: Minimal assist, Set-up Lower Body Dressing: Maximal assist Functional Mobility: Minimal assist (short household distance in hallway environment) Bed Mobility Supine to Sit: Contact guard assist, Head of bed elevated Sit to Supine: (not observed, seated in bedside chair w/nurse call light and chair alarm on at end of session) Functional Transfers Sit to Stand: Contact guard assist (x2 trials from EOB) Home Living Obtained Home Living and PLOF info from: Patient Lives With: Spouse Type of Home: House Home Layout: Two level, Bed and full bath upstairs, 1/2 bath on main level Steps to enter home: Yes Rails to enter home: 2 rails Number of stairs to enter home: 5 Bathroom Shower/Tub: Walk-in shower Bathroom Toilet: Standard Bathroom Equipment: Shower chair, Grab bars in shower Mobility Equipment: Wheeled walker, Cane Additional Objective Details - Home Livin) AD used at baseline Prior Level of Function Level of Bishop - Transfers/Ambulation/Mobility: Independent with functional transfers, Independent with household ambulation, Independent with community ambulation Level of Bishop - ADLs: Independent Level of Bishop - Homemaking: Independent Driving: Patient drives OCCUPATIONAL THERAPY TREATMENT NOTE Total Treatment Time (Total Session Time): 25 Minutes Total Timed Code Treatment Minutes: 10 Minutes Self-Care / ADL Feeding - Skilled Intervention Provided: verbal cues, [id number] instructions, facilitation Feeding - For: efficient movement, task simplification/modification Feeding - Resulting In: improved participation in ADL task, improved performance with ADLs, improved safety Lower Body Dressing - Skilled Intervention Provided: verbal cues, tactile cues, facilitation, [id number] instructions Lower Body Dressing - For: LE management, efficient movement, task simplification/modification, sequencing of movement Lower Body Dressing - Resulting In: improved functional independence, improved participation in ADLtask, improved performance with ADLs Functional Mobility - Skilled Intervention Provided: verbal cues, tactile cues, provided step by step instructions, patient education, facilitation Functional Mobility - For: efficient movement, fall prevention, midline orientation, postural alignment, proper body mechanics, safety during functional task(s) Functional Mobility - Resulting In: improved functional independence, increased initiation/participation in mobility task(s), improved performance, improved safety, decreasing fall risk Therapeutic Activities Bed Mobility Skilled Intervention Provided: verbal cues, tactile cues, provided step by step instructions, patient education, facilitation For: efficient movement, postural alignment, proper body mechanics, safety during functional task(s) Resulting In: improved functional independence, improved performance Functional Transfers Skilled Intervention Provided: verbal cues, tactile cues, provided step by step instructions, patient education For: efficient movement, postural alignment, proper body mechanics, safety during functional task(s) Resulting In: improved functional independence, improved performance, improved safety Past Medical History: Diagnosis Date Arthritis Back pain CHF (congestive heart failure) ([facility]) COPD (chronic obstructive pulmonary disease) ([facility]) Coronary artery disease Diabetes mellitus ([facility]) Diabetes mellitus, type 2 ([facility]) Disease of thyroid gland GERD (gastroesophageal reflux disease) Hernia of abdominal wall Hyperlipidemia Hypertension Myocardial infarction ([facility]) Sleep apnea, obstructive refuses to use c-pap Stroke ([facility]) Past Surgical History: Procedure Laterality Date CABG AVR W/ MAZE Bilateral 08/12/2021 Procedure: CORONARY ARTERY BYPASS GRAFT TIMES THREE (krueger-lad, svg-d1, svg- drca)WITH ENDOVEIN HARVEST, Aortic valve replacement (27mm Paul Inspiris), full LA MAZE (Encompass RFA box, RFA HEATHER, cryoRA caval and RAA line), LEFT ATRIAL APPENDAGE LIGATION (40mm AtriCLIP), TRANSESOPHAGEAL ECHOCARDIOGRAM; Surgeon: Luis Beasley MD; Location: [facility] NEURO OR; Service: Cardiothoracic CARDIAC CATHETERIZATION CARDIAC CATHETERIZATION Bilateral 07/01/2021 No intervention, right radial CARDIAC CATHETERIZATION N/A 07/01/2021 Procedure: Coronary Angiogram; Surgeon: Shmuel Villalpando MD; Location: [facility]; Service: Cardiovascular CARDIAC CATHETERIZATION N/A 07/01/2021 Procedure: Right Heart Cath; Surgeon: Shmuel Villalpando MD; Location: [facility]; Service: Cardiovascular CARDIAC CATHETERIZATION N/A 07/01/2021 Procedure: Left Ventriculogram; Surgeon: Shmuel Villalpando MD; Location: [facility]; Service: Cardiovascular CARDIAC CATHETERIZATION N/A 07/01/2021 Procedure: Left Heart Cath; Surgeon: Shmuel Villalpando MD; Location: [facility]; Service: Cardiovascular cataracts removed Bilateral CORONARY STENT PLACEMENT EP - INTERVENTION N/A 08/24/2021 Procedure: Cardioversion/CTA; Surgeon: Abhishek Lauren MD; Location: [facility] EP LAB; Service: Cardiovascular HERNIA REPAIR W/HYDROCELE Right For complete objective data, detailed plan of care and patient education refer to: OT Evaluation flowsheet, OT Evaluation and Treatment flowsheet, OT Treatment flowsheet, patient Plan of Care, Plan of Care progress note, and Patient Education. This note stands as the current Discharge Summary upon patient discharge from the hospital or completion of Occupational Therapy Plan of Care. [id number] Note* Sign Off Note - Antonieta Palacio CNP - 01/07/2023 12:27 PM EST Neurology Neurovascular Sign-Off Diagnosis: Acute right MCA stroke Associated Large Vessel Lesion: None Neurovascular Etiology: AFib Risk Factor Labs: Lab Results Component Value Date LDLCALC 66 01/06/2023 Lab Results Component Value Date HGBA1C 6.6 (H) 01/06/2023 Procedures & Acute Interventions: Thrombolytic - tPA Demographics/Scores: Age & Sex: 82 y.o. male Ethnicity: Not or [* Zip: [id number] NIHSS Admission Total: 7 NIHSS at Sign Off Total: 5 [id number] Score: HTN = 1, Diabetes= 1, Stroke/Tia= 2, and Sex ( Female) =1 Support System: Family PENDING Procedures: None AFib surveillance at Discharge: None needed Blood pressure goals at Discharge: Less than 130/80; AVOID hypotension; Attending Service to manage Anti-thrombotic at Discharge: ASA 81 mg daily until 01/11/23 (once AC starts) Eliquis 5 mg BID to begin 01/11/23 Anti-hyperlipidemic at Discharge: Lipitor (atorvastatin) 40 mg Other treatments at Discharge: None Anticipated disposition at Discharge: Unknown at this time Follow-up Appointment: In [facility]. See Discharge Tab/AVS for details. Recall: If questions. If worsening neurologic exam. Non-Urgent Questions or Reconsultation ([facility]): Call Neurology space systems operations superintendent [phone] Urgent Questions: Use [facility] On-call Directory to contact Physician [place] [id number] Note* Quick Note - Sandi Vincent RN - 01/07/2023 10:40 AM EST Patient transferred out of unit to room 5517 with shoes, belt, long caro, flannel shirt, sweatshirt. Verified with second associate, Moses Borden RN [place] [id number] Note* [facility] IP Rehab - Erendira Chin PT - 01/06/2023 3:35 PM EST PHYSICAL THERAPY VISIT VARIANCE NOTE Attempted to see patient at this time, but unable secondary to: Awaiting Medical Clearance (comment) (Awaiting post 24 hour tPA protocol - tPA administered 01/06 at 2:03AM). Will follow up as appropriate. [place] [id number] Procedure note* Fatoumata Patten, SUSY - 01/06/2023 2:36 PM EST [facility] Speech Language Pathology Modified Barium Swallow Study Procedure Notes - Final Patient: Kevin White Date of : 1940 General Information: General Information Ordering Physician: Vanda Ramos CNP Date of Onset: 01/06/23 Date of Order: 01/06/23 Date of Evaluation: 01/06/23 Type of Study: Initial MBS Mental Status: Alert, Cooperative, Confused Oral Status: Permanent teeth, Missing teeth Respiratory Status: Room air Feeding: Staff (When self fed, pt very impulsive with liquids) View: Lateral Diet Prior to this Study: NPO Textures Used: Textures used: Thin spoon, Thin cup, Napanoch spoon, Napanoch cup, Napanoch straw, Pureed spoon, Ground mechanical Oral Phase: Oral Preparation/Oral Phase Oral Phase: Moderate Lipseal: Anterior leak left, Profuse spillage Lingual Control: Bolus to floor of mouth Lingual Coordination: Slow A-P transit Lingual Strength: Oral stasis, Diffuse Residue Clearance: Cued repeat swallow, Iiquid rinse needed, Partial clearance Mastication: Extended time Pharyngeal Phase: Pharyngeal Phase: Mild-Moderate (per CARLOS) Delay Swallow Inititated at: Pyriforms Tongue Base Retraction: Mild, Moderate, Partial epiglottic movement, Valleculae residue Vallecular Residue Flow to Pyriforms: Stasis flow to Pyriforms, Cued repeat swallow, Complete clearance Laryngeal Elevation: Mild, Partial epiglottic movement Supraglottic Closure: Penetration during Swallow, Laryngeal vestibule residue Vocal Cord Closure: Aspiration During Swallow Pharyngeal Sensation: Delayed pharyngeal swallow Laryngeal Sensation: Silent aspiration Esophageal Phase: Esophageal Phase: WFL (No upper esophageal residue or retrograde flow observed with any consistency.) Penetration: Penetration Present?: Yes Penetration A: Characteristics: Small amount, Shallow, During swallow Consistencies Penetrated: Thin cup, Napanoch cup, Napanoch straw Caused by: Reduced supraglottic closure Response: Able to clear, Consistent Penetration B: Characteristics: Small amount, Deep, To the vocal folds, During swallow Consistencies Penetrated: Thin continuous cup Caused by: Pharyngeal swallow delay, Reduced supraglottic closure Response: Cued cough, Unable to clear Strategies Used: Limit bolus size, Always effective Aspiration: Aspiration Present?: Yes Characteristics: Trace amount, During swallow Consistencies Aspirated: Thin continuous cup Caused By: Laryngeal vestibule residue Response: No cough, Cued cough, Unable to clear, Consistent Strategies Used: limit bolus size, Always effective Recommendation: Recommendations PO Recommendations: Pureed, Thin liquid, NO STRAWS, SMALL SIPS Strategies: Check pocketing left Food Presentation: Small bites, Food placement right Liquid Presentation: No straws, Small sips, Liquids by cup Medication Presentation: Whole in puree Amount of Supervision: Nursing / Staff supervision, 100% supervised Treatment Techniques: Train feeding / swallowing strategies, Laryngeal elevation exercise, Tongue base exercises, Mechanical soft, Therapeutic trials Further Recommendations: Assess for diet tolerance, Evlauate diet upgrade, Oral care TID Factors for Returning to Prior Level of Function Body Structure and Function: Neurologic impairment Explain Impairments: R MCA CVA Activities and Participation: Swallowing limitation, Communication limitation Explain Limitations: Aphasia, moderate oral and mild-moderate pharyngeal dysphagia Environmental Factors: Home situation Explain Environmental Factors: from home with Personal Factors: Awareness of own capacity and performance Explain Personal Factors: decreased Skilled Therapy Needs: Are Skilled Therapy Services Needed After Discharge: Yes Functional Limitations: dysphagia, need for supervision with po intake, communication deficits Intensity of Skilled Therapy: Up to 5 days per week Anticipated Duration of Skilled Therapy: Duration 10 - 30 days Fatoumata Patten M.S., [facility] PROFESSIONAL Speech-Language Pathologist [id number] Procedure note* Fatoumata Patten SLP - 01/06/2023 2:36 PM EST [facility] Speech Language Pathology Modified Barium Swallow Study Procedure Notes - Final Patient: Kevin White Date of : 1940 General Information: General Information Ordering Physician: Vanda Ramos CNP Date of Onset: 01/06/23 Date of Order: 01/06/23 Date of Evaluation: 01/06/23 Type of Study: Initial MBS Mental Status: Alert, Cooperative, Confused Oral Status: Permanent teeth, Missing teeth Respiratory Status: Room air Feeding: Staff (When self fed, pt very impulsive with liquids) View: Lateral Diet Prior to this Study: NPO Textures Used: Textures used: Thin spoon, Thin cup, Napanoch spoon, Napanoch cup, Napanoch straw, Pureed spoon, Ground mechanical Oral Phase: Oral Preparation/Oral Phase Oral Phase: Moderate Lipseal: Anterior leak left, Profuse spillage Lingual Control: Bolus to floor of mouth Lingual Coordination: Slow A-P transit Lingual Strength: Oral stasis, Diffuse Residue Clearance: Cued repeat swallow, Iiquid rinse needed, Partial clearance Mastication: Extended time Pharyngeal Phase: Pharyngeal Phase: Mild-Moderate (per CARLOS) Delay Swallow Inititated at: Pyriforms Tongue Base Retraction: Mild, Moderate, Partial epiglottic movement, Valleculae residue Vallecular Residue Flow to Pyriforms: Stasis flow to Pyriforms, Cued repeat swallow, Complete clearance Laryngeal Elevation: Mild, Partial epiglottic movement Supraglottic Closure: Penetration during Swallow, Laryngeal vestibule residue Vocal Cord Closure: Aspiration During Swallow Pharyngeal Sensation: Delayed pharyngeal swallow Laryngeal Sensation: Silent aspiration Esophageal Phase: Esophageal Phase: WFL (No upper esophageal residue or retrograde flow observed with any consistency.) Penetration: Penetration Present?: Yes Penetration A: Characteristics: Small amount, Shallow, During swallow Consistencies Penetrated: Thin cup, Napanoch cup, Napanoch straw Caused by: Reduced supraglottic closure Response: Able to clear, Consistent Penetration B: Characteristics: Small amount, Deep, To the vocal folds, During swallow Consistencies Penetrated: Thin continuous cup Caused by: Pharyngeal swallow delay, Reduced supraglottic closure Response: Cued cough, Unable to clear Strategies Used: Limit bolus size, Always effective Aspiration: Aspiration Present?: Yes Characteristics: Trace amount, During swallow Consistencies Aspirated: Thin continuous cup Caused By: Laryngeal vestibule residue Response: No cough, Cued cough, Unable to clear, Consistent Strategies Used: limit bolus size, Always effective Recommendation: Recommendations PO Recommendations: Pureed, Thin liquid, NO STRAWS, SMALL SIPS Strategies: Check pocketing left Food Presentation: Small bites, Food placement right Liquid Presentation: No straws, Small sips, Liquids by cup Medication Presentation: Whole in puree Amount of Supervision: Nursing / Staff supervision, 100% supervised Treatment Techniques: Train feeding / swallowing strategies, Laryngeal elevation exercise, Tongue base exercises, Mechanical soft, Therapeutic trials Further Recommendations: Assess for diet tolerance, Evlauate diet upgrade, Oral care TID Factors for Returning to Prior Level of Function Body Structure and Function: Neurologic impairment Explain Impairments: R MCA CVA Activities and Participation: Swallowing limitation, Communication limitation Explain Limitations: Aphasia, moderate oral and mild-moderate pharyngeal dysphagia Environmental Factors: Home situation Explain Environmental Factors: from home with Personal Factors: Awareness of own capacity and performance Explain Personal Factors: decreased Skilled Therapy Needs: Are Skilled Therapy Services Needed After Discharge: Yes Functional Limitations: dysphagia, need for supervision with po intake, communication deficits Intensity of Skilled Therapy: Up to 5 days per week Anticipated Duration of Skilled Therapy: Duration 10 - 30 days Fatoumata Patten M.S., [facility] PROFESSIONAL Speech-Language Pathologist documented in this [id number] Consult note* Cami Vaz LSW - 01/06/2023 11:16 AM ESTAssociated Order(s): IP CONSULT TO CARE MANAGEMENT Care Management Consult Note Date: 01/06/2023 Time: 11:39 AM Patient Name: Kevin White Date of : 1940 Reason for Consult: Transition of Care Discharge Plan: Pending medical progression and therapy recs. Discharging Transportation Plan: Discharge Plan Status: CC Consulted- stroke alert from [facility] ED Consult received and chart reviewed. Per ED notes, pt presents to [facility] as a transfer from [facility] due to stroke alert. Pt's PMH includes, arthritis, back pain, CHF, COPD (HCC), coronary artery disease, Diabetes mellitus, GERD, HTN, Sleep Apnea (refuses to use c-pap) and stroke (for more see attending note) Pt is A&Ox3 (person, place and time with cues and choices). Pt has ACP docs on file. POA/LNOK and Medical-Decision Maker: Anamaria White (Spouse, Power of Att) [phone] (H) [phone] (M) Initial and Holistic Assessment completed with pt's spouse Anamaria. Results are reflected in narrative and flowsheets below. Pt's main supports are: spouse,family. Pt lives with his spouse and oldest son Ludin in a single story home with 8 short steps to enter the home. At baseline, the pt typicallydoes not use an assistive device to ambulate. Current HME/DME includes: wheeled walker, cane. Pt does not wear oxygen at baseline. Pt has no reported history of therapy. Address: [address] [place] [address] PCP: Moi Gibson MD; P#: [phone] Insurance: [employer] MANAGED MEDICARE/[employer] [facility] ADVANTAGE CHOICE PPO Pt with therapy recs pending. Pt/family instructed that [facility] will continue to follow as further needs arise and assist with safe discharge planning as able. Assessment and Background Information: Living Arrangements: Spouse/significant other Support Systems: Spouse/significant other Assistance Needed: n/a Type of Residence: Private residence Prior to Admission Home Care Services: No Holistic Assessment Medication adherence problem:: No History of falls in last 6 months:: (!) Yes Family aware of the patient's advance care planning wishes:: Yes Do you have any cultural/spiritual connections or beliefs that would impact how we deliver your care?: No Chronic pain:: (!) Yes Location of chronic pain:: Back [id number] Consult note* Steve Ruffin MD - 01/06/2023 11:15 AM EST Associated Order(s): IP CONSULT TO NEUROLOGY I saw and evaluated this patient today. Please see attestation to stroke response consult note. [facility] Work Phone: [phone]) 143-482511-22-2023 Consult note* Fatoumata Patten SLP - 01/06/2023 8:48 AM EST Speech Pathology General Cognition / Communication Eval Note Auditory Comprehension Severity ratin-90% (Mild) Expressive Language Severity ratin-90% (Mild), 50-75% (Moderate) Motor Speech Severity ratin-75% (Moderate) Cognition Severity ratin-50% (Severe) Factors for returning to Prior Level of Function: Factors for Returning to Prior Level of Function Body Structure and Function: Neurologic impairment Explain Impairments: R MCA CVA Activities and Participation: Swallowing limitation Explain Limitations: suspect dysphagia Environmental Factors: Home situation Explain Environmental Factors: from home Personal Factors: Awareness of own capacity and performance Explain Personal Factors: decreased Skilled therapy needs: Skilled Therapy Needs: Are Skilled Therapy Services Needed After Discharge: Yes Functional Limitations: dysphagia, communication deficits Intensity of Skilled Therapy: 5 to 7 days per week Anticipated Duration of Skilled Therapy: Duration 10 - 30 days Prior function: Prior Function Reason for Referral: Stroke / neuro Primary Language: [place] Islander Employment Status: Retired Education Level: High school grad or equivalent Living Situation: With others Prior Speech Deficit: No known previous deficits Prior Language Deficit: No known previous deficits Prior Cognitive Deficit: No known previous deficits Baseline Assessment Subjective Impression: Alert, Cooperative, Pleasant Mood, Aphasic Respiratory Status: Room air Oral motor: Oral/Motor Oral Motor Impression-Severity Scale: Moderate Labial ROM: Reduced left Labial Symmetry at Rest: Abnormal symmetry left Labial Strength: Reduced Facial ROM: Reduced left Facial Symmetry at Rest: Left lower paresis Auditory Comprehension: Auditory Comp Impression-Severity Scale: 75-90% (Mild) Commands: Exceptions to WFL One Step Basic Commands: No Impairment Two Step Basic Commands: 75-90% (Mild) Yes/No Questions: Within Functional Limits Conversational Speech: Exceptions to WFL Simple Conversation: 75-90% (Mild) Hearing: Hard of hearing/hearing concerns Reading Comprehension: Reading Comp Impression-Severity: Requires further assessment Expressive Language: Expressive Language Impression-Severity: 75-90% (Mild), 50-75% (Moderate) Primary Mode of Expression: Verbal, Basic conversation level Naming: Exceptions to WFL Confrontational: 75-90% (Mild) [place] Divergent: 50-75% (Moderate) Narrative: Exceptions to WFL Conversation: 75-90% (Mild), 50-75% (Moderate) Motor Speech: Motor Speech Impression Severity: 50-75% (Moderate) Speech Intelligibility: Exceptions to WFL Word: 75-90% (Mild) Sentence: 50-75% (Moderate) Dysarthria Characteristics: Imprecise articulation, Poor breath support for speech, Low intensity Recommended Motor speech strategies: Increase volume, Slow speech rate, Stress mccloud words, Over-articulation, Schlater utterances Cognitive-Communication: Speech Cognition Impression-Severity: 25-50% (Severe) Orientation Level: Oriented to person, Disoriented to time, Disoriented to situation, Oriented to place, With choices Memory: Unable to assess Verbal Problem Solving: Exceptions to WFL Simple Functional Tasks: 50-75% (Moderate) Safety/Judgement: Exceptions to WFL Behavioral Observations: bed alarm, fall risk Insight: Decreased awareness of impairment, Decreased insight into impact of injury/deficits Task Initiation: Delayed initiation Flexibility of Thought: Reduced flexibility Pragmatics: No overt deficits Patient O-Log (Orientation Log) Score - Cut off score 25 or better on two separate administrations: Orientation-Log Orientation-log: Yes City: [address]: 3 Name of Hospital: 1 Month: 3 Date: 2 Year: 2 Day of Week: 2 Clock Time: 3 Etiology / Event: 1 Pathology Deficits: 1 Orientation Log Total Score (out of 30): 18 Orientation Log Impression - ACADEMIC SERVICES PROFESSIONAL: Will continue the O-Log based on the score today. Repeat Orientation-Log: Yes Patient Cog-Log (Cognitive Log) Score - Cut off score 25 or better: Cognitive-Log Cognitive-log: No Variance - Cognitive Log: Unable to administer test due to cognitive or communication deficits ACADEMIC SERVICES PROFESSIONAL Caregiver Readiness: ACADEMIC SERVICES PROFESSIONAL Caregiver Readiness Working toward discharge home: Yes ACADEMIC SERVICES PROFESSIONAL Caregiver Training: Caregiver not available Speech Plan: Further acute Speech Therapy services indicated: Yes Role of ST Discussed: With patient Risk/Benefits of ST Discussed: With patient Patient Goal for Treatment: Advance to oral diet Rehab Potential: Good Further Recommendations: MBS Past Medical History: Diagnosis Date Arthritis Back pain CHF (congestive heart failure) (HCC) COPD (chronic obstructive pulmonary disease) (HCC) Coronary artery disease Diabetes mellitus (HCC) Diabetes mellitus, type 2 (HCC) Disease of thyroid gland GERD (gastroesophageal reflux disease) Hernia of abdominal wall Hyperlipidemia Hypertension Myocardial infarction (HCC) Sleep apnea, obstructive refuses to use c-pap Stroke (HCC) Past Surgical History: Procedure Laterality Date CABG AVR W/ MAZE Bilateral 08/12/2021 Procedure: CORONARY ARTERY BYPASS GRAFT TIMES THREE (krueger-lad, svg-d1, svg- drca)WITH ENDOVEIN HARVEST, Aortic valve replacement (27mm Paul Inspiris), full LA MAZE (Encompass RFA box, RFA HEATHER, cryoRA caval and RAA line), LEFT ATRIAL APPENDAGE LIGATION (40mm AtriCLIP), TRANSESOPHAGEAL ECHOCARDIOGRAM; Surgeon: Luis Beasley MD; Location: [facility] OR; Service: Cardiothoracic CARDIAC CATHETERIZATION CARDIAC CATHETERIZATION Bilateral 07/01/2021 No intervention, right radial CARDIAC CATHETERIZATION N/A 07/01/2021 Procedure: Coronary Angiogram; Surgeon: Shmuel Villalpando MD; Location: [facility]; Service: Cardiovascular CARDIAC CATHETERIZATION N/A 07/01/2021 Procedure: Right Heart Cath; Surgeon: Shmuel Villalpando MD; Location: [facility]; Service: Cardiovascular CARDIAC CATHETERIZATION N/A 07/01/2021 Procedure: Left Ventriculogram; Surgeon: Shmuel Villalpando MD; Location: [facility]; Service: Cardiovascular CARDIAC CATHETERIZATION N/A 07/01/2021 Procedure: Left Heart Cath; Surgeon: Shmuel Villalpando MD; Location: [facility]; Service: Cardiovascular cataracts removed Bilateral CORONARY STENT PLACEMENT EP - INTERVENTION N/A 08/24/2021 Procedure: Cardioversion/CTA; Surgeon: Abhishek Lauren MD; Location: [facility] EP LAB; Service: Cardiovascular HERNIA REPAIR W/HYDROCELE Right Speech Pathology General Cognition / Communication Treatment Note Total Treatment Time (Total Session Time): 30 Minutes Skilled Interventions and Response to Interventions: Auditory Comprehension: Skilled intervention/treatment - Commands: Min verbal cues, Min visual cues, Patient education/training Patient Response to Intervention - Commands: Return demonstration independently Skilled intervention/treatment - Conv Speech: Min verbal cues, Patient education/training Patient Response to Intervention - Conv Speech: Return demonstration only in presence of cues Expressive Language: Skilled intervention/treatment - Naming: Mod verbal cues, Patient education/training Patient Response to Intervention - Naming: Return demonstration only in presence of cues Skilled intervention/treatment - Narrative: Mod verbal cues, Patient education/training Patient Response to Intervention - Narrative: Return demonstration only in presence of cues Motor Speech: Skilled Intervention/treatment: Mod verbal cues, Patient education/training Patient Response to Intervention: Neutral response to intervention For complete objective data, detailed plan of care, and education refer to: Speech Comm/Cog Eval flow sheet, as well as patient Plan of Care and Education documentation. This note stands as the current Discharge Summary upon patient discharge from the hospital or completion of Speech Pathology Plan of Care [id number] Consult note* Fatoumata Patten SLP - 01/06/2023 8:34 AM EST Speech Pathology Bedside Swallow Evaluation Recommendations: Further Eval Rxs: MBS NPO Recommendations: No trial feed, Until re-assess, Except ice chips following oral care, Except medication with puree Postures: Sit as upright as possible for all oral intake Medication Presentation: Crushed in puree Amount of Supervision: Nursing staff supervision, Physical assistance required, Constant Treatment Techniques: Therapeutic trial feedings with ACADEMIC SERVICES PROFESSIONAL only Further Recommendations: Oral care TID, Perform/Repeat instrumental assessment prior to diet advancement Discharge Recommendations: Skilled Therapy Needs: Are Skilled Therapy Services Needed After Discharge: Yes Functional Limitations: dysphagia, communication deficits Intensity of Skilled Therapy: 5 to 7 days per week Anticipated Duration of Skilled Therapy: Duration 10 - 30 days Prior Function: Reason for Referral: Stroke / neuro Prior Swallow Deficit: No known previous deficits Diet Prior to BSE: NPO Primary Language: Solomon Islander Baseline Assessment: Subjective Impression: Alert, Cooperative, Pleasant Mood, Aphasic Respiratory Status: Room air Self-Feeding Barriers: Impaired for self-feeding, Physical Patient Positioning: Upright in bed Secretion Management: Adequate Volitional Swallow: Present Oral Motor: Oral Motor Impression-Severity Scale: Moderate Labial ROM: Reduced left Labial Symmetry at Rest: Abnormal symmetry left Labial Strength: Reduced Facial ROM: Reduced left Facial Symmetry at Rest: Left lower paresis Voice: Breath Support: WFL Vocal Quality: Weak Vocal Intensity: Mildly decreased, Moderately decreased Consistencies Assessed: CONSISTENCY PRESENTATION ORAL (SIGNS / SYMPTOMS) PHARYNGEAL (SIGNS / SYMPTOMS) ICE Spoon, ACADEMIC SERVICES PROFESSIONAL fed Within functional limits Within Functional Limits THIN Cup, Straw, ACADEMIC SERVICES PROFESSIONAL fed Spillage Left Suspect delayed swallow, Suspect decreased laryngeal elevation, Cough - delayed, Wet vocal quality PUREE ACADEMIC SERVICES PROFESSIONAL fed, Spoon Within functional limits Within Functional Limits Impressions-Severity Level: Oral Severity Scale: Moderate Pharyngeal Severity Scale: Suspect impaired Factors for Returning to PLOF: Body Structure and Function: Neurologic impairment Explain Impairments: R MCA CVA Activities and Participation: Swallowing limitation Explain Limitations: suspect dysphagia Environmental Factors: Home situation Explain Environmental Factors: from home Personal Factors: Awareness of own capacity and performance Explain Personal Factors: decreased ACADEMIC SERVICES PROFESSIONAL Caregiver Readiness: ACADEMIC SERVICES PROFESSIONAL Caregiver Readiness Working toward discharge home: Yes ACADEMIC SERVICES PROFESSIONAL Caregiver Training: Caregiver not available Speech Plan: Further acute Speech Therapy services indicated: Yes Role of ST Discussed: With patient Risk/Benefits of ST Discussed: With patient Patient Goal for Treatment: Advance to oral diet Rehab Potential: Good Further Recommendations: MBS Speech Pathology Bedside Swallow Treatment Note Total Treatment Time (Total Session Time): 30 Minutes Skilled Interventions and Response to Interventions: BSE Skilled Intervention Patient education / training Oral Care verbalized comprehension of presented information Risk of Aspiration neutral response to intervention BSE/MBS/FEES neutral response to intervention, increased insight into deficits For complete objective data, detailed plan of care, and education refer to: Speech Bedside Swallow Evaluation flow sheet, as well as patient Plan of Care and Education documentation. This note stands as the current Discharge Summary upon patient discharge from the hospital or completion of Speech Pathology Plan of Care. [id number] Note* Plan of Care - Nancy Vasquez RN - 01/06/2023 7:57 AM EST patient is able to verbalize understanding but will require reinforcement as he is not able to repeat back teachings [id number] History and physical note* Esha Verdin, DRAFTER TOPOGRAPHICAL - 01/06/2023 7:17 AM EST Neurocritical Care History and Physical Kevin White is a 82 y.o. male with a PMH of HTN, CAD, AFIB s/p cardioversion/MAZE/LA clipping, CHF, COPD, IDDM type 2, hypothyroidism presented to [place] 01/06/2023 as a transfer from an [facility] after been found down with left sided weakness and garbled speech. He received tPA at [facility] but imaging upon arrival to [facility] showed no LVO. Admitted with these risk variables:Cerebral Infarction NIHSS = 7, AJAY or CKD, and Thrombocytopenia or Coagulation Defect. Please see assessment and plan for further details. Assessment and Plan NEUROLOGIC Right MCA CVA - Unclear etiology possibly related to Afib, however, in sinus rhythm. Possibly also related to cerebral athero - Family denies history of previous stroke - LKW 01/06 at 0000 - Found by with left sided weakness and garbled speech - Administered tPA at [facility] @ 0203 - CTA H/N at [facility]: Distal right MCA superior division occlusion, multiple areas with plaque including bilateral carotid bifurcations L>R - CT brain with perfusion at [facility]: previous M2 abnormality no longer seen, 0ml of hypoperfusion - Initial NIHSS at [facility]: 17, NIHSS on [facility] 7 - HgbA1c 6.6, LDL 66 - Continue statin, hold ASA until post thrombolytic CTH - TTE pending - Neurology consulted CARDIOVASCULAR Afib - Known history - Has undergone multiple procedures including cardioversion, a MAZE procedure, and ultimately LA clipping 07/2021 - Continue home Tikosyn. No home AC - EKG with sinus rhythm CAD - Known history - Hold home ASA, continue Statin HFpEF - Known history - TTE 11/13: EF 60% - TTE 01/06/2023: EF 59%, left atrial chamber is mildly enlarged - No evidence of fluid overload - Hold home lasix for now Rhythm and BP stable. PULMONARY COPD without exacerbation - Known history-family reports secondary to previous job not due to smoking - reports increase use of PRN nebulizer secondary to cold - Denies use of O2 at home or scheduled inhalers - PRN albuterol ordered RENAL CKD unclear stage - No reported history - In review of chart, since 02/2022 sCR has ranged 1.3-1.4 previously 0.9-1.2 - On admission sCR 1.43 - Strict I/Os - Renal ultrasound: no acute process - Gentle hydration with MIVF - Avoid nephrotoxic meds SNa 143, K 4, SCr 1.43 / BUN [address] Strict I/O's HEMATOLOGIC Thrombocytopenia - Unclear etiology - Following LA clipping platelets ranged 52-110 - Most recent platelet count 02/2022 158 - On admission Platelets 83 - Trend daily Hgb 14.9 / HCT 45.6, Plt 83, INR 1.1. ID Afebrile Tm < 99.5, WBC 8.58. reports patient completed 5 day course of Doxycycline week prior to admission ENDOCRINE IDDM type 2 - Known history - HgbA1c 6.6 - Hold home metformin and Lantus at this time - Continue SSI - Goal BGL 80-180 Hypothyroidism - Known history - Continue home synthroid GI / HEPATIC Dysphagia - Secondary to CVA - Speech therapy consulted - MBS pending PROPHYLAXIS SCDs, Home PPI, and Hold pharmacologic DVT ppx until post TPA CTH PT/OT: Ok for therapy SW: consulted CELESTE: TBD CODE STATUS / FAMILY - Full Code, discussed with his , Anamaria White, via telephone. She confirms patient has living will and patient is to be a full code. Plan discussed with [facility] attending Dr. Soto. Lisbeth to be the accepting service upon transfer from [facility]. Esha Verdin, RAFAEL Neurocritical Care Chief Complaint: Left sided weakness, garbled speech, Right MCA CVA History of Presenting Illness: Kevin White is a 82 y.o. male with a PMH of HTN, CAD, AFIB s/p cardioversion/MAZE/LA clipping, CHF, COPD, IDDM type 2, hypothyroidism presented to [place] 01/06/2023 as a transfer from an [facility] after been found down with left sided weakness and garbled speech. He received tPA at [facility] but imaging upon arrival to [facility] showed no LVO. This note is taken mostly from notes and the patient's as he has some mild expressive aphasia. The reports that the patient has had a cold for the last several weeks. He was placed on antibiotics last week and had some improvement in his symptoms. She saw him at midnight when they went tobed and then heard him in the bathroom at 0030 where she found him down with garbled speech and left sided weakness. He went to the [facility] where he was evaluated by telestroke and was administered tPA. He was sent to [facility] where the previously identified right MCA occlusion was no longer visualized. On arrival to [facility], the patient is alert and interactive. He does not appear in distress. He does become tearful regarding his stroke. Some very mild expressive aphasia. Follows commands. Denies SOB, chest pain, RAMSEY. Does report some nausea when asked. Review of Systems: [x] CV, Resp, GI, Neuro, and all other systems reviewed and negative other than listed above. [] Unable to obtain review of systems due to intubation, critically ill condition, and/or neurologic status. Past Medical, Surgical and Social History: Medical History: Past Medical History: Diagnosis Date Arthritis Back pain CHF (congestive heart failure) ([facility]) COPD (chronic obstructive pulmonary disease) ([facility]) Coronary artery disease Diabetes mellitus (HCC) Diabetes mellitus, type 2 (HCC) Disease of thyroid gland GERD (gastroesophageal reflux disease) Hernia of abdominal wall Hyperlipidemia Hypertension Myocardial infarction (HCC) Sleep apnea, obstructive refuses to use c-pap Stroke ([facility]) Surgical History: Past Surgical History: Procedure Laterality Date CABG AVR W/ MAZE Bilateral 08/12/2021 Procedure: CORONARY ARTERY BYPASS GRAFT TIMES THREE (krueger-lad, svg-d1, svg- drca)WITH ENDOVEIN HARVEST, Aortic valve replacement (27mm Paul Inspiris), full LA MAZE (Encompass RFA box, RFA HEATHER, cryoRA caval and RAA line), LEFT ATRIAL APPENDAGE LIGATION (40mm AtriCLIP), TRANSESOPHAGEAL ECHOCARDIOGRAM; Surgeon: Luis Beasley MD; Location: [facility] NEUR[facility] OR; Service: Cardiothoracic CARDIAC CATHETERIZATION CARDIAC CATHETERIZATION Bilateral 07/01/2021 No intervention, right radial CARDIAC CATHETERIZATION N/A 07/01/2021 Procedure: Coronary Angiogram; Surgeon: Shmuel Villalpando MD; Location: [facility]; Service: Cardiovascular CARDIAC CATHETERIZATION N/A 07/01/2021 Procedure: Right Heart Cath; Surgeon: Shmuel Villalpando MD; Location: [facility]; Service: Cardiovascular CARDIAC CATHETERIZATION N/A 07/01/2021 Procedure: Left Ventriculogram; Surgeon: Shmuel Villalpando MD; Location: [facility]; Service: Cardiovascular CARDIAC CATHETERIZATION N/A 07/01/2021 Procedure: Left Heart Cath; Surgeon: Shmuel Villalpando MD; Location: [facility]; Service: Cardiovascular cataracts removed Bilateral CORONARY STENT PLACEMENT EP - INTERVENTION N/A 08/24/2021 Procedure: Cardioversion/CTA; Surgeon: Abhishek Lauren MD; Location: [facility] EP LAB; Service: Cardiovascular HERNIA REPAIR W/HYDROCELE Right Family History: Family History Problem Relation Age of Onset Heart disease Father [] Unable to verify due to intubation and/or neurologic status. Social History: Social History Socioeconomic History Marital status: Spouse name: Antonella Occupational History Employer: OTHER- Occupation: Retired from [employer] Tobacco Use Smoking status: Never Smokeless tobacco: Never Vaping Use Vaping Use: Never used Substance and Sexual Activity Alcohol use: Not Currently Drug use: Never [] Unable to verify due to intubation and/or neurologic status. Allergies and Medications: Allergies: No Known Allergies Hospital medications reviewed. Home medications: Prior to Admission medications Medication Sig Start Date End Date Taking? Authorizing Provider amLODIPine (NORVASC) 10 MG tablet Take 1 (one) tablet (10 mg total) by mouth daily Start: 08/25/21. Patient taking differently: Take 0.5 (one-half) tablet (5 mg total) by mouth daily . 08/25/21 Mary Monaco CNP cyanocobalamin (B-12) 1000 MCG tablet Take 1 (one) tablet (1,000 mcg total) by mouth daily . ProviderAnastacia MD dofetilide (TIKOSYN) 250 MCG capsule Take 1 (one) capsule (250 mcg total) by mouth every 12 (twelve) hours . 01/05/23 Ira Ricci CNP esomeprazole (NEXIUM) 40 MG capsule Take 1 (one) capsule (40 mg total) by mouth every morning before breakfast . ProviderAnastacia MD furosemide (LASIX) 20 MG tablet Take 2 (two) tablets (40 mg total) by mouth daily . 09/25/21 Ira Meyers CNP insulin glargine (Lantus Solostar U-100 Insulin) 100 unit/mL (3 mL) InPn Inject 22 (twenty two) Units under the skin daily with dinner . 08/24/21 Mary Monaco CNP levothyroxine (SYNTHROID, LEVOTHROID) 175 MCG tablet Take 1 (one) tablet (175 mcg total) by mouth daily . Anastacia Randle MD lisinopriL (PRINIVIL,ZESTRIL) 10 MG tablet Take 1 (one) tablet (10 mg total) by mouth daily with lunch Start: 08/25/21. 08/25/21 Mary Monaco CNP metFORMIN (GLUCOPHAGE-XR) 500 MG 24 hr tablet Take 1 (one) tablet (500 mg total) by mouth 2 (two) times a day . Anastacia Randle MD potassium chloride SA (K-DUR,KLOR-CON) 20 MEQ tablet Take 1 (one) tablet (20 mEq total) by mouth daily . 09/25/21 01/05/23 Ira Meyers CNP rosuvastatin (CRESTOR) 20 MG tablet Take 1 (one) tablet (20 mg total) by mouth nightly . Anastacia Randle MD tamsulosin (FLOMAX) 0.4 mg capsule Take 1 (one) capsule (0.4 mg total) by mouth daily . Anastacia Randle MD therapeutic multivitamin (THERAGRAN) tablet Take 1 (one) tablet by mouth daily . Anastacia Randle MD traZODone (DESYREL) 50 MG tablet Take 0.5 (one-half) tablet (25 mg total) by mouth nightly as needed . Anastacia Randle MD metFORMIN (GLUCOPHAGE) 500 MG tablet Take 1 (one) tablet (500 mg total) by mouth 2 (two) times a day with meals Hold until repeat chem 7 . 07/01/21 01/06/23 Shmuel Villalpando MD Exam Vital Signs: Temp: [97.6 F (36.4 C)-98.1 F (36.7 C)] 97.6 F (36.4 C) Heart Rate: [60-77] 65 Resp: [16-24] 19 BP: (141-192)/(64-119) 165/64 I/O last 3 completed shifts: In: 15.7 [I.V.:15.7] Out: - General: Alert and comfortable on RA. Head/Neck: Head - Normocephalic. Eyes - Sclerae anicteric. Ears - External ears normal. Nose: Normal. Mouth - pink, moist. Neck - trachea is midline. Cardiovascular: Regular rate and rhythm. No clicks, rubs, murmurs, or gallops noted. Peripheral extremity pulses are palpable. Respiratory: Respiratory effort unlabored without accessory muscle use. Lung sounds clear to ascultation bilaterally without wheezes, rales, or rhonchi. Abdominal: Soft, nondistended, nontender, decreased bowel sounds. Musculoskeletal: No obvious long bone deformity. Extremities: Well perfused. No clubbing, cyanosis, or edema noted. Neurological: Awake and alert, oriented to name, place, and time. Gaze conjugate, left upper field cut. Left facial droop. Dysarthria. Follows commands. RUE/RLE motor strength 5/5. LUE 4/5 with drift. LLE 4/5 with drift. Skin: Normal turgor, well-hydrated, no diffuse rash appreciated. Clinical Data: [x] Lab, Micro data reviewed. [x] Most recent imaging reviewed. NIH Stroke Scale Time: 7:33 AM Person Administering Scale: Esha Verdin Administer stroke scale items in the order listed. Record performance in each category after each subscale exam. Do not go back and change scores. Follow directions provided for each exam technique. Scores should reflect what the patient does, not what the clinician thinks the patient can do. The clinician should record answers while administering the exam and work quickly. Except where indicated, the patient should not be coached (i.e., repeated requests to patient to make a special effort). 1a Level of consciousness: 0=alert; keenly responsive 1b. LOC questions: 0=Performs both tasks correctly 1c. LOC commands: 0=Performs both tasks correctly 2. Best Gaze: 0=normal 3. Visual: 1=Partial hemianopia 4. Facial Palsy: 2=Partial paralysis (total or near total paralysis of the lower face) 5a. Motor left arm: 1=Drift, limb holds 90 (or 45) degrees but drifts down before full 10 seconds: does not hit bed 5b. Motor right arm: 0=No drift, limb holds 90 (or 45) degrees for full 10 seconds 6a. motor left le=Drift, limb holds 90 (or 45) degrees but drifts down before full 10 seconds: does not hit bed 6b Motor right le=No drift, limb holds 90 (or 45) degrees for full 10 seconds 7. Limb Ataxia: 0=Absent 8. Sensory: 0=Normal; no sensory loss 9. Best Language: 1=Mild to moderate aphasia; some obvious loss of fluency or facility of comprehension without significant limitation on ideas expressed or form of expression. 10. Dysarthria: 1=Mild to moderate, patient slurs at least some words and at worst, can be understood with some difficulty 11. Extinction and Inattention: 0=No abnormality Total: 7 Recent Labs 01/06/2313801/06/23154 WBC 8.58 -- HGB 14.0 14.9 PLT 83* -- Recent Labs 01/05/23 1352 01/06/23 0139 01/06/23 01501/06/23 0547 NA 142 141 143 -- K 4.2 4.0 4.0 -- CL 108 108 103 -- BICARB 32 32 -- -- BUN 21 24 -- -- CREATININE 1.46* 1.43* -- -- GLUCOSE 114* 138* 125* -- PHOS -- -- -- 3.7 MG 1.6 -- -- -- TWYLA -- -- 4.9 4.9 CALCIUM 9.3 9.4 -- -- BILITOT -- 0.4 -- -- ALKPHOS -- 79 -- -- ALT -- 21 -- -- AST -- 20 -- -- PROT -- 7.1 -- -- ALBUMIN -- 3.7 -- -- Lab Results Component Value Date LACTICACID 1.6 01/06/2023 LACTICACID 1.9 08/13/2021 Recent Labs 01/06/23138 INR 1.1 PTT 24 Associated attestation - Ellen Soto MD - 01/06/2023 3:54 PM EST I have independently examined and reviewed this case and discussed the assessment and plan of care with the RACIEL. The RACIEL completed the initial history taking and physical examination. The assessment and plan were coordinated with myself and I independently completed a separate history and physical examination in a face to face encounter. I agree with the assessment and plan as provided in the note with clarifications/exceptions noted below. Patient seen and examined on rounds today. 82M a/w RMCA stroke s/p tPA (01/06 at 2:03AM). RM2 occlusion had resolved therefore no EVT. NIH 17->7. Admitted to [facility] for post thrombolytic management. Exam: A/ox4, mild dysarthria, no aphasia. PERRL, full EOM, LUQ hemianopsia, left facial droop, midline tongue. 4-/5 LUE with drift, 5/5 RUE and BLE. SILT. A/P RMCA stroke, left facial droop, LUE hemiparesis s/p tPA - no AC/AP until 24H scan negative for hemorrhage. Stroke workup. HgbA1c 6.6, LDL 66. TTE pending. Etiology likely large vessel athero vs embolic due to afib. Continue statin for secondary stroke prevention. PT/OT tomorrow. Afib - multiple cardioversion/MAZE procedures, s/o LA clipping 07/2021. On no AC at home. Resume home tikosyn. EKG sinus rhythm. CAD - Holding home aspirin, continue statin HFpEF - EF 59%, LA enlargement. No thrombus or PFO. No evidence of fluid overload. Holding home lasix. COPD - PRN albuterol. Goal O2>88% CKD - baseline Cr 1.3-1.4. Renal US no acute process. . Thrombocytopenia - unknown etiology. Had thrombocytopenia last year following LA clipping that had resolved. Will trend, if continues to drop will consult hematology. T2DM - A1c 6.6. Holding home metformin, lantus. SSI for now Dysphagia - secondary to stroke - pending MBS. NPO Ppx: scds, no chemoppx. GI ppx home ppi. Admitted to [facility]. 24H CTH at 2AM Ellen Soto MD Neurocritical Care 01/06/23 3:39 PM [id number] History and physical note* Esha Verdin, DRAFTER TOPOGRAPHICAL - 01/06/2023 7:17 AM EST Neurocritical Care History and Physical Kevin White is a 82 y.o. male with a PMH of HTN, CAD, AFIB s/p cardioversion/MAZE/LA clipping, CHF, COPD, IDDM type 2, hypothyroidism presented to [place] 01/06/2023 as a transfer from an [facility] after been found down with left sided weakness and garbled speech. He received tPA at [facility] but imaging upon arrival to [facility] showed no LVO. Admitted with these risk variables:Cerebral Infarction NIHSS = 7, AJAY or CKD, and Thrombocytopenia or Coagulation Defect. Please see assessment and plan for further details. Assessment and Plan NEUROLOGIC Right MCA CVA - Unclear etiology possibly related to Afib, however, in sinus rhythm. Possibly also related to cerebral athero - Family denies history of previous stroke - LKW 01/06 at 0000 - Found by with left sided weakness and garbled speech - Administered tPA at [facility] @ 0203 - CTA H/N at [facility]: Distal right MCA superior division occlusion, multiple areas with plaque including bilateral carotid bifurcations L>R - CT brain with perfusion at [facility]: previous M2 abnormality no longer seen, 0ml of hypoperfusion - Initial NIHSS at [facility]: 17, NIHSS on NCC 7 - HgbA1c 6.6, LDL 66 - Continue statin, hold ASA until post thrombolytic CTH - TTE pending - Neurology consulted CARDIOVASCULAR Afib - Known history - Has undergone multiple procedures including cardioversion, a MAZE procedure, and ultimately LA clipping 07/2021 - Continue home Tikosyn. No home AC - EKG with sinus rhythm CAD - Known history - Hold home ASA, continue Statin HFpEF - Known history - TTE 11/13: EF 60% - TTE 01/06/2023: EF 59%, left atrial chamber is mildly enlarged - No evidence of fluid overload - Hold home lasix for now Rhythm and BP stable. PULMONARY COPD without exacerbation - Known history-family reports secondary to previous job not due to smoking - reports increase use of PRN nebulizer secondary to cold - Denies use of O2 at home or scheduled inhalers - PRN albuterol ordered RENAL CKD unclear stage - No reported history - In review of chart, since 02/2022 sCR has ranged 1.3-1.4 previously 0.9-1.2 - On admission sCR 1.43 - Strict I/Os - Renal ultrasound: no acute process - Gentle hydration with MIVF - Avoid nephrotoxic meds SNa 143, K 4, SCr 1.43 / BUN [address] Strict I/O's HEMATOLOGIC Thrombocytopenia - Unclear etiology - Following LA clipping platelets ranged 52-110 - Most recent platelet count 02/2022 158 - On admission Platelets 83 - Trend daily Hgb 14.9 / HCT 45.6, Plt 83, INR 1.1. ID Afebrile Tm < 99.5, WBC 8.58. reports patient completed 5 day course of Doxycycline week prior to admission ENDOCRINE IDDM type 2 - Known history - HgbA1c 6.6 - Hold home metformin and Lantus at this time - Continue SSI - Goal BGL 80-180 Hypothyroidism - Known history - Continue home synthroid GI / HEPATIC Dysphagia - Secondary to CVA - Speech therapy consulted - MBS pending PROPHYLAXIS SCDs, Home PPI, and Hold pharmacologic DVT ppx until post TPA CTH PT/OT: Ok for therapy SW: consulted CELESTE: TBD CODE STATUS / FAMILY - Full Code, discussed with his , Anamaria White, via telephone. She confirms patient has living will and patient is to be a full code. Plan discussed with [facility] attending Dr. Soto. Lisbeth to be the accepting service upon transfer from [facility]. Esha Verdin, RAFAEL Neurocritical Care Chief Complaint: Left sided weakness, garbled speech, Right MCA CVA History of Presenting Illness: Kevin White is a 82 y.o. male with a PMH of HTN, CAD, AFIB s/p cardioversion/MAZE/LA clipping, CHF, COPD, IDDM type 2, hypothyroidism presented to [place] 01/06/2023 as a transfer from an [facility] after been found down with left sided weakness and garbled speech. He received tPA at [facility] but imaging upon arrival to [facility] showed no LVO. This note is taken mostly from notes and the patient's as he has some mild expressive aphasia. The reports that the patient has had a cold for the last several weeks. He was placed on antibiotics last week and had some improvement in his symptoms. She saw him at midnight when they went tobed and then heard him in the bathroom at 0030 where she found him down with garbled speech and left sided weakness. He went to the [facility] where he was evaluated by telestroke and was administered tPA. He was sent to [facility] where the previously identified right MCA occlusion was no longer visualized. On arrival to [facility], the patient is alert and interactive. He does not appear in distress. He does become tearful regarding his stroke. Some very mild expressive aphasia. Follows commands. Denies SOB, chest pain, RAMSEY. Does report some nausea when asked. Review of Systems: [x] CV, Resp, GI, Neuro, and all other systems reviewed and negative other than listed above. [] Unable to obtain review of systems due to intubation, critically ill condition, and/or neurologic status. Past Medical, Surgical and Social History: Medical History: Past Medical History: Diagnosis Date Arthritis Back pain CHF (congestive heart failure) (HCC) COPD (chronic obstructive pulmonary disease) (HCC) Coronary artery disease Diabetes mellitus (HCC) Diabetes mellitus, type 2 (HCC) Disease of thyroid gland GERD (gastroesophageal reflux disease) Hernia of abdominal wall Hyperlipidemia Hypertension Myocardial infarction (HCC) Sleep apnea, obstructive refuses to use c-pap Stroke (HCC) Surgical History: Past Surgical History: Procedure Laterality Date CABG AVR W/ MAZE Bilateral 08/12/2021 Procedure: CORONARY ARTERY BYPASS GRAFT TIMES THREE (krueger-lad, svg-d1, svg- drca)WITH ENDOVEIN HARVEST, Aortic valve replacement (27mm Paul Inspiris), full LA MAZE (Encompass RFA box, RFA HEATHER, cryoRA caval and RAA line), LEFT ATRIAL APPENDAGE LIGATION (40mm AtriCLIP), TRANSESOPHAGEAL ECHOCARDIOGRAM; Surgeon: Luis Beasley MD; Location: [facility]UR[facility] OR; Service: Cardiothoracic CARDIAC CATHETERIZATION CARDIAC CATHETERIZATION Bilateral 07/01/2021 No intervention, right radial CARDIAC CATHETERIZATION N/A 07/01/2021 Procedure: Coronary Angiogram; Surgeon: Shmuel Villalpando MD; Location: [facility]; Service: Cardiovascular CARDIAC CATHETERIZATION N/A 07/01/2021 Procedure: Right Heart Cath; Surgeon: Shmuel Villalpando MD; Location: [facility]; Service: Cardiovascular CARDIAC CATHETERIZATION N/A 07/01/2021 Procedure: Left Ventriculogram; Surgeon: Shmuel Villalpando MD; Location: [facility]; Service: Cardiovascular CARDIAC CATHETERIZATION N/A 07/01/2021 Procedure: Left Heart Cath; Surgeon: Shmuel Villalpando MD; Location: [facility]; Service: Cardiovascular cataracts removed Bilateral CORONARY STENT PLACEMENT EP - INTERVENTION N/A 08/24/2021 Procedure: Cardioversion/CTA; Surgeon: Abhishek Lauren MD; Location: [facility] EP LAB; Service: Cardiovascular HERNIA REPAIR W/HYDROCELE Right Family History: Family History Problem Relation Age of Onset Heart disease Father [] Unable to verify due to intubation and/or neurologic status. Social History: Social History Socioeconomic History Marital status: Spouse name: Antonella Occupational History Employer: OTHER- Occupation: Retired from [employer] Tobacco Use Smoking status: Never Smokeless tobacco: Never Vaping Use Vaping Use: Never used Substance and Sexual Activity Alcohol use: Not Currently Drug use: Never [] Unable to verify due to intubation and/or neurologic status. Allergies and Medications: Allergies: No Known Allergies Hospital medications reviewed. Home medications: Prior to Admission medications Medication Sig Start Date End Date Taking? Authorizing Provider amLODIPine (NORVASC) 10 MG tablet Take 1 (one) tablet (10 mg total) by mouth daily Start: 08/25/21. Patient taking differently: Take 0.5 (one-half) tablet (5 mg total) by mouth daily . 08/25/21 Mary Monaco CNP cyanocobalamin (B-12) 1000 MCG tablet Take 1 (one) tablet (1,000 mcg total) by mouth daily . Anastacia Randle MD dofetilide (TIKOSYN) 250 MCG capsule Take 1 (one) capsule (250 mcg total) by mouth every 12 (twelve) hours . 01/05/23 Ira Ricci CNP esomeprazole (NEXIUM) 40 MG capsule Take 1 (one) capsule (40 mg total) by mouth every morning before breakfast . ProviderAnastacia MD furosemide (LASIX) 20 MG tablet Take 2 (two) tablets (40 mg total) by mouth daily . 09/25/21 Ira Meyers CNP insulin glargine (Lantus Solostar U-100 Insulin) 100 unit/mL (3 mL) InPn Inject 22 (twenty two) Units under the skin daily with dinner . 08/24/21 Mary Monaco CNP levothyroxine (SYNTHROID, LEVOTHROID) 175 MCG tablet Take 1 (one) tablet (175 mcg total) by mouth daily . ProviderAnastacia, MD lisinopriL (PRINIVIL,ZESTRIL) 10 MG tablet Take 1 (one) tablet (10 mg total) by mouth daily with lunch Start: 08/25/21. 08/25/21 Mary Monaco CNP metFORMIN (GLUCOPHAGE-XR) 500 MG 24 hr tablet Take 1 (one) tablet (500 mg total) by mouth 2 (two) times a day . Anastacia Randle MD potassium chloride SA (K-DUR,KLOR-CON) 20 MEQ tablet Take 1 (one) tablet (20 mEq total) by mouth daily . 09/25/21 01/05/23 Ira Meyers CNP rosuvastatin (CRESTOR) 20 MG tablet Take 1 (one) tablet (20 mg total) by mouth nightly . Anastacia Randle MD tamsulosin (FLOMAX) 0.4 mg capsule Take 1 (one) capsule (0.4 mg total) by mouth daily . Anastacia Randle MD therapeutic multivitamin (THERAGRAN) tablet Take 1 (one) tablet by mouth daily . Anastacia Randle MD traZODone (DESYREL) 50 MG tablet Take 0.5 (one-half) tablet (25 mg total) by mouth nightly as needed . Anastacia Randle MD metFORMIN (GLUCOPHAGE) 500 MG tablet Take 1 (one) tablet (500 mg total) by mouth 2 (two) times a day with meals Hold until repeat chem 7 . 07/01/21 01/06/23 Shmuel Villalpando MD Exam Vital Signs: Temp: [97.6 F (36.4 C)-98.1 F (36.7 C)] 97.6 F (36.4 C) Heart Rate: [60-77] 65 Resp: [16-24] 19 BP: (141-192)/(64-119) 165/64 I/O last 3 completed shifts: In: 15.7 [I.V.:15.7] Out: - General: Alert and comfortable on RA. Head/Neck: Head - Normocephalic. Eyes - Sclerae anicteric. Ears - External ears normal. Nose: Normal. Mouth - pink, moist. Neck - trachea is midline. Cardiovascular: Regular rate and rhythm. No clicks, rubs, murmurs, or gallops noted. Peripheral extremity pulses are palpable. Respiratory: Respiratory effort unlabored without accessory muscle use. Lung sounds clear to ascultation bilaterally without wheezes, rales, or rhonchi. Abdominal: Soft, nondistended, nontender, decreased bowel sounds. Musculoskeletal: No obvious long bone deformity. Extremities: Well perfused. No clubbing, cyanosis, or edema noted. Neurological: Awake and alert, oriented to name, place, and time. Gaze conjugate, left upper field cut. Left facial droop. Dysarthria. Follows commands. RUE/RLE motor strength 5/5. LUE 4/5 with drift. LLE 4/5 with drift. Skin: Normal turgor, well-hydrated, no diffuse rash appreciated. Clinical Data: [x] Lab, Micro data reviewed. [x] Most recent imaging reviewed. NIH Stroke Scale Time: 7:33 AM Person Administering Scale: Esha Verdin Administer stroke scale items in the order listed. Record performance in each category after each subscale exam. Do not go back and change scores. Follow directions provided for each exam technique. Scores should reflect what the patient does, not what the clinician thinks the patient can do. The clinician should record answers while administering the exam and work quickly. Except where indicated, the patient should not be coached (i.e., repeated requests to patient to make a special effort). 1a Level of consciousness: 0=alert; keenly responsive 1b. LOC questions: 0=Performs both tasks correctly 1c. LOC commands: 0=Performs both tasks correctly 2. Best Gaze: 0=normal 3. Visual: 1=Partial hemianopia 4. Facial Palsy: 2=Partial paralysis (total or near total paralysis of the lower face) 5a. Motor left arm: 1=Drift, limb holds 90 (or 45) degrees but drifts down before full 10 seconds: does not hit bed 5b. Motor right arm: 0=No drift, limb holds 90 (or 45) degrees for full 10 seconds 6a. motor left le=Drift, limb holds 90 (or 45) degrees but drifts down before full 10 seconds: does not hit bed 6b Motor right le=No drift, limb holds 90 (or 45) degrees for full 10 seconds 7. Limb Ataxia: 0=Absent 8. Sensory: 0=Normal; no sensory loss 9. Best Language: 1=Mild to moderate aphasia; some obvious loss of fluency or facility of comprehension without significant limitation on ideas expressed or form of expression. 10. Dysarthria: 1=Mild to moderate, patient slurs at least some words and at worst, can be understood with some difficulty 11. Extinction and Inattention: 0=No abnormality Total: 7 Recent Labs 01/06/23 0139 01/06/23 0155 WBC 8.58 -- HGB 14.0 14.9 PLT 83* -- Recent Labs 01/05/23 1352 01/06/23 0139 01/06/23 0155 01/06/23 0547 NA 142 141 143 -- K 4.2 4.0 4.0 -- CL 108 108 103 -- BICARB 32 32 -- -- BUN 21 24 -- -- CREATININE 1.46* 1.43* -- -- GLUCOSE 114* 138* 125* -- PHOS -- -- -- 3.7 MG 1.6 -- -- -- TWYLA -- -- 4.9 4.9 CALCIUM 9.3 9.4 -- -- BILITOT -- 0.4 -- -- ALKPHOS -- 79 -- -- ALT -- 21 -- -- AST -- 20 -- -- PROT -- 7.1 -- -- ALBUMIN -- 3.7 -- -- Lab Results Component Value Date LACTICACID 1.6 01/06/2023 LACTICACID 1.9 08/13/2021 Recent Labs 01/06/23 0139 INR 1.1 PTT 24 Associated attestation - Ellen Soto MD - 01/06/2023 3:54 PM EST I have independently examined and reviewed this case and discussed the assessment and plan of care with the RACIEL. The RACIEL completed the initial history taking and physical examination. The assessment and plan were coordinated with myself and I independently completed a separate history and physical examination in a face to face encounter. I agree with the assessment and plan as provided in the note with clarifications/exceptions noted below. Patient seen and examined on rounds today. 82M a/w RMCA stroke s/p tPA (11/22 at 2:03AM). RM2 occlusion had resolved therefore no EVT. NIH 17->7. Admitted to [facility] for post thrombolytic management. Exam: A/ox4, mild dysarthria, no aphasia. PERRL, full EOM, LUQ hemianopsia, left facial droop, midline tongue. 4-/5 LUE with drift, 5/5 RUE and BLE. SILT. A/P RMCA stroke, left facial droop, LUE hemiparesis s/p tPA - no AC/AP until 24H scan negative for hemorrhage. Stroke workup. HgbA1c 6.6, LDL 66. TTE pending. Etiology likely large vessel athero vs embolic due to afib. Continue statin for secondary stroke prevention. PT/OT tomorrow. Afib - multiple cardioversion/MAZE procedures, s/o LA clipping 07/2021. On no AC at home. Resume home tikosyn. EKG sinus rhythm. CAD - Holding home aspirin, continue statin HFpEF - EF 59%, LA enlargement. No thrombus or PFO. No evidence of fluid overload. Holding home lasix. COPD - PRN albuterol. Goal O2>88% CKD - baseline Cr 1.3-1.4. Renal US no acute process. . Thrombocytopenia - unknown etiology. Had thrombocytopenia last year following LA clipping that had resolved. Will trend, if continues to drop will consult hematology. T2DM - A1c 6.6. Holding home metformin, lantus. SSI for now Dysphagia - secondary to stroke - pending MBS. NPO Ppx: scds, no chemoppx. GI ppx home ppi. Admitted to [facility]. 24H CTH at 2AM Ellen Soto MD Neurocritical Care 01/06/23 3:39 PM documented in this [id number] Note* Quick Note - Nola Aldridge RN - 01/06/2023 6:13 AM EST Patient arrives on unit with no belongings. Verified with second associate, Lucinda LUJAN Skin assessment completed upon admission to unit. Verified by note author and TAI Jane. Left upper arm skin tear. Preventative Mepilex applied to sacrum and heels. [id number] Emergency department Note* Naomi Paredes RN - 01/06/2023 5:53 AM EST Report called to RN receiving pt to room 4530 [id number] Emergency department Note* Naomi Paredes RN - 01/06/2023 5:53 AM EST Report called to RN receiving pt to room 4530 * Drake Granados - 01/06/2023 5:[address] soto will be writing orders for admission [id number]--[facility] will be the receiving service upontransfer from critical care unit * Naomi Paredes RN - 01/06/2023 4:56 AM EST Pt back from CT * Naomi Paredes RN - 01/06/2023 4:51 AM EST HOB 30 degrees * Naomi Paredes RN - 01/06/2023 4:45 AM EST Pt arrives as a transfer from [place] as a level 1 stroke alert. LKW 0000. Pt had a fall at home was found to have L arm weakness and facial droop by ems. LAMS 5. Was given TPA in [place]. * Jeffry Arreaga MD - 01/06/2023 4:43 AM ESTAssociated Order(s): Critical Care [facility] EMERGENCY DEPARTMENT EMERGENCY MEDICINE NOTE PCP: Moi Gibson MD Encounter Date: 01/06/23 Chief Complaint: No chief complaint on file. History of Presenting Illness: Kevin White is a 82 y.o. male with a past medical history that includes has a past medical history of Arthritis, Back pain, CHF (congestive heart failure) (HCC), COPD (chronic obstructive pulmonarydisease) (HCC), Coronary artery disease, Diabetes mellitus (HCC), Diabetes mellitus, type 2 (HCC), Disease of thyroid gland, GERD (gastroesophageal reflux disease), Hernia of abdominal wall, Hyperlipidemia, Hypertension, Myocardial infarction (HCC), Sleep apnea, obstructive, and Stroke ([facility]).. HPI Unable to obtain full HPI, ROS, PMH, PSH, Social Hx, Family Hx, Meds, Allergies secondary to confusion vs aphasia + dysarthria. Per EMS: stroke symptoms just CREATIVE INTERN at OSH, recvd tpa, SBP Max 160s ED Course/ Medical Decision Making Medical Decision Making 82-year-old male with a complex past medical history as above presenting with concern for stroke. Around 1230, he reportedly had left upper extremity weakness, dysarthria, aphasia. He received tPA atthe outside hospital. On arrival, he has excellent use of his left arm, though some drift. He has left facial droop, slurred speech. Mild confusion versus aphasia. Stroke alert called, immediately toCT after I consulted with the stroke team. Admitted to the [facility]. Unlikely meningitis, ACS. This patient presented with an acute problem with symptoms that are likely to represent a highly morbid condition. As part of my MDM, I reviewed prior notes including discharge summary from March 13 where patient was seen for A-fib I ordered tests I independently reviewed results of tests I considered ordering additional tests or treatments and I determined that there was no indication for antibiotics given unlikely bacterial infection I had a discussion of the management or test interpretation with them. Shared decision making was used that included eliciting patient and/or family preferences, patient and/or family education, and explaining risks and benefits of management options Stroke team determined not to take him to the IR because the thrombolytic had good success based onhis imaging here. . Disposition: ADMIT Admitting Service Notified at time the disposition was selected for admission. IMPRESSION: 1. Acute ischemic stroke (HCC) 2. Elevated blood pressure reading . ([employer] was used to transcribe this note) ED Course: ED Course as of 01/06/23 0517 WedJan 06, 2023 [id number] I consulted w/ the stroke team who recommended straight to ct for perfusion study, likely IR [GS] 0515 Consulted stroke team: admit to NCC [GS] 0515 CT interpreted by me shows no large intracranial hemorrhage [GS] ED Course User Index [GS] Jeffry Arreaga MD Diagnostics Laboratory (if any, during ED visit): Labs Reviewed - No data to display RADIOGRAPHIC IMAGING (if any, during ED visit): CT Head Without Contrast (Stroke) Final Result 1. Subtle low-density within the llamas radiata on the right. Early area of infarction not excluded. 2. Hyperdensity within the distal right MCA not as conspicuous as on the prior study. 3. Small vessel ischemic changes. 4. Atrophy. Workstation ID: [id number] CT Angiogram Brain With Perfusion (Results Pending) MEDICATIONS ORDERED/GIVEN (if any, during ED visit): Medications labetaloL (NORMODYNE) injection 10 mg (has no administration in time range) Or hydrALAZINE (APRESOLINE) injection 10 mg (has no administration in time range) niCARdipine (CARDENE-IV) 20 mg in 0.9% NaCl 200 mL infusion (has no administration in time range) iopamidoL (ISOVUE-370) 370 mg iodine /mL (76 %) injection 75 mL (75 mL Intravenous Contrast Administered 01/06/23 9747) Review of Systems: Review of Systems Past Medical, Surgical, Family, and Social History: Past Medical History: Past Medical History: Diagnosis Date Arthritis Back pain CHF (congestive heart failure) (HCC) COPD (chronic obstructive pulmonary disease) (HCC) Coronary artery disease Diabetes mellitus (HCC) Diabetes mellitus, type 2 (HCC) Disease of thyroid gland GERD (gastroesophageal reflux disease) Hernia of abdominal wall Hyperlipidemia Hypertension Myocardial infarction (HCC) Sleep apnea, obstructive refuses to use c-pap Stroke (HCC) Past medical history reviewed. Past Surgical History: Past Surgical History: Procedure Laterality Date CABG AVR W/ MAZE Bilateral 08/12/2021 Procedure: CORONARY ARTERY BYPASS GRAFT TIMES THREE (krueger-lad, svg-d1, svg- drca)WITH ENDOVEIN HARVEST, Aortic valve replacement (27mm Paul Inspiris), full LA MAZE (Encompass RFA box, RFA HEATHER, cryoRA caval and RAA line), LEFT ATRIAL APPENDAGE LIGATION (40mm AtriCLIP), TRANSESOPHAGEAL ECHOCARDIOGRAM; Surgeon: Luis Beasley MD; Location: [facility]; Service: Cardiothoracic CARDIAC CATHETERIZATION CARDIAC CATHETERIZATION Bilateral 07/01/2021 No intervention, right radial CARDIAC CATHETERIZATION N/A 07/01/2021 Procedure: Coronary Angiogram; Surgeon: Shmuel Villalpando MD; Location: [facility]; Service: Cardiovascular CARDIAC CATHETERIZATION N/A 07/01/2021 Procedure: Right Heart Cath; Surgeon: Shmuel Villalpando MD; Location: [facility]; Service: Cardiovascular CARDIAC CATHETERIZATION N/A 07/01/2021 Procedure: Left Ventriculogram; Surgeon: Shmuel Villalpando MD; Location: [facility]; Service: Cardiovascular CARDIAC CATHETERIZATION N/A 07/01/2021 Procedure: Left Heart Cath; Surgeon: Shmuel Villalpando MD; Location: [facility]; Service: Cardiovascular cataracts removed Bilateral CORONARY STENT PLACEMENT EP - INTERVENTION N/A 08/24/2021 Procedure: Cardioversion/CTA; Surgeon: Abhishek Lauren MD; Location: [facility] EP LAB; Service: Cardiovascular HERNIA REPAIR W/HYDROCELE Right Past surgical history reviewed. Family History: Family History Problem Relation Age of Onset Heart disease Father Family history reviewed. Social History: Social History Socioeconomic History Marital status: Spouse name: Antonella Occupational History Employer: OTHER- Occupation: Retired from [employer] Tobacco Use Smoking status: Never Smokeless tobacco: Never Vaping Use Vaping Use: Never used Substance and Sexual Activity Alcohol use: Not Currently Drug use: Never Social history reviewed. Allergies and Medications: Allergies: No Known Allergies Medications: Patient's Medications New Prescriptions No medications on file Previous Medications AMLODIPINE (NORVASC) 10 MG TABLET Take 1 (one) tablet (10 mg total) by mouth daily Start: 08/25/21. CYANOCOBALAMIN (B-12) 1000 MCG TABLET Take 1 (one) tablet (1,000 mcg total) by mouth daily . DOFETILIDE (TIKOSYN) 250 MCG CAPSULE Take 1 (one) capsule (250 mcg total) by mouth every 12 (twelve) hours . ESOMEPRAZOLE (NEXIUM) 40 MG CAPSULE Take 1 (one) capsule (40 mg total) by mouth every morning before breakfast . FUROSEMIDE (LASIX) 20 MG TABLET Take 2 (two) tablets (40 mg total) by mouth daily . INSULIN GLARGINE (LANTUS SOLOSTAR U-100 INSULIN) 100 UNIT/ML (3 ML) INPN Inject 22 (twenty two) Units under the skin daily with dinner . LEVOTHYROXINE (SYNTHROID, LEVOTHROID) 175 MCG TABLET Take 1 (one) tablet (175 mcg total) by mouth daily . LISINOPRIL (PRINIVIL,ZESTRIL) 10 MG TABLET Take 1 (one) tablet (10 mg total) by mouth daily with lunch Start: 08/25/21. METFORMIN (GLUCOPHAGE-XR) 500 MG 24 HR TABLET Take 1 (one) tablet (500 mg total) by mouth 2 (two) times a day . POTASSIUM CHLORIDE SA (K-DUR,KLOR-CON) 20 MEQ TABLET Take 1 (one) tablet (20 mEq total) by mouth daily . ROSUVASTATIN (CRESTOR) 20 MG TABLET Take 1 (one) tablet (20 mg total) by mouth nightly . TAMSULOSIN (FLOMAX) 0.4 MG CAPSULE Take 1 (one) capsule (0.4 mg total) by mouth daily . THERAPEUTIC MULTIVITAMIN (THERAGRAN) TABLET Take 1 (one) tablet by mouth daily . TRAZODONE (DESYREL) 50 MG TABLET Take 0.5 (one-half) tablet (25 mg total) by mouth nightly as needed . Modified Medications No medications on file Discontinued Medications No medications on file Physical Exam: Vital Signs There were no vitals taken for this visit. Physical Exam Vitals and nursing note reviewed. Constitutional: General: He is not in acute distress. Appearance: He is not toxic-appearing. HENT: Head: Normocephalic. Right Ear: External ear normal. Left Ear: External ear normal. Eyes: General: No scleral icterus. Conjunctiva/sclera: Conjunctivae normal. Cardiovascular: Pulses: Normal pulses. Musculoskeletal: General: No swelling or tenderness. Cervical back: Normal range of motion and neck supple. Right lower leg: No edema. Left lower leg: No edema. Pulmonary: Effort: Pulmonary effort is normal. Breath sounds: No stridor. Abdominal: General: There is no distension. Palpations: Abdomen is soft. There is no mass. Tenderness: There is no abdominal tenderness. There is no guarding or rebound. Skin: Capillary Refill: Capillary refill takes less than 2 seconds. Findings: No rash. Neurological: General: No focal deficit present. Mental Status: He is disoriented. Cranial Nerves: Cranial nerve deficit present. Sensory: No sensory deficit. Motor: Weakness present. Psychiatric: Mood and Affect: Mood normal. Behavior: Behavior normal. NIH Scale: LOC: 0 - alert LOC Questions: 1 - answers one correctly LOC Commands: 0 - performs both correctly Best gaze: 0 - normal Vision: 0 - no visual loss Facial Palsy: 2 - partial Left arm: 1 - drift Right arm; 0 - no drift Left le - no drift Right le - no drift Limb ataxia: 0 - absent Sensation: 0 - normal Best language: 1 - mild to moderate aphasia Dysarthria: 1 - mild to moderate dysarthria Extinction and inattention: 0 - no neglect Stroke Scale: 6 Vital Signs During ED Visit (as charted by nursing) No data found. PROCEDURES (if any, during ED visit): Critical Care Performed by: Jeffry Arreaga MD Authorized by: Jeffry Arreaga MD Total critical care time: 35 minutes Critical care time was exclusive of separately billable procedures and treating other patients and teaching time. 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 Critical care was time spent personally by me on the following activities: development of treatmentplan with patient or surrogate, discussions with consultants, interpretation of cardiac output measurements, evaluation of patient's response to treatment, examination of patient, obtaining history from patient or surrogate, ordering and performing treatments and interventions, ordering and review of radiographic studies, pulse oximetry, re-evaluation of patient's condition and review of old charts. Jeffry Arreaga MD 01/06/23 0518 * Drake Granados - 01/06/2023 4:24 AM EST Stroke Alert (1) called per dr arreaga eta [address] then to cart 55 lkw 0003 mf25 documented in this [id number] Emergency department Note* Drake Granados - 01/06/2023 5:[address] soto will be writing orders for admission [phone]--[facility] will be the receiving service upontransfer from critical care unit [id number] Emergency department Note* Naomi Paredes RN - 01/06/2023 4:56 AM EST Pt back from CT [id number] Emergency department Note* Naomi Paredes, TAI - 01/06/2023 4:51 AM EST HOB 30 degrees [id number] Emergency department Triage note* Naomi Paredes RN - 01/06/2023 4:45 AM EST Pt arrives as a transfer from [facility] as a level 1 stroke alert. LKW 0000. Pt had a fall at home was found to have L arm weakness and facial droop by ems. LAMS 5. Was given TPA in [facility]. [id number] Note* Quick Note - Cheryl Raúlaleisha Zhang DO - 01/06/2023 4:44 AM EST Please see my other note from [facility] for full details. In brief, pt arrives from [facility] as transfer for RIGHT MCA syndrome, NIHSS 17 s/p TPA at OSH. Pt.'s exam is much improved. PT arrives. SBP 158/71. On exam, NIH Stroke Scale Level of Consciousness (1a.): Alert, keenly responsive LOC Questions (1b.): Answers one question correctly LOC Commands (1c.): Performs both tasks correctly Best Gaze (2.): Normal Visual (3.): No visual loss Facial Palsy (4.): Partial paralysis Motor Arm, Left (5a.): Drift Motor Arm, Right (5b.): No drift Motor Leg, Left (6a.): No drift Motor Leg, Right (6b.): No drift Limb Ataxia (7.): Absent Sensory (8.): Ramz-li-ovjazcyl sensory loss, patient feels pinprick is less sharp or is dull on theaffected side, or there is a loss of superficial pain with pinprick, but patient is aware of being touched Best Language (9.): Qcpg-eq-zkgbalko aphasia Dysarthria (10.): Fhel-pl-tyuxkkhg dysarthria, patient slurs at least some words and, at worst, canbe understood with some difficulty Extinction and Inattention (11.) (Formerly Neglect): No abnormality Total: 7 CTH: no acute stroke or hemorrhage. CTAP: no perfusion deficits, M2 occlusion has recanalized A/P: Pt with RIGHT MCA stroke in setting of AF, not on AC, however, pt has LA clip in place. -NCC for post thrombolytic are. -Formal neurology consult -CTH at 18-24H s/p TPA -TTE & Telemetry monitoring -Hold antiplatelet/anticoagulant for 24 hours and resume once repeat imaging shows no hemorrhage. -Check fasting lipid profile, and initiate or increase statin regimen depending on LDL for secondary stroke prevention. - HbA1c goal < 7. -BP goals: Systolic not to exceed 180 post thrombolytic, Diastolic not to exceed 105 post thrombolytic. -PT/OT/speech therapy Raúl Baltazar D.O., ABPN Vascular Neurologist [facility] Work Phone: [phone]) 494-925611-22-2023 Physician Emergency department Note* Jeffry Arreaga MD - 01/06/2023 4:43 AM ESTAssociated Order(s): Critical Care [facility] EMERGENCY DEPARTMENT EMERGENCY MEDICINE NOTE PCP: Moi Gibson MD Encounter Date: 01/06/23 Chief Complaint: No chief complaint on file. History of Presenting Illness: Kevin White is a 82 y.o. male with a past medical history that includes has a past medical history of Arthritis, Back pain, CHF (congestive heart failure) ([facility]), COPD (chronic obstructive pulmonarydisease) ([facility]), Coronary artery disease, Diabetes mellitus ([facility]), Diabetes mellitus, type 2 (HCC), Disease of thyroid gland, GERD (gastroesophageal reflux disease), Hernia of abdominal wall, Hyperlipidemia, Hypertension, Myocardial infarction ([facility]), Sleep apnea, obstructive, and Stroke ([facility]).. HPI Unable to obtain full HPI, ROS, PMH, PSH, Social Hx, Family Hx, Meds, Allergies secondary to confusion vs aphasia + dysarthria. Per EMS: stroke symptoms just CREATIVE INTERN at OSH, recvd tpa, SBP Max 160s ED Course/ Medical Decision Making Medical Decision Making 82-year-old male with a complex past medical history as above presenting with concern for stroke. Around 1230, he reportedly had left upper extremity weakness, dysarthria, aphasia. He received tPA atthe outside hospital. On arrival, he has excellent use of his left arm, though some drift. He has left facial droop, slurred speech. Mild confusion versus aphasia. Stroke alert called, immediately toCT after I consulted with the stroke team. Admitted to the [facility]. Unlikely meningitis, ACS. This patient presented with an acute problem with symptoms that are likely to represent a highly morbid condition. As part of my MDM, I reviewed prior notes including discharge summary from March 13 where patient was seen for A-fib I ordered tests I independently reviewed results of tests I considered ordering additional tests or treatments and I determined that there was no indication for antibiotics given unlikely bacterial infection I had a discussion of the management or test interpretation with them. Shared decision making was used that included eliciting patient and/or family preferences, patient and/or family education, and explaining risks and benefits of management options Stroke team determined not to take him to the IR because the thrombolytic had good success based onhis imaging here. . Disposition: ADMIT Admitting Service Notified at time the disposition was selected for admission. IMPRESSION: 1. Acute ischemic stroke (HCC) 2. Elevated blood pressure reading . ([employer] was used to transcribe this note) ED Course: ED Course as of 01/06/23 0517 WedJan 06, 2023 0443 I consulted w/ the stroke team who recommended straight to ct for perfusion study, likely IR [GS] 0515 Consulted stroke team: admit to [facility] [GS] 0515 CT interpreted by me shows no large intracranial hemorrhage [GS] ED Course User Index [GS] Jeffry Arreaga MD Diagnostics Laboratory (if any, during ED visit): Labs Reviewed - No data to display RADIOGRAPHIC IMAGING (if any, during ED visit): CT Head Without Contrast (Stroke) Final Result 1. Subtle low-density within the llamas radiata on the right. Early area of infarction not excluded. 2. Hyperdensity within the distal right MCA not as conspicuous as on the prior study. 3. Small vessel ischemic changes. 4. Atrophy. Workstation ID: [id number] CT Angiogram Brain With Perfusion (Results Pending) MEDICATIONS ORDERED/GIVEN (if any, during ED visit): Medications labetaloL (NORMODYNE) injection 10 mg (has no administration in time range) Or hydrALAZINE (APRESOLINE) injection 10 mg (has no administration in time range) niCARdipine (CARDENE-IV) 20 mg in 0.9% NaCl 200 mL infusion (has no administration in time range) iopamidoL (ISOVUE-370) 370 mg iodine /mL (76 %) injection 75 mL (75 mL Intravenous Contrast Administered 01/06/23 0452) Review of Systems: Review of Systems Past Medical, Surgical, Family, and Social History: Past Medical History: Past Medical History: Diagnosis Date Arthritis Back pain CHF (congestive heart failure) (HCC) COPD (chronic obstructive pulmonary disease) (HCC) Coronary artery disease Diabetes mellitus (HCC) Diabetes mellitus, type 2 (HCC) Disease of thyroid gland GERD (gastroesophageal reflux disease) Hernia of abdominal wall Hyperlipidemia Hypertension Myocardial infarction (HCC) Sleep apnea, obstructive refuses to use c-pap Stroke (HCC) Past medical history reviewed. Past Surgical History: Past Surgical History: Procedure Laterality Date CABG AVR W/ MAZE Bilateral 08/12/2021 Procedure: CORONARY ARTERY BYPASS GRAFT TIMES THREE (krueger-lad, svg-d1, svg- drca)WITH ENDOVEIN HARVEST, Aortic valve replacement (27mm Paul Inspiris), full LA MAZE ([employer]compass RFA box, RFA HEATHER, cryoRA caval and RAA line), LEFT ATRIAL APPENDAGE LIGATION (40mm AtriCLIP), TRANSESOPHAGEAL ECHOCARDIOGRAM; Surgeon: Luis Beasley MD; Location: [facility] NEURO OR; Service: Cardiothoracic CARDIAC CATHETERIZATION CARDIAC CATHETERIZATION Bilateral 07/01/2021 No intervention, right radial CARDIAC CATHETERIZATION N/A 07/01/2021 Procedure: Coronary Angiogram; Surgeon: Shmuel Villalpando MD; Location: [facility]; Service: Cardiovascular CARDIAC CATHETERIZATION N/A 07/01/2021 Procedure: Right Heart Cath; Surgeon: Shmuel Villalpando MD; Location: [facility]; Service: Cardiovascular CARDIAC CATHETERIZATION N/A 07/01/2021 Procedure: Left Ventriculogram; Surgeon: Shmuel Villalpando MD; Location: [facility]; Service: Cardiovascular CARDIAC CATHETERIZATION N/A 07/01/2021 Procedure: Left Heart Cath; Surgeon: Shmuel Villalpando MD; Location: [facility]; Service: Cardiovascular cataracts removed Bilateral CORONARY STENT PLACEMENT EP - INTERVENTION N/A 08/24/2021 Procedure: Cardioversion/CTA; Surgeon: Abhishek Lauren MD; Location: [facility] EP LAB; Service: Cardiovascular HERNIA REPAIR W/HYDROCELE Right Past surgical history reviewed. Family History: Family History Problem Relation Age of Onset Heart disease Father Family history reviewed. Social History: Social History Socioeconomic History Marital status: Spouse name: Antonella Occupational History Employer: OTHER- Occupation: Retired from [employer] Tobacco Use Smoking status: Never Smokeless tobacco: Never Vaping Use Vaping Use: Never used Substance and Sexual Activity Alcohol use: Not Currently Drug use: Never Social history reviewed. Allergies and Medications: Allergies: No Known Allergies Medications: Patient's Medications New Prescriptions No medications on file Previous Medications AMLODIPINE (NORVASC) 10 MG TABLET Take 1 (one) tablet (10 mg total) by mouth daily Start: 08/25/21. CYANOCOBALAMIN (B-12) 1000 MCG TABLET Take 1 (one) tablet (1,000 mcg total) by mouth daily . DOFETILIDE (TIKOSYN) 250 MCG CAPSULE Take 1 (one) capsule (250 mcg total) by mouth every 12 (twelve) hours . ESOMEPRAZOLE (NEXIUM) 40 MG CAPSULE Take 1 (one) capsule (40 mg total) by mouth every morning before breakfast . FUROSEMIDE (LASIX) 20 MG TABLET Take 2 (two) tablets (40 mg total) by mouth daily . INSULIN GLARGINE (LANTUS SOLOSTAR U-100 INSULIN) 100 UNIT/ML (3 ML) INPN Inject 22 (twenty two) Units under the skin daily with dinner . LEVOTHYROXINE (SYNTHROID, LEVOTHROID) 175 MCG TABLET Take 1 (one) tablet (175 mcg total) by mouth daily . LISINOPRIL (PRINIVIL,ZESTRIL) 10 MG TABLET Take 1 (one) tablet (10 mg total) by mouth daily with lunch Start: 08/25/21. METFORMIN (GLUCOPHAGE-XR) 500 MG 24 HR TABLET Take 1 (one) tablet (500 mg total) by mouth 2 (two) times a day . POTASSIUM CHLORIDE SA (K-DUR,KLOR-CON) 20 MEQ TABLET Take 1 (one) tablet (20 mEq total) by mouth daily . ROSUVASTATIN (CRESTOR) 20 MG TABLET Take 1 (one) tablet (20 mg total) by mouth nightly . TAMSULOSIN (FLOMAX) 0.4 MG CAPSULE Take 1 (one) capsule (0.4 mg total) by mouth daily . THERAPEUTIC MULTIVITAMIN (THERAGRAN) TABLET Take 1 (one) tablet by mouth daily . TRAZODONE (DESYREL) 50 MG TABLET Take 0.5 (one-half) tablet (25 mg total) by mouth nightly as needed . Modified Medications No medications on file Discontinued Medications No medications on file Physical Exam: Vital Signs There were no vitals taken for this visit. Physical Exam Vitals and nursing note reviewed. Constitutional: General: He is not in acute distress. Appearance: He is not toxic-appearing. HENT: Head: Normocephalic. Right Ear: External ear normal. Left Ear: External ear normal. Eyes: General: No scleral icterus. Conjunctiva/sclera: Conjunctivae normal. Cardiovascular: Pulses: Normal pulses. Musculoskeletal: General: No swelling or tenderness. Cervical back: Normal range of motion and neck supple. Right lower leg: No edema. Left lower leg: No edema. Pulmonary: Effort: Pulmonary effort is normal. Breath sounds: No stridor. Abdominal: General: There is no distension. Palpations: Abdomen is soft. There is no mass. Tenderness: There is no abdominal tenderness. There is no guarding or rebound. Skin: Capillary Refill: Capillary refill takes less than 2 seconds. Findings: No rash. Neurological: General: No focal deficit present. Mental Status: He is disoriented. Cranial Nerves: Cranial nerve deficit present. Sensory: No sensory deficit. Motor: Weakness present. Psychiatric: Mood and Affect: Mood normal. Behavior: Behavior normal. NIH Scale: LOC: 0 - alert LOC Questions: 1 - answers one correctly LOC Commands: 0 - performs both correctly Best gaze: 0 - normal Vision: 0 - no visual loss Facial Palsy: 2 - partial Left arm: 1 - drift Right arm; 0 - no drift Left le - no drift Right le - no drift Limb ataxia: 0 - absent Sensation: 0 - normal Best language: 1 - mild to moderate aphasia Dysarthria: 1 - mild to moderate dysarthria Extinction and inattention: 0 - no neglect Stroke Scale: 6 Vital Signs During ED Visit (as charted by nursing) No data found. PROCEDURES (if any, during ED visit): Critical Care Performed by: Jeffry Arreaga MD Authorized by: Jeffry Arreaga MD Total critical care time: 35 minutes Critical care time was exclusive of separately billable procedures and treating other patients and teaching time. 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 Critical care was time spent personally by me on the following activities: development of treatmentplan with patient or surrogate, discussions with consultants, interpretation of cardiac output measurements, evaluation of patient's response to treatment, examination of patient, obtaining history from patient or surrogate, ordering and performing treatments and interventions, ordering and review of radiographic studies, pulse oximetry, re-evaluation of patient's condition and review of old charts. 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 Patient information obtained from [employer] . FAMILY NOTIFICATION: Per medic, patient's spouse will be coming to [facility] later this morning. Spouse is Anamaria White (P: [phone]). ADDITIONAL INFORMATION: SHARRI will assist as needed. [id number] Emergency department Note* Drake Granados - 01/06/2023 4:24 AM EST Stroke Alert (1) called per dr arreaga eta [address] then to cart 55 [facility] 0003 mf25 [id number] Consult note* Vanda Ramos CNP - 01/06/2023 4:16 AM EST Stroke Team RACIEL Initial Triage Note [facility] 01/06/2023 Vanda Ramos CNP [facility] Patient: Kevin White Date of : 1940 (82 y.o. male) Referring Provider: Refer to consult order in electronic medical record PCP: Moi Gibson MD ASSESSMENT: 82 y.o. male with history of 82 y.o. male with history of HTN, HLD, NAJMA, DM, and Afib no longer on AC after cardioversion and LA clipping > 1 year ago. [facility] from [facility] ED with a right MCA stroke syndrome, NIHSS 15. [facility] imaging with distal right MCA occlusion. Patient treated with IV alteplase, then transported to [facility] for thrombectomy evaluation. CTA/P at [facility] showing recanalization of right M2 occlusion. Exam improved upon arrival to [facility], NIHSS 7. BP 158/71 PLAN: R MCA Stroke Etiology: Uncertain IV thrombolytic treatment with alteplase (tPA), bolus documented at 0203. Not a candidate for YOVANY due to lack of vascular target. Previous noted right M2 occlusion recanalized on repeat CTA imaging. Attending Service will need to electronically order a Neurology consult for ongoing inpatient Neurology care. Disposition: To be determined by ED Attending, NCC Attending and YOVANY Attending collaboration. Admission Order Set: To be completed by ED Attending, NCC Attending and YOVANY Attending collaboration. Other Order Sets: Acute Ischemic Stroke s/p Thrombolytic/Vascular Intervention orders completed. Testing: CT head 18-30 hr post procedure safety scan timed for 2100 on 01/06 Echo Labs: A1c, Lipid panel (Fasting) Anti-thrombotic: NONE for now. NO anti-platelet, pharmacologic DVT prophylaxis or anticoagulation x24 hours post procedure. Anti-lipid Agent: Lipitor (atorvastatin) 40 mg (substitute for home dose Crestor 20 mg) BP goal: BP goal: Less than 180/105. Glucose Goal: Normoglycemia/ A1c less than 6.5. Attending Service to manage. Tobacco: Counseled to not smoke/use tobacco. Attending Service to manage. Therapy: PT, OT evaluation. ST evaluation for swallow and speech/language/cognition. DVT Prophylaxis: SCDs and TEDs can be started immediately. NO pharmacologic DVT prophylaxis x 24 hours post procedure. Admitted with these risk variables:Cerebral Infarction NIHSS = 7. Please see assessment and plan for further details. Answered questions and rediscussed plan at length with Patient. Discussed and formulated plan with collaborating neurologist, Dr. Baltazar. Discussed plan with other teams' providers, specifically ED Attending, Dr. Arreaga. Critical Care Time Statement: I spent a total of at least 30 minutes providing critical care to this patient, either in the patient's room or on the patient's hospital unit. Refer to HPI, assessment and plan for relevant details. DIAGNOSTIC TESTING SUMMARY: Resulted Testing: (MRI/CT/XR, EEG, EMG, CSF, Cardiac, Labs) I independently reviewed the CT images and agree with the interpretation(s) with the following comments: [facility] CT head: Hypoattenuation within the right M2 segment, suspicion for thrombus. [facility] CTA head/neck: Distal right MCA superior division occlusion. Dominant right vertebral artery with mod-severe stenosis throughout V1-V2, and V4 segments. Left vertebral artery diffusely hypoplastic. Left V4 segment occlusion with faint contrast seen in the left PICA. Calcified plaque to bilateral carotid bifurcations, left > right. Approximately 40-50% within the left carotid bifurcation. [facility] CT head: Subtle hypodense area involving the right llamas radiate. Previous seen hyperdensity within the distal R MCA branch not as conspicuous. CTA brain perfusion: Recanalization of previous noted right MCA occlusion. Perfusion imaging without defect. Lab Results Component Value Date HGBA1C 6.9 (H) 03/09/2022 SUBJECTIVE: Chief Complaint/Reason for Consult: R MCA Stroke Informant(s): Patient, Care Team/Chart History of Present Illness: Kevin White is a 82 y.o. male with past medical history of HTN, HLD, NAJMA, DM, and Afib no longer on AC after cardioversion and LA clipping > 1 year ago. He presented to [facility] on 01/06/2023 as a transfer from [facility] ED with a right MCA stroke syndrome. LKW approximately 12AM this morning, (01/06). About 30 minutes he went into the restroom when his heard him fall. She discovered him just outside of the restroom, on his knees, confused, with left sided weakness. Denied hitting his head or LOC. EMS was called, he was taken to [facility] ED where he was evaluated via tele-stroke network by Neurologist, Dr. Baltazar. Presentation consistent with R MCA stroke syndrome, NIHSS 15. BP 177/88, glucose 152. After discussion with patient and , the decision was made to treat with IV thrombolytics. [facility] imaging showing distal right MCA occlusion.Patient STAT transfer to [facility] for thrombectomy consideration. Upon arrival to [facility], neurological exam significantly improved, NIHSS 7. Patient alert, oriented to himself, age, , and situation. Continued left facial asymmetry, left arm drift but does not hit bed, moderate dysarthria, mild-mod aphasia, and sensory deficit to LUE. BP 168/73. Patient denies headache or nausea. Repeat imaging without LVO. Patient being admitted for post thrombolytic care and further stroke workup. Times: Last known well (date & time): 0000, 01/06 Stroke Alert called: 5510 Stroke Team RACIEL at bedside: CREATIVE INTERN Patient arrival: 0438 Treatments: See A&P Review of Systems: All systems reviewed and negative except pertinent positives and negatives documented in the History of Present Illness (HPI). History: Past Medical History: Diagnosis Date Arthritis Back pain CHF (congestive heart failure) (HCC) COPD (chronic obstructive pulmonary disease) (HCC) Coronary artery disease Diabetes mellitus (HCC) Diabetes mellitus, type 2 (HCC) Disease of thyroid gland GERD (gastroesophageal reflux disease) Hernia of abdominal wall Hyperlipidemia Hypertension Myocardial infarction (HCC) Sleep apnea, obstructive refuses to use c-pap Stroke (HCC) Past Surgical History: Procedure Laterality Date CABG AVR W/ MAZE Bilateral 08/12/2021 Procedure: CORONARY ARTERY BYPASS GRAFT TIMES THREE (krueger-lad, svg-d1, svg- drca)WITH ENDOVEIN HARVEST, Aortic valve replacement (27mm Paul Inspiris), full LA MAZE (Encompass RFA box, RFA HEATHER, cryoRA caval and RAA line), LEFT ATRIAL APPENDAGE LIGATION (40mm AtriCLIP), TRANSESOPHAGEAL ECHOCARDIOGRAM; Surgeon: Luis Beasley MD; Location: [facility]; Service: Cardiothoracic CARDIAC CATHETERIZATION CARDIAC CATHETERIZATION Bilateral 07/01/2021 No intervention, right radial CARDIAC CATHETERIZATION N/A 07/01/2021 Procedure: Coronary Angiogram; Surgeon: Shmuel Villalpando MD; [facility]; Service: Cardiovascular CARDIAC CATHETERIZATION N/A 07/01/2021 Procedure: Right Heart Cath; Surgeon: Shmuel Villalpando MD; [facility]; Service: Cardiovascular CARDIAC CATHETERIZATION N/A 07/01/2021 Procedure: Left Ventriculogram; Surgeon: Shmuel Villalpando MD; Location: [facility]; Service: Cardiovascular CARDIAC CATHETERIZATION N/A 07/01/2021 Procedure: Left Heart Cath; Surgeon: Shmuel Villalpando MD; Location: [facility]; Service: Cardiovascular cataracts removed Bilateral CORONARY STENT PLACEMENT EP - INTERVENTION N/A 08/24/2021 Procedure: Cardioversion/CTA; Surgeon: Abhishek Lauren MD; Location: [facility] EP LAB; Service: Cardiovascular HERNIA REPAIR W/HYDROCELE Right Social History: reports that he has never smoked. He has never used smokeless tobacco. He reports that he does not currently use alcohol. He reports that he does not use drugs. Family History Problem Relation Age of Onset Heart disease Father Additional History Comments: I was unable to obtain and update history details due to patient's altered mental status and there was no knowledgeable family available. Allergies: Patient has no known allergies. HOME Medications: No outpatient medications have been marked as taking for the 01/06/23 encounter (Hospital Encounter). HOSPITAL Infusions: HOSPITAL Scheduled Medications: HOSPITAL PRN Medications: OBJECTIVE: Physical Examination: BP (!) 156/91 Pulse 77 Temp 98.1 F (36.7 C) (Oral) Resp 18 SpO2 98% MCCLOUD: DNFC: Does Not Follow Commands COOPER: Unable to Assess GENERAL: General Appearance: In NAD Eyes: See pupils below Ears: See hearing below Neck: Supple Respiratory Effort: Normal Extremities: No edema Skin: No rashes visualized MENTAL STATUS: Alertness, Attention Span & Concentration: Normal Language: Moderate aphasia Speech: Moderate dysarthria Orientation: Oriented to name, place, time (age), not oriented to date (month/year). Memory, Recent & Remote: Impaired Fund of Knowledge: Impaired CRANIAL NERVES: II - Visual Juarez: Normal II, III - Pupils: PERRL III, IV, - Eye Movements: EOMI, left eye ptosis. V - Facial Sensation: Normal VII - Face Symmetry and Strength: Left lower facial droop VIII - Hearing: Normal IX, X - Palate: Normal XI - Shoulder Shrug: DNFC XII - Tongue Protrusion: Left deviation COORDINATION & GROSS MOTOR: Abnormal Movements: None Coordination Xqzewb-ak-Zqry: Left upper limb decreased in proportion to weakness Coordination: Mozh-Agjg-Uqti:DNFC Rapid Alternating Movements: Decreased left upper limb Drift: Left upper limb Tone: Normal Bulk: Normal MOTOR - MUSCLE STRENGTH: Patient with difficulty understanding instructions for assessing knee extension/flexion Muscle Strength Right Left 5 Elbow Flexion (Biceps) 4+ 5 Elbow Extension (Triceps) 4- 5 Hip Flexion (Iliopsoas) 5 COOPER Knee Extension (Quads) COOPER COOPER Knee Flexion (Hamstrings) COOPER 5 Dorsiflexion (Anterior Tibialis) 4 MOTOR MCCLOUD: 5 Normal (Normal Power) 4 Mild Weakness (Movement against moderate resistance over a full range of motion) 3 Moderate Weakness (Movement against gravity over almost full range of motion) 2 Severe Weakness (Movement with gravity eliminated over almost full range of motion) 1 Trace Movement (flicker of contraction visible or palpable) 0 No Movement (No contraction visible or palpable) COOPER Unable to Assess SENSATION: Fine Touch: Decreased left upper extremity OTHER: Stroke Assessment - 01/06/23 4925 NIH Stroke Scale Level of Consciousness (1a.) 0 LOC Questions (1b.) 1 LOC Commands (1c.) 0 Best Gaze (2.) 0 Visual (3.) 0 Facial Palsy (4.) 2 Motor Arm, Left (5a.) 1 Motor Arm, Right (5b.) 0 Motor Leg, Left (6a.) 0 Motor Leg, Right (6b.) 0 Limb Ataxia (7.) 0 Sensory (8.) 1 Best Language (9.) 1 Dysarthria (10.) 1 Extinction and Inattention (11.) (Formerly Neglect) 0 Total 7 Modified Cira Scale 0 No Symptoms at all 1 No Signficant disability despite symptoms. Able to carry out all usual duties and activities 2 Slight disability. Unable to carry out all previous activities, but able to look after own affairs without assistance 3 Moderate disability. Requiring some help, but able to walk without assistance 4 Moderately severe disability. Unable to walk without assistance. Unable to attend all bodily needs without assistance. 5 Severe disability. Bedridden, incontinent, and requiring constant nursing care and attention 6 Modified Glidden Score: 0 Associated attestation - Steve Ruffin MD - 01/06/2023 11:15 AM EST I saw and evaluated this patient today with advanced practice provider and agree with the documented assessment and plan except/and as noted below. 82-year-old male is admitted to hospital after diagnosis of right MCA stroke that was treated with thrombolysis with alteplase. There was a right M2 occlusion that was identified but on subsequent scans this had recanalized. Patient reports significant improvement in symptoms but continues to be weak and numb on left side. Neurological examination demonstrates alert and oriented male with no aphasia. There is mild to moderately severe dysarthria. There is no gaze deviation there is no hemianopia. There is left facial weakness upper motor neuron type which is fairly prominent. Left hand shows minimal movements but he is able to hold left upper extremity against gravity without any significant drift. There is no drift in left leg. There is sensory loss to touch and pain on left. There is Babinski on left. There is no ataxia. NIH Stroke Scale Interval: Other (Comment) ([facility] admission) Level of Consciousness (1a.): Alert, keenly responsive LOC Questions (1b.): Answers both questions correctly LOC Commands (1c.): Performs both tasks correctly Best Gaze (2.): Normal Visual (3.): No visual loss Facial Palsy (4.): Partial paralysis Motor Arm, Left (5a.): Drift Motor Arm, Right (5b.): No drift Motor Leg, Left (6a.): No drift Motor Leg, Right (6b.): No drift Limb Ataxia (7.): Absent Sensory (8.): Wixc-lb-pliurjlh sensory loss, patient feels pinprick is less sharp or is dull on theaffected side, or there is a loss of superficial pain with pinprick, but patient is aware of being touched Best Language (9.): No aphasia Dysarthria (10.): Vilj-yg-oqsehgqq dysarthria, patient slurs at least some words and, at worst, canbe understood with some difficulty Extinction and Inattention (11.) (Formerly Neglect): No abnormality Total: 5 I reviewed the images of CT head, CT angiography of head neck and CT perfusion brain and agree withthe documented interpretation below. Assessment and plan 82-year-old male with acute ischemic right MCA territory stroke treated with IV thrombolysis Etiology: Cardioembolic related to atrial fibrillation although note is made of LA clipping. No antithrombotic agents for 24 hours after IV thrombolysis Obtain CT head at 18 to 30 hours post thrombectomy Despite the fact that this patient has had left atrial appendage occlusion, recurrent cardioembolicevent is suggestive of need for ongoing anticoagulation. Given the findings of his echocardiogram today, he will be a candidate for anticoagulation with DOAC such as Eliquis. Timing will be decided based on findings of follow-up CT head. Rest of the management strategies as below. We will follow [employer] Work Phone: [phone] 389-889411-21-2023 History of Present illness Narrative* Ira Ricci CNP - 01/05/2023 1:30 PM EST Electrophysiology Clinic Note Patient Name: Kevin White MR #: [id number] : 1940 Physicians: Moi Gibson MD (Family); No ref. provider found (Referring) Assessment/Problem List: +Atrial fibrillation Previous antiarrhythmic drugs: Amiodarone, discontinued December 2021. Started on Tikosyn February 2022, remains on 250 mcg every 12 hours Previous cardioversions: 03/10/22, 08/24/21 Previous ablations: History of full left atrial maze with an encompass RF box lesion, RF left atrial appendage lesion, cryo right atrial caval lesion, and cryo R atrial appendage line/ligation left atrial appendage with [address] Beasley 07/23/21 [id number] score: 7 (see above, has Atriclip), CCTA 08/23/21 shows appropriate appendage occlusion LA Size: Severely enlarged per echo October 2021 +Mobitz I during sleep hours +s\p AVR +CAD s\p CABG +TIA +60% LVEF Plan: QTC today 444 ms. He is in NSR. Denies AF recurrence, does report dyspnea with exertion but was diagnosed with URI a few weeks ago and taking antibiotics for it. Discussed if his dyspnea does not improve, can consider holter monitor to assess AF burden. Will update BMP + Mag level today. Continue Dofetilide 250 mcg every 12 hours Follow up with EP RN in 3 months for EKG & lab work. Follow up with EP provider in 6 months. Chief complaint/reason for visit: AF History of Present Illness: Kevin White is a 82 y.o. y/o male who presents today for follow up regarding AF. Today, he is doing well. Denies knowledge of AF recurrence. Tolerating Tikosyn well. He does feel short of breath with exertion starting a few weeks ago, he was recently diagnosed with an upper respiratory infection and is currently on antibiotics. Denies palpitations. EKG: Normal sinus rhythm heart rate 72 bpm, QRS 102 ms, QTc 444 ms Cardiac studies: Reviewed History: Past Medical History: Diagnosis Date Arthritis Back pain CHF (congestive heart failure) (HCC) COPD (chronic obstructive pulmonary disease) (HCC) Coronary artery disease Diabetes mellitus (HCC) Diabetes mellitus, type 2 (HCC) Disease of thyroid gland GERD (gastroesophageal reflux disease) Hernia of abdominal wall Hyperlipidemia Hypertension Myocardial infarction (HCC) Sleep apnea, obstructive refuses to use c-pap Stroke (HCC) Past Surgical History: Procedure Laterality Date CABG AVR W/ MAZE Bilateral 08/12/2021 Procedure: CORONARY ARTERY BYPASS GRAFT TIMES THREE (krueger-lad, svg-d1, svg- drca)WITH ENDOVEIN HARVEST, Aortic valve replacement (27mm Paul Inspiris), full LA MAZE (Encompass RFA box, RFA HEATHER, cryoRA caval and RAA line), LEFT ATRIAL APPENDAGE LIGATION (40mm AtriCLIP), TRANSESOPHAGEAL ECHOCARDIOGRAM; Surgeon: Luis Beasley MD; Location: [facility]; Service: Cardiothoracic CARDIAC CATHETERIZATION CARDIAC CATHETERIZATION Bilateral 07/01/2021 No intervention, right radial CARDIAC CATHETERIZATION N/A 07/01/2021 Procedure: Coronary Angiogram; Surgeon: Shmuel Villalpando MD; Location: [facility]; Service: Cardiovascular CARDIAC CATHETERIZATION N/A 07/01/2021 Procedure: Right Heart Cath; Surgeon: Shmuel Villalpando MD; Location: [facility]; Service: Cardiovascular CARDIAC CATHETERIZATION N/A 07/01/2021 Procedure: Left Ventriculogram; Surgeon: Shmuel Villalpando MD; Location: [facility]; Service: Cardiovascular CARDIAC CATHETERIZATION N/A 07/01/2021 Procedure: Left Heart Cath; Surgeon: Shmuel Villalpando MD; Location: [facility]; Service: Cardiovascular cataracts removed Bilateral CORONARY STENT PLACEMENT EP - INTERVENTION N/A 08/24/2021 Procedure: Cardioversion/CTA; Surgeon: Abhishek Lauren MD; Location: [facility] EP [facility]; Service: Cardiovascular HERNIA REPAIR W/HYDROCELE Right Family History Problem Relation Age of Onset Heart disease Father Social History Socioeconomic History Marital status: Spouse name: Antonella Occupational History Employer: OTHER- Occupation: Retired from [employer] Tobacco Use Smoking status: Never Smokeless tobacco: Never Vaping Use Vaping Use: Never used Substance and Sexual Activity Alcohol use: Not Currently Drug use: Never Allergy Information I have reviewed the patient's allergies. Patient has no known allergies. Home Medications: Outpatient Medications as of 01/05/2023 Medication Sig amLODIPine (NORVASC) 10 MG tablet Take 1 (one) tablet (10 mg total) by mouth daily Start: 08/25/21. cyanocobalamin (B-12) 1000 MCG tablet Take 1 (one) tablet (1,000 mcg total) by mouth daily . dofetilide (TIKOSYN) 250 MCG capsule Take 1 (one) capsule (250 mcg total) by mouth every 12 (twelve) hours . esomeprazole (NEXIUM) 40 MG capsule Take 1 (one) capsule (40 mg total) by mouth every morning before breakfast . furosemide (LASIX) 20 MG tablet Take 2 (two) tablets (40 mg total) by mouth daily . insulin glargine (Lantus Solostar U-100 Insulin) 100 unit/mL (3 mL) InPn Inject 22 (twenty two) Units under the skin daily with dinner . levothyroxine (SYNTHROID, LEVOTHROID) 175 MCG tablet Take 1 (one) tablet (175 mcg total) by mouth daily . lisinopriL (PRINIVIL,ZESTRIL) 10 MG tablet Take 1 (one) tablet (10 mg total) by mouth daily with lunch Start: 08/25/21. metFORMIN (GLUCOPHAGE) 500 MG tablet Take 1 (one) tablet (500 mg total) by mouth 2 (two) times a day with meals Hold until repeat chem 7 . potassium chloride SA (K-DUR,KLOR-CON) 20 MEQ tablet Take 1 (one) tablet (20 mEq total) by mouth daily . rosuvastatin (CRESTOR) 40 MG tablet Take 0.5 (one-half) tablet (20 mg total) by mouth daily . tamsulosin (FLOMAX) 0.4 mg capsule Take 1 (one) capsule (0.4 mg total) by mouth daily . therapeutic multivitamin (THERAGRAN) tablet Take 1 (one) tablet by mouth daily . traZODone (DESYREL) 50 MG tablet Take 0.5 (one-half) tablet (25 mg total) by mouth nightly as needed . Review of Systems All system(s) were reviewed. Pertinent positive and negative findings are noted in the HPI. All system negative unless otherwise noted in the HPI Physical Examination: Vital Signs: BP (!) 149/82 (BP Location: Left arm, Patient Position: Sitting) Pulse 68 Ht 6' Wt 111.6 kg (246 lb) SpO2 95% BMI 33.36 kg/m Physical Exam: General: No acute distress, alert, and oriented x3. HEENT: Normocephalic Cardiovascular: Regular rate and rhythm. No clicks, rubs, murmurs, or gallops noted. Respiratory: Clear to auscultation bilaterally without wheezes, rhonchi, or crackles noted. Abdominal: Soft, nontender, non distended. Extremities : No peripheral edema noted. Skin: Intact, no rashes noted. Psych: Normal mood and affect. Ira Keiry, [place], [employer]TER [employer] documented in this [id number] Instructions* Patient Instructions* Christiane Puckett MA - 01/04/2023 9:14 AM EST It was our pleasure to see you in EP Clinic today. Please contact Mireille RN at [phone] or TAI Lauren at [phone] with questions, concerns, or if you need prescription refills before your next appointment. documented in this [id number] History of Present illness Narrative* Leonidas Nunes RN - 10/01/2022 1:19 PM EDT Pt here for Sotalol follow up, pt doing well on Sotalol and in NSR today. Pt sent to lab for lab work. documented in this [id number] History of Present illness Narrative* Gerardo Roe MD - 05/07/2022 10:29 AM EDT Assessment and Plan 1. Type 2 diabetes mellitus without retinopathy (HCC) -no diabetic retinopathy both eyes 2. Vitreous floaters of both eyes -Stable both eyes 3. Pseudophakia of both eyes -early posterior capsular opacity (PCO) right eye Plan: -Continue blood sugar and blood pressure control Follow-up 1 year with dilated fundus exam both eyes / sooner as needed I have confirmed and edited as necessary the relevant ophthalmic history, ROS, and the neuro exam findings as obtained by others. I have seen and examined Kevin White. I have discussed the case and the management of this patient's care with the Resident/Fellow, if applicable. I also have reviewed and agree with the assessment and plan as stated above and agree withall of its relevant components. Gerardo Roe MD [facility] History of Present illness Narrative* Shmuel Villalpando MD - 04/15/2022 9:40 AM EST CARDIOLOGY PROGRESS NOTE [facility] [address] [facility] [address] [facility] [id number] Physicians: Naveen Rasmussen MD (Family); No ref. provider found (Referring) Subjective: Kevin White is a 81 y.o. male seen in the office today for No chief complaint on file. . HPI: Patient presents in cardiovascular follow-up. 81-year-old gentleman with history of severe symptomatic aortic valve stenosis, history of short-term memory loss, history of chronic persistent atrial fibrillation, and a history of TIA. Patient hasunderlying obstructive sleep apnea noncompliant with CPAP therapy. Patient has had previous catheter-based intervention to the right coronary artery and posterior circulations. Patient had presented with severe symptomatic aortic valve stenosis and as part of the multidisciplinary heart team meeting underwent OHS at [place] by Dr. Beasley with the operative procedure (July 2021) consisting of surgical aortic valve replacement with a 27mm Paul Inspiris pericardial valveand three-vessel bypass grafting using a left internal mammary artery to the left anterior descending, saphenous vein graft to the first diagonal, and a saphenous vein graft to the distal right conduit. Patient had full left atrial maze and ligation of left atrial appendage with a 40mm AtriClip. Patient underwent cardioversion to sinus rhythm at discharge. Patient had rate presented with atrial fibrillation with slow ventricular rate February 2022 and wasinitiated on Tikosyn loading with cardioversion to sinus rhythm. Patient follows with EP services in the ambulatory setting. 2D echocardiogram October 2021 demonstrated an LV ejection fraction of 60%. Patient had normal appearance of the surgical aortic valve bioprosthesis with no stenosis with a mean gradient 8, a dimensionless index of 0.48 and no prosthetic aortic valve regurgitation. CT HEATHER study August 2021 demonstrated appropriate positioning of the atriclip near the base of the left atrial appendage with completely occluded left atrial appendage. In the office patient states he feels reasonably well from a cardiovascular viewpoint. With maintenance of sinus rhythm patient and have noticed he has more energy and is much less fatigued. He does note mild symptoms of dyspnea walking up inclines or half a flight of steps. Overall eating a fairly sedentary lifestyle. He is not describing shortness of breath or chest discomfort with activities of daily living. No PND or orthopnea. No syncope. Patient has noticed ecchymosis and somewhat unsteady gait. Assessment/plan: Patient is reasonably well compensated at the present time. Electrocardiogram today reveals sinus rhythm. Current exam does not suggest evidence for cardiac decompensation. Patient and desire toavoid oral anticoagulation (ecchymosis and unsteady gait) and with HEATHER CT study demonstrating occluded left atrial appendage following clip placement we discontinued his Coumadin. Chronic disease management and risk factor modification were reviewed. Assessment & Plan: No problem-specific Assessment & Plan notes found for this encounter. EKG Interpretation: normal sinus rhythm, Nonspecific ST changes Follow Up Ordered: No follow-ups on file. Patient's Medications New Prescriptions No medications on file Previous Medications AMLODIPINE (NORVASC) 10 MG TABLET Take 1 (one) tablet (10 mg total) by mouth daily Start: 08/25/21. CYANOCOBALAMIN (B-12) 1000 MCG TABLET Take 1 (one) tablet (1,000 mcg total) by mouth daily . DOFETILIDE (TIKOSYN) 250 MCG CAPSULE Take 1 (one) capsule (250 mcg total) by mouth every 12 (twelve) hours . ESOMEPRAZOLE (NEXIUM) 40 MG CAPSULE Take 1 (one) capsule (40 mg total) by mouth every morning before breakfast . FUROSEMIDE (LASIX) 20 MG TABLET Take 2 (two) tablets (40 mg total) by mouth daily . INSULIN GLARGINE (LANTUS SOLOSTAR U-100 INSULIN) 100 UNIT/ML (3 ML) INPN Inject 22 (twenty two) Units under the skin daily with dinner . LEVOTHYROXINE (SYNTHROID, LEVOTHROID) 175 MCG TABLET Take 1 (one) tablet (175 mcg total) by mouth daily . LISINOPRIL (PRINIVIL,ZESTRIL) 10 MG TABLET Take 1 (one) tablet (10 mg total) by mouth daily with lunch Start: 08/25/21. METFORMIN (GLUCOPHAGE) 500 MG TABLET Take 1 (one) tablet (500 mg total) by mouth 2 (two) times a day with meals Hold until repeat chem 7 . POTASSIUM CHLORIDE SA (K-DUR,KLOR-CON) 20 MEQ TABLET Take 1 (one) tablet (20 mEq total) by mouth daily . ROSUVASTATIN (CRESTOR) 40 MG TABLET Take 0.5 (one-half) tablet (20 mg total) by mouth daily . TAMSULOSIN (FLOMAX) 0.4 MG CAPSULE Take 1 (one) capsule (0.4 mg total) by mouth daily . THERAPEUTIC MULTIVITAMIN (THERAGRAN) TABLET Take 1 (one) tablet by mouth daily . TRAZODONE (DESYREL) 50 MG TABLET Take 1 (one) tablet (50 mg total) by mouth nightly as needed . WARFARIN (COUMADIN) 5 MG TABLET Take 1 (one) tablet (5 mg total) by mouth daily . Modified Medications No medications on file Discontinued Medications No medications on file Histories: The past history, social and family history, and allergies were reviewed and updated as needed. ROS Objective: Physical Exam Constitutional: Appearance: Normal appearance. He is well-developed. HENT: Head: Normocephalic and atraumatic. Right Ear: External ear normal. Left Ear: External ear normal. Nose: Nose normal. Eyes: Pupils: Pupils are equal, round, and reactive to light. Neck: Thyroid: No thyroid mass. Vascular: No carotid bruit, hepatojugular reflux or JVD. Cardiovascular: Rate and Rhythm: Normal rate and regular rhythm. Pulses: Intact distal pulses. Heart sounds: Normal heart sounds. Comments: Physiologic S1. Prosthetic S2. No diastolic murmur. Apical impulse diffuse although does not appear like displaced. Jugular venous pressure does not appear elevated Pulmonary: Effort: Pulmonary effort is normal. Breath sounds: Normal breath sounds. Comments: No rales or wheezes Abdominal: General: Bowel sounds are normal. Palpations: Abdomen is soft. Tenderness: There is no abdominal tenderness. Musculoskeletal: General: Normal range of motion. Cervical back: Normal range of motion and neck supple. No edema. No muscular tenderness. Comments: Venous stasis changes bilaterally Skin: General: Skin is warm and dry. Nails: There is no clubbing. Neurological: Mental Status: He is alert and oriented to person, place, and time. Cranial Nerves: No cranial nerve deficit. Deep Tendon Reflexes: Reflexes are normal and symmetric. Psychiatric: Speech: Speech normal. Behavior: Behavior normal. I personally reviewed and verified the review of systems obtained by the certified medical transcriptionist. Vitals: Vitals: 04/15/22 0929 04/15/22 0932 BP: (!) 144/78 (!) 145/76 BP Location: Left arm Left arm Pulse: 85 SpO2: 94% Weight: 115.1 kg (253 lb 12.8 oz) 1. Paroxysmal atrial fibrillation (HCC) 2. Primary hypertension 3. Hyperlipidemia, unspecified hyperlipidemia type 4. Coronary artery disease involving [place] coronary artery of [place] heart, unspecified whether angina present 5. Nonrheumatic aortic valve stenosis 6. Aortic stenosis, severe 7. Type 2 diabetes mellitus without complication, without long-term current use of insulin (HCC) 8. NAJMA (obstructive sleep apnea) Shmuel Villalpando MD documented in this [id number] Instructions* Patient Instructions* Flaquita Victor MA - 04/15/2022 9:32 AM EST ..How to contact your Care Team: Provider: Shmuel Villalpando MD Nurse: Juliana Bethea RN In case of an emergency please call 911. REFILLS: When in need for refills please call your care team or the office at [phone]. Please include medication name, pharmacy name, and specify 30-day or 90-day supply. Please check with your pharmacy within 24 hours of request for your refill. You must follow up as directed to continue current refills. Thank you documented in this [id number] Note* Plan of Care - Kassidy Escalona RN - 03/13/2022 3:20 PM EST Problem: Actual or potential alteration in health Goal: Absence of healthcare acquired conditions Outcome: Partially Met Goal: Knowledge of Interdisciplinary Plan of Care Outcome: Partially Met Goal: Knowledge of Enviroment Outcome: Partially Met [id number] Miscellaneous Notes* Plan of Care - Kassidy Escalona RN - 03/13/2022 3:20 PM EST Problem: Actual or potential alteration in health Goal: Absence of healthcare acquired conditions Outcome: Partially Met Goal: Knowledge of Interdisciplinary Plan of Care Outcome: Partially Met Goal: Knowledge of Enviroment Outcome: Partially Met * Sign Off Note - Ira Ricci CNP - 03/13/2022 10:05 AM EST Electrophysiology Progress Note [facility] EP Sign-Off Discharge Medications: Continue current cardiac medications at current doses, unlimited duration. EP medications: tikosyn 250 mcg q 12 hours, warfarin x 30 days following DCCV on 03/10/22 Follow-up Imaging, Testing: A 30 day ESPERANZA will be mailed to patient. Follow-up Appointments: Follow up with EP in 3-4 months Additional Instructions Reviewed with Patient and/or Family: Compliance with follow-up. Compliance with medications. Assessment: Kevin White is a 81 year old male with: + PeAF with slow ventricular rates Hx full left atrial Maze with an (EnCompass radiofrequency box lesion, radiofrequency left atrial appendage lesion, cryo right atrial caval lesion, and a cryo right atrial appendage line)/ Ligation left atrial appendage with a [address] Beasley on 07/23/2021. Patient not interested in ablation, previously on amiodarone which was discontinued 12/24/21. Presents for tikosyn loading On coumadin. #s/p AVR #Intermittent Mobitz I block on telemetry during sleep hours Beta fredy discontinued #CAD s/p CABG 07/2021 #Hx TIA #60% LVEF #ECHO: 10/2021 Summary 1. Left ventricular chamber dimension is normal. 2. Left ventricular systolic function is normal with an ejection fraction by Biplane Method of Discs of 60 %. 3. Normal appearance of the aortic valve bioprosthesis. The valve is well-seated. There is no bioprosthetic aortic valve stenosis with a peak velocity of 205 cm/s, mean gradient of 8 mmHg, and aortic valve area of 1.8 cm2. Dimensionless index 0.48.. 4. There is no aortic valve regurgitation. Plan 03/09/22: -Patient presents for tikosyn loading. No need for thrombus study as patient has atriclip placement, CT confirms appropriate positioning near base of HEATHER with residual HEATHER stump nonopacified. Appendage appears completely occluded. Patient remains on coumadin, reports therapeutic INRs x 4 weeks. INR2.2 today. -CrCl: 74 ml/min. Will start patient on tikosyn 500 mcg q 12 hours, first dose this evening. -Baseline QTC: 438 ms. -Replace magnesium & potassium prior to starting tikosyn. -Goal K 4.0-4.7, potassium 4.7 today -Goal Mg 2.0-2.2, mag 2.1 today -Obtain ekgs 2-3 hours after every tikosyn dose. -Goal QTC <500 ms 2 hours post dose -Goal ionized calcium >3.5 prior to starting tikosyn. -Call EP QTC >500 ms prior to giving next dose of antiarrythmic medication -Will plan for DCCV tomorrow, 03/10/22. NPO at midnight. -Continue coumadin- pharmacy to dose. Plan 03/10/22: -S\P DCCV today, patient is in NSR. -QTC following dose 1 of tikosyn last evenin ms. Dose 2+3 to be given today. -INR 2.4 this morning. Continue coumadin, pharmacy to dose. Will need coumadin to continue x 30 days post cardioversion despite atriclip. -Goal K 4.0-4.7, potassium 4.2 today -Goal Mg 2.0-2.2, mag 2.2 today -Obtain ekgs 2-3 hours after every tikosyn dose. -Goal QTC <500 ms 2 hours post dose -Call EP QTC >500 ms prior to giving next dose of antiarrythmic medication Plan 03/11/22: -QTC post dose 2 of tikosyn load: 465 ms, post dose 3: 481ms. Dose 4+5 of tikosyn to be given today. Pt remains in NSR following DCCV yesterday. -Goal K 4.0-4.7, potassium 3.9 today, replaced -Goal Mg 2.0-2.2, mag 2.3 today -Obtain ekgs 2-3 hours after every tikosyn dose. -Goal QTC <500 ms 2 hours post dose -Call EP QTC >500 ms prior to giving next dose of antiarrythmic medication Update: QTC following dose 4 of tikosyn: 605ms. Discussed with Dr Muir- please hold evening dose of tikosyn 03/11/22. Check EKG AM- if QTC < 500 ms, may give morning tikosyn dose 03/12/22. Will reduce tikosyn to 250 mcg q 12 hours. Plan 03/12/22 francis Muir: -Patient's tikosyn was held last evening. EKG this morning shows NSR with 1st degree AV block, QTc 458 ms, manually calculated to 436 ms. OK to give morning dose of tikosyn 250 mcg. Prefer to keep patient one more day to monitor QT with reduced dose. Discussed with patient and he is agreeable. -Goal K 4.0-4.7, potassium 4.3 today, replaced -Goal Mg 2.0-2.2, mag 2.3 today -Obtain ekgs 2-3 hours after every tikosyn dose. -Goal QTC <500 ms 2 hours post dose -Call EP QTC >500 ms prior to giving next dose of antiarrythmic medication -Continue coumadin, pharmacy to dose. Patient has not been receiving home lopressor dose, will order. HR currently in the 90s and patient is hypertensive. Plan 03/13/[address] Uradu: -EKG reviewed, QT following dose 4 of tikosyn: 476 ms, with LBBB correction 409 ms, after dose 5: 493ms, corrected to 417 ms. Intermittent Mobitz I Wenckebach noted during sleep hours. Will discontinue beta fredy. Will order 30 day event monitor for continuous monitoring. -Continue tikosyn 250 mcg q 12 hours, warfarin x 30 days post DCCV (patient has atriclip). -Follow up with EP in 3-4 months. OK for discharge from EP perspective. Subjective: Mr. White denies chest pain, dyspnea, palpitations, peripheral swelling, or dizziness Objective: Vital signs in last 24 hours: Temp: [97.7 F (36.5 C)-97.9 F (36.6 C)] 97.7 F (36.5 C) Heart Rate: [65-70] 68 Resp: [16-18] 18 BP: (132-153)/(74-88) 153/88 Telemetry reviewed : NSR, HR 68 bpm with Mobitz I wenckebach AV block noted during sleep hours. Physical Exam: Constitutional: Alert, no acute distress HEENT: Anicteric Cardiac: Heart is regular rate and regular rhythm. No gallop or rub. No murmur noted Lungs: clear to ausculation bilaterally. Nonlabored respirations. Abdomen: soft Lower extremities: No edema. Skin: intact Lab Review Today's available lab reviewed. * Pharmacy Note - Stacia Pritchett RPh,PharmD - 03/13/2022 8:03 AM EST PHARMACOTHERAPY NOTE: Warfarin Consult Assessment / Plan: INR Trend and Dose History: Date INR Warfarin Dose Reversal Agents New Interacting Medications 03/09 2.2 5 mg 03/10 2.4 5 mg 03/11 2.6 5 mg 03/12 3.0 hold 03/13 2.8 5 mg Pharmacy is managing warfarin dosing for this patient utilizing the following parameters: indication Atrial Fibrillation Goal INR Min 2.0 Goal INR Max 3.0 Based on patient risk factors, interacting medications, and INR trends, warfarin dose is 5 mg tonight to continue usual home dosing regimen. Will order and evaluate PT/INR daily. Please contact pharmacy if you have any questions regarding warfarin dosing. Subjective: Pharmacy is consulted to manage warfarin dosing for Kevin White, a 81 y.o. male continuing on warfarin therapy: Home dose is 5 mg daily . Last home dose was unknown mg on unknown date . INR on admission was 2.2. Past medical history reviewed. Objective: Hemorrhagic Risk Factors and other considerations include Age greater than 65, Diabetes, History ofCVA, Vascular Disease. Additional Anticoagulation: N/A. Dietary Considerations: Diet Ordered Labs include: Hemoglobin Date Value Ref Range Status 03/10/2022 13.5 13.5 - 17.5 g/dL Final Platelets Date Value Ref Range Status 03/10/2022 158 150 - 400 K/mcL Final Albumin Date Value Ref Range Status 03/13/2022 3.4 3.2 - 5.2 g/dL Final Pharmacist: Stacia Pritchett RPh,PharmD Contact Number: [phone] * Plan of Care - Esa Fontanez RN - 03/12/2022 11:58 PM EST Problem: Actual or potential alteration in health Goal: Absence of healthcare acquired conditions Outcome: Met Goal: Knowledge of Interdisciplinary Plan of Care Outcome: Partially Met Goal: Knowledge of Enviroment Outcome: Met * Plan of Care - Sanya Bedolla RN - 03/12/2022 4:37 PM EST Problem: Actual or potential alteration in health Goal: Absence of healthcare acquired conditions Outcome: Met Goal: Knowledge of Interdisciplinary Plan of Care Outcome: Met Goal: Knowledge of Enviroment Outcome: Met * Pharmacy Note - Stacia Pritchett RPh,PharmD - 03/12/2022 7:15 AM EST PHARMACOTHERAPY NOTE: Warfarin Consult Assessment / Plan: INR Trend and Dose History: Date INR Warfarin Dose Reversal Agents New Interacting Medications 03/09 2.2 5 mg 03/10 2.4 5 mg 03/11 2.6 5 mg 03/12 3.0 hold Pharmacy is managing warfarin dosing for this patient utilizing the following parameters: indication Atrial Fibrillation Goal INR Min 2.0 Goal INR Max 3.0 Based on patient risk factors, interacting medications, and INR trends, warfarin dose is 0 mg tonight to continue usual home dosing regimen. Steady increase in INR this admission with INR now at the top of goal. Will order and evaluate PT/INR daily. Please contact pharmacy if you have any questions regarding warfarin dosing. Subjective: Pharmacy is consulted to manage warfarin dosing for Kevin White, a 81 y.o. male continuing on warfarin therapy: Home dose is 5 mg daily . Last home dose was unknown mg on unknown date . INR on admission was 2.2. Past medical history reviewed. Objective: Hemorrhagic Risk Factors and other considerations include Age greater than 65, Diabetes, History ofCVA, Vascular Disease. Additional Anticoagulation: N/A. Dietary Considerations: Diet Ordered Labs include: Hemoglobin Date Value Ref Range Status 03/10/2022 13.5 13.5 - 17.5 g/dL Final Platelets Date Value Ref Range Status 03/10/2022 158 150 - 400 K/mcL Final Albumin Date Value Ref Range Status 03/12/2022 3.4 3.2 - 5.2 g/dL Final Pharmacist: Stacia Pritchett RPh,PharmD Contact Number: [phone] * Plan of Care - Cesia Saha RN - 03/12/2022 3:28 AM EST Problem: Actual or potential alteration in health Goal: Absence of healthcare acquired conditions Outcome: Not Met Goal: Knowledge of Interdisciplinary Plan of Care Outcome: Not Met Goal: Knowledge of Enviroment Outcome: Not Met * Plan of Care - Sanya Bedolla RN - 03/11/2022 3:15 PM EST Problem: Actual or potential alteration in health Goal: Absence of healthcare acquired conditions 03/11/2022 1515 by Sanya Bedolla, RN Outcome: Met 03/11/2022 1515 by Sanya Bedolla RN Outcome: Met Goal: Knowledge of Interdisciplinary Plan of Care 03/11/2022 1515 by Sanya Bedolla RN Outcome: Met 03/11/2022 1515 by Sanya Bedolla RN Outcome: Partially Met Goal: Knowledge of Enviroment 03/11/2022 1515 by Sanya Bedolla RN Outcome: Met 03/11/2022 1515 by Sanya Bedolla RN Outcome: Partially Met * Pharmacy Note - Kallie Baer RPh,PharmD - 03/11/2022 9:21 AM EST PHARMACOTHERAPY NOTE: Warfarin Consult Assessment / Plan: INR Trend and Dose History: Date INR Warfarin Dose Reversal Agents New Interacting Medications 03/09 2.2 5 mg 03/10 2.4 5 mg 03/11 2.6 5 mg Pharmacy is managing warfarin dosing for this patient utilizing the following parameters: indication Atrial Fibrillation Goal INR Min 2.0 Goal INR Max 3.0 Based on patient risk factors, interacting medications, and INR trends, warfarin dose is 5 mg tonight to continue usual home dosing regimen. Will order and evaluate PT/INR daily. Please contact pharmacy if you have any questions regarding warfarin dosing. Subjective: Pharmacy is consulted to manage warfarin dosing for Kevin White, a 81 y.o. male continuing on warfarin therapy: Home dose is 5 mg daily . Last home dose was unknown mg on unknown date . INR on admission was 2.2. Past medical history reviewed. Objective: Hemorrhagic Risk Factors and other considerations include Age greater than 65, Diabetes, History ofCVA, Vascular Disease. Additional Anticoagulation: N/A. Dietary Considerations: Diet Ordered Labs include: Hemoglobin Date Value Ref Range Status 03/10/2022 13.5 13.5 - 17.5 g/dL Final Platelets Date Value Ref Range Status 03/10/2022 158 150 - 400 K/mcL Final Albumin Date Value Ref Range Status 03/11/2022 3.6 3.2 - 5.2 g/dL Final Pharmacist: Kallie Baer RPh,PharmD Contact Number: [phone] * Plan of Care - West Andrade RN - 03/10/2022 1:35 PM EST Problem: Actual or potential alteration in health Goal: Absence of healthcare acquired conditions Outcome: Partially Met Goal: Knowledge of Interdisciplinary Plan of Care Outcome: Partially Met Goal: Knowledge of Enviroment Outcome: Partially Met * Pharmacy Note - Stacia Pritchett RPh, PharmD - 03/10/2022 10:47 AM EST PHARMACOTHERAPY NOTE: Warfarin Consult Assessment / Plan: INR Trend and Dose History: Date INR Warfarin Dose Reversal Agents New Interacting Medications 03/09 2.2 5 mg 03/10 2.4 5 mg Pharmacy is managing warfarin dosing for this patient utilizing the following parameters: indication Atrial Fibrillation Goal INR Min 2.0 Goal INR Max 3.0 Based on patient risk factors, interacting medications, and INR trends, warfarin dose is 5 mg tonight to continue usual home dosing regimen Will order and evaluate PT/INR daily. Please contact pharmacy if you have any questions regarding warfarin dosing. Subjective: Pharmacy is consulted to manage warfarin dosing for Kevin White, a 81 y.o. male continuing on warfarin therapy: Home dose is 5 mg daily . Last home dose was unknown mg on unknown date . INR on admission was 2.2. Past medical history reviewed. Objective: Hemorrhagic Risk Factors and other considerations include Age greater than 65, Diabetes, History ofCVA, Vascular Disease. Additional Anticoagulation: N/A. Dietary Considerations: Diet Ordered Labs include: Hemoglobin Date Value Ref Range Status 03/10/2022 13.5 13.5 - 17.5 g/dL Final Platelets Date Value Ref Range Status 03/10/2022 158 150 - 400 K/mcL Final Albumin Date Value Ref Range Status 03/10/2022 3.4 3.2 - 5.2 g/dL Final Pharmacist: Stacia Pritchett RPh,PharmMichael Contact Number: [phone] * Pharmacy Note - Cesia Slaughter RPh, PharmD - 03/09/2022 4:18 PM EST PHARMACOTHERAPY NOTE: Warfarin Consult Assessment / Plan: INR Trend and Dose History: Date INR Warfarin Dose Reversal Agents New Interacting Medications 03/09 2.2 5 mg per home regimen Pharmacy is managing warfarin dosing for this patient utilizing the following parameters: indication Atrial Fibrillation Goal INR Min 2.0 Goal INR Max 3.0 Based on patient risk factors, interacting medications, and INR trends, warfarin dose is 5 mg tonight. Will order and evaluate PT/INR daily. Please contact pharmacy if you have any questions regarding warfarin dosing. Subjective: Pharmacy is consulted to manage warfarin dosing for Kevin White, a 81 y.o. male continuing on warfarin therapy: Home dose is 5 mg daily . Last home dose was unknown mg on unknown date . INR on admission was 2.2. Past medical history reviewed. Objective: Hemorrhagic Risk Factors and other considerations include Age greater than 65, Diabetes, History ofCVA, Vascular Disease. Additional Anticoagulation: N/A. Dietary Considerations: Diet Ordered Labs include: Hemoglobin Date Value Ref Range Status 03/09/2022 14.5 13.5 - 17.5 g/dL Final Platelets Date Value Ref Range Status 03/09/2022 160 150 - 400 K/mcL Final Albumin Date Value Ref Range Status 08/11/2021 4.9 3.2 - 5.2 g/dL Final Pharmacist: Cesia Slaughter RPh,PharmD Contact Number: [phone] * Plan of Care - Kassidy Escalona RN - 03/09/2022 2:21 PM EST Problem: Actual or potential alteration in health Goal: Absence of healthcare acquired conditions Outcome: Partially Met Goal: Knowledge of Interdisciplinary Plan of Care Outcome: Partially Met Goal: Knowledge of Enviroment Outcome: Partially Met documented in this [id number] Hospital course Narrative* Mega Mckeon MD - 03/13/2022 12:13 PM EST [facility] [place] [facility] Kevin White Admitted: 03/09/2022 Discharge Date: 03/13/22 PCP Handoff Recommended Outpatient Testing 30-day event monitor Results Pending At Discharge None Clinical Summary Kevin White is a 81 y.o. male patient of Naveen Rasmussen MD with history of Afib on Anticoagulation with warfarin, CHF, CAD s/ CABG, hyperlipidemia, Diabetes, NAJMA presented to [facility] for elective Tikosyn loading for Afib. Hx of Afib with slow ventricular rate on AC Planned for Tikosyn loading w/DCCV CAD s/p CABG x 3 S/P Aortic Valve replacement for Daily EKG Baseline labs, cbc,chem, ionized calcium, mg, TFTs, INR Echo 10/2021-EF 60% no wall motion abnormalities Goal K >4.0, Mg >2.0 Obtain ekgs 2-3 hours after every tikosyn dose Goal QTC <500 ms 2 hours post dose Call EP QTC >500 ms prior to giving next dose of Tikosyn Consult EP Meds: Warfarin, Tikosyn (per EP), Atorvastatin, Lisinopril Patient remains in A. fib, s/p cardioversion on 03/10/2022 Patient is in sinus rhythm. Patient QTc was prolonged on 03/11/2022, evening dose of Tikosyn was held. Patient receiving lower dose of Tikosyn on 03/12/2022 EP prefers to keep the patient for another day to monitor for QTc while on low- dose Tikosyn Patient remains in sinus rhythm and is being discharged home once cleared by EP. Patient agreed to have 30-day event monitor mailed at home. And will follow-up with PCP and EP on discharge. Diabetes Mellitus Diabetic diet Last A1c 08/11/21-7.6% Current A1c:6.9 Medications: Insulin, (hold home metformin) Sliding scale insulin Hypertension Amlodipine, Lisinopril CHF Diastolic -on in exacerbation Lasix daily COPD/NAJMA Obesity-BMI 34 Non-complaint with CPAP at night Encouraged on compliant with CPAP and lifestyle modification Hyperlipidemia Rosuvastatin (substituted w/ Atorvastatin in hosp) Hx of Stroke Rosuvastatin (substituted w/ Atorvastatin in hosp) Hypothyroidism Levothyroxine Recent COVID infection 01/2022 No tx Discharge Medications Discharge Medications New Medications Details dofetilide 250 MCG capsule Commonly known as: TIKOSYN Take 1 (one) capsule (250 mcg total) by mouth every 12 (twelve) hours . Quantity: 60 capsule Medications To Continue Details amLODIPine 10 MG tablet Commonly known as: NORVASC Take 1 (one) tablet (10 mg total) by mouth daily Start: 08/25/21. Quantity: 30 tablet aspirin 81 mg chewable tablet Chew and Swallow 1 (one) tablet (81 mg total) daily . Quantity: 30 tablet cyanocobalamin 1000 MCG tablet Commonly known as: B-12 Take 1 (one) tablet (1,000 mcg total) by mouth daily . esomeprazole 40 MG capsule Commonly known as: NEXIUM Take 1 (one) capsule (40 mg total) by mouth every morning before breakfast . furosemide 20 MG tablet Commonly known as: LASIX Take 2 (two) tablets (40 mg total) by mouth daily . Quantity: 60 tablet insulin glargine 100 unit/mL (3 mL) Inpn Commonly known as: Lantus Solostar U-100 Insulin Inject 22 (twenty two) Units under the skin daily with dinner . Quantity: 6.6 mL levothyroxine 175 MCG tablet Commonly known as: SYNTHROID, LEVOTHROID Take 1 (one) tablet (175 mcg total) by mouth daily . lisinopriL 10 MG tablet Commonly known as: PRINIVIL,ZESTRIL Take 1 (one) tablet (10 mg total) by mouth daily with lunch Start: 08/25/21. Quantity: 30 tablet metFORMIN 500 MG tablet Commonly known as: GLUCOPHAGE Take 1 (one) tablet (500 mg total) by mouth 2 (two) times a day with meals Hold until repeat chem 7. Quantity: 60 tablet potassium chloride SA 20 MEQ tablet Commonly known as: K-DUR,KLOR-CON Take 1 (one) tablet (20 mEq total) by mouth daily . Quantity: 30 tablet rosuvastatin 40 MG tablet Commonly known as: CRESTOR Take 0.5 (one-half) tablet (20 mg total) by mouth daily . tamsulosin 0.4 mg capsule Commonly known as: FLOMAX Take 1 (one) capsule (0.4 mg total) by mouth daily . therapeutic multivitamin tablet Commonly known as: THERAGRAN Take 1 (one) tablet by mouth daily . traZODone 50 MG tablet Commonly known as: DESYREL Take 1 (one) tablet (50 mg total) by mouth nightly as needed . warfarin 5 MG tablet Commonly known as: COUMADIN Take 1 (one) tablet (5 mg total) by mouth daily . Stopped Medications metoprolol tartrate 25 MG tablet Commonly known as: LOPRESSOR Physician(s) Follow Up: Naveen Rasmussen MD [address] [facility] [id number] Schedule an appointment as soon as possible for a visit in 1 week(s) Condition at Discharge: Stable Disposition: Home On day of discharge, I performed a final bedside evaluation including a physical exam. I reviewed discharge recommendations with the patient in person. Patient instructions, including activity, were given to the patient/family at discharge. Time spent on discharge: > 30 minutes Completed by: Mega Mckeon on 03/13/22, 12:16 PM documented in this [id number] Note* Sign Off Note - Ira Ricci CNP - 03/13/2022 10:05 AM EST Electrophysiology Progress Note [facility] EP Sign-Off Discharge Medications: Continue current cardiac medications at current doses, unlimited duration. EP medications: tikosyn 250 mcg q 12 hours, warfarin x 30 days following DCCV on 03/10/22 Follow-up Imaging, Testing: A 30 day ESPERANZA will be mailed to patient. Follow-up Appointments: Follow up with EP in 3-4 months Additional Instructions Reviewed with Patient and/or Family: Compliance with follow-up. Compliance with medications. Assessment: Kevin White is a 81 year old male with: + PeAF with slow ventricular rates Hx full left atrial Maze with an (EnCompass radiofrequency box lesion, radiofrequency left atrial appendage lesion, cryo right atrial caval lesion, and a cryo right atrial appendage line)/ Ligation left atrial appendage with a [address] Beasley on 07/23/2021. Patient not interested in ablation, previously on amiodarone which was discontinued 12/24/21. Presents for tikosyn loading On coumadin. #s/p AVR #Intermittent Mobitz I block on telemetry during sleep hours Beta fredy discontinued #CAD s/p CABG 07/2021 #Hx TIA #60% LVEF #ECHO: 10/2021 Summary 1. Left ventricular chamber dimension is normal. 2. Left ventricular systolic function is normal with an ejection fraction by Biplane Method of Discs of 60 %. 3. Normal appearance of the aortic valve bioprosthesis. The valve is well-seated. There is no bioprosthetic aortic valve stenosis with a peak velocity of 205 cm/s, mean gradient of 8 mmHg, and aortic valve area of 1.8 cm2. Dimensionless index 0.48.. 4. There is no aortic valve regurgitation. Plan 03/09/22: -Patient presents for tikosyn loading. No need for thrombus study as patient has atriclip placement, CT confirms appropriate positioning near base of HEATHER with residual HEATHER stump nonopacified. Appendage appears completely occluded. Patient remains on coumadin, reports therapeutic INRs x 4 weeks. INR2.2 today. -CrCl: 74 ml/min. Will start patient on tikosyn 500 mcg q 12 hours, first dose this evening. -Baseline QTC: 438 ms. -Replace magnesium & potassium prior to starting tikosyn. -Goal K 4.0-4.7, potassium 4.7 today -Goal Mg 2.0-2.2, mag 2.1 today -Obtain ekgs 2-3 hours after every tikosyn dose. -Goal QTC <500 ms 2 hours post dose -Goal ionized calcium >3.5 prior to starting tikosyn. -Call EP QTC >500 ms prior to giving next dose of antiarrythmic medication -Will plan for DCCV tomorrow, 03/10/22. NPO at midnight. -Continue coumadin- pharmacy to dose. Plan 03/10/22: -S\P DCCV today, patient is in NSR. -QTC following dose 1 of tikosyn last evenin ms. Dose 2+3 to be given today. -INR 2.4 this morning. Continue coumadin, pharmacy to dose. Will need coumadin to continue x 30 days post cardioversion despite atriclip. -Goal K 4.0-4.7, potassium 4.2 today -Goal Mg 2.0-2.2, mag 2.2 today -Obtain ekgs 2-3 hours after every tikosyn dose. -Goal QTC <500 ms 2 hours post dose -Call EP QTC >500 ms prior to giving next dose of antiarrythmic medication Plan 03/11/22: -QTC post dose 2 of tikosyn load: 465 ms, post dose 3: 481ms. Dose 4+5 of tikosyn to be given today. Pt remains in NSR following DCCV yesterday. -Goal K 4.0-4.7, potassium 3.9 today, replaced -Goal Mg 2.0-2.2, mag 2.3 today -Obtain ekgs 2-3 hours after every tikosyn dose. -Goal QTC <500 ms 2 hours post dose -Call EP QTC >500 ms prior to giving next dose of antiarrythmic medication Update: QTC following dose 4 of tikosyn: 605ms. Discussed with Dr Muir- please hold evening dose of tikosyn 03/11/22. Check EKG AM- if QTC < 500 ms, may give morning tikosyn dose 03/12/22. Will reduce tikosyn to 250 mcg q 12 hours. Plan 03/12/22 francis Muir: -Patient's tikosyn was held last evening. EKG this morning shows NSR with 1st degree AV block, QTc 458 ms, manually calculated to 436 ms. OK to give morning dose of tikosyn 250 mcg. Prefer to keep patient one more day to monitor QT with reduced dose. Discussed with patient and he is agreeable. -Goal K 4.0-4.7, potassium 4.3 today, replaced -Goal Mg 2.0-2.2, mag 2.3 today -Obtain ekgs 2-3 hours after every tikosyn dose. -Goal QTC <500 ms 2 hours post dose -Call EP QTC >500 ms prior to giving next dose of antiarrythmic medication -Continue coumadin, pharmacy to dose. Patient has not been receiving home lopressor dose, will order. HR currently in the 90s and patient is hypertensive. Plan 03/13/22 francis Muir: -EKG reviewed, QT following dose 4 of tikosyn: 476 ms, with LBBB correction 409 ms, after dose 5: 493ms, corrected to 417 ms. Intermittent Mobitz I Wenckebach noted during sleep hours. Will discontinue beta fredy. Will order 30 day event monitor for continuous monitoring. -Continue tikosyn 250 mcg q 12 hours, warfarin x 30 days post DCCV (patient has atriclip). -Follow up with EP in 3-4 months. OK for discharge from EP perspective. Subjective: Mr. White denies chest pain, dyspnea, palpitations, peripheral swelling, or dizziness Objective: Vital signs in last 24 hours: Temp: [97.7 F (36.5 C)-97.9 F (36.6 C)] 97.7 F (36.5 C) Heart Rate: [65-70] 68 Resp: [16-18] 18 BP: (132-153)/(74-88) 153/88 Telemetry reviewed : NSR, HR 68 bpm with Mobitz I wenckebach AV block noted during sleep hours. Physical Exam: Constitutional: Alert, no acute distress HEENT: Anicteric Cardiac: Heart is regular rate and regular rhythm. No gallop or rub. No murmur noted Lungs: clear to ausculation bilaterally. Nonlabored respirations. Abdomen: soft Lower extremities: No edema. Skin: intact Lab Review Today's available lab reviewed. [id number] Note* Pharmacy Note - Stacia Pritchett RPh,PharmD - 03/13/2022 8:03 AM EST PHARMACOTHERAPY NOTE: Warfarin Consult Assessment / Plan: INR Trend and Dose History: Date INR Warfarin Dose Reversal Agents New Interacting Medications 03/09 2.2 5 mg 03/10 2.4 5 mg 03/11 2.6 5 mg 03/12 3.0 hold 03/13 2.8 5 mg Pharmacy is managing warfarin dosing for this patient utilizing the following parameters: indication Atrial Fibrillation Goal INR Min 2.0 Goal INR Max 3.0 Based on patient risk factors, interacting medications, and INR trends, warfarin dose is 5 mg tonight to continue usual home dosing regimen. Will order and evaluate PT/INR daily. Please contact pharmacy if you have any questions regarding warfarin dosing. Subjective: Pharmacy is consulted to manage warfarin dosing for Kevin White, a 81 y.o. male continuing on warfarin therapy: Home dose is 5 mg daily . Last home dose was unknown mg on unknown date . INR on admission was 2.2. Past medical history reviewed. Objective: Hemorrhagic Risk Factors and other considerations include Age greater than 65, Diabetes, History ofCVA, Vascular Disease. Additional Anticoagulation: N/A. Dietary Considerations: Diet Ordered Labs include: Hemoglobin Date Value Ref Range Status 03/10/2022 13.5 13.5 - 17.5 g/dL Final Platelets Date Value Ref Range Status 03/10/2022 158 150 - 400 K/mcL Final Albumin Date Value Ref Range Status 03/13/2022 3.4 3.2 - 5.2 g/dL Final Pharmacist: Stacia Pritchett RPh,PharmD Contact Number: [phone] [id number]* Plan of Care - Esa Fontanez RN - 03/12/2022 11:58 PM EST Problem: Actual or potential alteration in health Goal: Absence of healthcare acquired conditions Outcome: Met Goal: Knowledge of Interdisciplinary Plan of Care Outcome: Partially Met Goal: Knowledge of Enviroment Outcome: Met [id number] Note* Plan of Care - Sanya Bedolla RN - 03/12/2022 4:37 PM EST Problem: Actual or potential alteration in health Goal: Absence of healthcare acquired conditions Outcome: Met Goal: Knowledge of Interdisciplinary Plan of Care Outcome: Met Goal: Knowledge of Enviroment Outcome: Met [id number] History of Present illness Narrative* Mega Mckeon MD - 03/12/2022 11:44 AM EST [facility] [place] and Plan Kevin White is a 81 y.o. male patient of Naveen Rasmussen MD with history of Afib on Anticoagulation with warfarin, CHF, CAD s/ CABG, hyperlipidemia, Diabetes, NAJMA presented to [facility] for elective Tikosyn loading for Afib. Hx of Afib with slow ventricular rate on AC Planned for Tikosyn loading w/DCCV CAD s/p CABG x 3 S/P Aortic Valve replacement for Daily EKG Baseline labs, cbc,chem, ionized calcium, mg, TFTs, INR Echo 10/2021-EF 60% no wall motion abnormalities Goal K >4.0, Mg >2.0 Obtain ekgs 2-3 hours after every tikosyn dose Goal QTC <500 ms 2 hours post dose Call EP QTC >500 ms prior to giving next dose of Tikosyn Consult EP Patient QTc was prolonged on 03/11/2022, evening dose of Tikosyn was held. Patient receiving lower dose of Tikosyn on 03/12/2022 EP prefers to keep the patient for another day to monitor for QTc while on low- dose Tikosyn Meds: Warfarin, Tikosyn (per EP), Atorvastatin, Lisinopril Patient remains in A. fib, s/p cardioversion on 03/10/2022 Patient is in sinus rhythm. Diabetes Mellitus Diabetic diet Last A1c 08/11/21-7.6% Current A1c:6.9 Medications: Insulin, (hold home metformin) Sliding scale insulin Hypertension Amlodipine, Lisinopril CHF Diastolic -on in exacerbation Lasix daily COPD/NAJMA Obesity-BMI 34 Non-complaint with CPAP at night Encouraged on compliant with CPAP and lifestyle modification Hyperlipidemia Rosuvastatin (substituted w/ Atorvastatin in hosp) Hx of Stroke Rosuvastatin (substituted w/ Atorvastatin in hosp) Hypothyroidism Levothyroxine Recent COVID infection 01/2022 No tx Family Contact Information Code Status: Full Code Quality Measures DVT Prophylaxis: - warfarin (COUMADIN) tablet Adame Catheter: None Disposition Discharge Location: Home Estimated Discharge Date: 03/12/2022 Outpatient Testing: None Subjective Denies any chest pain nausea or vomiting. Plan for lower dose of Tikosyn today and possible discharge tomorrow. Objective BP (!) 147/77 Pulse 74 Temp 97.3 F (36.3 C) (Oral) Resp 16 Ht 6' Wt 114.4 kg (252 lb 3.2 oz) SpO2 90% BMI 34.20 kg/m Physical Examination General Appearance: alert; well appearing; in no acute distress HEENT: Head- normocephalic; Eyes- EOMI, sclera anicteric; Ears- hearing intact; Nose- no nasal discharge; Throat- mucous membranes moist Cardiovascular: regular rate and rhythm; normal S1, S2; no murmurs, rubs, clicks or gallops; no peripheral edema Respiratory: lungs clear to auscultation; without wheezes, rales or rhonchi; on room air Abdomen: soft, non-tender, non-distended; positive bowel sounds Neurological: oriented x 3; normal speech; no focal findings or movement disorder noted Musculoskeletal: no significant deformity or tenderness to palpation Skin: normal coloration; no obvious rashes, lesions or skin breakdown Psych: normal mood and affect Results/Medications Reviewed 03/12/2022 11:44 AM Laboratory, Microbiology, Radiology, Cardiology, and Medications * Reza Ramos - 03/12/2022 10:00 AM EST Spiritual Care Progress Note Completed by: Reza Ramos Person(s) Present During this Visit: Patient Time Spent in Direct Patient Care: 15 Narrative: While rounding business analysis consultant introduced self and role. Information regarding pastoral care services and how to contact was provided. No family present. PT expressed no needs at this time. The Pastoral Care team will remain available to support patient as needed/requested. Patient's Response to Pastoral Care: Appeared to be well-engaged, Expressed Gratitude for Visit Planning for Future Visits: Pt aware to contact Broadcast Maintenance Engineer as needed 03/12/22 1000 Visit Background Visit With Patient Visit By Student Broadcast Maintenance Engineer Visit Progression Introduction Visit Requested By Broadcast Maintenance Engineer Initiated Visit Source Broadcast Maintenance Engineer Initiated Visit Type Rounding Visit Circumstances and Events Routine Visit Visit Length (minutes) 15 Patient's Response to Pastoral Care Appeared to be well-engaged;Expressed Gratitude for Visit Visit Planning Pt aware to contact Broadcast Maintenance Engineer as needed Spiritual Assessment Not assessed during visit Zoroastrian Assessment Not assessed during this visit Family assessment provided? Not assessed during this visit Reza Aguayo Logistics Operations Director Pastoral Care Department [facility] Broadcast Maintenance Engineer On-Call * Ira Ricci CNP - 03/12/2022 9:30 AM EST Electrophysiology Inpatient Follow-up Heart & Vascular [facility] 03/12/2022 Ira Ricci CNP [facility] Patient: Kevin White Date of : 1940 (81 y.o.) PCP: Naveen Rasmussen MD Assessment: Kevin White is a 81 year old male with: + PeAF with slow ventricular rates Hx full left atrial Maze with an (EnCompass radiofrequency box lesion, radiofrequency left atrial appendage lesion, cryo right atrial caval lesion, and a cryo right atrial appendage line)/ Ligation left atrial appendage with a [address] Beasley on 07/23/2021. Patient not interested in ablation, previously on amiodarone which was discontinued 12/24/21. Presents for tikosyn loading On coumadin. #s/p AVR #CAD s/p CABG 07/2021 #Hx TIA #60% LVEF #ECHO: 10/2021 Summary 1. Left ventricular chamber dimension is normal. 2. Left ventricular systolic function is normal with an ejection fraction by Biplane Method of Discs of 60 %. 3. Normal appearance of the aortic valve bioprosthesis. The valve is well-seated. There is no bioprosthetic aortic valve stenosis with a peak velocity of 205 cm/s, mean gradient of 8 mmHg, and aortic valve area of 1.8 cm2. Dimensionless index 0.48.. 4. There is no aortic valve regurgitation. Plan 03/09/22: -Patient presents for tikosyn loading. No need for thrombus study as patient has atriclip placement, CT confirms appropriate positioning near base of HEATHER with residual HEATHER stump nonopacified. Appendage appears completely occluded. Patient remains on coumadin, reports therapeutic INRs x 4 weeks. INR2.2 today. -CrCl: 74 ml/min. Will start patient on tikosyn 500 mcg q 12 hours, first dose this evening. -Baseline QTC: 438 ms. -Replace magnesium & potassium prior to starting tikosyn. -Goal K 4.0-4.7, potassium 4.7 today -Goal Mg 2.0-2.2, mag 2.1 today -Obtain ekgs 2-3 hours after every tikosyn dose. -Goal QTC <500 ms 2 hours post dose -Goal ionized calcium >3.5 prior to starting tikosyn. -Call EP QTC >500 ms prior to giving next dose of antiarrythmic medication -Will plan for DCCV tomorrow, 03/10/22. NPO at midnight. -Continue coumadin- pharmacy to dose. Plan 03/10/22: -S\P DCCV today, patient is in NSR. -QTC following dose 1 of tikosyn last evenin ms. Dose 2+3 to be given today. -INR 2.4 this morning. Continue coumadin, pharmacy to dose. Will need coumadin to continue x 30 days post cardioversion despite atriclip. -Goal K 4.0-4.7, potassium 4.2 today -Goal Mg 2.0-2.2, mag 2.2 today -Obtain ekgs 2-3 hours after every tikosyn dose. -Goal QTC <500 ms 2 hours post dose -Call EP QTC >500 ms prior to giving next dose of antiarrythmic medication Plan 03/11/22: -QTC post dose 2 of tikosyn load: 465 ms, post dose 3: 481ms. Dose 4+5 of tikosyn to be given today. Pt remains in NSR following DCCV yesterday. -Goal K 4.0-4.7, potassium 3.9 today, replaced -Goal Mg 2.0-2.2, mag 2.3 today -Obtain ekgs 2-3 hours after every tikosyn dose. -Goal QTC <500 ms 2 hours post dose -Call EP QTC >500 ms prior to giving next dose of antiarrythmic medication Update: QTC following dose 4 of tikosyn: 605ms. Discussed with Dr Muir- please hold evening dose of tikosyn 03/11/22. Check EKG AM- if QTC < 500 ms, may give morning tikosyn dose 03/12/22. Will reduce tikosyn to 250 mcg q 12 hours. Plan 03/12/[address] Muir: -Patient's tikosyn was held last evening. EKG this morning shows NSR with 1st degree AV block, QTc 458 ms, manually calculated to 436 ms. OK to give morning dose of tikosyn 250 mcg. Prefer to keep patient one more day to monitor QT with reduced dose. Discussed with patient and he is agreeable. -Goal K 4.0-4.7, potassium 4.3 today, replaced -Goal Mg 2.0-2.2, mag 2.3 today -Obtain ekgs 2-3 hours after every tikosyn dose. -Goal QTC <500 ms 2 hours post dose -Call EP QTC >500 ms prior to giving next dose of antiarrythmic medication -Continue coumadin, pharmacy to dose. Patient has not been receiving home lopressor dose, will order. HR currently in the 90s and patient is hypertensive. Subjective Today 03/12/22 Patient denies palpitations, dyspnea, chest discomfort,lightheadedness, dizziness, orlower extremity edema. Imaging: I independently reviewed the EKG and agree with the interpretation(s) with the following comments. ECG 12 Lead Final Result by Interface, Lab Results In [place] [facility] (03/12/2022 0743) Echocardiogram complete Final Result by Marissa To MD (11/13/2021 1057) Echocardiogram transesophageal Final Result by Marissa To MD (06/19/2021 1545) Echocardiogram complete w contrast Final Result by Antonieta Overton MD (06/02/2021 1525) Cardiac Catheterization Final Result by Jay Montoya MD (07/01/2021 1110) Review of Systems: All system(s) were reviewed. Pertinent positive and negative findings are noted in the HPI. All system negative unless otherwise noted in the HPI. Current Facility-Administered Medications: acetaminophen (TYLENOL) tablet 650 mg, 650 mg, Oral, Q4H PRN, Adriano Hawley MD amLODIPine (NORVASC) tablet 10 mg, 10 mg, Oral, Daily, Adriano Hawley MD, 10 mg at 03/12/22851 atorvastatin (LIPITOR) tablet 40 mg, 40 mg, Oral, Nightly, Adriano Hawley MD, 40 mg at 03/11/222055 cyanocobalamin (B-12) tablet 1,000 mcg, 1,000 mcg, Oral, Daily, Adriano Hawley MD, 1,000 mcgat 01/26/23 0852 dofetilide (TIKOSYN) capsule 250 mcg, 250 mcg, Oral, Q12H GENIE, Ira Ricci [facility], 250 mcg at 03/12/22 0929 furosemide (LASIX) tablet 40 mg, 40 mg, Oral, Daily, Adriano Hawley MD, 40 mg at 03/12/22 0852 insulin glargine (LANTUS) injection 20 Units, 20 Units, Subcutaneous, Nightly, Adriano Hawley MD, 20 Units at 03/11/22 205 insulin lispro (AdmeLOG,HumaLOG) injection 0-15 Units, 0-15 Units, Subcutaneous, at bedtime, AlexisA. Marleen MD insulin lispro (AdmeLOG,HumaLOG) injection 0-30 Units, 0-30 Units, Subcutaneous, TID AC, Adriano Hawley MD, 4 Units at 03/11/22 1749 levothyroxine (SYNTHROID, LEVOTHROID) tablet 175 mcg, 175 mcg, Oral, Daily, Adriano Hawley MD, 175 mcg at 03/12/22 0556 lisinopriL (PRINIVIL,ZESTRIL) tablet 10 mg, 10 mg, Oral, Daily with lunch, Adriano Hawley MD, 10 mg at 03/11/22 1330 magnesium sulfate 2 g in sterile water (SW) 50 mL IVPB, 2 g, Intravenous, Daily PRN, Ira Ricci, DRAFTER [employer]OGR[employer] melatonin tablet 3 mg, 3 mg, Oral, Nightly PRN, Adriano Hawley MD multivitamin (THERAGRAN) per tablet 1 tablet, 1 tablet, Oral, Daily, Adriano Hawley MD, 1 tablet at 03/12/22 0852 ondansetron (ZOFRAN-ODT) disintegrating tablet 4 mg, 4 mg, Oral, Q6H PRN OR ondansetron (ZOFRAN) injection 4 mg, 4 mg, Intravenous, Q6H PRN, Adriano Hawley MD pantoprazole (PROTONIX) EC tablet 40 mg, 40 mg, Oral, Daily, Adriano Hawley MD, 40 mg at 03/12/22 0852 potassium chloride SA (K-DUR,KLOR-CON) CR tablet 20 mEq, 20 mEq, Oral, Daily, Adriano Hawley MD, 20 mEq at 03/12/22 0852 potassium chloride SA (K-DUR,KLOR-CON) CR tablet 40 mEq, 40 mEq, Oral, Daily PRN, Ira Ricci, RAFAEL senna (SENOKOT) tablet 8.6 mg, 1 tablet, Oral, BID PRN, Adriano Hawley MD Saline lock IV, , , Continuous AND sodium chloride (PF) (NS) flush 5 mL, 5 mL, Intravenous, PRNAND sodium chloride (PF) (NS) flush 5 mL, 5 mL, Intravenous, Q8H GENIE, 5 mL at 03/12/22 0556 AND sodium chloride 0.9% (NS), 0-150 mL/hr, Intravenous, PRN, Adriano Hawley MD tamsulosin (FLOMAX) 24 hr capsule 0.4 mg, 0.4 mg, Oral, Daily, Adriano Hawley MD, 0.4 mg at 03/12/22 0852 traZODone (DESYREL) tablet 50 mg, 50 mg, Oral, Nightly PRN, Adriano Hawley MD Objective: Physical Examination: Blood pressure (!) 147/77, pulse 74, temperature 97.3 F (36.3 C), temperature source Oral, resp. rate 16, height 6', weight 114.4 kg (252 lb 3.2 oz), SpO2 90 %. Telemetry: NSR, HR 95 bpm, NSVT x 3 beats. Constitutional Alert and oriented X3 in no acute distress. Head: normocephalic. Neck: No masses noted HEENT Anicteric Heart:. Normal Intensity S1 and S2. No murmurs. Lungs: Clear to auscultation. Good air movement. No crackles noted. Abdomen is soft and nontender. Extremities: Extremities are warm. No lower extremity edema. Adequate peripheral pulses. Skin: Warm, dry and intact Neuro: nonfocal Lab Results Component Value Date GLUCOSE 131 (H) 03/12/2022 CALCIUM 8.5 03/12/2022 NA 140 03/12/2022 K 4.3 03/12/2022 CL 108 03/12/2022 BUN 23 03/12/2022 CREATININE 1.27 03/12/2022 Lab Results Component Value Date WBC 5.90 03/10/2022 HGB 13.5 03/10/2022 HCT 41.1 03/10/2022 MCV 95.8 03/10/2022 PLT 158 03/10/2022 RBC 4.29 (L) 03/10/2022 Lab Results Component Value Date ALT 23 03/12/2022 AST 14 03/12/2022 ALKPHOS 62 03/12/2022 BILITOT 0.5 03/12/2022 Serum creatinine: 1.27 mg/dL 03/12/22 0446 Estimated creatinine clearance: 50.9 mL/min * Mega Mckeon MD - 03/11/2022 11:56 AM EST [facility] [place] Assessment and Plan Kevin White is a 81 y.o. male patient of Naveen Rasmussen MD with history of Afib on Anticoagulation with warfarin, CHF, CAD s/ CABG, hyperlipidemia, Diabetes, NAJMA presented to [facility] for elective Tikosyn loading for Afib. Hx of Afib with slow ventricular rate on AC Planned for Tikosyn loading w/DCCV CAD s/p CABG x 3 S/P Aortic Valve replacement for Daily EKG Baseline labs, cbc,chem, ionized calcium, mg, TFTs, INR Echo 10/2021-EF 60% no wall motion abnormalities Goal K >4.0, Mg >2.0 Obtain ekgs 2-3 hours after every tikosyn dose Goal QTC <500 ms 2 hours post dose Call EP QTC >500 ms prior to giving next dose of Tikosyn Consult EP Meds: Warfarin, Tikosyn (per EP), Atorvastatin, Lisinopril Patient remains in A. fib, s/p cardioversion on 03/10/2022 Patient is in sinus rhythm. Diabetes Mellitus Diabetic diet Last A1c 08/11/21-7.6% Current A1c:6.9 Medications: Insulin, (hold home metformin) Sliding scale insulin Hypertension Amlodipine, Lisinopril CHF Diastolic -on in exacerbation Lasix daily COPD/NAJMA Obesity-BMI 34 Non-complaint with CPAP at night Encouraged on compliant with CPAP and lifestyle modification Hyperlipidemia Rosuvastatin (substituted w/ Atorvastatin in hosp) Hx of Stroke Rosuvastatin (substituted w/ Atorvastatin in hosp) Hypothyroidism Levothyroxine Recent COVID infection 01/2022 No tx Family Contact Information Code Status: Full Code Quality Measures DVT Prophylaxis: - warfarin (COUMADIN) tablet Adame Catheter: None Disposition Discharge Location: Home Estimated Discharge Date: 03/12/2022 Outpatient Testing: None Subjective Patient remains in sinus rhythm post cardioversion. Patient denies any chest pain nausea or vomiting. Discussed with EP nurse practitioner, plan for discharge on . Objective BP (!) 160/83 Pulse 71 Temp 97.4 F (36.3 C) (Oral) Resp 16 Ht 6' Wt 114.4 kg (252 lb 3.2 oz) SpO2 96% BMI 34.20 kg/m Physical Examination General Appearance: alert; well appearing; in no acute distress HEENT: Head- normocephalic; Eyes- EOMI, sclera anicteric; Ears- hearing intact; Nose- no nasal discharge; Throat- mucous membranes moist Cardiovascular: regular rate and rhythm; normal S1, S2; no murmurs, rubs, clicks or gallops; no peripheral edema Respiratory: lungs clear to auscultation; without wheezes, rales or rhonchi; on room air Abdomen: soft, non-tender, non-distended; positive bowel sounds Neurological: oriented x 3; normal speech; no focal findings or movement disorder noted Musculoskeletal: no significant deformity or tenderness to palpation Skin: normal coloration; no obvious rashes, lesions or skin breakdown Psych: normal mood and affect Results/Medications Reviewed 03/11/2022 11:56 AM Laboratory, Microbiology, Radiology, Cardiology, and Medications * Ira Ricci CNP - 03/11/2022 9:49 AM EST Electrophysiology Inpatient Follow-up Heart & Vascular [facility] 03/11/2022 Ira Ricci CNP [facility] Patient: Kevin White Date of : 1940 (81 y.o.) PCP: Naveen Rasmussen MD Assessment: Kevin White is a 81 year old male with: + PeAF with slow ventricular rates Hx full left atrial Maze with an (EnCompass radiofrequency box lesion, radiofrequency left atrial appendage lesion, cryo right atrial caval lesion, and a cryo right atrial appendage line)/ Ligation left atrial appendage with a [address] Beasley on 07/23/2021. Patient not interested in ablation, previously on amiodarone which was discontinued 12/24/21. Presents for tikosyn loading On coumadin. #s/p AVR #CAD s/p CABG 07/2021 #Hx TIA #60% LVEF #ECHO: 10/2021 Summary 1. Left ventricular chamber dimension is normal. 2. Left ventricular systolic function is normal with an ejection fraction by Biplane Method of Discs of 60 %. 3. Normal appearance of the aortic valve bioprosthesis. The valve is well-seated. There is no bioprosthetic aortic valve stenosis with a peak velocity of 205 cm/s, mean gradient of 8 mmHg, and aortic valve area of 1.8 cm2. Dimensionless index 0.48.. 4. There is no aortic valve regurgitation. Plan 03/09/22: -Patient presents for tikosyn loading. No need for thrombus study as patient has atriclip placement, CT confirms appropriate positioning near base of HEATHRE with residual HEATHER stump nonopacified. Appendage appears completely occluded. Patient remains on coumadin, reports therapeutic INRs x 4 weeks. INR2.2 today. -CrCl: 74 ml/min. Will start patient on tikosyn 500 mcg q 12 hours, first dose this evening. -Baseline QTC: 438 ms. -Replace magnesium & potassium prior to starting tikosyn. -Goal K 4.0-4.7, potassium 4.7 today -Goal Mg 2.0-2.2, mag 2.1 today -Obtain ekgs 2-3 hours after every tikosyn dose. -Goal QTC <500 ms 2 hours post dose -Goal ionized calcium >3.5 prior to starting tikosyn. -Call EP QTC >500 ms prior to giving next dose of antiarrythmic medication -Will plan for DCCV tomorrow, 03/10/22. NPO at midnight. -Continue coumadin- pharmacy to dose. Plan 03/10/22: -S\P DCCV today, patient is in NSR. -QTC following dose 1 of tikosyn last evenin ms. Dose 2+3 to be given today. -INR 2.4 this morning. Continue coumadin, pharmacy to dose. Will need coumadin to continue x 30 days post cardioversion despite atriclip. -Goal K 4.0-4.7, potassium 4.2 today -Goal Mg 2.0-2.2, mag 2.2 today -Obtain ekgs 2-3 hours after every tikosyn dose. -Goal QTC <500 ms 2 hours post dose -Call EP QTC >500 ms prior to giving next dose of antiarrythmic medication Plan 03/11/22: -QTC post dose 2 of tikosyn load: 465 ms, post dose 3: 481ms. Dose 4+5 of tikosyn to be given today. Pt remains in NSR following DCCV yesterday. -Goal K 4.0-4.7, potassium 3.9 today, replaced -Goal Mg 2.0-2.2, mag 2.3 today -Obtain ekgs 2-3 hours after every tikosyn dose. -Goal QTC <500 ms 2 hours post dose -Call EP QTC >500 ms prior to giving next dose of antiarrythmic medication Update: QTC following dose 4 of tikosyn: 605ms. Discussed with Dr Muir- please hold evening dose of tikosyn 03/11/22. Check EKG AM- if QTC < 500 ms, may give morning tikosyn dose 03/12/22. Will reduce tikosyn to 250 mcg q 12 hours. Subjective Today 03/11/22 Patient denies palpitations, dyspnea, chest discomfort,lightheadedness, dizziness, orlower extremity edema. Imaging: I independently reviewed the EKG and agree with the interpretation(s) with the following comments. ECG 12 Lead Final Result by Interface, [facility] (03/10/2022 7524) Echocardiogram complete Final Result by Marissa To MD (11/13/2021 1051) Echocardiogram transesophageal Final Result by Marissa To MD (06/19/2021 1545) Echocardiogram complete w contrast Final Result by Antonieta Overton MD (06/02/2021 1525) Cardiac Catheterization Final Result by Jay Montoya MD (07/01/2021 1110) Review of Systems: All system(s) were reviewed. Pertinent positive and negative findings are noted in the HPI. All system negative unless otherwise noted in the HPI. Current Facility-Administered Medications: acetaminophen (TYLENOL) tablet 650 mg, 650 mg, Oral, Q4H PRN, Adriano Hawley MD amLODIPine (NORVASC) tablet 10 mg, 10 mg, Oral, Daily, Adriano Hawley MD, 10 mg at 03/11/22822 atorvastatin (LIPITOR) tablet 40 mg, 40 mg, Oral, Nightly, Adriano Hawley MD, 40 mg at 03/10/222134 cyanocobalamin (B-12) tablet 1,000 mcg, 1,000 mcg, Oral, Daily, Adriano Hawley MD, 1,000 mcgat 03/11/22822 dofetilide (TIKOSYN) capsule 500 mcg, 500 mcg, Oral, Q12H GENIE, Ira Wells Keiry, [employer], 500 mcg at 03/11/22822 furosemide (LASIX) tablet 40 mg, 40 mg, Oral, Daily, Adriano Hawley MD, 40 mg at 03/11/22822 insulin glargine (LANTUS) injection 20 Units, 20 Units, Subcutaneous, Nightly, Adriano Hawley MD, 20 Units at 03/10/222134 insulin lispro (AdmeLOG,HumaLOG) injection 0-15 Units, 0-15 Units, Subcutaneous, at bedtime, AlexisA. Marleen MD insulin lispro (AdmeLOG,HumaLOG) injection 0-30 Units, 0-30 Units, Subcutaneous, TID AC, Adriano Hawley MD levothyroxine (SYNTHROID, LEVOTHROID) tablet 175 mcg, 175 mcg, Oral, Daily, Adriano Hawley MD, 175 mcg at 03/11/22541 lisinopriL (PRINIVIL,ZESTRIL) tablet 10 mg, 10 mg, Oral, Daily with lunch, Adriano Hawley MD, 10 mg at 03/10/22 1330 magnesium sulfate 2 g in sterile water (SW) 50 mL IVPB, 2 g, Intravenous, Daily PRN, Ira Ricci CNP melatonin tablet 3 mg, 3 mg, Oral, Nightly PRN, Adriano Hawley MD multivitamin (THERAGRAN) per tablet 1 tablet, 1 tablet, Oral, Daily, Adriano Hawley MD, 1 tablet at 03/11/22 0823 ondansetron (ZOFRAN-ODT) disintegrating tablet 4 mg, 4 mg, Oral, Q6H PRN OR ondansetron (ZOFRAN) injection 4 mg, 4 mg, Intravenous, Q6H PRN, Adriano Hawley MD pantoprazole (PROTONIX) EC tablet 40 mg, 40 mg, Oral, Daily, Adriano Hawley MD, 40 mg at 03/11/22 0823 potassium chloride SA (K-DUR,KLOR-CON) CR tablet 20 mEq, 20 mEq, Oral, Daily, Adriano Hawley MD, 20 mEq at 03/11/22 0823 potassium chloride SA (K-DUR,KLOR-CON) CR tablet 40 mEq, 40 mEq, Oral, Daily PRN, Ira Ricci CNP senna (SENOKOT) tablet 8.6 mg, 1 tablet, Oral, BID PRN, Adriano Hawley MD Saline lock IV, , , Continuous AND sodium chloride (PF) (NS) flush 5 mL, 5 mL, Intravenous, PRNAND sodium chloride (PF) (NS) flush 5 mL, 5 mL, Intravenous, Q8H GENIE, 5 mL at 03/11/22 0543 AND sodium chloride 0.9% (NS), 0-150 mL/hr, Intravenous, PRN, Adriano Hawley MD tamsulosin (FLOMAX) 24 hr capsule 0.4 mg, 0.4 mg, Oral, Daily, Adriano Hawley MD, 0.4 mg at 03/11/22 0823 traZODone (DESYREL) tablet 50 mg, 50 mg, Oral, Nightly PRN, Adriano Hawley MD warfarin (COUMADIN) tablet 5 mg, 5 mg, Oral, Once, Kallie Baer [facility],PharmD Objective: Physical Examination: Blood pressure (!) 160/83, pulse 71, temperature 97.4 F (36.3 C), temperature source Oral, resp. rate 16, height 6', weight 114.4 kg (252 lb 3.2 oz), SpO2 96 %. Telemetry: NSR with 1st degree AV block, HR 76 bpm, rare PVC. Constitutional Alert and oriented X3 in no acute distress. Head: normocephalic. Neck: No masses noted HEENT Anicteric Heart:. Normal Intensity S1 and S2. No murmurs. Lungs: Clear to auscultation. Good air movement. No crackles noted. Abdomen is soft and nontender. Extremities: Extremities are warm. No lower extremity edema. Adequate peripheral pulses. Skin: Warm, dry and intact Neuro: nonfocal Lab Results Component Value Date GLUCOSE 111 (H) 03/11/2022 CALCIUM 8.8 03/11/2022 NA 140 03/11/2022 K 3.9 03/11/2022 CL 104 03/11/2022 BUN 22 03/11/2022 CREATININE 1.09 03/11/2022 Lab Results Component Value Date WBC 5.90 03/10/2022 HGB 13.5 03/10/2022 HCT 41.1 03/10/2022 MCV 95.8 03/10/2022 PLT 158 03/10/2022 RBC 4.29 (L) 03/10/2022 Lab Results Component Value Date ALT 24 03/11/2022 AST 12 03/11/2022 ALKPHOS 61 03/11/2022 BILITOT 0.6 03/11/2022 Serum creatinine: 1.09 mg/dL 03/11/22 0346 Estimated creatinine clearance: 59.3 mL/min * Mega Mckeon MD - 03/10/2022 11:28 AM EST [facility] [place] Assessment and Plan Kevin White is a 81 y.o. male patient of Naveen Rasmussen MD with history of Afib on Anticoagulation with warfarin, CHF, CAD s/ CABG, hyperlipidemia, Diabetes, NAJMA presented to [facility] for elective Tikosyn loading for Afib. Hx of Afib with slow ventricular rate on AC Planned for Tikosyn loading w/DCCV CAD s/p CABG x 3 S/P Aortic Valve replacement for Daily EKG Baseline labs, cbc,chem, ionized calcium, mg, TFTs, INR Echo 10/2021-EF 60% no wall motion abnormalities Goal K >4.0, Mg >2.0 Obtain ekgs 2-3 hours after every tikosyn dose Goal QTC <500 ms 2 hours post dose Call EP QTC >500 ms prior to giving next dose of Tikosyn Consult EP Meds: Warfarin, Tikosyn (per EP), Atorvastatin, Lisinopril Patient remains in A. fib, s/p cardioversion on 03/10/2022 Diabetes Mellitus Diabetic diet Last A1c 08/11/21-7.6% Current A1c:6.9 Medications: Insulin, (hold home metformin) Sliding scale insulin Hypertension Amlodipine, Lisinopril CHF Diastolic -on in exacerbation Lasix daily COPD/NAJMA Obesity-BMI 34 Non-complaint with CPAP at night Encouraged on compliant with CPAP and lifestyle modification Hyperlipidemia Rosuvastatin (substituted w/ Atorvastatin in hosp) Hx of Stroke Rosuvastatin (substituted w/ Atorvastatin in hosp) Hypothyroidism Levothyroxine Recent COVID infection 01/2022 No tx Family Contact Information Code Status: Full Code Quality Measures DVT Prophylaxis: - warfarin (COUMADIN) tablet Adame Catheter: None Disposition Discharge Location: Home Estimated Discharge Date: 03/12/2022 Outpatient Testing: None Subjective The patient is new to me today. All labs, imaging, and labor relations consultant notes were personally reviewed Patient was admitted on 03/09/2022 for Tikosyn load. Patient remained in A. fib this morning and is s/p cardioversion. Patient denies any chest pain nausea or vomiting when seen before cardioversion. Objective BP (!) 152/80 Pulse 63 Temp 97.8 F (36.6 C) (Oral) Resp 18 Ht 6' Wt 114.4 kg (252 lb 3.2 oz) SpO2 94% BMI 34.20 kg/m Physical Examination General Appearance: alert; well appearing; in no acute distress HEENT: Head- normocephalic; Eyes- EOMI, sclera anicteric; Ears- hearing intact; Nose- no nasal discharge; Throat- mucous membranes moist Cardiovascular: regular rate and rhythm; normal S1, S2; no murmurs, rubs, clicks or gallops; no peripheral edema Respiratory: lungs clear to auscultation; without wheezes, rales or rhonchi; on room air Abdomen: soft, non-tender, non-distended; positive bowel sounds Neurological: oriented x 3; normal speech; no focal findings or movement disorder noted Musculoskeletal: no significant deformity or tenderness to palpation Skin: normal coloration; no obvious rashes, lesions or skin breakdown Psych: normal mood and affect Results/Medications Reviewed 03/10/2022 11:28 AM Laboratory, Microbiology, Radiology, Cardiology, and Medications * Ira Ricci CNP - 03/10/2022 8:51 AM EST Electrophysiology Inpatient Follow-up Heart & Vascular [facility] 03/10/2022 Ira Ricci CNP [facility] Patient: Kevin White Date of : 1940 (81 y.o.) PCP: Naveen Rasmussen MD Assessment: Kevin White is a 81 year old male with: + PeAF with slow ventricular rates Hx full left atrial Maze with an (EnCompass radiofrequency box lesion, radiofrequency left atrial appendage lesion, cryo right atrial caval lesion, and a cryo right atrial appendage line)/ Ligation left atrial appendage with a [address] Beasley on 07/23/2021. Patient not interested in ablation, previously on amiodarone which was discontinued 12/24/21. Presents for tikosyn loading On coumadin. #s/p AVR #CAD s/p CABG 07/2021 #Hx TIA #60% LVEF #ECHO: 10/2021 Summary 1. Left ventricular chamber dimension is normal. 2. Left ventricular systolic function is normal with an ejection fraction by Biplane Method of Discs of 60 %. 3. Normal appearance of the aortic valve bioprosthesis. The valve is well-seated. There is no bioprosthetic aortic valve stenosis with a peak velocity of 205 cm/s, mean gradient of 8 mmHg, and aortic valve area of 1.8 cm2. Dimensionless index 0.48.. 4. There is no aortic valve regurgitation. Plan 03/09/22: -Patient presents for tikosyn loading. No need for thrombus study as patient has atriclip placement, CT confirms appropriate positioning near base of HEATHER with residual HEATHER stump nonopacified. Appendage appears completely occluded. Patient remains on coumadin, reports therapeutic INRs x 4 weeks. INR2.2 today. -CrCl: 74 ml/min. Will start patient on tikosyn 500 mcg q 12 hours, first dose this evening. -Baseline QTC: 438 ms. -Replace magnesium & potassium prior to starting tikosyn. -Goal K 4.0-4.7, potassium 4.7 today -Goal Mg 2.0-2.2, mag 2.1 today -Obtain ekgs 2-3 hours after every tikosyn dose. -Goal QTC <500 ms 2 hours post dose -Goal ionized calcium >3.5 prior to starting tikosyn. -Call EP QTC >500 ms prior to giving next dose of antiarrythmic medication -Will plan for DCCV tomorrow, 03/10/22. NPO at midnight. -Continue coumadin- pharmacy to dose. Plan 03/10/22: -S\P DCCV today, patient is in NSR. -QTC following dose 1 of tikosyn last evenin ms. Dose 2+3 to be given today. -INR 2.4 this morning. Continue coumadin, pharmacy to dose. Will need coumadin to continue x 30 days post cardioversion despite atriclip. -Goal K 4.0-4.7, potassium 4.2 today -Goal Mg 2.0-2.2, mag 2.2 today -Obtain ekgs 2-3 hours after every tikosyn dose. -Goal QTC <500 ms 2 hours post dose -Call EP QTC >500 ms prior to giving next dose of antiarrythmic medication Subjective Today 03/10/22 Patient denies palpitations, dyspnea, chest discomfort,lightheadedness, dizziness, orlower extremity edema. Imaging: I independently reviewed the EKG and agree with the interpretation(s) with the following comments. ECG 12 Lead Final Result by Christiane Puckett MA (12/24/2021 1144) Echocardiogram complete Final Result by Marissa To MD (11/13/2021 1057) Echocardiogram transesophageal Final Result by Marissa To MD (06/19/2021 1545) Echocardiogram complete w contrast Final Result by Antonieta Overton MD (06/02/2021 1525) Cardiac Catheterization Final Result by Jay Montoya MD (07/01/2021 1110) Review of Systems: All system(s) were reviewed. Pertinent positive and negative findings are noted in the HPI. All system negative unless otherwise noted in the HPI. Current Facility-Administered Medications: acetaminophen (TYLENOL) tablet 650 mg, 650 mg, Oral, Q4H PRN, Adriano Hawley MD amLODIPine (NORVASC) tablet 10 mg, 10 mg, Oral, Daily, Adriano Hawley MD atorvastatin (LIPITOR) tablet 40 mg, 40 mg, Oral, Nightly, Adriano Hawley MD cyanocobalamin (B-12) tablet 1,000 mcg, 1,000 mcg, Oral, Daily, Adriano Hawley MD dofetilide (TIKOSYN) capsule 500 mcg, 500 mcg, Oral, Q12H GENIE, Ira Bustamante [facility], DRAFTER TOPOGRAPHICAL, 500 mcg at 03/09/222031 furosemide (LASIX) tablet 40 mg, 40 mg, Oral, Daily, Adriano Hawley MD insulin glargine (LANTUS) injection 20 Units, 20 Units, Subcutaneous, Nightly, Adriano Hawley MD, 20 Units at 03/09/222031 insulin lispro (AdmeLOG,HumaLOG) injection 0-15 Units, 0-15 Units, Subcutaneous, at bedtime, AlexisA. Marleen MD insulin lispro (AdmeLOG,HumaLOG) injection 0-30 Units, 0-30 Units, Subcutaneous, TID AC, Adriano Hawley MD levothyroxine (SYNTHROID, LEVOTHROID) tablet 175 mcg, 175 mcg, Oral, Daily, Adriano Hawley MD, 175 mcg at 03/10/22537 lisinopriL (PRINIVIL,ZESTRIL) tablet 10 mg, 10 mg, Oral, Daily with lunch, Adriano Hawley MD magnesium sulfate 2 g in sterile water (SW) 50 mL IVPB, 2 g, Intravenous, Daily PRN, Ira [place] Keiry [facility] melatonin tablet 3 mg, 3 mg, Oral, Nightly PRN, Adriano Hawley MD multivitamin (THERAGRAN) per tablet 1 tablet, 1 tablet, Oral, Daily, Adriano Hawley MD ondansetron (ZOFRAN-ODT) disintegrating tablet 4 mg, 4 mg, Oral, Q6H PRN OR ondansetron (ZOFRAN) injection 4 mg, 4 mg, Intravenous, Q6H PRN, Adriano Hawley MD pantoprazole (PROTONIX) EC tablet 40 mg, 40 mg, Oral, Daily, Adriano Hawley MD potassium chloride SA (K-DUR,KLOR-CON) CR tablet 20 mEq, 20 mEq, Oral, Daily, Adriano Hawley MD, 20 mEq at 03/09/22 1734 potassium chloride SA (K-DUR,KLOR-CON) CR tablet 40 mEq, 40 mEq, Oral, Daily PRN, Ira Pearsoner, [facility] senna (SENOKOT) tablet 8.6 mg, 1 tablet, Oral, BID PRN, Adriano Hawley MD Saline lock IV, , , Continuous AND sodium chloride (PF) (NS) flush 5 mL, 5 mL, Intravenous, PRNAND sodium chloride (PF) (NS) flush 5 mL, 5 mL, Intravenous, Q8H GENIE, 5 mL at 03/10/22 0538 AND sodium chloride 0.9% (NS), 0-150 mL/hr, Intravenous, PRN, Adriano Hawley MD tamsulosin (FLOMAX) 24 hr capsule 0.4 mg, 0.4 mg, Oral, Daily, Adriano Hawley MD traZODone (DESYREL) tablet 50 mg, 50 mg, Oral, Nightly PRN, Adriano Hawley MD Objective: Physical Examination: Blood pressure (!) 144/72, pulse (!) 51, temperature 97.5 F (36.4 C), temperature source Oral, resp. rate (!) 20, height 6', weight 114.4 kg (252 lb 3.2 oz), SpO2 94 %. Telemetry:NSR, HR 61 bpm. Constitutional Alert and oriented X3 in no acute distress. Head: normocephalic. Neck: No masses noted HEENT Anicteric Heart:. Normal Intensity S1 and S2. No murmurs. Lungs: Clear to auscultation. Good air movement. No crackles noted. Abdomen is soft and nontender. Extremities: Extremities are warm. No lower extremity edema. Adequate peripheral pulses. Skin: Warm, dry and intact Neuro: nonfocal Lab Results Component Value Date GLUCOSE 102 (H) 03/10/2022 CALCIUM 8.6 03/10/2022 NA 141 03/10/2022 K 4.2 03/10/2022 CL 106 03/10/2022 BUN 23 03/10/2022 CREATININE 1.01 03/10/2022 Lab Results Component Value Date WBC 5.90 03/10/2022 HGB 13.5 03/10/2022 HCT 41.1 03/10/2022 MCV 95.8 03/10/2022 PLT 158 03/10/2022 RBC 4.29 (L) 03/10/2022 Lab Results Component Value Date ALT 23 03/10/2022 AST 13 03/10/2022 ALKPHOS 64 03/10/2022 BILITOT 0.5 03/10/2022 Serum creatinine: 1.01 mg/dL 03/10/22 0411 Estimated creatinine clearance: 64 mL/min documented in this [id number] Note* Pharmacy Note - Stacia Pritchett RPh,PharmD - 03/12/2022 7:15 AM EST PHARMACOTHERAPY NOTE: Warfarin Consult Assessment / Plan: INR Trend and Dose History: Date INR Warfarin Dose Reversal Agents New Interacting Medications 03/09 2.2 5 mg 03/10 2.4 5 mg 03/11 2.6 5 mg 03/12 3.0 hold Pharmacy is managing warfarin dosing for this patient utilizing the following parameters: indication Atrial Fibrillation Goal INR Min 2.0 Goal INR Max 3.0 Based on patient risk factors, interacting medications, and INR trends, warfarin dose is 0 mg tonight to continue usual home dosing regimen. Steady increase in INR this admission with INR now at the top of goal. Will order and evaluate PT/INR daily. Please contact pharmacy if you have any questions regarding warfarin dosing. Subjective: Pharmacy is consulted to manage warfarin dosing for Kevin White, a 81 y.o. male continuing on warfarin therapy: Home dose is 5 mg daily . Last home dose was unknown mg on unknown date . INR on admission was 2.2. Past medical history reviewed. Objective: Hemorrhagic Risk Factors and other considerations include Age greater than 65, Diabetes, History ofCVA, Vascular Disease. Additional Anticoagulation: N/A. Dietary Considerations: Diet Ordered Labs include: Hemoglobin Date Value Ref Range Status 03/10/2022 13.5 13.5 - 17.5 g/dL Final Platelets Date Value Ref Range Status 03/10/2022 158 150 - 400 K/mcL Final Albumin Date Value Ref Range Status 03/12/2022 3.4 3.2 - 5.2 g/dL Final Pharmacist: Stacia Pritchett RPh,PharmD Contact Number: [phone] [id number] Note* Plan of Care - Cesia Saha RN - 03/12/2022 3:28 AM EST Problem: Actual or potential alteration in health Goal: Absence of healthcare acquired conditions Outcome: Not Met Goal: Knowledge of Interdisciplinary Plan of Care Outcome: Not Met Goal: Knowledge of Enviroment Outcome: Not Met [place] [id number] Note* Plan of Care - Sanya Bedolla RN - 03/11/2022 3:15 PM EST Problem: Actual or potential alteration in health Goal: Absence of healthcare acquired conditions 03/11/2022 1515 by Sanya Bedolla, RN Outcome: Met 03/11/2022 151 by Sanya Bedolla, RN Outcome: Met Goal: Knowledge of Interdisciplinary Plan of Care 03/11/2022 1515 by Sanya Bedolla RN Outcome: Met 03/11/2022 1515 by Sanya Bedolla RN Outcome: Partially Met Goal: Knowledge of Enviroment 03/11/2022 1515 by Sanya Bedolla RN Outcome: Met 03/11/2022 1515 by Sanya Bedolla RN Outcome: Partially Met [id number] Note* Pharmacy Note - Kallie Baer RPh,PharmD - 03/11/2022 9:21 AM EST PHARMACOTHERAPY NOTE: Warfarin Consult Assessment / Plan: INR Trend and Dose History: Date INR Warfarin Dose Reversal Agents New Interacting Medications 03/09 2.2 5 mg 03/10 2.4 5 mg 03/11 2.6 5 mg Pharmacy is managing warfarin dosing for this patient utilizing the following parameters: indication Atrial Fibrillation Goal INR Min 2.0 Goal INR Max 3.0 Based on patient risk factors, interacting medications, and INR trends, warfarin dose is 5 mg tonight to continue usual home dosing regimen. Will order and evaluate PT/INR daily. Please contact pharmacy if you have any questions regarding warfarin dosing. Subjective: Pharmacy is consulted to manage warfarin dosing for Kevin White, a 81 y.o. male continuing on warfarin therapy: Home dose is 5 mg daily . Last home dose was unknown mg on unknown date . INR on admission was 2.2. Past medical history reviewed. Objective: Hemorrhagic Risk Factors and other considerations include Age greater than 65, Diabetes, History ofCVA, Vascular Disease. Additional Anticoagulation: N/A. Dietary Considerations: Diet Ordered Labs include: Hemoglobin Date Value Ref Range Status 03/10/2022 13.5 13.5 - 17.5 g/dL Final Platelets Date Value Ref Range Status 03/10/2022 158 150 - 400 K/mcL Final Albumin Date Value Ref Range Status 03/11/2022 3.6 3.2 - 5.2 g/dL Final Pharmacist: Kallie Baer RPh,PharmD Contact Number: [phone] [facility] [id number] Note* Plan of Care - [place] RN - 03/10/2022 1:35 PM EST Problem: Actual or potential alteration in health Goal: Absence of healthcare acquired conditions Outcome: Partially Met Goal: Knowledge of Interdisciplinary Plan of Care Outcome: Partially Met Goal: Knowledge of Enviroment Outcome: Partially Met [id number] Procedure note* Vanda Muir MD - 03/10/2022 11:24 AM EST Procedures EXTERNAL CARDIOVERSION NOTE MR #: [id number] : 1940 Sedation Plan: Moderate sedation using Propofol. Ruth Protocol: 1. Pre-procedure verification: - Correct patient, correct site, correct procedure (correct patient verified against two identifiers: name and date of ) - H&P or H&P update complete and in medical record - Consent form completed and signed: Yes - Informed consent risks: bleeding, pain, infections, vascular compromise - Review of: Radiology images, scans, labs, pathology, biopsy reports with appropriate identifiers (if applicable) - Any required blood products, implants, devices, and/or special equipment for the procedure (if applicable) Procedure Details: The patient was in a fasting non-absorptive state. The patient was connected to continuous electrocardiographic monitoring, non-invasive blood pressure, pulse oximetry, and a well running IV access line. Anterior and posterior defibrillation pads were placed in the usual fashion. Intravenous sedation was administered using Propofol. When adequate sedation was achieved, a synchronized biphasic shock was delivered via the defibrillation pads. (200J x1) Cardioversion Details: Arrhythmia Type:Atrial fibrillation The patient awakened shortly thereafter fully neurologically intact and hemodynamically stable and was observed in the patient care unit. Complications: None Conclusions/Diagnosis: Successful cardioversion to NSR [facility] Work Phone: [phone] 672-906601-24-2023 Procedure note* Vanda Muir MD - 03/10/2022 11:24 AM EST Procedures EXTERNAL CARDIOVERSION NOTE MR #: [id number] : 1940 Sedation Plan: Moderate sedation using Propofol. Ruth Protocol: 1. Pre-procedure verification: - Correct patient, correct site, correct procedure (correct patient verified against two identifiers: name and date of ) - H&P or H&P update complete and in medical record - Consent form completed and signed: Yes - Informed consent risks: bleeding, pain, infections, vascular compromise - Review of: Radiology images, scans, labs, pathology, biopsy reports with appropriate identifiers (if applicable) - Any required blood products, implants, devices, and/or special equipment for the procedure (if applicable) Procedure Details: The patient was in a fasting non-absorptive state. The patient was connected to continuous electrocardiographic monitoring, non-invasive blood pressure, pulse oximetry, and a well running IV access line. Anterior and posterior defibrillation pads were placed in the usual fashion. Intravenous sedation was administered using Propofol. When adequate sedation was achieved, a synchronized biphasic shock was delivered via the defibrillation pads. (200J x1) Cardioversion Details: Arrhythmia Type:Atrial fibrillation The patient awakened shortly thereafter fully neurologically intact and hemodynamically stable and was observed in the patient care unit. Complications: None Conclusions/Diagnosis: Successful cardioversion to NSR documented in this [id number] Note* Pharmacy Note - Stacia Pritchett [facility],PharmD - 03/10/2022 10:47 AM EST PHARMACOTHERAPY NOTE: Warfarin Consult Assessment / Plan: INR Trend and Dose History: Date INR Warfarin Dose Reversal Agents New Interacting Medications 03/09 2.2 5 mg 03/10 2.4 5 mg Pharmacy is managing warfarin dosing for this patient utilizing the following parameters: indication Atrial Fibrillation Goal INR Min 2.0 Goal INR Max 3.0 Based on patient risk factors, interacting medications, and INR trends, warfarin dose is 5 mg tonight to continue usual home dosing regimen Will order and evaluate PT/INR daily. Please contact pharmacy if you have any questions regarding warfarin dosing. Subjective: Pharmacy is consulted to manage warfarin dosing for Kevin White, a 81 y.o. male continuing on warfarin therapy: Home dose is 5 mg daily . Last home dose was unknown mg on unknown date . INR on admission was 2.2. Past medical history reviewed. Objective: Hemorrhagic Risk Factors and other considerations include Age greater than 65, Diabetes, History ofCVA, Vascular Disease. Additional Anticoagulation: N/A. Dietary Considerations: Diet Ordered Labs include: Hemoglobin Date Value Ref Range Status 03/10/2022 13.5 13.5 - 17.5 g/dL Final Platelets Date Value Ref Range Status 03/10/2022 158 150 - 400 K/mcL Final Albumin Date Value Ref Range Status 03/10/2022 3.4 3.2 - 5.2 g/dL Final Pharmacist: Stacia Pritchett RPh,PharmD Contact Number: [phone] [id number] Note* Pharmacy Note - Cesia Slaughter RPh,PharmD - 03/09/2022 4:18 PM EST PHARMACOTHERAPY NOTE: Warfarin Consult Assessment / Plan: INR Trend and Dose History: Date INR Warfarin Dose Reversal Agents New Interacting Medications 03/09 2.2 5 mg per home regimen Pharmacy is managing warfarin dosing for this patient utilizing the following parameters: indication Atrial Fibrillation Goal INR Min 2.0 Goal INR Max 3.0 Based on patient risk factors, interacting medications, and INR trends, warfarin dose is 5 mg tonight. Will order and evaluate PT/INR daily. Please contact pharmacy if you have any questions regarding warfarin dosing. Subjective: Pharmacy is consulted to manage warfarin dosing for Kevin White, a 81 y.o. male continuing on warfarin therapy: Home dose is 5 mg daily . Last home dose was unknown mg on unknown date . INR on admission was 2.2. Past medical history reviewed. Objective: Hemorrhagic Risk Factors and other considerations include Age greater than 65, Diabetes, History ofCVA, Vascular Disease. Additional Anticoagulation: N/A. Dietary Considerations: Diet Ordered Labs include: Hemoglobin Date Value Ref Range Status 03/09/2022 14.5 13.5 - 17.5 g/dL Final Platelets Date Value Ref Range Status 03/09/2022 160 150 - 400 K/mcL Final Albumin Date Value Ref Range Status 08/11/2021 4.9 3.2 - 5.2 g/dL Final Pharmacist: Cesia Slaughter RPh,PharmD Contact Number: [phone] [id number] Note* Plan of Care - Kassidy Escalona RN - 03/09/2022 2:21 PM EST Problem: Actual or potential alteration in health Goal: Absence of healthcare acquired conditions Outcome: Partially Met Goal: Knowledge of Interdisciplinary Plan of Care Outcome: Partially Met Goal: Knowledge of Enviroment Outcome: Partially Met [id number] History and physical note* Adriano Hawley MD - 03/09/2022 2:10 PM EST [facility] [place] [facility] Patient Name: Kevin White : 1940 MR #: [id number] Admit Date: 03/09/2022 Physicians: Naveen Rasmussen MD (Family); Vanda Muir MD (Referring) Kevin White is a 81 y.o. male patient of Naveen Rasmussen MD with history of Afib on Anticoagulation with warfarin, CHF, CAD s/ CABG, hyperlipidemia, Diabetes, NAJMA presented to [facility] for elective Tikosyn loading for Afib. Hx of Afib with slow ventricular rate on AC Planned for Tikosyn loading w/DCCV CAD s/p CABG x 3 S/P Aortic Valve replacement for Daily EKG Baseline labs, cbc,chem, ionized calcium, mg, TFTs, INR Echo 10/2021-EF 60% no wall motion abnormalities Goal K >4.0, Mg >2.0 Obtain ekgs 2-3 hours after every tikosyn dose Goal QTC <500 ms 2 hours post dose Call EP QTC >500 ms prior to giving next dose of Tikosyn Consult EP Meds: Warfarin, Tikosyn (per EP), Atorvastatin, Lisinopril Diabetes Mellitus Diabetic diet Last A1c 08/11/21-7.6% Current A1c:pending Medications: Insulin, (hold home metformin) Sliding scale insulin Hypertension Amlodipine, Lisinopril CHF Diastolic -on in exacerbation Lasix daily COPD/NAJMA Obesity-BMI 34 Non-complaint with CPAP at night Encouraged on compliant with CPAP and lifestyle modification Hyperlipidemia Rosuvastatin (substituted w/ Atorvastatin in hosp) Hx of Stroke Rosuvastatin (substituted w/ Atorvastatin in hosp) Hypothyroidism Levothyroxine Recent COVID infection 01/2022 No tx Code Status: Full Code Medication Reconciliation: Unverified Residence prior to admission: house or apartment Was patient transferred from outlying hospital or ED no Quality Measures DVT Prophylaxis: warfarin Adame Catheter: absent Risk variables present on admission:Cardiac Arrhythmia. Please see assessment and plan for further details. Chief Complaint Afib planned for elective tikosyn loading History of Present Illness This is a 81-year-old man with history of A. fib on anticoagulation, CAD, CHF, COPD, diabetes, hyperlipidemia, hypertension, NAJMA presenting on account of elective Tikosyn loading for atrial fibrillation. Patient has history of atrial fibrillation and is on anticoagulation with warfarin, he has had history of cardioversion to NSR but reverted back to A. fib. Of note he was on Eliquis but recently changed to warfarin for anticoagulation and amiodarone was discontinued 12/24/2021 by laboratory secretary. Patient denies any chest pain, palpitations, no overt bleeding (no melena, hematochezia, hematemesis, hematuria). He admits to shortness of breath on exertion but states this is chronic. Past Medical History Past Medical History: Diagnosis Date Arthritis Back pain CHF (congestive heart failure) (HCC) COPD (chronic obstructive pulmonary disease) (HCC) Coronary artery disease Diabetes mellitus (HCC) Diabetes mellitus, type 2 (HCC) Disease of thyroid gland GERD (gastroesophageal reflux disease) Hernia of abdominal wall Hyperlipidemia Hypertension Myocardial infarction (HCC) Sleep apnea, obstructive refuses to use c-pap Stroke (HCC) Past Surgical History Past Surgical History: Procedure Laterality Date CABG AVR W/ MAZE Bilateral 08/12/2021 Procedure: CORONARY ARTERY BYPASS GRAFT TIMES THREE (krueger-lad, svg-d1, svg- drca)WITH ENDOVEIN HARVEST, Aortic valve replacement (27mm Paul Inspiris), full LA MAZE (Encompass RFA box, RFA HEATHER, cryoRA caval and RAA line), LEFT ATRIAL APPENDAGE LIGATION (40mm AtriCLIP), TRANSESOPHAGEAL ECHOCARDIOGRAM; Surgeon: Luis Beasley MD; Location: [facility]; Service: Cardiothoracic CARDIAC CATHETERIZATION CARDIAC CATHETERIZATION Bilateral 07/01/2021 No intervention, right radial CARDIAC CATHETERIZATION N/A 07/01/2021 Procedure: Coronary Angiogram; Surgeon: Shmuel Villalpando MD; Location[facility]; Service: Cardiovascular CARDIAC CATHETERIZATION N/A 07/01/2021 Procedure: Right Heart Cath; Surgeon: Shmuel Villalpando MD; Location: [facility]; Service: Cardiovascular CARDIAC CATHETERIZATION N/A 07/01/2021 Procedure: Left Ventriculogram; Surgeon: Shmuel Villalpando MD; Location: [facility]; Service: Cardiovascular CARDIAC CATHETERIZATION N/A 07/01/2021 Procedure: Left Heart Cath; Surgeon: Shmuel Villalpando MD; Location: [facility]; Service: Cardiovascular cataracts removed Bilateral CORONARY STENT PLACEMENT EP - INTERVENTION N/A 08/24/2021 Procedure: Cardioversion/CTA; Surgeon: Abhishek Lauren MD; Location: [facility] EP LAB; Service: Cardiovascular HERNIA REPAIR W/HYDROCELE Right Family History Family History Problem Relation Age of Onset Heart disease Father Social History Social History Tobacco Use Smoking Status Never Smokeless Tobacco Never Social History Substance and Sexual Activity Alcohol Use Not Currently Social History Substance and Sexual Activity Drug Use Never Allergy Information I have reviewed the patient's allergies. Patient has no known allergies. Home Medications Home medications were reviewed. Review Of Systems All systems have been reviewed and are negative except as noted in HPI or below Physical Examination BP 137/85 Pulse (!) 59 Temp 98.7 F (37.1 C) (Oral) Resp 16 SpO2 90% General Appearance: alert; well appearing; in no acute distress HEENT: Head- normocephalic; Eyes- EOMI, sclera anicteric; Ears- hearing intact; Nose- no nasal discharge; Throat- mucous membranes moist Cardiovascular: regular rate and rhythm; normal S1, S2; no murmurs, rubs, clicks or gallops; 1+ peripheral edema Respiratory: lungs clear to auscultation; without wheezes, rales or rhonchi; on room air Abdomen: soft, non-tender, non-distended; positive bowel sounds Neurological: oriented x 3; normal speech; no focal findings or movement disorder noted Musculoskeletal: no significant deformity or tenderness to palpation Skin: normal coloration; no obvious rashes, lesions or skin breakdown Psych: normal mood and affect Laboratory and Additional Data Reviewed Laboratory 03/09/22 2:15 PM Microbiology 03/09/22 2:15 PM Radiology 03/09/22 2:15 PM Cardiology 03/09/22 2:15 PM Medications 03/09/22 2:15 PM [id number] History and physical note* Adriano Hawley MD - 03/09/2022 2:10 PM EST [facility] [place] [facility] Patient Name: Kevin White : 1940 MR #: [id number] Admit Date: 03/09/2022 Physicians: Naveen Rasmussen MD (Family); Vanda Muir MD (Referring) Kevin White is a 81 y.o. male patient of Naveen Rasmussen MD with history of Afib on Anticoagulation with warfarin, CHF, CAD s/ CABG, hyperlipidemia, Diabetes, NAJMA presented to [facility] for elective Tikosyn loading for Afib. Hx of Afib with slow ventricular rate on AC Planned for Tikosyn loading w/DCCV CAD s/p CABG x 3 S/P Aortic Valve replacement for Daily EKG Baseline labs, cbc,chem, ionized calcium, mg, TFTs, INR Echo 10/2021-EF 60% no wall motion abnormalities Goal K >4.0, Mg >2.0 Obtain ekgs 2-3 hours after every tikosyn dose Goal QTC <500 ms 2 hours post dose Call EP QTC >500 ms prior to giving next dose of Tikosyn Consult EP Meds: Warfarin, Tikosyn (per EP), Atorvastatin, Lisinopril Diabetes Mellitus Diabetic diet Last A1c 08/11/21-7.6% Current A1c:pending Medications: Insulin, (hold home metformin) Sliding scale insulin Hypertension Amlodipine, Lisinopril CHF Diastolic -on in exacerbation Lasix daily COPD/NAJMA Obesity-BMI 34 Non-complaint with CPAP at night Encouraged on compliant with CPAP and lifestyle modification Hyperlipidemia Rosuvastatin (substituted w/ Atorvastatin in hosp) Hx of Stroke Rosuvastatin (substituted w/ Atorvastatin in hosp) Hypothyroidism Levothyroxine Recent COVID infection 01/2022 No tx Code Status: Full Code Medication Reconciliation: Unverified Residence prior to admission: house or apartment Was patient transferred from outlying hospital or ED no Quality Measures DVT Prophylaxis: warfarin Adame Catheter: absent Risk variables present on admission:Cardiac Arrhythmia. Please see assessment and plan for further details. Chief Complaint Afib planned for elective tikosyn loading History of Present Illness This is a 81-year-old man with history of A. fib on anticoagulation, CAD, CHF, COPD, diabetes, hyperlipidemia, hypertension, NAJMA presenting on account of elective Tikosyn loading for atrial fibrillation. Patient has history of atrial fibrillation and is on anticoagulation with warfarin, he has had history of cardioversion to NSR but reverted back to A. fib. Of note he was on Eliquis but recently changed to warfarin for anticoagulation and amiodarone was discontinued 12/24/2021 by laboratory secretary. Patient denies any chest pain, palpitations, no overt bleeding (no melena, hematochezia, hematemesis, hematuria). He admits to shortness of breath on exertion but states this is chronic. Past Medical History Past Medical History: Diagnosis Date Arthritis Back pain CHF (congestive heart failure) (HCC) COPD (chronic obstructive pulmonary disease) (HCC) Coronary artery disease Diabetes mellitus (HCC) Diabetes mellitus, type 2 (HCC) Disease of thyroid gland GERD (gastroesophageal reflux disease) Hernia of abdominal wall Hyperlipidemia Hypertension Myocardial infarction (HCC) Sleep apnea, obstructive refuses to use c-pap Stroke (HCC) Past Surgical History Past Surgical History: Procedure Laterality Date CABG AVR W/ MAZE Bilateral 08/12/2021 Procedure: CORONARY ARTERY BYPASS GRAFT TIMES THREE (krueger-lad, svg-d1, svg- drca)WITH ENDOVEIN HARVEST, Aortic valve replacement (27mm Paul Inspiris), full LA MAZE (Encompass RFA box, RFA HEATHER, cryoRA caval and RAA line), LEFT ATRIAL APPENDAGE LIGATION (40mm AtriCLIP), TRANSESOPHAGEAL ECHOCARDIOGRAM; Surgeon: Luis Beasley MD; Location: [facility]; Service: Cardiothoracic CARDIAC CATHETERIZATION CARDIAC CATHETERIZATION Bilateral 07/01/2021 No intervention, right radial CARDIAC CATHETERIZATION N/A 07/01/2021 Procedure: Coronary Angiogram; Surgeon: Shmuel Villalpando MD; Location: [facility]; Service: Cardiovascular CARDIAC CATHETERIZATION N/A 07/01/2021 Procedure: Right Heart Cath; Surgeon: Shmuel Villalpando MD; Location: [facility]; Service: Cardiovascular CARDIAC CATHETERIZATION N/A 07/01/2021 Procedure: Left Ventriculogram; Surgeon: Shmuel Villalpando MD; Location: [facility]; Service: Cardiovascular CARDIAC CATHETERIZATION N/A 07/01/2021 Procedure: Left Heart Cath; Surgeon: Shmuel Villalpando MD; Location: [facility]; Service: Cardiovascular cataracts removed Bilateral CORONARY STENT PLACEMENT EP - INTERVENTION N/A 08/24/2021 Procedure: Cardioversion/CTA; Surgeon: Abhishek Lauren MD; Location: [facility]; Service: Cardiovascular HERNIA REPAIR W/HYDROCELE Right Family History Family History Problem Relation Age of Onset Heart disease Father Social History Social History Tobacco Use Smoking Status Never Smokeless Tobacco Never Social History Substance and Sexual Activity Alcohol Use Not Currently Social History Substance and Sexual Activity Drug Use Never Allergy Information I have reviewed the patient's allergies. Patient has no known allergies. Home Medications Home medications were reviewed. Review Of Systems All systems have been reviewed and are negative except as noted in HPI or below Physical Examination BP 137/85 Pulse (!) 59 Temp 98.7 F (37.1 C) (Oral) Resp 16 SpO2 90% General Appearance: alert; well appearing; in no acute distress HEENT: Head- normocephalic; Eyes- EOMI, sclera anicteric; Ears- hearing intact; Nose- no nasal discharge; Throat- mucous membranes moist Cardiovascular: regular rate and rhythm; normal S1, S2; no murmurs, rubs, clicks or gallops; 1+ peripheral edema Respiratory: lungs clear to auscultation; without wheezes, rales or rhonchi; on room air Abdomen: soft, non-tender, non-distended; positive bowel sounds Neurological: oriented x 3; normal speech; no focal findings or movement disorder noted Musculoskeletal: no significant deformity or tenderness to palpation Skin: normal coloration; no obvious rashes, lesions or skin breakdown Psych: normal mood and affect Laboratory and Additional Data Reviewed Laboratory 03/09/22 2:15 PM Microbiology 03/09/22 2:15 PM Radiology 03/09/22 2:15 PM Cardiology 03/09/22 2:15 PM Medications 03/09/22 2:15 PM documented in this [id number] Instructions* Patient Instructions* Leonidas Nunes RN - 12/24/2021 12:21 PM EST Check INR once a week for one month. Stop Amiodarone today. The hospital will call you on 01-26 to come in to hospital. documented in this [id number] History of Present illness Narrative* Vanda Muir MD - 12/24/2021 12:14 PM EST Heart & Vascular Clinic Note [facility] Visit Date: 12/24/2021 Patient Name: Kevin White : 1940 Reason for Visit: Initial Visit (Intake) (KEVIN/Irasema ) ASSESSMENT: #Atrial fibrillation: Pt. Currently in A.fib w/ slow ventricular rates. Discussed treatment options and patient will like to change medications at this time. He is not very interested in a catheter ablation. #s/p AVR #CAD s/p CABG #ECHO: 10/2021 Summary 1. Left ventricular chamber dimension is normal. 2. Left ventricular systolic function is normal with an ejection fraction by Biplane Method of Discs of 60 %. 3. Normal appearance of the aortic valve bioprosthesis. The valve is well-seated. There is no bioprosthetic aortic valve stenosis with a peak velocity of 205 cm/s, mean gradient of 8 mmHg, and aortic valve area of 1.8 cm2. Dimensionless index 0.48.. 4. There is no aortic valve regurgitation. PLAN: --Stop amiodarone today --pursue tikosyn load in 3-4weeks with DCCV --Will need INR checked every week leading up to that. --f/u 4mths. HPI: Kevin White is a 81 y.o. male who presents today to discuss management of A.fib. He is s/p Aortic valve replacement with a 27 mm Paul Inspiris pericardial valve/Coronary artery bypass grafting x3 with a left internal mammary artery to the left anterior descending, saphenous vein graft to the first diagonal, and saphenous vein graft to the distal right coronary artery/endoscopic vein harvest of the left le/Full left atrial Maze with an (EnCompass radiofrequency box lesion, radiofrequency left atrial appendage lesion, cryo right atrial caval lesion, and a cryo right atrialappendage line)/ Ligation left atrial appendage with a [address] Beasley on 07/23/2021. He was cardioverted to NSR while admitted. Since then, he has gone back into A.fib. He feels more fatigued and sleeps more often. Histories Past Medical History: Diagnosis Date Arthritis Back pain CHF (congestive heart failure) (HCC) COPD (chronic obstructive pulmonary disease) (HCC) Coronary artery disease Diabetes mellitus (HCC) Diabetes mellitus, type 2 (HCC) Disease of thyroid gland GERD (gastroesophageal reflux disease) Hernia of abdominal wall Hyperlipidemia Hypertension Myocardial infarction (HCC) Sleep apnea, obstructive refuses to use c-pap Stroke ([facility]) Past Surgical History: Procedure Laterality Date CABG AVR W/ MAZE Bilateral 08/12/2021 Procedure: CORONARY ARTERY BYPASS GRAFT TIMES THREE (krueger-lad, svg-d1, svg- drca)WITH ENDOVEIN HARVEST, Aortic valve replacement (27mm Paul Inspiris), full LA MAZE (Encompass RFA box, RFA HEATHER, cryoRA caval and RAA line), LEFT ATRIAL APPENDAGE LIGATION (40mm AtriCLIP), TRANSESOPHAGEAL ECHOCARDIOGRAM; Surgeon: Luis Beasley MD; Location: [facility]; Service: Cardiothoracic CARDIAC CATHETERIZATION CARDIAC CATHETERIZATION Bilateral 07/01/2021 No intervention, right radial CARDIAC CATHETERIZATION N/A 07/01/2021 Procedure: Coronary Angiogram; Surgeon: Shmuel Villalpando MD; Location: [facility]; Service: Cardiovascular CARDIAC CATHETERIZATION N/A 07/01/2021 Procedure: Right Heart Cath; Surgeon: Shmuel Villalpando MD; Location: [facility]; Service: Cardiovascular CARDIAC CATHETERIZATION N/A 07/01/2021 Procedure: Left Ventriculogram; Surgeon: Shmuel Villalpando MD; Location: [facility]; Service: Cardiovascular CARDIAC CATHETERIZATION N/A 07/01/2021 Procedure: Left Heart Cath; Surgeon: Shmuel Villalpando MD; Location: [facility]; Service: Cardiovascular cataracts removed Bilateral CORONARY STENT PLACEMENT EP - INTERVENTION N/A 08/24/2021 Procedure: Cardioversion/CTA; Surgeon: Abhishek Lauren MD; Location: [facility]; Service: Cardiovascular HERNIA REPAIR W/HYDROCELE Right Family History Problem Relation Age of Onset Heart disease Father Social History Socioeconomic History Marital status: Spouse name: Antonella Occupational History Employer: OTHER- Occupation: Retired from [employer] Tobacco Use Smoking status: Never Smokeless tobacco: Never Vaping Use Vaping Use: Never used Substance and Sexual Activity Alcohol use: Not Currently Drug use: Never Patient has no known allergies. Patient's Medications New Prescriptions No medications on file Previous Medications ACETAMINOPHEN (TYLENOL) 325 MG TABLET Take 2 (two) tablets (650 mg total) by mouth every 4 (four) hours as needed . AMIODARONE (CORDARONE) 200 MG TABLET Take 1 (one) tablet (200 mg total) by mouth daily . AMLODIPINE (NORVASC) 10 MG TABLET Take 1 (one) tablet (10 mg total) by mouth daily Start: 08/25/21. APIXABAN (ELIQUIS) 5 MG TAB Take 5 mg by mouth 2 (two) times a day . ASPIRIN 81 MG CHEWABLE TABLET Chew and Swallow 2 (two) tablets (162 mg total) daily Start: 08/25/21. CYANOCOBALAMIN (B-12) 1000 MCG TABLET Take 1,000 mcg by mouth daily . ESOMEPRAZOLE (NEXIUM) 40 MG CAPSULE Take 40 mg by mouth every morning before breakfast . FUROSEMIDE (LASIX) 20 MG TABLET Take 2 (two) tablets (40 mg total) by mouth daily . INSULIN GLARGINE (LANTUS SOLOSTAR U-100 INSULIN) 100 UNIT/ML (3 ML) INPN Inject 22 (twenty two) Units under the skin daily with dinner . LEVOTHYROXINE (SYNTHROID, LEVOTHROID) 175 MCG TABLET Take 175 mcg by mouth daily . LISINOPRIL (PRINIVIL,ZESTRIL) 10 MG TABLET Take 1 (one) tablet (10 mg total) by mouth daily with lunch Start: 08/25/21. METFORMIN (GLUCOPHAGE) 500 MG TABLET Take 1 (one) tablet (500 mg total) by mouth 2 (two) times a day with meals Hold until repeat chem 7 . METOPROLOL TARTRATE (LOPRESSOR) 25 MG TABLET Take 0.5 (one-half) tablet (12.5 mg total) by mouth 2 (two) times a day . POTASSIUM CHLORIDE SA (K-DUR,KLOR-CON) 20 MEQ TABLET Take 1 (one) tablet (20 mEq total) by mouth daily . ROSUVASTATIN (CRESTOR) 40 MG TABLET Take 40 mg by mouth daily . TAMSULOSIN (FLOMAX) 0.4 MG CAPSULE Take 0.4 mg by mouth daily . THERAPEUTIC MULTIVITAMIN (THERAGRAN) TABLET Take 1 tablet by mouth daily . TRAZODONE (DESYREL) 50 MG TABLET Take 50 mg by mouth nightly as needed . Modified Medications No medications on file Discontinued Medications No medications on file No Known Allergies Review of Systems All system(s) were reviewed. Pertinent positive and negative findings are noted in the HPI. All system negative unless otherwise noted in the HPI PACU Vitals 12/24/21 1143 BP: 130/79 Pulse: (!) 50 SpO2: 97% G: NAD HEENT: Anicteric Chest/Lung: CTA c/l, no wheezes, rubs, or rales CVS: S1 S2 no S3,4, no galops, rubs or murmurs Ab: Soft, NT, ND no guarding or rigidity LE: No edema Skin: Intact Neuro: non Focal Psychiatric: non Suicidal, non homicidal Lab Results Component Value Date GLUCOSE 127 (H) 08/24/2021 CALCIUM 8.3 (L) 08/24/2021 NA 136 08/24/2021 K 4.2 08/24/2021 CL 98 08/24/2021 BUN 33 (H) 08/24/2021 CREATININE 1.10 08/24/2021 Lab Results Component Value Date INR 1.4 (H) 08/13/2021 INR 1.5 (H) 08/12/2021 INR 1.5 (H) 08/12/2021 PROTIME 16.8 (H) 08/13/2021 PROTIME 17.5 (H) 08/12/2021 PROTIME 18.0 (H) 08/12/2021 ECG reviewed Echocardiogram: reviewed Other workup reviewed ASSESSMENT & PLAN: See above Vanda Muir [id number] documented in this [id number] History of Present illness Narrative* Shmuel Villalpando MD - 10/17/2021 9:50 AM EDT CARDIOLOGY PROGRESS NOTE [facility] [address] [facility] [address] [facility] [id number] Physicians: Naveen Rasmussen MD (Family); No ref. provider found (Referring) Subjective: Kevin White is a 81 y.o. male seen in the office today for Follow-up . HPI: Patient presents in cardiovascular follow-up. He is accompanied by his on his office visit this morning. Very pleasant 81-year-old gentleman with severe symptomatic aortic valve stenosis, history of short-term memory loss, history of chronic persistent atrial fibrillation, and a history of TIA. Patient has underlying obstructive sleep apnea noncompliant with CPAP therapy. Patient has had previous catheter- based intervention to the right coronary artery and posterior circulations. Patient was evaluated at the structural heart team following angiographic identification of severe epicardial coronary disease and VIANEY that demonstrated aortic valve area of 0.8 cm . It was recommended to proceed with surgical aortic valve replacement and bypass grafting. This was performed at [place] by Dr. Beasley with the operative procedure consisting of surgical aortic valve replacement witha 27mm Paul Inspiris pericardial valve and three-vessel bypass grafting using a left internal mammary artery to the left anterior descending, saphenous vein graft to the first diagonal, and a saphenous vein graft to the distal right conduit. Patient had full left atrial maze and ligation of leftatrial appendage with a 40mm AtriClip. Patient underwent cardioversion to sinus rhythm at discharge. In the office patient states he is less short of breath and has had improvement in his exercise tolerance. Patient states he has episodic spells of dizziness that have been persistent over the past several months. No syncope. He has not been describing shortness of breath or chest discomfort with activities of daily living. Patient's says he lives a fairly sedentary lifestyle. He continues to work by [employer] to work. He has been anticipating in cardiac rehab in [place]. No PND or orthopnea. Compliant with his medical regiment. Assessment/plan: Patient appears reasonably well compensated at the present time and I recommended he continue on his current medical regiment. I would like to obtain ambulatory monitoring to assess for atrial fibrillation. I would also like to obtain 2D echocardiogram. We will follow-up with the patient closely inthe ambulatory setting. Chronic disease management and risk factor modification were reviewed. Assessment & Plan: No problem-specific Assessment & Plan notes found for this encounter. EKG Interpretation: Cannot exclude underlying atrial fibrillation. Nonspecific ST-T wave changes Follow Up Ordered: Return in about 4 months (around 02/16/2022). Patient's Medications New Prescriptions No medications on file Previous Medications ACETAMINOPHEN (TYLENOL) 325 MG TABLET Take 2 (two) tablets (650 mg total) by mouth every 4 (four) hours as needed . AMIODARONE (CORDARONE) 200 MG TABLET Take 1 (one) tablet (200 mg total) by mouth daily . AMLODIPINE (NORVASC) 10 MG TABLET Take 1 (one) tablet (10 mg total) by mouth daily Start: 08/25/21. APIXABAN (ELIQUIS) 5 MG TAB Take 5 mg by mouth 2 (two) times a day . ASPIRIN 81 MG CHEWABLE TABLET Chew and Swallow 2 (two) tablets (162 mg total) daily Start: 08/25/21. CYANOCOBALAMIN (B-12) 1000 MCG TABLET Take 1,000 mcg by mouth daily . ESOMEPRAZOLE (NEXIUM) 40 MG CAPSULE Take 40 mg by mouth every morning before breakfast . FUROSEMIDE (LASIX) 20 MG TABLET Take 2 (two) tablets (40 mg total) by mouth daily . INSULIN GLARGINE (LANTUS SOLOSTAR U-100 INSULIN) 100 UNIT/ML (3 ML) INPN Inject 22 (twenty two) Units under the skin daily with dinner . LEVOTHYROXINE (SYNTHROID, LEVOTHROID) 175 MCG TABLET Take 175 mcg by mouth daily . LISINOPRIL (PRINIVIL,ZESTRIL) 10 MG TABLET Take 1 (one) tablet (10 mg total) by mouth daily with lunch Start: 08/25/21. METFORMIN (GLUCOPHAGE) 500 MG TABLET Take 1 (one) tablet (500 mg total) by mouth 2 (two) times a day with meals Hold until repeat chem 7 . METOPROLOL TARTRATE (LOPRESSOR) 25 MG TABLET Take 0.5 (one-half) tablet (12.5 mg total) by mouth 2 (two) times a day . POTASSIUM CHLORIDE SA (K-DUR,KLOR-CON) 20 MEQ TABLET Take 1 (one) tablet (20 mEq total) by mouth daily . ROSUVASTATIN (CRESTOR) 40 MG TABLET Take 40 mg by mouth daily . TAMSULOSIN (FLOMAX) 0.4 MG CAPSULE Take 0.4 mg by mouth daily . THERAPEUTIC MULTIVITAMIN (THERAGRAN) TABLET Take 1 tablet by mouth daily . TRAZODONE (DESYREL) 50 MG TABLET Take 50 mg by mouth nightly as needed . Modified Medications No medications on file Discontinued Medications No medications on file Histories: The past history, social and family history, and allergies were reviewed and updated as needed. ROS Objective: Physical Exam Constitutional: Appearance: Normal appearance. He is well-developed. HENT: Head: Normocephalic and atraumatic. Right Ear: External ear normal. Left Ear: External ear normal. Nose: Nose normal. Eyes: Pupils: Pupils are equal, round, and reactive to light. Neck: Thyroid: No thyroid mass. Vascular: No carotid bruit, hepatojugular reflux or JVD. Cardiovascular: Rate and Rhythm: Normal rate and regular rhythm. Pulses: Intact distal pulses. Heart sounds: Normal heart sounds. Comments: Physiologic S1. Prosthetic S2. No diastolic murmur. Apical impulse diffuse although does not appear like displaced. Jugular venous pressure does not appear elevated Pulmonary: Effort: Pulmonary effort is normal. Breath sounds: Normal breath sounds. Comments: No rales or wheezes Abdominal: General: Bowel sounds are normal. Palpations: Abdomen is soft. Tenderness: There is no abdominal tenderness. Musculoskeletal: General: Normal range of motion. Cervical back: Normal range of motion and neck supple. No edema. No muscular tenderness. Comments: Venous stasis changes bilaterally Skin: General: Skin is warm and dry. Nails: There is no clubbing. Neurological: Mental Status: He is alert and oriented to person, place, and time. Cranial Nerves: No cranial nerve deficit. Deep Tendon Reflexes: Reflexes are normal and symmetric. Psychiatric: Speech: Speech normal. Behavior: Behavior normal. I personally reviewed and verified the review of systems obtained by the certified medical transcriptionist. Vitals: Vitals: 10/17/21 0918 10/17/21 0929 BP: (!) 149/82 (!) 154/75 BP Location: Left arm Left arm Patient Position: Sitting Sitting Pulse: 60 60 SpO2: 96% Weight: 112 kg (247 lb) Height: 6' 1. Paroxysmal atrial fibrillation (HCC) 2. S/P AVR 3. Coronary artery disease involving [place] coronary artery of [place] heart, unspecified whether angina present 4. Aortic stenosis, severe Shmuel Villalpando MD documented in this [id number] Instructions* Patient Instructions* Juliana Bethea RN - 10/17/2021 9:49 AM EDT Juliana HUDSON, building carpenter for Shmuel Villalpando MD [address] [place] [address], [address] [place] [id number] General office (Scheduling) documented in this [id number] History of Present illness Narrative* Ira Meyers, RAFAEL - 09/25/2021 12:50 PM EDT Office Visit Patient Name: Kevin White MR #: [id number] Assessment/Plan: I saw Kevin in the office today for the one month surgery follow-up. he is a 80 y.o. male underwentAortic valve replacement with a 27 mm Paul Inspiris pericardial valve/Coronary artery bypass grafting x3 with a left internal mammary artery to the left anterior descending, saphenous vein graft to the first diagonal, and saphenous vein graft to the distal right coronary artery/endoscopic vein harvest of the left le/Full left atrial Maze with an (EnCompass radiofrequency box lesion, radiofrequency left atrial appendage lesion, cryo right atrial caval lesion, and a cryo right atrial appendageline)/ Ligation left atrial appendage with a [address] Beasley. He had a previous history of afib and post-operatively, returned to afib. He underwent a successful DCCV and was restarted on eliquis. Today, his rhythm strip is irregular and EKG shows afib at controlled rate of 59. +2 pitting edema, no compression. Will wrap with leandra bandages in moderate compression. Increase lasix to 40mg daily. Start weight daily in morning, same time. The vitals are listed below. The surgical incisions are approximated and dry without erythema, edema or drainage. The lungs are clear and equal, reports he gets winded with long walks. The sternum is stable. Active bowel sounds in all four quadrants Activity has been progressing. He is home from SNF. We discussed cardiac rehab and a prescription was given to the patient; the local cardiac rehab facility will be called to arrange an appointment. Alley PLAN: Continue amiodarone 200 mg daily Readmission: no Pre-op carotid doppler results:< 50% bilaterally Continue ASA, statin, betablocker Appointment with PCP:Dr. Ovalle, follow with diabetes, off short acting insulin at this time Appointment with laboratory secretary: Dr. Villalpando in 3 weeks Increase lasix and K indefinitely. Weigh daily CXR without acute finding, pulmonary edema better since last image Patient's Medications New Prescriptions No medications on file Previous Medications ACETAMINOPHEN (TYLENOL) 325 MG TABLET Take 2 (two) tablets (650 mg total) by mouth every 4 (four) hours as needed . AMIODARONE (CORDARONE) 200 MG TABLET Take 1 (one) tablet (200 mg total) by mouth daily . AMLODIPINE (NORVASC) 10 MG TABLET Take 1 (one) tablet (10 mg total) by mouth daily Start: 08/25/21. APIXABAN (ELIQUIS) 5 MG TAB Take 5 mg by mouth 2 (two) times a day . ASPIRIN 81 MG CHEWABLE TABLET Chew and Swallow 2 (two) tablets (162 mg total) daily Start: 08/25/21. CYANOCOBALAMIN (B-12) 1000 MCG TABLET Take 1,000 mcg by mouth daily . ESOMEPRAZOLE (NEXIUM) 40 MG CAPSULE Take 40 mg by mouth every morning before breakfast . FUROSEMIDE (LASIX) 20 MG TABLET Take 20 mg by mouth daily . INSULIN GLARGINE (LANTUS SOLOSTAR U-100 INSULIN) 100 UNIT/ML (3 ML) INPN Inject 22 (twenty two) Units under the skin daily with dinner . INSULIN LISPRO 100 UNIT/ML INPN Humalog to be taken before each meal according to blood sugar reading before meal: 140-180:1 unit. 181-220:2 units. 221-260:3 units. 261-300:4 units. 301-340:5 units. 341-380:6 units. >381:7 units . LEVOTHYROXINE (SYNTHROID, LEVOTHROID) 175 MCG TABLET Take 175 mcg by mouth daily . LISINOPRIL (PRINIVIL,ZESTRIL) 10 MG TABLET Take 1 (one) tablet (10 mg total) by mouth daily with lunch Start: 08/25/21. METFORMIN (GLUCOPHAGE) 500 MG TABLET Take 1 (one) tablet (500 mg total) by mouth 2 (two) times a day with meals Hold until repeat chem 7 . METOPROLOL TARTRATE (LOPRESSOR) 25 MG TABLET Take 0.5 (one-half) tablet (12.5 mg total) by mouth 2 (two) times a day . POTASSIUM CHLORIDE (MICRO-K) 10 MEQ CR CAPSULE Take 10 mEq by mouth every evening . ROSUVASTATIN (CRESTOR) 40 MG TABLET Take 40 mg by mouth daily . TAMSULOSIN (FLOMAX) 0.4 MG CAPSULE Take 0.4 mg by mouth daily . THERAPEUTIC MULTIVITAMIN (THERAGRAN) TABLET Take 1 tablet by mouth daily . TRAZODONE (DESYREL) 50 MG TABLET Take 50 mg by mouth nightly as needed . Modified Medications No medications on file Discontinued Medications ATORVASTATIN (LIPITOR) 40 MG TABLET Take 1 (one) tablet (40 mg total) by mouth nightly . Physical Examination: Vital Signs: BP 114/67 (BP Location: Left arm, Patient Position: Sitting, BP Cuff Size: X- large Adult) Pulse (!) 52 Temp 98.1 F (36.7 C) (Oral) Resp 12 Ht 6' Wt 112.9 kg (249 lb) SpO2 95% BMI 33.77 kg/m ROS Physical Exam General: Alert, oriented, cooperative Lungs: Lungs clear per auscultation, respirations unlabored,normal respiratory effort Cardiovascular: Regular rate 55 and irregular rhythm, S1 and S2 normal, no murmur, rub or gallop; edema +2 pitting bilateral Abdomen: Soft, nontender incision Skin edges approx and dry without erythema, edema or drng; Neurologic: No focal deficits Psych: Mood and affect within normal documented in this [id number] History of Present illness Narrative* Jessica Daniel RN - 09/22/2021 3:52 PM EDT Referral for cardiac rehab received 08/24/21 s/p CABG. Pt would like to his rehab in [place], referral faxed 09/15/21 to [facility] cardiac rehab. documented in this [id number] History of Present illness Narrative* Ira Meyers CNP - 09/02/2021 12:37 PM EDT Cardiothoracic Surgery Virtual Visit Consult Heart & Vascular [facility] 09/02/2021 Ira Meyers CNP [address] [facility] [facility] [id number] Patient: Kevin White Date of : 1940 (80 y.o.) Referring Provider: No ref. provider found PCP: Naveen Rasmussen MD Patient Location: [facility] Video Visit Consent Statement: I discussed risks, benefits and alternatives of a video visit telemedicine consultation with the patient (and any accompanying persons) including the risks that the patient s personal health details and medical records will be discussed over real-time, synchronous, interactive video/audio/telecommunication technology, the visit will not be recorded without the express consent of both the provider and the patient, and that there are inherent diagnostic limitations compared to [id number] evaluations. We elected to proceed with the video visit telemedicine consultation. Assessment/Plan: I had telephone visit with Kevin today for the one week surgery follow-up. he is a 80 y.o. male whounderwent Aortic valve replacement with a 27 mm Paul Inspiris pericardial valve/Coronary artery bypass grafting x3 with a left internal mammary artery to the left anterior descending, saphenous vein graft to the first diagonal, and saphenous vein graft to the distal right coronary artery/endoscopic vein harvest of the left le/Full left atrial Maze with an (EnCompass radiofrequency box lesion, radiofrequency left atrial appendage lesion, cryo right atrial caval lesion, and a cryo right atrialappendage line)/ Ligation left atrial appendage with a [address] Beasley. He is currently on 3 liters per NC at the SNF saturating 93%. He has been unable to wean down to 2 liters at this time. THere have been no weights taken since initial arrival weight. Verbal order to weigh daily. Per patient, , and nurse from SNF, incisions healing well. VS review, appears stable. HR regular rh ythm per report. Patient would like to go home, [place]. Would need to have home health and oxygen set up prior to discharge. Would like weights daily. Reviewed meds, no changes at this time. No signs of bleeding per patient/SNF report. PLAN: Discussed prophylactic ATB for dental cleanings, dental procedures and invasive procedures Readmission: no Continue ASA, statin, betablocker Appointment with PCP:Dr. Rasmussen Appointment with laboratory secretary:Dr. Villalpando about 3 months Continue sternal precautions Strict daily weights Evaluate for bleeding Continue PT/OT/SN Wean oxygen as able Patient's Medications New Prescriptions No medications on file Previous Medications ACETAMINOPHEN (TYLENOL) 325 MG TABLET Take 2 (two) tablets (650 mg total) by mouth every 4 (four) hours as needed . AMIODARONE (CORDARONE) 200 MG TABLET Take 1 (one) tablet (200 mg total) by mouth daily . AMLODIPINE (NORVASC) 10 MG TABLET Take 1 (one) tablet (10 mg total) by mouth daily Start: 08/25/21. APIXABAN (ELIQUIS) 5 MG TAB Take 5 mg by mouth 2 (two) times a day . ASPIRIN 81 MG CHEWABLE TABLET Chew and Swallow 2 (two) tablets (162 mg total) daily Start: 08/25/21. ATORVASTATIN (LIPITOR) 40 MG TABLET Take 1 (one) tablet (40 mg total) by mouth nightly . ESOMEPRAZOLE (NEXIUM) 40 MG CAPSULE Take 40 mg by mouth every morning before breakfast . FUROSEMIDE (LASIX) 20 MG TABLET Take 20 mg by mouth daily . INSULIN GLARGINE (LANTUS SOLOSTAR U-100 INSULIN) 100 UNIT/ML (3 ML) INPN Inject 22 (twenty two) Units under the skin daily with dinner . INSULIN LISPRO 100 UNIT/ML INPN Humalog to be taken before each meal according to blood sugar reading before meal: 140-180:1 unit. 181-220:2 units. 221-260:3 units. 261-300:4 units. 301-340:5 units. 341-380:6 units. >381:7 units . LEVOTHYROXINE (SYNTHROID, LEVOTHROID) 175 MCG TABLET Take 175 mcg by mouth daily . LISINOPRIL (PRINIVIL,ZESTRIL) 10 MG TABLET Take 1 (one) tablet (10 mg total) by mouth daily with lunch Start: 08/25/21. METFORMIN (GLUCOPHAGE) 500 MG TABLET Take 1 (one) tablet (500 mg total) by mouth 2 (two) times a day with meals Hold until repeat chem 7 . METOPROLOL TARTRATE (LOPRESSOR) 25 MG TABLET Take 0.5 (one-half) tablet (12.5 mg total) by mouth 2 (two) times a day . POTASSIUM CHLORIDE (MICRO-K) 10 MEQ CR CAPSULE Take 10 mEq by mouth every evening . TAMSULOSIN (FLOMAX) 0.4 MG CAPSULE Take 0.4 mg by mouth daily . THERAPEUTIC MULTIVITAMIN (THERAGRAN) TABLET Take 1 tablet by mouth daily . Modified Medications No medications on file Discontinued Medications No medications on file Physical Examination: Vital Signs: BP 123/67 Pulse (!) 59 Temp 97.3 F (36.3 C) Wt 117 kg (258 lb) SpO2 93% BMI 34.99 kg/m ROS Physical Exam documented in this [id number] History of Present illness Narrative* Rosa Davila RN - 08/25/2021 7:15 AM EDT Patient s/p recent [facility] hospitalization--dc'd 08/24/21. Cardiology evaluated for afib. S/p DCCV to [facility]08/24/21. No EP cardiology follow up needed at this time. Amiodarone to be followed by CTS. Information provided on AVS. documented in this [id number] History of Present illness Narrative* Charan Russ - 08/25/2021 12:00 AM EDT [facility] NOTE NAME: MANNY WHITE NO.: [id number] DATE OF SERVICE: 08/25/2021 [facility] DATE OF : 1940 New Patient History and Physical HISTORY OF PRESENT ILLNESS: The patient is a 80-year-old male, was admitted to us from her [facility] with the diagnosis of severe symptomatic aortic stenosis and multivessel coronary artery disease, status post aortic valve replacement with CABG x3 with Maze procedure, postoperative loss anemia with consumptive thrombocytopenia, primary hypertension, hyperlipidemia, COPD, diabetes mellitus type 2, atrial fibrillation, GERD, hypothyroidism, previous myocardial infarction, obstructive sleep apnea, previous CVA, previous coronary stent placement status post cataract surgery, previous hernia repair, obesity, generalized weakness and debility. The patient had developed a worsen ing dyspnea on exertion and chest pressure. Evaluation revealed severe symptomatic non-rheumatic aortic stenosis and multivessel coronary artery disease. He was therefore admitted to the hospital. Benjie undergo CABG x3 along with aortic valve replacement and maze procedure. He did develop postoperative blood loss anemia. He was followed closely by the endocrinology service in regards to diabetesmellitus. His condition was stabilized and he is now admitted to us for continued therapy prior to returning back to his home where he lives with his . REVIEW OF SYSTEMS: He is currently sitting up in his room. He is alert and responsive. He is extremely vague and poor historian. He is unable to give me full details regarding his recent hospitalization or past medical history. He is anxious to return back home. He has had no change in his vision or hearing or actual syncope. He currently does have some shortness of breath with exertion. He does have underlying COPD, though no past smoking history. No document recent pneumonias. He has had permanent atrial fibrillation. Due to his symptoms of dyspnea on exertion and chest discomfort, he underwent further evaluation, which did reveal the severe symptomatic aortic stenosis and multivessel coronary disease, for which he underwent open heart surgery as described above. He does have hypertension and hyperlipidemia as well as hypothyroidism. His appetite has been fair. No bleeding ulcers, hepatitis, or melena. No seizures. He has apparently had prior strokes, but no significant residual documented. He is a diabetic type 2. No bleeding problems or blood clots. FAMILY HISTORY: Significant for hypertension. SOCIAL / FUNCTIONAL HISTORY: He does not smoke or abuse alcohol. 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 MEDICATIONS: Amiodarone 20 mg daily, amlodipine 10 mg daily, apixaban 5 mg b.i.d., aspirin 81 mg 2 tablets daily, atorvastatin 40 mg at bedtime, esomeprazole 40 mg daily, Flomax 0.4 mg daily, furosemide 20 mg daily, Humalog insulin sliding scale coverage, glargine insulin 22 units subcu at bedtime, levothyroxine 175 mcg daily, lisinopril 10 mg daily, metoprolol tartrate 12.5 mg b.i.d., multivitamin daily, potassium chloride 10 mEq daily, and Tylenol p.r.n. ALLERGIES: No known drug allergies. EXAMINATION: Afebrile, his vital signs are stable. He is in no distress. He does appear chronicallyill. HEENT: Extraocular movements intact. Sclerae nonicteric. Ears intact. Lungs: With decreased breath sounds, but otherwise clear. Heart: Sounds distant. Mid sternal incision nice with no evidence of infection or drainage. Abdomen: Soft, somewhat obese, non-tender. Extremities: With mild chronic bipedal edema. No calf tenderness or palpable cords. No ischemia. No cyanosis. He does have generalized weakness. IMPRESSIONS: 1. Severe symptomatic care stenosis and multivessel heart disease - he is status post aVR and triple-vessel bypass surgery. He did develop postoperative blood loss anemia. The patient will continue to receive daily incision wound care. Monitor his cognitive status closely. He is followed with Cardiology and surgery services as an outpatient. 2. Diabetes mellitus type 2 - maintain current antidiabetic regimen. Monitor blood sugars closely, make adjustment needed. 3. Chronic atrial fibrillation - he has been rate controlled. He is on amiodarone and Eliquis therapy. 4. Hypertension - monitor blood pressure closely, make adjustment as needed. 5. Previous cerebrovascular accident. Monitor for any signs of recurrence or extension. Continue with current antiplatelet therapy. 6. Functional assessment - he does have generalized weakness. He will be receiving rehab services for overall strengthening and conditioning. Her overall condition and prognosis is quite guarded. We will obtain followup labs including CBC and BMP. He will be returning upon completion of his therapy. DICTATED BY: MD COLTON Rivera/Vince JOB# [id number] cc:DR [place] of [place] documented [facility] History of Present illness Narrative* Luis Beasley MD - 07/24/2021 3:26 PM EDT CARDIOTHORACIC CONSULT NOTE Patient Name: Kevin White Admit Date: MR #: [id number] : 1940 Physicians: Naveen Rasmussen MD (Family); Shmuel Villalpando,* (Referring) Chief Complaint/Reason for Visit: sob History of Present Illness: Kevin White is a 80 y.o. y/o male presenting from home with c/o SOB. His shortness of breath is actually more dyspnea on exertion. It is becoming more short distance innature. It is alleviated by rest. He does occasionally have chest pain associated with it. He is a patient of Dr. Shmuel Villalpando and was evaluated. He had known moderate aortic stenosis and his echo was updated. This showed an ejection fraction of 65%. His right ventricle is dilated but has normal RV function. He has a trileaflet aortic valve that appears to be thickened with moderate to severe ASwith a Vmax of 3.7 m/sec and a mean gradient of 29, but a dimensionless index of 0.2. There was mild mitral regurgitation and no other valvulopathy. He did undergo transesophageal echo which revealeda valve area of 0.85 with normal systolic function as well. Left heart catheterization revealed a 70% proximal RCA, 50% distal left main, 80% proximal LAD and proximal circumflex and 70% OM1 with 60%mid LAD. He has reasonable bypass targets. He underwent TAVR protocol CT scan which does not revealsignificant atherosclerotic disease and appeared to have reasonable size root for aortic valve replacement. He is yet to undergo vein mapping or carotid duplex or pulmonary function studies. He denies lower extremity claudication. History: Past Medical History: Diagnosis Date CHF (congestive heart failure) (HCC) COPD (chronic obstructive pulmonary disease) (HCC) Coronary artery disease Diabetes mellitus (HCC) Disease of thyroid gland Hernia of abdominal wall Hyperlipidemia Hypertension Myocardial infarction (HCC) Stroke (HCC) Past Surgical History: Procedure Laterality Date CARDIAC CATHETERIZATION CARDIAC CATHETERIZATION Bilateral 07/01/2021 No intervention, right radial CARDIAC CATHETERIZATION N/A 07/01/2021 Procedure: Coronary Angiogram; Surgeon: Shmuel Villalpando MD; Location: [facility]; Service: Cardiovascular CARDIAC CATHETERIZATION N/A 07/01/2021 Procedure: Right Heart Cath; Surgeon: Shmuel Villalpando MD; Location: [facility]; Service: Cardiovascular CARDIAC CATHETERIZATION N/A 07/01/2021 Procedure: Left Ventriculogram; Surgeon: Shmuel Villalpando MD; Location: [facility]; Service: Cardiovascular CARDIAC CATHETERIZATION N/A 07/01/2021 Procedure: Left Heart Cath; Surgeon: Shmuel Villalpando MD; Location: [facility]; Service: Cardiovascular cataracts removed Bilateral CORONARY STENT PLACEMENT HERNIA REPAIR W/HYDROCELE Right Family History Problem Relation Age of Onset Heart disease Father Social History Socioeconomic History Marital status: Occupational History Employer: OTHER- Occupation: Retired from [employer] Tobacco Use Smoking status: Never Smokeless tobacco: Never Vaping Use Vaping Use: Never used Substance and Sexual Activity Alcohol use: Not Currently Drug use: Never Allergy Information: I have reviewed the patient's allergies. Patient has no known allergies. Home Medications: Outpatient Medications as of 07/24/2021 Medication Sig amLODIPine (NORVASC) 5 MG tablet Take 5 mg by mouth daily . apixaban (ELIQUIS) 5 mg Tab Take 5 mg by mouth 2 (two) times a day . esomeprazole (NEXIUM) 40 MG capsule Take 40 mg by mouth every morning before breakfast . furosemide (LASIX) 20 MG tablet Take 20 mg by mouth daily . levothyroxine (SYNTHROID, LEVOTHROID) 175 MCG tablet Take 175 mcg by mouth daily . metFORMIN (GLUCOPHAGE) 500 MG tablet Take 1 (one) tablet (500 mg total) by mouth 2 (two) times a day with meals Hold until repeat chem 7 . nitroGLYCERIN (NITROSTAT) 0.[address] 0.4 mg under the tongue every 5 (five) minutes as needed for chest pain , if no relief after 3 doses call 911 . potassium chloride (MICRO-K) 10 MEQ CR capsule Take 10 mEq by mouth daily . rosuvastatin (CRESTOR) 20 MG tablet Take 20 mg by mouth nightly . tamsulosin (FLOMAX) 0.4 mg capsule Take 0.4 mg by mouth daily . Review of Systems: The following system(s) were reviewed and pertinent findings noted: Constitutional:No fever, no weight loss Eyes:No diplopia ENT:No sinus drainage CV:No chest pain. Resp:denies copd/asthma/+ MANCIA GI:No abdominal pain.No abdominal distention denies melana :No dysuria Neuro:denies sx cva or tia Integumentary:No skin rash MuscSkel:No arthralgias Endo:denies sx dm Heme/lymphatic:No apparent lymphadenopathy Psych:No unusual mood swings Physical Examination: Vital Signs: BP 117/87 (BP Location: Right arm, Patient Position: Sitting, BP Cuff Size: X- large Adult) Pulse 65 Temp 97.8 F (36.6 C) (Oral) Resp 12 Ht 6' Wt 116.6 kg (257 lb) SpO2 94% BMI 34.86 kg/m General: Alert, cooperative, no distress, appears stated age Head: Normocephalic, without obvious abnormality, atraumatic Eyes: PERRL, conjunctiva/corneas clear, EOM's intact, fundi benign both eyes Throat: Lips, mucosa, and tongue normal; teeth and gums normal Neck: Supple, symmetrical, trachea midline, no adenopathy; thyroid: no enlargement/tenderness/nodules; no carotid bruit or JVD Lungs: Clear to auscultation bilaterally, no wheeze or rhonchi no accessory muscles used Chest Wall: No tenderness or deformity Cardiovascular: Regular rate and rhythm, S1 and S2 normal, no murmur, rub or gallop; Pulses 4+ and symmetric all extremities Abdomen: Soft, non-tender, bowel sounds active all four quadrants,no masses, no organomegaly Extremities: Normal, atraumatic, no cyanosis , no clubbing Skin: Skin color, texture, turgor normal, no rashes or lesions Musculoskeletal: Full range of motion of all extremities; no joint edema Neurologic: Awake and alert, BRAXTON x 4 equal, no focal deficeits Psych: Mood and affect appropriate Laboratory and Additional Data Reviewed: Laboratory 07/24/21 3:26 PM Microbiology 07/24/21 3:26 PM Pathology 07/24/21 3:26 PM Radiology 07/24/21 3:26 PM Cardiology 07/24/21 3:26 PM Medications 07/24/21 3:26 PM Transcriptions 07/24/21 3:26 PM Assessment and Plan: Kevin White is a 80-year-old active gentleman with severe symptomatic aortic stenosis and severe multivessel coronary artery disease and atrial fibrillation. He was reviewed in a multidisciplinary structural heart meeting at [facility] and his coronary disease was felt to be significantly complex and he should be treated with open-heart surgery 1st if possible. I do believe this is a very reasonable approach. We will obtain carotid duplex, pulmonary function studies, and if these are in order, we will proceed with aortic valve replacement, coronary artery bypass grafting, left atrial maze and isolation of his left atrial appendage. We will continue medical management of his hypertension and his atrial fibrillation on his current medication regimens. documented in this [id number] History of Present illness Narrative* Ashley Watkins RN - 07/24/2021 10:57 AM EDT Met with patient and family in office Advised once case reviewed with Dr. Luis Beasley we will be scheduling aortic valve repair replacement / coronary artery bypass grafting / endovein harvest /MAZE/ Dr. Luis Beasley requesting Atric[employer] Rep, Alfred Miller and [employer] Provided HJB Discussed HJB/ preadmission testing and date of surgery Advised we would provide hotel accommodations patient lives >[place] from [facility] Answered all questions Reviewed medications Patient NOT on aspirin or BB Will discuss with Dr. Luis Beasley advised most likely an 81 mg aspirin and low dose BB (Metoprolol 12.5 mg two times per day) to be prescribed 1 week prior to date of surgery Patient currently on 20 mg Rouvastatin Eliquis will be held 3 days Metformin will be held 2 days Advised I would outline this in my written instructions I will be sending once date of surgery and preadmission testing confirmed Bactroban to be started in Preop .CAREGIVER IDENTIFIED: (for post operative recovery) . Requested the family review the HJB, I will be calling with the date of surgery and preadmission testing date; requested we address any questions/ concerns they may have at that time. They were agreeable to the plan of care and verbalized understanding documented in this [id number] History of Present illness Narrative* Mireya Randall RN - 07/09/2021 2:18 PM EDT Pt's Anamaria called back, reviewed heart team recommendations, Anamaria aware and verbalized understanding, reports she will communicate this to the patient. Agreeable to appt with Dr Beasley to discuss. * Mireya Randall RN - 07/09/2021 10:48 AM EDT [facility] note-pt's case discussed at today's heart team meeting in [place]. Recommendations made by team to refer patient to Dr Beasley at [facility] to discuss AVR + CABG. Per team, pt has complex coronary disease, high syntax score, need to explore option of OHS first prior to pursuing complex PCI + TAVR. However, should patient not be a surgical candidate, complex PCI would require rota intervention w/IABP, and TAVR would be femoral access, conscious RN sedation, + bailout + sentinel use. Referral order placed, notified Liset Horan RN at [facility] of need for referral. Attempted to call pt and to review, unsuccessful, left VM for them to call office back to discuss. documented in this [id number] History of Present illness Narrative* Kyle Mccarthy MD - 07/07/2021 11:07 AM EDT Kevin White [phone] [facility] Kyle Mccarthy MD 07/07/21 Outpatient clinic Consultation Shmuel Villalpando, * Chief Complaint Patient presents with Follow-up Per Dr. Villalpando for severe aortic stenosis/TAVR evaluation History of Present Illness 80 years old male with a history of chronic persistent atrial fibrillation previous history of TIA on anticoagulation with Eliquis history of short-term memory loss who was referred to structural heart clinic for evaluation of symptomatic arctic valve stenosis on 23 August 2020 patient experienced an episode of dizziness and bradycardia and myocardial perfusion study demonstrated no provokable ischemia and a 2D echo showed a moderate aortic valve stenosis with a calculated aortic valve area 1.3 cmejection fraction of 63% Over the past several months the patient has been complaining of exercise intolerance as well as dyspnea with moderate activity he describes dyspnea walking no more than 1/4 mile or up a flight of steps with no rest symptoms no palpitation patient does not describe angina no syncope An updated echocardiogram showed evidence of moderate to severe arctic valve stenosis with a peak velocity of 3.7 m/s mean gradient 25 mmHg aortic valve area of 1.8cm due to the poor quality of the images a transesophageal echo was requested with results as follows: ECHOCARDIOGRAM TRANSESOPHAGEAL BMI: 36.21 kg/m2 Summary 1. Severe aortic valve stenosis. 2. The aortic valve is trileaflet with calcification and thickening present. The leaflets appear severely restricted. 3. Valve area by 3D planimetry 0.85 cm2. Aortic valve area by 2D planimetry is 0.8 cm2.. 4. Stroke-volume index 32.5 cc/m2. Dimensionless index is 0.21.. 5. Normal left ventricular systolic function ejection fraction approximately 60 to 65%. On 07/01/2021 patient underwent cardiac catheterization with results as follow: Impression: Normal left ventricular systolic function with an estimated LV ejection fraction of 65%. 2. Normal left ventricular end-diastolic pressure 3. Severe aortic valve stenosis with a calculated valve area 0.83 cm 4. Normal resting right heart pressures with no shunting by oximetry 5. Severe triple-vessel coronary disease Coronary Findings Diagnostic ominance: Right Left Main Mid LM lesion is 50% stenosed. IGOR flow is 3. The lesion is not complex (non high-C). Left Anterior Descending Ost LAD lesion is 80% stenosed. IGOR flow is 3. The lesion is type C, eccentric and serial. The lesion is moderately calcified. Dist LAD lesion is 60% stenosed. IGOR flow is 3. The lesion is not complex (non high-C). Left Circumflex Ost Cx lesion is 80% stenosed. IGOR flow is 3. The lesion is type C. The lesion is moderately calcified. Mid Cx lesion is 40% stenosed. IGOR flow is 3. The lesion is not complex (non high-C). The lesion was previously treated using a drug-eluting stent. Previous treatment took place >2 years ago. Thelesion has no restenosis. First Obtuse Marginal Branch 1st Mrg lesion is 70% stenosed. IGOR flow is 3. The lesion is not complex (non high-C). Small caliber vessel Right Coronary Artery The vessel is severely calcified. Ost RCA lesion is 70% stenosed. IGOR flow is 3. The lesion is type C and eccentric. The lesion is severely calcified. Angiographically hazy Prox RCA lesion is 70% stenosed. IGOR flow is 3. The lesion is type C. The lesion is moderately calcified. Prox RCA to Mid RCA lesion is 40% stenosed. IGOR flow is 3. The lesion is not complex (non high-C).The lesion was previously treated using a drug-eluting stent. Previous treatment took place >2 years ago. The lesion has no restenosis. Based on patient's symptoms and results of the above mentioned testing consideration for TAVR plus minus PCI versus aortic valve replacement and coronary artery bypass grafting is being entertained 's TAVR CT a yet pending Once work-up is completed Case will be reviewed and discussed the multidisciplinary meeting Assessment and Plan Met with patient [id number] at the time of my evaluation patient is neurologically intact and without acute distress no short of breath no signs of congestive failure chest pain oriented x3 able tounderstand explanation able to ask questions understand my answers is present at the time of my evaluation I have discussed with patient and the results of the testing available so far in the therapeutic options in reference to the severe arctic valve stenosis and coronary artery disease consistent with Open heart surgery involving aortic valve replacement and coronary artery bypass grafting At they have been made aware that the calculated risk score for open surgery in my opinion would bein the range of 6 to 8% even though the equation calculates at risk mortality of 4.5% which might estimation is highly underestimated and a morbidity mortality combined score of 22% The patient understand that open surgery will involve a hospitalization of at least 6 to 8 days as well as a recovery time of at least 3 months prior to him being able to resume his heavy work at [employer] TAVR plus minus PCI Patient understand that TAVR as well as PCI are very successful and very low risk of mortality ,1 in several 100 cases, they also understand that even though TAVR is successful and safe there is a very rare chance of complications that might require emergency surgery and should that become necessary the mortality could be higher than 50% and the combined morbidity mortality higher than 75% Both patient and at this point are quite reluctant to proceed with open surgery their choice would be a less invasive approach Patient will undergo TAVR CTA tomorrow and then case will be discussed at multidisciplinary meetingon Wednesday and based on all the results and patient's wishes final recommendation will be rendered Should the patient decide to undergo TAVR plus minus PCI surgical bailout will be granted with patient understanding of the involved high mortality risks and very high morbidity should emergency surgery be required Past Medical History: Diagnosis Date CHF (congestive heart failure) (HCC) COPD (chronic obstructive pulmonary disease) (HCC) Coronary artery disease Diabetes mellitus (HCC) Disease of thyroid gland Hyperlipidemia Hypertension Myocardial infarction (HCC) Stroke (HCC) Past Surgical History: Procedure Laterality Date CARDIAC CATHETERIZATION CARDIAC CATHETERIZATION Bilateral 07/01/2021 No intervention, right radial CARDIAC CATHETERIZATION N/A 07/01/2021 Procedure: Coronary Angiogram; Surgeon: Shmuel Villalpando MD; Location: [facility]; Service: Cardiovascular CARDIAC CATHETERIZATION N/A 07/01/2021 Procedure: Right Heart Cath; Surgeon: Shmuel Villalpando MD; Location: [facility]; Service: Cardiovascular CARDIAC CATHETERIZATION N/A 07/01/2021 Procedure: Left Ventriculogram; Surgeon: Shmuel Villalpando MD; Location: [facility]; Service: Cardiovascular CARDIAC CATHETERIZATION N/A 07/01/2021 Procedure: Left Heart Cath; Surgeon: Shmuel Villalpando MD; Location: [facility]; Service: Cardiovascular cataracts removed Bilateral CORONARY STENT PLACEMENT HERNIA REPAIR W/HYDROCELE Right Current Outpatient Medications on File Prior to Visit Medication Sig Dispense Refill amLODIPine (NORVASC) 5 MG tablet Take 5 mg by mouth daily . apixaban (ELIQUIS) 5 mg Tab Take 5 mg by mouth 2 (two) times a day . esomeprazole (NEXIUM) 40 MG capsule Take 40 mg by mouth every morning before breakfast . furosemide (LASIX) 20 MG tablet Take 20 mg by mouth daily . levothyroxine (SYNTHROID, LEVOTHROID) 175 MCG tablet Take 175 mcg by mouth daily . metFORMIN (GLUCOPHAGE) 500 MG tablet Take 1 (one) tablet (500 mg total) by mouth 2 (two) times a day with meals Hold until repeat chem 7 . 60 tablet 0 nitroGLYCERIN (NITROSTAT) 0.[address] 0.4 mg under the tongue every 5 (five) minutes as needed for chest pain , if no relief after 3 doses call 911 . potassium chloride (MICRO-K) 10 MEQ CR capsule Take 10 mEq by mouth daily . rosuvastatin (CRESTOR) 20 MG tablet Take 20 mg by mouth nightly . tamsulosin (FLOMAX) 0.4 mg capsule Take 0.4 mg by mouth daily . No current facility-administered medications on file prior to visit. No Known Allergies Family History Problem Relation Age of Onset Heart disease Father Social History Socioeconomic History Marital status: Occupational History Employer: OTHER- Occupation: Retired from [employer] Tobacco Use Smoking status: Never Smokeless tobacco: Never Vaping Use Vaping Use: Never used Substance and Sexual Activity Alcohol use: Not Currently Drug use: Never ROS See HPI for pertinent positive all other systems were reviewed and negative BP 134/77 (BP Location: Left arm) Pulse 69 Ht 6' Wt 116.6 kg (257 lb) Comment: Steel toe shoes SpO2 96% BMI 34.86 kg/m Physical Exam Constitutional: General: He is not in acute distress. Appearance: Normal appearance. He is obese. He is not ill-appearing, toxic- appearing or diaphoretic. HENT: Head: Normocephalic and atraumatic. Right Ear: External ear normal. Left Ear: External ear normal. Nose: Nose normal. No congestion or rhinorrhea. Mouth/Throat: Mouth: Mucous membranes are moist. Pharynx: Oropharynx is clear. No oropharyngeal exudate or posterior oropharyngeal erythema. Eyes: General: No scleral icterus. Right eye: No discharge. Left eye: No discharge. Conjunctiva/sclera: Conjunctivae normal. Pupils: Pupils are equal, round, and reactive to light. Neck: Vascular: Carotid bruit present. Cardiovascular: Rate and Rhythm: Normal rate. Rhythm irregular. Heart sounds: Murmur heard. No friction rub. No gallop. Pulmonary: Effort: Pulmonary effort is normal. No respiratory distress. Breath sounds: No stridor. No wheezing, rhonchi or rales. Chest: Chest wall: No tenderness. Abdominal: Palpations: Abdomen is soft. Tenderness: There is no abdominal tenderness. There is no right CVA tenderness, left CVA tenderness, guarding or rebound. Musculoskeletal: General: No swelling, tenderness, deformity or signs of injury. Normal range of motion. Cervical back: Normal range of motion and neck supple. No rigidity or tenderness. Right lower leg: No edema. Left lower leg: No edema. Lymphadenopathy: Cervical: No cervical adenopathy. Skin: General: Skin is warm. Coloration: Skin is not jaundiced or pale. Findings: No bruising, erythema, lesion or rash. Neurological: General: No focal deficit present. Mental Status: He is alert and oriented to person, place, and time. Cranial Nerves: No cranial nerve deficit. Sensory: No sensory deficit. Motor: No weakness. Coordination: Coordination normal. Gait: Gait normal. Deep Tendon Reflexes: Reflexes normal. Psychiatric: Mood and Affect: Mood normal. Behavior: Behavior normal. Thought Content: Thought content normal. Judgment: Judgment normal. WBC Date Value Ref Range Status 07/01/2021 7.76 4.50 - 11.00 K/mcL Final Hemoglobin Date Value Ref Range Status 07/01/2021 15.6 13.5 - 17.5 g/dL Final Hematocrit Date Value Ref Range Status 07/01/2021 48.8 41.0 - 53.0 % Final MCV Date Value Ref Range Status 07/01/2021 99.0 80.0 - 100.0 fL Final Platelets Date Value Ref Range Status 07/01/2021 185 150 - 400 K/mcL Final Glucose Date Value Ref Range Status 07/01/2021 172 (H) 65 - 99 mg/dL Final Calcium Date Value Ref Range Status 07/01/2021 8.6 8.4 - 10.2 mg/dL Final Sodium Date Value Ref Range Status 07/01/2021 139 135 - 145 mmol/L Final Potassium Date Value Ref Range Status 07/01/2021 4.4 3.5 - 5.1 mmol/L Final Chloride Date Value Ref Range Status 07/01/2021 108 98 - 108 mmol/L Final BUN Date Value Ref Range Status 07/03/2021 15 8 - 25 mg/dL Final Creatinine Date Value Ref Range Status 07/03/2021 1.09 0.80 - 1.30 mg/dL Final Albumin Date Value Ref Range Status 06/16/2021 4.0 3.2 - 5.2 g/dL Final ] Problem List Items Addressed This Visit None Visit Diagnoses Aortic valve stenosis, etiology of cardiac valve disease unspecified documented in this [id number] History of Present illness Narrative* Mireya Randall RN - 06/24/2021 4:26 PM EDT [facility] note-received dental clearance letter from Dr Luis Carlos DDS., will scan into pt's chart. documented in this [id number] History of Present illness Narrative* Mireya Randall RN - 06/23/2021 3:27 PM EDT [facility] Note-per Dr Villalpando, severe noted on VIANEY, start TAVR workup if patient willing to proceed. Spoke with pt's Anamaria via phone, aware of recommendations, she reports pt is agreeable to starting /TAVR workup. Will schedule pt for CT and right and left cath per Dr Villalpando. CT surgery team to r each out to pt to schedule eval appt. Will call pt and with testing details once scheduled. thankful for call. documented in this [id number] History of Present illness Narrative* Shmuel Villalpando MD - 06/16/2021 11:10 AM EDT CARDIOLOGY PROGRESS NOTE [facility] [address] [facility] [address] [facility] [id number] Physicians: Naveen Rasmussen MD (Family); No ref. provider found (Referring) Subjective: Kevin White is a 80 y.o. male seen in the office today for No chief complaint on file. . HPI: Patient was referred to structural heart clinic for evaluation of symptomatic aortic valve stenosis. He is accompanied by his on his office visit this morning. Very pleasant 80-year-old gentleman with a history of short-term memory loss and chronic persistentatrial fibrillation with a previous history of TIA. Patient is on oral anticoagulation with Eliquis. Patient has underlying sleep apnea noncompliant with CPAP therapy and has had previous remote catheter-based intervention to the right coronary artery and posterior circulations. Patient was last seen August 2020 in the setting of episodic dizziness and bradycardia. His metoprolol was discontinued. 30-day event recorder demonstrated persistent atrial fibrillation with episodes of nonsustained ventricular tachycardia. Myocardial perfusion study demonstrated no provokable ischemia and a normal hemodynamic response to exercise with average exercise tolerance for age. 2D echocardiogram at that time demonstrated an LV ejection fraction of 63%, biatrial enlargement, with moderate aortic valve stenosis with a calculated valve area 1.3 cm . Over the past several months patient has had more complaints of exercise intolerance and dyspnea with activity (ambulatory functional class II-III). [place] activities such as yard work, mowing with a push mower, and household projects that involve woodworking. He has described dyspnea walking quarter mile or up half a flight of steps. No rest symptoms. No palpitations. He is not describing anginal sounding chest discomfort. He continues to have episodic spells of dizziness that can last 1 to 2 minutes without syncope. No PND or orthopnea. No syncope. Updated 2D echocardiogram (in atrial fibrillation) demonstrated LV ejection fraction of 66%. Patient had moderate left atrial enlargement. Patient had moderate to severe aortic valve stenosis with a peak velocity 3.7 m/s, mean gradient 29, calculated aortic valve area 1.0 cm , and a dimensionless index of 0.21. Assessment/plan: Patient has persistent atrial fibrillation now with a concern for progressive aortic valve disease on 2D echocardiogram. Current exam does not suggest evidence for cardiac decompensation (diminished but preserved A2). Electrocardiogram atrial fibrillation with a heart rate of 72. I have recommended we proceed with transesophageal echocardiography to further characterize aortic valve disease. I did review with the patient and his in the setting of severe aortic valve stenosis the heart team approach using shared decision making regarding transcatheter versus surgical aortic valve replacement. All questions were answered. I did review with the patient consideration forleft and right heart catheterization, surgical consultation, and planning TAVR CT study. Additionalrecommendations may be forthcoming following his VIANEY. Assessment & Plan: No problem-specific Assessment & Plan notes found for this encounter. EKG Interpretation: atrial fibrillation, nonspecific ST and T waves changes Follow Up Ordered: No follow-ups on file. Patient's Medications New Prescriptions No medications on file Previous Medications AMLODIPINE (NORVASC) 5 MG TABLET Take 5 mg by mouth daily . APIXABAN (ELIQUIS) 5 MG TAB Take 5 mg by mouth 2 (two) times a day . ASPIRIN 325 MG TABLET Take 325 mg by mouth daily . ESOMEPRAZOLE (NEXIUM) 40 MG CAPSULE Take 40 mg by mouth every morning before breakfast . FUROSEMIDE (LASIX) 20 MG TABLET Take 20 mg by mouth daily . LEVOTHYROXINE (SYNTHROID, LEVOTHROID) 175 MCG TABLET Take 175 mcg by mouth daily . METFORMIN (GLUCOPHAGE) 500 MG TABLET Take 500 mg by mouth 2 (two) times a day with meals . NITROGLYCERIN (NITROSTAT) 0.[address] 0.4 mg under the tongue every 5 (five) minutes as needed for chest pain , if no relief after 3 doses call 911 . POTASSIUM CHLORIDE (MICRO-K) 10 MEQ CR CAPSULE Take 10 mEq by mouth daily . ROSUVASTATIN (CRESTOR) 20 MG TABLET Take 20 mg by mouth nightly . TAMSULOSIN (FLOMAX) 0.4 MG CAPSULE Take 0.4 mg by mouth daily . Modified Medications No medications on file Discontinued Medications No medications on file Histories: The past history, social and family history, and allergies were reviewed and updated as needed. ROS Objective: Physical Exam Constitutional: Appearance: Normal appearance. He is well-developed. HENT: Head: Normocephalic and atraumatic. Right Ear: External ear normal. Left Ear: External ear normal. Nose: Nose normal. Eyes: Pupils: Pupils are equal, round, and reactive to light. Neck: Thyroid: No thyroid mass. Vascular: No carotid bruit, hepatojugular reflux or JVD. Cardiovascular: Rate and Rhythm: Normal rate and regular rhythm. Pulses: Intact distal pulses. Heart sounds: Normal heart sounds. Comments: Variable S1 and physiologic S2. Soft left ventricular outflow tract murmur. A2 diminishedbut appears preserved. No diastolic murmur. Apical impulse not palpable. Jugular venous pressures does not appear elevated. Pulmonary: Effort: Pulmonary effort is normal. Breath sounds: Normal breath sounds. Comments: No rales or wheezes Abdominal: General: Bowel sounds are normal. Palpations: Abdomen is soft. Tenderness: There is no abdominal tenderness. Musculoskeletal: General: Normal range of motion. Cervical back: Normal range of motion and neck supple. No edema. No muscular tenderness. Comments: No edema Skin: General: Skin is warm and dry. Nails: There is no clubbing. Neurological: Mental Status: He is alert and oriented to person, place, and time. Cranial Nerves: No cranial nerve deficit. Deep Tendon Reflexes: Reflexes are normal and symmetric. Psychiatric: Speech: Speech normal. Behavior: Behavior normal. I personally reviewed and verified the review of systems obtained by the certified medical transcriptionist. Vitals: Vitals: 06/16/21 1049 06/16/21 1050 BP: (!) 149/88 (!) 155/91 BP Location: Left arm Right arm Patient Position: Sitting Sitting BP Cuff Size: Adult Adult Pulse: 63 62 SpO2: 97% Weight: 121.1 kg (267 lb) 1. Aortic valve disease Shmuel Villalpando MD documented in this [id number] Instructions* Patient Instructions* Mireya Randall RN - 06/16/2021 10:38 AM EDT ..How to contact your Care Team: Provider: Shmuel Villalpando MD Nurse: Cadence Randall RN In case of an emergency please call [phone]. REFILLS: When in need for refills please call your care team or the office at [phone]. Please include medication name, pharmacy name, and specify 30-day or 90-day supply. Please check with your pharmacy within 24 hours of request for your refill. You must follow up as directed to continue current refills. Thank you Transesophageal Echocardiogram (VIANEY) Appointment Date and arrival time: 06/19 @ 9 AM Be sure to tell the physician or nurse prior to the procedure if you have a problem swallowing or if you have any conditions involving your esophagus or stomach. This includes recent bleeding ulcers,vomiting blood, recent upper Endoscopies, black or tarry bowel movements, esophageal webs or diverticulum. Please remember to get your lab work drawn at least 48 hours prior to procedure. DO NOT eat or drink anything after Midnight prior to your procedure. You may take your morning medications, but use as little water as possible. If you take diabetic medications or insulin please discuss with nurse. Before the procedure, you will be given an explanation of the procedure, potential benefits, and possible risks. Please ask questions or share concerns you may have. Please remove dentures or oral prostheses prior to procedure, as they may interfere with the procedure. You will be given a sedative through your IV before the procedure begins. The physician will also treat your throat with a numbing agent prior to inserting the transducer. You must be accompanied by someone who is able to drive you home after the procedure. The physician will discuss the results following your procedure. Questions/Cancellations: [phone] or contact your care team. Covid Testing Prior to your procedure or test you will need to have a test to rule out Covid 19. This is an oral swab that is done at a drive-up testing site in [place]. You are to have this test completed no earlier than 96 hours but no less than 72 hours before your cardiac procedure or test. The testing site is at [address] [place] [address] in [place]. It is off of [facility] between [address] and [facility]. The hours of testing are Wednesday to Wednesday 7:30-4:00 (No weekend testing offered at this time). The order will be entered in our system so you do not need an order to take with you. Please take ID and insurance card. If your test result comes back positive we will notify you. Otherwise please come to your test on the scheduled date and time. Covid Test to be done on 5/3 . documented in this [id number] History of Present illness Narrative* Mireya Randall RN - 06/12/2021 2:03 PM EDT [facility] note-received referral from Dr Rasmussen to andrea pt in [facility] re: aortic stenosis. Pt's last echo noted on 06/02/21. Called and spoke with pt's Anamaria, scheduled pt appt with Dr Villalpando on 06/16 @ 11 AM. documented in this [id number] Instructions* Patient Instructions* Rosy Pryor RN - 01/06/2021 3:58 PM EST Images from the original note were not included. Instructed if any questions, concerns, or worsening symptoms within the next 7 days, please call primary care provider. Expect a call back from this unit in 24-48 hrs to check to see how you are doing. For immediate emergencies, please go to the nearest Emergency Room or call 911. documented in this [id number] History of Present illness Narrative* Rosy Pryor RN - 01/06/2021 3:48 PM EST Tolerates infusion well, no signs of reaction, resting quietly in recliner. Instructed if any questions, concerns, or worsening symptoms within the next 7 days, please call primary care provider. Forimmediate emergencies, please go to the nearest Emergency Room or call 911. * Rosy Pryor RN - 01/06/2021 2:00 PM EST Special isolation precautions are in place with signage outside this patient's room. This critical care technician performs hand hygiene and enters the patient room wearing: gloves an appropriately fitting (N-95, PAPR, Aura) mask face shield protective gown to provide care. See documentation for the care provided. Patient is admitted to the [facility] for infusion of monoclonal antibody. Patient placed in room 2501.Specialized isolation procedures in place. Patient is alert and oriented. Will obtain VS, place IV,and release Therapy Plan. Medication Fact Sheet given to patient prior to infusion. documented in this [id number] History of Present illness Narrative* Shmuel Villalpando MD - 08/30/2020 2:27 PM EDT OFFICE CONSULTATION NOTE [facility] [address]) [facility] [address] [facility] [id number] Physicians: Naveen Rasmussen MD (Family); Naveen Rasmussen MD (Referring) Subjective: Kevin White is a 79 y.o. male seen in the office today for Follow-up (re- establish care-CAD/dizziness) . HPI: 79-year-old gentleman who presents for reestablishment of cardiovascular care. Patient has a history of previous remote catheter-based intervention to the right coronary artery and posterior circulations. Underlying obstructive sleep apnea noncompliant with CPAP therapy. History of chronic persistent atrial fibrillation and previous TIA. Patient reports over the past month episodes of dizziness and lightheadedness. Patient states he had one episode while driving when he felt faint. No syncope. Patient describes a couple smaller dizzy spells that last for 1 to 2 minutes. No clear preceding precipitating factors. Patient has at times associated his dizziness with episodic chest symptoms. Patient is not describing chest discomfortin the course of daily activities. With more vigorous type activities notices mild symptoms of dyspnea. Patient describes himself as active performing yard work and household projects. No PND or orthopnea. Patient states he has been compliant with his medical regiment. Patient underwent carotid duplex ultrasound prior to his office visit today and preliminary results indicate mild bilateral carotid stenosis. Assessment & Plan: CAD (coronary artery disease) 79-year-old gentleman who has had remote previous catheter-based intervention to the right coronaryartery and posterior circulations. Patient has complaints of near syncope at times associated with chest symptoms. Current exam does not suggest evidence for cardiac decompensation. Electrocardiogramatrial fibrillation with a heart rate of [address]-T wave changes. I recommend we discontinue his metoprolol at the present time. I have recommended cardiac event recorder. I have also recommended we obtain 2D echocardiogram and myocardial perfusion study. Additional recommendations will be forthcoming as his noninvasive cardiovascular valuation evolves. I have adv ised him no further driving at the present time. Hypertension Appears well-controlled on his current medical regiment. Hyperlipidemia Patient should continue with plaque stabilization therapy. Atrial fibrillation ([facility]) Longstanding chronic persistent atrial fibrillation on a strategy of rate control and oral anticoagulation with Eliquis. Presents with frequent dizzy spells and near syncope. We have discontinued hismetoprolol. Cardiac event recorder requested. Diabetes ([facility]) Recommend targeted hemoglobin A1c of 7.0. NAJMA (obstructive sleep apnea) Noncompliant with CPAP therapy. EKG Interpretation: nonspecific ST and T waves changes, atrial fibrillation, rate 57. Follow Up Ordered: Return in about 6 weeks (around 10/11/2020). Patient's Medications New Prescriptions No medications on file Previous Medications AMLODIPINE (NORVASC) 10 MG TABLET Take 10 mg by mouth daily . APIXABAN (ELIQUIS) 5 MG TAB Take 5 mg by mouth 2 (two) times a day . ASPIRIN 81 MG EC TABLET Take 81 mg by mouth daily . ESOMEPRAZOLE (NEXIUM) 40 MG CAPSULE Take 40 mg by mouth every morning before breakfast . LEVOTHYROXINE (SYNTHROID, LEVOTHROID) 175 MCG TABLET Take 175 mcg by mouth daily . METFORMIN (GLUCOPHAGE) 1000 MG TABLET Take 1,000 mg by mouth 2 (two) times a day with meals . ROSUVASTATIN (CRESTOR) 20 MG TABLET Take 20 mg by mouth nightly . TAMSULOSIN (FLOMAX) 0.4 MG CAPSULE Take 0.4 mg by mouth daily . Modified Medications No medications on file Discontinued Medications METOPROLOL SUCCINATE (TOPROL-XL) 25 MG 24 HR TABLET Take 25 mg by mouth daily . Histories: Past Medical History: Diagnosis Date COPD (chronic obstructive pulmonary disease) ([facility]) Hypertension Myocardial infarction ([facility]) Stroke ([facility]) Past Surgical History: Procedure Laterality Date HERNIA REPAIR W/HYDROCELE Right No family history on file. Social History Tobacco Use Smoking status: Never Smoker Smokeless tobacco: Never Used Vaping Use Vaping Use: Never used Substance Use Topics Alcohol use: Not Currently Drug use: Never Outpatient Medications as of 08/30/2020 Medication Sig amLODIPine (NORVASC) 10 MG tablet Take 10 mg by mouth daily . apixaban (ELIQUIS) 5 mg Tab Take 5 mg by mouth 2 (two) times a day . esomeprazole (NEXIUM) 40 MG capsule Take 40 mg by mouth every morning before breakfast . levothyroxine (SYNTHROID, LEVOTHROID) 175 MCG tablet Take 175 mcg by mouth daily . metFORMIN (GLUCOPHAGE) 1000 MG tablet Take 1,000 mg by mouth 2 (two) times a day with meals . rosuvastatin (CRESTOR) 20 MG tablet Take 20 mg by mouth nightly . No Known Allergies ROS Overview of Problems Addressed: Problem Hypertension Hyperlipidemia Cad (Coronary Artery Disease) Diabetes (Hcc) Atrial Fibrillation (Hcc) Najma (Obstructive Sleep Apnea) Objective: Physical Exam Constitutional: Appearance: Normal appearance. He is well-developed. HENT: Head: Normocephalic and atraumatic. Right Ear: External ear normal. Left Ear: External ear normal. Nose: Nose normal. Eyes: Pupils: Pupils are equal, round, and reactive to light. Neck: Thyroid: No thyroid mass. Vascular: No carotid bruit, hepatojugular reflux or JVD. Cardiovascular: Rate and Rhythm: Normal rate and regular rhythm. Pulses: Intact distal pulses. Heart sounds: Normal heart sounds. Comments: Physiologic S1 and S2. Soft S4 gallop. Soft left ventricular outflow tract murmur. No diastolic murmur. Apical impulse not palpable. Jugular venous pressures not appear elevated. Pulmonary: Effort: Pulmonary effort is normal. Breath sounds: Normal breath sounds. Comments: No rales or wheezes Abdominal: General: Bowel sounds are normal. Palpations: Abdomen is soft. Tenderness: There is no abdominal tenderness. Musculoskeletal: General: Normal range of motion. Cervical back: Normal range of motion and neck supple. No edema. No muscular tenderness. Comments: No edema Skin: General: Skin is warm and dry. Nails: There is no clubbing. Neurological: Mental Status: He is alert and oriented to person, place, and time. Cranial Nerves: No cranial nerve deficit. Deep Tendon Reflexes: Reflexes are normal and symmetric. Psychiatric: Speech: Speech normal. Behavior: Behavior normal. Vitals: Vitals: 08/30/20 1327 08/30/20 1427 BP: 146/85 140/78 BP Location: Left arm Left arm Patient Position: Sitting Pulse: (!) 56 SpO2: 94% Weight: 121.1 kg (267 lb) 1. SOB (shortness of breath) on exertion 2. Coronary artery disease, unspecified vessel or lesion type, unspecified whether angina present, unspecified whether [place] or transplanted heart 3. Dizziness 4. Essential hypertension 5. Hyperlipidemia, unspecified hyperlipidemia type 6. Coronary artery disease involving [place] coronary artery of [place] heart, unspecified whether angina present 7. 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 Longstanding persistent atrial fibrillation (HCC) 9. NAJMA (obstructive sleep apnea) 10. Near syncope Shmuel Villalpando MD documented in this [id number] Miscellaneous Notes* Assessment & Plan Note - Shmuel Villalpando MD - 08/30/2020 2:27 PM EDT Associated Problem(s): NAJMA (obstructive sleep apnea) Noncompliant with CPAP therapy. * Assessment & Plan Note - Shmuel Villalpando MD - 08/30/2020 2:27 PM EDT Associated Problem(s): Diabetes (HCC) Recommend targeted hemoglobin A1c of 7.0. * Assessment & Plan Note - Shmuel Villalpando MD - 08/30/2020 2:26 PM EDT Associated Problem(s): Atrial fibrillation (HCC) Longstanding chronic persistent atrial fibrillation on a strategy of rate control and oral anticoagulation with Eliquis. Presents with frequent dizzy spells and near syncope. We have discontinued hismetoprolol. Cardiac event recorder requested. * Assessment & Plan Note - Shmuel Villalpando MD - 08/30/2020 2:26 PM EDT Associated Problem(s): Hyperlipidemia Patient should continue with plaque stabilization therapy. * Assessment & Plan Erin - Shmuel Villalpando MD - 08/30/2020 2:26 PM EDT Associated Problem(s): Hypertension Appears well-controlled on his current medical regiment. * Assessment & Plan Note - Shmuel Villalpando MD - 08/30/2020 2:24 PM EDT Associated Problem(s): CAD (coronary artery disease) 79-year-old gentleman who has had remote previous catheter-based intervention to the right coronaryartery and posterior circulations. Patient has complaints of near syncope at times associated with chest symptoms. Current exam does not suggest evidence for cardiac decompensation. Electrocardiogramatrial fibrillation with a heart rate of [address]-T wave changes. I recommend we discontinue his metoprolol at the present time. I have recommended cardiac event recorder. I have also recommended we obtain 2D echocardiogram and myocardial perfusion study. Additional recommendations will be forthcoming as his noninvasive cardiovascular valuation evolves. I have adv ised him no further driving at the present time. documented in this [id number] Instructions* Patient Instructions* Maureen Weinstein RN - 08/30/2020 1:32 PM EDT .How to contact your Care Team: Provider: Shmuel Villalpando MD Nurse: Juliana Bethea RN NUCLEAR MEDICINE CARDIAC STRESS TEST THIS IS A 3-4 HOUR TEST Instructions: Appointment Time: , ____/____/____ at ____:____ Prep: DO NOT Take your morning medications. Please bring your morning medications with you. NO CAFFEINE FOR 24 HOURS prior to your test. This includes drinks labeled decaffeinated. Nothing to eat 4 hours prior to your test. A small snack will be provided (crackers, granola bar, juice), or you may bring your own snack for after your stress test. You may drink fluids leading up to your test as long as they are caffeine-free. Decaffeinated drinks still contain some caffeine, please do not drink anything containing caffeine for 24 hours. NO SMOKING the day of your test. Wear comfortable shoes and clothing for exercising. Please wear short sleeves. No metal buttons or snaps. Procedure: Check-in/Registration. Please bring photo ID, insurance cards, and any physician orders. Test explained in detail and IV started. Stress test performed, nuclear medicine will be injected through your IV during the stress test. Stress test recovery period. Heart scan performed. The doctor will review the pictures of your heart and decide if more pictures are needed before youleave. If more are needed you will get another injection of nuclear medicine and this will take an additional hour. The total time for this test is 3-4 hours. There are medications that interfere with this test. You may be instructed to hold medications. If so that will be listed here: If you have any further questions please contact your care team or [phone]. documented in this [id number] History of Past illness Narrative* Problem Noted Date Resolved Date Other vitreous opacities 02/21/2014 017 Combined form of age-related cataract, right eye 02/21/2014 05/06/2020 documented as of this encounter (statuses as of 08/27/2021) [facility]01-07[facility]2015 History of Past illness Narrative* Problem Noted Date Resolved Date Other vitreous opacities 02/21/2014 017 Combined form of age-related cataract, right eye 02/21/2014 05/06/2020 documented as of this encounter (statuses as of 05/07/2022) 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) Longstanding persistent atrial fibrillation (HCC) NAJMA (obstructive sleep apnea) Obstructive sleep apnea (adult) (pediatric) Near syncope [facility] Near syncope [facility] Diagnosis Atherosclerosis of [place] coronary artery of [place] heart, unspecified whether angina present Dizziness Dizziness and giddiness [facility]* Diagnosis COVID-19- Primary [facility] Diagnosis COVID-19 [facility] Diagnosis Aortic valve disease- Primary Aortic valve disorders [facility] Diagnosis Aortic valve disease- Primary Aortic valve disorders [facility] Diagnosis Aortic valve disease- Primary Aortic valve disorders Aortic valve stenosis, etiology of cardiac valve disease unspecified [facility] Diagnosis Aortic valve stenosis, etiology of cardiac valve disease unspecified- Primary [facility]* Diagnosis Drug therapy- Primary Encounter for other specified aftercare [facility]* Diagnosis Aortic valve stenosis, etiology of cardiac valve disease unspecified [facility] Diagnosis Aortic valve stenosis, etiology of cardiac valve disease unspecified- Primary Coronary artery disease involving [place] coronary artery of [place] heart, unspecified whether angina present [facility] Diagnosis Coronary artery disease involving [place] coronary artery of [place] heart, unspecified whether angina present- Primary Aortic valve stenosis, etiology of cardiac valve disease unspecified Longstanding persistent atrial fibrillation (HCC) Primary hypertension Unspecified essential hypertension [facility] Diagnosis Coronary artery disease involving [place] coronary artery of [place] heart, unspecified whether angina present- Primary Atrial fibrillation, unspecified type (HCC) Nonrheumatic aortic valve stenosis Nonrheumatic aortic valve stenosis CAD (coronary artery disease) Coronary atherosclerosis of unspecified type of vessel, [place] or graft Atrial fibrillation (HCC) Atrial fibrillation Coronary artery disease involving [place] coronary artery of [place] heart, unspecified whether angina present Atrial fibrillation, unspecified type (HCC) Nonrheumatic aortic valve stenosis documented in this encounter [facility] note* Diagnosis Coronary artery disease involving [place] coronary artery of [place] heart, unspecified whether angina present- Primary 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 Heart valve replaced by other means [facility] Diagnosis Aortic stenosis, severe- Primary Coronary artery disease involving [place] coronary artery of [place] heart, unspecified whether angina present Type 2 diabetes mellitus without complication, without long-term current use of insulin (HCC) documented in this encounter [facility] note* Diagnosis Paroxysmal atrial fibrillation (HCC)- Primary Atrial fibrillation S/P AVR Coronary artery disease involving [place] coronary artery of [place] heart, unspecified whether angina present Aortic stenosis, severe documented in this encounter [facility] note* Diagnosis Paroxysmal atrial fibrillation (HCC)- Primary Atrial fibrillation documented in this encounter [facility] note* Diagnosis PAF (paroxysmal atrial fibrillation) (HCC)- Primary Atrial fibrillation documented in this encounter [facility] note* Diagnosis Paroxysmal atrial fibrillation (HCC) Atrial fibrillation PAF (paroxysmal atrial fibrillation) (HCC) Atrial fibrillation documented in this encounter [facility] note* Diagnosis A-fib (HCC)- Primary Atrial fibrillation Atrial fibrillation, unspecified type (HCC) documented in this encounter [facility] note* Diagnosis Paroxysmal atrial fibrillation (HCC)- Primary Atrial fibrillation Primary hypertension Unspecified essential hypertension Hyperlipidemia, unspecified hyperlipidemia type Coronary artery disease involving [place] coronary artery of [place] heart, unspecified whether angina present Nonrheumatic aortic valve stenosis Aortic stenosis, severe Type 2 diabetes mellitus without complication, without long-term current use of insulin (HCC) NAJMA (obstructive sleep apnea) Obstructive sleep apnea (adult) (pediatric) Visit for monitoring Tikosyn therapy documented in this encounter [facility] note* Diagnosis Type 2 diabetes mellitus without retinopathy (HCC)- Primary Type II or unspecified type diabetes mellitus without mention of complication, not stated as uncontrolled Vitreous floaters of both eyes Pseudophakia of both eyes Lens replaced by other means documented in this encounter [facility] note* Diagnosis PAF (paroxysmal atrial fibrillation) (HCC) Atrial fibrillation documented in this encounter [facility] note* 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- Primary Paroxysmal atrial fibrillation (HCC) Atrial fibrillation [facility] [facility] note* Diagnosis Paroxysmal atrial fibrillation (HCC) Atrial 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- [facility] Diagnosis Ischemic stroke (HCC)- Primary Acute ischemic stroke (HCC) Unspecified cerebral artery occlusion with cerebral infarction Elevated blood pressure reading Elevated blood pressure reading without diagnosis of hypertension Ischemic stroke (HCC) Aortic stenosis, severe Nonrheumatic aortic valve stenosis COVID-19 NAJMA (obstructive sleep apnea) Obstructive sleep apnea (adult) (pediatric) Type 2 diabetes mellitus without complication, without long-term current use of insulin (HCC) [facility]* Diagnosis Acute cerebrovascular accident (CVA) (HCC)- Primary Acute cerebrovascular accident (CVA) (HCC) [facility] Diagnosis Acute cerebrovascular accident (CVA) (HCC)- Primary 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 Memory deficit Memory loss Oropharyngeal dysphagia Dysphagia, oropharyngeal phase [facility]* Diagnosis Lack of coordination due to acute cerebrovascular accident (CVA) (HCC)- Primary Acute cerebrovascular accident (CVA) (HCC) Unsteadiness on feet Alteration in performance of activities of daily living [facility] Diagnosis Ischemic stroke (HCC)- Primary Acute cerebrovascular accident (CVA) (HCC) Unsteadiness on feet [facility]* Diagnosis Lack of coordination due to acute cerebrovascular accident (CVA) (HCC)- Primary Acute cerebrovascular accident (CVA) (HCC) Unsteadiness on feet Alteration in performance of activities of daily living [facility] Diagnosis Ischemic stroke (HCC)- Primary Lack of coordination due to acute cerebrovascular accident (CVA) (HCC) Unsteadiness on feet [facility] Diagnosis Lack of coordination due to acute cerebrovascular accident (CVA) (HCC)- Primary Unsteadiness on feet Alteration in performance of activities of daily living [facility] Diagnosis Lack of coordination due to acute cerebrovascular accident (CVA) (HCC)- Primary Unsteadiness on feet Alteration in performance of activities of daily living [facility]* Diagnosis Acute cerebrovascular accident (CVA) (HCC)- Primary 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 Memory deficit Memory loss Oropharyngeal dysphagia Dysphagia, oropharyngeal phase [facility] Diagnosis Ischemic stroke (HCC)- Primary Lack of coordination due to acute cerebrovascular accident (CVA) (HCC) Unsteadiness on feet [facility]* Diagnosis Onset Date Resolution Status Acquired hypothyroidism acut e Alzheimer disease acute BPH (benign prostatic hyperplasia) acute CAD (coronary artery disease) acute Essential hypertension acute Medication refill acute Mixed hyperlipidemia acute Obstructive sleep apnea acut e Type 2 diabetes mellitus acu te Chronic atrial fibrillation chronic [facility] Work Phone: Evaluation note* Diagnosis group home current use of antiarrhythmic drug [facility] Diagnosis Onset Date Resolution Status Acquired hypothyroidism acut e Alzheimer disease acute BPH (benign prostatic hyperplasia) acute CAD (coronary artery disease) acute Essential hypertension acute Mixed hyperlipidemia acute Obstructive sleep apnea acut e Type 2 diabetes mellitus acu te Chronic atrial fibrillation chronic Medication refill resolved Acquired hypothyroidism acut e BPH (benign prostatic hyperplasia) acute CAD (coronary artery disease) acute Essential hypertension acute History of CVA (cerebrovascular accident) acute Obstructive sleep apnea acut e Type 2 diabetes mellitus acu te Chronic atrial fibrillation chronic Acute exacerbation of chronic low back pain noneactive Establishing care with new doctor, encounter for noneactive Low platelet count noneactiv e Anxiety and depression nonea ctive [facility] Work Phone: Evaluation note* Diagnosis Onset Date Resolution Status Acquired hypothyroidism acut e Alzheimer disease acute BPH (benign prostatic hyperplasia) acute CAD (coronary artery disease) acute Essential hypertension acute Mixed hyperlipidemia acute Obstructive sleep apnea acut e Type 2 diabetes mellitus acu te Chronic atrial fibrillation chronic Medication refill resolved Acquired hypothyroidism acut e BPH (benign prostatic hyperplasia) acute CAD (coronary artery disease) acute Essential hypertension acute History of CVA (cerebrovascular accident) acute Obstructive sleep apnea acut e Type 2 diabetes mellitus acu te Chronic atrial fibrillation chronic Acute exacerbation of chronic low back pain noneactive Establishing care with new doctor, encounter for noneactive Low platelet count noneactiv e Anxiety and depression nonea ctive Acquired hypothyroidism acut e BPH (benign prostatic hyperplasia) acute CAD (coronary artery disease) acute Essential hypertension acute History of CVA (cerebrovascular accident) acute Obstructive sleep apnea acut e Type 2 diabetes mellitus acu te Chronic atrial fibrillation chronic Chronic low back pain noneac tive Low platelet count noneactiv e Anxiety and depression nonea ctive [facility] Work Phone: Evaluation note* Diagnosis Type 2 diabetes mellitus without retinopathy (HCC)- Primary Type II or unspecified type diabetes mellitus without mention of complication, not stated as uncontrolled Pseudophakia, both eyes Lens replaced by other means Corneal scarring Corneal opacity, unspecified Vitreous floaters of both eyes 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 Diagnosis Paroxysmal atrial fibrillation (HCC)- Primary Atrial fibrillation 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 [facility] Diagnosis Ischemic stroke (HCC)- Primary [facility] Diagnosis Ischemic stroke (HCC)- Primary Paroxysmal atrial fibrillation (HCC) Atrial fibrillation [facility] Diagnosis Atrial fibrillation, unspecified type (HCC)- Primary 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 [facility] Diagnosis SOB (shortness of breath) on exertion- Primary Shortness of breath Coronary artery disease, unspecified vessel or lesion type, unspecified whether angina present, unspecified whether [place] or transplanted heart Dizziness Dizziness and giddiness Essential hypertension Unspecified essential hypertension Hyperlipidemia, unspecified hyperlipidemia type Coronary artery disease involving [place] coronary artery of [place] heart, unspecified whether angina present Type 2 diabetes mellitus with other specified complication, 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) Longstanding persistent atrial fibrillation (HCC) NAJMA (obstructive sleep apnea) Obstructive sleep apnea (adult) (pediatric) Near syncope Aortic stenosis, severe- Primary Nonrheumatic aortic valve stenosis Coronary artery disease involving [place] coronary artery of [place] heart, unspecified whether angina present Atrial fibrillation, unspecified type (HCC) Aortic stenosis, severe Primary hypertension Unspecified essential hypertension Aftercare following surgery of the circulatory system Aftercare following surgery of the circulatory system, NEC Longstanding persistent atrial fibrillation (HCC) Type 2 diabetes mellitus without complication, without long-term current use of insulin (HCC) COVID-19 NAJMA (obstructive sleep apnea) Obstructive sleep apnea (adult) (pediatric) 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 CAD (coronary artery disease) Coronary atherosclerosis of unspecified type of vessel, [place] or graft Atrial fibrillation (HCC) Atrial fibrillation Nonrheumatic aortic valve stenosis Type 2 diabetes mellitus without complication, without long-term current use of insulin (HCC) Ischemic stroke (HCC)- Primary Paroxysmal atrial fibrillation (HCC) Atrial fibrillation Ischemic stroke (HCC)- Primary Leg swelling- Primary Swelling of limb Aortic valve stenosis, severe Aortic valve disorders [facility]* Diagnosis SOB (shortness of breath) on exertion- Primary Shortness of breath Coronary artery disease, unspecified vessel or lesion type, unspecified whether angina present, unspecified whether [place] or transplanted heart Dizziness Dizziness and giddiness Essential hypertension Unspecified essential hypertension Hyperlipidemia, unspecified hyperlipidemia type Coronary artery disease involving [place] coronary artery of [place] heart, unspecified whether angina present Type 2 diabetes mellitus with other specified complication, unspecified whether shelter insulin use (HCC) Longstanding persistent atrial fibrillation (HCC) NAJMA (obstructive sleep apnea) Obstructive sleep apnea (adult) (pediatric) Near syncope Aortic stenosis, severe- Primary Nonrheumatic aortic valve stenosis Coronary artery disease involving [place] coronary artery of [place] heart, unspecified whether angina present Atrial fibrillation, unspecified type (HCC) Aortic stenosis, severe Primary hypertension Unspecified essential hypertension Aftercare following surgery of the circulatory system Aftercare following surgery of the circulatory system, NEC Longstanding persistent atrial fibrillation (HCC) Type 2 diabetes mellitus without complication, without long-term current use of insulin (HCC) COVID-19 NAJMA (obstructive sleep apnea) Obstructive sleep apnea (adult) (pediatric) 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 CAD (coronary artery disease) Coronary atherosclerosis of unspecified type of vessel, [place] or graft Atrial fibrillation (HCC) Atrial fibrillation Nonrheumatic aortic valve stenosis Type 2 diabetes mellitus without complication, without long-term current use of insulin (HCC) Ischemic stroke (HCC)- Primary Paroxysmal atrial fibrillation (HCC) Atrial fibrillation Ischemic stroke (HCC)- Primary Atrial fibrillation, unspecified type (HCC)- Primary 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 [facility]* Diagnosis SOB (shortness of breath) on exertion- Primary Shortness of breath Coronary artery disease, unspecified vessel or lesion type, unspecified whether angina present, unspecified whether [place] or transplanted heart Dizziness Dizziness and giddiness Essential hypertension Unspecified essential hypertension Hyperlipidemia, unspecified hyperlipidemia type Coronary artery disease involving [place] coronary artery of [place] heart, unspecified whether angina present Type 2 diabetes mellitus with other specified complication, 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) Longstanding persistent atrial fibrillation (HCC) NAJMA (obstructive sleep apnea) Obstructive sleep apnea (adult) (pediatric) Near syncope Aortic stenosis, severe- Primary Nonrheumatic aortic valve stenosis Coronary artery disease involving [place] coronary artery of [place] heart, unspecified whether angina present Atrial fibrillation, unspecified type (HCC) Aortic stenosis, severe Primary hypertension Unspecified essential hypertension Aftercare following surgery of the circulatory system Aftercare following surgery of the circulatory system, NEC Longstanding persistent atrial fibrillation (HCC) Type 2 diabetes mellitus without complication, without long-term current use of insulin (HCC) COVID-19 NAJMA (obstructive sleep apnea) Obstructive sleep apnea (adult) (pediatric) 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 CAD (coronary artery disease) Coronary atherosclerosis of unspecified type of vessel, [place] or graft Atrial fibrillation (HCC) Atrial fibrillation Nonrheumatic aortic valve stenosis Type 2 diabetes mellitus without complication, without long-term current use of insulin (HCC) Ischemic stroke (HCC)- Primary Paroxysmal atrial fibrillation (HCC) Atrial fibrillation Ischemic stroke (HCC)- Primary History of CVA (cerebrovascular accident)- Primary Transient ischemic attack (TIA), and cerebral infarction without residual deficits group home current use of antiarrhythmic drug [facility] Diagnosis Type 2 diabetes mellitus without retinopathy (HCC)- Primary Type II or unspecified type diabetes mellitus without mention of complication, not stated as uncontrolled Vitreous floaters of both eyes Corneal scarring Corneal opacity, unspecified Pseudophakia, both eyes Lens replaced by other means Hyperopia of both eyes Regular astigmatism of both eyes Regular astigmatism Presbyopia [facility] Diagnosis SOB (shortness of breath) on exertion- Primary Shortness of breath Coronary artery disease, unspecified vessel or lesion type, unspecified whether angina present, unspecified whether [place] or transplanted heart Dizziness Dizziness and giddiness Essential hypertension Unspecified essential hypertension Hyperlipidemia, unspecified hyperlipidemia type Coronary artery disease involving [place] coronary artery of [place] heart, unspecified whether angina present Type 2 diabetes mellitus with other specified complication, unspecified whether shelter insulin use (HCC) Longstanding persistent atrial fibrillation (HCC) NAJMA (obstructive sleep apnea) Obstructive sleep apnea (adult) (pediatric) Near syncope Aortic stenosis, severe- Primary Nonrheumatic aortic valve stenosis Coronary artery disease involving [place] coronary artery of [place] heart, unspecified whether angina present Atrial fibrillation, unspecified type (HCC) Aortic stenosis, severe Primary hypertension Unspecified essential hypertension Aftercare following surgery of the circulatory system Aftercare following surgery of the circulatory system, NEC Longstanding persistent atrial fibrillation (HCC) Type 2 diabetes mellitus without complication, without long-term current use of insulin (HCC) COVID-19 NAJMA (obstructive sleep apnea) Obstructive sleep apnea (adult) (pediatric) 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 CAD (coronary artery disease) Coronary atherosclerosis of unspecified type of vessel, [place] or graft Atrial fibrillation (HCC) Atrial fibrillation Nonrheumatic aortic valve stenosis Type 2 diabetes mellitus without complication, without long-term current use of insulin (HCC) Ischemic stroke (HCC)- Primary Paroxysmal atrial fibrillation (HCC) Atrial fibrillation Ischemic stroke (HCC)- Primary S/P AVR (aortic valve replacement)- Primary Heart valve replaced by other means PAF (paroxysmal atrial fibrillation) ([facility]) Atrial fibrillation History of CVA (cerebrovascular accident) Transient ischemic attack (TIA), and cerebral infarction without residual deficits Type 2 diabetes mellitus without complication, without long-term current use of insulin (HCC) Coronary artery disease involving [place] coronary artery of [place] heart, unspecified whether angina present documented [facility] this encounter [facility] (narrative)No reason for referral information availableWOhio[facility] Work Phone: Reason for visit Narrative* Auth/Cert Specialty Diagnoses / Procedures Referred By Contac t Referred To Contact Diagnoses A-fib ([facility]) [place] Referral ID Status Reason Start Date Expiration Date Visits Re quested Visits Authorized [id number] 1 1 [facility] Summary Purpose Family History No Family History Records Found Relationship Condition Age at Onset Recorded Date/T sincere father Myocardial infarction Unknown Diabetes mellitus Unknown mother Hypertension Unknown Myocardial infarction Unknown Relationship Condition Age at Onset Recorded Date/T sincere father Myocardial infarction Unknown Diabetes mellitus Unknown mother Hypertension Unknown Myocardial infarction Unknown brother Suicide Unknown brother Diabetes mellitus Unknown Advance Directives No Advanced Directives Records FoundDocuments on File Type Date Recorded Patient Fws Faculty Assistant Expl anation Advance Directives and Livin g Will 08/30/2020 1:12 PM NOT IN SORIAN Documents on File Type Date Recorded Patient Fws Faculty Assistant Expl anation Advance Directives and Livin g Will 01/06/2021 7:32 AM NOT IN SORIAN Documents on File Type Date Recorded Patient Fws Faculty Assistant Expl anation Advance Directives and Livin g Will 01/06/2021 7:32 AM NOT IN SORIAN Documents on File Type Date Recorded Patient Fws Faculty Assistant Expl anation Advance Directives and Livin g Will 06/02/2021 8:55 AM NOT IN SORIAN Documents on File Type Date Recorded Patient Fws Faculty Assistant Expl anation Advance Directives and Livin g Will 06/16/2021 12:00 AM Documents on File Type Date Recorded Patient Fws Faculty Assistant Expl anation Advance Directives and Livin g Will 06/16/2021 12:00 AM Documents on File Type Date Recorded Patient Fws Faculty Assistant Expl anation Advance Directives and Living Will 06/16/2021 Latest Code Status on File Code Status Date Activated Date Inactivated Comments Full Code 07/01/2021 6:10 AM 07/01/2021 9:33 AM Documents on File Type Date Recorded Patient Fws Faculty Assistant Expl anation Advance Directives and Living Will 06/16/2021 Latest Code Status on File Code Status Date Activated Date Inactivated Comments Full Code 07/01/2021 6:10 AM 07/01/2021 9:33 AM Latest Code Status on File Code Status Date Activated Date Inactivated Comments Full Code 08/24/2021 10:22 AM 08/24/2021 5:36 PM Full Code 08/22/2021 11:13 AM 08/24/2021 10:21 AM Full Code 08/13/2021 10:13 AM 08/22/2021 11:13 AM Full Code 08/12/2021 2:18 PM 08/13/2021 10:13 AM Full Code 07/01/2021 6:10 AM 07/01/2021 9:33 AM Documents on File Type Date Recorded Patient Fws Faculty Assistant Expl anation Advance Directives and Living Will 09/25/2021 Documents on File Type Date Recorded Patient Fws Faculty Assistant Expl anation Advance Directives and Living Will 09/25/2021 Latest Code Status on File Date Activated Date Inactivated Comments 08/24/2021 10:22 AM 08/24/2021 5:36 PM Full Code Date Activated Date Inactivated Comments 08/22/2021 11:13 AM 08/24/2021 10:21 AM Full Code Date Activated Date Inactivated Comments 08/13/2021 10:13 AM 08/22/2021 11:13 AM Full Code Date Activated Date Inactivated Comments 08/12/2021 2:18 PM 08/13/2021 10:13 AM Full Code Date Activated Date Inactivated Comments 07/01/2021 6:10 AM 07/01/2021 9:33 AM Latest Code Status on File Date Activated Date Inactivated Comments 08/24/2021 10:22 AM 08/24/2021 5:36 PM Full Code Date Activated Date Inactivated Comments 08/22/2021 11:13 AM 08/24/2021 10:21 AM Full Code Date Activated Date Inactivated Comments 08/13/2021 10:13 AM 08/22/2021 11:13 AM Full Code Date Activated Date Inactivated Comments 08/12/2021 2:18 PM 08/13/2021 10:13 AM Full Code Date Activated Date Inactivated Comments 07/01/2021 6:10 AM 07/01/2021 9:33 AM Latest Code Status on File Code Status Date Activated Date Inactivated Comments Full Code 08/24/2021 10:22 AM 08/24/2021 5:36 PM Code Status History Code Status Date Activated Date Inactivated Comments Full Code 08/22/2021 11:13 AM 08/24/2021 10:21 AM Full Code 08/13/2021 10:13 AM 08/22/2021 11:13 AM Full Code 08/12/2021 2:18 PM 08/13/2021 10:13 AM Full Code 07/01/2021 6:10 AM 07/01/2021 9:33 AM Documents on File Type Date Recorded Patient Fws Faculty Assistant Expl anation Advance Directives and Livin g Will 03/09/2022 3:49 PM Latest Code Status on File Code Status Date Activated Date Inactivated Comments Full Code 03/09/2022 2:09 PM 03/13/2022 5:21 PM Code Status History Code Status Date Activated Date Inactivated Comments Full Code 08/24/2021 10:22 AM 08/24/2021 5:36 PM Full Code 08/22/2021 11:13 AM 08/24/2021 10:21 AM Full Code 08/13/2021 10:13 AM 08/22/2021 11:13 AM Full Code 08/12/2021 2:18 PM 08/13/2021 10:13 AM Documents on File Type Date Recorded Patient Fws Faculty Assistant Expl anation Advance Directives and Livin g Will 03/09/2022 3:49 PM Latest Code Status on File Code Status Date Activated Date Inactivated Comments Full Code 03/09/2022 2:09 PM 03/13/2022 5:21 PM Code Status History Code Status Date Activated Date Inactivated Comments Full Code 08/24/2021 10:22 AM 08/24/2021 5:36 PM Full Code 08/22/2021 11:13 AM 08/24/2021 10:21 AM Full Code 08/13/2021 10:13 AM 08/22/2021 11:13 AM Full Code 08/12/2021 2:18 PM 08/13/2021 10:13 AM Documents on File Type Date Recorded Patient Fws Faculty Assistant Expl anation Advance Directives and Livin g Will 01/10/2023 1:21 AM Advance Directives and Livin g Will 03/09/2022 3:49 PM Latest Code Status on File Code Status Date Activated Date Inactivated Comments Full Code 01/06/2023 7:16 AM Code Status History Code Status Date Activated Date Inactivated Comments Full Code - Unverified 01/06/2023 6:01 AM 01/06/2023 7 :16 AM Full Code 03/09/2022 2:09 PM 03/13/2022 5:21 PM Full Code 08/24/2021 10:22 AM 08/24/2021 5:36 PM Full Code 08/22/2021 11:13 AM 08/24/2021 10:21 AM Documents on File Type Date Recorded Patient Fws Faculty Assistant Expl anation Advance Directives and Livin g Will 01/10/2023 1:21 AM Advance Directives and Livin g Will 03/09/2022 3:49 PM Latest Code Status on File Code Status Date Activated Date Inactivated Comments Full Code - Unverified 01/15/2023 4:09 PM Code Status History Code Status Date Activated Date Inactivated Comments Full Code 01/15/2023 4:09 PM 01/15/2023 4:09 PM Full Code 01/06/2023 7:16 AM 01/15/2023 3:56 PM Full Code - Unverified 01/06/2023 6:01 AM 01/06/2023 7 :16 AM Full Code 03/09/2022 2:09 PM 03/13/2022 5:21 PM Latest Code Status on File Code Status Date Activated Date Inactivated Comments Full Code - Unverified 01/15/2023 4:09 PM 01/25/2023 3: 28 PM Latest Code Status on File Code Status Date Activated Date Inactivated Comments Full Code - Unverified 01/15/2023 4:09 PM 01/25/2023 3: 28 PM Code Status History Code Status Date Activated Date Inactivated Comments Full Code 01/15/2023 4:09 PM 01/15/2023 4:09 PM Full Code 01/06/2023 7:16 AM 01/15/2023 3:56 PM Full Code - Unverified 01/06/2023 6:01 AM 01/06/2023 7 :16 AM Full Code 03/09/2022 2:09 PM 03/13/2022 5:21 PM Date Activated Date Inactivated Comments 01/15/2023 4:09 PM 01/25/2023 3:28 PM Date Activated Date Inactivated Comments 01/15/2023 4:09 PM 01/15/2023 4:09 PM Date Activated Date Inactivated Comments 01/06/2023 7:16 AM 01/15/2023 3:56 PM Date Activated Date Inactivated Comments 01/06/2023 6:01 AM 01/06/2023 7:16 AM Date Activated Date Inactivated Comments 03/09/2022 2:09 PM 03/13/2022 5:21 PM Date Activated Date Inactivated Comments 10/15/2023 6:19 AM 10/16/2023 3:25 AM Date Activated Date Inactivated Comments 10/08/2023 10:59 AM 10/15/2023 6:19 AM Date Activated Date Inactivated Comments 01/15/2023 4:09 PM 01/25/2023 3:28 PM Date Activated Date Inactivated Comments 01/15/2023 4:09 PM 01/15/2023 4:09 PM Date Activated Date Inactivated Comments 01/06/2023 7:16 AM 01/15/2023 3:56 PM Date Activated Date Inactivated Comments 10/15/2023 6:19 AM 10/16/2023 3:25 AM Date Activated Date Inactivated Comments 10/08/2023 10:59 AM 10/15/2023 6:19 AM Date Activated Date Inactivated Comments 01/15/2023 4:09 PM 01/25/2023 3:28 PM Date Activated Date Inactivated Comments 01/15/2023 4:09 PM 01/15/2023 4:09 PM Date Activated Date Inactivated Comments 01/06/2023 7:16 AM 01/15/2023 3:56 PM Reason for Referral Status Reason Specialty Diagnoses / Procedures Referred By Contact Referred To Contact Pending Review Radiology Diagnoses SOB (shortness of breath) on exertion Procedures NM Myocardial Perfusion Multiple SPECT Shmuel Villalpando MD [address] [place] [address] Status Reason Specialty Diagnoses / Procedures Referred By Contact Referred To Contact Pending Review Cardiology Diagnoses SOB (shortness of breath) on exertion Procedures Echocardiogram complete Shmuel Villalpando MD [address] [place] [address] Status Reason Specialty Diagnoses / Procedures Referred By Contact Referred To Contact Pending Review Cardiology Diagnoses Near syncope Procedures Cardiac event monitor Shmuel Villalpando MD [address] [place] [address] Status Reason Specialty Diagnoses / Procedures Referre d By Contact Referred To Contact Closed Cardiology Diagnoses Atherosclerosis of [place] coronary artery of [place] heart, unspecified whether angina present Dizziness Procedures Carotid Duplex Naveen Rasmussen MD [address] [place] [address] Specialty Diagnoses / Procedures Referred By Contac t Referred To Contact Cardiology Diagnoses Aortic valve disease Procedures ECG 12 lead Shmuel Villalpando MD [address] [place] [address] Referral ID Status Reason Start Date Expiration Date V isits Requested Visits Authorized [id number] Authorized 06/16/2021 06/16/2022 1 1 Specialty Diagnoses / Procedures Referred By Contac t Referred To Contact Cardiology Diagnoses Aortic valve disease Aortic valve stenosis, etiology of cardiac valve disease unspecified Procedures Echocardiogram transesophageal Shmuel Villalpando MD [address] [place] [address] Referral ID Status Reason Start Date Expiration Date V isits Requested Visits Authorized [id number] New Request 06/19/2021 06/19/2022 1 1 Specialty Diagnoses / Procedures Referred By Contac t Referred To Contact Radiology Diagnoses Aortic valve stenosis, etiology of cardiac valve disease unspecified Procedures CT TAVR Chest Abdomen Pelvis without hydration Shmuel Villalpando MD [address] [place] [address] Referral ID Status Reason Start Date Expiration Date V isits Requested Visits Authorized [id number] New Request 06/23/2021 06/23/2022 1 1 Specialty Diagnoses / Procedures Referred By Contac t Referred To Contact Cardiothoracic Surgery Diagnoses Aortic valve stenosis, etiology of cardiac valve disease unspecified Shmuel Villalpando MD [address] [place] [address] Kyle Mccarthy MD [address] [place] [address] Referral ID Status Reason Start Date Expiration Date Visits Requested Visits Authorized [id number] Pending Review Specialty Services Required/Pat ient's Best Interest 06/23/2021 06/23/2022 1 1 Specialty Diagnoses / Procedures Referred By Contac t Referred To Contact Cardiothoracic Surgery Diagnoses Aortic valve stenosis, etiology of cardiac valve disease unspecified Coronary artery disease involving [place] coronary artery of [place] heart, unspecified whether angina present Shmuel Villalpando MD [address] [place] [address] Luis Beasley MD [address] [facility] [address] [place] [address] Referral ID Status Reason Start Date Expiration Date Visits Requested Visits Authorized [id number] Pending Review Specialty Services Required/Pat ient's Best Interest 07/09/2021 07/09/2022 1 1 Specialty Diagnoses / Procedures Referred By Contac t Referred To Contact Cardiology Diagnoses Aortic valve stenosis, etiology of cardiac valve disease unspecified Coronary artery disease involving [place] coronary artery of [place] heart, unspecified whether angina present Procedures Carotid Duplex Luis Beasley MD [address] [facility] [address] [place] [address] Referral ID Status Reason Start Date Expiration Date V isits Requested Visits Authorized [id number] Authorized 07/24/2021 07/24/2022 1 1 Specialty Diagnoses / Procedures Referred By Contac t Referred To Contact Cardiology Diagnoses Paroxysmal atrial fibrillation (HCC) Procedures Holter monitor- up to 48 hour Shmuel Villalpando MD [address] [place] [address] Referral ID Status Reason Start Date Expiration Date Visits Re quested Visits Authorized [id number] Closed 10/17/2021 10/17/2022 1 1 Specialty Diagnoses / Procedures Referred By Contac t Referred To Contact Cardiology Diagnoses S/P AVR Procedures Echocardiogram complete Shmuel Villalpando MD [address] [place] [address] Referral ID Status Reason Start Date Expiration Date V isits Requested Visits Authorized [id number] Pending Review 10/17/2021 10/17/2022 1 1 Specialty Diagnoses / Procedures Referred By Contac t Referred To Contact Cardiology Diagnoses Paroxysmal atrial fibrillation (HCC) Shmuel Villalpando MD [address] [place] [address] Vanda Muir MD [address] [place], [place] [phone] Referral ID Status Reason Start Date Expiration Date V isits Requested Visits Authorized [id number] Pending Review 11/17/2021 11/17/2022 1 1 Specialty Diagnoses / Procedures Referred By Contac t Referred To Contact Cardiology Diagnoses PAF (paroxysmal atrial fibrillation) (HCC) Procedures ECG 12 Lead Vanda Muir MD [address] [place] [address] Referral ID Status Reason Start Date Expiration Date V isits Requested Visits Authorized [id number] Authorized 12/22/2021 12/22/2022 15 15 Specialty Diagnoses / Procedures Referred By Contac t Referred To Contact Cardiology Diagnoses Paroxysmal atrial fibrillation (HCC) Visit for monitoring Tikosyn therapy Procedures ECG 12 lead Shmuel Villalpando MD [address] [place] [address] Referral ID Status Reason Start Date Expiration Date V isits Requested Visits Authorized [id number] Pending Review 04/15/2022 04/15/2023 1 1 Specialty Diagnoses / Procedures Referred By Contac t Referred To Contact Cardiology Diagnoses Paroxysmal atrial fibrillation (HCC) Procedures ECG 12 Lead Shmuel Villalpando MD [address] [place] [phone] Referral ID Status Reason Start Date Expiration Date V isits Requested Visits Authorized [id number] Pending Review 04/15/2022 04/15/2023 1 1 Specialty Diagnoses / Procedures Referred By Contac t Referred To Contact Cardiology Diagnoses 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 Procedures ECG 12 Lead Vanda Muir MD [address] [place] [address] Referral ID Status Reason Start Date Expiration Date V isits Requested Visits Authorized [id number] Authorized 01/04/2023 01/04/2024 15 15 Specialty Diagnoses / Procedures Referred By Contac t Referred To Contact Continuity of Care Diagnoses Acute ischemic stroke (HCC) Elevated blood pressure reading Ischemic stroke (HCC) Aortic stenosis, severe Nonrheumatic aortic valve stenosis COVID-19 NAJMA (obstructive sleep apnea) Type 2 diabetes mellitus without complication, without long-term current use of insulin (HCC) Sarah Mabry, [address] [place] [address] [address] [place] [address] Referral ID Status Reason Start Date Expiration Date Visits Requested Visits Authorized [id number] Pending Review Specialty Services Required/Pat ient's Best Interest 01/15/2023 01/15/2024 1 1 Specialty Diagnoses / Procedures Referred By Contac t Referred To Contact Shahrzad Odom DO [address] [place] [address] Referral ID Status Reason Start Date Expiration Date Visits Re quested Visits Authorized [id number] Closed 1 1 Specialty Diagnoses / Procedures Referred By Contact Referred To Contact Speech Pathology / Rehabilitation Diagnoses Acute cerebrovascular accident (CVA) ([facility]) Shahrzad Odom DO [address] [place] [phone] Op Speech Therapy [address] [place] [phone] Referral ID Status Reason Start Date Expiration Date Visits Requested Visits Authorized [id number] Authorized Patient Preference 01/22/2023 01/22/2024 1 1 Specialty Diagnoses / Procedures Referred By Contact Referred To Contact Occupational Medicine / Rehabilitation Diagnoses Acute cerebrovascular accident (CVA) ([facility]) Shahrzad Odom DO [address] [place] [address] Op Occ Therapy [address] [place] [phone] Referral ID Status Reason Start Date Expiration Date Visits Requested Visits Authorized [id number] Authorized Patient Preference 01/22/2023 01/22/2024 1 1 Specialty Diagnoses / Procedures Referred By Contact Referred To Contact Physical Therapy / Rehabilitation Diagnoses Acute cerebrovascular accident (CVA) ([facility]) Shahrzad Odom DO [address] [place] [address] Rehab Pt Neuro [address] [place] [phone] Referral ID Status Reason Start Date Expiration Date Visits Requested Visits Authorized [id number] Authorized Patient Preference 01/22/2023 01/22/2024 1 1 Medications Administered Section Active Administered Medications - up to 3 most recent administrations Medication Order MAR Action Action Date Dose Rate Site PHENYLephrine 2.5 % 1 Drop (AK-DILATE, MIRIAM-SYNEPHRINE) 1 Drop, BOTH EYES, DIRECTED, Starting on Susie 05/07/22 at 1030, Until Susie 05/07/22 at 2229, Administer for dilation PROTECT FROM LIGHT Given 05/07/2022 10:30 AM EDT 1 Drop proparacaine 0.5 % 1 Drop (ALCAINE) 1 Drop, BOTH EYES, DIRECTED, Starting on Susie 05/07/22 at 1030, Until Susie 05/07/22 at 2229, Administer for pneumo tonometry, tonopen tonometry, or pachymetry. In the event of a proparacaine shortage, administer tetracaine 0.5% ophthalmic drops 1 drop in the left eye as directed for pneumo tonometry, tonopen tonometry, or pachymetry Given 05/07/2022 10:30 AM EDT 1 Drop tropicamide 1 % 1 Drop (MYDRIACYL) 1 Drop, BOTH EYES, DIRECTED, Starting on Susie 05/07/22 at 1030, Until Susie 05/07/22 at 2229, Administer for dilation Given 05/07/2022 10:30 AM EDT 1 Drop Chief Complaint and Reason for Visit Chief Complaint acute - needs meds Reason for Visit Acquired hypothyroid ism Alzheimer disease BPH (benign prostatic hyperplasia) CAD (coronary artery disease) Essential hypertension Medication refill Mixed hyperlipidemia Obstructive sleep apnea Type 2 diabetes mellitus Chronic atrial fibrillation Chief Complaint acute - 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 EST CARE - PPW SENT Reason for Visit Acquired hypothyroid ism Alzheimer disease BPH (benign prostatic hyperplasia) CAD (coronary artery disease) Essential hypertension Mixed hyperlipidemia Obstructive sleep apnea Type 2 diabetes mellitus Chronic atrial fibrillation Medication refill Acquired hypothyroidism BPH (benign prostatic hyperplasia) CAD (coronary artery disease) Essential hypertension History of CVA (cerebrovascular accident) Obstructive sleep apnea Type 2 diabetes mellitus Chronic atrial fibrillation Acute exacerbation of chronic low back pain Establishing care with new doctor, encounter for Low platelet count Anxiety and depression Chief Complaint acute - 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 EST CARE - PPW SENT 7 WEEK FU Reason for Visit Acquired hypothyroid ism Alzheimer disease BPH (benign prostatic hyperplasia) CAD (coronary artery disease) Essential hypertension Mixed hyperlipidemia Obstructive sleep apnea Type 2 diabetes mellitus Chronic atrial fibrillation Medication refill Acquired hypothyroidism BPH (benign prostatic hyperplasia) CAD (coronary artery disease) Essential hypertension History of CVA (cerebrovascular accident) Obstructive sleep apnea Type 2 diabetes mellitus Chronic atrial fibrillation Acute exacerbation of chronic low back pain Establishing care with new doctor, encounter for Low platelet count Anxiety and depression Acquired hypothyroidism BPH (benign prostatic hyperplasia) CAD (coronary artery disease) Essential hypertension History of CVA (cerebrovascular accident) Obstructive sleep apnea Type 2 diabetes mellitus Chronic atrial fibrillation Chronic low back pain Low platelet count Anxiety and depression Chief Complaint Admit Date 3 M FU February 24, 2024 12 :43pm PSA May 11, 2024 10: 57am Reason for Visit Admit Date Acquired hypothyroidism February 23 12:43pm BPH (benign prostatic hyperplasia) [facility] ry 2024 12:43pm CAD (coronary artery disease) February 12:43pm Essential hypertension February 24, 2024 12:43pm History of CVA (cerebrovascular accident ) February 24, 2024 12:43pm Obstructive sleep apnea February 23 12:43pm Type 2 diabetes mellitus February 23 12:43pm Chronic atrial fibrillation February 24, 2024 12:43pm Fatigue February 24, 2024 12 :43pm Low platelet count February 24, 2024 12 :43pm Anxiety and depression February 24, 2024 12:43pm Numbness and tingling in left hand Feb ry 2024 12:43pm Chief Complaint Admit Date 3 M FU February 24, 2024 12 :43pm PSA May 11, 2024 10: 57am 3 M FU May 24, 2024 1:13 pm Reason for Visit Admit Date Acquired hypothyroidism February 23 12:43pm BPH (benign prostatic hyperplasia) [facility] ry 2024 12:43pm CAD (coronary artery disease) February 12:43pm Essential hypertension February 24, 2024 12:43pm History of CVA (cerebrovascular accident ) February 24, 2024 12:43pm Obstructive sleep apnea February 23 12:43pm Type 2 diabetes mellitus February 23 12:43pm Chronic atrial fibrillation February 24, 2024 12:43pm Fatigue February 24, 2024 12 :43pm Low platelet count February 24, 2024 12 :43pm Anxiety and depression February 24, 2024 12:43pm Numbness and tingling in left hand Yanely ry 2024 12:43pm Acquired hypothyroidism May 24, 2024 1:13pm BPH (benign prostatic hyperplasia) May 24, 2024 1:13pm CAD (coronary artery disease) May 24, 2024 1:13pm Essential hypertension May 24, 2024 1 :13pm History of CVA (cerebrovascular accident ) May 24, 2024 1:13pm Obstructive sleep apnea May 24, 2024 1:13pm Type 2 diabetes mellitus May 24, 2024 1:13pm Chronic atrial fibrillation May 24, 025 1:13pm Fatigue May 24, 2024 1:13 pm Low platelet count May 24, 2024 1:13 pm Anxiety and depression May 24, 2024 1 :13pm Fall May 24, 2024 1:13 pm Additional Source Comments (unrecognized sect ion and content) No Status Records FoundNo Status Records FoundNo Status Records FoundNo Status Records FoundNo Status Records FoundNo Status Records FoundNo Status Records FoundNo Status Records Found INFORMATION SOURCE (unrecogn ized section and content) DATE CREATED AUTHOR 01/24/2018 [facility] DATE CREATED AUTHOR AUTHOR'S ORGANIZ ATION 02/15/2022 [facility] DATE CREATED AUTHOR AUTHOR'S ORGANIZ ATION 02/07/2023 [facility] DATE CREATED AUTHOR AUTHOR'S ORGANIZ ATION 06/24/2024 [facility] DATE CREATED AUTHOR AUTHOR'S ORGANIZ ATION 07/05/2024 [facility] DATE CREATED AUTHOR AUTHOR'S ORGANIZ ATION 07/31/2024 [facility] DATE CREATED AUTHOR AUTHOR'S ORGANIZ ATION 08/08/2024 [facility] DATE CREATED AUTHOR AUTHOR'S ORGANIZ ATION 08/13/2024 [facility] Reason for Visit (unrecogniz ed section and content) Reason Comments Physical Therapy Specialty Diagnoses / Procedures Referred By Contact Referred To Contact Physical Therapy / Rehabilitation Diagnoses Acute cerebrovascular accident (CVA) ([facility]) Shahrzad Odom DO [address] [place] [address] Rehab Pt Neuro [address] [place] [phone] Referral ID Status Reason Start Date Expiration Date Visits Requested Visits Authorized [id number] Authorized Patient Preference 3 02/14/2023 1 11 Reason Comments Follow-up re-establish care-CA D/dizziness Status Reason Specialty Diagnoses / Procedures Referred By Contact Referred To Contact Pending Review Specialty Services Required/Patie nt's Best Interest Cardiology Diagnoses Coronary artery disease, unspecified vessel or lesion type, unspecified whether angina present, unspecified whether [place] or transplanted heart Dizziness Naveen Rasmussen MD [address] [place] [address] [place] [phone] Status Reason Specialty Diagnoses / Procedures Referred By Contact Referred To Contact Pending Review Cardiology Diagnoses Near syncope Procedures Cardiac event monitor Shmuel Villalpando MD [address] [place] [phone] Status Reason Specialty Diagnoses / Procedures Referre d By Contact Referred To Contact Closed Cardiology Diagnoses Atherosclerosis of [place] coronary artery of [place] heart, unspecified whether angina present Dizziness Procedures Carotid Duplex Naveen Rasmussen MD [address] [place] [address] Specialty Diagnoses / Procedures Referred By Contac t Referred To Contact Infusion Therapy Diagnoses COVID-19 Naveen Rasmussen MD [address] [place] [address] Specialty Infusn [address] [place] [phone] Referral ID Status Reason Start Date Expiration Date V isits Requested Visits Authorized [id number] Pending Review 01/03/2021 01/03/2022 1 1 Reason Comments Follow-up Per Dr. 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 Patient complains of fatigue, chest pain, and shortness of breath. Specialty Diagnoses / Procedures Referred By Adarsh erickson Referred To Contact Cardiothoracic Surgery Diagnoses Aortic valve stenosis, etiology of cardiac valve disease unspecified Coronary artery disease involving [place] coronary artery of [place] heart, unspecified whether angina present Shmuel Villalpando MD [address] [place] [phone] Luis Beasley MD [facility] [address] [place] [address] Referral ID Status Reason Start Date Expiration Date Visits Requested Visits Authorized [id number] Pending Review Specialty Services Required/Pat maynt's Best Interest 07/09/2021 07/09/2022 1 1 Reason Onset Date Comments Phase II Cardiac Rehab 09/22/2021 Reason Comments Follow-up S/P CABG/AVR/MAZE/LA A clip 08/12/21. Patient states he has been feeling well with no complaints. Reason Comments Follow-up Reason Comments Initial Visit (Intake) PAF/[place] Specialty Diagnoses / Procedures Referred By Adarsh erickson Referred To Contact Cardiology Diagnoses Paroxysmal atrial fibrillation (HCC) Shmuel Villalpando MD [address] [place] [address] Vanda Muir MD [address] [place] [phone] Referral ID Status Reason Start Date Expiration Date V isits Requested Visits Authorized [id number] Pending Review 11/17/2021 11/17/2022 1 1 Reason Comments Medication Refill Reason Onset Date Comments Medication Refill 03/13/2022 Reason Comments Insulin Dependent Diabetes Mellitus Bloo d sugar 140 Reason Comments Stroke Alert Specialty Diagnoses / Procedures Referred By Contac t Referred To Contact Diagnoses Elevated blood pressure reading Acute ischemic stroke (HCC) Ischemic stroke (HCC) stroke alert Referral ID Status Reason Start Date Expiration Date Visits Re quested Visits Authorized [id number] 1 1 Specialty Diagnoses / Procedures Referred By Contac t Referred To Contact Referral ID Status Reason Start Date Expiration Date Visits Re quested Visits Authorized [id number] 1 1 Reason Comments Speech Therapy Specialty Diagnoses / Procedures Referred By Contact Referred To Contact Speech Pathology / Rehabilitation Diagnoses Acute cerebrovascular accident (CVA) (HCC) Shahrzad Odom DO [address] [place] [phone] Op Speech Therapy [address] [place] [phone] Referral ID Status Reason Start Date Expiration Date Visits Requested Visits Authorized [id number] Authorized Patient Preference 3 02/14/2023 1 11 Reason Comments Occupational Therapy Neuro Specialty Diagnoses / Procedures Referred By Contact Referred To Contact Occupational Medicine / Rehabilitation Diagnoses Acute cerebrovascular accident (CVA) ([facility]) Shahrzad Odom DO [address] [place] [address] Op Occ Therapy [address] [place] [phone] Referral ID Status Reason Start Date Expiration Date Visits Requested Visits Authorized [id number] Authorized Patient Preference 3 02/14/2023 1 11 Reason Comments Physical Therapy Neuro Referral ID Status Reason Start Date Expiration Date Visits Requested Visits Authorized [id number] Pending Review Patient Preference 3 02/14/2023 1 11 Reason Comments Diabetes Reason Comments Follow-up Tikosyn Reason Comments Follow-up Pt states that thing s are going well, states the only concern is he had a dizzy spell last night. Reason Comments Cerebrovascular Accident Patient states that things have been going well since being home Reason Comments Follow-up Overdue/ DR. Villalpando Reason Comments Follow-up 3 mo tikosyn Care Teams (unrecognized sec tion and content) Thread Trimmer Relationship Specialty Start Date End Date Naveen Rasmussen MD [address] [place] [address] PCP - General Family Medicine 11/27/15 Thread Trimmer Relationship Specialty Start Date End Date Naveen Rasmussen MD [address] [place] [address] PCP - General Family Medicine 11/27/15 Thread Trimmer Relationship Specialty Start Date End Date Naveen Rasmussen MD [address] [place] [address] PCP - General Family Medicine 11/27/15 Thread Trimmer Relationship Specialty Start Date End Date Naveen Rasmussen MD [address] [place] [address] PCP - General Family Medicine 11/27/15 Thread Trimmer Relationship Specialty Start Date End Date Naveen Rasmussen MD [address] [place] [address] PCP - General Family Medicine 11/27/15 Thread Trimmer Relationship Specialty Start Date End Date Naveen Rasmussen MD [address] [place] [address] PCP - General Family Medicine 11/27/15 Thread Trimmer Relationship Specialty Start Date End Date Naveen Rasmussen MD [address] [place] [address] PCP - General Family Medicine 11/27/15 Thread Trimmer Relationship Specialty Start Date End Date Naveen Rasmussen MD [address] [place] [address] PCP - General Family Medicine 11/27/15 Thread Trimmer Relationship Specialty Start Date End Date Naveen Rasmussen MD [address] [place] [address] PCP - General Family Medicine 11/27/15 Thread Trimmer Relationship Specialty Start Date End Date Naveen Rasmussen MD [address] [place] [address] PCP - General Family Medicine 11/27/15 Thread Trimmer Relationship Specialty Start Date End Date Naveen Rasmussen MD [address] [place] [address] PCP - General Family Medicine 11/27/15 Thread Trimmer Relationship Specialty Start Date End Date Naveen Rasmussen MD [address] [place] [address] PCP - General Family Medicine 11/27/15 Thread Trimmer Relationship Specialty Start Date End Date Naveen Rasmussen MD [address] [place] [address] PCP - General Family Medicine 11/27/15 Thread Trimmer Relationship Specialty Start Date End Date Naveen Rasmussen PCP - General Family Practice 11/11/09 Thread Trimmer Relationship Specialty Start Date End Date Naveen Rasmussen MD [address] [place] [address] PCP - General Family Medicine 11/27/15 Thread Trimmer Relationship Specialty Start Date End Date Naveen Rasmussen MD [address] [place] [address] PCP - General Family Medicine 11/27/15 Thread Trimmer Relationship Specialty Start Date End Date Naveen Rasmussen MD [address] [place] [address] PCP - General Family Medicine 11/27/15 Thread Trimmer Relationship Specialty Start Date End Date Naveen Rasmussen MD [address] [place] [address] PCP - General Family Medicine 11/27/15 Thread Trimmer Relationship Specialty Start Date End Date Naveen Rasmussen MD [address] [place] [address] PCP - General Family Medicine 11/27/15 Thread Trimmer Relationship Specialty Start Date End Date Naveen Rasmussen MD [address] [place] [address] PCP - General Family Medicine 11/27/15 Thread Trimmer Relationship Specialty Start Date End Date Naveen Rasmussen MD [address] [place] [address] PCP - General Family Medicine 11/27/15 Thread Trimmer Relationship Specialty Start Date End Date Naveen Rasmussen MD [address] [place] [address] PCP - General Family Medicine 11/27/15 Thread Trimmer Relationship Specialty Start Date End Date Naveen Rasmussen PCP - General Family Medicine 11/11/09 Thread Trimmer Relationship Specialty Start Date End Date Naveen Rasmussen MD [address] [place] [address] PCP - General Family Medicine 11/27/15 Thread Trimmer Relationship Specialty Start Date End Date Naveen Rasmussen MD [address] [place] [address] PCP - General Family Medicine 11/27/15 Thread Trimmer Relationship Specialty Start Date End Date Moi Gibson MD [address] [facility] [place] [facility] [address] PCP - General Internal Medicine 01/05/23 Thread Trimmer Relationship Specialty Start Date End Date Naveen Rasmussen MD [address] [place] [address] PCP - General Family Medicine 11/27/15 01/04/23 Moi Gibson MD [address] [facility] [place] [address] PCP - General Internal Medicine 01/05/23 Thread Trimmer Relationship Specialty Start Date End Date Moi Gibson MD [address] [facility] [place] [address] PCP - General Internal Medicine 01/05/23 Thread Trimmer Relationship Specialty Start Date End Date Moi Gibson MD [address] [place] [address] PCP - General Internal Medicine 01/05/23 Thread Trimmer Relationship Specialty Start Date End Date Moi Gibson MD [address] [place] [address] PCP - General Internal Medicine 01/05/23 Thread Trimmer Relationship Specialty Start Date End Date Moi Gibson MD [address] [place] [address] PCP - General Internal Medicine 01/05/23 Thread Trimmer Relationship Specialty Start Date End Date Moi Gibson MD [address] [place] [address] PCP - General Internal Medicine 01/05/23 Thread Trimmer Relationship Specialty Start Date End Date Moi Gibson MD [address] [place] [address] PCP - General Internal Medicine 01/05/23 Thread Trimmer Relationship Specialty Start Date End Date Moi Gibson MD [address] [place] [address] PCP - General Internal Medicine 01/05/23 Thread Trimmer Relationship Specialty Start Date End Date Moi Gibson MD [address] [place] [address] PCP - General Internal Medicine 01/05/23 Thread Trimmer Relationship Specialty Start Date End Date Moi Gibson MD [address] [place] [address] PCP - General Internal Medicine 01/05/23 Thread Trimmer Relationship Specialty Start Date End Date Moi Gibson MD [address] [place] [address] PCP - General Internal Medicine 01/05/23 Team Status: Active Member Role Status Dates Dr. Moi Gibson MD Primary Care Provider Active Team Status: Inactive Member Role Status Dates KEITH Irving Attending Provider Active Team Status: Inactive Member Role Status Dates Dr. Moi Gibson MD Primary Care Provider Active KEITH Irving Attending Provider, Referring Pro vider Active Team Status: Inactive Member Role Status Dates Dr. Moi Gibson MD Primary Care Pro vider, Attending Provider, Referring Provider Active Team Status: Inactive Member Role Status Dates Dr. Moi Gibson MD Primary Care Provider, Attendi ng Provider Active Thread Trimmer Relationship Specialty Start Date End Date Moi Gibson [address] [place] [address] PCP - General 06/17/23 Thread Trimmer Relationship Specialty Start Date End Date Moi Gibson MD [address] [place] [address] PCP - General Internal Medicine 01/05/23 Juan Watt MD [address] [place] [address] PCP - JOÃO Attributed Provider - [employer] 04/16/23 02/14/50 Ellen Francois, LizbetD [address] [place] [address] Pharmacist Cardiac Electrophysiology 05/06/23 Thread Trimmer Relationship Specialty Start Date End Date Moi Gibson MD [address] [place] [address] PCP - General Internal Medicine 01/05/23 Juan Watt MD [facility] [address] [address] PCP - JOÃO Attributed Provider - [employer] 04/16/23 02/14/50 Ellen Francois, PharmD [address] [place] [address] Pharmacist Cardiac Electrophysiology 05/06/23 Thread Trimmer Relationship Specialty Start Date End Date Moi Gibson MD [address] [place] [address] PCP - General Internal Medicine 01/05/23 Juan Watt MD [address] [place] [address] PCP - JOÃO Attributed Provider - [employer] 04/16/23 02/14/50 Ellen Francois, PharmD [address] [place] [address] Pharmacist Cardiac Electrophysiology 05/06/23 Thread Trimmer Relationship Specialty Start Date End Date Moi Gibson MD [address] [place] [address] PCP - General Internal Medicine 01/05/23 Juan Watt MD [facility] [address] [address] PCP - JOÃO Attributed Provider - [employer] 04/16/23 02/14/50 Ellen Francois, PharmD [address] [place] [address] Pharmacist Cardiac Electrophysiology 05/06/23 Thread Trimmer Relationship Specialty Start Date End Date Moi Gibson MD [address] [place] [address] PCP - General Internal Medicine 01/05/23 Juan Watt MD [address] [place] [address] PCP - JOÃO Attributed Provider - [employer] 04/16/23 02/14/50 Ellen Francois, PharmD [address] [place] [address] Pharmacist Cardiac Electrophysiology 05/06/23 Thread Trimmer Relationship Specialty Start Date End Date Moi Gibson MD [address] [place] [address] PCP - General Internal Medicine 01/05/23 Juan Watt MD [facility] [address] [address] PCP - JOÃO Attributed Provider - [employer] 04/16/23 02/14/50 Ellen Francois, PharmD [address] [place] [address] Pharmacist Cardiac Electrophysiology 05/06/23 Team Status: Inactive Member Role Status Dates Dr. Moi Gibson MD Primary Care Provider Active Start: February 24, 2024 End: February 24, 2024 Dr. Moi Gibson MD Attending Provider Active Start: February 24, 2024 End: February 24, 2024 Dr. Moi Gibson MD Referring Provider Active Start: February 24, 2024 End: February 24, 2024 Team Status: Inactive Member Role Status Dates Dr. Moi Gibson MD Primary Care Provider Active Start: May 11, 2024 End: May 11, 2024 Tammy Pucketting Attending Provider Active Start : May 11, 2024 End: May 11, 2024 Tammy Pucketting Referring Provider Active Start : May 11, 2024 End: May 11, 2024 Team Status: Inactive Member Role Status Dates Dr. Moi Gibson MD Primary Care Provider Active Start: May 24, 2024 End: May 24, 2024 Dr. Moi Gibson MD Attending Provider Active Start: May 24, 2024 End: May 24, 2024 Dr. Moi Gibson MD Referring Provider Active Start: May 24, 2024 End: May 24, 2024 Team Status: Inactive Member Role Status Dates Dr. Moi Gibson MD Primary Care Provider Active Start: May 29, 2024 End: May 29, 2024 Dr. Uriel Harvey MD Attending Provider Active Start: May 29, 2024 End: May 29, 2024 Dr. Uriel Harvey MD Referring Provider Active Start: May 29, 2024 End: May 29, 2024 Thread Trimmer Relationship Specialty Start Date End Date Moi Gibson MD [address] [place] [address] PCP - General Internal Medicine 06/21/24 Thread Trimmer Relationship Specialty Start Date End Date Moi Gibson MD [address] [place] [address] PCP - General Internal Medicine 07/28/24 Ellen Francois PharmD [address] [place] [address] Pharmacist Cardiac Electrophysiology 05/06/23 <item> Privacy Markings (unrecogniz ed section and content) Section Author: Lurdes Calderon PROHIBITION ON REDISCLOSURE OF CONFIDENTIAL INFORMATION This notice accompanies a disclosure of information concerning a client made to you with the consent of such client. Source Comments (unrecognize d section and content) In the event this informatio n is protected by the Federal Confidentiality of Alcohol and Drug Abuse Patient Records regulations: The Federal rules restrict any use of the information to criminally investigate or prosecute any alcohol or drug abuse patient.[facility] the event this information is protected by the Federal Confidentiality of Alcohol and Drug Abuse Patient Records regulations: The Federal rules restrict any use of the information to criminally investigate or prosecute any alcohol or drug abuse patient.[facility] the event this information is protected by the Federal Confidentiality of Alcohol and Drug Abuse Patient Records regulations: The Federal rules restrict any use of the information to criminally investigate or prosecute any alcohol or drug abuse patient.[facility] the event this information is protected by the Federal Confidentiality of Alcohol and Drug Abuse Patient Records regulations: The Federal rules restrict any use of the information to criminally investigate or prosecute any alcohol or drug abuse patient.[facility] Scheduled Active and Recently Administ ered Medications (unrecognized section and content) Medication Order 03/11/2022 03/12/2022 03/13/2022 amLODIPine (NORVASC) tablet 10 mg 10 mg, Oral, Daily, First dose on Wed03/10/22 at 0900 0823 (Given - Provider: Sanya Bedolla RN) 0852 (Given - Provider: Sanya Bedolla RN) 0804 (Given - Provider: Kassidy Escalona RN) atorvastatin (LIPITOR) tablet 40 mg 40 mg, Oral, Nightly, First dose on Wed03/10/22 at 2100 2055 (Given - Provider: Cesia Saha RN) 2056 (Given - Provider: Esa Fontanez RN) cyanocobalamin (B-12) tablet 1,000 mcg 1,000 mcg, Oral, Daily, First dose on Wed03/10/22 at 0900 0823 (Given - Provider: Sanya Bedolal RN) 0852 (Given - Provider: Sanya Bedolla RN) 0804 (Given - Provider: Kassidy Escalona RN) dofetilide (TIKOSYN) capsule 250 mcg 250 mcg, Oral, Every 12 hours scheduled, First dose (after last modification) on Susie 03/12/22 at 0900, Do not initiate dofetlide without physician order unless: potassium is greater than 4 mEq/L magnesium is greater than 2 mg/dL Exceptions: May give initial dose if electrolyte replacement has been administered, or if patient is continuing home dofetilide therapy. If QTc is greater than 500 msec or CrCl is less than 20 mL/min, hold dofetilide and contact prescriber, unless otherwise directed. Provide Tikosyn Education Guide with first dose (see link). Ensure doses are at least 10 hours apart, Select One: New Initiation, Is baseline QTc less than 440 msec OR less than 500 msec with ventricular conduction abnormality: Yes, Is CrCl greater 20 mL/min? Yes, Ordering restricted to cardiology prescriber: OTHER, Provide rationale for ordering outside of [facility] approved prescriber restrictions: EP RACIEL for Dr Muir 0929 (Given - Provider: Sanya Bedolla RN)2057 (Given - Provider: Esa Fontanez RN) 809 (Given - Provider: Kassidy Escalona RN) dofetilide (TIKOSYN) capsule 500 mcg (CANCELED) 500 mcg, Oral, Every 12 hours scheduled, First dose on Wed03/09/22 at 2100, Do not initiate dofetlide without physician order unless: potassium is greater than 4 mEq/L magnesium is greater than 2 mg/dL Exceptions: May give initial dose if electrolyte replacement has been administered, or if patient is continuing home dofetilide therapy. If QTc is greater than 500 msec or CrCl is less than 20 mL/min, hold dofetilide and contact prescriber, unless otherwise directed. Provide Tikosyn Education Guide with first dose (see link). Ensure doses are at least 10 hours apart, Select One: New Initiation, Is baseline QTc less than 440 msec OR less than 500 msec with ventricular conduction abnormality: Yes, Is CrCl greater 20 mL/min? Yes, Ordering restricted to cardiology prescriber: OTHER, Provide rationale for ordering outside of [facility] approved prescriber restrictions: EP RACIEL for Dr Muir 0823 (Given - Provider: Sanya Bedolla, RN) furosemide (LASIX) tablet 40 mg 40 mg, Oral, Daily, First dose on Wed03/10/22 at 0900 0823 (Given - Provider: Sanya Bedolla, RN) 0852 (Given - Provider: Sanya Bedolla, RN) 0804 (Given - Provider: Kassidy Escalona RN) insulin glargine (LANTUS) injection 20 Units 20 Units, Subcutaneous, Nightly, First dose on Wed03/09/22 at 2100, Do not mix with other insulins in a syringe. Do NOT hold basal insulin without notifying physician 2055 (Given - Provider: Cesia Saha, TAI) 2055 (Given - Provider: Esa Fontanez, TAI) insulin lispro (AdmeLOG,HumaLOG) injection 0-15 Units 0-15 Units, Subcutaneous, At bedtime, First dose on Wed03/09/22 at 2100, For Nightly Insulin Dose Coverage, use: CORRECTIVE (Only) for BG greater than 300, Nightly CORRECTIVE Dose Method: Specific Corrective Dose, Nightly Specific CORRECTIVE dose (units of insulin): 2, For Downtime Calculator, use: Insulin SC NIGHTtime 2056 (Not Given - Provider: Cesia Saha RN - Reason: Order parameters not met) 2099 (Not Given - Provider: Esa Fontanez RN - Reason: Order parameters not met) insulin lispro (AdmeLOG,HumaLOG) injection 0-30 Units 0-30 Units, Subcutaneous, 3 times daily before meals, First dose on Wed03/09/22 at 1630, Dose should be given 10-15 minutes before a meal. If poor oral intake, nausea or blood glucose value < 80 before meal, give of the dose (rounded up to nearest unit) immediately after meal completed. If patient skipping meal, hold base prandial dose and continue to use corrective insulin as ordered. Once diet resumed, total base prandial + corrective doses may be given., Prandial Insulin Dosing Method: NO Prandial Dose - Corrective Scale ONLY, Corrective Insulin Regimen (select desired scale to cover BG result): Normal Sensitivity Scale, For Downtime Calculator, use: Insulin SC MEALtime PREprandial 0730 (Not Given - Provider: Sanya Bedolla, RN - Reason: Order parameters not met)1130 (Canceled Entry - Provider: Sanya Bedolla RN)1206 (Not Given - Provider: Sanya Bedolla RN - Reason: Order parameters not met)1749 (Given - Provider: Sanya Bedolla RN) 0730 (Not Given - Provider: Sanya Bedolla RN - Reason: Order parameters not met)1130 (Not Given - Provider: Sanya Bedolla RN - Reason: Order parameters not met)1630 (Not Given - Provider: Sanya Bedolla RN - Reason: Order parameters not met) 0730 (Not Given - Provider: Kassidy Escalona RN - Reason: Order parameters not met)1130 (Given - Provider: Kassidy Escalona RN) levothyroxine (SYNTHROID, LEVOTHROID) tablet 175 mcg 175 mcg, Oral, Daily, First dose on Wed03/10/22 at 0600, For patients on continuous tube feed: Hold TF from 1 hr before until 1 hr after each dose. TF rate may need adjustment to meet caloric needs. 0542 (Given - Provider: Lauren Hernandez RN) 0556 (Given - Provider: Cesia Saah RN) 0520 (Given - Provider: Esa Fontanez RN) lisinopriL (PRINIVIL,ZESTRIL) tablet 10 mg 10 mg, Oral, Daily with lunch, First dose on Wed03/10/22 at 1200 1330 (Given - Provider: Sanya Bedolla RN) 1140 (Given - Provider: Sanya Bedolla, TAI) 1409 (Given - Provider: Kassidy Escalona RN) metoprolol tartrate (LOPRESSOR) tablet 12.5 mg (CANCELED) 12.5 mg, Oral, 2 times daily, First dose on Wed03/12/22 at 1130 1140 (Given - Provider: Sanya Bedolla, RN)2058 (Given - Provider: Esa Fontanez, TAI) 0803 (Given - Provider: Kassidy Escalona RN) multivitamin (THERAGRAN) per tablet 1 tablet 1 tablet, Oral, Daily, First dose on Wed03/10/22 at 0900 0823 (Given - Provider: Sanya Bedolla, RN) 0852 (Given - Provider: Sanya Bedolla, RN) 0803 (Given - Provider: Kassidy Escalona RN) pantoprazole (PROTONIX) EC tablet 40 mg 40 mg, Oral, Daily, First dose on Wed03/10/22 at 0900, DO NOT CRUSH OR CHEW. 08 (Given - Provider: Sanya Bedolla, RN) 08 (Given - Provider: Sanya Bedolla RN) 08 (Given - Provider: Kassidy Escalona, RN) potassium chloride SA (K-DUR,KLOR-CON) CR tablet 20 mEq 20 mEq, Oral, Daily, First dose on Wed03/09/22 at 1545, DO NOT CRUSH OR CHEW (if instructed may dissolve tablet(s) in liquid) DO NOT ADMINISTER DISSOLVED TABLET VIA SURGICALLY PLACED TUBE OR TUBE less than 14 Ukrainian. To administer dissolved tablet(s) mix with 4 ounces of water over 2-3 minutes, stir for 30 seconds prior to administration; rinse dosing cup and administer residual medication to ensure full dose given 08 (Given - Provider: Sanya Bedolla, TAI) 08 (Given - Provider: Sanya Bedolla, RN) 08 (Given - Provider: Kassidy Escalona, RN) sodium chloride (PF) (NS) flush 5 mL(Linked Group 1) 5 mL, Intravenous, Every 8 hours scheduled, First dose on Wed03/09/22 at 1500, Saline lock 0543 (Given - Provider: Lauren Hernandez, TAI)1331 (Given - Provider: Sanya Bedolla, TAI)2200 (Given - Provider: Cesia Saha, TAI) 0556 (Given - Provider: Cesia Saha, RN)1636 (Given - Provider: Sanya Bedolla, RN)2058 (Given - Provider: Esa Fontanez, RN) 0521 (Given - Provider: Esa Fontanez, TAI)1400 (Due) tamsulosin (FLOMAX) 24 hr capsule 0.4 mg 0.4 mg, Oral, Daily, First dose on Wed03/10/22 at 0900, DO NOT CRUSH OR CHEW. Give 30 minutes after the same meal daily. Monitor for orthostasis due to potential risk of syncope. 08 (Given - Provider: Sanya Bedolla RN) 08 (Given - Provider: Sanya Bedolla, RN) 08 (Given - Provider: Kassidy Escalona RN) warfarin (COUMADIN) tablet 5 mg (COMPLETED) 5 mg, Oral, Once, On Wed03/11/22 at 1800, For 1 dose, Check INR prior to administration. Notify physician if patient refuses med. CATEGORY D HAZARDOUS DRUG use safe handling precautions. Use reference link to view PPE guidelines. Minimize crushing/splitting only to situations where clinically necessary. P/U LISTED HAZARDOUS DRUG. Dispose of waste in Black Container. 1748 (Given - Provider: Sanya Bedolla RN) warfarin (COUMADIN) tablet 5 mg 5 mg, Oral, Once, On Wed03/13/22 at 1800, For 1 dose, Check INR prior to administration. Notify physician if patient refuses med. CATEGORY D HAZARDOUS DRUG use safe handling precautions. Use reference link to view PPE guidelines. Minimize crushing/splitting only to situations where clinically necessary. P/U LISTED HAZARDOUS DRUG. Dispose of waste in Black Container. PRN Medication Order 03/11/2022 03/12/2022 03/13/2022 acetaminophen (TYLENOL) tablet 650 mg 650 mg, Oral, Every 4 hours PRN, mild pain, fever 100.4 F or greater, headaches, Starting on Wed03/09/22 at 1408 melatonin tablet 3 mg 3 mg, Oral, Nightly PRN, Sleep, Starting on Wed03/09/22 at 1409 ondansetron (ZOFRAN) injection 4 mg(Linked Group 2) 4 mg, Intravenous, Every 6 hours PRN, nausea, vomiting, Starting on Wed03/09/22 at 1409, Use oral route first, if tolerated. ondansetron (ZOFRAN-ODT) disintegrating tablet 4 mg(Linked Group 2) 4 mg, Oral, Every 6 hours PRN, nausea, vomiting, Starting on Wed03/09/22 at 1409, Use oral route first, if tolerated. Formulation requires tablet remain in sealed package until immediately prior to dose being administered. senna (SENOKOT) tablet 8.6 mg 8.6 mg (1 tablet), Oral, 2 times daily PRN, constipation, Starting on Wed03/09/22 at 1409 sodium chloride (PF) (NS) flush 5 mL(Linked Group 1) 5 mL, Intravenous, As needed, line care, Starting on Wed03/09/22 at 1406 sodium chloride 0.9% (NS)(Linked Group 1) 0-150 mL/hr, Intravenous, As needed, To flush line after IV infusions when no maintenance IV ordered or a compatibility issue. Infuse 20ml at the same rate as the secondary infusion, Starting on Wed03/09/22 at 1406, Run as Primary IV. NOT intended for KVO. traZODone (DESYREL) tablet 50 mg 50 mg, Oral, Nightly PRN, sleep, Starting on Wed03/09/22 at 1448 Linked Groups Order Group 1: Saline lock IV (CANCELED) Routine, Continuous, Starting on Wed03/09/22 at 1407, Until Specified And sodium chloride (PF) (NS) flush 5 mLJump to med 5 mL, Intravenous, As needed, line care, Starting on Wed03/09/22 at 1406 And sodium chloride (PF) (NS) flush 5 mLJump to med 5 mL, Intravenous, Every 8 hours scheduled, First dose on Wed03/09/22 at 1500
Saline lock
And sodium chloride 0.9% (NS)Jump to med 0-150 mL/hr, Intravenous, As needed, To flush line after IV infusions when no maintenance IV ordered or a compatibility issue. Infuse 20ml at the same rate as the secondary infusion, Starting on Wed03/09/22 at 1406
Run as Primary IV. NOT intended for KVO.
Group 2: ondansetron (ZOFRAN-ODT) disintegrating tablet 4 mgJump to med 4 mg, Oral, Every 6 hours PRN, nausea, vomiting, Starting on Wed03/09/22 at 1409
Use oral route first, if tolerated. Formulation requires tablet remain in sealed package until immediately prior to dose being administered.
Or ondansetron (ZOFRAN) injection 4 mgJump to med 4 mg, Intravenous, Every 6 hours PRN, nausea, vomiting, Starting on Wed03/09/22 at 1409
Use oral route first, if tolerated.
Scheduled Medication Order 01/13/2023 01/14/2023 01/15/2023 amLODIPine (NORVASC) tablet 10 mg 10 mg, Oral, Daily, First dose on Wed01/06/23 at 0900 0820 (Given - Provider: Olga Rodriguez RN) 0836 (Given - Provider: Lauren Acosta RN) 0825 (Given - Provider: Yamileth Hanley, TAI) apixaban (ELIQUIS) tablet 5 mg 5 mg, Oral, 2 times daily, First dose on Wed01/11/23 at 0800, Indication: Atrial Fibrillation 819 (Given - Provider: Olga Rodriguez RN)2017 (Given - Provider: Zaida Musa, TAI) 0835 (Given - Provider: Lauren Acosta, RN)2038 (Given - Provider: Marcelina Morgan, RN) 824 (Given - Provider: Yamileth Hanley RN) atorvastatin (LIPITOR) tablet 40 mg 40 mg, Oral, Nightly, First dose on Wed01/06/23 at 2100 2017 (Given - Provider: Zaida Musa, TAI) 2038 (Given - Provider: Marcelina Morgan, RN) cyanocobalamin (B-12) tablet 1,000 mcg 1,000 mcg, Oral, Daily, First dose on Susie 01/07/23 at 1130 0820 (Given - Provider: Olga Rodriguez RN) 08 (Given - Provider: Lauren Acosta RN) 824 (Given - Provider: Yamileth Hanley, RN) dofetilide (TIKOSYN) capsule 250 mcg 250 mcg, Oral, Every 12 hours scheduled, First dose on Wed01/06/23 at 1000, If QTc is greater than 500 msec or CrCl is less than 20 mL/min, hold dofetilide and contact prescriber, unless otherwise directed. Provide Tikosyn Education Guide with first dose (see link). Ensure doses are at least 10 hours apart, Select One: Continuation of Ongoing Treatment, Ordering restricted to cardiology prescriber: OTHER, Provide rationale for ordering outside of [facility] approved prescriber restrictions: Home medication for patient that was admitted to [facility] 08 (Given - Provider: Olga Rodriguez, TAI)2017 (Given - Provider: Zaida Musa, TAI) 08 (Given - Provider: Lauren Acosta RN)2099 (Given - Provider: Marcelina Morgan RN) 824 (Given - Provider: Yamileth Hanley, RN) furosemide (LASIX) tablet 20 mg 20 mg, Oral, Daily, First dose (after last modification) on Wed01/15/23 at 0900 0825 (Given - Provider: Yamileth Hanley RN) furosemide (LASIX) tablet 40 mg (CANCELED) 40 mg, Oral, Daily, First dose on Wed01/07/23 at 1130 0820 (Given - Provider: Olga Rodriguez RN) 0836 (Given - Provider: Lauren Acosta, TAI) insulin lispro (AdmeLOG,HumaLOG) injection 0-15 Units 0-15 Units, Subcutaneous, At bedtime, First dose on Wed01/08/23 at 2100, For Nightly Insulin Dose Coverage, use: CORRECTIVE (Only) for BG greater than 300, Nightly CORRECTIVE Dose Method: Specific Corrective Dose, Nightly Specific CORRECTIVE dose (units of insulin): 2, For Downtime Calculator, use: Insulin SC NIGHTtime 2017 (Not Given - Provider: Zaida Musa RN - Reason: Order parameters not met) 2100 (Not Given - Provider: Marcelnia Morgan RN - Reason: Order parameters not met) insulin lispro (AdmeLOG,HumaLOG) injection 0-30 Units 0-30 Units, Subcutaneous, 3 times daily before meals, First dose on Wed01/08/23 at 1300, Dose should be given 10-15 minutes before a meal. If poor oral intake, nausea or blood glucose value < 80 before meal, give of the dose (rounded up to nearest unit) immediately after meal completed. If patient skipping meal, hold base prandial dose and continue to use corrective insulin as ordered. Once diet resumed, total base prandial + corrective doses may be given., Prandial Insulin Dosing Method: NO Prandial Dose - Corrective Scale ONLY, Corrective Insulin Regimen (select desired scale to cover BG result): Normal Sensitivity Scale, For Downtime Calculator, use: Insulin SC MEALtime PREprandial 0822 (Given - Provider: Olga Rodriguez RN)1230 (Not Given - Provider: Olga Rodriguez RN - Reason: Order parameters not met)1719 (Given - Provider: Olga Rodriguez RN) 0835 (Given - Provider: Lauren Acosta RN - Comment: mealtime)1130 (Not Given - Provider: Lauren Acosta, RN - Reason: Contraindicated)1715 (Given - Provider: Lauren Acosta, TAI) 0835 (Given - Provider: Yamileth Hanley RN)1252 (Not Given - Provider: Yamileth Hanley RN - Reason: Order parameters not met) levothyroxine (SYNTHROID, LEVOTHROID) tablet 175 mcg 175 mcg, Oral, Daily, First dose on Wed01/07/23 at 1015, For patients on continuous tube feed: Hold TF from 1 hr before until 1 hr after each dose. TF rate may need adjustment to meet caloric needs. 0647 (Given - Provider: Zaida Musa RN) 0558 (Given - Provider: Zaida Musa RN) 0502 (Given - Provider: Dora Perera RN) lisinopriL (PRINIVIL,ZESTRIL) tablet 10 mg 10 mg, Oral, Daily with lunch, First dose on Wed01/07/23 at 1200 1234 (Given - Provider: Olga Rodriguez RN) 1121 (Given - Provider: Lauren Acosta RN) 1223 (Given - Provider: Yamileth Hanley RN) magnesium oxide (MAG-OX) tablet 400 mg 400 mg, Oral, Daily, First dose on Wed01/06/23 at 1200 0820 (Given - Provider: Olga Rodriguez RN) 0837 (Given - Provider: Lauren Acosta RN) 0825 (Given - Provider: Yamileth Hanley RN) multivitamin (THERAGRAN) per tablet 1 tablet 1 tablet, Oral, Daily, First dose on Wed01/07/23 at 1015 0820 (Given - Provider: Olga Rodriguez RN) 0836 (Given - Provider: Lauren Acosta, TAI) 0825 (Given - Provider: Yamileth Hanley, TAI) pantoprazole (PROTONIX) EC tablet 40 mg 40 mg, Oral, Daily, First dose on Wed01/07/23 at 1015, DO NOT CRUSH OR CHEW. 0819 (Given - Provider: Olga Rodriguez RN) 0837 (Given - Provider: Lauren Acosta RN) 0825 (Given - Provider: Yamileth Hanley, TAI) polyethylene glycol (MIRALAX) powder 17 g 17 g, Oral, Daily, First dose on Wed01/09/23 at 0900 0819 (Given - Provider: Olga Rodriguez RN) 0837 (Given - Provider: Lauren Acosta RN) 0824 (Given - Provider: Yamileth Hanley RN) senna-docusate (SENNA-S) 8.6-50 mg per tablet 1 tablet 1 tablet, Oral, 2 times daily, First dose on Wed01/06/23 at 0900, NOT for abdominal surgery patients. Hold for loose stools. Do Not Crush or Chew if administering orally due to bitter taste. May be crushed if given via tube. 818 (Given - Provider: Olga Rodriguez RN)2017 (Not Given - Provider: Zaida Musa RN - Reason: Patient/family refused) 835 (Given - Provider: Lauren Acosta, TAI)2038 (Given - Provider: Marcelina Morgan, RN) 824 (Given - Provider: Yamileth Hanley RN) sodium chloride (PF) (NS) flush 5 mL(Linked Group 1) 5 mL, Intravenous, Every 8 hours scheduled, First dose on Wed01/06/23 at 0700, Saline lock 0648 (Given - Provider: Zaida Musa RN)1400 (Not Given - Provider: Olga Rodriguez RN - Reason: Order parameters not met)2019 (Given - Provider: Zaida Musa RN) 0600 (Not Given - Provider: Zaida Musa RN - Reason: Patient/family refused)1400 (Not Given - Provider: Lauren Acosta RN - Reason: Other - Comment: IV infusing)2100 (Given - Provider: Marcelina Morgan, TAI) 0600 (Canceled Entry - Provider: Dora Perera RN)1400 (Due) tamsulosin (FLOMAX) 24 hr capsule 0.4 mg 0.4 mg, Oral, After evening meal, First dose on Wed01/06/23 at 1800, DO NOT CRUSH OR CHEW. Give 30 minutes after the same meal daily. Monitor for orthostasis due to potential risk of syncope. 1818 (Given - Provider: Olga Rodriguez RN) 1728 (Given - Provider: Lauren Acosta, TAI) Continuous Medication Order 01/13/2023 01/14/2023 01/15/2023 sodium chloride 0.9% (NS) (CANCELED) 75 mL/hr, Intravenous, Continuous, Starting on Susie 01/14/23 at 1015 1119 (New Bag - Provider: Lauren Acosta, RN) 0117 (New Bag - Provider: Jana Wynn, RN) PRN Medication Order 01/13/2023 01/14/2023 01/15/2023 acetaminophen (TYLENOL) solution 650 mg(Linked Group 2) 650 mg, Tube, Every 4 hours PRN, mild pain, fever 99.5 F or greater, Starting on Wed01/06/23 at 0601, [] Use oral route first, if tolerated. acetaminophen (TYLENOL) suppository 650 mg(Linked Group 2) 650 mg, Rectal, Every 4 hours PRN, mild pain, fever 99.5 F or greater, Starting on Wed01/06/23 at 0601, [] Use oral route first, if tolerated. acetaminophen (TYLENOL) tablet 650 mg(Linked Group 2) 650 mg, Oral, Every 4 hours PRN, mild pain, fever 99.5 F or greater, Starting on Wed01/06/23 at 0601, [] Use oral route first, if tolerated. albuterol (PROVENTIL) 2.5 mg /3 mL (0.083 %) nebulizer solution 2.5 mg 2.5 mg, Nebulization, Every 4 hours PRN (RT), wheezing, shortness of breath, Starting on Wed01/06/23 at 1715 hydrALAZINE (APRESOLINE) injection 10 mg 10 mg, Intravenous, Every 2 hour PRN, SBP<180. Hold for HR>110. Use Labetalol first, Starting on Wed01/06/23 at 0757 labetaloL (NORMODYNE) injection 10 mg 10 mg, Intravenous, Every 2 hour PRN, SBP>180. Hold for HR<60. Use first, Starting on Wed01/06/23 at 0757 naloxone (NARCAN) injection 0.1 mg(Linked Group 3) 0.1 mg, Intravenous, As needed, opioid reversal, For respiratory rate less than or equal to 8 per minute., Starting on Wed01/06/23 at 0601, Mix nalOXone (NARCAN) 0.4 mg (1ml) with 9 mL of Normal Saline to total 10 mL. Administer 0.1 mg (2.5ml) IV Push every 2 minutes until respiratory rate is 10 or greater. naloxone (NARCAN) injection 0.4 mg(Linked Group 3) 0.4 mg, Intravenous, As needed, opioid reversal, patient is pulseless, breathless, and unresponsive, Starting on Wed01/06/23 at 0601, Call a code first, then administer naloxone dose undiluted IV Push over 30 seconds. ondansetron (ZOFRAN) injection 4 mg 4 mg, Intravenous, Every 6 hours PRN, nausea, vomiting, Starting on Wed01/06/23 at 0601 1824 (Given - Provider: Lauren Acosta, TAI) polyethylene glycol (MIRALAX) powder 17 g 17 g, Oral, Daily PRN, constipation, Starting on Wed01/10/23 at 1830 1823 (Given - Provider: Lauren Acosta RN) senna (SENOKOT) tablet 8.6 mg 8.6 mg (1 tablet), Oral, Daily PRN, constipation, Starting on Wed01/10/23 at 1832, For 1 dose sodium chloride (PF) (NS) flush 5 mL(Linked Group 1) 5 mL, Intravenous, As needed, line care, Starting on Wed01/06/23 at 0601 sodium chloride 0.9% (NS)(Linked Group 1) 0-150 mL/hr, Intravenous, As needed, To flush line after IV infusions when no maintenance IV ordered or a compatibility issue. Infuse 20ml at the same rate as the secondary infusion, Starting on Wed01/06/23 at 0601, Run as Primary IV. NOT intended for KVO. Linked Groups Order Group 1: Saline lock IV (CANCELED) Routine, Continuous, Starting on Wed01/06/23 at 0602, Until Specified And sodium chloride (PF) (NS) flush 5 mLJump to med 5 mL, Intravenous, As needed, line care, Starting on Wed01/06/23 at 0601 And sodium chloride (PF) (NS) flush 5 mLJump to med 5 mL, Intravenous, Every 8 hours scheduled, First dose on Wed01/06/23 at 0700
Saline lock
And sodium chloride 0.9% (NS)Jump to med 0-150 mL/hr, Intravenous, As needed, To flush line after IV infusions when no maintenance IV ordered or a compatibility issue. Infuse 20ml at the same rate as the secondary infusion, Starting on Wed01/06/23 at 0601
Run as Primary IV. NOT intended for KVO.
Group 2: acetaminophen (TYLENOL) tablet 650 mgJump to med 650 mg, Oral, Every 4 hours PRN, mild pain, fever 99.5 F or greater, Starting on Wed01/06/23 at 0601
[] Use oral route first, if tolerated.
Or acetaminophen (TYLENOL) suppository 650 mgJump to med 650 mg, Rectal, Every 4 hours PRN, mild pain, fever 99.5 F or greater, Starting on Wed01/06/23 at 0601
[] Use oral route first, if tolerated.
Or acetaminophen (TYLENOL) solution 650 mgJump to med 650 mg, Tube, Every 4 hours PRN, mild pain, fever 99.5 F or greater, Starting on Wed01/06/23 at 0601
[] Use oral route first, if tolerated.
Group 3: naloxone (NARCAN) injection 0.1 mgJump to med 0.1 mg, Intravenous, As needed, opioid reversal, For respiratory rate less than or equal to 8 per minute., Starting on Wed01/06/23 at 0601
Mix nalOXone (NARCAN) 0.4 mg (1ml) with 9 mL of Normal Saline to total 10 mL. Administer 0.1 mg (2.5ml) IV Push every 2 minutes until respiratory rate is 10 or greater.
And Notify physician (CANCELED) STAT, Until discontinued, Starting on Wed01/06/23 at 0602, Until Specified
Respiratory rate less than: 8
For respiratory rate less than or equal to 8, notify physician and/or appropriate staff for additional orders. And naloxone (NARCAN) injection 0.4 mgJump to med 0.4 mg, Intravenous, As needed, opioid reversal, patient is pulseless, breathless, and unresponsive, Starting on Wed01/06/23 at 0601
Call a code first, then administer naloxone dose undiluted IV Push over 30 seconds.
Scheduled Medication Order 01/23/2023 01/24/2023 01/25/2023 amLODIPine (NORVASC) tablet 10 mg 10 mg, Oral, Daily, First dose (after last modification) on 01/16/23 at 0900 0825 (Given - Provider: Drake Martínez RN) 916 (Given - Provider: Drake Martínez RN) 804 (Given - Provider: Kiana Rodriguez, TAI) apixaban (ELIQUIS) tablet 5 mg 5 mg, Oral, 2 times daily, First dose (after last modification) on Wed01/15/23 at 2000, Indication: Atrial Fibrillation 824 (Given - Provider: Drake Martínez RN)2014 (Given - Provider: Ludin Stock RN) 916 (Given - Provider: Drake Martínez RN)2131 (Given - Provider: Diana Contreras RN) 804 (Given - Provider: Kiana Rodriguez, TAI) atorvastatin (LIPITOR) tablet 40 mg 40 mg, Oral, Nightly, First dose (after last modification) on Wed01/15/23 at 2100 2014 (Given - Provider: Ludin Stock RN) 2131 (Given - Provider: Diana Contreras, RN) cyanocobalamin (B-12) tablet 1,000 mcg 1,000 mcg, Oral, Daily, First dose (after last modification) on Wed01/16/23 at 0900 0825 (Given - Provider: Drake Martínez RN) 916 (Given - Provider: Drake Martínez RN) 804 (Given - Provider: Kiana Rodriguez RN) dofetilide (TIKOSYN) capsule 250 mcg 250 mcg, Oral, Every 12 hours scheduled, First dose (after last modification) on Wed01/15/23 at 2100, If QTc is greater than 500 msec or CrCl is less than 20 mL/min, hold dofetilide and contact prescriber, unless otherwise directed. Provide Tikosyn Education Guide with first dose (see link). Ensure doses are at least 10 hours apart, Select One: Continuation of Ongoing Treatment, Ordering restricted to cardiology prescriber: OTHER, Provide rationale for ordering outside of [facility] approved prescriber restrictions: Home medication for patient that was admitted to [facility] 08 (Given - Provider: Drake Martínez RN)2014 (Given - Provider: Ludin Stock RN) 916 (Given - Provider: Drake Martínez RN)2131 (Given - Provider: Diana Contreras RN) 0805 (Given - Provider: Kiana Rodriguez, TAI) FLUoxetine (PROZAC) capsule 20 mg 20 mg, Oral, Daily, First dose on Wed01/15/23 at 1800, Situational depression 0825 (Given - Provider: Drake Martínez RN) 0917 (Given - Provider: Drake Martínez RN) 0805 (Given - Provider: Kiana Rodriguez, TAI) insulin lispro (AdmeLOG,HumaLOG) injection 0-15 Units 0-15 Units, Subcutaneous, At bedtime, First dose (after last modification) on Wed01/15/23 at 2100, Type 2 DM, For Nightly Insulin Dose Coverage, use: CORRECTIVE (Only) for BG greater than 300, Nightly CORRECTIVE Dose Method: Specific Corrective Dose, Nightly Specific CORRECTIVE dose (units of insulin): 2, For Downtime Calculator, use: Insulin SC NIGHTtime 2100 (Not Given - Provider: Ludin Stock RN - Reason: Order parameters not met) 2130 (Not Given - Provider: Diana Contreras RN - Reason: Order parameters not met) insulin lispro (AdmeLOG,HumaLOG) injection 0-30 Units 0-30 Units, Subcutaneous, 3 times daily before meals, First dose (after last modification) on Wed01/15/23 at 1700, Type 2 DM Dose should be given 10-15 minutes before a meal. If poor oral intake, nausea or blood glucose value < 80 before meal, give of the dose (rounded up to nearest unit) immediately after meal completed. If patient skipping meal, hold base prandial dose and continue to use corrective insulin as ordered. Once diet resumed, total base prandial + corrective doses may be given., Prandial Insulin Dosing Method: NO Prandial Dose - Corrective Scale ONLY, Corrective Insulin Regimen (select desired scale to cover BG result): Normal Sensitivity Scale, For Downtime Calculator, use: Insulin SC MEALtime PREprandial 0826 (Given - Provider: Drake Martínez RN)1238 (Given - Provider: Drake Martínez, TAI)1630 (Not Given - Provider: Drake Martínez RN - Reason: Order parameters not met) 0730 (Not Given - Provider: Drake Martínez RN - Reason: Order parameters not met)1232 (Given - Provider: Drake Martínez RN)1630 (Not Given - Provider: Drake Martínez RN - Reason: Order parameters not met) 0809 (Not Given - Provider: Kiana Rodriguez RN - Reason: Order parameters not met)1211 (Given - Provider: Kiana Rodriguez RN) levothyroxine (SYNTHROID, LEVOTHROID) tablet 175 mcg 175 mcg, Oral, Daily, First dose (after last modification) on 01/16/23 at 0600, For patients on continuous tube feed: Hold TF from 1 hr before until 1 hr after each dose. TF rate may need adjustment to meet caloric needs. 0525 (Given - Provider: Ludin Stock RN) 0623 (Given - Provider: Ludin Stock RN) 0547 (Given - Provider: Marissa Glasgow RN) lisinopriL (PRINIVIL,ZESTRIL) tablet 10 mg 10 mg, Oral, Daily with lunch, First dose (after last modification) on 01/16/23 at 1200 1238 (Given - Provider: Drake Martínez RN) 1232 (Given - Provider: Drake Martínez RN) 1211 (Given - Provider: Kiana Rodriguez, TAI) magnesium oxide (MAG-OX) tablet 400 mg 400 mg, Oral, Daily, First dose (after last modification) on 01/16/23 at 0900 0825 (Given - Provider: Drake Martínez RN) 0917 (Given - Provider: Drake Martínez RN) 0809 (Given - Provider: Kiana Rodriguez RN) melatonin Tab 5 mg 5 mg, Oral, Nightly, First dose (after last modification) on Wed01/15/23 at 2100, If still awake in 1 hour proceed to trazodone 2013 (Given - Provider: Ludin Stock RN) 2131 (Given - Provider: Diana Contreras RN) multivitamin (THERAGRAN) per tablet 1 tablet 1 tablet, Oral, Daily, First dose (after last modification) on 01/16/23 at 0900 0825 (Given - Provider: Drake Martínez RN) 0917 (Given - Provider: Drake Martínez RN) 0805 (Given - Provider: Kiana Rodriguez RN) pantoprazole (PROTONIX) EC tablet 40 mg 40 mg, Oral, Daily, First dose (after last modification) on Wed01/16/23 at 0900, DO NOT CRUSH OR CHEW. 0825 (Given - Provider: Drake Martínez RN) 09 (Given - Provider: Drake Martínez RN) 0809 (Given - Provider: Kiana Rodriguez, TAI) polyethylene glycol (MIRALAX) powder 17 g 17 g, Oral, Daily, First dose (after last modification) on Wed01/16/23 at 0900 0825 (Not Given - Provider: Drake Martínez RN - Reason: Patient/family refused) 09 (Given - Provider: Drake Martínez RN) 0805 (Given - Provider: Kiana Rodriguez RN) senna-docusate (SENNA-S) 8.6-50 mg per tablet 1 tablet 1 tablet, Oral, 2 times daily, First dose (after last modification) on Wed01/15/23 at 2100, NOT for abdominal surgery patients. Hold for loose stools. Do Not Crush or Chew if administering orally due to bitter taste. May be crushed if given via tube. 0825 (Not Given - Provider: Drake Martínez RN - Reason: Patient/family refused)2014 (Given - Provider: Ludin Stock RN) 916 (Given - Provider: Drake Martínez RN)2131 (Given - Provider: Diana Contreras RN) 08 (Given - Provider: Kiana Rodriguez, TAI) sodium chloride (PF) (NS) flush 5 mL(Linked Group 1) 5 mL, Intravenous, Every 8 hours scheduled, First dose (after last modification) on Wed01/15/23 at 2200, Saline lock 0526 (Not Given - Provider: Ludin Stock RN - Reason: Order parameters not met)1400 (Canceled Entry - Provider: Drake Martínez RN - Comment: no IV access)2200 (Not Given - Provider: Ludin Stock RN - Reason: Order parameters not met) 0600 (Not Given - Provider: Ludin Stock RN - Reason: Order parameters not met)1400 (Canceled Entry - Provider: Drake Martínez RN - Comment: No IV access)2200 (Not Given - Provider: Diana Contreras RN - Reason: Loss of IV access) 0600 (Not Given - Provider: Marissa Glasgow RN - Reason: Loss of IV access) tamsulosin (FLOMAX) 24 hr capsule 0.4 mg 0.4 mg, Oral, After evening meal, First dose (after last modification) on Wed01/15/23 at 1800, DO NOT CRUSH OR CHEW. Give 30 minutes after the same meal daily. Monitor for orthostasis due to potential risk of syncope. 1753 (Given - Provider: Drake Martínez RN) 1802 (Given - Provider: Drake Martínez RN) PRN Medication Order 01/23/2023 01/24/2023 01/25/2023 acetaminophen (TYLENOL) tablet 975 mg 975 mg, Oral, Every 6 hours PRN, mild pain, fever 100.4 F or greater, headaches, Starting on Wed01/15/23 at 1606 albuterol (PROVENTIL) 2.5 mg /3 mL (0.083 %) nebulizer solution 2.5 mg 2.5 mg, Nebulization, Every 4 hours PRN (RT), wheezing, shortness of breath, Starting on Wed01/15/23 at 1604 aluminum-magnesium hydroxide-simethicone (MAALOX PLUS) 200-200-20 mg/5 mL suspension 30 mL 30 mL, Oral, 3 times daily PRN, heartburn, Starting on Wed01/15/23 at 1606 bisacodyL (DULCOLAX) suppository 10 mg 10 mg, Rectal, Daily PRN, constipation, 2nd line for constipation, if no Bowel movement within 48 hours, Starting on Wed01/15/23 at 1606 hydrALAZINE (APRESOLINE) tablet 25 mg 25 mg, Oral, Every 8 hours PRN, other, Systolic BP greater than 180, Starting on Wed01/15/23 at 1606, Hold if heart rate is greater than 95 lidocaine HCL (UROJET/GLYDO) 2 % applicator 1 application. 1 application., Topical, As needed, for isc, Starting on Wed01/15/23 at 1606, as needed for mild pain/discomfort associated with digital rectal stimulation, up to a maximum of 4 doses per day ondansetron (ZOFRAN-ODT) disintegrating tablet 4 mg 4 mg, Oral, Every 6 hours PRN, nausea, vomiting, Starting on Wed01/15/23 at 1606, Orally disintegrating tablet: Open blister pack and place tablet on the tongue; tablet is formulated to dissolve on the tongue without water; do not split tablet. Formulation requires tablet remain in sealed package until immediately prior to dose being administered. polyethylene glycol (MIRALAX) powder 17 g 17 g, Oral, 2 times daily PRN, constipation, 1st line for constipation, if no Bowel movement within 24 hours, Starting on Wed01/15/23 at 1606 sodium chloride (PF) (NS) flush 5 mL(Linked Group 1) 5 mL, Intravenous, As needed, line care, Starting on Wed01/15/23 at 1604 sodium chloride 0.9% (NS)(Linked Group 1) 0-150 mL/hr, Intravenous, As needed, To flush line after IV infusions when no maintenance IV ordered or a compatibility issue. Infuse 20ml at the same rate as the secondary infusion, Starting on Wed01/15/23 at 1604, Run as Primary IV. NOT intended for KVO. traZODone (DESYREL) tablet 50 mg 50 mg, Oral, Nightly PRN, sleep, Starting on Wed01/15/23 at 1606, To be administered 1 hour after melatonin if still awake, May repeat in 20 minutes if still awake Linked Groups Order Group 1: Saline lock IV (CANCELED) Routine, Continuous, Starting on Wed01/15/23 at 1605, Until Specified And sodium chloride (PF) (NS) flush 5 mLJump to med 5 mL, Intravenous, As needed, line care, Starting on Wed01/15/23 at 1604 And sodium chloride (PF) (NS) flush 5 mLJump to med 5 mL, Intravenous, Every 8 hours scheduled, First dose (after last modification) on Wed01/15/23 at 2200
Saline lock
And sodium chloride 0.9% (NS)Jump to med 0-150 mL/hr, Intravenous, As needed, To flush line after IV infusions when no maintenance IV ordered or a compatibility issue. Infuse 20ml at the same rate as the secondary infusion, Starting on Wed01/15/23 at 1604
Run as Primary IV. NOT intended for KVO.
Goals (unrecognized section and content) Goals may be documented in a n alternate sectionGoals may be documented in an alternate sectionGoals may be documented in an alternate sectionGoals may be documented in an alternate sectionGoals may be documented in an alternate sectionGoals may be documented in an alternate section FOR RECORDS PERTAINING TO PATIENTS WHO ARE OR HAVE BEEN ENROLLED IN A CHEMICAL DEPENDENCY/SUBSTANCEABUSE PROGRAM, SOME INFORMATION MAY BE OMITTED. This clinical summary was aggregated from multiple sources. Caution should be exercised in using it in the provision of clinical care. This summary normalizes information from multiple sources, and as a consequence, information in this document may materially change the coding, format and clinical context of patient data. In addition, data may be omitted in some cases. CLINICAL DECISIONS SHOULD BE BASED ON THE PRIMARY CLINICAL RECORDS. [facility]. provides no warranty or guarantee of the accuracy or completeness of information in this document.
[2024-08-13 12:45] VITALS: BMI 25.7
--- NOTE | 2024-08-13 12:54 | HP.PCM_ITS ---
HPI - General General Date of Admission: 08/13/24 Date of Service: 08/14/24 Chief Complaint: Here for rehabilitation. HPI Narrative DAMIAN BERMUDEZ, is a 83 Male who presents with followin08/07/2024 Admit [facility]. Dysarthria, facial droop, dysphagia. MRI brain right superior cerebellar stroke, history of atrial fibrillation. Stopped Eliquis 1 month ago 2/2 expense. CTA head/neck, ST for dysphagia. Heparin/coumadin for atrial fibrillation 2/2 cost. PT/OT/ST. 08/09/2024 Aspirin, Heparin, coumadin for atrial fibrillation/stroke. Continue Lipitor 40mg daily. PT/OT/ST. A1c 6.0, on Metformin for Diabetes Mellitus II. 08/13/2024 Admit to TCU with debility, here for rehabilitation, strengthening, prior to discharge home with . [facility] Medical History (Updated 08/13/24 @ 13:[address] Tanmay Cruz MD) Low calcium levels Hearing problem Cataract GERD (gastroesophageal reflux disease) Home Medications ?Medication ?Instructions ?Recorded ?Last Taken ?Type magoxide PO 02/26/23 Unknown History mecobalamin (vitamin B12) 1,000 1,000 mcg sublingual D AILY VITAMIN 02/26/23 Unknown History mcg disintegrating B12 tablet,sublingual multivitamin (Daily Multi-Vitamin 1 tab PO DAILY VITAM IN 02/26/23 Unknown History tablet) oxybutynin chloride 10 mg 10 mg PO QDAY BLADDER Unknown History tablet,extended release 24 hr apixaban 5 mg tablet (Eliquis) 5 mg PO BID #180 TABLET S 12/27/23 Unknown Rx pantoprazole 40 mg tablet,delayed 40 mg PO DAILY ACID REFLUX #90 05/22/24 Unknown Rx release TABLETS fluoxetine 40 mg capsule 40 mg PO DAILY MOOD #90 caps 05/24/24 Unknown Rx metformin 500 mg tablet,extended 500 mg PO BID DIABETE S 3 months 05/24/24 Unknown Rx release 24 hr #180 tabs rosuvastatin 20 mg tablet 20 mg PO QDAY #90 tabs 05/24 Unknown Rx tamsulosin 0.4 mg capsule 0.8 mg (2 x 0.4 mg) PO DAILY 05/24/24 Unknown Rx PROSTATE #180 caps levothyroxine 175 mcg tablet 175 mcg PO DAILY THYROID #90 tabs 06/20/24 Unknown Rx amlodipine 5 mg tablet 10 mg PO DAILY bp 08/13/24 U nknown History aspirin 81 mg tablet,delayed 81 mg PO DAILY HEART HEAL TH 08/13/24 Unknown History release (Ecotrin Low Strength) atorvastatin 40 mg tablet 40 mg PO DAILY CHOLESTEROL 0 08/13/24 Unknown History furosemide 20 mg tablet 20 mg PO DAILY PRN edema Unknown History lisinopril 10 mg tablet 20 mg PO DAILY bp 08/13/24 U nknown History warfarin 2 mg tablet (Jantoven) 2 mg PO DAILY AFIB Unknown History Allergy/AdvReac Type Severity Reaction Status Date / Time No Known Allergies Allergy Unverified 05/24/24 13:21 Family History Father Myocardial infarction Diabetes Mother Hypertension Myocardial infarction Brother Suicide Brother Diabetes Surgical History History of left heart catheterization H/O hernia repair Hx of chest tube placement H/O aortic valve replacement History of cardioversion Hx of CABG Social History household members: spouse current occupational status: retired 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, 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 [employer] Smoking Status: Never smoker Electronic Cigarette Use: not used how long ago did patient quit smoking: smoked an occasional cigar more than 50 years ago alcohol intake: never substance use type: does not use what type of physical activity do you participate in: none do you feel safe at home: Yes ROS Constitutional Constitutional: Reports weakness; Denies chills, fever(s) or weight gain ENT HEENT: Denies headache(s), nasal congestion or nasal discharge Cardiovascular Cardiovascular: Denies chest pain or palpitations Respiratory/Chest Respiratory/Chest: Denies cough, excessive phlegm production or shortness of breath with exertion Gastrointestinal Gastrointestinal: Denies abdominal pain, nausea or vomiting Genitourinary Genitourinary: Denies dysuria Musculoskeletal
--- NOTE | 2024-08-13 12:54 | PCM.HP.STD ---
HPI - General General Date of Admission: 08/13/24 Date of Service: 08/14/24 Chief Complaint: Here for rehabilitation. HPI Narrative DAMIAN BERMUDEZ, is a 83 Male who presents with followin08/07/2024 Admit [facility]. Dysarthria, facial droop, dysphagia. MRI brain right superior cerebellar stroke, history of atrial fibrillation. Stopped Eliquis 1 month ago 2/2 expense. CTA head/neck, ST for dysphagia. Heparin/coumadin for atrial fibrillation 2/2 cost. PT/OT/ST. 08/09/2024 Aspirin, Heparin, coumadin for atrial fibrillation/stroke. Continue Lipitor 40mg daily. PT/OT/ST. A1c 6.0, on Metformin for Diabetes Mellitus II. 08/13/2024 Admit to TCU with debility, here for rehabilitation, strengthening, prior to discharge home with . [facility] Medical History (Updated 08/13/24 @ 13:[address] Tanmay Cruz MD) Low calcium levels Hearing problem Cataract GERD (gastroesophageal reflux disease) Home Medications ?Medication ?Instructions ?Recorded ?Last Taken ?Type magoxide PO 02/26/23 Unknown History mecobalamin (vitamin B12) 1,000 1,000 mcg sublingual DAILY VITAMIN 02/26/23 Unknown History mcg disintegrating B12 tablet,sublingual multivitamin (Daily Multi-Vitamin 1 tab PO DAILY VITAMIN 02/26/23 Unknown History tablet) oxybutynin chloride 10 mg 10 mg PO QDAY BLADDER 11/24/23 Unknown History tablet,extended release 24 hr apixaban 5 mg tablet (Eliquis) 5 mg PO BID #180 TABLETS 12/27/23 Unknown Rx pantoprazole 40 mg tablet,delayed 40 mg PO DAILY ACID REFLUX #90 05/22/24 Unknown Rx release TABLETS fluoxetine 40 mg capsule 40 mg PO DAILY MOOD #90 caps 05/24/24 Unknown Rx metformin 500 mg tablet,extended 500 mg PO BID DIABETES 3 months 05/24/24 Unknown Rx release 24 hr #180 tabs rosuvastatin 20 mg tablet 20 mg PO QDAY #90 tabs 05/24/24 Unknown Rx tamsulosin 0.4 mg capsule 0.8 mg (2 x 0.4 mg) PO DAILY 05/24/24 Unknown Rx PROSTATE #180 caps levothyroxine 175 mcg tablet 175 mcg PO DAILY THYROID #90 tabs 06/20/24 Unknown Rx amlodipine 5 mg tablet 10 mg PO DAILY bp 08/13/24 Unknown History aspirin 81 mg tablet,delayed 81 mg PO DAILY HEART HEALTH 08/13/24 Unknown History release (Ecotrin Low Strength) atorvastatin 40 mg tablet 40 mg PO DAILY CHOLESTEROL 08/13/24 Unknown History furosemide 20 mg tablet 20 mg PO DAILY PRN edema 08/13/24 Unknown History lisinopril 10 mg tablet 20 mg PO DAILY bp 08/13/24 Unknown History warfarin 2 mg tablet (Jantoven) 2 mg PO DAILY AFIB 08/13/24 Unknown History Allergy/AdvReac Type Severity Reaction Status Date / Time No Known Allergies Allergy Unverified 05/24/24 13:21 Family History Father Myocardial infarction Diabetes Mother Hypertension Myocardial infarction Brother Suicide Brother Diabetes Surgical History History of left heart catheterization H/O hernia repair Hx of chest tube placement H/O aortic valve replacement History of cardioversion Hx of CABG Social History household members: spouse current occupational status: retired 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, [employer] Smoking Status: Never smoker Electronic Cigarette Use: not used how long ago did patient quit smoking: smoked an occasional cigar more than 50 years ago alcohol intake: never substance use type: does not use what type of physical activity do you participate in: none do you feel safe at home: Yes ROS Constitutional Constitutional: Reports weakness; Denies chills, fever(s) or weight gain ENT HEENT: Denies headache(s), nasal congestion or nasal discharge Cardiovascular Cardiovascular: Denies chest pain or palpitations Respiratory/Chest Respiratory/Chest: Denies cough, excessive phlegm production or shortness of breath with exertion Gastrointestinal Gastrointestinal: Denies abdominal pain, nausea or vomiting Genitourinary Genitourinary: Denies dysuria Musculoskeletal Musculoskeletal: Denies joint pain or joint swelling Integumentary Integumentary: Denies rash or wounds Neurologic Neurologic: Denies focal weakness, numbness or tingling Psychiatric Psychiatric: Denies anxiety, auditory hallucinations, depression, homicidal ideation or suicidal ideation Vital Signs Vital Signs Vital Signs: 06/29/25 12:20 Temperature 97.3 F L Temperature Source Temporal Pulse Rate 46 L Respiratory Rate 16 Blood Pressure 144/70 H Blood Pressure Mean 94 Blood Pressure Source Monitor Blood Pressure Position Sitting Blood Pressure Location Right Arm Pulse Ox 97 Oxygen Delivery Method Room Air Weight Weight: 86.137 kg Body Mass Index (BMI) 25.7 Physical Exam Const alert General Appearance: cooperative HEENT normocephalic Eyes PERRL and EOMs intact bilaterally Neck supple, no JVD and no carotid bruits Resp normal respiratory effort, normal air movement and clear to auscultation bilaterally Cardio regular rate and regular rhythm GI normal to inspection, nondistended, normoactive bowel sounds, non-tender and non-distended Extremity normal capillary refill General Extremity: Negative for edema Skin no rashes or lesions noted General Skin Exam: no breakdown Neuro moves all extremities Psych affect normal Appearance: appropriate Results Lab / Micro Data 08/14/24 05:03 08/14/24 05:03 Assessment & Plan Assessment/Plan (1) Debility: (2) Stroke: (3) Atrial fibrillation: (4) B12 deficiency: (5) Overactive bladder: (6) Hypothyroidism: (7) GERD (gastroesophageal reflux disease): (8) Essential hypertension: (9) Depression: QUALIFIERS: Active/Remission status: remission status unspecified Depression Type: major depressive disorder Major depression recurrence: unspecified whether recurrent Qualified Code(s): F32.9 - Major depressive disorder, single episode, unspecified (10) Type 2 diabetes mellitus with hyperglycemia: (11) Hyperlipidemia, unspecified: (12) BPH (benign prostatic hyperplasia): QUALIFIERS: Lower urinary tract symptom presence: symptoms absent Qualified Code(s): N40.0 - Benign prostatic hyperplasia without lower urinary tract symptoms (13) CAD (coronary artery disease): QUALIFIERS: Associated angina: without angina Coronary Disease-Associated Artery/Lesion type: bypass graft [place] vs. transplanted heart: eagle heart Qualified Code(s): I25.810 - Atherosclerosis of coronary artery bypass graft(s) without angina pectoris (14) Obstructive sleep apnea: PLAN: Plan 83 year old male with below past medical history hospitalized for stroke (right superior cerebellar), admitted to TCU with debility, here for rehabilitation, strengthening, prior to discharge home with . Debility - PT/OT/ST. Pain - Tylenol 1000mg q6 prn pain (1-10). Bowel - senna/colace 1 tablet bid, Magnesium citrate 300mL daily prn. Adult immunization - Administer pneumonia vaccine, covid vaccine, flu vaccine as appropriate. DVT prophylaxis - Warfarin. Hypertension - Lisinopril 20mg daily, Amlodipine 10mg daily. Stroke - Aspirin 81mg daily, Warfarin 2mg, defer to Neurology whether Aspirin can be stopped. Atrial fibrillation - Aspirin 81mg daily, Warfarin 2mgs, defer to Neurology whether Aspirin can be stopped. Hyperlipidemia - Atorvastatin 40mg qhs. Chronic HFpEF - Lisinopril 20mg daily, Furosemide 20mg daily prn. Hypothyroidism - Levothyroxine 175mcg daily. Diabetes Mellitus II - Metformin XR 500mg bidcm. Nutrition - MVI 1 tablet daily. GERD - Pantoprazole 40mg daily. BPH - Tamsulosin 0.8mg daily. Overactive bladder - Tolterodine 2mg daily. The following psychotropic medication was present on admission: Fluoxetine 40mg daily. Psychotropic medication therapy is indicated for a diagnosis of: Major depression. Based on my clinical evaluation, continuation of the medication is necessary at this time. Gradual dose reduction plan (select one): ____ GDR will be attempted. Will monitor patient symptoms and behaviors in response to GDR. __x__ GRD contraindicated. 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
[2024-08-13 13:28] VITALS: PULSE 55; RESP 16; O2SAT 96
--- NOTE | 2024-08-13 15:05 | NURSING ---
states pt does not use BIPAP at home, he does not like anything on his face.
[2024-08-13] MEDS: Jantoven 2 MG Tablet PO (17:00)
[2024-08-13] MEDS: metFORMIN (XR) 500 MG Tablet PO (17:00)
[2024-08-13] MEDS: Senna/Docusate Sodium 1 Tablet PO (20:43)
[2024-08-14 04:23] VITALS: PULSE 63; O2SAT 95
[2024-08-14 06:05] LABS: Hematocrit 38.0 % (40-54); Hemoglobin 12.9 g/dL (13.0-16.5); Immature Granulocytes Count 0.040 X10^3/uL (0.0-0.0); Mean Corp Hgb Conc 33.9 g/dL (32-36); Mean Corpuscular Volume 95.0 fL (80-94); Mean Platelet Vol. 9.9 fl (6.2-12.0); NRBC Flagged by Analyzer 0 % (0-5); Platelet Count 127 K/mm3 (150-450); RBC Distribution Width CV 12.9 % (11.6-14.6); RBC Distribution Width SD 44.4 fl (35.1-43.9); Red Blood Count 4.00 M/mm3 (4.6-6.2); White Blood Count 6.0 K/mm3 (4.4-11.0)
[2024-08-14 06:06] LABS: Prothrombin Time (Protime)PT. 23.1 SECONDS (11.7-14.9)
[2024-08-14 06:17] LABS: Anion Gap 9 (5-15); BUN 14 mg/dL (4-19); BUN/Creat Ratio 12.8 RATIO (10-20); Calcium,Total 9.4 mg/dL (7.6-11.0); Carbon Dioxide 26.5 mmol/L (21.0-32.0); Chloride 105 mmol/L (98-108); Estimated Creatinine Clearance 56.32 ml/min (50-250); Glucose 132 mg/dL (70-99); Potassium 4.7 mmol/L (3.3-5.1)
--- NOTE | 2024-08-14 08:50 | NURSING ---
Called PCP, they only have one pneumovax 23 on file from 2017. Asked resident if he'd want another if due for one, he declined. Also offered covid vaccine and VIS provided,he declines.
[2024-08-14 08:56] VITALS: BP 118/62; PULSE 71; RESP 18; TEMP 36.1; O2SAT 100
[2024-08-14] MEDS: Aspirin E.C. 81 MG Tablet PO (08:58)
[2024-08-14] MEDS: metFORMIN (XR) 500 MG Tablet PO ×2 (08:58→16:44)
[2024-08-14] MEDS: Senna/Docusate Sodium 1 Tablet PO ×2 (09:01→20:32)
[2024-08-14] MEDS: Tuberculin,Purif.prot.deriv. 50 TU/ML Vial 0.1 ML ID (09:24)
--- NOTE | 2024-08-14 12:16 | NURSING ---
Home Health Specialist Note; Activity Asset: Nevaeh Brown needs reminded of weekly activities, he did state he enjoys watching sports. He could not remember much during his assessment. He will have 1.1 room visits during the week to see if he needs anything. Staff will drop off the daily news paper and chronicle for him to read and encourage social activities or just sitting in the day room for a few hours, staff will respect werner right to say no.
--- NOTE | 2024-08-14 14:39 | CASEMGMT ---
Social Work SW completed chart review and pt is a poor historian. Therapy evals uncertain pts PLOF and home set up. SW left VM with to complete initial assessment. Lizeth Negrete MEDIA CONSULTANT CHIEF OF STAFF
--- NOTE | 2024-08-14 15:41 | NURSING ---
present, update given on patient per request. no changes.
--- NOTE | 2024-08-14 16:11 | CHAPLAIN ---
Type of Pastoral Visit _x__ Initial Visit ___ Follow-up Visit ___ On-call Visit ___ General Patient Visit ___ Spiritual Assessment ___ Family Conference ___ Bereavement ___ Rapid Response ___ Code Blue ___ Other (describe below) Pastoral Care Referral From _x__ Patient ___ Family ___ Nurse ___ Physician ___ Shipping And Receiving Supervisor ___ Coffee Weigher ___ Other (describe below) Sacrament/Intervention ___ Active listening ___ Anointing ___ Catholic ___ Bereavement ___ Communion ___ Dee Dee exploration ___ ___ Life review ___ Prayer ___ Reconciliation ___ Sacrament of Sick _x__ Supportive presence ___ Wedding ___ Other (describe below) Pastoral Comments patient and spouse are in the room; pt is lying down in bed and is awake; pt answers each question appropriately but has some limitations of speech; involved in questioning; family members live in the area; spouse answers that they are not members of any dee dee community and limits that offer of support
[2024-08-14] MEDS: Jantoven 2 MG Tablet PO (16:43)
[2024-08-14] MEDS: Ensure Plus High Protein 120 ML LIQUID PO (16:53)
--- NOTE | 2024-08-14 16:56 | NURSING ---
in room at time of med pass,. pt was d/t receive covid vaccine, she states she does not want pt to get any more covid vaccines.
--- NOTE | 2024-08-15 07:46 | PHA.CONS_ITS ---
Documented by User: Juliana Sullivan 08/15/24 08:03 TCU RX Drug Regimen Review Subjective/Objective Subjective/Objective Subjective: TCU Admission. 83 YOM presented to outside hospital with dysarthria, facial droop, dysphagia. Hospitalized for stroke (right superior cerebellar). Admitted to TCU with debility for strengthening and rehabilitation. Objective: Allergies No Known Allergies Allergy (Unverified 05/24/24 13:21) Current Medications Generic Name Dose Route Start Last Admin Trade Name Freq PRN Reason Stop Dose Admin Acetaminophen 1,000 mg 08/13/24 13:16 Acetaminophen 500 Mg Tablet PO Q6H PRN PRN Pain Score 1-10 Amlodipine Besylate 10 mg 08/14/24 10:00 08/14/24 08:59 Amlodipine 10 Mg Tablet PO 10 mg DAILY GENIE Administration Protocol Aspirin 81 mg 08/14/24 08:00 08/14/24 08:58 Aspirin E.C. 81 Mg Tablet PO 81 mg BREAKFAST GENIE Administration Atorvastatin Calcium 40 mg 08/13/24 22:00 08/14/24 20:32 Atorvastatin Calcium 40 Mg Tablet PO 40 mg QHS GENIE Administration Fluoxetine HCl 40 mg 08/14/24 10:00 08/14/24 09:00 Fluoxetine Hcl 40 Mg Capsule PO 40 mg DAILY GENIE Administration Furosemide 20 mg 08/13/24 12:34 Furosemide 20 Mg Tablet PO DAILY PRN edema Protocol Sodium Chloride 250 mls @ 15 mls/hr 08/13/24 12:46 IV .[id number] PRN Saline Flush Sodium Chloride 250 mls @ 15 mls/hr 08/13/24 12:46 IV .[id number] PRN Additional IVPB Infusion Levothyroxine Sodium 175 mcg 08/14/24 06:00 08/15/24 06:23 Levothyroxine 175 Mcg Tablet PO 175 mcg DAILY@0600 GENIE Administration Lisinopril 20 mg 08/14/24 10:00 08/14/24 09:02 Lisinopril 20 Mg Tablet PO 20 mg DAILY GENIE Administration Protocol Magnesium Citrate 300 ml 08/13/24 12:38 Magnesium Citrate 300 Ml PO X1 PRN Constipation Metformin HCl 500 mg 08/13/24 17:00 08/14/24 16:44 Metformin (Xr) 500 Mg Tablet PO 500 mg BIDCM GENIE Administration Multivitamins 1 tablet 08/14/24 08:00 08/14/24 08:59 Multivitamins,Therapeutic Tablet PO 1 tablet DAILYCM GENIE Administration Nutritional Formula (Lactose Free) 120 ml 08/14/24 17:45 08/14/24 16:53 Ensure Plus High Protein 120 Ml Liquid PO 120 ml TIDCM GENIE Administration Pantoprazole Sodium 40 mg 08/14/24 10:00 08/14/24 09:00 Pantoprazole Sodium 40 Mg Tablet PO 40 mg DAILY GENIE Administration Senna/Docusate Sodium 1 tablet 08/13/24 22:00 08/14/24 20:32 Senna/Docusate Sodium 1 Tablet PO 1 tablet BID GENIE Administration Sodium Chloride 10 - 40 ml 08/13/24 12:46 0.9% Saline Lock 10 Ml Syringe IV UD PRN SALINE FLUSH Tamsulosin HCl 0.8 mg 08/14/24 08:30 08/14/24 08:59 Tamsulosin Hcl 0.4 Mg Capsule PO 0.8 mg DAILY@0830 GENIE Administration Tolterodine Tartrate 2 mg 08/14/24 10:00 08/14/24 08:59 Tolterodine Tartrate 2 Mg Cap.Sa PO 2 mg DAILY GENIE Administration Tuberculin PPD 0.1 ml 08/21/24 10:00 Tuberculin,Purif.Prot.Deriv. 50 Tu/Ml Vial ID 08/21/24 10:01 X1 ONE Warfarin Sodium 2 mg 08/13/24 17:00 08/14/24 16:43 Jantoven 2 Mg Tablet PO 2 mg DINNER GENIE Administration Problem List Hyperlipidemia, unspecified (Acute) Type 2 diabetes mellitus with hyperglycemia (Acute) GERD (gastroesophageal reflux disease) (Acute) Hypothyroidism (Acute) Overactive bladder (Acute) B12 deficiency (Acute) Atrial fibrillation (Acute) Stroke (Acute) Debility (Acute) Depression (Acute) Obstructive sleep apnea (Acute) BPH (benign prostatic hyperplasia) (Acute) Essential hypertension (Acute) CAD (coronary artery disease) (Acute) Vital Signs Temp Pulse Resp BP Pulse Ox O2 Del Method 97 F L 71 18 118/62 100 Room Air 08/14/24 08:56 08/14/24 08:56 08/14/24 08:56 08/14/24 08:56 08/14/24 08:56 08/14/24 08:56 Oxygen Delivery Method Room Air Weight: 86.137 kg Body Mass Index (BMI) 25.7 Sodium 141 mmol/L (133-145) 08/14/24 05:03 Potassium 4.7 mmol/L (3.3-5.1) 08/14/24 05:03 Chloride 105 mmol/L (98-108) 08/14/24 05:03 Carbon Dioxide 26.5 mmol/L (21.0-32.0) 08/14/24 05:03 Anion Gap 9 (5-15) 08/14/24 05:03 BUN 14 mg/dL (4-19) 08/14/24 05:03 Creatinine 1.11 mg/dL (0.70-1.20) 08/14/24 05:03 Est GFR (MDRD) Non-Af 66 (>60) 08/14/24 05:03 BUN/Creatinine Ratio 12.8 RATIO (10-20) 08/14/24 05:03 Glucose 132 mg/dL (70-99) H 08/14/24 05:03 Assessment/Plan: 1. Pain: acetaminophen 1000mg PO Q6H PRN pain 1-10. Resident has not had any PRN doses. Please continue to monitor for increased pain and PRN usage. 2. Bowel: senna/docusate 1T PO BID and magnesium citrate 300mL PO daily PRN constipation. No PRN doses given. Please continue to monitor for constipation and PRN usage. Last documented bowel movement was 08/14/24. 3. Stroke/atrial fibrillation: aspirin 81mg PO breakfast and warfarin 2mg PO dinner. Please continue to monitor for S/S of bleeding/stroke, hemoglobin (last 12.9g/dL) and INR (last 2 from 08/14/24). 4. Hypertension/chronic HFpEF: lisinopril 20mg PO daily, amlodipine 10mg PO daily and furosemide 20mg PO daily PRN edema. No PRN doses given. Please continue to monitor BP (118-62 and 144/70), potassium (last 4.7mmol/L), swelling, cough, renal function, edema and PRN usage. 5. Hyperlipidemia: atorvastatin 40mg PO QHS. Please continue to monitor lipid panel (last 11/24/23), LFTs (last 11/24/23) and muscle pain. 6. Hypothyroidism: levothyroxine 175mcg PO daily. Please continue to monitor TSH (last WNL 05/24/24) and S/S of hypo/hyperthyroidism. 7. Diabetes mellitus II: metformin XR 500mg PO BIDCM. Please continue to monitor glucose (last 119mg/dL), hemoglobin A1c (last 05/24/24 6.2%), GFR (last 66mL/min), diarrhea, nausea/vomiting and S/S of hypoglycemia. 8. GERD: pantoprazole 40mg PO daily. Please continue to monitor for S/S of GERD and diarrhea (BEERs). 9. BPH: tamsulosin 0.8mg PO daily. Please continue to monitor for S/S of BPH and BP. 10. Overactive bladder: tolterodine 2mg PO daily. Please continue to monitor for S/S of OAB, dry mouth, dementia/deliruim (BEERs). 11. Nutrition: multivitamin 1T PO daily. Please continue to monitor. Assessment/Plan for indications treated with psychotropic medications: 1. Major depression: fluoxetine 40mg PO daily. Please see physician note re garding GDR. Monitor for diarrhea, nausea, headache, anxiety or drowsiness, suicidal thoughts or behaviors (Boxed Warning), symptoms of bleeding, symptoms of serotonin syndrome (including agitation, confusion, hyperreflexia, rigidity/myoclonus, tremor, tachycardia, tachypnea), sodium levels (last Na =141mmol/L). Monitor for efficacy including resident symptoms, behaviors and indications of d istress. Monitor for tolerability including mental status, cognition, excessive sleepiness, withdrawal or decreased participation in activities and decline in physical functioning. Maximize use of nonpharmacologic/behavioral interventions to facilitate dose reduction or discontinuation as appropriate. Please evaluate the appropriateness of GDR unless contraindicated. If appropriate, GDR should be attempted in 2 separate quarters within the first year of use or admission to TCU. If GDR attempted, monitor resident symptoms/behaviors. Medical chart and medication regimen reviewed. The following medication irregularities or issues were identified: None Date Date of Note: 08/15/24 Documented by User: Dr. Tanmay Cruz MD 08/15/24 08:03 TCU RX Drug Regimen Review Provider Comments Provider responsibility Provider Comments to Recommendations by Pharmacy Agree
[2024-08-15 08:30] VITALS: BP 124/73; PULSE 71; RESP 18; TEMP 36.4; O2SAT 96
[2024-08-15] MEDS: Aspirin E.C. 81 MG Tablet PO (08:33)
[2024-08-15] MEDS: Ensure Plus High Protein 120 ML LIQUID PO ×3 (08:33→17:18)
[2024-08-15] MEDS: metFORMIN (XR) 500 MG Tablet PO ×2 (08:33→17:18)
[2024-08-15] MEDS: Senna/Docusate Sodium 1 Tablet PO ×2 (08:35→20:13)
[2024-08-15 12:38] VITALS: BMI 26.2
--- NOTE | 2024-08-15 15:18 | CASEMGMT ---
Social Work SW phoned again to complete initial assessment. SW verified/updated contacts. Discussed code status with . stated pts wishes are to be DNR-CCA, no intubation. SW notified nursing. SW educated to [employer] insurance with NRD 08/15 and continued stay is not guaranteed with each review; required 3-day notice for DC. Through further discussion, shared she had rotator cuff surgery last week, and cannot care for pt until she is fully recovered. SW explored alternative DC plans. Educated once [employer] cuts from TCU, it will not cover SNF stay. stated she believes pt pays for LTC coverage. SW offered to verify benefits. Though, if there is no LTC coverage, pt would pay OOP for room and board or apply for Medicaid if eligible. SW explored pt's finances and pt would be eligible for HYUN, though educated to [employer] life insurance policy if it is engel value. expressed understanding and inquired about estate recovery. SW educated. SW educated to referral to [facility] to submit HYUN application. SW offered list of SNFs in preferred geographical area, INN with pt?s insurance, including quality and resource data via [employer]. agreed to accept list at scheduled POC meeting tomorrow. SW encouraged to write down any questions for POC meeting tomorrow and this worker will assist. appreciative. SW will continue to follow. Lizeth Negrete MSW MEMBER SERVICES COORDINATOR
[2024-08-15 16:00] VITALS: BP 125/84; PULSE 74; RESP 17; TEMP 36.4; O2SAT 96
[2024-08-15] MEDS: Jantoven 2 MG Tablet PO (17:18)
[2024-08-16] MEDS: Aspirin E.C. 81 MG Tablet PO (09:25)
[2024-08-16] MEDS: metFORMIN (XR) 500 MG Tablet PO ×2 (09:25→17:35)
[2024-08-16] MEDS: Ensure Plus High Protein 120 ML LIQUID PO ×3 (09:25→17:36)
[2024-08-16] MEDS: Senna/Docusate Sodium 1 Tablet PO ×2 (09:28→21:41)
--- NOTE | 2024-08-16 10:54 | CASEMGMT ---
Social Work IDT met with patient, and son for care plan meeting. Discussed patient's progress in PT/OT/ST/SN/RDN. Educated to [facility] insurance with NRD 08/21 and continued stay is not guaranteed with each review. Provided pt/family with written communication of insurance process and copay coverage during stay. MANINDER reiterated the conversation with yesterday on plans for SNF and applying for Medicaid. interrupted this worker and is now adamantly denying the need for HYUN and a SNF. SW inquired who will be caring for pt at home. stated she will be doing it. SW noted is recovering from rotator cuff surgery and is wearing a sling that immobilizes her right shoulder/arm and that takes an extended time to recover fully. stated I'm a fast healer, honey. SW observed son burying his face in his hands. SW noted that if is wanting to take pt home and assist him, to attend therapy sessions to ensure comfort with home. Son inquired further about LTC coverage through [employer]. SW noted LTC is listed as active coverage but does not give any parameters to the coverage. SW will call [employer] after the holiday weekend to inquire about coverage. Educated that if pt DCs home, insurance will cover skilled HHC but not caregivers. SW offered list of nonskilled HHC agencies. denied stating she has an Quaker girl that comes to the house to help her. SW still provided with already printed SNF list through [facility], in case the DC plan changes or [employer] does cover SNF. Son agreed to get the information of insurance coverage first, then make a better informed decision. MANINDER will update family with information once known. MANINDER will continue to follow for DC planning. MANINDER canceled referral to [facility]. Lizeth Negrete PUBLIC HEALTH PHYSICIAN FIRST LINE PRODUCTION SUPERVISOR
[2024-08-16 16:00] VITALS: BP 142/80; PULSE 70; RESP 18; TEMP 36.2; O2SAT 96
[2024-08-16] MEDS: Jantoven 2 MG Tablet PO (17:35)
--- NOTE | 2024-08-17 03:14 | NURSING ---
wound care done as ordered, to Right great toe. Toe washed, pat dry, and bandaid applied. Pt tolerated well
[2024-08-17 06:11] LABS: Prothrombin Time (Protime)PT. 16.4 SECONDS (11.7-14.9)
[2024-08-17] MEDS: metFORMIN (XR) 500 MG Tablet PO ×2 (07:44→17:28)
[2024-08-17] MEDS: Aspirin E.C. 81 MG Tablet PO (07:44)
[2024-08-17] MEDS: Ensure Plus High Protein 120 ML LIQUID PO ×3 (07:45→17:28)
[2024-08-17 07:49] VITALS: BP 143/80; PULSE 62; RESP 16; TEMP 36.7; O2SAT 95
--- NOTE | 2024-08-17 10:03 | CASEMGMT ---
BIMS (01/29) and PHQ9 () interviews completed on this date for MDS assessment. LORENZO Bryant
--- NOTE | 2024-08-17 13:28 | MDS.RN ---
Pain assessment for MDS complete.
[2024-08-17 21:38] VITALS: BP 133/62; PULSE 65; RESP 18; TEMP 36.5; O2SAT 96
[2024-08-17] MEDS: Senna/Docusate Sodium 1 Tablet PO (21:40)
[2024-08-18 06:28] VITALS: BP 146/78; PULSE 67; RESP 16; TEMP 36.4; O2SAT 96
[2024-08-18 08:11] VITALS: BP 151/87; PULSE 71; RESP 16; TEMP 36.3; O2SAT 95
[2024-08-18] MEDS: Aspirin E.C. 81 MG Tablet PO (08:12)
[2024-08-18] MEDS: metFORMIN (XR) 500 MG Tablet PO ×2 (08:13→16:51)
[2024-08-18] MEDS: Senna/Docusate Sodium 1 Tablet PO ×2 (08:14→20:25)
[2024-08-18] MEDS: Ensure Plus High Protein 120 ML LIQUID PO ×3 (08:16→16:51)
[2024-08-19] MEDS: Aspirin E.C. 81 MG Tablet PO (08:25)
[2024-08-19] MEDS: metFORMIN (XR) 500 MG Tablet PO ×2 (08:25→17:16)
[2024-08-19] MEDS: Senna/Docusate Sodium 1 Tablet PO ×2 (08:25→20:01)
[2024-08-19] MEDS: Ensure Plus High Protein 120 ML LIQUID PO ×3 (08:25→17:16)
[2024-08-19 08:29] VITALS: BP 115/65; PULSE 84; RESP 16; TEMP 36.4; O2SAT 96
[2024-08-20 08:27] VITALS: BP 112/63; PULSE 75; RESP 16; TEMP 36.5; O2SAT 97
[2024-08-20] MEDS: Senna/Docusate Sodium 1 Tablet PO ×2 (08:32→19:55)
[2024-08-20] MEDS: metFORMIN (XR) 500 MG Tablet PO ×2 (08:32→17:03)
[2024-08-20] MEDS: Ensure Plus High Protein 120 ML LIQUID PO ×3 (08:32→17:03)
[2024-08-20] MEDS: Aspirin E.C. 81 MG Tablet PO (08:32)
[2024-08-21 05:37] LABS: Hematocrit 36.7 % (40-54); Hemoglobin 12.7 g/dL (13.0-16.5); Immature Granulocytes Count 0.040 X10^3/uL (0.0-0.0); Mean Corp Hgb Conc 34.6 g/dL (32-36); Mean Corpuscular Volume 96.6 fL (80-94); Mean Platelet Vol. 9.5 fl (6.2-12.0); NRBC Flagged by Analyzer 0 % (0-5); Platelet Count 169 K/mm3 (150-450); RBC Distribution Width CV 13.2 % (11.6-14.6); RBC Distribution Width SD 46.5 fl (35.1-43.9); Red Blood Count 3.80 M/mm3 (4.6-6.2); White Blood Count 7.1 K/mm3 (4.4-11.0)
[2024-08-21 05:46] LABS: Prothrombin Time (Protime)PT. 15.4 SECONDS (11.7-14.9)
[2024-08-21 06:30] LABS: Anion Gap 9 (5-15); BUN 22 mg/dL (4-19); BUN/Creat Ratio 19.0 RATIO (10-20); Calcium,Total 9.4 mg/dL (7.6-11.0); Carbon Dioxide 26.4 mmol/L (21.0-32.0); Chloride 104 mmol/L (98-108); Estimated Creatinine Clearance 55.32 ml/min (50-250); Glucose 113 mg/dL (70-99); Potassium 4.9 mmol/L (3.3-5.1)
[2024-08-21] MEDS: Ensure Plus High Protein 120 ML LIQUID PO ×3 (08:25→17:40)
[2024-08-21] MEDS: metFORMIN (XR) 500 MG Tablet PO ×2 (08:25→17:36)
[2024-08-21] MEDS: Aspirin E.C. 81 MG Tablet PO (08:26)
--- NOTE | 2024-08-21 08:33 | NURSING ---
Email Engineer Note; MDS for 08/20/2024 Complete
[2024-08-21] MEDS: Tuberculin,Purif.prot.deriv. 50 TU/ML Vial 0.1 ML ID (09:03)
[2024-08-21 10:14] VITALS: BP 128/76; PULSE 73; RESP 15; TEMP 36.8; O2SAT 99
[2024-08-21] MEDS: Senna/Docusate Sodium 1 Tablet PO (21:47)
[2024-08-22 08:10] VITALS: BP 125/82; PULSE 78; RESP 16; TEMP 36.6; O2SAT 96
[2024-08-22] MEDS: Aspirin E.C. 81 MG Tablet PO (08:15)
[2024-08-22] MEDS: Ensure Plus High Protein 120 ML LIQUID PO ×3 (08:15→17:56)
[2024-08-22] MEDS: metFORMIN (XR) 500 MG Tablet PO ×2 (08:15→17:56)
[2024-08-22] MEDS: Senna/Docusate Sodium 1 Tablet PO ×2 (08:16→22:24)
--- NOTE | 2024-08-22 08:40 | CASEMGMT ---
Addendum entered by Lizeth Negrete 08/22/24 11:32: CORRECTION: SW contacted [facility]. Original Note: Social Work SW contacted [employer] insurance and spoke with open claims representative Dane Blount (reference # for call [id number]). Dane provided pt's benefits. Pt does not have any LTC benefits. Pt has [facility] SNF benefits: no deductible; $20/day copay days 1-20; $214/day copay days 21-100; max OOP is $4150 and have met approx $3255 thus far. - SW phoned to update on above information. stated then she will take pt home at time of DC. SW confirmed does not want to puruse SNF or HYUN. SW inquired about private duty GEAR TESTER, but denied as they cannot afford that resource either. SW offered to attend therapy training, but gruffly denied stating she is a nurse and knows how to care for the pt. SW inquired about 's shoulder recovery. stated she starts therapy tomorrow. inquired about skilled HHC. SW educated to skilled HHC being an insurance covered service and this worker will coordinate at time of DC. appreciative. SW will continue to follow for DC planning. - SW also received a VM from pt's dtr, Imani, requesting return call to discuss pt's care, but noted she had a falling out with her mother and wants to get information directly from this worker. SW returned call but noted dtr is not listed as a contact and cannot share any information, but can listen to dtr. Dtr shared the family dynamic and have not spoken in over a year d/t pt/ not attending gdtr's wedding, with some additional details. Dtr wanted to ensure IDT is aware pt cannot read or write well, despite graduating from high school. Dtr noticed during her visit with pt that he was not eating, and she wanted to ensure pt was not needing to read a menu to select his food. SW appreciative of dtr's information. Lizeth Negrete ROOFING TECHNICIAN TOOL AND DIE ENGINEER
[2024-08-22 11:17] VITALS: BMI 25.9
--- NOTE | 2024-08-22 11:20 | CASEMGMT ---
Social Work SW received call from requesting to speak with this worker in pt's room. SW presented to pt's room and spoke with . stated she made a big decision, and that is to apply for Medicaid for pt and have him DC to a SNF. concluded she cannot care for pt at home at this condition. SW commended for decision and will assist with coordination. Provided with another SNF list via [facility] for to select preferences. - MANINDER sent update to Maria R at [facility]. Will continue to follow. Lizeth Negrete PROFESSOR OF BUSINESS ADMINISTRATION SECURITIES ATTORNEY
[2024-08-22 20:15] VITALS: RESP 16
[2024-08-23 05:05] VITALS: RESP 15
[2024-08-23] MEDS: Ensure Plus High Protein 120 ML LIQUID PO ×3 (08:10→17:43)
[2024-08-23] MEDS: Aspirin E.C. 81 MG Tablet PO (08:11)
[2024-08-23] MEDS: Senna/Docusate Sodium 1 Tablet PO ×2 (08:11→21:54)
[2024-08-23] MEDS: metFORMIN (XR) 500 MG Tablet PO ×2 (08:11→17:41)
[2024-08-23 08:16] VITALS: BP 121/68; PULSE 79; RESP 16; TEMP 36.5; O2SAT 97
--- NOTE | 2024-08-23 15:06 | CASEMGMT ---
Social Work requested to speak with this worker at pt's bedside. SW presented to pt's room. stated she selected SNF choices - [facility], [facility], [facility]. SW appreciative and will place referrals. Encouraged to tour SNFs. - Referrals placed via [facility]. Lizeth Negrete HOSIERY PAIRER EMPLOYMENT OFFICER
--- NOTE | 2024-08-23 15:55 | DS.PCM_ITS ---
Providers Date of Admission: 08/13/24 Primary Care Physician: Dr. Loni Reeder MD Reason For Visit: CVA Diagnosis Discharge Diagnosis (1) Debility: Status: Acute Code(s): R53.81 - Other malaise (2) Stroke: Status: Acute Code(s): I63.9 - Cerebral infarction, unspecified (3) Atrial fibrillation: Status: Acute Code(s): I48.91 - Unspecified atrial fibrillation (4) B12 deficiency: Status: Acute Code(s): E53.8 - Deficiency of other specified B group vitamins (5) Overactive bladder: Status: Acute Code(s): N32.81 - Overactive bladder (6) Hypothyroidism: Status: Acute Code(s): E03.9 - Hypothyroidism, unspecified (7) GERD (gastroesophageal reflux disease): Status: Acute Code(s): K21.9 - Gastro-esophageal reflux disease without esophagitis (8) Essential hypertension: Status: Acute Code(s): I10 - Essential (primary) hypertension (9) Depression: Status: Acute Code(s): F32.A - Depression, unspecified Qualifiers: Depression Type: major depressive disorder Major depression recurrence: unspecified whether recurrent Active/Remission status: remission status unspecified Qualified Code(s): F32.9 - Major depressive disorder, single episode, unspecified (10) Type 2 diabetes mellitus with hyperglycemia: Status: Acute Code(s): E11.65 - Type 2 diabetes mellitus with hyperglycemia (11) Hyperlipidemia, unspecified: Status: Acute Code(s): E78.5 - Hyperlipidemia, unspecified (12) BPH (benign prostatic hyperplasia): Status: Acute Code(s): N40.0 - Benign prostatic hyperplasia without lower urinary tract symptoms Qualifiers: Lower urinary tract symptom presence: symptoms absent Qualified Code(s): N40.0 - Benign prostatic hyperplasia without lower urinary tract symptoms (13) CAD (coronary artery disease): Status: Acute Code(s): I25.10 - Atherosclerotic heart disease of [place] coronary artery without angina pectoris Qualifiers: Coronary Disease-Associated Artery/Lesion type: bypass graft [place] vs. transplanted heart: [place] heart Associated angina: without angina Qualified Code(s): I25.810 - Atherosclerosis of coronary artery bypass graft(s) without angina pectoris (14) Obstructive sleep apnea: Status: Acute Code(s): G47.33 - Obstructive sleep apnea (adult) (pediatric) Plan 83 year old male with below past medical history hospitalized for stroke (right superior cerebellar), admitted to TCU with debility, here for rehabilitation, strengthening, prior to discharge home with . * Debility - PT/OT/ST. * Pain - Tylenol 1000mg q6 prn pain (1-10). * Bowel - senna/colace 1 tablet bid, Magnesium citrate 300mL daily prn. * Adult immunization - Administer pneumonia vaccine, covid vaccine, flu vaccine as appropriate. * DVT prophylaxis - Warfarin. * Hypertension - Lisinopril 20mg daily, Amlodipine 10mg daily. * Stroke - Aspirin 81mg daily, Warfarin 2mg, defer to Neurology whether Aspirin can be stopped. * Atrial fibrillation - Aspirin 81mg daily, Warfarin 2mgs, defer to Neurology whether Aspirin can be stopped. * Hyperlipidemia - Atorvastatin 40mg qhs. * Chronic HFpEF - Lisinopril 20mg daily, Furosemide 20mg daily prn. * Hypothyroidism - Levothyroxine 175mcg daily. * Diabetes Mellitus II - Metformin XR 500mg bidcm. * Nutrition - MVI 1 tablet daily. * GERD - Pantoprazole 40mg daily. * BPH - Tamsulosin 0.8mg daily. * Overactive bladder - Tolterodine 2mg daily. The following psychotropic medication was present on admission: Fluoxetine 40mg daily. Psychotropic medication therapy is indicated for a diagnosis of: Major depression. Based on my clinical evaluation, continuation of the medication is necessary at this time. Gradual dose reduction plan (select one): ____ GDR will be attempted. Will monitor patient symptoms and behaviors in response to GDR. __x__ GRD contraindicated. Reason contraindicated: stable chronic buttermaker helper use. Medications at Discharge Home Medications multivitamin (Daily Multi-Vitamin tablet) 1 tab PO DAILY VITAMIN 02/26/23 pantoprazole 40 mg tablet,delayed release 40 mg PO DAILY ACID REFLUX #90 TABLETS 05/22/24 fluoxetine 40 mg capsule 40 mg PO DAILY MOOD #90 caps 05/24/24 metformin 500 mg tablet,extended release 24 hr 500 mg PO BID DIABETES 3 months #180 tabs 05/24/24 tamsulosin 0.4 mg capsule 0.8 mg (2 x 0.4 mg) PO DAILY PROSTATE #180 caps 05/24/24 levothyroxine 175 mcg tablet 175 mcg PO DAILY THYROID #90 tabs 06/20/24 amlodipine 5 mg tablet 10 mg PO DAILY bp 08/13/24 aspirin 81 mg tablet,delayed release (Ecotrin Low Strength) 81 mg PO DAILY HEART HEALTH 08/13/24 atorvastatin 40 mg tablet 40 mg PO DAILY CHOLESTEROL 08/13/24 furosemide 20 mg tablet 20 mg PO DAILY PRN edema 08/13/24 lisinopril 10 mg tablet 20 mg PO DAILY bp 08/13/24 sennosides 8.6 mg-docusate sodium 50 mg tablet (Stimulant Laxative Plus) 1 tab PO BID #0 tabs 08/23/24 tolterodine 2 mg capsule,extended release 24 hr 2 mg PO DAILY #0 caps 08/23/24 warfarin 1 mg tablet (Jantoven) 3.5 mg (3.5 x 1 mg) PO DINNER #0 tabs 08/23/24 Hospital Course Operations None Procedures None Summary of Care Provided Minutes Spent on Discharge: 35 Hospital Course: 83 year old male with below past medical history hospitalized for stroke (right superior cerebellar), admitted to TCU with debility, here for rehabilitation, strengthening, prior to discharge home with . Discharge to [facility] 08/27/2024, intermediate, part B therapies. Physical Exam Const alert General Appearance: cooperative HEENT normocephalic Eyes PERRL and EOMs intact bilaterally Neck supple, no JVD and no carotid bruits Resp normal respiratory effort, normal air movement and clear to auscultation bilaterally Cardio regular rate and regular rhythm GI normal to inspection, nondistended, normoactive bowel sounds, non-tender and non-distended Extremity normal capillary refill General Extremity: Negative for edema Skin no rashes or lesions noted General Skin Exam: no breakdown Neuro moves all extremities Psych affect normal Appearance: appropriate Weight / BMI Weight Weight: 86.954 kg Body Mass Index (BMI) 25.9 ABG / Lab / Microbiology Data 08/21/24 05:11 08/21/24 05:11 Laboratory: Laboratory Results - last 24 hr 08/23/24 06:17: POC Glucose 103 D/C Instructions Discharge Diet: No restrictions Discharge Activity: Return to Normal Activity, May Shower and Use Walker Weight Bearing Status: Weight bearing as tolerated Call your doctor if you observe: Fever of 101 or Higher, Inability to urinate, Inability to have a bowel movement, Shortness of breath, Dizziness, Fainting spells, Swelling in the ankles, Chest pain and Uncontrolled pain DC O2, CPAP, BIPAP Needs Home O2 Discharge instructions: No Additional Instructions: Discharge to [facility] 08/27/2024, intermediate, part B therapies. Please Follow Up With: Vignesh Branham (Neurology) When: 4 weeks. Meaningful Use Info Meaningful Use Meaningful Use Diagnoses (Choose all that apply): Ischemic CVA CVA Therapy Assessed for PT,OT and/or ST?: Yes Ischemic Stroke Antithrombotic order at d/c?: Yes Dx of Atrial fib/flutter?: Yes Anticoagulant at discharge?: Yes Statin Dosing Therapy Reference: STATIN DOSE THERAPY REFERENCE: * Patients > 75 years receive moderate or high dose statin therapy. * Patients 75 years or YOUNGER should receive HIGH intensity statin dose unless contraindicated. You will be required to document reason for non-treatment if statin daily dose does not meet guidelines. HIGH DOSE STATIN THERAPY DAILY Atorvastatin > than or = to 40 mg Rosuvastatin > than or = to 20 mg Amlodipine + Atorvastatin > than or = to 2.5/40 mg Ezetimibe + Simvastatin 10/80 mg Simvastatin 80mg Statins at discharge?: Yes Primary Dx Acute Ischemic CVA?: Yes Discharge Plan Admission Admit Date/Time: 08/13/24 12:15 Primary Reason for Your Visit: Debility. Attending Provider: Tanmay Cruz Chi Primary Care Provider: Loni Reeder Instructions Additional Instructions / Restrictions: Discharge to [facility] 08/27/2024, intermediate, part B therapies. Discharge Orders/Prescriptions Prescriptions: New tolterodine 2 mg Capsule,Extended Release 24hr 2 mg PO DAILY Qty: 0 0RF sennosides-docusate sodium [Stimulant Laxative Plus] 8.6-50 mg Tablet 1 tab PO BID Qty: 0 0RF warfarin [Jantoven] 1 mg Tablet 3.5 mg PO DINNER Qty: 0 0RF Continued multivitamin [Daily Multi-Vitamin] Tablet 1 tab PO DAILY fluoxetine 40 mg capsule 40 mg PO DAILY Qty: 90 1RF metformin 500 mg tablet extended release 24 hr 500 mg PO BID 90 Days Qty: 180 1RF tamsulosin 0.4 mg capsule 0.8 mg PO DAILY Qty: 180 1RF atorvastatin 40 mg tablet 40 mg PO DAILY aspirin [Ecotrin Low Strength] 81 mg tablet,delayed release (DR/EC) 81 mg PO DAILY furosemide 20 mg tablet 20 mg PO DAILY PRN (Reason: edema) Patient Comments: GIVE IF PT HAS LEG SWELLING OR WT GAIN OF MORE THAN 5 LBS OR SOB amlodipine 5 mg tablet 10 mg PO DAILY lisinopril 10 mg tablet 20 mg PO DAILY pantoprazole 40 mg tablet,delayed release (DR/EC) 40 mg PO DAILY Qty: 90 1RF levothyroxine 175 mcg tablet 175 mcg PO DAILY Qty: 90 0RF Discontinued magoxide 400 mg PO mecobalamin (vitamin B12) 1,000 mcg tablet,disintegrating 1,000 mcg sublingual DAILY Rx Instructions: place tablet under tongue and allow to dissolve for at least30 secs before swallowing oxybutynin chloride 10 mg tablet extended release 24hr 10 mg PO QDAY rosuvastatin 20 mg tablet 20 mg PO QDAY Qty: 90 1RF warfarin [Jantoven] 2 mg tablet 2 mg PO DAILY Eliquis 5 mg tablet 5 mg PO BID Qty: 180 1RF Referrals / Follow Up: Loni Reeder MD [Primary Care Provider] - Disposition Disposition (needs filled in before D/C Order can be placed): NonSkilled NH/Intermed Care
--- NOTE | 2024-08-23 16:05 | TREXTCAR_ITS ---
Diet Diet Order/Speech Therapy: INPATIENT Hospital Diet / Speech Therapy Order(s) 08/13/24 12:21 Diet: Regular - General Food consistency:: Soft & Bite Sized Liquid Consistency:: Regular/Thin Routine Orders/Code Status Code Status: DNRCC-A (No intubation.) DC O2, CPAP, BIPAP needs Home O2 Discharge instructions: No Therapies Weight Bearing: Weight bearing as tolerated Extremity Affected:: Bilateral Lower Physical Therapy: Eval and Treat Occupational Therapy: Eval and Treat Speech Therapy: Eval and Treat Problem/Diagnosis (1) Debility: Status: Acute Code(s): R53.81 - Other malaise (2) Stroke: Status: Acute Code(s): I63.9 - Cerebral infarction, unspecified (3) Atrial fibrillation: Status: Acute Code(s): I48.91 - Unspecified atrial fibrillation (4) B12 deficiency: Status: Acute Code(s): E53.8 - Deficiency of other specified B group vitamins (5) Overactive bladder: Status: Acute Code(s): N32.81 - Overactive bladder (6) Hypothyroidism: Status: Acute Code(s): E03.9 - Hypothyroidism, unspecified (7) GERD (gastroesophageal reflux disease): Status: Acute Code(s): K21.9 - Gastro-esophageal reflux disease without esophagitis (8) Essential hypertension: Status: Acute Code(s): I10 - Essential (primary) hypertension (9) Depression: Status: Acute Code(s): F32.A - Depression, unspecified (10) Type 2 diabetes mellitus with hyperglycemia: Status: Acute Code(s): E11.65 - Type 2 diabetes mellitus with hyperglycemia (11) Hyperlipidemia, unspecified: Status: Acute Code(s): E78.5 - Hyperlipidemia, unspecified (12) BPH (benign prostatic hyperplasia): Status: Acute Code(s): N40.0 - Benign prostatic hyperplasia without lower urinary tract symptoms (13) CAD (coronary artery disease): Status: Acute Code(s): I25.10 - Atherosclerotic heart disease of [place] coronary artery without angina pectoris (14) Obstructive sleep apnea: Status: Acute Code(s): G47.33 - Obstructive sleep apnea (adult) (pediatric) Plan 83 year old male with below past medical history hospitalized for stroke (right superior cerebellar), admitted to TCU with debility, here for rehabilitation, strengthening, prior to discharge home with . * Debility - PT/OT/ST. * Pain - Tylenol 1000mg q6 prn pain (1-10). * Bowel - senna/colace 1 tablet bid, Magnesium citrate 300mL daily prn. * Adult immunization - Administer pneumonia vaccine, covid vaccine, flu vaccine as appropriate. * DVT prophylaxis - Warfarin. * Hypertension - Lisinopril 20mg daily, Amlodipine 10mg daily. * Stroke - Aspirin 81mg daily, Warfarin 2mg, defer to Neurology whether Aspirin can be stopped. * Atrial fibrillation - Aspirin 81mg daily, Warfarin 2mgs, defer to Neurology whether Aspirin can be stopped. * Hyperlipidemia - Atorvastatin 40mg qhs. * Chronic HFpEF - Lisinopril 20mg daily, Furosemide 20mg daily prn. * Hypothyroidism - Levothyroxine 175mcg daily. * Diabetes Mellitus II - Metformin XR 500mg bidcm. * Nutrition - MVI 1 tablet daily. * GERD - Pantoprazole 40mg daily. * BPH - Tamsulosin 0.8mg daily. * Overactive bladder - Tolterodine 2mg daily. The following psychotropic medication was present on admission: Fluoxetine 40mg daily. Psychotropic medication therapy is indicated for a diagnosis of: Major depression. Based on my clinical evaluation, continuation of the medication is necessary at this time. Gradual dose reduction plan (select one): ____ GDR will be attempted. Will monitor patient symptoms and behaviors in response to GDR. __x__ GRD contraindicated. Reason contraindicated: stable chronic fci use. Allergies/Procedures Done in Hospital Allergies No Known Allergies Allergy (Unverified 05/24/24 13:21) Procedures: None Type of Care/Length of Stay Estimated LOS: Convalescent Care Less Than 30 days Type of Care Needed: Intermediate Rehab Potential: Fair Prognosis: Fair Additional Orders/Day of Discharge Day of Discharge: 08/27/24 Dietary and Speech Recommendations Dietitian Recommendations/Changes: Continue liberal regular diet - consistency per PLASTER MIXER Continue 4 oz Ensure Plus High Protein tid w/ meals for increased nutrition if consumed - monitor need to continue as diet progresses. Follow Up Care Please Follow Up With: Vignesh Branham (Neurology) Please Follow Up With: Antonio Hardy (PCP) Discharge Plan Admission Admit Date/Time: 08/13/24 12:15 Primary Reason for Your Visit: Debility. Attending Provider: Tanmay Cruz Chi Primary Care Provider: Loni Reeder Instructions Additional Instructions / Restrictions: Discharge to [facility] 08/27/2024, intermediate, part B therapies. Discharge Orders/Prescriptions Prescriptions: New tolterodine 2 mg Capsule,Extended Release 24hr 2 mg PO DAILY Qty: 0 0RF sennosides-docusate sodium [Stimulant Laxative Plus] 8.6-50 mg Tablet 1 tab PO BID Qty: 0 0RF warfarin [Jantoven] 1 mg Tablet 3.5 mg PO DINNER Qty: 0 0RF Continued multivitamin [Daily Multi-Vitamin] Tablet 1 tab PO DAILY fluoxetine 40 mg capsule 40 mg PO DAILY Qty: 90 1RF metformin 500 mg tablet extended release 24 hr 500 mg PO BID 90 Days Qty: 180 1RF tamsulosin 0.4 mg capsule 0.8 mg PO DAILY Qty: 180 1RF atorvastatin 40 mg tablet 40 mg PO DAILY aspirin [Ecotrin Low Strength] 81 mg tablet,delayed release (DR/EC) 81 mg PO DAILY furosemide 20 mg tablet 20 mg PO DAILY PRN (Reason: edema) Patient Comments: GIVE IF PT HAS LEG SWELLING OR WT GAIN OF MORE THAN 5 LBS OR SOB amlodipine 5 mg tablet 10 mg PO DAILY lisinopril 10 mg tablet 20 mg PO DAILY pantoprazole 40 mg tablet,delayed release (DR/EC) 40 mg PO DAILY Qty: 90 1RF levothyroxine 175 mcg tablet 175 mcg PO DAILY Qty: 90 0RF Discontinued magoxide 400 mg PO mecobalamin (vitamin B12) 1,000 mcg tablet,disintegrating 1,000 mcg sublingual DAILY Rx Instructions: place tablet under tongue and allow to dissolve for at least30 secs before s wallowing oxybutynin chloride 10 mg tablet extended release 24hr 10 mg PO QDAY rosuvastatin 20 mg tablet 20 mg PO QDAY Qty: 90 1RF warfarin [Jantoven] 2 mg tablet 2 mg PO DAILY Eliquis 5 mg tablet 5 mg PO BID Qty: 180 1RF Referrals / Follow Up: Loni Reeder MD [Primary Care Provider] - Disposition Disposition (needs filled in before D/C Order can be placed): NonSkilled NH/Intermed Care (9) Depression Qualifiers: Depression Type: major depressive disorder Major depression recurrence: unspecified whether recurrent Active/Remission status: remission status unspecified Qualified Code(s): F32.9 - Major depressive disorder, single episode, unspecified (12) BPH (benign prostatic hyperplasia) Qualifiers: Lower urinary tract symptom presence: symptoms absent Qualified Code(s): N40.0 - Benign prostatic hyperplasia without lower urinary tract symptoms (13) CAD (coronary artery disease) Qualifiers: Coronary Disease-Associated Artery/Lesion type: bypass graft [place] vs. transplanted heart: [place] heart Associated angina: without angina Qualified Code(s): I25.810 - Atherosclerosis of coronary artery bypass graft(s) without angina pectoris
--- NOTE | 2024-08-23 16:10 | CASEMGMT ---
Addendum entered by Lizeth Negrete 08/24/24 08:07: Cot transport scheduled through [facility] for 1100. Addendum entered by Lizeth Negrete 08/23/24 17:48: PASRR completed in [facility]. DC paperwork sent to [facility]. Original Note: Social Work Insurance issued LCD 08/26, DC 08/27 still present in pt's room. Notified pt/ of DC date. SW provided [facility] to and educated to appeal rights. verbalized understanding and denied appeal. is agreeable to DC. SW informed pt that [facility] does not have beds; [facility] and [facility] can accept. 's [facility] is [facility]. SW to finalize, coordinate cot transport for 1100. appreciative. - SW updated all SNFs. Confirmed DC with [facility]. IDT updated. Plan: DC 08/27 to [facility], intermediate, Medicaid pending, part B therapies Lizeth Negrete DATA COMMUNICATIONS ENGINEER UTILITY SYSTEMS REPAIRER OPERATOR
[2024-08-24 06:25] LABS: Prothrombin Time (Protime)PT. 15.2 SECONDS (11.7-14.9)
[2024-08-24] MEDS: Ensure Plus High Protein 120 ML LIQUID PO ×3 (08:16→17:17)
[2024-08-24] MEDS: metFORMIN (XR) 500 MG Tablet PO ×2 (08:16→17:17)
[2024-08-24] MEDS: Aspirin E.C. 81 MG Tablet PO (08:16)
[2024-08-24] MEDS: Senna/Docusate Sodium 1 Tablet PO ×2 (08:16→21:16)
[2024-08-24 09:00] VITALS: BP 137/64; PULSE 72; RESP 16; TEMP 36.3; O2SAT 93
[2024-08-24 10:00] VITALS: RESP 16
--- NOTE | 2024-08-24 14:09 | MDS.RN ---
Information for the MDS was obtained from review of the clinical record, interview of resident, staff, and direct observation of resident?s care.
[2024-08-25 08:22] VITALS: BP 122/71; PULSE 68; RESP 16; TEMP 36.4; O2SAT 94
[2024-08-25] MEDS: Ensure Plus High Protein 120 ML LIQUID PO ×3 (08:23→18:41)
[2024-08-25] MEDS: metFORMIN (XR) 500 MG Tablet PO ×2 (08:24→18:41)
[2024-08-25] MEDS: Aspirin E.C. 81 MG Tablet PO (08:24)
[2024-08-25] MEDS: Senna/Docusate Sodium 1 Tablet PO ×2 (08:25→19:53)
--- NOTE | 2024-08-25 09:57 | CASEMGMT ---
Social Work SW completed BIMS (01/29) and PHQ-2 () for MDS assessment. Lizeth Negrete OIL HEATER INSTALLER SENIOR MAINFRAME DEVELOPER
[2024-08-26] MEDS: Ensure Plus High Protein 120 ML LIQUID PO ×3 (09:13→16:59)
[2024-08-26] MEDS: Aspirin E.C. 81 MG Tablet PO (09:14)
[2024-08-26] MEDS: metFORMIN (XR) 500 MG Tablet PO ×2 (09:14→16:58)
[2024-08-26] MEDS: Senna/Docusate Sodium 1 Tablet PO ×2 (09:16→21:46)
[2024-08-26 10:00] VITALS: PULSE 68; RESP 16
[2024-08-26 16:00] VITALS: BP 146/79; PULSE 80; RESP 18; TEMP 36.6; O2SAT 97
[2024-08-27 04:11] VITALS: PULSE 83; RESP 16; O2SAT 95
[2024-08-27] MEDS: Aspirin E.C. 81 MG Tablet PO (08:39)
[2024-08-27] MEDS: metFORMIN (XR) 500 MG Tablet PO (08:40)
[2024-08-27] MEDS: Senna/Docusate Sodium 1 Tablet PO (08:41)
[2024-08-27] MEDS: Ensure Plus High Protein 120 ML LIQUID PO (08:42)
[2024-08-27 12:00] VITALS: BP 174/77; PULSE 86; RESP 18; TEMP 36.6; O2SAT 97
--- NOTE | 2024-08-27 12:23 | NURSING ---
pt [facility] at 12[facility]07 pm to [facility]. report called and given to nurse.
== END 2024-08-27 12:02 | disposition intermediate care facility (04) | DRG 57 ==
PROVIDERS: Admitting Provider Family Medicine Geriatric Medicine; PCP Internal Medicine; Visit Provider Family Medicine Geriatric Medicine
DX: I69.322 Dysarthria following cerebral infarction (principal); I50.32 Chronic diastolic (congestive) heart failure; I25.810 Atherosclerosis of coronary artery bypass graft(s) without angina pectoris; I69.391 Dysphagia following cerebral infarction; I11.0 Hypertensive heart disease with heart failure; E11.65 Type 2 diabetes mellitus with hyperglycemia; E03.9 Hypothyroidism, unspecified; F32.9 Major depressive disorder, single episode, unspecified; Z95.2 Presence of prosthetic heart valve; I48.91 Unspecified atrial fibrillation; I69.392 Facial weakness following cerebral infarction; G47.33 Obstructive sleep apnea (adult) (pediatric); K21.9 Gastro-esophageal reflux disease without esophagitis; E78.5 Hyperlipidemia, unspecified; E53.8 Deficiency of other specified B group vitamins; Z79.01 Long term (current) use of anticoagulants; N40.0 Benign prostatic hyperplasia without lower urinary tract symptoms; Z79.899 Other long term (current) drug therapy; N32.81 Overactive bladder; Z79.890 Hormone replacement therapy; Z79.84 Long term (current) use of oral hypoglycemic drugs; Z95.1 Presence of aortocoronary bypass graft
CPT/HCPCS: 36415; 80048; 82962; 85025; 85610; 92507; 92523; 92526; 92610; 97110; 97112; 97116; 97162; 97166; 97530; 97535; 97802

== ENCOUNTER → 2024-12-05 | Outpatient (CLI) | payer MEDICARE, SELFPAY ==
[2024-12-05 16:12] LABS: PSA,Total- Diagnostic 9.56 ng/mL (0.00-4.00)
== END | disposition home or self-care (01) ==
PROVIDERS: PCP Internal Medicine; Referring Provider Urology; Visit Provider Urology
DX: C61 Malignant neoplasm of prostate (principal)
CPT/HCPCS: 36415; 84153